=== PATIENT | male | born 1970 | race Two or more races ===

== ENCOUNTER 2023-07-23 13:29 | Outpatient (OUT) | payer OTHER, SELFPAY ==
[2023-07-23 13:59] LABS: Basophils Percent Auto 0.3 % (0.2-2.0); Eosinophils Absolute Auto 0.2 10^3/uL (0.0-0.7); Eosinophils Percent Auto 2.5 % (0.9-7.0); Hematocrit 50.4 % (42.0-54.0); Hemoglobin 16.8 g/dL (14.0-18.0); Immature Granulocytes Abs Auto 0.02 10^3/uL (0.00-0.03); Immature Granulocytes Pct Auto 0.3 % (0.0-0.5); Lymphocytes Absolute Auto 1.4 10^3/uL (1.2-3.8); Lymphocytes Percent Auto 23.2 % (20.5-60.0); Mean Corpuscular HGB Conc 33.3 g/dL (29.9-35.2); Mean Corpuscular Hemoglobin 30.7 pg (25.9-34.0); Mean Platelet Volume 9.9 fL (9.5-13.5); Monocytes Absolute Auto 0.5 10^3/uL (0.3-0.8); Monocytes Percent Auto 7.5 % (1.7-12.0); Neutrophils Absolute Auto 4.1 10^3/uL (1.4-6.5); Neutrophils Percent Auto 66.2 % (43.0-75.0); Platelet Count 231 10^3/uL (150-450); Red Blood Count 5.48 10^6/uL (4.70-6.10); Red Cell Distribution Width 11.9 % (11.0-15.0); White Blood Count 6.1 10^3/uL (4.0-11.0)
[2023-07-23 14:35] LABS: Alanine Aminotransferase 34 U/L (16-63); Albumin Globulin Ratio 0.8; Albumin Level 3.3 g/dL (3.4-5.0); Alkaline Phosphatase 97 U/L (46-116); Anion Gap 7.5; Aspartate Amino Transferase 16 U/L (15-37); BUN Creatinine Ratio 10.1; Bilirubin Total 0.8 mg/dL (0.2-1.0); Calcium 8.5 mg/dL (8.5-10.1); Carbon Dioxide 31.5 mmol/L (21.0-32.0); Chloride 104 mmol/L (98-107); Chol HDL Ratio 4.7; Cholesterol 210 mg/dL (<=200); Estimated GFR (African America >60 (>=60); Estimated GFR (Non-African Ame >60 (>=60); Glucose 91 mg/dL (74-106); HDL Cholesterol 45 mg/dL (40-60); Sodium 139 mmol/L (136-145); TSH W/ REFLEX FT4 1.664 uIU/mL (0.358-3.740); Total Protein 7.3 g/dL (6.4-8.2); Triglycerides 76 mg/dL (<=150); VLDL CHOLESTEROL 15.2 mg/dL
[2023-07-23 14:41] LABS: Prostate Specific Antigen Dx 3.81 ng/mL (<=4.00)
[2023-07-23 15:20] LABS: Bilirubin Urine NEGATIVE (NEGATIVE); Blood Urine TRACE-L (NEGATIVE); Clarity Urine CLEAR (CLEAR); Color Urine LT. YELLOW (YELLOW); Glucose Urine UA NEGATIVE (NEGATIVE); Ketones Urine NEGATIVE (NEGATIVE); Leukocyte Esterase Urine NEGATIVE (NEGATIVE); Nitrite Urine NEGATIVE (NEGATIVE); Protein Urine NEGATIVE (NEG/TRACE); Specific Gravity Urine 1.025 (1.005-1.025); Urobilinogen Urine 0.2 EU/dL (0.2-1.0); pH Urine 6.5 (5.0-9.0)
[2023-07-23 15:26] LABS: Urine Microscopic Indicated YES
[2023-07-23 15:39] LABS: Mucus Urine NONE SEEN (NONE SEEN); Squamous Epithelial Cell Urine RARE #/LPF (NONE/RARE)
[2023-07-23 15:40] LABS: Bacteria Urine TRACE #/HPF (NONE SEEN); Cast Seen? NONE SEEN #/LPF (NONE SEEN); Crystals Seen? None Seen #/HPF (None Seen); Sperm Urine SEEN
[2023-07-25 04:07] LABS: PSA, Free 1.04 ng/mL; Prostate Specific Ag 3.5 ng/mL (0.0-4.0)
== END 2023-07-23 13:30 | disposition home or self-care (01) ==
LOC: LAB 13:29
PROVIDERS: PCP Nurse Practitioner; Visit Provider Nurse Practitioner
DX: Z12.5 Encounter for screening for malignant neoplasm of prostate (principal); E78.2 Mixed hyperlipidemia; Z72.0 Tobacco use; F31.9 Bipolar disorder, unspecified; R97.20 Elevated prostate specific antigen [PSA]
CPT/HCPCS: 36415; 80053; 80061; 81001; 84153; 84154; 84443; 85025

== ENCOUNTER 2023-09-18 12:42 | Outpatient (OUT) | payer OTHER, SELFPAY ==
--- OUTSIDE RECORDS SUMMARY | 2023-09-18 13:10 | XMS_ITS | CCD ---
Author Name Unknown Address [address] [place] [address] Organization [facility] Care Team Providers Care Surveillance Dual Rate Officer Name Role Phone KINJAL CHEW Unavailable Unavailable KINJAL CHEW Unavailable Unavailable Shobha Brooklynn J Primary Care Provider MD Hernandez Lares Jr Emergency Provider AICHHOLZ, LINE LEAD BROOKLYNN Attending Unavailable AICHHOLZ, LINE LEAD BROOKLYNN Consulting Unavailable AICHHOLZ, LINE LEAD BROOKLYNN Primary Care Unavailable AICHHOLZ, LINE LEAD BROOKLYNN Admitting Unavailable AICHHOLZ, LINE LEAD BROOKLYNN Attending Unavailable AICHHOLZ, LINE LEAD BROOKLYNN Consulting Unavailable AICHHOLZ, LINE LEAD BROOKLYNN Primary Care Unavailable AICHHOLZ, LINE LEAD BROOKLYNN Admitting Unavailable AICHHOLZ, LINE LEAD BROOKLYNN Primary Care Unavailable MISC, DOCTOR Attending Unavailable MISC, DOCTOR Consulting Unavailable MISC, DR QUIGLEY Admitting Unavailable Aichgavin, Brooklynn J Primary Care Provider MD Hernandez Lares Jr Emergency Provider MD Kevin Sheehan Attending Provider Kevin Sheehan Admitting Unavailable Kevin Sheehan Attending Unavailable Brooklynn Yeager Primary Care Unavailable Shobha Brooklynn Adi Primary Care Unavailable Hernandez Lares Jr Admitting Unavailable Hernandez Lares Jr Attending Unavailable Kevin Sheehan Admitting Unavailable Kevin Sheehan Attending Unavailable SHOBHA, BROOKLYNN Attending Unavailable Aichholz BEHAVIOR ANALYST, Brooklynn Unavailable Eusebio Schneider MD Primary Care Provider [phone] Shobha POUNCING LATHE OPERATOR-LINE LEAD, Brooklynn Joshi Primary Care Provider LIDA SUH Attending Unavailable BROOKLYNN YEAGER Primary Care Unavailable LIDA SUH Referring Unavailable BROOKLYNN YEAGER Primary Care Unavailable Allergies Allergy Classification Reported Allergen(s) Allergy Type Date of Onset Reaction(s) Facility (4 sources) Acetaminophen; Translations: [acetaminophen] Drug Allergy 09-04-19 23 Gastrointestinal Upset [facility] (6 sources) HYDROcodone; Translations: [hydrocodone] Drug Allergy 09-04-19 23 GI intolerance [facility] (1 source) Acetaminophen / HYDROcodone Drug Allergy [facility] (4 sources) Acetaminophen / HYDROcodone; Translations: [HYDROCODONE-ACET AMINOPHEN] Drug Allergy 09-04-19 24 [facility] [employer] [employer] [facility] Medications Current Medications Medication Drug Class(es) Dates Sig (Normalized) Sig (Original) atorvastatin 10 mg oral tablet (3 sources) HMG-CoA Reductase Inhibitor Start: 07-29-2023 End: 09-26-2023 take 1 tablet by mouth in the evening atorvastatin (Lipitor) 10 MG tablet Indications: Mixed hyperlipidemia (CMS/HCC) Take 1 tablet (10 mg) by mouth in the evening 30 tablet 2 08/27/2023 09/26/2023 Active citalopram 20 mg oral tablet (6 sources) Serotonin Reuptake Inhibitor Start: 08-21-2023 End: 11-19-2023 take 1 tablet by mouth in the morning citalopram (CeleXA) 20 mg tablet Take 1 tablet (20 mg total) by mouth in the morning. 0 08/21/2023 11/19/2023 Active Start: 10-22-2022 take 1 tablet by esau th once daily in the morning Citalopram (Celexa) 10 mg tablet Active 10 MG PO Every morning October 22, 2022 12:00am lamoTRIgine 100 mg oral tablet (6 sources) Mood Stabilizer, Anti-epileptic Agent Start: 05-21-2023 End: 11-19-2023 take 1 tablet by mouth in the morning lamoTRIgine (LaMICtal) 100 mg tablet Take 1 tablet (100 mg total) by mouth in the morning. 0 08/21/2023 11/19/2023 Active Start: 10-22-2022 take 1 tablet by esau th twice daily Lamotrigine (Lamictal) 25 mg tablet Active 25 MG PO Twice daily October 22, 2022 12:00am zolpidem tartrate 5 mg oral tablet (2 sources) gamma-Aminobutyric Acid-ergic Agonist Start: 07-24-2022 zolpidem (Ambien) 5 MG tablet Take 1 tablet by mouth as needed at bedtime 0 07/24/2022 Active Completed/Discontinued Medications Medication Drug Class(es) Dates Sig (Normalized) Sig (Original) acetaminophen 325 mg / oxyCODONE hydrochloride 5 mg oral tablet (3 sources) Opioid Agonist Start: 04-04-2020 End: 10-22-2022 take 1 tablet by mouth every six hours Oxycodone-Acetamin ophen Discontinued 1 TAB PO Q6H 28 7 April 04, 2020 October 22, 2022 2:09pm polyethylene glycol 3350 83098 mg powder for oral solution (3 sources) Osmotic Laxative Start: 09-05-2022 End: 10-22-2022 Polyethylene Glycol 3350 (Miralax) 17 gram/dose powder Discontinued 17 GM PO Daily 510 September 05, 2022 1:00am October 22, 2022 2:09pm Problems Active Problems Problem Classification Problem Date Documented Da te Episodic/Chronic Biliary tract disease (9 sources) Calculus of gallbladder with acute cholecystitis; Translations: [Calculus of gallbladder with acute cholecystitis without obstruction] 04-04-2020 Episodic Conditions associated with dizziness or vertigo (1 source) Dizziness and giddiness; Translations: [Dizziness and giddiness] Onset: 09-05-2022 Episodic Disorders of lipid metabolism (5 sources) Hyperlipidemia; Translations: [Hyperlipidemia, unspecified] Onset: 07-22-2023 07-22-2023 Chronic Diverticulosis and diverticulitis (2 sources) Diverticulitis; Translations: [Diverticulitis of intestine, part unspecified, without perforation or abscess without bleeding] Onset: 06-26-2023 06-26-2023 Chronic Genitourinary symptoms and ill-defined conditions (7 sources) Microscopic hematuria; Translations: [Other microscopic hematuria] Onset: 07-29-2023 07-29-2023 Episodic Intestinal obstruction without hernia (3 sources) Intussusception of intestine; Translations: [Intussusception] 04-04-2020 Episodic Malaise and fatigue (3 sources) Fatigue; Translations: [Other fatigue] 09-05-2022 Episodic Mood disorders (3 sources) Bipolar disorder; Translations: [Bipolar disorder, unspecified] Onset: 07-22-2023 08-21-2023 Chronic Other and unspecified benign neoplasm (1 source) Polyp of colon; Translations: [Polyp of colon] Onset: 10-03-2022 Episodic Other gastrointestinal disorders (3 sources) Constipation; Translations: [Constipation, unspecified] 09-05-2022 Episodic Other gastrointestinal disorders (2 sources) Chronic constipation; Translations: [Other constipation] Onset: 08-21-2023 08-21-2023 Episodic Other lower respiratory disease (3 sources) Snoring; Translations: [Snoring] 09-05-2022 Episodic Other screening for suspected conditions (not mental disorders or infectious disease) (12 sources) Encounter for screening, unspecified; Translations: [Patient encounter status] Onset: 09-18-2022 Episodic Other skin disorders (2 sources) Multiple skin tags; Translations: [Other hypertrophic disorders of the skin] Onset: 07-22-2023 07-22-2023 Episodic Residual codes; unclassified (3 sources) Daytime somnolence; Translations: [Other hypersomnia] 09-05-2022 Chronic Residual codes; unclassified (2 sources) Tobacco user; Translations: [Tobacco use] Onset: 07-22-2023 07-22-2023 Episodic Spondylosis; intervertebral disc disorders; other back problems (2 sources) Degeneration of lumbar intervertebral disc; Translations: [Other intervertebral disc degeneration, lumbar region] Onset: 08-21-2023 08-21-2023 Chronic Unclassified (3 sources) CONTACT W/AND (SUSP) EXPOS COVID-19; Translations: [CONTACT W/AND (SUSP) EXPOS COVID-19] Onset: 11-06-2021 Unclassified (1 source) Elevated PSA Onset: 09-04-2023 Past or Other Problems Problem Classification Problem Date Documented Da te Episodic/Chronic Other nutritional; endocrine; and metabolic disorders (4 sources) Polydipsia; Translations: [POLYDIPSIA] Onset: 03-08-2022 Episodic Unclassified (1 source) CONTACT W/AND (SUSP) EXPOS COVID-19; Translations: [CONTACT W/AND (SUSP) EXPOS COVID-19] Onset: 11-03-2021 Results Test Name Value Interpretation Reference Range Facility Cytologyon 09-04-2023 Cytology Normal [facility] Comment on above: Result Comment: [facility] [address] [place] [address] Cytology Consultation Patient Name:EBER ABREUOB:1970 (Age: 52)Gender:MTaken:4Reported:09/06/2023 18:36Physician(s):Lida Suh M.D. ([phone])Copy To: Rec. #:[id number]: #[id number] Final Cytologic Diagnosis Urine: Negative for high-grade urothelial cell carcinoma. ssi/09/06/2023 Interpretation performed at [facility], [address] [place] [address], License number: [id number].Electronically Signed Out By Brandt Rosas M.D. Clinical History Hematuria, microscopic (R31.29). Gross Description Received was 70 mL of yellow fluid unfixed labeled as [place], urine . CytoLyt added in lab. Source of Specimen Urine Non FARE COLLECTOR ThinPrep Fee Code(s): 1; 34839 Ruben 10-22-2022 L Specimen: [id number] Received: 10/22/22 Status: [facility] Sylvia Num: [id number] Spec Type: Surgical Subm Dr: Kevin Sheehan MD Tissues: A Lipoma (RIGHT FOREARM MASS) B Lipoma (RIGHT THIGH MASS) C Lipoma (LEFT THIGH MAS) Procedures: HE/3, Gross/Micro L3/3 Age/ Patient Sex Location Account Attending Physician Reno Abreu/M [place] [id number] Kevin Sheehan MD SPEC NUM: [id number] RECD: 10/22/22 STATUS: [facility] WARD NUM: [id number] ABBY: 10/22/22- [facility] DR: Kevin Sheehan MD ENTERED: 10/22/[address] [facility] [address]: RASHMI TYPE: Surgical DEPT: S ENTERED BY: [id number] RECV BY: [id number] ORDERED: HE/3, Gross/Micro L3/3 ORDERED: HE/3, Gross/Micro L3/3 Pathological Diagnosis A. Soft tissue, right forearm, mass, excision: - Changes consistent with lipoma. B. Soft tissue, right thigh, mass, excision: - Changes consistent with lipoma. C. Soft tissue, left thigh, mass, excision: - Changes consistent with lipoma. Clinical Information Multiple masses Gross Description A. Received in formalin labeled with the patient's name, number and right forearm mass is a 3.3 x 2.5 x 1.4 cm portion of yellow, lobular fat that is partially surface by a thin, translucent membrane. The specimen is inked and sectioned revealing a homogeneous, yellow- mosqueda cut surface. Gasket Supervisor sections are submitted in one cassette labeled A1. B. Received in formalin labeled with the patient's name, number and right thigh mass is a 3.5 x 3.5 x 1.6 cm portion of yellow, lobular fat that is partially surfaced by a thin, translucent membrane. The specimen is inked and sectioned revealing a homogeneous, yellow- Specimen: [id number] Received: 10/22/22 Status: [facility] Bassettflorencio Num: [id number] Spec Type: Surgical Subm Dr: Kevin Sheehan MD Tissues: A Lipoma (RIGHT FOREARM MASS) B Lipoma (RIGHT THIGH MASS) C Lipoma (LEFT THIGH MAS) Procedures: HE/3, Gross/Micro L3/3 Patient: Reno Abreu [id number] (Continued) Specimen: Received: 10/22/22 (Continued) Gross Description (Continued) Signed (signatur e on file) Eli New MD 10/23/22 1426 Specimen: Received: 10/22/22 Status: [facility] Ward Num: [id number] Spec Type: Surgical Subm Dr: Kevin Sheehan MD Tissues: A Lipoma (RIGHT FOREARM MASS) B Lipoma (RIGHT THIGH MASS) C Lipoma (LEFT THIGH MAS) Procedures: HE/3, Gross/Micro L3/3 Patient: Reno Abreu E [id number] (Continued) Specimen: Received: 10/22/22 (Continued) Gross Description (Continued) mosqueda cut surface. Gasket Supervisor sections are submitted in one cassette labeled B1. C. Received in formalin labeled with the patient's name, number and left thigh mass is a 5.5 x 3.0 x 2.1 cm portion of yellow, lobular fat that is partially surface by a thin, translucent membrane. The specimen is inked and sectioned revealing a homogeneous, yellow- mosqueda cut surface. Gasket Supervisor sections are submitted in one cassette labeled C1. Microscopic Description A. One glass slide with H E stained material has been examined. The microscopic findings support the above pathologic diagnosis. B. One glass slide with H E stained material has been examined. The microscopic findings support the above pathologic diagnosis. C. One glass slide with H E stained material has been examined. The microscopic findings support the above pathologic diagnosis. CPT Codes 10447?3 Specimen: [id number] Received: 10/22/22 Status: [facility] Ward Num: [id number] Spec Type: Surgical Subm Dr: Kevin Sheehan MD Tissues: A Lipoma (RIGHT FOREARM MASS) B Lipoma (RIGHT THIGH MASS) C Lipoma (LEFT THIGH MAS) Procedures: HE/3, Gross/Micro L3/3 (more content not included)... [facility] Ruben 10-03-2022 L Specimen: Received: 10/04/22 Status: [facility] Sylvia Num: [id number] Spec Type: Surgical Subm Dr: Kevin Sheehan MD Tissues: A Colon Biopsy (TRANSVERSE POLYP) Procedures: HE/2, Gross/Micro L4 Age/ Patient Sex Location Account Attending Physician Reno Abreu/Stefano MERINO [id number] Kevin Sheehan MD SPEC NUM: [id number] RECD: 10/04/22 STATUS: [facility] SYLVIA NUM: [id number] ABBY: 10/03/22- [facility] DR: Kevin Sheehan MD ENTERED: 10/04/[address]: [facility] SPEC TYPE: Surgical DEPT: S ORDERED: HE/2, Gross/Micro L4 ORDERED: HE/2, Gross/Micro L4 Pathological Diagnosis Colon, transverse, polyp, biopsy: - Fragments of tubulovillous adenoma. Clinical Information Family history of colon cancer Gross Description Received in formalin labeled with the patient's name, number and transverse polyp are multiple fragments of soft mosqueda tissue measuring 2.7 x 2.0 x 0.7 cm in aggregate. Entirely submitted in one cassette labeled A1. Microscopic Description Two glass slides with H E stained material have been examined. The microscopic findings support the above pathologic diagnosis. CPT Codes 47448 Specimen: [id number] Received: 10/04/22 Status: [facility] Ward Num: [id number] Spec Type: Surgical Subm Dr: Kevin Sheehan MD Tissues: A Colon Biopsy (TRANSVERSE POLYP) Procedures: HE/2, Gross/Micro L4 Patient: Reno Abreu [id number] (Continued) Signed (signatur e on file) Eli New MD 10/05/22 1132 Normal [facility] BOX TEST SENT OUTon 09-19-19 SENT TO REF LAB 09/18/2022 Normal [facility] Comment on above: Performed By: #### B OX #### [facility] [address] [place] [address] Dr. Pablo Blanchard COVID-19 / Flu A/B / RSV PCR on 09-05-2022 SARS-CoV-2 (COVID-19) RNA NANCIE+probe Ql (Unsp spec) COVID-19 Cepheid Result Negative for SARS-CoV-2 RNA by RT-PCR Flu A Cepheid Result Negative for Flu A RNA by RT-PCR Flu B Cepheid Result Negative for Flu B RNA by RT-PCR RSV Cepheid Result Negative for RSV RNA by RT-PCR COVID19 Blank Space Reference: Negative COVID19 Blank Space Cepheid Disclaimer The Cepheid Xpert Xpress CoV-2/Flu/RSV Plus has Cepheid Disclaimer not been FDA cleared or approved; this test has Cepheid Disclaimer been authorized by FDA under an EUA for use by Cepheid Disclaimer authorized laboratories; this test has been Cepheid Disclaimer authorized only for the simultaneous qualitative Cepheid Disclaimer detection and differentiation of nucleic acids from Cepheid Disclaimer SARS-CoV-2, influenza A, influenza B, and Cepheid Disclaimer respiratory syncytial virus (RSV), and not for any Cepheid Disclaimer other viruses or pathogens; and this test is only Cepheid Disclaimer authorized for the duration of the declaration that Cepheid Disclaimer circumstances exist justifying the authorization of Cepheid Disclaimer emergency use of in vitro diagnostic tests for Cepheid Disclaimer detection and/or diagnosis of COVID-19 under Cepheid Disclaimer Section 564(b)(1) of the Act, 21 U.S.C. 360bbb- Cepheid Disclaimer 3(b)(1), unless the authorization is terminated or Cepheid Disclaimer revoked sooner. PERFORMED BY: [place] [address] PATHOLOGIST RESIDENT MEDICAL OFFICER HIRNE KAPLAN M.D. Normal [facility] Comment on above: Performed By: #### C OVID19 FLU RSV, CEPHEID NEG #### [place] [id number] [facility] Cepheid COVID PCR Negativeon 09-05-2022 SARS-CoV-2 (COVID-19) RNA NANCIE+probe Ql (Unsp spec) Negative Normal Negative [facility] Comment on above: Result Comment: This is a duplicate Cepheid Xpert Xpress CoV-2/Flu/RSV Plus RNA by RT-PCR result to be used for statistical tracking purpose only. PERFORMED BY: [place] [address] PATHOLOGIST RESIDENT MEDICAL OFFICER HIREN KAPLAN M.D. Performed By: #### C OVID19 FLU RSV, CEPHEID NEG #### [place] [id number] [facility] Complete Blood Count Auto Di ffon 09-05-2022 Basophils (Bld) [#/Vol] 0.1 10*3/uL Normal 0.0-0.2 [facility] Comment on above: Result Comment: PERF ORMED BY: [place] [address] PATHOLOGIST RESIDENT MEDICAL OFFICER HIREN KAPLAN M.D. Performed By: #### C KMB, HS TROP, CBC, CK, CMP #### [address] Basophils/100 WBC (Bld) 0.7 % Normal . F [facility] Comment on above: Performed By: #### C KMB, HS TROP, CBC, CK, CMP #### [address] Eosinophils (Bld) [#/Vol] 0.2 10*3/uL Normal 0.0-0.45 [facility] Comment on above: Performed By: #### C KMB, HS TROP, CBC, CK, CMP #### [address] Eosinophils/100 WBC (Bld) 2.5 % Normal . [facility] Comment on above: Performed By: #### C KMB, HS TROP, CBC, CK, CMP #### [address] Erythrocyte distribution width (RBC) [Ratio] 13.1 % Normal 12.0-14.8 [facility] Comment on above: Performed By: #### C KMB, HS TROP, CBC, CK, CMP #### [address] Hematocrit (Bld) [Volume fraction] 45.8 % Normal 38.8-50.0 [facility] Comment on above: Performed By: #### C KMB, HS TROP, CBC, CK, CMP #### [address] Hemoglobin (Bld) [Mass/Vol] 15.6 g/dL Normal 13.0-17.0 [facility] Comment on above: Performed By: #### C KMB, HS TROP, CBC, CK, CMP #### [address] Lymphocytes (Bld) [#/Vol] 2.2 10*3/uL Normal 1.00-4.8 [facility] Comment on above: Performed By: #### C KMB, HS TROP, CBC, CK, CMP #### [address] Lymphocytes/100 WBC (Bld) 26.2 % Normal . [facility] Comment on above: Performed By: #### C KMB, HS TROP, CBC, CK, CMP #### [address] MCH (RBC) [Entitic mass] 30.7 pg Normal 27.5-35.2 [facility] Comment on above: Performed By: #### C KMB, HS TROP, CBC, CK, CMP #### [address] MCV (RBC) [Entitic vol] 89.9 fL Normal 83.5-101 F [facility] Comment on above: Performed By: #### C KMB, HS TROP, CBC, CK, CMP #### [address] Mean Corpuscular HGB Conc 34.1 g/dL Normal 32.5-35.6 [facility] Comment on above: Performed By: #### C KMB, HS TROP, CBC, CK, CMP #### [address] Monocytes (Bld) [#/Vol] 0.7 10*3/uL Normal 0.0-0.8 [facility] Comment on above: Performed By: #### C KMB, HS TROP, CBC, CK, CMP #### [address] Monocytes/100 WBC (Bld) 16.89 % Normal 0.00-20.00 [facility] Comment on above: Performed By: #### C KMB, HS TROP, CBC, CK, CMP #### [address] Monocytes/100 WBC (Bld) 8.1 % Normal . [facility] Comment on above: Performed By: #### C KMB, HS TROP, CBC, CK, CMP #### [facility] [address] Neutrophils (Bld) [#/Vol] 5.1 10*3/uL Normal 1.8-7.7 [facility] Comment on above: Performed By: #### C KMB, HS TROP, CBC, CK, CMP #### [address] Neutrophils/100 WBC (Bld) 62.5 % Normal . [facility] Comment on above: Performed By: #### C KMB, HS TROP, CBC, CK, CMP #### [address] NRBC% 0.1 /100{WBC} Normal 0-0.5 [facility] Comment on above: Performed By: #### C KMB, HS TROP, CBC, CK, CMP #### [address] Platelet mean volume (Bld) [Entitic vol] 7.8 fL Normal 6.6-10.1 [facility] Comment on above: Performed By: #### C KMB, HS TROP, CBC, CK, CMP #### [address] Platelets (Bld) [#/Vol] 224 10*3/uL Normal 150-450 [facility] Comment on above: Performed By: #### C KMB, HS TROP, CBC, CK, CMP #### [address] RBC (Bld) [#/Vol] 5.09 10*6/uL Normal 3.90-5.60 [facility] Comment on above: Performed By: #### C KMB, HS TROP, CBC, CK, CMP #### [address] WBC (Bld) [#/Vol] 8.2 10*3/uL Normal 4.1-10.5 [facility] Comment on above: Performed By: #### C KMB, HS TROP, CBC, CK, CMP #### [facility] [address] Comprehensive Metabolic Pane ruben 09-05-2022 Albumin [Mass/Vol] 3.6 g/dL Normal 3.2-5.5 [facility] Comment on above: Performed By: #### C KMB, HS TROP, CBC, CK, CMP ####[facility] Albumin/Globulin [Mass ratio] 1.2 {ratio} Normal [facility] Comment on above: Performed By: #### C KMB, HS TROP, CBC, CK, CMP ####[address] ALP [Catalytic activity/Vol] 85 U/L Normal 32-92 [facility] Comment on above: Performed By: #### C KMB, HS TROP, CBC, CK, CMP ####[address] ALT [Catalytic activity/Vol] 26 U/L Normal 10-60 [facility] Comment on above: Performed By: #### C KMB, HS TROP, CBC, CK, CMP ####[address] Anion gap [Moles/Vol] 15.6 mmol/L High 6.0-15.0 [facility] Comment on above: Performed By: #### C KMB, HS TROP, CBC, CK, CMP ####[address] AST [Catalytic activity/Vol] 22 U/L Normal 10-42 [facility] Comment on above: Performed By: #### C KMB, HS TROP, CBC, CK, CMP ####[address] Bilirubin [Mass/Vol] 0.6 mg/dL Normal 0.3-1.2 [facility] Comment on above: Performed By: #### C KMB, HS TROP, CBC, CK, CMP ####[address] [address] [facility] Calcium [Mass/Vol] 8.8 mg/dL Normal 8.2-10.2 [facility] Comment on above: Performed By: #### C KMB, HS TROP, CBC, CK, CMP ####[place] [id number] [place] [id number] [facility] Chloride [Moles/Vol] 101 mmol/L Normal 95-114 [facility] Comment on above: Performed By: #### C KMB, HS TROP, CBC, CK, CMP ####[place] [id number] [place] [id number] [facility] CO2 [Moles/Vol] 25.4 mmol/L Normal 22.0-30.0 [facility] Comment on above: Performed By: #### C KMB, HS TROP, CBC, CK, CMP ####[place] [id number] [facility] Creatinine [Mass/Vol] 1.01 mg/dL Normal 0.64-1.27 [facility] Comment on above: Performed By: #### C KMB, HS TROP, CBC, CK, CMP ####[address] Creatinine Clr Calc Pharmacy 116.51 [facility] Comment on above: Result Comment: PERF ORMED BY: [facility] [address] [facility] [place] [address] PATHOLOGIST RESIDENT MEDICAL OFFICER HIREN KAPLAN M.D. Performed By: #### C KMB, HS TROP, CBC, CK, CMP ####[place] [id number] [facility] Estimated GFR ( Tamara > 60 [facility] Comment on above: Result Comment: GFR estimated reference range: According to KDOQI guidelines, <60 ml/min/1.73m2 is sufficient to diagnose a patient with chronic kidney disease. Performed By: #### C KMB, HS TROP, CBC, CK, CMP ####[address] Estimated GFR (Non- Am > 60 [facility] Comment on above: Performed By: #### C KMB, HS TROP, CBC, CK, CMP ####[place] [id number] [facility] Globulin (S) [Mass/Vol] 2.9 g/dL Normal F [facility] Comment on above: Performed By: #### C KMB, HS TROP, CBC, CK, CMP ####[place] [id number] [facility] Glucose [Mass/Vol] 99 mg/dL Normal 70-100 [facility] Comment on above: Result Comment: [facility] Glucose Reference Range is dependent on time and content of last meal. Glucose of more than 200 mg/dL in a nonstressed, ambulatory subject supports the diagnosis of Diabetes Mellitus. ADA recommended reference range Performed By: #### C KMB, HS TROP, CBC, CK, CMP ####[address] Potassium [Moles/Vol] 4.0 mmol/L Normal 3.5-5.1 [facility] Comment on above: Performed By: #### C KMB, HS TROP, CBC, CK, CMP ####[place] [id number] [facility] Protein [Mass/Vol] 6.5 g/dL Normal 6.1-7.9 [facility] Comment on above: Performed By: #### C KMB, HS TROP, CBC, CK, CMP ####[place] [id number] [facility] Sodium [Moles/Vol] 138 mmol/L Normal 136-146 [facility] Comment on above: Performed By: #### C KMB, HS TROP, CBC, CK, CMP ####[place] [id number] [facility] Urea nitrogen [Mass/Vol] 13 mg/dL Normal 9-23 [facility] Comment on above: Performed By: #### C KMB, HS TROP, CBC, CK, CMP ####[place] [id number] [facility] Creatine Kinaseon 09-05-2022 CK [Catalytic activity/Vol] 72 U/L Normal 22-269 [facility] Comment on above: Performed By: #### C KMB, HS TROP, CBC, CK, CMP #### [facility] [address] [place] [id number] [place] Creatinine Kinase MBon 09-05 CK.MB [Mass/Vol] 0.7 ng/mL Normal 0.6-6.3 [facility] [facility] Comment on above: Performed By: #### C KMB, HS TROP, CBC, CK, CMP #### [facility] [address] CKMB Relative Index 0.9 % Normal 0.00-2.50 [facility] Comment on above: Performed By: #### C KMB, HS TROP, CBC, CK, CMP #### [facility] [address] Dipstick and Microscopicon 0 09-05-2022 Appearance (U) Clear Normal Clear [facility] Comment on above: Order Comment: Name Collection Type:: Clean-Voided Midstream Performed By: #### A DDONUAPLUS ####[address] Bacteria,Urine None Seen Normal None Seen [facility] Comment on above: Order Comment: Name Collection Type:: Clean-Voided Midstream Performed By: #### A DDONUAPLUS ####[place] [address] [place] Bilirubin,Urine Negative Normal Negative [facility] Comment on above: Order Comment: Name Collection Type:: Clean-Voided Midstream Performed By: #### A DDONUAPLUS ####[place] [id number] [place] Color (U) Yellow Normal Yellow [facility] Comment on above: Order Comment: Name Collection Type:: Clean-Voided Midstream Performed By: #### A DDONUAPLUS ####[place] [id number] [place] Glucose Ql (U) Normal Normal Normal [facility] Comment on above: Order Comment: Name Collection Type:: Clean-Voided Midstream Performed By: #### A DDONUAPLUS ####[address] [address] [place] Hyaline Casts,Urine None Seen Normal 0-8 [facility] Comment on above: Order Comment: Name Collection Type:: Clean-Voided Midstream Performed By: #### A DDONUAPLUS ####[address] [address] [facility] Ketones Ql (U) Trace High Negative [facility] Comment on above: Order Comment: Name Collection Type:: Clean-Voided Midstream Performed By: #### A DDONUAPLUS ####[address] [address] [facility] Leukocyte esterase Test strip Ql (U) Negative Normal Negative [facility] Comment on above: Order Comment: Name Collection Type:: Clean-Voided Midstream Performed By: #### A DDONUAPLUS ####[address] [address] [facility] Nitrite,Urine Negative Normal Negative [facility] Comment on above: Order Comment: Name Collection Type:: Clean-Voided Midstream Performed By: #### A DDONUAPLUS ####[address] [address] [facility] Occult Blood,Urine Negative Normal Negative [facility] Comment on above: Order Comment: Name Collection Type:: Clean-Voided Midstream Result Comment: PERF ORMED BY: [facility] [address] [place] [phone] PATHOLOGIST RESIDENT MEDICAL OFFICER HIREN KAPLAN M.D. Performed By: #### A DDONUAPLUS ####[address] [address] [facility] pH (U) 6.0 [pH] Normal 5.0-9.0 [facility] Comment on above: Order Comment: Name Collection Type:: Clean-Voided Midstream Performed By: #### A DDONUAPLUS ####[place] [id number] [facility] Protein (U) [Mass/Vol] 100 mg/dL High Negative [facility] Comment on above: Order Comment: Name Collection Type:: Clean-Voided Midstream Performed By: #### A DDONUAPLUS ####[place] [address] [place] [address] [facility] RBC,Urine 3-4 Normal 0-4 [facility] Comment on above: Order Comment: Name Collection Type:: Clean-Voided Midstream Performed By: #### A DDONUAPLUS ####[address] [address] [facility] Specificy Forest,Urine 1.027 Normal 1.001-1.030 [facility] Comment on above: Order Comment: Name Collection Type:: Clean-Voided Midstream Performed By: #### A DDONUAPLUS ####[address] [address] [facility] Sperm,Urine 3-4 High 0-2 [facility] Comment on above: Order Comment: Name Collection Type:: Clean-Voided Midstream Result Comment: PERF ORMED BY: [facility] [address] [place] [address] PATHOLOGIST RESIDENT MEDICAL OFFICER HIREN KAPLAN M.D. Performed By: #### A DDONUAPLUS ####[address] [address] [facility] Squamous Epithelial Cell,Urine None Seen Normal 0-2 [facility] Comment on above: Order Comment: Name Collection Type:: Clean-Voided Midstream Performed By: #### A DDONUAPLUS ####[address] [address] [facility] Urobilinogen,Urine Normal Normal Normal [facility] Comment on above: Order Comment: Name Collection Type:: Clean-Voided Midstream Performed By: #### A DDONUAPLUS ####[address] [address] [facility] WBC,Urine 3-4 Normal 0-4 [facility] Comment on above: Order Comment: Name Collection Type:: Clean-Voided Midstream Performed By: #### A DDONUAPLUS ####[facility] [place] [id number] [place] ECG 12 lead ECGon 09-05-2022 ECG 12 lead ECG [facility] [place] [place] [address] Electrocardiograph Report Signed Patient: Reno Abreu MR#: [id number] 5 : 1970 Acct:[id number] Age/Sex: 51 / M ADM Date: 09/04/22 Loc: ER Room: Type: [facility] ER Attending Dr: Ordering Provider: Hernandez Lares Jr, MD Date of Service: 09/04/22 ECG/ECG 12 lead ECG: Dizziness Copies to: Test Reason : Blood Pressure : 123/084 mmHG Vent. Rate : 072 BPM Atrial Rate : 072 BPM P-R Int : 144 ms QRS Dur : 090 ms QT Int : 398 ms P-R-T Axes : 047 -11 016 degrees QTc Int : 435 ms Normal sinus rhythm Low voltage QRS Borderline ECG No previous ECGs available Confirmed by HERNANDEZ LARES MD ([id number]) on 09/05/2022 4:12:57 AM Referred By: Electronically Signed By:HERNANDEZ LARES MD Transcribed By: MUS Signed By Hernandez Lares Jr, MD [id number] Normal [facility] Troponin I High Sensitivityo n 09-05-2022 Troponin I High Sensitivity < 3 Normal 0-20 [facility] Comment on above: Result Comment: PERF ORMED BY: [place] [address] PATHOLOGIST RESIDENT MEDICAL OFFICER HIREN KAPLAN M.D. Performed By: #### C KMB, HS TROP, CBC, CK, CMP #### [facility] [address] [place] [address] XR abdomen min 2Von 09-05-19 23 XR abdomen min 2V [facility] [place] [address] XRay Report Signed Patient: Reno Abreu MR#: [id number] 5 : 1970 Acct:[id number] Age/Sex: 51 / M ADM Date: 09/04/22 Loc: ER Room: Type: [facility] ER Attending Dr: Copies to: Hernandez Lares Jr, MD Ordering Provider: Hernandez Lares Jr, MD Date of Service: 09/04/22 XR/XR abdomen min 2V: constipated, fatigued, occas abd pain KUB. Reason for exam: Fatigue, constipation, abdominal pain. COMPARISON: CT abdomen and pelvis 04/02/2020. FINDINGS: Moderate amount stool burden is seen without evidence of obstruction. No free air. No suspicious urinary tract calcifications. Post cholecystectomy clips. Osseous structures demonstrate degenerative change. XR/XR abdomen min 2V IMPRESSION: Evidence of constipation. No acute process. Impression dictated by: Abilio Padilla Jr., D.O.09/05/2022 8:53 AM Dictation Location: [place] [address] Transcribed By: [facility] 09/05/22 0853 Dictated By: Abilio Padilla Jr, DO 09/05/22 0852 Signed By: 09/05/22 0853 Normal [facility] Aspartate aminotransferase [ Enzymatic activity/volume] in Serum or PlasmaOrdered By: Hernandez Lares on 09-04-2022 AST [Catalytic activity/Vol] 22 U/L 10-42 [facility] Automated erythrocytes count in urine sediment (number/area)Ordered By: Hernandez Lares on 09-04-2022 RBC Auto (Urine sed) [#/Area] 3-4 [HPF] 0-4 [facility] Automated leukocytes count i n urine sediment (number/area)Ordered By: Hernandez Lares on 09-04-2022 WBC Auto (Urine sed) [#/Area] 3-4 [HPF] 0-4 [facility] Basophils Auto (Bld) [#/Vol] Ordered By: Hernandez Lares on 09-04-2022 Basophils (Bld) [#/Vol] 0.1 10*3/uL 0.0-0.2 [facility] Basophils/100 WBC Auto (Bld) Ordered By: Hernandez Lares on 09-04-2022 Basophils/100 WBC (Bld) 0.7 % . [facility] Bilirubin Test strip Ql (U)O rdered By: Hernandez Lares on 09-04-2022 Bilirubin Ql (U) Negative Negative [facility] Body fluid albumin measureme nt (mass/volume)Ordered By: Hernandez Lares on 09-04-2022 Albumin (Body fld) [Mass/Vol] 3.6 g/dL 3.2-5.5 [facility] COVID CepheidOrdered By: Chapo roseanne Arnaud on 09-04-2022 SARS-CoV-2 (COVID-19) Ab IA Ql Negative Negative [facility] Comment on above: This is a duplicate dotCloud Xpert Xpress CoV-2/Flu/RSV Plus RNA by RT-PCR result to be used for statistical tracking purpose only. SARS-CoV-2 (COVID-19) RNA NANCIE+probe Ql (Unsp spec) [facility] SARS-CoV-2 (COVID-19) RNA NANCIE+probe Ql (Unsp spec) [facility] Color Auto (U)Ordered By: Brandon bowenssaba Arnaud on 09-04-2022 Color (U) Yellow Yellow [facility] Creatine kinase [Enzymatic a ctivity/volume] in Serum or PlasmaOrdered By: Hernandez Lares on 09-04-2022 CK [Catalytic activity/Vol] 72 U/L [facility] Creatine kinase.MB [Mass/vol ume] in Serum or PlasmaOrdered By: Hernandez Lares on 09-04-2022 CK.MB [Mass/Vol] 0.7 ng/mL 0.6-6.3 [facility] Creatinine and Glomerular fi ltration rate.predicted panel (S/P/Bld)Ordered By: Hernandez Lares on 09-04-2022 Creatinine [Mass/Vol] 1.01 mg/dL 0.64-1.27 [facility] Eosinophils Auto (Bld) [#/Vo l]Ordered By: Hernandez Lares on 09-04-2022 Eosinophils (Bld) [#/Vol] 0.2 10*3/uL 0.0-0.45 [facility] Eosinophils/100 WBC Auto (Bl d)Ordered By: Hernandez Lares on 09-04-2022 Eosinophils/100 WBC (Bld) 2.5 % . [facility] Erythrocyte distribution wid th Auto (RBC) [Ratio]Ordered By: Hernandez Lares on 09-04-2022 Erythrocyte distribution width (RBC) [Ratio] 13.1 % 12.0-14.8 [facility] Estimated glomerular filtrat ion rate (GFR) non- AmericanOrdered By: Hernandez Lares on 09-04-2022 GFR/1.73 sq M.predicted among non-blacks MDRD (S/P/Bld) [Vol rate/Area] > 60 mL/Min [facility] Globulin Calc (S) [Mass/Vol] Ordered By: Hernandez Lares on 09-04-2022 Globulin (S) [Mass/Vol] 2.9 g/dL [facility] Hematocrit Auto (Bld) [Volum e fraction]Ordered By: Hernandez Lares on 09-04-2022 Hematocrit (Bld) [Volume fraction] 45.8 % 38.8-50.0 [facility] Hemoglobin [Mass/volume] in BloodOrdered By: Hernandez Lares on 09-04-2022 Hemoglobin (Bld) [Mass/Vol] 15.6 g/dL 13.0-17.0 [facility] Ketones Auto test strip (U) [Mass/Vol]Ordered By: Hernandez Lares on 09-04-2022 Ketones (U) [Mass/Vol] Trace Negative [facility] - UrinalysisOrder ed By: Hernandez Lares on 09-04-2022 Hyaline casts LM Ql (Urine sed) None seen [LPF] 0-8 [facility] Leukocytes [#/volume] correc pooja for nucleated erythrocytes in Blood by Automated counOrdered By: Hernandez Lares on 09-04-2022 WBC corrected for nucl RBC Auto (Bld) [#/Vol] 8.2 10*3/uL 4.1-10.5 [facility] Lymphocytes Auto (Bld) [#/Vo l]Ordered By: Hernandez Lares on 09-04-2022 Lymphocytes (Bld) [#/Vol] 2.2 10*3/uL 1.00-4.8 [facility] Lymphocytes/100 WBC Auto (Bl d)Ordered By: Hernandez Lares on 09-04-2022 Lymphocytes/100 WBC (Bld) 26.2 % . [facility] MCH Auto (RBC) [Entitic mass ]Ordered By: Hernandez Lares on 09-04-2022 MCH (RBC) [Entitic mass] 30.7 pg 27.5-35.2 [facility] MCHC Auto (RBC) [Mass/Vol]Or dered By: Hernandez Lares on 09-04-2022 MCHC (RBC) [Mass/Vol] 34.1 g/dL 32.5-35.6 [facility] MCV Auto (RBC) [Entitic vol] Ordered By: Hernandez Lares on 09-04-2022 MCV (RBC) [Entitic vol] 89.9 fL 83.5-101 [facility] Monocyte distribution width [Entitic volume] in Blood by AutomatedOrdered By: Hernandez Lares on 09-04-2022 Monocyte distribution width Auto (Bld) [Entitic vol] 16.89 % 0.00-20.00 [facility] Monocytes Auto (Bld) [#/Vol] Ordered By: Hernandez Lares on 09-04-2022 Monocytes (Bld) [#/Vol] 0.7 10*3/uL 0.0-0.8 [facility] Monocytes/100 WBC Auto (Bld) Ordered By: Hernandez Lares on 09-04-2022 Monocytes/100 WBC (Bld) 8.1 % . [facility] Neutrophils Auto (Bld) [#/Vo l]Ordered By: Hernandez Lares on 09-04-2022 Neutrophils (Bld) [#/Vol] 5.1 10*3/uL 1.8-7.7 [facility] Neutrophils/100 WBC Auto (Bl d)Ordered By: Hernandez Lares on 09-04-2022 Neutrophils/100 WBC (Bld) 62.5 % . [facility] Nitrite Test strip Ql (U)Ord ered By: Hernandez Lares on 09-04-2022 Nitrite Ql (U) Negative Negative [facility] No Panel InformationOrdered By: Hernandez Lares on 09-04-2022 Estimated GFR () > 60 mL/Min [facility] Comment on above: GFR estimated refere nce range: According to KDOQI guidelines, <60 ml/min/1.73m2 is sufficient to diagnose a patient with chronic kidney disease. Pharmacy Creatinine Clearance (Chem 116.51 [facility] Nucleated erythrocytes [Pres ence] in Blood by Automated countOrdered By: Hernandez Lares on 09-04-2022 Nucleated RBC Auto Ql (Bld) 0.1 /100{WBC} 0-0.5 [facility] Platelet mean volume Auto (B ld) [Entitic vol]Ordered By: Hernandez Lares on 09-04-2022 Platelet mean volume (Bld) [Entitic vol] 7.8 fL 6.6-10.1 [facility] Platelets Auto (Bld) [#/Vol] Ordered By: Hernandez Lares on 09-04-2022 Platelets (Bld) [#/Vol] 224 10*3/uL 150-450 [facility] Protein Auto test strip (U) [Mass/Vol]Ordered By: Hernandez Lares on 09-04-2022 Protein (U) [Mass/Vol] 100 mg/dL Negative [facility] Protein [Mass/volume] in Ser um or PlasmaOrdered By: Hernandez Lares on 09-04-2022 Protein [Mass/Vol] 6.5 g/dL 6.1-7.9 [facility] RBC Auto (Bld) [#/Vol]Ordere d By: Hernandez Lares on 09-04-2022 RBC (Bld) [#/Vol] 5.09 10*6/uL 3.90-5.60 [facility] Serum or plasma alanine storey otransferase measurement without P-5'-P (enzymatic activiOrdered By: Hernandez Lares on 09-04-2022 ALT No additional P-5'-P [Catalytic activity/Vol] 26 U/L 10-60 [facility] Serum or plasma albumin/glob ulin mass ratioOrdered By: Hernandez Lares on 09-04-2022 Albumin/Globulin [Mass ratio] 1.2 {ratio} [facility] Serum or plasma alkaline alexandro sphatase measurement (enzymatic activity/volume)Ordered By: Hernandez Lares on 09-04-2022 ALP [Catalytic activity/Vol] 85 U/L 32-92 [facility] Serum or plasma anion gap de terminationOrdered By: Hernandez Lares on 09-04-2022 Anion gap [Moles/Vol] 15.6 mmol/L 6.0-15.0 [facility] Serum or plasma calcium angie urement (mass/volume)Ordered By: Hernandez Lares on 09-04-2022 Calcium [Mass/Vol] 8.8 mg/dL 8.2-10.2 [facility] Serum or plasma chloride rocio surement (moles/volume)Ordered By: Hernandez Lares on 09-04-2022 Chloride [Moles/Vol] 101 mmol/L 95-114 [facility] Serum or plasma creatine kin ase MB (CKMB)/total creatine kinase (CK) ratio by calculaOrdered By: Hernandez Lares on 09-04-2022 CK.MB Calc [Catalytic fraction] 0.9 % 0.00-2.50 [facility] Serum or plasma glucose angie urement (mass/volume)Ordered By: Hernandez Lares on 09-04-2022 Glucose [Mass/Vol] 99 mg/dL 70-100 [facility] Comment on above: ADA recommended refe rence rangeRandom Glucose Reference Range is dependent on time and content of last meal. Glucose of more than 200 mg/dL in a nonstressed, ambulatory subject supports the diagnosis of Diabetes Mellitus. Serum or plasma potassium me asurement (moles/volume)Ordered By: Hernandez Lares on 09-04-2022 Potassium [Moles/Vol] 4.0 mmol/L 3.5-5.1 [facility] Serum or plasma sodium measu rement (moles/volume)Ordered By: Hernandez Lares on 09-04-2022 Sodium [Moles/Vol] 138 mmol/L 136-146 [facility] Serum or plasma total biliru bin measurement (mass/volume)Ordered By: Hernandez Lares on 09-04-2022 Bilirubin [Mass/Vol] 0.6 mg/dL 0.3-1.2 [facility] Serum or plasma total carbon dioxide measurement (moles/volume)Ordered By: Hernandez Lares on 09-04-2022 CO2 [Moles/Vol] 25.4 mmol/L 22.0-30.0 [facility] Serum or plasma urea nitroge n measurement (mass/volume)Ordered By: Hernandez Lares on 09-04-2022 Urea nitrogen [Mass/Vol] 13 mg/dL 9-23 [facility] Specific gravity Auto test s trip (U) [Rel density]Ordered By: Hernandez Lares on 09-04-2022 Specific gravity (U) [Rel density] 1.027 1.001-1.030 [facility] Spermatozoa detection in uri ne sediment by light microscopyOrdered By: Hernandez Laers on 09-04-2022 Spermatozoa LM Ql (Urine sed) 3-4 [HPF] 0-2 [facility] Squamous epithelial cells de tection in urine sediment by light microscopyOrdered By: Hernandez Lares on 09-04-2022 Epithelial cells.squamous LM Ql (Urine sed) None seen [HPF] 0-2 [facility] Troponin I.cardiac [Mass/vol ume] in Serum or Plasma by High sensitivity methodOrdered By: Hernandez Lares on 09-04-2022 Troponin I.cardiac High sensitivity method [Mass/Vol] < 3 pg/mL 0-20 [facility] Urine bacteria detection by automated methodOrdered By: Hernandez Lares on 09-04-2022 Bacteria Auto Ql (U) None seen None Seen [facility] Urine clarity by refractomet ry automatedOrdered By: Hernandez Lares on 09-04-2022 Clarity Refractometry automated (U) Clear Clear [facility] Urine glucose measurement by automated test strip (mass/volume)Ordered By: Hernandez Lares on 09-04-2022 Glucose Auto test strip (U) [Mass/Vol] Normal mg/dL Normal [facility] Urine hemoglobin detection b y automated test stripOrdered By: Hernandez Lares on 09-04-2022 Hemoglobin Auto test strip Ql (U) Negative Negative [facility] Urine leukocyte esterase det ection by automated test stripOrdered By: Hernandez Lares on 09-04-2022 Leukocyte esterase Auto test strip Ql (U) Negative Negative [facility] Urobilinogen Auto test strip (U) [Mass/Vol]Ordered By: Hernandez Lares on 09-04-2022 Urobilinogen (U) [Mass/Vol] Normal mg/dL Normal [facility] WBC Auto (Bld) [#/Vol]Ordere d By: Hernandez Lares on 09-04-2022 WBC (Bld) [#/Vol] 8.2 10*3/uL 4.1-10.5 [facility] pH Auto test strip (U)Ordere d By: Hernandez Lares on 09-04-2022 pH (U) 6.0 [pH] 5.0-9.0 [facility] CBC AUTO DIFFon 03-08-2022 BASO # 0.0 103/ul Normal 0.0-0.1 [facility] Comment on above: Performed By: #### C BC #### [facility] [address] [place] [address] Dr. Pablo Blanchard Basophils/100 WBC (Bld) 0.4 % Normal 0.2-2.0 [facility] Comment on above: Performed By: #### C BC #### [facility] [address] [place] [address] Dr. Pablo Blanchard EO # 0.2 103/ul Normal 0.0-0.7 [facility] Comment on above: Performed By: #### C BC #### [facility] [address] [place] [address] Dr. Pablo Blanchard Eosinophils/100 WBC (Bld) 2.5 % Normal 0.9-7.0 [facility] Comment on above: Performed By: #### C BC #### [facility] [address] [place] [address] Dr. Pablo Blanchard Erythrocyte distribution width (RBC) [Ratio] 12.2 % Normal 11.0-15.0 [facility] Comment on above: Performed By: #### C BC #### [facility] [address] [place] [address] Dr. Pablo Blanchard Hematocrit (Bld) [Volume fraction] 49.2 % Normal 42.0-54.0 [facility] Comment on above: Performed By: #### C BC #### [facility] [address] [place] [address] Dr. Pablo Blanchard Hemoglobin (Bld) [Mass/Vol] 16.1 g/dL Normal 14.0-18.0 [facility] Comment on above: Performed By: #### C BC #### [facility] [address] [place] [address] Dr. Pablo Blanchard IG # 0.03 10e3/ul Normal 0.00-0.03 [facility] Comment on above: Performed By: #### C BC #### [facility] [address] [place] [address] Dr. Pablo Blanchard IG % 0.4 % Normal 0.0-0.5 [facility] Comment on above: Performed By: #### C BC #### [facility] [address] [place] [address] Dr. Pablo Blanchard LYMPH # 1.5 103/ul Normal 1.2-3.8 [facility] Comment on above: Performed By: #### C BC #### [facility] [address] [place] [address] Dr. aPblo Blanchard Lymphocytes/100 WBC (Bld) 20.1 % Critically low 20.5-60.0 [facility] Comment on above: Performed By: #### C BC #### [facility] [address] [place] [address] Dr. Pablo Blanchard MANUAL DIFF REQ NO Normal [facility] Comment on above: Performed By: #### C BC #### [facility] [address] [place] [address] Dr. Pablo Blanchard MCH (RBC) [Entitic mass] 30.4 pg Normal 25.9-34.0 [facility] Comment on above: Performed By: #### C BC #### [facility] [address] [place] [address] Dr. Pablo Blanchard MCHC (RBC) [Mass/Vol] 32.7 g/dL Normal 29.9-35.2 [facility] Comment on above: Performed By: #### C BC #### [facility] [address] [place] [address] Dr. Pablo Blanchard MCV (RBC) [Entitic vol] 92.8 fL Normal 80.0-94.0 [facility] Comment on above: Performed By: #### C BC #### [facility] [address] [place] [address] Dr. Pablo Blanchard MONO # 0.6 103/ul Normal 0.3-0.8 [facility] Comment on above: Performed By: #### C BC #### [facility] [address] [place] [address] Dr. Pablo Blanchard Monocytes/100 WBC (Bld) 8.1 % Normal 1.7-12.0 [facility] Comment on above: Performed By: #### C BC #### [facility] [address] [place] [address] Dr. Pablo Blanchard NEUT # 5.1 103/ul Normal 1.4-6.5 [facility] Comment on above: Performed By: #### C BC #### [facility] [address] [place] [address] Dr. Pablo Blanchard Neutrophils/100 WBC (Bld) 68.5 % Normal 43.0-75.0 [facility] Comment on above: Performed By: #### C BC #### [facility] [address] [place] [address] Dr. Pablo Blanchard Platelet mean volume (Bld) [Entitic vol] 9.2 fL Critically low 9.5-13.5 [facility] Comment on above: Performed By: #### C BC #### [facility] [address] [place] [address] Dr. Pablo Blanchard PLT 231 103/ul Normal 150-450 [facility] Comment on above: Performed By: #### C BC #### [facility] [address] [place] [address] Dr. Pablo Blanchard RBC 5.30 106/ul Normal 4.70-6.10 [facility] Comment on above: Performed By: #### C BC #### [facility] [address] [place] [address] Dr. Pablo Blanchard WBC 7.5 103/ul Normal 4.0-11.0 [facility] Comment on above: Performed By: #### C BC #### [facility] [address] [place] [address] Dr. Pablo Blanchard GLYCOHEMOGLOBIN A1Con 2021 ADA RECOMMENDATION SEE BELOW Normal [facility] Comment on above: Result Comment: ADA RECOMMENDED LIMIT 4.0 - 6.0 ADA THERAPEUTIC TARGET < 7.0 ACTION SUGGESTED > 7.0 Performed By: #### A 1C #### [facility] [address] [place] [address] Dr. Pablo Blanchard Glucose [Mass/Vol] 97 mg/dL Normal [facility] Comment on above: Performed By: #### A 1C #### [facility] [address] [place] [address] [address] Pablo Blanchard HbA1c (Bld) [Mass fraction] 5.0 % Normal 4.5-6.2 [facility] Comment on above: Performed By: #### A 1C #### [facility] [address] [place] [address] [address] Pablo Blanchard LIPID PROFILEon 03-08-2022 CHOL-HDL RATIO NORM SEE BELOW Normal [facility] Comment on above: Result Comment: 3.3 - 4.4 LOW RISK 4.4 - 7.1 AVERAGE RISK 7.1 - 11.0 MODERATE RISK >11.0 HIGH RISK Performed By: #### L IPID, CMP #### [facility] [address] [place] [address] Dr. Pablo Blanchard Cholesterol [Mass/Vol] 205 mg/dL Critically high <=200 [facility] Comment on above: Performed By: #### L IPID, CMP #### [facility] [address] [place] [address] [address] Pablo Blanchard Cholesterol in HDL [Mass/Vol] 40 mg/dL Normal 40-60 [facility] Comment on above: Performed By: #### L IPID, CMP #### [facility] [address] [place] [address] Dr. Pablo Blanchard Cholesterol in LDL [Mass/Vol] 150.6 mg/dL Normal [facility] Comment on above: Performed By: #### L IPID, CMP #### [facility] [address] [place] [address] [address] Pablo Blanchard Cholesterol.total/Choles terol in HDL [Mass ratio] 5.1 {ratio} Normal [facility] Comment on above: Performed By: #### L IPID, CMP #### [facility] [address] [address] [address] Pablo Blanchard HDL NORMAL > or = 60 mg/dl - LOW CARDIOVASCULAR RISK <40 mg/dl - HIGH CARDIOVASCULAR RISK Normal [facility] Comment on above: Performed By: #### L IPID, CMP #### [facility] [address] [address] [address] Pablo Blanchard LDL CALC NORMAL SEE BELOW Normal [facility] Comment on above: Result Comment: <100 mg/dl OPTIMAL 100 - 129 mg/dl NEAR OR ABOVE OPTIMAL 130 - 159 mg/dl BORDERLINE HIGH 160 - 189 mg/dl HIGH >190 mg/dl VERY HIGH Performed By: #### L IPID, CMP #### [facility] [address] [address] [address] Pablo Blanchard Triglyceride [Mass/Vol] 72 mg/dL Normal <=150 T [facility] Comment on above: Performed By: #### L IPID, CMP #### [facility] [address] [address] [address] Pablo Blanchard VLDL CALC 14.4 mg/dL Normal [facility] Comment on above: Performed By: #### L IPID, CMP #### [facility] [address] [address] [address] Palbo Blanchrad PROF 14(COMP METB)on 03-08- 022 Albumin [Mass/Vol] 3.3 g/dL Critically low 3.4-5.0 Th [facility] Comment on above: Performed By: #### L IPID, CMP #### [facility] [address] [place] [address] Dr. Pablo Blanchard Albumin/Globulin [Mass ratio] 1.0 {ratio} Normal [facility] Comment on above: Performed By: #### L IPID, CMP #### [facility] [address] [place] [address] Dr. Pablo Blanchard ALP [Catalytic activity/Vol] 98 U/L Normal 46-116 [facility] Comment on above: Performed By: #### L IPID, CMP #### [facility] [address] [place] [address] Dr. Pablo Blanchard ALT [Catalytic activity/Vol] 33 U/L Normal 16-63 [facility] Comment on above: Performed By: #### L IPID, CMP #### [facility] [address] [address] [address] Pablo Blanchard Anion gap [Moles/Vol] 9.4 mmol/L Normal [facility] Comment on above: Performed By: #### L IPID, CMP #### [facility] [address] [address] [address] Pablo Blanchard AST [Catalytic activity/Vol] 16 U/L Normal 15-37 [facility] Comment on above: Performed By: #### L IPID, CMP #### [facility] [address] [address] [address] Pablo Blanchard Bilirubin [Mass/Vol] 0.7 mg/dL Normal 0.2-1.0 [facility] Comment on above: Performed By: #### L IPID, CMP #### [facility] [address] [place] [address] Dr. Pablo Blanchard Calcium [Mass/Vol] 8.0 mg/dL Critically low 8.5-10.1 Th [facility] Comment on above: Performed By: #### L IPID, CMP #### [facility] [address] [place] [address] Dr. Pablo Blanchard Chloride [Moles/Vol] 104 mmol/L Normal 98-107 [facility] Comment on above: Performed By: #### L IPID, CMP #### [facility] [address] [place] [address] Dr. Pablo Blanchard CO2 [Moles/Vol] 30.5 mmol/L Normal 21.0-32.0 [facility] Comment on above: Performed By: #### L IPID, CMP #### [facility] [address] [place] [address] Dr. Pablo Blanchard Creatinine [Mass/Vol] 1.02 mg/dL Normal 0.70-1.30 [facility] Comment on above: Performed By: #### L IPID, CMP #### [facility] [address] [place] [address] Dr. Pablo Blanchard EGFR-AF COLOMBIAN >60 Normal >=60 [facility] Comment on above: Performed By: #### L IPID, CMP #### [facility] [address] [address] [address] Pablo Blanchard EGFR-NON AF COLOMBIAN >60 Normal >=60 [facility] Comment on above: Performed By: #### L IPID, CMP #### [facility] [address] [address] [address] Pablo Blanchard Globulin (S) [Mass/Vol] 3.4 g/dL Normal [facility] Comment on above: Performed By: #### L IPID, CMP #### [facility] [address] [address] [address] Pablo Blanchard Glucose [Mass/Vol] 108 mg/dL Critically high 74-106 [facility] Comment on above: Performed By: #### L IPID, CMP #### [facility] [address] [place] [address] Dr. Pablo Blanchard Potassium [Moles/Vol] 3.9 mmol/L Normal 3.5-5.1 [facility] Comment on above: Performed By: #### L IPID, CMP #### [facility] [address] [address] [address] Pablo Blanchard Protein [Mass/Vol] 6.7 g/dL Normal 6.4-8.2 [facility] Comment on above: Performed By: #### L IPID, CMP #### [facility] [address] [place] [address] Dr. Pablo Blanchard Sodium [Moles/Vol] 140 mmol/L Normal 136-145 [facility] Comment on above: Performed By: #### L IPID, CMP #### [facility] [address] [place] [address] Dr. Pablo Blanchard Urea nitrogen [Mass/Vol] 11.0 mg/dL Normal 7.0-18.0 [facility] Comment on above: Performed By: #### L IPID, CMP #### [facility] [address] [place] [address] Dr. Pablo Blanchard Urea nitrogen/Creatinine [Mass ratio] 10.8 mg/mg Normal [facility] Comment on above: Performed By: #### L IPID, CMP #### [facility] [address] [address] [address] Pablo Blanchard UA RANDOM W/MICROSCOPICon BACTERIA NONE SEEN Normal NONE SEEN [facility] Comment on above: Performed By: #### U AMIC #### [facility] [address] [address] [address] Pablo Blanchard Bilirubin Ql (U) Negative Normal NEGATIVE [facility] Comment on above: Performed By: #### U AMIC #### [facility] [address] [place] [address] Dr. Pablo Blanchard CAST NONE SEEN Normal NONE SEEN [facility] Comment on above: Performed By: #### U AMIC #### [facility] [address] [place] [address] Dr. Pablo Blanchard Clarity (U) CLEAR Normal CLEAR [facility] Comment on above: Performed By: #### U AMIC #### [facility] [address] [place] [address] Dr. Pablo Blanchard Color (U) YELLOW Normal YELLOW [facility] Comment on above: Performed By: #### U AMIC #### [facility] [address] [address] [address] Pablo Blanchard Crystals LM Nom (Urine sed) NONE SEEN Normal NONE SEEN [facility] Comment on above: Performed By: #### U AMIC #### [facility] [address] [place] [address] Dr. Pablo Blanchard Epithelial cells LM Ql (Urine sed) FEW Abnormal NONE SEEN /RARE [facility] Comment on above: Performed By: #### U AMIC #### [facility] [address] [place] [address] Dr. Pablo Blanchard Glucose Ql (U) Negative Normal NEGATIVE [facility] Comment on above: Performed By: #### U AMIC #### [facility] [address] [place] [address] Dr. Pablo Blanchard Hemoglobin Ql (U) Negative Normal NEGATIVE [facility] Comment on above: Performed By: #### U AMIC #### [facility] [address] [place] [address] Dr. Pablo Blanchard Ketones Ql (U) Negative Normal NEGATIVE [facility] Comment on above: Performed By: #### U AMIC #### [facility] [address] [place] [address] Dr. Pablo Blanchard LEUKOCYTES Negative Normal NEGATIVE [facility] Comment on above: Performed By: #### U AMIC #### [facility] [address] [place] [address] Dr. Pablo Blanchard MUCOUS NONE SEEN Normal NONE SEEN [facility] Comment on above: Performed By: #### U AMIC #### [facility] [address] [place] [address] Dr. Pablo Blanchard Nitrite Ql (U) Negative Normal NEGATIVE [facility] Comment on above: Performed By: #### U AMIC #### [facility] [address] [place] [address] Dr. Pablo Blanchard pH (U) 6.0 [pH] Normal 5-9 [facility] Comment on above: Performed By: #### U AMIC #### [facility] [address] [place] [address] Dr. Pablo Blanchard RBC 0-2 Normal 0-2 [facility] Comment on above: Performed By: #### U AMIC #### [facility] [address] [place] [address] Dr. Pablo Blanchard SPEC GRAVITY >=1.030 Abnormal 1.005-<=1.025 [facility] Comment on above: Performed By: #### U AMIC #### [facility] [address] [place] [address] Dr. Pablo Blanchard UA PROTEIN Negative Normal NEGATIVE/ TRACE [facility] Comment on above: Performed By: #### U AMIC #### [facility] [address] [place] [address] Dr. Pablo Blanchard Urobilinogen Qn (U) 1.0 {Kuldeep'U}/dL Normal 0.2 - 1. 0 [facility] Comment on above: Performed By: #### U AMIC #### [facility] [address] [place] [address] Dr. Pablo Blanchard WBC NONE SEEN Normal NONE SEEN [facility] Comment on above: Performed By: #### U AMIC #### [facility] [address] [place] [address] Dr. Pablo Blanchard Covid-19 PCR ([facility])on 10-14 SARS-CoV-2 (COVID-19) RNA NANCIE+probe Ql (Unsp spec) Not detected Normal NOT DETECTED [facility] Comment on above: Result Comment: This test is not yet approved or cleared by the [place] FDA. When there are no FDA-approved or cleared tests available, and other criteria are met, FDA can make tests available under an emergency access mechanism called an Emergency Use Authorization (EUA). The EUA for this test is supported by the Wet Roaster of Health and Human Service's (HHS's) declaration that circumstances exist to justify the emergency use of in vitro diagnostics for the detection and/or diagnosis of the virus that causes COVID-19. This EUA will remain in effect (meaning this test can be used) for the duration of the COVID-19 declaration justifying emergency of IVDs, unless it is terminated or revoked by FDA (after which the test may no longer be used). When diagnostic testing is negative, the possibility of a false negative should be considered in the context of a patient's recent exposures and the presence of clinical signs and symptoms consistent with SARS-CoV-2. Performed By: #### C VDTB #### [facility] [address] [place] [address] Dr. Pablo Blanchard CKon 02-04-2018 Creatine kinase (CK) 57 Int._Unit/L Normal 14-261 [facility] Comment on above: Performed By: #### 2 [id number], [id number] ####[facility] [address] [place] [address] CKMBon 02-04-2018 CREATINE KINASE.MB:CCNC:PT:SER/PL :QN:EIA 0.5 ng/mL Normal 0.3-4.9 [facility] Comment on above: Performed By: #### 2 [id number], [id number] ####[place] [address] [id number] CREATINE KINASE.MB:CCNC:PT:SER/PL :QN:EIA 0.8 ng/mL Normal 0.3-4.9 [facility] Comment on above: Performed By: #### 2 [id number], [id number], [id number] ####[address] [address] CREATINE KINASE.MB:CCNC:PT:SER/PL :QN:EIA 0.7 ng/mL Normal 0.3-4.9 [facility] Comment on above: Performed By: #### 2 748452, [id number], [id number] ####[address] [address] CMPon 02-04-2018 Albumin 1.2 g/dL Normal 1.1-2.2 [facility] Comment on above: Performed By: #### 2 [id number], [id number] ####[address] [address] Albumin 3.6 g/dL Normal 3.3-5.0 [facility] Comment on above: Performed By: #### 2 542149, [id number] ####[address] [address] Alkaline phosphatase (ALP) 71 Int._Unit/L Normal 21-98 [facility] Comment on above: Performed By: #### 2 [id number], [id number] ####[address] [address] ALT Without P-5'-P enzyme act/vol 29 Int._Unit/L Normal 6-46 [facility] Comment on above: Performed By: #### 2 060363, [id number] ####[address] [address] Aspartate aminotransferase (AST) 29 Int._Unit/L Normal 5-43 [facility] Comment on above: Performed By: #### 2 553181, [id number] ####[address] [place] [address] Bilirubin (total) 0.5 mg/dL Normal 0.0-1.1 [facility] Comment on above: Performed By: #### 2 [id number], [id number] ####[facility] [address] [place] [address] BUN/Creatinine Ratio 16 No Units Normal 10-20 [facility] Comment on above: Performed By: #### 2 373844, [id number] ####[facility] [address] [place] [address] Creatinine 1.0 mg/dL Normal 0.5-1.3 [facility] Comment on above: Performed By: #### 2 763214, [id number] ####[facility] [address] [place] [address] Globulin 2.9 g/dL Normal 1.4-4.0 [facility] Comment on above: Performed By: #### 2 368298, [id number] ####[facility] [address] [place] [address] Protein 6.5 g/dL Normal 6.0-7.8 [facility] Comment on above: Performed By: #### 2 884363, [id number] ####[facility] [address] [place] [address] Urea nitrogen 16 mg/dL Normal 5-21 [facility] Comment on above: Performed By: #### 2 058567, [id number] ####[facility] [address] [place] [address] Anion gap 14 mmol/L Normal 6-16 [facility] Comment on above: Performed By: #### 2 976000, [id number] ####[facility] [address] [place] [address] Calcium 8.8 mg/dL Low 8.9-11.1 [facility] Comment on above: Performed By: #### 2 208215, [id number] ####[facility] [address] [place] [address] Chloride 106 mmol/L Normal 101-111 [facility] Comment on above: Performed By: #### 2 456841, [id number] ####[facility] [address] [place] [address] CO2 23 mmol/L Normal 21-31 [facility] Comment on above: Performed By: #### 2 641085, [id number] ####[facility] [address] [place] [address] Glucose mass conc 86 mg/dL Normal 55-199 [facility] Comment on above: Result Comment: If t his glucose result represents a fasting glucose, interpretation should refer to the following reference range: 55-99 mg/dL Performed By: #### 2 816508, [id number] ####[facility] [address] [place] [address] Potassium molar conc 3.6 mmol/L Normal 3.5-5.3 [facility] Comment on above: Performed By: #### 2 968675, [id number] ####[facility] [address] [place] [address] Sodium 139 mmol/L Normal 135-145 [facility] Comment on above: Performed By: #### 2 068710, [id number] ####[facility] [address] [place] [address] Myoglobinon 02-04-2018 Myoglobin 18 ng/mL Normal <=69 [facility] Comment on above: Performed By: #### 2 410702, [id number], [id number], 7186719, [id number], [id number] ####[facility] [address] [place] [address] Myoglobin 42 ng/mL Normal <=69 [facility] Comment on above: Performed By: #### 2 768975, 7275622, [id number] ####[facility] [address] [place] [address] Myoglobin 17 ng/mL Normal <=69 [facility] Comment on above: Performed By: #### 2 812460, 4106571, [id number] ####[facility] [address] [place] [address] T4 Totalon 02-04-2018 Thyroxine (T4) 9.1 microgram/dL Normal 4.6-9.1 [facility] Comment on above: Performed By: #### 2 707127, [id number] ####[facility] [address] [place] [address] TSHon 02-04-2018 Thyroid stimulating hormone (TSH) 5.61 mcIU/mL High 0.34-5.60 [facility] Comment on above: Performed By: #### 2 073139, [id number] ####[facility] [address] [place] [address] Troponinon 02-04-2018 Troponin I.cardiac mass conc ng/mL Normal <=0.03 [facility] Comment on above: Result Comment: New Troponin Assay 11/26/13ROC ID Cutoff value > or = 0.03 ng/mL in conjunction with clinical conditions of myocardial infarction.([email or web address]/guidelines) Performed By: #### 2 051978, 8843237, [id number], 5454572, [id number], [id number] ####[facility] [address] [place] [address] Troponin I.cardiac mass conc ng/mL Normal <=0.03 [facility] Comment on above: Result Comment: New Troponin Assay 11/26/13ROC ID Cutoff value > or = 0.03 ng/mL in conjunction with clinical conditions of myocardial infarction.([email or web address]/guidelines) Performed By: #### 2 625001, [id number], [id number] ####[facility] [address] [place] [address] Troponin I.cardiac mass conc ng/mL Normal <=0.03 [facility] Comment on above: Result Comment: New Troponin Assay 11/26/13ROC ID Cutoff value > or = 0.03 ng/mL in conjunction with clinical conditions of myocardial infarction.([email or web address]/guidelines) Performed By: #### 2 100106, 4445262, [id number] ####[facility] [address] [place] [address] eGFRon 02-04-2018 eGFR (black) mL/min/{1.73_m2} Normal >=59 [facility] Comment on above: Order Comment: Order added by Discern Expert. Result Comment: eGFR is race adjusted. AA=. Performed By: #### 2 161837, [id number] ####[facility] [address] [place] [address] eGFR (non-black) mL/min/{1.73_m2} Normal >=59 [facility] Comment on above: Order Comment: Order added by Discern Expert. 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 Kidney failure is indicated at less than 15 mL/min/1.73m2. Performed By: #### 2 735915, [id number] ####[facility] [address] [place] [address] Vital Signs Date Time Vital Sign Value Performing Clinician [place] [facility] 09-04-2023 14:11-0500 Body height 188 cm Lida Suh MD Work Phone: [facility] 09-04-2023 14:11-0500 Body mass index (BMI) [Ratio] 31.46 kg/m2 Lida Suh MD Work Phone: [facility] 09-04-2023 14:11-0500 Body weight 111.13 kg Lida Suh MD Work Phone: [facility] 09-04-2023 14:11-0500 Diastolic blood pressure 75 mm[Hg] Lida Suh MD Work Phone: [facility] 09-04-2023 14:11-0500 Heart rate 76 /min Lida Suh MD Work Phone: [facility] 09-04-2023 14:11-0500 Systolic blood pressure 116 mm[Hg] Lida Suh MD Work Phone: [facility] [place] [place] [employer] [facility] 10-22-2022 15:54-0400 Diastolic blood pressure 46 mm[Hg] Brooklynn Aichholz Work Phone: [facility] 10-22-2022 15:54-0400 Heart rate 69 /min Brooklynn Aichholz Work Phone: [facility] 10-22-2022 15:54-0400 Respiratory rate 16 /min Brooklynn Aichholz Work Phone: [facility] 10-22-2022 15:54-0400 SaO2% (BldA) [Mass fraction] 99 % Brooklynn Aichholz Work Phone: [facility] 10-22-2022 15:54-0400 Systolic blood pressure 97 mm[Hg] Brooklynn Aichholz Work Phone: [facility] 10-22-2022 14:07-0400 Body height 187.96 cm Brooklynn Aichholz Work Phone: [facility] 10-22-2022 14:07-0400 Body temperature 97.2 [degF] Brooklynn Aichholz Work Phone: [facility] 10-22-2022 14:07-0400 Body weight 113.39 kg Brooklynn Aichholz Work Phone: [facility] 09-04-2022 23:07-0500 Heart rate 73 /min Brooklynn Aichholz Work Phone: [facility] 09-04-2022 23:07-0500 Respiratory rate 18 /min Brooklynn Aichholz Work Phone: [facility] 09-04-2022 23:07-0500 SaO2% (BldA) [Mass fraction] 99 % Brooklynn Aichholz Work Phone: [facility] 09-04-2022 22:55-0500 Body temperature 97.7 [degF] Brooklynn Aichholz Work Phone: [facility] 09-04-2022 22:55-0500 Diastolic blood pressure 84 mm[Hg] Brooklynn Aichholz Work Phone: [facility] 09-04-2022 22:55-0500 Systolic blood pressure 123 mm[Hg] Brooklynn Aichholz Work Phone: [facility] 09-04-2022 22:11-0500 Body height 189.23 cm Brooklynn Aichholz Work Phone: [facility] 09-04-2022 22:11-0500 Body weight 117.4 kg Brooklynn Aichholz Work Phone: [facility] Encounters Encounter Date Encounter Type Care Provider Facility Start: 09-04-2023 End: 09-04-2023 ambulatory LIDA SUH [facility] Start: 09-04-2023 Telephone encounter Lida Suh MD [facility] Start: 09-04-2023 End: 09-04-2023 Office consultation new/estab patient 60 min Lida Suh MD Work Phone: [facility] Comment on above: Elevated PSA (Primar y Dx); Hematuria, microscopic Start: 09-04-2023 End: [facility] Start: 08-27-2023 Refill Brooklynn Chaddz BEHAVIOR ANALYST Work Phone: [facility] Comment on above: Mixed hyperlipidemia (CMS/HCC) (Primary Dx) Start: 08-21-2023 Telephone encounter Brooklynn Gabbie martinez BEHAVIOR ANALYST Work Phone: [facility] Start: 07-22-2023 End: 07-22-2023 ambulatory BROOKLYNN CHADDZ Not Available Start: 10-22-2022 End: 10-22-2022 ambulatory Kevin Sheehan Facility:[facility] Start: 10-22-2022 End: 10-22-2022 Admission to same day surgery center Brooklynn Yeager Work Phone: [facility] [place] Start: 10-22-2022 End: 10-22-2022 ambulatory Brooklynn Eagleholz Work Phone: [facility] Work Phone: Start: 10-03-2022 End: 10-03-2022 ambulatory Brooklynn Eagleholz Work Phone: [facility] Work Phone: Start: 10-03-2022 End: 10-03-2022 Departed Referred Brooklynn Eagledaltonvelia Work Phone: [facility] [place] Work Phone: Start: 09-18-2022 End: 09-19-2022 ambulatory LINE LEAD BROOKLYNN EAGLEHOLZ Facility:[facility] Start: 09-05-2022 End: 09-05-2022 Emergency department patient visit Brooklynn Joshi Wandajermainedaltonvelia Facility:[facility] Start: 09-04-2022 End: 09-05-2022 Emergency department patient visit Brooklynn Yeager Work Phone: [facility] Work Phone: Start: 03-08-2022 End: 03-09-2022 ambulatory LINE LEAD BROOKLYNN EAGLEHOLZ Facility:[facility] Start: 11-03-2021 End: 11-03-2021 ambulatory LINE LEAD BROOKLYNN EAGLEHOLZ Facility:[facility] Start: 02-04-2018 Patient encounter KINJAL Gresham ity:[facility] Start: 02-03-2018 Patient encounter KINJAL Gresham ity:[facility] Procedures Date Procedure Procedure Detail Performing Clinician Start: 10-22-2022 Excision of cyst Brooklynn A ichholz Work Phone: Start: 10-03-2022 Colonoscopy Brooklynn Gabbie martinez BEHAVIOR ANALYST Work Phone: Start: 09-04-2022 Plain X-ray abdomen Tawny orourke Shobha Work Phone: Start: 09-04-2022 SARS-CoV-2, Influenz a & RSV (PCR) Brooklynn Shobha Work Phone: Start: 03-08-2022 PSA screening LINE LEAD BROOKLYNN SHOBHA Comment on above: Performed By: #### P [facility] #### [facility] [address] [place] [address] Dr. Pablo Blanchard Plan of Treatment Date Care Activity Detail Author Start: 10-03-2032 Screening for malign ant neoplasm of colon [facility] Start: 09-04-2024 Adult BMI Screening Adult BMI Screen ing [facility] Start: 09-04-2024 Tobacco Screening Tobacco Screening [facility] Start: 11-04-2023 End: 11-04-2023 Patient encounter procedure 11/04/2023 2:45 PM EDT Office [facility] [address] [place] [id number] Lida Suh MD [address] [place] [address] [facility] Start: 10-22-2023 End: 09-03-2024 Prostatic specific antigen, diagnostic Prostatic specific antigen, diagnostic Lab Routine Elevated PSA Expected: 10/22/2023, Expires: 09/03/2024 [facility] Comment on above: Expected: 10/22/2023 , Expires: 09/03/2024 Start: 09-26-2023 End: 09-26-2023 Patient encounter procedure 09/26/2023 9:00 AM EDT Office Visit [facility] [address] [place] [id number] Brooklynn Yeager NP [address] [place] [id number] [facility] Start: 09-04-2023 End: 09-04-2024 CT Kidney and Ureter and Urinary bladder 3D post processing WO and W contrast IV CT urogram Imaging Routine Hematuria, microscopic Expected: 09/04/2023, Expires: 09/04/2024 [facility] Work Phone: Comment on above: Expected: 09/04/2023 , Expires: 09/04/2024 Start: 03-15-2023 COVID-19 Vaccine () COVID-19 Vaccine () [facility] Start: 03-15-2023 Influenza vaccination N [facility] Start: 10-22-2022 [facility] Start: 09-04-2022 Plain X-ray abdomen XR abdomen min 2 V [facility] Start: 09-04-2022 XR Abdomen Views [facility] Start: 1988 DTaP,Tdap and Td Vaccines (1 - Tdap) DTaP,Tdap and Td Vaccines (1 - Tdap) [facility] Start: 12-27-1987 Adult BMI Follow Up Plan Adult BMI Follow Up Plan [facility] Start: 1981 Depression Screening Depression Scre ening [facility] Start: 1969 Screening for malign ant neoplasm of colon [facility] Start: 1969 Tobacco Counseling Tobacco Counselin g [facility] End: 09-03-2024 Cytology Cytology Pathology and Cytology Routine Hematuria, microscopic 1 Occurrences starting 09/04/2023 until 09/03/2024 [facility] Comment on above: 1 Occurrences starti ng 09/04/2023 until 09/03/2024 Patient Education [facility] Work Phone: Patient referral [facility] Work Phone: Payers Date Payer Category Payer Private Health Insurance [facility] [id number] 2023-Present [phone] [address] [place] [address] [id number] 2023 Medicaid [employer] [place] [id number] 2023-Present [address] [place] [address] [id number] 2022 Medicaid [id number] 1970 Unknown [id number]. [id number] 1969 Unknown [id number] [id number]. 2.593 1969 Unknown [id number] [id number]. 2.1259 1969 Unknown [id number] [id number]. 2.1259 1969 Unknown [id number] [id number]. 2.1286 1969 Unknown [id number] [id number]. 2.1286 1959 Self-pay [id number] 1959 Unknown [id number] Unknown [id number]. [id number] Unknown [id number] [id number]. 2.531 Unknown [id number] [id number]. 2.531 Unknown [id number]. 2.531 Social History Date Type Detail Facility Start: 09-04-2022 End: 10-22-2022 Tobacco smoking status WVIS Smoker (finding) [facility] Start: 1970 Sex Assigned At Male [facility] Start: 07-15-1988 End: 09-04-2023 Tobacco smoking status NHIS Smokes tobacco daily [facility] Start: 07-15-1988 History of tobacco use Cigarette Smo ker [facility] Start: 07-17-2023 End: 09-04-2023 Cigarettes smoked current (pack per day) - Reported 1 [facility] Start: 08-21-2023 Alcohol intake Ex-drinker (finding) [facility] Start: 07-22-2023 End: 09-04-2023 Tobacco use panel [facility] Start: 07-21-2023 Alcohol Comment caffeine 1-2 c ups per day [facility] Start: 1970 Sex Assigned At Not on file N [facility] Start: 09-04-2023 Tobacco use and exposure Smokeless tobacco non-user [facility] Start: 09-04-2023 Alcohol intake Lifetime non-d chasity (finding) [facility] Within the past 12 months we worried whether our food would run out before we got money to buy more. Never True [facility] Goals Date Patient Goal Desired Activity /State Clinical Notes 08-21-2023 to 09-04-2023 Telephone Encounter - Lida Suh MD - 09/04/2023 2:40 PM ESTTelephone Encounter - Lida Suh MD - 09/04/2023 2:40 PM ESTMicreji Suh MD - 09/04/2023 1:30 PM EST Note Date & Type Note Facility 09-04-2023 Miscellaneous Notes Formattin g of this note might be different from the original. Cysto potential retrograde pyelogram. [facility] [place]. Possible biopsy. Diagnosis is hematuria. documented in this encounter [facility] 09-04-2023 Telephone encount er Note Cysto potential retrograde pyelogram. [facility] [place]. Possible biopsy. Diagnosis is hematuria. [facility] 09-04-2023 Evaluation + Plan note Associated Problem(s): Hematuria, microscopic We reviewed today than any abnormality of the urinary tract including cancer, medical renal disease, infection, calculi, bleeding the diathesis, idiopathic, benign familial, BPH, or congenital anomaly could account for hematuria, and hence the importance of evaluation. The patient understands that all studies ordered must be completed in order to fully evaluate the urinary system. The patient acknowledges this and agrees. [facility] 09-04-2023 Miscellaneous Notes Associate d Problem(s): Hematuria, microscopic We reviewed today than any abnormality of the urinary tract including cancer, medical renal disease, infection, calculi, bleeding the diathesis, idiopathic, benign familial, BPH, or congenital anomaly could account for hematuria, and hence the importance of evaluation. The patient understands that all studies ordered must be completed in order to fully evaluate the urinary system. The patient acknowledges this and agrees. documented in this encounter [facility] 09-04-2023 History of Presen t illness Narrative Images from the original note were not included. [address] [place] [address] A [facility] [address] Patient: Reno Abreu Date of : 1970 Encounter Date: 09/04/2023 History of Present Illness: The patient is a 52 y.o. male, a new patient consultation, and is here for history of age elevation of PSA. He is 52. PSA 3.5. No prior instrumentation. UTI gross hematuria. Also microscopic hematuria through PCP evaluation. Smoking history as well. Urinalysis today: No results for input(s): EXTPOCURCO , EXTPOCURCH , EXTPOCAPP , EXTPOCURBS , EXTPOCURBIL , EXTPOCUKET , EXTPOCUSPG , EXTPOCUHGB , EXTPOCUPRO , EXTPOCUURO , EXTPOCULEU , EXTPOCUNIT , EXTPOCUWBC , EXTPOCUBLD , EXTPOCURBC , EXTPOCUCRY , EXTPOCUBAC , EXTPOCUTREP , EXTPOCUPH , EXTPOCULEE in the last 72 hours. Last BUN and creatinine: No results found for: BUN No results found for: CREATININE Last PSA: No results found for: PSA No results found for: PROSTATICSP Past Medical, Family, and Social History Update: The following portions of the patient's history were reviewed and updated as appropriate: allergies, current medications, past family history, past medical history, past social history, past surgical history and problem list. History reviewed. No pertinent past medical history. Past Surgical History: Procedure Laterality Date CHOLECYSTECTOMY 2020 History reviewed. No pertinent family history. Current Outpatient Medications Medication Sig Dispense Refill citalopram (CeleXA) 20 mg tablet Take 1 tablet (20 mg total) by mouth in the morning. lamoTRIgine (LaMICtal) 100 mg tablet Take 1 tablet (100 mg total) by mouth in the morning. No current facility-administered medications for this visit. (All medications reviewed and updated by provider since last office visit or hospitalization) Allergies: Vicodin [hydrocodone-acetaminophen] Tobacco History: Social History Tobacco Use Smoking Status Every Day Packs/day: .5 Types: Cigarettes Start date: 1988 Smokeless Tobacco Never (If patient a smoker, smoking cessation counseling offered) Social History: Social History Substance and Sexual Activity Alcohol Use Never Review of Systems: Constitutional: Normal activity and energy. Patient denies change in appetite, weight loss or gain, malaise (depression), chills, fever, or diaphoresis (sweating). Eyes: Patient denies vision changes or diplopia (double vision). Ears, Nose, Nose and Throat: Patient denies tinnitus (ringing in ears), hearing loss, epistaxis (nose bleed), hoarseness, and dysphagia (hard to swallow). Respiratory: Wheezing Cardiovascular: Chest Pain Gastrointestinal: Patient denies abdominal pain, nausea, vomiting, bloating, diarrhea (chronic), constipation (chronic), melena (black stool), hematochezia (blood in stool). Musculoskeletal: Backache Neurologic: Patient denies weakness, dizziness, loss of consciousness, transient ischemic symptoms, and seizures. Integument: Patient denies rashes and non-healing lesions. Psychiatric: Patient denies increased nervousness, mood changes, or depression. Endocrine: Patient denies thyroid trouble, heat or cold intolerance, diabetes, excessive thirst, hunger, and excessive urination. Blood Disorders: Patient denies anemia, easy bruising, and easy bleeding. Physical Exam: BP 116/75 Pulse 76 Ht 188 cm (6' 2 ) Wt 111.1 kg (245 lb) BMI 31.46 kg/m General Alert., Cooperative. Not in acute distress. Non-toxic. Orientation - Oriented X3. Head and Neck Normocephalic, atraumatic with no lesions. No abnormal movements. Trachea - midline. Integumentary Normal coloration of skin. Skin Moisture - normal skin moisture. Chest and Lung Exam Quiet, even and easy respiratory effort with no use of accessory muscles. Neurologic NON-focal Normal phallus, normal testes, no masses. Bilateral palpable vas deferens. Digital rectal exam: Benign feeling prostate. Borders are well demarcated. No nodules noted. Assessment and Plan: Reno was seen today for elevated psa. Diagnoses and all orders for this visit: Elevated PSA - Prostatic specific antigen, diagnostic; Future Hematuria, microscopic - CT urogram; Future - Cytology; Future Problem List High Hematuria, microscopic Overview ==== 09/04/2023 ==== microscopic hematuria. Through outside evaluation. Smoking history as well. Plan: Completion hematuria evaluation cytology CT urogram cystoscopy. Current Assessment & Plan We reviewed today than any abnormality of the urinary tract including cancer, medical renal disease, infection, calculi, bleeding the diathesis, idiopathic, benign familial, BPH, or congenital anomaly could account for hematuria, and hence the importance of evaluation. The patient understands that all studies ordered must be completed in order to fully evaluate the urinary system. The patient acknowledges this and agrees. Relevant Orders CT urogram Cytology Elevated PSA - Primary Overview ==== 09/04/2023 ==== history elevated PSA for his age. 3.5. Had previous PSA before little over 1 and then about 2 and half for so. No strong family history prostate carcinoma. Breast or ovarian carcinoma. Digital rectal exam benign feeling prostate. Certainly need to verify value. Repeat PSA 2 months return clinic. Relevant Orders Prostatic specific antigen, diagnostic Follow-up: Lida Suh MD 2 or more chronic urologic conditions addressed today. Equal to or greater than 3 distinct studies were ordered and or reviewed during this encounter Undiagnosed new problem with uncertain prognosis This note was created with the assistance of a speech recognition program. While intending to generate a timely document that accurately reflects the content of the visit, no guarantee can be provided that every grammatical or spelling mistake has been or will be identified or corrected. Thank you for your understanding. documented in this encounter [facility] 08-21-2023 Telephone encount er Note pt called needing a refill on his lamoTRIgine (LaMICtal) 100 MG tablet and citalopram (CeleXA) 20 MG tablet [facility] 08-21-2023 Miscellaneous Notes Formattin g of this note might be different from the original. pt called needing a refill on his lamoTRIgine (LaMICtal) 100 MG tablet and citalopram (CeleXA) 20 MG tablet documented in this encounter [facility] Evaluation note No assessment inform ation available [facility] Work Phone: Evaluation note Diagnosis Bipolar affective disorder, remission status unspecified (CMS/HCC)- Primary documented in this encounter [facility]* Diagnosis Mixed hyperlipidemia (CMS/HCC)- Primary Mixed hyperlipidemia documented in this encounter [facility]* Diagnosis Elevated PSA- Primary Elevated prostate specific antigen (PSA) Hematuria, microscopic Microscopic hematuria documented [facility] this encounter [facility] Additional Instructions As we discussed, your symptoms of excessive sleepiness during the day, persistent fatigue, and loud snoring suggest possible sleep apnea. Please follow up with your doctor about this as you may need to be referred for a sleep study. MiraLax may be used daily to stay regular and prevent constipation. May be taken twice daily until constipation is resolved.[facility] Work Phone: InstructionsNot on filedocumented in this encounter [facility] System[facility]ructionsNot on filedocumented in this encounter [facility] Summary Purpose Family History No Family History Records Found Relationship Condition Age at Onset Recorded Date/T clay Not Specified Mass of neck Unknown Heart valve disease Unknown father Unknown brother History of partial s urgical removal of colon Unknown Advance Directives No Advanced Directives Records Found Advance Directive Response Recorded Date/ Time Advance Directives No March 9:36pm Advance Directive Response Recorded Date/ Time Advance Directives No March 10:36pm Chief Complaint and Reason for Visit Chief Complaint Dizzy, Fatigue, Weak ness Chief Complaint Dizzy, Fatigue, Weak ness family HX of colon cancer Multiple Masses Reason for Referral Specialty Diagnoses / Procedures Referred By Helen hayes Referred To Contact Radiology Diagnoses Hematuria, microscopic Procedures CT urogram Lida Suh MD [address] [place] [address] Referral ID Status Reason Start Date Expiration Date V isits Requested Visits Authorized [id number] Pending Review 09/04/2023 09/03/2024 1 1 Additional Source Comments (unrecognized sect ion and content) No Status Records FoundNo Status Records FoundNo Status Records FoundNo Status Records FoundNo Status Records FoundNo Status Records Found INFORMATION SOURCE (unrecogn ized section and content) DATE CREATED AUTHOR 02/04/2018 [facility] DATE CREATED AUTHOR AUTHOR'S ORGANIZ ATION 10/02/2022 [facility] DATE CREATED AUTHOR AUTHOR'S ORGANIZ ATION 10/23/2022 [facility] DATE CREATED AUTHOR AUTHOR'S ORGANIZ ATION 07/22/2023 [facility] DATE CREATED AUTHOR AUTHOR'S ORGANIZ ATION 09/12/2023 [facility] DATE CREATED AUTHOR AUTHOR'S ORGANIZ ATION 09/12/2023 [facility] Care Teams (unrecognized sec tion and content) Team Status: Inactive Member Role Status Dates Brooklynn Yeager Primary Care Provider Active Hernandez Lares Jr, MD Emergency Provider Active Team Status: Active Member Role Status Dates Brooklynn Yeager Primary Care Provider Active Team Status: Inactive Member Role Status Dates Kevin Sheehan MD Attending Provider Active Team Status: Inactive Member Role Status Dates Kevin Sheehan MD Attending Provider Active Brooklynn Yeager Primary Care Provider Active Surveillance Dual Rate Officer Relationship Specialty Start Date End Date Eusebio Schneider MD [address] [place] [phone] PCP - General Family Medicine 07/16/23 Brooklynn Yeager NP [address] [place] [phone] Nurse Practitioner Family Medicine 05/15/23 Surveillance Dual Rate Officer Relationship Specialty Start Date End Date Eusebio Schneider MD [address] [place] [phone] PCP - General Family Medicine 07/16/23 Brooklynn Yeager NP [address] [place] [phone] Nurse Practitioner Family Medicine 05/15/23 Surveillance Dual Rate Officer Relationship Specialty Start Date End Date Brooklynn Yeager APRN-LINE LEAD [address] [place] [phone] PCP - General Nurse Practitioner 09/04/23 Surveillance Dual Rate Officer Relationship Specialty Start Date End Date Brooklynn Yeager APRN-LINE [employer] [address] [place] [phone] PCP - General Nurse Practitioner 09/04/23 Goals (unrecognized section and content) Goals may be documented in a n alternate sectionGoals may be documented in an alternate sectionNot on filedocumented as of this encounterNot on filedocumented as of this encounter Reason for Visit (unrecogniz ed section and content) Reason Comments Elevated PSA FOR RECORDS PERTAINING TO PATIENTS WHO ARE OR HAVE BEEN ENROLLED IN A CHEMICAL DEPENDENCY/SUBSTANCEABUSE PROGRAM, SOME INFORMATION MAY BE OMITTED. This clinical summary was aggregated from multiple sources. Caution should be exercised in using it in the provision of clinical care. This summary normalizes information from multiple sources, and as a consequence, information in this document may materially change the coding, format and clinical context of patient data. In addition, data may be omitted in some cases. CLINICAL DECISIONS SHOULD BE BASED ON THE PRIMARY CLINICAL RECORDS. [facility]. provides no warranty or guarantee of the accuracy or completeness of information in this document.
[2023-09-18 14:10] LABS: Alanine Aminotransferase 32 U/L (16-63); Aspartate Amino Transferase 14 U/L (15-37); Cholesterol 136 mg/dL (<=200); HDL Cholesterol 45 mg/dL (40-60); LDL Cholesterol Calculated 72.6 mg/dL; Triglycerides 92 mg/dL (<=150); VLDL CHOLESTEROL 18.4 mg/dL
[2023-09-18 15:13] LABS: Bilirubin Urine NEGATIVE (NEGATIVE); Blood Urine NEGATIVE (NEGATIVE); Clarity Urine CLEAR (CLEAR); Color Urine YELLOW (YELLOW); Glucose Urine UA NEGATIVE (NEGATIVE); Ketones Urine NEGATIVE (NEGATIVE); Leukocyte Esterase Urine NEGATIVE (NEGATIVE); Nitrite Urine NEGATIVE (NEGATIVE); Protein Urine NEGATIVE (NEG/TRACE); Specific Gravity Urine 1.025 (1.005-1.025); Urobilinogen Urine 0.2 EU/dL (0.2-1.0)
[2023-09-18 15:18] LABS: Urine Microscopic Indicated NO
[2023-09-19 04:11] LABS: PSA, Free 0.64 ng/mL; Prostate Specific Ag 2.3 ng/mL (0.0-4.0)
== END 2023-09-18 12:43 | disposition home or self-care (01) ==
LOC: LAB 12:45
PROVIDERS: PCP Nurse Practitioner; Visit Provider Nurse Practitioner
DX: E78.2 Mixed hyperlipidemia (principal); R97.20 Elevated prostate specific antigen [PSA]; R31.29 Other microscopic hematuria
CPT/HCPCS: 36415; 80061; 81003; 84153; 84154; 84450; 84460

== ENCOUNTER 2023-11-28 18:43 | Emergency (ER) | payer OTHER, SELFPAY ==
[2023-11-28] VITALS (17 sets, daily range): BP systolic 128; BP diastolic 77; PULSE 60–77; TEMP 36.9; O2SAT 97; BMI 32.1
--- OUTSIDE RECORDS SUMMARY | 2023-11-28 19:37 | XMS_ITS | CCD ---
Author Organization [facility] Care Team Providers Care Filter Tank Operator Name Role Phone KINJAL CHEW Unavailable Unavailable KINJAL CHEW Unavailable Unavailable Brooklynn Yeager Primary Care Provider [phone] MD Hernandez Lares Jr Emergency Provider AICHHOLZ, SOCIAL WORK[facility] [place] Attending Unavailable AICHHOLZ, SOCIAL WORK[facility] [place] Consulting Unavailable AICHHOLZ, SOCIAL WORK[facility] [place] Primary Care Unavailable AICHHOLZ, SOCIAL WORK[facility] [place] Admitting Unavailable AICHHOLZ, SOCIAL WORK[facility] [place] Attending Unavailable AICHHOLZ, SOCIAL WORK[facility] [place] Consulting Unavailable AICHHOLZ, SOCIAL WORK[facility] [place] Primary Care Unavailable AICHHOLZ, SOCIAL WORK[facility] [place] Admitting Unavailable AICHHOLZ, SOCIAL WORK[facility] [place] Primary Care Unavailable MISC, DR QUIGLEY Attending Unavailable MISC, DR QUIGLEY Consulting Unavailable MISC, DR QUIGLEY Admitting Unavailable Shobha, Brooklynn J Primary Care Provider MD Hernandez Lares Jr Emergency Provider MD Kevin Sheehan Attending Provider Kevin Sheehan Admitting Unavailable Kevin Sheehan Attending Unavailable Brooklynn Yeager Primary Care Unavailable Shobha Brooklynn J Primary Care Unavailable Hernandez Lares Jr Admitting Unavailable Hernandez Lares Jr Attending Unavailable Kevin Sheehan Admitting Unavailable Kevin Sheehan Attending Unavailable Wandahholjohnny MACHINE SETTER, Brooklynn Unavailable Eusebio Schneider MD Primary Care Provider Shobha HEATER FURNACE-SOCIAL WORKER [facility], Brooklynn Adi Primary Care Provider BROOK[place]NN YEAGER Attending Unavailable SHOBHA, BROOKLYNN Attending Unavailable LIDA SUH Attending Unavailable BROOKLYNN YEAGER Referring Unavailable AICHHOLJohnny BROOKLYNN J Primary Care Unavailable LIDA SUH Attending Unavailable AICBROOKLYNN NUNEZ Primary Care Unavailable ILDA SUH Referring Unavailable AICHHOLJohnny, BROOKLYNN J Primary Care Unavailable SUHLIDA MARIA Attending Unavailable SUHLIDA Referring Unavailable AICHHOLJohnny, BROOKLYNN J Primary Care Unavailable AICHHOLJohnny, BROOKLYNN J Referring Unavailable AICHHOLJohnny, BROOKLYNN J Primary Care Unavailable SUHLIDA MARIA Referring Unavailable AICHHOLJohnny, BROOKLYNN J Primary Care Unavailable SUHLIDA MARIA Admitting Unavailable LIDA SUH Attending Unavailable BROOKLYNN YEAGER Primary Care Unavailable EFE HENDERSON Attending Unavailable AICBROOKLYNN NUNEZ Primary Care Unavailable LIDA SUH Referring Unavailable AICHHOLJohnny, BROOKLYNN Joshi Primary Care Unavailable SUHLIDA MARIA G Referring Unavailable AICHHOLJohnny, BROOKLYNN J Primary Care Unavailable LIDA SUH Attending Unavailable LIDA SUH Referring Unavailable AICHBROOKLYNN ALDANA Primary Care Unavailable Allergies Allergy Classification Reported Allergen(s) Allergy Type Date of Onset Reaction(s) Facility (4 sources) Acetaminophen; Translations: [acetaminophen] Drug Allergy 09-04-19 23 Gastrointestinal Upset [facility] (6 sources) HYDROcodone; Translations: [hydrocodone] Drug Allergy 09-04-19 23 GI intolerance [facility] (1 source) Acetaminophen / HYDROcodone Drug Allergy [facility] (6 sources) Acetaminophen / HYDROcodone; Translations: [HYDROCODONE-ACET AMINOPHEN] Drug Allergy 09-04-19 24 [facility] Medications Current Medications Medication Drug Class(es) Dates Sig (Normalized) Sig (Original) atorvastatin 10 mg oral tablet (4 sources) HMG-CoA Reductase Inhibitor Start: 07-29-2023 End: 12-19-2023 take 1 tablet by mouth in the morning atorvastatin (LIPITOR) 10 mg tablet Take 1 tablet (10 mg total) by mouth in the morning. 0 09/20/2023 12/19/2023 Active citalopram 20 mg oral tablet (7 sources) Serotonin Reuptake Inhibitor Start: 08-21-2023 End: [...] 2022 12:00am lamoTRIgine 100 mg oral tablet (7 sources) Mood Stabilizer, Anti-epileptic Agent Start: 05-21-2023 [...] October 22, 2022 2:09pm polyethylene glycol 3350 99706 mg powder for oral solution (3 sources) [...] with acute cholecystitis without obstruction] 04-04-2020 Episodic Cancer of bladder (3 sources) Malignant neoplasm of overlapping sites of bladder; Translations: [Malignant neoplasm of overlapping sites of bladder] Onset: 11-13-2023 Chronic Conditions associated with dizziness or vertigo (1 source) Dizziness and giddiness; Translations: [Dizziness and giddiness] Onset: 09-05-2022 Episodic Disorders of lipid metabolism (5 sources) Hyperlipidemia; Translations: [Hyperlipidemia, unspecified] Onset: 07-22-2023 07-22-2023 Chronic Diverticulosis and diverticulitis (2 sources) Diverticulitis; Translations: [Diverticulitis of intestine, part unspecified, without perforation or abscess without bleeding] Onset: 06-26-2023 06-26-2023 Chronic Genitourinary symptoms and ill-defined conditions (8 sources) Microscopic hematuria; Translations: [Other microscopic hematuria] [...] conditions (not mental disorders or infectious disease) (14 sources) Encounter for screening, unspecified; Translations: [Patient [...] Unclassified (1 source) Elevated PSA Onset: 09-04-2023 Unclassified (1 source) Hematuria, microscopic [R31.29] Onset: 10-30-2023 Past or Other Problems Problem Classification Problem Date Documented Da te Episodic/Chronic Other nutritional; endocrine; and metabolic disorders (4 sources) Polydipsia; Translations: [POLYDIPSIA] Onset: 03-08-2022 Episodic Unclassified (1 source) CONTACT W/AND (SUSP) EXPOS COVID-19; Translations: [CONTACT W/AND (SUSP) EXPOS COVID-19] Onset: 11-03-2021 Results Test Name Value Interpretation Reference Range Facility NM BONE SCAN WHOLE BODYon NM BONE SCAN WHOLE BODY NM BONE SCAN WHO LE BODY HISTORY: A 52-year-old male with the history of the malignant neoplasm of the overlapping sites of the urinary bladder. Elevated serum PSA level. TECHNIQUE: Whole body radionuclide bone imaging COMPARISON: Comparison is made with CT urogram of 09/27/2023. FINDINGS: Whole body radionuclide bone imaging is performed in the anterior and posterior projections after intravenous administration of 25.2 mCi of technetium 99m MDP. There is a mild degree of increase uptake in both shoulders and knee joints consistent with the degenerative arthritis. There is a uniform and symmetrical uptake in the visualized skeleton. Activity is noted in the kidneys and urinary bladder without evidence of hydronephrosis. There is no scintigraphic evidence of bony metastasis or acute pathology. IMPRESSION: * No scintigraphic evidence of bony metastasis. 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 Finalized by Saman Diaz MD on 11/22/2023 9:16 PM Normal [facility] Cytologyon 11-13-2023 Cytology Normal [facility] Comment on above: Result Comment: [facility] [address] [place] [address] Cytology Consultation Patient Name:RENO ABREU:1970 (Age: 52)Gender:MTaken:4Reported:11/15/2023 16:54Physician(s):Lida Suh M.D. ([phone])Copy To: Rec. #:[id number]: #[id number] Final Cytologic Diagnosis Urine: Negative for high-grade urothelial cell carcinoma. nxk/11/15/2023 Interpretation [facility] [place] [address], License number: [id number].Electronically Signed Out By Álvaro Yanez MD Clinical History Malignant neoplasm of overlapping sites of bladder ([facility]) (C67.8). History of low grade urothelial cancer. Gross Description Received was 50 mL of yellow fluid in preservative labeled as [place], urine, clean catch midstream . 40 mL used for Cytology. See UroVysion report. Source of Specimen Urine Non YARD CALLER ThinPrep Fee Code(s): 1; 41083 Reference Lab Test IDon 05-0 UROVYSION FOR BLADDER CANCER SEE COMMENTS 11/21/2023 08:[address] [facility] Comment on above: Result Comment: NOTE Test Result Flag Unit RefValue ----- UroVysion (R) for Bladder Cancer Result Summary Negative Result No evidence of urothelial carcinoma. Interpretation See Note This test result does not rule out the possibility that the patient may have a low-grade (i.e. grade 1 or 2) non-invasive papillary urothelial carcinoma. Some patients with low grade non-invasive papillary urothelial carcinoma do not have abnormalities with this FISH test. ADDITIONAL INFORMATION Fluorescence in situ hybridization (FISH) with centromere probes for chromosomes 3 (D3Z1), 7(D7Z1), 17(D17Z1), and a locus specific probe for 9p21 ([employer] [place], [place]). This test has been modified from the nanofabrication specialist's instructions. Its performance characteristics were determined by [facility] in a manner consistent with CLIA requirements. This test has not been cleared or approved by the U.S. Food and Drug Administration. Reason for Referral Evaluate for urothelial carcinoma. Specimen Varies Source Urine, NOS Released By Adrianna Proctor M.D. Test Performed by: [place] [address] Device Engineer: Bear Mares M.D. Ph.D.; CLIA# [id number] URINE CULTUREon 11-13-2023 Bacteria identified Cx Nom (U) CULTURE RESULTS NO GROWTH AT <1000 CFU/mL Normal [facility] Comment on above: Performed By: #### 6 30-4 #### [facility] ([id number]) [address] [place] [address], [address] [place] [address] Surgical Pathologyon 024 Surgical Pathology Normal [facility] Comment on above: Result Comment: [facility] [address] [place] [address] Surgical Pathology Consultation Patient Name:RENO ABREU:1970 (Age: 52)Gender:MTaken:4Reported:4Physician(s):Anthony Suh M.D. ([phone])Copy To: Rec. #:[id number]: #[id number] Final Pathologic Diagnosis Bladder, TURB: Non-invasive PAPILLARY UROTHELIAL CARCINOMA, low grade. Muscularis propria is present. No invasion into the lamina propria or muscularis propria identified. Report Electronically Signed Out cjb/11/01/2023vanessa Partida MD Interpretation performed at [facility], [address] [place] [address], License number: [id number]. Clinical History Hematuria, microscopic. Bladder tumor, lateral to the right ureteral orifice. Gross Description Received in formalin labeled BRADY, bladder are 8 mosqueda irregular fragments of soft tissue, ranging from 0.2 to 0.6 cm in greatest dimension. Filtered and submitted in a single cassette. (1, ns, [id number], m6) MG mjg/10/30/2023O Specimen(s) Received Bladder tumor lateral to the right ureteral orifice Fee Codes(s): 1; 16442 Prostate specific Ag [Mass/V ol]on 10-17-2023 PROSTATIC SPEC ANT 2.43 ng/mL Normal 0.00-4.00 [facility] Comment on above: Result Comment: The method used for this test is [employer] DXI chemiluminescent immunoassay. Values obtained by different assay methods cannot be used interchangeably. Performed By: #### 2 857-1 #### [facility] ([id number]) [address], [address] [place] [address] URINALYSISon 10-17-2023 Bilirubin Ql (U) Negative Normal NEG [facility] BLOOD/HGB Trace Abnormal NEG [facility] Color (U) YELLOW Normal YELLOW [facility] Glucose Ql (U) Negative Normal NEG [facility] Ketones Ql (U) Negative Normal NEG [facility] Leukocyte esterase Test strip Ql (U) Negative Normal NEG [facility] Nitrite Ql (U) Negative Normal NEG [facility] pH (U) 6.0 [pH] Normal 5.0-8.5 [facility] Protein Ql (U) Trace Abnormal NEG [facility] R.B.CELLS <1 Normal 0-5 [facility] Specific gravity (U) [Rel density] 1.020 Normal 1.003-1.035 [facility] TURBIDITY CLEAR Normal CLEAR [facility] Urobilinogen (U) [Mass/Vol] mg/dL Normal <1.1 [facility] W.B.CELLS 3 /hpf Normal 0-5 [facility] URINE CULTUREon 10-17-2023 Bacteria identified Cx Nom (U) CULTURE RESULTS <10,000 ORGANISMS/ML NORMAL URO GENITAL ANIL Normal [facility] Comment on above: Performed By: #### 6 30-4 #### [facility] ([id number]) [address], [address] [place] [address] CT UROGRAMon 10-01-[address] URO[address] urogram on 09/27/2023 CLINICAL HISTORY: Microscopic hematuria, dysuria, elevated PSA COMPARISON: None. TECHNIQUE: CT of the abdomen and pelvis (CT urogram) was performed prior to and following the uneventful administration of 100 cc Omnipaque 350 nonionic intravenous contrast utilizing thin section axial imaging with multiphasic contrast injection. Coronal and sagittal reformatted images were generated. Volume rendered 3 -D Maximum intensity projection reconstructions constructed under concurrent physician supervision on a independent workstation and reviewed for purposes of evaluation of the urinary tract and collecting systems. Automatic dose exposure reduction technique utilized. FINDINGS: Lung bases are clear. No pleural fluid collection. Visible heart is within normal limits. There is a 2.9 cm hemangioma along the dome of the right hepatic lobe. Additional nonenhancing hepatic lesions are consistent with simple cysts that require no additional evaluation. No biliary ductal dilatation. Portal vein is patent. Gallbladder is absent. Pancreas, spleen and adrenal glands are within normal limits. Symmetric renal enhancement. Subcentimeter left renal cortical hypodensity too small to definitively characterize with CT. No renal calculi or hydronephrosis. No perinephric fluid collection. No ureteral distention with normal course of the ureters. Enlarged prostate with mass effect at the base of the bladder. Filling defect in the bladder on the delayed images near the right ureterovesical junction could represent artifact or polypoid mass. Small bowel lipoma in the left lower quadrant. No acute bowel obstruction or inflammatory change. Minimal diverticular disease. Normal appendix. No free air or fluid. No mesenteric lymphadenopathy. Mesenteric vessels are patent. Normal caliber aorta and iliac arteries. Right-sided IVC. No retroperitoneal lymph node enlargement. Multiple punctate sclerotic lesions involving the pelvis as well as the left femoral head. No acute osseous abnormality. IMPRESSION: 1. Enlarged prostate with mass effect at the base of the bladder. There is a filling defect within the bladder on the delayed images that could represent artifact versus a polypoid mass. 2. No urolithiasis. 3. Multiple punctate sclerotic lesions involving the pelvis and left femoral head. In the setting of elevated PSA and absence of comparison studies, metastatic disease must be considered. 4. Additional incidental/chronic findings as described. All CT scans at this facility use dose modulation, iterative reconstruction, and/or weight based dosing when appropriate to reduce radiation dose to as low as reasonably achievable Finalized by Mars Alcala MD on 10/01/2023 1:03 PM Normal [facility] Cytologyon 09-04-2023 Cytology Normal [facility] Comment on above: Result Comment: [facility] [address] [place] [address] Cytology Consultation Patient Name:EBER ABREUOB:1970 (Age: 52)Gender:MTaken:09/04/2023eported:09/06/2023 18:36Physician(s):Lida Suh M.D. ([phone])Copy To: Rec. #:[id number]: #[id number] Final Cytologic Diagnosis Urine: Negative for high-grade urothelial cell carcinoma. [facility]/09/06/2023 [place] [address], License number: [id number].Electronically Signed Out By Brandt Rosas M.D. Clinical History Hematuria, microscopic (R31.29). Gross Description Received was 70 mL of yellow fluid unfixed labeled as [place], urine . CytoLyt added in lab. Source of Specimen Urine Non YARD CALLER ThinPrep Fee Code(s): 1; 305[address] [facility] 10-22-2022 L Specimen: Received: 10/22/22 Status: [facility] Ward Num: [id number] Spec Type: Surgical Subm Dr: Kevin Sheehan MD Tissues: A Lipoma (RIGHT FOREARM MASS) B Lipoma (RIGHT THIGH MASS) C Lipoma (LEFT THIGH MAS) Procedures: HE/3, Gross/Micro L3/3 Age/ Patient Sex Location Account Attending Physician [place] Abreu/Stef[place] [id number] Kevin Sheehan MD SPEC NUM: [id number] RECD: 10/22/22 STATUS: [facility] WARD NUM: [id number] ABBY: 10/22/22- SUBM DR: Kevin Sheehan MD ENTERED: 10/22/[address] [facility] [address]: SPEC TYPE: Surgical DEPT: S ENTERED BY: [id number] [facility] BY: [id number] ORDERED: HE/3, Gross/Micro L3/3 ORDERED: HE/3, Gross/Micro [...] revealing a homogeneous, yellow- mosqueda cut surface. Turret Lathe Tender sections are submitted in one cassette labeled A1. B. Received in formalin labeled with the patient's name, number and right thigh mass is a 3.5 x 3.5 x 1.6 cm portion of yellow, lobular fat that is partially surfaced by a thin, translucent membrane. The specimen is inked and sectioned revealing a homogeneous, yellow- Specimen: [id number] Received: 10/22/22 Status: [facility] Sylvia Num: [id number] Spec Type: Surgical Subm Dr: Kevin Sheehan MD Tissues: A Lipoma (RIGHT FOREARM MASS) B Lipoma (RIGHT THIGH MASS) C Lipoma (LEFT THIGH MAS) Procedures: HE/3, Gross/Micro L3/3 Patient: Reno Abreu [id number] (Continued) Specimen: Received: 10/22/22 (Continued) Gross Description (Continued) Signed (signature on file) Eli New MD 10/23/22 1426 Specimen: Received: 10/22/22 Status: [facility] Ward Num: [id number] Spec Type: Surgical Subm Dr: Kevin Sheehan MD Tissues: A Lipoma (RIGHT FOREARM MASS) B Lipoma (RIGHT THIGH MASS) C Lipoma (LEFT THIGH MAS) Procedures: HE/3, Gross/Micro L3/3 Patient: Reno Abreu [id number] (Continued) Specimen: [id number] Received: 10/22/22 (Continued) Gross Description (Continued) mosqueda cut surface. Turret Lathe Tender sections are submitted in one cassette labeled B1. C. Received in formalin labeled with the patient's name, number and left thigh mass is a 5.5 x 3.0 x 2.1 cm portion of yellow, lobular fat that is partially surface by a thin, translucent membrane. The specimen is inked and sectioned revealing a homogeneous, yellow- mosqueda cut surface. Turret Lathe Tender sections are submitted in one cassette labeled [...] support the above pathologic diagnosis. CPT Codes 68951?3 Specimen: Received: 10/22/22 Status: [facility] Ward Num: [id number] Spec Type: Surgical Subm Dr: Kevin Sheehan MD Tissues: A Lipoma (RIGHT FOREARM MASS) B Lipoma (RIGHT THIGH MASS) C Lipoma (LEFT THIGH MAS) Procedures: MAGGIE/3 Gross/Negro L3/3 --------- (more content not included)... [facility] Ruben 10-03-2022 L Specimen: [id number] Received: 10/04/22 Status: [facility] Bassettflorencio Num: [id number] Spec Type: Surgical Subm Dr: Kevin Sheehan MD Tissues: A Colon Biopsy (TRANSVERSE POLYP) Procedures: MAGGIE/2Karlie/Negro L4 Age/ Patient Sex Location Account Attending Physician Reno Abreu/Stefano [place] [id number] Kevin Sheehan MD SPEC NUM: [id number] RECD: 10/04/22 STATUS: [facility] WARD NUM: [id number] ABBY: 10/03/22 DR: Kevin Sheehan MD ENTERED: 10/04/[address] [facility] [address]: [facility] SPEC TYPE: Surgical DEPT: S ORDERED: HE/2, [...] support the above pathologic diagnosis. CPT Codes 19700 Specimen: [id number] Received: 10/04/22 Status: [facility] Ward Num: [id number] Spec Type: Surgical Subm Dr: Kevin Sheehan MD Tissues: A Colon Biopsy (TRANSVERSE POLYP) Procedures: HE/2, Gross/Micro L4 Patient: Reno Abreu [id number] (Continued) Signed (signature on file) Eli New MD 10/05/22 1132 [facility] BOX TEST SENT OUTon 09-19-19 SENT TO REF LAB 09/18/2022 Normal [facility] Comment on above: Performed By: #### B OX #### [facility] [address] [place] [address] Dr. Pablo Blanchard COVID-19 / Flu A/B [...] or Cepheid Disclaimer revoked sooner. PERFORMED BY: [facility] [address] [place] [address] PATHOLOGIST B AND B GANG WORKER HIREN KAPLAN M.D. Normal [facility] Comment on above: Performed By: #### C OVID19 FLU RSV, CEPHEID NEG #### [address] Cepheid COVID PCR Negativeon 09-05-2022 SARS-CoV-2 (COVID-19) RNA NANICE+probe Ql (Unsp spec) Negative Normal Negative [facility] Comment on above: Result Comment: This is a duplicate Cepheid Xpert Xpress CoV-2/Flu/RSV Plus RNA by RT-PCR result to be used for statistical tracking purpose only. PERFORMED BY: [place] [address] PATHOLOGIST B AND B GANG WORKER HIREN KAPLAN M.D. Performed By: #### C OVID19 FLU RSV, CEPHEID NEG #### [address] Complete Blood Count Auto Di ffon 09-05-2022 Basophils (Bld) [#/Vol] 0.1 10*3/uL Normal 0.0-0.2 [facility] Comment on above: Result Comment: PERF ORMED BY: [place] [address] PATHOLOGIST B AND B GANG WORKER HIREN KAPLAN M.D. Performed By: #### C KMB, HS TROP, CBC, CK, CMP #### [address] Basophils/100 WBC (Bld) 0.7 % Normal . [facility] Comment on above: Performed By: #### C KMB, HS TROP, CBC, CK, CMP #### [address] Eosinophils (Bld) [#/Vol] 0.2 10*3/uL Normal 0.0-0.45 [facility] Comment on above: Performed By: #### C KMB, HS TROP, CBC, CK, CMP #### [address] Eosinophils/100 WBC (Bld) 2.5 % Normal . [facility] Comment on above: Performed By: #### C KMB, HS TROP, CBC, CK, CMP #### [address] Erythrocyte distribution width (RBC) [Ratio] 13.1 % Normal 12.0-14.8 [facility] Comment on above: Performed By: #### C KMB, HS TROP, CBC, CK, CMP #### [place] [address] [place] Hematocrit (Bld) [Volume fraction] 45.8 % Normal 38.8-50.0 [facility] Comment on above: Performed By: #### C KMB, HS TROP, CBC, CK, CMP #### [facility] [address] Hemoglobin (Bld) [Mass/Vol] 15.6 g/dL Normal 13.0-17.0 [facility] Comment on above: Performed By: #### C KMB, HS TROP, CBC, CK, CMP #### [address] Lymphocytes (Bld) [#/Vol] 2.2 10*3/uL Normal 1.00-4.8 [facility] Comment on above: Performed By: #### C KMB, HS TROP, CBC, CK, CMP #### [address] Lymphocytes/100 WBC (Bld) 26.2 % Normal . [facility] Comment on above: Performed By: #### C KMB, HS TROP, CBC, CK, CMP #### [address] MCH (RBC) [Entitic mass] 30.7 pg Normal 27.5-35.2 [facility] Comment on above: Performed By: #### C KMB, HS TROP, CBC, CK, CMP #### [address] MCV (RBC) [Entitic vol] 89.9 fL Normal 83.5-101 F [facility] Comment on above: Performed By: #### C KMB, HS TROP, CBC, CK, CMP #### [address] Mean Corpuscular HGB Conc 34.1 g/dL Normal 32.5-35.6 [facility] Comment on above: Performed By: #### C KMB, HS TROP, CBC, CK, CMP #### [address] Monocytes (Bld) [#/Vol] 0.7 10*3/uL Normal 0.0-0.8 [facility] Comment on above: Performed By: #### C KMB, HS TROP, CBC, CK, CMP #### [facility] [address] [place] [address] [place] Monocytes/100 WBC (Bld) 16.89 % Normal 0.00-20.00 F [facility] Comment on above: Performed By: #### C KMB, HS TROP, CBC, CK, CMP #### [facility] [address] [place] [address] [place] Monocytes/100 WBC (Bld) 8.1 % Normal . F [facility] Comment on above: Performed By: #### C KMB, HS TROP, CBC, CK, CMP #### [facility] [address] [place] [address] [place] Neutrophils (Bld) [#/Vol] 5.1 10*3/uL Normal 1.8-7.7 [facility] Comment on above: Performed By: #### C KMB, HS TROP, CBC, CK, CMP #### [facility] [address] [place] [address] [place] Neutrophils/100 WBC (Bld) 62.5 % Normal . [facility] Comment on above: Performed By: #### C KMB, HS TROP, CBC, CK, CMP #### [facility] [address] [place] [address] [place] NRBC% 0.1 /100{WBC} Normal 0-0.5 [facility] Comment on above: Performed By: #### C KMB, HS TROP, CBC, CK, CMP #### [facility] [address] [place] [address] [place] Platelet mean volume (Bld) [Entitic vol] 7.8 fL Normal 6.6-10.1 [facility] Comment on above: Performed By: #### C KMB, HS TROP, CBC, CK, CMP #### [facility] [address] [place] [address] [place] Platelets (Bld) [#/Vol] 224 10*3/uL Normal 150-450 [facility] Comment on above: Performed By: #### C KMB, HS TROP, CBC, CK, CMP #### [facility] [address] [place] [address] RBC (Bld) [#/Vol] 5.09 10*6/uL Normal 3.90-5.60 [facility] Comment on above: Performed By: #### C KMB, HS TROP, CBC, CK, CMP #### [address] WBC (Bld) [#/Vol] 8.2 10*3/uL Normal 4.1-10.5 [facility] Comment on above: Performed By: #### C KMB, HS TROP, CBC, CK, CMP #### [address] Comprehensive Metabolic Pane ruben 09-05-2022 Albumin [Mass/Vol] 3.6 g/dL Normal 3.2-5.5 [facility] Comment on above: Performed By: #### C KMB, HS TROP, CBC, CK, CMP ####[address] Albumin/Globulin [Mass ratio] 1.2 {ratio} Normal [facility] Comment on above: Performed By: #### C KMB, HS TROP, CBC, CK, CMP ####[address] ALP [Catalytic activity/Vol] 85 U/L Normal 32-92 [facility] Comment on above: Performed By: #### C KMB, HS TROP, CBC, CK, CMP ####[address] ALT [Catalytic activity/Vol] 26 U/L Normal 10-60 [facility] Comment on above: Performed By: #### C KMB, HS TROP, CBC, CK, CMP ####[address] Anion gap [Moles/Vol] 15.6 mmol/L High 6.0-15.0 [facility] Comment on above: Performed By: #### C KMB, HS TROP, CBC, CK, CMP ####[place] [id number] [facility] AST [Catalytic activity/Vol] 22 U/L Normal 10-42 [facility] Comment on above: Performed By: #### C KMB, HS TROP, CBC, CK, CMP ####[address] Bilirubin [Mass/Vol] 0.6 mg/dL Normal 0.3-1.2 [facility] Comment on above: Performed By: #### C KMB, HS TROP, CBC, CK, CMP ####[address] Calcium [Mass/Vol] 8.8 mg/dL Normal 8.2-10.2 [facility] Comment on above: Performed By: #### C KMB, HS TROP, CBC, CK, CMP ####[address] Chloride [Moles/Vol] 101 mmol/L Normal 95-114 [facility] Comment on above: Performed By: #### C KMB, HS TROP, CBC, CK, CMP ####[place] [id number] [facility] CO2 [Moles/Vol] 25.4 mmol/L Normal 22.0-30.0 [facility] Comment on above: Performed By: #### C KMB, HS TROP, CBC, CK, CMP ####[place] [id number] [facility] Creatinine [Mass/Vol] 1.01 mg/dL Normal 0.64-1.27 [facility] Comment on above: Performed By: #### C KMB, HS TROP, CBC, CK, CMP ####[place] [id number] [facility] Creatinine Clr Calc Pharmacy 116.51 Normal [facility] Comment on above: Result Comment: PERF ORMED BY: [facility] [address] [place] [address] PATHOLOGIST [employer] HIREN KAPLAN M.D. Performed By: #### C KMB, HS TROP, CBC, CK, CMP ####[place] [id number] [facility] Estimated GFR ( Tamara > 60 Normal [facility] Comment on above: Result Comment: GFR estimated reference range: According to KDOQI guidelines, <60 ml/min/1.73m2 is sufficient to diagnose a patient with chronic kidney disease. Performed By: #### C KMB, HS TROP, CBC, CK, CMP ####[address] Estimated GFR (Non- Am > 60 Normal [facility] Comment on above: Performed By: #### C KMB, HS TROP, CBC, CK, CMP ####[address] Globulin (S) [Mass/Vol] 2.9 g/dL Normal [facility] Comment on above: Performed By: #### C KMB, HS TROP, CBC, CK, CMP ####[place] [id number] [facility] Glucose [Mass/Vol] 99 mg/dL Normal 70-100 [facility] Comment on above: Result Comment: [place] Glucose Reference Range is dependent on time and content of last meal. Glucose of more than 200 mg/dL in a nonstressed, ambulatory subject supports the diagnosis of Diabetes Mellitus. ADA recommended reference range Performed By: #### C KMB, HS TROP, CBC, CK, CMP ####[place] [id number] [facility] Potassium [Moles/Vol] 4.0 mmol/L Normal 3.5-5.1 [facility] Comment on above: Performed By: #### C KMB, HS TROP, CBC, CK, CMP ####[place] [id number] [facility] Protein [Mass/Vol] 6.5 g/dL Normal 6.1-7.9 [facility] Comment on above: Performed By: #### C KMB, HS TROP, CBC, CK, CMP ####[place] [id number] [address] Sodium [Moles/Vol] 138 mmol/L Normal 136-146 [facility] Comment on above: Performed By: #### C KMB, HS TROP, CBC, CK, CMP ####[address] Urea nitrogen [Mass/Vol] 13 mg/dL Normal 9-23 [facility] Comment on above: Performed By: #### C KMB, HS TROP, CBC, CK, CMP ####[place] [id number] [address] Creatine Kinaseon 09-05-2022 CK [Catalytic activity/Vol] 72 U/L Normal 22-269 [facility] Comment on above: Performed By: #### C KMB, HS TROP, CBC, CK, CMP #### [facility] [address] Creatinine Kinase MBon 09-05 CK.MB [Mass/Vol] 0.7 ng/mL Normal 0.6-6.3 [facility] Comment on above: Performed By: #### C KMB, HS TROP, CBC, CK, CMP #### [facility] [address] CKMB Relative Index 0.9 % Normal 0.00-2.50 [facility] Comment on above: Performed By: #### C KMB, HS TROP, CBC, CK, CMP #### [facility] [address] Dipstick and Microscopicon 0 09-05-2022 Appearance (U) Clear Normal Clear [facility] Comment on above: Order Comment: Name Collection Type:: Clean-Voided Midstream Performed By: #### A DDONUAPLUS ####[address] Bacteria,Urine None Seen Normal None Seen [facility] Comment on above: Order Comment: Name Collection Type:: Clean-Voided Midstream Performed By: #### A DDONUAPLUS ####[address] [address] [facility] Bilirubin,Urine Negative Normal Negative [facility] Comment on above: Order Comment: Name Collection Type:: Clean-Voided Midstream Performed By: #### A DDONUAPLUS ####[address] [address] [facility] Color (U) Yellow Normal Yellow [facility] Comment on above: Order Comment: Name Collection Type:: Clean-Voided Midstream Performed By: #### A DDONUAPLUS ####[place] [id number] [facility] Glucose Ql (U) Normal Normal Normal [facility] Comment on above: Order Comment: Name Collection Type:: Clean-Voided Midstream Performed By: #### A DDONUAPLUS ####[address] [address] [facility] Hyaline Casts,Urine None Seen Normal 0-8 [facility] Comment on above: Order Comment: Name Collection Type:: Clean-Voided Midstream Performed By: #### A DDONUAPLUS ####[place] [id number] [facility] Ketones Ql (U) Trace High Negative [facility] Comment on above: Order Comment: Name Collection Type:: Clean-Voided Midstream Performed By: #### A DDONUAPLUS ####[address] [address] [facility] Leukocyte esterase Test strip Ql (U) Negative Normal Negative [facility] Comment on above: Order Comment: Name Collection Type:: Clean-Voided Midstream Performed By: #### A DDONUAPLUS ####[place] [id number] [facility] Nitrite,Urine Negative Normal Negative [facility] Comment on above: Order Comment: Name Collection Type:: Clean-Voided Midstream Performed By: #### A DDONUAPLUS ####[place] [id number] [facility] Occult Blood,Urine Negative Normal Negative [facility] Comment on above: Order Comment: Name Collection Type:: Clean-Voided Midstream Result Comment: PERF ORMED BY: [facility] [address] [place] [id number] PATHOLOGIST [employer] HIREN KAPLAN M.D. Performed By: #### A DDONUAPLUS ####[address] [address] [facility] pH (U) 6.0 [pH] Normal 5.0-9.0 [facility] Comment on above: Order Comment: Name Collection Type:: Clean-Voided Midstream Performed By: #### A DDONUAPLUS ####[address] [address] [facility] Protein (U) [Mass/Vol] 100 mg/dL High Negative [facility] Comment on above: Order Comment: Name Collection Type:: Clean-Voided Midstream Performed By: #### A DDONUAPLUS ####[address] [address] [facility] RBC,Urine 3-4 Normal 0-4 [facility] Comment on above: Order Comment: Name Collection Type:: Clean-Voided Midstream Performed By: #### A DDONUAPLUS ####[address] [address] [facility] Specificy [place],Urine 1.027 Normal 1.001-1.030 [facility] Comment on above: Order Comment: Name Collection Type:: Clean-Voided Midstream Performed By: #### A DDONUAPLUS ####[address] [address] [facility] Sperm,Urine 3-4 High 0-2 [facility] Comment on above: Order Comment: Name Collection Type:: Clean-Voided Midstream Result Comment: PERF ORMED BY: [facility] [address] [place] [id number] PATHOLOGIST [employer] HIREN KAPLAN M.D. Performed By: #### A DDONUAPLUS ####[place] [address] [place] [address] [facility] Squamous Epithelial Cell,Urine None Seen Normal 0-2 [facility] Comment on above: Order Comment: Name Collection Type:: Clean-Voided Midstream Performed By: #### A DDONUAPLUS ####[facility] [place] [address] [facility] Urobilinogen,Urine Normal Normal Normal [facility] Comment on above: Order Comment: Name Collection Type:: Clean-Voided Midstream Performed By: #### A DDONUAPLUS ####[place] [address] [place] [address] [facility] WBC,Urine 3-4 Normal 0-4 [facility] Comment on above: Order Comment: Name Collection Type:: Clean-Voided Midstream Performed By: #### A DDONUAPLUS ####[address] [address] [facility] ECG 12 lead ECGon 09-05-2022 ECG 12 lead ECG [facility] [place] [address] Electrocardiograph Report Signed Patient: Reno Abreu MR#: [id number] 5 : 1970 Acct:[id number] Age/Sex: 51 / M ADM Date: 09/04/22 Loc: ER Room: Type: [facility] ER Attending Dr: Ordering Provider: Hernandez Lares [...] ECGs available Confirmed by HERNANDEZ LARES MD ([id number]) on 09/05/2022 4:12:57 AM Referred By: Electronically Signed By:HERNANDEZ LARES MD Transcribed By: MUS Signed By Hernandez Lares Jr, MD [id number] Normal [facility] Troponin I High Sensitivityo n 09-05-2022 Troponin I High Sensitivity < 3 Normal 0-20 [facility] Comment on above: Result Comment: PERF ORMED BY: [place] [address] PATHOLOGIST [employer] HIREN KAPLAN M.D. Performed By: #### C KMB, HS TROP, CBC, CK, CMP #### [address] XR abdomen min 2Von 09-05-19 XR abdomen min 2V [facility] Main [place] [address] [place] [address] XRay Report Signed Patient: eRno Abreu MR#: [id number] 5 : 1970 Acct:[id number] Age/Sex: 51 / M ADM Date: 09/04/22 Loc: ER Room: Type: [facility] ER Attending Dr: Copies to: Hernandez Lares [...] Padilla Jr., D.O.09/05/2022 8:53 AM Dictation Location: [place] [address] Transcribed By: [facility] 09/05/22 0853 Dictated By: Abilio Padilla Jr, DO 09/05/22 0852 Signed By: 09/05/22 0853 Normal [facility] Aspartate aminotransferase [ Enzymatic activity/volume] in Serum or PlasmaOrdered By: Hernandez Lares on 09-04-2022 AST [Catalytic activity/Vol] 22 U/L 10-42 [facility] Automated erythrocytes count in urine sediment (number/area)Ordered By: Hernandez Lares on 09-04-2022 RBC Auto (Urine sed) [#/Area] 3-4 [HPF] 0-4 [facility] Automated leukocytes count i n urine sediment (number/area)Ordered By: Hernandez Lares on 09-04-2022 WBC Auto (Urine sed) [#/Area] 3-4 [HPF] 0-4 [facility] Basophils Auto (Bld) [#/Vol] Ordered By: Hernandez Lares on 09-04-2022 Basophils (Bld) [#/Vol] 0.1 10*3/uL 0.0-0.2 [facility] Basophils/100 WBC Auto (Bld) Ordered By: Hernandez Lares on 09-04-2022 Basophils/100 WBC (Bld) 0.7 % . F [facility] Bilirubin Test strip Ql (U)O rdered By: Hernandez Lares on 09-04-2022 Bilirubin Ql (U) Negative Negative [facility] Body fluid albumin measureme nt (mass/volume)Ordered By: Hernandez Lares on 09-04-2022 Albumin (Body fld) [Mass/Vol] 3.6 g/dL 3.2-5.5 [facility] COVID CepheidOrdered By: Chapo Lares on 09-04-2022 SARS-CoV-2 (COVID-19) Ab IA Ql Negative Negative [facility] Comment on above: This is a duplicate [employer] Xpert Xpress CoV-2/Flu/RSV Plus RNA by RT-PCR result to be used for statistical tracking purpose only. SARS-CoV-2 (COVID-19) RNA NANCIE+probe Ql (Unsp spec) [facility] SARS-CoV-2 (COVID-19) RNA NANCIE+probe Ql (Unsp spec) [facility] Color Auto (U)Ordered By: Brandon Lares on 09-04-2022 Color (U) Yellow Yellow [facility] Creatine kinase [Enzymatic a ctivity/volume] in Serum or PlasmaOrdered By: Hernandez Lares on 09-04-2022 CK [Catalytic activity/Vol] 72 U/L [facility] Creatine kinase.MB [Mass/vol ume] in Serum or PlasmaOrdered By: Hernandez Lares on 09-04-2022 CK.MB [Mass/Vol] 0.7 ng/mL 0.6-6.3 [facility] Creatinine and Glomerular fi ltration rate.predicted panel (S/P/Bld)Ordered By: Hernandez Lares on 09-04-2022 Creatinine [Mass/Vol] 1.01 mg/dL 0.64-1.27 [facility] Eosinophils Auto (Bld) [#/Vo l]Ordered By: Hernandez Lares on 09-04-2022 Eosinophils (Bld) [#/Vol] 0.2 10*3/uL 0.0-0.45 [facility] Eosinophils/100 WBC Auto (Bl d)Ordered By: Hernandez Lares on 09-04-2022 Eosinophils/100 WBC (Bld) 2.5 % . [facility] Erythrocyte distribution wid th Auto (RBC) [Ratio]Ordered By: Hernandez Lares on 09-04-2022 Erythrocyte distribution width (RBC) [Ratio] 13.1 % 12.0-14.8 [facility] Estimated glomerular filtrat ion rate (GFR) non- AmericanOrdered By: Hernandez Lares on 09-04-2022 GFR/1.73 sq M.predicted among non-blacks MDRD (S/P/Bld) [Vol rate/Area] > 60 mL/Min [facility] Globulin Calc (S) [Mass/Vol] Ordered By: Hernandez Lares on 09-04-2022 Globulin (S) [Mass/Vol] 2.9 g/dL F [facility] Hematocrit Auto (Bld) [Volum e fraction]Ordered By: Hernandez Lares on 09-04-2022 Hematocrit (Bld) [Volume fraction] 45.8 % 38.8-50.0 [facility] Hemoglobin [Mass/volume] in BloodOrdered By: Hernandez Lares on 09-04-2022 Hemoglobin (Bld) [Mass/Vol] 15.6 g/dL 13.0-17.0 [facility] Ketones Auto test strip (U) [Mass/Vol]Ordered By: Hernandez Lares on 09-04-2022 Ketones (U) [Mass/Vol] Trace Negative Fi relaFormerly [facility] - UrinalysisOrder ed By: Hernandez Lares on 09-04-2022 Hyaline casts LM Ql (Urine sed) None seen [LPF] 0-8 [facility] Leukocytes [#/volume] correc pooja for nucleated erythrocytes in Blood by Automated counOrdered By: Hernandez Lares on 09-04-2022 WBC corrected for nucl RBC Auto (Bld) [#/Vol] 8.2 10*3/uL 4.1-10.5 [facility] Lymphocytes Auto (Bld) [#/Vo l]Ordered By: Hernandez Lares on 09-04-2022 Lymphocytes (Bld) [#/Vol] 2.2 10*3/uL 1.00-4.8 [facility] Lymphocytes/100 WBC Auto (Bl d)Ordered By: Hernandez Lares on 09-04-2022 Lymphocytes/100 WBC (Bld) 26.2 % . [facility] MCH Auto (RBC) [Entitic mass ]Ordered By: Hernandez Lares on 09-04-2022 MCH (RBC) [Entitic mass] 30.7 pg 27.5-35.2 [facility] MCHC Auto (RBC) [Mass/Vol]Or dered By: Hernandez Lares on 09-04-2022 MCHC (RBC) [Mass/Vol] 34.1 g/dL 32.5-35.6 [facility] MCV Auto (RBC) [Entitic vol] Ordered By: Hernandez Lares on 09-04-2022 MCV (RBC) [Entitic vol] 89.9 fL 83.5-101 F [facility] Monocyte distribution width [Entitic volume] in Blood by AutomatedOrdered By: Hernandez Lares on 09-04-2022 Monocyte distribution width Auto (Bld) [Entitic vol] 16.89 % 0.00-20.00 [facility] Monocytes Auto (Bld) [#/Vol] Ordered By: Hernandez Lares on 09-04-2022 Monocytes (Bld) [#/Vol] 0.7 10*3/uL 0.0-0.8 [facility] Monocytes/100 WBC Auto (Bld) Ordered By: Hernandez Lares on 09-04-2022 Monocytes/100 WBC (Bld) 8.1 % . F [facility] Neutrophils Auto (Bld) [#/Vo l]Ordered By: Hernandez Lares on 09-04-2022 Neutrophils (Bld) [#/Vol] 5.1 10*3/uL 1.8-7.7 [facility] Neutrophils/100 WBC Auto (Bl d)Ordered By: Hernandez Lares on 09-04-2022 Neutrophils/100 WBC (Bld) 62.5 % . [facility] Nitrite Test strip Ql (U)Ord ered By: Hernandez Lares on 09-04-2022 Nitrite Ql (U) Negative Negative [facility] No Panel InformationOrdered By: Hernandez Lares on 09-04-2022 Estimated GFR () > 60 mL/Min [facility] Comment on above: GFR estimated refere nce range: According to KDOQI guidelines, <60 ml/min/1.73m2 is sufficient to diagnose a patient with chronic kidney disease. Pharmacy Creatinine Clearance (Chem 116.51 [facility] Nucleated erythrocytes [Pres ence] in Blood by Automated countOrdered By: Hernandez Lares on 09-04-2022 Nucleated RBC Auto Ql (Bld) 0.1 /100{WBC} 0-0.5 [facility] Platelet mean volume Auto (B ld) [Entitic vol]Ordered By: Hernandez Lares on 09-04-2022 Platelet mean volume (Bld) [Entitic vol] 7.8 fL 6.6-10.1 [facility] Platelets Auto (Bld) [#/Vol] Ordered By: Hernandez Lares on 09-04-2022 Platelets (Bld) [#/Vol] 224 10*3/uL 150-450 [facility] Protein Auto test strip (U) [Mass/Vol]Ordered By: Hernandez Lares on 09-04-2022 Protein (U) [Mass/Vol] 100 mg/dL Negative [facility] Protein [Mass/volume] in Ser um or PlasmaOrdered By: Hernandez Lares on 09-04-2022 Protein [Mass/Vol] 6.5 g/dL 6.1-7.9 [facility] RBC Auto (Bld) [#/Vol]Ordere d By: Hernandez Lares on 09-04-2022 RBC (Bld) [#/Vol] 5.09 10*6/uL 3.90-5.60 [facility] Serum or plasma alanine storey otransferase measurement without P-5'-P (enzymatic activiOrdered By: Hernandez Lares on 09-04-2022 ALT No additional P-5'-P [Catalytic activity/Vol] 26 U/L 10-60 [facility] Serum or plasma albumin/glob ulin mass ratioOrdered By: Hernandez Lares on 09-04-2022 Albumin/Globulin [Mass ratio] 1.2 {ratio} [facility] Serum or plasma alkaline alexandro sphatase measurement (enzymatic activity/volume)Ordered By: Hernandez Lares on 09-04-2022 ALP [Catalytic activity/Vol] 85 U/L 32-92 [facility] Serum or plasma anion gap de terminationOrdered By: Hernandez Lares on 09-04-2022 Anion gap [Moles/Vol] 15.6 mmol/L 6.0-15.0 [facility] Serum or plasma calcium angie urement (mass/volume)Ordered By: Hernandez Lares on 09-04-2022 Calcium [Mass/Vol] 8.8 mg/dL 8.2-10.2 [facility] Serum or plasma chloride rocio surement (moles/volume)Ordered By: Hernandez Lares on 09-04-2022 Chloride [Moles/Vol] 101 mmol/L 95-114 [facility] Serum or plasma creatine kin ase MB (CKMB)/total creatine kinase (CK) ratio by calculaOrdered By: Hernandez Lares on 09-04-2022 CK.MB Calc [Catalytic fraction] 0.9 % 0.00-2.50 [facility] Serum or plasma glucose angie urement (mass/volume)Ordered By: Hernandez Lares on 09-04-2022 Glucose [Mass/Vol] 99 mg/dL 70-100 [facility] Comment on above: ADA recommended refe rence rangeRandom Glucose Reference Range is dependent on time and content of last meal. Glucose of more than 200 mg/dL in a nonstressed, ambulatory subject supports the diagnosis of Diabetes Mellitus. Serum or plasma potassium me asurement (moles/volume)Ordered By: Hernandez Lares on 09-04-2022 Potassium [Moles/Vol] 4.0 mmol/L 3.5-5.1 [facility] Serum or plasma sodium measu rement (moles/volume)Ordered By: Hernandez Lares on 09-04-2022 Sodium [Moles/Vol] 138 mmol/L 136-146 [facility] Serum or plasma total biliru bin measurement (mass/volume)Ordered By: Hernandez Lares on 09-04-2022 Bilirubin [Mass/Vol] 0.6 mg/dL 0.3-1.2 [facility] Serum or plasma total carbon dioxide measurement (moles/volume)Ordered By: Hernandez Lares on 09-04-2022 CO2 [Moles/Vol] 25.4 mmol/L 22.0-30.0 [facility] Serum or plasma urea nitroge n measurement (mass/volume)Ordered By: Hernandez Lares on 09-04-2022 Urea nitrogen [Mass/Vol] 13 mg/dL 9 [facility] Specific gravity Auto test s trip (U) [Rel density]Ordered By: Hernandez Lares on 09-04-2022 Specific gravity (U) [Rel density] 1.027 1.001-1.030 [facility] Spermatozoa detection in uri ne sediment by light microscopyOrdered By: Hernandez Lares on 09-04-2022 Spermatozoa LM Ql (Urine sed) 3-4 [HPF] 0-2 [facility] Squamous epithelial cells de tection in urine sediment by light microscopyOrdered By: Hernandez Lares on 09-04-2022 Epithelial cells.squamous LM Ql (Urine sed) None seen [HPF] 0-2 [facility] Troponin I.cardiac [Mass/vol ume] in Serum or Plasma by High sensitivity methodOrdered By: Hernandez Lares on 09-04-2022 Troponin I.cardiac High sensitivity method [Mass/Vol] < 3 pg/mL 0-20 [facility] Urine bacteria detection by automated methodOrdered By: Hernandez Lares on 09-04-2022 Bacteria Auto Ql (U) None seen None Seen [facility] Urine clarity by refractomet ry automatedOrdered By: Hernandez Lares on 09-04-2022 Clarity Refractometry automated (U) Clear Clear [facility] Urine glucose measurement by automated test strip (mass/volume)Ordered By: Hernandez Lares on 09-04-2022 Glucose Auto test strip (U) [Mass/Vol] Normal mg/dL Normal [facility] Urine hemoglobin detection b y automated test stripOrdered By: Hernandez Lares on 09-04-2022 Hemoglobin Auto test strip Ql (U) Negative Negative [facility] Urine leukocyte esterase det ection by automated test stripOrdered By: Hernandez Lares on 09-04-2022 Leukocyte esterase Auto test strip Ql (U) Negative Negative [facility] Urobilinogen Auto test strip (U) [Mass/Vol]Ordered By: Hernandez Lares on 09-04-2022 Urobilinogen (U) [Mass/Vol] Normal mg/dL Normal [facility] WBC Auto (Bld) [#/Vol]Ordere d By: Hernandez Lares on 09-04-2022 WBC (Bld) [#/Vol] 8.2 10*3/uL 4.1-10.5 [facility] pH Auto test strip (U)Ordere d By: Hernandez Lares on 09-04-2022 pH (U) 6.0 [pH] 5.0-9.0 [facility] CBC AUTO DIFFon 03-08-2022 BASO # 0.0 103/ul Normal 0.0-0.1 [facility] Comment on above: Performed By: #### C BC #### [facility] [address] [place] [address] Dr. Pablo Blanchard Basophils/100 WBC (Bld) 0.4 % Normal 0.2-2.0 [place] Comment on above: Performed By: #### C BC #### [facility] [address] [place] [address] Dr. Pablo Blanchard EO # 0.2 103/ul Normal 0.0-0.7 [facility] Comment on above: Performed By: #### C BC #### [facility] [address] [place] [address] Dr. Pablo Blanchard Eosinophils/100 WBC (Bld) 2.5 % Normal 0.9-7.0 [facility] Comment on above: Performed By: #### C BC #### [facility] [address] [place] [address] Dr. Pablo Blanchard Erythrocyte distribution width (RBC) [Ratio] 12.2 % Normal 11.0-15.0 [facility] Comment on above: Performed By: #### C BC #### [facility] [address] [place] [address] Dr. Pablo Blanchard Hematocrit (Bld) [Volume fraction] 49.2 % Normal 42.0-54.0 [facility] Comment on above: Performed By: #### C BC #### [facility] [address] [place] [address] Dr. Pablo Blanchard Hemoglobin (Bld) [Mass/Vol] 16.1 g/dL Normal 14.0-18.0 [facility] Comment on above: Performed By: #### C BC #### [facility] [facility] [address] [place] [address] Dr. Pablo Blanchard IG # 0.03 10e3/ul Normal 0.00-0.03 [facility] Comment on above: Performed By: #### C BC #### [facility] [address] [place] [address] Dr. Pablo Blanchard IG % 0.4 % Normal 0.0-0.5 [facility] Comment on above: Performed By: #### C BC #### [facility] [address] [place] [address] Dr. Pablo Blanchard LYMPH # 1.5 103/ul Normal 1.2-3.8 [facility] Comment on above: Performed By: #### C BC #### [facility] [address] [place] [address] Dr. Pablo Blanchard Lymphocytes/100 WBC (Bld) 20.1 % Critically low 20.5-60.0 [facility] Comment on above: Performed By: #### C BC #### [facility] [address] [place] [address] Dr. Pablo Blanchard MANUAL DIFF REQ NO Normal [facility] Comment on above: Performed By: #### C BC #### [facility] [address] [place] [address] Dr. Pablo Blanchard MCH (RBC) [Entitic mass] 30.4 pg Normal 25.9-34.0 [facility] Comment on above: Performed By: #### C BC #### [facility] [address] [place] [address] Dr. Pablo Blanchard MCHC (RBC) [Mass/Vol] 32.7 g/dL Normal 29.9-35.2 [facility] Comment on above: Performed By: #### C BC #### [facility] [address] [place] [address] Dr. Pablo Blanchard MCV (RBC) [Entitic vol] 92.8 fL Normal 80.0-94.0 [place] Comment on above: Performed By: #### C BC #### [facility] [address] [place] [address] Dr. Pablo Blanchard MONO # 0.6 103/ul Normal 0.3-0.8 [facility] Comment on above: Performed By: #### C BC #### [facility] [address] [place] [address] Dr. Pablo Blanchard Monocytes/100 WBC (Bld) 8.1 % Normal 1.7-12.0 [place] Comment on above: Performed By: #### C BC #### [facility] [address] [place] [address] Dr. Pablo Blanchard NEUT # 5.1 103/ul Normal 1.4-6.5 [facility] Comment on above: Performed By: #### C BC #### [facility] [address] [place] [address] Dr. Pablo Blanchard Neutrophils/100 WBC (Bld) 68.5 % Normal 43.0-75.0 [facility] Comment on above: Performed By: #### C BC #### [facility] [address] [place] [address] Dr. Pablo Blanchard Platelet mean volume (Bld) [Entitic vol] 9.2 fL Critically low 9.5-13.5 [facility] Comment on above: Performed By: #### C BC #### [facility] [address] [place] [address] Dr. Pablo Blanchard PLT 231 103/ul Normal 150-450 [facility] Comment on above: Performed By: #### C BC #### [facility] [address] [place] [address] Dr. Pablo Blanchard RBC 5.30 106/ul Normal 4.70-6.10 [facility] Comment on above: Performed By: #### C BC #### [facility] [address] [address] [address] Pablo Blanchard WBC 7.5 103/ul Normal 4.0-11.0 [facility] Comment on above: Performed By: #### C BC #### [facility] [address] [place] [address] Dr. Pablo Blanchard GLYCOHEMOGLOBIN A1Con 2021 ADA RECOMMENDATION SEE BELOW Normal [facility] Comment on above: Result Comment: ADA RECOMMENDED LIMIT 4.0 - 6.0 ADA THERAPEUTIC TARGET < 7.0 ACTION SUGGESTED > 7.0 Performed By: #### A 1C #### [facility] [address] [place] [address] Dr. Pablo Blanchard Glucose [Mass/Vol] 97 mg/dL Normal [facility] Comment on above: Performed By: #### A 1C #### [facility] [address] [place] [address] Dr. Pablo Blanchard HbA1c (Bld) [Mass fraction] 5.0 % Normal 4.5-6.2 [facility] Comment on above: Performed By: #### A 1C #### [facility] [address] [place] [address] Dr. Pablo Blanchard LIPID PROFILEon 03-08-2022 CHOL-HDL RATIO NORM SEE BELOW Normal [facility] Comment on above: Result Comment: 3.3 - 4.4 LOW RISK 4.4 - 7.1 AVERAGE RISK 7.1 - 11.0 MODERATE RISK >11.0 HIGH RISK Performed By: #### L IPID, CMP #### [facility] [address] [place] [address] Dr. Pablo Blanchard Cholesterol [Mass/Vol] 205 mg/dL Critically high <=200 [facility] Comment on above: Performed By: #### L IPID, CMP #### [facility] [address] [place] [address] Dr. Pablo Blanchard Cholesterol in HDL [Mass/Vol] 40 mg/dL Normal 40-60 [facility] Comment on above: Performed By: #### L IPID, CMP #### [facility] [address] [address] [address] Pablo Blanchard Cholesterol in LDL [Mass/Vol] 150.6 mg/dL Normal [facility] Comment on above: Performed By: #### L IPID, CMP #### [facility] [address] [address] [address] Pablo Blanchard Cholesterol.total/Choles terol in HDL [Mass ratio] 5.1 {ratio} Normal [facility] Comment on above: Performed By: #### L IPID, CMP #### [facility] [address] [address] [address] Pablo Blanchard HDL NORMAL > or = 60 mg/dl - LOW CARDIOVASCULAR RISK <40 mg/dl - HIGH CARDIOVASCULAR RISK Normal [facility] Comment on above: Performed By: #### L IPID, CMP #### [facility] [address] [place] [address] Dr. Pablo Blanchard LDL CALC NORMAL SEE BELOW Normal [facility] Comment on above: Result Comment: <100 mg/dl OPTIMAL 100 - 129 mg/dl NEAR OR ABOVE OPTIMAL 130 - 159 mg/dl BORDERLINE HIGH 160 - 189 mg/dl HIGH >190 mg/dl VERY HIGH Performed By: #### L IPID, CMP #### [facility] [address] [place] [address] Dr. Pablo Blanchard Triglyceride [Mass/Vol] 72 mg/dL Normal <=150 T [facility] Comment on above: Performed By: #### L IPID, CMP #### [facility] [address] [address] [address] Pablo Blanchard VLDL CALC 14.4 mg/dL Normal [facility] Comment on above: Performed By: #### L IPID, CMP #### [facility] [address] [place] [address] Dr. Pablo Blanchard PROF 14(COMP METB)on 022 Albumin [Mass/Vol] 3.3 g/dL Critically low 3.4-5.0 Th e [facility] Comment on above: Performed By: #### L IPID, CMP #### [facility] [address] [place] [address] Dr. Pablo Blanchard Albumin/Globulin [Mass ratio] 1.0 {ratio} Normal [facility] Comment on above: Performed By: #### L IPID, CMP #### [facility] [address] [address] [address] Pablo Blanchard ALP [Catalytic activity/Vol] 98 U/L Normal 46-116 [facility] Comment on above: Performed By: #### L IPID, CMP #### [facility] [address] [address] [address] Pablo Blanchard ALT [Catalytic activity/Vol] 33 U/L Normal 16-63 [facility] Comment on above: Performed By: #### L IPID, CMP #### [facility] [address] [place] [address] Dr. Pablo Blanchard Anion gap [Moles/Vol] 9.4 mmol/L Normal [facility] Comment on above: Performed By: #### L IPID, CMP #### [facility] [address] [place] [address] Dr. Pablo Blanchard AST [Catalytic activity/Vol] 16 U/L Normal 15-37 [facility] Comment on above: Performed By: #### L IPID, CMP #### [facility] [address] [place] [address] Dr. Pablo Blanchard Bilirubin [Mass/Vol] 0.7 mg/dL Normal 0.2-1.0 [facility] Comment on above: Performed By: #### L IPID, CMP #### [facility] [address] [place] [address] Dr. Pablo Blanchard Calcium [Mass/Vol] 8.0 mg/dL Critically low 8.5-10.1 Th [facility] Comment on above: Performed By: #### L IPID, CMP #### [facility] [address] [place] [address] Dr. Pablo Blanchard Chloride [Moles/Vol] 104 mmol/L Normal 98-107 [facility] Comment on above: Performed By: #### L IPID, CMP #### [facility] [address] [address] [address] Pablo Blanchard CO2 [Moles/Vol] 30.5 mmol/L Normal 21.0-32.0 [facility] Comment on above: Performed By: #### L IPID, CMP #### [facility] [address] [address] [address] Pablo Blanchard Creatinine [Mass/Vol] 1.02 mg/dL Normal 0.70-1.30 [facility] Comment on above: Performed By: #### L IPID, CMP #### [facility] [address] [address] [address] Pablo Blanchard EGFR-AF JAPANESE >60 Normal >=60 [facility] Comment on above: Performed By: #### L IPID, CMP #### [facility] [address] [address] [address] Pablo Blanchard EGFR-NON AF JAPANESE >60 Normal >=60 [facility] Comment on above: Performed By: #### L IPID, CMP #### [facility] [address] [address] [address] Pablo Blanchard Globulin (S) [Mass/Vol] 3.4 g/dL Normal [place] Comment on above: Performed By: #### L IPID, CMP #### [facility] [address] [address] [address] Pablo Blanchard Glucose [Mass/Vol] 108 mg/dL Critically high 74-106 [place] Comment on above: Performed By: #### L IPID, CMP #### [facility] [address] [address] [address] Pablo Blanchard Potassium [Moles/Vol] 3.9 mmol/L Normal 3.5-5.1 [facility] Comment on above: Performed By: #### L IPID, CMP #### [facility] [address] [address] [address] Pablo Blanchard Protein [Mass/Vol] 6.7 g/dL Normal 6.4-8.2 [facility] Comment on above: Performed By: #### L IPID, CMP #### [facility] [address] [place] [address] Dr. Pabol Blanchard Sodium [Moles/Vol] 140 mmol/L Normal 136-145 [facility] Comment on above: Performed By: #### L IPID, CMP #### [facility] [address] [place] [address] Dr. Pablo Blanchard Urea nitrogen [Mass/Vol] 11.0 mg/dL Normal 7.0-18.0 [facility] Comment on above: Performed By: #### L IPID, CMP #### [facility] [address] [place] [address] Dr. Pablo Blanchard Urea nitrogen/Creatinine [Mass ratio] 10.8 mg/mg Normal [facility] Comment on above: Performed By: #### L IPID, CMP #### [facility] [address] [place] [address] Dr. Pablo Blanchard UA RANDOM W/MICROSCOPICon BACTERIA NONE SEEN Normal NONE SEEN [facility] Comment on above: Performed By: #### U AMIC #### [facility] [address] [place] [address] Dr. Pablo Blanchard Bilirubin Ql (U) Negative Normal NEGATIVE [facility] Comment on above: Performed By: #### U AMIC #### [facility] [address] [place] [address] Dr. Pablo Blanchard CAST NONE SEEN Normal NONE [facility] Comment on above: Performed By: #### U AMIC #### [facility] [address] [place] [address] Dr. Pablo Blanchard Clarity (U) CLEAR Normal CLEAR [facility] Comment on above: Performed By: #### U AMIC #### [facility] [address] [place] [address] Dr. Pablo Blanchard Color (U) YELLOW Normal YELLOW [facility] Comment on above: Performed By: #### U AMIC #### [facility] [address] [place] [address] Dr. Pablo Blanchard Crystals LM Nom (Urine sed) NONE SEEN Normal NONE SEEN [facility] Comment on above: Performed By: #### U AMIC #### [facility] [address] [address] [address] Pablo Blanchard Epithelial cells LM Ql (Urine sed) FEW Abnormal NONE SEEN /RARE [facility] Comment on above: Performed By: #### U AMIC #### [facility] [address] [address] [address] Pablo Blanchard Glucose Ql (U) Negative Normal NEGATIVE [facility] Comment on above: Performed By: #### U AMIC #### [facility] [address] [address] [address] Pablo Blanchard Hemoglobin Ql (U) Negative Normal NEGATIVE [facility] Comment on above: Performed By: #### U AMIC #### [facility] [address] [address] [address] Pablo Blanchard Ketones Ql (U) Negative Normal NEGATIVE [facility] Comment on above: Performed By: #### U AMIC #### [facility] [address] [address] [address] Pablo Blanchard LEUKOCYTES Negative Normal NEGATIVE [facility] Comment on above: Performed By: #### U AMIC #### [facility] [address] [address] [address] Pablo Blanchard MUCOUS NONE SEEN Normal NONE SEEN [facility] Comment on above: Performed By: #### U AMIC #### [facility] [address] [place] [address] Dr. Pablo Blanchard Nitrite Ql (U) Negative Normal NEGATIVE [facility] Comment on above: Performed By: #### U AMIC #### [facility] [address] [address] [address] Pablo Blanchard pH (U) 6.0 [pH] Normal 5-9 [facility] Comment on above: Performed By: #### U AMIC #### [facility] [address] [place] [address] Dr. Pablo Blanchard RBC 0-2 Normal 0-2 [facility] Comment on above: Performed By: #### U AMIC #### [facility] [address] [place] [address] Dr. Pablo Blanchard SPEC GRAVITY >=1.030 Abnormal 1.005-<=1.025 [facility] Comment on above: Performed By: #### U AMIC #### [facility] [address] [place] [address] Dr. Pablo Blanchard UA PROTEIN Negative Normal NEGATIVE/ TRACE [facility] Comment on above: Performed By: #### U AMIC #### [facility] [address] [place] [address] Dr. Pablo Blanchard Urobilinogen Qn (U) 1.0 {Kuldeep'U}/dL Normal 0.2 - 1. 0 [facility] Comment on above: Performed By: #### U AMIC #### [facility] [address] [place] [address] Dr. Pablo Blanchard WBC NONE SEEN Normal NONE SEEN [facility] Comment on above: Performed By: #### U AMIC #### [facility] [address] [place] [address] Dr. Pablo Blanchard [facility]14 SARS-CoV-2 (COVID-19) RNA NANCIE+probe Ql (Unsp spec) Not detected Normal NOT DETECTED [facility] Comment on above: Result Comment: This test is not yet approved or cleared by the [place] FDA. When there are no FDA-approved or cleared tests available, and other criteria are met, FDA can make tests available under an emergency access mechanism called an Emergency Use Authorization (EUA). The EUA for this test is supported by the [employer] of Health and Human Service's (HHS's) declaration [...] consistent with SARS-CoV-2. Performed By: #### C VDTBH #### [facility] [address] [place], [place] [address] Dr. Pablo Blanchard CKon 02-04-2018 Creatine kinase (CK) 57 Int._Unit/L Normal 14-261 [facility] Comment on above: Performed By: #### 2 [id number], [id number] ####[facility] [address] [place] [address] CKMBon 02-04-2018 CREATINE KINASE.MB:CCNC:PT:SER/PL :QN:EIA 0.5 ng/mL Normal 0.3-4.9 [facility] Comment on above: Performed By: #### 2 [id number], [id number] ####[id number] CREATINE KINASE.MB:CCNC:PT:SER/PL :QN:EIA 0.8 ng/mL Normal 0.3-4.9 [facility] Comment on above: Performed By: #### 2 [id number], [id number], [id number] ####[address] [place] [id number] CREATINE KINASE.MB:CCNC:PT:SER/PL :QN:EIA 0.7 ng/mL Normal 0.3-4.9 [facility] Comment on above: Performed By: #### 2 [id number], [id number], [id number] ####[facility] [address] [place] [address] CMPon 02-04-2018 Albumin 1.2 g/dL Normal 1.1-2.2 [facility] Comment on above: Performed By: #### 2 [id number], [id number] ####[facility] [address] [id number] Albumin 3.6 g/dL Normal 3.3-5.0 [facility] Comment on above: Performed By: #### 2 654485, [id number] ####[address] [place] [id number] Alkaline phosphatase (ALP) 71 Int._Unit/L Normal 21-98 [facility] Comment on above: Performed By: #### 2 [id number], [id number] ####[facility] [address] [place] [address] ALT Without P-5'-P enzyme act/vol 29 Int._Unit/L Normal 6-46 [facility] Comment on above: Performed By: #### 2 988991, [id number] ####[address] [place] [address] Aspartate aminotransferase (AST) 29 Int._Unit/L Normal 5-43 [facility] Comment on above: Performed By: #### 2 819850, [id number] ####[address] [address] Bilirubin (total) 0.5 mg/dL Normal 0.0-1.1 [facility] Comment on above: Performed By: #### 2 966470, [id number] ####[address] [address] BUN/Creatinine Ratio 16 No Units Normal 10-20 [facility] Comment on above: Performed By: #### 2 086154, [id number] ####[facility] [address] [place] [address] Creatinine 1.0 mg/dL Normal 0.5-1.3 [facility] Comment on above: Performed By: #### 2 741031, [id number] ####[facility] [address] [place] [address] Globulin 2.9 g/dL Normal 1.4-4.0 [facility] Comment on above: Performed By: #### 2 512200, [id number] ####[facility] [address] [place] [address] Protein 6.5 g/dL Normal 6.0-7.8 [facility] Comment on above: Performed By: #### 2 634527, [id number] ####[address] [place] [address] Urea nitrogen 16 mg/dL Normal 5-21 [facility] Comment on above: Performed By: #### 2 376681, [id number] ####[facility] [address] [place] [address] Anion gap 14 mmol/L Normal 6-16 [facility] Comment on above: Performed By: #### 2 970862, [id number] ####[facility] [address] [place] [address] Calcium 8.8 mg/dL Low 8.9-11.1 [facility] Comment on above: Performed By: #### 2 691299, [id number] ####[facility] [address] [place] [address] Chloride 106 mmol/L Normal 101-111 [facility] Comment on above: Performed By: #### 2 218651, [id number] ####[facility] [address] [place] [address] CO2 23 mmol/L Normal 21-31 [facility] Comment on above: Performed By: #### 2 570655, [id number] ####[facility] [address] [place] [address] Glucose mass conc 86 mg/dL Normal 55-199 [facility] Comment on above: Result Comment: If t his glucose result represents a fasting glucose, interpretation should refer to the following reference range: 55-99 mg/dL Performed By: #### 2 993809, [id number] ####[facility] [address] [place] [address] Potassium molar conc 3.6 mmol/L Normal 3.5-5.3 [facility] Comment on above: Performed By: #### 2 501187, [id number] ####[facility] [address] [place] [address] Sodium 139 mmol/L Normal 135-145 [facility] Comment on above: Performed By: #### 2 232415, [id number] ####[facility] [address] [place] [address] Myoglobinon 02-04-2018 Myoglobin 18 ng/mL Normal <=69 [facility] Comment on above: Performed By: #### 2 324815, [id number], [id number], [id number], [id number], [id number] ####[facility] [address] [place] [address] Myoglobin 42 ng/mL Normal <=69 [facility] Comment on above: Performed By: #### 2 483773, [id number], [id number] ####[address] [address] Myoglobin 17 ng/mL Normal <=69 [facility] Comment on above: Performed By: #### 2 764426, [id number], [id number] ####[address] [address] T4 Totalon 02-04-2018 Thyroxine (T4) 9.1 microgram/dL Normal 4.6-9.1 [facility] Comment on above: Performed By: #### 2 869704, [id number] ####[address] [address] TSHon 02-04-2018 Thyroid stimulating hormone (TSH) 5.61 mcIU/mL High 0.34-5.60 [facility] Comment on above: Performed By: #### 2 638391, [id number] ####[facility] [address] [place] [address] Troponinon 02-04-2018 Troponin I.cardiac mass conc ng/mL Normal <=0.03 [facility] Comment on above: Result Comment: New Troponin Assay 11/26/13ROC [place] Cutoff value > or = 0.03 ng/mL in conjunction with clinical conditions of myocardial infarction.([email or web address]) Performed By: #### 2 [id number], [id number] ####[address] [place] [address] Troponin I.cardiac mass conc ng/mL Normal <=0.03 [facility] Comment on above: Result Comment: New Troponin Assay 11/26/13ROC [place] Cutoff value > or = 0.03 ng/mL in conjunction with clinical conditions of myocardial infarction.([email or web address]) Performed By: #### 2 [id number], [id number], [id number] ####[facility] [address] [place] [address] Troponin I.cardiac mass conc ng/mL Normal <=0.03 [facility] Comment on above: Result Comment: New Troponin Assay 11/26/13ROC [place] Cutoff value > or = 0.03 ng/mL in conjunction with clinical conditions of myocardial infarction.([email or web address]) Performed By: #### 2 [id number], [id number], [id number] ####[facility] [address] [place] [address] eGFRon 02-04-2018 eGFR (black) mL/min/{1.73_m2} Normal >=59 [facility] Comment on above: Order Comment: Order added by Discern Expert. Result Comment: eGFR is race adjusted. AA=. Performed By: #### 2 [id number], [id number] ####[facility] [address] [place] [address] eGFR (non-black) mL/min/{1.73_m2} Normal >=59 [facility] Comment on above: Order Comment: Order added by Discern Expert. Result Comment: Securities Settlement Processor sofi kidney disease could be indicated at eGFR's of less than 60 mL/min/1.73m2. Kidney failure is indicated at less than 15 mL/min/1.73m2. Performed By: #### 2 [id number], [id number] ####[facility] [address] [place] [address] Vital Signs Date Time Vital Sign Value Performing Clinician Asia hull 10-17-2023 09:020400 Body height 188 cm Pmh [address] [facility] 10-17-2023 09:02-0400 Body mass index (BMI) [Ratio] 32.1 kg/m2 Pmh 1 [facility] 10-17-2023 09:02040 Body weight 113.4 kg Pmh 1 [facility] 09-04-2023 14:11-0500 Body height 188 cm Lida Suh MD Work Phone: [facility] 09-04-2023 14:11-0500 Body mass index (BMI) [Ratio] 31.46 kg/m2 Lida Suh MD Work Phone: [facility] 09-04-2023 14:11-0500 Body weight 111.13 kg Lida Suh MD Work Phone: [facility] 09-04-2023 14:11-0500 Diastolic blood pressure 75 mm[Hg] Lida Suh MD Work Phone: [facility] 09-04-2023 14:11-0500 Heart rate 76 /min Lida Suh MD Work Phone: [facility] 09-04-2023 14:11-0500 Systolic blood pressure 116 mm[Hg] Lida Suh MD Work Phone: [facility] 10-22-2022 15:54-0400 Diastolic blood pressure 46 mm[Hg] Brooklynn Shobha Work Phone: [facility] 10-22-2022 15:54-0400 Heart rate 69 /min Brooklynn Aicyukoz Work Phone: [facility] 10-22-2022 15:54-0400 Respiratory rate 16 /min Brooklynn Aichholz Work Phone: [facility] 10-22-2022 15:54-0400 SaO2% (BldA) [Mass fraction] 99 % Brooklynn Aichholz Work Phone: [facility] 10-22-2022 15:54-0400 Systolic blood pressure 97 mm[Hg] Brooklynn Aichholz Work Phone: [facility] 10-22-2022 14:07-0400 Body height 187.96 cm Brooklynn Aichholz Work Phone: [facility] 10-22-2022 14:07-0400 Body temperature 97.2 [degF] Brooklynn Aichholz Work Phone: [facility] 10-22-2022 14:07-0400 Body weight 113.39 kg Brooklynn Aichholz Work Phone: [facility] 09-04-2022 23:07-0500 Heart rate 73 /min Brooklynn Aichholz Work Phone: [facility] 09-04-2022 23:07-0500 Respiratory rate 18 /min Brooklynn Aichholz Work Phone: [facility] 09-04-2022 23:07-0500 SaO2% (BldA) [Mass fraction] 99 % Brooklynn Aichholz Work Phone: [facility] 09-04-2022 22:55-0500 Body temperature 97.7 [degF] Brooklynn Aichholz Work Phone: [facility] 09-04-2022 22:55-0500 Diastolic blood pressure 84 mm[Hg] Brooklynn Aichholz Work Phone: [facility] 09-04-2022 22:55-0500 Systolic blood pressure 123 mm[Hg] Brooklynn Aichholz Work Phone: [facility] 09-04-2022 22:11-0500 Body height 189.23 cm Brooklynn Aichholz Work Phone: [facility] 09-04-2022 22:11-0500 Body weight 117.4 kg Brooklynn Aichholz Work Phone: [facility] Encounters Encounter Date Encounter Type Care Provider Facility Start: 11-22-2023 End: 11-23-2023 ambulatory [facility] Start: 11-14-2023 End: 11-14-2023 ambulatory [facility] Start: 11-13-2023 End: 11-13-2023 ambulatory [facility] Start: 11-13-2023 End: 11-14-2023 ambulatory [facility] Start: 10-30-2023 End: 10-30-2023 Evaluation and management of inpatient EFE HENDERSON [facility] Start: 10-30-2023 End: 10-30-2023 Evaluation and management of inpatient [facility] Start: 10-17-2023 End: 10-18-2023 ambulatory [facility] Start: 10-17-2023 End: 10-17-2023 Patient encounter procedure [facility] Pre-Admission Testing 1 [facility] - Pre Admit Start: 09-27-2023 End: 09-28-2023 ambulatory [facility] Start: 09-26-2023 End: 09-26-2023 ambulatory BROOKLYNN YEAGER Not Available Start: 09-04-2023 End: 09-04-2023 ambulatory [facility] Start: 09-04-2023 Telephone encounter Lida Suh MD Work Phone: [facility] Start: 09-04-2023 End: 09-04-2023 Office consultation new/estab patient 60 min Lida Suh MD Work Phone: [facility] Comment on above: Elevated PSA (Primar y Dx); Hematuria, microscopic Start: 09-04-2023 End: 09-05-2023 ambulatory [facility] Start: 08-27-2023 Refill Brooklynn Yeager MACHINE SETTER Work Phone: [facility] Comment on above: Mixed hyperlipidemia (CMS/HCC) (Primary Dx) Start: 08-21-2023 Telephone encounter Brooklynn martinez MACHINE SETTER Work Phone: [facility] Start: 07-22-2023 End: 07-22-2023 ambulatory BROOKLYNN YEAGER Not Available Start: 10-22-2022 End: 10-22-2022 ambulatory Kevin Sheehan Facility:[facility] Start: 10-22-2022 End: 10-22-2022 Admission to same day surgery center Brooklynn Eagledaltonjohnny Work Phone: [facility] [place] Start: 10-22-2022 End: 10-22-2022 ambulatory Brooklynn Yeager Work Phone: [facility] Work Phone: Start: 10-03-2022 End: 10-03-2022 ambulatory Brooklynn Yeager Work Phone: [facility] Work Phone: Start: 10-03-2022 End: 10-03-2022 Departed Referred Brooklynn Yeager Work Phone: [facility] [place] Work Phone: Start: 09-18-2022 End: 09-19-2022 ambulatory [employer] [facility] [employer] BROOKLYNN YEAGER Facility:[facility] Start: 09-05-2022 End: 09-05-2022 Emergency department patient visit Brooklynn Joshi Wandaeri Facility:[facility] Start: 09-04-2022 End: 09-05-2022 Emergency department patient visit Brooklynn Yeager Work Phone: [facility] Work Phone: Start: 03-08-2022 End: 03-09-2022 ambulatory [facility] BROOKLYNN WANDASavageKATYA Facility:[facility] Start: 11-03-2021 End: 11-03-2021 ambulatory [facility] BROOKLYNN EAGLEKATYA Facility:[facility] Start: 02-04-2018 Patient encounter KINJAL Gresham ity:[facility] Start: 02-03-2018 Patient encounter KINJAL CHEW Facil ity:[facility] Procedures Date Procedure Procedure Detail Performing Clinician Start: 11-13-2023 Follow-up visit Follow-up LIDA SUH Start: 10-22-2022 Excision of cyst Brooklynn ruvalcaba Work Phone: Start: 10-03-2022 Colonoscopy Brooklynn martinez MACHINE SETTER Work Phone: Start: 09-04-2022 Plain X-ray abdomen Tawny Yeager Work Phone: Start: 09-04-2022 SARS-CoV-2, Influenz a & RSV (PCR) Brooklynn Yeager Work Phone: Start: 03-08-2022 PSA screening [facility] BROOKLYNN YEAGER Comment on above: Performed By: #### P [facility] #### [facility] [address] [place] [address] Dr. Pablo Blanchard Plan of Treatment Date Care Activity Detail Author Start: 10-03-2032 Screening for malign ant neoplasm of colon [facility] Start: 10-16-2024 Adult BMI Screening Adult BMI Screen ing [facility] Start: 10-16-2024 Tobacco Screening Tobacco Screening [facility] Start: 09-04-2024 Adult BMI Screening Adult BMI Screen ing [facility] Start: 09-04-2024 Tobacco Screening Tobacco Screening [facility] Start: 03-15-2024 Influenza vaccination Influenza Vacc ine [facility] Start: 11-04-2023 End: 11-04-[address] [facility] Start: 10-30-2023 End: 10-30-2023 Admission to same day surgery center 10/30/2023 9:30 AM EDT - 10/30/2023 10:30 AM EDT Surgery [facility] [address] [place] [address] Lida Suh MD [address] [place] [address] CYSTOSCOPY [94621 (CPT )] [facility] Comment on above: CYSTOSCOPY [18394 (C PT )] Start: 10-30-2023 End: 10-30-2023 Cysto bladder w/ureteral catheterization CYSTOSCOPY RETROGRADE PYELOGRAM Hematuria, microscopic 10/30/2023 9:30 AM EDT [facility] Start: 10-30-2023 End: 10-30-2023 CYSTOSCOPY TRANSURETHRAL RESECTION BLADDER TUMOR CYSTOSCOPY TRANSURETHRAL RESECTION BLADDER TUMOR Hematuria, microscopic 10/30/2023 9:30 AM EDT [facility] Start: 10-30-2023 End: 10-30-2023 Cystourethroscopy CYSTOSCOPY Hematuria, microscopic 10/30/2023 9:30 AM EDT [facility] Start: 10-30-2023 End: 10-30-2023 Cystourethroscopy with biopsy CYSTOSCOPY BIOPSY BLADDER Hematuria, microscopic 10/30/2023 9:30 AM EDT [facility] Start: 10-30-2023 Subsequent hospital visit by physician 10/30/2023 9:30 AM EDT Hospital Encounter [facility] [address] [place] [address] Lida Suh MD [address] [place] [address] [facility] Start: 10-22-2023 End: 09-03-2024 Prostatic specific antigen, diagnostic Prostatic specific antigen, diagnostic Lab Routine Elevated PSA Expected: 10/22/2023, Expires: 09/03/2024 [facility] Comment on above: Expected: 10/22/2023 , Expires: 09/03/2024 Start: 09-26-2023 End: 09-26-2023 Patient encounter procedure 09/26/2023 9:00 AM EDT Office Visit [facility] [address] [place] [address] Brooklynn Yeager NP [address] [place] [address] [facility] Start: 09-04-2023 End: 09-04-2024 CT Kidney and Ureter and Urinary bladder 3D post processing WO and W contrast IV CT urogram Imaging Routine Hematuria, microscopic Expected: 09/04/2023, Expires: 09/04/2024 [facility]: Comment on above: Expected: 09/04/2023 , Expires: 09/04/2024 Start: 03-15-2023 COVID-19 Vaccine () COVID-19 Vaccine () [facility] Start: 03-15-2023 Influenza vaccination N [facility] Start: 10-22-2022 [facility] Start: 09-04-2022 Plain X-ray abdomen XR abdomen min 2 V [facility] Start: 09-04-2022 XR [facility]domen [facility] Start: 1988 DTaP,Tdap and Td Vac cines (1 - Tdap) DTaP,Tdap and Td Vaccines (1 - Tdap) [facility] Start: 12-27-1987 Adult BMI Follow Up Plan Adult BMI Follow Up Plan [facility] Start: 1981 Depression Screening Depression Scre ening [facility] Start: 1969 Screening for malign ant neoplasm of colon [facility] Start: 1969 Tobacco Counseling Tobacco Counselin g [facility] End: 09-03-2024 Cytology Cytology Pathology and Cytology Routine Hematuria, microscopic 1 Occurrences starting 09/04/2023 until 09/03/2024 [facility] Comment on above: 1 Occurrences starti ng 09/04/2023 until 09/03/2024 Patient Education [facility] Work Phone: Patient referral [facility] Work Phone: Payers Date Payer Category Payer Private Health Insurance [facility] [id number] 2023-Present [phone] [address] [place] [address] [id number] 2023 Medicaid [employer] [place] [id number] 2023-Present [address] [place] [address] [id number] 2022 Medicaid [id number] 1969 Unknown [id number] 2.16.840.1.572708.3.579. 2.593 1969 Unknown [id number] 2.16.840.1.795834.3.579. 2.593 1969 Unknown [id number] 2.16.840.1.357762.3.579. 2.1259 1969 Unknown [id number] 2.16.840.1.719159.3.579. 2.1259 1969 Unknown [id number] 2.16.840.1.676753.3.579. 2.1259 1969 Unknown [id number] 2.16.840.1.067909.3.579. 2.1286 1969 Unknown [id number] 2.16.840.1.959027.3.579. 2.1286 1969 Unknown [id number] 2.16.840.1.784783.3.579. 2.128 1969 Unknown [id number] 2.16.840.1.393321.3.579. 2.1286 1969 Unknown [id number] 2.16.840.1.571528.3.579. 2.1285 1969 Unknown [id number] 2.16.840.1.562128.3.579. 2.1286 1969 Unknown [id number] 2.16.840.1.479418.3.579. 2.1285 1969 Unknown [id number] 2.16.840.1.171111.3.579. 2.1286 1969 Unknown [id number] 2.16.840.1.198702.3.579. 2.1286 1969 Unknown [id number] 2.16.840.1.346684.3.579. 2.6 1969 Unknown [id number] 2.16.840.1.558946.3.579. 2.1285 1969 Unknown [id number] 2.16.840.1.428991.3.579. 2.6 1969 Unknown [id number] 2.16.840.1.028409.3.579. 2.1286 1959 Self-pay [id number] 1959 Unknown [id number] Unknown [id number] 2.16.840.1.283746.3.579. 2.593 Unknown [id number] 2.16.840.1.485325.3.579. 2.531 Unknown [id number] 2.16.840.1.624025.3.579. 2.531 Unknown [id number] 2.16.840.1.625466.3.579. 2.531 Social History Date Type Detail Facility Start: 09-04-2022 End: 10-22-2022 Tobacco smoking status [facility] Smoker (finding) [facility] Start: 1970 Sex Assigned At Male [facility] Start: 07-15-1988 End: 09-04-2023 Tobacco smoking status [facility] Smokes tobacco daily [facility] Start: 07-15-1988 History of tobacco use Cigarette Smo ker [facility] Start: 07-17-2023 End: 09-04-2023 Cigarettes smoked current (pack per day) - Reported 1 [facility] Start: 08-21-2023 Alcohol intake Ex-drinker (finding) [facility] Start: 07-22-2023 End: 09-04-2023 Tobacco use panel [facility] Start: 07-21-2023 Alcohol Comment caffeine 1-2 c ups per day [facility] Start: 1970 Sex Assigned At Not on file [facility] Start: 09-04-2023 Tobacco use and exposure Smokeless tobacco non-user [facility] Start: 09-04-2023 End: 10-17-2023 Alcohol intake Lifetime non-drinker (finding) [facility] Within the past 12 months we worried whether our food would run out before we got money to buy more. Never True [facility] Goals Date Patient Goal Desired Activity /State Clinical Notes 08-21-2023 to 10-17-2023 Patient InstructionsTelephone Encounter - Lida Suh MD - 09/04/2023 2:40 PM ESTTelephone Encounter - Lida Suh MD - 09/04/2023 2:40 PM ESTMicreji Suh MD - 09/04/2023 1:30 PM EST Note Date & Type Note Facility 10-17-2023 Instructions Tiffanie Altamirano RN - 10/17/2023 9:00 AM EDT Preoperative Education Checklist- General Surgery date: 10/30/23 Surgery time: 930a Arrival time: 730a 1. Bring a photo ID and your insurance card with you the day of surgery. You will check in at the main lobby of the [facility]- registration desk is straight ahead as soon as you walk in. Tell them you are here for surgery. 2. If you have a Living Will/Durable Power of Escalator Attendant for Health Care that is not on file here, please bring a copy the day of surgery. 3. Please shower/bathe the night before surgery with the provided soap or wipes. Do not shower the morning of surgery- you will do use wipes when you arrive here at the hospital before getting into your surgical gown. Do not shave the area of your procedure for 2 days prior to your surgery. 4. NO powder, lotion, perfume/cologne, aftershave, make-up, deodorant, or hair products after you have bathed. 5. NO nail mongolian/acrylic on at least one finger. If you are having a hand, wrist or foot surgery then all nail mongolian and artificial/acrylic nails must be removed from that hand or foot. 6. Avoid ALL Aspirin and non-steroidal anti-inflammatory drugs and certain vitamins (Ibuprofen, Advil, Aleve, Excedrin, Meloxicam, Celebrex, fish/krill oil, etc.) for 7 days prior to surgery as instructed by your surgeon and/or your prescribing doctor. Tylenol IS ALLOWED. If you are on Ticlid, Xarelto, Eliquis, Pradaxa, Plavix or Coumadin, please check with your prescribing doctor for instructions for when to stop them. 7. If you use an inhaler, continue to use it routinely. 8. Nothing to eat or drink (not even water, gum, mints, or hard candy!) AFTER midnight prior to your surgery. 9. Take only medications that you are instructed to on the morning of surgery with a TINY SIP OF WATER. 10. Choose a responsible adult that will be able to drive you home when you are discharged from your hospital stay for your surgery and can stay with you in your home for 24 hours after your procedure. You must NOT drive any vehicle or operate any machinery for 24 hours after surgery. 11. When you dress for your appointment, please wear loose fitting clothing that is appropriate to accommodate your surgical area procedure. BRING WITH YOU ANY DEVICES YOU MAY NEED: POOJA hose, ice machine, sling/swath, brace or special shoe, oversized zip-up or button up shirt, CPAP machine if staying overnight. 12. Do NOT wear jewelry, watches, or any piercings or metal for surgery- leave these valuables and money at home. 13. Do NOT wear contact lenses for surgery- glasses are okay if needed. 14. The anesthesiologist will talk with you the day of surgery and will ask you to sign a Consent Form. 15. Refrain from smoking or any type of tobacco use for at least 8 hours and marijuana for 24 hours prior to arrival for your surgery. 16. If a GREEN BLOOD band is given to you, please bring it with you for the day of surgery. 17. Notify your surgeon if you develop any illness before your surgery. 18. If you are staying overnight, please DO NOT BRING your home medications with you. 19. If you have any questions prior to surgery, please call the Preadmission Testing office at [phone], Mon.-Fri. 7 a.m.-3 p.m. Leave a voicemail if needed. Pre-Surgery Instructions: Medication Instructions atorvastatin (LIPITOR) 10 mg tablet Stop taking 0 days prior to procedure citalopram (CeleXA) 20 mg tablet Stop taking 0 days prior to procedure lamoTRIgine (LaMICtal) 100 mg tablet Take morning of procedure How to Avoid an Infection after Your Surgery Your doctor will give you specific instructions, but remember: -ALWAYS wash hands before caring for your catheter and/or after using the restroom. -ALWAYS wipe from front to back. -No make creams, lotion, powder, rubbing alcohol or hydrogen peroxide on surgical area (can harm the tissue and slow healing). -Your doctor will give you specific instructions for what type of dressing or equipment you will need and how often it will need changed for infection purposes. -Do not allow anyone to touch your surgical area unless they are cleaning, checking, or redressing it (be sure they wash their hands first). -No contact of your surgical area with pets or pet hair; avoid sleeping with pets. -Take full course of antibiotic if prescribed for you after surgery- do not stop unless directed to by your physician. You may also be given an antibiotic prior to your surgery to help prevent surgical site infections. -Eat a healthy and varied diet including proteins, fruits, and vegetables to help promote wound healing and keep blood sugars under control if you are diabetic. -Smoking slows the healing process by decreasing the amount of oxygen in your blood that is needed for tissue healing. Try to avoid or stop smoking if possible. CALL your doctor if you notice any of the following: -Increased redness or hardening around the surgical area. -Increased pain or increased blood in your urine. -If urine becomes increasingly cloudy, you notice sediment or particles in your urine, or you notice a foul odor or yellow or green discharge. -Fever higher than 101 degrees Fahrenheit for more than 4 hours. If you have a question, call your doctor s office. Go to the follow-up appointment with your doctor. documented in this encounter Remote 09-04-2023 Miscellaneous Notes Cysto potential retrograde pyelogram. Mac anesthesia Boundary. Possible biopsy. Diagnosis is hematuria. documented in this encounter [facility] 09-04-2023 Telephone encounter Note Cysto potential retrograde pyelogram. Mac anesthesia Boundary. Possible biopsy. Diagnosis is hematuria. [facility] 09-04-2023 Evaluation + Plan note Associated Problem(s): [...] system. The patient acknowledges this and agrees. [facility] 09-04-2023 Miscellaneous Notes Associated Problem(s): Hematuria, microscopic We reviewed today [...] this and agrees. documented in this encounter [facility] 09-04-2023 History of Presen t illness Narrative Images from the original note were not included. [address] [place] [address] [address] [facility] [address] Patient: Reno Abreu Date of : 1970 [...] for your understanding. documented in this encounter [facility] 08-21-2023 Telephone encounter Note pt called needing a refill on his lamoTRIgine (LaMICtal) 100 MG tablet and citalopram (CeleXA) 20 MG tablet [facility] 08-21-2023 Miscellaneous Notes pt called needing a refill on his lamoTRIgine (LaMICtal) 100 MG tablet and citalopram (CeleXA) 20 MG tablet documented in this encounter [facility] Evaluation note No assessment inform ation available [facility] Work Phone: Evaluation note Diagnosis Bipolar affective disorder, remission status unspecified (CMS/HCC)- Primary documented in this encounter [facility] HealthcareEvaluation note* Diagnosis Mixed hyperlipidemia (CMS/HCC)- Primary Mixed hyperlipidemia documented in this encounter [facility] Healthcare[facility] note* Diagnosis Elevated PSA- Primary Elevated prostate specific antigen (PSA) Hematuria, microscopic Microscopic hematuria [facility] Additional Instructions As we discussed, your symptoms of excessive sleepiness during the day, persistent fatigue, and loud snoring suggest possible sleep apnea. Please follow up with your doctor about this as you may need to be referred for a sleep study. MiraLax may be used daily to stay regular and prevent constipation. May be taken twice daily until constipation is resolved.[facility] Work Phone: InstructionsNot on filedocumented in this encounter [facility] SystemInstructionsNot on filedocumented in this encounter [facility] Summary Purpose Family History No Family History [...] microscopic Procedures CT urogram Lida Suh MD [address] [place] [address] Referral ID Status Reason Start Date Expiration Date V isits Requested Visits Authorized [id number] Pending Review 09/04/2023 09/03/2024 1 1 Additional Source Comments (unrecognized sect ion and content) No Status Records FoundNo Status Records FoundNo Status Records FoundNo Status Records FoundNo Status Records FoundNo Status Records FoundNo Status Records Found INFORMATION SOURCE (unrecogn ized section and content) DATE CREATED AUTHOR 02/04/2018 [place] [facility] DATE CREATED AUTHOR AUTHOR'S ORGANIZ ATION 10/02/2022 [facility] DATE CREATED AUTHOR AUTHOR'S ORGANIZ ATION 10/23/2022 [facility] DATE CREATED AUTHOR AUTHOR'S ORGANIZ ATION 09/27/2023 [facility] DATE CREATED AUTHOR AUTHOR'S ORGANIZ ATION 11/14/2023 [facility] DATE CREATED AUTHOR AUTHOR'S ORGANIZ ATION 11/23/2023 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 Relationship Specialty Start Date End Date Eusebio Schneider MD [address] [place] [phone] PCP - General Family Medicine 07/16/23 Brooklynn Yeager NP [address] [place] [id number] Nurse Practitioner Family Medicine 05/15/23 Filter Tank Operator Relationship Specialty Start Date End Date Eusebio Schneider MD [address] [place] [phone] PCP - General Family Medicine 07/16/23 Brooklynn Yeager NP [address] [place] [phone] Nurse Practitioner Family Medicine 05/15/23 Filter Tank Operator Relationship Specialty Start Date End Date Brooklynn Yeager, [employer] [address] [place] [phone] PCP - General Nurse Practitioner 09/04/23 Filter Tank Operator Relationship Specialty Start Date End Date Brooklynn Yeager, DAWN[facility] [address] [place] [address] PCP - General Nurse Practitioner 09/04/23 Filter Tank Operator Relationship Specialty Start Date End Date Brooklynn Yeager APRNDamonSOCIAL WORK[facility] [address] [place] [address] PCP - General Nurse Practitioner 09/04/23 Goals (unrecognized section and content) Goals may be documented in a n alternate sectionGoals may be documented in an alternate sectionNot on filedocumented as of this encounterNot on filedocumented as of this encounterNot on [...] BE BASED ON THE PRIMARY CLINICAL RECORDS. [facility] [employer] [facility]. provides no warranty or guarantee of the accuracy or completeness of information in this document.
[2023-11-28 20:33] LABS: Specific Gravity Urine 1.025 (1.005-1.025)
[2023-11-28 20:37] LABS: Clarity Urine CLOUDY (CLEAR); Urine Microscopic Indicated YES
[2023-11-28 20:39] LABS: Color Urine DK. RED (YELLOW); RBC Urine >100 #/HPF (0-2)
[2023-11-28 20:40] LABS: Bacteria Urine NONE SEEN #/HPF (NONE SEEN); Cast Seen? NONE SEEN #/LPF (NONE SEEN); Crystals Seen? None Seen #/HPF (None Seen); Mucus Urine NONE SEEN (NONE SEEN); Squamous Epithelial Cell Urine NONE SEEN #/LPF (NONE/RARE); Urine Culture Indicated YES
[2023-11-28 20:41] LABS: Basophils Percent Auto 0.5 % (0.2-2.0); Eosinophils Absolute Auto 0.3 10^3/uL (0.0-0.7); Eosinophils Percent Auto 3.4 % (0.9-7.0); Hemoglobin 15.2 g/dL (14.0-18.0); Immature Granulocytes Abs Auto 0.03 10^3/uL (0.00-0.03); Immature Granulocytes Pct Auto 0.4 % (0.0-0.5); Lymphocytes Percent Auto 26.2 % (20.5-60.0); Mean Corpuscular Hemoglobin 30.4 pg (25.9-34.0); Mean Platelet Volume 9.3 fL (9.5-13.5); Monocytes Absolute Auto 0.6 10^3/uL (0.3-0.8); Monocytes Percent Auto 7.9 % (1.7-12.0); Neutrophils Absolute Auto 4.7 10^3/uL (1.4-6.5); Neutrophils Percent Auto 61.6 % (43.0-75.0); Platelet Count 222 10^3/uL (150-450); Red Cell Distribution Width 12.2 % (11.0-15.0); White Blood Count 7.6 10^3/uL (4.0-11.0)
[2023-11-28 20:46] LABS: Anion Gap 10.2; Calcium 8.2 mg/dL (8.5-10.1); Chloride 103 mmol/L (98-107); Estimated GFR (African America >60 (>=60); Estimated GFR (Non-African Ame >60 (>=60); Glucose 149 mg/dL (74-106); Potassium 3.2 mmol/L (3.5-5.1); Sodium 138 mmol/L (136-145)
--- NOTE | 2023-11-28 20:46 | CT_ITS ---
The [address] [address] Patient Name: LUKE ABREU MRN: [id number] date: 1970 Sex: M Assigned Patient Location: ER Current Patient Location: [facility] Accession/Order Number: [id number] Exam Date: 11/28/2023 21:21 Report Date: 11/28/2023 22:10 At the request of: TERESA ALMARAZ Procedure: CT abdomen pelvis w con EXAM: CT abdomen pelvis w con CLINICAL INDICATION: Hematuria COMPARISON: None . TECHNIQUE: After the injection of intravenous nonionic iodinated contrast, axial CT of the abdomen, and pelvis was performed from the top of the hemidiaphragms to the inferior osseous pelvis. 2D reformats were obtained. Automatic exposure control radiation dose reduction technology was utilized. FINDINGS: Visualized portion of the lung bases are unremarkable. Hypoattenuating hepatic lesions, some of which are compatible with simple cysts or hemangiomas and others which are too small to accurately characterize. Tiny hypoattenuating left renal focus too small to accurately characterize. The spleen, kidneys, adrenal glands and pancreas are within normal limits. Gallbladder absent. No abdominal aortic aneurysm. No enlarged lymph nodes, free fluid, or free air. 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 The bowel is without evidence of obstruction or adjacent inflammatory changes. Normal appendix. Bladder contains a hyperdense mural based posterior superior mass measuring up to 4.7 x 3.8 x 3.3 cm. Grossly no suspicious osseous lesions are identified. CT/CT abdomen pelvis w con IMPRESSION: 1. Large bladder mass most in keeping with neoplasm. 2. Tiny hypoattenuating left renal focus too small to characterize, likely a cyst. No convincing evidence for upper tract disease. 3. 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 Electronically authenticated by: ANDREW DOE Date: 11/28/2023 22:10
--- NOTE | 2023-11-28 20:50 | ECG_ITS ---
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
--- NOTE | 2023-11-28 20:50 | ED.GENADUL1 ---
Documented by User: ENRICO Cerna 11/28/23 22:04 HPI HPI - General Adult General Chief complaint: Urogenital-Male Stated complaint: PROC MONTH AGO-BLEEDING CLOTS, LIGHT HEADED Time Seen by Provider: 11/28/23 19:23 Source: patient Mode of arrival: walk-in History of Present Illness HPI narrative: Patient is a 52-year-old male who presents to the emergency department for the evaluation of multiple focal medical complaints. His primary concern is that he has been urinating blood, passing clots and having difficulty passing urine. 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 He states he has intermittently been urinating blood. He has a passed occasional clots. He states today he had an increase in passing clots and is concerned that he may have caused something to start bleeding because he had food poisoning earlier in the week and had been vomiting. He states on arrival to the ER, he attempted to urinate and felt like he could pass some urine but then the urine stream stopped and he was not able to pass any urine. He has had no objective fevers. He has had no persistent vomiting or diarrhea. He reports left-sided abdominal pain and occasional dizziness. No syncope or falls. Related Data Home Medications ?Medication ?Instructions ?Recorded ?Confirmed atorvastatin 10 mg tablet mg 11/28/23 citalopram 10 mg tablet mg 11/28/23 lamotrigine 100 mg tablet mg 11/28/23 Allergies Allergy/AdvReac Type Severity Reaction Status Date / Time No Known Drug Allergies Allergy Verified 11/28/23 19:14 Opioid HPI Opioid Management Most Recent Opioid Data: Last Pain Scale 8 11/28/23 23:06 Last ED Pain Assessment 11/28/23 20:46 Review of Systems ROS Constitutional Denies: fever or chills Ears, nose, mouth, and throat Denies: throat pain or nasal congestion Cardiovascular Denies: chest pain Respiratory Denies: shortness of breath or cough Gastrointestinal Reports: abdominal pain and nausea; Denies: vomiting or diarrhea Genitourinary Reports: blood in urine; Denies: painful urination Musculoskeletal Denies: back pain Integumentary/Breast Denies: rash Hematologic/Lymphatic Denies: easy bruising or easy bleeding PFSH PFSH Surgical History (Updated 11/28/23 @ 19:15 by Costa Mcknight) Hx of cholecystectomy ?Z90.49 - Acquired absence of other specified parts of digestive tract (ICD-10) Exam Narrative Exam Narrative: Gen.: Awake, alert, in no distress Head: Normocephalic, atraumatic ENT: Moist mucous membranes Respiratory: No respiratory distress, lungs clear bilaterally Cardio: Regular rate and rhythm Gastrointestinal: Abdomen is soft, nondistended and Mildly tender to palpation in the left abdomen Extremities: Moves extremities equally Psych: Normal mood and affect Neuro: No focal neuro deficit Skin: Warm, dry, intact Constitutional Vital Signs, click to edit/add: Last Vital Signs Temp 98.4 F 11/28/23 19:04 Pulse 57 L 11/29/23 00:35 Resp 13 11/29/23 00:35 BP 96/62 11/29/23 02:33 Pulse Ox 96 11/29/23 00:35 O2 Del Method Room Air 11/28/23 19:04 Course Vital Signs Vital signs: Vital Signs Temperature 98.4 F 11/28/23 19:04 Pulse Rate 77 11/28/23 19:04 Respiratory Rate 18 11/28/23 19:04 Blood Pressure 128/77 11/28/23 19:04 Pulse Oximetry 97 11/28/23 19:04 Oxygen Delivery Method Room Air 11/28/23 19:04 Temperature 98.4 F 11/28/23 19:04 Pulse Rate 57 L 11/29/23 00:35 Respiratory Rate 13 11/29/23 00:35 Blood Pressure 96/62 11/29/23 02:33 Pulse Oximetry 96 11/29/23 00:35 Oxygen Delivery Method Room Air 11/28/23 19:04 Medical Decision Making MDM Narrative Medical decision making narrative: 2203: Bladder scan shows 56 mL in the bladder, urine specimen with significant blood showing urinary tract infection. The remainder of the labs, EKG and troponin are normal. Patient was sent for CT of the abdomen and pelvis. Case is turned over to attending physician at this time. Medical Records Medical records reviewed: Yes I reviewed the patient's medical records Lab Data Lab results reviewed: Yes I reviewed the patient's lab results Labs: Lab Results 11/28/23 11/28/23 11/29/23 Range/Units 20:00 20:32 05:15 WBC 7.6 6.4 (4.0-11.0) 10^3/uL RBC 5.00 4.66 L (4.70-6.10) 10^6/uL Hgb 15.2 14.1 (14.0-18.0) g/dL Hct 46.0 43.9 (42.0-54.0) % MCV 92.0 94.2 H (80.0-94.0) fL MCH 30.4 30.3 (25.9-34.0) pg MCHC 33.0 32.1 (29.9-35.2) g/dL RDW 12.2 12.2 (11.0-15.0) % Plt Count 222 185 (150-450) 10^3/uL MPV 9.3 L 9.4 L (9.5-13.5) fL Neut % (Auto) 61.6 (43.0-75.0) % Lymph % (Auto) 26.2 (20.5-60.0) % [place] % (Auto) 7.9 (1.7-12.0) % Eos % (Auto) 3.4 (0.9-7.0) % Baso % (Auto) 0.5 (0.2-2.0) % Neut # (Auto) 4.7 (1.4-6.5) 10^3/uL Lymph # (Auto) 2.0 (1.2-3.8) 10^3/uL [place] # (Auto) 0.6 (0.3-0.8) 10^3/uL Eos # (Auto) 0.3 (0.0-0.7) 10^3/uL Baso # (Auto) 0.0 (0.0-0.1) 10^3/uL Abs Immat Gran (auto) 0.03 (0.00-0.03) 10^3/uL Imm/Tot Granulo (auto) 0.4 (0.0-0.5) % PT 10.2 (9.0-11.6) sec INR 0.96 Sodium 138 (136-145) mmol/L Potassium 3.2 L (3.5-5.1) mmol/L Chloride 103 (98-107) mmol/L Carbon Dioxide 28.0 (21.0-32.0) mmol/L Anion Gap 10.2 BUN 13.0 (7.0-18.0) mg/dL Creatinine 1.08 (0.70-1.30) mg/dL Est GFR ( Amer) >60 (>=60) Est GFR (Non-Af Amer) >60 (>=60) BUN/Creatinine Ratio 12.0 Glucose 149 H (74-106) mg/dL Calcium 8.2 L (8.5-10.1) mg/dL Troponin I High Sens 4.1 (4.0-76.1) pg/mL Urine Color Dk. red (YELLOW) Urine Clarity Cloudy A (CLEAR) Ur Specific [place] 1.025 (1.005-1.025) Urine RBC >100 A (0-2) #/HPF Urine WBC 5-10 A (NONE SEEN) #/HPF Ur Squamous Epith Cells None seen (NONE/RARE) #/LPF Urine Crystals None seen (None Seen) #/HPF Urine Bacteria None seen (NONE SEEN) #/HPF Urine Casts None seen (NONE SEEN) #/LPF Urine Mucus None seen (NONE SEEN) Ur Culture Indicated? Yes ECG Data Attestation: I personally reviewed and interpreted this ECG as follows: (Sinus rhythm at a rate of 65, no acute ST elevation or ectopy. EKG reviewed by attending physician) Discharge Plan Discharge Chief Complaint: Urogenital-Male Clinical Impression: Urinary tract infection, Hematuria, Blood clot in bladder Patient Disposition: [facility] Time of Disposition Decision: 05:11 Discharge Location: [facility] Condition: Fair Documented by User: Daniela Fu MD 11/29/23 06:29 HPI HPI - General Adult General Chief complaint: Urogenital-Male Stated complaint: PROC MONTH AGO-BLEEDING CLOTS, LIGHT HEADED Time Seen by Provider: 11/28/23 19:23 Related Data Home Medications ?Medication ?Instructions ?Recorded ?Confirmed atorvastatin 10 mg tablet mg 11/28/23 citalopram 10 mg tablet mg 11/28/23 lamotrigine 100 mg tablet mg 11/28/23 Allergies Allergy/AdvReac Type Severity Reaction Status Date / Time No Known Drug Allergies Allergy Verified 11/28/23 19:14 Opioid HPI Opioid Management Most Recent Opioid Data: Last Pain Scale 8 11/28/23 23:06 Last ED Pain Assessment 11/28/23 20:46 PFSH PFSH Surgical History (Updated 11/28/23 @ 19:15 by Costa Mcknight) Hx of cholecystectomy ?Z90.49 - Acquired absence of other specified parts of digestive tract (ICD-10) Exam Constitutional Vital Signs, click to edit/add: Last Vital Signs Temp 98.4 F 11/28/23 19:04 Pulse 57 L 11/29/23 00:35 Resp 13 11/29/23 00:35 BP 96/62 11/29/23 02:33 Pulse Ox 96 11/29/23 00:35 O2 Del Method Room Air 11/28/23 19:04 Course Vital Signs Vital signs: Vital Signs Temperature 98.4 F 11/28/23 19:04 Pulse Rate 77 11/28/23 19:04 Respiratory Rate 18 11/28/23 19:04 Blood Pressure 128/77 11/28/23 19:04 Pulse Oximetry 97 11/28/23 19:04 Oxygen Delivery Method Room Air 11/28/23 19:04 Temperature 98.4 F 11/28/23 19:04 Pulse Rate 57 L 11/29/23 00:35 Respiratory Rate 13 11/29/23 00:35 Blood Pressure 96/62 11/29/23 02:33 Pulse Oximetry 96 11/29/23 00:35 Oxygen Delivery Method Room Air 11/28/23 19:04 Medical Decision Making [facility] Narrative Medical decision making narrative: 2203: Bladder scan shows 56 mL in the bladder, urine specimen with significant blood showing urinary tract infection. The remainder of the labs, EKG and troponin are normal. Patient was sent for CT of the abdomen and pelvis. Case is turned over to attending physician at this time. This 52-year-old male was seen and evaluated in conjunction with the physician medical practice assistant. He recently had a urologic procedure with Dr. Reed at [facility]. He states that Dr. Reed took out a bladder mass. He is under the impression that the bladder mass was completely removed. The patient has been having stomach flu symptoms recently with nausea and vomiting and started having gross hematuria with passage of clots earlier today. He is having trouble urinating at all. He was able to provide a small amount of urine that was mostly blood. He complains of pain in his urinary bladder. 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 I discussed this with Dr Winn who suggests that he has probably had that for a long period of time. It is likely not something that requires surgery. The patient did drive himself to the emergency department but requests something for pain and assures me that his girlfriend will pick him up. A three-way catheter will be placed into the bladder with CBI irrigation and attempt to clear the blood clots. He is in agreement with this plan. He is not having any nausea or vomiting at this time. The patient's CBI was initially thick and bloody and then became clear then the patient had a bladder spasm and had recurrent bleeding. It then cleared up again. At that point I placed a call to [facility] urology and spoke to Dr. Jasmine who reviewed the patient's chart. He states that Dr. Reed was confident that he had gotten the bladder mass out and Dr. Jasmine suspects that it is a clot that is being seen on the CT scan instead of a large bladder mass. He suggests that after the CBI if the patient is able to drain his urine he can be discharged but if it obstructs again he can be admitted for clot evacuation. We do not have urology available in this facility at this time and if this is indeed the case the patient will be transferred to [place] for clot evacuation. This was relayed to the patient who is relieved to hear that the bladder mass was effectively resected and although is reluctant to be discharged home with a [place] catheter verbalizes understanding of the need for the catheter to remain in place so that he does not become obstructed or if he does start bleeding again it can be irrigated. After the third bag of CBI the patient's urine is running clear. The CBI was discontinued and after a brief period of time the patient's urine started to fill the catheter tubing and was again bloody but clear. Will attempt 1 more bag of CBI and if it is not clear at that time he will need to be transferred. After the additional 3 L of CBI the CBI was discontinued, the patient has fallen asleep, initially there was some bloody drainage but ultimately the drainage stopped with a fairly large clot in the tubing. We will recheck an H&H however he will likely need transfer for clot evacuation as previously the discussed with Dr. Jasmine. He received a total of 5, 3L bags of CBI. Hemoglobin was repeated and dropped 1gm from 15.2 to 14.1 but he remains stable and does not require any blood at this time. NPO status was explained to him. Medical Records Medical records narrative: [place] [address] CT Scan Report Signed Patient: LUKE ABREU MR#: [id number] : 1970 Acct:[id number] Age/Sex: 52 / M ADM Date: 11/28/23 Loc: ER Attending Dr: Ordering Physician: Teresa Almaraz Date of Service: 11/28/23 Procedure(s): CT abdomen pelvis w con Accession Number(s): [id number] cc: Brooklynn Yeager OFFICE ELECTRICIAN~ The [address] [address] Patient Name: LUKE ABREU MRN: [id number] date: 1970 Sex: M Assigned Patient Location: ER Current Patient Location: ED.MAIN Accession/Order Number: [id number] Exam Date: 11/28/2023 21:21 Report Date: 11/28/2023 22:10 At the request of: TERESA ALMARAZ Procedure: CT abdomen pelvis w con EXAM: CT abdomen pelvis w con CLINICAL INDICATION: Hematuria COMPARISON: None . TECHNIQUE: After the injection of intravenous nonionic iodinated contrast, axial CT of the abdomen, and pelvis was performed from the top of the hemidiaphragms to the inferior osseous pelvis. 2D reformats were obtained. Automatic exposure control radiation dose reduction technology was utilized. FINDINGS: Visualized portion of the lung bases are unremarkable. Hypoattenuating hepatic lesions, some of which are compatible with simple cysts or hemangiomas and others which are too small to accurately characterize. Tiny hypoattenuating left renal focus too small to accurately characterize. The spleen, kidneys, adrenal glands and pancreas are within normal limits. Gallbladder absent. No abdominal aortic aneurysm. No enlarged lymph nodes, free fluid, or free air. 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 The bowel is without evidence of obstruction or adjacent inflammatory changes. Normal appendix. Bladder contains a hyperdense mural based posterior superior mass measuring up to 4.7 x 3.8 x 3.3 cm. Grossly no suspicious osseous lesions are identified. CT/CT abdomen pelvis w con IMPRESSION: 1. Large bladder mass most in keeping with neoplasm. 2. Tiny hypoattenuating left renal focus too small to characterize, likely a cyst. No convincing evidence for upper tract disease. 3. 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 Electronically authenticated by: ANDREW DOE Date: 11/28/2023 22:10 Lab Data Lab results reviewed: Yes I reviewed the patient's lab results Labs: Lab Results 11/28/23 11/28/23 11/29/23 Range/Units 20:00 20:32 05:15 WBC 7.6 6.4 (4.0-11.0) 10^3/uL RBC 5.00 4.66 L (4.70-6.10) 10^6/uL Hgb 15.2 14.1 (14.0-18.0) g/dL Hct 46.0 43.9 (42.0-54.0) % MCV 92.0 94.2 H (80.0-94.0) fL MCH 30.4 30.3 (25.9-34.0) pg MCHC 33.0 32.1 (29.9-35.2) g/dL RDW 12.2 12.2 (11.0-15.0) % Plt Count 222 185 (150-450) 10^3/uL MPV 9.3 L 9.4 L (9.5-13.5) fL Neut % (Auto) 61.6 (43.0-75.0) % Lymph % (Auto) 26.2 (20.5-60.0) % [place] % (Auto) 7.9 (1.7-12.0) % Eos % (Auto) 3.4 (0.9-7.0) % Baso % (Auto) 0.5 (0.2-2.0) % Neut # (Auto) 4.7 (1.4-6.5) 10^3/uL Lymph # (Auto) 2.0 (1.2-3.8) 10^3/uL [place] # (Auto) 0.6 (0.3-0.8) 10^3/uL Eos # (Auto) 0.3 (0.0-0.7) 10^3/uL Baso # (Auto) 0.0 (0.0-0.1) 10^3/uL Abs Immat Gran (auto) 0.03 (0.00-0.03) 10^3/uL Imm/Tot Granulo (auto) 0.4 (0.0-0.5) % PT 10.2 (9.0-11.6) sec INR 0.96 Sodium 138 (136-145) mmol/L Potassium 3.2 L (3.5-5.1) mmol/L Chloride 103 (98-107) mmol/L Carbon Dioxide 28.0 (21.0-32.0) mmol/L Anion Gap 10.2 BUN 13.0 (7.0-18.0) mg/dL Creatinine 1.08 (0.70-1.30) mg/dL Est GFR ( Amer) >60 (>=60) Est GFR (Non-Af Amer) >60 (>=60) BUN/Creatinine Ratio 12.0 Glucose 149 H (74-106) mg/dL Calcium 8.2 L (8.5-10.1) mg/dL Troponin I High Sens 4.1 (4.0-76.1) pg/mL Urine Color Dk. red (YELLOW) Urine Clarity Cloudy A (CLEAR) Ur Specific [place] 1.025 (1.005-1.025) Urine RBC >100 A (0-2) #/HPF Urine WBC 5-10 A (NONE SEEN) #/HPF Ur Squamous Epith Cells None seen (NONE/RARE) #/LPF Urine Crystals None seen (None Seen) #/HPF Urine Bacteria None seen (NONE SEEN) #/HPF Urine Casts None seen (NONE SEEN) #/LPF Urine Mucus None seen (NONE SEEN) Ur Culture Indicated? Yes Discharge Plan Discharge Chief Complaint: Urogenital-Male Clinical Impression: Urinary tract infection, Hematuria, Blood clot in bladder Patient Disposition: [facility] Time of Disposition Decision: 05:11 Discharge Location: [facility] Condition: Fair
[2023-11-28 20:58] LABS: INR 0.96; Prothrombin Time 10.2 sec (9.0-11.6)
[2023-11-28 21:07] LABS: Troponin I High Sensitivity 4.1 pg/mL (4.0-76.1)
[2023-11-28] MEDS: 0.9 % SODIUM CHLORIDE 1,000 ML 1000 ML IV ×2 (21:08→23:05)
[2023-11-28] MEDS: HYOSCYAMINE SULFATE 0.125 MG TAB.SUBL SL (22:32)
[2023-11-28] MEDS: LIDOCAINE 2% JELLY 10 ML UR (23:05)
[2023-11-28] MEDS: HYDROMORPHONE HCL 1 MG/ML CARTRIDGE IV (23:06)
[2023-11-28] MEDS: ONDANSETRON PF 4 MG/2 ML VIAL IV (23:06)
[2023-11-28] MEDS: WATER FOR IRRIGATION, STERILE 3,000 ML IRRIG.SOLN 100 ML IRRIGATION (23:45)
[2023-11-29] VITALS (19 sets, daily range): BP systolic 94–113; BP diastolic 54–77; PULSE 55–70; O2SAT 96–100
--- NOTE | 2023-11-29 00:24 | PC.NURSE ---
dark watermelon, no clots
[2023-11-29] MEDS: SODIUM CHLORIDE IRRIG SOLUTION 3,000 ML 3000 ML IRR ×2 (02:36→05:07)
--- NOTE | 2023-11-29 04:56 | PC.NURSE ---
attempted to stop CBI and monitor patient. Urine turned red, and vicente clotted. CBI was resumed.
[2023-11-29 05:21] LABS: Hematocrit 43.9 % (42.0-54.0); Hemoglobin 14.1 g/dL (14.0-18.0); Mean Corpuscular HGB Conc 32.1 g/dL (29.9-35.2); Mean Corpuscular Hemoglobin 30.3 pg (25.9-34.0); Mean Corpuscular Volume 94.2 fL (80.0-94.0); Mean Platelet Volume 9.4 fL (9.5-13.5); Platelet Count 185 10^3/uL (150-450); Red Blood Count 4.66 10^6/uL (4.70-6.10); Red Cell Distribution Width 12.2 % (11.0-15.0); White Blood Count 6.4 10^3/uL (4.0-11.0)
--- NOTE | 2023-11-29 06:22 | PC.NURSE ---
julian tomatoe red
[2023-11-29] MEDS: WATER FOR IRRIGATION, STERILE 3,000 ML IRRIG.SOLN 3000 ML IRRIGATION (07:00)
--- NOTE | 2023-11-29 07:48 | ED.GENADUL1 ---
HPI HPI - General Adult General Chief complaint: Urogenital-Male Stated complaint: PROC MONTH AGO-BLEEDING CLOTS, LIGHT HEADED Time Seen by Provider: 11/28/23 19:23 Source: patient Mode of arrival: walk-in Related Data Home Medications ?Medication ?Instructions ?Recorded ?Confirmed atorvastatin 10 mg tablet mg 11/28/23 citalopram 10 mg tablet mg 11/28/23 lamotrigine 100 mg tablet mg 11/28/23 Allergies Allergy/AdvReac Type Severity Reaction Status Date / Time No Known Drug Allergies Allergy Verified 11/28/23 19:14 Opioid HPI Opioid Management Most Recent Opioid Data: Last Pain Scale 8 11/28/23 23:06 Last ED Pain Assessment 11/28/23 20:46 PFSH PFSH Surgical History (Updated 11/28/23 @ 19:15 by Costa Mcknight) Hx of cholecystectomy ?Z90.49 - Acquired absence of other specified parts of digestive tract (ICD-10) Exam Constitutional Vital Signs, click to edit/add: Last Vital Signs Temp 98.4 F 11/28/23 19:04 Pulse 57 L 11/29/23 00:35 Resp 13 11/29/23 00:35 BP 105/54 11/29/23 09:31 Pulse Ox 96 11/29/23 00:35 O2 Del Method Room Air 11/28/23 19:04 Course Vital Signs Vital signs: Vital Signs Temperature 98.4 F 11/28/23 19:04 Pulse Rate 77 11/28/23 19:04 Respiratory Rate 18 11/28/23 19:04 Blood Pressure 128/77 11/28/23 19:04 Pulse Oximetry 97 11/28/23 19:04 Oxygen Delivery Method Room Air 11/28/23 19:04 Temperature 98.4 F 11/28/23 19:04 Pulse Rate 57 L 11/29/23 00:35 Respiratory Rate 13 11/29/23 00:35 Blood Pressure 105/54 11/29/23 09:31 Pulse Oximetry 96 11/29/23 00:35 Oxygen Delivery Method Room Air 11/28/23 19:04 Medical Decision Making Lab Data Labs: Lab Results 11/28/23 11/28/23 11/29/23 Range/Units 20:00 20:32 05:15 WBC 7.6 6.4 (4.0-11.0) 10^3/uL RBC 5.00 4.66 L (4.70-6.10) 10^6/uL Hgb 15.2 14.1 (14.0-18.0) g/dL Hct 46.0 43.9 (42.0-54.0) % MCV 92.0 94.2 H (80.0-94.0) fL MCH 30.4 30.3 (25.9-34.0) pg MCHC 33.0 32.1 (29.9-35.2) g/dL RDW 12.2 12.2 (11.0-15.0) % Plt Count 222 185 (150-450) 10^3/uL MPV 9.3 L 9.4 L (9.5-13.5) fL Neut % (Auto) 61.6 (43.0-75.0) % Lymph % (Auto) 26.2 (20.5-60.0) % [place] % (Auto) 7.9 (1.7-12.0) % Eos % (Auto) 3.4 (0.9-7.0) % Baso % (Auto) 0.5 (0.2-2.0) % Neut # (Auto) 4.7 (1.4-6.5) 10^3/uL Lymph # (Auto) 2.0 (1.2-3.8) 10^3/uL [place] # (Auto) 0.6 (0.3-0.8) 10^3/uL Eos # (Auto) 0.3 (0.0-0.7) 10^3/uL Baso # (Auto) 0.0 (0.0-0.1) 10^3/uL Abs Immat Gran (auto) 0.03 (0.00-0.03) 10^3/uL Imm/Tot Granulo (auto) 0.4 (0.0-0.5) % PT 10.2 (9.0-11.6) sec INR 0.96 Sodium 138 (136-145) mmol/L Potassium 3.2 L (3.5-5.1) mmol/L Chloride 103 (98-107) mmol/L Carbon Dioxide 28.0 (21.0-32.0) mmol/L Anion Gap 10.2 BUN 13.0 (7.0-18.0) mg/dL Creatinine 1.08 (0.70-1.30) mg/dL Est GFR ( Amer) >60 (>=60) Est GFR (Non-Af Amer) >60 (>=60) BUN/Creatinine Ratio 12.0 Glucose 149 H (74-106) mg/dL Calcium 8.2 L (8.5-10.1) mg/dL Troponin I High Sens 4.1 (4.0-76.1) pg/mL Urine Color Dk. red (YELLOW) Urine Clarity Cloudy A (CLEAR) Ur Specific [place] 1.025 (1.005-1.025) Urine RBC >100 A (0-2) #/HPF Urine WBC 5-10 A (NONE SEEN) #/HPF Ur Squamous Epith Cells None seen (NONE/RARE) #/LPF Urine Crystals None seen (None Seen) #/HPF Urine Bacteria None seen (NONE SEEN) #/HPF Urine Casts None seen (NONE SEEN) #/LPF Urine Mucus None seen (NONE SEEN) Ur Culture Indicated? Yes Discharge Plan Discharge Chief Complaint: Urogenital-Male Clinical Impression: Urinary tract infection, Hematuria, Blood clot in bladder Patient Disposition: [facility] Time of Disposition Decision: 05:11 Discharge Location: [facility] Discharge location: 0800 pt is accepted ER to ER by urologist and ER Doctor Condition: Fair Discharge Date/Time: 11/29/23 09:50
[2023-11-29] MEDS: 0.9 % SODIUM CHLORIDE 1,000 ML 200 ML IV (07:56)
[2023-11-29] MEDS: DICYCLOMINE HCL 20 MG/2 ML VIAL IM (07:57)
[2023-11-29] MEDS: OXYBUTYNIN chloride 5 MG TABLET PO (07:57)
[2023-11-29] MEDS: DIAZEPAM 10 MG/2 ML SYRINGE 2 MG IV (07:57)
[2023-11-29] MEDS: HYOSCYAMINE SULFATE 0.125 MG TAB.SUBL SL (07:57)
[2023-11-29] MEDS: SODIUM CHLORIDE 0.9% 3,000 ML IRRIG SOLN 3000 ML IRR ×2 (09:30→09:31)
== END 2023-11-29 09:50 | disposition short-term general hospital (02) ==
PROVIDERS: Physician Assistant; Emergency Provider Emergency Medicine; PCP Nurse Practitioner
DX: R31.9 Hematuria, unspecified (principal); R10.2 Pelvic and perineal pain; N39.0 Urinary tract infection, site not specified; N32.89 Other specified disorders of bladder; Z98.890 Other specified postprocedural states; R39.198 Other difficulties with micturition; Z90.49 Acquired absence of other specified parts of digestive tract; N32.9 Bladder disorder, unspecified; D17.79 Benign lipomatous neoplasm of other sites
CPT/HCPCS: 36415; 51702; 74177; 80048; 81001; 84484; 85025; 85027; 85610; 87086; 93005; 99285; J0500; J1170; Q9967

== ENCOUNTER 2024-06-30 19:43 | Emergency (ER) | payer OTHER, SELFPAY ==
[2024-06-30 19:47] VITALS: BP 104/67; PULSE 86; TEMP 36.7; O2SAT 98; BMI 32.1
--- OUTSIDE RECORDS SUMMARY | 2024-06-30 19:59 | XMS_ITS | CCD ---
Author Organization [facility] Care Team Providers Care Body Liner Name Role Phone KINJAL CHEW Unavailable Unavailable KINJAL CHEW Unavailable Unavailable Shobha Brooklynn Adi Primary Care Provider [phone] MD Hernandez Lares Jr Emergency Provider AICHHOLZ, DOUBLER HELPER BROOKLYNN Attending Unavailable AICHHOLZ, DOUBLER HELPER BROOKLYNN Consulting Unavailable AICHHOLZ, DOUBLER HELPER BROOKLYNN Primary Care Unavailable AICHHOLZ, DOUBLER HELPER BROOKLYNN Admitting Unavailable AICHHOLZ, DOUBLER HELPER BROOKLYNN Attending Unavailable AICHHOLZ, DOUBLER HELPER BROOKLYNN Consulting Unavailable AICHHOLZ, DOUBLER HELPER BROOKLYNN Primary Care Unavailable AICHHOLZ, DOUBLER HELPER BROOKLYNN Admitting Unavailable AICHHOLZ, DOUBLER HELPER BROOKLYNN Primary Care Unavailable MISC, DR QUIGLEY Attending Unavailable MISC, DR QUIGLEY Consulting Unavailable MISC, DR QUIGLEY Admitting Unavailable Aichholz, Brooklynn J Primary Care Provider MD Hernandez Lares Jr Emergency Provider MD Kevin Sheehan Attending Provider [phone] Aichholz ZINC CHLORIDE OPERATOR, Brooklynn Unavailable Eusebio Schneider MD Primary Care Provider [phone] Aichholz 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, Brooklynn J Primary Care Provider LIDA SUH Referring Unavailable AICHKATYA, BROOKLYNN J Primary Care Unavailable AICHHOLZ, BROOKLYNN J Primary Care Unavailable [facility] Consulti kaylan Unavailable BRICE DYSON Attending Unavailab JOSE Jamison Admitting Unavailable JOSE GARIBAY Attending Unavailable HERNANDEZ LARES JR Referring Unavailable AICHKATYA, BROOKLYNN Adi Primary Care Unavailable AICHHOLZ, BROOKLYNN J Referring Unavailable AICHHOLZ, BROOKLYNN J Primary Care Unavailable Aichholz, Brooklynn J Primary Care Provider MD Hernandez Lares Jr Emergency Provider Aichholz, Brooklynn J Primary Care Unavailable Hernandez Lares Jr Attending Unavailable Hernandez Lares Jr Admitting Unavailable LIDA SUH Attending Unavailable AICHHOLZ, BROOKLYNN J Referring Unavailable AICHHOLZ, BROOKLYNN J Primary Care Unavailable LIDA SUH Attending Unavailable AICHHOLZ, BROOKLYNN J Referring Unavailable AICHHOLZ, BROOKLYNN J Primary Care Unavailable LIDA SUH Attending Unavailable AICHHOLZ, BROOKLYNN J Primary Care Unavailable AICHHOLZ, BROOKLYNN Attending Unavailable AICHHOLZ, BROOKLYNN Attending Unavailable AICHHOLZ, BROOKLYNN Attending Unavailable Aichholz ZINC CHLORIDE OPERATOR, Brooklynn Unavailable Eusebio Schneider MD Primary Care Provider Aichholz ZINC CHLORIDE OPERATOR, Brooklynn Unavailable Aichholz ZINC CHLORIDE OPERATOR, Brooklynn Unavailable Aichholz 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, Brooklynn J Primary Care Provider LIDA SUH Attending Unavailable LIDA SUH Referring Unavailable AICHHOLZ, BROOKLYNN J Primary Care Unavailable AICHHOLZ, BROOKLYNN J Referring Unavailable AICHHOLZ, BROOKLYNN J Primary Care Unavailable LIDA SUH Referring Unavailable AICHHOLZ, BROOKLYNN J Primary Care Unavailable LIDA SUH Admitting Unavailable LIDA SUH Attending Unavailable AICHHOLZ, BROOKLYNN J Primary Care Unavailable EFE HENDERSON Attending Unavailable AICHHOLZ, BROOKLYNN J Primary Care Unavailable LIDA SUH Referring Unavailable AICHHOLZ, BROOKLYNN J Primary Care Unavailable LIDA SUH Attending Unavailable LIDA SUH Referring Unavailable AICHHOLZ, BROOKLYNN J Primary Care Unavailable LIDA SUH Referring Unavailable AICHHOLZ, BROOKLYNN J Primary Care Unavailable AICHHOLZ, BROOKLYNN J Referring Unavailable AICHHOLZ, BROOKLYNN J Primary Care Unavailable LIDA SUH Admitting Unavailable LIDA SUH Attending Unavailable AICHHOLZ, BROOKLYNN J Primary Care Unavailable AICHHOLZ, BROOKLYNN J Referring Unavailable BROOKLYNN YEAGER Primary Care Unavailable LIDA SUH Admitting Unavailable LIDA SUH Attending Unavailable BROOKLYNN YEAGER Primary Care Unavailable LIDA SUH Referring Unavailable BROOKLYNN YEAGER Primary Care Unavailable Allergies Allergy Classification Reported Allergen(s) Allergy Type Date of Onset Reaction(s) Facility (5 sources) Acetaminophen; Translations: [acetaminophen] Drug Allergy 09-04-19 23 Gastrointestinal Upset [facility] (11 sources) HYDROcodone; Translations: [hydrocodone] Drug Allergy 09-04-19 23 GI intolerance [facility] (1 source) Acetaminophen / HYDROcodone Drug Allergy [facility] (8 sources) Acetaminophen / HYDROcodone; Translations: [HYDROCODONE-ACET AMINOPHEN] Drug Allergy 09-04-19 [facility] Medications Current Medications Medication Drug Class(es) Dates Sig (Normalized) Sig (Original) acetaminophen 325 mg / oxyCODONE hydrochloride 5 mg oral tablet (5 sources) Opioid Agonist Start: 05-22-2024 oxyCODONE-acetamino phen (PERCOCET) 5-325 mg per tablet Indications: Malignant neoplasm of overlapping sites of bladder (CMS-HCC) Take prior to your urologic procedure-- someone must drive you 1 tablet 05/22/2024 Active Start: 04-04-2020 End: 10-22-2022 take 1 tablet by mouth every six hours Oxycodone-Acetaminophen Discontinued 1 T AB PO Q6H 28 7 April 04, 2020 October 22, 2022 2:09pm atorvastatin 10 mg oral tablet (13 sources) HMG-CoA Reductase Inhibitor Start: 01-21-2024 End: 07-14-2024 take 1 tablet by mouth at bedtime atorvastatin (Lipitor) 10 MG tablet Indications: Mixed hyperlipidemia (CMS/HCC) Take 1 tablet (10 mg) by mouth at bedtime 90 tablet 1 03/30/2024 06/28/2024 Active Start: 07-29-2023 End: 12-19-2023 take 10 mg by mouth once daily Atorvastatin Active 10 MG PO Daily December 01, 2023 12:00am citalopram 20 mg oral tablet (17 sources) Serotonin Reuptake Inhibitor Start: 02-19-2024 End: 07-14-2024 take 1 tablet by mouth once daily citalopram (CeleXA) 20 MG tablet Indications: Bipolar affective disorder, remission status unspecified (CMS/HCC) Take 1 tablet (20 mg) by mouth Daily 90 tablet 1 03/30/2024 06/28/2024 Active Start: 08-21-2023 End: 11-19-2023 take 1 tablet by mouth in the morning citalopram (CeleXA) 20 mg tablet Take 1 tablet (20 mg total) by mouth in the morning. 0 08/21/2023 11/19/2023 Active Start: 10-22-2022 take 2 tablets by mo uth once daily in the morning Citalopram (Celexa) 10 mg tablet Active 20 MG PO Every morning October 22, 2022 12:00am Start: 10-22-2022 take 1 tablet by esau th once daily in the morning Citalopram (Celexa) 10 mg tablet Active 10 MG PO Every morning October 22, 2022 12:00am finasteride 5 mg oral tablet (4 sources) 5-alpha Reductase Inhibitor Start: 12-19-2023 take 1 tablet by mouth once daily finasteride (Proscar) 5 MG tablet Take 5 mg by mouth Daily 12/19/2023 Active ketorolac tromethamine 10 mg oral tablet (3 sources) Nonsteroidal Anti-inflammatory Drug, Cyclooxygenase Inhibitor Start: 11-29-2023 End: 03-30-2024 take 1 tablet by mouth every six hours as needed ketorolac (Toradol) 10 MG tablet Take 10 mg by mouth every 6 (six) hours if needed 11/29/2023 03/30/2024 Discontinued (Therapy completed) lamoTRIgine 100 mg oral tablet (18 sources) Mood Stabilizer, Anti-epileptic Agent Start: 05-21-2023 End: 07-14-2024 take 1 tablet by mouth once daily lamoTRIgine (LaMICtal) 100 MG tablet Indications: Bipolar affective disorder, remission status unspecified (CMS/HCC) Take 1 tablet (100 mg) by mouth Daily 90 tablet 1 03/30/2024 06/28/2024 Active Start: 10-22-2022 End: 12-01-2023 take 1 tablet by mouth twice daily Lamotrigine (Lamictal) 25 mg tablet Discontinued 25 MG PO Twice daily October 22, 2022 12:00am December 01, 2023 12:27am tamsulosin hydrochloride 0.4 mg oral capsule (4 sources) alpha-Adrenergic Kwan Start: 12-19-2023 take 1 capsule by mouth once daily tamsulosin (Flomax) 0.4 MG 24 hr capsule Take 0.4 mg by mouth Daily 12/19/2023 Active zolpidem tartrate 5 mg oral tablet (2 sources) gamma-Aminobutyric Acid-ergic Agonist Start: 07-24-2022 zolpidem (Ambien) 5 MG tablet Take 1 tablet by mouth as needed at bedtime 0 07/24/2022 Active Completed/Discontinued Medications Medication Drug Class(es) Dates Sig (Normalized) Sig (Original) polyethylene glycol 3350 73827 mg powder for oral solution (4 sources) Osmotic Laxative Start: 09-05-2022 End: 10-22-2022 Polyethylene Glycol 3350 (Miralax) 17 gram/dose powder Discontinued 17 GM PO Daily 510 September 05, 2022 1:00am October 22, 2022 2:09pm Problems Active Problems Problem Classification Problem Date Documented Da te Episodic/Chronic Biliary tract disease (12 sources) Calculus of gallbladder with acute cholecystitis; Translations: [Calculus of gallbladder with acute cholecystitis without obstruction] 04-04-2020 Episodic Cancer of bladder (12 sources) Malignant neoplasm of overlapping sites of bladder; Translations: [Malignant neoplasm, overlapping lesion of bladder] Onset: 09-04-2023 03-30-2024 Chronic Disorders of lipid metabolism (16 sources) Hyperlipidemia; Translations: [Hyperlipidemia, unspecified] Onset: 07-22-2023 Resolved: 09-26-2023 07-22-2023 Chronic Diverticulosis and diverticulitis (6 sources) Diverticulitis; Translations: [Diverticulitis of intestine, part unspecified, without perforation or abscess without bleeding] Onset: 06-26-2023 06-26-2023 Chronic Genitourinary symptoms and ill-defined conditions (1 source) Unspecified urinary incontinence; Translations: [Unspecified urinary incontinence] Onset: 01-29-2024 Chronic Intestinal obstruction without hernia (4 sources) Intussusception of intestine; Translations: [Intussusception] 04-04-2020 Episodic Malaise and fatigue (4 sources) Fatigue; Translations: [Other fatigue] 09-05-2022 Episodic Miscellaneous mental health disorders (4 sources) Impotence; Translations: [Male erectile disorder] Onset: 09-26-2023 09-26-2023 Chronic Mood disorders (10 sources) Bipolar disorder; Translations: [Bipolar disorder, unspecified] Onset: 07-22-2023 08-21-2023 Chronic Nephritis; nephrosis; renal sclerosis (1 source) Recurrent gail hematuria; Translations: [Recurrent and persistent hematuria with unspecified morphologic changes] 12-01-2023 Chronic Other gastrointestinal disorders (4 sources) Constipation; Translations: [Constipation, unspecified] 09-05-2022 Episodic Other lower respiratory disease (4 sources) Snoring; Translations: [Snoring] 09-05-2022 Episodic Other nutritional; endocrine; and metabolic disorders (4 sources) Body mass index 30+ - obesity; Translations: [Obesity, unspecified] Onset: 09-26-2023 09-26-2023 Chronic Other skin disorders (5 sources) Mass of skin; Translations: [Localized swelling, mass and lump, unspecified] Onset: 03-30-2024 03-30-2024 Episodic Residual codes; unclassified (4 sources) Daytime somnolence; Translations: [Other hypersomnia] 09-05-2022 Chronic Residual codes; unclassified (1 source) History of transurethral resection of bladder tumor; Translations: [Other specified postprocedural states] 12-01-2023 Episodic Spondylosis; intervertebral disc disorders; other back problems (6 sources) Degeneration of lumbar intervertebral disc; Translations: [Other intervertebral disc degeneration, lumbar region] Onset: 08-21-2023 08-21-2023 Chronic Superficial injury; contusion (5 sources) Contusion of scalp; Translations: [Contusion of scalp, initial encounter] Onset: 03-30-2024 03-30-2024 Episodic Unclassified (3 sources) CONTACT W/AND (SUSP) EXPOS COVID-19; Translations: [CONTACT W/AND (SUSP) EXPOS COVID-19] Onset: 11-06-2021 Unclassified (1 source) 52 yrs M (1970) [id number] Onset: 11-29-2023 Unclassified (1 source) Elevated PSA Onset: 09-04-2023 Unclassified (1 source) Hematuria, microscopic [R31.29] Onset: 10-30-2023 Past or Other Problems Problem Classification Problem Date Documented Da te Episodic/Chronic Abdominal pain (4 sources) Abdominal pain; Translations: [Unspecified abdominal pain] Onset: 09-26-2023 09-26-2023 Episodic Anal and rectal conditions (4 sources) Rectal pain; Translations: [Other specified diseases of anus and rectum] Onset: 09-26-2023 09-26-2023 Episodic Genitourinary symptoms and ill-defined conditions (20 sources) Microscopic hematuria; Translations: [Other microscopic hematuria] Onset: 07-29-2023 Resolved: 03-30-2024 07-29-2023 Episodic Mood disorders (2 sources) Mood disorders Onset: 12-01-2023 12-01-2023 Other and unspecified benign neoplasm (4 sources) Lipoma (clinical); Translations: [Benign lipomatous neoplasm, unspecified] Onset: 09-26-2023 09-26-2023 Episodic Other gastrointestinal disorders (6 sources) Chronic constipation; Translations: [Other constipation] Onset: 08-21-2023 08-21-2023 Episodic Other infections; including parasitic (4 sources) History of human papilloma virus infection; Translations: [Personal history of other infectious and parasitic diseases] Onset: 09-26-2023 09-26-2023 Episodic Other nutritional; endocrine; and metabolic disorders (4 sources) Polydipsia; Translations: [POLYDIPSIA] Onset: 03-08-2022 Episodic Other screening for suspected conditions (not mental disorders or infectious disease) (20 sources) Encounter for screening, unspecified; Translations: [Patient encounter status] Onset: 09-18-2022 Episodic Other skin disorders (6 sources) Multiple skin tags; Translations: [Other hypertrophic disorders of the skin] Onset: 07-22-2023 07-22-2023 Episodic Residual codes; unclassified (8 sources) Tobacco user; Translations: [Tobacco use] Onset: 07-22-2023 07-22-2023 Episodic Residual codes; unclassified (4 sources) Insomnia; Translations: [Insomnia, unspecified] Onset: 09-26-2023 09-26-2023 Episodic Unclassified (1 source) CONTACT W/AND (SUSP) EXPOS COVID-19; Translations: [CONTACT W/AND (SUSP) EXPOS COVID-19] Onset: 11-03-2021 Viral infection (4 sources) Genital warts; Translations: [Anogenital (venereal) warts] Onset: 09-26-2023 09-26-2023 Episodic Results Test Name Value Interpretation Reference Range Facility Cytologyon 06-17-2024 Cytology Normal [facility] Comment on above: Result Comment: [facility] [address] [place] [address] Cytology Consultation Patient Name:RENO ABREU:1970 (Age: 53)Gender:MTaken:06/17/2024eported:06/18/2024 14:16Physician(s):Lida Suh M.D. ([phone])Copy To: Rec. #:[id number]: #[id number] Final Cytologic Diagnosis Urine: Negative for high-grade urothelial cell carcinoma. 06/18/2024 Interpretation performed at [facility], [address] [place] [address], License number: [id number].Electronically Signed Out By Trevin Mallory MD Clinical History Malignant neoplasm of overlapping sites of bladder ([facility]) (C67.8) Gross Description Received was 50 mL of cloudy yellow fluid labeled as Brady, urine .Preservative added. 25 mL used for Cytology. See UroVysion report. Source of Specimen Urine Non RETAIL BUSINESS MANAGER ThinPrep Fee Code(s): 1; 71840 Reference Lab Test IDon 12-0 UROVYSION FOR BLADDER CANCER SEE COMMENTS 06/25/2024 12:33 PM Normal [facility] Comment on above: Result Comment: NOTE Test Result Flag Unit RefValue --- UroVysion (R) for Bladder Cancer Result Summary [...] specific probe for 9p21 ([employer] [place], [place]). This test has been modified from the seismograph shooter's instructions. Its performance characteristics were determined by [facility] in a manner consistent with CLIA requirements. This test has not been cleared or approved by the U.S. Food and Drug Administration. Reason for Referral Evaluate for urothelial carcinoma. Specimen Varies Source Urine, NOS Released By See Note Calixto Gross M.D. Test Performed by: [place] [address] Land Checker: Te Moreau Ph.D.; CLIA# [id number] Performed By: #### 3 0896-5 ####[facility] ([id number])[address] [place] [address] Cytologyon 03-18-2024 Cytology Normal [facility] Comment on above: Result Comment: [facility] [address] [place] [address] Cytology Consultation Patient Name:RENO ABREU:1970 (Age: 53)Gender:MTaken:03/18/2024eported:03/19/2024 17:33Physician(s):Lida Suh M.D. ([phone])Copy To: Rec. #:[id number]: #[id number] Final Cytologic Diagnosis Urine clean catch: Negative for high-grade urothelial cell carcinoma. 03/19/2024 Interpretation performed at [facility], [facility] [address], [place] [address], License number: [id number].Electronically Signed Out By George Smith MD Clinical History Malignant neoplasm of overlapping sites of bladder ([facility]) C67.8 Gross Description Received was 70mL of cloudy nannette fluid unfixed labeled as Brady, Urine clean catch . 35mL used for Cytology. See UroVysion report. Source of Specimen Urine clean catch Non RETAIL BUSINESS MANAGER [employer] Fee Code(s): 1; 81823 Reference Lab Test IDon 09-0 UROVYSION FOR BLADDER CANCER SEE COMMENTS 03/26/2024 08:20 AM Normal [facility] Comment on above: Result Comment: NOTE Test Result Flag Unit RefValue --- UroVysion (R) for Bladder Cancer Result Summary [...] specific probe for 9p21 ([employer] [place], [place]). This test has been modified from the seismograph shooter's instructions. Its performance characteristics were determined by [facility] in a manner consistent with CLIA requirements. This test has not been cleared or approved by the U.S. Food and Drug Administration. Reason for Referral Evaluate for urothelial carcinoma. Specimen Varies Source Urine, NOS Released By Adrianna Proctor M.D. Test Performed by: [place] [id number] Land Checker: Te Moreau Ph.D.; CLIA# [id number] Performed By: #### 3 0896-5 ####[facility] ([id number])[address] [place] [address] Prostate specific Ag [Mass/V ol]on 03-09-2024 PROSTATIC SPEC ANT 2.12 ng/mL Normal 0.00-4.00 [facility] Comment on above: Result Comment: The method used for this test is Tomas Learnerator DXI chemiluminescent immunoassay. Values obtained by different assay methods cannot be used interchangeably. Performed By: #### 2 857-1 #### [facility] ([id number]) [address], [facility] [address] [place] [address] URINE CULTUREon 03-09-2024 Bacteria identified Cx Nom (U) CULTURE RESULTS <10,000 ORGANISMS/ML NORMAL URO GENITAL ANIL Normal [facility] Comment on above: Performed By: #### 6 30-4 #### [facility] ([id number]) [address] [address] [place] [address] BASIC METABOLIC PANLon 12-01 Anion gap [Moles/Vol] 6 mmol/L Normal 5-15 [facility] Comment on above: Performed By: #### C BCA, BMP, 41625-9, 2777-1 #### [facility] ([id number]) [address], [facility] [address] [place] [address] Calcium [Mass/Vol] 8.0 mg/dL Low 8.5-10.5 [facility] Comment on above: Performed By: #### C BCA, BMP, 32407-0, 2777-1 #### [facility] ([id number]) [address], [facility] [address] [place] [address] Chloride [Moles/Vol] 104 mmol/L Normal 98-109 [facility] Comment on above: Performed By: #### C JOHN, BMP, , 2776-07 #### [facility] ([id number]) [address], [facility] [address] [place] [address] CO2 [Moles/Vol] 28 mmol/L Normal 22-32 [facility] Comment on above: Performed By: #### C BCA, BMP, , 2776-07 #### [facility] ([id number]) [address] [address] Creatinine [Mass/Vol] 0.91 mg/dL Normal 0.60-1.30 [facility] Comment on above: Result Comment: METH OD TRACEABLE TO IDMS STANDARD Performed By: #### C JOHN, BMP, , 2776-07 #### [facility] ([id number]) [address], [address] [address] eGFR (CKD-EPI) NON-RACE DEPENDENT >90 Normal >59 [facility] Comment on above: Result Comment: Reported eGFR is based on the CKD-EPI 2020 equation that does not use a race coefficient. Performed By: #### C JONH, BMP, , 2776-07 #### [facility] ([id number]) [address], [address] [address] Glucose [Mass/Vol] 112 mg/dL High 65-99 [facility] Comment on above: Performed By: #### C BCA, BMP, , 2776-07 #### [facility] ([id number]) [address] [address] Potassium [Moles/Vol] 3.8 mmol/L Normal 3.5-5.0 [facility] Comment on above: Performed By: #### C BCA, BMP, , 2777-1 #### [facility] ([id number]) [address], [address] [place] [address] Sodium [Moles/Vol] 138 mmol/L Normal 134-146 [facility] Comment on above: Performed By: #### C JOHN, BMP, , 2776-07 #### [facility] ([id number]) [address], [address] [place] [address] Urea nitrogen [Mass/Vol] 15 mg/dL Normal 5-23 [facility] Comment on above: Performed By: #### C JOHN, BMP, , 2776-07 #### [facility] ([id number]) [address], [address] [place] [address] CBC AND AUTO DIFFon 05-20-20 24 ABSOLUTE BASOPHIL 0.0 X10E9/L Normal 0.0-0.2 [facility] Comment on above: Performed By: #### C JOHN, BMP, , 2776-07 #### [facility] ([id number]) [address], [address] [place] [address] ABSOLUTE NEUTROPHIL 3.7 X10E9/L Normal 1.5-6.6 [facility] Comment on above: Performed By: #### Richa LOPEZ, BMP, , 2776-07 #### [facility] ([id number]) [address], [address] [place] [address] Basophils/100 WBC (Bld) 0.4 % Normal [facility] Comment on above: Performed By: #### C JOHN, BMP, , 2776-07 #### [facility] ([id number]) [address], [address] [place] [address] Eosinophils (Bld) [#/Vol] 0.2 10*3/uL Normal 0.0-0.4 [facility] Comment on above: Performed By: #### C JOHN, BMP, , 2776-07 #### [facility] ([id number]) [address], [address] [place] [address] Eosinophils/100 WBC (Bld) 3.5 % Normal [facility] Comment on above: Performed By: #### C JOHN, BMP, , 2776-07 #### [facility] ([id number]) [address], [address] [place] [address] Erythrocyte distribution width (RBC) [Ratio] 12.5 % Normal 11.5-15.0 [facility] Comment on above: Performed By: #### C JOHN, [facility], , 2776-07 #### [facility] ([id number]) [address], [address] [place] [address] Hematocrit (Bld) [Volume fraction] 40.6 % Normal 39-49 [facility] Comment on above: Performed By: #### C JOHN, [facility], , 2776-07 #### [facility] ([id number]) [address], [facility] [address] [place] [address] Hemoglobin (Bld) [Mass/Vol] 13.9 g/dL Normal 13.0-17.0 [facility] Comment on above: Performed By: #### C JOHN, BMP, , 2776-07 #### [facility] ([id number]) [address], [address] [place] [address] Lymphocytes (Bld) [#/Vol] 1.5 10*3/uL Normal 1.0-3.5 [facility] Comment on above: Performed By: #### C JOHN, BMP, , 2776-07 #### [facility] ([id number]) [address], [address] [place] [address] Lymphocytes/100 WBC (Bld) 25.2 % Normal [facility] Comment on above: Performed By: #### C BCA, BMP, , 2776-07 #### [facility] ([id number]) [address], [address] [place] [address] MCH (RBC) [Entitic mass] 30.6 pg Normal 27-34 [facility] Comment on above: Performed By: #### C BCA, BMP, , 2776-07 #### [facility] ([id number]) [address], [address] [place] [address] MCHC (RBC) [Mass/Vol] 34.3 g/dL Normal 32-36 [facility] Comment on above: Performed By: #### C BCA, BMP, , 2776-07 #### [facility] ([id number]) [address], [address] [place] [address] MCV (RBC) [Entitic vol] 89 fL Normal 80-100 [facility] Comment on above: Performed By: #### C BCA, BMP, , 2776-07 #### [facility] ([id number]) [address] [place] [address] Monocytes (Bld) [#/Vol] 0.5 10*3/uL Normal 0-0.9 [facility] Comment on above: Performed By: #### C BCA, BMP, , 2776-07 #### [facility] ([id number]) [address] [place] [address] Monocytes/100 WBC (Bld) 7.9 % Normal [facility] Comment on above: Performed By: #### C BCA, BMP, , 2776-07 #### [facility] ([id number]) [address], [address] [place] [address] Neutrophils/100 WBC (Bld) 63.0 % Normal [facility] Comment on above: Performed By: #### C ALEXYS LOPEZ, , 2776-07 #### [facility] ([id number]) [address], [address] [place] [address] Platelet mean volume (Bld) [Entitic vol] 7.8 fL Normal 7-12 [facility] Comment on above: Performed By: #### C ALEXYS LOPEZ, , 2776-07 #### [facility] ([id number]) [address] [place] [address] Platelets (Bld) [#/Vol] 193 10*3/uL Normal 150-450 [facility] Comment on above: Performed By: #### C ALEXYS LOPEZ, , 2776-07 #### [facility] ([id number]) [address] [address] [place] [address] RBC COUNT 4.55 X10E12/L Normal 4.10-5.70 [facility] Comment on above: Performed By: #### C ALEXYS LOPEZ, , 2776-07 #### [facility] ([id number]) [address] [address] [place] [address] WBC (Bld) [#/Vol] 5.9 10*3/uL Normal 4.0-11.0 [facility] Comment on above: Performed By: #### ALEXYS Chaudhry BCA, , 2776-07 #### [facility] ([id number]) [address] [address] [place] [address] MAGNESIUMon 12-02-2023 Magnesium [Mass/Vol] 1.8 mg/dL Normal 1.8-2.6 [facility] Comment on above: Performed By: #### ALEXYS Chaudhry BCA, , 2776-07 #### [facility] ([id number]) [address] [place] [address] PHOSPHORUSon 12-02-2023 Phosphate [Mass/Vol] 3.2 mg/dL Normal 2.4-4.9 [facility] Comment on above: Performed By: #### C BCA, BMP, 23327-6, 2777-1 #### [facility] ([id number]) [address], [address] [place] [address] Activated partial thrombopla stin time (aPTT) in platelet poor plasma by coagulation aOrdered By: Hernandez Lares on 12-01-2023 aPTT Coag (PPP) [Time] 31.9 s 25.1-36.5 [facility] Comment on above: A hematocrit value g reater than 55% may lead to inaccurate results in coagulation testing. Patients having hematocrit values >55% require a special collection tube for coagulation studies. Please contact the laboratory at [phone] for redraw instructions. Alanine aminotransferase [En zymatic activity/volume] in Serum or PlasmaOrdered By: Hernandez Lares on 12-01-2023 ALT [Catalytic activity/Vol] 21 U/L 7-52 [facility] Albumin [Mass/volume] in Ser um or Plasma by Bromocresol green (BCG) dye binding methoOrdered By: Hernandez Lares on 12-01-2023 Albumin BCG dye [Mass/Vol] 3.7 g/dL 3.5-5.7 [facility] Alkaline phosphatase [Enzyma tic activity/volume] in Serum or PlasmaOrdered By: Hernandez Lares on 12-01-2023 ALP [Catalytic activity/Vol] 89 U/L 34-104 [facility] Amorphous urine sedimentOrde red By: Hernandez Lares on 12-01-2023 Amorphous sediment LM Ql (Urine sed) See comment Negative [facility] Comment on above: Unable to obtain acc urate result due to color interference. Aspartate aminotransferase [ Enzymatic activity/volume] in Serum or PlasmaOrdered By: Hernandez Lares on 12-01-2023 AST [Catalytic activity/Vol] 20 U/L 13-39 [facility] Automated epithelial cells c ount in urine sediment (number/area)Ordered By: Hernandez Lares on 12-01-2023 Epithelial cells Auto (Urine sed) [#/Area] None seen [HPF] 0-2 [facility] Automated urine specific gra vity by refractometryOrdered By: Hernandez Lares on 12-01-2023 Specific gravity Refractometry automated (U) [Rel density] 1.010 1.001-1.030 [facility] BASIC METABOLIC PANLon 11-30 Anion gap [Moles/Vol] 6 mmol/L Normal 5-15 [facility] Comment on above: Performed By: #### C JOHN BMP, , 2776-07 #### [facility] ([id number]) [address], [address] [place] [address] Calcium [Mass/Vol] 8.2 mg/dL Low 8.5-10.5 [facility] Comment on above: Performed By: #### C JOHN, BMP, , 2776-07 #### [facility] ([id number]) [address], [address] [place] [address] Chloride [Moles/Vol] 104 mmol/L Normal 98-109 [facility] Comment on above: Performed By: #### C JOHN, BMP, , 2776-07 #### [facility] ([id number]) [address], [address] [place] [address] CO2 [Moles/Vol] 30 mmol/L Normal 22-32 [facility] Comment on above: Performed By: #### C JOHN, BMP, , 2776-07 #### [facility] ([id number]) [address], [address] [place] [address] Creatinine [Mass/Vol] 0.90 mg/dL Normal 0.60-1.30 [facility] Comment on above: Result Comment: METH OD TRACEABLE TO IDMS STANDARD Performed By: #### C JOHN, BMP, , 2776-07 #### [facility] ([id number]) [address], [address] [place] [address] eGFR (CKD-EPI) NON-RACE DEPENDENT >90 Normal >59 [facility] Comment on above: Result Comment: Reported eGFR is based on the CKD-EPI 2020 equation that does not use a race coefficient. Performed By: #### C JOHN, BMP, , 2776-07 #### [facility] ([id number]) [address], [address] [place] [address] Glucose [Mass/Vol] 88 mg/dL Normal 65-99 [facility] Comment on above: Performed By: #### C BCA, BMP, , 2776-07 #### [facility] ([id number]) [address], [address] [place] [address] Potassium [Moles/Vol] 3.6 mmol/L Normal 3.5-5.0 [facility] Comment on above: Performed By: #### C JOHN, [facility], , 2776-07 #### [facility] ([id number]) [address], [address] [place] [address] Sodium [Moles/Vol] 140 mmol/L Normal 134-146 [facility] Comment on above: Performed By: #### C JOHN, [facility], , 2776-07 #### [facility] ([id number]) [address], [facility] [address] [place] [address] Urea nitrogen [Mass/Vol] 10 mg/dL Normal 5-23 [facility] Comment on above: Performed By: #### C BCA, BMP, , 2776-07 #### [facility] ([id number]) [address], [address] [place] [address] Bacteria [Presence] in Urine by AutomatedOrdered By: Hernandez Lares on 12-01-2023 Bacteria Auto Ql (U) None seen [HPF] None Seen [facility] Basophils Auto (Bld) [#/Vol] Ordered By: Hernandez Lares on 12-01-2023 Basophils (Bld) [#/Vol] 0.0 10*3/uL 0.0-0.2 [facility] Basophils/100 WBC Auto (Bld) Ordered By: Hernandez Lares on 12-01-2023 Basophils/100 WBC (Bld) 0.6 % . [facility] Bilirubin Auto test strip Ql (U)Ordered By: Hernandez Lares on 12-01-2023 Bilirubin Ql (U) See comment Negative [facility] Comment on above: Unable to obtain acc urate result due to color interference. Bilirubin.total [Mass/volume ] in Serum or PlasmaOrdered By: Hernandez Lares on 12-01-2023 Bilirubin [Mass/Vol] 0.5 mg/dL 0.3-1.0 [facility] CBC AND AUTO DIFFon 12-01-19 ABSOLUTE BASOPHIL 0.0 X10E9/L Normal 0.0-0.2 [facility] Comment on above: Performed By: #### C JOHN [facility], , 2776-07 #### [facility] ([id number]) [address], [address] [place] [address] ABSOLUTE NEUTROPHIL 4.2 X10E9/L Normal 1.5-6.6 [facility] Comment on above: Performed By: #### Richa LOPEZ [facility], , 2776-07 #### [facility] ([id number]) [address], [address] [place] [address] Basophils/100 WBC (Bld) 0.5 % Normal [facility] Comment on above: Performed By: #### Richa LOPEZ BMP, , 2776-07 #### [facility] ([id number]) [address], [address] [place] [address] Eosinophils (Bld) [#/Vol] 0.2 10*3/uL Normal 0.0-0.4 [facility] Comment on above: Performed By: #### Richa LOPEZ BMP, , 2776-07 #### [facility] ([id number]) [address], [address] [place] [address] Eosinophils/100 WBC (Bld) 2.8 % Normal [facility] Comment on above: Performed By: #### ALEXYS Chaudhry BCA, , 2776-07 #### [facility] ([id number]) [address] [address] [place] [address] Erythrocyte distribution width (RBC) [Ratio] 12.9 % Normal 11.5-15.0 [facility] Comment on above: Performed By: #### C JOHN, BMP, , 2776-07 #### [facility] ([id number]) [address] [address] Hematocrit (Bld) [Volume fraction] 43.1 % Normal 39-49 [facility] Comment on above: Performed By: #### Richa LOPEZ, BMP, , 2776-07 #### [facility] ([id number]) [address] [address] Hemoglobin (Bld) [Mass/Vol] 14.9 g/dL Normal 13.0-17.0 [facility] Comment on above: Performed By: #### Richa LOPEZ, BMP, , 2776-07 #### [facility] ([id number]) [address] [address] Lymphocytes (Bld) [#/Vol] 1.5 10*3/uL Normal 1.0-3.5 [facility] Comment on above: Performed By: #### C JOHN, BMP, , 2776-07 #### [facility] ([id number]) [address] [address] Lymphocytes/100 WBC (Bld) 23.7 % Normal [facility] Comment on above: Performed By: #### Richa LOPEZ, BMP, , 2776-07 #### [facility] ([id number]) [address], [address] [place] [address] MCH (RBC) [Entitic mass] 30.8 pg Normal 27-34 [facility] Comment on above: Performed By: #### C BCA, BMP, , 2776-07 #### [facility] ([id number]) [address], [address] [place] [address] MCHC (RBC) [Mass/Vol] 34.5 g/dL Normal 32-36 [facility] Comment on above: Performed By: #### C BCA, BMP, , 2776-07 #### [facility] ([id number]) [address], [address] [place] [address] MCV (RBC) [Entitic vol] 89 fL Normal 80-100 [facility] Comment on above: Performed By: #### Richa BCA, BMP, , 2776-07 #### [facility] ([id number]) [address], [address] [place] [address] Monocytes (Bld) [#/Vol] 0.5 10*3/uL Normal 0-0.9 [facility] Comment on above: Performed By: #### Richa BCA, BMP, , 2776-07 #### [facility] ([id number]) [address] [place] [address] Monocytes/100 WBC (Bld) 8.0 % Normal [facility] Comment on above: Performed By: #### C BCA, BMP, , 2776-07 #### [facility] ([id number]) [address], [facility] [address] [place] [address] Neutrophils/100 WBC (Bld) 65.0 % Normal [facility] Comment on above: Performed By: #### C BCA, BMP, , 2776-07 #### [facility] ([id number]) [address], [address] [place] [address] Platelet mean volume (Bld) [Entitic vol] 7.8 fL Normal 7-12 [facility] Comment on above: Performed By: #### C BCA, BMP, , 2776-07 #### [facility] ([id number]) [address], [facility] [address] [place] [address] Platelets (Bld) [#/Vol] 193 10*3/uL Normal 150-450 [facility] Comment on above: Performed By: #### C BCA, BMP, , 2776-07 #### [facility] ([id number]) [address], [facility] [address] [place] [address] RBC COUNT 4.83 X10E12/L Normal 4.10-5.70 [facility] Comment on above: Performed By: #### Richa BCA, BMP, , 2776-07 #### [facility] ([id number]) [address], [facility] [address] [place] [address] WBC (Bld) [#/Vol] 6.4 10*3/uL Normal 4.0-11.0 [facility] Comment on above: Performed By: #### Richa BCA, BMP, , 1 #### [facility] ([id number]) [address], [address] [place] [address] Calcium [Mass/volume] in Ser um or PlasmaOrdered By: Hernandez Lares on 12-01-2023 Calcium [Mass/Vol] 8.6 mg/dL 8.6-10.3 [facility] Carbon dioxide, total [Moles /volume] in Serum or PlasmaOrdered By: Hernandez Lares on 12-01-2023 CO2 [Moles/Vol] 26.9 mmol/L 21.0-31.0 [facility] Chloride [Moles/volume] in S tito or PlasmaOrdered By: Hernandez Lares on 12-01-2023 Chloride [Moles/Vol] 105 mmol/L 98-107 [facility] Complete Blood Count Auto Di ffon 12-01-2023 Basophils (Bld) [#/Vol] 0.0 10*3/uL Normal 0.0-0.2 [facility] Comment on above: Result Comment: PERF ORMED BY: [place] [address] PATHOLOGIST DOPE EDGER HIRNE KAPLAN M.D. Performed By: #### C BC, CMP #### [address] Basophils/100 WBC (Bld) 0.6 % Normal . [facility] Comment on above: Performed By: #### C BC, CMP #### [address] Eosinophils (Bld) [#/Vol] 0.2 10*3/uL Normal 0.0-0.45 [facility] Comment on above: Performed By: #### C BC, CMP #### [address] Eosinophils/100 WBC (Bld) 3.0 % Normal . [facility] Comment on above: Performed By: #### C BC, CMP #### [address] Erythrocyte distribution width (RBC) [Ratio] 12.9 % Normal 12.0-14.8 [facility] Comment on above: Performed By: #### C BC, CMP #### [address] Hematocrit (Bld) [Volume fraction] 43.0 % Normal 38.8-50.0 [facility] Comment on above: Performed By: #### C BC, CMP #### [address] Hemoglobin (Bld) [Mass/Vol] 14.8 g/dL Normal 13.0-17.0 [facility] Comment on above: Performed By: #### C BC, CMP #### [place] [address] [place] Lymphocytes (Bld) [#/Vol] 1.8 10*3/uL Normal 1.00-4.8 [facility] Comment on above: Performed By: #### C BC, CMP #### [address] Lymphocytes/100 WBC (Bld) 26.4 % Normal . [facility] Comment on above: Performed By: #### C BC, CMP #### [address] MCH (RBC) [Entitic mass] 30.8 pg Normal 27.5-35.2 [facility] Comment on above: Performed By: #### C BC, CMP #### [address] MCV (RBC) [Entitic vol] 89.5 fL Normal 83.5-101 [facility] Comment on above: Performed By: #### C BC, CMP #### [address] Mean Corpuscular HGB Conc 34.4 g/dL Normal 32.5-35.6 [facility] Comment on above: Performed By: #### C MARY BETH, CMP #### [address] Monocytes (Bld) [#/Vol] 0.6 10*3/uL Normal 0.0-0.8 [facility] Comment on above: Performed By: #### C BC, CMP #### [address] Monocytes/100 WBC (Bld) 18.12 % Normal 0.00-20.00 [facility] Comment on above: Performed By: #### C BC, CMP #### [address] Monocytes/100 WBC (Bld) 8.8 % Normal . [facility] Comment on above: Performed By: #### C BC, CMP #### [address] Neutrophils (Bld) [#/Vol] 4.1 10*3/uL Normal 1.8-7.7 [facility] Comment on above: Performed By: #### C BC, CMP #### [address] Neutrophils/100 WBC (Bld) 61.2 % Normal . [facility] Comment on above: Performed By: #### C BC, CMP #### [address] NRBC% 0.1 /100{WBC} Normal 0-0.5 [facility] Comment on above: Performed By: #### C BC, CMP #### [address] Platelet mean volume (Bld) [Entitic vol] 7.8 fL Normal 6.6-10.1 [facility] Comment on above: Performed By: #### C BC, CMP #### [address] Platelets (Bld) [#/Vol] 229 10*3/uL Normal 150-450 [facility] Comment on above: Performed By: #### C BC, CMP #### [address] RBC (Bld) [#/Vol] 4.80 10*6/uL Normal 3.90-5.60 [facility] Comment on above: Performed By: #### C BC, CMP #### [address] WBC (Bld) [#/Vol] 6.7 10*3/uL Normal 4.1-10.5 [facility] Comment on above: Performed By: #### C BC, CMP #### [address] Comprehensive Metabolic Pane demetrius 12-01-2023 Albumin [Mass/Vol] 3.7 g/dL Normal 3.5-5.7 [facility] Comment on above: Performed By: #### C BC, CMP #### [address] Albumin/Globulin [Mass ratio] 1.4 {ratio} Normal [facility] Comment on above: Performed By: #### C BC, CMP #### [address] ALP [Catalytic activity/Vol] 89 U/L Normal 34-104 [facility] Comment on above: Performed By: #### C BC, CMP #### [address] ALT [Catalytic activity/Vol] 21 U/L Normal 7-52 [facility] Comment on above: Performed By: #### C BC, CMP #### [address] Anion gap [Moles/Vol] 8.7 mmol/L Normal 6.0-15.0 [facility] Comment on above: Performed By: #### C BC, CMP #### [address] AST [Catalytic activity/Vol] 20 U/L Normal 13-39 [facility] Comment on above: Performed By: #### C BC, CMP #### [place] [address] [place] Bilirubin [Mass/Vol] 0.5 mg/dL Normal 0.3-1.0 [facility] Comment on above: Performed By: #### C BC, CMP #### [place] [address] [place] Calcium [Mass/Vol] 8.6 mg/dL Normal 8.6-10.3 [facility] Comment on above: Performed By: #### C BC, CMP #### [place] [address] [place] Chloride [Moles/Vol] 105 mmol/L Normal 98-107 [facility] Comment on above: Performed By: #### C BC, CMP #### [place] [address] [place] CO2 [Moles/Vol] 26.9 mmol/L Normal 21.0-31.0 [facility] Comment on above: Performed By: #### C BC, CMP #### [address] Creatinine [Mass/Vol] 0.91 mg/dL Normal 0.70-1.30 [facility] Comment on above: Performed By: #### C BC, CMP #### [place] [address] [place] Creatinine Clr Calc Pharmacy 127.55 Normal [facility] Comment on above: Result Comment: PERF ORMED BY: [place] [address] PATHOLOGIST DOPE EDGER HIREN KAPLAN M.D. Performed By: #### C BC, CMP #### [address] GFR/1.73 sq M.predicted MDRD (S/P/Bld) [Vol rate/Area] mL/min/{1.73_m2} Normal [facility] Comment on above: Performed By: #### C BC, CMP #### [address] Globulin (S) [Mass/Vol] 2.6 g/dL Normal [facility] Comment on above: Performed By: #### C BC, CMP #### [address] Glucose [Mass/Vol] 101 mg/dL High 70-100 [facility] Comment on above: Result Comment: [place] Glucose Reference Range is dependent on time and content of last meal. Glucose of more than 200 mg/dL in a nonstressed, ambulatory subject supports the diagnosis of Diabetes Mellitus. ADA recommended reference range Performed By: #### C BC, CMP #### [address] Potassium [Moles/Vol] 3.6 mmol/L Normal 3.5-5.1 [facility] Comment on above: Performed By: #### C BC, CMP #### [address] Protein [Mass/Vol] 6.3 g/dL Low 6.4-8.9 [facility] Comment on above: Performed By: #### C BC, CMP #### [address] Sodium [Moles/Vol] 137 mmol/L Normal 136-145 [facility] Comment on above: Performed By: #### C BC, CMP #### [facility] [address] [place] [address] [place] Urea nitrogen [Mass/Vol] 14 mg/dL Normal 7-25 [facility] Comment on above: Performed By: #### C BC, CMP #### [address] Creatinine [Mass/volume] in Serum or PlasmaOrdered By: Hernandez Lares on 12-01-2023 Creatinine [Mass/Vol] 0.91 mg/dL 0.70-1.30 [facility] Dipstick and Microscopicon 0 12-01-2023 Appearance (U) Turbid Critically abnormal Clear [facility] Comment on above: Order Comment: Name Collection Type:: Clean-Voided Midstream Performed By: #### A DDONUAPLUS, CUU #### [place] [address] [place] Bacteria,Urine None Seen Normal None Seen [facility] Comment on above: Order Comment: Name Collection Type:: Clean-Voided Midstream Result Comment: PERF ORMED BY: [place] [address] PATHOLOGIST DOPE EDGER HIREN KAPLAN M.D. Performed By: #### A DDONUAPLUS, CUU #### [place] [address] [place] Bilirubin,Urine Normal Negative [facility] Comment on above: Order Comment: Name Collection Type:: Clean-Voided Midstream Result Comment: Unab le to obtain accurate result due to color interference. Performed By: #### A DDONUAPLUS, CUU #### [facility] [address] [id number] [place] Color (U) Red Critically abnormal Yellow [facility] Comment on above: Order Comment: Name Collection Type:: Clean-Voided Midstream Performed By: #### A DDONUAPLUS, CUU #### [facility] [address] Glucose Ql (U) Normal Normal [facility] Comment on above: Order Comment: Name Collection Type:: Clean-Voided Midstream Result Comment: Unab le to obtain accurate result due to color interference. Performed By: #### A DDONUAPLUS, CUU #### [place] [address] [place] Ketones Ql (U) Normal Negative [facility] Comment on above: Order Comment: Name Collection Type:: Clean-Voided Midstream Result Comment: Unab le to obtain accurate result due to color interference. Performed By: #### A DDONUAPLUS, CUU #### [address] Leukocyte esterase Test strip Ql (U) Normal Negative [facility] Comment on above: Order Comment: Name Collection Type:: Clean-Voided Midstream Result Comment: Unab le to obtain accurate result due to color interference. Performed By: #### A DDONUAPLUS, CUU #### [place] [address] [place] Nitrite,Urine Normal Negative [facility] Comment on above: Order Comment: Name Collection Type:: Clean-Voided Midstream Result Comment: Unab le to obtain accurate result due to color interference. Performed By: #### A DDONUAPLUS, CUU #### [place] [address] [place] Occult Blood,Urine Normal Negative [facility] Comment on above: Order Comment: Name Collection Type:: Clean-Voided Midstream Result Comment: Unab le to obtain accurate result due to color interference. Performed By: #### A DDONUAPLUS, CUU #### [place] [address] [place] pH,Urine Normal 5.0-9.0 [facility] Comment on above: Order Comment: Name Collection Type:: Clean-Voided Midstream Result Comment: Unab le to obtain accurate result due to color interference. Performed By: #### A DDONUAPLUS, CUU #### [address] Protein,Urine Normal Negative [facility] Comment on above: Order Comment: Name Collection Type:: Clean-Voided Midstream Result Comment: Unab le to obtain accurate result due to color interference. Performed By: #### A DDONUAPLUS, CUU #### [address] RBC,Urine Innumerable High 0-4 [facility] Comment on above: Order Comment: Name Collection Type:: Clean-Voided Midstream Performed By: #### A DDONUAPLUS, CUU #### [address] Specificy [place],Urine 1.010 Normal 1.001-1.030 [facility] Comment on above: Order Comment: Name Collection Type:: Clean-Voided Midstream Performed By: #### A DDONUAPLUS, CUU #### [address] Squamous Epithelial Cell,Urine None Seen Normal 0-2 [facility] Comment on above: Order Comment: Name Collection Type:: Clean-Voided Midstream Performed By: #### A DDONUAPLUS, CUU #### [address] Urobilinogen,Urine Normal Normal [facility] Comment on above: Order Comment: Name Collection Type:: Clean-Voided Midstream Result Comment: Unab le to obtain accurate result due to color interference. Performed By: #### A DDONUAPLUS, CUU #### [address] WBC,Urine 1-2 Normal 0-4 [facility] Comment on above: Order Comment: Name Collection Type:: Clean-Voided Midstream Performed By: #### A DDONUAPLUS, CUU #### [address] Eosinophils Auto (Bld) [#/Vo l]Ordered By: Hernandez Lares on 12-01-2023 Eosinophils (Bld) [#/Vol] 0.2 10*3/uL 0.0-0.45 [facility] Eosinophils/100 WBC Auto (Bl d)Ordered By: Hernandez Lares on 12-01-2023 Eosinophils/100 WBC (Bld) 3.0 % . [facility] Erythrocyte distribution wid th Auto (RBC) [Ratio]Ordered By: Hernandez Lares on 12-01-2023 Erythrocyte distribution width (RBC) [Ratio] 12.9 % 12.0-14.8 [facility] Erythrocytes [#/area] in Uri ne sediment by Automated countOrdered By: Hernandez Lares on 12-01-2023 RBC Auto (Urine sed) [#/Area] Innumerable [HPF] 0-4 [facility] Globulin Calc (S) [Mass/Vol] Ordered By: Hernandez Lares on 12-01-2023 Globulin (S) [Mass/Vol] 2.6 g/dL [facility] Glucose [Mass/volume] in Ser um or PlasmaOrdered By: Hernandez Lares on 12-01-2023 Glucose [Mass/Vol] 101 mg/dL 70-100 [facility] Comment on above: ADA recommended refe rence rangeRandom Glucose Reference Range is dependent on time and content of last meal. Glucose of more than 200 mg/dL in a nonstressed, ambulatory subject supports the diagnosis of Diabetes Mellitus. Hematocrit Auto (Bld) [Volum e fraction]Ordered By: Hernandez Lares on 12-01-2023 Hematocrit (Bld) [Volume fraction] 43.0 % 38.8-50.0 [facility] Hemoglobin [Mass/volume] in BloodOrdered By: Hernandez Lares on 12-01-2023 Hemoglobin (Bld) [Mass/Vol] 14.8 g/dL 13.0-17.0 [facility] INR in Platelet poor plasma by Coagulation assayOrdered By: Hernandez Lares on 12-01-2023 INR Coag (PPP) [Relative time] 1.0 {INR} [facility] Comment on above: INR Therapeutic Rang e A) Pre- and Peroperative OAT started two weeks before surgery. NOT HIP SURGERY: 1.5 - 2.5 HIP SURGERY: 2 - 3B) Primary and secondary prevention of venous THROMBOSIS: 2 - 3C) Active venous thrombosis, pulmonary embolismand prevention of recurrent venous thrombosis: 2 - 3D) Prevention of arterial thromboembolismincluding patients with mechanical heart valves: 3 - 4.5 Ketones Test strip (U) [Mass /Vol]Ordered By: Hernandez Lares on 12-01-2023 Ketones (U) [Mass/Vol] See comment Negative [facility] Comment on above: Unable to obtain acc urate result due to color interference. Leukocytes [#/area] in Urine sediment by Automated countOrdered By: Hernandez Lares on 12-01-2023 WBC Auto (Urine sed) [#/Area] 1-2 [HPF] 0-4 [facility] Leukocytes [#/volume] correc pooja for nucleated erythrocytes in Blood by Automated counOrdered By: Hernandez Lares on 12-01-2023 WBC corrected for nucl RBC Auto (Bld) [#/Vol] 6.7 10*3/uL 4.1-10.5 [facility] Lymphocytes Auto (Bld) [#/Vo l]Ordered By: Hernandez Lares on 12-01-2023 Lymphocytes (Bld) [#/Vol] 1.8 10*3/uL 1.00-4.8 [facility] Lymphocytes/100 WBC Auto (Bl d)Ordered By: Hernandez Lares on 12-01-2023 Lymphocytes/100 WBC (Bld) 26.4 % . [facility] MAGNESIUMon 12-01-2023 Magnesium [Mass/Vol] 1.9 mg/dL Normal 1.8-2.6 [facility] Comment on above: Performed By: #### C BCA, BMP, 27948-6, 2777-1 #### [facility] ([id number]) [address], [address] [place] [address] MCH Auto (RBC) [Entitic mass ]Ordered By: Hernandez Lares on 12-01-2023 MCH (RBC) [Entitic mass] 30.8 pg 27.5-35.2 [facility] MCHC Auto (RBC) [Mass/Vol]Or dered By: Hernandez Lares on 12-01-2023 MCHC (RBC) [Mass/Vol] 34.4 g/dL 32.5-35.6 [facility] MCV Auto (RBC) [Entitic vol] Ordered By: Hernandez Lares on 12-01-2023 MCV (RBC) [Entitic vol] 89.5 fL 83.5-101 [facility] Monocyte distribution width [Entitic volume] in Blood by AutomatedOrdered By: Hernandez Lares on 12-01-2023 Monocyte distribution width Auto (Bld) [Entitic vol] 18.12 % 0.00-20.00 [facility] Monocytes Auto (Bld) [#/Vol] Ordered By: Hernandez Lares on 12-01-2023 Monocytes (Bld) [#/Vol] 0.6 10*3/uL 0.0-0.8 [facility] Monocytes/100 WBC Auto (Bld) Ordered By: Hernandez Lares on 12-01-2023 Monocytes/100 WBC (Bld) 8.8 % . [facility] Neutrophils Auto (Bld) [#/Vo l]Ordered By: Hernandez Lares on 12-01-2023 Neutrophils (Bld) [#/Vol] 4.1 10*3/uL 1.8-7.7 [facility] Neutrophils/100 WBC Auto (Bl d)Ordered By: Hernandez Lares on 12-01-2023 Neutrophils/100 WBC (Bld) 61.2 % . [facility] No Panel InformationOrdered By: Hernandez Lares on 12-01-2023 Estimated GFR (CKD-EPI) > 60.0 mL/Min [facility] Creatinine Clearance (Chem 127.55 [facility] Nucleated erythrocytes [Pres ence] in Blood by Automated countOrdered By: Hernandez Lares on 12-01-2023 Nucleated RBC Auto Ql (Bld) 0.1 /100{WBC} 0-0.5 [facility] PHOSPHORUSon 12-01-2023 Phosphate [Mass/Vol] 3.3 mg/dL Normal 2.4-4.9 [facility] Comment on above: Performed By: #### C BCA, BMP, 72430-6, 2777-1 #### [facility] ([id number]) [address], [address] [place] [address] Partial Thromboplastin Timeo n 12-01-2023 aPTT Coag (Bld) [Time] 31.9 s Normal 25.1-36.5 [facility] Comment on above: Order Comment: REDRA W: PRIOR SAMPLE QNS Result Comment: A he matocrit value greater than 55% may lead to inaccurate results in coagulation testing. Patients having hematocrit values >55% require a special collection tube for coagulation studies. Please contact the laboratory at [phone] for redraw instructions. PERFORMED BY: [place] [id number] PATHOLOGIST DOPE EDGER HIREN KAPLAN M.D. Performed By: #### P TT, PT #### [address] Platelet mean volume Auto (B ld) [Entitic vol]Ordered By: Hernandez Lares on 12-01-2023 Platelet mean volume (Bld) [Entitic vol] 7.8 fL 6.6-10.1 [facility] Platelets Auto (Bld) [#/Vol] Ordered By: Hernandez Lares on 12-01-2023 Platelets (Bld) [#/Vol] 229 10*3/uL 150-450 [facility] Potassium [Moles/volume] in Serum or PlasmaOrdered By: Hernandez Lares on 12-01-2023 Potassium [Moles/Vol] 3.6 mmol/L 3.5-5.1 [facility] Protein Auto test strip (U) [Mass/Vol]Ordered By: Hernandez Lares on 12-01-2023 Protein (U) [Mass/Vol] See comment Negative [facility] Comment on above: Unable to obtain acc urate result due to color interference. Protein [Mass/volume] in Ser um or PlasmaOrdered By: Hernandez Lares on 12-01-2023 Protein [Mass/Vol] 6.3 g/dL 6.4-8.9 [facility] Prothrombin Time INRon 11-30 INR Coag (PPP) [Relative time] 1.0 {INR} Normal [facility] Comment on above: Order Comment: REDRA W: PRIOR SAMPLE QNS Result Comment: INR Therapeutic Range A) Pre- and Peroperative OAT started two weeks before surgery. NOT HIP SURGERY: 1.5 - 2.5 HIP SURGERY: 2 - 3 B) Primary and secondary prevention of venous THROMBOSIS: 2 - 3 C) Active venous thrombosis, pulmonary embolism and prevention of recurrent venous thrombosis: 2 - 3 D) Prevention of arterial thromboembolism including patients with mechanical heart valves: 3 - 4.5 Performed By: #### P TT, PT #### [facility] [id number] [facility] PT Coag (PPP) [Time] 11.9 s Normal 9.0-12.9 [facility] Comment on above: Order Comment: REDRA W: PRIOR SAMPLE QNS Result Comment: A he matocrit value greater than 55% may lead to inaccurate results in coagulation testing. Patients having hematocrit values >55% require a special collection tube for coagulation studies. Please contact the laboratory at [phone] for redraw instructions. Performed By: #### P TT, PT #### [facility] [id number] [facility] Prothrombin time (PT)Ordered By: Hernandez Lares on 12-01-2023 PT Coag (PPP) [Time] 11.9 s 9.0-12.9 [facility] Comment on above: A hematocrit value g reater than 55% may lead to inaccurate results in coagulation testing. Patients having hematocrit values >55% require a special collection tube for coagulation studies. Please contact the laboratory at [phone] for redraw instructions. RBC Auto (Bld) [#/Vol]Ordere d By: Hernandez Lares on 12-01-2023 RBC (Bld) [#/Vol] 4.80 10*6/uL 3.90-5.60 [facility] Serum or plasma albumin/glob ulin mass ratioOrdered By: Hernandez Lares on 12-01-2023 Albumin/Globulin [Mass ratio] 1.4 {ratio} [facility] Serum or plasma anion gap de terminationOrdered By: Hernandez Lares on 12-01-2023 Anion gap [Moles/Vol] 8.7 mmol/L 6.0-15.0 [facility] Sodium [Moles/volume] in Ser um or PlasmaOrdered By: Hernandez Lares on 12-01-2023 Sodium [Moles/Vol] 137 mmol/L 136-145 [facility] Urea nitrogen [Mass/volume] in Serum or PlasmaOrdered By: Hernandez Lares on 12-01-2023 Urea nitrogen [Mass/Vol] 14 mg/dL 7-25 [facility] Urine Cultureon 12-01-2023 Bacteria identified Cx Nom (U) No Growth 2 Days PERFORMED BY: [place] [address] PATHOLOGIST DOPE EDGER HIREN KAPLAN M.D. Normal [facility] Comment on above: Performed By: #### A DDONUAPLUS, CUU #### [address] Urine appearanceOrdered By: Hernandez Lares on 12-01-2023 Appearance (U) Turbid Clear [facility] Urine colorOrdered By: Mary Lares on 12-01-2023 Color (U) Red Yellow [facility] Urine glucose measurement by automated test strip (mass/volume)Ordered By: Hernandez Lares on 12-01-2023 Glucose Auto test strip (U) [Mass/Vol] See comment Normal [facility] Comment on above: Unable to obtain acc urate result due to color interference. Urine leukocyte esterase det ection by automated test stripOrdered By: Hernandez Lares on 12-01-2023 Leukocyte esterase Auto test strip Ql (U) See comment Negative [facility] Comment on above: Unable to obtain acc urate result due to color interference. Urine nitrite detection by a utomated test stripOrdered By: Hernandez Lares on 12-01-2023 Nitrite Auto test strip Ql (U) See comment Negative [facility] Comment on above: Unable to obtain acc urate result due to color interference. Urobilinogen Test strip (U) [Mass/Vol]Ordered By: Hernandez Lares on 12-01-2023 Urobilinogen (U) [Mass/Vol] See comment Normal [facility] Comment on above: Unable to obtain acc urate result due to color interference. WBC Auto (Bld) [#/Vol]Ordere d By: Hernandez Lares on 12-01-2023 WBC (Bld) [#/Vol] 6.7 10*3/uL 4.1-10.5 [facility] pH Auto test strip (U)Ordere d By: Hernandez Lares on 12-01-2023 pH (U) See comment 5.0-9.0 [facility] Comment on above: Unable to obtain acc urate result due to color interference. NM BONE SCAN WHOLE BODYon NM BONE SCAN WHOLE BODY NM BONE SCAN WHOLE BODY HISTORY: A 52-year-old male with the [...] Diaz MD on 11/22/2023 9:16 PM Normal [facility] Cytologyon 11-13-2023 Cytology [address] [facility] Comment on above: Result Comment: [facility] [address] [place] [address] Cytology Consultation Patient Name:RENO ABREU:1970 (Age: 52)Gender:MTaken:11/13/2023eported:11/15/2023 16:54Physician(s):Lida Suh M.D. ([phone])Copy To: Rec. #:[id number]: #[id number] Final Cytologic Diagnosis Urine: Negative for high-grade urothelial cell carcinoma. nxk/11/15/2023 Interpret[place] performed [place] [address], License number: [id number].Electronically Signed Out By Álvaro Yanez MD Clinical History Malignant neoplasm of overlapping sites of bladder ([facility]) (C67.8). History of low grade urothelial cancer. Gross Description Received was 50 mL of yellow fluid in preservative labeled as [place], urine, clean catch midstream . 40 mL used for Cytology. See UroVysion report. 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 This test has been modified from the seismograph shooter's instructions. Its performance characteristics were determined by [facility] in a manner consistent with CLIA requirements. This test has not been cleared or approved by the U.S. Food and Drug Administration. Reason for Referral Evaluate for urothelial carcinoma. Specimen Varies Source Urine, NOS Released By Adrianna Proctor M.D. Test Performed by: [address] [address] Land Checker: Bear Mares M.D. Ph.D.; CLIA# [id number] URINE CULTUREon 11-13-2023 Bacteria identified Cx Nom (U) CULTURE RESULTS NO GROWTH AT <1000 CFU/mL Normal [facility] Comment on above: Performed By: #### 6 30-4 #### [facility] ([id number]) [address] [place] [address], [address] [place] [address] Surgical Pathologyon 024 Surgical Pathology Normal [facility] Comment on above: Result Comment: [facility] [address] [place] [address] Surgical Pathology Consultation Patient Name:RENO ABREU:1970 (Age: 52)Gender:MTaken:10/30/2023eported:11/01/2023hysician(s):Stephanie Suh M.D. ([phone])Copy To: Rec. #:[id number]: #[id number] Final Pathologic Diagnosis Bladder, TURB: Non-invasive PAPILLARY UROTHELIAL CARCINOMA, low grade. Muscularis propria is present. No invasion into the lamina propria or muscularis propria identified. Report Electronically Signed Out b/11/01/2023vanessa Partida MD Interpretation performed at [facility], [address] [place] [address], License number: [id number]. Clinical History Hematuria, microscopic. Bladder tumor, lateral to the right ureteral orifice. Gross Description Received in formalin labeled BRADY, bladder are 8 mosqueda irregular fragments of soft tissue, ranging from 0.2 to 0.6 cm in greatest dimension. Filtered and submitted in a single cassette. (1, ns, [id number], m6) [facility]/10/30/2023O Specimen(s) Received Bladder tumor lateral to the right ureteral orifice Fee Codes(s): 1; 90507 Prostate specific Ag [Mass/V ol]on 10-17-2023 PROSTATIC SPEC ANT 2.43 ng/mL Normal 0.00-4.00 [facility] Comment on above: Result Comment: The method used for this test is [place] DXI chemiluminescent immunoassay. Values obtained by different assay methods cannot be used interchangeably. Performed By: #### 2 857-1 #### [facility] ([id number]) [address], [address] [place] [address] URINALYSISon 10-17-2023 Bilirubin Ql (U) Negative Normal NEG [facility] BLOOD/HGB Trace Abnormal NEG [facility] Color (U) YELLOW Normal YELLOW [facility] Glucose Ql (U) Negative Normal NEG [facility] Ketones Ql (U) Negative Normal NEG [facility] Leukocyte esterase Test strip Ql (U) Negative Normal NEG [facility] Nitrite Ql (U) Negative Normal NEG [facility] pH (U) 6.0 [pH] Normal 5.0-8.[address] [facility] Protein Ql (U) Trace Abnormal NEG [facility] R.B.CELLS <1 Normal 0-[address] [facility] Specific gravity (U) [Rel density] 1.020 Normal 1.003-1.[address] [facility] TURBIDITY CLEAR Normal CLEAR [facility] Urobilinogen (U) [Mass/Vol] mg/dL Normal <1.[address] [facility] W.B.CELLS 3 /hpf Normal 0-[address] [facility] URINE CULTUREon 10-17-2023 Bacteria identified Cx Nom (U) CULTURE RESULTS <10,000 ORGANISMS/ML NORMAL URO GENITAL ANIL Normal [facility] Comment on above: Performed By: #### 6 30-4 #### [facility] ([id number]) [facility] [place] [address] CT UROGRAMon 10-01-[address] UROGRAM [...] Alcala MD on 10/01/2023 1:03 PM Normal [facility] Cytologyon 09-04-2023 Cytology Normal [facility] Comment on above: Result Comment: [facility] [address] [place] [address] Cytology Consultation Patient Name:KARLENE ABREU:1970 (Age: 52)Gender:MTaken:09/04/2023eported:09/06/2023 18:36Physician(s):Lida Suh M.D. ([phone])Copy To: Rec. #:[id number]: #[id number] Final Cytologic Diagnosis Urine: Negative for high-grade urothelial cell carcinoma. [facility]/09/06/2023 Interpretation performed at [facility], [address] [place] [address], License number: [id number].Electronically Signed Out By Brandt Rosas M.D. Clinical History Hematuria, microscopic (R31.29). Gross Description Received was 70 mL of yellow fluid unfixed labeled as [place], urine . CytoLyt added in lab. 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 Pablo Blanchard Aspartate aminotransferase [ Enzymatic activity/volume] in Serum or PlasmaOrdered By: Hernandez Lares on 09-04-2022 AST [Catalytic activity/Vol] 22 U/L 10-42 [facility] Automated erythrocytes count in urine sediment (number/area)Ordered By: Hernandez Lares on 09-04-2022 RBC Auto (Urine sed) [#/Area] 3-4 [HPF] 0-4 [facility] Automated leukocytes count i n urine sediment (number/area)Ordered By: Hernandez Lares on 09-04-2022 WBC Auto (Urine sed) [#/Area] 3-4 [HPF] 0-4 [facility] Basophils Auto (Bld) [#/Vol] Ordered By: Hernandez Lares on 09-04-2022 Basophils (Bld) [#/Vol] 0.1 10*3/uL 0.0-0.2 [facility] Basophils/100 WBC Auto (Bld) Ordered By: Hernandez Lares on 09-04-2022 Basophils/100 WBC (Bld) 0.7 % . [facility] Bilirubin Test strip Ql (U)O rdered By: Hernandez Lares on 09-04-2022 Bilirubin Ql (U) Negative Negative [facility] Body fluid albumin measureme nt (mass/volume)Ordered By: Hernandez Lares on 09-04-2022 Albumin (Body fld) [Mass/Vol] 3.6 g/dL 3.2-5.5 [facility] COVID CepheidOrdered By: Chapo Lares on 09-04-2022 SARS-CoV-2 (COVID-19) Ab IA Ql Negative Negative [facility] Comment on above: This is a duplicate [employer] Xpert Xpress CoV-2/Flu/RSV Plus RNA by RT-PCR result to be used for statistical tracking purpose only. SARS-CoV-2 (COVID-19) RNA NANCIE+probe Ql (Unsp spec) [facility] SARS-CoV-2 (COVID-19) RNA NANCIE+probe Ql (Unsp spec) [facility] Color Auto (U)Ordered By: Brandon Lares on 09-04-2022 Color (U) Yellow Yellow [facility] Creatine kinase [Enzymatic a ctivity/volume] in Serum or PlasmaOrdered By: Hernanedz Lares on 09-04-2022 CK [Catalytic activity/Vol] 72 U/L 22- [facility] Creatine kinase.MB [Mass/vol ume] in Serum or PlasmaOrdered By: Hernandez Lares on 09-04-2022 CK.MB [Mass/Vol] 0.7 ng/mL 0.6-6.3 [facility] Creatinine and Glomerular fi ltration rate.predicted panel (S/P/Bld)Ordered By: Hernandez Lares on 09-04-2022 Creatinine [Mass/Vol] 1.01 mg/dL 0.64-1.27 [facility] Eosinophils Auto (Bld) [#/Vo l]Ordered By: Hernandez Lares on 09-04-2022 Eosinophils (Bld) [#/Vol] 0.2 10*3/uL 0.0-0.45 [facility] Eosinophils/100 WBC Auto (Bl d)Ordered By: Hernandez Lares on 09-04-2022 Eosinophils/100 WBC (Bld) 2.5 % . [facility] Erythrocyte distribution wid th Auto (RBC) [Ratio]Ordered By: Hernandez Lares on 09-04-2022 Erythrocyte distribution width (RBC) [Ratio] 13.1 % 12.0-14.8 [facility] Estimated glomerular filtrat ion rate (GFR) non- AmericanOrdered By: Hernandez Lares on 09-04-2022 GFR/1.73 sq M.predicted among non-blacks MDRD (S/P/Bld) [Vol rate/Area] > 60 mL/Min [facility] Globulin Calc (S) [Mass/Vol] Ordered By: Hernandez Lares on 09-04-2022 Globulin (S) [Mass/Vol] 2.9 g/dL [facility] Hematocrit Auto (Bld) [Volum e fraction]Ordered By: Hernandez Lares on 09-04-2022 Hematocrit (Bld) [Volume fraction] 45.8 % 38.8-50.0 [facility] Hemoglobin [Mass/volume] in BloodOrdered By: Hernandez Lares on 09-04-2022 Hemoglobin (Bld) [Mass/Vol] 15.6 g/dL 13.0-17.0 [facility] Ketones Auto test strip (U) [Mass/Vol]Ordered By: Hernandez Lares on 09-04-2022 Ketones (U) [Mass/Vol] Trace Negative [facility] - UrinalysisOrder ed By: Hernandez Lares on 09-04-2022 Hyaline casts LM Ql (Urine sed) None seen [LPF] 0-8 [facility] Leukocytes [#/volume] correc pooja for nucleated erythrocytes in Blood by Automated counOrdered By: Hernandez Lares on 09-04-2022 WBC corrected for nucl RBC Auto (Bld) [#/Vol] 8.2 10*3/uL 4.1-10.5 [facility] Lymphocytes Auto (Bld) [#/Vo l]Ordered By: Hernandez Lares on 09-04-2022 Lymphocytes (Bld) [#/Vol] 2.2 10*3/uL 1.00-4.8 [facility] Lymphocytes/100 WBC Auto (Bl d)Ordered By: Hernandez Lares on 09-04-2022 Lymphocytes/100 WBC (Bld) 26.2 % . [facility] MCH Auto (RBC) [Entitic mass ]Ordered By: Hernandez Lares on 09-04-2022 MCH (RBC) [Entitic mass] 30.7 pg 27.5-35.2 [facility] MCHC Auto (RBC) [Mass/Vol]Or dered By: Hernandez Lares on 09-04-2022 MCHC (RBC) [Mass/Vol] 34.1 g/dL 32.5-35.6 [facility] MCV Auto (RBC) [Entitic vol] Ordered By: Hernandez Lares on 09-04-2022 MCV (RBC) [Entitic vol] 89.9 fL 83.5-101 [facility] Monocyte distribution width [Entitic volume] in Blood by AutomatedOrdered By: Hernandez aLres on 09-04-2022 Monocyte distribution width Auto (Bld) [Entitic vol] 16.89 % 0.00-20.00 [facility] Monocytes Auto (Bld) [#/Vol] Ordered By: Hernandez Lares on 09-04-2022 Monocytes (Bld) [#/Vol] 0.7 10*3/uL 0.0-0.8 [facility] Monocytes/100 WBC Auto (Bld) Ordered By: Hernandez Lares on 09-04-2022 Monocytes/100 WBC (Bld) 8.1 % . [facility] Neutrophils Auto (Bld) [#/Vo l]Ordered By: Hernandez Lares on 09-04-2022 Neutrophils (Bld) [#/Vol] 5.1 10*3/uL 1.8-7.7 [facility] Neutrophils/100 WBC Auto (Bl d)Ordered By: Hernandez Lares on 09-04-2022 Neutrophils/100 WBC (Bld) 62.5 % . [facility] Nitrite Test strip Ql (U)Ord ered By: Hernandez Lares on 09-04-2022 Nitrite Ql (U) Negative Negative [facility] No Panel InformationOrdered By: Hernandez Lares on 09-04-2022 Estimated GFR () > 60 mL/Min [facility] Comment on above: GFR estimated refere nce range: According to KDOQI guidelines, <60 ml/min/1.73m2 is sufficient to diagnose a patient with chronic kidney disease. Pharmacy Creatinine Clearance (Chem 116.51 [facility] Nucleated erythrocytes [Pres ence] in Blood by Automated countOrdered By: Hernandez Lares on 09-04-2022 Nucleated RBC Auto Ql (Bld) 0.1 /100{WBC} 0-0.5 [facility] Platelet mean volume Auto (B ld) [Entitic vol]Ordered By: Hernandez Lares on 09-04-2022 Platelet mean volume (Bld) [Entitic vol] 7.8 fL 6.6-10.1 [facility] Platelets Auto (Bld) [#/Vol] Ordered By: Hernandez Lares on 09-04-2022 Platelets (Bld) [#/Vol] 224 10*3/uL 150-450 [facility] Protein Auto test strip (U) [Mass/Vol]Ordered By: Hernandez Lares on 09-04-2022 Protein (U) [Mass/Vol] 100 mg/dL Negative [facility] Protein [Mass/volume] in Ser um or PlasmaOrdered By: Hernandez Lares on 09-04-2022 Protein [Mass/Vol] 6.5 g/dL 6.1-7.9 [facility] RBC Auto (Bld) [#/Vol]Ordere d By: Hernandez Lares on 09-04-2022 RBC (Bld) [#/Vol] 5.09 10*6/uL 3.90-5.60 [facility] Serum or plasma alanine storey otransferase measurement without P-5'-P (enzymatic activiOrdered By: Hernandez Lares on 09-04-2022 ALT No additional P-5'-P [Catalytic activity/Vol] 26 U/L 10-60 [facility] Serum or plasma albumin/glob ulin mass ratioOrdered By: Hernandez Lares on 09-04-2022 Albumin/Globulin [Mass ratio] 1.2 {ratio} [facility] Serum or plasma alkaline alexandro sphatase measurement (enzymatic activity/volume)Ordered By: Hernandez Lares on 09-04-2022 ALP [Catalytic activity/Vol] 85 U/L 32-92 [facility] Serum or plasma anion gap de terminationOrdered By: Hernandez Lares on 09-04-2022 Anion gap [Moles/Vol] 15.6 mmol/L 6.0-15.0 [facility] Serum or plasma calcium angie urement (mass/volume)Ordered By: Hernandez Lares on 09-04-2022 Calcium [Mass/Vol] 8.8 mg/dL 8.2-10.2 [facility] Serum or plasma chloride rocio surement (moles/volume)Ordered By: Hernandez Lares on 09-04-2022 Chloride [Moles/Vol] 101 mmol/L 95-114 [facility] Serum or plasma creatine kin ase MB (CKMB)/total creatine kinase (CK) ratio by calculaOrdered By: Hernandez Lares on 09-04-2022 CK.MB Calc [Catalytic fraction] 0.9 % 0.00-2.50 [facility] Serum or plasma glucose angie urement (mass/volume)Ordered By: Hernandez Lares on 09-04-2022 Glucose [Mass/Vol] 99 mg/dL 70-100 [facility] Comment on above: ADA recommended refe rence rangeRandom Glucose Reference Range is dependent on time and content of last meal. Glucose of more than 200 mg/dL in a nonstressed, ambulatory subject supports the diagnosis of Diabetes Mellitus. Serum or plasma potassium me asurement (moles/volume)Ordered By: Hernandez Lares on 09-04-2022 Potassium [Moles/Vol] 4.0 mmol/L 3.5-5.1 [facility] Serum or plasma sodium measu rement (moles/volume)Ordered By: Hernandez Lares on 09-04-2022 Sodium [Moles/Vol] 138 mmol/L 136-146 [facility] Serum or plasma total biliru bin measurement (mass/volume)Ordered By: Hernandez Lares on 09-04-2022 Bilirubin [Mass/Vol] 0.6 mg/dL 0.3-1.2 [facility] Serum or plasma total carbon dioxide measurement (moles/volume)Ordered By: Hernandez Lares on 09-04-2022 CO2 [Moles/Vol] 25.4 mmol/L 22.0-30.0 [facility] Serum or plasma urea nitroge n measurement (mass/volume)Ordered By: Hernandez Lares on 09-04-2022 Urea nitrogen [Mass/Vol] 13 mg/dL 9- [facility] Specific gravity Auto test s trip (U) [Rel density]Ordered By: Hernandez Lares on 09-04-2022 Specific gravity (U) [Rel density] 1.027 1.001-1.030 [facility] Spermatozoa detection in uri ne sediment by light microscopyOrdered By: Hernandez Lares on 09-04-2022 Spermat[place]oa LM Ql (Urine sed) 3-4 [HPF] 0-2 [facility] Squamous epithelial cells de tection in urine sediment by light microscopyOrdered By: Hernandez Lares on 09-04-2022 Epithelial cells.squamous LM Ql (Urine sed) None seen [HPF] 0-2 [facility] Troponin I.cardiac [Mass/vol ume] in Serum or Plasma by High sensitivity methodOrdered By: Hernandez Lares on 09-04-2022 Troponin I.cardiac High sensitivity method [Mass/Vol] < 3 pg/mL 0-20 [facility] Urine bacteria detection by automated methodOrdered By: Hernandez Lares on 09-04-2022 Bacteria Auto Ql (U) None seen None Seen [facility] Urine clarity by refractomet ry automatedOrdered By: Hernandez Lares on 09-04-2022 Clarity Refractometry automated (U) Clear Clear [facility] Urine glucose measurement by automated test strip (mass/volume)Ordered By: Hernandez Lares on 09-04-2022 Glucose Auto test strip (U) [Mass/Vol] Normal mg/dL Normal [facility] Urine hemoglobin detection b y automated test stripOrdered By: Hernandez Lares on 09-04-2022 Hemoglobin Auto test strip Ql (U) Negative Negative [facility] Urine leukocyte esterase det ection by automated test stripOrdered By: Hernandez Lares on 09-04-2022 Leukocyte esterase Auto test strip Ql (U) Negative Negative [facility] Urobilinogen Auto test strip (U) [Mass/Vol]Ordered By: Hernandez Lares on 09-04-2022 Urobilinogen (U) [Mass/Vol] Normal mg/dL Normal [facility] WBC Auto (Bld) [#/Vol]Ordere d By: Hernandez Lares on 09-04-2022 WBC (Bld) [#/Vol] 8.2 10*3/uL 4.1-10.5 [facility] pH Auto test strip (U)Ordere d By: Hernandez Lares on 09-04-2022 pH (U) 6.0 [pH] 5.0-9.0 [facility] CBC AUTO DIFFon 03-08-2022 BASO # 0.0 103/ul Normal 0.0-0.1 [facility] Comment on above: Performed By: #### C BC #### [facility] [address] [address] [address] Pablo Blanchard Basophils/100 WBC (Bld) 0.4 % Normal 0.2-2.0 [facility] Comment on above: Performed By: #### C BC #### [facility] [address] [address] [address] Pablo Blanchard EO # 0.2 103/ul Normal 0.0-0.7 [facility] Comment on above: Performed By: #### C BC #### [facility] [address] [address] [address] Pablo Blanchard Eosinophils/100 WBC (Bld) 2.5 % Normal 0.9-7.0 [facility] Comment on above: Performed By: #### C BC #### [facility] [address] [address] [address] Pablo Blanchard Erythrocyte distribution width (RBC) [Ratio] 12.2 % Normal 11.0-15.0 [facility] Comment on above: Performed By: #### C BC #### [facility] [address] [place] [address] Dr. Pablo Blanchard Hematocrit (Bld) [Volume fraction] 49.2 % Normal 42.0-54.0 [facility] Comment on above: Performed By: #### C BC #### [facility] [address] [address] [address] Pablo Blanchard Hemoglobin (Bld) [Mass/Vol] 16.1 g/dL Normal 14.0-18.0 [facility] Comment on above: Performed By: #### C BC #### [facility] [address] [place] [address] Dr. Pablo Blanchard IG # 0.03 10e3/ul Normal 0.00-0.03 [facility] Comment on above: Performed By: #### C BC #### [facility] [address] [place] [address] Dr. Pablo Blanchard IG % 0.4 % Normal 0.0-0.5 [facility] Comment on above: Performed By: #### C BC #### [facility] [address] [place] [address] Dr. Pablo Blanchard LYMPH # 1.5 103/ul Normal 1.2-3.8 [facility] Comment on above: Performed By: #### C BC #### [facility] [address] [place] [address] Dr. Pablo Blanchard Lymphocytes/100 WBC (Bld) 20.1 % Critically low 20.5-60.0 [facility] Comment on above: Performed By: #### C BC #### [facility] [address] [place] [address] Dr. Pablo Blanchard MANUAL DIFF REQ NO Normal [facility] Comment on above: Performed By: #### C BC #### [facility] [address] [place] [address] Dr. Pablo Blanchard MCH (RBC) [Entitic mass] 30.4 pg Normal 25.9-34.0 [facility] Comment on above: Performed By: #### C BC #### [facility] [address] [place] [address] Dr. Pablo Blanchard MCHC (RBC) [Mass/Vol] 32.7 g/dL Normal 29.9-35.2 [facility] Comment on above: Performed By: #### C BC #### [facility] [address] [place] [address] Dr. Pablo Blanchard MCV (RBC) [Entitic vol] 92.8 fL Normal 80.0-94.0 [facility] Comment on above: Performed By: #### C BC #### [facility] [address] [place] [address] Dr. Pablo Blanchard MONO # 0.6 103/ul Normal 0.3-0.8 [facility] Comment on above: Performed By: #### C BC #### [facility] [address] [place] [address] Dr. Pablo Blanchard Monocytes/100 WBC (Bld) 8.1 % Normal 1.7-12.0 [facility] Comment on above: Performed By: #### C BC #### [facility] [address] [place] [address] Dr. Pablo Blanchard NEUT # 5.1 103/ul Normal 1.4-6.5 [facility] Comment on above: Performed By: #### C BC #### [facility] [address] [place] [address] Dr. Pablo Blanchard Neutrophils/100 WBC (Bld) 68.5 % Normal 43.0-75.0 [facility] Comment on above: Performed By: #### C BC #### [facility] [address] [place] [address] Dr. Pablo Blanchard Platelet mean volume (Bld) [Entitic vol] 9.2 fL Critically low 9.5-13.5 [facility] Comment on above: Performed By: #### C BC #### [facility] [address] [place] [address] Dr. Pablo Blanchard PLT 231 103/ul Normal 150-450 [facility] Comment on above: Performed By: #### C BC #### [facility] [address] [place] [address] Dr. Pablo Blanchard RBC 5.30 106/ul Normal 4.70-6.10 [facility] Comment on above: Performed By: #### C BC #### [facility] [address] [place] [address] Dr. Pablo Blanchard WBC 7.5 103/ul Normal 4.0-11.0 [facility] Comment on above: Performed By: #### C BC #### [facility] [address] [place] [address] Dr. Pablo Blanchard GLYCOHEMOGLOBIN A1Con 2021 ADA RECOMMENDATION SEE BELOW Normal [facility] Comment on above: Result Comment: ADA RECOMMENDED LIMIT 4.0 - 6.0 ADA THERAPEUTIC TARGET < 7.0 ACTION SUGGESTED > 7.0 Performed By: #### A 1C #### [facility] [address] [place] [address] Dr. Pablo Blanchard Glucose [Mass/Vol] 97 mg/dL Normal [facility] Comment on above: Performed By: #### A 1C #### [facility] [address] [address] [address] Pablo Blanchard HbA1c (Bld) [Mass fraction] 5.0 % Normal 4.5-6.2 [facility] Comment on above: Performed By: #### A 1C #### [facility] [address] [place] [address] Dr. Pablo Blanchard LIPID PROFILEon 03-08-2022 CHOL-HDL RATIO NORM SEE BELOW Normal [facility] Comment on above: Result Comment: 3.3 - 4.4 LOW RISK 4.4 - 7.1 AVERAGE RISK 7.1 - 11.0 MODERATE RISK >11.0 HIGH RISK Performed By: #### L IPID, CMP #### [facility] [address] [place] [address] Dr. Pablo Blanchard Cholesterol [Mass/Vol] 205 mg/dL Critically high <=200 [facility] Comment on above: Performed By: #### L IPID, CMP #### [facility] [address] [place] [address] Dr. Pablo Blanchard Cholesterol in HDL [Mass/Vol] 40 mg/dL Normal 40-60 [facility] Comment on above: Performed By: #### L IPID, CMP #### [facility] [address] [place] [address] Dr. Pablo Blanchard Cholesterol in LDL [Mass/Vol] 150.6 mg/dL Normal [facility] Comment on above: Performed By: #### L IPID, CMP #### [facility] [address] [place] [address] Dr. Pablo Blanchard Cholesterol.total/Chol esterol in HDL [Mass ratio] 5.1 {ratio} Normal [facility] Comment on above: Performed By: #### L IPID, CMP #### [facility] [address] [address] [address] Pablo Blanchard HDL NORMAL > or = 60 mg/dl - LO W CARDIOVASCULAR RISK <40 mg/dl - HIGH CARDIOVASCULAR RISK Normal [facility] Comment on above: Performed By: #### L IPID, CMP #### [facility] [address] [address] [address] Pablo Blanchard LDL CALC NORMAL SEE BELOW Normal [facility] Comment on above: Result Comment: <100 mg/dl OPTIMAL 100 - 129 mg/dl NEAR OR ABOVE OPTIMAL 130 - 159 mg/dl BORDERLINE HIGH 160 - 189 mg/dl HIGH >190 mg/dl VERY HIGH Performed By: #### L IPID, CMP #### [facility] [address] [place] [address] Dr. Pablo Blanchard Triglyceride [Mass/Vol] 72 mg/dL Normal <=150 [facility] Comment on above: Performed By: #### L IPID, CMP #### [facility] [address] [place] [address] Dr. Pablo Blanchard VLDL CALC 14.4 mg/dL Normal [facility] Comment on above: Performed By: #### L IPID, CMP #### [facility] [address] [place] [address] Dr. Pablo Blanchard PROF 14(COMP METB)on 022 Albumin [Mass/Vol] 3.3 g/dL Critically low 3.4-5.0 [facility] Comment on above: Performed By: #### L IPID, CMP #### [facility] [address] [address] [address] Pablo Blanchard Albumin/Globulin [Mass ratio] 1.0 {ratio} Normal [facility] Comment on above: Performed By: #### L IPID, CMP #### [facility] [address] [place] [address] Dr. Pablo Blanchard ALP [Catalytic activity/Vol] 98 U/L Normal 46-116 [facility] Comment on above: Performed By: #### L IPID, CMP #### [facility] [address] [address] [address] Pablo Blanchard ALT [Catalytic activity/Vol] 33 U/L Normal 16-63 [facility] Comment on above: Performed By: #### L IPID, CMP #### [facility] [address] [address] [address] Pablo Blanchard Anion gap [Moles/Vol] 9.4 mmol/L Normal [facility] Comment on above: Performed By: #### L IPID, CMP #### [facility] [address] [address] [address] Pablo Blanchard AST [Catalytic activity/Vol] 16 U/L Normal 15-37 [facility] Comment on above: Performed By: #### L IPID, CMP #### [facility] [address] [address] [address] Pablo Blanchard Bilirubin [Mass/Vol] 0.7 mg/dL Normal 0.2-1.0 [facility] Comment on above: Performed By: #### L IPID, CMP #### [facility] [address] [address] [address] Pablo Blanchard Calcium [Mass/Vol] 8.0 mg/dL Critically low 8.5-10.1 Th e [facility] Comment on above: Performed By: #### L IPID, CMP #### [facility] [address] [address] [address] Pablo Blanchard Chloride [Moles/Vol] 104 mmol/L Normal 98-107 [facility] Comment on above: Performed By: #### L IPID, CMP #### [facility] [address] [address] [address] Pablo Blanchard CO2 [Moles/Vol] 30.5 mmol/L Normal 21.0-32.0 [facility] Comment on above: Performed By: #### L IPID, CMP #### [facility] [address] [address] [address] Pablo Blanchard Creatinine [Mass/Vol] 1.02 mg/dL Normal 0.70-1.30 [facility] Comment on above: Performed By: #### L IPID, CMP #### [facility] [address] [address] [address] Pablo Blanchard EGFR-AF PAKISTANI >60 Normal >=60 [facility] Comment on above: Performed By: #### L IPID, CMP #### [facility] [address] [address] [address] Pablo Blanchard EGFR-NON AF PAKISTANI >60 Normal >=60 [facility] Comment on above: Performed By: #### L IPID, CMP #### [facility] [address] [address] [address] Pablo Blanchard Globulin (S) [Mass/Vol] 3.4 g/dL Normal [facility] Comment on above: Performed By: #### L IPID, CMP #### [facility] [address] [address] [address] Pablo Blanchard Glucose [Mass/Vol] 108 mg/dL Critically high 74-106 [facility] Comment on above: Performed By: #### L IPID, CMP #### [facility] [address] [address] [address] Pablo Blanchard Potassium [Moles/Vol] 3.9 mmol/L Normal 3.5-5.1 [facility] Comment on above: Performed By: #### L IPID, CMP #### [facility] [address] [address] [address] Pablo Blanchard Protein [Mass/Vol] 6.7 g/dL Normal 6.4-8.2 [facility] Comment on above: Performed By: #### L IPID, CMP #### [facility] [address] [address] [address] Pablo Blanchard Sodium [Moles/Vol] 140 mmol/L Normal 136-145 [facility] Comment on above: Performed By: #### L IPID, CMP #### [facility] [address] [address] [address] Pablo Blanchard Urea nitrogen [Mass/Vol] 11.0 mg/dL Normal 7.0-18.0 [facility] Comment on above: Performed By: #### L IPID, CMP #### [facility] [address] [place] [address] Dr. Pablo Blanchard Urea nitrogen/Creatinine [Mass ratio] 10.8 mg/mg Normal [facility] Comment on above: Performed By: #### L IPID, CMP #### [facility] [address] [place] [address] Dr. Pablo Blanchard UA RANDOM W/MICROSCOPICon BACTERIA NONE SEEN Normal NONE SEEN [facility] Comment on above: Performed By: #### U AMIC #### [facility] [address] [place] [address] Dr. Pablo Blanchard Bilirubin Ql (U) Negative Normal NEGATIVE [facility] Comment on above: Performed By: #### U AMIC #### [facility] [address] [place] [address] Dr. Pablo Blanchard CAST NONE SEEN Normal NONE SEEN [facility] Comment on above: Performed By: #### U AMIC #### [facility] [address] [place] [address] Dr. Pablo Blanchard Clarity (U) CLEAR Normal CLEAR [facility] Comment on above: Performed By: #### U AMIC #### [facility] [address] [place] [address] Dr. Pablo Blanchard Color (U) YELLOW Normal YELLOW [facility] Comment on above: Performed By: #### U AMIC #### [facility] [address] [place] [address] Dr. Pablo Blanchard Crystals LM Nom (Urine sed) NONE SEEN Normal NONE SEEN [facility] Comment on above: Performed By: #### U AMIC #### [facility] [address] [place] [address] Dr. Pablo Blanchard Epithelial cells LM Ql (Urine sed) FEW Abnormal NONE SEEN /RARE [facility] Comment on above: Performed By: #### U AMIC #### [facility] [address] [place] [address] Dr. Pablo Blanchard Glucose Ql (U) Negative Normal NEGATIVE [facility] Comment on above: Performed By: #### U AMIC #### [facility] [address] [address] [address] Pablo Blanchard Hemoglobin Ql (U) Negative Normal NEGATIVE [facility] Comment on above: Performed By: #### U AMIC #### [facility] [address] [address] [address] Pablo Blanchard Ketones Ql (U) Negative Normal NEGATIVE [facility] Comment on above: Performed By: #### U AMIC #### [facility] [address] [address] [address] aPblo Blanchard LEUKOCYTES Negative Normal NEGATIVE [facility] Comment on above: Performed By: #### U AMIC #### [facility] [address] [place] [address] Dr. Pablo Blanchard MUCOUS NONE SEEN Normal NONE SEEN [facility] Comment on above: Performed By: #### U AMIC #### [facility] [address] [place] [address] Dr. Pablo Blanchard Nitrite Ql (U) Negative Normal NEGATIVE [facility] Comment on above: Performed By: #### U AMIC #### [facility] [address] [place] [address] Dr. Pablo Blanchard pH (U) 6.0 [pH] Normal 5-9 [facility] Comment on above: Performed By: #### U AMIC #### [facility] [address] [place] [address] Dr. Pablo Blanchard RBC 0-2 Normal 0-2 [facility] Comment on above: Performed By: #### U AMIC #### [facility] [address] [place] [address] Dr. Palbo Blanchard SPEC GRAVITY >=1.030 Abnormal 1.005-<=1.0 25 [facility] Comment on above: Performed By: #### U AMIC #### [facility] [address] [place] [address] Dr. Pablo Blanchard UA PROTEIN Negative Normal NEGATIVE/ TRACE [facility] Comment on above: Performed By: #### U AMIC #### [facility] [address] [address] [address] Pablo Blanchard Urobilinogen Qn (U) 1.0 {Kuldeep'U}/dL Normal 0.2 - 1. 0 [facility] Comment on above: Performed By: #### U AMIC #### [facility] [address] [place], [place] [address] Dr. Pablo Blanchard WBC NONE SEEN Normal NONE SEEN [facility] Comment on above: Performed By: #### U AMIC #### [facility] [address] [place], [place] [id number] Dr. Pablo Blanchard Covid-19 PCR ([facility])on 10-14 SARS-CoV-2 (COVID-19) RNA NANCIE+probe Ql (Unsp spec) Not detected Normal NOT DETECTED [facility] Comment on above: Result Comment: This test is not yet approved or cleared by the [place] FDA. When there are no FDA-approved or cleared tests available, and other criteria are met, FDA can make tests available under an emergency access mechanism called an Emergency Use Authorization (EUA). The EUA for this test is supported by the [employer] Tender of Health and Human Service's (HHS's) declaration [...] SARS-CoV-2. Performed By: #### C VDTBH #### [facility] [address] [place], [place] [id number] Dr. Pablo Blanchard CKon 02-04-2018 Creatine kinase (CK) 57 Int._Unit/L Normal 14-[address] [facility] Comment on above: Performed By: #### 2 [id number] ####[facility] [id number] [place] [address] CKMBon 02-04-2018 CREATINE KINASE.MB:CCNC:PT:SER/ PLAS:QN:EIA 0.5 ng/mL Normal 0.3-4.[address] [facility] Comment on above: Performed By: #### 2 [id number] ####[facility] [id number] [place] [address] CREATINE KINASE.MB:CCNC:PT:SER/ PLAS:QN:EIA 0.8 ng/mL Normal 0.3-4.[address] [facility] Comment on above: Performed By: #### 2 [id number], [id number] ####[address] [id number] CREATINE KINASE.MB:CCNC:PT:SER/ PLAS:QN:EIA 0.7 ng/mL Normal 0.3-4.[address] [facility] Comment on above: Performed By: #### 2 [id number], [id number] ####[address] [address] CMPon 02-04-2018 Albumin 1.2 g/dL Normal 1.1-2.[address] [facility] Comment on above: Performed By: #### 2 [id number], [id number] ####[address] [address] Albumin 3.6 g/dL Normal 3.3-5.[address] [facility] Comment on above: Performed By: #### 2 [id number], [id number] ####[facility] [address] [place] [address] Alkaline phosphatase (ALP) 71 Int._Unit/L Normal 21-[address] [facility] Comment on above: Performed By: #### 2 [id number], [id number] ####[facility] [address] [place] [address] ALT Without P-5'-P enzyme act/vol 29 Int._Unit/L Normal 6-[address] [facility] Comment on above: Performed By: #### 2 [id number], [id number] ####[facility] [address] [place] [address] Aspartate aminotransferase (AST) 29 Int._Unit/L Normal 5-[address] [facility] Comment on above: Performed By: #### 2 749284, [id number] ####[facility] [address] [place] [address] Bilirubin (total) 0.5 mg/dL Normal 0.0-1.[address] [facility] Comment on above: Performed By: #### 2 [id number], [id number] ####[facility] [address] [place] [address] BUN/Creatinine Ratio 16 No Units Normal 10-20 [facility] Comment on above: Performed By: #### 2 [id number], [id number] ####[facility] [address] [place] [address] Creatinine 1.0 mg/dL Normal 0.5-1.[address] [facility] Comment on above: Performed By: #### 2 [id number], [id number] ####[facility] [address] [place] [address] Globulin 2.9 g/dL Normal 1.4-4.[address] [facility] Comment on above: Performed By: #### 2 453676, [id number] ####[facility] [address] [place] [address] Protein 6.5 g/dL Normal 6.0-7.[address] [facility] Comment on above: Performed By: #### 2 678949, [id number] ####[facility] [address] [place] [address] Urea nitrogen 16 mg/dL Normal 5-[address] [facility] Comment on above: Performed By: #### 2 318617, [id number] ####[facility] [address] [place] [address] Anion gap 14 mmol/L Normal 6-[address] [facility] Comment on above: Performed By: #### 2 486523, [id number] ####[facility] [address] [place] [address] Calcium 8.8 mg/dL Low 8.9-11.[address] [facility] Comment on above: Performed By: #### 2 783901, [id number] ####[facility] [address] [place] [address] Chloride 106 mmol/L Normal 101-[address] [facility] Comment on above: Performed By: #### 2 617070, [id number] ####[facility] [address] [facility] [place] [address] CO2 23 mmol/L Normal 21-[address] [facility] Comment on above: Performed By: #### 2 381798, [id number] ####[facility] [address] [facility] [place] [address] Glucose mass conc 86 mg/dL Normal 55-[address] [facility] Comment on above: Result Comment: If t his glucose result represents a fasting glucose, interpretation should refer to the following reference range: 55-99 mg/dL Performed By: #### 2 803810, [id number] ####[facility] [address] [facility] [place] [address] Potassium molar conc 3.6 mmol/L Normal 3.5-5.3 [facility] Comment on above: Performed By: #### 2 916369, [id number] ####[facility] [address] [facility] [place] [address] Sodium 139 mmol/L Normal 135-[address] [facility] Comment on above: Performed By: #### 2 944902, [id number] ####[facility] [address] [place] [address] Myoglobinon 02-04-2018 Myoglobin 18 ng/mL Normal <=[address] [facility] Comment on above: Performed By: #### 2 557289, [id number], [id number], 0931110, [id number], [id number] ####[facility] [address] [place] [address] Myoglobin 42 ng/mL Normal <=[address] [facility] Comment on above: Performed By: #### 2 543367, 8026057, [id number] ####[facility] [address] [place] [address] Myoglobin 17 ng/mL Normal <=[address] [facility] Comment on above: Performed By: #### 2 841424, 8993118, [id number] ####[facility] [address] [place] [address] T4 Totalon 02-04-2018 Thyroxine (T4) 9.1 microgram/dL Normal 4.6-9.1 [facility] Comment on above: Performed By: #### 2 272287, [id number] ####[address] [place] [address] TSHon 02-04-2018 Thyroid stimulating hormone (TSH) 5.61 mcIU/mL High 0.34-5.[address] [facility] Comment on above: Performed By: #### 2 251676, [id number] ####[facility] [address] [place] [address] Troponinon 02-04-2018 Troponin I.cardiac mass conc ng/mL Normal <=0.[address] [facility] Comment on above: Result Comment: New Troponin Assay 11/26/13ROC AL Cutoff value > or = 0.03 ng/mL in conjunction with clinical conditions of myocardial infarction.([email or web address]/[email or web address]) Performed By: #### 2 050327, 2247495, [id number], 0636611, [id number], [id number] ####[facility] [address] [place] [address] Troponin I.cardiac mass conc ng/mL Normal <=0.[address] [facility] Comment on above: Result Comment: New Troponin Assay 11/26/13ROC AL Cutoff value > or = 0.03 ng/mL in conjunction with clinical conditions of myocardial infarction.([email or web address]/guidelines) Performed By: #### 2 857261, 0859655, [id number] ####[facility] [address] [place] [address] Troponin I.cardiac mass conc ng/mL Normal <=0.[address] [facility] Comment on above: Result Comment: New Troponin Assay 11/26/13ROC AL Cutoff value > or = 0.03 ng/mL in conjunction with clinical conditions of myocardial infarction.([email or web address]/[email or web address]) Performed By: #### 2 131945, 1372129, [id number] ####[facility] [address] [place] [address] eGFRon 02-04-2018 eGFR (black) mL/min/{1.73_m2} Normal >=[address] [facility] Comment on above: Order Comment: Order added by Discern Expert. Result Comment: eGFR is race adjusted. AA=. Performed By: #### 2 159089, [id number] ####[address] [place] [address] eGFR (non-black) mL/min/{1.73_m2} Normal >=59 [facility] Comment on above: Order Comment: Order added by Discern Expert. Result Comment: Glass Enamel Mixer sofi kidney disease could be indicated at eGFR's of less than 60 mL/min/1.73m2. Kidney failure is indicated at less than 15 mL/min/1.73m2. Performed By: #### 2 624203, [id number] ####[facility] [address] [place] [address] Vital Signs Date Time Vital Sign Value Performing Clinician Facility 03-30-2024 08:08-0400 Body height 186.7 cm Brooklynn Yeager ZINC CHLORIDE OPERATOR Work Phone: [facility] 03-30-2024 08:08-0400 Body mass index (BMI) [Ratio] 32.82 kg/m2 Brooklynn Yeager ZINC CHLORIDE OPERATOR Work Phone: [facility] 03-30-2024 08:08-0400 Body temperature 98.2 [degF] Brooklynn Yaeger ZINC CHLORIDE OPERATOR Work Phone: [facility] 03-30-2024 08:08-0400 Body weight 114.4 kg Brooklynn Aichholz ZINC CHLORIDE OPERATOR Work Phone: [facility] 03-30-2024 08:08-0400 Diastolic blood pressure 80 mm[Hg] Brooklynn Aichholz ZINC CHLORIDE OPERATOR Work Phone: [facility] 03-30-2024 08:08-0400 Heart rate 79 /min Brooklynn Aichholz ZINC CHLORIDE OPERATOR Work Phone: [facility] 03-30-2024 08:08-0400 Respiratory rate 18 /min Brooklynn Aichholz ZINC CHLORIDE OPERATOR Work Phone: [facility] 03-30-2024 08:08-0400 SaO2% (BldA) [Mass fraction] 97 % Brooklynn Aichholz ZINC CHLORIDE OPERATOR Work Phone: [facility] 03-30-2024 08:08-0400 Systolic blood pressure 110 mm[Hg] Brooklynn Aichholz ZINC CHLORIDE OPERATOR Work Phone: [facility] 12-01-2023 09:35-0400 Diastolic blood pressure 65 mm[Hg] Brooklynn Aichholz Work Phone: [facility] 12-01-2023 09:35-0400 Heart rate 71 /min Brooklynn Aichholz Work Phone: [facility] 12-01-2023 09:35-0400 Respiratory rate 18 /min Brooklynn Aichholz Work Phone: [facility] 12-01-2023 09:35-0400 SaO2% (BldA) [Mass fraction] 97 % Rbooklynn Aichholz Work Phone: [facility] 12-01-2023 09:35-0400 Systolic blood pressure 117 mm[Hg] Brooklynn Aichholz Work Phone: [facility] 12-01-2023 00:25-0400 Body height 190.5 cm Brooklynn Aichholz Work Phone: [facility] 12-01-2023 00:25-0400 Body temperature 98.4 [degF] Brooklynn Yeager Work Phone: [facility] 12-01-2023 00:25-0400 Body weight 113.39 kg Brooklynn Shobha Work Phone: [facility] 10-17-2023 09:02-0400 Body height 188 cm Pmh 1 [facility] 10-17-2023 09:02-0400 Body mass index (BMI) [Ratio] 32.1 kg/m2 Pmh 1 [facility] 10-17-2023 09:02-0400 Body weight 113.4 kg Pmh 1 [facility] 09-04-2023 14:11-0500 Body height 188 cm Lida Suh MD Work Phone: [facility] 09-04-2023 14:11-0500 Body mass index (BMI) [Ratio] 31.46 kg/m2 Lida Suh MD Work Phone: [facility] 09-04-2023 14:11-0500 Body weight 111.13 kg Lida Suh MD Work Phone: [facility] 09-04-2023 14:11-0500 Diastolic blood pressure 75 mm[Hg] Lida Suh MD Work Phone: [facility] 09-04-2023 14:11-0500 Heart rate 76 /min Lida Suh MD Work Phone: [facility] 09-04-2023 14:11-0500 Systolic blood pressure 116 mm[Hg] Lida Suh MD Work Phone: [facility] 10-22-2022 15:54-0400 Diastolic blood pressure 46 mm[Hg] Brooklynn Yeager Work Phone: [facility] 10-22-2022 15:54-0400 Heart rate 69 /min Brooklynn Shobha Work Phone: [facility] 10-22-2022 15:54-0400 Respiratory rate 16 /min Brooklynn Aichholz Work Phone: [facility] 10-22-2022 15:54-0400 SaO2% (BldA) [Mass fraction] 99 % Brooklynn Aichholz Work Phone: [facility] 10-22-2022 15:54-0400 Systolic blood pressure 97 mm[Hg] Brooklynn Aichholz Work Phone: [facility] 10-22-2022 14:07-0400 Body height 187.96 cm Brooklynn Aichholz Work Phone: [facility] 10-22-2022 14:07-0400 Body temperature 97.2 [degF] Brooklynn Aichholz Work Phone: [facility] 10-22-2022 14:07-0400 Body weight 113.39 kg Brooklynn Aichholz Work Phone: [facility] 09-04-2022 23:07-0500 Heart rate 73 /min Brooklynn Aichholz Work Phone: [facility] 09-04-2022 23:07-0500 Respiratory rate 18 /min Brooklynn Aichholz Work Phone: [facility] 09-04-2022 23:07-0500 SaO2% (BldA) [Mass fraction] 99 % Brooklynn Aichholz Work Phone: [facility] 09-04-2022 22:55-0500 Body temperature 97.7 [degF] Brooklynn Aichholz Work Phone: [facility] 09-04-2022 22:55-0500 Diastolic blood pressure 84 mm[Hg] Brooklynn Aichholz Work Phone: [facility] 09-04-2022 22:55-0500 Systolic blood pressure 123 mm[Hg] Brooklynn Aichholz Work Phone: [facility] 09-04-2022 22:0500 Body height 189.23 cm Brooklynn Yeager Work Phone: [facility] 09-04-2022 22: Body weight 117.4 kg Brooklynn Shobha Work Phone: [facility] Encounters Encounter Date Encounter Type Care Provider Facility Start: 06-17-2024 End: 06-17-2024 Telephone encounter Lida Suh MD Work Phone: [facility] Start: 06-17-2024 End: 06-17-2024 Evaluation and management of inpatient LIDA SUH [facility] Start: 06-16-2024 End: 06-16-2024 [facility] Start: 05-22-2024 End: 05-22-2024 Orders Only Lida Suh MD Work Phone: [facility] Comment on above: Malignant neoplasm o f overlapping sites of bladder (CMS-HCC) (Primary Dx) Start: 04-15-2024 End: 04-15-2024 Refill Brooklynn Yeager ZINC CHLORIDE OPERATOR Work Phone: [facility] Comment on above: Mixed hyperlipidemia (CMS/HCC); Bipolar affective disorder, remission status unspecified (CMS/HCC) Start: 03-30-2024 End: 03-30-2024 Bamboo flowsheet Brooklynn Yeager ZINC CHLORIDE OPERATOR Work Phone: [facility] Start: 03-30-2024 End: 03-30-2024 Bamboo flowsheet Brooklynn Yeager ZINC CHLORIDE OPERATOR Work Phone: [facility] Start: 03-30-2024 End: 03-30-2024 Office outpatient visit 25 minutes Brooklynn Yeager ZINC CHLORIDE OPERATOR Work Phone: [facility] Comment on above: Bipolar affective di sorder, remission status unspecified (CMS/HCC) (Primary Dx); Malignant neoplasm of overlapping sites of bladder (CMS/HCC); Tobacco user; Lump of skin; Contusion of scalp, initial encounter; Mixed hyperlipidemia (CMS/HCC) Start: 03-30-2024 End: 03-30-2024 ambulatory BROOKLYNN SHOBHA Not Available Start: 03-18-2024 End: 03-18-2024 Evaluation and management of inpatient [facility] Start: 03-17-2024 End: 03-17-2024 ambulatory BROOKLYNN Joshi [facility] Start: 03-09-2024 End: 03-09-2024 ambulatory [facility] Start: 01-29-2024 End: 01-29-2024 ambulatory [facility] Start: 12-02-2023 End: 12-02-2023 ambulatory BROOKLYNN Joshi [facility] Start: 12-01-2023 End: 12-02-2023 Evaluation and management of inpatient JOSE GARIBAY [facility] Start: 12-01-2023 End: 12-01-2023 Emergency department patient visit Brooklynn Adi Yeager Facility:[facility] Start: 12-01-2023 End: 12-01-2023 Emergency department patient visit Brooklynn Shobha Work Phone: [facility] Work Phone: Start: 11-29-2023 End: 11-29-2023 Emergency department [facility] Start: 11-22-2023 End: 11-22-2023 ambulatory [facility] Start: 11-14-2023 End: 11-14-2023 ambulatory [facility] Start: 11-13-2023 End: 11-13-2023 ambulatory [facility] Start: 11-13-2023 End: 11-13-2023 ambulatory [facility] Start: 10-30-2023 End: 10-30-2023 Evaluation and management of inpatient EFE HENDERSON [facility] Start: 10-30-2023 End: 10-30-2023 Evaluation and management of inpatient [facility] Start: 10-17-2023 End: 10-17-2023 Patient encounter procedure [facility] Pre-Admission Testing 1 [facility] - Pre Admit Start: 10-17-2023 End: 10-17-2023 ambulatory [facility] Start: 09-27-2023 End: 09-27-2023 ambulatory [facility] Start: 09-26-2023 End: 09-26-2023 ambulatory BROOKLYNN YEAGER Not Available Start: 09-04-2023 Telephone encounter Lida Suh MD Work Phone: [facility] Start: 09-04-2023 End: 09-04-2023 Office consultation new/estab patient 60 min Lida Suh MD Work Phone: [facility] Comment on above: Elevated PSA (Primar y Dx); Hematuria, microscopic Start: 09-04-2023 End: 09-04-2023 ambulatory [facility] Start: 09-04-2023 End: 09-04-2023 ambulatory [facility] Start: 08-27-2023 Refill Brooklynn Yeager ZINC CHLORIDE OPERATOR Work Phone: [facility] Comment on above: Mixed hyperlipidemia (CMS/HCC) (Primary Dx) Start: 08-21-2023 Telephone encounter Brooklynn martinez ZINC CHLORIDE OPERATOR Work Phone: [facility] Start: 07-22-2023 End: 07-22-2023 ambulatory BROOKLYNN YEAGER Not Available Start: 10-22-2022 End: 10-22-2022 Admission to same day surgery center Brooklynn Yeager Work Phone: [facility] [place] Start: 10-22-2022 End: 10-22-2022 ambulatory Brooklynn Yeager Work Phone: [facility] Work Phone: Start: 10-03-2022 End: 10-03-2022 ambulatory Brooklynn Yeager Work Phone: [facility] Work Phone: Start: 10-03-2022 End: 10-03-2022 Departed Referred Brooklynn Yeager Work Phone: [facility] [place] Work Phone: Start: 09-18-2022 End: 09-19-2022 ambulatory DOUBLER HELPER BROOKLYNN YEAGER Facility:[facility] Start: 09-04-2022 End: 09-05-2022 Emergency department patient visit Brooklynn Yeager Work Phone: [facility] Work Phone: Start: 03-08-2022 End: 03-09-2022 ambulatory DOUBLER HELPER BROOKLYNN YEAGER Facility:[facility] Start: 11-03-2021 End: 11-03-2021 ambulatory DOUBLER HELPER BROOKLYNN YEAGER Facility:[facility] Start: 02-04-2018 Patient encounter KINJAL CHEW Facil ity:[facility] Start: 02-03-2018 Patient encounter KINJAL CHEW Facil ity:[facility] Procedures Date Procedure Procedure Detail Performing Clinician Start: 12-01-2023 Adult depression scr eening assessment Lida Suh MD Work Phone: Start: 11-13-2023 Follow-up visit Follow-up LIDA SUH Start: 10-22-2022 Excision of cyst Brooklynn Orourke peg Work Phone: Start: 10-03-2022 Colonoscopy Brooklynn Gabbie martinez ZINC CHLORIDE OPERATOR Work Phone: Start: 09-04-2022 Plain X-ray abdomen Tawny orourke Shobha Work Phone: Start: 09-04-2022 SARS-CoV-2, Influenz a & RSV (PCR) Brooklynn Shobha Work Phone: Start: 03-08-2022 PSA screening 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 Pablo Blanchard Plan of Treatment Date Care Activity Detail Author Start: 10-03-2032 Screening for malign ant neoplasm of colon [facility] Start: 06-17-2025 Tobacco Screening Tobacco Screening [facility] Start: 03-18-2025 Tobacco Screening Tobacco Screening [facility] Start: 03-17-2025 Adult BMI Screening Adult BMI Screen ing [facility] Start: 11-30-2024 Depression Screening Depression Scre ening [facility] Start: 10-16-2024 Adult BMI Screening Adult BMI Screen ing [facility] Start: 10-16-2024 Tobacco Screening Tobacco Screening [facility] Start: 09-04-2024 Adult BMI Screening Adult BMI Screen ing [facility] Start: 09-04-2024 Tobacco Screening Tobacco Screening [facility] Start: 08-19-2024 End: 08-19-2024 Patient encounter procedure 08/19/2024 3:45 PM EST Office Visit [facility] [address] [place] [phone] Lida Suh MD [address] [place] [address] [facility] Start: 07-30-2024 End: 07-30-2024 Patient encounter procedure 07/30/2024 8:40 AM EST Office Visit [facility] [address] [place] [address] Brooklynn Yeager NP [address] [place] [phone] [facility] Start: 06-17-2024 End: 06-17-2024 Admission to same day surgery center 06/17/2024 11:30 AM EST - 06/17/2024 12:00 PM EST Surgery [facility] [address] [place] [phone] Lida Suh MD [address] [place] [address] CYSTOSCOPY [32030 (CPT )] [facility] Comment on above: CYSTOSCOPY [69404 (C PT )] Start: 06-17-2024 End: 06-17-2024 Cystourethroscopy [facility] Start: 06-17-2024 Subsequent hospital visit by physician 06/17/2024 11:30 AM EST Hospital Encounter [facility] [address] [place] [phone] Lida Suh MD [address] [place] [id number] [facility] Start: 06-16-2024 End: 06-16-2024 ambulatory 06/16/2024 3:40 PM EST Support Visit [facility] - Pre Admit [address] [place] [phone] [facility] - Pre Admit Start: 06-08-2024 End: 06-08-2024 Patient encounter procedure 06/08/2024 2:45 PM EST Office Visit [facility] [address] [place] [address] [place] [address] [place] [phone] Lida Suh MD [address] [place] [address] [facility] Start: 03-30-2024 End: 03-30-2024 Patient encounter procedure 03/30/2024 9:00 AM EDT Office Visit [facility] [address] [facility] [place] [phone] Brooklynn Yeager, ROSA [address] [facility] [place] [address] Arrived [facility] Comment on above: Arrived Start: 03-15-2024 COVID-19 Vaccine ( season) COVID-19 Vaccine ( season) [facility] Start: 03-15-2024 Influenza vaccination Influenza Vacc ine [facility] Start: 12-01-2023 Bacteria identified in Urine by Culture Urine Culture [facility] Start: 11-04-2023 End: 11-04-2023 Patient encounter procedure [facility] Start: 10-30-2023 End: 10-30-2023 Admission to same day surgery center 10/30/2023 9:30 AM EDT - 10/30/2023 10:30 AM EDT Surgery [facility] Surgery [address] [place] [phone] Lida Suh MD [address] [place] [address] CYSTOSCOPY [69965 (CPT )] [facility] Comment on above: CYSTOSCOPY [41440 (C PT )] Start: 10-30-2023 End: 10-30-2023 Cysto bladder w/ureteral catheterization CYSTOSCOPY RETROGRADE PYELOGRAM Hematuria, microscopic 10/30/2023 9:30 AM EDT [facility] Start: 10-30-2023 End: 10-30-2023 CYSTOSCOPY TRANSURETHRAL RESECTION BLADDER TUMOR CYSTOSCOPY TRANSURETHRAL RESECTION BLADDER TUMOR Hematuria, microscopic 10/30/2023 9:30 AM EDT [facility] Start: 10-30-2023 End: 10-30-2023 Cystourethroscopy CYSTOSCOPY Hematuria, microscopic 10/30/2023 9:30 AM EDT [facility] Start: 10-30-2023 End: 10-30-2023 Cystourethroscopy with biopsy CYSTOSCOPY BIOPSY BLADDER Hematuria, microscopic 10/30/2023 9:30 AM EDT [facility] Start: 10-30-2023 Subsequent hospital visit by physician 10/30/2023 9:30 AM EDT Hospital Encounter [facility] [address] [place] [phone] Lida Suh MD [facility] [place] [address] [facility] Start: 10-22-2023 End: 09-03-2024 Prostatic specific antigen, diagnostic Prostatic specific antigen, diagnostic Lab Routine Elevated PSA Expected: 10/22/2023, Expires: 09/03/2024 [facility] Comment on above: Expected: 10/22/2023 , Expires: 09/03/2024 Start: 09-26-2023 End: 09-26-2023 Patient encounter procedure 09/26/2023 9:00 AM EDT Office Visit [facility] [address] [place] [phone] Brooklynn Yeager NP [address] [place] [phone] [facility] Start: 09-04-2023 End: 09-04-2024 CT Kidney and Ureter and Urinary bladder 3D post processing WO and W contrast IV CT urogram Imaging Routine Hematuria, microscopic Expected: 09/04/2023, Expires: 09/04/2024 [facility] Work Phone: Comment on above: Expected: 09/04/2023 , Expires: 09/04/2024 Start: 03-15-2023 COVID-19 Vaccine () COVID-19 Vaccine () [facility] Start: 03-15-2023 Influenza vaccination N [facility] Start: 10-22-2022 [facility] Start: 09-04-2022 Plain X-ray abdomen XR abdomen min 2 V [facility] Start: 02-21-[address] [facility] Start: 1988 DTaP,Tdap and Td Vac cines (1 - Tdap) DTaP,Tdap and Td Vaccines (1 - Tdap) [facility] Start: 12-27-1987 Adult BMI Follow Up Plan Adult BMI Follow Up Plan [facility] Start: 1981 Depression Screening Depression Scre ening [facility] Start: 1969 Screening for malign ant neoplasm of colon [facility] Start: 1969 Tobacco Counseling Tobacco Counselin g [facility] End: 09-03-2024 Cytology Cytology Pathology and Cytology Routine Hematuria, microscopic 1 Occurrences starting 09/04/2023 until 09/03/2024 [facility] Comment on above: 1 Occurrences starti ng 09/04/2023 until 09/03/2024 Patient Education [facility] Work Phone: Patient referral [facility] Work Phone: Immunizations Immunization Date Immunization Notes Care Provider Fa cili 09-11-2022 zoster vaccine recombinant Brooklynn Aichholz ZINC CHLORIDE OPERATOR Work Phone: [facility] Healthcare 05-31-2022 zoster vaccine recombinant Brooklynn Aichholz ZINC CHLORIDE OPERATOR Work Phone: [facility] Healthcare Payers Date Payer Category Payer Medicaid HMO [facility] MEDICAID [id number] 2023 Private Health Insurance [facility] [id number] 2023-Present [phone] [address] [place] [address] [id number] 2023 Medicaid [employer] MEDICAID [employer] [place]ICA[place] [id number] 2023-Present [address] [place] [address] [id number] 2023 Medicaid [id number] 1969 Unknown [id number] 2.16.840.1.964815.3.579. 2.593 1969 Unknown [id number] 2.16.840.1.152528.3.579. 2.593 1969 Unknown [id number] 2.16.840.1.419915.3.579. 2.6 1969 Unknown [id number] 2.16.840.1.835100.3.579. 2.1285 1969 Unknown [id number] 2.16.840.1.192067.3.579. 2.1285 1969 Unknown [id number] 2.16.840.1.505490.3.579. 2.1285 1969 Unknown [id number] 2.16.840.1.844072.3.579. 2.1285 1969 Unknown [id number] 2.16.840.1.455104.3.579. 2.1286 1969 Unknown [id number] 2.16.840.1.717538.3.579. 2.1285 1969 Unknown [id number] 2.16.840.1.784883.3.579. 2.1259 1969 Unknown [id number] 2.16.840.1.913281.3.579. 2.1259 1969 Unknown [id number] 2.16.840.1.190739.3.579. 2.9 1969 Unknown [id number] 2.16.840.1.288141.3.579. 2.9 1969 Unknown [id number] 2.16.840.1.086926.3.579. 2.1285 1969 Unknown [id number] 2.16.840.1.766698.3.579. 2.1285 1969 Unknown [id number] 2.16.840.1.736254.3.579. 2.1285 1969 Unknown [id number] 2.16.840.1.632375.3.579. 2.1285 1969 Unknown [id number] 2.16.840.1.920441.3.579. 2.1285 1969 Unknown [id number] 2.16.840.1.408558.3.579. 2.1285 1969 Unknown [id number] 2.16.840.1.136751.3.579. 2.1285 1969 Unknown [id number] 2.16.840.1.532216.3.579. 2.1285 1969 Unknown [id number] 2.16.840.1.177128.3.579. 2.1285 1969 Unknown [id number] 2.16.840.1.443222.3.579. 2.1285 1969 Unknown [id number] 2.16.840.1.615952.3.579. 2.1285 1969 Unknown [id number] 2.16.840.1.550081.3.579. 2.1285 1969 Unknown [id number] 2.16.840.1.339423.3.579. 2.1285 1969 Unknown [id number] 2.16.840.1.954317.3.579. 2.1286 1969 Unknown [id number] 2.16.840.1.007259.3.579. 2.1286 1959 Self-pay [id number] 1959 Unknown [id number] Unknown [id number] 2.16.840.1.832205.3.579. 2.593 Unknown [id number] 2.16.840.1.149820.3.579. 2.531 Social History Date Type Detail Facility Start: 09-04-2022 End: 12-01-2023 Tobacco smoking status [facility] Smoker (finding) [facility] Start: 1970 Sex Assigned At Male F [facility] Start: 07-17-2023 End: 03-17-2024 Tobacco smoking status [facility] Smokes tobacco daily [facility] Start: 07-15-1988 History of tobacco use Cigarette Smo ker [facility] Start: 07-17-2023 End: 03-23-2024 Cigarettes smoked current (pack per day) - Reported 1 [facility] Start: 08-21-2023 End: 03-30-2024 Alcohol intake Ex-drinker (finding) [facility] Start: 07-22-2023 End: 03-23-2024 Tobacco use panel [facility] Start: 07-21-2023 Alcohol Comment caffeine 1-2 c ups per day [facility] Start: 1970 Sex Assigned At Not on file [facility] Start: 09-04-2023 End: 03-17-2024 Tobacco use and exposure Smokeless tobacco non-user [facility] Start: 09-04-2023 End: 06-17-2024 Alcohol intake Lifetime non-drinker (finding) [facility] Within the past 12 m [facility] we worried whether our food would run out before we got money to buy more. Never True [facility] Do you belong to any clubs or organizations such as jew groups, unions, fraternal or athletic groups, or school groups? No [facility] Are you now , , , , never or living with a partner? Living with partner [facility] How often to you hav e a drink containing alcohol? Never [facility] Do you feel stress - tense, restless, nervous, or anxious, or unable to sleep at night because your mind is troubled all the time - these days [OSQ] Not at all [facility] (I/We) worried wheth er (my/our) food would run out before (I/we) got money to buy more. Sometimes true [facility] In the past 12 month s, was there a time when you were not able to pay the mortgage or rent on time? Yes [facility] How often to you hav e a drink containing alcohol? Monthly or less [facility] How many standard dr inks containing alcohol do you have on a typical day? 1 or 2 [facility] Start: 08-06-2023 Sex Male (finding) [facility] Goals Date Patient Goal Desired Activity /State Clinical Notes 08-21-2023 to 06-17-2024 Telephone Encounter - Lida Suh MD - 06/17/2024 11:59 AM ESTTelephone Encounter - Lida Suh MD - 06/17/2024 11:59 AM BARBARA SOL - 03/30/2024 9:00 AM EDTPatient Instructions Note Date & Type Note Facility 06-17-2024 Miscellaneous Notes Cyst[facility] setup 6 months diagnosis history bladder carcinoma. documented in this encounter [facility] bladder carcinoma. [facility] 03-30-2024 History of Presen t illness Narrative A week or two ago pt had hit his head while working on a wall, would like his head check. Images from the original note were not included. Reno Abreu is a 53 y.o. male presents with chief complaint of No chief complaint on file. HPI: Here for recheck: Mental Health: doing ok with current meds, no SI, HI, hallucinations Cancer: continues with urology for bladder cancer etc. See those notes for update Head contusion a week or 2 ago, just wants looked at. No LOC, no NVD, no dizziness or lightheadedness SUBJECTIVE: MEDICATIONS: Current Outpatient Medications Medication Instructions atorvastatin (LIPITOR) 10 mg, Oral, Nightly citalopram (CELEXA) 20 mg, Oral, Daily finasteride (PROSCAR) 5 mg, Oral, Daily ketorolac (TORADOL) 10 mg, Oral, Every 6 hours PRN lamoTRIgine (LAMICTAL) 100 mg, Oral, Daily tamsulosin (FLOMAX) 0.4 mg, Oral, Daily ALLERGIES: Allergies Allergen Reactions Hydrocodone GI intolerance constipation REVIEW OF SYMPTOMS: Review of Systems Constitutional: Negative for activity change, appetite change and unexpected weight change. HENT: Negative for ear pain, nosebleeds, sneezing, trouble swallowing and voice change. Eyes: Negative for pain, discharge and visual disturbance. Respiratory: Negative for apnea, chest tightness and wheezing. Cardiovascular: Negative for leg swelling. Gastrointestinal: Negative for abdominal distention, blood in stool, constipation and diarrhea. Genitourinary: Negative for decreased urine volume, difficulty urinating, dysuria and hematuria. Skin: Negative for color change. Neurological: Negative for dizziness, tremors and seizures. Psychiatric/Behavioral: Negative for agitation, decreased concentration, hallucinations, self-injury and suicidal ideas. The patient is not nervous/anxious. Hematological: Negative for adenopathy. Does not bruise/bleed easily. Endocrine: Negative for cold intolerance, heat intolerance, polydipsia and polyuria. Allergic/Immunologic: Negative for environmental allergies and food allergies. PAST MEDICAL HISTORY Past Medical History: Diagnosis Date Abdominal pain 09/26/2023 Abnormal TSH Bipolar disorder ([facility]) 07/22/2023 Chicken pox Cholelithiasis Constipation, chronic COVID-19 virus infection DDD (degenerative disc disease), lumbar Diverticulitis 06/26/2023 Genital warts 09/26/2023 History of HPV infection 09/26/2023 HLD (hyperlipidemia) ([facility]) 07/22/2023 Insomnia 09/26/2023 Lipoma 09/26/2023 Lumbar back pain Male erectile disorder (CODE) 09/26/2023 Measles Rectal pain 09/26/2023 Rising PSA level 07/24/2023 Tobacco user 07/22/2023 Past Surgical History: Procedure Laterality Date CHOLECYSTECTOMY 04/03/2020 Lap. cholecystectomy w/ AVVargas COLONOSCOPY 10/03/2022 AVV family history is not on file. OBJECTIVE: Visit Vitals BP 110/80 (BP Location: Left arm, Patient Position: Sitting, BP Cuff Size: Adult long) Pulse 79 Temp 98.2 F (Temporal) Resp 18 Ht 6' 1.5 Wt 252 lb 3.2 oz SpO2 97% BMI 32.82 kg/m Smoking Status Every Day BSA 2.43 m Physical Exam Vitals and nursing note reviewed. Constitutional: General: He is not in acute distress. Appearance: Normal appearance. He is not ill-appearing, toxic-appearing or diaphoretic. HENT: Head: Normocephalic. Right Ear: Tympanic membrane, ear canal and external ear normal. Left Ear: Tympanic membrane, ear canal and external ear normal. Nose: Nose normal. No congestion or rhinorrhea. Mouth/Throat: Mouth: Mucous membranes are moist. Pharynx: Oropharynx is clear. No oropharyngeal exudate or posterior oropharyngeal erythema. Eyes: General: Right eye: No discharge. Left eye: No discharge. Extraocular Movements: Extraocular movements intact. Conjunctiva/sclera: Conjunctivae normal. Pupils: Pupils are equal, round, and reactive to light. Neck: Vascular: No carotid bruit. Cardiovascular: Rate and Rhythm: Normal rate and regular rhythm. Pulses: Normal pulses. Heart sounds: Normal heart sounds. Pulmonary: Effort: Pulmonary effort is normal. No respiratory distress. Breath sounds: Normal breath sounds. No wheezing. Abdominal: General: Bowel sounds are normal. There is no distension. Palpations: Abdomen is soft. Tenderness: There is no abdominal tenderness. Musculoskeletal: Cervical back: Neck supple. Right lower leg: No edema. Left lower leg: No edema. Skin: General: Skin is warm and dry. Capillary Refill: Capillary refill takes 2 to 3 seconds. Comments: Bridge of nose with palpable lump: approx [id number], non tender no induration noted no fluctuance noted Neurological: General: No focal deficit present. Mental Status: He is alert. Cranial Nerves: No cranial nerve deficit. Motor: No weakness. Comments: Neg ulnar drift Psychiatric: Mood and Affect: Mood normal. Behavior: Behavior normal. Thought Content: Thought content normal. Judgment: Judgment normal. ASSESSMENT AND PLAN: No follow-ups on file. Problem List Items Addressed This Visit Tobacco user Bipolar disorder (CMS/HCC) No changes in meds or doses Feels good Will fu in 4 months, sooner if needs something Malignant neoplasm of overlapping sites of bladder (CMS/HCC) - Primary Continue with Urology for mgmt of this condition Lump of skin He did ask dermatology about removal of this, they recommended plastics At this point he would like to wait until after first of the year At that point will refer to Plastics No s/s ulceration of any topical abnormalities Contusion of scalp No acute s/s of CHI, no open wound noted Associated Problem(s): Contusion of scalp No acute s/s of CHI, no open wound noted Associated Problem(s): Lump of skin He did ask dermatology about removal of this, they recommended plastics At this point he would like to wait until after first of the year At that point will refer to Plastics No s/s ulceration of any topical abnormalities Associated Problem(s): Bipolar disorder (CMS/HCC) No changes in meds or doses Feels good Will fu in 4 months, sooner if needs something Associated Problem(s): Malignant neoplasm of overlapping sites of bladder (CMS/HCC) Continue with Urology for mgmt of this condition documented in this encounter [facility] 10-17-2023 Instructions Tiffanie Altamirano RN - 10/17/2023 9:00 AM EDT Preoperative Education Checklist- General Surgery date: 10/30/23 Surgery time: 930a Arrival time: 730a 1. Bring a photo ID and your insurance card with you the day of surgery. You will check in at the main lobby of the [facility]- registration desk is straight ahead as soon as you walk in. Tell them you are here for surgery. 2. If you have a Living Will/Durable Power of Iron Launder Operator for Health Care that is not on [...] after you have bathed. 5. NO nail greek/acrylic on at least one finger. If you are having a hand, wrist or foot surgery then all nail greek and artificial/acrylic nails must be removed from [...] please call the Preadmission Testing office at [phone], Mon.-Fri. 7 a.m.-3 p.m. Leave a voicemail [...] with your doctor. documented in this encounter [facility] 09-04-2023 Miscellaneous Notes Cysto potential retrograde pyelogram. Mac anesthesia [place]. Possible biopsy. Diagnosis is hematuria. documented in this encounter [facility] 09-04-2023 Telephone encounter Note Cysto potential retrograde pyelogram. Mac anesthesia [place]. Possible biopsy. Diagnosis is hematuria. [facility] 09-04-2023 Evaluation + Plan note Associated [...] system. The patient acknowledges this and agrees. [facility] 09-04-2023 Miscellaneous Notes Associated Problem(s): Hematuria, microscopic [...] this and agrees. documented in this encounter [facility] 09-04-2023 History of Presen t illness Narrative Images from the original note were not included. [address] [place] [address] [facility] [address] Patient: Reno Abreu Date of : 1970 [...] for your understanding. documented in this encounter [facility] 08-21-2023 Telephone encounter Note pt called needing a refill on his lamoTRIgine (LaMICtal) 100 MG tablet and citalopram (CeleXA) 20 MG tablet [facility] 08-21-2023 Miscellaneous Notes pt called needing a refill on his lamoTRIgine (LaMICtal) 100 MG tablet and citalopram (CeleXA) 20 MG tablet documented in this encounter [facility] Evaluation note No assessment inform ation available [facility] Work Phone: Evaluation note Diagnosis Bipolar affective disorder, remission status unspecified (CMS/HCC)- Primary documented in this encounter [facility]* Diagnosis Mixed hyperlipidemia (CMS/HCC)- Primary Mixed hyperlipidemia documented in this encounter [facility]* Diagnosis Elevated PSA- Primary Elevated prostate specific antigen (PSA) Hematuria, microscopic Microscopic hematuria [facility] Diagnosis Mixed hyperlipidemia (CMS/HCC) Mixed hyperlipidemia Bipolar affective disorder, remission status unspecified (CMS/HCC) documented in this encounter [facility]* Diagnosis Elevated PSA- Primary Elevated prostate specific antigen (PSA) Hematuria, microscopic Microscopic hematuria Malignant neoplasm of overlapping sites of bladder (CMS-HCC)- Primary Elevated PSA Elevated prostate specific antigen (PSA) Urinary incontinence, unspecified type- Primary Elevated PSA Elevated prostate specific antigen (PSA) Malignant neoplasm of overlapping sites of bladder (CMS-HCC) Malignant neoplasm of overlapping sites of bladder (CMS-HCC)- Primary Malignant neoplasm of overlapping sites of bladder (CMS-HCC)- Primary Malignant neoplasm of overlapping sites of bladder (CMS-HCC) documented in [facility] encounter [facility] Diagnosis Bipolar affective disorder, remission status unspecified (CMS/HCC)- Primary Malignant neoplasm of overlapping sites of bladder (CMS/HCC) Tobacco user Tobacco use disorder Lump of skin Localized superficial swelling, mass, or lump Contusion of scalp, initial encounter Mixed hyperlipidemia (CMS/HCC) Mixed hyperlipidemia [facility] Additional Instructions As we discussed, your symptoms of excessive sleepiness during the day, persistent fatigue, and loud snoring suggest possible sleep apnea. Please follow up with your doctor about this as you may need to be referred for a sleep study. MiraLax may be used daily to stay regular and prevent constipation. May be taken twice daily until constipation is resolved.[facility] Work Phone: InstructionsNot on filedocumented in this encounter [facility] filedocumented in this encounter [facility]Not on filedocumented in this encounter [facility]ructionsNot on filedocumented in this encounter [facility] Summary Purpose Family History No Family [...] Date/ Time Advance Directives No March 10:36pm Date Activated Date Inactivated Comments 12/01/2023 12:29 PM 12/02/2023 5:55 PM Chief Complaint and Reason for Visit Chief Complaint Dizzy, Fatigue, Weak ness Chief Complaint Dizzy, Fatigue, Weak ness family HX of colon cancer Multiple Masses Chief Complaint Blood in Urine Reason for Referral Specialty Diagnoses / Procedures Referred By Helen hayes Referred To Contact Radiology Diagnoses Hematuria, microscopic Procedures CT urogram Lida Suh MD [address] [place] [address] Referral ID Status Reason Start Date Expiration Date V isits Requested Visits Authorized [id number] Pending Review 09/04/2023 09/03/2024 1 1 Additional Source Comments (unrecognized sect ion and content) No Status Records FoundNo Status Records FoundNo Status Records FoundNo Status Records FoundNo Status Records FoundNo Status Records FoundNo Status Records Found INFORMATION SOURCE (unrecogn ized section and content) DATE CREATED AUTHOR 02/04/2018 [facility] DATE CREATED AUTHOR AUTHOR'S ORGANIZ ATION 10/02/2022 [facility] DATE CREATED AUTHOR AUTHOR'S ORGANIZ ATION 12/03/2023 [facility] DATE CREATED AUTHOR AUTHOR'S ORGANIZ ATION 12/11/2023 [facility] DATE CREATED AUTHOR AUTHOR'S ORGANIZ ATION 02/02/2024 [facility] DATE CREATED AUTHOR AUTHOR'S ORGANIZ ATION 03/31/2024 [facility] DATE CREATED AUTHOR AUTHOR'S ORGANIZ ATION 06/28/2024 [facility] Care Teams (unrecognized sec tion and content) [...] Active Brooklynn Yeager Primary Care Provider Active Body Liner Relationship Specialty Start Date End Date Eusebio Schneider MD [address] [place] [address] PCP - General Family Medicine 07/16/23 Brooklynn Yeager NP [address] [place] [address] Nurse Practitioner Family Medicine 05/15/23 Body Liner Relationship Specialty Start Date End Date Eusebio Schneider MD [address] [place] [address] PCP - General Family Medicine 07/16/23 Brooklynn Yeager NP [address] [place] [address] Nurse Practitioner Family Medicine 05/15/23 Body Liner Relationship Specialty Start Date End Date [facility]nn [facility]ager [facility] [address] [place] [address] PCP - General Nurse Practitioner 09/04/23 Body Liner Relationship Specialty Start Date End Date Brooklynn Yeager WAGON DRIVER SAL[facility]ERSON[facility] [address] [place] [address] PCP - General Nurse Practitioner 09/04/23 Body Liner Relationship Specialty Start Date End Date [facility]lynn [facility]ager [facility] [address] [place] [address] PCP - General Nurse Practitioner 09/04/23 Team Status: Inactive Member Role Status Dates Brooklynn Yeager Primary Care Provider Active Sta rt: December 01, 2023 End: December 01, 2023 Hernandez Lares Jr, MD Emergency Provider Active Start: December 01, 2023 End: December 01, 2023 Body Liner Relationship Specialty Start Date End Date Eusebio Schneider MD [address] [place] [address] PCP - General Family Medicine 09/26/23 Brooklynn Yeager NP [address] [place] [address] PCP - [facility] 01/13/24 Brooklynn Yeager NP [address] [place] [address] Nurse Practitioner Family Medicine 05/15/23 Brooklynn Yeager NP [address] [place] [address] Nurse Practitioner Family Medicine 09/26/23 Body Liner Relationship Specialty Start Date End Date Brooklynn Yeager, 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 PCP - General Nurse Practitioner 09/04/23 Body Liner Relationship Specialty Start Date End Date Brooklynn Yeager, 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 PCP - General Nurse Practitioner 09/04/23 Body Liner Relationship Specialty Start Date End Date Eusebio Schneider MD [address] [place] [address] PCP - General Family Medicine 09/26/23 Brooklynn Yeager NP [address] [place] [address] PCP - [facility] 01/13/24 Brooklynn Yeager NP [address] [place] [address] Nurse Practitioner Family Medicine 05/15/23 Brooklynn Yeager NP [address] [place] [address] Nurse Practitioner Family Medicine 09/26/23 Body Liner Relationship Specialty Start Date End Date Eusebio Schneider MD [address] [place] [address] PCP - General Family Medicine 09/26/23 Brooklynn Yeager NP [address] [place] [address] PCP - [facility] 01/13/24 Brooklynn Yeager NP [address] [place] [address] Nurse Practitioner Family Medicine 05/15/23 Brooklynn Yeager NP [address] [place] [address] Nurse Practitioner Family Medicine 09/26/23 Goals (unrecognized section and content) Goals may be documented in a n alternate sectionGoals may be documented in an alternate sectionNot on filedocumented as of this encounterNot on filedocumented as of this encounterNot on filedocumented as of this encounterGoals may be documented in an alternate sectionNot [...] BE BASED ON THE PRIMARY CLINICAL RECORDS. [employer] provides no warranty or guarantee of the accuracy or completeness of information in this document.
--- NOTE | 2024-06-30 20:02 | PC.NURSE ---
this patient complains of headache, sore throat and a headache onset 4 days ago. this patient awake and alert sitting upright on the bed watching tv. this patient updated that we are waiting on the swab results. this patient voices no the concerns and shows no signs of distress
[2024-06-30 20:17] LABS: Influenza Virus A Antigen Negative; Influenza Virus B Antigen Negative; Internal Control Within Normal Limits; SARS-CoV-2 Ag POSITIVE (NEGATIVE)
--- NOTE | 2024-06-30 20:39 | ED.GENADUL1 ---
HPI HPI - General Adult General Chief complaint: Upper Respiratory Infection Stated complaint: SOB, fever Time Seen by Provider: 06/30/24 19:51 Source: patient Mode of arrival: walk-in History of Present Illness HPI narrative: 53-year-old male to the emergency department with chief complaint of cough, nasal congestion, sore throat, malaise. Symptoms began yesterday. He denies any chest pain or shortness of breath. He reports subjective fever and chills. Similar to past episode of COVID. Related Data Home Medications ?Medication ?Instructions ?Recorded ?Confirmed atorvastatin 10 mg tablet mg 11/28/23 citalopram 10 mg tablet mg 11/28/23 lamotrigine 100 mg tablet mg 11/28/23 Allergies Allergy/AdvReac Type Severity Reaction Status Date / Time No Known Drug Allergies Allergy Verified 11/28/23 19:14 Opioid HPI Opioid Management Most Recent Opioid Data: Last Pain Scale 8 11/28/23 23:06 11/28/23 Review of Systems ROS Status of ROS 10 or more systems reviewed and unremarkable except as noted in history and below [facility] Surgical History (Updated 11/28/23 @ 19:15 by Costa Mcknight) Hx of cholecystectomy ?Z90.49 - Acquired absence of other specified parts of digestive tract (ICD-10) Exam Narrative Exam Narrative: VITALS: I have reviewed the triage vital signs. GENERAL: Well developed, well appearing adult in no acute distress. NEURO: Alert and oriented. Moves all extremities. Face is symmetric and expressive. EYES: PERRL. No scleral icterus or conjunctival injection. No discharge. HENT: Normocephalic, atraumatic. Hearing is grossly intact. Nares grossly patent and without discharge. Mucous membranes moist. NECK: No JVD. Patient moves neck without restriction. CARDIO: Rhythm regular. Normal rate. No murmur, rub, or gallop. Pulses equal bilaterally in the upper and lower extremity. No lower extremity edema. PULM: Lungs clear to auscultation in all al. No wheezes, rales, or rhonchi. No conversational dyspnea. No splinting, stridor, or accessory muscle use. GI/: Abdomen is soft and non-tender. Normoactive bowel sounds. EXTREMITIES: Symmetric muscle bulk. No joint swelling. No clubbing, cyanosis, or deformity. SKIN: Warm and dry. Normal turgor. No rash or lesions appreciated. PSYCH: Mood, affect, and interaction is appropriate to the setting. Constitutional Vital Signs, click to edit/add: Last Vital Signs Temp 98.0 F 06/30/24 19:47 Pulse 86 06/30/24 19:47 Resp 16 06/30/24 19:47 BP 104/67 06/30/24 19:47 Pulse Ox 98 06/30/24 19:47 O2 Del Method Room Air 06/30/24 19:47 Course Vital Signs Vital signs: Vital Signs Temperature 98.0 F 06/30/24 19:47 Pulse Rate 86 06/30/24 19:47 Respiratory Rate 16 06/30/24 19:47 Blood Pressure 104/67 06/30/24 19:47 Pulse Oximetry 98 06/30/24 19:47 Oxygen Delivery Method Room Air 06/30/24 19:47 Temperature 98.0 F 06/30/24 19:47 Pulse Rate 86 06/30/24 19:47 Respiratory Rate 16 06/30/24 19:47 Blood Pressure 104/67 06/30/24 19:47 Pulse Oximetry 98 06/30/24 19:47 Oxygen Delivery Method Room Air 06/30/24 19:47 Medical Decision Making MDM Narrative Medical decision making narrative: Well-appearing 53-year-old male to the emergency department with chief complaint of flulike illness. Vital stable, the patient is afebrile. History and exam are consistent with viral URI. His COVID testing was positive. Discussed with the patient. Paxlovid contraindicated secondary to his chronic medications. Dexamethasone is given for his throat. Return precautions were discussed. All questions were answered. The patient was discharged home. Medical Records Medical records reviewed: Yes I reviewed the patient's medical records Lab Data Lab results reviewed: Yes I reviewed the patient's lab results Labs: Lab Results 06/30/24 Range/Units 19:55 Influenza Type A Ag Negative Influenza Type B Ag Negative SARS-CoV-2 Ag (CV2AG) Positive A (NEGATIVE) Discharge Plan Discharge Chief Complaint: Upper Respiratory Infection Clinical Impression: COVID-19 Patient Disposition: Home, Self-Care Time of Disposition Decision: 20:38 Condition: Good Mode of Transportation: Private Vehicle Prescriptions / Home Meds: No Action atorvastatin 10 mg tablet citalopram 10 mg tablet lamotrigine 100 mg tablet Print Language: Romanian Instructions: How to Recover from COVID-19 at Home (ED) Additional Instructions: Call the office of your primary care doctor to arrange for follow-up within the above-stated timeframe. Your ED visit was focused on your acute issue and does not replace primary care. You should review your labs, imaging, and diagnoses from this ED visit with your primary care physician. There may be non-emergent/ incidental findings that need further evaluation. You should review your vital signs including blood pressure with your PCP. If you were prescribed medications you should discuss possible side-effects and drug interactions with your pharmacist. Call 911 or go to the nearest Emergency Department if you develop any new or worsening symptoms. Referrals: Brooklnyn Yeager NP [Primary Care Provider] - 1 week
[2024-06-30] MEDS: DEXAMETHASONE SOD PHOS 10 MG/ML VIAL 16 MG PO (21:06)
== END 2024-06-30 21:17 | disposition home or self-care (01) ==
PROVIDERS: Emergency Provider Student in an Organized Health Care Education/Training Program; PCP Nurse Practitioner
DX: U07.1 COVID-19 (principal); Z79.899 Other long term (current) drug therapy; Z86.16 Personal history of COVID-19; Z90.49 Acquired absence of other specified parts of digestive tract
CPT/HCPCS: 87804; 87811; 99284; J1100

== ENCOUNTER 2024-08-13 08:35 | Outpatient (OUT) | payer OTHER, SELFPAY ==
--- OUTSIDE RECORDS SUMMARY | 2024-08-13 08:39 | XMS_ITS | CCD ---
Author Organization [facility] ion Partnership [facility] Care Team Providers Care Range Mechanic Name Role Phone KINJAL CHEW Unavailable Unavailable KINJAL CHEW Unavailable Unavailable Aichgavin, Brooklynn Adi Primary Care Provider MD Hernandez Lares Jr Emergency Provider AICHHOLZ, GRADES 7 AND 8 VISITING TEACHER BROOKLYNN Attending Unavailable AICHHOLZ, GRADES 7 AND 8 VISITING TEACHER BROOKLYNN Consulting Unavailable AICHHOLZ, GRADES 7 AND 8 VISITING TEACHER BROOKLYNN Primary Care Unavailable AICHHOLZ, GRADES 7 AND 8 VISITING TEACHER BROOKLYNN Admitting Unavailable AICHHOLZ, GRADES 7 AND 8 VISITING TEACHER BROOKLYNN Attending Unavailable AICHHOLZ, GRADES 7 AND 8 VISITING TEACHER BROOKLYNN Consulting Unavailable AICHHOLZ, GRADES 7 AND 8 VISITING TEACHER BROOKLYNN Primary Care Unavailable AICHHOLZ, GRADES 7 AND 8 VISITING TEACHER BROOKLYNN Admitting Unavailable AICHHOLZ, GRADES 7 AND 8 VISITING TEACHER BROOKLYNN Primary Care Unavailable MISC, DR QUIGLEY Attending Unavailable MISC, DOCTOR Consulting Unavailable MISC, DOCTOR Admitting Unavailable Aichholz, Brooklynn J Primary Care Provider MD Hernandez Lares Jr Emergency Provider MD Kevin Sheehan Attending Provider Aichholz RESTORATIVE REHAB AIDE, Brooklynn Unavailable Eusebio Schneider MD Primary Care Provider Aichholz TROLLEY CAR OPERATOR-GRADES 7 AND 8 VISITING TEACHER, Brooklynn J Primary Care Provider LIDA SUH Referring Unavailable AICHHOLZ, BROOKLYNN J Primary Care Unavailable AICHHOLZ, BROOKLYNN J Primary Care Unavailable [facility] Consulti ng Unavailable BRICE DYSON Attending Unavailab JOSE Jamison Admitting Unavailable JOSE GARIBAY Attending Unavailable HERNANDEZ LARES JR Referring Unavailable AICHHOLZ, BROOKLYNN J Primary Care [...] Unavailable AICHHOLZ, BROOKLYNN J Primary Care Unavailable Aichholz RESTORATIVE REHAB AIDE, Brooklynn Unavailable Eusebio Schneider MD Primary Care Provider [phone] Aichholz RESTORATIVE REHAB AIDE, Brooklynn Unavailable Aichholz RESTORATIVE REHAB AIDE, Brooklynn Unavailable Aichholz TROLLEY CAR OPERATOR-GRADES 7 AND 8 VISITING TEACHER, Brooklynn J Primary Care Provider LIDA SUH [...] Referring Unavailable BROOKLYNN YEAGER Primary Care Unavailable BROOKLYNN YEAGER Attending Unavailable BROOKLYNN EYAGER Attending Unavailable BROOKLYNN YEAGER Attending Unavailable Allergies Allergy Classification Reported Allergen(s) Allergy Type Date of Onset Reaction(s) Facility (5 sources) Acetaminophen; Translations: [acetaminophen] Drug Allergy 09-04-19 23 Gastrointestinal Upset [facility] (16 sources) HYDROcodone; Translations: [hydrocodone] Drug Allergy 09-04-19 23 GI intolerance [facility] (1 source) Acetaminophen / HYDROcodone Drug Allergy [facility] (9 sources) Acetaminophen / HYDROcodone; Translations: [HYDROCODONE-ACET AMINOPHEN] Drug Allergy 09-04-19 24 [employer] Medications Current Medications Medication Drug Class(es) Dates [...] April 04, 2020 October 22, 2022 2:09pm [id number] 200 actuat albuterol 0.09 mg/actuat metered dose inhaler (5 sources) beta2-Adrenergic Agonist Start: 07-02-2024 End: 08-01-2024 take 2 puff(s) by inhalation every six hours for wheezing albuterol HFA 90 mcg/act inhaler Indications: COVID Inhale 2 puffs every 6 (six) hours if needed for shortness of breath or wheezing 18 g 07/02/2024 08/01/2024 Active atorvastatin 10 mg oral tablet (20 sources) HMG-CoA Reductase Inhibitor Start: 01-21-2024 End: 10-28-2024 take 1 tablet by mouth at bedtime atorvastatin (Lipitor) 10 MG tablet Indications: Mixed hyperlipidemia (CMS/HCC) Take 1 tablet (10 mg) by mouth at bedtime 90 tablet 1 07/30/2024 10/28/2024 Active Start: 07-29-2023 End: 12-19-2023 take 1 tablet by mouth in the morning atorvastatin (LIPITOR) 10 mg tablet Take 1 tablet (10 mg total) by mouth in the morning. 09/20/2023 12/19/2023 Active brompheniramine maleate 0.4 mg/ml / dextromethorphan hydrobromide 2 mg/ml / pseudoephedrine hydrochloride 6 mg/ml oral solution (1 source) alpha-Adrenergic Agonist, Uncompetitive P-ylcwoa-L-aspartate Receptor Antagonist, Sigma-1 Agonist Start: 07-02-2024 End: 07-07-2024 take 10 mL by mouth four times daily as needed for cough mlxpetonvjzpvrp-qcdxeoxjfonhvow-HU 30-2-10 MG/5ML syrup Indications: COVID Take 10 mL by mouth 4 (four) times a day as needed for cough or congestion for up to 5 days 200 mL 07/02/2024 07/07/2024 Active citalopram 20 mg oral tablet (20 sources) Serotonin Reuptake Inhibitor Start: 02-19-2024 End: 10-28-2024 take 1 tablet by mouth once daily citalopram (CeleXA) 20 MG tablet Indications: Bipolar affective disorder, remission status unspecified (CMS/HCC) Take 1 tablet (20 mg) by mouth Daily 90 tablet 1 07/30/2024 10/28/2024 Active Start: 08-21-2023 End: 11-19-2023 take 1 tablet by mouth in the morning citalopram (CeleXA) 20 mg tablet Take 1 tablet (20 mg total) by mouth in the morning. 0 08/21/2023 11/19/2023 Active Start: 10-22-2022 take 2 tablets by mo [facility] once daily in the morning Citalopram (Celexa) 10 mg tablet Active 20 MG PO Every morning October 22, 2022 12:00am Start: 10-22-2022 take 1 tablet by esau once daily in the morning Citalopram (Celexa) 10 mg tablet Active 10 MG PO Every morning October 22, 2022 12:00am finasteride 5 mg oral tablet (9 sources) 5-alpha Reductase Inhibitor Start: 12-19-2023 take [...] (Therapy completed) lamoTRIgine 100 mg oral tablet (20 sources) Mood Stabilizer, Anti-epileptic Agent Start: 05-21-2023 End: 10-28-2024 take 1 tablet by mouth in the morning lamoTRIgine (LaMICtal) 100 mg tablet Take 1 tablet (100 mg total) by mouth in the morning. 08/21/2023 11/19/2023 Active Start: 10-22-2022 End: 12-01-2023 take 1 tablet by mouth twice daily Lamotrigine (Lamictal) 25 mg tablet Discontinued 25 MG PO Twice daily October 22, 2022 12:00am December 01, 2023 12:27am tamsulosin hydrochloride 0.4 mg oral capsule (9 sources) alpha-Adrenergic Kwan Start: 12-19-2023 take 1 [...] Sig (Normalized) Sig (Original) polyethylene glycol 3350 67908 mg powder for oral solution (4 sources) [...] without obstruction] 04-04-2020 Episodic Cancer of bladder (19 sources) Malignant neoplasm of overlapping sites of bladder; Translations: [Malignant neoplasm, overlapping lesion of bladder] Onset: 09-04-2023 03-30-2024 Chronic Disorders of lipid metabolism (20 sources) Hyperlipidemia; Translations: [Hyperlipidemia, unspecified] Onset: 07-22-2023 Resolved: 09-26-2023 07-22-2023 Chronic Diverticulosis and diverticulitis (11 sources) Diverticulitis; Translations: [Diverticulitis of intestine, part unspecified, without perforation or abscess without bleeding] Onset: 06-26-2023 06-26-2023 Chronic Genitourinary symptoms and ill-defined conditions (1 source) Unspecified urinary incontinence; Translations: [Unspecified urinary incontinence] Onset: 01-29-2024 Chronic Intestinal obstruction without hernia (4 sources) Intussusception of intestine; Translations: [Intussusception] 04-04-2020 Episodic Malaise and fatigue (4 sources) Fatigue; Translations: [Other fatigue] 09-05-2022 Episodic Miscellaneous mental health disorders (9 sources) Impotence; Translations: [Male erectile disorder] Onset: 09-26-2023 09-26-2023 Chronic Mood disorders (20 sources) Bipolar disorder; Translations: [Bipolar disorder, unspecified] Onset: 07-22-2023 08-21-2023 Chronic Nephritis; nephrosis; renal sclerosis (1 source) Recurrent gail hematuria; Translations: [Recurrent and persistent hematuria with unspecified morphologic changes] 12-01-2023 Chronic Other gastrointestinal disorders (4 sources) Constipation; Translations: [Constipation, unspecified] 09-05-2022 Episodic Other lower respiratory disease (4 sources) Snoring; Translations: [Snoring] 09-05-2022 Episodic Other nutritional; endocrine; and metabolic disorders (11 sources) Body mass index 30+ - obesity; Translations: [Obesity, unspecified] Onset: 09-26-2023 09-26-2023 Chronic Residual codes; unclassified (4 sources) Daytime somnolence; Translations: [Other hypersomnia] 09-05-2022 Chronic Residual codes; unclassified (15 sources) Tobacco user; Translations: [Tobacco use] Onset: 07-22-2023 07-22-2023 Episodic Residual codes; unclassified (1 source) History of transurethral resection of bladder tumor; Translations: [Other specified postprocedural states] 12-01-2023 Episodic Spondylosis; intervertebral disc disorders; other back problems (11 sources) Degeneration of lumbar intervertebral disc; Translations: [Other intervertebral disc degeneration, lumbar region] Onset: 08-21-2023 08-21-2023 Chronic Unclassified (3 sources) CONTACT W/AND (SUSP) EXPOS COVID-19; Translations: [CONTACT W/AND (SUSP) EXPOS COVID-19] Onset: 11-06-2021 Unclassified (1 source) 52 yrs M (1970) [address] Onset: 11-29-2023 Unclassified (1 source) Elevated PSA Onset: 09-04-2023 Unclassified (1 source) Hematuria, microscopic [R31.29] Onset: 10-30-2023 Viral infection (15 sources) Genital warts; Translations: [Anogenital (venereal) warts] Onset: 09-26-2023 09-26-2023 Episodic Past or Other Problems Problem Classification Problem Date Documented Da te Episodic/Chronic Abdominal pain (9 sources) Abdominal pain; Translations: [Unspecified abdominal pain] Onset: 09-26-2023 09-26-2023 Episodic Anal and rectal conditions (9 sources) Rectal pain; Translations: [Other specified diseases of anus and rectum] Onset: 09-26-2023 09-26-2023 Episodic Genitourinary symptoms and ill-defined conditions (20 sources) Microscopic hematuria; Translations: [Other microscopic hematuria] Onset: 07-29-2023 Resolved: 03-30-2024 07-29-2023 Episodic Mood disorders (2 sources) Mood disorders Onset: 12-01-2023 12-01-2023 Other and unspecified benign neoplasm (9 sources) Lipoma (clinical); Translations: [Benign lipomatous neoplasm, unspecified] Onset: 09-26-2023 09-26-2023 Episodic Other gastrointestinal disorders (11 sources) Chronic constipation; Translations: [Other constipation] Onset: 08-21-2023 08-21-2023 Episodic Other infections; including parasitic (9 sources) History of human papilloma virus infection; Translations: [Personal history of other infectious and parasitic diseases] Onset: 09-26-2023 09-26-2023 Episodic Other nutritional; endocrine; and metabolic disorders (4 sources) Polydipsia; Translations: [POLYDIPSIA] Onset: 03-08-2022 Episodic Other screening for suspected conditions (not mental disorders or infectious disease) (20 sources) Encounter for screening, unspecified; Translations: [Patient encounter status] Onset: 09-18-2022 Episodic Other skin disorders (11 sources) Multiple skin tags; Translations: [Other hypertrophic disorders of the skin] Onset: 07-22-2023 07-22-2023 Episodic Other skin disorders (10 sources) Mass of skin; Translations: [Localized swelling, mass and lump, unspecified] Onset: 03-30-2024 03-30-2024 Episodic Residual codes; unclassified (9 sources) Insomnia; Translations: [Insomnia, unspecified] Onset: 09-26-2023 09-26-2023 Episodic Superficial injury; contusion (10 sources) Contusion of scalp; Translations: [Contusion of scalp, initial encounter] Onset: 03-30-2024 Resolved: 07-30-2024 03-30-2024 Episodic Unclassified (1 source) CONTACT W/AND (SUSP) EXPOS COVID-19; Translations: [CONTACT W/AND (SUSP) EXPOS COVID-19] Onset: 11-03-2021 Results Test Name Value Interpretation Reference Range Facility Cytologyon 06-17-2024 Cytology Normal [facility] Comment on above: Result Comment: [facility] [address] [place] [address] Cytology Consultation Patient Name:RENO ABREU:1970 (Age: 53)Gender:MTaken:06/17/2024eported:06/18/2024 14:16Physician(s):Lida Suh M.D. ([phone])Copy To: Rec. #:[id number]: #[id number] Final Cytologic Diagnosis Urine: Negative for high-grade urothelial cell carcinoma. 06/18/2024 Interpretation performed at [facility], [address] [place] [address], License number: [id number].Electronically Signed Out By Trevin Mallory MD Clinical History Malignant neoplasm of overlapping sites of bladder ([facility]-H[facility]) (C67.8) Gross Description Received was 50 mL of cloudy yellow fluid labeled as [place], urine .Preservative added. 25 mL used for Cytology. See UroVysion report. Source of Specimen Urine Non WASTE MACHINE OFFBEARER ThinPrep Fee Code(s): 1; 36866 Reference Lab Test IDon 12-0 UROVYSION FOR BLADDER CANCER SEE COMMENTS 06/25/2024 12:33 PM Normal [facility] Comment on above: Result Comment: NOTE [...] specific probe for 9p21 ([employer] [place], [place]). This test has been modified from the time checker's instructions. Its performance characteristics were determined by [facility] in a manner consistent with CLIA requirements. This test has not been cleared or approved by the U.S. Food and Drug Administration. Reason for Referral Evaluate for urothelial carcinoma. Specimen Varies Source Urine, NOS Released By See Note Calixto Gross M.D. Test Performed by: [address] [address] Parole Officer: Te Moreau Ph.D.; CLIA# [id number] Performed By: #### 3 0896-5 ####[facility] ([id number])[address] [place] [address] Cytologyon 03-18-2024 Cytology Normal [facility] Comment on above: Result Comment: [facility] [address] [place] [address] Cytology Consultation Patient Name:RENO ABREU:1970 (Age: 53)Gender:MTaken:03/18/2024eported:03/19/2024 17:33Physician(s):Lida Suh M.D. ([phone])Copy To: Rec. #:[id number]: #[id number] Final Cytologic Diagnosis Urine clean catch: Negative for high-grade urothelial cell carcinoma. ao/03/19/2024 Interpretation performed at [facility], [address] [place], [place] [address], License number: [id number].Electronically Signed Out By George Smith MD Clinical History Malignant neoplasm of overlapping sites of bladder (CMS-HCC) C67.8 Gross Description Received was 70mL of cloudy nannette fluid unfixed labeled as [place], Urine clean catch . 35mL used for Cytology. See UroVysion report. Source of Specimen Urine clean catch Non WASTE MACHINE OFFBEARER ThinPrep Fee Code(s): 1; 37488 Reference Lab Test IDon 09-0 UROVYSION FOR BLADDER CANCER SEE COMMENTS 03/26/2024 08:20 AM Normal [facility] Comment on above: Result Comment: NOTE [...] and a locus specific probe for 9p21 ([employer] [place], [place]). This test has been modified from the time checker's instructions. Its performance characteristics were determined by [facility] in a manner consistent with CLIA requirements. This test has not been cleared or approved by the U.S. Food and Drug Administration. Reason for Referral Evaluate for urothelial carcinoma. Specimen Varies Source Urine, NOS Released By Adrianna Proctor M.D. Test Performed by: [place] [address] Parole Officer: Te Moreau Ph.D.; CLIA# [id number] Performed By: #### 3 0896-5 ####[facility] ([id number])[address] [place] [address] Prostate specific Ag [Mass/V ol]on 03-09-2024 PROSTATIC SPEC ANT 2.12 ng/mL Normal 0.00-4.00 [facility] Comment on above: Result Comment: The method used for this test is [employer] DXI chemiluminescent immunoassay. Values obtained by different assay methods cannot be used interchangeably. Performed By: #### 2 857-1 #### [facility] ([id number]) [address], [address] [place] [address] URINE CULTUREon 03-09-2024 Bacteria identified Cx Nom (U) CULTURE RESULTS <10,000 ORGANISMS/ML NORMAL URO GENITAL ANIL Normal [facility] Comment on above: Performed By: #### 6 30-4 #### [facility] ([id number]) [address], [address] [place] [address] BASIC METABOLIC PANLon 12-01 Anion gap [Moles/Vol] 6 mmol/L Normal 5-15 [facility] Comment on above: Performed By: #### C BCA, BMP, , 2776-07 #### [facility] ([id number]) [address], [address] [place] [address] Calcium [Mass/Vol] 8.0 mg/dL Low 8.5-10.5 [facility] Comment on above: Performed By: #### C BCA, BMP, , 2776-07 #### [facility] ([id number]) [address], [address] [place] [address] Chloride [Moles/Vol] 104 mmol/L Normal 98-109 [facility] Comment on above: Performed By: #### C BCA, BMP, , 2776-07 #### [facility] ([id number]) [address], [address] [place] [address] CO2 [Moles/Vol] 28 mmol/L Normal 22-32 [facility] Comment on above: Performed By: #### C BCA, BMP, , 2776-07 #### [facility] ([id number]) [address], [address] [place] [address] Creatinine [Mass/Vol] 0.91 mg/dL Normal 0.60-1.30 [facility] Comment on above: Result Comment: METH OD TRACEABLE TO IDMS STANDARD Performed By: #### C JOHN, BMP, , 2776-07 #### [facility] ([id number]) [address] [address] eGFR (CKD-EPI) NON-RACE DEPENDENT >90 Normal >59 [facility] Comment on above: Result Comment: Reported eGFR is based on the CKD-EPI 2020 equation that does not use a race coefficient. Performed By: #### C JOHN, BMP, , 2776-07 #### [facility] ([id number]) [address], [address] [address] Glucose [Mass/Vol] 112 mg/dL High 65-99 [facility] Comment on above: Performed By: #### C JOHN, BMP, , 2776-07 #### [facility] ([id number]) [address] [address] Potassium [Moles/Vol] 3.8 mmol/L Normal 3.5-5.0 [facility] Comment on above: Performed By: #### C JOHN, BMP, , 2776-07 #### [facility] ([id number]) [address] [address] Sodium [Moles/Vol] 138 mmol/L Normal 134-146 [facility] Comment on above: Performed By: #### C JOHN, BMP, , 2776-07 #### [facility] ([id number]) [address] [address] Urea nitrogen [Mass/Vol] 15 mg/dL Normal 5-23 [facility] Comment on above: Performed By: #### C BCA, BMP, , 2776-07 #### [facility] ([id number]) [address] [address] CBC AND AUTO DIFFon 05-20-20 24 ABSOLUTE BASOPHIL 0.0 X10E9/L Normal 0.0-0.2 [facility] Comment on above: Performed By: #### C JOHN, BMP, , 2776-07 #### [facility] ([id number]) [address], [address] [place] [address] ABSOLUTE NEUTROPHIL 3.7 X10E9/L Normal 1.5-6.6 [facility] Comment on above: Performed By: #### C JOHN, BMP, , 2776-07 #### [facility] ([id number]) [address], [address] [place] [address] Basophils/100 WBC (Bld) 0.4 % Normal [facility] Comment on above: Performed By: #### C JOHN, BMP, , 2776-07 #### [facility] ([id number]) [address], [address] [place] [address] Eosinophils (Bld) [#/Vol] 0.2 10*3/uL Normal 0.0-0.4 [facility] Comment on above: Performed By: #### C JOHN, BMP, , 2776-07 #### [facility] ([id number]) [address], [address] [place] [address] Eosinophils/100 WBC (Bld) 3.5 % Normal [facility] Comment on above: Performed By: #### C BCA, BMP, , 2776-07 #### [facility] ([id number]) [address], [address] [place] [address] Erythrocyte distribution width (RBC) [Ratio] 12.5 % Normal 11.5-15.0 [facility] Comment on above: Performed By: #### C JOHN, BMP, , 2776-07 #### [facility] ([id number]) [address], [address] [place] [address] Hematocrit (Bld) [Volume fraction] 40.6 % Normal 39-49 [facility] Comment on above: Performed By: #### C JOHN, BMP, , 2776-07 #### [facility] ([id number]) [address], [facility] [address] [place] [address] Hemoglobin (Bld) [Mass/Vol] 13.9 g/dL Normal 13.0-17.0 [facility] Comment on above: Performed By: #### C JOHN, BMP, , 2776-07 #### [facility] ([id number]) [address], [facility] [address] [place] [address] Lymphocytes (Bld) [#/Vol] 1.5 10*3/uL Normal 1.0-3.5 [facility] Comment on above: Performed By: #### Richa LOPEZ, BMP, , 2776-07 #### [facility] ([id number]) [address], [facility] [address] [place] [address] Lymphocytes/100 WBC (Bld) 25.2 % Normal [facility] Comment on above: Performed By: #### C BCA, BMP, , 2776-07 #### [facility] ([id number]) [address], [facility] [address] [place] [address] MCH (RBC) [Entitic mass] 30.6 pg Normal 27-34 [facility] Comment on above: Performed By: #### C BCA, BMP, , 2776-07 #### [facility] ([id number]) [address], [facility] [address] [place] [address] MCHC (RBC) [Mass/Vol] 34.3 g/dL Normal 32-36 [facility] Comment on above: Performed By: #### C JOHN, BMP, , 2776-07 #### [facility] ([id number]) [address], [address] [place] [address] MCV (RBC) [Entitic vol] 89 fL Normal 80-100 [facility] Comment on above: Performed By: #### C JOHN, BMP, , 2776-07 #### [facility] ([id number]) [address], [address] [place] [address] Monocytes (Bld) [#/Vol] 0.5 10*3/uL Normal 0-0.9 [facility] Comment on above: Performed By: #### C BCA, BMP, , 2776-07 #### [facility] ([id number]) [address], [address] [place] [address] Monocytes/100 WBC (Bld) 7.9 % Normal [facility] Comment on above: Performed By: #### Richa BCA, BMP, , 2776-07 #### [facility] ([id number]) [address], [address] [place] [address] Neutrophils/100 WBC (Bld) 63.0 % Normal [facility] Comment on above: Performed By: #### Richa BCA, BMP, , 2776-07 #### [facility] ([id number]) [address], [address] [place] [address] Platelet mean volume (Bld) [Entitic vol] 7.8 fL Normal 7-12 [facility] Comment on above: Performed By: #### C BCA, BMP, , 2776-07 #### [facility] ([id number]) [address], [address] [place] [address] Platelets (Bld) [#/Vol] 193 10*3/uL Normal 150-450 [facility] Comment on above: Performed By: #### Richa BCA, BMP, , 2776-07 #### [facility] ([id number]) [address], [address] [place] [address] RBC COUNT 4.55 X10E12/L Normal 4.10-5.70 [facility] Comment on above: Performed By: #### C ALEXYS LOPEZ, , 1 #### [facility] ([id number]) [address] [address] [place] [address] WBC (Bld) [#/Vol] 5.9 10*3/uL Normal 4.0-11.0 [facility] Comment on above: Performed By: #### C ALEXYS LOPEZ, , 2776-07 #### [facility] ([id number]) [address] [address] [place] [address] MAGNESIUMon 12-02-2023 Magnesium [Mass/Vol] 1.8 mg/dL Normal 1.8-2.6 [facility] Comment on above: Performed By: #### C ALEXYS LOPEZ, , 2776-07 #### [facility] ([id number]) [address] [address] PHOSPHORUSon 12-02-2023 Phosphate [Mass/Vol] 3.2 mg/dL Normal 2.4-4.9 [facility] Comment on above: Performed By: #### ALEXYS Chaudhry BCA, , 2776-07 #### [facility] ([id number]) [address] [place] [address] Activated partial thrombopla stin time (aPTT) in platelet poor plasma by coagulation aOrdered By: Hernandez Lares on 12-01-2023 aPTT Coag (PPP) [Time] 31.9 s 25.1-36.5 [facility] Comment on above: A hematocrit value g reater than 55% may lead to inaccurate results in coagulation testing. Patients having hematocrit values >55% require a special collection tube for coagulation studies. Please contact the laboratory at [phone] for redraw instructions. Alanine aminotransferase [En zymatic activity/volume] in Serum or PlasmaOrdered By: Hernandez Lares on 12-01-2023 ALT [Catalytic activity/Vol] 21 U/L 7-52 [facility] Albumin [Mass/volume] in Ser um or Plasma by Bromocresol green (BCG) dye binding methoOrdered By: Hernandez Lares on 12-01-2023 Albumin BCG dye [Mass/Vol] 3.7 g/dL 3.5-5.7 [facility] Alkaline phosphatase [Enzyma tic activity/volume] in Serum or PlasmaOrdered By: Hernandez Lares on 12-01-2023 ALP [Catalytic activity/Vol] 89 U/L 34-104 [facility] Amorphous urine sedimentOrde red By: Hernandez Lares on 12-01-2023 Amorphous sediment LM Ql (Urine sed) See comment Negative [facility] Comment on above: Unable to obtain acc urate result due to color interference. Aspartate aminotransferase [ Enzymatic activity/volume] in Serum or PlasmaOrdered By: Hernandez Lares on 12-01-2023 AST [Catalytic activity/Vol] 20 U/L 13-39 [facility] Automated epithelial cells c ount in urine sediment (number/area)Ordered By: Hernandez Lares on 12-01-2023 Epithelial cells Auto (Urine sed) [#/Area] None seen [HPF] 0-2 [facility] Automated urine specific gra vity by refractometryOrdered By: Hernandez Lares on 12-01-2023 Specific gravity Refractometry automated (U) [Rel density] 1.010 1.001-1.030 [facility] BASIC METABOLIC PANLon 11-30 Anion gap [Moles/Vol] 6 mmol/L Normal 5-15 [facility] Comment on above: Performed By: #### C BCA BMP, , 2776-07 #### [facility] ([id number]) [address], [address] [place] [address] Calcium [Mass/Vol] 8.2 mg/dL Low 8.5-10.5 [facility] Comment on above: Performed By: #### C BCA, BMP, , 2776-07 #### [facility] ([id number]) [address], [address] [place] [address] Chloride [Moles/Vol] 104 mmol/L Normal 98-109 [facility] Comment on above: Performed By: #### C JOHN, BMP, , 2776-07 #### [facility] ([id number]) [address], [address] [place] [address] CO2 [Moles/Vol] 30 mmol/L Normal 22-32 [facility] Comment on above: Performed By: #### C JOHN, [facility], , 2776-07 #### [facility] ([id number]) [address], [address] [place] [address] Creatinine [Mass/Vol] 0.90 mg/dL Normal 0.60-1.30 [facility] Comment on above: Result Comment: METH OD TRACEABLE TO IDMS STANDARD Performed By: #### C JOHN, [facility], , 2776-07 #### [facility] ([id number]) [address], [address] [place] [address] eGFR (CKD-EPI) NON-RACE DEPENDENT >90 Normal >59 [facility] Comment on above: Result Comment: Reported eGFR is based on the CKD-EPI 2020 equation that does not use a race coefficient. Performed By: #### C JOHN, BMP, , 2776-07 #### [facility] ([id number]) [address], [address] [place] [address] Glucose [Mass/Vol] 88 mg/dL Normal 65-99 [facility] Comment on above: Performed By: #### C JOHN, BMP, , 2776-07 #### [facility] ([id number]) [address], [address] [place] [address] Potassium [Moles/Vol] 3.6 mmol/L Normal 3.5-5.0 [facility] Comment on above: Performed By: #### C BCA, BMP, , 2776-07 #### [facility] ([id number]) [address], [address] [place] [address] Sodium [Moles/Vol] 140 mmol/L Normal 134-146 [facility] Comment on above: Performed By: #### C BCA, BMP, , 2776-07 #### [facility] ([id number]) [address], [address] [place] [address] Urea nitrogen [Mass/Vol] 10 mg/dL Normal 5-23 [facility] Comment on above: Performed By: #### C JOHN, BMP, , 2776-07 #### [facility] ([id number]) [address], [address] [place] [address] Bacteria [Presence] in Urine by AutomatedOrdered By: Hernandez Lares on 12-01-2023 Bacteria Auto Ql (U) None seen [HPF] None Seen [facility] Basophils Auto (Bld) [#/Vol] Ordered By: Hernandez Lares on 12-01-2023 Basophils (Bld) [#/Vol] 0.0 10*3/uL 0.0-0.2 [facility] Basophils/100 WBC Auto (Bld) Ordered By: Hernandez Lares on 12-01-2023 Basophils/100 WBC (Bld) 0.6 % . [facility] Bilirubin Auto test strip Ql (U)Ordered By: Hernandez Lares on 12-01-2023 Bilirubin Ql (U) See comment Negative [facility] Comment on above: Unable to obtain acc urate result due to color interference. Bilirubin.total [Mass/volume ] in Serum or PlasmaOrdered By: Hernandez Lares on 12-01-2023 Bilirubin [Mass/Vol] 0.5 mg/dL 0.3-1.0 [facility] CBC AND AUTO DIFFon 12-01-19 ABSOLUTE BASOPHIL 0.0 X10E9/L Normal 0.0-0.2 [facility] Comment on above: Performed By: #### C BCA, BMP, , 2776-07 #### [facility] ([id number]) [address], [address] [place] [address] ABSOLUTE NEUTROPHIL 4.2 X10E9/L Normal 1.5-6.6 [facility] Comment on above: Performed By: #### C JOHN, BMP, , 2776-07 #### [facility] ([id number]) [address], [address] [place] [address] Basophils/100 WBC (Bld) 0.5 % Normal [facility] Comment on above: Performed By: #### C JOHN, BMP, , 2776-07 #### [facility] ([id number]) [address], [address] [place] [address] Eosinophils (Bld) [#/Vol] 0.2 10*3/uL Normal 0.0-0.4 [facility] Comment on above: Performed By: #### C JOHN, BMP, , 2776-07 #### [facility] ([id number]) [address], [address] [place] [address] Eosinophils/100 WBC (Bld) 2.8 % Normal [facility] Comment on above: Performed By: #### C JOHN, BMP, , 2776-07 #### [facility] ([id number]) [address], [address] [place] [address] Erythrocyte distribution width (RBC) [Ratio] 12.9 % Normal 11.5-15.0 [facility] Comment on above: Performed By: #### C JOHN, BMP, , 2776-07 #### [facility] ([id number]) [address], [address] [place] [address] Hematocrit (Bld) [Volume fraction] 43.1 % Normal 39-49 [facility] Comment on above: Performed By: #### C JOHN, ALEXYS, , 2776-07 #### [facility] ([id number]) [address], [address] [place] [address] Hemoglobin (Bld) [Mass/Vol] 14.9 g/dL Normal 13.0-17.0 [facility] Comment on above: Performed By: #### C JOHN, BMP, , 2776-07 #### [facility] ([id number]) [address], [address] [place] [address] Lymphocytes (Bld) [#/Vol] 1.5 10*3/uL Normal 1.0-3.5 [facility] Comment on above: Performed By: #### C JOHN, BMP, , 2776-07 #### [facility] ([id number]) [address], [address] [place] [address] Lymphocytes/100 WBC (Bld) 23.7 % Normal [facility] Comment on above: Performed By: #### C JOHN, ALEXYS, , 2776-07 #### [facility] ([id number]) [address], [address] [place] [address] MCH (RBC) [Entitic mass] 30.8 pg Normal 27-34 [facility] Comment on above: Performed By: #### Richa LOPEZ, BMP, , 2776-07 #### [facility] ([id number]) [address], [address] [place] [address] MCHC (RBC) [Mass/Vol] 34.5 g/dL Normal 32-36 [facility] Comment on above: Performed By: #### C JOHN, BMP, , 2776-07 #### [facility] ([id number]) [address], [address] [place] [address] MCV (RBC) [Entitic vol] 89 fL Normal 80-100 [facility] Comment on above: Performed By: #### C JOHN, BMP, , 2776-07 #### [facility] ([id number]) [address], [address] [place] [address] Monocytes (Bld) [#/Vol] 0.5 10*3/uL Normal 0-0.9 [facility] Comment on above: Performed By: #### C BCA, BMP, , 2776-07 #### [facility] ([id number]) [address], [address] [place] [address] Monocytes/100 WBC (Bld) 8.0 % Normal [facility] Comment on above: Performed By: #### C BCA, BMP, , 2776-07 #### [facility] ([id number]) [address], [address] [place] [address] Neutrophils/100 WBC (Bld) 65.0 % Normal [facility] Comment on above: Performed By: #### C JOHN, BMP, , 2776-07 #### [facility] ([id number]) [address], [address] [place] [address] Platelet mean volume (Bld) [Entitic vol] 7.8 fL Normal 7-12 [facility] Comment on above: Performed By: #### Richa BCA, BMP, , 2776-07 #### [facility] ([id number]) [address], [address] [place] [address] Platelets (Bld) [#/Vol] 193 10*3/uL Normal 150-450 [facility] Comment on above: Performed By: #### C BCA, BMP, , 2776-07 #### [facility] ([id number]) [address], [address] [place] [address] RBC COUNT 4.83 X10E12/L Normal 4.10-5.70 [facility] Comment on above: Performed By: #### C BCA, BMP, 510[address]-9, 277-1 #### [facility] ([id number]) [address], [address] [place] [address] WBC (Bld) [#/Vol] 6.4 10*3/uL Normal 4.0-11.0 [facility] Comment on above: Performed By: #### C BCA, BMP, , 2776-07 #### [facility] ([id number]) [address] [place] [address] Calcium [Mass/volume] in Ser um or PlasmaOrdered By: Hernandez Lares on 12-01-2023 Calcium [Mass/Vol] 8.6 mg/dL 8.6-10.3 [facility] Carbon dioxide, total [Moles /volume] in Serum or PlasmaOrdered By: Hernandez Lares on 12-01-2023 CO2 [Moles/Vol] 26.9 mmol/L 21.0-31.0 [facility] Chloride [Moles/volume] in S tito or PlasmaOrdered By: Hernandez Lares on 12-01-2023 Chloride [Moles/Vol] 105 mmol/L 98-107 [facility] Complete Blood Count Auto Di ffon 12-01-2023 Basophils (Bld) [#/Vol] 0.0 10*3/uL Normal 0.0-0.2 [facility] Comment on above: Result Comment: PERF ORMED BY: [place] [address] PATHOLOGIST [employer] HIREN KAPLAN M.D. Performed By: #### C BC, CMP #### [facility] [address] [place] [address] [place] Basophils/100 WBC (Bld) 0.6 % Normal . [facility] Comment on above: Performed By: #### C BC, CMP #### [facility] [address] [place] [address] [place] Eosinophils (Bld) [#/Vol] 0.2 10*3/uL Normal 0.0-0.45 [facility] Comment on above: Performed By: #### C BC, CMP #### [address] Eosinophils/100 WBC (Bld) 3.0 % Normal . [facility] Comment on above: Performed By: #### C BC, CMP #### [address] Erythrocyte distribution width (RBC) [Ratio] 12.9 % Normal 12.0-14.8 [facility] Comment on above: Performed By: #### C BC, CMP #### [address] Hematocrit (Bld) [Volume fraction] 43.0 % Normal 38.8-50.0 [facility] Comment on above: Performed By: #### C BC, CMP #### [address] Hemoglobin (Bld) [Mass/Vol] 14.8 g/dL Normal 13.0-17.0 [facility] Comment on above: Performed By: #### C BC, CMP #### [address] Lymphocytes (Bld) [#/Vol] 1.8 10*3/uL Normal 1.00-4.8 [facility] Comment on above: Performed By: #### C BC, CMP #### [address] Lymphocytes/100 WBC (Bld) 26.4 % Normal . [facility] Comment on above: Performed By: #### C BC, CMP #### [address] MCH (RBC) [Entitic mass] 30.8 pg Normal 27.5-35.2 [facility] Comment on above: Performed By: #### C BC, CMP #### [address] MCV (RBC) [Entitic vol] 89.5 fL Normal 83.5-101 [facility] Comment on above: Performed By: #### C BC, CMP #### [facility] [address] Mean Corpuscular HGB Conc 34.4 g/dL Normal 32.5-35.6 [facility] Comment on above: Performed By: #### C BC, CMP #### [facility] [address] [place] [address] [place] Monocytes (Bld) [#/Vol] 0.6 10*3/uL Normal 0.0-0.8 [facility] Comment on above: Performed By: #### C BC, CMP #### [facility] [address] [place] [address] [place] Monocytes/100 WBC (Bld) 18.12 % Normal 0.00-20.00 [facility] Comment on above: Performed By: #### C BC, CMP #### [facility] [address] [place] [address] [place] Monocytes/100 WBC (Bld) 8.8 % Normal . [facility] Comment on above: Performed By: #### C BC, CMP #### [facility] [address] [place] [address] [place] Neutrophils (Bld) [#/Vol] 4.1 10*3/uL Normal 1.8-7.7 [facility] Comment on above: Performed By: #### C BC, CMP #### [facility] [address] [place] [address] [place] Neutrophils/100 WBC (Bld) 61.2 % Normal . [facility] Comment on above: Performed By: #### C BC, CMP #### [facility] [address] [place] [address] [place] NRBC% 0.1 /100{WBC} Normal 0-0.5 [facility] Comment on above: Performed By: #### C BC, CMP #### [facility] [address] Platelet mean volume (Bld) [Entitic vol] 7.8 fL Normal 6.6-10.1 [facility] Comment on above: Performed By: #### C BC, CMP #### [address] Platelets (Bld) [#/Vol] 229 10*3/uL Normal 150-450 [facility] Comment on above: Performed By: #### C BC, CMP #### [address] RBC (Bld) [#/Vol] 4.80 10*6/uL Normal 3.90-5.60 [facility] Comment on above: Performed By: #### C BC, CMP #### [address] WBC (Bld) [#/Vol] 6.7 10*3/uL Normal 4.1-10.5 [facility] Comment on above: Performed By: #### C BC, CMP #### [address] Comprehensive Metabolic Pane [facility] 12-01-2023 Albumin [Mass/Vol] 3.7 g/dL Normal 3.5-5.7 [facility] Comment on above: Performed By: #### C BC, CMP #### [address] Albumin/Globulin [Mass ratio] 1.4 {ratio} Normal [facility] Comment on above: Performed By: #### C BC, CMP #### [address] ALP [Catalytic activity/Vol] 89 U/L Normal 34-104 [facility] Comment on above: Performed By: #### C BC, CMP #### [address] ALT [Catalytic activity/Vol] 21 U/L Normal 7-52 [facility] Comment on above: Performed By: #### C BC, CMP #### [address] Anion gap [Moles/Vol] 8.7 mmol/L Normal 6.0-15.0 [facility] Comment on above: Performed By: #### C BC, CMP #### [address] AST [Catalytic activity/Vol] 20 U/L Normal 13-39 [facility] Comment on above: Performed By: #### C BC, CMP #### [address] Bilirubin [Mass/Vol] 0.5 mg/dL Normal 0.3-1.0 [facility] Comment on above: Performed By: #### C BC, CMP #### [address] Calcium [Mass/Vol] 8.6 mg/dL Normal 8.6-10.3 [facility] Comment on above: Performed By: #### C BC, CMP #### [address] Chloride [Moles/Vol] 105 mmol/L Normal 98-107 [facility] Comment on above: Performed By: #### C BC, CMP #### [address] CO2 [Moles/Vol] 26.9 mmol/L Normal 21.0-31.0 [facility] Comment on above: Performed By: #### C BC, CMP #### [address] Creatinine [Mass/Vol] 0.91 mg/dL Normal 0.70-1.30 [facility] Comment on above: Performed By: #### C BC, CMP #### [address] Creatinine Clr Calc Pharmacy 127.55 Normal [facility] Comment on above: Result Comment: PERF ORMED BY: [place] [address] PATHOLOGIST [employer] HIREN KAPLAN M.D. Performed By: #### C BC, CMP #### [address] GFR/1.73 sq M.predicted MDRD (S/P/Bld) [Vol rate/Area] mL/min/{1.73_m2} Normal [facility] Comment on above: Performed By: #### C BC, CMP #### [address] Globulin (S) [Mass/Vol] 2.6 g/dL Normal [facility] Comment on above: Performed By: #### C BC, CMP #### [address] Glucose [Mass/Vol] 101 mg/dL High 70-100 [facility] Comment on above: Result Comment: [facility] Glucose Reference Range is dependent on time and content of last meal. Glucose of more than 200 mg/dL in a nonstressed, ambulatory subject supports the diagnosis of Diabetes Mellitus. ADA recommended reference range Performed By: #### C BC, CMP #### [address] Potassium [Moles/Vol] 3.6 mmol/L Normal 3.5-5.1 [facility] Comment on above: Performed By: #### C BC, CMP #### [address] Protein [Mass/Vol] 6.3 g/dL Low 6.4-8.9 [facility] Comment on above: Performed By: #### C BC, CMP #### [address] Sodium [Moles/Vol] 137 mmol/L Normal 136-145 [facility] Comment on above: Performed By: #### C BC, CMP #### [place] [address] [place] Urea nitrogen [Mass/Vol] 14 mg/dL Normal 7-25 [facility] Comment on above: Performed By: #### C BC, CMP #### [place] [address] [place] Creatinine [Mass/volume] in Serum or PlasmaOrdered By: Hernandez Lares on 12-01-2023 Creatinine [Mass/Vol] 0.91 mg/dL 0.70-1.30 [facility] Dipstick and Microscopicon 0 12-01-2023 Appearance (U) Turbid Critically abnormal Clear [facility] Comment on above: Order Comment: Name Collection Type:: Clean-Voided Midstream Performed By: #### A DDONUAPLUS, CUU #### [address] Bacteria,Urine None Seen Normal None Seen [facility] Comment on above: Order Comment: Name Collection Type:: Clean-Voided Midstream Result Comment: PERF ORMED BY: [place] [address] PATHOLOGIST [employer] HIREN KAPLAN M.D. Performed By: #### A DDONUAPLUS, CUU #### [address] Bilirubin,Urine Normal Negative [facility] Comment on above: Order Comment: Name Collection Type:: Clean-Voided Midstream Result Comment: Unab le to obtain accurate result due to color interference. Performed By: #### A DDONUAPLUS, CUU #### [address] Color (U) Red Critically abnormal Yellow [facility] Comment on above: Order Comment: Name Collection Type:: Clean-Voided Midstream Performed By: #### A DDONUAPLUS, CUU #### [address] Glucose Ql (U) Normal Normal [facility] Comment on above: Order Comment: Name Collection Type:: Clean-Voided Midstream Result Comment: Unab le to obtain accurate result due to color interference. Performed By: #### A DDONUAPLUS, CUU #### [place] [address] [place] Ketones Ql (U) Normal Negative [facility] Comment on above: Order Comment: Name Collection Type:: Clean-Voided Midstream Result Comment: Unab le to obtain accurate result due to color interference. Performed By: #### A DDONUAPLUS, CUU #### [place] [address] [place] Leukocyte esterase Test strip Ql (U) Normal Negative [facility] Comment on above: Order Comment: Name Collection Type:: Clean-Voided Midstream Result Comment: Unab le to obtain accurate result due to color interference. Performed By: #### A DDONUAPLUS, CUU #### [facility] [address] Nitrite,Urine Normal Negative [facility] Comment on above: Order Comment: Name Collection Type:: Clean-Voided Midstream Result Comment: Unab le to obtain accurate result due to color interference. Performed By: #### A DDONUAPLUS, CUU #### [address] Occult Blood,Urine Normal Negative [facility] Comment on above: Order Comment: Name Collection Type:: Clean-Voided Midstream Result Comment: Unab le to obtain accurate result due to color interference. Performed By: #### A DDONUAPLUS, CUU #### [place] [address] [place] pH,Urine Normal 5.0-9.0 [facility] Comment on above: Order Comment: Name Collection Type:: Clean-Voided Midstream Result Comment: Unab le to obtain accurate result due to color interference. Performed By: #### A DDONUAPLUS, CUU #### [place] [address] [place] Protein,Urine Normal Negative [facility] Comment on above: Order Comment: Name Collection Type:: Clean-Voided Midstream Result Comment: Unab le to obtain accurate result due to color interference. Performed By: #### A DDONUAPLUS, CUU #### [place] [address] [place] RBC,Urine Innumerable High 0-4 [facility] Comment on above: Order Comment: Name Collection Type:: Clean-Voided Midstream Performed By: #### A DDONUAPLUS, CUU #### [place] [id number] [place] Specificy [place],Urine 1.010 Normal 1.001-1.030 [facility] Comment on above: Order Comment: Name Collection Type:: Clean-Voided Midstream Performed By: #### A DDONUAPLUS, CUU #### [facility] [address] [place] [address] Squamous Epithelial Cell,Urine None Seen Normal 0-2 [facility] Comment on above: Order Comment: Name Collection Type:: Clean-Voided Midstream Performed By: #### A DDONUAPLUS, CUU #### [facility] [address] [place] [address] Urobilinogen,Urine Normal Normal [facility] Comment on above: Order Comment: Name Collection Type:: Clean-Voided Midstream Result Comment: Unab le to obtain accurate result due to color interference. Performed By: #### A DDONUAPLUS, CUU #### [address] WBC,Urine 1-2 Normal 0-4 [facility] Comment on above: Order Comment: Name Collection Type:: Clean-Voided Midstream Performed By: #### A DDONUAPLUS, CUU #### [address] Eosinophils Auto (Bld) [#/Vo l]Ordered By: Hernandez Lares on 12-01-2023 Eosinophils (Bld) [#/Vol] 0.2 10*3/uL 0.0-0.45 [facility] Eosinophils/100 WBC Auto (Bl d)Ordered By: Hernandez Lares on 12-01-2023 Eosinophils/100 WBC (Bld) 3.0 % . [facility] Erythrocyte distribution wid th Auto (RBC) [Ratio]Ordered By: Hernandez Lares on 12-01-2023 Erythrocyte distribution width (RBC) [Ratio] 12.9 % 12.0-14.8 [facility] Erythrocytes [#/area] in Uri ne sediment by Automated countOrdered By: Hernandez Lares on 12-01-2023 RBC Auto (Urine sed) [#/Area] Innumerable [HPF] 0-4 [facility] Globulin Calc (S) [Mass/Vol] Ordered By: Hernandez Lares on 12-01-2023 Globulin (S) [Mass/Vol] 2.6 g/dL [facility] Glucose [Mass/volume] in Ser um or PlasmaOrdered By: Hernandez Lares on 12-01-2023 Glucose [Mass/Vol] 101 mg/dL 70-100 [facility] Comment on above: ADA recommended refe rence rangeRandom Glucose Reference Range is dependent on time and content of last meal. Glucose of more than 200 mg/dL in a nonstressed, ambulatory subject supports the diagnosis of Diabetes Mellitus. Hematocrit Auto (Bld) [Volum e fraction]Ordered By: Hernandez Lares on 12-01-2023 Hematocrit (Bld) [Volume fraction] 43.0 % 38.8-50.0 [facility] Hemoglobin [Mass/volume] in BloodOrdered By: Hernandez Lares on 12-01-2023 Hemoglobin (Bld) [Mass/Vol] 14.8 g/dL 13.0-17.0 [facility] INR in Platelet poor plasma by Coagulation assayOrdered By: Hernandez Lares on 12-01-2023 INR Coag (PPP) [Relative time] 1.0 {INR} [facility] Comment on above: INR Therapeutic Rang e [...] Ketones (U) [Mass/Vol] See comment Negative [facility] Comment on above: Unable to obtain acc urate result due to color interference. Leukocytes [#/area] in Urine sediment by Automated countOrdered By: Hernandez Lares on 12-01-2023 WBC Auto (Urine sed) [#/Area] 1-2 [HPF] 0-4 [facility] Leukocytes [#/volume] correc pooja for nucleated erythrocytes in Blood by Automated counOrdered By: Hernandez Lares on 12-01-2023 WBC corrected for nucl RBC Auto (Bld) [#/Vol] 6.7 10*3/uL 4.1-10.5 [facility] Lymphocytes Auto (Bld) [#/Vo l]Ordered By: Hernandez Lares on 12-01-2023 Lymphocytes (Bld) [#/Vol] 1.8 10*3/uL 1.00-4.8 [facility] Lymphocytes/100 WBC Auto (Bl d)Ordered By: Hernandez Lares on 12-01-2023 Lymphocytes/100 WBC (Bld) 26.4 % . [facility] MAGNESIUMon 12-01-2023 Magnesium [Mass/Vol] 1.9 mg/dL Normal 1.8-2.6 [facility] Comment on above: Performed By: #### C BCA, BMP, 71563-1, 2777-1 #### [facility] ([id number]) [address] [place] [address], [address] [place] [address] MCH Auto (RBC) [Entitic mass ]Ordered By: Hernandez Lares on 12-01-2023 MCH (RBC) [Entitic mass] 30.8 pg 27.5-35.2 [facility] MCHC Auto (RBC) [Mass/Vol]Or dered By: Hernandez Lares on 12-01-2023 MCHC (RBC) [Mass/Vol] 34.4 g/dL 32.5-35.6 [facility] MCV Auto (RBC) [Entitic vol] Ordered By: Hernandez Lares on 12-01-2023 MCV (RBC) [Entitic vol] 89.5 fL 83.5-101 [facility] Monocyte distribution width [Entitic volume] in Blood by AutomatedOrdered By: Hernandez Lares on 12-01-2023 Monocyte distribution width Auto (Bld) [Entitic vol] 18.12 % 0.00-20.00 [facility] Monocytes Auto (Bld) [#/Vol] Ordered By: Hernandez Lares on 12-01-2023 Monocytes (Bld) [#/Vol] 0.6 10*3/uL 0.0-0.8 [facility] Monocytes/100 WBC Auto (Bld) Ordered By: Hernandez Lares on 12-01-2023 Monocytes/100 WBC (Bld) 8.8 % . [facility] Neutrophils Auto (Bld) [#/Vo l]Ordered By: Hernandez Lares on 12-01-2023 Neutrophils (Bld) [#/Vol] 4.1 10*3/uL 1.8-7.7 [facility] Neutrophils/100 WBC Auto (Bl d)Ordered By: Hernandez Lares on 12-01-2023 Neutrophils/100 WBC (Bld) 61.2 % . [facility] No Panel InformationOrdered By: Hernandez Lares on 12-01-2023 Estimated GFR (CKD-EPI) > 60.0 mL/Min [facility] Creatinine Clearance (Chem 127.55 [facility] Nucleated erythrocytes [Pres ence] in Blood by Automated countOrdered By: Hernandez Lares on 12-01-2023 Nucleated RBC Auto Ql (Bld) 0.1 /100{WBC} 0-0.5 [facility] PHOSPHORUSon 12-01-2023 Phosphate [Mass/Vol] 3.3 mg/dL Normal 2.4-4.9 [facility] Comment on above: Performed By: #### C BCA, BMP, 45846-6, 2777-1 #### [facility] ([id number]) [address], [address] [place] [address] Partial Thromboplastin Timeo n 12-01-2023 aPTT Coag (Bld) [Time] 31.9 s Normal 25.1-36.5 [facility] Comment on above: Order Comment: REDRA W: PRIOR SAMPLE QNS Result Comment: A he matocrit value greater than 55% may lead to inaccurate results in coagulation testing. Patients having hematocrit values >55% require a special collection tube for coagulation studies. Please contact the laboratory at [phone] for redraw instructions. PERFORMED BY: [address] [place] [address] PATHOLOGIST W[employer]T ST[employer]ANER HIREN KAPLAN M.D. Performed By: #### P TT, PT #### [place] [id number] [facility] Platelet mean volume Auto (B ld) [Entitic vol]Ordered By: Hernandez Lares on 12-01-2023 Platelet mean volume (Bld) [Entitic vol] 7.8 fL 6.6-10.1 [facility] Platelets Auto (Bld) [#/Vol] Ordered By: Hernandez Lares on 12-01-2023 Platelets (Bld) [#/Vol] 229 10*3/uL 150-450 [facility] Potassium [Moles/volume] in Serum or PlasmaOrdered By: Hernandez Lares on 12-01-2023 Potassium [Moles/Vol] 3.6 mmol/L 3.5-5.1 [facility] Protein Auto test strip (U) [Mass/Vol]Ordered By: Hernandez Lares on 12-01-2023 Protein (U) [Mass/Vol] See comment Negative [facility] Comment on above: Unable to obtain acc urate result due to color interference. Protein [Mass/volume] in Ser um or PlasmaOrdered By: Hernandez Lares on 12-01-2023 Protein [Mass/Vol] 6.3 g/dL 6.4-8.9 [facility] Prothrombin Time INRon 11-30 INR Coag (PPP) [Relative time] 1.0 {INR} Normal [facility] Comment on above: Order Comment: [...] Performed By: #### P TT, PT #### [facility] [address] [place] [address] PT Coag (PPP) [Time] 11.9 s Normal 9.0-12.9 [facility] Comment on above: Order Comment: REDRA W: PRIOR SAMPLE QNS Result Comment: A he matocrit value greater than 55% may lead to inaccurate results in coagulation testing. Patients having hematocrit values >55% require a special collection tube for coagulation studies. Please contact the laboratory at [phone] for redraw instructions. Performed By: #### P TT, PT #### [facility] [id number] [facility] Prothrombin time (PT)Ordered By: Hernandez Lares on 12-01-2023 PT Coag (PPP) [Time] 11.9 s 9.0-12.9 [facility] Comment on above: A hematocrit value g reater than 55% may lead to inaccurate results in coagulation testing. Patients having hematocrit values >55% require a special collection tube for coagulation studies. Please contact the laboratory at [phone] for redraw instructions. RBC Auto (Bld) [#/Vol]Ordere d By: Hernandez Lares on 12-01-2023 RBC (Bld) [#/Vol] 4.80 10*6/uL 3.90-5.60 [facility] Serum or plasma albumin/glob ulin mass ratioOrdered By: Hernandez Lares on 12-01-2023 Albumin/Globulin [Mass ratio] 1.4 {ratio} [facility] Serum or plasma anion gap de terminationOrdered By: Hernandez Lares on 12-01-2023 Anion gap [Moles/Vol] 8.7 mmol/L 6.0-15.0 [facility] Sodium [Moles/volume] in Ser um or PlasmaOrdered By: Hernandez Lares on 12-01-2023 Sodium [Moles/Vol] 137 mmol/L 136-145 [facility] Urea nitrogen [Mass/volume] in Serum or PlasmaOrdered By: Hernandez Lares on 12-01-2023 Urea nitrogen [Mass/Vol] 14 mg/dL 7-25 [facility] Urine Cultureon 12-01-2023 Bacteria identified Cx Nom (U) No Growth 2 Days PERFORMED BY: [place] [address] PATHOLOGIST WELT STITCH CLEANER HIREN KAPLAN M.D. Normal [facility] Comment on above: Performed By: #### A RICKEY ESPARZA #### [address] Urine appearanceOrdered By: Hernandez Lares on 12-01-2023 Appearance (U) Turbid Clear [facility] Urine colorOrdered By: Mary Lares on 12-01-2023 Color (U) Red Yellow [facility] Urine glucose measurement by automated test strip (mass/volume)Ordered By: Hernandez Lares on 12-01-2023 Glucose Auto test strip (U) [Mass/Vol] See comment [facility] Comment on above: Unable to obtain acc urate result due to color interference. Urine leukocyte esterase det ection by automated test stripOrdered By: Hernandez Lares on 12-01-2023 Leukocyte esterase Auto test strip Ql (U) See comment Negative [facility] Comment on above: Unable to obtain acc urate result due to color interference. Urine nitrite detection by a utomated test stripOrdered By: Hernandez Lares on 12-01-2023 Nitrite Auto test strip Ql (U) See comment Negative [facility] Comment on above: Unable to obtain acc urate result due to color interference. Urobilinogen Test strip (U) [Mass/Vol]Ordered By: Hernandez Lares on 12-01-2023 Urobilinogen (U) [Mass/Vol] See comment [facility] Comment on above: Unable to obtain acc urate result due to color interference. WBC Auto (Bld) [#/Vol]Ordere d By: Hernandez Lares on 12-01-2023 WBC (Bld) [#/Vol] 6.7 10*3/uL 4.1-10.5 [facility] pH Auto test strip (U)Ordere d By: Hernandez Lares on 12-01-2023 pH (U) See comment 5.0-9.0 [facility] Comment on above: Unable to obtain acc [...] Diaz MD on 11/22/2023 9:16 PM Normal [facility] Cytologyon 11-13-2023 Cytology Normal [facility] Comment on above: Result Comment: [facility] [address] [place] [address] Cytology Consultation Patient Name:RENO ABREU:1970 (Age: 52)Gender:MTaken:11/13/2023eported:11/15/2023 16:54Physician(s):Lida Suh M.D. ([phone])Copy To: Rec. #:[id number]: #[id number] Final Cytologic Diagnosis Urine: Negative for high-grade urothelial cell carcinoma. nxk/11/15/2023 Interpretation performed at [facility], [address] [place] [address], License number: [id number].Electronically Signed Out By Álvaro Yanez MD Clinical History Malignant neoplasm of overlapping sites of bladder (CMS-HCC) (C67.8). History of low grade urothelial cancer. Gross Description Received was 50 mL of yellow fluid in preservative labeled as [place], urine, clean catch midstream . 40 mL used for Cytology. See UroVysion report. Source of Specimen Urine Non WASTE MACHINE OFFBEARER ThinPrep Fee Code(s): 1; 89809 Reference Lab Test IDon 05-0 UROVYSION FOR BLADDER CANCER SEE COMMENTS 11/21/2023 08:19 AM Normal [facility] Comment on above: Result Comment: NOTE [...] and a locus specific probe for 9p21 ([employer] [place], [place]). This test has been modified from the time checker's instructions. Its performance characteristics were determined by [facility] in a manner consistent with CLIA requirements. This test has not been cleared or approved by the U.S. Food and Drug Administration. Reason for Referral Evaluate for urothelial carcinoma. Specimen Varies Source Urine, NOS Released By Adrianna Proctor M.D. Test Performed by: [place] [address] Parole Officer: Bear Mares M.D. Ph.D.; CLIA# [id number] URINE CULTUREon 11-13-2023 Bacteria identified Cx Nom (U) CULTURE RESULTS NO GROWTH AT <1000 CFU/mL Normal [facility] Comment on above: Performed By: #### 6 -4 #### [facility] ([id number]) [address] [place] [address], [address] [place] [address] Surgical Pathologyon 024 Surgical Pathology Normal [facility] Comment on above: Result Comment: [facility] [address] [place] [address] Surgical Pathology Consultation Patient Name:RENO ABREU:1970 (Age: 52)Gender:MTaken:4Reported:11/01/2023hysician(s):Stephanie Suh M.D. ([phone])Copy To: Rec. #:[id number]: #[id number] Final Pathologic Diagnosis Bladder, TURB: Non-invasive PAPILLARY UROTHELIAL CARCINOMA, low grade. Muscularis propria is present. No invasion into the lamina propria or muscularis propria identified. Report Electronically Signed Out cjb/11/01/2023vanessa Partida MD Interpretation performed at [facility], [address] [place] [address], License number: [id number]. Clinical History Hematuria, microscopic. Bladder tumor, lateral to the right ureteral orifice. Gross Description Received in formalin labeled BRAYD, bladder are 8 mosqueda irregular fragments of soft tissue, ranging from 0.2 to 0.6 cm in greatest dimension. Filtered and submitted in a single cassette. (1, ns, [id number], m6) [facility]/10/30/2023O Specimen(s) Received Bladder tumor lateral to the right ureteral orifice Fee Codes(s): 1; 97782 Prostate specific Ag [Mass/V ol]on 10-17-2023 PROSTATIC SPEC ANT 2.43 ng/mL Normal 0.00-4.00 [facility] Comment on above: Result Comment: The method used for this test is Tomas Wacissa DXI chemiluminescent immunoassay. Values obtained by different assay methods cannot be used interchangeably. Performed By: #### 2 857-1 #### [facility] ([id number]) [address] [place] [address], [address] [place] [address] URINALYSISon 10-17-2023 Bilirubin Ql (U) Negative Normal NEG [facility] BLOOD/HGB Trace Abnormal NEG [facility] Color (U) YELLOW Normal YELLOW [facility] Glucose Ql (U) Negative Normal NEG [facility] Ketones Ql (U) Negative Normal NEG [facility] Leukocyte esterase Test strip Ql (U) Negative Normal NEG [facility] Nitrite Ql (U) Negative Normal NEG [facility] pH (U) 6.0 [pH] Normal 5.0-8.5 [facility] Protein Ql (U) Trace Abnormal NEG [facility] R.B.CELLS <1 Normal 0-5 [facility] Specific gravity (U) [Rel density] 1.020 Normal 1.003-1.035 [facility] TURBIDITY CLEAR Normal CLEAR [facility] Urobilinogen (U) [Mass/Vol] mg/dL Normal <1.1 [facility] W.B.CELLS 3 /hpf Normal 0-5 [facility] URINE CULTUREon 10-17-2023 Bacteria identified Cx Nom (U) CULTURE RESULTS <10,000 ORGANISMS/ML NORMAL URO GENITAL ANIL Normal [facility] Comment on above: Performed By: #### 6 30-4 #### [facility] ([id number]) [address], [address] [place] [address] CT UROGRAMon 10-01-[address] UROGRAM [...] Alcala MD on 10/01/2023 1:03 PM Normal [facility] Cytologyon 09-04-2023 Cytology Normal [facility] Comment on above: Result Comment: [facility] [address] [place] [address] Cytology Consultation Patient Name:EBER ABREUOB:1970 (Age: 52)Gender:MTaken:4Reported:09/06/2023 18:36Physician(s):Lida Suh M.D. ([phone])Copy To: Rec. #:[id number]: #[id number] Final Cytologic Diagnosis Urine: Negative for high-grade urothelial cell carcinoma. ssi/09/06/2023 Interpretation [place] [address], License number: [id number].Electronically Signed Out By Brandt Rosas M.D. Clinical History Hematuria, microscopic (R31.29). Gross Description Received was 70 mL of yellow fluid unfixed labeled as [place], urine . CytoLyt added in lab. Source of Specimen Urine Non WASTE MACHINE OFFBEARER ThinPrep Fee Code(s): 1; 43261 BOX TEST SENT OUTon 09-19-19 23 SENT TO REF LAB 09/18/2022 Normal [facility] Comment on above: Performed By: #### B OX #### [facility] [address] [address] [address] Pablo Blanchard Aspartate aminotransferase [ Enzymatic activity/volume] in Serum or PlasmaOrdered By: Hernandez Lares on 09-04-2022 AST [Catalytic activity/Vol] 22 U/L 10-42 [facility] Automated erythrocytes count in urine sediment (number/area)Ordered By: Hernandez Lares on 09-04-2022 RBC Auto (Urine sed) [#/Area] 3-4 [HPF] 0-4 [facility] Automated leukocytes count i n urine sediment (number/area)Ordered By: Hernandez Lares on 09-04-2022 WBC Auto (Urine sed) [#/Area] 3-4 [HPF] 0-4 [facility] Basophils Auto (Bld) [#/Vol] Ordered By: Hernandez Lares on 09-04-2022 Basophils (Bld) [#/Vol] 0.1 10*3/uL 0.0-0.2 [facility] Basophils/100 WBC Auto (Bld) Ordered By: Hernandez Lares on 09-04-2022 Basophils/100 WBC (Bld) 0.7 % . [facility] Bilirubin Test strip Ql (U)O rdered By: Hernandez Lares on 09-04-2022 Bilirubin Ql (U) Negative Negative [facility] Body fluid albumin measureme nt (mass/volume)Ordered By: Hernandez Lares on 09-04-2022 Albumin (Body fld) [Mass/Vol] 3.6 g/dL 3.2-5.5 [facility] COVID CepheidOrdered By: Chapo Lares on 09-04-2022 SARS-CoV-2 (COVID-19) Ab IA Ql Negative Negative [facility] Comment on above: This is a duplicate Cepheid Xpert Xpress CoV-2/Flu/RSV Plus RNA by RT-PCR result to be used for statistical tracking purpose only. SARS-CoV-2 (COVID-19) RNA NANCIE+probe Ql (Unsp spec) [facility] SARS-CoV-2 (COVID-19) RNA NANCIE+probe Ql (Unsp spec) [facility] Color Auto (U)Ordered By: Brandon Lares on 09-04-2022 Color (U) Yellow Yellow [facility] Creatine kinase [Enzymatic a ctivity/volume] in Serum or PlasmaOrdered By: Hernandez Lares on 09-04-2022 CK [Catalytic activity/Vol] 72 U/L 22-269 [facility] Creatine kinase.MB [Mass/vol ume] in Serum or PlasmaOrdered By: Hernandez Lares on 09-04-2022 CK.MB [Mass/Vol] 0.7 ng/mL 0.6-6.3 [facility] Creatinine and Glomerular fi ltration rate.predicted panel (S/P/Bld)Ordered By: Hernandez Lares on 09-04-2022 Creatinine [Mass/Vol] 1.01 mg/dL 0.64-1.27 [facility] Eosinophils Auto (Bld) [#/Vo l]Ordered By: Hernandez Lares on 09-04-2022 Eosinophils (Bld) [#/Vol] 0.2 10*3/uL 0.0-0.45 [facility] Eosinophils/100 WBC Auto (Bl d)Ordered By: Hernandez Lares on 09-04-2022 Eosinophils/100 WBC (Bld) 2.5 % . [facility] Erythrocyte distribution wid th Auto (RBC) [Ratio]Ordered By: Hernandez Lares on 09-04-2022 Erythrocyte distribution width (RBC) [Ratio] 13.1 % 12.0-14.8 [facility] Estimated glomerular filtrat ion rate (GFR) non- AmericanOrdered By: Hernandez Lares on 09-04-2022 GFR/1.73 sq M.predicted among non-blacks MDRD (S/P/Bld) [Vol rate/Area] > 60 mL/Min [facility] Globulin Calc (S) [Mass/Vol] Ordered By: Hernandez Lares on 09-04-2022 Globulin (S) [Mass/Vol] 2.9 g/dL [facility] Hematocrit Auto (Bld) [Volum e fraction]Ordered By: Hernandez Lares on 09-04-2022 Hematocrit (Bld) [Volume fraction] 45.8 % 38.8-50.0 [facility] Hemoglobin [Mass/volume] in BloodOrdered By: Hernandez Lares on 09-04-2022 Hemoglobin (Bld) [Mass/Vol] 15.6 g/dL 13.0-17.0 [facility] Ketones Auto test strip (U) [Mass/Vol]Ordered By: Hernandez Lares on 09-04-2022 Ketones (U) [Mass/Vol] Trace Negative [facility] - UrinalysisOrder ed By: Hernandez Lares on 09-04-2022 Hyaline casts LM Ql (Urine sed) None seen [LPF] 0-8 [facility] Leukocytes [#/volume] correc pooja for nucleated erythrocytes in Blood by Automated counOrdered By: Hernandez Lares on 09-04-2022 WBC corrected for nucl RBC Auto (Bld) [#/Vol] 8.2 10*3/uL 4.1-10.5 [facility] Lymphocytes Auto (Bld) [#/Vo l]Ordered By: Hernandez Lares on 09-04-2022 Lymphocytes (Bld) [#/Vol] 2.2 10*3/uL 1.00-4.8 [facility] Lymphocytes/100 WBC Auto (Bl d)Ordered By: Hernandez Lares on 09-04-2022 Lymphocytes/100 WBC (Bld) 26.2 % . [facility] MCH Auto (RBC) [Entitic mass ]Ordered By: Hernandez Lares on 09-04-2022 MCH (RBC) [Entitic mass] 30.7 pg 27.5-35.2 [facility] MCHC Auto (RBC) [Mass/Vol]Or dered By: Hernandez Lares on 09-04-2022 MCHC (RBC) [Mass/Vol] 34.1 g/dL 32.5-35.6 [facility] MCV Auto (RBC) [Entitic vol] Ordered By: Hernandez Lares on 09-04-2022 MCV (RBC) [Entitic vol] 89.9 fL 83.5-101 [facility] Monocyte distribution width [Entitic volume] in Blood by AutomatedOrdered By: Hernandez Lares on 09-04-2022 Monocyte distribution width Auto (Bld) [Entitic vol] 16.89 % 0.00-20.00 [facility] Monocytes Auto (Bld) [#/Vol] Ordered By: Hernandez Lares on 09-04-2022 Monocytes (Bld) [#/Vol] 0.7 10*3/uL 0.0-0.8 [facility] Monocytes/100 WBC Auto (Bld) Ordered By: Hernandez Lares on 09-04-2022 Monocytes/100 WBC (Bld) 8.1 % . [facility] Neutrophils Auto (Bld) [#/Vo l]Ordered By: Hernandez Lares on 09-04-2022 Neutrophils (Bld) [#/Vol] 5.1 10*3/uL 1.8-7.7 [facility] Neutrophils/100 WBC Auto (Bl d)Ordered By: Hernandez Lares on 09-04-2022 Neutrophils/100 WBC (Bld) 62.5 % . [facility] Nitrite Test strip Ql (U)Ord ered By: Hernandez Lares on 09-04-2022 Nitrite Ql (U) Negative Negative [facility] No Panel InformationOrdered By: eHrnandez Lares on 09-04-2022 Estimated GFR () > 60 mL/Min [facility] Comment on above: GFR estimated refere nce range: According to KDOQI guidelines, <60 ml/min/1.73m2 is sufficient to diagnose a patient with chronic kidney disease. Pharmacy Creatinine Clearance (Chem 116.51 [facility] Nucleated erythrocytes [Pres ence] in Blood by Automated countOrdered By: Hernandez Lares on 09-04-2022 Nucleated RBC Auto Ql (Bld) 0.1 /100{WBC} 0-0.5 [facility] Platelet mean volume Auto (B ld) [Entitic vol]Ordered By: Hernandez Lares on 09-04-2022 Platelet mean volume (Bld) [Entitic vol] 7.8 fL 6.6-10.1 [facility] Platelets Auto (Bld) [#/Vol] Ordered By: Hernandez Lares on 09-04-2022 Platelets (Bld) [#/Vol] 224 10*3/uL 150-450 [facility] Protein Auto test strip (U) [Mass/Vol]Ordered By: Hernandez Lares on 09-04-2022 Protein (U) [Mass/Vol] 100 mg/dL Negative [facility] Protein [Mass/volume] in Ser um or PlasmaOrdered By: Hernandez Lares on 09-04-2022 Protein [Mass/Vol] 6.5 g/dL 6.1-7.9 [facility] RBC Auto (Bld) [#/Vol]Ordere d By: Hernandez Lares on 09-04-2022 RBC (Bld) [#/Vol] 5.09 10*6/uL 3.90-5.60 [facility] Serum or plasma alanine storey otransferase measurement without P-5'-P (enzymatic activiOrdered By: Hernandez Lares on 09-04-2022 ALT No additional P-5'-P [Catalytic activity/Vol] 26 U/L 10-60 [facility] Serum or plasma albumin/glob ulin mass ratioOrdered By: Hernandez Lares on 09-04-2022 Albumin/Globulin [Mass ratio] 1.2 {ratio} [facility] Serum or plasma alkaline alexandro sphatase measurement (enzymatic activity/volume)Ordered By: Hernandez Lares on 09-04-2022 ALP [Catalytic activity/Vol] 85 U/L 32-92 [facility] Serum or plasma anion gap de terminationOrdered By: Hernandez Lares on 09-04-2022 Anion gap [Moles/Vol] 15.6 mmol/L 6.0-15.0 [facility] Serum or plasma calcium angie urement (mass/volume)Ordered By: Hernandez Lares on 09-04-2022 Calcium [Mass/Vol] 8.8 mg/dL 8.2-10.2 [facility] Serum or plasma chloride rocio surement (moles/volume)Ordered By: Hernandez Lares on 09-04-2022 Chloride [Moles/Vol] 101 mmol/L 95-114 [facility] Serum or plasma creatine kin ase MB (CKMB)/total creatine kinase (CK) ratio by calculaOrdered By: Hernandez Lares on 09-04-2022 CK.MB Calc [Catalytic fraction] 0.9 % 0.00-2.50 [facility] Serum or plasma glucose angie urement (mass/volume)Ordered By: Hernandez Lares on 09-04-2022 Glucose [Mass/Vol] 99 mg/dL 70-100 [facility] Comment on above: ADA recommended refe rence rangeRandom Glucose Reference Range is dependent on time and content of last meal. Glucose of more than 200 mg/dL in a nonstressed, ambulatory subject supports the diagnosis of Diabetes Mellitus. Serum or plasma potassium me asurement (moles/volume)Ordered By: Hernandez Lares on 09-04-2022 Potassium [Moles/Vol] 4.0 mmol/L 3.5-5.1 [facility] Serum or plasma sodium measu rement (moles/volume)Ordered By: Hernandez Lares on 09-04-2022 Sodium [Moles/Vol] 138 mmol/L 136-146 [facility] Serum or plasma total biliru bin measurement (mass/volume)Ordered By: Hernandez Lares on 09-04-2022 Bilirubin [Mass/Vol] 0.6 mg/dL 0.3-1.2 [facility] Serum or plasma total carbon dioxide measurement (moles/volume)Ordered By: Hernandez Lares on 09-04-2022 CO2 [Moles/Vol] 25.4 mmol/L 22.0-30.0 [facility] Serum or plasma urea nitroge n measurement (mass/volume)Ordered By: Hernandez Lares on 09-04-2022 Urea nitrogen [Mass/Vol] 13 mg/dL 9-23 [facility] Specific gravity Auto test s trip (U) [Rel density]Ordered By: Hernandez Lares on 09-04-2022 Specific gravity (U) [Rel density] 1.027 1.001-1.030 [facility] Spermatozoa detection in uri ne sediment by light microscopyOrdered By: Hernandez Lares on 09-04-2022 Spermatozoa LM Ql (Urine sed) 3-4 [HPF] 0-2 [facility] Squamous epithelial cells de tection in urine sediment by light microscopyOrdered By: Hernandez Lares on 09-04-2022 Epithelial cells.squamous LM Ql (Urine sed) None seen [HPF] 0-2 [facility] Troponin I.cardiac [Mass/vol ume] in Serum or Plasma by High sensitivity methodOrdered By: Hernandez Lares on 09-04-2022 Troponin I.cardiac High sensitivity method [Mass/Vol] < 3 pg/mL 0-20 [facility] Urine bacteria detection by automated methodOrdered By: Hernandez Lares on 09-04-2022 Bacteria Auto Ql (U) None seen None Seen [facility] Urine clarity by refractomet ry automatedOrdered By: Hernandez Lares on 09-04-2022 Clarity Refractometry automated (U) Clear Clear [facility] Urine glucose measurement by automated test strip (mass/volume)Ordered By: Hernandez Lares on 09-04-2022 Glucose Auto test strip (U) [Mass/Vol] Normal mg/dL Normal [facility] Urine hemoglobin detection b y automated test stripOrdered By: Hernandez Lares on 09-04-2022 Hemoglobin Auto test strip Ql (U) Negative Negative [facility] Urine leukocyte esterase det ection by automated test stripOrdered By: Hernandez Lares on 09-04-2022 Leukocyte esterase Auto test strip Ql (U) Negative Negative [facility] Urobilinogen Auto test strip (U) [Mass/Vol]Ordered By: Hernandez Lares on 09-04-2022 Urobilinogen (U) [Mass/Vol] Normal mg/dL Normal [facility] WBC Auto (Bld) [#/Vol]Ordere d By: Hernandez Lares on 09-04-2022 WBC (Bld) [#/Vol] 8.2 10*3/uL 4.1-10.5 [facility] pH Auto test strip (U)Ordere d By: Hernandez Lares on 09-04-2022 pH (U) 6.0 [pH] 5.0-9.0 [facility] CBC AUTO DIFFon 03-08-2022 BASO # 0.0 103/ul Normal 0.0-0.1 [facility] Comment on above: Performed By: #### C BC #### [facility] [address] [address] [address] Pablo Blanchard Basophils/100 WBC (Bld) 0.4 % Normal 0.2-2.0 [facility] Comment on above: Performed By: #### C BC #### [facility] [address] [place] [address] Dr. Pablo Blanchard EO # 0.2 103/ul Normal 0.0-0.7 [facility] Comment on above: Performed By: #### C BC #### [facility] [address] [place] [address] Dr. Pablo Blanchard Eosinophils/100 WBC (Bld) 2.5 % Normal 0.9-7.0 [facility] Comment on above: Performed By: #### C BC #### [facility] [address] [place] [address] Dr. Pablo Blanchard Erythrocyte distribution width (RBC) [Ratio] 12.2 % Normal 11.0-15.0 [facility] Comment on above: Performed By: #### C BC #### [facility] [address] [place] [address] Dr. Pablo Blanchard Hematocrit (Bld) [Volume fraction] 49.2 % Normal 42.0-54.0 [facility] Comment on above: Performed By: #### C BC #### [facility] [address] [place] [address] Dr. Pablo Blanchard Hemoglobin (Bld) [Mass/Vol] 16.1 g/dL Normal 14.0-18.0 [facility] Comment on above: Performed By: #### C BC #### [facility] [address] [place] [address] Dr. Pablo Blanchard IG # 0.03 10e3/ul Normal 0.00-0.03 [facility] Comment on above: Performed By: #### C BC #### [facility] [address] [place] [address] Dr. Pablo Blanchard IG % 0.4 % Normal 0.0-0.5 [facility] Comment on above: Performed By: #### C BC #### [facility] [address] [place] [address] Dr. Pablo Blanchard LYMPH # 1.5 103/ul Normal 1.2-3.8 [facility] Comment on above: Performed By: #### C BC #### [facility] [address] [place] [address] Dr. Pablo Blanchard Lymphocytes/100 WBC (Bld) 20.1 % Critically low 20.5-60.0 [facility] Comment on above: Performed By: #### C BC #### [facility] [address] [place] [address] Dr. Pablo Blanchard MANUAL DIFF REQ NO Normal [facility] Comment on above: Performed By: #### C BC #### [facility] [address] [place] [address] Dr. Pablo Blanchard MCH (RBC) [Entitic mass] 30.4 pg Normal 25.9-34.0 [facility] Comment on above: Performed By: #### C BC #### [facility] [address] [place] [address] Dr. Pablo Blanchard MCHC (RBC) [Mass/Vol] 32.7 g/dL Normal 29.9-35.2 [facility] Comment on above: Performed By: #### C BC #### [facility] [address] [place] [address] Dr. Pablo Blanchard MCV (RBC) [Entitic vol] 92.8 fL Normal 80.0-94.0 [facility] Comment on above: Performed By: #### C BC #### [facility] [address] [place] [address] Dr. Pablo Blanchard MONO # 0.6 103/ul Normal 0.3-0.8 [facility] Comment on above: Performed By: #### C BC #### [facility] [address] [place] [address] Dr. Pablo Blanchard Monocytes/100 WBC (Bld) 8.1 % Normal 1.7-12.0 [facility] Comment on above: Performed By: #### C BC #### [facility] [address] [place] [address] Dr. Pablo Blanchard NEUT # 5.1 103/ul Normal 1.4-6.5 [facility] Comment on above: Performed By: #### C BC #### [facility] [address] [place] [address] Dr. Pablo Blanchard Neutrophils/100 WBC (Bld) 68.5 % Normal 43.0-75.0 [facility] Comment on above: Performed By: #### C BC #### [facility] [address] [place] [address] Dr. Pablo Blanchard Platelet mean volume (Bld) [Entitic vol] 9.2 fL Critically low 9.5-13.5 [facility] Comment on above: Performed By: #### C BC #### [facility] [address] [place] [address] Dr. Pablo Blanchard PLT 231 103/ul Normal 150-450 [facility] Comment on above: Performed By: #### C BC #### [facility] [address] [place] [address] Dr. Pablo Blanchard RBC 5.30 106/ul Normal 4.70-6.10 [facility] Comment on above: Performed By: #### C BC #### [facility] [address] [place] [address] Dr. Pablo Blanchard WBC 7.5 103/ul Normal 4.0-11.0 [facility] Comment on above: Performed By: #### C BC #### [facility] [address] [place] [address] Dr. Pablo Blanchard GLYCOHEMOGLOBIN A1Con 2021 ADA RECOMMENDATION SEE BELOW Normal [facility] Comment on above: Result Comment: ADA RECOMMENDED LIMIT 4.0 - 6.0 ADA THERAPEUTIC TARGET < 7.0 ACTION SUGGESTED > 7.0 Performed By: #### A 1C #### [facility] [address] [place] [address] Dr. Pablo Blanchard Glucose [Mass/Vol] 97 mg/dL Normal [facility] Comment on above: Performed By: #### A 1C #### [facility] [address] [place] [address] Dr. Pablo Blanchard HbA1c (Bld) [Mass fraction] 5.0 % Normal 4.5-6.2 [facility] Comment on above: Performed By: #### A 1C #### [facility] [address] [place] [address] Dr. Pablo Blanchard LIPID PROFILEon 03-08-2022 CHOL-HDL RATIO NORM SEE BELOW Normal [facility] Comment on above: Result Comment: 3.3 - 4.4 LOW RISK 4.4 - 7.1 AVERAGE RISK 7.1 - 11.0 MODERATE RISK >11.0 HIGH RISK Performed By: #### L IPID, CMP #### [facility] [address] [address] [address] Pablo Blanchard Cholesterol [Mass/Vol] 205 mg/dL Critically high <=200 [facility] Comment on above: Performed By: #### L IPID, CMP #### [facility] [address] [address] [address] Pablo Blanchard Cholesterol in HDL [Mass/Vol] 40 mg/dL Normal 40-60 [facility] Comment on above: Performed By: #### L IPID, CMP #### [facility] [address] [address] [address] Pablo Blanchard Cholesterol in LDL [Mass/Vol] 150.6 mg/dL Normal [facility] Comment on above: Performed By: #### L IPID, CMP #### [facility] [address] [address] [address] Pablo Blanchard Cholesterol.total/Chol esterol in HDL [Mass ratio] 5.1 {ratio} Normal [facility] Comment on above: Performed By: #### L IPID, CMP #### [facility] [address] [address] [address] Pablo Blanchard HDL NORMAL > or = 60 mg/dl - LO W CARDIOVASCULAR RISK <40 mg/dl - HIGH CARDIOVASCULAR RISK Normal [facility] Comment on above: Performed By: #### L IPID, CMP #### [facility] [address] [address] [address] Pablo Blanchard LDL CALC NORMAL SEE BELOW Normal [facility] Comment on above: Result Comment: <100 mg/dl OPTIMAL 100 - 129 mg/dl NEAR OR ABOVE OPTIMAL 130 - 159 mg/dl BORDERLINE HIGH 160 - 189 mg/dl HIGH >190 mg/dl VERY HIGH Performed By: #### L IPID, CMP #### [facility] [address] [address] [address] Pablo Blanchard Triglyceride [Mass/Vol] 72 mg/dL Normal <=150 [facility] Comment on above: Performed By: #### L IPID, CMP #### [facility] [address] [place] [address] Dr. Pablo Blanchard VLDL CALC 14.4 mg/dL Normal [facility] Comment on above: Performed By: #### L IPID, CMP #### [facility] [address] [address] [address] Pablo Blanchard PROF 14(COMP METB)on 022 Albumin [Mass/Vol] 3.3 g/dL Critically low 3.4-5.0 [facility] Comment on above: Performed By: #### L IPID, CMP #### [facility] [address] [place] [address] Dr. Pablo Blanchard Albumin/Globulin [Mass ratio] 1.0 {ratio} Normal [facility] Comment on above: Performed By: #### L IPID, CMP #### [facility] [address] [place] [address] Dr. Pablo Blanchard ALP [Catalytic activity/Vol] 98 U/L Normal 46-116 [facility] Comment on above: Performed By: #### L IPID, CMP #### [facility] [address] [place] [address] Dr. Pablo Blanchard ALT [Catalytic activity/Vol] 33 U/L Normal 16-63 [facility] Comment on above: Performed By: #### L IPID, CMP #### [facility] [address] [place] [address] Dr. Pablo Blanchard Anion gap [Moles/Vol] 9.4 mmol/L Normal [facility] Comment on above: Performed By: #### L IPID, CMP #### [facility] [address] [place] [address] Dr. Pablo Blanchard AST [Catalytic activity/Vol] 16 U/L Normal 15-37 [facility] Comment on above: Performed By: #### L IPID, CMP #### [facility] [address] [address] [address] Pablo Blanchard Bilirubin [Mass/Vol] 0.7 mg/dL Normal 0.2-1.0 [facility] Comment on above: Performed By: #### L IPID, CMP #### [facility] [address] [place] [address] Dr. Pablo Blanchard Calcium [Mass/Vol] 8.0 mg/dL Critically low 8.5-10.1 Th [facility] Comment on above: Performed By: #### L IPID, CMP #### [facility] [address] [place] [address] Dr. Pablo Blanchard Chloride [Moles/Vol] 104 mmol/L Normal 98-107 [facility] Comment on above: Performed By: #### L IPID, CMP #### [facility] [address] [place] [address] Dr. Pablo Blanchard CO2 [Moles/Vol] 30.5 mmol/L Normal 21.0-32.0 [facility] Comment on above: Performed By: #### L IPID, CMP #### [facility] [address] [place] [address] Dr. Pablo Blanchard Creatinine [Mass/Vol] 1.02 mg/dL Normal 0.70-1.30 [facility] Comment on above: Performed By: #### L IPID, CMP #### [facility] [address] [place] [address] Dr. Pablo Blanchard EGFR-AF TURKMEN >60 Normal >=60 [facility] Comment on above: Performed By: #### L IPID, CMP #### [facility] [address] [place] [address] Dr. Pablo Blanchard EGFR-NON AF TURKMEN >60 Normal >=60 [facility] Comment on above: Performed By: #### L IPID, CMP #### [facility] [address] [place] [address] Dr. Pablo Blanchard Globulin (S) [Mass/Vol] 3.4 g/dL Normal [facility] Comment on above: Performed By: #### L IPID, CMP #### [facility] [address] [address] [address] Pablo Blanchard Glucose [Mass/Vol] 108 mg/dL Critically high 74-106 T [facility] Comment on above: Performed By: #### L IPID, CMP #### [facility] [address] [address] [address] Pablo Blanchard Potassium [Moles/Vol] 3.9 mmol/L Normal 3.5-5.1 [facility] Comment on above: Performed By: #### L IPID, CMP #### [facility] [address] [address] [address] Pablo Blanchard Protein [Mass/Vol] 6.7 g/dL Normal 6.4-8.2 [facility] Comment on above: Performed By: #### L IPID, CMP #### [facility] [address] [place] [address] Dr. Pablo Blanchard Sodium [Moles/Vol] 140 mmol/L Normal 136-145 [facility] Comment on above: Performed By: #### L IPID, CMP #### [facility] [address] [address] [address] Pablo Blanchard Urea nitrogen [Mass/Vol] 11.0 mg/dL Normal 7.0-18.0 [facility] Comment on above: Performed By: #### L IPID, CMP #### [facility] [address] [address] [address] Pablo Blanchard Urea nitrogen/Creatinine [Mass ratio] 10.8 mg/mg Normal [facility] Comment on above: Performed By: #### L IPID, CMP #### [facility] [address] [place] [address] Dr. Pablo Blanchard UA RANDOM W/MICROSCOPICon BACTERIA NONE SEEN Normal NONE SEEN [facility] Comment on above: Performed By: #### U AMIC #### [facility] [address] [address] [address] Pablo Blanchard Bilirubin Ql (U) Negative Normal NEGATIVE [facility] Comment on above: Performed By: #### U AMIC #### [facility] [address] [address] [address] Pablo Blanchard CAST NONE SEEN Normal NONE SEEN [facility] Comment on above: Performed By: #### U AMIC #### [facility] [address] [address] [address] Pablo Blanchard Clarity (U) CLEAR Normal CLEAR [facility] Comment on above: Performed By: #### U AMIC #### [facility] [address] [address] [address] Pablo Blanchard Color (U) YELLOW Normal YELLOW [facility] Comment on above: Performed By: #### U AMIC #### [facility] [address] [place] [address] Dr. Pablo Blanchard Crystals LM Nom (Urine sed) NONE SEEN Normal NONE SEEN [facility] Comment on above: Performed By: #### U AMIC #### [facility] [address] [place] [address] Dr. Pablo Blanchard Epithelial cells LM Ql (Urine sed) FEW Abnormal NONE SEEN /RARE [facility] Comment on above: Performed By: #### U AMIC #### [facility] [address] [place] [address] Dr. Pablo Blanchard Glucose Ql (U) Negative Normal NEGATIVE [facility] Comment on above: Performed By: #### U AMIC #### [facility] [address] [place] [address] Dr. Pablo Blanchard Hemoglobin Ql (U) Negative Normal NEGATIVE [facility] Comment on above: Performed By: #### U AMIC #### [facility] [address] [place] [address] Dr. Pablo Blanchard Ketones Ql (U) Negative Normal NEGATIVE [facility] Comment on above: Performed By: #### U AMIC #### [facility] [address] [place] [address] Dr. Pablo Blanchard LEUKOCYTES Negative Normal NEGATIVE [facility] Comment on above: Performed By: #### U AMIC #### [facility] [address] [place] [address] Dr. Pablo Blanchard MUCOUS NONE SEEN Normal NONE SEEN [facility] Comment on above: Performed By: #### U AMIC #### [facility] [address] [place] [address] Dr. Pablo Blanchard Nitrite Ql (U) Negative Normal NEGATIVE [facility] Comment on above: Performed By: #### U AMIC #### [facility] [address] [place] [address] Dr. Pablo Blanchard pH (U) 6.0 [pH] Normal 5-9 [facility] Comment on above: Performed By: #### U AMIC #### [facility] [address] [place] [address] Dr. Pablo Blanchard RBC 0-2 Normal 0-2 [facility] Comment on above: Performed By: #### U AMIC #### [facility] [address] [place] [address] Dr. Pablo Blanchard SPEC GRAVITY >=1.030 Abnormal 1.005-<=1.0 25 [facility] Comment on above: Performed By: #### U AMIC #### [facility] [address] [place] [address] Dr. Pablo Blanchard UA PROTEIN Negative Normal NEGATIVE/ TRACE [facility] Comment on above: Performed By: #### U AMIC #### [facility] [address] [place] [address] Dr. Pablo Blanchard Urobilinogen Qn (U) 1.0 {Kuldeep'U}/dL Normal 0.2 - 1. 0 [facility] Comment on above: Performed By: #### U AMIC #### [facility] [address] [place] [address] Dr. Pablo Blanchard WBC NONE SEEN Normal NONE SEEN [facility] Comment on above: Performed By: #### U AMIC #### [facility] [address] [place] [address] Dr. Pablo Blanchard Covid-19 PCR ([facility])on 10-14 SARS-CoV-2 (COVID-19) RNA NANCIE+probe Ql (Unsp spec) Not detected Normal NOT DETECTED [facility] Comment on above: Result Comment: This test is not yet approved or cleared by the [place] FDA. When there are no FDA-approved or cleared tests available, and other criteria are met, FDA can make tests available under an emergency access mechanism called an Emergency Use Authorization (EUA). The EUA for this test is supported by the Evaluation Assistant of Health and Human Service's (HHS's) declaration [...] SARS-CoV-2. Performed By: #### C VDTB #### [facility] [address] [place] [address] Dr. Pablo Blanchard [facility] 02-04-2018 Creatine kinase (CK) 57 Int._Unit/L Normal 14-261 [facility] Comment on above: Performed By: #### [id number] ####[facility] [id number] [place] [address] [facility] 02-04-2018 CREATINE KINASE.MB:CCNC:PT:SER/ PLAS:QN:EIA 0.5 ng/mL Normal 0.3-4.9 [facility] Comment on above: Performed By: #### 2 [id number], [id number] ####[facility] [address] [place] [address] CREATINE KINASE.MB:CCNC:PT:SER/ PLAS:QN:EIA 0.8 ng/mL Normal 0.3-4.9 [facility] Comment on above: Performed By: #### 2 [id number], [id number], [id number] ####[facility] [address] [place] [address] CREATINE KINASE.MB:CCNC:PT:SER/ PLAS:QN:EIA 0.7 ng/mL Normal 0.3-4.9 [facility] Comment on above: Performed By: #### 2 [id number], [id number], [id number] ####[address] [place] [address] CMPon 02-04-2018 Albumin 1.2 g/dL Normal 1.1-2.2 [facility] Comment on above: Performed By: #### 2 100808, [id number] ####[address] [address] Albumin 3.6 g/dL Normal 3.3-5.0 [facility] Comment on above: Performed By: #### 2 [id number], [id number] ####[address] [address] Alkaline phosphatase (ALP) 71 Int._Unit/L Normal 21-98 [facility] Comment on above: Performed By: #### 2 913015, [id number] ####[address] [address] ALT Without P-5'-P enzyme act/vol 29 Int._Unit/L Normal 6-46 [facility] Comment on above: Performed By: #### 2 332897, [id number] ####[address] [address] Aspartate aminotransferase (AST) 29 Int._Unit/L Normal 5-43 [facility] Comment on above: Performed By: #### 2 029880, [id number] ####[address] [address] Bilirubin (total) 0.5 mg/dL Normal 0.0-1.1 [facility] Comment on above: Performed By: #### 2 176303, [id number] ####[address] [place] [address] BUN/Creatinine Ratio 16 No Units Normal 10-20 [facility] Comment on above: Performed By: #### 2 633686, [id number] ####[address] [address] [place] [address] Creatinine 1.0 mg/dL Normal 0.5-1.3 [facility] Comment on above: Performed By: #### 2 277463, [id number] ####[facility] [address] [place] [address] Globulin 2.9 g/dL Normal 1.4-4.0 [facility] Comment on above: Performed By: #### 2 794910, [id number] ####[facility] [address] [place] [address] Protein 6.5 g/dL Normal 6.0-7.8 [facility] Comment on above: Performed By: #### 2 177648, [id number] ####[facility] [address] [place] [address] Urea nitrogen 16 mg/dL Normal 5-21 [facility] Comment on above: Performed By: #### 2 526418, [id number] ####[facility] [address] [place] [address] Anion gap 14 mmol/L Normal 6-16 [facility] Comment on above: Performed By: #### 2 168255, [id number] ####[facility] [address] [place] [address] Calcium 8.8 mg/dL Low 8.9-11.1 [facility] Comment on above: Performed By: #### 2 984461, [id number] ####[facility] [address] [place] [address] Chloride 106 mmol/L Normal 101-111 [facility] Comment on above: Performed By: #### 2 015780, [id number] ####[facility] [address] [place] [address] CO2 23 mmol/L Normal 21-31 [facility] Comment on above: Performed By: #### 2 240281, [id number] ####[facility] [address] [place] [address] Glucose mass conc 86 mg/dL Normal 55-199 [facility] Comment on above: Result Comment: If t his glucose result represents a fasting glucose, interpretation should refer to the following reference range: 55-99 mg/dL Performed By: #### 2 140692, [id number] ####[facility] [address] [place] [address] Potassium molar conc 3.6 mmol/L Normal 3.5-5.3 [facility] Comment on above: Performed By: #### 2 331470, [id number] ####[facility] [address] [place] [address] Sodium 139 mmol/L Normal 135-145 [facility] Comment on above: Performed By: #### 2 730843, [id number] ####[facility] [address] [place] [address] Myoglobinon 02-04-2018 Myoglobin 18 ng/mL Normal <=69 [facility] Comment on above: Performed By: #### 2 334123, [id number], [id number], [id number], [id number], [id number] ####[facility] [address] [place] [address] Myoglobin 42 ng/mL Normal <=69 [facility] Comment on above: Performed By: #### 2 530362, [id number], [id number] ####[facility] [address] [place] [address] Myoglobin 17 ng/mL Normal <=69 [facility] Comment on above: Performed By: #### 2 340944, [id number], [id number] ####[facility] [address] [place] [address] T4 Totalon 02-04-2018 Thyroxine (T4) 9.1 microgram/dL Normal 4.6-9.1 [facility] Comment on above: Performed By: #### 2 617864, [id number] ####[facility] [address] [place] [address] TSHon 02-04-2018 Thyroid stimulating hormone (TSH) 5.61 mcIU/mL High 0.34-5.60 [facility] Comment on above: Performed By: #### 2 875308, [id number] ####[facility] [address] [place] [address] Troponinon 02-04-2018 Troponin I.cardiac mass conc ng/mL Normal <=0.03 [facility] Comment on above: Result Comment: New Troponin Assay 11/26/13ROC [place] Cutoff value > or = 0.03 ng/mL in conjunction with clinical conditions of myocardial infarction.([email or web address]) Performed By: #### 2 956369, 7827670, [id number], [id number], [id number], [id number] ####[facility] [address] [place] [address] Troponin I.cardiac mass conc ng/mL Normal <=0.03 [facility] Comment on above: Result Comment: New Troponin Assay 11/26/13ROC [place] Cutoff value > or = 0.03 ng/mL in conjunction with clinical conditions of myocardial infarction.([email or web address]) Performed By: #### 2 823674, 6697184, [id number] ####[facility] [address] [place] [address] Troponin I.cardiac mass conc ng/mL Normal <=0.03 [facility] Comment on above: Result Comment: New Troponin Assay 11/26/13ROC [place] Cutoff value > or = 0.03 ng/mL in conjunction with clinical conditions of myocardial infarction.([email or web address]) Performed By: #### 2 644563, 0707536, [id number] ####[facility] [address] [place] [address] eGFRon 02-04-2018 eGFR (black) mL/min/{1.73_m2} Normal >=59 [facility] Comment on above: Order Comment: Order added by Discern Expert. Result Comment: eGFR is race adjusted. AA=. Performed By: #### 2 037233, [id number] ####[facility] [address] [place] [address] eGFR (non-black) mL/min/{1.73_m2} Normal >=59 [facility] Comment on above: Order Comment: Order added by Discern Expert. Result Comment: Spring Assembler Supervisor sofi kidney disease could be indicated at eGFR's of less than 60 mL/min/1.73m2. Kidney failure is indicated at less than 15 mL/min/1.73m2. Performed By: #### 2 836185, [id number] ####[facility] [address] [place] [address] Vital Signs Date Time Vital Sign Value Performing Clinician Facility 07-30-2024 08:21-0500 Body height 190.5 cm Brooklynn Yeager [employer]ATIVE REH[employer] AIDE Work Phone: [facility] 07-30-2024 08:21-0500 Body mass index (BMI) [Ratio] 31.8 kg/m2 Brooklynn Yeager [employer]ORATIVE REHAB AIDE Work Phone: [facility] 07-30-2024 08:21-0500 Body temperature 97.81 [degF] Brooklynn Shobha [employer]ORATIVE REHAB AIDE Work Phone: [facility] 07-30-2024 08:21-0500 Body weight 115.39 kg Brooklynn Shobha RESTORATIVE REHAB AIDE Work Phone: [facility] 07-30-2024 08:21-0500 Diastolic blood pressure 72 mm[Hg] Brooklynn Yeager [employer]ORATIVE REHAB AIDE Work Phone: [facility] 07-30-2024 08:21-0500 Heart rate 88 /min Brooklynn Shobha RESTORATIVE REHAB AIDE Work Phone: [facility] 07-30-2024 08:21-0500 Respiratory rate 20 /min Brooklynn Shobha RESTORATIVE REHAB AIDE Work Phone: [facility] 07-30-2024 08:21-0500 SaO2% (BldA) [Mass fraction] 93 % Brooklynn Yeager RESTORATIVE REHAB AIDE Work Phone: [facility] 07-30-2024 08:21-0500 Systolic blood pressure 108 mm[Hg] Brooklynn Aichholz RESTORATIVE REHAB AIDE Work Phone: [facility] 03-30-2024 08:08-0400 Body height 186.7 cm Brooklynn Aichholz RESTORATIVE REHAB AIDE Work Phone: [facility] 03-30-2024 08:08-0400 Body mass index (BMI) [Ratio] 32.82 kg/m2 Brooklynn Aichholz RESTORATIVE REHAB AIDE Work Phone: [facility] 03-30-2024 08:08-0400 Body temperature 98.2 [degF] Brooklynn Aichholz RESTORATIVE REHAB AIDE Work Phone: [facility] 03-30-2024 08:08-0400 Body weight 114.4 kg Brooklynn Aichholz RESTORATIVE REHAB AIDE Work Phone: [facility] 03-30-2024 08:08-0400 Diastolic blood pressure 80 mm[Hg] Brooklynn Aichholz RESTORATIVE REHAB AIDE Work Phone: [facility] 03-30-2024 08:08-0400 Heart rate 79 /min Brooklynn Aichholz RESTORATIVE REHAB AIDE Work Phone: [facility] 03-30-2024 08:08-0400 Respiratory rate 18 /min Brooklynn Aichholz RESTORATIVE REHAB AIDE Work Phone: [facility] 03-30-2024 08:08-0400 SaO2% (BldA) [Mass fraction] 97 % Brooklynn Aichholz RESTORATIVE REHAB AIDE Work Phone: [facility] 03-30-2024 08:08-0400 Systolic blood pressure 110 mm[Hg] Brooklynn Aichholz RESTORATIVE REHAB AIDE Work Phone: [facility] 12-01-2023 09:35-0400 Diastolic blood pressure 65 mm[Hg] Brooklynn Aichholz Work Phone: [facility] 12-01-2023 09:35-0400 Heart rate 71 /min Brooklynn Aichholz Work Phone: [facility] 12-01-2023 09:35-0400 Respiratory rate 18 /min Brooklynn Yeager Work Phone: [facility] 12-01-2023 09:35-0400 SaO2% (BldA) [Mass fraction] 97 % Brooklynn Eagleholjohnny Work Phone: [facility] 12-01-2023 09:35-0400 Systolic blood pressure 117 mm[Hg] Brooklynn Yeager Work Phone: [facility] 12-01-2023 00:25-0400 Body height 190.5 cm Brooklynn Yeager Work Phone: [facility] 12-01-2023 00:25-0400 Body temperature 98.4 [degF] Brooklynn Yeager Work Phone: [facility] 12-01-2023 00:25-0400 Body weight 113.39 kg Brooklynn Yeager Work Phone: [facility] 10-17-2023 09:02-0400 Body height 188 cm [facility] 10-17-2023 09:02-0400 Body mass index (BMI) [Ratio] 32.1 kg/m2 [facility] 10-17-2023 09:02-0400 Body weight 113.4 kg [facility] 09-04-2023 14:11-0500 Body height 188 cm Lida Suh MD Work Phone: [facility] 09-04-2023 14:11-0500 Body mass index (BMI) [Ratio] 31.46 kg/m2 Lida Suh MD Work Phone: [facility] 09-04-2023 14:11-0500 Body weight 111.13 kg Lida Suh MD Work Phone: [facility] 09-04-2023 14:11-0500 Diastolic blood pressure 75 mm[Hg] Lida Suh MD Work Phone: [facility] 09-04-2023 14:11-0500 Heart rate 76 /min Lida Suh MD Work Phone: [facility] 09-04-2023 14:11-0500 Systolic blood pressure 116 mm[Hg] Lida Suh MD Work Phone: [facility] 10-22-2022 15:54-0400 Diastolic blood pressure 46 mm[Hg] Brooklynn Aichholz Work Phone: [facility] 10-22-2022 15:54-0400 Heart rate 69 /min Brooklynn Aichholz Work Phone: [facility] 10-22-2022 15:54-0400 Respiratory rate 16 /min Brooklynn Aichholz Work Phone: [facility] 10-22-2022 15:54-0400 SaO2% (BldA) [Mass fraction] 99 % Brooklynn Aichholz Work Phone: [facility] 10-22-2022 15:54-0400 Systolic blood pressure 97 mm[Hg] Brooklynn Aichholz Work Phone: [facility] 10-22-2022 14:07-0400 Body height 187.96 cm Brooklynn Aichholz Work Phone: [facility] 10-22-2022 14:07-0400 Body temperature 97.2 [degF] Brooklynn Aichholz Work Phone: [facility] 10-22-2022 14:07-0400 Body weight 113.39 kg Brooklynn Aichholz Work Phone: [facility] 09-04-2022 23:07-0500 Heart rate 73 /min Brooklynn Aichholz Work Phone: [facility] 09-04-2022 23:07-0500 Respiratory rate 18 /min Brooklynn Aichholz Work Phone: [facility] 09-04-2022 23:07-0500 SaO2% (BldA) [Mass fraction] 99 % Brooklynn Fcoholz Work Phone: [facility] 09-04-2022 22:55-0500 Body temperature 97.7 [degF] Rbooklynn Aichholz Work Phone: [facility] 09-04-2022 22:55-0500 Diastolic blood pressure 84 mm[Hg] Brooklynn Aichholz Work Phone: [facility] 09-04-2022 22:55-0500 Systolic blood pressure 123 mm[Hg] Brooklynn Aichholz Work Phone: [facility] 09-04-2022 22:11-0500 Body height 189.23 cm Brooklynn Wandahholz Work Phone: [facility] 09-04-2022 22:11-0500 Body weight 117.4 kg Brooklynn Aichholz Work Phone: [facility] Encounters Encounter Date Encounter Type Care Provider Facility Start: 07-30-2024 End: 07-30-2024 Bamboo flowsheet Brooklynn Yeager RESTORATIVE REHAB AIDE Work Phone: [facility] Start: 07-30-2024 End: 07-30-2024 Bamboo flowsheet Brooklynn Yeager RESTORATIVE REHAB AIDE Work Phone: [facility] Start: 07-30-2024 End: 07-30-2024 Office outpatient visit 25 minutes Brooklynn Yeager RESTORATIVE REHAB AIDE Work Phone: [facility] Comment on above: Bipolar disorder, cu rrent episode mixed, mild (CMS/HCC) (Primary Dx); Malignant neoplasm of overlapping sites of bladder (CMS/HCC); Obesity (BMI 30-39.9); Mixed hyperlipidemia (CMS/HCC); Tobacco user; Bipolar affective disorder, remission status unspecified (CMS/HCC) Start: 07-30-2024 End: 07-30-2024 ambulatory BROOKLYNN AICHHOLZ Not Available Start: 07-20-2024 End: 07-20-2024 Refill Brooklynn Aichholz RESTORATIVE REHAB AIDE Work Phone: [facility] Comment on above: Mixed hyperlipidemia (CMS/HCC); Bipolar affective disorder, remission status unspecified (CMS/HCC) Start: 07-02-2024 End: 07-02-2024 Refill Brooklynn Aichholz RESTORATIVE REHAB AIDE Work Phone: [facility] Comment on above: COVID (Primary Dx) Start: 06-17-2024 End: 06-17-2024 Telephone encounter Lida Suh MD Work Phone: [facility] Start: 06-17-2024 End: 06-17-2024 Evaluation and management of inpatient LIDA SUH [facility] Start: 06-16-2024 End: 06-16-2024 [facility] Start: 05-22-2024 End: 05-22-2024 Orders Only Lida Suh MD Work Phone: [facility] Comment on above: Malignant neoplasm o f overlapping sites of bladder (CMS-HCC) (Primary Dx) Start: 04-15-2024 End: 04-15-2024 Refill Brooklynn Aichholz RESTORATIVE REHAB AIDE Work Phone: [facility] Comment on above: Mixed hyperlipidemia (CMS/HCC); Bipolar affective disorder, remission status unspecified (CMS/HCC) Start: 03-30-2024 End: 03-30-2024 Bamboo flowsheet Brooklynn Aichholz RESTORATIVE REHAB AIDE Work Phone: [facility] Start: 03-30-2024 End: 03-30-2024 Bamboo flowsheet Brooklynn Aichholz RESTORATIVE REHAB AIDE Work Phone: [facility] Start: 03-30-2024 End: 03-30-2024 Office outpatient visit 25 minutes Brooklynn Aichholz RESTORATIVE REHAB AIDE Work Phone: [facility] Comment on above: Bipolar affective di sorder, remission status unspecified (CMS/HCC) (Primary Dx); Malignant neoplasm of overlapping sites of bladder (CMS/HCC); Tobacco user; Lump of skin; Contusion of scalp, initial encounter; Mixed hyperlipidemia ([facility]/HCC) Start: 03-30-2024 End: 03-30-2024 ambulatory BROOKLYNN YEAGER Not Available Start: 03-18-2024 End: 03-18-2024 Evaluation and management of inpatient [facility] Start: 03-17-2024 End: 03-17-2024 ambulatory BROOKLYNN Joshi [facility] Start: 03-09-2024 End: 03-09-2024 ambulatory [facility] Start: 01-29-2024 End: 01-29-2024 ambulatory [facility] Start: 12-02-2023 End: 12-02-2023 [facility] Start: 12-01-2023 End: 12-02-2023 Evaluation and management of inpatient JOSE Agarwal [facility] Start: 12-01-2023 End: 12-01-2023 Emergency department patient visit Brooklynn Yeager Facility:[facility] Start: 12-01-2023 End: 12-01-2023 Emergency department patient visit Brooklynn Yeager Work Phone: [facility] Work Phone: Start: 11-29-2023 End: 11-29-2023 [facility] Start: 11-22-2023 End: 11-22-2023 ambulatory [facility] Start: 11-14-2023 End: 11-14-2023 ambulatory [facility] Start: 11-13-2023 End: 11-13-2023 ambulatory [facility] Start: 11-13-2023 End: 11-13-2023 ambulatory [facility] Start: 10-30-2023 End: 10-30-2023 Telephone encounter Lida Suh MD Work Phone: [facility] Start: 10-30-2023 End: 10-30-2023 Evaluation and management of inpatient EFE HENDERSON [facility] Start: 10-30-2023 End: 10-30-2023 Evaluation and management of inpatient [facility] Start: 10-17-2023 End: 10-17-2023 Patient encounter procedure [facility] Pre-Admission Testing 1 [facility] - Pre Admit Start: 10-17-2023 End: 10-17-2023 ambulatory [facility] Start: 09-27-2023 End: 09-27-2023 ambulatory [facility] Start: 09-26-2023 End: 09-26-2023 ambulatory BROOKLYNN YEAGER Not Available Start: 09-04-2023 Telephone encounter Lida Suh MD Work Phone: [facility] Start: 09-04-2023 End: 09-04-2023 Office consultation new/estab patient 60 min Lida Suh MD Work Phone: [facility] Comment on above: Elevated PSA (Primar y Dx); Hematuria, microscopic Start: 09-04-2023 End: 09-04-2023 ambulatory [facility] Start: 09-04-2023 End: 09-04-2023 ambulatory [facility] Start: 08-27-2023 Refill Brooklynn Yeager RESTORATIVE REHAB AIDE Work Phone: [facility] Comment on above: Mixed hyperlipidemia (CMS/HCC) (Primary Dx) Start: 08-21-2023 Telephone encounter Brooklynn martinez RESTORATIVE REHAB AIDE Work Phone: [facility] Start: 10-22-2022 End: 10-22-2022 Admission to same day surgery center Brooklynn Yeager Work Phone: [facility] [place] Start: 10-22-2022 End: 10-22-2022 ambulatory Brooklynn Yeager Work Phone: [facility] Work Phone: Start: 10-03-2022 End: 10-03-2022 ambulatory Brooklynn Yeager Work Phone: [facility] Work Phone: Start: 10-03-2022 End: 10-03-2022 Departed Referred Brooklynn Yeager Work Phone: [facility] [place] Work Phone: Start: 09-18-2022 End: 09-19-2022 ambulatory [employer] BROOKLYNN YEAGER Facility:[facility] Start: 09-04-2022 End: 09-05-2022 Emergency department patient visit Brooklynn Yeager Work Phone: [facility] Work Phone: Start: 03-08-2022 End: 03-09-2022 ambulatory [employer] BROOKLYNN YEAGER Facility:[facility] Start: 11-03-2021 End: 11-03-2021 ambulatory [employer] BROOKLYNN YEAGER Facility:[facility] Start: 02-04-2018 Patient encounter KINJAL CHEW Facil ity:[facility] Start: 02-03-2018 Patient encounter KINJAL CHEW Facil ity:[facility] Procedures Date Procedure Procedure Detail Performing Clinician Start: 12-01-2023 Adult depression scr eening assessment Lida Suh MD Work Phone: Start: 11-13-2023 Follow-up visit Follow-up LIDA SUH Start: 10-22-2022 Excision of cyst Brooklynn Watkins peg Work Phone: Start: 10-03-2022 Colonoscopy Brooklynn Gabbie martinez RESTORATIVE REHAB AIDE Work Phone: Start: 09-04-2022 Plain X-ray abdomen Tawny Yeager Work Phone: Start: 09-04-2022 SARS-CoV-2, Influenz a & RSV (PCR) Brooklynn Yeager Work Phone: Start: 03-08-2022 PSA screening [employer] BROOKLYNN YEAGER Comment on above: Performed By: #### P [facility] #### [facility] [address] [place] [address] Dr. Pablo Blanchard Plan of Treatment Date Care Activity Detail Author Start: 10-03-2032 Screening for malign ant neoplasm of colon [facility] Start: 06-17-2025 Tobacco Screening Tobacco Screening [facility] Start: 03-18-2025 Tobacco Screening Tobacco Screening [facility] Start: 03-17-2025 Adult BMI Screening Adult BMI Screen ing [facility] Start: 11-30-2024 Depression Screening Depression Scre ening [facility] Start: 10-29-2024 Adult BMI Screening Adult BMI Screen ing [facility] Start: 10-29-2024 Tobacco Screening Tobacco Screening [facility] Start: 10-16-2024 Adult BMI Screening Adult BMI Screen ing [facility] Start: 10-16-2024 Tobacco Screening Tobacco Screening [facility] Start: 09-04-2024 Adult BMI Screening Adult BMI Screen ing [facility] Start: 09-04-2024 Tobacco Screening Tobacco Screening [facility] Start: 08-19-2024 End: 08-19-2024 Patient encounter procedure 08/19/2024 3:45 PM EST Office Visit [facility] [address] [place] [address] [place] [address] Lida Suh MD [address] [place] [address] [facility] Start: 07-30-2024 End: 07-30-2025 CBC W Auto Differential panel - Blood CBC and differential Lab Routine Tobacco user Expected: 07/30/2024 (Approximate), Expires: 07/30/2025 [facility] Comment on above: Expected: 07/30/2024 (Approximate), Expires: 07/30/2025 Start: 07-30-2024 End: 07-30-2025 Comprehensive metabolic 2000 panel - Serum or Plasma Comprehensive metabolic panel Lab Routine Obesity (BMI 30-39.9) Bipolar disorder, current episode mixed, mild (CMS/HCC) Mixed hyperlipidemia (CMS/HCC) Expected: 07/30/2024 (Approximate), Expires: 07/30/2025 [facility] Comment on above: Expected: 07/30/2024 (Approximate), Expires: 07/30/2025 Start: 07-30-2024 End: 07-30-2025 Lipid 1996 panel - Serum or Plasma Lipid panel Lab Routine Mixed hyperlipidemia (CMS/HCC) Expected: 07/30/2024 (Approximate), Expires: 07/30/2025 [facility] Work Phone: Comment on above: Expected: 07/30/2024 (Approximate), Expires: 07/30/2025 Start: 07-30-2024 End: 07-30-2025 Thyrotropin [Units/volume] in Serum or Plasma TSH Lab Routine Bipolar disorder, current episode mixed, mild (CMS/HCC) Expected: 07/30/2024 (Approximate), Expires: 07/30/2025 [facility] Comment on above: Expected: 07/30/2024 (Approximate), Expires: 07/30/2025 Start: 07-30-2024 End: 07-30-2025 Thyroxine (T4) free [Mass/volume] in Serum or Plasma T4, free Lab Routine Bipolar disorder, current episode mixed, mild (CMS/HCC) Expected: 07/30/2024 (Approximate), Expires: 07/30/2025 [facility] Comment on above: Expected: 07/30/2024 (Approximate), Expires: 07/30/2025 Start: 07-30-2024 End: 07-30-2024 Patient encounter procedure [facility] Comment on above: Obesity (BMI 30-39.9 ) (Primary Dx); Malignant neoplasm of overlapping sites of bladder (CMS/HCC); Bipolar disorder, current episode mixed, mild (CMS/HCC); Mixed hyperlipidemia (CMS/HCC); Tobacco user Start: 06-17-2024 End: 06-17-2024 Admission to same day surgery center 06/17/2024 11:30 AM EST - 06/17/2024 12:00 PM EST Surgery [facility] [address] [place] [phone] Lida Suh MD [address] [place] [address] CYSTOSCOPY [51827 (CPT )] [facility] Comment on above: CYSTOSCOPY [51678 (C PT )] Start: 06-17-2024 End: 06-17-2024 Cystourethroscopy [facility] Start: 06-17-2024 Subsequent hospital visit by physician 06/17/2024 11:30 AM EST Hospital Encounter [facility] [address] [place] [id number] Lida Suh MD [address] [place] [address] [facility] Start: 06-16-2024 End: 06-16-2024 ambulatory 06/16/2024 3:40 PM EST Support Visit [facility] - Pre Admit [address] [place] [id number] [facility] Pre Admit Start: 06-08-2024 End: 06-08-2024 Patient encounter procedure 06/08/2024 2:45 PM EST Office Visit [facility] [address] [place] [address] [place] [address] [place] [phone] Lida Suh MD [address] [place] [address] [facility] Start: 03-30-2024 End: 03-30-2024 Patient encounter procedure 03/30/2024 9:00 AM EDT Office Visit [facility] [address] [place] [address] Brooklynn Yeager, RESTORATIVE REHAB AIDE [address] [place] [address] Arrived [facility] Comment on above: Arrived Start: 03-15-2024 COVID-19 Vaccine () COVID-19 Vaccine () [facility] Start: 03-15-2024 Influenza vaccination Influenza Vacc ine [facility] Start: 12-01-2023 Bacteria identified in Urine by Culture Urine Culture [facility] Start: 11-13-2023 End: 11-13-2023 Patient encounter procedure 11/13/2023 11:45 AM EDT Office Visit [facility] [address] [place] [address] [place] [address] [place] [address] Lida Suh MD [address] [place] [address] [facility] Start: 11-04-2023 End: 11-04-2023 Patient encounter procedure [facility] Start: 10-30-2023 End: 10-30-2023 Admission to same day surgery center 10/30/2023 9:30 AM EDT - 10/30/2023 10:30 AM EDT Surgery [facility] [address] [place] [phone] Lida Suh MD [address] [place] [address] CYSTOSCOPY [[id number] (CPT )] [facility] Comment on above: CYSTOSCOPY [21452 (C PT )] Start: 10-30-2023 End: 10-30-2023 Cysto bladder w/ureteral catheterization CYSTOSCOPY RETROGRADE PYELOGRAM Hematuria, microscopic 10/30/2023 9:[address] [facility] Start: 10-30-2023 End: 10-30-2023 CYSTOSCOPY TRANSURETHRAL RESECTION BLADDER TUMOR CYSTOSCOPY TRANSURETHRAL RESECTION BLADDER TUMOR Hematuria, microscopic 10/30/2023 9:30 AM EDT [facility] Start: 10-30-2023 End: 10-30-2023 Cystourethroscopy CYSTOSCOPY Hematuria, microscopic 10/30/2023 9:[address] [facility] Start: 10-30-2023 End: 10-30-2023 Cystourethroscopy with biopsy CYSTOSCOPY BIOPSY BLADDER Hematuria, microscopic 10/30/2023 9:[address] [facility] Start: 10-30-2023 Subsequent hospital visit by physician 10/30/2023 9:30 AM EDT Hospital Encounter [facility] [address] [place] [address] Lida Suh MD [address] [place], [place] [id number] [facility] Start: 10-22-2023 End: 09-03-2024 Prostatic specific antigen, diagnostic Prostatic specific antigen, diagnostic Lab Routine Elevated PSA Expected: 10/22/2023, Expires: 09/03/2024 [facility] Comment on above: Expected: 10/22/2023 , Expires: 09/03/2024 Start: 09-26-2023 End: 09-26-2023 Patient encounter procedure 09/26/2023 9:00 AM EDT Office Visit [facility] [address] [place] [address] Brooklynn Yeager NP [address] [place] [address] [facility] Start: 09-04-2023 End: 09-04-2024 CT Kidney and Ureter and Urinary bladder 3D post processing WO and W contrast IV CT urogram Imaging Routine Hematuria, microscopic Expected: 09/04/2023, Expires: 09/04/2024 [facility] Work Phone: Comment on above: Expected: 09/04/2023 , Expires: 09/04/2024 Start: 03-15-2023 COVID-19 Vaccine ( season) COVID-19 Vaccine ( season) [facility] Start: 03-15-2023 Influenza vaccination [facility] Start: 10-22-2022 [facility] Start: 09-04-2022 Plain X-ray abdomen XR abdomen min 2 V [facility] Start: 09-04-2022 XR Abdomen Views [facility] Start: 1988 DTaP,Tdap and Td Vac cines (1 - Tdap) DTaP,Tdap and Td Vaccines (1 - Tdap) [facility] Start: 12-27-1987 Adult BMI Follow Up Plan Adult BMI Follow Up Plan [facility] Start: 1981 Depression Screening Depression Scre ening [facility] Start: 1969 Screening for malign ant neoplasm of colon [facility] Start: 1969 Tobacco Counseling Tobacco Counselin g [facility] End: 09-03-2024 Cytology Cytology Pathology and Cytology Routine Hematuria, microscopic 1 Occurrences starting 09/04/2023 until 09/03/2024 [facility] Comment on above: 1 Occurrences starti ng 09/04/2023 until 09/03/2024 Patient Education [facility] Work Phone: Patient referral [facility] Work Phone: Immunizations Immunization Date Immunization Notes Care Provider Moise diane 09-11-2022 zoster vaccine recombinant Brooklynn Aichholz RESTORATIVE REHAB AIDE Work Phone: [facility] 05-31-2022 zoster vaccine recombinant Brooklynn Aichholz RESTORATIVE REHAB AIDE Work Phone: [facility] Payers Date Payer Category Payer Medicaid HMO [facility] MEDICAID [id number] 2023 Medicaid [employer]ICA[employer] [place] [id number] 2023-Present [address] [place] [address] [id number] 2023 Private Health Insurance [id number] [id number] 2023 Medicaid [id number] 1969 Unknown [id number] 2.16.840.1.164936.3.579. 2.593 1969 Unknown [id number] 2.16.840.1.272058.3.579. 2.593 1969 Unknown [id number] 2.16.840.1.438460.3.579. 2.1285 1969 Unknown [id number] 2.16.840.1.731624.3.579. 2.1285 1969 Unknown [id number] 2.16.840.1.820137.3.579. 2.1285 1969 Unknown [id number] 2.16.840.1.789435.3.579. 2.1285 1969 Unknown [id number] 2.16.840.1.229398.3.579. 2.1285 1969 Unknown [id number] 2.16.840.1.435453.3.579. 2.1285 1969 Unknown [id number] 2.16.840.1.388634.3.579. 2.1285 1969 Unknown [id number] 2.16.840.1.261358.3.579. 2.1285 1969 Unknown [id number] 2.16.840.1.287569.3.579. 2.1285 1969 Unknown [id number] 2.16.840.1.704190.3.579. 2.1285 1969 Unknown [id number] 2.16.840.1.348899.3.579. 2.1285 1969 Unknown [id number] 2.16.840.1.123918.3.579. 2.1285 1969 Unknown [id number] 2.16.840.1.264701.3.579. 2.1285 1969 Unknown [id number] 2.16.840.1.529065.3.579. 2.1285 1969 Unknown [id number] 2.16.840.1.414995.3.579. 2.1285 1969 Unknown [id number] 2.16.840.1.882071.3.579. 2.1285 1969 Unknown [id number] 2.16.840.1.287477.3.579. 2.1285 1969 Unknown [id number] 2.16.840.1.543608.3.579. 2.1285 1969 Unknown [id number] 2.16.840.1.129298.3.579. 2.1285 1969 Unknown [id number] 2.16.840.1.264568.3.579. 2.1285 1969 Unknown [id number] 2.16.840.1.696735.3.579. 2.1285 1969 Unknown [id number] 2.16.840.1.656922.3.579. 2.1286 1969 Unknown [id number] 2.16.840.1.887951.3.579. 2.1259 1969 Unknown [id number] 2.16.840.1.420001.3.579. 2.1259 1969 Unknown [id number] 2.16.840.1.890445.3.579. 2.1259 1959 Self-pay [id number] 1959 Unknown [id number] Unknown [id number] 2.16.840.1.652817.3.579. 2.593 Unknown [id number] 2.16.840.1.579706.3.579. 2.531 Social History Date Type Detail Facility Start: 09-04-2022 End: 12-01-2023 Tobacco smoking status [facility] Smoker (finding) [facility] Start: 1970 Sex Assigned At Male [facility] Start: 07-15-1988 End: 09-04-2023 Tobacco smoking status [facility] Smokes tobacco daily [facility] Start: 07-15-1988 History of tobacco use Cigarette Smo ker [facility] Start: 07-17-2023 End: 09-04-2023 Cigarettes smoked current (pack per day) - Reported 1 [facility] Start: 08-21-2023 End: 07-30-2024 Alcohol intake Ex-drinker (finding) [facility] Start: 07-22-2023 End: 09-04-2023 Tobacco use panel [facility] Start: 07-21-2023 Alcohol Comment caffeine 1-2 c ups per day [facility] Start: 1970 Sex Assigned At Not on file N [facility] Start: 09-04-2023 End: 03-17-2024 Tobacco use and exposure Smokeless tobacco non-user [facility] Start: 09-04-2023 End: 10-30-2023 Alcohol intake Lifetime non-drinker (finding) [facility] Within the past 12 m [facility] we worried whether our food would run out before we got money to buy more. Never True [facility] Do you belong to any clubs or organizations such as caodaism groups, unions, fraternal or athletic groups, or [...] a drink containing alcohol? Monthly or less [facility] How many standard dr inks containing alcohol do you have on a typical day? 1 or 2 [facility] Start: 08-06-2023 Sex Male (finding) [facility] Goals Date Patient Goal Desired Activity /State Clinical Notes 08-21-2023 to 07-30-2024 Patient InstructionsTelephone Encounter - Lida Suh MD - 06/17/2024 11:59 AM ESTTelephone Encounter - Lida Suh MD - 06/17/2024 11:59 AM [facility] - 03/30/2024 9:00 AM EDT Note Date & Type Note Facility 07-30-2024 Instructions Brooklynn Yeager NP - 07/30/2024 8:40 AM EST Get fasting labs Continue with urology documented in this encounter [facility] 06-17-2024 Miscellaneous Notes Cysto local [place] setup 6 months diagnosis history bladder carcinoma. documented in this encounter [facility] 06-17-2024 Telephone encounter Note Cysto local [place] setup 6 months diagnosis history bladder carcinoma. [facility] 03-30-2024 History of Presen t illness [...] Abdominal pain 09/26/2023 Abnormal TSH Bipolar disorder ([facility]) 07/22/2023 Chicken pox Cholelithiasis Constipation, chronic COVID-19 virus infection DDD (degenerative disc disease), lumbar Diverticulitis 06/26/2023 Genital warts 09/26/2023 History of HPV infection 09/26/2023 HLD (hyperlipidemia) ([facility]) 07/22/2023 Insomnia 09/26/2023 Lipoma 09/26/2023 Lumbar back [...] Bridge of nose with palpable lump: approx [id number], non tender no induration noted no fluctuance [...] Addressed This Visit Tobacco user Bipolar disorder ([facility]/HCC) No changes in meds or doses Feels [...] of this condition documented in this encounter [facility] 10-30-2023 Miscellaneous Notes Patient needs to follow up in the office in [place] 2-3 weeks or so. Follow up on the TURBT. documented in this encounter [facility] 10-30-2023 Telephone encounter Note Patient needs to follow up in the office in [place] 2-3 weeks or so. Follow up on the TURBT. [facility] 10-17-2023 Instructions Tiffanie Altamirano RN - 10/17/2023 9:00 AM EDT Preoperative Education Checklist- General Surgery date: 10/30/23 Surgery time: 930a Arrival time: 730a 1. Bring a photo ID and your insurance card with you the day of surgery. You will check in at the main lobby of the [facility]- registration desk is straight ahead as soon as you walk in. Tell them you are here for surgery. 2. If you have a Living Will/Durable Power of Boom Tender for Health Care that is not on [...] after you have bathed. 5. NO nail sammarinese/acrylic on at least one finger. If you are having a hand, wrist or foot surgery then all nail sammarinese and artificial/acrylic nails must be removed from [...] please call the Preadmission Testing office at [phone], Mon.-Fri. 7 a.m.-3 p.m. Leave a voicemail [...] with your doctor. documented in this encounter [facility] 09-04-2023 Miscellaneous Notes Cysto potential retrograde pyelogram. Mac anesthesia [place]. Possible biopsy. Diagnosis is hematuria. documented in this encounter [facility] 09-04-2023 Telephone encounter Note Cysto potential retrograde pyelogram. Mac anesthesia [place]. Possible biopsy. Diagnosis is hematuria. [facility] 09-04-2023 Evaluation + Plan note Associated [...] system. The patient acknowledges this and agrees. [facility] 09-04-2023 Miscellaneous Notes Associated Problem(s): Hematuria, [...] this and agrees. documented in this encounter [facility] 09-04-2023 History of Presen t illness Narrative Images from the original note were not included. [address] [place] [address] [facility] [address] Patient: Reno Abreu Date of : 1970 [...] for your understanding. documented in this encounter [facility] 08-21-2023 Telephone encounter Note pt called needing a refill on his lamoTRIgine (LaMICtal) 100 MG tablet and citalopram (CeleXA) 20 MG tablet [facility] 08-21-2023 Miscellaneous Notes pt called needing a refill on his lamoTRIgine (LaMICtal) 100 MG tablet and citalopram (CeleXA) 20 MG tablet documented in this encounter [facility] Evaluation note No assessment inform ation available [facility] Work Phone: Evaluation note Diagnosis Bipolar affective disorder, remission status unspecified (CMS/HCC)- Primary documented in this encounter [facility]* Diagnosis Mixed hyperlipidemia (CMS/HCC)- Primary Mixed hyperlipidemia documented in this encounter [facility]* Diagnosis Elevated PSA- Primary Elevated prostate specific antigen (PSA) Hematuria, microscopic Microscopic hematuria [facility] Diagnosis Mixed hyperlipidemia (CMS/HCC) Mixed hyperlipidemia Bipolar affective disorder, remission status unspecified (CMS/HCC) documented in this encounter [facility]* Diagnosis Elevated PSA- Primary [...] of bladder (CMS-HCC) [facility] Diagnosis Bipolar affective disorder, remission status unspecified (CMS/HCC)- Primary Malignant neoplasm of overlapping sites of bladder (CMS/HCC) Tobacco user Tobacco use disorder Lump of skin Localized superficial swelling, mass, or lump Contusion of scalp, initial encounter Mixed hyperlipidemia (CMS/HCC) Mixed hyperlipidemia documented in this encounter [facility]* Diagnosis Diverticulitis- Primary Diverticulitis of colon (without mention of hemorrhage) Diverticulitis- Primary Diverticulitis of colon (without mention of hemorrhage) Screening for prostate cancer Special screening for malignant neoplasm of prostate Mixed hyperlipidemia (CMS/HCC) Mixed hyperlipidemia Tobacco user Tobacco use disorder Bipolar affective disorder, remission status unspecified (CMS/HCC) Skin tags, multiple acquired Bipolar affective disorder, remission status unspecified (CMS/HCC)- Primary Mixed hyperlipidemia (CMS/HCC) Mixed hyperlipidemia Microscopic hematuria Obesity (BMI 30-39.9) Tobacco user Tobacco use disorder Bipolar affective disorder, remission status unspecified (CMS/HCC)- Primary Malignant neoplasm of overlapping sites of bladder (CMS/HCC) Tobacco user Tobacco use disorder Lump of skin Localized superficial swelling, mass, or lump Contusion of scalp, initial encounter Mixed hyperlipidemia (CMS/HCC) Mixed hyperlipidemia COVID- Primary [facility] Diagnosis Diverticulitis- Primary Diverticulitis of colon (without mention of hemorrhage) Diverticulitis- Primary Diverticulitis of colon (without mention of hemorrhage) Screening for prostate cancer Special screening for malignant neoplasm of prostate Mixed hyperlipidemia (CMS/HCC) Mixed hyperlipidemia Tobacco user Tobacco use disorder Bipolar affective disorder, remission status unspecified (CMS/HCC) Skin tags, multiple acquired Bipolar affective disorder, remission status unspecified (CMS/HCC)- Primary Mixed hyperlipidemia (CMS/HCC) Mixed hyperlipidemia Microscopic hematuria Obesity (BMI 30-39.9) Tobacco user Tobacco use disorder Bipolar affective disorder, remission status unspecified (CMS/HCC)- Primary Malignant neoplasm of overlapping sites of bladder (CMS/HCC) Tobacco user Tobacco use disorder Lump of skin Localized superficial swelling, mass, or lump Contusion of scalp, initial encounter Mixed hyperlipidemia (CMS/HCC) Mixed hyperlipidemia Mixed hyperlipidemia (CMS/HCC) Mixed hyperlipidemia Bipolar affective disorder, remission status unspecified (CMS/HCC) [facility] Diagnosis Diverticulitis- Primary Diverticulitis of colon (without mention of hemorrhage) Diverticulitis- Primary Diverticulitis of colon (without mention of hemorrhage) Screening for prostate cancer Special screening for malignant neoplasm of prostate Mixed hyperlipidemia (CMS/HCC) Mixed hyperlipidemia Tobacco user Tobacco use disorder Bipolar affective disorder, remission status unspecified (CMS/HCC) Skin tags, multiple acquired Bipolar affective disorder, remission status unspecified (CMS/HCC)- Primary Mixed hyperlipidemia (CMS/HCC) Mixed hyperlipidemia Microscopic hematuria Obesity (BMI 30-39.9) Tobacco user Tobacco use disorder Bipolar affective disorder, remission status unspecified (CMS/HCC)- Primary Malignant neoplasm of overlapping sites of bladder (CMS/HCC) Tobacco user Tobacco use disorder Lump of skin Localized superficial swelling, mass, or lump Contusion of scalp, initial encounter Mixed hyperlipidemia (CMS/HCC) Mixed hyperlipidemia Bipolar disorder, current episode mixed, mild (CMS/HCC)- Primary Malignant neoplasm of overlapping sites of bladder (CMS/HCC) Obesity (BMI 30-39.9) Mixed hyperlipidemia (CMS/HCC) Mixed hyperlipidemia Tobacco user Tobacco use disorder Bipolar affective disorder, remission status unspecified (CMS/HCC) [facility]* Brooklynn Yeager NP - 07/30/2024 8:40 AM EST Images from the original note were not included. ;tanya Abreu is a 53 y.o. male presents with chief complaint of No chief complaint on file. HPI: Continues with urology: see note in epic Bipolar disorder: no SI/HI/hallucinations mood is good, sleep and appetite is good taking meds as tolerated, no other concerns SUBJECTIVE: MEDICATIONS: Current Outpatient Medications Medication Instructions albuterol HFA 90 mcg/act inhaler 2 puffs, Inhalation, Every 6 hours PRN atorvastatin (LIPITOR) 10 mg, Oral, Nightly citalopram (CELEXA) 20 mg, Oral, Daily finasteride (PROSCAR) 5 mg, Daily lamoTRIgine (LAMICTAL) 100 mg, Oral, Daily tamsulosin (FLOMAX) 0.4 mg, Daily ALLERGIES: Allergies Allergen Reactions Hydrocodone GI [...] self-injury and suicidal ideas. The patient is nervous/anxious. Depression and bi polar disroder Hematological: Negative for adenopathy. Does not bruise/bleed easily. Endocrine: Negative for cold intolerance, heat intolerance, polydipsia and polyuria. Allergic/Immunologic: Negative for environmental allergies and food allergies. PAST MEDICAL HISTORY Past Medical History: Diagnosis Date Abdominal pain 09/26/2023 Abnormal TSH Bipolar disorder ([facility]) 07/22/2023 Chicken pox Cholelithiasis Constipation, chronic COVID-19 virus infection DDD (degenerative disc disease), lumbar Diverticulitis 06/26/2023 Genital warts 09/26/2023 History of HPV infection 09/26/2023 HLD (hyperlipidemia) ([facility]) 07/22/2023 Insomnia 09/26/2023 Lipoma 09/26/2023 Lumbar back pain Male erectile disorder (CODE) 09/26/2023 Measles Rectal pain 09/26/2023 Rising PSA level 07/24/2023 Tobacco user 07/22/2023 Past Surgical History: Procedure Laterality Date CHOLECYSTECTOMY 04/03/2020 Lap. cholecystectomy w/ [facility] COLONOSCOPY 10/03/2022 AVV family history is not on file. OBJECTIVE: Visit Vitals BP 108/72 (BP Location: Left arm, Patient Position: Sitting, BP Cuff Size: Large adult) Pulse 88 Temp 97.8 F Resp 20 Ht 6' 3 Wt 254 lb 6.4 oz SpO2 93% BMI 31.80 kg/m Smoking Status Every Day BSA 2.47 m Physical Exam Vitals and nursing note reviewed. Constitutional: Appearance: Normal appearance. He is obese. He is ill-appearing. He is not diaphoretic. HENT: Head: Normocephalic. Right Ear: External ear normal. Left Ear: External ear normal. Nose: Nose normal. Mouth/Throat: Mouth: Mucous membranes are moist. Pharynx: Oropharynx is clear. Eyes: Extraocular Movements: Extraocular movements intact. Conjunctiva/sclera: Conjunctivae normal. Neck: Vascular: No carotid bruit. Cardiovascular: Rate and Rhythm: Normal rate and regular rhythm. Pulses: Normal pulses. Heart sounds: Normal heart sounds. Pulmonary: Effort: Pulmonary effort is normal. Breath sounds: Normal breath sounds. No wheezing or rales. Abdominal: General: Bowel sounds are normal. Palpations: Abdomen is soft. Tenderness: There is no abdominal tenderness. Musculoskeletal: General: Normal range of motion. Cervical back: Neck supple. Lymphadenopathy: Cervical: No cervical adenopathy. Skin: General: Skin is warm and dry. Capillary Refill: Capillary refill takes 2 to 3 seconds. Neurological: General: No focal deficit present. Mental Status: He is alert. Psychiatric: Mood and Affect: Mood normal. Behavior: Behavior normal. Thought Content: Thought content normal. Judgment: Judgment normal. ASSESSMENT AND PLAN: Follow up in about 3 months (around 10/28/2024) for Recheck. Problem List Items Addressed This Visit Tobacco user The patient has been advised of the risks of continued smoking: stroke, [place], all forms of cancer, lung disease, and . Options for quitting smoking include: cold turkey, hypnosis, acupuncture, nicotine replacement meds(gum, lozenges, and patches), Buproprion, and Varenicline. At this time pt is encouraged to evaluate their goals for wanting to quit smoking, and reach out toprovider when ready to start this process Relevant Orders CBC and differential Bipolar disorder (CMS/HCC) Current meds: lamictal as well as celexa Relevant Medications lamoTRIgine (LaMICtal) 100 MG tablet citalopram (CeleXA) 20 MG tablet Other Relevant Orders Comprehensive metabolic panel TSH T4, free Mixed hyperlipidemia (CMS/HCC) On statin therapy Check labs yearly and prn dose changes Relevant Medications atorvastatin (Lipitor) 10 MG tablet Other Relevant Orders Lipid panel Comprehensive metabolic panel Obesity (BMI 30-39.9) - Primary Discussed with patient their BMI (actual, verses recommended). We have also discussed lifestyle modifications: attempts to perform physical activity as chronic conditions allow, also to monitor dietary intake: increasing protein/fruits/veggies and lowering carb intake (unless contraindicated). Limit sodas, juices, and sugary drinks. Relevant Orders Comprehensive metabolic panel Malignant neoplasm of overlapping sites of bladder (CMS/HCC) Continue with Urology for mgmt * Brooklynn Yeager NP - 07/30/2024 6:22 AM ESTAssociated Problem(s): Tobacco user The patient has been advised of the risks of continued smoking: stroke, [place], all forms of cancer, lung disease, and . Options for quitting smoking include: cold turkey, hypnosis, acupuncture, nicotine replacement meds(gum, lozenges, and patches), Buproprion, and Varenicline. At this time pt is encouraged to evaluate their goals for wanting to quit smoking, and reach out toprovider when ready to start this process * Brooklynn Yeager NP - 07/30/2024 6:22 AM ESTAssociated Problem(s): Mixed hyperlipidemia (CMS/HCC) On statin therapy Check labs yearly and prn dose changes * Brooklynn Yeager NP - 07/30/2024 6:22 AM ESTAssociated Problem(s): Bipolar disorder (CMS/HCC) Current meds: lamictal as well as celexa * Brooklynn Yeager NP - 07/30/2024 6:21 AM ESTAssociated Problem(s): Obesity (BMI 30-39.9) Discussed with patient their BMI (actual, verses recommended). We have also discussed lifestyle modifications: attempts to perform physical activity as chronic conditions allow, also to monitor dietary intake: increasing protein/fruits/veggies and lowering carb intake (unless contraindicated). Limit sodas, juices, and sugary drinks. * Brooklynn Yeager NP - 07/30/2024 6:21 AM ESTAssociated Problem(s): Malignant neoplasm of overlapping sites of bladder (CMS/HCC) Continue with Urology for mgmt [facility] Additional Instructions As we discussed, your symptoms of excessive sleepiness during the day, persistent fatigue, and loud snoring suggest possible sleep apnea. Please follow up with your doctor about this as you may need to be referred for a sleep study. MiraLax may be used daily to stay regular and prevent constipation. May be taken twice daily until constipation is resolved.[facility] Work Phone: InstructionsNot on filedocumented in this encounter [facility] filed[facility] in this [facility] filedocumented in this encounter [facility] filedocumented in this encounter [facility] filed[facility] Summary Purpose Family History Relationship Condition Age at Onset Recorded Date/T clay Not Specified Mass of neck Unknown Heart valve disease Unknown father Unknown brother History of partial s urgical removal of colon Unknown Advance Directives Advance Directive Response Recorded Date/ Time Advance [...] Radiology Diagnoses Hematuria, microscopic Procedures CT urogram Liad Suh MD [address] [place] [address] Referral ID Status Reason Start Date Expiration Date V isits Requested Visits Authorized [id number] Pending Review 09/04/2023 09/03/2024 1 1 Additional Source Comments (unrecognized sect ion and content) No Status Records FoundNo Status Records FoundNo Status Records FoundNo Status Records FoundNo Status Records FoundNo Status Records FoundNo Status Records Found INFORMATION SOURCE (unrecogn ized section and content) DATE CREATED AUTHOR 02/04/2018 [facility] DATE CREATED AUTHOR AUTHOR'S ORGANIZ ATION 10/02/2022 [facility] DATE CREATED AUTHOR AUTHOR'S ORGANIZ ATION 12/03/2023 [facility] DATE CREATED AUTHOR AUTHOR'S ORGANIZ ATION 12/11/2023 [facility] DATE CREATED AUTHOR AUTHOR'S ORGANIZ ATION 02/02/2024 [facility] DATE CREATED AUTHOR AUTHOR'S ORGANIZ ATION 06/28/2024 [facility] DATE CREATED AUTHOR AUTHOR'S ORGANIZ ATION 08/02/2024 [facility] Care Teams (unrecognized sec tion and content) Team Status: Inactive Member Role Status Dates Brooklynn Yeager Primary Care Provider Active Hernandez Lares Jr, MD Emergency Provider Active Team Status: Active Member Role Status Dates Brooklynn Muñozgavin Primary Care Provider Active Team Status: Inactive Member Role Status Dates Kevin Sheehan MD Attending Provider Active Team Status: Inactive Member Role Status Dates Kevin Sheehan MD Attending Provider Active Brooklynn Muñozgavin Primary Care Provider Active Range Mechanic Relationship Specialty Start Date End Date Eusebio Schneider MD [address] [place] [phone] PCP - General Family Medicine 07/16/23 Brooklynn Yeager NP [address] [place] [phone] Nurse Practitioner Family Medicine 05/15/23 Range Mechanic Relationship Specialty Start Date End Date Eusebio Schneider MD [address] [place] [phone] PCP - General Family Medicine 07/16/23 Brooklynn Yeager NP [address] [place] [phone] Nurse Practitioner Family Medicine 05/15/23 Range Mechanic Relationship Specialty Start Date End Date Brooklynn Yeager, DAWN-GRAD[employer] 7 AND [employer] VISITING TEACHER [address] [place] [phone] PCP - General Nurse Practitioner 09/04/23 Range Mechanic Relationship Specialty Start Date End Date Brooklynn Yeager, DAWN-GRAD[employer] 7 AND 8 VISITING TEACHER [address] [place] [phone] PCP - General Nurse Practitioner 09/04/23 Range Mechanic Relationship Specialty Start Date End Date Brooklynn Yeager APRN-GRADES 7 AND 8 VISITING TEACHER [address] [place] [phone] PCP - General Nurse Practitioner 09/04/23 Team Status: Inactive Member Role Status Dates Brooklynn Yeager Primary Care Provider Active Sta rt: December 01, 2023 End: December 01, 2023 Hernandez Lares Jr, MD Emergency Provider Active Start: December 01, 2023 End: December 01, 2023 Range Mechanic Relationship Specialty Start Date End Date Eusebio Schneider MD [address] [place] [phone] PCP - General Family Medicine 09/26/23 Brooklynn Yeager NP [address] [place] [phone] PCP - [facility] 01/13/24 Brooklynn Yeager NP [address] [place] [phone] Nurse Practitioner Family Medicine 05/15/23 Brooklynn Yeager NP [address] [place] [address] Nurse Practitioner Family Medicine 09/26/23 Range Mechanic Relationship Specialty Start Date End Date Brooklynn Yeager APRN-GRADES 7 AND 8 VISITING TEACHER PCP - General Nurse Practitioner 09/04/23 Range Mechanic Relationship Specialty Start Date End Date Brooklynn Yeager APRN-GRADES 7 AND 8 VISITING TEACHER PCP - General Nurse Practitioner 09/04/23 Range Mechanic Relationship Specialty Start Date End Date Eusebio Schneider MD [address] [place] [phone] PCP - General Family Medicine 09/26/23 Brooklynn Yeager NP [address] [place] [phone] PCP - [facility] 01/13/24 Brooklynn Yeager NP [address] [place] [phone] Nurse Practitioner Family Medicine 05/15/23 Brooklynn Yeager NP [address] [place] [phone] Nurse Practitioner Family Medicine 09/26/23 Range Mechanic Relationship Specialty Start Date End Date Eusebio Schneider MD [address] [place] [phone] PCP - General Family [facility] 09/26/23 Brooklynn Yeager NP [address] [place] [phone] PCP - [facility] 01/13/24 Brooklynn Yeager NP [address] [place] [phone] Nurse Practitioner Family Medicine 05/15/23 Brooklynn Yeager NP [address] [place] [phone] Nurse Practitioner Family Medicine 09/26/23 Range Mechanic Relationship Specialty Start Date End Date Eusebio Schneider MD [address] [place] [phone] PCP - General Family [facility] 09/26/23 Brooklynn Yeager NP [address] [place] [phone] PCP - [facility] 01/13/24 Brooklynn Yeager NP [address] [place] [phone] Nurse Practitioner Family Medicine 05/15/23 Brooklynn Yeager NP [address] [place] [phone] Nurse Practitioner Family Medicine 09/26/23 Range Mechanic Relationship Specialty Start Date End Date Eusebio Schneider MD [address] [place] [phone] PCP - General [facility] 09/26/23 Brooklynn Yeager NP [address] [place] [phone] PCP - [facility] 01/13/24 Brooklynn Yeager NP [address] [place] [phone] Nurse Practitioner Family Medicine 05/15/23 Brooklynn Yeager NP [address] [place] [address] Nurse Practitioner Family Medicine 09/26/23 Range Mechanic Relationship Specialty Start Date End Date Eusebio Schneider MD [address] [place] [phone] PCP - General Family [facility] 09/26/23 Brooklynn Yeager NP [address] [place] [phone] PCP - [facility] 01/13/24 Brooklynn Yeager NP [address] [place] [phone] Nurse Practitioner Family Medicine 05/15/23 Brooklynn Yeager NP [address] [place] [phone] Nurse Practitioner Family Medicine 09/26/23 Range Mechanic Relationship Specialty Start Date End Date Eusebio Schneider MD [address] [place] [phone] PCP - General [facility] 09/26/23 Brooklynn Yeager NP [address] [place] [phone] PCP - [facility] 01/13/24 Brooklynn Yeager NP [address] [place] [phone] Nurse Practitioner Family Medicine 05/15/23 Brooklynn Yeager NP [address] [place] [phone] Nurse Practitioner Family Medicine 09/26/23 Range Mechanic Relationship Specialty Start Date End Date FcodaltonTawny gunna Adi, TROLLEY CAR OPERATOR-GRADES 7 AND 8 VISITING TEACHER [address] [place] [phone] PCP - General Nurse Practitioner 09/04/23 Goals [...] BE BASED ON THE PRIMARY CLINICAL RECORDS. [employer] provides no warranty or guarantee of the accuracy or completeness of information in this document.
[2024-08-13 09:17] LABS: Basophils Percent Auto 0.6 % (0.2-2.0); Eosinophils Absolute Auto 0.2 10^3/uL (0.0-0.7); Eosinophils Percent Auto 2.5 % (0.9-7.0); Hematocrit 48.7 % (42.0-54.0); Hemoglobin 16.1 g/dL (14.0-18.0); Immature Granulocytes Abs Auto 0.02 10^3/uL (0.00-0.03); Immature Granulocytes Pct Auto 0.3 % (0.0-0.5); Lymphocytes Absolute Auto 1.6 10^3/uL (1.2-3.8); Lymphocytes Percent Auto 25.2 % (20.5-60.0); Mean Corpuscular HGB Conc 33.1 g/dL (29.9-35.2); Mean Corpuscular Hemoglobin 30.7 pg (25.9-34.0); Mean Corpuscular Volume 92.8 fL (80.0-94.0); Mean Platelet Volume 9.7 fL (9.5-13.5); Monocytes Absolute Auto 0.5 10^3/uL (0.3-0.8); Monocytes Percent Auto 7.6 % (1.7-12.0); Neutrophils Percent Auto 63.8 % (43.0-75.0); Platelet Count 218 10^3/uL (150-450); Red Blood Count 5.25 10^6/uL (4.70-6.10); Red Cell Distribution Width 12.1 % (11.0-15.0); White Blood Count 6.3 10^3/uL (4.0-11.0)
[2024-08-13 09:26] LABS: Alanine Aminotransferase 38 U/L (16-63); Albumin Level 3.3 g/dL (3.4-5.0); Alkaline Phosphatase 93 U/L (46-116); Anion Gap 7.8; Aspartate Amino Transferase 19 U/L (15-37); BUN Creatinine Ratio 11.4; Bilirubin Total 0.7 mg/dL (0.2-1.0); Calcium 8.3 mg/dL (8.5-10.1); Carbon Dioxide 32.1 mmol/L (21.0-32.0); Chloride 106 mmol/L (98-107); Chol HDL Ratio 2.9; Cholesterol 138 mg/dL (<=200); Estimated GFR (African America >60 (>=60 mL/min/1.73m^2); Estimated GFR (Non-African Ame >60 (>=60 mL/min/1.73m^2); Globulin 3.3 g/dL; Glucose 119 mg/dL (74-106); HDL Cholesterol 47 mg/dL (40-60); LDL Cholesterol Calculated 76.4 mg/dL; Potassium 3.9 mmol/L (3.5-5.1); Sodium 142 mmol/L (136-145); Thyroid Stimulating Hormone 2.102 uIU/mL (0.358-3.740); Total Protein 6.6 g/dL (6.4-8.2); Triglycerides 73 mg/dL (<=150); VLDL CHOLESTEROL 14.6 mg/dL
[2024-08-13 11:07] LABS: Free T4 1.16 ng/dL (0.76-1.46)
== END 2024-08-13 08:36 | disposition home or self-care (01) ==
LOC: LAB 08:35
PROVIDERS: PCP Nurse Practitioner; Visit Provider Nurse Practitioner
DX: E78.2 Mixed hyperlipidemia (principal); E66.9 Obesity, unspecified; Z72.0 Tobacco use; F31.61 Bipolar disorder, current episode mixed, mild
CPT/HCPCS: 36415; 80053; 80061; 84439; 84443; 85025

== ENCOUNTER 2024-08-18 12:48 | Outpatient (OUT) | payer OTHER, SELFPAY ==
[2024-08-18 14:31] LABS: Estimated Average Glucose 97 mg/dL
== END 2024-08-18 12:49 | disposition home or self-care (01) ==
LOC: LAB 12:55
PROVIDERS: PCP Nurse Practitioner; Visit Provider Nurse Practitioner
DX: E83.51 Hypocalcemia (principal); R73.9 Hyperglycemia, unspecified
CPT/HCPCS: 36415; 82306; 83036

== ENCOUNTER 2024-09-11 19:25 | Emergency (ER) | payer OTHER, SELFPAY ==
--- OUTSIDE RECORDS SUMMARY | 2024-09-11 19:31 | XMS_ITS | CCD ---
Author Organization [facility] Care Team Providers Care Malariologist Name Role Phone KINJAL CHEW Unavailable Unavailable KINJAL CHEW Unavailable Unavailable Aichholz, Brooklynn J Primary Care Provider [phone] MD Hernandez Lares Jr Emergency Provider AICHHOLZ, CHEMICAL MILLING PROCESSOR BROOKLYNN Attending Unavailable AICHHOLZ, CHEMICAL MILLING PROCESSOR BROOKLYNN Consulting Unavailable AICHHOLZ, CHEMICAL MILLING PROCESSOR BROOKLYNN Primary Care Unavailable AICHHOLZ, CHEMICAL MILLING PROCESSOR BROOKLYNN Admitting Unavailable AICHHOLZ, CHEMICAL MILLING PROCESSOR BROOKLYNN Attending Unavailable AICHHOLZ, CHEMICAL MILLING PROCESSOR BROOKLYNN Consulting Unavailable AICHHOLZ, CHEMICAL MILLING PROCESSOR BROOKLYNN Primary Care Unavailable AICHHOLZ, CHEMICAL MILLING PROCESSOR BROOKLYNN Admitting Unavailable AICHHOLZ, CHEMICAL MILLING PROCESSOR BROOKLYNN Primary Care Unavailable MISC, DR QUIGLEY Attending Unavailable MISC, DR QUIGLEY Consulting Unavailable MISC, DOCTOR Admitting Unavailable Aichholz, Brooklynn J Primary Care Provider [phone] MD Hernandez Lares Jr Emergency Provider MD Kevin Sheehan Attending Provider Aichholz SENIOR RELIABILITY ENGINEER, Brooklynn Unavailable Eusebio Schneider MD Primary Care Provider LIDA SUH Referring Unavailable AICHHOLZ, BROOKLYNN J Primary Care Unavailable AICHHOLZ, BROOKLYNN J Primary Care Unavailable [facility] Consulti kaylan Unavailable BRICE DYSON Attending Unavailab JOSE Jamison Admitting Unavailable JOSE GARIBAY Attending Unavailable HERNANDEZ LARES JR Referring Unavailable SHOBHA, BROOKLYNN J Primary Care Unavailable AICHKATYA, BROOKLYNN J Referring Unavailable AICHHOLZ, BROOKLYNN J Primary Care Unavailable Aichholz, Brooklynn J Primary Care Provider MD Hernandez Lares Jr Emergency Provider Aichholz, Brooklynn J Primary Care Unavailable Hernandez Lares Jr Attending Unavailable Hernandez Lares Jr Admitting Unavailable Aichholz SENIOR RELIABILITY ENGINEER, Brooklynn Unavailable Eusebio Schneider MD Primary Care Provider Aichholz SENIOR RELIABILITY ENGINEER, Brooklynn Unavailable Aichholz SENIOR RELIABILITY ENGINEER, Brooklynn Unavailable LIDA SUH Attending Unavailable LIDA SUH [...] Attending Unavailable AICHHOLZ, BROOKLYNN Attending Unavailable Aichholz SCHOOL EXAMINER-CHEMICAL MILLING PROCESSOR, Brooklynn J Primary Care Provider LIDA SUH Attending Unavailable AICHHOLZ, BROOKLYNN J Referring Unavailable AICHHOLZ, BROOKLYNN J Primary Care Unavailable LIDA SUH Attending Unavailable BROOKLYNN YEAGER Referring Unavailable BROOKLYNN YEAGER Primary Care Unavailable LIDA SUH Attending Unavailable BROOKLYNN YEAGER Referring Unavailable BROOKLYNN YEAGER Primary Care Unavailable LIDA SUH Attending Unavailable BROOKLYNN YEAGER Primary Care Unavailable Brooklynn Rivera Primary Care Provider Brooklynn Rivera Primary Care Provider Allergies Allergy Classification Reported Allergen(s) Allergy Type Date of Onset Reaction(s) Facility (5 sources) Acetaminophen; Translations: [acetaminophen] Drug Allergy 09-04-19 23 Gastrointestinal Upset [facility] (20 sources) HYDROcodone; Translations: [hydrocodone] Drug Allergy 09-04-19 23 GI intolerance [facility] (1 source) Acetaminophen / HYDROcodone Drug Allergy [facility] Repository (20 sources) Acetaminophen / HYDROcodone; Translations: [HYDROCODONE-ACET AMINOPHEN] Drug Allergy 09-04-19 24 [facility] Repository Medications Current Medications Medication Drug Class(es) Dates Sig (Normalized) Sig (Original) acetaminophen 325 mg / oxyCODONE hydrochloride 5 mg oral tablet (5 sources) Opioid Agonist Start: 05-22-2024 oxyCODONE-acetamino phen (PERCOCET) 5-325 mg per tablet Indications: Malignant neoplasm of overlapping sites of bladder ([facility]) Take prior to your urologic procedure-- someone must drive you 1 tablet 05/22/2024 Active Start: 04-04-2020 End: 10-22-2022 take 1 tablet by mouth every six hours Oxycodone-Acetaminophen Discontinued 1 T AB PO Q6H 28 April 04, 2020 October 22, 2022 2:09pm [id number] actuat albuterol 0.09 mg/actuat metered dose inhaler (9 sources) beta2-Adrenergic Agonist Start: 07-02-2024 End: 08-01-2024 take 2 puff(s) by inhalation every six hours for wheezing albuterol HFA 90 mcg/act inhaler Indications: COVID Inhale 2 puffs every 6 (six) hours if needed for shortness of breath or wheezing 18 g 07/02/2024 Active atorvastatin 10 mg oral tablet (20 sources) HMG-CoA Reductase Inhibitor Start: 01-21-2024 End: 10-28-2024 take 1 tablet by mouth in the morning atorvastatin (LIPITOR) 10 mg tablet Take 1 tablet (10 mg total) by mouth in the morning. 04/16/2024 Active Start: 07-29-2023 End: 12-19-2023 take 1 tablet by mouth in the morning atorvastatin (LIPITOR) 10 mg tablet Take 1 tablet (10 mg total) by mouth in the morning. 09/20/2023 12/19/2023 Active brompheniramine maleate 0.4 mg/ml / dextromethorphan hydrobromide 2 mg/ml / pseudoephedrine hydrochloride 6 mg/ml oral solution (1 source) alpha-Adrenergic Agonist, Uncompetitive B-crnbmr-A-aspartate Receptor Antagonist, Sigma-1 Agonist Start: 07-02-2024 End: 07-07-2024 take 10 mL by mouth four times daily as needed for cough czjbtxgygcirdag-lqfefbotxuvgojm-QT 30-2-10 MG/5ML syrup Indications: COVID Take 10 mL by mouth 4 (four) times a day as needed for cough or congestion for up to 5 days 200 mL 07/02/2024 07/07/2024 Active cholecalciferol 0.125 mg oral capsule (2 sources) Vitamin D Start: 08-18-2024 End: 09-17-2024 take 1 capsule by mouth in the morning cholecalciferol, vitamin D3, (VITAMIN D3) 5,000 units capsule Take 1 capsule (5,000 Units total) by mouth in the morning. 08/18/2024 09/17/2024 Active Start: 08-18-2024 End: 09-17-2024 take 1 capsule by mouth once daily cholecalciferol (Vitamin D-3) 125 MCG (5000 UT) capsule Indications: Vitamin D deficiency Take 1 capsule (125 mcg) by mouth Daily 30 capsule 1 08/18/2024 09/17/2024 Active citalopram 20 mg oral tablet (20 sources) Serotonin Reuptake Inhibitor Start: 08-21-2023 End: 10-28-2024 take 1 tablet by mouth in the morning citalopram (CeleXA) 20 mg tablet Take 1 tablet (20 mg total) by mouth in the morning. 11/20/2023 02/18/2024 Active Start: 10-22-2022 take 2 tablets by mo uth once daily in the morning Citalopram (Celexa) 10 mg tablet Active 20 MG PO Every morning October 22, 2022 12:00am Start: 10-22-2022 take 1 tablet by esau once daily in the morning Citalopram (Celexa) 10 mg tablet Active 10 MG PO Every morning October 22, 2022 12:00am finasteride 5 mg oral tablet (17 sources) 5-alpha Reductase Inhibitor Start: 12-19-2023 End: 01-29-2024 take 1 tablet by mouth once daily finasteride (Proscar) 5 MG tablet Take 5 mg by mouth Daily 12/19/2023 Active hyoscyamine sulfate 0.12 mg / methenamine 118 mg / methylene blue 10 mg / phenyl salicylate 36 mg / sodium phosphate, monobasic 40.8 mg oral capsule (2 sources) Oxidation-Reduction Agent Start: 11-13-2023 End: 11-20-2023 libanph ta-qutmr-iqb (URO-MP) 118-10-40.8-36 mg capsule Take 1 capsule by mouth in the morning and 1 capsule at noon and 1 capsule in the evening and 1 capsule before bedtime. Do all this for 7 days. 28 capsule 11/13/2023 11/20/2023 Active ketorolac tromethamine 10 mg oral tablet (8 sources) Nonsteroidal Anti-inflammatory Drug, Cyclooxygenase Inhibitor Start: [...] mg total) by mouth in the morning. 02/20/2024 Active Start: 10-22-2022 End: 12-01-2023 take 1 tablet by mouth twice daily Lamotrigine (Lamictal) 25 mg tablet Discontinued 25 MG PO Twice daily October 22, 2022 12:00am December 01, 2023 12:27am phenazopyridine hydrochloride 100 mg oral tablet (1 source) Start: 10-31-2023 End: 11-03-2023 take 1 tablet by mouth three times daily phenazopyridine (PYRIDIUM) 100 mg tablet Take 1 tablet (100 mg total) by mouth 3 (three) times a day for 9 doses. 9 tablet 10/31/2023 11/03/2023 Active tamsulosin hydrochloride 0.4 mg oral capsule (17 sources) alpha-Adrener gic Kwan Start: 12-19-2023 End: 01-29-2024 take 1 capsule by mouth once daily tamsulosin (Flomax) 0.4 MG 24 hr capsule Take 0.4 mg by mouth Daily 12/19/2023 Active zolpidem tartrate 5 mg oral tablet (2 sources) gamma-Aminobu tyric Acid-ergic Agonist Start: 07-24-2022 zolpidem (Ambien) 5 MG tablet Take 1 tablet by mouth as needed at bedtime 0 07/24/2022 Active Completed/Discontinued Medications Medication Drug Class(es) Dates Sig (Normalized) Sig (Original) polyethylene glycol 3350 46968 mg powder for oral solution (4 sources) [...] without obstruction] 04-04-2020 Episodic Cancer of bladder (20 sources) Malignant neoplasm of overlapping sites of bladder; Translations: [Malignant neoplasm, overlapping lesion of bladder] Onset: 09-04-2023 03-30-2024 Chronic Diabetes mellitus without complication (4 sources) Hyperglycemia; Translations: [Hyperglycemia, unspecified] Onset: 08-14-2024 08-14-2024 Episodic Disorders of lipid metabolism (20 sources) Hyperlipidemia; Translations: [Hyperlipidemia, unspecified] Onset: 07-22-2023 Resolved: 09-26-2023 07-22-2023 Chronic Diverticulosis and diverticulitis (15 sources) Diverticulitis; Translations: [Diverticulitis of intestine, part unspecified, without perforation or abscess without bleeding] Onset: 06-26-2023 06-26-2023 Chronic Genitourinary symptoms and ill-defined conditions (2 sources) Unspecified urinary incontinence; Translations: [Urinary incontinence] Onset: 01-29-2024 01-29-2024 Chronic Intestinal obstruction without hernia (4 sources) Intussusception of intestine; Translations: [Intussusception] 04-04-2020 Episodic Malaise and fatigue (4 sources) Fatigue; Translations: [Other fatigue] 09-05-2022 Episodic Miscellaneous mental health disorders (13 sources) Impotence; Translations: [Male erectile disorder] Onset: 09-26-2023 09-26-2023 Chronic Mood disorders (20 sources) Bipolar disorder; Translations: [Bipolar disorder, unspecified] Onset: 07-22-2023 08-21-2023 Chronic Nephritis; nephrosis; renal sclerosis (1 source) Recurrent gail hematuria; Translations: [Recurrent and persistent hematuria with unspecified morphologic changes] 12-01-2023 Chronic Nutritional deficiencies (2 sources) Vitamin D deficiency; Translations: [Vitamin D deficiency, unspecified] Onset: 08-18-2024 08-18-2024 Chronic Other gastrointestinal disorders (4 sources) Constipation; Translations: [Constipation, unspecified] 09-05-2022 Episodic Other lower respiratory disease (4 sources) Snoring; Translations: [Snoring] 09-05-2022 Episodic Other nutritional; endocrine; and metabolic disorders (15 sources) Body mass index 30+ - obesity; Translations: [Obesity, unspecified] Onset: 09-26-2023 09-26-2023 Chronic Other nutritional; endocrine; and metabolic disorders (4 sources) Hypocalcemia; Translations: [Hypocalcemia] Onset: 08-14-2024 08-14-2024 Chronic Other screening for suspected conditions (not mental disorders or infectious disease) (20 sources) Encounter for screening, unspecified; Translations: [Patient encounter status] Onset: 09-18-2022 Episodic Residual codes; unclassified (4 sources) Daytime somnolence; Translations: [Other hypersomnia] 09-05-2022 Chronic Residual codes; unclassified (1 source) History of transurethral resection of bladder tumor; Translations: [Other specified postprocedural states] 12-01-2023 Episodic Spondylosis; intervertebral disc disorders; other back problems (15 sources) Degeneration of lumbar intervertebral disc; Translations: [Other intervertebral disc degeneration, lumbar region] Onset: 08-21-2023 08-21-2023 Chronic Unclassified (3 sources) CONTACT W/AND (SUSP) EXPOS COVID-19; Translations: [CONTACT W/AND (SUSP) EXPOS COVID-19] Onset: 11-06-2021 Unclassified (1 source) 52 yrs M (1970) [id number] Onset: 11-29-2023 Unclassified (1 source) Hematuria, microscopic [R31.29] Onset: 10-30-2023 Unclassified (1 source) Elevated PSA Onset: 09-04-2023 Viral infection (20 sources) Genital warts; Translations: [Anogenital (venereal) warts] Onset: 09-26-2023 09-26-2023 Episodic Past or Other Problems Problem Classification Problem Date Documented Da te Episodic/Chronic Abdominal pain (13 sources) Abdominal pain; Translations: [Unspecified abdominal pain] Onset: 09-26-2023 09-26-2023 Episodic Anal and rectal conditions (13 sources) Rectal pain; Translations: [Other specified diseases of anus and rectum] Onset: 09-26-2023 09-26-2023 Episodic Genitourinary symptoms and ill-defined conditions (20 sources) Microscopic hematuria; Translations: [Other microscopic hematuria] Onset: 07-29-2023 Resolved: 03-30-2024 07-29-2023 Episodic Mood disorders (9 sources) Mood disorders Onset: 12-01-2023 12-01-2023 Other and unspecified benign neoplasm (13 sources) Lipoma (clinical); Translations: [Benign lipomatous neoplasm, unspecified] Onset: 09-26-2023 09-26-2023 Episodic Other gastrointestinal disorders (15 sources) Chronic constipation; Translations: [Other constipation] Onset: 08-21-2023 08-21-2023 Episodic Other infections; including parasitic (13 sources) History of human papilloma virus infection; Translations: [Personal history of other infectious and parasitic diseases] Onset: 09-26-2023 09-26-2023 Episodic Other nutritional; endocrine; and metabolic disorders (4 sources) Polydipsia; Translations: [POLYDIPSIA] Onset: 03-08-2022 Episodic Other skin disorders (15 sources) Multiple skin tags; Translations: [Other hypertrophic disorders of the skin] Onset: 07-22-2023 07-22-2023 Episodic Other skin disorders (14 sources) Mass of skin; Translations: [Localized swelling, mass and lump, unspecified] Onset: 03-30-2024 03-30-2024 Episodic Residual codes; unclassified (19 sources) Tobacco user; Translations: [Tobacco use] Onset: 07-22-2023 07-22-2023 Episodic Residual codes; unclassified (13 sources) Insomnia; Translations: [Insomnia, unspecified] Onset: 09-26-2023 09-26-2023 Episodic Superficial injury; contusion (14 sources) Contusion of scalp; Translations: [Contusion of scalp, initial encounter] Onset: 03-30-2024 Resolved: 07-30-2024 03-30-2024 Episodic Unclassified (1 source) CONTACT W/AND (SUSP) EXPOS COVID-19; Translations: [CONTACT W/AND (SUSP) EXPOS COVID-19] Onset: 11-03-2021 Results Test Name Value Interpretation Reference Range Facility MLR HEMOGLOBIN A1Con 025 Glucose [Mass/Vol] 97 mg/dL [facility] HbA1c (Bld) [Mass fraction] 5 % 4.5 - 6.2 % [facility] Comment on above: ADA RECOMMENDED LIMI T 4.0 - 6.0 ADA THERAPEUTIC TARGET < 7.0 ACTION SUGGESTED > 7.0 [facility] ALL LIPID PROFILE (FASTING)o n 08-13-2024 CHOL HDL RATIO 2.9 [facility] Comment on above: 3.3 - 4.4 LOW RISK 4.4 - 7.1 AVERAGE RISK 7.1 - 11.0 MODERATE RISK >11.0 HIGH RISK Cholesterol [Mass/Vol] 138 mg/dL NINF - 200 [facility] Cholesterol in HDL [Mass/Vol] 47 mg/dL 40 - 60 mg/dL [facility] Comment on above: > or =60 mg/dl - LOW CARDIOVASCULAR RISK <40 mg/dl - HIGH CARDIOVASCULAR RISK Magnesium [Mass/Vol] 76.4 mg/dL [facility] Comment on above: <100 mg/dl OPTIMAL 100-129 mg/dl NEAR OR ABOVE OPTIMAL 130-159 mg/dl BORDERLINE HIGH 160-189 mg/dl HIGH >190 mg/dl VERY HIGH Magnesium [Mass/Vol] 14.6 mg/dL [facility] Triglyceride [Mass/Vol] 73 mg/dL NINF - 150 mg/dL [facility] ALL THYROID STIM HORMONEon 0 08-13-2024 TSH Qn 2.102 m[IU]/L [facility] CCF CMP (CMP) (FOR REMOTE FH C USE)on 08-13-2024 Albumin [Mass/Vol] 3.3 g/dL Low 3.4 - 5.0 g/dL [facility] ALBUMIN GLOBULIN RATIO 1 [facility] ALP [Catalytic activity/Vol] 93 U/L 46 - 116 U/L [facility] ALT [Catalytic activity/Vol] 38 U/L 16 - 63 U/L [facility] Anion gap [Moles/Vol] 7.8 mmol/L [facility] AST [Catalytic activity/Vol] 19 U/L 15 - 37 U/L [facility] Bilirubin [Mass/Vol] 0.7 mg/dL 0.2 - 1 .0 mg/dL [facility] Calcium [Mass/Vol] 8.3 mg/dL Low 8.5 - 10. 1 mg/dL [facility] Chloride [Moles/Vol] 106 mmol/L 98 - 10 7 mmol/L [facility] CO2 [Moles/Vol] 32.1 mmol/L High 21.0 - 32.0 mmol/L [facility] Creatinine [Mass/Vol] 1.14 mg/dL 0.70 - 1.30 mg/dL [facility] GFR/1.73 sq M.predicted CKD-EPI (S/P/Bld) [Vol rate/Area] >60 >=60 mL/min/1.7 3m 2 [facility] Globulin (S) [Mass/Vol] 3.3 g/dL [facility] Glucose [Mass/Vol] 119 mg/dL High 74 - 106 mg/dL [facility] Interpretation and review of laboratory results Abnormal [facility] Potassium [Moles/Vol] 3.9 mmol/L 3.5 - 5.1 mmol/L [facility] Protein [Mass/Vol] 6.6 g/dL 6.4 - 8.2 g/dL [facility] Sodium [Moles/Vol] 142 mmol/L 136 - 145 mmol/L [facility] TBH EGFR-NON AF BURUNDIAN >60 >=60 mL/min/1.7 3m 2 [facility] Urea nitrogen [Mass/Vol] 13 mg/dL 7.0 - 18.0 mg/dL [facility] Urea nitrogen/Creatinine [Mass ratio] 11.4 mg/mg [facility] No Panel Informationon 08-13 [facility] Cytologyon 06-17-2024 Cytology Normal [facility] Comment on above: Result Comment: [facility] [address] [place] [address] Cytology Consultation Patient Name:RENO ABREU:1970 (Age: 53)Gender:MTaken:06/17/2024eported:06/18/2024 14:16Physician(s):Lida Suh M.D. ([phone])Copy To: Rec. #:[id number]: #[id number] Final Cytologic Diagnosis Urine: Negative for high-grade urothelial cell carcinoma. 06/18/2024 Interpretation performed [facility] [place] [address], License number: [id number].Electronically Signed Out By Trevin Mallory MD Clinical History Malignant neoplasm of overlapping sites of bladder (CMS-HCC) (C67.8) Gross Description Received was 50 mL of cloudy yellow fluid labeled as [place], urine .Preservative added. 25 mL used for Cytology. See UroVysion report. Source of Specimen Urine Non TAR DISTILLATION SUPERVISOR Thin[employer] Fee Code(s): 1; 01756 Reference Lab Test IDon 12-0 UROVYSION FOR BLADDER CANCER SEE COMMENTS 06/25/2024 12:33 PM Normal [facility] Comment on above: Result Comment: NOTE [...] and a locus specific probe for 9p21 ([employer] [place], [place]). This test has been modified from the river pilot's instructions. Its performance characteristics were determined by [facility] in a manner consistent with CLIA requirements. This test has not been cleared or approved by the U.S. Food and Drug Administration. Reason for Referral Evaluate for urothelial carcinoma. Specimen Varies Source Urine, NOS Released By See Note Calixto Gross MChema Test Performed by: [place] [address] Publishing Manager: Te Moreau Ph.D.; CLIA# [id number] Performed By: #### 3 0896-5 ####[facility] ([id number])[address] [place] [address] Cytologyon 03-18-2024 Cytology Normal [facility] Comment on above: Result Comment: [facility] [address] [place] [address] Cytology Consultation Patient Name:RENO ABREU:1970 (Age: 53)Gender:MTaken:03/18/2024eported:03/19/2024 17:33Physician(s):Lida Suh M.D. ([phone])Copy To: Rec. #:[id number]: #[id number] Final Cytologic Diagnosis Urine clean catch: Negative for high-grade urothelial cell carcinoma. ao/03/19/2024 Interpretation performed at [facility], [address] [place] [address], License number: [id number].Electronically Signed Out By George Smith MD Clinical History Malignant neoplasm of overlapping sites of bladder ([facility]-H[facility]) C67.8 Gross Description Received was 70mL of cloudy nannette fluid unfixed labeled as [place], Urine clean catch . 35mL used for Cytology. See UroVysion report. Source of Specimen Urine clean catch Non TAR DISTILLATION SUPERVISOR [employer] Fee Code(s): 1; 03045 Reference Lab Test IDon 09-0 UROVYSION FOR BLADDER CANCER SEE COMMENTS 03/26/2024 08:20 AM Normal [facility] Comment on above: Result Comment: NOTE [...] specific probe for 9p21 ([employer] [place], [place]). This test has been modified from the river pilot's instructions. Its performance characteristics were determined by [facility] in a manner consistent with CLIA requirements. This test has not been cleared or approved by the U.S. Food and Drug Administration. Reason for Referral Evaluate for urothelial carcinoma. Specimen Varies Source Urine, NOS Released By Adrianna Proctor M.D. Test Performed by: [place] [address] Publishing Manager: Te Moreau Ph.D.; CLIA# [id number] Performed By: #### 3 0896-5 ####[facility] ([id number])[address] [place] [address] Prostate specific Ag [Mass/V ol]on 03-09-2024 PROSTATIC SPEC ANT 2.12 ng/mL Normal 0.00-4.00 [facility] Comment on above: Result Comment: The method used for this test is [employer] DXI chemiluminescent immunoassay. Values obtained by different assay methods cannot be used interchangeably. Performed By: #### 2 857-1 #### [facility] ([id number]) [address] [address] URINE CULTUREon 03-09-2024 Bacteria identified Cx Nom (U) CULTURE RESULTS <10,000 ORGANISMS/ML NORMAL URO GENITAL ANIL Normal [facility] Comment on above: Performed By: #### 6 30-4 #### [facility] ([id number]) [address] [address] Measure post void residualon 01-29-2024 Volume 37ml [facility] [address] BASIC METABOLIC PANLon 12-01 Anion gap [Moles/Vol] 6 mmol/L Normal 5-15 [facility] Comment on above: Performed By: #### [place] BCA, BMP, [address]-3, 2777-1 #### [facility] ([id number]) [address] [facility] [address] [place] [address] Calcium [Mass/Vol] 8.0 mg/dL Low 8.5-10.5 [facility] Comment on above: Performed By: #### C ALEXYS LOPEZ, , 2776-07 #### [facility] ([id number]) [address] [facility] [address] [place] [address] Chloride [Moles/Vol] 104 mmol/L Normal 98-109 [facility] Comment on above: Performed By: #### C ALEXYS LOPEZ, , 2776-07 #### [facility] ([id number]) [address], [address] [address] CO2 [Moles/Vol] 28 mmol/L Normal 22-32 [facility] Comment on above: Performed By: #### C ALEXYS LOPEZ, , 2776-07 #### [facility] ([id number]) [address] [address] Creatinine [Mass/Vol] 0.91 mg/dL Normal 0.60-1.30 [facility] Comment on above: Result Comment: METH OD TRACEABLE TO IDMS STANDARD Performed By: #### C ALEXYS LOPEZ, , 2776-07 #### [facility] ([id number]) [address] [facility] [address] [place] [address] eGFR (CKD-EPI) NON-RACE DEPENDENT >90 Normal >59 [facility] Comment on above: Result Comment: Reported eGFR is based on the CKD-EPI 2020 equation that does not use a race coefficient. Performed By: #### C ALEXYS LOPEZ, , 2776-07 #### [facility] ([id number]) [address], [address] [place] [address] Glucose [Mass/Vol] 112 mg/dL High 65-99 [facility] Comment on above: Performed By: #### C ALEXYS LOPEZ, , 2776-07 #### [facility] ([id number]) [address], [address] [place] [address] Potassium [Moles/Vol] 3.8 mmol/L Normal 3.5-5.0 [facility] Comment on above: Performed By: #### C JOHN BMP, , 2776-07 #### [facility] ([id number]) [address] [place] [address] Sodium [Moles/Vol] 138 mmol/L Normal 134-146 [facility] Comment on above: Performed By: #### C JOHN BMP, , 2776-07 #### [facility] [facility] ([id number]) [address], [address] [place] [address] Urea nitrogen [Mass/Vol] 15 mg/dL Normal 5-23 [facility] Comment on above: Performed By: #### C JOHN BMP, , 2776-07 #### [facility] ([id number]) [address], [address] [place] [address] CBC AND AUTO DIFFon 05-20-20 24 ABSOLUTE BASOPHIL 0.0 X10E9/L Normal 0.0-0.2 [facility] Comment on above: Performed By: #### C JOHN BMP, , 2776-07 #### [facility] ([id number]) [address], [address] [place] [address] ABSOLUTE NEUTROPHIL 3.7 X10E9/L Normal 1.5-6.6 [facility] Comment on above: Performed By: #### C BCA, BMP, , 2776-07 #### [facility] ([id number]) [address], [address] [place] [address] Basophils/100 WBC (Bld) 0.4 % Normal [facility] Comment on above: Performed By: #### C JOHN, BMP, , 2776-07 #### [facility] ([id number]) [address], [address] [place] [address] Eosinophils (Bld) [#/Vol] 0.2 10*3/uL Normal 0.0-0.4 [facility] Comment on above: Performed By: #### C JOHN, BMP, , 2776-07 #### [facility] ([id number]) [address], [facility] [address] [place] [address] Eosinophils/100 WBC (Bld) 3.5 % Normal [facility] Comment on above: Performed By: #### C JOHN, BMP, , 2776-07 #### [facility] ([id number]) [address] [address] [place] [address] Erythrocyte distribution width (RBC) [Ratio] 12.5 % Normal 11.5-15.0 [facility] Comment on above: Performed By: #### C JOHN, BMP, , 2776-07 #### [facility] ([id number]) [address] [address] [place] [address] Hematocrit (Bld) [Volume fraction] 40.6 % Normal 39-49 [facility] Comment on above: Performed By: #### C JOHN, BMP, , 2776-07 #### [facility] ([id number]) [address], [facility] [address] [place] [address] Hemoglobin (Bld) [Mass/Vol] 13.9 g/dL Normal 13.0-17.0 [facility] Comment on above: Performed By: #### C JOHN, BMP, , 2776-07 #### [facility] ([id number]) [address] [address] [place] [address] Lymphocytes (Bld) [#/Vol] 1.5 10*3/uL Normal 1.0-3.5 [facility] Comment on above: Performed By: #### C ALEXYS LOPEZ, , 2776-07 #### [facility] ([id number]) [address], [address] [place] [address] Lymphocytes/100 WBC (Bld) 25.2 % Normal [facility] Comment on above: Performed By: #### C ALEXYS LOPEZ, , 2776-07 #### [facility] ([id number]) [address] [place] [address] MCH (RBC) [Entitic mass] 30.6 pg Normal 27-34 [facility] Comment on above: Performed By: #### C JOHN, ALEXYS, , 2776-07 #### [facility] ([id number]) [address] [place] [address] MCHC (RBC) [Mass/Vol] 34.3 g/dL Normal 32-36 [facility] Comment on above: Performed By: #### C ALEXYS LOPEZ, , 2776-07 #### [facility] ([id number]) [address], [address] [place] [address] MCV (RBC) [Entitic vol] 89 fL Normal 80-100 [facility] Comment on above: Performed By: #### ALEXYS Chaudhry BCA, , 2776-07 #### [facility] ([id number]) [address], [address] [place] [address] Monocytes (Bld) [#/Vol] 0.5 10*3/uL Normal 0-0.9 [facility] Comment on above: Performed By: #### C JOHN, BMP, , 2776-07 #### [facility] ([id number]) [address], [address] [place] [address] Monocytes/100 WBC (Bld) 7.9 % Normal [facility] Comment on above: Performed By: #### C JOHN, ALEXYS, , 2776-07 #### [facility] ([id number]) [address], [address] [place] [address] Neutrophils/100 WBC (Bld) 63.0 % Normal [facility] Comment on above: Performed By: #### Richa LOPZE, BMP, , 2776-07 #### [facility] ([id number]) [address] [place] [address] Platelet mean volume (Bld) [Entitic vol] 7.8 fL Normal 7-12 [facility] Comment on above: Performed By: #### Richa LOPEZ, BMP, , 2776-07 #### [facility] ([id number]) [address] [place] [address] Platelets (Bld) [#/Vol] 193 10*3/uL Normal 150-450 [facility] Comment on above: Performed By: #### Richa LOPEZ, ALEXYS, , 2776-07 #### [facility] ([id number]) [address], [facility] [address] [place] [address] RBC COUNT 4.55 X10E12/L Normal 4.10-5.70 [facility] Comment on above: Performed By: #### Richa LOPEZ, BMP, , 2776-07 #### [facility] ([id number]) [address], [facility] [address] [place] [address] WBC (Bld) [#/Vol] 5.9 10*3/uL Normal 4.0-11.0 [facility] Comment on above: Performed By: #### Richa LOPEZ, BMP, , 2776-07 #### [facility] ([id number]) [address], [address] [place] [address] MAGNESIUMon 12-02-2023 Magnesium [Mass/Vol] 1.8 mg/dL Normal 1.8-2.6 [facility] Comment on above: Performed By: #### C BCA, BMP, 61610-2, 2777-1 #### [facility] ([id number]) [address], [address] [place] [address] PHOSPHORUSon 12-02-2023 Phosphate [Mass/Vol] 3.2 mg/dL Normal 2.4-4.9 [facility] Comment on above: Performed By: #### C BCA, BMP, , 2776-1 #### [facility] ([id number]) [address], [address] [place] [address] Activated partial thrombopla stin time (aPTT) in platelet poor plasma by coagulation aOrdered By: Hernandez Lares on 12-01-2023 aPTT Coag (PPP) [Time] 31.9 s 25.1-36.5 [facility] Comment on above: A hematocrit value g reater than 55% may lead to inaccurate results in coagulation testing. Patients having hematocrit values >55% require a special collection tube for coagulation studies. Please contact the laboratory at [phone] for redraw instructions. Alanine aminotransferase [En zymatic activity/volume] in Serum or PlasmaOrdered By: Hernandez Lares on 12-01-2023 ALT [Catalytic activity/Vol] 21 U/L 7-52 [facility] Albumin [Mass/volume] in Ser um or Plasma by Bromocresol green (BCG) dye binding methoOrdered By: Hernandez Lares on 12-01-2023 Albumin BCG dye [Mass/Vol] 3.7 g/dL 3.5-5.7 [facility] Alkaline phosphatase [Enzyma tic activity/volume] in Serum or PlasmaOrdered By: Hernandez Lares on 12-01-2023 ALP [Catalytic activity/Vol] 89 U/L 34-104 [facility] Amorphous urine sedimentOrde red By: Hernandez Lares on 12-01-2023 Amorphous sediment LM Ql (Urine sed) See comment Negative [facility] Comment on above: Unable to obtain acc urate result due to color interference. Aspartate aminotransferase [ Enzymatic activity/volume] in Serum or PlasmaOrdered By: Hernandez Lares on 12-01-2023 AST [Catalytic activity/Vol] 20 U/L 13-39 [facility] Automated epithelial cells c ount in urine sediment (number/area)Ordered By: Hernandez Lares on 12-01-2023 Epithelial cells Auto (Urine sed) [#/Area] None seen [HPF] 0-2 [facility] Automated urine specific gra vity by refractometryOrdered By: Hernandez Lares on 12-01-2023 Specific gravity Refractometry automated (U) [Rel density] 1.010 1.001-1.03 0 [facility] BASIC METABOLIC PANLon 11-30 Anion gap [Moles/Vol] 6 mmol/L Normal 5-15 [facility] Comment on above: Performed By: #### C JOHN BMP, , 2776-07 #### [facility] ([id number]) [address], [address] [place] [address] Calcium [Mass/Vol] 8.2 mg/dL Low 8.5-10.5 [facility] Comment on above: Performed By: #### C JOHN, BMP, , 2776-07 #### [facility] ([id number]) [address], [address] [place] [address] Chloride [Moles/Vol] 104 mmol/L Normal 98-109 [facility] Comment on above: Performed By: #### C BCA BMP, , 2776-07 #### [facility] ([id number]) [address], [address] [place] [address] CO2 [Moles/Vol] 30 mmol/L Normal 22-32 [facility] Comment on above: Performed By: #### C BCA, BMP, 2776-07 #### [facility] ([id number]) [address], [address] [place] [address] Creatinine [Mass/Vol] 0.90 mg/dL Normal 0.60-1.30 [facility] Comment on above: Result Comment: METH OD TRACEABLE TO IDMS STANDARD Performed By: #### C JOHN, BMP, , 2776-07 #### [facility] ([id number]) [address], [address] [place] [address] eGFR (CKD-EPI) NON-RACE DEPENDENT >90 Normal >59 [facility] Comment on above: Result Comment: Reported eGFR is based on the CKD-EPI 2020 equation that does not use a race coefficient. Performed By: #### C JOHN, BMP, , 2776-07 #### [facility] ([id number]) [address], [address] [place] [address] Glucose [Mass/Vol] 88 mg/dL Normal 65-99 [facility] Comment on above: Performed By: #### C JOHN, BMP, , 2776-07 #### [facility] ([id number]) [address], [address] [place] [address] Potassium [Moles/Vol] 3.6 mmol/L Normal 3.5-5.0 [facility] Comment on above: Performed By: #### C BCA, BMP, , 2776-07 #### [facility] ([id number]) [address], [address] [place] [address] Sodium [Moles/Vol] 140 mmol/L Normal 134-146 [facility] Comment on above: Performed By: #### C BCA, BMP, , 2776-07 #### [facility] ([id number]) [address], [address] [place] [address] Urea nitrogen [Mass/Vol] 10 mg/dL Normal 5-23 [facility] Comment on above: Performed By: #### C BCA, BMP, , 2776-07 #### [facility] ([id number]) [address], [address] [place] [address] Bacteria [Presence] in Urine by AutomatedOrdered By: Hernandez Lares on 12-01-2023 Bacteria Auto Ql (U) None seen [HPF] None Seen [facility] Basophils Auto (Bld) [#/Vol] Ordered By: Hernandez Lares on 12-01-2023 Basophils (Bld) [#/Vol] 0.0 10*3/uL 0.0-0.2 [facility] Basophils/100 WBC Auto (Bld) Ordered By: Hernandez Lares on 12-01-2023 Basophils/100 WBC (Bld) 0.6 % . [facility] Bilirubin Auto test strip Ql (U)Ordered By: Hernandez Lares on 12-01-2023 Bilirubin Ql (U) See comment Negative [facility] Comment on above: Unable to obtain acc urate result due to color interference. Bilirubin.total [Mass/volume ] in Serum or PlasmaOrdered By: Hernandez Lares on 12-01-2023 Bilirubin [Mass/Vol] 0.5 mg/dL 0.3-1.0 [facility] CBC AND AUTO DIFFon 12-01-19 24 ABSOLUTE BASOPHIL 0.0 X10E9/L Normal 0.0-0.2 [facility] Comment on above: Performed By: #### C JOHN, [facility] [place], , 2776-07 #### [facility] ([id number]) [address], [address] [place] [address] ABSOLUTE NEUTROPHIL 4.2 X10E9/L Normal 1.5-6.6 [facility] Comment on above: Performed By: #### C BCA, BMP, , 2776-07 #### [facility] ([id number]) [address], [address] [place] [address] Basophils/100 WBC (Bld) 0.5 % Normal [facility] Comment on above: Performed By: #### C BCA, BMP, , 2776-07 #### [facility] ([id number]) [address], [address] [place] [address] Eosinophils (Bld) [#/Vol] 0.2 10*3/uL Normal 0.0-0.4 [facility] Comment on above: Performed By: #### C JOHN, BMP, , 2776-07 #### [facility] ([id number]) [address], [facility] [address] [place] [address] Eosinophils/100 WBC (Bld) 2.8 % Normal [facility] Comment on above: Performed By: #### C JOHN, BMP, , 2776-07 #### [facility] ([id number]) [address], [facility] [address] [place] [address] Erythrocyte distribution width (RBC) [Ratio] 12.9 % Normal 11.5-15.0 [facility] Comment on above: Performed By: #### C JOHN, BMP, , 2776-07 #### [facility] ([id number]) [address], [facility] [address] [place] [address] Hematocrit (Bld) [Volume fraction] 43.1 % Normal 39-49 [facility] Comment on above: Performed By: #### Richa LOPEZ, BMP, , 2776-07 #### [facility] ([id number]) [address], [facility] [address] [place] [address] Hemoglobin (Bld) [Mass/Vol] 14.9 g/dL Normal 13.0-17.0 [facility] Comment on above: Performed By: #### C JOHN, BMP, , 2776-07 #### [facility] ([id number]) [address], [facility] [address] [place] [address] Lymphocytes (Bld) [#/Vol] 1.5 10*3/uL Normal 1.0-3.5 [facility] Comment on above: Performed By: #### Richa BCA, BMP, , 2776-07 #### [facility] ([id number]) [address], [address] [place] [address] Lymphocytes/100 WBC (Bld) 23.7 % Normal [facility] Comment on above: Performed By: #### C JOHN, BMP, , 2776-07 #### [facility] ([id number]) [address], [address] [place] [address] MCH (RBC) [Entitic mass] 30.8 pg Normal 27-34 [facility] Comment on above: Performed By: #### C JOHN, BMP, , 2776-07 #### [facility] ([id number]) [address], [address] [place] [address] MCHC (RBC) [Mass/Vol] 34.5 g/dL Normal 32-36 [facility] Comment on above: Performed By: #### C JOHN, BMP, , 2776-07 #### [facility] ([id number]) [address], [address] [place] [address] MCV (RBC) [Entitic vol] 89 fL Normal 80-100 [facility] Comment on above: Performed By: #### C JOHN, BMP, , 2776-07 #### [facility] ([id number]) [address], [address] [place] [address] Monocytes (Bld) [#/Vol] 0.5 10*3/uL Normal 0-0.9 [facility] Comment on above: Performed By: #### C JOHN, BMP, , 2776-07 #### [facility] ([id number]) [address], [address] [place] [address] Monocytes/100 WBC (Bld) 8.0 % Normal [facility] Comment on above: Performed By: #### Richa LOPEZ, BMP, , 2777-1 #### [facility] ([id number]) [address], [address] [place] [address] Neutrophils/100 WBC (Bld) 65.0 % Normal [facility] Comment on above: Performed By: #### Richa LOPEZ, BMP, , 2776-07 #### [facility] ([id number]) [address], [address] [place] [address] Platelet mean volume (Bld) [Entitic vol] 7.8 fL Normal 7-12 [facility] Comment on above: Performed By: #### C JOHN, BMP, , 2776-07 #### [facility] ([id number]) [address], [facility] [address] [place] [address] Platelets (Bld) [#/Vol] 193 10*3/uL Normal 150-450 [facility] Comment on above: Performed By: #### Richa LOPEZ, BMP, , 2776-07 #### [facility] ([id number]) [address] [address] [place] [address] RBC COUNT 4.83 X10E12/L Normal 4.10-5.70 [facility] Comment on above: Performed By: #### Richa LOPEZ, BMP, , 2776-07 #### [facility] ([id number]) [address] [address] [place] [address] WBC (Bld) [#/Vol] 6.4 10*3/uL Normal 4.0-11.0 [facility] Comment on above: Performed By: #### Richa LOPEZ, BMP, , 2776-07 #### [facility] ([id number]) [address] [place] [address] Calcium [Mass/volume] in Ser um or PlasmaOrdered By: Hernandez Lares on 12-01-2023 Calcium [Mass/Vol] 8.6 mg/dL 8.6-10.3 [facility] Carbon dioxide, total [Moles /volume] in Serum or PlasmaOrdered By: Hernandez Lares on 12-01-2023 CO2 [Moles/Vol] 26.9 mmol/L 21.0-31.0 [facility] Chloride [Moles/volume] in S tito or PlasmaOrdered By: Hernandez Lares on 12-01-2023 Chloride [Moles/Vol] 105 mmol/L 98-107 [facility] Complete Blood Count Auto Di ffon 12-01-2023 Basophils (Bld) [#/Vol] 0.0 10*3/uL Normal 0.0-0.2 [facility] Comment on above: Result Comment: PERF ORMED BY: [place] [address] PATHOLOGIST MOTTLER OPERATOR HIREN KAPLAN M.D. Performed By: #### C BC, CMP #### [address] Basophils/100 WBC (Bld) 0.6 % Normal . [facility] Comment on above: Performed By: #### C BC, CMP #### [address] Eosinophils (Bld) [#/Vol] 0.2 10*3/uL Normal 0.0-0.45 [facility] Comment on above: Performed By: #### C BC, CMP #### [address] Eosinophils/100 WBC (Bld) 3.0 % Normal . [facility] Comment on above: Performed By: #### C BC, CMP #### [address] Erythrocyte distribution width (RBC) [Ratio] 12.9 % Normal 12.0-14.8 [facility] Comment on above: Performed By: #### C BC, CMP #### [address] Hematocrit (Bld) [Volume fraction] 43.0 % Normal 38.8-50.0 [facility] Comment on above: Performed By: #### C BC, CMP #### [facility] [address] [id number] [place] Hemoglobin (Bld) [Mass/Vol] 14.8 g/dL Normal 13.0-17.0 [facility] Comment on above: Performed By: #### C BC, CMP #### [address] Lymphocytes (Bld) [#/Vol] 1.8 10*3/uL Normal 1.00-4.8 [facility] Comment on above: Performed By: #### C BC, CMP #### [facility] [address] [place] [address] [place] Lymphocytes/100 WBC (Bld) 26.4 % Normal . [facility] Comment on above: Performed By: #### C BC, CMP #### [address] MCH (RBC) [Entitic mass] 30.8 pg Normal 27.5-35.2 [facility] Comment on above: Performed By: #### C BC, CMP #### [place] [address] [place] MCV (RBC) [Entitic vol] 89.5 fL Normal 83.5-101 [facility] Comment on above: Performed By: #### C BC, CMP #### [address] Mean Corpuscular HGB Conc 34.4 g/dL Normal 32.5-35.6 [facility] Comment on above: Performed By: #### C BC, CMP #### [place] [address] [place] Monocytes (Bld) [#/Vol] 0.6 10*3/uL Normal 0.0-0.8 [facility] Comment on above: Performed By: #### C BC, CMP #### [place] [address] [place] Monocytes/100 WBC (Bld) 18.12 % Normal 0.00-20.00 [facility] Comment on above: Performed By: #### C BC, CMP #### [facility] [address] [place] [address] [place] Monocytes/100 WBC (Bld) 8.8 % Normal . [facility] Comment on above: Performed By: #### C BC, CMP #### [facility] [address] [place] [address] [place] Neutrophils (Bld) [#/Vol] 4.1 10*3/uL Normal 1.8-7.7 [facility] Comment on above: Performed By: #### C BC, CMP #### [facility] [address] [place] [address] [place] Neutrophils/100 WBC (Bld) 61.2 % Normal . [facility] Comment on above: Performed By: #### C BC, CMP #### [facility] [address] NRBC% 0.1 /100{WBC} Normal 0-0.5 [facility] Comment on above: Performed By: #### C BC, CMP #### [facility] [address] [place] [address] [place] Platelet mean volume (Bld) [Entitic vol] 7.8 fL Normal 6.6-10.1 [facility] Comment on above: Performed By: #### C BC, CMP #### [facility] [address] [place] [address] [place] Platelets (Bld) [#/Vol] 229 10*3/uL Normal 150-450 [facility] Comment on above: Performed By: #### C BC, CMP #### [facility] [address] [id number] [place] RBC (Bld) [#/Vol] 4.80 10*6/uL Normal 3.90-5.60 [facility] Comment on above: Performed By: #### C BC, CMP #### [facility] [address] [id number] [place] WBC (Bld) [#/Vol] 6.7 10*3/uL Normal 4.1-10.5 [facility] Comment on above: Performed By: #### C BC, CMP #### [address] Comprehensive Metabolic Pane demetrius 12-01-2023 Albumin [Mass/Vol] 3.7 g/dL Normal 3.5-5.7 [facility] Comment on above: Performed By: #### C BC, CMP #### [address] Albumin/Globulin [Mass ratio] 1.4 {ratio} Normal [facility] Comment on above: Performed By: #### C BC, CMP #### [address] ALP [Catalytic activity/Vol] 89 U/L Normal 34-104 [facility] Comment on above: Performed By: #### C BC, CMP #### [address] ALT [Catalytic activity/Vol] 21 U/L Normal 7-52 [facility] Comment on above: Performed By: #### C BC, CMP #### [address] Anion gap [Moles/Vol] 8.7 mmol/L Normal 6.0-15.0 [facility] Comment on above: Performed By: #### C BC, CMP #### [address] AST [Catalytic activity/Vol] 20 U/L Normal 13-39 [facility] Comment on above: Performed By: #### C BC, CMP #### [address] Bilirubin [Mass/Vol] 0.5 mg/dL Normal 0.3-1.0 [facility] Comment on above: Performed By: #### C BC, CMP #### [address] Calcium [Mass/Vol] 8.6 mg/dL Normal 8.6-10.3 [facility] Comment on above: Performed By: #### C BC, CMP #### [place] [address] [place] Chloride [Moles/Vol] 105 mmol/L Normal 98-107 [facility] Comment on above: Performed By: #### C BC, CMP #### [address] CO2 [Moles/Vol] 26.9 mmol/L Normal 21.0-31.0 [facility] Comment on above: Performed By: #### C BC, CMP #### [address] Creatinine [Mass/Vol] 0.91 mg/dL Normal 0.70-1.30 [facility] Comment on above: Performed By: #### C BC, CMP #### [address] Creatinine Clr Calc Pharmacy 127.55 Normal [facility] Comment on above: Result Comment: PERF ORMED BY: [place] [address] PATHOLOGIST MOTTLER OPERATOR HIREN KAPLAN M.D. Performed By: #### C BC, CMP #### [address] GFR/1.73 sq M.predicted MDRD (S/P/Bld) [Vol rate/Area] mL/min/{1.73_m2} Normal [facility] Comment on above: Performed By: #### C BC, CMP #### [address] Globulin (S) [Mass/Vol] 2.6 g/dL Normal [facility] Comment on above: Performed By: #### C BC, CMP #### [address] Glucose [Mass/Vol] 101 mg/dL High 70-100 [facility] Comment on above: Result Comment: Kell Glucose Reference Range is dependent on time and content of last meal. Glucose of more than 200 mg/dL in a nonstressed, ambulatory subject supports the diagnosis of Diabetes Mellitus. ADA recommended reference range Performed By: #### C BC, CMP #### [address] Potassium [Moles/Vol] 3.6 mmol/L Normal 3.5-5.1 [facility] Comment on above: Performed By: #### C BC, CMP #### [address] Protein [Mass/Vol] 6.3 g/dL Low 6.4-8.9 [facility] Comment on above: Performed By: #### C BC, CMP #### [address] Sodium [Moles/Vol] 137 mmol/L Normal 136-145 [facility] Comment on above: Performed By: #### C BC, CMP #### [address] Urea nitrogen [Mass/Vol] 14 mg/dL Normal 7-25 [facility] [facility] Comment on above: Performed By: #### C BC, CMP #### [address] Creatinine [Mass/volume] in Serum or PlasmaOrdered By: Hernandez Lares on 12-01-2023 Creatinine [Mass/Vol] 0.91 mg/dL 0.70-1.30 [facility] Dipstick and Microscopicon 0 12-01-2023 Appearance (U) Turbid Critically abnormal Clear [facility] Comment on above: Order Comment: Name Collection Type:: Clean-Voided Midstream Performed By: #### A DDONUAPLUS, CUU #### [address] Bacteria,Urine None Seen Normal None Seen [facility] Comment on above: Order Comment: Name Collection Type:: Clean-Voided Midstream Result Comment: PERF ORMED BY: [place] [address] PATHOLOGIST MOTTLER OPERATOR HIREN KAPLAN M.D. Performed By: #### A DDONUAPLUS, CUU #### [address] Bilirubin,Urine Normal Negative [facility] Comment on above: Order Comment: Name Collection Type:: Clean-Voided Midstream Result Comment: Unab le to obtain accurate result due to color interference. Performed By: #### A DDONUAPLUS, CUU #### [address] Color (U) Red Critically abnormal Yellow [facility] Comment on above: Order Comment: Name Collection Type:: Clean-Voided Midstream Performed By: #### A DDONUAPLUS, CUU #### [place] [address] [place] Glucose Ql (U) Normal Normal [facility] Comment on above: Order Comment: Name Collection Type:: Clean-Voided Midstream Result Comment: Unab le to obtain accurate result due to color interference. Performed By: #### A DDONUAPLUS, CUU #### [address] Ketones Ql (U) Normal Negative [facility] Comment on above: Order Comment: Name Collection Type:: Clean-Voided Midstream Result Comment: Unab le to obtain accurate result due to color interference. Performed By: #### A DDONUAPLUS, CUU #### [place] [address] [place] Leukocyte esterase Test strip Ql (U) Normal Negative [facility] Comment on above: Order Comment: Name Collection Type:: Clean-Voided Midstream Result Comment: Unab le to obtain accurate result due to color interference. Performed By: #### A DDONUAPLUS, CUU #### [place] [address] [place] Nitrite,Urine Normal Negative [facility] Comment on above: Order Comment: Name Collection Type:: Clean-Voided Midstream Result Comment: Unab le to obtain accurate result due to color interference. Performed By: #### A DDONUAPLUS, CUU #### [place] [address] [place] Occult Blood,Urine Normal Negative [facility] Comment on above: Order Comment: Name Collection Type:: Clean-Voided Midstream Result Comment: Unab le to obtain accurate result due to color interference. Performed By: #### A DDONUAPLUS, CUU #### [address] pH,Urine Normal 5.0-9.0 [facility] Comment on above: Order Comment: Name Collection Type:: Clean-Voided Midstream Result Comment: Unab le to obtain accurate result due to color interference. Performed By: #### A DDONUAPLUS, CUU #### [address] Protein,Urine Normal Negative [facility] Comment on above: Order Comment: Name Collection Type:: Clean-Voided Midstream Result Comment: Unab le to obtain accurate result due to color interference. Performed By: #### A DDONUAPLUS, CUU #### [address] RBC,Urine Innumerable High 0-4 [facility] Comment on above: Order Comment: Name Collection Type:: Clean-Voided Midstream Performed By: #### A DDONUAPLUS, CUU #### [address] Specificy [place],Urine 1.010 Normal 1.001-1.03 0 [facility] Comment on above: Order Comment: Name Collection Type:: Clean-Voided Midstream Performed By: #### A DDONUAPLUS, CUU #### [address] Squamous Epithelial Cell,Urine None Seen Normal 0-2 [facility] Comment on above: Order Comment: Name Collection Type:: Clean-Voided Midstream Performed By: #### A DDONUAPLUS, CUU #### [address] Urobilinogen,Urine Normal Normal [facility] Comment on above: Order Comment: Name Collection Type:: Clean-Voided Midstream Result Comment: Unab le to obtain accurate result due to color interference. Performed By: #### A DDONUAPLUS, CUU #### [place] [address] [place] WBC,Urine 1-2 Normal 0-4 [facility] Comment on above: Order Comment: Name Collection Type:: Clean-Voided Midstream Performed By: #### A RICKEY ESPARZA #### [facility] [address] Eosinophils Auto (Bld) [#/Vo l]Ordered By: Hernandez Lares on 12-01-2023 Eosinophils (Bld) [#/Vol] 0.2 10*3/uL 0.0-0.45 [facility] Eosinophils/100 WBC Auto (Bl d)Ordered By: Hernandez Lares on 12-01-2023 Eosinophils/100 WBC (Bld) 3.0 % . [facility] Erythrocyte distribution wid th Auto (RBC) [Ratio]Ordered By: Hernandez Lares on 12-01-2023 Erythrocyte distribution width (RBC) [Ratio] 12.9 % 12.0-14.8 [facility] Erythrocytes [#/area] in Uri ne sediment by Automated countOrdered By: Hernandez Lares on 12-01-2023 RBC Auto (Urine sed) [#/Area] Innumerable [HPF] 0-4 [facility] Globulin Calc (S) [Mass/Vol] Ordered By: Hernandez Lares on 12-01-2023 Globulin (S) [Mass/Vol] 2.6 g/dL [facility] Glucose [Mass/volume] in Ser um or PlasmaOrdered By: Hernandez Lares on 12-01-2023 Glucose [Mass/Vol] 101 mg/dL 70-100 [facility] Comment on above: ADA recommended refe rence rangeRandom Glucose Reference Range is dependent on time and content of last meal. Glucose of more than 200 mg/dL in a nonstressed, ambulatory subject supports the diagnosis of Diabetes Mellitus. Hematocrit Auto (Bld) [Volum e fraction]Ordered By: Hernandez Lares on 12-01-2023 Hematocrit (Bld) [Volume fraction] 43.0 % 38.8-50.0 [facility] Hemoglobin [Mass/volume] in BloodOrdered By: Hernandez Lares on 12-01-2023 Hemoglobin (Bld) [Mass/Vol] 14.8 g/dL 13.0-17.0 [facility] INR in Platelet poor plasma by Coagulation assayOrdered By: Hernandez Lares on 12-01-2023 INR Coag (PPP) [Relative time] 1.0 {INR} [facility] Comment on above: INR Therapeutic Rang [...] Ketones (U) [Mass/Vol] See comment Negative [facility] Comment on above: Unable to obtain acc urate result due to color interference. Leukocytes [#/area] in Urine sediment by Automated countOrdered By: Hernandez Lares on 12-01-2023 WBC Auto (Urine sed) [#/Area] 1-2 [HPF] 0-4 [facility] Leukocytes [#/volume] correc pooja for nucleated erythrocytes in Blood by Automated counOrdered By: Hernandez Lares on 12-01-2023 WBC corrected for nucl RBC Auto (Bld) [#/Vol] 6.7 10*3/uL 4.1-10.5 [facility] Lymphocytes Auto (Bld) [#/Vo l]Ordered By: Hernandez Lares on 12-01-2023 Lymphocytes (Bld) [#/Vol] 1.8 10*3/uL 1.00-4.8 [facility] Lymphocytes/100 WBC Auto (Bl d)Ordered By: Hernandez Lares on 12-01-2023 Lymphocytes/100 WBC (Bld) 26.4 % . [facility] MAGNESIUMon 12-01-2023 Magnesium [Mass/Vol] 1.9 mg/dL Normal 1.8-2.6 [facility] Comment on above: Performed By: #### C BCA, BMP, 70794-8, 2777-1 #### [facility] ([id number]) [address], [address] [place] [address] MCH Auto (RBC) [Entitic mass ]Ordered By: Hernandez Lares on 12-01-2023 MCH (RBC) [Entitic mass] 30.8 pg 27.5-35.2 [facility] MCHC Auto (RBC) [Mass/Vol]Or dered By: Hernandez Lares on 12-01-2023 MCHC (RBC) [Mass/Vol] 34.4 g/dL 32.5-35.6 [facility] MCV Auto (RBC) [Entitic vol] Ordered By: Hernandez Lares on 12-01-2023 MCV (RBC) [Entitic vol] 89.5 fL 83.5-101 [facility] Monocyte distribution width [Entitic volume] in Blood by AutomatedOrdered By: Hernandez Lares on 12-01-2023 Monocyte distribution width Auto (Bld) [Entitic vol] 18.12 % 0.00-20.00 [facility] Monocytes Auto (Bld) [#/Vol] Ordered By: Hernandez Lares on 12-01-2023 Monocytes (Bld) [#/Vol] 0.6 10*3/uL 0.0-0.8 [facility] Monocytes/100 WBC Auto (Bld) Ordered By: Hernandez Lares on 12-01-2023 Monocytes/100 WBC (Bld) 8.8 % . [facility] Neutrophils Auto (Bld) [#/Vo l]Ordered By: Hernandez Lares on 12-01-2023 Neutrophils (Bld) [#/Vol] 4.1 10*3/uL 1.8-7.7 [facility] Neutrophils/100 WBC Auto (Bl d)Ordered By: Hernandez Lares on 12-01-2023 Neutrophils/100 WBC (Bld) 61.2 % . [facility] No Panel InformationOrdered By: Hernandez Lares on 12-01-2023 Estimated GFR (CKD-EPI) > 60.0 mL/Min [facility] Creatinine Clearance (Chem 127.55 [facility] Nucleated erythrocytes [Pres ence] in Blood by Automated countOrdered By: Hernandez Lares on 12-01-2023 Nucleated RBC Auto Ql (Bld) 0.1 /100{WBC} 0-0.5 [facility] PHOSPHORUSon 12-01-2023 Phosphate [Mass/Vol] 3.3 mg/dL Normal 2.4-4.9 [facility] Comment on above: Performed By: #### C BCA, BMP, 04121-9, 2777-1 #### [facility] ([id number]) [address] [place] [id number] Partial Thromboplastin Timeo n 12-01-2023 aPTT Coag (Bld) [Time] 31.9 s Normal 25.1-36.5 [facility] Comment on above: Order Comment: REDRA W: PRIOR SAMPLE QNS Result Comment: A he matocrit value greater than 55% may lead to inaccurate results in coagulation testing. Patients having hematocrit values >55% require a special collection tube for coagulation studies. Please contact the laboratory at [phone] for redraw instructions. PERFORMED BY: [place] [address] PATHOLOGIST MOTTLER OPERATOR HIREN KAPLAN M.D. Performed By: #### P TT, PT #### [address] Platelet mean volume Auto (B ld) [Entitic vol]Ordered By: Hernandez Lares on 12-01-2023 Platelet mean volume (Bld) [Entitic vol] 7.8 fL 6.6-10.1 [facility] Platelets Auto (Bld) [#/Vol] Ordered By: Hernandez Lares on 12-01-2023 Platelets (Bld) [#/Vol] 229 10*3/uL 150-450 [facility] Potassium [Moles/volume] in Serum or PlasmaOrdered By: Hernandez Lares on 12-01-2023 Potassium [Moles/Vol] 3.6 mmol/L 3.5-5.1 [facility] Protein Auto test strip (U) [Mass/Vol]Ordered By: Hernandez Lares on 12-01-2023 Protein (U) [Mass/Vol] See comment Negative [facility] Comment on above: Unable to obtain acc urate result due to color interference. Protein [Mass/volume] in Ser um or PlasmaOrdered By: Hernandez Lares on 12-01-2023 Protein [Mass/Vol] 6.3 g/dL 6.4-8.9 [facility] Prothrombin Time INRon 11-30 INR Coag (PPP) [Relative time] 1.0 {INR} Normal [facility] Comment on above: Order Comment: [...] Performed By: #### P TT, PT #### [facility] [address] [id number] [facility] PT Coag (PPP) [Time] 11.9 s Normal 9.0-12.9 [facility] Comment on above: Order Comment: REDRA W: PRIOR SAMPLE QNS Result Comment: A he matocrit value greater than 55% may lead to inaccurate results in coagulation testing. Patients having hematocrit values >55% require a special collection tube for coagulation studies. Please contact the laboratory at [phone] for redraw instructions. Performed By: #### P TT, PT #### [facility] [address] [id number] [facility] Prothrombin time (PT)Ordered By: Hernandez Lares on 12-01-2023 PT Coag (PPP) [Time] 11.9 s 9.0-12.9 [facility] Comment on above: A hematocrit value g reater than 55% may lead to inaccurate results in coagulation testing. Patients having hematocrit values >55% require a special collection tube for coagulation studies. Please contact the laboratory at [phone] for redraw instructions. RBC Auto (Bld) [#/Vol]Ordere d By: Hernandez Lares on 12-01-2023 RBC (Bld) [#/Vol] 4.80 10*6/uL 3.90-5.60 [facility] Serum or plasma albumin/glob ulin mass ratioOrdered By: Hernandez Lares on 12-01-2023 Albumin/Globulin [Mass ratio] 1.4 {ratio} [facility] Serum or plasma anion gap de terminationOrdered By: Hernandez Lares on 12-01-2023 Anion gap [Moles/Vol] 8.7 mmol/L 6.0-15.0 [facility] Sodium [Moles/volume] in Ser um or PlasmaOrdered By: Hernandez Lares on 12-01-2023 Sodium [Moles/Vol] 137 mmol/L 136-145 [facility] Urea nitrogen [Mass/volume] in Serum or PlasmaOrdered By: Hernandez Lares on 12-01-2023 Urea nitrogen [Mass/Vol] 14 mg/dL 7-25 [facility] Urine Cultureon 12-01-2023 Bacteria identified Cx Nom (U) No Growth 2 Days PERFORMED BY: [place] [address] PATHOLOGIST MOTTLER OPERATOR HIREN KAPLAN M.D. Normal [facility] Comment on above: Performed By: #### A DDONUAPLUS, CUU #### [address] Urine appearanceOrdered By: Hernandez Lares on 12-01-2023 Appearance (U) Turbid Clear [facility] Urine colorOrdered By: Mary Lares on 12-01-2023 Color (U) Red Yellow [facility] Urine glucose measurement by automated test strip (mass/volume)Ordered By: Hernandez Lares on 12-01-2023 Glucose Auto test strip (U) [Mass/Vol] See comment Normal [facility] Comment on above: Unable to obtain acc urate result due to color interference. Urine leukocyte esterase det ection by automated test stripOrdered By: Hernandez Lares on 12-01-2023 Leukocyte esterase Auto test strip Ql (U) See comment Negative [facility] Comment on above: Unable to obtain acc urate result due to color interference. Urine nitrite detection by a utomated test stripOrdered By: Hernandez Lares on 12-01-2023 Nitrite Auto test strip Ql (U) See comment Negative [facility] Comment on above: Unable to obtain acc urate result due to color interference. Urobilinogen Test strip (U) [Mass/Vol]Ordered By: Hernandez Lares on 12-01-2023 Urobilinogen (U) [Mass/Vol] See comment Normal [facility] Comment on above: Unable to obtain acc urate result due to color interference. WBC Auto (Bld) [#/Vol]Ordere d By: Hernandez Lares on 12-01-2023 WBC (Bld) [#/Vol] 6.7 10*3/uL 4.1-10.5 [facility] pH Auto test strip (U)Ordere d By: Hernandez Lares on 12-01-2023 pH (U) See comment 5.0-9.0 [facility] Comment on above: Unable to obtain [...] Diaz MD on 11/22/2023 9:16 PM Normal [facility] Cytologyon 11-13-2023 Cytology Normal [facility] Comment on above: Result Comment: [facility] [address] [place] [address] Cytology Consultation Patient Name:RENO ABREU:1970 (Age: 52)Gender:MTaken:4Reported:11/15/2023 16:54Physician(s):Lida Shu M.D. ([phone])Copy To: Rec. #:[id number]: #[id number] Final Cytologic Diagnosis Urine: Negative for high-grade urothelial cell carcinoma. nx11/15/2023 Interpretation performed at [facility], [address] [place] [address], License number: [id number].Electronically Signed Out By Álvaro Yanez MD Clinical History Malignant neoplasm of overlapping sites of bladder ([facility]) (C67.8). History of low grade urothelial cancer. Gross Description Received was 50 mL of yellow fluid in preservative labeled as Brady, urine, clean catch midstream . 40 mL used for Cytology. See [employer] report. 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 This test has been modified from the river pilot's instructions. Its performance characteristics were determined by [facility] in a manner consistent with CLIA requirements. This test has not been cleared or approved by the U.S. Food and Drug Administration. Reason for Referral Evaluate for urothelial carcinoma. Specimen Varies Source Urine, NOS Released By Adrianna Proctor M.D. Test Performed by: [facility] - [address] [address] Publishing Manager: Bear Mares M.D. Ph.D.; CLIA# [id number] URINE CULTUREon 11-13-2023 Bacteria identified Cx Nom (U) CULTURE RESULTS NO GROWTH AT <1000 CFU/mL Normal [facility] Comment on above: Performed By: #### 6 30-4 #### [facility] ([id number]) [address] [place] [address] [address] [place] [address] Surgical Pathologyon 024 Surgical Pathology Normal [facility] Comment on above: Result Comment: [facility] [address] [place] [address] Surgical Pathology Consultation Patient Name:RENO ABREU:1970 (Age: 52)Gender:MTaken:4Reported:11/01/2023hysician(s):Stephanie Suh M.D. ([phone])Copy To: Rec. #:[id number]: #[id number] Final Pathologic Diagnosis Bladder, TURB: Non-invasive PAPILLARY UROTHELIAL CARCINOMA, low grade. Muscularis propria is present. No invasion into the lamina propria or muscularis propria identified. Report Electronically Signed Out cjb/11/01/2023vanessa Partida MD Interpretation performed at [facility], [address] [place] [address], License number: [id number]. Clinical History Hematuria, microscopic. Bladder tumor, lateral to the right ureteral orifice. Gross Description Received in formalin labeled BRADY, bladder are 8 mosqueda irregular fragments of soft tissue, ranging from 0.2 to 0.6 cm in greatest dimension. Filtered and submitted in a single cassette. (1, ns, [id number], m6) MG mjg/10/30/2023O Specimen(s) Received Bladder tumor lateral to the right ureteral orifice Fee Codes(s): 1; 81760 Prostate specific Ag [Mass/V ol]on 10-17-2023 PROSTATIC SPEC ANT 2.43 ng/mL Normal 0.00-4.00 [facility] Comment on above: Result Comment: The method used for this test is [employer] DXI chemiluminescent immunoassay. Values obtained by different assay methods cannot be used interchangeably. Performed By: #### 2 857-1 #### [facility] ([id number]) [address] [place] [address], [address] [place] [address] URINALYSISon 10-17-2023 Bilirubin Ql (U) Negative Normal NEG [facility] BLOOD/HGB Trace Abnormal NEG [facility] Color (U) YELLOW Normal YELLOW [facility] Glucose Ql (U) Negative Normal NEG [facility] Ketones Ql (U) Negative Normal NEG [facility] Leukocyte esterase Test strip Ql (U) Negative Normal NEG [facility] Nitrite Ql (U) Negative Normal NEG [facility] pH (U) 6.0 [pH] Normal 5.0-8.5 [facility] Protein Ql (U) Trace Abnormal NEG [facility] R.B.CELLS <1 Normal 0-5 [facility] Specific gravity (U) [Rel density] 1.020 Normal 1.003-1.03 5 [facility] TURBIDITY CLEAR Normal CLEAR [facility] Urobilinogen (U) [Mass/Vol] mg/dL Normal <1.1 [facility] W.B.CELLS 3 /hpf Normal 0-5 [facility] URINE CULTUREon 10-17-2023 Bacteria identified Cx Nom (U) CULTURE RESULTS <10,000 ORGANISMS/ML NORMAL URO GENITAL ANIL Normal [facility] Comment on above: Performed By: #### 6 30-4 #### [facility] ([id number]) [address] [place] [address] CT UROGRAMon 10-01-[address] UROGRAM [...] Alcala MD on 10/01/2023 1:03 PM Normal [facility] Cytologyon 09-04-2023 Cytology Normal [facility] Comment on above: Result Comment: [facility] [address] [place] [address] Cytology Consultation Patient Name:EBER ABREUOB:1970 (Age: 52)Gender:MTaken:09/04/2023eported:09/06/2023 18:36Physician(s):Lida Suh M.D. ([phone])Copy To: Rec. #:[id number]: #[id number] Final Cytologic Diagnosis Urine: Negative for high-grade urothelial cell carcinoma. ssi/09/06/2023 Interpretation performed at [facility], [address] [place] [address], License number: [id number].Electronically Signed Out By Brandt Rsoas M.D. Clinical History Hematuria, microscopic (R31.29). Gross Description Received was 70 mL of yellow fluid unfixed labeled as Brady, urine . CytoLyt added in lab. 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 Pablo Blanchard Aspartate aminotransferase [ Enzymatic activity/volume] in Serum or PlasmaOrdered By: Hernandez Lares on 09-04-2022 AST [Catalytic activity/Vol] 22 U/L 10-42 [facility] Automated erythrocytes count in urine sediment (number/area)Ordered By: Hernandez Lares on 09-04-2022 RBC Auto (Urine sed) [#/Area] 3-4 [HPF] 0-4 [facility] Automated leukocytes count i n urine sediment (number/area)Ordered By: Hernandez Lares on 09-04-2022 WBC Auto (Urine sed) [#/Area] 3-4 [HPF] 0-4 [facility] Basophils Auto (Bld) [#/Vol] Ordered By: Hernandez Lares on 09-04-2022 Basophils (Bld) [#/Vol] 0.1 10*3/uL 0.0-0.2 [facility] Basophils/100 WBC Auto (Bld) Ordered By: Hernandez Lares on 09-04-2022 Basophils/100 WBC (Bld) 0.7 % . [facility] Bilirubin Test strip Ql (U)O rdered By: Hernandez Lares on 09-04-2022 Bilirubin Ql (U) Negative Negative [facility] Body fluid albumin measureme nt (mass/volume)Ordered By: Hernandez Lares on 09-04-2022 Albumin (Body fld) [Mass/Vol] 3.6 g/dL 3.2-5.5 [facility] COVID CepheidOrdered By: Chapo Lares on 09-04-2022 SARS-CoV-2 (COVID-19) Ab IA Ql Negative Negative [facility] Comment on above: This is a duplicate [employer] Xpert Xpress CoV-2/Flu/RSV Plus RNA by RT-PCR result to be used for statistical tracking purpose only. SARS-CoV-2 (COVID-19) RNA NANCIE+probe Ql (Unsp spec) [facility] SARS-CoV-2 (COVID-19) RNA NANCIE+probe Ql (Unsp spec) [facility] Color Auto (U)Ordered By: Brandon Lares on 09-04-2022 Color (U) Yellow Yellow [facility] Creatine kinase [Enzymatic a ctivity/volume] in Serum or PlasmaOrdered By: Hernandez Lares on 09-04-2022 CK [Catalytic activity/Vol] 72 U/L 22- [facility] Creatine kinase.MB [Mass/vol ume] in Serum or PlasmaOrdered By: Hernandez Lares on 09-04-2022 CK.MB [Mass/Vol] 0.7 ng/mL 0.6-6.3 [facility] Creatinine and Glomerular fi ltration rate.predicted panel (S/P/Bld)Ordered By: Hernandez Lares on 09-04-2022 Creatinine [Mass/Vol] 1.01 mg/dL 0.64-1.27 [facility] Eosinophils Auto (Bld) [#/Vo l]Ordered By: Hernandez Lares on 09-04-2022 Eosinophils (Bld) [#/Vol] 0.2 10*3/uL 0.0-0.45 [facility] Eosinophils/100 WBC Auto (Bl d)Ordered By: Hernandez Lares on 09-04-2022 Eosinophils/100 WBC (Bld) 2.5 % . [facility] Erythrocyte distribution wid th Auto (RBC) [Ratio]Ordered By: Hernandez Lares on 09-04-2022 Erythrocyte distribution width (RBC) [Ratio] 13.1 % 12.0-14.8 [facility] Estimated glomerular filtrat ion rate (GFR) non- AmericanOrdered By: Hernandez Lares on 09-04-2022 GFR/1.73 sq M.predicted among non-blacks MDRD (S/P/Bld) [Vol rate/Area] > 60 mL/Min [facility] Globulin Calc (S) [Mass/Vol] Ordered By: Hernandez Lares on 09-04-2022 Globulin (S) [Mass/Vol] 2.9 g/dL [facility] Hematocrit Auto (Bld) [Volum e fraction]Ordered By: Hernandez Lares on 09-04-2022 Hematocrit (Bld) [Volume fraction] 45.8 % 38.8-50.0 [facility] Hemoglobin [Mass/volume] in BloodOrdered By: Hernandez Lares on 09-04-2022 Hemoglobin (Bld) [Mass/Vol] 15.6 g/dL 13.0-17.0 [facility] Ketones Auto test strip (U) [Mass/Vol]Ordered By: Hernandez Lares on 09-04-2022 Ketones (U) [Mass/Vol] Trace Negative [facility] - UrinalysisOrder ed By: Hernandez Lares on 09-04-2022 Hyaline casts LM Ql (Urine sed) None seen [LPF] 0-8 [facility] Leukocytes [#/volume] correc pooja for nucleated erythrocytes in Blood by Automated counOrdered By: Hernandez Lares on 09-04-2022 WBC corrected for nucl RBC Auto (Bld) [#/Vol] 8.2 10*3/uL 4.1-10.5 [facility] Lymphocytes Auto (Bld) [#/Vo l]Ordered By: Hernandez Lares on 09-04-2022 Lymphocytes (Bld) [#/Vol] 2.2 10*3/uL 1.00-4.8 [facility] Lymphocytes/100 WBC Auto (Bl d)Ordered By: Hernandez Lares on 09-04-2022 Lymphocytes/100 WBC (Bld) 26.2 % . [facility] MCH Auto (RBC) [Entitic mass ]Ordered By: Hernandez Lares on 09-04-2022 MCH (RBC) [Entitic mass] 30.7 pg 27.5-35.2 [facility] MCHC Auto (RBC) [Mass/Vol]Or dered By: Hernandez Lares on 09-04-2022 MCHC (RBC) [Mass/Vol] 34.1 g/dL 32.5-35.6 [facility] MCV Auto (RBC) [Entitic vol] Ordered By: Hernandez Lares on 09-04-2022 MCV (RBC) [Entitic vol] 89.9 fL 83.5-101 [facility] Monocyte distribution width [Entitic volume] in Blood by AutomatedOrdered By: Hernandez Lares on 09-04-2022 Monocyte distribution width Auto (Bld) [Entitic vol] 16.89 % 0.00-20.00 [facility] Monocytes Auto (Bld) [#/Vol] Ordered By: Hernandez Lares on 09-04-2022 Monocytes (Bld) [#/Vol] 0.7 10*3/uL 0.0-0.8 [facility] Monocytes/100 WBC Auto (Bld) Ordered By: Hernandez Lares on 09-04-2022 Monocytes/100 WBC (Bld) 8.1 % . [facility] Neutrophils Auto (Bld) [#/Vo l]Ordered By: Hernandez Lares on 09-04-2022 Neutrophils (Bld) [#/Vol] 5.1 10*3/uL 1.8-7.7 [facility] Neutrophils/100 WBC Auto (Bl d)Ordered By: Hernandez Lares on 09-04-2022 Neutrophils/100 WBC (Bld) 62.5 % . [facility] Nitrite Test strip Ql (U)Ord ered By: Hernandez Lares on 09-04-2022 Nitrite Ql (U) Negative Negative [facility] No Panel InformationOrdered By: Heranndez Lares on 09-04-2022 Estimated GFR () > 60 mL/Min [facility] Comment on above: GFR estimated refere nce range: According to KDOQI guidelines, <60 ml/min/1.73m2 is sufficient to diagnose a patient with chronic kidney disease. Pharmacy Creatinine Clearance (Chem 116.51 [facility] Nucleated erythrocytes [Pres ence] in Blood by Automated countOrdered By: Hernandez Lares on 09-04-2022 Nucleated RBC Auto Ql (Bld) 0.1 /100{WBC} 0-0.5 [facility] Platelet mean volume Auto (B ld) [Entitic vol]Ordered By: Hernandez Lares on 09-04-2022 Platelet mean volume (Bld) [Entitic vol] 7.8 fL 6.6-10.1 [facility] Platelets Auto (Bld) [#/Vol] Ordered By: Hernandez Lares on 09-04-2022 Platelets (Bld) [#/Vol] 224 10*3/uL 150-450 [facility] Protein Auto test strip (U) [Mass/Vol]Ordered By: Hernandez Lares on 09-04-2022 Protein (U) [Mass/Vol] 100 mg/dL Negative [facility] Protein [Mass/volume] in Ser um or PlasmaOrdered By: Hernandez Lares on 09-04-2022 Protein [Mass/Vol] 6.5 g/dL 6.1-7.9 [facility] RBC Auto (Bld) [#/Vol]Ordere d By: Hernandez Lares on 09-04-2022 RBC (Bld) [#/Vol] 5.09 10*6/uL 3.90-5.60 [facility] Serum or plasma alanine sotrey otransferase measurement without P-5'-P (enzymatic activiOrdered By: Hernandez Lares on 09-04-2022 ALT No additional P-5'-P [Catalytic activity/Vol] 26 U/L 10-60 [facility] Serum or plasma albumin/glob ulin mass ratioOrdered By: Hernandez Lares on 09-04-2022 Albumin/Globulin [Mass ratio] 1.2 {ratio} [facility] Serum or plasma alkaline alexandro sphatase measurement (enzymatic activity/volume)Ordered By: Hernandez Lares on 09-04-2022 ALP [Catalytic activity/Vol] 85 U/L 32-92 [facility] Serum or plasma anion gap de terminationOrdered By: Hernandez Lares on 09-04-2022 Anion gap [Moles/Vol] 15.6 mmol/L 6.0-15.0 [facility] Serum or plasma calcium angie urement (mass/volume)Ordered By: Hernandez Lares on 09-04-2022 Calcium [Mass/Vol] 8.8 mg/dL 8.2-10.2 [facility] Serum or plasma chloride rocio surement (moles/volume)Ordered By: Hernandez Lares on 09-04-2022 Chloride [Moles/Vol] 101 mmol/L 95-114 [facility] Serum or plasma creatine kin ase MB (CKMB)/total creatine kinase (CK) ratio by calculaOrdered By: Hernandez Lares on 09-04-2022 CK.MB Calc [Catalytic fraction] 0.9 % 0.00-2.50 [facility] Serum or plasma glucose angie urement (mass/volume)Ordered By: Hernandez Lares on 09-04-2022 Glucose [Mass/Vol] 99 mg/dL 70-100 [facility] Comment on above: ADA recommended refe rence rangeRandom Glucose Reference Range is dependent on time and content of last meal. Glucose of more than 200 mg/dL in a nonstressed, ambulatory subject supports the diagnosis of Diabetes Mellitus. Serum or plasma potassium me asurement (moles/volume)Ordered By: Hernandez Lares on 09-04-2022 Potassium [Moles/Vol] 4.0 mmol/L 3.5-5.1 [facility] Serum or plasma sodium measu rement (moles/volume)Ordered By: Hernandez Lares on 09-04-2022 Sodium [Moles/Vol] 138 mmol/L 136-146 [facility] Serum or plasma total biliru bin measurement (mass/volume)Ordered By: Hernandez Lares on 09-04-2022 Bilirubin [Mass/Vol] 0.6 mg/dL 0.3-1.2 [facility] Serum or plasma total carbon dioxide measurement (moles/volume)Ordered By: Hernandez Lares on 09-04-2022 CO2 [Moles/Vol] 25.4 mmol/L 22.0-30.0 [facility] Serum or plasma urea nitroge n measurement (mass/volume)Ordered By: Hernandez Lares on 09-04-2022 Urea nitrogen [Mass/Vol] 13 mg/dL 9- [facility] Specific gravity Auto test s trip (U) [Rel density]Ordered By: Hernandez Lares on 09-04-2022 Specific gravity (U) [Rel density] 1.027 1.001-1.03 0 [facility] Spermatozoa detection in uri ne sediment by light microscopyOrdered By: Hernandez Lares on 09-04-2022 Spermatozoa LM Ql (Urine sed) 3-4 [HPF] 0-2 [facility] Squamous epithelial cells de tection in urine sediment by light microscopyOrdered By: Hernandez Lares on 09-04-2022 Epithelial cells.squamous LM Ql (Urine sed) None seen [HPF] 0-2 [facility] Troponin I.cardiac [Mass/vol ume] in Serum or Plasma by High sensitivity methodOrdered By: Hernandez Lares on 09-04-2022 Troponin I.cardiac High sensitivity method [Mass/Vol] < 3 pg/mL 0-20 [facility] Urine bacteria detection by automated methodOrdered By: Hernandez Lares on 09-04-2022 Bacteria Auto Ql (U) None seen None Seen [facility] Urine clarity by refractomet ry automatedOrdered By: Hernandez Lares on 09-04-2022 Clarity Refractometry automated (U) Clear Clear [facility] Urine glucose measurement by automated test strip (mass/volume)Ordered By: Hernandez Lares on 09-04-2022 Glucose Auto test strip (U) [Mass/Vol] Normal mg/dL Normal [facility] Urine hemoglobin detection b y automated test stripOrdered By: Hernandez Lares on 09-04-2022 Hemoglobin Auto test strip Ql (U) Negative Negative [facility] Urine leukocyte esterase det ection by automated test stripOrdered By: Hernandez Lares on 09-04-2022 Leukocyte esterase Auto test strip Ql (U) Negative Negative [facility] Urobilinogen Auto test strip (U) [Mass/Vol]Ordered By: Hernandez Lares on 09-04-2022 Urobilinogen (U) [Mass/Vol] Normal mg/dL Normal [facility] WBC Auto (Bld) [#/Vol]Ordere d By: Hernandez Lares on 09-04-2022 WBC (Bld) [#/Vol] 8.2 10*3/uL 4.1-10.5 [facility] pH Auto test strip (U)Ordere d By: Hernandez Lares on 09-04-2022 pH (U) 6.0 [pH] 5.0-9.0 [facility] CBC AUTO DIFFon 03-08-2022 BASO # 0.0 103/ul Normal 0.0-0.1 [facility] Comment on above: Performed By: #### C BC #### [facility] [address] [place] [address] Dr. Pablo Blanchard Basophils/100 WBC (Bld) 0.4 % Normal 0.2-2.0 [facility] Comment on above: Performed By: #### C BC #### [facility] [address] [place] [address] Dr. Pablo Blanchard EO # 0.2 103/ul Normal 0.0-0.7 [facility] Comment on above: Performed By: #### C BC #### [facility] [address] [place] [address] Dr. Pablo Blanchard Eosinophils/100 WBC (Bld) 2.5 % Normal 0.9-7.0 [facility] Comment on above: Performed By: #### C BC #### [facility] [address] [place] [address] Dr. Pablo Blanchard Erythrocyte distribution width (RBC) [Ratio] 12.2 % Normal 11.0-15.0 [facility] Comment on above: Performed By: #### C BC #### [facility] [address] [place] [address] Dr. Pablo Blanchard Hematocrit (Bld) [Volume fraction] 49.2 % Normal 42.0-54.0 [facility] Comment on above: Performed By: #### C BC #### [facility] [address] [place] [address] Dr. Pablo Blanchard Hemoglobin (Bld) [Mass/Vol] 16.1 g/dL Normal 14.0-18.0 [facility] Comment on above: Performed By: #### C BC #### [facility] [address] [place] [address] Dr. Pablo Blanchard IG # 0.03 10e3/ul Normal 0.00-0.03 [facility] Comment on above: Performed By: #### C BC #### [facility] [address] [place] [address] Dr. Pablo Blanchard IG % 0.4 % Normal 0.0-0.5 [facility] Comment on above: Performed By: #### C BC #### [facility] [address] [place] [address] Dr. Pablo Blanchard LYMPH # 1.5 103/ul Normal 1.2-3.8 [facility] Comment on above: Performed By: #### C BC #### [facility] [address] [place] [address] Dr. Pablo Blanchard Lymphocytes/100 WBC (Bld) 20.1 % Critically low 20.5-60.0 [facility] Comment on above: Performed By: #### C BC #### [facility] [address] [place] [address] Dr. Pablo Blanchard MANUAL DIFF REQ NO Normal [facility] Comment on above: Performed By: #### C BC #### [facility] [address] [place] [address] Dr. Pablo Blanchard MCH (RBC) [Entitic mass] 30.4 pg Normal 25.9-34.0 [facility] Comment on above: Performed By: #### C BC #### [facility] [address] [place] [address] Dr. Pablo Blanchard MCHC (RBC) [Mass/Vol] 32.7 g/dL Normal 29.9-35.2 [facility] Comment on above: Performed By: #### C BC #### [facility] [address] [place] [address] Dr. Pablo Blanchard MCV (RBC) [Entitic vol] 92.8 fL Normal 80.0-94.0 [facility] Comment on above: Performed By: #### C BC #### [facility] [address] [place] [address] Dr. Pablo Blanchard MONO # 0.6 103/ul Normal 0.3-0.8 [facility] Comment on above: Performed By: #### C BC #### [facility] [address] [place] [address] Dr. Pablo Blanchard Monocytes/100 WBC (Bld) 8.1 % Normal 1.7-12.0 [facility] Comment on above: Performed By: #### C BC #### [facility] [address] [place] [address] Dr. Pablo Blanchard NEUT # 5.1 103/ul Normal 1.4-6.5 [facility] Comment on above: Performed By: #### C BC #### [facility] [address] [place] [address] Dr. Pablo Blanchard Neutrophils/100 WBC (Bld) 68.5 % Normal 43.0-75.0 [facility] Comment on above: Performed By: #### C BC #### [facility] [address] [place] [address] Dr. Pablo Blanchard Platelet mean volume (Bld) [Entitic vol] 9.2 fL Critically low 9.5-13.5 [facility] Comment on above: Performed By: #### C BC #### [facility] [address] [place] [address] Dr. Pablo Blanchard PLT 231 103/ul Normal 150-450 [facility] Comment on above: Performed By: #### C BC #### [facility] [address] [place] [address] Dr. Pablo Blanchard RBC 5.30 106/ul Normal 4.70-6.10 [facility] Comment on above: Performed By: #### C BC #### [facility] [address] [place] [address] Dr. Pablo Blanchard WBC 7.5 103/ul Normal 4.0-11.0 [facility] Comment on above: Performed By: #### C BC #### [facility] [address] [place] [address] Dr. Pablo Blanchard GLYCOHEMOGLOBIN A1Con 2021 ADA RECOMMENDATION SEE BELOW Normal [facility] Comment on above: Result Comment: ADA RECOMMENDED LIMIT 4.0 - 6.0 ADA THERAPEUTIC TARGET < 7.0 ACTION SUGGESTED > 7.0 Performed By: #### A 1C #### [facility] [address] [place] [address] Dr. Pablo Blanchard Glucose [Mass/Vol] 97 mg/dL Normal [facility] Comment on above: Performed By: #### A 1C #### [facility] [address] [place] [address] Dr. Pablo Blanchard HbA1c (Bld) [Mass fraction] 5.0 % Normal 4.5-6.2 [facility] Comment on above: Performed By: #### A 1C #### [facility] [address] [place] [address] Dr. Pablo Blanchard LIPID PROFILEon 03-08-2022 CHOL-HDL RATIO NORM SEE BELOW Normal [facility] Comment on above: Result Comment: 3.3 - 4.4 LOW RISK 4.4 - 7.1 AVERAGE RISK 7.1 - 11.0 MODERATE RISK >11.0 HIGH RISK Performed By: #### L IPID, CMP #### [facility] [address] [place] [address] Dr. Pablo Blanchard Cholesterol [Mass/Vol] 205 mg/dL Critically high <=200 [facility] Comment on above: Performed By: #### L IPID, CMP #### [facility] [address] [place] [address] Dr. Pablo Blanchard Cholesterol in HDL [Mass/Vol] 40 mg/dL Normal 40-60 [facility] Comment on above: Performed By: #### L IPID, CMP #### [facility] [address] [address] [address] Pablo Blanchard Cholesterol in LDL [Mass/Vol] 150.6 mg/dL Normal [facility] Comment on above: Performed By: #### L IPID, CMP #### [facility] [address] [place] [address] Dr. Pablo Blanchard Cholesterol.total/Chol esterol in HDL [Mass ratio] 5.1 {ratio} Normal [facility] Comment on above: Performed By: #### L IPID, CMP #### [facility] [address] [place] [address] Dr. Pablo Blanchard HDL NORMAL > or = 60 mg/dl - LO W CARDIOVASCULAR RISK <40 mg/dl - HIGH CARDIOVASCULAR RISK Normal [facility] Comment on above: Performed By: #### L IPID, CMP #### [facility] [address] [place] [address] Dr. Pablo Blanchard LDL CALC NORMAL SEE BELOW Normal [facility] Comment on above: Result Comment: <100 mg/dl OPTIMAL 100 - 129 mg/dl NEAR OR ABOVE OPTIMAL 130 - 159 mg/dl BORDERLINE HIGH 160 - 189 mg/dl HIGH >190 mg/dl VERY HIGH Performed By: #### L IPID, CMP #### [facility] [address] [place] [address] Dr. Pablo Blanchard Triglyceride [Mass/Vol] 72 mg/dL Normal <=150 [facility] Comment on above: Performed By: #### L IPID, CMP #### [facility] [address] [place] [address] Dr. Pablo Blanchard VLDL CALC 14.4 mg/dL Normal [facility] Comment on above: Performed By: #### L IPID, CMP #### [facility] [address] [place] [address] Dr. Pablo Blanchard PROF 14(COMP METB)on 022 Albumin [Mass/Vol] 3.3 g/dL Critically low 3.4-5.0 [facility] Comment on above: Performed By: #### L IPID, CMP #### [facility] [address] [place] [address] Dr. Pablo Blanchard Albumin/Globulin [Mass ratio] 1.0 {ratio} Normal [facility] Comment on above: Performed By: #### L IPID, CMP #### [facility] [address] [address] [address] Pablo Blanchard ALP [Catalytic activity/Vol] 98 U/L Normal 46-116 [facility] Comment on above: Performed By: #### L IPID, CMP #### [facility] [address] [address] [address] Pablo Blanchard ALT [Catalytic activity/Vol] 33 U/L Normal 16-63 [facility] Comment on above: Performed By: #### L IPID, CMP #### [facility] [address] [place] [address] Dr. Pablo Blanchard Anion gap [Moles/Vol] 9.4 mmol/L Normal [facility] Comment on above: Performed By: #### L IPID, CMP #### [facility] [address] [place] [address] Dr. Pablo Blanchard AST [Catalytic activity/Vol] 16 U/L Normal 15-37 [facility] Comment on above: Performed By: #### L IPID, CMP #### [facility] [address] [place] [address] Dr. Pablo Blanchard Bilirubin [Mass/Vol] 0.7 mg/dL Normal 0.2-1.0 [facility] Comment on above: Performed By: #### L IPID, CMP #### [facility] [address] [place] [address] Dr. Pablo Blanchard Calcium [Mass/Vol] 8.0 mg/dL Critically low 8.5-10.1 [facility] Comment on above: Performed By: #### L IPID, CMP #### [facility] [address] [place] [address] Dr. Pablo Blanchard Chloride [Moles/Vol] 104 mmol/L Normal 98-107 [facility] Comment on above: Performed By: #### L IPID, CMP #### [facility] [address] [address] [address] Pablo Blanchard CO2 [Moles/Vol] 30.5 mmol/L Normal 21.0-32.0 [facility] Comment on above: Performed By: #### L IPID, CMP #### [facility] [address] [address] [address] Pablo Blanchard Creatinine [Mass/Vol] 1.02 mg/dL Normal 0.70-1.30 [facility] Comment on above: Performed By: #### L IPID, CMP #### [facility] [address] [address] [address] Pablo Blanchard EGFR-AF BURUNDIAN >60 Normal >=60 [facility] Comment on above: Performed By: #### L IPID, CMP #### [facility] [address] [place] [address] Dr. Pablo Blanchard EGFR-NON AF BURUNDIAN >60 Normal >=60 [facility] Comment on above: Performed By: #### L IPID, CMP #### [facility] [address] [address] [address] Pablo Blanchard Globulin (S) [Mass/Vol] 3.4 g/dL Normal [facility] Comment on above: Performed By: #### L IPID, CMP #### [facility] [address] [place] [address] Dr. Pablo Blanchard Glucose [Mass/Vol] 108 mg/dL Critically high 74-[address] [facility] Comment on above: Performed By: #### L IPID, CMP #### [facility] [address] [address] [address] Pablo Blanchard Potassium [Moles/Vol] 3.9 mmol/L Normal 3.5-5.1 [facility] Comment on above: Performed By: #### L IPID, CMP #### [facility] [address] [address] [address] Pablo Blanchard Protein [Mass/Vol] 6.7 g/dL Normal 6.4-8.2 [facility] Comment on above: Performed By: #### L IPID, CMP #### [facility] [address] [place] [address] Dr. Pablo Blanchard Sodium [Moles/Vol] 140 mmol/L Normal 136-145 [facility] Comment on above: Performed By: #### L IPID, CMP #### [facility] [address] [place] [address] Dr. Pablo Blanchard Urea nitrogen [Mass/Vol] 11.0 mg/dL Normal 7.0-18.0 [facility] Comment on above: Performed By: #### L IPID, CMP #### [facility] [address] [place] [address] Dr. Pablo Blanchard Urea nitrogen/Creatinine [Mass ratio] 10.8 mg/mg Normal [facility] Comment on above: Performed By: #### L IPID, CMP #### [facility] [address] [place] [address] Dr. Pablo Blanchard UA RANDOM W/MICROSCOPICon BACTERIA NONE SEEN Normal NONE SEEN [facility] Comment on above: Performed By: #### U AMIC #### [facility] [address] [place] [address] Dr. Pablo Blanchard Bilirubin Ql (U) Negative Normal NEGATIVE [facility] Comment on above: Performed By: #### U AMIC #### [facility] [address] [place] [address] Dr. Pablo Blanchard CAST NONE SEEN Normal NONE SEEN [facility] Comment on above: Performed By: #### U AMIC #### [facility] [address] [place] [address] Dr. Pablo Blanchard Clarity (U) CLEAR Normal CLEAR [facility] Comment on above: Performed By: #### U AMIC #### [facility] [address] [place] [address] Dr. Pablo Blanchard Color (U) YELLOW Normal YELLOW [facility] Comment on above: Performed By: #### U AMIC #### [facility] [address] [place] [address] Dr. Pablo Blanchard Crystals LM Nom (Urine sed) NONE SEEN Normal NONE SEEN [facility] Comment on above: Performed By: #### U AMIC #### [facility] [address] [address] [address] Pablo Blanchard Epithelial cells LM Ql (Urine sed) FEW Abnormal NONE SEEN /RARE [facility] Comment on above: Performed By: #### U AMIC #### [facility] [address] [address] [address] Pablo Blanchard Glucose Ql (U) Negative Normal NEGATIVE [facility] Comment on above: Performed By: #### U AMIC #### [facility] [address] [place] [address] Dr. Pablo Blanchard Hemoglobin Ql (U) Negative Normal NEGATIVE [facility] Comment on above: Performed By: #### U AMIC #### [facility] [address] [address] [address] Pablo Blanchard Ketones Ql (U) Negative Normal NEGATIVE [facility] Comment on above: Performed By: #### U AMIC #### [facility] [address] [place] [address] Dr. Pablo Blanchard LEUKOCYTES Negative Normal NEGATIVE [facility] Comment on above: Performed By: #### U AMIC #### [facility] [address] [address] [address] Pablo Blanchard MUCOUS NONE SEEN Normal NONE SEEN [facility] Comment on above: Performed By: #### U AMIC #### [facility] [address] [place] [address] Dr. Pablo Blanchard Nitrite Ql (U) Negative Normal NEGATIVE [facility] Comment on above: Performed By: #### U AMIC #### [facility] [address] [place] [address] Dr. Pablo Blanchard pH (U) 6.0 [pH] Normal 5-9 [facility] Comment on above: Performed By: #### U AMIC #### [facility] [address] [place] [address] Dr. Pablo Blanchard RBC 0-2 Normal 0-2 [facility] Comment on above: Performed By: #### U AMIC #### [facility] [address] [place] [address] Dr. Pablo Blanchard SPEC GRAVITY >=1.030 Abnormal 1.005-<=1. 025 [facility] [facility] Comment on above: Performed By: #### U AMIC #### [facility] [address] [place] [address] Dr. Pablo Blanchard UA PROTEIN Negative Normal NEGATIVE/ TRACE [facility] Comment on above: Performed By: #### U AMIC #### [facility] [address] [place] [address] Dr. Pablo Blanchard Urobilinogen Qn (U) 1.0 {Kuldeep'U}/dL Normal 0.2 - 1. 0 [facility] Comment on above: Performed By: #### U AMIC #### [facility] [address] [place] [address] Dr. Pablo Blanchard WBC NONE SEEN Normal NONE SEEN [facility] Comment on above: Performed By: #### U AMIC #### [facility] [address] [place] [address] Dr. Pablo Blanchard Covid-19 PCR ([facility])on 10-14 SARS-CoV-2 (COVID-19) RNA NANCIE+probe Ql (Unsp spec) Not detected Normal NOT DETECTED [facility] Comment on above: Result Comment: This test is not yet approved or cleared by the [place] FDA. When there are no FDA-approved or cleared tests available, and other criteria are met, FDA can make tests available under an emergency access mechanism called an Emergency Use Authorization (EUA). The EUA for this test is supported by the Virtual Assistant For Advertisers of Health and Human Service's (HHS's) declaration [...] SARS-CoV-2. Performed By: #### C VDTBH #### [facility] [address], [place] [address] Dr. Pablo Blanchard CKon 02-04-2018 Creatine kinase (CK) 57 Int._Unit/L Normal 14-261 [facility] Comment on above: Performed By: #### 2 [id number], [id number] ####[facility] [address] [place] [id number] CKMBon 02-04-2018 CREATINE KINASE.MB:CCNC:PT:SER/ PLAS:QN:EIA 0.5 ng/mL Normal 0.3-4.9 [facility] Comment on above: Performed By: #### 2 [id number], [id number] ####[place] [address] CREATINE KINASE.MB:CCNC:PT:SER/ PLAS:QN:EIA 0.8 ng/mL Normal 0.3-4.9 [facility] Comment on above: Performed By: #### 2 [id number], [id number], [id number] ####[place] [id number] CREATINE KINASE.MB:CCNC:PT:SER/ PLAS:QN:EIA 0.7 ng/mL Normal 0.3-4.9 [facility] Comment on above: Performed By: #### 2 415403, [id number], [id number] ####[facility] [address] [place], [place] [id number] CMPon 02-04-2018 Albumin 1.2 g/dL Normal 1.1-2.2 [facility] Comment on above: Performed By: #### 2 [id number], [id number] ####[facility] [address] [place], [place] [id number] Albumin 3.6 g/dL Normal 3.3-5.0 [facility] Comment on above: Performed By: #### 2 948385, [id number] ####[place] [id number] Alkaline phosphatase (ALP) 71 Int._Unit/L Normal 21-98 [facility] Comment on above: Performed By: #### 2 643728, [id number] ####[facility] [address] [place] [address] ALT Without P-5'-P enzyme act/vol 29 Int._Unit/L Normal 6-46 [facility] Comment on above: Performed By: #### 2 674713, [id number] ####[place] [id number] Aspartate aminotransferase (AST) 29 Int._Unit/L Normal 5-43 [facility] Comment on above: Performed By: #### 2 786357, [id number] ####[place] 9130457 Bilirubin (total) 0.5 mg/dL Normal 0.0-1.1 [facility] Comment on above: Performed By: #### 2 434951, [id number] ####[place] [id number] BUN/Creatinine Ratio 16 No Units Normal 10-20 [facility] Comment on above: Performed By: #### 2 193275, [id number] ####[place] [id number] Creatinine 1.0 mg/dL Normal 0.5-1.3 [facility] Comment on above: Performed By: #### 2 737676, [id number] ####[address] [address] Globulin 2.9 g/dL Normal 1.4-4.0 [facility] Comment on above: Performed By: #### 2 713382, [id number] ####[address] [address] Protein 6.5 g/dL Normal 6.0-7.8 [facility] Comment on above: Performed By: #### 2 234898, [id number] ####[address] [address] Urea nitrogen 16 mg/dL Normal 5-21 [facility] Comment on above: Performed By: #### 2 997416, [id number] ####[facility] [address] [place] [address] Anion gap 14 mmol/L Normal 6-16 [facility] Comment on above: Performed By: #### 2 741357, [id number] ####[facility] [address] [place] [address] Calcium 8.8 mg/dL Low 8.9-11.1 [facility] Comment on above: Performed By: #### 2 751805, [id number] ####[facility] [address] [place] [address] Chloride 106 mmol/L Normal 101-111 [facility] Comment on above: Performed By: #### 2 850219, [id number] ####[facility] [address] [place] [address] CO2 23 mmol/L Normal 21-31 [facility] Comment on above: Performed By: #### 2 628916, [id number] ####[facility] [address] [place] [address] Glucose mass conc 86 mg/dL Normal 55-199 [facility] Comment on above: Result Comment: If t his glucose result represents a fasting glucose, interpretation should refer to the following reference range: 55-99 mg/dL Performed By: #### 2 524944, [id number] ####[facility] [address] [place] [address] Potassium molar conc 3.6 mmol/L Normal 3.5-5.3 [facility] Comment on above: Performed By: #### 2 708595, [id number] ####[facility] [address] [place] [address] Sodium 139 mmol/L Normal 135-145 [facility] Comment on above: Performed By: #### 2 933058, [id number] ####[facility] [address] [place] [address] Myoglobinon 02-04-2018 Myoglobin 18 ng/mL Normal <=69 [facility] Comment on above: Performed By: #### 2 204042, [id number], [id number], 3672934, [id number], [id number] ####[facility] [address] [place] [address] Myoglobin 42 ng/mL Normal <=69 [facility] Comment on above: Performed By: #### 2 609554, 2017498, [id number] ####[facility] [address] [place] [address] Myoglobin 17 ng/mL Normal <=69 [facility] Comment on above: Performed By: #### 2 635271, [id number], [id number] ####[facility] [address] [place] [address] T4 Totalon 02-04-2018 Thyroxine (T4) 9.1 microgram/dL Normal 4.6-9.1 [facility] Comment on above: Performed By: #### 2 698257, [id number] ####[facility] [address] [place] [address] TSHon 02-04-2018 Thyroid stimulating hormone (TSH) 5.61 mcIU/mL High 0.34-5.60 [facility] Comment on above: Performed By: #### 2 968348, [id number] ####[facility] [address] [place] [address] Troponinon 02-04-2018 Troponin I.cardiac mass conc ng/mL Normal <=0.03 [facility] Comment on above: Result Comment: New Troponin Assay 11/26/13ROC [place] Cutoff value > or = 0.03 ng/mL in conjunction with clinical conditions of myocardial infarction.([email or web address]) Performed By: #### 2 742727, 1006461, [id number], 7014257, [id number], [id number] ####[facility] [address] [place] [address] Troponin I.cardiac mass conc ng/mL Normal <=0.03 [facility] Comment on above: Result Comment: New Troponin Assay 11/26/13ROC [place] Cutoff value > or = 0.03 ng/mL in conjunction with clinical conditions of myocardial infarction.([email or web address]/[email or web address]) Performed By: #### 2 701868, 1625491, [id number] ####[facility] [address] [place] [address] Troponin I.cardiac mass conc ng/mL Normal <=0.03 [facility] Comment on above: Result Comment: New Troponin Assay 11/26/13ROC [place] Cutoff value > or = 0.03 ng/mL in conjunction with clinical conditions of myocardial infarction.([email or web address]/[email or web address]) Performed By: #### 2 381371, 9879629, [id number] ####[facility] [address] [place] [address] eGFRon 02-04-2018 eGFR (black) mL/min/{1.73_m2} Normal >=59 [facility] Comment on above: Order Comment: Order added by Discern Expert. Result Comment: eGFR is race adjusted. AA=. Performed By: #### 2 772848, [id number] ####[facility] [address] [place] [address] eGFR (non-black) mL/min/{1.73_m2} Normal >=59 [facility] Comment on above: Order Comment: Order added by Discern Expert. Result Comment: Bioprocess Development Engineer sofi kidney disease could be indicated at eGFR's of less than 60 mL/min/1.73m2. Kidney failure is indicated at less than 15 mL/min/1.73m2. Performed By: #### 2 248242, [id number] ####[facility] [address] [place] [address] Vital Signs Date Time Vital Sign Value Performing Clinician Facility 08-19-2024 16:21-0500 Body height 189.2 cm [facility]ida Suh [facility] 08-19-2024 16:21-0500 Body mass index (BMI) [Ratio] 31.67 kg/m2 Lida Suh MD Work Phone: [facility] 08-19-2024 16:21-0500 Body weight 113.4 kg Lida Suh MD Work Phone: [facility] 08-19-2024 16:21-0500 Diastolic blood pressure 75 mm[Hg] Lida Suh MD Work Phone: [facility] 08-19-2024 16:21-0500 Heart rate 75 /min Lida Suh MD Work Phone: [facility] 08-19-2024 16:21-0500 Systolic blood pressure 98 mm[Hg] Lida Suh MD Work Phone: [facility] 07-30-2024 08:21-0500 Body height 190.5 cm Brooklynn Neidaz SENIOR RELIABILITY ENGINEER Work Phone: [facility] 07-30-2024 08:21-0500 Body mass index (BMI) [Ratio] 31.8 kg/m2 Brooklynn Aichholz SENIOR RELIABILITY ENGINEER Work Phone: [facility] 07-30-2024 08:21-0500 Body temperature 97.81 [degF] Brooklynn Aichholz SENIOR RELIABILITY ENGINEER Work Phone: [facility] 07-30-2024 08:21-0500 Body weight 115.39 kg Brooklynn Aichholz SENIOR RELIABILITY ENGINEER Work Phone: [facility] 07-30-2024 08:21-0500 Diastolic blood pressure 72 mm[Hg] Brooklynn Aichholz SENIOR RELIABILITY ENGINEER Work Phone: [facility] 07-30-2024 08:21-0500 Heart rate 88 /min Brooklynn Aichholz SENIOR RELIABILITY ENGINEER Work Phone: [facility] 07-30-2024 08:21-0500 Respiratory rate 20 /min Brooklynn Aichholz SENIOR RELIABILITY ENGINEER Work Phone: [facility] 07-30-2024 08:21-0500 SaO2% (BldA) [Mass fraction] 93 % Brooklynn Wandahholz SENIOR RELIABILITY ENGINEER Work Phone: [facility] 07-30-2024 08:21-0500 Systolic blood pressure 108 mm[Hg] Brooklynn Aichholz SENIOR RELIABILITY ENGINEER Work Phone: [facility] 03-30-2024 08:08-0400 Body height 186.7 cm Brooklynn Aichholz SENIOR RELIABILITY ENGINEER Work Phone: [facility] 03-30-2024 08:08-0400 Body mass index (BMI) [Ratio] 32.82 kg/m2 Brooklynn Aichholz SENIOR RELIABILITY ENGINEER Work Phone: [facility] 03-30-2024 08:08-0400 Body temperature 98.2 [degF] Brooklynn Aichholz SENIOR RELIABILITY ENGINEER Work Phone: [facility] 03-30-2024 08:08-0400 Body weight 114.4 kg Brooklynn Aichholz SENIOR RELIABILITY ENGINEER Work Phone: [facility] 03-30-2024 08:08-0400 Diastolic blood pressure 80 mm[Hg] Brooklynn Aichholz SENIOR RELIABILITY ENGINEER Work Phone: [facility] 03-30-2024 08:08-0400 Heart rate 79 /min Brooklynn Aichholz SENIOR RELIABILITY ENGINEER Work Phone: [facility] 03-30-2024 08:08-0400 Respiratory rate 18 /min Brooklynn Aichholz SENIOR RELIABILITY ENGINEER Work Phone: [facility] 03-30-2024 08:08-0400 SaO2% (BldA) [Mass fraction] 97 % Brooklynn Aichholz SENIOR RELIABILITY ENGINEER Work Phone: [facility] 03-30-2024 08:08-0400 Systolic blood pressure 110 mm[Hg] Brooklynn Aichholz SENIOR RELIABILITY ENGINEER Work Phone: [facility] 03-17-2024 10:11-0400 Body height 189.[address] 03-17-2024 10:11-0400 Body mass index (BMI) [Ratio] 31.67 kg/m2 Pmh 1 [facility] 03-17-2024 [id number] Body weight 113.4 kg Pmh 1 [facility] 01-29-2024 16:33-0400 Body height 185.4 cm Lida Suh MD Work Phone: [facility] 01-29-2024 16:33-0400 Body mass index (BMI) [Ratio] 33.64 kg/m2 Lida Suh MD Work Phone: [facility] 01-29-2024 16:33-0400 Body weight 115.67 kg Lida Suh MD Work Phone: [facility] 01-29-2024 16:33-0400 Diastolic blood pressure 68 mm[Hg] Lida Suh MD Work Phone: [facility] 01-29-2024 16:33-0400 Heart rate 73 /min Lida Suh MD Work Phone: [facility] 01-29-2024 16:33-0400 Systolic blood pressure 94 mm[Hg] Lida Suh MD Work Phone: [facility] 12-01-2023 09:35-0400 Diastolic blood pressure 65 mm[Hg] Brooklynn Yeager Work Phone: [facility] 12-01-2023 09:35-0400 Heart rate 71 /min Brooklynn Shobha Work Phone: [facility] 12-01-2023 09:35-0400 Respiratory rate 18 /min Brooklynn Aichholz Work Phone: [facility] 12-01-2023 09:35-0400 SaO2% (BldA) [Mass fraction] 97 % Brooklynn Aichholz Work Phone: [facility] 12-01-2023 09:35-0400 Systolic blood pressure 117 mm[Hg] Brooklynn Aichholz Work Phone: [facility] 12-01-2023 00:25-0400 Body height 190.5 cm Brooklynn Yeager Work Phone: [facility] 12-01-2023 00:25-0400 Body temperature 98.4 [degF] Brooklynn Yeager Work Phone: [facility] 12-01-2023 00:25-0400 Body weight 113.39 kg Brooklynn Yeager Work Phone: [facility] 11-13-2023 11:37-0400 Body height 188 cm Lida Suh MD Work Phone: [facility] 11-13-2023 11:37-0400 Body mass index (BMI) [Ratio] 31.46 kg/m2 Lida Suh MD Work Phone: [facility] 11-13-2023 11:37-0400 Body weight 111.13 kg Lida Suh MD Work Phone: [facility] 11-13-2023 11:37-0400 Diastolic blood pressure 72 mm[Hg] Lida Suh MD Work Phone: [facility] 11-13-2023 11:37-0400 Heart rate 69 /min Lida Suh MD Work Phone: [facility] 11-13-2023 11:37-0400 Systolic blood pressure 106 mm[Hg] Lida Suh MD Work Phone: [facility] 10-17-2023 09:02-0400 Body height 188 cm Pmh 1 [facility] 10-17-2023 09:02-0400 Body mass index (BMI) [Ratio] 32.1 kg/m2 Pmh 1 [facility] 10-17-2023 09:02-0400 Body weight 113.4 kg Pmh 1 [facility] 09-04-2023 14:11-0500 Body height 188 cm Lida Suh MD Work Phone: [facility] 09-04-2023 14:11-0500 Body mass index (BMI) [Ratio] 31.46 kg/m2 Lida Suh MD Work Phone: [facility] 09-04-2023 14:11-0500 Body weight 111.13 kg Lida Suh MD Work Phone: [facility] 09-04-2023 14:11-0500 Diastolic blood pressure 75 mm[Hg] Lida Suh MD Work Phone: [facility] 09-04-2023 14:11-0500 Heart rate 76 /min Lida Suh MD Work Phone: [facility] 09-04-2023 14:11-0500 Systolic blood pressure 116 mm[Hg] Lida Suh MD Work Phone: [facility] 10-22-2022 15:54-0400 Diastolic blood pressure 46 mm[Hg] Brooklynn Aichholz Work Phone: [facility] 10-22-2022 15:54-0400 Heart rate 69 /min Brooklynn Aichholz Work Phone: [facility] 10-22-2022 15:54-0400 Respiratory rate 16 /min Brooklynn Aichholz Work Phone: [facility] 10-22-2022 15:54-0400 SaO2% (BldA) [Mass fraction] 99 % Brooklynn Aichholz Work Phone: [facility] 10-22-2022 15:54-0400 Systolic blood pressure 97 mm[Hg] Brooklynn Aichholz Work Phone: [facility] 10-22-2022 14:07-0400 Body height 187.96 cm Brooklynn Aichholz Work Phone: [facility] 10-22-2022 14:07-0400 Body temperature 97.2 [degF] Brooklynn Aichholz Work Phone: [facility] 10-22-2022 14:07-0400 Body weight 113.39 kg Brooklynn Aichholz Work Phone: [facility] 09-04-2022 23:07-0500 Heart rate 73 /min Brooklynn Aichholz Work Phone: [facility] 09-04-2022 23:07-0500 Respiratory rate 18 /min Brooklynn Aichholz Work Phone: [facility] 09-04-2022 23:07-0500 SaO2% (BldA) [Mass fraction] 99 % Brooklynn Aichholz Work Phone: [facility] 09-04-2022 22:55-0500 Body temperature 97.7 [degF] Brooklynn Aichholz Work Phone: [facility] 09-04-2022 22:55-0500 Diastolic blood pressure 84 mm[Hg] Brooklynn Aichholz Work Phone: [facility] 09-04-2022 22:55-0500 Systolic blood pressure 123 mm[Hg] Brooklynn Aichholz Work Phone: [facility] 09-04-2022 22:11-0500 Body height 189.23 cm Brooklynn Aichholz Work Phone: [facility] 09-04-2022 22:11-0500 Body weight 117.4 kg Brooklynn Aichholz Work Phone: [facility] Encounters Encounter Date Encounter Type Care Provider Facility Start: 08-19-2024 End: 08-19-2024 Office outpatient visit 15 minutes Lida Suh MD Work Phone: [facility] Comment on above: Elevated PSA (Primar y Dx); Malignant neoplasm of overlapping sites of bladder ([facility]) Start: 08-19-2024 End: 08-19-2024 ambulatory LIDA SUH [facility] Start: 08-18-2024 End: 08-18-2024 Clinisync Result Encounter Brooklynn Eaglekatya SENIOR RELIABILITY ENGINEER Work Phone: [facility] External Department Unsolicited Start: 08-18-2024 End: 08-18-2024 Clinisync Result Encounter Brooklynnjune Eagleholz SENIOR RELIABILITY ENGINEER Work Phone: [facility] Unsolicited Start: 08-18-2024 End: 08-18-2024 Refill Brooklynnjune Eagledaltonz SENIOR RELIABILITY ENGINEER Work Phone: [facility] Comment on above: Vitamin D deficiency (Primary Dx) Start: 08-14-2024 End: 08-14-2024 Orders Only Brooklynn Shobha SENIOR RELIABILITY ENGINEER Work Phone: [facility] Comment on above: Hypocalcemia (Primar y Dx); Hyperglycemia Start: 08-13-2024 End: 08-13-2024 Clinisync Result Encounter Brooklynn Eagledaltonz SENIOR RELIABILITY ENGINEER Work Phone: [facility] External [facility] Unsolicited Start: 08-13-2024 End: 08-13-2024 Clinisync Result Encounter Brooklynn Fcoholz SENIOR RELIABILITY ENGINEER Work Phone: [facility] Unsolicited Start: 07-30-2024 End: 07-30-2024 Bamboo flowsheet Brooklynn Wandahholz SENIOR RELIABILITY ENGINEER Work Phone: [facility] Start: 07-30-2024 End: 07-30-2024 Bamboo flowsheet Brooklynn Fcoholz SENIOR RELIABILITY ENGINEER Work Phone: [facility] Start: 07-30-2024 End: 07-30-2024 Office outpatient visit 25 minutes Brooklynn Neidaz SENIOR RELIABILITY ENGINEER Work Phone: [facility] Comment on above: Bipolar disorder, cu rrent episode mixed, mild (CMS/HCC) (Primary Dx); Malignant neoplasm of overlapping sites of bladder (CMS/HCC); Obesity (BMI 30-39.9); Mixed hyperlipidemia (CMS/HCC); Tobacco user; Bipolar affective disorder, remission status unspecified (CMS/HCC) Start: 07-30-2024 End: 07-30-2024 ambulatory BROOKLYNN AICHHOLZ Not Available Start: 07-20-2024 End: 07-20-2024 Refill Brooklynn Aichholz SENIOR RELIABILITY ENGINEER Work Phone: [facility] Comment on above: Mixed hyperlipidemia (CMS/HCC); Bipolar affective disorder, remission status unspecified (CMS/HCC) Start: 07-02-2024 End: 07-02-2024 Refill Brooklynn Aichholz SENIOR RELIABILITY ENGINEER Work Phone: [facility] Comment on above: COVID (Primary Dx) Start: 06-17-2024 End: 06-17-2024 Telephone encounter [facility] Start: 06-17-2024 End: 06-17-2024 Evaluation and management of inpatient LIDA SUH [facility] Start: 06-16-2024 End: 06-16-[address] [facility] Start: 05-22-2024 End: 05-22-2024 Orders Only Lida Suh MD Work Phone: [facility] Comment on above: Malignant neoplasm o f overlapping sites of bladder ([facility]) (Primary Dx) Start: 04-15-2024 End: 04-15-2024 Refill Brooklynn Aichholz SENIOR RELIABILITY ENGINEER Work Phone: [facility] Comment on above: Mixed hyperlipidemia (CMS/HCC); Bipolar affective disorder, remission status unspecified (CMS/HCC) Start: 03-30-2024 End: 03-30-2024 Bamboo flowsheet Brooklynn Aichholz SENIOR RELIABILITY ENGINEER Work Phone: [facility] Start: 03-30-2024 End: 03-30-2024 Bamboo flowsheet Brooklynn Aichholz SENIOR RELIABILITY ENGINEER Work Phone: [facility] Start: 03-30-2024 End: 03-30-2024 Office outpatient visit 25 minutes Brooklynn Aichholz SENIOR RELIABILITY ENGINEER Work Phone: [facility] Comment on above: Bipolar affective di sorder, remission status unspecified (CMS/HCC) (Primary Dx); Malignant neoplasm of overlapping sites of bladder (CMS/HCC); Tobacco user; Lump of skin; Contusion of scalp, initial encounter; Mixed hyperlipidemia (CMS/HCC) Start: 03-30-2024 End: 03-30-2024 ambulatory BROOKLYNN YEAGER Not Available Start: 03-18-2024 End: 03-18-2024 Telephone encounter Lida Suh MD Work Phone: [facility] Start: 03-18-2024 End: 03-18-2024 Evaluation and management of inpatient [facility] Start: 03-17-2024 End: 03-17-2024 ambulatory [facility] Start: 03-09-2024 End: 03-09-2024 ambulatory [facility] Start: 01-29-2024 End: 01-29-2024 Office outpatient visit 15 minutes Lida Suh MD Work Phone: [facility] Comment on above: Urinary incontinence , unspecified type (Primary Dx); Elevated PSA; Malignant neoplasm of overlapping sites of bladder ([facility]) Start: 01-29-2024 End: 01-29-2024 ambulatory LIDA [facility] Start: 01-21-2024 End: 01-21-2024 Telephone encounter Darcie GARCIA [facility] Start: 12-19-2023 End: 12-19-2023 Orders Only Lida Suh MD Work Phone: [facility] Start: 12-02-2023 End: 12-02-2023 ambulatory [facility] Start: 12-01-2023 End: 12-02-2023 Evaluation and management of inpatient JOSE GARIBAY [facility] Start: 12-01-2023 End: 12-01-2023 Emergency department patient visit Brooklynn J Aichholz Facility:[facility] Start: 12-01-2023 End: 12-01-2023 Emergency department patient visit Brooklynn Yeager Work Phone: [facility] Work Phone: Start: 11-29-2023 End: 11-29-2023 [facility] Start: 11-22-2023 End: 11-22-2023 ambulatory [facility] Start: 11-14-2023 End: 11-14-2023 ambulatory [facility] Start: 11-13-2023 End: 11-13-2023 Telephone encounter Lida Suh MD Work Phone: [facility] Start: 11-13-2023 End: 11-13-2023 Office outpatient visit 25 minutes Lida Suh MD Work Phone: [facility] Comment on above: Malignant neoplasm o f overlapping sites of bladder (CMS-HCC) (Primary Dx); Elevated PSA Start: 11-13-2023 End: 11-13-[address] [facility] Start: 11-13-2023 End: 11-13-2023 ambulatory [facility] Start: 11-07-2023 End: 11-13-2023 Orders Only Lida Suh MD Work Phone: [facility] Comment on above: Hematuria, microscop ic (Primary Dx) Start: 10-31-2023 End: 10-31-2023 Telephone encounter Guanako Martines CMA [facility] Start: 10-30-2023 End: 10-30-2023 Telephone encounter Lida Suh MD Work Phone: [facility] Start: 10-30-2023 End: 10-30-2023 Evaluation and management of inpatient EFE [facility]ENDERSON [facility] Start: 10-30-2023 End: 10-30-2023 Evaluation and management of inpatient [facility] Start: 10-17-2023 End: 10-17-2023 Patient encounter procedure [facility] Pre-Admission Testing 1 [facility] - Pre Admit Start: 10-17-2023 End: 10-17-2023 ambulatory [facility] Start: 09-27-2023 End: 09-27-2023 ambulatory [facility] Start: 09-26-2023 End: 09-26-2023 ambulatory BROOKLYNN YEAGER Not Available Start: 09-04-2023 Telephone encounter Lida Suh MD Work Phone: [facility] Start: 09-04-2023 End: 09-04-2023 Office consultation new/estab patient 60 min Lida Suh MD Work Phone: [facility] Comment on above: Elevated PSA (Primar y Dx); Hematuria, microscopic Start: 09-04-2023 End: 09-04-[address] [facility] Amb[facility] Start: 09-04-2023 End: 09-04-2023 ambulatory [facility] Start: 08-27-2023 Refill Brooklynn Yeager SENIOR RELIABILITY ENGINEER Work Phone: [facility] Comment on above: Mixed hyperlipidemia (CMS/HCC) (Primary Dx) Start: 08-21-2023 Telephone encounter Brooklynn martinez SENIOR RELIABILITY ENGINEER Work Phone: [facility] Start: 10-22-2022 End: 10-22-2022 Admission to same day surgery center Brooklynn Yeager Work Phone: [facility] [place] Start: 10-22-2022 End: 10-22-2022 ambulatory Brooklynn Yeager Work Phone: [facility] Work Phone: Start: 10-03-2022 End: 10-03-2022 ambulatory Brooklynn Yeager Work Phone: [facility] Work Phone: Start: 10-03-2022 End: 10-03-2022 Departed Referred Brooklynn Yeager Work Phone: [facility] [place] Work Phone: Start: 09-18-2022 End: 09-19-2022 ambulatory CHEMICAL MILLING PROCESSOR BROOKLYNN YEAGER Facility:H1 Start: 09-04-2022 End: 09-05-2022 Emergency department patient visit Brooklynn Yeager Work Phone: [facility] Work Phone: Start: 03-08-2022 End: 03-09-2022 ambulatory CHEMICAL MILLING PROCESSOR BROOKLYNN YEAGER Facility:H1 Start: 11-03-2021 End: 11-03-2021 ambulatory CHEMICAL MILLING PROCESSOR BROOKLYNN YEAGER Facility:[facility]1 Start: 02-04-2018 Patient encounter KINJAL Gresham ity:[facility] Start: 02-03-2018 Patient encounter KINJAL Gresham ity:[facility] Procedures Date Procedure Procedure Detail Performing Clinician Start: 08-18-2024 MLR HEMOGLOBIN A1C Brooklynn Shobha SENIOR RELIABILITY ENGINEER Work Phone: Start: 08-13-2024 ALL LIPID PROFILE (FASTING) Brooklynn Shobha SENIOR RELIABILITY ENGINEER Work Phone: Start: 08-13-2024 ALL THYROID STIM HORMONE Brooklynn Shobha SENIOR RELIABILITY ENGINEER Work Phone: Start: 08-13-2024 [facility] CMP (CMP) (FOR R [facility] USE) Brooklynn Shobha SENIOR RELIABILITY ENGINEER Work Phone: Start: 01-29-2024 MEASURE POST VOID RESIDUAL Lida Suh MD Work Phone: Start: 12-01-2023 Adult depression scr eening assessment Lida Suh MD Work Phone: Start: 11-13-2023 Follow-up visit Follow-up LIDA SHU Start: 10-22-2022 Excision of cyst Brooklynn ruvalcaba Work Phone: Start: 10-03-2022 Colonoscopy Brooklynn martinez SENIOR RELIABILITY ENGINEER Work Phone: Start: 09-04-2022 Plain X-ray abdomen Tawny Yeager Work Phone: Start: 09-04-2022 SARS-CoV-2, Influenz a & RSV (PCR) Brooklynn Yeager Work Phone: Start: 03-08-2022 PSA screening CHEMICAL MILLING PROCESSOR BROOKLYNN YEAGER Comment on above: Performed By: #### P [facility] #### [facility] [address] [place] [address] Dr. Pablo Blanchard Plan of Treatment Date Care Activity Detail Author Start: 10-03-2032 Screening for malign ant neoplasm of colon [facility] Start: 08-23-2025 End: 08-23-2025 Patient encounter procedure 08/23/2025 1:45 PM EST Office Visit [facility] [address] [place] [address] [place] [address] Lida Suh MD [address] [place] [address] [facility] Start: 08-19-2025 End: 07-20-2026 Prostatic specific antigen, diagnostic Prostatic specific antigen, diagnostic Lab Routine Elevated PSA Expected: 08/19/2025 (Approximate), Expires: 07/20/2026 [facility] Work Phone: Comment on above: Expected: 08/19/2025 (Approximate), Expires: 07/20/2026 Start: 08-19-2025 Tobacco Screening Tobacco Screening [facility] Start: 06-17-2025 Tobacco Screening Tobacco Screening [facility] Start: 03-18-2025 Tobacco Screening Tobacco Screening [facility] Start: 03-17-2025 Adult BMI Screening Adult BMI Screen ing [facility] Start: 01-28-2025 Adult BMI Screening Adult BMI Screen ing [facility] Start: 01-28-2025 Tobacco Screening Tobacco Screening [facility] Start: 12-01-2024 Adult BMI Screening Adult BMI Screen ing [facility] Start: 11-30-2024 Depression Screening Depression Scre ening [facility] Start: 11-30-2024 Tobacco Screening Tobacco Screening [facility] Start: 11-12-2024 Adult BMI Screening Adult BMI Screen ing [facility] Start: 11-12-2024 Tobacco Screening Tobacco Screening [facility] Start: 10-29-2024 Adult BMI Screening Adult BMI Screen ing [facility] Start: 10-29-2024 Tobacco Screening Tobacco Screening [facility] Start: 10-16-2024 End: 08-18-2025 25-hydroxyvitamin D3 [Mass/volume] in Serum or Plasma Vitamin D 25 hydroxy Lab Routine Vitamin D deficiency Expected: 10/16/2024 (Approximate), Expires: 08/18/2025 [facility] Work Phone: Comment on above: Expected: 10/16/2024 (Approximate), Expires: 08/18/2025 Start: 10-16-2024 Adult BMI Screening Adult BMI Screen ing [facility] Start: 10-16-2024 Tobacco Screening Tobacco Screening [facility] Start: 10-05-2024 End: 10-05-2024 Patient encounter procedure 10/05/2024 8:40 AM EDT Office Visit [facility] [address] [place] [address] Brooklynn Yeager NP [address] [place] [address] [facility] Start: 09-04-2024 Adult BMI Screening Adult BMI Screen ing [facility] Start: 09-04-2024 Tobacco Screening Tobacco Screening [facility] Start: 08-19-2024 End: 08-19-2024 Patient encounter procedure 08/19/2024 3:45 PM EST Office Visit [facility] [address] [facility] [place] [address] Lida Suh MD [address] [place] [address] [facility] Start: 08-14-2024 End: 08-14-2025 25-hydroxyvitamin D3 [Mass/volume] in Serum or Plasma Vitamin D 25 hydroxy Lab Routine Hypocalcemia Expected: 08/14/2024 (Approximate), Expires: 08/14/2025 [facility] Work Phone: Comment on above: Expected: 08/14/2024 (Approximate), Expires: 08/14/2025 Start: 08-14-2024 End: 08-14-2025 Hemoglobin A1c/Hemoglobin.total in Blood Hemoglobin A1c Lab Routine Hyperglycemia Expected: 08/14/2024 (Approximate), Expires: 08/14/2025 [facility] Comment on above: Expected: 08/14/2024 (Approximate), Expires: 08/14/2025 Start: 07-30-2024 End: 07-30-2025 CBC W Auto Differential panel - Blood CBC and differential Lab Routine Tobacco user Expected: 07/30/2024 (Approximate), Expires: 07/30/2025 [facility] Comment on above: Expected: 07/30/2024 (Approximate), Expires: 07/30/2025 Start: 07-30-2024 End: 07-30-2025 Comprehensive metabolic 2000 panel - Serum or Plasma Comprehensive metabolic panel Lab Routine Obesity (BMI 30-39.9) Bipolar disorder, current episode mixed, mild (CMS/HCC) Mixed hyperlipidemia (CMS/HCC) Expected: 07/30/2024 (Approximate), Expires: 07/30/2025 [facility] Comment on above: Expected: 07/30/2024 (Approximate), Expires: 07/30/2025 Start: 07-30-2024 End: 07-30-2025 Lipid 1996 panel - Serum or Plasma Lipid panel Lab Routine Mixed hyperlipidemia (CMS/HCC) Expected: 07/30/2024 (Approximate), Expires: 07/30/2025 [facility] Work Phone: Comment on above: Expected: 07/30/2024 (Approximate), Expires: 07/30/2025 Start: 07-30-2024 End: 07-30-2025 Thyrotropin [Units/volume] in Serum or Plasma TSH Lab Routine Bipolar disorder, current episode mixed, mild (CMS/HCC) Expected: 07/30/2024 (Approximate), Expires: 07/30/2025 [facility] Comment on above: Expected: 07/30/2024 (Approximate), Expires: 07/30/2025 Start: 07-30-2024 End: 07-30-2025 Thyroxine (T4) free [Mass/volume] in Serum or Plasma T4, free Lab Routine Bipolar disorder, current episode mixed, mild (CMS/HCC) Expected: 07/30/2024 (Approximate), Expires: 07/30/2025 [facility] Comment on above: Expected: 07/30/2024 (Approximate), Expires: 07/30/2025 Start: 07-30-2024 End: 07-30-2024 [facility] Comment on above: Obesity (BMI 30-39.9 ) (Primary Dx); Malignant neoplasm of overlapping sites of bladder (CMS/HCC); Bipolar disorder, current episode mixed, mild (CMS/HCC); Mixed hyperlipidemia (CMS/HCC); Tobacco user Start: 06-17-2024 End: 06-17-2024 Admission to same day surgery center 06/17/2024 11:30 AM EST - 06/17/2024 12:00 PM EST Surgery [facility] [address] [place] [address] Lida Suh MD [address] [place] [phone] CYSTOSCOPY [41434 (CPT )] [facility] Comment on above: CYSTOSCOPY [48078 (C PT )] Start: 06-17-2024 End: 06-17-2024 Cystourethroscopy [facility] Start: 06-17-2024 Subsequent hospital visit by physician 06/17/2024 11:30 AM EST Hospital Encounter [facility] [address] [place] [address] Lida Suh MD [address] [place] [address] [facility] Start: 06-16-2024 End: 06-16-2024 ambulatory 06/16/2024 3:40 PM EST Support Visit [facility] - Pre Admit [address] [facility] [address] [facility] - Pre Admit Start: 06-08-2024 End: 06-08-2024 Patient encounter procedure 06/08/2024 2:45 PM EST Office Visit [facility] [address] [place] [phone] Lida Suh MD [address] [place] [address] [facility] Start: 05-20-2024 End: 05-20-2024 Patient encounter procedure 05/20/2024 2:30 PM EST Office Visit [facility] [address] [place] [address], [place] [address] Lida Suh MD [address] [place] [address] [facility] Start: 05-11-2024 End: 11-12-2024 Prostatic specific antigen, diagnostic Prostatic specific antigen, diagnostic Lab Routine Elevated PSA Expected: 05/11/2024 (Approximate), Expires: 11/12/2024 [facility] Comment on above: Expected: 05/11/2024 (Approximate), Expires: 11/12/2024 Start: 03-30-2024 End: 03-30-2024 Patient encounter procedure 03/30/2024 9:00 AM EDT Office Visit [facility] [address] [place] [address] Brooklynn Yeager, ROSA [address] [place] [address] Arrived [facility] Comment on above: Arrived Start: 03-18-2024 End: 03-18-2024 Admission to same day surgery center 03/18/2024 8:00 AM EDT - 03/18/2024 8:30 AM EDT Surgery [facility] [address] [place] [phone] Lida Suh MD [address] [place] [phone] CYSTOSCOPY [95880 (CPT )] [facility] Comment on above: CYSTOSCOPY [10615 (C PT )] Start: 03-18-2024 End: 03-18-2024 Cystourethroscopy [facility] Start: 03-18-2024 Subsequent hospital visit by physician 03/18/2024 8:00 AM EDT Hospital Encounter [facility] [address] [place] [phone] Lida Suh MD [address] [place] [phone] [facility] Start: 03-17-2024 End: 03-17-2024 ambulatory 03/17/2024 4:20 PM EDT Support Visit [facility] - Pre Admit [address] [place] [phone] [facility] - Pre Admit Start: 03-15-2024 COVID-19 Vaccine ( season) COVID-19 Vaccine () [facility] Start: 03-15-2024 COVID-19 Vaccine ( season) COVID-19 Vaccine () [facility] Start: 03-15-2024 Influenza vaccination Influenza Vacc ine [facility] Start: 02-13-2024 End: 11-12-2024 Cytology Cytology Pathology and Cytology Routine Malignant neoplasm of overlapping sites of bladder ([facility]) Expected: 02/13/2024 (Approximate), Expires: 11/12/2024 [facility] Comment on above: Expected: 02/13/2024 (Approximate), Expires: 11/12/2024 Start: 02-13-2024 End: 11-12-2024 Urovysion for bladder Urovysion for bladder Lab Routine Malignant neoplasm of overlapping sites of bladder ([facility]-HCC) Expected: 02/13/2024 (Approximate), Expires: 11/12/2024 [facility] Comment on above: Expected: 02/13/2024 (Approximate), Expires: 11/12/2024 Start: 01-29-2024 End: 01-29-2024 Patient encounter procedure 01/29/2024 4:00 PM EDT [facility] [address] [place] [phone] Lida Suh MD [address] [place] [address] [facility] Start: 12-18-2023 End: 12-18-2023 Patient encounter procedure 12/18/2023 12:15 PM EDT Office Visit [facility] [address] [place] [address] [place] [phone] Lida Suh MD [address] [place] [phone] [facility] Start: 12-01-2023 Bacteria identified in Urine by Culture Urine Culture [facility] Start: 11-22-2023 End: 11-22-2023 Patient encounter procedure [facility] Start: 11-13-2023 End: 11-12-2024 NM Whole body Bone Views NM bone scan whole body Imaging Routine Malignant neoplasm of overlapping sites of bladder (CMS-HCC) Elevated PSA Expected: 11/13/2023, Expires: 11/12/2024 [facility] Comment on above: Expected: 11/13/2023 , Expires: 11/12/2024 Start: 11-13-2023 End: 11-13-2023 Patient encounter procedure 11/13/2023 11:45 AM EDT [facility] [address] [place] [address] [place] [phone] Lida Suh MD [address] [place] [address] [phone] [facility] Start: 11-04-2023 End: 11-04-2023 Patient encounter procedure [facility] Start: 10-30-2023 End: 10-30-2023 Admission to same day surgery center 10/30/2023 9:30 AM EDT - 10/30/2023 10:30 AM EDT Surgery [facility] [address] [place] [phone] Lida Suh MD [address] [place] [address] [id number] CYSTOSCOPY [95092 (CPT )] [facility] Comment on above: CYSTOSCOPY [32713 (C PT )] Start: 10-30-2023 End: 10-30-2023 Cysto bladder w/ureteral catheterization CYSTOSCOPY RETROGRADE PYELOGRAM Hematuria, microscopic 10/30/2023 9:30 AM EDT [facility] Start: 10-30-2023 End: 10-30-2023 CYSTOSCOPY TRANSURETHRAL RESECTION BLADDER TUMOR CYSTOSCOPY TRANSURETHRAL RESECTION BLADDER TUMOR Hematuria, microscopic 10/30/2023 9:30 AM EDT [facility] Start: 10-30-2023 End: 10-30-2023 Cystourethroscopy CYSTOSCOPY Hematuria, microscopic 10/30/2023 9:30 AM EDT [facility] Start: 10-30-2023 End: 10-30-2023 Cystourethroscopy with biopsy CYSTOSCOPY BIOPSY BLADDER Hematuria, microscopic 10/30/2023 9:30 AM EDT [facility] Start: 10-30-2023 Subsequent hospital visit by physician 10/30/2023 9:30 AM EDT Hospital Encounter [facility] [address] [place] [address] Lida Suh MD [address] [place] [address] [facility] Start: 10-22-2023 End: 09-03-2024 Prostatic specific antigen, diagnostic Prostatic specific antigen, diagnostic Lab Routine Elevated PSA Expected: 10/22/2023, Expires: 09/03/2024 [facility] Comment on above: Expected: 10/22/2023 , Expires: 09/03/2024 Start: 09-26-2023 End: 09-26-2023 Patient encounter procedure 09/26/2023 9:00 AM EDT [facility] [address] [place] [address] Brooklynn Yeager NP [address] [place] [address] [facility] Start: 09-04-2023 End: 09-04-2024 CT Kidney and Ureter and Urinary bladder 3D post processing WO and W contrast IV CT urogram Imaging Routine Hematuria, microscopic Expected: 09/04/2023, Expires: 09/04/2024 [facility] Work Phone: Comment on above: Expected: 09/04/2023 , Expires: 09/04/2024 Start: 03-15-2023 COVID-19 Vaccine () COVID-19 Vaccine () [facility] [employer] Start: 03-15-2023 Influenza vaccination [facility] Start: 10-22-2022 [facility] Start: 09-04-2022 Plain X-ray abdomen XR abdomen min 2 V [facility] Start: 09-04-2022 XR Abdomen Views [facility] Start: 1988 DTaP,Tdap and Td Vac cines (1 - Tdap) DTaP,Tdap and Td Vaccines (1 - Tdap) [facility] [employer] Start: 12-27-1987 Adult BMI Follow Up Plan Adult BMI Follow Up Plan [facility] Start: 1981 Depression Screening Depression Scre ening [facility] Start: 1969 Screening for malign ant neoplasm of colon [facility] Start: 1969 Tobacco Counseling Tobacco Counselin g [facility] [employer] End: 11-06-2024 Bacteria identified in Urine by Culture Urine Culture Microbiology Routine Hematuria, microscopic 1 Occurrences starting 11/07/2023 until 11/06/2024 [employer] Work Phone: Comment on above: 1 Occurrences starti ng 11/07/2023 until 11/06/2024 End: 11-12-2024 Bacteria identified in Urine by Culture Urine Culture Microbiology Routine Malignant neoplasm of overlapping sites of bladder ([facility]) 1 Occurrences starting 11/13/2023 until 11/12/2024 [employer] Work Phone: Comment on above: 1 Occurrences starti ng 11/13/2023 until 11/12/2024 Bacteria identified in Urine by Culture Urine Culture Microbiology Routine Malignant neoplasm of overlapping sites of bladder ([facility]) 11/13/2023 10:20 PM EDT [facility] [place] End: 09-03-2024 Cytology Cytology Pathology and Cytology Routine Hematuria, microscopic 1 Occurrences starting 09/04/2023 until 09/03/2024 [facility] [place] Comment on above: 1 Occurrences starti ng 09/04/2023 until 09/03/2024 Patient Education [facility] Work Phone: Patient referral [facility] Work Phone: Immunizations Immunization Date Immunization Notes Care Provider Moise diane 09-11-2022 zoster vaccine recombinant Lida Suh MD Work Phone: [facility] 05-31-2022 zoster vaccine recombinant Lida Suh MD Work Phone: [facility] Healthcare Payers Date Payer Category Payer Medicaid HMO [employer] [id number] 2023 Medicaid [id number] 2023 Private Health Insurance [id number] [id number] 2023 Medicaid [id number] 1969 Unknown [id number] 2.16.840.1.956275.3.579. 2.593 1969 Unknown [id number] 2.16.840.1.532003.3.579. 2.593 1969 Unknown [id number] 2.16.840.1.092790.3.579. 2.128 1969 Unknown [id number] 2.16.840.1.496212.3.579. 2.1286 1969 Unknown [id number] 2.16.840.1.654804.3.579. 2.128 1969 Unknown [id number] 2.16.840.1.267136.3.579. 2.1285 1969 Unknown [id number] 2.16.840.1.704656.3.579. 2.1285 1969 Unknown [id number] 2.16.840.1.763027.3.579. 2.1285 1969 Unknown [id number] 2.16.840.1.092223.3.579. 2.1285 1969 Unknown [id number] 2.16.840.1.178753.3.579. 2.1285 1969 Unknown [id number] 2.16.840.1.301937.3.579. 2.1285 1969 Unknown [id number] 2.16.840.1.239656.3.579. 2.1285 1969 Unknown [id number] 2.16.840.1.624187.3.579. 2.1285 1969 Unknown [id number] 2.16.840.1.364268.3.579. 2.1285 1969 Unknown [id number] 2.16.840.1.769268.3.579. 2.1285 1969 Unknown [id number] 2.16.840.1.102317.3.579. 2.1285 1969 Unknown [id number] 2.16.840.1.338084.3.579. 2.1285 1969 Unknown [id number] 2.16.840.1.589543.3.579. 2.1285 1969 Unknown [id number] 2.16.840.1.595781.3.579. 2.1285 1969 Unknown [id number] 2.16.840.1.678431.3.579. 2.1285 1969 Unknown [id number] 2.16.840.1.210552.3.579. 2.1286 1969 Unknown [id number] 2.16.840.1.106095.3.579. 2.1259 1969 Unknown [id number] 2.16.840.1.297137.3.579. 2.1259 1969 Unknown [id number] 2.16.840.1.343911.3.579. 2.1259 1969 Unknown [id number] 2.16.840.1.784746.3.579. 2.1286 1969 Unknown [id number] 2.16.840.1.196113.3.579. 2.1286 1969 Unknown [id number] 2.16.840.1.718385.3.579. 2.6 1969 Unknown [id number] 2.16.840.1.666719.3.579. 2.1286 1959 Self-pay [id number] 1959 Unknown [id number] Unknown [id number] 2.16.840.1.911679.3.579. 2.593 Unknown [id number] 2.16.840.1.925011.3.579. 2.531 Social History Date Type Detail Facility Start: 09-04-2022 End: 12-01-2023 Tobacco smoking status [facility] Smoker (finding) [facility] Start: 1970 Sex Assigned At Male F [facility] Start: 07-17-2023 End: 03-17-2024 Tobacco smoking status [facility] Smokes tobacco daily [facility] Start: 07-15-1988 History of tobacco use Cigarette Smo ker [facility] Start: 07-17-2023 End: 01-29-2024 Cigarettes smoked current (pack per day) - Reported 1 [facility] Start: 08-21-2023 End: 07-30-2024 Alcohol intake Ex-drinker (finding) [facility] Start: 07-22-2023 End: 01-29-2024 Tobacco use panel [facility] Start: 07-21-2023 Alcohol Comment caffeine 1-2 c ups per day [facility] Start: 1970 Sex Assigned At Not on file [facility] How often do you nee d to have someone help you when you read instructions, pamphlets, or other written material from your doctor or pharmacy [SILS] Never [facility] Do you belong to any clubs or organizations such as muslim groups, unions, fraternal or athletic groups, or [...] or rent on time? Yes [facility] Start: 09-04-2023 End: 03-17-2024 Tobacco use and exposure Smokeless tobacco non-user [facility] Start: 06-17-2024 End: 08-19-2024 Alcoholic beverage intake Lifetime non-drinker (finding) [facility] How often to you hav e a drink containing alcohol? Monthly or less [facility] [facility] How many standard dr inks containing alcohol do you have on a typical day? 1 or 2 [facility] Start: 08-06-2023 Sex Male (finding) [facility] Goals Date Patient Goal Desired Activity /State Clinical Notes 08-21-2023 to 08-19-2024 Assessment & Plan Note - Lida Suh MD - 08/19/2024 4:27 PM ESTAssessment & Plan Note - Lida Suh MD - 08/19/2024 4:27 PM ESTMicreji Suh MD - 08/19/2024 3:45 PM EST Note Date & Type Note Facility 08-19-2024 Evaluation + Plan note Associated Problem(s): Elevated PSA He does have some difficulty urinating in the morning. I did ask if it is bad enough for him to take it daily medication it was not. It is only isolated. He voids well otherwise. He is happy with the current state. [facility] [place] [facility] Miscellaneous Notes Associated Problem(s): Elevated PSA He does have some difficulty urinating in the morning. I did ask if it is bad enough for him to take it daily medication it was not. It is only isolated. He voids well otherwise. He is happy with the current state. documented in this encounter [email or web address] [employer] 08-19-2024 History of Presen t illness Narrative Images from the original note were not included. [address] [place] [id number] Patient: Reno Abreu Date of : 1970 Encounter Date: 08/19/2024 History of Present Illness: The patient is a 53 y.o. male, an established patient, and is here for Chief Complaint Patient presents with Follow-up . History of bladder carcinoma. His last fish cytology negative. Also prostate cancer screening. PSA as below. Urinalysis today: No results for input(s): EXTPOCURCO , EXTPOCURCH , EXTPOCAPP , EXTPOCURBS , EXTPOCURBIL , EXTPOCUKET , EXTPOCUSPG , EXTPOCUHGB , EXTPOCUPRO , EXTPOCUURO , EXTPOCULEU , EXTPOCUNIT , EXTPOCUWBC , EXTPOCUBLD , EXTPOCURBC , EXTPOCUCRY , EXTPOCUBAC , EXTPOCUTREP , EXTPOCUPH , EXTPOCULEE in the last 72 hours. Last BUN and creatinine: Lab Results Component Value Date BUN 15 12/02/2023 Lab Results Component Value Date CREATININE 0.91 12/02/2023 Last PSA: Lab Results Component Value Date PSA 2.12 03/09/2024 PSA 2.43 10/17/2023 No results found for: PROSTATICSP Past Medical, Family, and Social History Update: The following portions of the patient's history were reviewed and updated as appropriate: allergies, current medications, past family history, past medical history, past social history, past surgical history and problem list. Past Medical History: Diagnosis Date Bipolar disorder ([facility]) Bladder cancer ([facility]) Chronic constipation Depression Hyperlipidemia Visual impairment Past Surgical History: Procedure Laterality Date CHOLECYSTECTOMY 2020 COLONOSCOPY CYSTOSCOPY N/A 06/17/2024 Performed by Lida Suh MD at [facility] CYSTOSCOPY N/A 03/18/2024 Performed by Lida Suh MD at [facility] CYSTOSCOPY N/A 10/30/2023 Performed by Lida Suh MD at [facility] CYSTOSCOPY TRANSURETHRAL RESECTION BLADDER TUMOR N/A 10/30/2023 Performed by Lida Suh MD at [facility] LIPOMA RESECTION several History reviewed. No pertinent family history. Current Outpatient Medications Medication Sig Dispense Refill atorvastatin (LIPITOR) 10 mg tablet Take 1 tablet (10 mg total) by mouth in the morning. cholecalciferol, vitamin D3, (VITAMIN D3) 5,000 units capsule Take 1 capsule (5,000 Units total) by mouth in the morning. citalopram (CeleXA) 20 mg tablet Take 1 [...] History Tobacco Use Smoking Status Every Day Current packs/day: 1.00 Types: Cigarettes Smokeless Tobacco Never (If patient a smoker, smoking cessation counseling offered) Social History: Social History Substance and Sexual Activity Alcohol Use Never Review of Systems: General: Negative for chills and fever. Cardiovascular: Negative for chest pain and shortness of breath. Gastrointestinal: Negative for constipation, diarrhea, nausea, and vomitting. -per HPI Physical Exam: BP 98/75 Pulse 75 Ht 189.2 cm (6' 2.5 ) Wt 113.4 kg (250 lb) BMI 31.67 kg/m Nontoxic no apparent distress. Respirations nonlabored. Skin is dry. Awake alert oriented x3. Digital rectal exam: Benign feeling prostate. Borders are well demarcated. No nodules noted. Assessment and Plan: Reno was seen today for follow-up. Diagnoses and all orders for this visit: Elevated PSA - Prostatic specific antigen, diagnostic; Future Malignant neoplasm of overlapping sites of bladder (CMS-HCC) Problem List High Malignant neoplasm of overlapping sites of bladder (CMS-HCC) Overview ==== 11/13/2023 ==== #### status post cystoscopy TURBT. Noninvasive low-grade urothelial carcinoma lately treated. Plan: Patient understands need for follow-up. In particular cystoscopy serially. Next 1 in 3 months. Does have some lower urinary tract symptoms. Urine for culture. Urinary antiseptic prescription written as well. ==== 09/04/2023 ==== microscopic hematuria. Through outside evaluation. Smoking history as well. Plan: Completion hematuria evaluation cytology CT urogram cystoscopy. Elevated PSA - Primary Overview ==== 08/19/2024 ==== last PSA was acceptable. This was in the semi. Rectal exam today is benign ==== 01/29/2024 ==== will set up the PSA after his next cysto in March ==== 11/13/2023 ==== repeat PSA 2.43. Will obtain another 1 in 6 months ==== 09/04/2023 ==== history elevated PSA for his age. 3.5. Had previous PSA before little over 1 and then about 2 and half for so. No strong family history prostate carcinoma. Breast or ovarian carcinoma. Digital rectal exam benign feeling prostate. Certainly need to verify value. Repeat PSA 2 months return clinic. Current Assessment & Plan He does have some difficulty urinating in the morning. I did ask if it is bad enough for him to take it daily medication it was not. It is only isolated. He voids well otherwise. He is happy with the current state. Relevant Orders Prostatic specific antigen, diagnostic Follow-up: Return clinic 1 year with a PSA Lida Suh MD This note was created with the assistance of a speech recognition program. While intending to generate a timely document that accurately reflects the content of the visit, no guarantee can be provided that every grammatical or spelling mistake has been or will be identified or corrected. Thank you for your understanding. documented in this encounter [facility] 07-30-2024 Instructions Brooklynn Yeager NP - 07/30/2024 8:40 AM EST Get fasting labs Continue with urology documented in this encounter [facility] 06-17-2024 Miscellaneous Notes Cysto [facility] [place] setup 6 months diagnosis history bladder carcinoma. documented in this encounter [facility] 06-17-2024 [facility] bladder carcinoma. [facility] 03-30-2024 History of Presen t illness Narrative [...] Abdominal pain 09/26/2023 Abnormal TSH Bipolar disorder ([facility]) 07/22/2023 Chicken pox Cholelithiasis Constipation, chronic COVID-19 virus infection DDD (degenerative disc disease), lumbar Diverticulitis 06/26/2023 Genital warts 09/26/2023 History of HPV infection 09/26/2023 HLD (hyperlipidemia) ([facility]) 07/22/2023 Insomnia 09/26/2023 Lipoma 09/26/2023 Lumbar back [...] Bridge of nose with palpable lump: approx [id number], non tender no induration noted no fluctuance [...] of this condition documented in this encounter [facility] 03-18-2024 Miscellaneous Notes Cysto [facility] [place] 3 months diagnosis history bladder carcinoma. documented in this encounter [facility] 03-18-2024 Telephone encounter Note Cyst[facility] [place] 3 months diagnosis history bladder carcinoma. [facility] 03-17-2024 Nurse Note Preoperative Education Checklist- General Surgery date: 03/18/24 Surgery time: 8a Arrival time: 7a 1. Bring a photo ID and your insurance card with you the day of surgery. You will check in at the main lobby of the [facility]- registration desk is straight ahead as soon as you walk in. Tell them you are here for surgery. 2. If you have a Living Will/Durable Power of Rug Cleaner for Health Care that is not on [...] after you have bathed. 5. NO nail togolese/acrylic on at least one finger. If you are having a hand, wrist or foot surgery then all nail togolese and artificial/acrylic nails must be removed from [...] please call the Preadmission Testing office at [phone], Mon.-Fri. 7 a.m.-3 p.m. Leave a voicemail if needed. Pre-Surgery Instructions: Medication Instructions atorvastatin (LIPITOR) 10 mg tablet Stop taking 0 days prior to procedure lamoTRIgine (LaMICtal) 100 mg tablet Take morning of procedure citalopram (CeleXA) 20 mg tablet Stop taking 0 days prior to procedure [facility] 03-17-2024 Miscellaneous Notes Preoperative Education Checklist- General Surgery date: 03/18/24 Surgery time: 8a Arrival time: 7a 1. Bring a photo ID and your insurance card with you the day of surgery. You will check in at the main lobby of the [facility]- registration desk is straight ahead as soon as you walk in. Tell them you are here for surgery. 2. If you have a Living Will/Durable Power of Rug Cleaner for Health Care that is not on [...] after you have bathed. 5. NO nail togolese/acrylic on at least one finger. If you are having a hand, wrist or foot surgery then all nail togolese and artificial/acrylic nails must be removed from [...] please call the Preadmission Testing office at [phone], Mon.-Fri. 7 a.m.-3 p.m. Leave a voicemail if needed. Pre-Surgery Instructions: Medication Instructions atorvastatin (LIPITOR) 10 mg tablet Stop taking 0 days prior to procedure lamoTRIgine (LaMICtal) 100 mg tablet Take morning of procedure citalopram (CeleXA) 20 mg tablet Stop taking 0 days prior to procedure documented in this encounter [facility] 01-29-2024 Evaluation + Plan note Associated Problem(s): Malignant neoplasm of overlapping sites of bladder (CMS-HCC) Postop day of have clots and clot retention. This has resolved. He was started on finasteride and Flomax at the time of the ER visit. He was not on these before. He can stop those. [facility] 01-29-2024 Miscellaneous Notes Associated Problem(s): Malignant neoplasm of overlapping sites of bladder (CMS-HCC) Postop day of have clots and clot retention. This has resolved. He was started on finasteride and Flomax at the time of the ER visit. He was not on these before. He can stop those. Associated Problem(s): Elevated PSA He can stop his Flomax as well as finasteride documented in this encounter [facility] 01-29-2024 Evaluation + Plan note Associated Problem(s): Elevated PSA He can stop his Flomax as well as finasteride [facility] 01-29-2024 History of Presen t illness Narrative Images from the original note were not included. [address] [place] [address] [address] [facility] [id number] Patient: Reno Abreu Date of : 1970 Encounter Date: 01/29/2024 History of Present Illness: The patient is a 53 y.o. male, an established patient, and is here for history of urothelial carcinoma. Status post TURBT. Did have postoperative course with some hematuria clot retention. Catheter was out his voiding well hematuria resolved. Did have a bone scan for some incidental findings on CT urogram. These were negative.. Summary of old records: Urinalysis today: No results for input(s): EXTPOCURCO , EXTPOCURCH , EXTPOCAPP , EXTPOCURBS , EXTPOCURBIL , EXTPOCUKET , EXTPOCUSPG , EXTPOCUHGB , EXTPOCUPRO , EXTPOCUURO , EXTPOCULEU , EXTPOCUNIT , EXTPOCUWBC , EXTPOCUBLD , EXTPOCURBC , EXTPOCUCRY , EXTPOCUBAC , EXTPOCUTREP , EXTPOCUPH , EXTPOCULEE in the last 72 hours. Last BUN and creatinine: Lab Results Component Value Date BUN 15 12/02/2023 Lab Results Component Value Date CREATININE 0.91 12/02/2023 Last PSA: Lab Results Component Value Date PSA 2.43 10/17/2023 No results found for: PROSTATICSP Past Medical, Family, and Social History Update: The following portions of the patient's history were reviewed and updated as appropriate: allergies, current medications, past family history, past medical history, past social history, past surgical history and problem list. Past Medical History: Diagnosis Date Bipolar disorder [place] Chronic constipation Depression Hyperlipidemia Visual impairment Past Surgical History: Procedure Laterality Date CHOLECYSTECTOMY 2020 COLONOSCOPY CYSTOSCOPY N/A 10/30/2023 Performed by Lida Suh MD at [facility] CYSTOSCOPY TRANSURETHRAL RESECTION BLADDER TUMOR N/A 10/30/2023 Performed by Lida Suh MD at [facility] History reviewed. No pertinent family history. Current Outpatient Medications Medication Sig Dispense Refill citalopram (CeleXA) 20 mg tablet Take 1 tablet (20 mg total) by mouth in the morning. ketorolac (TORADOL) 10 mg tablet Take 1 tablet (10 mg total) by mouth every 6 (six) hours as needed for pain. 20 tablet 0 lamoTRIgine (LaMICtal) 100 mg tablet Take 1 tablet (100 mg total) by mouth in the morning. No current facility-administered medications for this visit. (All medications reviewed and updated by provider since last office visit or hospitalization) Allergies: Vicodin [hydrocodone-acetaminophen] Tobacco History: Social History Tobacco Use Smoking Status Every Day Current packs/day: 0.50 Average packs/day: 0.5 packs/day for 35.5 years (17.8 ttl pk-yrs) Types: Cigarettes Start date: 1988 Smokeless Tobacco Never (If patient a smoker, smoking cessation counseling offered) Social History: Social History Substance and Sexual Activity Alcohol Use Never Review of Systems: General: Negative for chills and fever. Cardiovascular: Negative for chest pain and shortness of breath. Gastrointestinal: Negative for constipation, diarrhea, nausea, and vomitting. -per HPI Physical Exam: BP 94/68 Pulse 73 Ht 185.4 cm (6' 1 ) Wt 115.7 kg (255 lb) BMI 33.64 kg/m General Alert., Cooperative. Not in acute distress. Non-toxic. Orientation - Oriented X3. Head and Neck Normocephalic, atraumatic with no lesions. No abnormal movements. Trachea - midline. Integumentary Normal coloration of skin. Skin Moisture - normal skin moisture. Chest and Lung Exam Quiet, even and easy respiratory effort with no use of accessory muscles. Neurologic NON-focal Assessment and Plan: Reno was seen today for follow-up. Diagnoses and all orders for this visit: Urinary incontinence, unspecified type - Measure post void residual Elevated PSA Malignant neoplasm of overlapping sites of bladder ([facility]) Problem List High Malignant neoplasm of overlapping sites of bladder (CMS-HCC) Overview ==== 11/13/2023 ==== #### status post cystoscopy TURBT. Noninvasive low-grade urothelial carcinoma lately treated. Plan: Patient understands need for follow-up. In particular cystoscopy serially. Next 1 in 3 months. Does have some lower urinary tract symptoms. Urine for culture. Urinary antiseptic prescription written as well. ==== 09/04/2023 ==== microscopic hematuria. Through outside evaluation. Smoking history as well. Plan: Completion hematuria evaluation cytology CT urogram cystoscopy. Current Assessment & Plan Postop day of have clots and clot retention. This has resolved. He was started on finasteride and Flomax at the time of the ER visit. He was not on these before. He can stop those. Elevated PSA Overview ==== 01/29/2024 ==== will set up the PSA after his next cysto in March ==== 11/13/2023 ==== repeat PSA 2.43. Will obtain another 1 in 6 months ==== 09/04/2023 ==== history elevated PSA for his age. 3.5. Had previous PSA before little over 1 and then about 2 and half for so. No strong family history prostate carcinoma. Breast or ovarian carcinoma. Digital rectal exam benign feeling prostate. Certainly need to verify value. Repeat PSA 2 months return clinic. Current Assessment & Plan He can stop his Flomax as well as finasteride Follow-up: Have patient keep his OR date for March 18 Lida Suh MD I, Lida Suh MD, was responsible for the contents of the history of present illness, physical examination and assessment and plan This note was created with the assistance of a speech recognition program. While intending to generate a timely document that accurately reflects the content of the visit, no guarantee can be provided that every grammatical or spelling mistake has been or will be identified or corrected. Thank you for your understanding. documented in this encounter [employer] 01-21-2024 Miscellaneous Notes Patient calls in he is out of his Tamsulosin and Finasteride which he states he was prescribed in the ER. He is asking if you can refill it until he sees him in the office on Saturday01/29/24 - He was in the [place] ER - He was urinating blood clots causing him to go into Urinary retention. [facility] in [place] These were both refilled by me on December 18 to the appropriate pharmacy Patient informed to call [facility] to have them fill, as they may be on file. documented in this encounter [facility] 01-21-2024 Telephone encounter Note Patient calls in he is out of his Tamsulosin and Finasteride which he states he was prescribed in the ER. He is asking if you can refill it until he sees him in the office on Saturday01/29/24 - He was in the [place] ER - He was urinating blood clots causing him to go into Urinary retention. [facility] [place] [facility] 01-21-2024 Telephone encounter Note These were both refilled by me on December 18 to the appropriate pharmacy [facility] 01-21-2024 Telephone encounter Note Patient informed to call [facility] to have them fill, as they may be on file. [facility] 12-19-2023 Miscellaneous Notes Richard from [facility] at Dr. Olsen's office in [place] is asking if pt is to continue on the Flomax and the Proscar for more than a month? He was prescribed these at the ER and was only given 30 days worth of each. Pt was to see you yesterday, but is now scheduled for 01/29/2024. I refilled those prescriptions when we see him in January we can determine what to do Richard was notified and will let pt know. documented in this encounter [facility] 12-19-2023 Telephone encounter Note Richard from [facility] at Dr. Olsen's office in [place] is asking if pt is to continue on the Flomax and the Proscar for more than a month? He was prescribed these at the ER and was only given 30 days worth of each. Pt was to see you yesterday, but is now scheduled for 01/29/2024. [facility] 12-19-2023 Telephone encounter Note I refilled those prescriptions when we see him in January we can determine what to do [facility] 12-19-2023 Telephone encounter Note Richard was notified and will let pt know. [facility] 11-13-2023 Evaluation + Plan note Associated Problem(s): Malignant neoplasm of overlapping sites of bladder (CMS-HCC) Patient with incidental finding CT urogram some bony changes. PSA is really not the elevated actually PSA is better now. Talked about potential metastasis. Certainly need a bone scan to evaluate. Return clinic. [facility] 11-13-2023 Miscellaneous Notes Associated Problem(s): Malignant neoplasm of overlapping sites of bladder (CMS-HCC) Patient with incidental finding CT urogram some bony changes. PSA is really not the elevated actually PSA is better now. Talked about potential metastasis. Certainly need a bone scan to evaluate. Return clinic. documented in this encounter [facility] 11-13-2023 Miscellaneous Notes 3-4 months cysto local [place] diagnosis history urothelial carcinoma. Urine for fish and cytology 2 weeks prior. documented in this encounter [facility] 11-13-2023 Telephone encounter Note 3-4 months cysto [facility] [place] diagnosis history urothelial carcinoma. Urine for fish and cytology 2 weeks prior. [facility] 11-13-2023 History of Presen t illness Narrative Images from the original note were not included. [address] [place] [id number] Patient: Reno Abreu Date of : 1970 Encounter Date: 11/13/2023 History of Present Illness: The patient is a 52 y.o. male, an established patient, and is here for history bladder cancer status post TURBT. Doing well postprocedure. Has some dysuria. Details as below. No fevers no chills.. Urinalysis today: No results for input(s): EXTPOCURCO , EXTPOCURCH , EXTPOCAPP , EXTPOCURBS , EXTPOCURBIL , EXTPOCUKET , EXTPOCUSPG , EXTPOCUHGB , EXTPOCUPRO , EXTPOCUURO , EXTPOCULEU , EXTPOCUNIT , EXTPOCUWBC , EXTPOCUBLD , EXTPOCURBC , EXTPOCUCRY , EXTPOCUBAC , EXTPOCUTREP , EXTPOCUPH in the last 72 hours. Last BUN and creatinine: No results found for: BUN No results found for: CREATININE Last PSA: Lab Results Component Value Date PSA 2.43 10/17/2023 No results found for: PROSTATICSP Past Medical, Family, and Social History Update: The following portions of the patient's history were reviewed and updated as appropriate: allergies, current medications, past family history, past medical history, past social history, past surgical history and problem list. Past Medical History: Diagnosis Date Bipolar disorder ([facility]) Chronic constipation Depression Hyperlipidemia Visual impairment Past Surgical History: Procedure Laterality Date CHOLECYSTECTOMY 2020 COLONOSCOPY CYSTOSCOPY N/A 10/30/2023 Performed by Lida Suh MD at [facility] CYSTOSCOPY TRANSURETHRAL RESECTION BLADDER TUMOR N/A 10/30/2023 Performed by Lida Suh MD at [facility] History reviewed. No pertinent family history. Current Outpatient Medications Medication Sig Dispense Refill atorvastatin (LIPITOR) 10 mg tablet Take 1 tablet (10 mg total) by mouth in the morning. citalopram (CeleXA) 20 mg tablet Take 1 tablet (20 mg total) by mouth in the morning. lamoTRIgine (LaMICtal) 100 mg tablet Take 1 tablet (100 mg total) by mouth in the morning. libanwbqg-dtbbo-cvh (URO-MP) 118-10-40.8-36 mg capsule Take 1 capsule by mouth in the morning and 1 capsule at noon and 1 capsule in the evening and 1 capsule before bedtime. Do all this for 7 days. 28 capsule 0 No current facility-administered medications for this visit. (All medications reviewed and updated by provider since last office visit or hospitalization) Allergies: Vicodin [hydrocodone-acetaminophen] Tobacco History: Social History Tobacco Use Smoking Status Every Day Current packs/day: 0.50 Average packs/day: 0.5 packs/day for 35.3 years (17.7 ttl pk-yrs) Types: Cigarettes Start date: 1988 Smokeless Tobacco Never (If patient a smoker, smoking cessation counseling offered) Social History: Social History Substance and Sexual Activity Alcohol Use Never Review of Systems: General: Negative for chills and fever. Cardiovascular: Negative for chest pain and shortness of breath. Gastrointestinal: Negative for constipation, diarrhea, nausea, and vomitting. Physical Exam: BP 106/72 Pulse 69 Ht 188 cm (6' 2 ) Wt [...] no use of accessory muscles. Neurologic NON-focal No LE edema, calf pain or tenderness Assessment and Plan: [place] was seen today for follow-up. Diagnoses and all orders for this visit: Malignant neoplasm of overlapping sites of bladder (CMS-HCC) - Urine Culture; Future - Cytology; Future - Urovysion for bladder; Future - NM bone scan whole body; Future Elevated PSA - Prostatic specific antigen, diagnostic; Future - NM bone scan whole body; Future Other orders - libancfud-wfawy-lka (URO-MP) 118-10-40.8-36 mg capsule; Take 1 capsule by mouth in the morning and 1 capsule at noon and 1 capsule in the evening and 1 capsule before bedtime. Do all this for 7 days. Problem List High Malignant neoplasm of overlapping sites of bladder (CMS-HCC) - Primary Overview ==== 11/13/2023 ==== #### status post cystoscopy TURBT. Noninvasive low-grade urothelial carcinoma lately treated. Plan: Patient understands need for follow-up. In particular cystoscopy serially. Next 1 in 3 months. Does have some lower urinary tract symptoms. Urine for culture. Urinary antiseptic prescription written as well. ==== 09/04/2023 ==== microscopic hematuria. Through outside evaluation. Smoking history as well. Plan: Completion hematuria evaluation cytology CT urogram cystoscopy. Relevant Orders Urine Culture Cytology Urovysion for bladder NM bone scan whole body Elevated PSA Overview ==== 11/13/2023 ==== repeat PSA 2.43. Will obtain another 1 in 6 months ==== 09/04/2023 ==== history elevated PSA for his age. 3.5. Had previous PSA before little over 1 and then about 2 and half for so. No strong family history prostate carcinoma. Breast or ovarian carcinoma. Digital rectal exam benign feeling prostate. Certainly need to verify value. Repeat PSA 2 months return clinic. Relevant Orders Prostatic specific antigen, diagnostic NM bone scan whole body Follow-up: 1)Setup OR 2)Bone scan return clinic 3) Six months PSA return clinic Lida Suh MD 2 or more chronic urologic conditions addressed today. Prescription drug management performed during today's office visit Equal to or greater than 3 distinct studies were ordered and or reviewed during this encounter ordered PSA. Ordered urine fish cytology as well. This note was created with the assistance of a speech recognition program. While intending to generate a timely document that accurately reflects the content of the visit, no guarantee can be provided that every grammatical or spelling mistake has been or will be identified or corrected. Thank you for your understanding. documented in this encounter [employer] 11-07-2023 Miscellaneous Notes Patient is having intermittent blood with urination. Patient also states he is urinating frequently and sometimes its a very good stream but he oconnell at the end of the stream, then he tries to push a little more and it drips blood. Patient just wants to be sure things are going as it should. Pt states he lives in [place] Pt's f/u appt is scheduled for 11/13/2023 He is also asking about his path results. Findings are very typical postprocedure. Will review pathology at office appointment. Should he wish I did place an order for urine culture he can always have that obtained. Patient was informed documented in this encounter [facility] 11-07-2023 Telephone encounter Note Patient is having intermittent blood with urination. Patient also states he is urinating frequently and sometimes its a very good stream but he oconnell at the end of the stream, then he tries to push a little more and it drips blood. Patient just wants to be sure things are going as it should. Pt states he lives in [place] Pt's f/u appt is scheduled for 11/13/2023 He is also asking about his path results. [facility] 11-07-2023 Telephone encounter Note Findings are very typical postprocedure. Will review pathology at office appointment. Should he wish I did place an order for urine culture he can always have that obtained. [facility] 11-07-2023 Telephone encounter Note Patient was informed [facility] 10-31-2023 Miscellaneous Notes Patient called in stating he is in a lot of pain every time he goes to urinate. [place] would like something sent over to the pharmacy on file. Please advise Pyridium sent to his pharmacy documented in this encounter [facility] 10-31-2023 Telephone encounter Note Patient called in stating he is in a lot of pain every time he goes to urinate. [place] would like something sent over to the pharmacy on file. Please advise [facility] 10-31-2023 Telephone encounter Note Pyridium sent to his pharmacy [facility] 10-30-2023 Miscellaneous Notes Patient needs to follow up in the office in [place] 2-3 weeks or so. Follow up on the TURBT. documented in this encounter [facility] 10-30-2023 Telephone encounter Note Patient needs to follow up in the office in [place] 2-3 weeks or so. Follow up on the TURBT. [facility] 10-17-2023 Instructions Tiffanie Altamirano RN - 10/17/2023 9:00 AM EDT Preoperative Education Checklist- General Surgery date: 10/30/23 Surgery time: 930a Arrival time: 730a 1. Bring a photo ID and your insurance card with you the day of surgery. You will check in at the main lobby of the [facility]- registration desk is straight ahead as soon as you walk in. Tell them you are here for surgery. 2. If you have a Living Will/Durable Power of Rug Cleaner for Health Care that is not on [...] after you have bathed. 5. NO nail togolese/acrylic on at least one finger. If you are having a hand, wrist or foot surgery then all nail togolese and artificial/acrylic nails must be removed from [...] please call the Preadmission Testing office at [phone], Mon.-Fri. 7 a.m.-3 p.m. Leave a voicemail [...] with your doctor. documented in this encounter [facility] 09-04-2023 Miscellaneous Notes Cysto potential retrograde pyelogram. Mac anesthesia [place]. Possible biopsy. Diagnosis is hematuria. documented in this encounter [facility] 09-04-2023 Telephone encounter Note Cysto potential retrograde pyelogram. Mac anesthesia [place]. Possible biopsy. Diagnosis is hematuria. [facility] 09-04-2023 Evaluation + Plan note Associated Problem(s): [...] system. The patient acknowledges this and agrees. [facility] 09-04-2023 Miscellaneous Notes Associated Problem(s): Hematuria, microscopic [...] this and agrees. documented in this encounter [facility] 09-04-2023 History of Presen t illness Narrative Images from the original note were not included. [address] [place] [address] [facility] [id number] Patient: [place] Abreu Date of : 1970 [...] history. Past Surgical History: Procedure Laterality Date 2020 History reviewed. No pertinent family history. [...] for your understanding. documented in this encounter [facility] 08-21-2023 Telephone encounter Note pt called needing a refill on his lamoTRIgine (LaMICtal) 100 MG tablet and citalopram (CeleXA) 20 MG tablet [facility] 08-21-2023 Miscellaneous Notes pt called needing a refill on his lamoTRIgine (LaMICtal) 100 MG tablet and citalopram (CeleXA) 20 MG tablet documented in this encounter [facility] Evaluation note No assessment inform ation available [facility] Work Phone: Evaluation note Diagnosis Bipolar affective disorder, remission status unspecified (CMS/HCC)- Primary documented in this encounter [facility] HealthcareEvaluation note* Diagnosis Mixed hyperlipidemia (CMS/HCC)- Primary Mixed hyperlipidemia documented in this encounter [facility]* Diagnosis Mixed hyperlipidemia (CMS/HCC) Mixed hyperlipidemia Bipolar affective disorder, remission status unspecified (CMS/HCC) documented in this encounter [facility]* Diagnosis Bipolar affective disorder, remission status unspecified (CMS/HCC)- Primary Malignant neoplasm of overlapping sites of bladder (CMS/HCC) Tobacco user Tobacco use disorder Lump of skin Localized superficial swelling, mass, or lump Contusion of scalp, initial encounter Mixed hyperlipidemia (CMS/HCC) Mixed hyperlipidemia documented in this encounter [facility]* [...] status unspecified (CMS/HCC) documented in this encounter [facility]Evaluation [facility]* Diagnosis Diverticulitis- Primary Diverticulitis of [...] Bipolar affective disorder, remission status unspecified (CMS/HCC) Hypocalcemia- Primary Hyperglycemia Other abnormal glucose documented in this encounter [facility]* [...] Bipolar affective disorder, remission status unspecified (CMS/HCC) Vitamin D deficiency- Primary documented in this encounter [facility]* Diagnosis Elevated PSA- Primary Elevated prostate specific antigen (PSA) Hematuria, microscopic Microscopic hematuria Malignant neoplasm of overlapping sites of bladder (CMS-HCC)- Primary Elevated PSA Elevated prostate specific antigen (PSA) Urinary incontinence, unspecified type- Primary Elevated PSA Elevated prostate specific antigen (PSA) Malignant neoplasm of overlapping sites of bladder (CMS-HCC) Elevated PSA- Primary Elevated prostate specific antigen (PSA) Malignant neoplasm of overlapping sites of bladder (CMS-HCC) [facility] Hematuria, microscopic- Primary Microscopic hematuria [facility] Diagnosis Malignant neoplasm of overlapping sites of bladder (CMS-HCC)- Primary Elevated PSA Elevated prostate specific antigen (PSA) [facility] Diagnosis Elevated PSA- Primary Elevated prostate specific antigen (PSA) Hematuria, microscopic Microscopic hematuria [facility] Diagnosis Malignant neoplasm of overlapping sites of bladder (CMS-HCC)- Primary Urinary incontinence, unspecified type- Primary Elevated PSA Elevated prostate specific antigen (PSA) Malignant neoplasm of overlapping sites of bladder (CMS-HCC) Malignant neoplasm of overlapping sites of bladder (CMS-HCC) [facility]* Diagnosis Elevated PSA- Primary Elevated prostate [...] of bladder (CMS-HCC) [facility] illness Narrative* Brooklynn Yeager, SENIOR RELIABILITY ENGINEER - 07/30/2024 8:40 AM EST Images from [...] Abdominal pain 09/26/2023 Abnormal TSH Bipolar disorder ([facility]) 07/22/2023 Chicken pox Cholelithiasis Constipation, chronic COVID-19 virus infection DDD (degenerative disc disease), lumbar Diverticulitis 06/26/2023 Genital warts 09/26/2023 History of HPV infection 09/26/2023 HLD (hyperlipidemia) ([facility]) 07/22/2023 Insomnia 09/26/2023 Lipoma 09/26/2023 Lumbar back [...] of the risks of continued smoking: stroke, MO, all forms of cancer, lung disease, and [...] of the risks of continued smoking: stroke, MO, all forms of cancer, lung disease, and [...] with Urology for mgmt [facility] Additional Instructions As we discussed, your symptoms of excessive sleepiness during the day, persistent fatigue, and loud snoring suggest possible sleep apnea. Please follow up with your doctor about this as you may need to be referred for a sleep study. MiraLax may be used daily to stay regular and prevent constipation. May be taken twice daily until constipation is resolved.[facility] Work Phone: InstructionsNot on filedocumented [...] on filedocumented in this encounter [facility] Summary Purpose Family History Relationship Condition Age [...] Comments 12/01/2023 12:29 PM 12/02/2023 5:55 PM Date Activated Date Inactivated Comments 12/01/2023 12:29 PM 12/02/2023 5:55 PM Chief Complaint and Reason for Visit Chief Complaint Dizzy, Fatigue, Weak ness Chief Complaint Dizzy, Fatigue, Weak ness family HX of colon cancer Multiple Masses Chief Complaint Blood in Urine Reason for Referral Specialty Diagnoses / Procedures Referred By Helen hayes Referred To Contact Radiology Diagnoses Malignant neoplasm of overlapping sites of bladder (CMS-HCC) Elevated PSA Procedures NM bone scan whole body Lida Suh MD [address] [place] [id number] [facility] [address] [place] [address] Phone: [phone] Referral ID Status Reason Start Date Expiration Date V isits Requested Visits Authorized [id number] PREG Nurse Review 11/13/2023 11/12/2024 5 5 Specialty Diagnoses / Procedures Referred By Helen hayes Referred To Contact Radiology Diagnoses Hematuria, microscopic Procedures CT urogram Lida Suh MD [address] [place] [id number] Referral ID Status Reason Start Date Expiration Date V isits Requested Visits Authorized [id number] Pending Review 09/04/2023 09/03/2024 1 1 Specialty Diagnoses / Procedures Referred By Helen hayes Referred To Contact Diagnoses Urinary incontinence, unspecified type Procedures Measure post void residual Lida Suh MD [address] [place] [id number] Referral ID Status Reason Start Date Expiration Date V isits Requested Visits Authorized [id number] Pending Review 01/29/2024 01/28/2025 1 1 Additional Source Comments (unrecognized sect ion and content) No Status Records FoundNo Status Records FoundNo Status Records FoundNo Status Records FoundNo Status Records FoundNo Status Records FoundNo Status Records Found INFORMATION SOURCE (unrecogn ized section and content) DATE CREATED AUTHOR 02/04/2018 [employer] [employer] [facility] DATE CREATED AUTHOR AUTHOR'S ORGANIZ ATION 10/02/2022 [facility] DATE CREATED AUTHOR AUTHOR'S ORGANIZ ATION 12/03/2023 [facility] DATE CREATED AUTHOR AUTHOR'S ORGANIZ ATION 12/11/2023 [facility] DATE CREATED AUTHOR AUTHOR'S ORGANIZ ATION 06/28/2024 [facility] DATE CREATED AUTHOR AUTHOR'S ORGANIZ ATION 08/02/2024 [facility] DATE CREATED AUTHOR AUTHOR'S ORGANIZ ATION 08/22/2024 [facility] Care Teams (unrecognized sec tion and content) [...] Active Brooklynn Yeager Primary Care Provider Active Malariologist Relationship Specialty Start Date End Date Eusebio Schneider MD [address] [place] [address] PCP - General Family Medicine 07/16/23 Brooklynn Yeager NP [address] [place] [address] Nurse Practitioner Family Medicine 05/15/23 Malariologist Relationship Specialty Start Date End Date Eusebio Schneider MD [address] [place] [address] PCP - General Family Medicine 07/16/23 Brooklynn Yeager NP [address] [place] [phone] Nurse Practitioner Family Medicine 05/15/23 Team Status: Inactive Member Role Status Dates Brooklynn Yeager Primary Care Provider Active Sta rt: December 01, 2023 End: December 01, 2023 Hernandez Lares Jr, MD Emergency Provider Active Start: December 01, 2023 End: December 01, 2023 Malariologist Relationship Specialty Start Date End Date Eusebio Schneider MD [address] [place] [address] PCP - General Family [facility] 09/26/23 Brooklynn Yeager NP [address] [place] [address] PCP - [facility] 01/13/24 Brooklynn Yeager NP [address] [place] [address] Nurse Practitioner Family Medicine 05/15/23 Brooklynn Yeager NP [address] [place] [address] Nurse Practitioner Family Medicine 09/26/23 Malariologist Relationship Specialty Start Date End Date Eusebio Schneider MD [address] [place] [address] PCP - General [facility] 09/26/23 Brooklynn Yeager NP [address] [place] [address] PCP - [facility] 01/13/24 Brooklynn Yeager NP [address] [place] [address] Nurse Practitioner Family Medicine 05/15/23 Brooklynn Yeager NP [address] [place] [address] Nurse Practitioner Family Medicine 09/26/23 Malariologist Relationship Specialty Start Date End Date Eusebio Schneider MD [address] [place] [address] PCP - General Family Medicine 09/26/23 Brooklynn Yeager NP [address] [place] [address] PCP - [facility] 01/13/24 Brooklynn Yeager NP [address] [place] [address] Nurse Practitioner Family Medicine 05/15/23 Brooklynn Yeager NP [address] [place] [address] Nurse Practitioner Family Medicine 09/26/23 Malariologist Relationship Specialty Start Date End Date Eusebio Schneider MD [address] [place] [address] PCP - General Family [facility] 09/26/23 Brooklynn Yeaegr NP [address] [place] [address] PCP - [facility] 01/13/24 Brooklynn Yeager NP [address] [place] [address] Nurse Practitioner Family Medicine 05/15/23 Brooklynn Yeager NP [address] [place] [address] Nurse Practitioner Family Medicine 09/26/23 Malariologist Relationship Specialty Start Date End Date Eusebio Schneider MD [address] [place] [address] PCP - General Family [facility] 09/26/23 Brooklynn Yeager NP [address] [place] [address] PCP - [facility] 01/13/24 Brooklynn Yeager NP [address] [place] [address] Nurse Practitioner Family Medicine 05/15/23 Brooklynn Yeager NP [address] [place] [address] Nurse Practitioner Family Medicine 09/26/23 Malariologist Relationship Specialty Start Date End Date Eusebio Schneider MD [address] [place] [address] PCP - General Family [facility] 09/26/23 Brooklynn Yeager NP [address] [place] [address] PCP - [facility] 01/13/24 Brooklynn Yeager NP [address] [place] [address] Nurse Practitioner Family Medicine 05/15/23 Brooklynn Yeager NP [address] [place] [address] Nurse Practitioner Family Medicine 09/26/23 Malariologist Relationship Specialty Start Date End Date Eusebio Schneider MD [address] [place] [address] PCP - General Family [facility] 09/26/23 Brooklynn Yeager NP [address] [place] [address] PCP - [facility] 01/13/24 Brooklynn Yeager NP [address] [place] [address] Nurse Practitioner Family Medicine 05/15/23 Brooklynn Yeager NP [address] [place] [address] Nurse Practitioner Family Medicine 09/26/23 Malariologist Relationship Specialty Start Date End Date Eusebio Schneider MD [address] [place] [address] PCP - General [facility] 09/26/23 Brooklynn Yeager NP [address] [place] [address] PCP - [facility] 01/13/24 Brooklynn Yeager NP [address] [place] [address] Nurse Practitioner Family Medicine 05/15/23 Brooklynn Yeager NP [address] [place] [address] Nurse Practitioner Family Medicine 09/26/23 Malariologist Relationship Specialty Start Date End Date Eusebio Schneider MD [address] [place] [address] PCP - General Family Medicine 09/26/23 Brooklynn Yeager NP [address] [place] [address] PCP - [facility] 01/13/24 Brooklynn Yeager NP [address] [place] [address] Nurse Practitioner Family Medicine 05/15/23 Brooklynn Yeager NP [address] [place] [address] Nurse Practitioner Family Medicine 09/26/23 Malariologist Relationship Specialty Start Date End Date Eusebio Schneider MD [address] [place] [address] PCP - General Family Medicine 09/26/23 Brooklynn Yeager NP [address] [place] [address] PCP - [facility] 01/13/24 Brooklynn Yeager NP [address] [place] [address] Nurse Practitioner Family Medicine 05/15/23 Brooklynn Yeager NP [address] [place] [address] Nurse Practitioner Family Medicine 09/26/23 Malariologist Relationship Specialty Start Date End Date Brooklynn Yeager [facility] PCP - General Nurse Practitioner 09/04/23 Malariologist Relationship Specialty Start Date End Date Brooklynn Yeager [facility] [address] [place] [address] PCP - General Nurse Practitioner 09/04/23 Malariologist Relationship Specialty Start Date End Date Brooklynn Yeager [facility] [address] [place] [address] PCP - General Nurse Practitioner 09/04/23 Malariologist Relationship Specialty Start Date End Date Brooklynn Yeager [facility] [address] [place] [address] PCP - General Nurse Practitioner 09/04/23 Malariologist Relationship Specialty Start Date End Date Brooklynn Yeager [facility] [address] [place] [address] PCP - General Nurse Practitioner 09/04/23 Malariologist Relationship Specialty Start Date End Date Brooklynn Yeager [facility] [address] [place] [address] PCP - General Nurse Practitioner 09/04/23 Malariologist Relationship Specialty Start Date End Date Brooklynn Yeager [facility] [address] [place] [address] PCP - General Nurse Practitioner 09/04/23 Malariologist Relationship Specialty Start Date End Date Brooklynn Yeager [facility] [address] [place] [address] PCP - General Nurse Practitioner 09/04/23 Malariologist Relationship Specialty Start Date End Date Brooklynn Yeager [facility] [address] [place] [address] PCP - General Nurse Practitioner 09/04/23 Malariologist Relationship Specialty Start Date End Date Brooklynn Yeager [facility] [address] [place] [address] PCP - General Nurse Practitioner 09/04/23 Malariologist Relationship Specialty Start Date End Date Brooklynn Yeager [facility] [address] [place] [address] PCP - General Nurse Practitioner 09/04/23 Malariologist Relationship Specialty Start Date End Date Brooklynn Yeager [facility] [address] [place] [address] PCP - General Nurse Practitioner 09/04/23 Malariologist Relationship Specialty Start Date End Date [facility] - General Nurse Practitioner 09/04/23 Malariologist Relationship Specialty Start Date End Date Brooklynn Yeager [facility] PCP - General Nurse Practitioner 09/04/23 Malariologist Relationship Specialty Start Date End Date FcokatyaBrooklynn [facility] PCP - General Nurse Practitioner 09/04/23 Malariologist Relationship Specialty Start Date End Date Brooklynn Yeager [facility] P[facility] - General Nurse Practitioner 09/04/23 Goals (unrecognized section and content) Goals may be documented in a n alternate sectionGoals may be documented in an alternate sectionGoals may be documented in an [...] (unrecogniz ed section and content) Reason Comments Follow-up Reason Comments Follow-up Reason Comments Elevated PSA Reason Comments Follow-up Review NM Bone Scan FOR RECORDS PERTAINING TO PATIENTS WHO ARE [...] BE BASED ON THE PRIMARY CLINICAL RECORDS. [employer] [facility]. provides no warranty or guarantee of the accuracy or completeness of information in this document.
[2024-09-11 19:53] VITALS: BP 110/64; PULSE 77; TEMP 37.1; O2SAT 99; BMI 31.5
[2024-09-11 20:31] LABS: Internal Control Within Normal Limits; Strep A Antigen Screen Negative
[2024-09-11 21:10] VITALS: BP 115/71; PULSE 69; TEMP 36.7; O2SAT 98
--- NOTE | 2024-09-11 21:19 | ED.GENADUL1 ---
HPI HPI - General Adult General Chief complaint: Upper Respiratory Infection Stated complaint: DIFF SWALLOWING Time Seen by Provider: 09/11/24 20:05 Source: patient Mode of arrival: walk-in Limitations: no limitations History of Present Illness HPI narrative: 3-year-old male presents here with chief complaint of sore throat. Patient states symptom began earlier today also has ear pain. No evidence of peritonsillar abscess patient is tolerating secretions well and uvula is midline. Patient does not have hot potato voice. He is otherwise in no acute distress. Swelling is noted to the right posterior oropharynx. Related Data Home Medications ?Medication ?Instructions ?Recorded ?Confirmed atorvastatin 10 mg tablet mg 11/28/23 citalopram 10 mg tablet mg 11/28/23 lamotrigine 100 mg tablet mg 11/28/23 Previous Rx's ?Medication ?Instructions ?Recorded penicillin V potassium 500 mg 500 mg PO BID 10 days #20 tabs 09/11/24 tablet Allergies Allergy/AdvReac Type Severity Reaction Status Date / Time acetaminophen (From Vicodin) AdvReac constipatio Verified 09/11/24 20:01 n hydrocodone (From Vicodin) AdvReac constipatio Verified 09/11/24 20:01 n Opioid HPI Opioid Management Most Recent Opioid Data: Last Pain Scale 10 09/11/24 21:07 09/11/24 Review of Systems ROS Narrative All Systems are negative except as noted/marked.All systems reviewed and otherwise negative PFSH PFSH Surgical History (Updated 11/28/23 @ 19:15 by Costa Mcknight) Hx of cholecystectomy ?Z90.49 - Acquired absence of other specified parts of digestive tract (ICD-10) Social History Little interest or pleasure in doing things: not at all Feeling down, depressed, or hopeless: not at all Exam Narrative Exam Narrative: A Nurses note and vital signs reviewed and patient is not hypoxic. General: The patient appears well and in no apparent distress. Patient is resting comfortably on cart. Skin: Warm, dry, no pallor noted. There is no rash noted. Head: Normocephalic, atraumatic Eye: Normal conjunctiva, no drainage, EOMI. PERRL Ears, Nose, Mouth, and Throat: Peritonsillar swelling, uvula midline, no obvious abscess patient tolerating secretions , oral mucosa is moist. Nares patent. Mouth without vesicles. Ear canals patent. Tm's without Erythema Cardiovascular: Regular Rate and Rhythm Respiratory: Patient is in no distress, no accessory muscle use, lungs are clear to auscultation, no wheezing, rales or rhonchi Back: non-tender, no CVA tenderness bilaterally to percussion. Musculoskeletal: The patient has no evidence of calf tenderness, no pitting edema, symmetrical pulses noted bilaterally Neurological: A&O x4, normal speech Psychiatric: Cooperative Constitutional Vital Signs, click to edit/add: Last Vital Signs Temp 98.1 F 09/11/24 21:10 Pulse 69 09/11/24 21:10 Resp 16 09/11/24 21:10 BP 115/71 09/11/24 21:10 Pulse Ox 98 09/11/24 21:10 O2 Del Method Room Air 09/11/24 21:10 Course Vital Signs Vital signs: Vital Signs Temperature 98.7 F 09/11/24 19:53 Pulse Rate 77 09/11/24 19:53 Respiratory Rate 18 09/11/24 19:53 Blood Pressure 110/64 09/11/24 19:53 Pulse Oximetry 99 09/11/24 19:53 Oxygen Delivery Method Room Air 09/11/24 19:53 Temperature 98.1 F 09/11/24 21:10 Pulse Rate 69 09/11/24 21:10 Respiratory Rate 16 09/11/24 21:10 Blood Pressure 115/71 09/11/24 21:10 Pulse Oximetry 98 09/11/24 21:10 Oxygen Delivery Method Room Air 09/11/24 21:10 Medical Decision Making [facility] Narrative Medical decision making narrative: Male presenting here chief complaint of right peritonsillar swelling and difficulty swallowing. Patient has no sign of peritonsillar abscess. Rapid strep was obtained but negative this time cultures are currently pending. Physical exam is consistent with probable strep pharyngitis. Patiently placed on Pen-Vee K and that mid kidneys here in the emergency room with Decadron and Pen-Vee K. Discharged home with penicillin VK and follow-up with primary care physician. Patient had no difficulty swallowing shows no signs of distress. Differential Diagnosis Differential Diagnosis: Pharyngitis, strep, URI Medical Records Medical records reviewed: Yes I reviewed the patient's medical records Lab Data Lab results reviewed: Yes I reviewed the patient's lab results Labs: Lab Results 09/11/24 Range/Units 20:00 Streptococcus Screen Negative Discharge Plan Discharge Chief Complaint: Upper Respiratory Infection Clinical Impression: Pharyngitis Patient Disposition: Home, Self-Care Time of Disposition Decision: 21:14 Condition: Good Prescriptions / Home Meds: New penicillin V potassium 500 mg tablet 500 mg PO BID 10 Days Qty: 20 0RF No Action atorvastatin 10 mg tablet citalopram 10 mg tablet lamotrigine 100 mg tablet Print Language: Romansh Instructions: Pharyngitis (ED) Referrals: Brooklynn Yeager NP [Primary Care Provider] - 1 week
[2024-09-11] MEDS: PENICILLIN V POTASSIUM 250 MG TABLET 500 MG PO (21:36)
[2024-09-11] MEDS: DEXAMETHASONE SOD PHOS 10 MG/ML VIAL PO (21:36)
== END 2024-09-11 21:46 | disposition home or self-care (01) ==
PROVIDERS: Emergency Provider Emergency Medicine; PCP Nurse Practitioner
DX: J02.9 Acute pharyngitis, unspecified (principal); Z90.49 Acquired absence of other specified parts of digestive tract
CPT/HCPCS: 87070; 87880; 99283; J1100

== ENCOUNTER 2024-10-12 06:31 | Outpatient (OUT) | payer OTHER, SELFPAY ==
--- OUTSIDE RECORDS SUMMARY | 2024-10-12 06:34 | XMS_ITS | CCD ---
Author Organization [facility] [place] [facility] Care Team Providers Care Firefighter Type One Name Role Phone KINJAL CHEW Unavailable Unavailable KINJAL CHEW Unavailable Unavailable Aichholz, Brooklynn J Primary Care Provider MD Hernandez Lares Jr Emergency Provider AICHHOLZ, AIR COMMODORE BROOKLYNN Attending Unavailable AICHHOLZ, AIR COMMODORE BROOKLYNN Consulting Unavailable AICHHOLZ, AIR COMMODORE BROOKLYNN Primary Care Unavailable AICHHOLZ, AIR COMMODORE BROOKLYNN Admitting Unavailable AICHHOLZ, AIR COMMODORE BROOKLYNN Attending Unavailable AICHHOLZ, AIR COMMODORE BROOKLYNN Consulting Unavailable AICHHOLZ, AIR COMMODORE BROOKLYNN Primary Care Unavailable AICHHOLZ, AIR COMMODORE BROOKLYNN Admitting Unavailable AICHHOLZ, AIR COMMODORE BROOKLYNN Primary Care Unavailable MISC, DR QUIGLEY Attending Unavailable MISC, DR QUIGLEY Consulting Unavailable MISC, DOCTOR Admitting Unavailable Aichholz, Brooklynn J Primary Care Provider MD Hernandez Lares Jr Emergency Provider MD Kevin Sheehan Attending Provider [phone] Aichholz PLANT OPERATIONS WORKER, Brooklynn Unavailable Eusebio Schneider MD Primary Care Provider [phone] LIDA SUH Referring Unavailable AICHHOLZ, BROOKLYNN J Primary Care Unavailable AICHHOLZ, BROOKLYNN J Primary Care Unavailable [facility] Consulti kaylan Unavailable BRICE DYSON Attending Unavailab JOSE Jamison Admitting Unavailable JOSE GARIBAY Attending Unavailable HERNANDEZ LARES JR Referring Unavailable AICMAYRA, BROOKLYNN J Primary Care Unavailable AICHJENNYZ, BROOKLYNN J Referring Unavailable AICHHOLZ, BROOKLYNN J Primary Care Unavailable Shobha, Brooklynn J Primary Care Unavailable Hernandez Lares Jr Attending Unavailable Hernandez Lares Jr Admitting Unavailable Aichholz PLANT OPERATIONS WORKER, Brooklynn Unavailable Eusebio Schneider MD Primary Care Provider Aichholz PLANT OPERATIONS WORKER, Brooklynn Unavailable Aichholz PLANT OPERATIONS WORKER, Brooklynn Unavailable LIDA SUH. Attending Unavailable LIDA SUH. Referring Unavailable AICHHOLZ, BROOKLYNN J Primary Care Unavailable AICHHOLZ, BROOKLYNN J Referring Unavailable AICHHOLZ, BROOKLYNN J Primary Care Unavailable LIDA SUH. Referring Unavailable AICHHOLZ, BROOKLYNN J Primary Care Unavailable LIDA SUH. Admitting Unavailable LIDA SUH Attending Unavailable AICHHOLZ, BROOKLYNN J Primary Care Unavailable EFE HENDERSON Attending Unavailable AICHHOLZ, BROOKLYNN J Primary Care Unavailable LIDA SUH. Referring Unavailable AICHHOLZ, BROOKLYNN J Primary Care Unavailable LIDA SUH. Attending Unavailable LIDA SUH. Referring Unavailable AICHHOLZ, BROOKLYNN J Primary Care Unavailable LIDA SUH Referring Unavailable AICHHOLZ, BROOKLYNN J Primary Care Unavailable AICHHOLZ, BROOKLYNN J Referring Unavailable AICHHOLZ, BROOKLYNN J Primary Care Unavailable LIDA SUH. Admitting Unavailable LIDA SUH. Attending Unavailable AICHHOLZ, BROOKLYNN J Primary Care Unavailable AICHHOLZ, BROOKLYNN J Referring Unavailable AICHHOLZ, BROOKLYNN J Primary Care Unavailable LIDA SUH. Admitting Unavailable LIDA SUH. Attending Unavailable AICHHOLZ, BROOKLYNN J Primary Care Unavailable LIDA SUH. Referring Unavailable AICHHOLZ, BROOKLYNN J Primary Care Unavailable Aichholz CABIN FURNISHINGS INSTALLER-AIR COMMODORE, Brooklynn J Primary Care Provider LIDA SUH Attending Unavailable AICHHOLZ, BROOKLYNN J Referring Unavailable AICHHOLZ, BROOKLYNN J Primary Care Unavailable LIDA SUH Attending Unavailable AICHHOLZ, BROOKLYNN J Referring Unavailable AICHHOLZ, BROOKLYNN J Primary Care Unavailable LIDA SUH Attending Unavailable AICHHOLZ, BROOKLYNN J Referring Unavailable AICHHOLZ, BROOKLYNN J Primary Care Unavailable LIDA SUH Attending Unavailable AICHHOLZ, BROOKLYNN J Primary Care Unavailable Brooklynn Rivera Primary Care Provider Brooklynn Rivera Primary Care Provider BROOKLYNN YEAGER Attending Unavailable BROOKLYNN YEAGER Attending Unavailable BROOKLYNN YEAGER Attending Unavailable Allergies Allergy Classification Reported Allergen(s) Allergy Type Date of Onset Reaction(s) Facility (4 sources) Acetaminophen; Translations: [acetaminophen] Drug Allergy 09-04-19 23 Gastrointestinal Upset [facility] (20 sources) HYDROcodone; Translations: [hydrocodone] Drug Allergy 09-04-19 23 GI intolerance [facility] (1 source) Acetaminophen / HYDROcodone Drug Allergy [facility] (20 sources) Acetaminophen / HYDROcodone; Translations: [HYDROCODONE-ACET AMINOPHEN] Drug Allergy 09-04-19 24 [facility] Rep[facility] Medications Current Medications Medication Drug Class(es) Dates Sig (Normalized) Sig (Original) acetaminophen 325 mg / oxyCODONE hydrochloride 5 mg oral tablet (4 sources) Opioid Agonist Start: 05-22-2024 oxyCODONE-acetamino phen (PERCOCET) 5-325 mg per tablet Indications: Malignant neoplasm of overlapping sites of bladder (CMS-HCC) Take prior to your urologic procedure-- someone must drive you 1 tablet 05/22/2024 Active Start: 04-04-2020 End: 10-22-2022 take 1 tablet by mouth every six hours Oxycodone-Acetaminophen Discontinued 1 T AB PO Q6H 28 7 April 04, 2020 October 22, 2022 2:09pm [id number] 200 actuat albuterol 0.09 mg/actuat metered dose [...] oral solution (1 source) alpha-Adrenergic Agonist, Uncompetitive A-eqsnml-X-aspartate Receptor Antagonist, Sigma-1 Agonist Start: 07-02-2024 End: 07-07-2024 take 10 mL by mouth four times daily as needed for cough ezxqlbuvzopryvd-sanmbadjlmiupls-MM 30-2-10 MG/5ML syrup Indications: COVID Take 10 mL by mouth 4 (four) times a day as needed for cough or congestion for up to 5 days 200 mL 07/02/2024 07/07/2024 Active cholecalciferol 0.125 mg oral capsule (4 sources) Vitamin D Start: 08-18-2024 End: 09-17-2024 [...] 90 tablet 1 07/30/2024 10/28/2024 Active Start: 10-22-2022 take 1 tablet by esau th once daily in the morning Citalopram (Celexa) 10 mg tablet Active 10 MG PO Every morning October 22, 2022 12:00am finasteride 5 mg oral tablet (18 sources) 5-alpha Reductase Inhibitor Start: 12-19-2023 End: 01-29-2024 take 1 tablet by mouth once daily finasteride (Proscar) 5 MG tablet Take 5 mg by mouth Daily 12/19/2023 Active hyoscyamine sulfate 0.12 mg / methenamine 118 mg / methylene blue 10 mg / phenyl salicylate 36 mg / sodium phosphate, monobasic 40.8 mg oral capsule (2 sources) Oxidation-Reduction Agent Start: 11-13-2023 End: 11-20-2023 libanph kw-fivpk-xoe (URO-MP) 118-10-40.8-36 mg capsule Take 1 capsule [...] in the morning. 02/20/2024 Active Start: 10-22-2022 take 1 tablet by esau th twice daily Lamotrigine (Lamictal) 25 mg tablet Active 25 MG PO Twice daily October 22, 2022 12:00am phenazopyridine hydrochloride 100 mg oral tablet (1 source) Start: 10-31-2023 End: 11-03-2023 take 1 tablet by mouth three times daily phenazopyridine (PYRIDIUM) 100 mg tablet Take 1 tablet (100 mg total) by mouth 3 (three) times a day for 9 doses. 9 tablet 10/31/2023 11/03/2023 Active tamsulosin hydrochloride 0.4 mg oral capsule (18 sources) alpha-Adrener gic Kwan Start: 12-19-2023 End: [...] Sig (Normalized) Sig (Original) polyethylene glycol 3350 20306 mg powder for oral solution (3 sources) [...] 09-04-2023 03-30-2024 Chronic Diabetes mellitus without complication (5 sources) Hyperglycemia; Translations: [Hyperglycemia, unspecified] Onset: 08-14-2024 08-14-2024 Episodic Disorders of lipid metabolism (20 sources) Hyperlipidemia; Translations: [Hyperlipidemia, unspecified] Onset: 07-22-2023 Resolved: 09-26-2023 07-22-2023 Chronic Diverticulosis and diverticulitis (16 sources) Diverticulitis; Translations: [Diverticulitis of intestine, part unspecified, without perforation or abscess without bleeding] Onset: 06-26-2023 06-26-2023 Chronic Genitourinary symptoms and ill-defined conditions (2 sources) Unspecified urinary incontinence; Translations: [Urinary incontinence] Onset: 01-29-2024 01-29-2024 Chronic Intestinal obstruction without hernia (3 sources) Intussusception of intestine; Translations: [Intussusception] 04-04-2020 Episodic Malaise and fatigue (3 sources) Fatigue; Translations: [Other fatigue] 09-05-2022 Episodic Miscellaneous mental health disorders (14 sources) Impotence; Translations: [Male erectile disorder] Onset: 09-26-2023 09-26-2023 Chronic Mood disorders (20 sources) Bipolar disorder; Translations: [Bipolar disorder, unspecified] Onset: 07-22-2023 08-21-2023 Chronic Nutritional deficiencies (3 sources) Vitamin D deficiency; Translations: [Vitamin D deficiency, unspecified] Onset: 08-18-2024 08-18-2024 Chronic Other gastrointestinal disorders (3 sources) Constipation; Translations: [Constipation, unspecified] 09-05-2022 Episodic Other lower respiratory disease (3 sources) Snoring; Translations: [Snoring] 09-05-2022 Episodic Other nutritional; endocrine; and metabolic disorders (16 sources) Body mass index 30+ - obesity; Translations: [Obesity, unspecified] Onset: 09-26-2023 09-26-2023 Chronic Other nutritional; endocrine; and metabolic disorders (5 sources) Hypocalcemia; Translations: [Hypocalcemia] Onset: 08-14-2024 08-14-2024 Chronic Residual codes; unclassified (3 sources) Daytime somnolence; Translations: [Other hypersomnia] 09-05-2022 Chronic Spondylosis; intervertebral disc disorders; other back problems (16 sources) Degeneration of lumbar intervertebral disc; Translations: [Other intervertebral disc degeneration, lumbar region] Onset: 08-21-2023 08-21-2023 Chronic Unclassified (3 sources) CONTACT W/AND (SUSP) EXPOS COVID-19; Translations: [CONTACT W/AND (SUSP) EXPOS COVID-19] Onset: 11-06-2021 Unclassified (1 source) 52 yrs M (1970) [id number] Onset: 11-29-2023 Unclassified (1 source) Hematuria, microscopic [R31.29] Onset: 10-30-2023 Unclassified (1 source) Elevated PSA Onset: 09-04-2023 Viral infection (20 sources) Genital warts; Translations: [Anogenital (venereal) warts] Onset: 09-26-2023 09-26-2023 Episodic Past or Other Problems Problem Classification Problem Date Documented Da te Episodic/Chronic Abdominal pain (14 sources) Abdominal pain; Translations: [Unspecified abdominal pain] Onset: 09-26-2023 09-26-2023 Episodic Anal and rectal conditions (14 sources) Rectal pain; Translations: [Other specified diseases of anus and rectum] Onset: 09-26-2023 09-26-2023 Episodic Genitourinary symptoms and ill-defined conditions (20 sources) Microscopic hematuria; Translations: [Other microscopic hematuria] Onset: 07-29-2023 Resolved: 03-30-2024 07-29-2023 Episodic Mood disorders (10 sources) Mood disorders Onset: 12-01-2023 12-01-2023 Other and unspecified benign neoplasm (14 sources) Lipoma (clinical); Translations: [Benign lipomatous neoplasm, unspecified] Onset: 09-26-2023 09-26-2023 Episodic Other gastrointestinal disorders (16 sources) Chronic constipation; Translations: [Other constipation] Onset: 08-21-2023 08-21-2023 Episodic Other infections; including parasitic (14 sources) History of human papilloma virus infection; Translations: [Personal history of other infectious and parasitic diseases] Onset: 09-26-2023 09-26-2023 Episodic Other nutritional; endocrine; and metabolic disorders (4 sources) Polydipsia; Translations: [POLYDIPSIA] Onset: 03-08-2022 Episodic Other screening for suspected conditions (not mental disorders or infectious disease) (20 sources) Encounter for screening, unspecified; Translations: [Patient encounter status] Onset: 09-18-2022 Episodic Other skin disorders (16 sources) Multiple skin tags; Translations: [Other hypertrophic disorders of the skin] Onset: 07-22-2023 07-22-2023 Episodic Other skin disorders (15 sources) Mass of skin; Translations: [Localized swelling, mass and lump, unspecified] Onset: 03-30-2024 03-30-2024 Episodic Residual codes; unclassified (20 sources) Tobacco user; Translations: [Tobacco use] Onset: 07-22-2023 07-22-2023 Episodic Residual codes; unclassified (14 sources) Insomnia; Translations: [Insomnia, unspecified] Onset: 09-26-2023 09-26-2023 Episodic Superficial injury; contusion (15 sources) Contusion of scalp; Translations: [Contusion of scalp, initial encounter] Onset: 03-30-2024 Resolved: 07-30-2024 03-30-2024 Episodic Unclassified (1 source) CONTACT W/AND (SUSP) EXPOS COVID-19; Translations: [CONTACT W/AND (SUSP) EXPOS COVID-19] Onset: 11-03-2021 Results Test Name Value Interpretation Reference Range Facility UPPER RESPIRATORY CULTUREon 09-14-2024 UPPER RESPIRATORY CULTURE Upper Respiratory Culture [facility] UPPER RESPIRATORY CULTURE Routine respiratory anil [facility] UPPER RESPIRATORY CULTURE Performed at: [facility]PPER RESPIRATORY CULTURE [address], [place] [id number] [facility] UPPER RESPIRATORY CULTURE Acid Dipper: Juan Francisco Madison PhD, Phone: [phone] [facility] MLR HEMOGLOBIN A1Con 025 Glucose [Mass/Vol] 97 mg/dL [facility] HbA1c (Bld) [Mass fraction] 5 % 4.5 - 6.2 % [facility] Comment on above: ADA RECOMMENDED LIMI T 4.0 - 6.0 ADA THERAPEUTIC TARGET < 7.0 ACTION SUGGESTED > 7.0 [facility] ALL LIPID PROFILE (FASTING)o n 08-13-2024 CHOL HDL RATIO 2.9 [facility] Comment on above: 3.3 - 4.4 LOW RISK 4.4 - 7.1 AVERAGE RISK 7.1 - 11.0 MODERATE RISK >11.0 HIGH RISK Cholesterol [Mass/Vol] 138 mg/dL NINF - 200 mg/dL [facility] Cholesterol in HDL [Mass/Vol] 47 mg/dL 40 - 60 mg/dL [facility] Comment on above: > or =60 mg/dl - LOW CARDIOVASCULAR RISK <40 mg/dl - HIGH CARDIOVASCULAR RISK Magnesium [Mass/Vol] 76.4 mg/dL [facility] Comment on above: <100 mg/dl OPTIMAL 100-129 mg/dl NEAR OR ABOVE OPTIMAL 130-159 mg/dl BORDERLINE HIGH 160-189 mg/dl HIGH >190 mg/dl VERY HIGH Magnesium [Mass/Vol] 14.6 mg/dL [facility] Triglyceride [Mass/Vol] 73 mg/dL NINF - 150 mg/dL [facility] ALL THYROID STIM HORMONEon 0 08-13-2024 TSH Qn 2.102 m[IU]/L [facility] CCF CMP (CMP) (FOR REMOTE FH C USE)on 08-13-2024 Albumin [Mass/Vol] 3.3 g/dL Low 3.4 - 5.0 g/dL [facility] ALBUMIN GLOBULIN RATIO 1 [facility] ALP [Catalytic activity/Vol] 93 U/L 46 - 116 U/L [facility] ALT [Catalytic activity/Vol] 38 U/L 16 - 63 U/L [facility] Anion gap [Moles/Vol] 7.8 mmol/L [facility] AST [Catalytic activity/Vol] 19 U/L 15 - 37 U/L [facility] Bilirubin [Mass/Vol] 0.7 mg/dL 0.2 - 1 .0 mg/dL [facility] Calcium [Mass/Vol] 8.3 mg/dL Low 8.5 - 10. 1 mg/dL [facility] Chloride [Moles/Vol] 106 mmol/L 98 - 10 7 mmol/L [facility] CO2 [Moles/Vol] 32.1 mmol/L High 21.0 - 32.0 mmol/L [facility] Creatinine [Mass/Vol] 1.14 mg/dL 0.70 - 1.30 mg/dL [facility] GFR/1.73 sq M.predicted CKD-EPI (S/P/Bld) [Vol rate/Area] >60 >=60 mL/min/1.73m 2 [facility] Globulin (S) [Mass/Vol] 3.3 g/dL [facility] Glucose [Mass/Vol] 119 mg/dL High 74 - 106 mg/dL [facility] Interpretation and review of laboratory results Abnormal [facility] Potassium [Moles/Vol] 3.9 mmol/L 3.5 - 5.1 mmol/L [facility] Protein [Mass/Vol] 6.6 g/dL 6.4 - 8.2 g/dL [facility] Sodium [Moles/Vol] 142 mmol/L 136 - 145 mmol/L [facility] TBH EGFR-NON AF KYRGYZ >60 >=6 0 mL/min/1.73m 2 [facility] Urea nitrogen [Mass/Vol] 13 mg/dL 7.0 - 18.0 mg/dL [facility] Urea nitrogen/Creatinine [Mass ratio] 11.4 mg/mg [facility] No Panel Informationon 08-13 [facility] Cytologyon 06-17-2024 Cytology Normal [facility] Comment on above: Result Comment: [facility] [address] [place] [address] Cytology Consultation Patient Name:RENO ABREU:1970 (Age: 53)Gender:MTaken:06/17/2024eported:06/18/2024 14:16Physician(s):Lida Suh M.D. ([phone])Copy To: Rec. #:[id number]: #[id number] Final Cytologic Diagnosis Urine: Negative for high-grade urothelial cell carcinoma. 06/18/2024 [facility], [address] [place] [address], License number: [id number].Electronically Signed Out By Trevin Mallory MD Clinical History Malignant neoplasm of overlapping sites of bladder ([facility]-HCC) (C67.8) Gross Description Received was 50 mL of cloudy yellow fluid labeled as Brady, urine .Preservative added. 25 mL used for Cytology. See [facility] report. Source of Specimen Urine Non KNOCK OUT HAND ThinPrep Fee Code(s): 1; 24228 Reference Lab Test IDon 12-0 UROVYSION FOR BLADDER CANCER SEE COMMENTS 06/25/2024 12:33 PM Normal [facility] Comment on above: Result Comment: NOTE Test [...] specific probe for 9p21 ([employer] [place], [place]). This test has been modified from the safety coordinator's instructions. Its performance characteristics were determined by [facility] in a manner consistent with CLIA requirements. This test has not been cleared or approved by the U.S. Food and Drug Administration. Reason for Referral Evaluate for urothelial carcinoma. Specimen Varies Source Urine, NOS Released By See Note Calixto Gross M.D. Test Performed by: [place] [address] Acid Dipper: Te Moreau Ph.D.; CLIA# [id number] Performed By: #### 3 0896-5 ####[facility] ([id number])[address] [place] [address] Cytologyon 03-18-2024 Cytology Normal [facility] Comment on above: Result Comment: [facility] [address] [place] [address] Cytology Consultation Patient Name:RENO ABREU:1970 (Age: 53)Gender:MTaken:03/18/2024eported:03/19/2024 17:33Physician(s):Lida Suh M.D. ([phone])Copy To: Rec. #:[id number]: #[id number] Final Cytologic Diagnosis Urine clean catch: Negative for high-grade urothelial cell carcinoma. 03/19/2024 Interpretation performed at [facility], [address], [place] [address], License number: [id number].Electronically Signed Out By George Smith MD Clinical History Malignant neoplasm of overlapping sites of bladder ([facility]-HCC) C67.8 Gross Description Received was 70mL of cloudy nannette fluid unfixed labeled as [place], Urine clean catch . 35mL used for Cytology. See U[facility]Vysion report. Source of Specimen Urine clean catch Non KNOCK OUT HAND ThinPrep Fee Code(s): 1; 55506 Reference Lab Test IDon 09-0 UROVYSION FOR BLADDER CANCER SEE COMMENTS 03/26/2024 08:20 AM Normal [facility] Comment on above: Result Comment: NOTE Test [...] specific probe for 9p21 ([employer] [place], [place]). This test has been modified from the safety coordinator's instructions. Its performance characteristics were determined by [facility] in a manner consistent with CLIA requirements. This test has not been cleared or approved by the U.S. Food and Drug Administration. Reason for Referral Evaluate for urothelial carcinoma. Specimen Varies Source Urine, NOS Released By Adrianna Proctor M.D. Test Performed by: [place] [address] Acid Dipper: Te Moreau Ph.D.; CLIA# [id number] Performed By: #### 3 0896-5 ####[facility] ([id number])[address] [place] [address] Prostate specific Ag [Mass/V ol]on 03-09-2024 PROSTATIC SPEC ANT 2.12 ng/mL Normal 0.00-4.00 [facility] Comment on above: Result Comment: The method used for this test is Tomas [employer] DXI chemiluminescent immunoassay. Values obtained by different assay methods cannot be used interchangeably. Performed By: #### 2 857-1 #### [facility] ([id number]) [address] [address] [place] [address] URINE CULTUREon 03-09-2024 Bacteria identified Cx Nom (U) CULTURE RESULTS <10,000 ORGANISMS/ML NORMAL URO GENITAL ANIL Normal [facility] Comment on above: Performed By: #### 6 30-4 #### [facility] ([id number]) [address], [facility] [address] [place] [address] Measure post void residualon 01-29-2024 Volume 37ml [facility] BASIC METABOLIC PANLon 12-01 Anion gap [Moles/Vol] 6 mmol/L Normal 5-[address] [facility] Comment on above: Performed By: #### C BCA, BMP, 37368-0, 2777-1 #### [facility] ([id number]) [address], [address] [place] [address] Calcium [Mass/Vol] 8.0 mg/dL Low 8.5-10.5 [facility] Comment on above: Performed By: #### C BCA, BMP, 87394-5, 2777-1 #### [facility] ([id number]) [address], [address] [place] [address] Chloride [Moles/Vol] 104 mmol/L Normal 98-109 [facility] Comment on above: Performed By: #### C JOHN, [facility], , 2776-07 #### [facility] ([id number]) [address], [address] [place] [address] CO2 [Moles/Vol] 28 mmol/L Normal 22-32 [facility] Comment on above: Performed By: #### C JOHN, [facility], , 2776-07 #### [facility] ([id number]) [address], [address] [place] [address] Creatinine [Mass/Vol] 0.91 mg/dL Normal 0.60-1.[address] [facility] Comment on above: Result Comment: METH OD TRACEABLE TO IDMS STANDARD Performed By: #### C JOHN, ALEXYS, , 2776-07 #### [facility] ([id number]) [address], [address] [place] [address] eGFR (CKD-EPI) NON-RACE DEPENDENT >90 Normal >59 [facility] Comment on above: Result Comment: Reported eGFR is based on the CKD-EPI 2020 equation that does not use a race coefficient. Performed By: #### C JOHN, BMP, , 2776-07 #### [facility] ([id number]) [address], [address] [place] [address] Glucose [Mass/Vol] 112 mg/dL High 65-99 [facility] Comment on above: Performed By: #### C JOHN, BMP, , 2776-07 #### [facility] ([id number]) [address], [address] [place] [address] Potassium [Moles/Vol] 3.8 mmol/L Normal 3.5-5.[address] [facility] Comment on above: Performed By: #### C ALEXYS LOPEZ, , 2776-07 #### [facility] ([id number]) [address], [address] [place] [address] Sodium [Moles/Vol] 138 mmol/L Normal 134-146 [facility] Comment on above: Performed By: #### C ALEXYS LOPEZ, , 2776-07 #### [facility] ([id number]) [address], [address] [place] [address] Urea nitrogen [Mass/Vol] 15 mg/dL Normal 5-23 [facility] Comment on above: Performed By: #### C ALEXYS LOPEZ, , 2776-07 #### [facility] ([id number]) [address], [address] [place] [address] CBC AND AUTO DIFFon 05-20-20 24 ABSOLUTE BASOPHIL 0.0 X10E9/L Normal 0.0-0.2 [facility] Comment on above: Performed By: #### C ALEXYS LOPEZ, , 2776-07 #### [facility] ([id number]) [address], [address] [place] [address] ABSOLUTE NEUTROPHIL 3.7 X10E9/L Normal 1.5-6.6 [facility] Comment on above: Performed By: #### C ALEXYS LOPEZ, , 2776-07 #### [facility] ([id number]) [address], [address] [place] [address] Basophils/100 WBC (Bld) 0.4 % Normal [facility] Comment on above: Performed By: #### C JOHN, BMP, , 2776-07 #### [facility] ([id number]) [address], [address] [place] [address] Eosinophils (Bld) [#/Vol] 0.2 10*3/uL Normal 0.0-0.4 [facility] Comment on above: Performed By: #### C JOHN, BMP, , 2776-07 #### [facility] ([id number]) [address] [address] [place] [address] Eosinophils/100 WBC (Bld) 3.5 % Normal [facility] Comment on above: Performed By: #### C JOHN, BMP, , 2776-07 #### [facility] ([id number]) 0 [address] [facility] [address] [place] [address] Erythrocyte distribution width (RBC) [Ratio] 12.5 % Normal 11.5-15.0 [facility] Comment on above: Performed By: #### C JOHN, BMP, , 2776-07 #### [facility] ([id number]) [address] [address] [place] [address] Hematocrit (Bld) [Volume fraction] 40.6 % Normal 39-49 [facility] Comment on above: Performed By: #### C JOHN, BMP, , 2776-07 #### [facility] ([id number]) [address] [address] [place] [address] Hemoglobin (Bld) [Mass/Vol] 13.9 g/dL Normal 13.0-17.0 [facility] Comment on above: Performed By: #### C JOHN, BMP, , 2776-07 #### [facility] ([id number]) [address] [address] [place] [address] Lymphocytes (Bld) [#/Vol] 1.5 10*3/uL Normal 1.0-3.5 [facility] Comment on above: Performed By: #### C JOHN, BMP, , 2776-07 #### [facility] ([id number]) [address] [address] [place] [address] Lymphocytes/100 WBC (Bld) 25.2 % Normal [facility] Comment on above: Performed By: #### C JOHN BMP, , 2776-07 #### [facility] ([id number]) [address] [place] [address] MCH (RBC) [Entitic mass] 30.6 pg Normal 27-34 [facility] Comment on above: Performed By: #### C JOHN, BMP, , 2776-07 #### [facility] ([id number]) [address] [place] [address] MCHC (RBC) [Mass/Vol] 34.3 g/dL Normal 32-[address] [facility] Comment on above: Performed By: #### Richa LOPEZ, BMP, , 2776-07 #### [facility] ([id number]) [address] [place] [address] MCV (RBC) [Entitic vol] 89 fL Normal 80-100 [facility] Comment on above: Performed By: #### Richa LOPEZ, BMP, , 2776-07 #### [facility] ([id number]) [address], [address] [place] [address] Monocytes (Bld) [#/Vol] 0.5 10*3/uL Normal 0-0.9 [facility] Comment on above: Performed By: #### Richa LOPEZ, BMP, , 2776-07 #### [facility] ([id number]) [address], [address] [place] [address] Monocytes/100 WBC (Bld) 7.9 % Normal [facility] Comment on above: Performed By: #### Richa LOPEZ, BMP, , 2776-07 #### [facility] ([id number]) [address] [place] [address] Neutrophils/100 WBC (Bld) 63.0 % Normal [facility] Comment on above: Performed By: #### C ALEXYS LOPEZ, , 2776-07 #### [facility] ([id number]) [address], [address] [place] [address] Platelet mean volume (Bld) [Entitic vol] 7.8 fL Normal 7-12 [facility] Comment on above: Performed By: #### C JOHN, BMP, , 2776-07 #### [facility] ([id number]) [address], [address] [place] [address] Platelets (Bld) [#/Vol] 193 10*3/uL Normal 150-450 [facility] Comment on above: Performed By: #### Richa LOPEZ, ALEXYS, , 2776-07 #### [facility] ([id number]) [address], [address] [place] [address] RBC COUNT 4.55 X10E12/L Normal 4.10-5.70 [facility] Comment on above: Performed By: #### Richa LOPEZ, BMP, , 2776-07 #### [facility] ([id number]) [address], [address] [place] [address] WBC (Bld) [#/Vol] 5.9 10*3/uL Normal 4.0-11.0 [facility] Comment on above: Performed By: #### C JOHN, BMP, , 2776-07 #### [facility] ([id number]) [address], [address] [place] [address] MAGNESIUMon 12-02-2023 Magnesium [Mass/Vol] 1.8 mg/dL Normal 1.8-2.6 [facility] Comment on above: Performed By: #### Richa LOPEZ, BMP, , 2776-07 #### [facility] ([id number]) [address], [address] [place] [address] PHOSPHORUSon 12-02-2023 Phosphate [Mass/Vol] 3.2 mg/dL Normal 2.4-4.9 [facility] Comment on above: Performed By: #### C BCA, BMP, , 2776-07 #### [facility] ([id number]) [address], [address] [place] [address] BASIC METABOLIC PANLon 11-30 Anion gap [Moles/Vol] 6 mmol/L Normal 5-[address] [facility] Comment on above: Performed By: #### C BCA, BMP, , 2776-07 #### [facility] ([id number]) [address] [place] [address] Calcium [Mass/Vol] 8.2 mg/dL Low 8.5-10.5 [facility] Comment on above: Performed By: #### C BCA, BMP, , 2776-07 #### [facility] ([id number]) [address], [address] [place] [address] Chloride [Moles/Vol] 104 mmol/L Normal 98-109 [facility] Comment on above: Performed By: #### C BCA, BMP, , 2776-07 #### [facility] ([id number]) [address], [address] [place] [address] CO2 [Moles/Vol] 30 mmol/L Normal 22-32 [facility] Comment on above: Performed By: #### C BCA, BMP, , 2776-07 #### [facility] ([id number]) [address], [address] [place] [address] Creatinine [Mass/Vol] 0.90 mg/dL Normal 0.60-1.[address] [facility] Comment on above: Result Comment: METH OD TRACEABLE TO IDMS STANDARD Performed By: #### C JOHN, BMP, , 2776-07 #### [facility] ([id number]) [address] [address] eGFR (CKD-EPI) NON-RACE DEPENDENT >90 Normal >59 [facility] Comment on above: Result Comment: Reported eGFR is based on the CKD-EPI 2020 equation that does not use a race coefficient. Performed By: #### C JOHN, BMP, , 2776-07 #### [facility] ([id number]) [address], [facility] [address] [place] [address] Glucose [Mass/Vol] 88 mg/dL Normal 65-99 [facility] Comment on above: Performed By: #### C JOHN, BMP, , 2776-07 #### [facility] ([id number]) [address] [address] Potassium [Moles/Vol] 3.6 mmol/L Normal 3.5-5.[address] [facility] Comment on above: Performed By: #### C JOHN, BMP, , 2776-07 #### [facility] ([id number]) [address] [address] Sodium [Moles/Vol] 140 mmol/L Normal 134-146 [facility] Comment on above: Performed By: #### C JOHN, BMP, , 2776-07 #### [facility] ([id number]) [address] [address] Urea nitrogen [Mass/Vol] 10 mg/dL Normal 5-23 [facility] Comment on above: Performed By: #### C BCA, BMP, , 2776-07 #### [facility] ([id number]) [address] [address] CBC AND AUTO DIFFon 05-19-20 24 ABSOLUTE BASOPHIL 0.0 X10E9/L Normal 0.0-0.2 [facility] Comment on above: Performed By: #### C JOHN, BMP, , 2776-07 #### [facility] ([id number]) [address], [address] [place] [address] ABSOLUTE NEUTROPHIL 4.2 X10E9/L Normal 1.5-6.6 [facility] Comment on above: Performed By: #### C BCA, BMP, , 2776-07 #### [facility] ([id number]) [address], [address] [place] [address] Basophils/100 WBC (Bld) 0.5 % Normal [facility] Comment on above: Performed By: #### C JOHN, BMP, , 2776-07 #### [facility] ([id number]) [address], [address] [place] [address] Eosinophils (Bld) [#/Vol] 0.2 10*3/uL Normal 0.0-0.4 [facility] Comment on above: Performed By: #### C JOHN, BMP, , 2776-07 #### [facility] ([id number]) [address], [address] [place] [address] Eosinophils/100 WBC (Bld) 2.8 % Normal [facility] Comment on above: Performed By: #### C BCA, BMP, , 2776-07 #### [facility] ([id number]) [address], [address] [place] [address] Erythrocyte distribution width (RBC) [Ratio] 12.9 % Normal 11.5-15.0 [facility] Comment on above: Performed By: #### C JOHN, BMP, , 2776-07 #### [facility] ([id number]) [address] [place] [address] Hematocrit (Bld) [Volume fraction] 43.1 % Normal 39-49 [facility] Comment on above: Performed By: #### C JOHN, BMP, , 2776-07 #### [facility] ([id number]) [address], [address] [place] [address] Hemoglobin (Bld) [Mass/Vol] 14.9 g/dL Normal 13.0-17.0 [facility] Comment on above: Performed By: #### C JOHN, BMP, , 2776-07 #### [facility] ([id number]) [address], [facility] [address] [place] [address] Lymphocytes (Bld) [#/Vol] 1.5 10*3/uL Normal 1.0-3.5 [facility] Comment on above: Performed By: #### Richa LOPEZ, BMP, , 2776-07 #### [facility] ([id number]) [address], [facility] [address] [place] [address] Lymphocytes/100 WBC (Bld) 23.7 % Normal [facility] Comment on above: Performed By: #### C BCA, BMP, , 2776-07 #### [facility] ([id number]) [address], [address] [place] [address] MCH (RBC) [Entitic mass] 30.8 pg Normal 27-34 [facility] Comment on above: Performed By: #### C BCA, BMP, , 2776-07 #### [facility] ([id number]) [address], [address] [place] [address] MCHC (RBC) [Mass/Vol] 34.5 g/dL Normal 32-[address] [facility] Comment on above: Performed By: #### C BCA, BMP, , 2776-07 #### [facility] ([id number]) [address], [address] [place] [address] MCV (RBC) [Entitic vol] 89 fL Normal 80-100 [facility] Comment on above: Performed By: #### C JOHN, BMP, , 2776-07 #### [facility] ([id number]) [address], [address] [place] [address] Monocytes (Bld) [#/Vol] 0.5 10*3/uL Normal 0-0.9 [facility] Comment on above: Performed By: #### C JOHN, BMP, , 2776-07 #### [facility] ([id number]) [address], [address] [place] [address] Monocytes/100 WBC (Bld) 8.0 % Normal [facility] Comment on above: Performed By: #### Richa BCA, BMP, , 2776-07 #### [facility] ([id number]) [address], [address] [place] [address] Neutrophils/100 WBC (Bld) 65.0 % Normal [facility] Comment on above: Performed By: #### C BCA, BMP, , 2776-07 #### [facility] ([id number]) [address], [address] [place] [address] Platelet mean volume (Bld) [Entitic vol] 7.8 fL Normal 7-12 [facility] Comment on above: Performed By: #### C BCA, BMP, , 2776-07 #### [facility] ([id number]) [address], [address] [place] [address] Platelets (Bld) [#/Vol] 193 10*3/uL Normal 150-450 [facility] Comment on above: Performed By: #### C BCA, BMP, , 2776-07 #### [facility] ([id number]) [address], [address] [place] [address] RBC COUNT 4.83 X10E12/L Normal 4.10-5.70 [facility] Comment on above: Performed By: #### C ALEXYS LOPEZ, 28[address]-7, 2777-1 #### [facility] ([id number]) [address], [address] [place] [address] WBC (Bld) [#/Vol] 6.4 10*3/uL Normal 4.0-11.0 [facility] Comment on above: Performed By: #### C JOHN, ALEXYS, 30603-0, 2777-1 #### [facility] ([id number]) [address], [address] [place] [address] Complete Blood Count Auto Di ffon 12-01-2023 Basophils (Bld) [#/Vol] 0.0 10*3/uL Normal 0.0-0.2 [facility] Comment on above: Result Comment: PERF ORMED BY: [place] [address] PATHOLOGIST LABORER [employer]UMIN[employer] HIREN KAPLAN M.D. Performed By: #### C BC, CMP #### [address] Basophils/100 WBC (Bld) 0.6 % Normal . Bear covarrubias [facility] Comment on above: Performed By: #### C BC, CMP #### [place] [address] [place] Eosinophils (Bld) [#/Vol] 0.2 10*3/uL Normal 0.0-0.45 [facility] Comment on above: Performed By: #### C BC, CMP #### [place] [address] [place] Eosinophils/100 WBC (Bld) 3.0 % Normal . [facility] Comment on above: Performed By: #### C BC, CMP #### [address] Erythrocyte distribution width (RBC) [Ratio] 12.9 % Normal 12.0-14.8 [facility] Comment on above: Performed By: #### C BC, CMP #### [address] Hematocrit (Bld) [Volume fraction] 43.0 % Normal 38.8-50.0 [facility] Comment on above: Performed By: #### C BC, CMP #### [address] Hemoglobin (Bld) [Mass/Vol] 14.8 g/dL Normal 13.0-17.0 [facility] Comment on above: Performed By: #### C BC, CMP #### [address] Lymphocytes (Bld) [#/Vol] 1.8 10*3/uL Normal 1.00-4.8 [facility] Comment on above: Performed By: #### C BC, CMP #### [address] Lymphocytes/100 WBC (Bld) 26.4 % Normal . [facility] Comment on above: Performed By: #### C BC, CMP #### [address] MCH (RBC) [Entitic mass] 30.8 pg Normal 27.5-35.2 [facility] Comment on above: Performed By: #### C BC, CMP #### [address] MCV (RBC) [Entitic vol] 89.5 fL Normal 83.5-101 [facility] Comment on above: Performed By: #### C BC, CMP #### [address] Mean Corpuscular HGB Conc 34.4 g/dL Normal 32.5-35.6 [facility] Comment on above: Performed By: #### C BC, CMP #### [address] Monocytes (Bld) [#/Vol] 0.6 10*3/uL Normal 0.0-0.8 [facility] Comment on above: Performed By: #### C BC, CMP #### [address] Monocytes/100 WBC (Bld) 18.12 % Normal 0.00-20.00 [facility] Comment on above: Performed By: #### C BC, CMP #### [address] Monocytes/100 WBC (Bld) 8.8 % Normal . [facility] Comment on above: Performed By: #### C BC, CMP #### [address] Neutrophils (Bld) [#/Vol] 4.1 10*3/uL Normal 1.8-7.7 [facility] Comment on above: Performed By: #### C BC, CMP #### [address] Neutrophils/100 WBC (Bld) 61.2 % Normal . [facility] Comment on above: Performed By: #### C BC, CMP #### [address] NRBC% 0.1 /100{WBC} Normal 0-0.5 [facility] Comment on above: Performed By: #### C BC, CMP #### [address] Platelet mean volume (Bld) [Entitic vol] 7.8 fL Normal 6.6-10.1 [facility] Comment on above: Performed By: #### C BC, CMP #### [place] [address] [place] Platelets (Bld) [#/Vol] 229 10*3/uL Normal 150-450 [facility] Comment on above: Performed By: #### C BC, CMP #### [place] [address] [place] RBC (Bld) [#/Vol] 4.80 10*6/uL Normal 3.90-5.60 [facility] Comment on above: Performed By: #### C BC, CMP #### [address] WBC (Bld) [#/Vol] 6.7 10*3/uL Normal 4.1-10.5 [facility] Comment on above: Performed By: #### C BC, CMP #### [address] Comprehensive Metabolic Pane demetrius 12-01-2023 Albumin [Mass/Vol] 3.7 g/dL Normal 3.5-5.7 [facility] Comment on above: Performed By: #### C BC, CMP #### [address] Albumin/Globulin [Mass ratio] 1.4 {ratio} Normal [facility] Comment on above: Performed By: #### C BC, CMP #### [address] ALP [Catalytic activity/Vol] 89 U/L Normal 34-104 [facility] Comment on above: Performed By: #### C BC, CMP #### [address] ALT [Catalytic activity/Vol] 21 U/L Normal 7-52 [facility] Comment on above: Performed By: #### C BC, CMP #### [address] Anion gap [Moles/Vol] 8.7 mmol/L Normal 6.0-15.0 [facility] Comment on above: Performed By: #### C BC, CMP #### [address] AST [Catalytic activity/Vol] 20 U/L Normal 13-39 [facility] Comment on above: Performed By: #### C BC, CMP #### [address] Bilirubin [Mass/Vol] 0.5 mg/dL Normal 0.3-1.0 [facility] Comment on above: Performed By: #### C BC, CMP #### [address] Calcium [Mass/Vol] 8.6 mg/dL Normal 8.6-10.3 [facility] Comment on above: Performed By: #### C BC, CMP #### [facility] [address] [place] [address] [place] Chloride [Moles/Vol] 105 mmol/L Normal 98-107 [facility] Comment on above: Performed By: #### C BC, CMP #### [address] CO2 [Moles/Vol] 26.9 mmol/L Normal 21.0-31.0 [facility] Comment on above: Performed By: #### C BC, CMP #### [address] Creatinine [Mass/Vol] 0.91 mg/dL Normal 0.70-1.30 [facility] Comment on above: Performed By: #### C BC, CMP #### [place] [address] [place] Creatinine Clr Calc Pharmacy 127.55 Normal [facility] Comment on above: Result Comment: PERF ORMED BY: [place] [address] PATHOLOGIST LABORER [employer] HIREN KAPLAN M.D. Performed By: #### C BC, CMP #### [place] [address] [place] GFR/1.73 sq M.predicted MDRD (S/P/Bld) [Vol rate/Area] mL/min/{1.73_m2} Normal [facility] Comment on above: Performed By: #### C BC, CMP #### [address] Globulin (S) [Mass/Vol] 2.6 g/dL Normal [facility] Comment on above: Performed By: #### C BC, CMP #### [address] Glucose [Mass/Vol] 101 mg/dL High 70-100 [facility] Comment on above: Result Comment: [facility] [place] Glucose Reference Range is dependent on time and content of last meal. Glucose of more than 200 mg/dL in a nonstressed, ambulatory subject supports the diagnosis of Diabetes Mellitus. ADA recommended reference range Performed By: #### C BC, CMP #### [address] Potassium [Moles/Vol] 3.6 mmol/L Normal 3.5-5.1 [facility] Comment on above: Performed By: #### C BC, CMP #### [address] Protein [Mass/Vol] 6.3 g/dL Low 6.4-8.9 [facility] Comment on above: Performed By: #### C BC, CMP #### [address] Sodium [Moles/Vol] 137 mmol/L Normal 136-145 [facility] Comment on above: Performed By: #### C BC, CMP #### [address] Urea nitrogen [Mass/Vol] 14 mg/dL Normal 7-25 [facility] Comment on above: Performed By: #### C BC, CMP #### [address] Dipstick and Microscopicon 0 12-01-2023 Appearance (U) Turbid Critically abnormal Clear [facility] Comment on above: Order Comment: Name Collection Type:: Clean-Voided Midstream Performed By: #### A DDONUAPLUSTREMAYNEU #### [address] Bacteria,Urine None Seen Normal None Seen [facility] Comment on above: Order Comment: Name Collection Type:: Clean-Voided Midstream Result Comment: PERF ORMED BY: [place] [address] PATHOLOGIST LABORER [employer] HIREN KAPLAN M.D. Performed By: #### A DDONUAPLUS, CUU #### [place] [address] [place] Bilirubin,Urine Normal Negative [facility] Comment on above: Order Comment: Name Collection Type:: Clean-Voided Midstream Result Comment: Unab le to obtain accurate result due to color interference. Performed By: #### A DDONUAPLUS, CUU #### [address] Color (U) Red Critically abnormal Yellow [facility] Comment on above: Order Comment: Name Collection Type:: Clean-Voided Midstream Performed By: #### A DDONUAPLUS, CUU #### [address] Glucose Ql (U) Normal Normal [facility] Comment on above: Order Comment: Name Collection Type:: Clean-Voided Midstream Result Comment: Unab le to obtain accurate result due to color interference. Performed By: #### A DDONUAPLUS, CUU #### [address] Ketones Ql (U) Normal Negative [facility] Comment on above: Order Comment: Name Collection Type:: Clean-Voided Midstream Result Comment: Unab le to obtain accurate result due to color interference. Performed By: #### A DDONUAPLUS, CUU #### [place] [id number] [place] Leukocyte esterase Test strip Ql (U) Normal Negative [facility] Comment on above: Order Comment: Name Collection Type:: Clean-Voided Midstream Result Comment: Unab le to obtain accurate result due to color interference. Performed By: #### A DDONUAPLUS, CUU #### [place] [address] [place] Nitrite,Urine Normal Negative [facility] Comment on above: Order Comment: Name Collection Type:: Clean-Voided Midstream Result Comment: Unab le to obtain accurate result due to color interference. Performed By: #### A DDONUAPLUS, CUU #### [facility] [address] [place] [address] [place] Occult Blood,Urine Normal Negative [facility] Comment on above: Order Comment: Name Collection Type:: Clean-Voided Midstream Result Comment: Unab le to obtain accurate result due to color interference. Performed By: #### A DDONUAPLUS, CUU #### [place] [address] [place] pH,Urine Normal 5.0-9.0 [facility] Comment on above: Order Comment: Name Collection Type:: Clean-Voided Midstream Result Comment: Unab le to obtain accurate result due to color interference. Performed By: #### A DDONUAPLUS, CUU #### [place] [address] [place] Protein,Urine Normal Negative [facility] Comment on above: Order Comment: Name Collection Type:: Clean-Voided Midstream Result Comment: Unab le to obtain accurate result due to color interference. Performed By: #### A DDONUAPLUS, CUU #### [place] [address] [place] RBC,Urine Innumerable High 0-4 [facility] Comment on above: Order Comment: Name Collection Type:: Clean-Voided Midstream Performed By: #### A DDONUAPLUS, CUU #### [place] [address] [place] Specificy [place],Urine 1.010 Normal 1.001-1.030 [facility] Comment on above: Order Comment: Name Collection Type:: Clean-Voided Midstream Performed By: #### A DDONUAPLUS, CUU #### [place] [address] [place] Squamous Epithelial Cell,Urine None Seen Normal 0-2 [facility] Comment on above: Order Comment: Name Collection Type:: Clean-Voided Midstream Performed By: #### A DDONUAPLUS, CUU #### [place] [address] [place] Urobilinogen,Urine Normal Normal [facility] Comment on above: Order Comment: Name Collection Type:: Clean-Voided Midstream Result Comment: Unab le to obtain accurate result due to color interference. Performed By: #### A DDONUAPLUS, CUU #### [facility] [address] [place] [address] [facility] WBC,Urine 1-2 Normal 0-4 [facility] Comment on above: Order Comment: Name Collection Type:: Clean-Voided Midstream Performed By: #### A DDONUAPLUS, CUU #### [facility] [address] [place] [address] [facility] MAGNESIUMon 12-01-2023 Magnesium [Mass/Vol] 1.9 mg/dL Normal 1.8-2.6 [facility] Comment on above: Performed By: #### C BCA, BMP, 48843-6, 2777-1 #### [facility] ([id number]) [address] [place] [address] PHOSPHORUSon 12-01-2023 Phosphate [Mass/Vol] 3.3 mg/dL Normal 2.4-4.9 [facility] Comment on above: Performed By: #### C BCA, BMP, , 2777-1 #### [facility] ([id number]) [address] [place] [address] Partial Thromboplastin Timeo 12-01-2023 aPTT Coag (Bld) [Time] 31.9 s Normal 25.1-36.5 Th [facility] Comment on above: Order Comment: REDRA W: PRIOR SAMPLE QNS Result Comment: A he matocrit value greater than 55% may lead to inaccurate results in coagulation testing. Patients having hematocrit values >55% require a special collection tube for coagulation studies. Please contact the laboratory at [phone] for redraw instructions. PERFORMED BY: [facility] [address] [place] [address] PATHOLOGIST LABORER BITUMINOUS PAVING HIREN KAPLAN M.D. Performed By: #### P TT, PT #### [address] Prothrombin Time INRon 11-30 INR Coag (PPP) [Relative time] 1.0 {INR} Normal [facility] Comment on above: Order Comment: [...] Performed By: #### P TT, PT #### [address] PT Coag (PPP) [Time] 11.9 s Normal 9.0-12.9 [facility] Comment on above: Order Comment: REDRA W: PRIOR SAMPLE QNS Result Comment: A he matocrit value greater than 55% may lead to inaccurate results in coagulation testing. Patients having hematocrit values >55% require a special collection tube for coagulation studies. Please contact the laboratory at [phone] for redraw instructions. Performed By: #### P TT, PT #### [address] Urine Cultureon 12-01-2023 Bacteria identified Cx Nom (U) No Growth 2 Days PERFORMED BY: [place] [address] PATHOLOGIST LABORER BITUMINOUS PAVING HIREN KAPLAN M.D. Normal [facility] Comment on above: Performed By: #### A DDONUAPLUS, CUU #### [address] NM BONE SCAN WHOLE BODYon NM BONE [...] arthritis in both shoulders and knee joints. 0 Finalized by Saman Diaz MD on 11/22/2023 9:16 PM Normal [facility] Cytologyon 11-13-2023 Cytology Normal [facility] Comment on above: Result Comment: [facility] [address] [place] [address] Cytology Consultation Patient Name:RENO ABREU:1970 (Age: 52)Gender:MTaken:11/13/2023eported:11/15/2023 16:54Physician(s):Lida Suh M.D. ([phone])Copy To: Rec. #:[id number]: #[id number] Final Cytologic Diagnosis Urine: Negative for high-grade urothelial cell carcinoma. nxk/11/15/2023 [facility] [place] [address], License number: [id number].Electronically Signed Out By Álvaro Yanez MD Clinical History Malignant neoplasm of overlapping sites of bladder (CMS-HCC) (C67.8). History of low grade urothelial cancer. Gross Description Received was 50 mL of yellow fluid in preservative labeled as Brady, urine, clean catch midstream . 40 mL used for Cytology. See UroVysion report. Source of Specimen Urine Non KNOCK OUT HAND ThinPrep Fee Code(s): 1; 11228 Reference Lab Test IDon 05-0 UROVYSION FOR BLADDER CANCER SEE COMMENTS 11/21/2023 08:19 AM Normal [facility] Comment on above: Result Comment: NOTE Test [...] specific probe for 9p21 ([employer] [place], [place]). This test has been modified from the safety coordinator's instructions. Its performance characteristics were determined by [facility] in a manner consistent with CLIA requirements. This test has not been cleared or approved by the U.S. Food and Drug Administration. Reason for Referral Evaluate for urothelial carcinoma. Specimen Varies Source Urine, NOS Released By Adrianna Proctor M.D. Test Performed by: [address] [address] Acid Dipper: Bear Mares M.D. Ph.D.; CLIA# [id number] URINE CULTUREon 11-13-2023 Bacteria identified Cx Nom (U) CULTURE RESULTS NO GROWTH AT <1000 CFU/mL Normal [facility] Comment on above: Performed By: #### 6 30-4 #### [facility] ([id number]) [address] [place] [address], [address] [place] [address] Surgical Pathologyon [address] [facility] Comment on above: Result Comment: [facility] [address] [place] [address] Surgical Pathology Consultation Patient Name:RENO ABREU:1970 (Age: 52)Gender:MTaken:10/30/2023eported:11/01/2023hysician(s):Anthony Suh M.D. ([phone])Copy To: Rec. #:[id number]: #[id number] Final Pathologic Diagnosis Bladder, TURB: Non-invasive PAPILLARY UROTHELIAL CARCINOMA, low grade. Muscularis propria is present. No invasion into the lamina propria or muscularis propria identified. Report Electronically Signed Out cjb/11/01/2023vanessa Partida MD Interpretation performed at [facility], [address] [place] [address], License number: [id number]. Clinical History Hematuria, microscopic. Bladder tumor, lateral to the right ureteral orifice. Gross Description Received in formalin labeled BRADY, bladder are 8 mosqueda irregular fragments of soft tissue, ranging from 0.2 to 0.6 cm in greatest dimension. Filtered and submitted in a single cassette. (1, ns, [id number], m6) MG mjg/4AO Specimen(s) Received Bladder tumor lateral to the right ureteral orifice Fee Codes(s): 1; 97120 Prostate specific Ag [Mass/V ol]on 10-17-2023 PROSTATIC SPEC ANT 2.43 ng/mL Normal 0.00-4.00 [facility] Comment on above: Result Comment: The method used for this test is [employer] DXI chemiluminescent immunoassay. Values obtained by different assay methods cannot be used interchangeably. Performed By: #### 2 857-1 #### [facility] ([id number]) [address] [place] [address], [address] [place] [address] URINALYSISon 10-17-2023 Bilirubin Ql (U) Negative Normal NEG [facility] BLOOD/HGB Trace Abnormal NEG [facility] Color (U) YELLOW Normal YELLOW [facility] Glucose Ql (U) Negative Normal NEG [facility] Ketones Ql (U) Negative Normal NEG [facility] Leukocyte esterase Test strip Ql (U) Negative Normal NEG [facility] Nitrite Ql (U) Negative Normal NEG [facility] pH (U) 6.0 [pH] Normal 5.0-8.5 [facility] Protein Ql (U) Trace Abnormal NEG [facility] R.B.CELLS <1 Normal 0-5 [facility] Specific gravity (U) [Rel density] 1.020 Normal 1.003-1.035 [facility] TURBIDITY CLEAR Normal CLEAR [facility] Urobilinogen (U) [Mass/Vol] mg/dL Normal <1.1 [facility] W.B.CELLS 3 /hpf Normal 0-5 [facility] URINE CULTUREon 10-17-2023 Bacteria identified Cx Nom (U) CULTURE RESULTS <10,000 ORGANISMS/ML NORMAL URO GENITAL ANIL Normal [facility] Comment on above: Performed By: #### 6 30-4 #### [facility] ([id number]) [address] [place] [address] [address] [place] [address] CT UROGRAMon 10-01-[address] UROGRAM [...] dose to as low as reasonably achievable 9 Finalized by Mars Alcala MD on 10/01/2023 1:03 PM Normal [facility] Cytologyon 09-04-2023 Cytology Normal [facility] Comment on above: Result Comment: [facility] [address] [place] [address] Cytology Consultation Patient Name:EBER ABREUOB:1970 (Age: 52)Gender:MTaken:4Reported:09/06/2023 18:36Physician(s):Lida Suh M.D. ([phone])Copy To: Rec. #:[id number]: #[id number] Final Cytologic Diagnosis Urine: Negative for high-grade urothelial cell carcinoma. [facility]09/06/2023 Interpretation performed at [employer], [address] [place] [address], License number: [id number].Electronically Signed Out By Brandt Rosas M.D. Clinical History Hematuria, microscopic (R31.29). Gross Description Received was 70 mL of yellow fluid unfixed labeled as Brady, urine . CytoLyt added in lab. Source of Specimen Urine Non KNOCK OUT HAND ThinPrep Fee Code(s): 1; 44578 BOX TEST SENT OUTon 09-19-19 SENT TO REF LAB 09/18/2022 Normal [facility] Comment on above: Performed By: #### B OX #### [facility] [address] [address] [address] Pablo Blanchard Aspartate aminotransferase [ Enzymatic activity/volume] in Serum or PlasmaOrdered By: Hernandez Lares on 09-04-2022 AST [Catalytic activity/Vol] 22 U/L 10-42 [facility] Automated erythrocytes count in urine sediment (number/area)Ordered By: Hernandez Lares on 09-04-2022 RBC Auto (Urine sed) [#/Area] 3-4 [HPF] 0-4 [facility] Automated leukocytes count i n urine sediment (number/area)Ordered By: Hernandez Lares on 09-04-2022 WBC Auto (Urine sed) [#/Area] 3-4 [HPF] 0-4 [facility] Basophils Auto (Bld) [#/Vol] Ordered By: Hernandez Lares on 09-04-2022 Basophils (Bld) [#/Vol] 0.1 10*3/uL 0.0-0.2 [facility] Basophils/100 WBC Auto (Bld) Ordered By: Hernandez Lares on 09-04-2022 Basophils/100 WBC (Bld) 0.7 % . [facility] Bilirubin Test strip Ql (U)O rdered By: Hernandez Lares on 09-04-2022 Bilirubin Ql (U) Negative Negative [facility] Body fluid albumin measureme nt (mass/volume)Ordered By: Hernandez Lares on 09-04-2022 Albumin (Body fld) [Mass/Vol] 3.6 g/dL 3.2-5.5 [facility] COVID CepheidOrdered By: Chapo roseanne Arnaud on 09-04-2022 SARS-CoV-2 (COVID-19) Ab IA Ql Negative Negative [facility] Comment on above: This is a duplicate Cepheid Xpert Xpress CoV-2/Flu/RSV Plus RNA by RT-PCR result to be used for statistical tracking purpose only. SARS-CoV-2 (COVID-19) RNA NANCIE+probe Ql (Unsp spec) [facility] SARS-CoV-2 (COVID-19) RNA NANCIE+probe Ql (Unsp spec) [facility] Color Auto (U)Ordered By: Brandon baljinder Arnaud on 09-04-2022 Color (U) Yellow Yellow [facility] Creatine kinase [Enzymatic a ctivity/volume] in Serum or PlasmaOrdered By: Hernandez Lares on 09-04-2022 CK [Catalytic activity/Vol] 72 U/L [facility] Creatine kinase.MB [Mass/vol ume] in Serum or PlasmaOrdered By: Hernandez Lares on 09-04-2022 CK.MB [Mass/Vol] 0.7 ng/mL 0.6-6.3 [facility] Creatinine and Glomerular fi ltration rate.predicted panel (S/P/Bld)Ordered By: Hernandez Lares on 09-04-2022 Creatinine [Mass/Vol] 1.01 mg/dL 0.64-1.27 [facility] Eosinophils Auto (Bld) [#/Vo l]Ordered By: Hernandez Lares on 09-04-2022 Eosinophils (Bld) [#/Vol] 0.2 10*3/uL 0.0-0.45 [facility] Eosinophils/100 WBC Auto (Bl d)Ordered By: Hernandez Lares on 09-04-2022 Eosinophils/100 WBC (Bld) 2.5 % . [facility] Erythrocyte distribution wid th Auto (RBC) [Ratio]Ordered By: Hernandez Lares on 09-04-2022 Erythrocyte distribution width (RBC) [Ratio] 13.1 % 12.0-14.8 [facility] Estimated glomerular filtrat ion rate (GFR) non- AmericanOrdered By: Hernandez Lares on 09-04-2022 GFR/1.73 sq M.predicted among non-blacks MDRD (S/P/Bld) [Vol rate/Area] > 60 mL/Min [facility] Globulin Calc (S) [Mass/Vol] Ordered By: Hernandez Lares on 09-04-2022 Globulin (S) [Mass/Vol] 2.9 g/dL [facility] Hematocrit Auto (Bld) [Volum e fraction]Ordered By: Hernandez Lares on 09-04-2022 Hematocrit (Bld) [Volume fraction] 45.8 % 38.8-50.0 [facility] Hemoglobin [Mass/volume] in BloodOrdered By: Hernandez Lares on 09-04-2022 Hemoglobin (Bld) [Mass/Vol] 15.6 g/dL 13.0-17.0 [facility] Ketones Auto test strip (U) [Mass/Vol]Ordered By: Hernandez Lares on 09-04-2022 Ketones (U) [Mass/Vol] Trace Negative Fi [facility] - UrinalysisOrder ed By: Hernandez Lares on 09-04-2022 Hyaline casts LM Ql (Urine sed) None seen [LPF] 0-8 [facility] Leukocytes [#/volume] correc pooja for nucleated erythrocytes in Blood by Automated counOrdered By: Hernandez Lares on 09-04-2022 WBC corrected for nucl RBC Auto (Bld) [#/Vol] 8.2 10*3/uL 4.1-10.5 [facility] Lymphocytes Auto (Bld) [#/Vo l]Ordered By: Hernandez Lares on 09-04-2022 Lymphocytes (Bld) [#/Vol] 2.2 10*3/uL 1.00-4.8 [facility] Lymphocytes/100 WBC Auto (Bl d)Ordered By: Hernandez Lares on 09-04-2022 Lymphocytes/100 WBC (Bld) 26.2 % . [facility] MCH Auto (RBC) [Entitic mass ]Ordered By: Hernandez Lares on 09-04-2022 MCH (RBC) [Entitic mass] 30.7 pg 27.5-35.2 [facility] MCHC Auto (RBC) [Mass/Vol]Or dered By: Hernandez Lares on 09-04-2022 MCHC (RBC) [Mass/Vol] 34.1 g/dL 32.5-35.6 [facility] MCV Auto (RBC) [Entitic vol] Ordered By: Hernandez Lares on 09-04-2022 MCV (RBC) [Entitic vol] 89.9 fL 83.5-101 [facility] Monocyte distribution width [Entitic volume] in Blood by AutomatedOrdered By: Hernandez Lares on 09-04-2022 Monocyte distribution width Auto (Bld) [Entitic vol] 16.89 % 0.00-20.00 [facility] Monocytes Auto (Bld) [#/Vol] Ordered By: Hernandez Lares on 09-04-2022 Monocytes (Bld) [#/Vol] 0.7 10*3/uL 0.0-0.8 [facility] Monocytes/100 WBC Auto (Bld) Ordered By: Hernandez Lares on 09-04-2022 Monocytes/100 WBC (Bld) 8.1 % . [facility] Neutrophils Auto (Bld) [#/Vo l]Ordered By: Hernandez Lares on 09-04-2022 Neutrophils (Bld) [#/Vol] 5.1 10*3/uL 1.8-7.7 [facility] Neutrophils/100 WBC Auto (Bl d)Ordered By: Hernandez Lares on 09-04-2022 Neutrophils/100 WBC (Bld) 62.5 % . [facility] Nitrite Test strip Ql (U)Ord ered By: Hernandez Lares on 09-04-2022 Nitrite Ql (U) Negative Negative [facility] No Panel InformationOrdered By: Hernandez Lares on 09-04-2022 Estimated GFR () > 60 mL/Min [facility] Comment on above: GFR estimated refere nce range: According to KDOQI guidelines, <60 ml/min/1.73m2 is sufficient to diagnose a patient with chronic kidney disease. Pharmacy Creatinine Clearance (Chem 116.51 [facility] Nucleated erythrocytes [Pres ence] in Blood by Automated countOrdered By: Hernandez Lares on 09-04-2022 Nucleated RBC Auto Ql (Bld) 0.1 /100{WBC} 0-0.5 [facility] Platelet mean volume Auto (B ld) [Entitic vol]Ordered By: Hernandez Lares on 09-04-2022 Platelet mean volume (Bld) [Entitic vol] 7.8 fL 6.6-10.1 [facility] Platelets Auto (Bld) [#/Vol] Ordered By: Hernandez Lares on 09-04-2022 Platelets (Bld) [#/Vol] 224 10*3/uL 150-450 [facility] Protein Auto test strip (U) [Mass/Vol]Ordered By: Hernandez Lares on 09-04-2022 Protein (U) [Mass/Vol] 100 mg/dL Negative [facility] Protein [Mass/volume] in Ser um or PlasmaOrdered By: Hernandez Lares on 09-04-2022 Protein [Mass/Vol] 6.5 g/dL 6.1-7.9 [facility] RBC Auto (Bld) [#/Vol]Ordere d By: Hernandez Lares on 09-04-2022 RBC (Bld) [#/Vol] 5.09 10*6/uL 3.90-5.60 [facility] Serum or plasma alanine storey otransferase measurement without P-5'-P (enzymatic activiOrdered By: Hernandez Lares on 09-04-2022 ALT No additional P-5'-P [Catalytic activity/Vol] 26 U/L 10-60 [facility] Serum or plasma albumin/glob ulin mass ratioOrdered By: Hernandez Lares on 09-04-2022 Albumin/Globulin [Mass ratio] 1.2 {ratio} [facility] Serum or plasma alkaline alexandro sphatase measurement (enzymatic activity/volume)Ordered By: Hernandez Lares on 09-04-2022 ALP [Catalytic activity/Vol] 85 U/L 32-92 [facility] Serum or plasma anion gap de terminationOrdered By: Hernandez Lares on 09-04-2022 Anion gap [Moles/Vol] 15.6 mmol/L 6.0-15.0 [facility] Serum or plasma calcium angie urement (mass/volume)Ordered By: Hernandez Lares on 09-04-2022 Calcium [Mass/Vol] 8.8 mg/dL 8.2-10.2 [facility] Serum or plasma chloride rocio surement (moles/volume)Ordered By: Hernandez Lares on 09-04-2022 Chloride [Moles/Vol] 101 mmol/L 95-114 [facility] Serum or plasma creatine kin ase MB (CKMB)/total creatine kinase (CK) ratio by calculaOrdered By: Hernandez Lares on 09-04-2022 CK.MB Calc [Catalytic fraction] 0.9 % 0.00-2.50 [facility] Serum or plasma glucose angie urement (mass/volume)Ordered By: Hernandez Lares on 09-04-2022 Glucose [Mass/Vol] 99 mg/dL 70-100 [facility] Comment on above: ADA recommended refe rence rangeRandom Glucose Reference Range is dependent on time and content of last meal. Glucose of more than 200 mg/dL in a nonstressed, ambulatory subject supports the diagnosis of Diabetes Mellitus. Serum or plasma potassium me asurement (moles/volume)Ordered By: Hernandez Lares on 09-04-2022 Potassium [Moles/Vol] 4.0 mmol/L 3.5-5.1 [facility] Serum or plasma sodium measu rement (moles/volume)Ordered By: Hernandez Lares on 09-04-2022 Sodium [Moles/Vol] 138 mmol/L 136-146 [facility] Serum or plasma total biliru bin measurement (mass/volume)Ordered By: Hernandez Lares on 09-04-2022 Bilirubin [Mass/Vol] 0.6 mg/dL 0.3-1.2 [facility] Serum or plasma total carbon dioxide measurement (moles/volume)Ordered By: Hernandez Lares on 09-04-2022 CO2 [Moles/Vol] 25.4 mmol/L 22.0-30.0 [facility] Serum or plasma urea nitroge n measurement (mass/volume)Ordered By: Hernandez Lares on 09-04-2022 Urea nitrogen [Mass/Vol] 13 mg/dL 04-06 [facility] Specific gravity Auto test s trip (U) [Rel density]Ordered By: Hernandez Lares on 09-04-2022 Specific gravity (U) [Rel density] 1.027 1.001-1.030 [facility] Spermatozoa detection in uri ne sediment by light microscopyOrdered By: Hernandez Lares on 09-04-2022 Spermatozoa LM Ql (Urine sed) 3-4 [HPF] 0-2 [facility] Squamous epithelial cells de tection in urine sediment by light microscopyOrdered By: Hernandez Lares on 09-04-2022 Epithelial cells.squamous LM Ql (Urine sed) None seen [HPF] 0-2 [facility] Troponin I.cardiac [Mass/vol ume] in Serum or Plasma by High sensitivity methodOrdered By: Hernandez Lares on 09-04-2022 Troponin I.cardiac High sensitivity method [Mass/Vol] < 3 pg/mL 0-20 [facility] Urine bacteria detection by automated methodOrdered By: Hernandez Lares on 09-04-2022 Bacteria Auto Ql (U) None seen None Seen [facility] Urine clarity by refractomet ry automatedOrdered By: Hernandez Lares on 09-04-2022 Clarity Refractometry automated (U) Clear Clear [facility] Urine glucose measurement by automated test strip (mass/volume)Ordered By: Hernandez Lares on 09-04-2022 Glucose Auto test strip (U) [Mass/Vol] Normal mg/dL Normal [facility] Urine hemoglobin detection b y automated test stripOrdered By: Hernandez Lares on 09-04-2022 Hemoglobin Auto test strip Ql (U) Negative Negative [facility] Urine leukocyte esterase det ection by automated test stripOrdered By: Hernandez Lares on 09-04-2022 Leukocyte esterase Auto test strip Ql (U) Negative Negative [facility] Urobilinogen Auto test strip (U) [Mass/Vol]Ordered By: Hernandez Lares on 09-04-2022 Urobilinogen (U) [Mass/Vol] Normal mg/dL Normal [facility] WBC Auto (Bld) [#/Vol]Ordere d By: Hernandez Lares on 09-04-2022 WBC (Bld) [#/Vol] 8.2 10*3/uL 4.1-10.5 [facility] pH Auto test strip (U)Ordere d By: Hernandez Lares on 09-04-2022 pH (U) 6.0 [pH] 5.0-9.0 [facility] CBC AUTO DIFFon 03-08-2022 BASO # 0.0 103/ul Normal 0.0-0.1 [facility] Comment on above: Performed By: #### C BC #### [facility] [address] [place] [address] Dr. Pablo Blanchard Basophils/100 WBC (Bld) 0.4 % Normal 0.2-2.0 [facility] Comment on above: Performed By: #### C BC #### [facility] [address] [place] [address] Dr. Pablo Blanchard EO # 0.2 103/ul Normal 0.0-0.7 [facility] Comment on above: Performed By: #### C BC #### [facility] [address] [place] [address] Dr. Pablo Blanchard Eosinophils/100 WBC (Bld) 2.5 % Normal 0.9-7.0 [facility] Comment on above: Performed By: #### C BC #### [facility] [address] [place] [address] Dr. Pablo Blanchard Erythrocyte distribution width (RBC) [Ratio] 12.2 % Normal 11.0-15.0 [facility] Comment on above: Performed By: #### C BC #### [facility] [address] [place] [address] Dr. Pablo Blanchard Hematocrit (Bld) [Volume fraction] 49.2 % Normal 42.0-54.0 [facility] Comment on above: Performed By: #### C BC #### [facility] [address] [place] [address] Dr. Pablo Blanchard Hemoglobin (Bld) [Mass/Vol] 16.1 g/dL Normal 14.0-18.0 [facility] Comment on above: Performed By: #### C BC #### [facility] [address] [place] [address] Dr. Pablo Blanchard IG # 0.03 10e3/ul Normal 0.00-0.03 [facility] Comment on above: Performed By: #### C BC #### [facility] [address] [place] [address] Dr. Pablo Blanchard IG % 0.4 % Normal 0.0-0.5 [facility] Comment on above: Performed By: #### C BC #### [facility] [address] [address] [address] Pablo Blanchard LYMPH # 1.5 103/ul Normal 1.2-3.8 [facility] Comment on above: Performed By: #### C BC #### [facility] [address] [address] [address] Pablo Blanchard Lymphocytes/100 WBC (Bld) 20.1 % Critically low 20.5-60.0 [facility] Comment on above: Performed By: #### C BC #### [facility] [address] [place] [address] Dr. Pablo Blanchard MANUAL DIFF REQ NO Normal [facility] Comment on above: Performed By: #### C BC #### [facility] [address] [place] [address] Dr. Pablo Blanchard MCH (RBC) [Entitic mass] 30.4 pg Normal 25.9-34.0 [facility] Comment on above: Performed By: #### C BC #### [facility] [address] [place] [address] Dr. Pablo Blanchard MCHC (RBC) [Mass/Vol] 32.7 g/dL Normal 29.9-35.2 [facility] Comment on above: Performed By: #### C BC #### [facility] [address] [place] [address] Dr. Pablo Blanchard MCV (RBC) [Entitic vol] 92.8 fL Normal 80.0-94.0 [facility] Comment on above: Performed By: #### C BC #### [facility] [address] [place] [address] Dr. Pablo Blanchard MONO # 0.6 103/ul Normal 0.3-0.8 [facility] Comment on above: Performed By: #### C BC #### [facility] [address] [place] [address] Dr. Pablo Blanchard Monocytes/100 WBC (Bld) 8.1 % Normal 1.7-12.0 [facility] Comment on above: Performed By: #### C BC #### [facility] [address] [address] [address] Pablo Blanchard NEUT # 5.1 103/ul Normal 1.4-6.5 [facility] Comment on above: Performed By: #### C BC #### [facility] [address] [address] [address] Pablo Blanchard Neutrophils/100 WBC (Bld) 68.5 % Normal 43.0-75.0 [facility] Comment on above: Performed By: #### C BC #### [facility] [address] [address] [address] Pablo Blanchard Platelet mean volume (Bld) [Entitic vol] 9.2 fL Critically low 9.5-13.5 [facility] Comment on above: Performed By: #### C BC #### [facility] [address] [address] [address] Pablo Blanchard PLT 231 103/ul Normal 150-450 [facility] Comment on above: Performed By: #### C BC #### [facility] [address] [address] [address] Pablo Blanchard RBC 5.30 106/ul Normal 4.70-6.10 [facility] Comment on above: Performed By: #### C BC #### [facility] [address] [address] [address] Pablo Blanchard WBC 7.5 103/ul Normal 4.0-11.0 [facility] Comment on above: Performed By: #### C BC #### [facility] [address] [address] [address] Pablo Blanchard GLYCOHEMOGLOBIN A1Con 2021 ADA RECOMMENDATION SEE BELOW Normal [facility] Comment on above: Result Comment: ADA RECOMMENDED LIMIT 4.0 - 6.0 ADA THERAPEUTIC TARGET < 7.0 ACTION SUGGESTED > 7.0 Performed By: #### A 1C #### [facility] [address] [place] [address] Dr. Pablo Blanchard Glucose [Mass/Vol] 97 mg/dL Normal [facility] Comment on above: Performed By: #### A 1C #### [facility] [address] [address] [address] Pablo Blanchard HbA1c (Bld) [Mass fraction] 5.0 % Normal 4.5-6.2 [facility] Comment on above: Performed By: #### A 1C #### [facility] [address] [address] [address] Pablo Blanchard LIPID PROFILEon 03-08-2022 CHOL-HDL RATIO NORM SEE BELOW Normal [facility] Comment on above: Result Comment: 3.3 - 4.4 LOW RISK 4.4 - 7.1 AVERAGE RISK 7.1 - 11.0 MODERATE RISK >11.0 HIGH RISK Performed By: #### L IPID, CMP #### [facility] [address] [address] [address] Pablo Blanchard Cholesterol [Mass/Vol] 205 mg/dL Critically high <=200 [facility] Comment on above: Performed By: #### L IPID, CMP #### [facility] [address] [address] [address] Pablo Blanchard Cholesterol in HDL [Mass/Vol] 40 mg/dL Normal 40-60 [facility] Comment on above: Performed By: #### L IPID, CMP #### [facility] [address] [address] [address] Pablo Blanchard Cholesterol in LDL [Mass/Vol] 150.6 mg/dL Normal [facility] Comment on above: Performed By: #### L IPID, CMP #### [facility] [address] [address] [address] Pablo Blanchard Cholesterol.total/Choles terol in HDL [Mass ratio] 5.1 {ratio} Normal [facility] Comment on above: Performed By: #### L IPID, CMP #### [facility] [address] [address] [address] Pablo Blanchard HDL NORMAL > or = 60 mg/dl - LOW CARDIOVASCULAR RISK <40 mg/dl - HIGH CARDIOVASCULAR RISK Normal [facility] Comment on above: Performed By: #### L IPID, CMP #### [facility] [address] [place] [address] Dr. Pablo Blanchard LDL CALC NORMAL SEE BELOW Normal [facility] Comment on above: Result Comment: <100 mg/dl OPTIMAL 100 - 129 mg/dl NEAR OR ABOVE OPTIMAL 130 - 159 mg/dl BORDERLINE HIGH 160 - 189 mg/dl HIGH >190 mg/dl VERY HIGH Performed By: #### L IPID, CMP #### [facility] [address] [place] [address] Dr. Pablo Blanchard Triglyceride [Mass/Vol] 72 mg/dL Normal <=150 [facility] Comment on above: Performed By: #### L IPID, CMP #### [facility] [address] [place] [address] Dr. Pablo Blanchard VLDL CALC 14.4 mg/dL Normal [facility] Comment on above: Performed By: #### L IPID, CMP #### [facility] [address] [place] [address] Dr. Pablo Blanchard PROF 14(COMP METB)on 022 Albumin [Mass/Vol] 3.3 g/dL Critically low 3.4-5.0 [facility] Comment on above: Performed By: #### L IPID, CMP #### [facility] [address] [place] [address] Dr. Pablo Blanchard Albumin/Globulin [Mass ratio] 1.0 {ratio} Normal [facility] Comment on above: Performed By: #### L IPID, CMP #### [facility] [address] [place] [address] Dr. Pablo Blanchard ALP [Catalytic activity/Vol] 98 U/L Normal 46-116 [facility] Comment on above: Performed By: #### L IPID, CMP #### [facility] [address] [place] [address] Dr. Pablo Blanchard ALT [Catalytic activity/Vol] 33 U/L Normal 16-63 [facility] Comment on above: Performed By: #### L IPID, CMP #### [facility] [address] [place] [address] Dr. Pablo Blanchard Anion gap [Moles/Vol] 9.4 mmol/L Normal [facility] Comment on above: Performed By: #### L IPID, CMP #### [facility] [address] [place] [address] Dr. Pablo Blanchard AST [Catalytic activity/Vol] 16 U/L Normal 15-37 [facility] Comment on above: Performed By: #### L IPID, CMP #### [facility] [address] [place] [address] Dr. Pablo Blanchard Bilirubin [Mass/Vol] 0.7 mg/dL Normal 0.2-1.0 [facility] Comment on above: Performed By: #### L IPID, CMP #### [facility] [address] [place] [address] Dr. Pablo Blanchard Calcium [Mass/Vol] 8.0 mg/dL Critically low 8.5-10.1 [facility] Comment on above: Performed By: #### L IPID, CMP #### [facility] [address] [place] [address] Dr. Pablo Blanchard Chloride [Moles/Vol] 104 mmol/L Normal 98-107 [facility] Comment on above: Performed By: #### L IPID, CMP #### [facility] [address] [place] [address] Dr. Pablo Blanchard CO2 [Moles/Vol] 30.5 mmol/L Normal 21.0-32.0 [facility] Comment on above: Performed By: #### L IPID, CMP #### [facility] [address] [place] [address] Dr. Pablo Blanchard Creatinine [Mass/Vol] 1.02 mg/dL Normal 0.70-1.30 [facility] Comment on above: Performed By: #### L IPID, CMP #### [facility] [address] [place] [address] Dr. Pablo Blanchard EGFR-AF KYRGYZ >60 Normal >=60 [facility] Comment on above: Performed By: #### L IPID, CMP #### [facility] [address] [place] [address] Dr. Pablo Blanchard EGFR-NON AF KYRGYZ >60 Normal >=60 [facility] Comment on above: Performed By: #### L IPID, CMP #### [facility] [address] [address] [address] Pablo Blanchard Globulin (S) [Mass/Vol] 3.4 g/dL Normal [facility] Comment on above: Performed By: #### L IPID, CMP #### [facility] [address] [place] [address] Dr. Pablo Blanchard Glucose [Mass/Vol] 108 mg/dL Critically high 74-106 [facility] Comment on above: Performed By: #### L IPID, CMP #### [facility] [address] [place] [address] Dr. Pablo Blanchard Potassium [Moles/Vol] 3.9 mmol/L Normal 3.5-5.1 [facility] Comment on above: Performed By: #### L IPID, CMP #### [facility] [address] [place] [address] Dr. Pablo Blanchard Protein [Mass/Vol] 6.7 g/dL Normal 6.4-8.2 [facility] Comment on above: Performed By: #### L IPID, CMP #### [facility] [address] [place] [address] Dr. Pablo Blanchard Sodium [Moles/Vol] 140 mmol/L Normal 136-145 [facility] Comment on above: Performed By: #### L IPID, CMP #### [facility] [address] [place] [address] Dr. Pablo Blanchard Urea nitrogen [Mass/Vol] 11.0 mg/dL Normal 7.0-18.0 [facility] Comment on above: Performed By: #### L IPID, CMP #### [facility] [address] [place] [address] Dr. Pablo Blanchard Urea nitrogen/Creatinine [Mass ratio] 10.8 mg/mg Normal [facility] Comment on above: Performed By: #### L IPID, CMP #### [facility] [address] [place] [address] Dr. Pablo Blanchard UA RANDOM W/MICROSCOPICon BACTERIA NONE SEEN Normal NONE SEEN [facility] Comment on above: Performed By: #### U AMIC #### [facility] [address] [address] [address] Pablo Blanchard Bilirubin Ql (U) Negative Normal NEGATIVE [facility] Comment on above: Performed By: #### U AMIC #### [facility] [address] [address] [address] Pablo Blanchard CAST NONE SEEN Normal NONE SEEN [facility] Comment on above: Performed By: #### U AMIC #### [facility] [address] [place] [address] Dr. Pablo Blanchard Clarity (U) CLEAR Normal CLEAR [facility] Comment on above: Performed By: #### U AMIC #### [facility] [address] [place] [address] Dr. Pablo Blanchard Color (U) YELLOW Normal YELLOW [facility] Comment on above: Performed By: #### U AMIC #### [facility] [address] [place] [address] Dr. Pablo Blanchard Crystals LM Nom (Urine sed) NONE SEEN Normal NONE SEEN [facility] Comment on above: Performed By: #### U AMIC #### [facility] [address] [place] [address] Dr. Pablo Blanchard Epithelial cells LM Ql (Urine sed) FEW Abnormal NONE SEEN /RARE [facility] Comment on above: Performed By: #### U AMIC #### [facility] [address] [place] [address] Dr. Pablo Blanchard Glucose Ql (U) Negative Normal NEGATIVE [facility] Comment on above: Performed By: #### U AMIC #### [facility] [address] [place] [address] Dr. Pablo Blanchard Hemoglobin Ql (U) Negative Normal NEGATIVE [facility] Comment on above: Performed By: #### U AMIC #### [facility] [address] [place] [address] Dr. Pablo Blanchard Ketones Ql (U) Negative Normal NEGATIVE [facility] Comment on above: Performed By: #### U AMIC #### [facility] [address] [address] [address] Pablo Blanchard LEUKOCYTES Negative Normal NEGATIVE [facility] Comment on above: Performed By: #### U AMIC #### [facility] [address] [address] [address] Pablo Blanchard MUCOUS NONE SEEN Normal NONE SEEN [facility] Comment on above: Performed By: #### U AMIC #### [facility] [address] [address] [address] Pablo Blanchard Nitrite Ql (U) Negative Normal NEGATIVE [facility] Comment on above: Performed By: #### U AMIC #### [facility] [address] [place] [address] Dr. Pablo Blanchard pH (U) 6.0 [pH] Normal 5-9 [facility] Comment on above: Performed By: #### U AMIC #### [facility] [address] [place] [address] Dr. Pablo Blanchard RBC 0-2 Normal 0-2 [facility] Comment on above: Performed By: #### U AMIC #### [facility] [address] [place] [address] Dr. Pablo Blanchard SPEC GRAVITY >=1.030 Abnormal 1.005-<=1.02 5 [facility] Comment on above: Performed By: #### U AMIC #### [facility] [address] [address] [address] Pablo Blanchard UA PROTEIN Negative Normal NEGATIVE/ TRACE [facility] Comment on above: Performed By: #### U AMIC #### [facility] [address] [address] [address] Pablo Blanchard Urobilinogen Qn (U) 1.0 {Kuldeep'U}/dL Normal 0.2 - 1. 0 [facility] Comment on above: Performed By: #### U AMIC #### [facility] [address] [place] [address] Dr. Pablo Blanchard WBC NONE SEEN Normal NONE SEEN [facility] Comment on above: Performed By: #### U AMIC #### [facility] [address] [place], [place] [address] Dr. Pablo Blanchard Covid-19 PCR ([facility])on 10-14 SARS-CoV-2 (COVID-19) RNA NANCIE+probe Ql (Unsp spec) Not detected Normal NOT DETECTED [facility] Comment on above: Result Comment: This test is not yet approved or cleared by the [place] FDA. When there are no FDA-approved or cleared tests available, and other criteria are met, FDA can make tests available under an emergency access mechanism called an Emergency Use Authorization (EUA). The EUA for this test is supported by the Embedded Linux Engineer of Health and Human Service's (HHS's) declaration [...] SARS-CoV-2. Performed By: #### C VDTB #### [facility] [address] [place], [place] [address] Dr. Pablo Blanchard CKon 02-04-2018 Creatine kinase (CK) 57 Int._Unit/L Normal 14-261 [facility] Comment on above: Performed By: #### 2 [id number], [id number] ####[facility] [address] [place] [address] CKMBon 02-04-2018 CREATINE KINASE.MB:CCNC:PT:SER/PL :QN:EIA 0.5 ng/mL Normal 0.3-4.9 [facility] Comment on above: Performed By: #### 2 517806, [id number] ####[facility] [address] [place] [address] CREATINE KINASE.MB:CCNC:PT:SER/PL :QN:EIA 0.8 ng/mL Normal 0.3-4.9 [facility] Comment on above: Performed By: #### 2 [id number], [id number], [id number] ####[facility] [address] [place] [address] CREATINE KINASE.MB:CCNC:PT:SER/PL :QN:EIA 0.7 ng/mL Normal 0.3-4.9 [facility] Comment on above: Performed By: #### 2 551851, [id number], [id number] ####[address] [place] [address] CMPon 02-04-2018 Albumin 1.2 g/dL Normal 1.1-2.2 [facility] Comment on above: Performed By: #### 2 343705, [id number] ####[address] [address] Albumin 3.6 g/dL Normal 3.3-5.0 [facility] Comment on above: Performed By: #### 2 782882, [id number] ####[facility] [address] [place] [address] Alkaline phosphatase (ALP) 71 Int._Unit/L Normal 21-98 [facility] Comment on above: Performed By: #### 2 536628, [id number] ####[facility] [address] [place] [address] ALT Without P-5'-P enzyme act/vol 29 Int._Unit/L Normal 6-46 [facility] Comment on above: Performed By: #### 2 071309, [id number] ####[facility] [address] [place] [address] Aspartate aminotransferase (AST) 29 Int._Unit/L Normal 5-[address] [facility] Comment on above: Performed By: #### 2 631127, [id number] ####[facility] [address] [place] [address] Bilirubin (total) 0.5 mg/dL Normal 0.0-1.1 [facility] Comment on above: Performed By: #### 2 084748, [id number] ####[facility] [address] [place] [address] BUN/Creatinine Ratio 16 No Units Normal 10-20 [facility] Comment on above: Performed By: #### 2 012598, [id number] ####[facility] [address] [place] [address] Creatinine 1.0 mg/dL Normal 0.5-1.3 [facility] Comment on above: Performed By: #### 2 527411, [id number] ####[facility] [address] [place] [address] Globulin 2.9 g/dL Normal 1.4-4.0 [facility] Comment on above: Performed By: #### 2 059623, [id number] ####[facility] [address] [place] [address] Protein 6.5 g/dL Normal 6.0-7.8 [facility] Comment on above: Performed By: #### 2 979465, [id number] ####[facility] [address] [place] [address] Urea nitrogen 16 mg/dL Normal 5-21 [facility] Comment on above: Performed By: #### 2 529343, [id number] ####[facility] [address] [place] [address] Anion gap 14 mmol/L Normal 6-16 [facility] Comment on above: Performed By: #### 2 585468, [id number] ####[facility] [address] [place] [address] Calcium 8.8 mg/dL Low 8.9-11.1 [facility] Comment on above: Performed By: #### 2 586448, [id number] ####[facility] [address] [place] [address] Chloride 106 mmol/L Normal 101-111 [facility] Comment on above: Performed By: #### 2 569917, [id number] ####[facility] [address] [place] [address] CO2 23 mmol/L Normal 21-31 [facility] Comment on above: Performed By: #### 2 762488, [id number] ####[facility] [address] [place] [address] Glucose mass conc 86 mg/dL Normal 55-199 [facility] Comment on above: Result Comment: If t his glucose result represents a fasting glucose, interpretation should refer to the following reference range: 55-99 mg/dL Performed By: #### 2 700182, [id number] ####[facility] [address] [place] [address] Potassium molar conc 3.6 mmol/L Normal 3.5-5.3 [facility] Comment on above: Performed By: #### 2 271192, [id number] ####[facility] [address] [place] [address] Sodium 139 mmol/L Normal 135-145 [facility] Comment on above: Performed By: #### 2 934271, [id number] ####[facility] [address] [place] [address] Myoglobinon 02-04-2018 Myoglobin 18 ng/mL Normal <=69 [facility] Comment on above: Performed By: #### 2 465642, 0397911, [id number], 9430415, [id number], [id number] ####[facility] [address] [place] [address] Myoglobin 42 ng/mL Normal <=69 [facility] Comment on above: Performed By: #### 2 807369, 9559921, [id number] ####[facility] [address] [place] [address] Myoglobin 17 ng/mL Normal <=69 [facility] Comment on above: Performed By: #### 2 252491, 9748481, [id number] ####[facility] [address] [place] [address] T4 Totalon 02-04-2018 Thyroxine (T4) 9.1 microgram/dL Normal 4.6-9.1 [facility] Comment on above: Performed By: #### 2 628241, [id number] ####[facility] [address] [place] [address] TSHon 02-04-2018 Thyroid stimulating hormone (TSH) 5.61 mcIU/mL High 0.34-5.60 [facility] Comment on above: Performed By: #### 2 779640, [id number] ####[facility] [address] [place] [address] Troponinon 02-04-2018 Troponin I.cardiac mass conc ng/mL Normal <=0.03 [facility] Comment on above: Result Comment: New Troponin Assay 11/26/13ROC PR Cutoff value > or = 0.03 ng/mL in conjunction with clinical conditions of myocardial infarction.([email or web address]) Performed By: #### 2 929849, 4013259, [id number], 3767401, [id number], [id number] ####[facility] [address] [place] [address] Troponin I.cardiac mass conc ng/mL Normal <=0.03 [facility] Comment on above: Result Comment: New Troponin Assay 11/26/13ROC PR Cutoff value > or = 0.03 ng/mL in conjunction with clinical conditions of myocardial infarction.([email or web address]) Performed By: #### 2 889932, 1007150, [id number] ####[facility] [address] [place] [address] Troponin I.cardiac mass conc ng/mL Normal <=0.03 [facility] Comment on above: Result Comment: New Troponin Assay 11/26/13ROC PR Cutoff value > or = 0.03 ng/mL in conjunction with clinical conditions of myocardial infarction.([email or web address]) Performed By: #### 2 705040, 0976196, [id number] ####[facility] [address] [place] [address] eGFRon 02-04-2018 eGFR (black) mL/min/{1.73_m2} Normal >=59 [facility] Comment on above: Order Comment: Order added by Discern Expert. Result Comment: eGFR is race adjusted. AA=. Performed By: #### 2 883856, [id number] ####[facility] [address] [place] [address] eGFR (non-black) mL/min/{1.73_m2} Normal >=59 [facility] Comment on above: Order Comment: Order added by Discern Expert. Result Comment: Color Laboratory Technician sofi kidney disease could be indicated at eGFR's of less than 60 mL/min/1.73m2. Kidney failure is indicated at less than 15 mL/min/1.73m2. Performed By: #### 2 103055, [id number] ####[facility] [address] [place] [address] Vital Signs Date Time Vital Sign Value Performing Clinician Facility 08-19-2024 16:21-0500 Body height 189.2 cm Lida Suh MD Work Phone: [facility] 08-19-2024 16:21-0500 Body mass index (BMI) [Ratio] 31.67 kg/m2 Lida Suh MD Work Phone: [facility] 08-19-2024 16:21-0500 Body weight 113.4 kg Lida Suh MD Work Phone: [facility] 08-19-2024 16:21-0500 Diastolic blood pressure 75 mm[Hg] Lida Suh MD Work Phone: [facility] 08-19-2024 16:21-0500 Heart rate 75 /min Lida Suh MD Work Phone: [facility] 08-19-2024 16:21-0500 Systolic blood pressure 98 mm[Hg] Lida Suh MD Work Phone: [facility] 07-30-2024 08:21-0500 Body height 190.5 cm Brooklynn Carrasquilloz [employer] WORKER Work Phone: [facility] 07-30-2024 08:21-0500 Body mass index (BMI) [Ratio] 31.8 kg/m2 Brooklynnjune Eagleholz [employer]PER[employer] WORKER Work Phone: [facility] 07-30-2024 08:21-0500 Body temperature 97.81 [degF] Brooklynn Fcoholz [employer]PER[employer] WORKER Work Phone: [facility] 07-30-2024 08:21-0500 Body weight 115.39 kg Brooklynn Eagleholz [employer]PER[employer] WORKER Work Phone: [facility] 07-30-2024 08:21-0500 Diastolic blood pressure 72 mm[Hg] Brooklynn Fcoholz [employer]PER[employer] WORKER Work Phone: [facility] 07-30-2024 08:21-0500 Heart rate 88 /min Brooklynn Fcoholz [employer]PER[employer] WORKER Work Phone: [facility] 07-30-2024 08:21-0500 Respiratory rate 20 /min Brooklynn Fcoholz [employer] WORKER Work Phone: [facility] 07-30-2024 08:21-0500 SaO2% (BldA) [Mass fraction] 93 % Brooklynn Fcoholz [employer]PER[employer] WORKER Work Phone: [facility] 07-30-2024 08:21-0500 Systolic blood pressure 108 mm[Hg] Brooklynn Fcoholz [employer]PER[employer] WORKER Work Phone: [facility] 03-30-2024 08:08-0400 Body height 186.7 cm Brooklynn Fcoholz [employer]PER[employer] WORKER Work Phone: [facility] 03-30-2024 08:08-0400 Body mass index (BMI) [Ratio] 32.82 kg/m2 Brooklynn Fcoholz [employer]PER[employer] WORKER Work Phone: [facility] 03-30-2024 08:08-0400 Body temperature 98.2 [degF] Brooklynn Yeager [employer]PER[employer] WORKER Work Phone: [facility] 03-30-2024 08:08-0400 Body weight 114.4 kg Brooklynn Yeager [employer]PER[employer] WORKER Work Phone: [facility] 03-30-2024 08:08-0400 Diastolic blood pressure 80 mm[Hg] Brooklynn Eagleholz [employer]PER[employer] WORKER Work Phone: [facility] 03-30-2024 08:08-0400 Heart rate 79 /min Brooklynn Yeager [employer] WORKER Work Phone: [facility] 03-30-2024 08:08-0400 Respiratory rate 18 /min Brooklynn Yeager [employer] WORKER Work Phone: [facility] 03-30-2024 08:08-0400 SaO2% (BldA) [Mass fraction] 97 % Brooklynn Yeager [employer]PER[employer] WORKER Work Phone: [facility] 03-30-2024 08:08-0400 Systolic blood pressure 110 mm[Hg] Brooklynn Carrasquillovelia [employer]PER[employer] WORKER Work Phone: [facility] 03-17-2024 10:11-0400 Body height 189.2 cm Pmh 1 [facility] 03-17-2024 10:11-0400 Body mass index (BMI) [Ratio] 31.67 kg/m2 Pmh 1 [facility] 03-17-2024 10:11-0400 Body weight 113.4 kg Pmh 1 [facility] 01-29-2024 16:33-0400 Body height 185.4 cm Lida Suh MD Work Phone: [facility] 01-29-2024 16:33-0400 Body mass index (BMI) [Ratio] 33.64 kg/m2 Lida Suh MD Work Phone: [facility] 01-29-2024 16:33-0400 Body weight 115.67 kg Lida Suh MD Work Phone: [facility] 01-29-2024 16:33-0400 Diastolic blood pressure 68 mm[Hg] Lida Suh MD Work Phone: [facility] 01-29-2024 16:33-0400 Heart rate 73 /min Lida Suh MD Work Phone: [facility] 01-29-2024 16:33-0400 Systolic blood pressure 94 mm[Hg] Lida Suh MD Work Phone: [facility] 11-13-2023 11:37-0400 Body height 188 cm Lida Suh MD Work Phone: [facility] 11-13-2023 11:37-0400 Body mass index (BMI) [Ratio] 31.46 kg/m2 Lida Suh MD Work Phone: [facility] 11-13-2023 11:37-0400 Body weight 111.13 kg Lida Suh MD Work Phone: [facility] 11-13-2023 11:37-0400 Diastolic blood pressure 72 mm[Hg] Lida Suh MD Work Phone: [facility] 11-13-2023 11:37-0400 Heart rate 69 /min Lida Suh MD Work Phone: [facility] 11-13-2023 11:37-0400 Systolic blood pressure 106 mm[Hg] Lida Suh MD Work Phone: [facility] 10-17-2023 09:02-0400 Body height 188 cm Pmh 1 [facility] 10-17-2023 09:02-0400 Body mass index (BMI) [Ratio] 32.1 kg/m2 Pmh 1 [facility] 10-17-2023 09:02-0400 Body weight 113.4 kg Pmh 1 [facility] 09-04-2023 14:11-0500 Body height 188 cm Lida Suh MD Work Phone: [facility] 09-04-2023 14:11-0500 Body mass index (BMI) [Ratio] 31.46 kg/m2 Lida Suh MD Work Phone: [facility] 09-04-2023 14:11-0500 Body weight 111.13 kg Lida Suh MD Work Phone: [facility] 09-04-2023 14:11-0500 Diastolic blood pressure 75 mm[Hg] Lida Suh MD Work Phone: [facility] 09-04-2023 14:11-0500 Heart rate 76 /min Lida Suh MD Work Phone: [facility] 09-04-2023 14:11-0500 Systolic blood pressure 116 mm[Hg] Lida Suh MD Work Phone: [facility] 10-22-2022 15:54-0400 Diastolic blood pressure 46 mm[Hg] Brooklynn Aichholz Work Phone: [facility] 10-22-2022 15:54-0400 Heart rate 69 /min Brooklynn Aichholz Work Phone: [facility] 10-22-2022 15:54-0400 Respiratory rate 16 /min Brooklynn Aichholz Work Phone: [facility] 10-22-2022 15:54-0400 SaO2% (BldA) [Mass fraction] 99 % Brooklynn Aichholz Work Phone: [facility] 10-22-2022 15:54-0400 Systolic blood pressure 97 mm[Hg] Brooklynn Aichholz Work Phone: [facility] 10-22-2022 14:07-0400 Body height 187.96 cm Brooklynn Aichholz Work Phone: [facility] 10-22-2022 14:07-0400 Body temperature 97.2 [degF] Brooklynn Aichholz Work Phone: [facility] 10-22-2022 14:07-0400 Body weight 113.39 kg Brooklynn Aichholz Work Phone: [facility] 09-04-2022 23:07-0500 Heart rate 73 /min Brooklynn Aichholz Work Phone: [facility] 09-04-2022 23:07-0500 Respiratory rate 18 /min Brooklynn Aichholz Work Phone: [facility] 09-04-2022 23:07-0500 SaO2% (BldA) [Mass fraction] 99 % Brooklynn Aichholz Work Phone: [facility] 09-04-2022 22:55-0500 Body temperature 97.7 [degF] Brooklynn Aichholz Work Phone: [facility] 09-04-2022 22:55-0500 Diastolic blood pressure 84 mm[Hg] Brooklynn Aichholz Work Phone: [facility] 09-04-2022 22:55-0500 Systolic blood pressure 123 mm[Hg] Brooklynn Aichholz Work Phone: [facility] 09-04-2022 22:11-0500 Body height 189.23 cm Brooklynn Aichholz Work Phone: [facility] 09-04-2022 22:11-0500 Body weight 117.4 kg Brooklynn Aichholz Work Phone: [facility] Encounters Encounter Date Encounter Type Care Provider Facility Start: 10-05-2024 End: 10-05-2024 ambulatory BROOKLYNN AICHHOLZ Not Available Start: 09-16-2024 End: 09-16-2024 Telephone encounter Lida Suh MD Work Phone: [facility] Start: 09-11-2024 End: 09-14-2024 Clinisync Result Encounter Generic External Data Provider [facility] External Department Unsolicited Start: 09-11-2024 End: 09-14-2024 Clinisync Result Encounter Generic External Data Provider [facility] External Department Unsolicited Start: 08-19-2024 End: 08-19-2024 Office outpatient visit 15 minutes Lida Suh MD Work Phone: [facility] Comment on above: Elevated PSA (Primar y Dx); Malignant neoplasm of overlapping sites of bladder ([facility]) Start: 08-19-2024 End: 08-19-2024 ambulatory LIDA SUH [facility] Start: 08-18-2024 End: 08-18-2024 Clinisync Result Encounter Brooklynn Yeager [employer] Work Phone: [facility] External Department Unsolicited Start: 08-18-2024 End: 08-18-2024 Clinisync Result Encounter Brooklynn Shobha [employer] Work Phone: [facility] External Department Unsolicited Start: 08-18-2024 End: 08-18-2024 Refill Brooklynn Shobha [employer] Work Phone: [facility] Comment on above: Vitamin D deficiency (Primary Dx) Start: 08-14-2024 End: 08-14-2024 Orders Only Brooklynn Yeager [employer] Work Phone: [facility] Comment on above: Hypocalcemia (Primar y Dx); Hyperglycemia Start: 08-13-2024 End: 08-13-2024 Clinisync Result Encounter Brooklynn Yeager [employer] Work Phone: [facility] External Department Unsolicited Start: 08-13-2024 End: 08-13-2024 Clinisync Result Encounter Brooklynn Shobha [employer] Work Phone: [facility] External Department Unsolicited Start: 07-30-2024 End: 07-30-2024 Bamboo flowsheet Brooklynn Yeager [employer] Work Phone: [facility] Start: 07-30-2024 End: 07-30-2024 Bamboo flowsheet Brooklynn Yeager [employer] Work Phone: [facility] Start: 07-30-2024 End: 07-30-2024 Office outpatient visit 25 minutes Brooklynn Yeager [employer] Work Phone: [facility] Comment on above: Bipolar disorder, cu rrent episode mixed, mild (CMS/HCC) (Primary Dx); Malignant neoplasm of overlapping sites of bladder (CMS/HCC); Obesity (BMI 30-39.9); Mixed hyperlipidemia (CMS/HCC); Tobacco user; Bipolar affective disorder, remission status unspecified (CMS/HCC) Start: 07-30-2024 End: 07-30-2024 ambulatory BROOKLYNN FCOHOLZ Not Available Start: 07-20-2024 End: 07-20-2024 Refill Brooklynn Neidaz [employer] Work Phone: [facility] Comment on above: Mixed hyperlipidemia (CMS/HCC); Bipolar affective disorder, remission status unspecified (CMS/HCC) Start: 07-02-2024 End: 07-02-2024 Refill Brooklynn Wandahholz [employer] Work Phone: [facility] Comment on above: COVID (Primary Dx) Start: 06-17-2024 End: 06-17-2024 Telephone encounter Lida Suh MD Work Phone: [facility] Start: 06-17-2024 End: 06-17-2024 Evaluation and management of inpatient LIDA SUH [facility] Start: 06-16-2024 End: 06-16-2024 ambulatory BROOKLYNN YEAGER [facility] Start: 05-22-2024 End: 05-22-2024 Orders Only Lida Suh MD Work Phone: [facility] Comment on above: Malignant neoplasm o f overlapping sites of bladder (CMS-HCC) (Primary Dx) Start: 04-15-2024 End: 04-15-2024 Refill Brooklynn Aichholz [employer] Work Phone: [facility] Comment on above: Mixed hyperlipidemia (CMS/HCC); Bipolar affective disorder, remission status unspecified (CMS/HCC) Start: 03-30-2024 End: 03-30-2024 Bamboo flowsheet Brooklynn Eaglegavin [employer] Work Phone: [facility] Start: 03-30-2024 End: 03-30-2024 Bamboo flowsheet Brooklynn Eaglegavin [employer] Work Phone: [facility] Start: 03-30-2024 End: 03-30-2024 Office outpatient visit 25 minutes Brooklynn Wandajermainegavin [employer] WORK[employer] Work Phone: [facility] Comment on above: Bipolar affective di sorder, remission status unspecified (CMS/HCC) (Primary Dx); Malignant neoplasm of overlapping sites of bladder (CMS/HCC); Tobacco user; Lump of skin; Contusion of scalp, initial encounter; Mixed hyperlipidemia (CMS/HCC) Start: 03-30-2024 End: 03-30-2024 ambulatory BROOKLYNN SHOBHA Not Available Start: 03-18-2024 End: 03-18-2024 Telephone encounter Lida Suh MD Work Phone: [facility] Start: 03-18-2024 End: 03-18-2024 Evaluation and management of inpatient LIDA SUH [facility] Start: 03-17-2024 End: 03-17-2024 ambulatory BROOKLYNN Adi [facility] Start: 03-09-2024 End: 03-09-2024 [facility] Start: 01-29-2024 End: 01-29-2024 Office outpatient visit 15 minutes Lida Suh MD Work Phone: [facility] Comment on above: Urinary incontinence , unspecified type (Primary Dx); Elevated PSA; Malignant neoplasm of overlapping sites of bladder ([facility]-HCC) Start: 01-29-2024 End: 01-29-2024 ambulatory LIDA SUH [facility] Start: 01-21-2024 End: 01-21-2024 Telephone encounter Darcie GARCIA [facility] Start: 12-19-2023 End: 12-19-2023 Orders Only Lida Suh MD Work Phone: [facility] Start: 12-02-2023 End: 12-02-2023 ambulatory BROOKLYNN Joshi [facility] Start: 12-01-2023 End: 12-02-2023 Evaluation and management of inpatient JOSE Agarwal [facility] Start: 12-01-2023 End: 12-01-2023 Emergency department patient [facility] Start: 11-29-2023 End: 11-29-2023 Emergency department patient visit BROOKLYNN Joshi [facility] Start: 11-22-2023 End: 11-22-2023 ambulatory [facility] Start: 11-14-2023 End: 11-14-2023 ambulatory [facility] Start: 11-13-2023 End: 11-13-2023 Telephone encounter Lida Suh MD Work Phone: [facility] Start: 11-13-2023 End: 11-13-2023 Office outpatient visit 25 minutes Lida Suh MD [facility] Comment on above: Malignant neoplasm o f overlapping sites of bladder (CMS-HCC) (Primary Dx); Elevated PSA Start: 11-13-2023 End: 11-13-2023 ambulatory [facility] Start: 11-13-2023 End: 11-13-2023 ambulatory [facility] Start: 11-07-2023 End: 11-13-2023 Orders Only Lida Suh MD Work Phone: [facility] Comment on above: Hematuria, microscop ic (Primary Dx) Start: 10-31-2023 End: 10-31-2023 Telephone encounter [facility]anako Martines [facility] Start: 10-30-2023 End: 10-30-2023 Telephone encounter Lida Suh MD Work Phone: [facility] Start: 10-30-2023 End: 10-30-2023 Evaluation and management of inpatient EFE HENDERSON [facility] Start: 10-30-2023 End: 10-30-2023 Evaluation and management of inpatient [facility] Start: 10-17-2023 End: 10-17-2023 Patient encounter procedure Pmh Pre-Admission Testing 1 [facility] - Pre Admit Start: 10-17-2023 End: 10-17-2023 ambulatory [facility] Start: 09-27-2023 End: 09-27-2023 ambulatory [facility] Start: 09-04-2023 Telephone encounter Lida Suh MD Work Phone: [facility] Start: 09-04-2023 End: 09-04-2023 Office consultation new/estab patient 60 min Lida Suh MD Work Phone: [facility] Comment on above: Elevated PSA (Primar y Dx); Hematuria, microscopic Start: 09-04-2023 End: 09-04-2023 ambulatory [facility] Start: 09-04-2023 End: 09-04-2023 ambulatory [facility] Start: 08-27-2023 Refill Brooklynn Yeager [employer] Work Phone: [facility] Comment on above: Mixed hyperlipidemia (CMS/HCC) (Primary Dx) Start: 08-21-2023 Telephone encounter Brooklynn martinez [employer] Work Phone: [facility] Start: 10-22-2022 End: 10-22-2022 Admission to same day surgery center Brooklynn Yeager Work Phone: [facility] Start: 10-22-2022 End: 10-22-2022 ambulatory Brooklynn Yeager Work Phone: [facility] Work Phone: Start: 10-03-2022 End: 10-03-2022 ambulatory Brooklynn Yeager Work Phone: [facility] Work Phone: Start: 10-03-2022 End: 10-03-2022 Departed Referred Brooklynn Yeager Work Phone: [facility] [place] Work Phone: Start: 09-18-2022 End: 09-19-2022 ambulatory [facility] BROOKLYNN EAGLEHOLZ Facility:[facility] Start: 09-04-2022 End: 09-05-2022 Emergency department patient visit Brooklynn Yeager Work Phone: [facility] Work Phone: Start: 03-08-2022 End: 03-09-2022 ambulatory [facility] BROOKLYNN EAGLEHOLZ Facility:[facility] Start: 11-03-2021 End: 11-03-2021 ambulatory [facility] BROOKLYNNJune EAGLEHOLZ Facility:[facility] Start: 02-04-2018 Patient encounter KINJAL Gresham ity:[facility] Start: 02-03-2018 Patient encounter KINJAL Gresham ity:[facility] Procedures Date Procedure Procedure Detail Performing Clinician Start: 09-11-2024 UPPER RESPIRATORY CULTURE Generic External Data Provider Start: 08-18-2024 MLR HEMOGLOBIN A1C Brooklynn Shobha [employer] Work Phone: Start: 08-13-2024 ALL LIPID PROFILE (FASTING) Brooklynn Wandajermainegavin [employer] WORK[employer] Work Phone: Start: 08-13-2024 ALL THYROID STIM HORMONE Brooklynn Shobha [employer] WORK[employer] Work Phone: Start: 08-13-2024 CCF CMP (CMP) (FOR R [facility] USE) Brooklynn Shobha [employer] WORK[employer] Work Phone: Start: 01-29-2024 MEASURE POST VOID RESIDUAL Lida Suh MD Work Phone: Start: 12-01-2023 Adult depression scr eening assessment Lida Suh MD Work Phone: Start: 11-13-2023 Follow-up visit Follow-up LIDA SUH Start: 10-22-2022 Excision of cyst Brooklynn ruvalcaba Work Phone: Start: 10-03-2022 Colonoscopy Brooklynn martinez [employer] Work Phone: Start: 09-04-2022 Plain X-ray abdomen Tawny Yeager Work Phone: Start: 09-04-2022 SARS-CoV-2, Influenz a & RSV (PCR) Brooklynn Yeager Work Phone: Start: 03-08-2022 PSA screening [employer] [facility] BROOKLYNN YEAGER Comment on above: Performed By: #### [facility] #### [facility] [address] [place] [address] Dr. Pablo Blanchard Plan of Treatment Date Care Activity Detail Author Start: 10-03-2032 Screening for malign ant neoplasm of colon [facility] Start: 08-23-2025 End: 08-23-2025 Patient encounter procedure 08/23/2025 1:45 PM EST Office Visit [facility] [address] [place] [address] [facility] [place] [address] Lida Suh MD [address] [place] [address] [facility] Start: 08-19-2025 Adult BMI Screening Adult BMI Screen ing [facility] Start: 08-19-2025 End: 07-20-2026 Prostatic specific antigen, diagnostic Prostatic specific antigen, diagnostic Lab Routine Elevated PSA Expected: 08/19/2025 (Approximate), Expires: 07/20/2026 [facility] Work Phone: Comment on above: Expected: 08/19/2025 (Approximate), Expires: 07/20/2026 Start: 08-19-2025 Tobacco Screening Tobacco Screening [facility] Start: 06-17-2025 Tobacco Screening Tobacco Screening [facility] Start: 03-18-2025 Tobacco Screening Tobacco Screening [facility] Start: 03-17-2025 Adult BMI Screening Adult BMI Screen ing [facility] Start: 01-28-2025 Adult BMI Screening Adult BMI Screen ing [facility] Start: 01-28-2025 Tobacco Screening Tobacco Screening [facility] Start: 12-01-2024 Adult BMI Screening Adult BMI Screen ing [facility] Start: 11-30-2024 Depression Screening Depression Scre ening [facility] Start: 11-30-2024 Tobacco Screening Tobacco Screening [facility] Start: 11-12-2024 Adult BMI Screening Adult BMI Screen ing [facility] Start: 11-12-2024 Tobacco Screening Tobacco Screening [facility] Start: 10-29-2024 Adult BMI Screening Adult BMI Screen ing [facility] Start: 10-29-2024 Tobacco Screening Tobacco Screening [facility] Start: 10-16-2024 End: 08-18-2025 25-hydroxyvitamin D3 [Mass/volume] in Serum or Plasma Vitamin D 25 hydroxy Lab Routine Vitamin D deficiency Expected: 10/16/2024 (Approximate), Expires: 08/18/2025 [facility] Work Phone: Comment on above: Expected: 10/16/2024 (Approximate), Expires: 08/18/2025 Start: 10-16-2024 Adult BMI Screening Adult BMI Screen ing [facility] Start: 10-16-2024 Tobacco Screening Tobacco Screening [facility] Start: 10-05-2024 End: 10-05-2024 Patient encounter procedure 10/05/2024 8:40 AM EDT Office Visit [facility] [address] [place] [address] Brooklynn Yeager NP [address] [place] [id number] [facility] Start: 09-04-2024 Adult BMI Screening Adult BMI Screen ing [facility] Start: 09-04-2024 Tobacco Screening Tobacco Screening [facility] Start: 08-19-2024 End: 08-19-2024 Patient encounter procedure 08/19/2024 3:45 PM EST Office Visit [facility] [address] [place] [address] [facility] [address] Lida Suh MD [address] [phone] [facility] Start: 08-14-2024 End: 08-14-2025 25-hydroxyvitamin D3 [Mass/volume] in Serum or Plasma Vitamin D 25 hydroxy Lab Routine Hypocalcemia Expected: 08/14/2024 (Approximate), Expires: 08/14/2025 [facility] Work Phone: Comment on above: Expected: 08/14/2024 (Approximate), Expires: 08/14/2025 Start: 08-14-2024 End: 08-14-2025 Hemoglobin A1c/Hemoglobin.total in Blood Hemoglobin A1c Lab Routine Hyperglycemia Expected: 08/14/2024 (Approximate), Expires: 08/14/2025 [facility] Comment on above: Expected: 08/14/2024 (Approximate), Expires: 08/14/2025 Start: 07-30-2024 End: 07-30-2025 CBC W Auto Differential panel - Blood CBC and differential Lab Routine Tobacco user Expected: 07/30/2024 (Approximate), Expires: 07/30/2025 [facility] Comment on above: Expected: 07/30/2024 (Approximate), Expires: 07/30/2025 Start: 07-30-2024 End: 07-30-2025 Comprehensive metabolic 2000 panel - Serum or Plasma Comprehensive metabolic panel Lab Routine Obesity (BMI 30-39.9) Bipolar disorder, current episode mixed, mild (CMS/HCC) Mixed hyperlipidemia (CMS/HCC) Expected: 07/30/2024 (Approximate), Expires: 07/30/2025 [facility] Comment on above: Expected: 07/30/2024 (Approximate), Expires: 07/30/2025 Start: 07-30-2024 End: 07-30-2025 Lipid 1996 panel - Serum or Plasma Lipid panel Lab Routine Mixed hyperlipidemia (CMS/HCC) Expected: 07/30/2024 (Approximate), Expires: 07/30/2025 [facility] Work Phone: Comment on above: Expected: 07/30/2024 (Approximate), Expires: 07/30/2025 Start: 07-30-2024 End: 07-30-2025 Thyrotropin [Units/volume] in Serum or Plasma TSH Lab Routine Bipolar disorder, current episode mixed, mild (CMS/HCC) Expected: 07/30/2024 (Approximate), Expires: 07/30/2025 [facility] Comment on above: Expected: 07/30/2024 (Approximate), Expires: 07/30/2025 Start: 07-30-2024 End: 07-30-2025 Thyroxine (T4) free [Mass/volume] in Serum or Plasma T4, free Lab Routine Bipolar disorder, current episode mixed, mild (CMS/HCC) Expected: 07/30/2024 (Approximate), Expires: 07/30/2025 [facility] Comment on above: Expected: 07/30/2024 (Approximate), Expires: 07/30/2025 Start: 07-30-2024 End: 07-30-2024 Patient encounter procedure [facility] Comment on above: Obesity (BMI 30-39.9 ) (Primary Dx); Malignant neoplasm of overlapping sites of bladder (CMS/HCC); Bipolar disorder, current episode mixed, mild (CMS/HCC); Mixed hyperlipidemia (CMS/HCC); Tobacco user Start: 06-17-2024 End: 06-17-2024 Admission to same day surgery center 06/17/2024 11:30 AM EST - 06/17/2024 12:00 PM EST Surgery [facility] - Surgery [address] [place] [address] Lida Suh MD [address] [place] [id number] CYSTOSCOPY [87514 (CPT )] [facility] - Surgery Comment on above: CYSTOSCOPY [26496 (C PT )] Start: 06-17-2024 End: 06-17-2024 Cystourethroscopy [facility] Start: 06-17-2024 Subsequent hospital visit by physician 06/17/2024 11:30 AM EST Hospital Encounter [facility] - Surgery [address] [place] [address] Lida Suh MD [address] [place] [id number] [facility] Start: 06-16-2024 End: 06-16-2024 ambulatory 06/16/2024 3:40 PM EST Support Visit [facility] - Pre Admit [address] [place] [address] [facility] - Pre Admit Start: 06-08-2024 End: 06-08-2024 Patient encounter procedure 06/08/2024 2:45 PM EST Office Visit [facility] [address] [place] [phone] Lida Suh MD [address] [place] [phone] [facility] Start: 05-20-2024 End: 05-20-2024 Patient encounter procedure 05/20/2024 2:30 PM EST Office Visit [facility] [address] [place] [phone] Lida Suh MD [address] [place] [phone] [facility] Start: 05-11-2024 End: 11-12-2024 Prostatic specific antigen, diagnostic Prostatic specific antigen, diagnostic Lab Routine Elevated PSA Expected: 05/11/2024 (Approximate), Expires: 11/12/2024 [facility] Comment on above: Expected: 05/11/2024 (Approximate), Expires: 11/12/2024 Start: 03-30-2024 End: 03-30-2024 Patient encounter procedure 03/30/2024 9:00 AM EDT Office Visit [facility] [address] [place] [address] Brooklynn Yeager NP [address] [place] [address] Arrived [facility] Comment on above: Arrived Start: 03-18-2024 End: 03-18-2024 Admission to same day surgery center 03/18/2024 8:00 AM EDT - 03/18/2024 8:30 AM EDT Surgery [facility] Surgery [address] [place] [address] Lida Suh MD [address] [place] [id number] CYSTOSCOPY [43044 (CPT )] [facility] Comment on above: CYSTOSCOPY [39478 (C PT )] Start: 03-18-2024 End: 03-18-2024 Cystourethroscopy [facility] Start: 03-18-2024 Subsequent hospital visit by physician 03/18/2024 8:00 AM EDT Hospital Encounter [facility] - Surgery [address] [place] [address] Lida Suh MD [address] [place] [id number] [facility] - Surgery Start: 03-17-2024 End: 03-17-2024 ambulatory 03/17/2024 4:20 PM EDT Support Visit [facility] - [facility] Admit [address] [place] [address] [facility] Pre Admit Start: 03-15-2024 COVID-19 Vaccine ( season) COVID-19 Vaccine () [facility] Start: 03-15-2024 COVID-19 Vaccine ( season) COVID-19 Vaccine () [facility] Start: 03-15-2024 Influenza vaccination Influenza Vacc ine [facility] Start: 02-13-2024 End: 11-12-2024 Cytology Cytology Pathology and Cytology Routine [facility] Expected: 02/13/2024 (Approximate), Expires: 11/12/2024 [facility] Comment on above: Expected: 02/13/2024 (Approximate), Expires: 11/12/2024 Start: 02-13-2024 End: 11-12-2024 Urovysion for bladder Urovysion for bladder Lab Routine Malignant [facility] of overlapping sites of bladder [facility] Expected: 02/13/2024 (Approximate), Expires: 11/12/2024 [facility] Comment on above: Expected: 02/13/2024 (Approximate), Expires: 11/12/2024 Start: 01-29-2024 End: 01-29-2024 Patient encounter procedure 01/29/2024 4:00 PM EDT Office Visit [facility] [address] [place] [phone] Lida Suh MD [address] [place] [phone] [facility] Start: 12-18-2023 End: 12-18-2023 Patient encounter procedure 12/18/2023 12:15 PM EDT Office Visit [facility] [address] [place] [address] [facility] [place] [address] Lida Suh MD [address] [place] [phone] [facility] Start: 11-22-2023 End: 11-22-2023 Patient encounter procedure [facility] - Nuclear MedIcine Start: 11-13-2023 End: 11-12-2024 NM Whole body Bone Views NM bone scan whole body Imaging Routine Malignant neoplasm of overlapping sites of bladder (CMS-HCC) Elevated PSA Expected: 11/13/2023, Expires: 11/12/2024 [facility] Comment on above: Expected: 11/13/2023 , Expires: 11/12/2024 Start: 11-13-2023 End: 11-13-2023 Patient encounter procedure 11/13/2023 11:45 AM EDT Office Visit [facility] [address] [place] [address] [facility] [place] [phone] Lida Suh MD [address] [place] [id number] [facility] Start: 11-04-2023 End: 11-04-2023 Patient encounter procedure [facility] Start: 10-30-2023 End: 10-30-2023 Admission to same day surgery center 10/30/2023 9:30 AM EDT - 10/30/2023 10:30 AM EDT Surgery [facility] - Surgery [address] [place] [phone] Lida Suh MD [address] [place] [id number] CYSTOSCOPY [25070 (CPT )] [facility] Comment on above: CYSTOSCOPY [40132 (C PT )] Start: 10-30-2023 End: 10-30-2023 Cysto bladder w/ureteral catheterization CYSTOSCOPY RETROGRADE PYELOGRAM Hematuria, microscopic 10/30/2023 9:30 AM EDT [facility] Start: 10-30-2023 End: 10-30-2023 CYSTOSCOPY TRANSURETHRAL RESECTION BLADDER TUMOR CYSTOSCOPY TRANSURETHRAL RESECTION BLADDER TUMOR Hematuria, microscopic 10/30/2023 9:30 AM EDT [facility] Start: 10-30-2023 End: 10-30-2023 Cystourethroscopy CYSTOSCOPY Hematuria, microscopic 10/30/2023 9:30 AM EDT [facility] Start: 10-30-2023 End: 10-30-2023 Cystourethroscopy with biopsy CYSTOSCOPY BIOPSY BLADDER Hematuria, microscopic 10/30/2023 9:30 AM EDT [facility] Start: 10-30-2023 Subsequent hospital visit by physician 10/30/2023 9:30 AM EDT Hospital Encounter [facility] [address] [place] [address] Lida Suh MD [address] [place] [id number] [facility] Start: 10-22-2023 End: 09-03-2024 Prostatic specific antigen, diagnostic Prostatic specific antigen, diagnostic Lab Routine Elevated PSA Expected: 10/22/2023, Expires: 09/03/2024 [facility] Comment on above: Expected: 10/22/2023 , Expires: 09/03/2024 Start: 09-26-2023 End: 09-26-2023 Patient encounter procedure 09/26/2023 9:00 AM EDT Office Visit [facility] [address] [place] [address] Brooklynn Yeager NP [address] [place] [address] [facility] Start: 09-04-2023 End: 09-04-2024 CT Kidney and Ureter and Urinary bladder 3D post processing WO and W contrast IV CT urogram Imaging Routine Hematuria, microscopic Expected: 09/04/2023, Expires: 09/04/2024 [employer] Work Phone: Comment on above: Expected: 09/04/2023 , Expires: 09/04/2024 Start: 03-15-2023 COVID-19 Vaccine ( season) COVID-19 Vaccine () [facility] Start: 03-15-2023 Influenza vaccination [facility] Start: 10-22-2022 [facility] Start: 09-04-2022 Plain X-ray abdomen XR abdomen min 2 V [facility] Start: 09-04-2022 XR Abdomen Views [facility] Start: 1988 DTaP,Tdap and Td Vac cines (1 - Tdap) DTaP,Tdap and Td Vaccines (1 - Tdap) [facility] Start: 12-27-1987 Adult BMI Follow Up Plan Adult BMI Follow Up Plan [facility] Start: 1981 Depression Screening Depression Scre ening [facility] Start: 1969 Screening for malign ant neoplasm of colon [facility] Start: 1969 Tobacco Counseling Tobacco Counselin g [facility] End: 11-06-2024 Bacteria identified in Urine by Culture Urine Culture Microbiology Routine Hematuria, microscopic 1 Occurrences starting 11/07/2023 until 11/06/2024 [facility] [facility] [facility] Work Phone: Comment on above: 1 Occurrences starti ng 11/07/2023 until 11/06/2024 End: 11-12-2024 Bacteria identified in Urine by Culture Urine Culture Microbiology Routine Malignant neoplasm of overlapping sites of bladder (CMS-HCC) 1 Occurrences starting 11/13/2023 until 11/12/2024 [employer] [facility] [facility] Work Phone: Comment on above: 1 Occurrences starti ng 11/13/2023 until 11/12/2024 Bacteria identified in Urine by Culture Urine Culture Microbiology Routine Malignant neoplasm of overlapping sites of bladder (CMS-HCC) 11/13/2023 10:20 PM EDT [facility] End: 09-03-2024 Cytology Cytology Pathology and Cytology Routine Hematuria, microscopic 1 Occurrences starting 09/04/2023 until 09/03/2024 [facility] Comment on above: 1 Occurrences starti ng 09/04/2023 until 09/03/2024 Patient Education [facility] Work Phone: Patient referral [facility] Work Phone: Immunizations Immunization Date Immunization Notes Care Provider [facility] 09-11-2022 zoster vaccine recombinant Lida Suh MD Work Phone: [facility] 05-31-2022 zoster vaccine recombinant Lida Suh MD Work Phone: [facility] Healthcare Payers Date Payer Category Payer Medicaid HMO [facility] MEDICAID [id number] 2023 Medicaid [id number] 2023 Private Health Insurance [id number] 2023 Medicaid [id number] 1970 Unknown [id number] 2.16.840.1.079909.3.579. 2.593 1969 Unknown [id number] 2.16.840.1.808155.3.579. 2.593 1969 Unknown [id number] 2.16.840.1.073147.3.579. 2.1286 1969 Unknown [id number] 2.16.840.1.991888.3.579. 2.1286 1969 Unknown [id number] 2.16.840.1.696988.3.579. 2.1285 1969 Unknown [id number] 2.16.840.1.619651.3.579. 2.1285 1969 Unknown [id number] 2.16.840.1.712186.3.579. 2.1285 1969 Unknown [id number] 2.16.840.1.880066.3.579. 2.1285 1969 Unknown [id number] 2.16.840.1.692677.3.579. 2.1285 1969 Unknown [id number] 2.16.840.1.761358.3.579. 2.1285 1969 Unknown [id number] 2.16.840.1.591180.3.579. 2.1285 1969 Unknown [id number] 2.16.840.1.063749.3.579. 2.1285 1969 Unknown [id number] 2.16.840.1.563566.3.579. 2.1285 1969 Unknown [id number] 2.16.840.1.436408.3.579. 2.1285 1969 Unknown [id number] 2.16.840.1.296829.3.579. 2.1285 1969 Unknown [id number] 2.16.840.1.952324.3.579. 2.1285 1969 Unknown [id number] 2.16.840.1.226225.3.579. 2.1285 1969 Unknown [id number] 2.16.840.1.949077.3.579. 2.1285 1969 Unknown [id number] 2.16.840.1.856241.3.579. 2.1285 1969 Unknown [id number] 2.16.840.1.410177.3.579. 2.1285 1969 Unknown [id number] 2.16.840.1.706655.3.579. 2.1286 1969 Unknown [id number] 2.16.840.1.368209.3.579. 2.1286 1969 Unknown [id number] 2.16.840.1.054044.3.579. 2.1286 1969 Unknown [id number] 2.16.840.1.515376.3.579. 2.1286 1969 Unknown [id number] 2.16.840.1.101511.3.579. 2.1286 1969 Unknown [id number] 2.16.840.1.241342.3.579. 2.1259 1969 Unknown [id number] 2.16.840.1.916452.3.579. 2.9 1969 Unknown [id number] 2.16.840.1.789163.3.579. 2.1259 1959 Self-pay [id number] 1959 Unknown [id number] Unknown [id number] 2.16.840.1.593454.3.579. 2.593 Unknown [id number] 2.16.840.1.111195.3.579. 2.531 Social History Date Type Detail Facility Start: 09-04-2022 End: 10-22-2022 Tobacco smoking status [facility] Smoker (finding) [facility] Start: 1970 Sex Assigned At Male F [facility] Start: 07-17-2023 End: 03-17-2024 Tobacco smoking status [facility] Smokes tobacco daily [facility] Start: 07-15-1988 History of tobacco use Cigarette Smo ker [facility] Start: 07-17-2023 End: 01-29-2024 Cigarettes smoked current (pack per day) - Reported 1 [facility] Start: 08-21-2023 End: 07-30-2024 Alcohol intake Ex-drinker (finding) [facility] Start: 07-22-2023 End: 01-29-2024 Tobacco use [...] to any clubs or organizations such as denominational groups, [employer], [employer] or athletic groups, or school groups? No [...] Tobacco use and exposure Smokeless tobacco non-user [facility] Start: 06-17-2024 End: 08-19-2024 Alcoholic beverage intake Lifetime non-drinker (finding) [facility] How often to you hav e a drink containing alcohol? Monthly or less [facility] How many standard dr inks containing alcohol do you have on a typical day? 1 or 2 [facility] Start: 08-06-2023 Sex Male (finding) [facility] Goals Date Patient Goal Desired Activity /State Clinical Notes 08-21-2023 to 09-16-2024 Telephone Encounter - Heather Mcdaniels - 09/16/2024 10:36 AM ESTTelephone Encounter - Heather Mcdaniels - 09/16/2024 10:36 AM ESTAssessment & Plan Note - Lida Suh MD - 08/19/2024 4:27 PM EST Note Date & Type Note Facility 09-16-2024 Miscellaneous Notes Patient called to inquire if his cystoscopy will be every 6 months. I advised pt per Dr. Suh note: Cysto local [place] setup 6 months diagnosis history bladder carcinoma. Advised pt that Yoselyn Suh clinic scheduler will call him when it is time to schedule his cysto. Pt advised understanding of this. documented in this encounter [facility] 09-16-2024 Telephone encounter Note Patient called to inquire if his cystoscopy will be every 6 months. I advised pt per Dr. Suh note: Cysto local [place] setup 6 months diagnosis history bladder carcinoma. Advised pt that Yoselyn Suh clinic scheduler will call him when it is time to schedule his cysto. Pt advised understanding of this. [facility] 08-19-2024 Evaluation + Plan note Associated Problem(s): Elevated PSA He does have some difficulty urinating in the morning. I did ask if it is bad enough for him to take it daily medication it was not. It is only isolated. He voids well otherwise. He is happy with the current state. [facility] 08-19-2024 Miscellaneous Notes Associated Problem(s): Elevated PSA He does have some difficulty urinating in the morning. I did ask if it is bad enough for him to take it daily medication it was not. It is only isolated. He voids well otherwise. He is happy with the current state. documented in this encounter [facility] 08-19-2024 History of Presen t illness Narrative Images from the original note were not included. [address] [place] [address] [facility] [address] Patient: [place]o Abreu Date of : 1970 [...] Past Medical History: Diagnosis Date Bipolar disorder ([facility]) Bladder cancer ([facility]) Chronic constipation Depression Hyperlipidemia Visual impairment Past Surgical History: Procedure Laterality Date CHOLECYSTECTOMY 2020 COLONOSCOPY CYSTOSCOPY N/A 06/17/2024 Performed by Lida Suh MD at [facility] CYSTOSCOPY N/A 03/18/2024 Performed by Lida Suh MD at [facility] CYSTOSCOPY N/A 10/30/2023 Performed by Lida Suh MD at [facility] CYSTOSCOPY TRANSURETHRAL RESECTION BLADDER TUMOR N/A 10/30/2023 Performed by Lida Suh MD at [facility] LIPOMA RESECTION several History reviewed. No pertinent [...] clinic 1 year with a PSA Lida Shu MD This note was created with the assistance of a speech recognition program. While intending to generate a timely document that accurately reflects the content of the visit, no guarantee can be provided that every grammatical or spelling mistake has been or will be identified or corrected. Thank you for your understanding. documented in this encounter [facility] 07-30-2024 Instructions Brooklynn Yeager NP - 07/30/2024 8:40 AM EST Get fasting labs Continue with urology documented in this encounter [facility] 06-17-2024 Miscellaneous Notes Cysto local [place] setup 6 months diagnosis history bladder carcinoma. documented in this encounter [facility] 06-17-2024 Telephone encounter Note Cysto local [place] setup 6 months diagnosis history bladder carcinoma. [facility] 03-30-2024 History of Presen t illness Narrative [...] Abdominal pain 09/26/2023 Abnormal TSH Bipolar disorder ([facility]) 07/22/2023 Chicken pox Cholelithiasis Constipation, chronic COVID-19 virus infection DDD (degenerative disc disease), lumbar Diverticulitis 06/26/2023 Genital warts 09/26/2023 History of HPV infection 09/26/2023 HLD (hyperlipidemia) ([facility]) 07/22/2023 Insomnia 09/26/2023 Lipoma 09/26/2023 Lumbar back [...] Bridge of nose with palpable lump: approx [id number], non tender no induration noted no fluctuance [...] this condition documented in this encounter [facility] 03-18-2024 Miscellaneous Notes Cysto local [place] 3 months diagnosis history bladder carcinoma. documented in this encounter [facility] 03-18-2024 Telephone encounter Note Cysto local [place] 3 months diagnosis history bladder carcinoma. [facility] 03-17-2024 Nurse Note Preoperative Education Checklist- General Surgery date: 03/18/24 Surgery time: 8a Arrival time: 7a 1. Bring a photo ID and your insurance card with you the day of surgery. You will check in at the main lobby of the [facility]- registration desk is straight ahead as soon as you walk in. Tell them you are here for surgery. 2. If you have a Living Will/Durable Power of Salesperson [employer] for Health Care that is not on [...] after you have bathed. 5. NO nail lithuanian/acrylic on at least one finger. If you are having a hand, wrist or foot surgery then all nail lithuanian and artificial/acrylic nails must be removed from [...] please call the Preadmission Testing office at [phone], Mon.-Fri. 7 a.m.-3 p.m. Leave a voicemail if needed. Pre-Surgery Instructions: Medication Instructions atorvastatin (LIPITOR) 10 mg tablet Stop taking 0 days prior to procedure lamoTRIgine (LaMICtal) 100 mg tablet Take morning of procedure citalopram (CeleXA) 20 mg tablet Stop taking 0 days prior to procedure [facility] 03-17-2024 Miscellaneous Notes Preoperative Education Checklist- General Surgery date: 03/18/24 Surgery time: 8a Arrival time: 7a 1. Bring a photo ID and your insurance card with you the day of surgery. You will check in at the main lobby of the [facility]- registration desk is straight ahead as soon as you walk in. Tell them you are here for surgery. 2. If you have a Living Will/Durable Power of Salesperson Handbags for Health Care that is not on [...] after you have bathed. 5. NO nail lithuanian/acrylic on at least one finger. If you are having a hand, wrist or foot surgery then all nail lithuanian and artificial/acrylic nails must be removed from [...] please call the Preadmission Testing office at [phone], Mon.-Fri. 7 a.m.-3 p.m. Leave a voicemail if needed. Pre-Surgery Instructions: Medication Instructions atorvastatin (LIPITOR) 10 mg tablet Stop taking 0 days prior to procedure lamoTRIgine (LaMICtal) 100 mg tablet Take morning of procedure citalopram (CeleXA) 20 mg tablet Stop taking 0 days prior to procedure documented in this encounter [facility] 01-29-2024 Evaluation + Plan note Associated Problem(s): Malignant neoplasm of overlapping sites of bladder (CMS-HCC) Postop day of have clots and clot retention. This has resolved. He was started on finasteride and Flomax at the time of the ER visit. He was not on these before. He can stop those. [facility] 01-29-2024 Miscellaneous Notes Associated Problem(s): Malignant neoplasm [...] well as finasteride documented in this encounter [facility] 01-29-2024 Evaluation + Plan note Associated Problem(s): Elevated PSA He can stop his Flomax as well as finasteride [facility] 01-29-2024 History of Presen t illness Narrative Images from the original note were not included. [address] [place] [address] [facility] [address] Patient: [place]o Abreu Date of : 1970 [...] Past Medical History: Diagnosis Date Bipolar disorder ([facility]) Chronic constipation Depression Hyperlipidemia Visual impairment Past Surgical History: Procedure Laterality Date CHOLECYSTECTOMY 2020 COLONOSCOPY CYSTOSCOPY N/A 10/30/2023 Performed by Lida Suh MD at [facility] CYSTOSCOPY TRANSURETHRAL RESECTION BLADDER TUMOR N/A 10/30/2023 Performed by Lida Suh MD at [facility] History reviewed. No pertinent family history. Current [...] for your understanding. documented in this encounter [facility] 01-21-2024 Miscellaneous Notes Patient calls in he is out of his Tamsulosin and Finasteride which he states he was prescribed in the ER. He is asking if you can refill it until he sees him in the office on Saturday01/29/24 - He was in the [place] ER - He was urinating blood clots causing him to go into Urinary retention. [facility] in [place] These were both refilled by me on December 18 to the appropriate pharmacy Patient informed to call [facility] to have them fill, as they may be on file. documented in this encounter [facility] 01-21-2024 Telephone encounter Note Patient calls in he is out of his Tamsulosin and Finasteride which he states he was prescribed in the ER. He is asking if you can refill it until he sees him in the office on Saturday01/29/24 - He was in the [place] ER - He was urinating blood clots causing him to go into Urinary retention. [facility] in [place] [facility] 01-21-2024 Telephone encounter Note These were both refilled by me on December 18 to the appropriate pharmacy [facility] 01-21-2024 Telephone encounter Note Patient informed to call [facility] to have them fill, as they may be on file. [facility] 12-19-2023 Miscellaneous Notes Richard from [facility] at Dr. Olsen's office in [place] is asking if pt is to continue [...] let pt know. documented in this encounter [facility] 12-19-2023 Telephone encounter Note Richard from [facility] at Dr. Olsen's office in [place] is asking if pt is to continue on the Flomax and the Proscar for more than a month? He was prescribed these at the ER and was only given 30 days worth of each. Pt was to see you yesterday, but is now scheduled for 01/29/2024. [facility] 12-19-2023 Telephone encounter Note I refilled those prescriptions when we see him in January we can determine what to do [facility] 12-19-2023 Telephone encounter Note Richard was notified and will let pt know. [facility] 11-13-2023 Evaluation + Plan note Associated Problem(s): Malignant neoplasm of overlapping sites of bladder (CMS-HCC) Patient with incidental finding CT urogram some bony changes. PSA is really not the elevated actually PSA is better now. Talked about potential metastasis. Certainly need a bone scan to evaluate. Return clinic. [facility] 11-13-2023 Miscellaneous Notes Associated Problem(s): Malignant neoplasm of overlapping sites of bladder (CMS-HCC) Patient with incidental finding CT urogram some bony changes. PSA is really not the elevated actually PSA is better now. Talked about potential metastasis. Certainly need a bone scan to evaluate. Return clinic. documented in this encounter [facility] 11-13-2023 Miscellaneous Notes 3-4 months cysto local [place] diagnosis history urothelial carcinoma. Urine for fish and cytology 2 weeks prior. documented in this encounter [facility] 11-13-2023 Telephone encounter Note 3-4 months cysto local [place] diagnosis history urothelial carcinoma. Urine for fish and cytology 2 weeks prior. [facility] 11-13-2023 History of Presen t illness Narrative Images from the original note were not included. [address] [place] [address] [address] [facility] [address] Patient: [place]o Abreu Date of : 1970 [...] Past Medical History: Diagnosis Date Bipolar disorder ([facility]) Chronic constipation Depression Hyperlipidemia Visual impairment Past Surgical History: Procedure Laterality Date CHOLECYSTECTOMY 2020 COLONOSCOPY CYSTOSCOPY N/A 10/30/2023 Performed by Lida Suh MD at [facility] CYSTOSCOPY TRANSURETHRAL RESECTION BLADDER TUMOR N/A 10/30/2023 Performed by Lida Suh MD at [facility] History reviewed. No pertinent family history. Current Outpatient Medications Medication Sig Dispense Refill atorvastatin (LIPITOR) 10 mg tablet Take 1 tablet (10 mg total) by mouth in the morning. citalopram (CeleXA) 20 mg tablet Take 1 tablet (20 mg total) by mouth in the morning. lamoTRIgine (LaMICtal) 100 mg tablet Take 1 tablet (100 mg total) by mouth in the morning. libanehrx-grjom-ysk (URO-MP) 118-10-40.8-36 mg capsule Take 1 capsule [...] scan whole body; Future Other orders - libankrsj-rsekv-dao (URO-MP) 118-10-40.8-36 mg capsule; Take 1 capsule [...] for your understanding. documented in this encounter [facility] 11-07-2023 Miscellaneous Notes Patient is having intermittent blood with urination. Patient also states he is urinating frequently and sometimes its a very good stream but he oconnell at the end of the stream, then he tries to push a little more and it drips blood. Patient just wants to be sure things are going as it should. Pt states he lives in [place] Pt's f/u appt is scheduled for 11/13/2023 He is also asking about his path results. Findings are very typical postprocedure. Will review pathology at office appointment. Should he wish I did place an order for urine culture he can always have that obtained. Patient was informed documented in this encounter [facility] 11-07-2023 Telephone encounter Note Patient is having intermittent blood with urination. Patient also states he is urinating frequently and sometimes its a very good stream but he oconnell at the end of the stream, then he tries to push a little more and it drips blood. Patient just wants to be sure things are going as it should. Pt states he lives in [place] [facility] f/u appt is scheduled for 11/13/2023 He is also asking about his path results. [facility] 11-07-2023 Telephone encounter Note Findings are very typical postprocedure. Will review pathology at office appointment. Should he wish I did place an order for urine culture he can always have that obtained. [facility] 11-07-2023 Telephone encounter Note Patient was informed [facility] 10-31-2023 Miscellaneous Notes Patient called in stating he is in a lot of pain every time he goes to urinate. [place]o would like something sent over to the pharmacy on file. Please advise Pyridium sent to his pharmacy documented in this encounter [facility] 10-31-2023 Telephone encounter Note Patient called in stating he is in a lot of pain every time he goes to urinate. [place] would like something sent over to the pharmacy on file. Please advise [facility] 10-31-2023 Telephone encounter Note Pyridium sent to his pharmacy [facility] 10-30-2023 Miscellaneous Notes Patient needs to follow up in the office in [place] 2-3 weeks or so. Follow up on the TURBT. documented in this encounter [facility] 10-30-2023 Telephone encounter Note Patient needs to follow up in the office in [place] 2-3 weeks or so. Follow up on the TURBT. [facility] 10-17-2023 Instructions Tiffanie Altamirano RN - 10/17/2023 9:00 AM EDT Preoperative Education Checklist- General Surgery date: 10/30/23 Surgery time: 930a Arrival time: 730a 1. Bring a photo ID and your insurance card with you the day of surgery. You will check in at the main lobby of the [facility]- registration desk is straight ahead as soon as you walk in. Tell them you are here for surgery. 2. If you have a Living Will/Durable Power of [employer] that is not on [...] after you have bathed. 5. NO nail lithuanian/acrylic on at least one finger. If you are having a hand, wrist or foot surgery then all nail lithuanian and artificial/acrylic nails must be removed from [...] please call the [facility] office at [phone], Mon.-Fri. 7 a.m.-3 p.m. Leave a voicemail [...] with your doctor. documented in this encounter [facility] 09-04-2023 Miscellaneous Notes Cysto potential retrograde pyelogram. Mac anesthesia [place]. Possible biopsy. Diagnosis is hematuria. documented in this encounter [facility] 09-04-2023 Telephone encounter Note Cysto potential retrograde pyelogram. Mac anesthesia [place]. Possible biopsy. Diagnosis [facility]. [facility] Evaluation + Plan note Associated Problem(s): [...] system. The patient acknowledges this and agrees. [facility] 09-04-2023 Miscellaneous Notes Associated Problem(s): Hematuria, [...] this and agrees. documented in this encounter [facility] 09-04-2023 History of Presen t illness Narrative Images from the original note were not included. [address] [place] [address] [facility] [address] Patient: Reno Abreu Date of : 1970 [...] for your understanding. documented in this encounter [facility] 08-21-2023 Telephone encounter Note pt called needing a refill on his lamoTRIgine (LaMICtal) 100 MG tablet and citalopram (CeleXA) 20 MG tablet [facility] 08-21-2023 Miscellaneous Notes pt called needing a refill on his lamoTRIgine (LaMICtal) 100 MG tablet and citalopram (CeleXA) 20 MG tablet documented in this encounter [facility] Evaluation note No assessment inform ation available [facility] Work Phone: Evaluation note Diagnosis Bipolar affective disorder, remission status unspecified (CMS/HCC)- Primary documented in this encounter [facility] Diagnosis Mixed hyperlipidemia (CMS/HCC)- Primary [...] Other abnormal glucose documented in this encounter [facility]* Diagnosis Diverticulitis- Primary Diverticulitis of [...] D deficiency- Primary documented in this encounter [facility]* Diagnosis Elevated PSA- Primary [...] bladder (CMS-HCC) documented [facility] Diagnosis Hematuria, microscopic- Primary Microscopic hematuria [facility] Diagnosis Malignant neoplasm of overlapping sites of bladder (CMS-HCC)- Primary Elevated PSA Elevated prostate specific antigen (PSA) [facility] Diagnosis Elevated PSA- Primary Elevated prostate specific antigen (PSA) Hematuria, microscopic Microscopic hematuria [facility] Diagnosis Malignant neoplasm of overlapping sites of bladder (CMS-HCC)- Primary Urinary incontinence, unspecified type- Primary Elevated PSA Elevated prostate specific antigen (PSA) Malignant neoplasm of overlapping sites of bladder (CMS-HCC) Malignant neoplasm of overlapping sites of bladder (CMS-HCC) [facility] Diagnosis Elevated PSA- Primary [...] of bladder (CMS-HCC) [facility]* Brooklynn Yeager, PLANT OPERATIONS WORKER - 07/30/2024 8:40 AM EST Images from the original note were not included. ;tanya Reno Abreu is a 53 y.o. male [...] Abdominal pain 09/26/2023 Abnormal TSH Bipolar disorder ([facility]) 07/22/2023 Chicken pox Cholelithiasis Constipation, chronic COVID-19 virus infection DDD (degenerative disc disease), lumbar Diverticulitis 06/26/2023 Genital warts 09/26/2023 History of HPV infection 09/26/2023 HLD (hyperlipidemia) (CMS/HCC) 07/22/2023 Insomnia 09/26/2023 Lipoma 09/26/2023 Lumbar back [...] of the risks of continued smoking: stroke, PR, all forms of cancer, lung disease, and [...] of the risks of continued smoking: stroke, PR, all forms of cancer, lung disease, and [...] with Urology for mgmt [facility] Additional Instructions As we discussed, your symptoms of excessive sleepiness during the day, persistent fatigue, and loud snoring suggest possible sleep apnea. Please follow up with your doctor about this as you may need to be referred for a sleep study. MiraLax may be used daily to stay regular and prevent constipation. May be taken twice daily until constipation is resolved.[facility] Work Phone: InstructionsNot on filedocumented [...] [facility] Summary Purpose Family History No Family [...] bone scan whole body Lida Suh MD [address] [place] [address] [address] [address] [place] [address] Phone: [phone] Referral ID Status Reason Start Date Expiration Date V isits Requested Visits Authorized [id number] PREG Nurse Review 11/13/2023 11/12/2024 5 5 Specialty Diagnoses / Procedures Referred By Helen hayes Referred To Contact Radiology Diagnoses Hematuria, microscopic Procedures CT urogram Lida Suh MD [address] [place] [id number] Referral ID Status Reason Start Date Expiration Date V isits Requested Visits Authorized [id number] Pending Review 09/04/2023 09/03/2024 1 1 Specialty Diagnoses / Procedures Referred By Contphilippe t Referred To Contact Diagnoses Urinary incontinence, unspecified type Procedures Measure post void residual Lida Suh MD [address] [place] [address] Referral ID Status Reason Start Date Expiration Date V isits Requested Visits Authorized [id number] Pending Review 01/29/2024 01/28/2025 1 1 Additional Source Comments (unrecognized sect ion and content) No Status Records FoundNo Status Records FoundNo Status Records FoundNo Status Records FoundNo Status Records FoundNo Status Records FoundNo Status Records Found INFORMATION SOURCE (unrecogn ized section and content) DATE CREATED AUTHOR 02/04/2018 [facility] DATE CREATED AUTHOR AUTHOR'S ORGANIZ ATION 10/02/2022 [facility] DATE CREATED AUTHOR AUTHOR'S ORGANIZ ATION 12/03/2023 [facility] DATE CREATED AUTHOR AUTHOR'S ORGANIZ ATION 12/11/2023 [facility] DATE CREATED AUTHOR AUTHOR'S ORGANIZ ATION 06/28/2024 [facility] DATE CREATED AUTHOR AUTHOR'S ORGANIZ ATION 08/22/2024 [facility] DATE CREATED AUTHOR AUTHOR'S ORGANIZ ATION 10/05/2024 [facility] Care Teams (unrecognized sec tion and content) [...] Active Brooklynn Yeager Primary Care Provider Active Firefighter Type One Relationship Specialty Start Date End Date Eusebio Schneider MD [address] [place] [address] PCP - General Family Medicine 07/16/23 Brooklynn Yeager NP [address] [place] [address] Nurse Practitioner Family Medicine 05/15/23 Firefighter Type One Relationship Specialty Start Date End Date Eusebio Schneider MD [address] [place] [address] PCP - General Family Medicine 07/16/23 Brooklynn Yeager NP [address] [place] [address] Nurse Practitioner Family Medicine 05/15/23 Firefighter Type One Relationship Specialty Start Date End Date Eusebio Schneider MD [address] [place] [address] PCP - General Family Medicine 09/26/23 Brooklynn Yeager NP [address] [place] [address] PCP - [facility] 01/13/24 Brooklynn Yeager NP [address] [place] [address] Nurse Practitioner Family Medicine 05/15/23 Brooklynn Yeager NP [address] [place] [address] Nurse Practitioner Family Medicine 09/26/23 Firefighter Type One Relationship Specialty Start Date End Date Eusebio Schneider MD [address] [place] [address] PCP - General Family Medicine 09/26/23 Brooklynn Yeager NP [address] [place] [address] PCP - [facility] 01/13/24 Brooklynn Yeager NP [address] [place] [address] Nurse Practitioner Family Medicine 05/15/23 Brooklynn Yeager NP [address] [place] [address] Nurse Practitioner Family Medicine 09/26/23 Firefighter Type One Relationship Specialty Start Date End Date Eusebio Schneider MD [address] [place] [address] PCP - General Family [facility] 09/26/23 Brooklynn Yeager NP [address] [place] [address] PCP - [facility] 01/13/24 Brooklynn Yeager NP [address] [place] [address] Nurse Practitioner Family Medicine 05/15/23 Brooklynn Yeager NP [address] [place] [address] Nurse Practitioner Family Medicine 09/26/23 Firefighter Type One Relationship Specialty Start Date End Date Eusebio Schneider MD [address] [place] [address] PCP - General [facility] 09/26/23 Brooklynn Yeager NP [address] [place] [address] PCP - [facility] 01/13/24 Brooklynn Yeager NP [address] [place] [address] Nurse Practitioner Family Medicine 05/15/23 Brooklynn Yeager NP [address] [place] [address] Nurse Practitioner Family Medicine 09/26/23 Firefighter Type One Relationship Specialty Start Date End Date Eusebio Schneider MD [address] [place] [address] PCP - General Family [facility] 09/26/23 Brooklynn Yeager NP [address] [place] [address] PCP - [facility] 01/13/24 Brooklynn Yeager NP [address] [place] [address] Nurse Practitioner Family Medicine 05/15/23 Brooklynn Yeager NP [address] [place] [address] Nurse Practitioner Family Medicine 09/26/23 Firefighter Type One Relationship Specialty Start Date End Date Eusebio Schneider MD [address] [place] [address] PCP - General Family [facility] 09/26/23 Brooklynn Yeager NP [address] [place] [address] PCP - [facility] 01/13/24 Brooklynn Yeager NP [address] [place] [address] Nurse Practitioner Family Medicine 05/15/23 Brooklynn Yeager NP [address] [place] [address] Nurse Practitioner Family Medicine 09/26/23 Firefighter Type One Relationship Specialty Start Date End Date Eusebio Schneider MD [address] [place] [address] PCP - General [facility] 09/26/23 Brooklynn Yeager NP [address] [place] [address] PCP - [facility] 01/13/24 Brooklynn Yeager NP [address] [place] [address] Nurse Practitioner Family Medicine 05/15/23 Brooklynn Yeager NP [address] [place] [address] Nurse Practitioner Family Medicine 09/26/23 Firefighter Type One Relationship Specialty Start Date End Date Eusebio Schneider MD [address] [place] [address] PCP - General Family [facility] 09/26/23 Brooklynn Yeager NP [address] [place] [address] PCP - [facility] 01/13/24 Brooklynn Yeager NP [address] [place] [address] Nurse Practitioner Family Medicine 05/15/23 Brooklynn Yeager NP [address] [place] [address] Nurse Practitioner Family Medicine 09/26/23 Firefighter Type One Relationship Specialty Start Date End Date Eusebio Schneider MD [address] [place] [address] PCP - General [facility] 09/26/23 Brooklynn Yeager NP [address] [place] [address] PCP - [facility] 01/13/24 Brooklynn Yeager NP [address] [place] [address] Nurse Practitioner Family Medicine 05/15/23 Brooklynn Yeager NP [address] [place] [address] Nurse Practitioner Family Medicine 09/26/23 Firefighter Type One Relationship Specialty Start Date End Date Eusebio Schneider MD [address] [place] [address] PCP - General Family Medicine 09/26/23 Brooklynn Yeager NP [address] [place] [address] PCP - [facility] 01/13/24 Brooklynn Yeager NP [address] [place] [address] Nurse Practitioner Family Medicine 05/15/23 Brooklynn Yeager NP [address] [place] [address] Nurse Practitioner Family Medicine 09/26/23 Firefighter Type One Relationship Specialty Start Date End Date Brooklynn Yeager APRN-[employer] PCP - General Nurse Practitioner 09/04/23 Firefighter Type One Relationship Specialty Start Date End Date Brooklynn Yeager [employer] INST[employer]ER[employer] [address] [place] [address] PCP - General Nurse Practitioner 09/04/23 Firefighter Type One Relationship Specialty Start Date End Date Brooklynn Yeager [employer] INST[employer]ER[employer] [address] [place] [address] PCP - General Nurse Practitioner 09/04/23 Firefighter Type One Relationship Specialty Start Date End Date Brooklynn Yeager [facility] [address] [place] [address] PCP - General Nurse Practitioner 09/04/23 Firefighter Type One Relationship Specialty Start Date End Date Brooklynn Yeager [facility] [address] [place] [address] PCP - General Nurse Practitioner 09/04/23 Firefighter Type One Relationship Specialty Start Date End Date Brooklynn Yeager [facility] [address] [place] [address] PCP - General Nurse Practitioner 09/04/23 Firefighter Type One Relationship Specialty Start Date End Date Brooklynn Yeager [facility] [address] [place] [address] PCP - General Nurse Practitioner 09/04/23 Firefighter Type One Relationship Specialty Start Date End Date Brooklynn Yeager [facility] [address] [place] [address] PCP - General Nurse Practitioner 09/04/23 Firefighter Type One Relationship Specialty Start Date End Date Brooklynn Yeager [facility] [address] [place] [address] PCP - General Nurse Practitioner 09/04/23 Firefighter Type One Relationship Specialty Start Date End Date Brooklynn Yeager [facility] [address] [place] [address] PCP - General Nurse Practitioner 09/04/23 Firefighter Type One Relationship Specialty Start Date End Date WandaBrooklynn alonso [facility] [address] [place] [address] PCP - General Nurse Practitioner 09/04/23 Firefighter Type One Relationship Specialty Start Date End Date Brooklynn Yeager [facility] [address] [place] [address] PCP - General Nurse Practitioner 09/04/23 Firefighter Type One Relationship Specialty Start Date End Date Brooklynn Yeager [facility] PCP - General Nurse Practitioner 09/04/23 Firefighter Type One Relationship Specialty Start Date End Date Brooklynn Yeager [facility] PCP - General Nurse Practitioner 09/04/23 Firefighter Type One Relationship Specialty Start Date End Date Brooklynn Yeager [facility] PCP - General Nurse Practitioner 09/04/23 Firefighter Type One Relationship Specialty Start Date End Date WandaBrooklynn alonso [facility] PCP - General Nurse Practitioner 09/04/23 Firefighter Type One Relationship Specialty Start Date End Date Eusebio Schneider MD [address] [place] [address] PCP - General Family Medicine 09/26/23 Brooklynn Yeager NP [address] [place] [address] PCP - [facility] 01/13/24 Brooklynn Yeager NP [address] [place] [address] Nurse Practitioner Family Medicine 05/15/23 Brooklynn Yeager NP [address] [place] [address] Nurse Practitioner Family Medicine 09/26/23 Firefighter Type One Relationship Specialty Start Date End Date Brooklynn Yeager APRN-[employer] PCP - General Nurse Practitioner 09/04/23 Goals [...] BE BASED ON THE PRIMARY CLINICAL RECORDS. [email or web address] provides no warranty or guarantee of the accuracy or completeness of information in this document.
[2024-10-12 07:46] LABS: BUN Creatinine Ratio 8.3; Calcium 8.7 mg/dL (8.5-10.1); Carbon Dioxide 30.6 mmol/L (21.0-32.0); Chloride 103 mmol/L (98-107); Estimated GFR (African America >60 (>=60 mL/min/1.73m^2); Estimated GFR (Non-African Ame >60 (>=60 mL/min/1.73m^2); Glucose 107 mg/dL (74-106); Potassium 3.6 mmol/L (3.5-5.1); Sodium 142 mmol/L (136-145)
== END 2024-10-12 06:32 | disposition home or self-care (01) ==
LOC: LAB 06:31
PROVIDERS: PCP Nurse Practitioner; Visit Provider Nurse Practitioner
DX: E55.9 Vitamin D deficiency, unspecified (principal)
CPT/HCPCS: 36415; 80048; 82306

== ENCOUNTER 2024-12-10 06:15 | Outpatient (OUT) | payer OTHER, SELFPAY ==
--- OUTSIDE RECORDS SUMMARY | 2024-12-10 06:20 | XMS_ITS | CCD ---
Author Organization [facility] Care Team Providers Care Behavioral Health Specialist Name Role Phone KINJAL CHEW Unavailable Unavailable KINJAL CHEW Unavailable Unavailable Aichholvelia, Brooklynn Adi Primary Care Provider MD Hernandez Lares Jr Emergency Provider AICHHOLZ, COMPUTER SCIENCE INTERN BROOKLYNN Attending Unavailable AICHHOLZ, COMPUTER SCIENCE INTERN BROOKLYNN Consulting Unavailable AICHHOLZ, COMPUTER SCIENCE INTERN BROOKLYNN Primary Care Unavailable AICHHOLZ, COMPUTER SCIENCE INTERN BROOKLYNN Admitting Unavailable AICHHOLZ, COMPUTER SCIENCE INTERN BROOKLYNN Attending Unavailable AICHHOLZ, COMPUTER SCIENCE INTERN BROOKLYNN Consulting Unavailable AICHHOLZ, COMPUTER SCIENCE INTERN BROOKLYNN Primary Care Unavailable AICHHOLZ, COMPUTER SCIENCE INTERN BROOKLYNN Admitting Unavailable AICHHOLZ, COMPUTER SCIENCE INTERN BROOKLYNN Primary Care Unavailable MISC, DR QUIGLEY Attending Unavailable MISC, DOCTOR Consulting Unavailable MISC, DOCTOR Admitting Unavailable Aichholz, Brooklynn J Primary Care Provider MD Hernandez Lares Jr Emergency Provider MD Kevin Sheehan Attending Provider Aichholz WIRELESS TELEGRAPHER, Brooklynn Unavailable Eusebio Schneidre MD Primary Care Provider [phone] LIDA SUH Referring Unavailable AICHHOLZ, BROOKLYNN J Primary Care Unavailable AICHHOLZ, BROOKLYNN J Primary Care Unavailable [facility] Consulti kaylan Unavailable BRICE DYSON Attending Unavailab JOSE Jamison Admitting Unavailable JOSE GARIBAY Attending Unavailable HERNANDEZ LARES JR Referring Unavailable AICHHOLZ, BROOKLYNN Adi Primary Care Unavailable AICHHOLZ, BROOKLYNN J Referring Unavailable AICHHOLZ, BROOKLYNN J Primary Care Unavailable Aichholz, Brooklynn J Primary Care Unavailable Hernandez Lares Jr Attending Unavailable Hernandez Lares Jr Admitting Unavailable Aichholz WIRELESS TELEGRAPHER, Brooklynn Unavailable Eusebio Schneider MD Primary Care Provider Aichholz WIRELESS TELEGRAPHER, Brooklynn Unavailable Aichholz WIRELESS TELEGRAPHER, Brooklynn Unavailable LIDA SUH Attending Unavailable LIDA [...] AICHHOLZ, BROOKLYNN J Primary Care Unavailable Aichholz PICK PULLING MACHINE OPERATOR-COMPUTER SCIENCE INTERN, Brooklynn J Primary Care Provider LIDA SUH [...] [acetaminophen] Drug Allergy 09-04-19 23 Gastrointestinal Upset [facility] (20 sources) HYDROcodone; Translations: [hydrocodone] Drug Allergy 09-04-19 23 GI intolerance [facility] (1 source) Acetaminophen / HYDROcodone Drug Allergy [facility] (20 sources) Acetaminophen / HYDROcodone; Translations: [HYDROCODONE-ACET AMINOPHEN] Drug Allergy 09-04-19 [facility] Rep[facility] Medications Current Medications Medication Drug [...] April 04, 2020 October 22, 2022 2:09pm [id number] 200 actuat albuterol 0.09 mg/actuat metered dose [...] sources) HMG-CoA Reductase Inhibitor Start: 01-21-2024 End: 01-03-2025 take 1 tablet by mouth at bedtime atorvastatin (Lipitor) 10 MG tablet Indications: Mixed hyperlipidemia (CMS/HCC) Take 1 tablet (10 mg) by mouth at bedtime 90 tablet 1 10/05/2024 01/03/2025 Active Start: 07-29-2023 End: 12-19-2023 take 1 tablet by mouth in the morning atorvastatin (LIPITOR) 10 mg tablet Take 1 tablet (10 mg total) by mouth in the morning. 09/20/2023 12/19/2023 Active brompheniramine maleate 0.4 mg/ml / dextromethorphan hydrobromide 2 mg/ml / pseudoephedrine hydrochloride 6 mg/ml oral solution (1 source) alpha-Adrenergic Agonist, Uncompetitive Y-fibkrp-G-aspartate Receptor Antagonist, Sigma-1 Agonist Start: 07-02-2024 End: 07-07-2024 take 10 mL by mouth four times daily as needed for cough succonsmjkbbatk-ijvmmmjteozmtxe-FQ 30-2-10 MG/5ML syrup Indications: COVID Take 10 mL by mouth 4 (four) times a day as needed for cough or congestion for up to 5 days 200 mL 07/02/2024 07/07/2024 Active cholecalciferol 0.125 mg oral capsule (6 sources) Vitamin D Start: 10-12-2024 End: 11-11-2024 take 1 capsule by mouth once daily cholecalciferol (Vitamin D-3) 125 MCG (5000 UT) capsule Indications: Vitamin D deficiency Take 1 capsule (125 mcg) by mouth Daily 30 capsule 2 10/12/2024 11/11/2024 Active Start: 08-18-2024 End: 09-17-2024 take 1 [...] sources) Serotonin Reuptake Inhibitor Start: 08-21-2023 End: 01-03-2025 take 1 tablet by mouth once daily citalopram (CeleXA) 20 MG tablet Indications: Bipolar affective disorder, remission status unspecified (CMS/HCC) Take 1 tablet (20 mg) by mouth Daily 90 tablet 1 10/05/2024 01/03/2025 Active Start: 10-22-2022 take 1 tablet by [...] sources) Oxidation-Reduction Agent Start: 11-13-2023 End: 11-20-2023 methen-mKamilablue-s.ph ng-vzrsb-mkv (URO-MP) 118-10-40.8-36 mg capsule Take 1 capsule [...] Mood Stabilizer, Anti-epileptic Agent Start: 05-21-2023 End: 01-03-2025 take 1 tablet by mouth once daily lamoTRIgine (LaMICtal) 100 MG tablet Indications: Bipolar affective disorder, remission status unspecified (CMS/HCC) Take 1 tablet (100 mg) by mouth Daily 90 tablet 1 10/05/2024 01/03/2025 Active Start: 10-22-2022 take 1 tablet by esau twice daily Lamotrigine (Lamictal) 25 mg tablet [...] Sig (Normalized) Sig (Original) polyethylene glycol 3350 19978 mg powder for oral solution (3 sources) [...] 09-04-2023 03-30-2024 Chronic Diabetes mellitus without complication (9 sources) Hyperglycemia; Translations: [Hyperglycemia, unspecified] Onset: 08-14-2024 08-14-2024 Episodic Disorders of lipid metabolism (20 sources) Hyperlipidemia; Translations: [Hyperlipidemia, unspecified] Onset: 07-22-2023 Resolved: 09-26-2023 07-22-2023 Chronic Diverticulosis and diverticulitis (20 sources) Diverticulitis; Translations: [Diverticulitis of intestine, part unspecified, without perforation or abscess without bleeding] Onset: 06-26-2023 06-26-2023 Chronic Genitourinary symptoms and ill-defined conditions (2 sources) Unspecified urinary incontinence; Translations: [Urinary incontinence] Onset: 01-29-2024 01-29-2024 Chronic Intestinal obstruction without hernia (3 sources) Intussusception of intestine; Translations: [Intussusception] 04-04-2020 Episodic Malaise and fatigue (3 sources) Fatigue; Translations: [Other fatigue] 09-05-2022 Episodic Miscellaneous mental health disorders (18 sources) Impotence; Translations: [Male erectile disorder] Onset: 09-26-2023 09-26-2023 Chronic Mood disorders (20 sources) Bipolar disorder; Translations: [Bipolar disorder, unspecified] Onset: 07-22-2023 08-21-2023 Chronic Nutritional deficiencies (9 sources) Vitamin D deficiency; Translations: [Vitamin D deficiency, unspecified] Onset: 08-18-2024 08-18-2024 Chronic Other gastrointestinal disorders (3 sources) Constipation; Translations: [Constipation, unspecified] 09-05-2022 Episodic Other lower respiratory disease (3 sources) Snoring; Translations: [Snoring] 09-05-2022 Episodic Other nutritional; endocrine; and metabolic disorders (20 sources) Body mass index 30+ - obesity; Translations: [Obesity, unspecified] Onset: 09-26-2023 09-26-2023 Chronic Other nutritional; endocrine; and metabolic disorders (9 sources) Hypocalcemia; Translations: [Hypocalcemia] Onset: 08-14-2024 08-14-2024 Chronic Residual codes; unclassified (3 sources) Daytime somnolence; Translations: [Other hypersomnia] 09-05-2022 Chronic Spondylosis; intervertebral disc disorders; other back problems (20 sources) Degeneration of lumbar intervertebral disc; Translations: [Other intervertebral disc degeneration, lumbar region] Onset: 08-21-2023 08-21-2023 Chronic Substance-related disorders (4 sources) Nicotine dependence; Translations: [Nicotine dependence, unspecified, uncomplicated] Onset: 10-05-2024 10-05-2024 Chronic Unclassified (3 sources) CONTACT W/AND (SUSP) EXPOS COVID-19; Translations: [CONTACT W/AND (SUSP) EXPOS COVID-19] Onset: 11-06-2021 Unclassified (1 source) 52 yrs M (1970) [address] Onset: 11-29-2023 Unclassified (1 source) Hematuria, microscopic [R31.29] Onset: 10-30-2023 Unclassified (1 source) Elevated PSA Onset: 09-04-2023 Past or Other Problems Problem Classification Problem Date Documented Da te Episodic/Chronic Abdominal pain (18 sources) Abdominal pain; Translations: [Unspecified abdominal pain] Onset: 09-26-2023 09-26-2023 Episodic Anal and rectal conditions (18 sources) Rectal pain; Translations: [Other specified diseases of anus and rectum] Onset: 09-26-2023 09-26-2023 Episodic Genitourinary symptoms and ill-defined conditions (20 sources) Microscopic hematuria; Translations: [Other microscopic hematuria] Onset: 07-29-2023 Resolved: 03-30-2024 07-29-2023 Episodic Mood disorders (10 sources) Mood disorders Onset: 12-01-2023 12-01-2023 Other and unspecified benign neoplasm (18 sources) Lipoma (clinical); Translations: [Benign lipomatous neoplasm, unspecified] Onset: 09-26-2023 09-26-2023 Episodic Other gastrointestinal disorders (20 sources) Chronic constipation; Translations: [Other constipation] Onset: 08-21-2023 08-21-2023 Episodic Other infections; including parasitic (18 sources) History of human papilloma virus infection; Translations: [Personal history of other infectious and parasitic diseases] Onset: 09-26-2023 09-26-2023 Episodic Other nutritional; endocrine; and metabolic disorders (4 sources) Polydipsia; Translations: [POLYDIPSIA] Onset: 03-08-2022 Episodic Other screening for suspected conditions (not mental disorders or infectious disease) (20 sources) Encounter for screening, unspecified; Translations: [Patient encounter status] Onset: 09-18-2022 Episodic Other skin disorders (20 sources) Multiple skin tags; Translations: [Other hypertrophic disorders of the skin] Onset: 07-22-2023 07-22-2023 Episodic Other skin disorders (19 sources) Mass of skin; Translations: [Localized swelling, mass and lump, unspecified] Onset: 03-30-2024 03-30-2024 Episodic Residual codes; unclassified (20 sources) Tobacco user; Translations: [Tobacco use] Onset: 07-22-2023 Resolved: 10-05-2024 07-22-2023 Episodic Residual codes; unclassified (18 sources) Insomnia; Translations: [Insomnia, unspecified] Onset: 09-26-2023 09-26-2023 Episodic Superficial injury; contusion (19 sources) Contusion of scalp; Translations: [Contusion of scalp, initial encounter] Onset: 03-30-2024 Resolved: 07-30-2024 03-30-2024 Episodic Unclassified (1 source) CONTACT W/AND (SUSP) EXPOS COVID-19; Translations: [CONTACT W/AND (SUSP) EXPOS COVID-19] Onset: 11-03-2021 Viral infection (20 sources) Genital warts; Translations: [Anogenital (venereal) warts] Onset: 09-26-2023 09-26-2023 Episodic Results Test Name Value Interpretation Reference Range Facility ALL BASIC METABOLIC PANELon 10-12-2024 Anion gap [Moles/Vol] 12 mmol/L [facility] Calcium [Mass/Vol] 8.7 mg/dL 8.5 - 10. 1 mg/dL [facility] Chloride [Moles/Vol] 103 mmol/L 98 - 10 7 mmol/L [facility] CO2 [Moles/Vol] 30.6 mmol/L 21.0 - 32.0 mmol/L [facility] Creatinine [Mass/Vol] 1.09 mg/dL 0.70 - 1.30 mg/dL [facility] GFR/1.73 sq M.predicted CKD-EPI (S/P/Bld) [Vol rate/Area] >60 >=60 mL/min/1.73m 2 [facility] Glucose [Mass/Vol] 107 mg/dL High 74 - 106 mg/dL [facility] Interpretation and review of laboratory results Abnormal [facility] Potassium [Moles/Vol] 3.6 mmol/L 3.5 - 5.1 mmol/L [facility] Sodium [Moles/Vol] 142 mmol/L 136 - 145 mmol/L [facility] TBH EGFR-NON AF MARSHALLESE >60 >=6 0 mL/min/1.73m 2 [facility] Urea nitrogen [Mass/Vol] 9 mg/dL 7.0 - 18.0 mg/dL [facility] Urea nitrogen/Creatinine [Mass ratio] 8.3 mg/mg [facility] UPPER RESPIRATORY CULTUREon 09-14-2024 UPPER RESPIRATORY CULTURE Upper Respiratory Culture [facility] UPPER RESPIRATORY CULTURE Routine respiratory anil [facility] UPPER RESPIRATORY CULTURE Performed at: [facility]ER RESPIRATORY CULTURE [address] [place], [place] [id number] [facility] UPPER RESPIRATORY CULTURE Protection Chief Industrial Plant: Juan Francisco [facility] PhD, Phone: [phone] [facility] MLR HEMOGLOBIN A1Con 025 Glucose [Mass/Vol] 97 mg/dL [facility] HbA1c (Bld) [Mass fraction] 5 % 4.5 - 6.2 % [facility] Comment on above: ADA RECOMMENDED LIMI T 4.0 - 6.0 ADA THERAPEUTIC TARGET < 7.0 ACTION SUGGESTED > 7.0 [facility] ALL LIPID PROFILE (FASTING)o n 08-13-2024 CHOL HDL RATIO 2.9 [facility] Comment on above: 3.3 - 4.4 LOW RISK 4.4 - 7.1 AVERAGE RISK 7.1 - 11.0 MODERATE RISK >11.0 HIGH RISK Cholesterol [Mass/Vol] 138 mg/dL NINF - 200 mg/dL [facility] Cholesterol in HDL [Mass/Vol] 47 mg/dL 40 - 60 mg/dL [facility] Comment on above: > or =60 mg/dl - LOW CARDIOVASCULAR RISK <40 mg/dl - HIGH CARDIOVASCULAR RISK Magnesium [Mass/Vol] 76.4 mg/dL [facility] Comment on above: <100 mg/dl OPTIMAL 100-129 mg/dl NEAR OR ABOVE OPTIMAL 130-159 mg/dl BORDERLINE HIGH 160-189 mg/dl HIGH >190 mg/dl VERY HIGH Magnesium [Mass/Vol] 14.6 mg/dL [facility] Triglyceride [Mass/Vol] 73 mg/dL NINF - 150 mg/dL [facility] ALL THYROID STIM HORMONEon 0 08-13-2024 TSH Qn 2.102 m[IU]/L [facility] CMP (CMP) (FOR REMOTE FH C USE)on 08-13-2024 Albumin [Mass/Vol] 3.3 g/dL Low 3.4 - 5.0 g/dL [facility] ALBUMIN GLOBULIN RATIO 1 [facility] ALP [Catalytic activity/Vol] 93 U/L 46 - 116 U/L [facility] ALT [Catalytic activity/Vol] 38 U/L 16 - 63 U/L [facility] Anion gap [Moles/Vol] 7.8 mmol/L [facility] AST [Catalytic activity/Vol] 19 U/L 15 - 37 U/L [facility] Bilirubin [Mass/Vol] 0.7 mg/dL 0.2 - 1 .0 mg/dL [facility] Calcium [Mass/Vol] 8.3 mg/dL Low 8.5 - 10. 1 mg/dL [facility] Chloride [Moles/Vol] 106 mmol/L 98 - 10 7 mmol/L [facility] CO2 [Moles/Vol] 32.1 mmol/L High 21.0 - 32.0 mmol/L [facility] Creatinine [Mass/Vol] 1.14 mg/dL 0.70 - 1.30 mg/dL [facility] GFR/1.73 sq M.predicted CKD-EPI (S/P/Bld) [Vol rate/Area] >60 >=60 mL/min/1.73m 2 [facility] Globulin (S) [Mass/Vol] 3.3 g/dL [facility] Glucose [Mass/Vol] 119 mg/dL High 74 - 106 mg/dL [facility] Interpretation and review of laboratory results Abnormal [facility] Potassium [Moles/Vol] 3.9 mmol/L 3.5 - 5.1 mmol/L [facility] Protein [Mass/Vol] 6.6 g/dL 6.4 - 8.2 g/dL [facility] Sodium [Moles/Vol] 142 mmol/L 136 - 145 mmol/L [facility] TBH EGFR-NON AF MARSHALLESE >60 >=6 0 mL/min/1.73m 2 [facility] Urea nitrogen [Mass/Vol] 13 mg/dL 7.0 - 18.0 mg/dL [facility] Urea nitrogen/Creatinine [Mass ratio] 11.4 mg/mg [facility] No Panel Informationon 08-13 [facility] Cytologyon 06-17-2024 Cytology Normal [facility] Comment on above: Result Comment: [facility] [employer] [address] [place] [address] Cytology Consultation Patient Name:RENO ABREU:1970 (Age: 53)Gender:MTaken:06/17/2024eported:06/18/2024 14:16Physician(s):Lida Suh M.D. ([phone])Copy To: Rec. #:[id number]: #[id number] Final Cytologic Diagnosis Urine: Negative for high-grade urothelial cell carcinoma. 06/18/2024 Interpretation performed at [facility], [address] [place] [address], License number: [id number].Electronically Signed Out By Trevin Mallory MD Clinical History Malignant neoplasm of overlapping sites of bladder ([facility]) (C67.8) Gross Description Received was 50 mL of cloudy yellow fluid labeled as Margie, urine .Preservative added. 25 mL used for Cytology. See [employer] report. Source of Specimen Urine Non TEST DEVELOPMENT ENGINEER [employer] Fee Code(s): 1; 06918 Reference Lab Test IDon 12-0 UROVYSION FOR BLADDER CANCER SEE COMMENTS 06/25/2024 12:33 PM Normal [facility] Comment on above: Result Comment: NOTE Test [...] a locus specific probe for 9p21 ([employer] [place], [place]). This test has been modified from the commercial relationship manager's instructions. Its performance characteristics were determined by [facility] in a manner consistent with CLIA requirements. This test has not been cleared or approved by the U.S. Food and Drug Administration. Reason for Referral Evaluate for urothelial carcinoma. Specimen Varies Source Urine, NOS Released By See Note Calixto Gross M.D. Test Performed by: [place] [address] Protection Chief Industrial Plant: Te Moreau Ph.D.; CLIA# [id number] Performed By: #### 3 0896-5 ####[facility] ([id number])[address] [place] [address] Cytologyon 03-18-2024 Cytology Normal [facility] Comment on above: Result Comment: [facility] [employer] [facility] [address] [place] [address] Cytology Consultation Patient Name:RENO ABREU:1970 (Age: 53)Gender:MTaken:4Reported:03/19/2024 17:33Physician(s):Lida Suh M.D. ([phone])Copy To: Rec. #:[id number]: #[id number] Final Cytologic Diagnosis Urine clean catch: Negative for high-grade urothelial cell carcinoma. ao/03/19/2024 Interpretation performed at [facility], [address], [place] [address], License number: [id number].Electronically Signed Out By George Smith MD Clinical History Malignant neoplasm of overlapping sites of bladder ([facility]) C67.8 Gross Description Received was 70mL of cloudy nannette fluid unfixed labeled as Margie, Urine clean catch . 35mL used for Cytology. See [employer] report. Source of Specimen Urine clean catch Non TEST DEVELOPMENT ENGINEER [employer] Fee Code(s): 1; 12239 Reference Lab Test IDon 09-0 UROVYSION FOR BLADDER CANCER SEE COMMENTS 03/26/2024 08:20 AM Normal [facility] Comment on above: Result Comment: NOTE Test [...] and a locus specific probe for 9p21 ([employer] [place], [place]). This test has been modified from the commercial relationship manager's instructions. Its performance characteristics were determined by [facility] in a manner consistent with CLIA requirements. This test has not been cleared or approved by the U.S. Food and Drug Administration. Reason for Referral Evaluate for urothelial carcinoma. Specimen Varies Source Urine, NOS Released By Adrianna Proctor M.D. Test Performed by: [facility] [place] [address] Protection Chief Industrial Plant: Te Moreau Ph.D.; CLIA# [id number] Performed By: #### 3 0896-5 ####[facility] ([id number])[address] [place] [address] Prostate specific Ag [Mass/V ol]on 03-09-2024 PROSTATIC SPEC ANT 2.12 ng/mL Normal 0.00-4.00 [facility] Comment on above: Result Comment: The method used for this test is [employer] [place] DXI chemiluminescent immunoassay. Values obtained by different assay methods cannot be used interchangeably. Performed By: #### 2 857-1 #### [facility] ([id number]) [address], [address] [place] [address] URINE CULTUREon 03-09-2024 Bacteria identified Cx Nom (U) CULTURE RESULTS <10,000 ORGANISMS/ML NORMAL URO GENITAL ANIL Normal [facility] Comment on above: Performed By: #### 6 30-4 #### [facility] ([id number]) [address] [address] [place] [address] Measure post void residualon 01-29-2024 Volume 37ml [facility] BASIC METABOLIC PANLon 12-01 Anion gap [Moles/Vol] 6 mmol/L Normal 5-15 [facility] Comment on above: Performed By: #### C BCA, BMP, 04583-7, 2777-1 #### [facility] ([id number]) [address], [address] [place] [address] Calcium [Mass/Vol] 8.0 mg/dL Low 8.5-10.5 [facility] Comment on above: Performed By: #### C BCA, BMP, 67758-4, 2777-1 #### [facility] ([id number]) [address], [address] [place] [address] Chloride [Moles/Vol] 104 mmol/L Normal 98-109 [facility] Comment on above: Performed By: #### C ALEXYS LOPEZ, , 2776-07 #### [facility] ([id number]) [address], [facility] [address] [place] [address] CO2 [Moles/Vol] 28 mmol/L Normal 22-32 [facility] Comment on above: Performed By: #### C JOHN, [facility], , 2776-07 #### [facility] ([id number]) [address], [address] [address] Creatinine [Mass/Vol] 0.91 mg/dL Normal 0.60-1.30 [facility] Comment on above: Result Comment: METH OD TRACEABLE TO IDMS STANDARD Performed By: #### C ALEXYS LOPEZ, , 2776-07 #### [facility] ([id number]) [address] [address] eGFR (CKD-EPI) NON-RACE DEPENDENT >90 Normal >59 [facility] Comment on above: Result Comment: Reported eGFR is based on the CKD-EPI 2020 equation that does not use a race coefficient. Performed By: #### C ALEXYS LOPEZ, , 2776-07 #### [facility] ([id number]) [address] [address] Glucose [Mass/Vol] 112 mg/dL High 65-99 [facility] Comment on above: Performed By: #### C JOHN, BMP, , 2776-07 #### [facility] ([id number]) [address], [facility] [address] [place] [address] Potassium [Moles/Vol] 3.8 mmol/L Normal 3.5-5.0 [facility] Comment on above: Performed By: #### C JOHN, BMP, , 2776-07 #### [facility] ([id number]) [address], [address] [place] [address] Sodium [Moles/Vol] 138 mmol/L Normal 134-146 [facility] Comment on above: Performed By: #### C JOHN, BMP, , 2776-07 #### [facility] ([id number]) [address], [address] [place] [address] Urea nitrogen [Mass/Vol] 15 mg/dL Normal 5-23 [facility] Comment on above: Performed By: #### C JOHN, BMP, , 2776-07 #### [facility] ([id number]) [address], [address] [place] [address] CBC AND AUTO DIFFon 05-20-20 24 ABSOLUTE BASOPHIL 0.0 X10E9/L Normal 0.0-0.2 [facility] Comment on above: Performed By: #### C JOHN, BMP, , 2776-07 #### [facility] ([id number]) [address], [address] [place] [address] ABSOLUTE NEUTROPHIL 3.7 X10E9/L Normal 1.5-6.6 [facility] Comment on above: Performed By: #### C JOHN, BMP, , 2776-07 #### [facility] ([id number]) [address], [address] [place] [address] Basophils/100 WBC (Bld) 0.4 % Normal [facility] Comment on above: Performed By: #### C JONH, BMP, , 2776-07 #### [facility] ([id number]) [address], [address] [place] [address] Eosinophils (Bld) [#/Vol] 0.2 10*3/uL Normal 0.0-0.4 [facility] Comment on above: Performed By: #### C JOHN, BMP, , 2776-07 #### [facility] ([id number]) [address], [address] [place] [address] Eosinophils/100 WBC (Bld) 3.5 % Normal [facility] Comment on above: Performed By: #### C BCA, BMP, , 2776-07 #### [facility] ([id number]) [address], [facility] [address] [place] [address] Erythrocyte distribution width (RBC) [Ratio] 12.5 % Normal 11.5-15.0 [facility] Comment on above: Performed By: #### C JOHN, BMP, , 2776-07 #### [facility] ([id number]) [address] [address] [place] [address] Hematocrit (Bld) [Volume fraction] 40.6 % Normal 39-49 [facility] Comment on above: Performed By: #### C JOHN, BMP, , 2776-07 #### [facility] ([id number]) [address], [facility] [address] [place] [address] Hemoglobin (Bld) [Mass/Vol] 13.9 g/dL Normal 13.0-17.0 [facility] Comment on above: Performed By: #### C JOHN, BMP, , 2776-07 #### [facility] ([id number]) [address] [address] [place] [address] Lymphocytes (Bld) [#/Vol] 1.5 10*3/uL Normal 1.0-3.5 [facility] Comment on above: Performed By: #### C BCA, BMP, , 2776-07 #### [facility] ([id number]) [address] [address] [place] [address] Lymphocytes/100 WBC (Bld) 25.2 % Normal [facility] Comment on above: Performed By: #### C JOHN, BMP, , 2776-07 #### [facility] ([id number]) [address], [address] [place] [address] MCH (RBC) [Entitic mass] 30.6 pg Normal 27-34 [facility] Comment on above: Performed By: #### C JOHN, BMP, , 2776-07 #### [facility] ([id number]) [address] [place] [address] MCHC (RBC) [Mass/Vol] 34.3 g/dL Normal 32-36 [facility] Comment on above: Performed By: #### C JOHN, BMP, , 2776-07 #### [facility] ([id number]) [address], [address] [place] [address] MCV (RBC) [Entitic vol] 89 fL Normal 80-[address] [facility] Comment on above: Performed By: #### C JOHN, BMP, , 2776-07 #### [facility] ([id number]) [address], [address] [place] [address] Monocytes (Bld) [#/Vol] 0.5 10*3/uL Normal 0-0.9 [facility] Comment on above: Performed By: #### C JOHN, BMP, , 2776-07 #### [facility] ([id number]) [address], [address] [place] [address] Monocytes/100 WBC (Bld) 7.9 % Normal [facility] Comment on above: Performed By: #### C BCA, BMP, , 2776-07 #### [facility] ([id number]) [address], [address] [place] [address] Neutrophils/100 WBC (Bld) 63.0 % Normal [facility] Comment on above: Performed By: #### C JOHN, BMP, , 2776-07 #### [facility] ([id number]) [address], [address] [place] [address] Platelet mean volume (Bld) [Entitic vol] 7.8 fL Normal 7-12 [facility] Comment on above: Performed By: #### Richa LOPEZ, BMP, , 2776-07 #### [facility] ([id number]) [address], [address] [place] [address] Platelets (Bld) [#/Vol] 193 10*3/uL Normal 150-450 [facility] Comment on above: Performed By: #### Richa LOPEZ, BMP, , 2776-07 #### [facility] ([id number]) [address], [address] [place] [address] RBC COUNT 4.55 X10E12/L Normal 4.10-5.70 [facility] Comment on above: Performed By: #### C JOHN, BMP, , 2776-07 #### [facility] ([id number]) [address], [address] [place] [address] WBC (Bld) [#/Vol] 5.9 10*3/uL Normal 4.0-11.0 [facility] Comment on above: Performed By: #### C JOHN, BMP, , 2776-07 #### [facility] ([id number]) [address], [address] [place] [address] MAGNESIUMon 12-02-2023 Magnesium [Mass/Vol] 1.8 mg/dL Normal 1.8-2.6 [facility] Comment on above: Performed By: #### C JOHN, BMP, , 2776-07 #### [facility] ([id number]) [address], [address] [place] [address] PHOSPHORUSon 12-02-2023 Phosphate [Mass/Vol] 3.2 mg/dL Normal 2.4-4.9 [facility] Comment on above: Performed By: #### C JOHN, BMP, , 2776-07 #### [facility] ([id number]) [address], [facility] [address] [place] [address] BASIC METABOLIC PANLon 11-30 Anion gap [Moles/Vol] 6 mmol/L Normal 5-15 [facility] Comment on above: Performed By: #### C BCA, BMP, , 2776-07 #### [facility] ([id number]) [address], [facility] [address] [place] [address] Calcium [Mass/Vol] 8.2 mg/dL Low 8.5-10.5 [facility] Comment on above: Performed By: #### C BCA, BMP, , 2776-07 #### [facility] ([id number]) [address], [facility] [address] [place] [address] Chloride [Moles/Vol] 104 mmol/L Normal 98-109 [facility] Comment on above: Performed By: #### C BCA, BMP, , 2776-07 #### [facility] ([id number]) [address], [facility] [address] [place] [address] CO2 [Moles/Vol] 30 mmol/L Normal 22-32 [facility] Comment on above: Performed By: #### C BCA, BMP, , 2776-07 #### [facility] ([id number]) [address], [address] [place] [address] Creatinine [Mass/Vol] 0.90 mg/dL Normal 0.60-1.30 [facility] Comment on above: Result Comment: METH OD TRACEABLE TO IDMS STANDARD Performed By: #### C BCA, BMP, , 2776-07 #### [facility] ([id number]) [address], [facility] [address] [place] [address] eGFR (CKD-EPI) NON-RACE DEPENDENT >90 Normal >59 [facility] Comment on above: Result Comment: Reported eGFR is based on the CKD-EPI 2020 equation that does not use a race coefficient. Performed By: #### C ALEXYS LOPEZ, , 2776-07 #### [facility] ([id number]) [address], [facility] [address] [place] [address] Glucose [Mass/Vol] 88 mg/dL Normal 65-99 [facility] Comment on above: Performed By: #### C JOHN BMP, , 2776-07 #### [facility] ([id number]) [address] [address] [place] [address] Potassium [Moles/Vol] 3.6 mmol/L Normal 3.5-5.0 [facility] Comment on above: Performed By: #### C JOHN BMP, , 2776-07 #### [facility] ([id number]) [address] [address] [place] [address] Sodium [Moles/Vol] 140 mmol/L Normal 134-146 [facility] Comment on above: Performed By: #### C JOHN BMP, , 2776-07 #### [facility] ([id number]) [address] [address] [place] [address] Urea nitrogen [Mass/Vol] 10 mg/dL Normal 5-23 [facility] Comment on above: Performed By: #### C JOHN, BMP, , 2776-07 #### [facility] ([id number]) [address] [address] [place] [address] CBC AND AUTO DIFFon 05-19-20 24 ABSOLUTE BASOPHIL 0.0 X10E9/L Normal 0.0-0.2 [facility] Comment on above: Performed By: #### C JOHN, BMP, , 2776-07 #### [facility] ([id number]) [address], [address] [place] [address] ABSOLUTE NEUTROPHIL 4.2 X10E9/L Normal 1.5-6.6 [facility] Comment on above: Performed By: #### C JOHN, BMP, , 2776-07 #### [facility] ([id number]) [address], [address] [place] [address] Basophils/100 WBC (Bld) 0.5 % Normal [facility] Comment on above: Performed By: #### C JOHN, BMP, , 2776-07 #### [facility] ([id number]) [address], [address] [place] [address] Eosinophils (Bld) [#/Vol] 0.2 10*3/uL Normal 0.0-0.4 [facility] Comment on above: Performed By: #### C JOHN, BMP, , 2776-07 #### [facility] ([id number]) [address], [address] [place] [address] Eosinophils/100 WBC (Bld) 2.8 % Normal [facility] Comment on above: Performed By: #### C JOHN, BMP, , 2776-07 #### [facility] ([id number]) [address], [address] [place] [address] Erythrocyte distribution width (RBC) [Ratio] 12.9 % Normal 11.5-15.0 [facility] Comment on above: Performed By: #### C JOHN, BMP, , 2776-07 #### [facility] ([id number]) [address], [address] [place] [address] Hematocrit (Bld) [Volume fraction] 43.1 % Normal 39-49 [facility] Comment on above: Performed By: #### C JOHN, BMP, , 2776-07 #### [facility] ([id number]) [address], [address] [place] [address] Hemoglobin (Bld) [Mass/Vol] 14.9 g/dL Normal 13.0-17.0 [facility] Comment on above: Performed By: #### C BCA, BMP, , 2776-07 #### [facility] ([id number]) [address], [facility] [address] [place] [address] Lymphocytes (Bld) [#/Vol] 1.5 10*3/uL Normal 1.0-3.5 [facility] Comment on above: Performed By: #### C JOHN, BMP, , 2776-07 #### [facility] ([id number]) [address], [address] [place] [address] Lymphocytes/100 WBC (Bld) 23.7 % Normal [facility] Comment on above: Performed By: #### Richa BCA, BMP, , 2776-07 #### [facility] ([id number]) [address], [address] [place] [address] MCH (RBC) [Entitic mass] 30.8 pg Normal 27-34 [facility] Comment on above: Performed By: #### Richa BCA, BMP, , 2776-07 #### [facility] ([id number]) [address], [address] [place] [address] MCHC (RBC) [Mass/Vol] 34.5 g/dL Normal 32-36 [facility] Comment on above: Performed By: #### C BCA, BMP, , 2776-07 #### [facility] ([id number]) [address], [address] [place] [address] MCV (RBC) [Entitic vol] 89 fL Normal 80-[address] [facility] Comment on above: Performed By: #### C JOHN, BMP, , 2776-07 #### [facility] ([id number]) [address], [address] [place] [address] Monocytes (Bld) [#/Vol] 0.5 10*3/uL Normal 0-0.9 [facility] Comment on above: Performed By: #### C BCA, BMP, , 2776-07 #### [facility] ([id number]) [address], [address] [place] [address] Monocytes/100 WBC (Bld) 8.0 % Normal [facility] Comment on above: Performed By: #### C BCA, BMP, , 2776-07 #### [facility] ([id number]) [address], [address] [place] [address] Neutrophils/100 WBC (Bld) 65.0 % Normal [facility] Comment on above: Performed By: #### Richa BCA, BMP, , 2776-07 #### [facility] ([id number]) [address], [address] [place] [address] Platelet mean volume (Bld) [Entitic vol] 7.8 fL Normal 7-12 [facility] Comment on above: Performed By: #### C BCA, BMP, , 2776-07 #### [facility] ([id number]) [address], [address] [place] [address] Platelets (Bld) [#/Vol] 193 10*3/uL Normal 150-450 [facility] Comment on above: Performed By: #### C BCA, BMP, , 2776-07 #### [facility] ([id number]) [address], [address] [place] [address] RBC COUNT 4.83 X10E12/L Normal 4.10-5.70 [facility] Comment on above: Performed By: #### C JOHN, BMP, 79182-2, 2777-1 #### [facility] ([id number]) [address], [address] [place] [address] WBC (Bld) [#/Vol] 6.4 10*3/uL Normal 4.0-11.0 [facility] Comment on above: Performed By: #### C JOHN, BMP, 13379-0, 2777-1 #### [facility] ([id number]) [address], [address] [place] [address] Complete Blood Count Auto Di ffon 12-01-2023 Basophils (Bld) [#/Vol] 0.0 10*3/uL Normal 0.0-0.2 [facility] Comment on above: Result Comment: PERF ORMED BY: [place] [address] PATHOLOGIST [employer] HIREN KAPLAN M.D. Performed By: #### C BC, CMP #### [address] Basophils/100 WBC (Bld) 0.6 % Normal . T marci [facility] Comment on above: Performed By: #### C BC, CMP #### [place] [address] [place] Eosinophils (Bld) [#/Vol] 0.2 10*3/uL Normal 0.0-0.45 [facility] Comment on above: Performed By: #### C BC, CMP #### [place] [address] [place] Eosinophils/100 WBC (Bld) 3.0 % Normal . [facility] Comment on above: Performed By: #### C BC, CMP #### [address] Erythrocyte distribution width (RBC) [Ratio] 12.9 % Normal 12.0-14.8 [facility] Comment on above: Performed By: #### C BC, CMP #### [address] Hematocrit (Bld) [Volume fraction] 43.0 % Normal 38.8-50.0 [facility] Comment on above: Performed By: #### C BC, CMP #### [address] Hemoglobin (Bld) [Mass/Vol] 14.8 g/dL Normal 13.0-17.0 [facility] Comment on above: Performed By: #### C BC, CMP #### [address] Lymphocytes (Bld) [#/Vol] 1.8 10*3/uL Normal 1.00-4.8 [facility] Comment on above: Performed By: #### C BC, CMP #### [address] Lymphocytes/100 WBC (Bld) 26.4 % Normal . [facility] Comment on above: Performed By: #### C BC, CMP #### [address] MCH (RBC) [Entitic mass] 30.8 pg Normal 27.5-35.2 [facility] Comment on above: Performed By: #### C BC, CMP #### [address] MCV (RBC) [Entitic vol] 89.5 fL Normal 83.5-101 T [facility] Comment on above: Performed By: #### C BC, CMP #### [address] Mean Corpuscular HGB Conc 34.4 g/dL Normal 32.5-35.6 [facility] Comment on above: Performed By: #### C BC, CMP #### [address] Monocytes (Bld) [#/Vol] 0.6 10*3/uL Normal 0.0-0.8 [facility] Comment on above: Performed By: #### C BC, CMP #### [facility] [address] [place] [address] [place] Monocytes/100 WBC (Bld) 18.12 % Normal 0.00-20.00 [facility] Comment on above: Performed By: #### C BC, CMP #### [facility] [address] [place] [address] [place] Monocytes/100 WBC (Bld) 8.8 % Normal . [facility] Comment on above: Performed By: #### C BC, CMP #### [facility] [address] [place] [address] [place] Neutrophils (Bld) [#/Vol] 4.1 10*3/uL Normal 1.8-7.7 [facility] Comment on above: Performed By: #### C BC, CMP #### [facility] [address] [place] [address] [place] Neutrophils/100 WBC (Bld) 61.2 % Normal . [facility] Comment on above: Performed By: #### C BC, CMP #### [facility] [address] [place] [address] [place] NRBC% 0.1 /100{WBC} Normal 0-0.5 [facility] Comment on above: Performed By: #### C BC, CMP #### [facility] [address] [place] [address] [place] Platelet mean volume (Bld) [Entitic vol] 7.8 fL Normal 6.6-10.1 [facility] Comment on above: Performed By: #### C BC, CMP #### [facility] [address] [place] [address] [place] Platelets (Bld) [#/Vol] 229 10*3/uL Normal 150-450 [facility] Comment on above: Performed By: #### C BC, CMP #### [facility] [address] [place] [address] [place] RBC (Bld) [#/Vol] 4.80 10*6/uL Normal 3.90-5.60 [facility] Comment on above: Performed By: #### C BC, CMP #### [address] WBC (Bld) [#/Vol] 6.7 10*3/uL Normal 4.1-10.5 [facility] Comment on above: Performed By: #### C BC, CMP #### [address] Comprehensive Metabolic Pane demetrius 12-01-2023 Albumin [Mass/Vol] 3.7 g/dL Normal 3.5-5.7 [facility] Comment on above: Performed By: #### C BC, CMP #### [address] Albumin/Globulin [Mass ratio] 1.4 {ratio} Normal [facility] Comment on above: Performed By: #### C BC, CMP #### [address] ALP [Catalytic activity/Vol] 89 U/L Normal 34-104 [facility] Comment on above: Performed By: #### C BC, CMP #### [address] ALT [Catalytic activity/Vol] 21 U/L Normal 7-52 [facility] Comment on above: Performed By: #### C BC, CMP #### [address] Anion gap [Moles/Vol] 8.7 mmol/L Normal 6.0-15.0 [facility] Comment on above: Performed By: #### C BC, CMP #### [address] AST [Catalytic activity/Vol] 20 U/L Normal 13-39 [facility] Comment on above: Performed By: #### C BC, CMP #### [address] Bilirubin [Mass/Vol] 0.5 mg/dL Normal 0.3-1.0 [facility] Comment on above: Performed By: #### C BC, CMP #### [address] Calcium [Mass/Vol] 8.6 mg/dL Normal 8.6-10.3 [facility] Comment on above: Performed By: #### C BC, CMP #### [address] Chloride [Moles/Vol] 105 mmol/L Normal 98-107 [facility] Comment on above: Performed By: #### C BC, CMP #### [address] CO2 [Moles/Vol] 26.9 mmol/L Normal 21.0-31.0 [facility] Comment on above: Performed By: #### C BC, CMP #### [address] Creatinine [Mass/Vol] 0.91 mg/dL Normal 0.70-1.30 [facility] Comment on above: Performed By: #### C BC, CMP #### [address] Creatinine Clr Calc Pharmacy 127.55 Normal [facility] Comment on above: Result Comment: PERF ORMED BY: [place] [address] PATHOLOGIST [employer] HIREN KAPLAN M.D. Performed By: #### C BC, CMP #### [address] GFR/1.73 sq M.predicted MDRD (S/P/Bld) [Vol rate/Area] mL/min/{1.73_m2} Normal [facility] Comment on above: Performed By: #### C BC, CMP #### [address] Globulin (S) [Mass/Vol] 2.6 g/dL Normal T [facility] Comment on above: Performed By: #### C BC, CMP #### [address] Glucose [Mass/Vol] 101 mg/dL High 70-100 [facility] Comment on above: Result Comment: [facility] Glucose Reference Range is dependent on time and content of last meal. Glucose of more than 200 mg/dL in a nonstressed, ambulatory subject supports the diagnosis of Diabetes Mellitus. ADA recommended reference range Performed By: #### C BC, CMP #### [facility] [address] Potassium [Moles/Vol] 3.6 mmol/L Normal 3.5-5.1 [facility] Comment on above: Performed By: #### C BC, CMP #### [address] Protein [Mass/Vol] 6.3 g/dL Low 6.4-8.9 [facility] Comment on above: Performed By: #### C BC, CMP #### [address] Sodium [Moles/Vol] 137 mmol/L Normal 136-145 [facility] Comment on above: Performed By: #### C BC, CMP #### [address] Urea nitrogen [Mass/Vol] 14 mg/dL Normal 7-25 [facility] Comment on above: Performed By: #### C BC, CMP #### [place] [address] [place] Dipstick and Microscopicon 0 12-01-2023 Appearance (U) Turbid Critically abnormal Clear [facility] Comment on above: Order Comment: Name Collection Type:: Clean-Voided Midstream Performed By: #### A DDONUAPLUS, CUU #### [address] Bacteria,Urine None Seen Normal None Seen [facility] Comment on above: Order Comment: Name Collection Type:: Clean-Voided Midstream Result Comment: PERF ORMED BY: [place] [address] PATHOLOGIST [employer] HIREN KAPLAN M.D. Performed By: #### A DDONUAPLUS, CUU #### [facility] [address] [place] [address] [place] Bilirubin,Urine Normal Negative [facility] Comment on above: Order Comment: Name Collection Type:: Clean-Voided Midstream Result Comment: Unab le to obtain accurate result due to color interference. Performed By: #### A DDONUAPLUS, CUU #### [facility] [address] [place] [id number] [facility] Color (U) Red Critically abnormal Yellow [facility] Comment on above: Order Comment: Name Collection Type:: Clean-Voided Midstream Performed By: #### A DDONUAPLUS, CUU #### [address] Glucose Ql (U) Normal Normal [facility] Comment on above: Order Comment: Name Collection Type:: Clean-Voided Midstream Result Comment: Unab le to obtain accurate result due to color interference. Performed By: #### A DDONUAPLUS, CUU #### [place] [id number] [facility] Ketones Ql (U) Normal Negative [facility] Comment on above: Order Comment: Name Collection Type:: Clean-Voided Midstream Result Comment: Unab le to obtain accurate result due to color interference. Performed By: #### A DDONUAPLUS, CUU #### [place] [id number] [place] Leukocyte esterase Test strip Ql (U) Normal Negative [facility] Comment on above: Order Comment: Name Collection Type:: Clean-Voided Midstream Result Comment: Unab le to obtain accurate result due to color interference. Performed By: #### A DDONUAPLUS, CUU #### [place] [id number] [place] Nitrite,Urine Normal Negative [facility] Comment on above: Order Comment: Name Collection Type:: Clean-Voided Midstream Result Comment: Unab le to obtain accurate result due to color interference. Performed By: #### A DDONUAPLUS, CUU #### [facility] [address] [place] [address] [place] Occult Blood,Urine Normal Negative [facility] Comment on above: Order Comment: Name Collection Type:: Clean-Voided Midstream Result Comment: Unab le to obtain accurate result due to color interference. Performed By: #### A DDONUAPLUS, CUU #### [facility] [address] [place] [address] [place] pH,Urine Normal 5.0-9.0 [facility] Comment on above: Order Comment: Name Collection Type:: Clean-Voided Midstream Result Comment: Unab le to obtain accurate result due to color interference. Performed By: #### A DDONUAPLUS, CUU #### [place] [address] [place] Protein,Urine Normal Negative [facility] Comment on above: Order Comment: Name Collection Type:: Clean-Voided Midstream Result Comment: Unab le to obtain accurate result due to color interference. Performed By: #### A DDONUAPLUS, CUU #### [place] [address] [place] RBC,Urine Innumerable High 0-4 [facility] Comment on above: Order Comment: Name Collection Type:: Clean-Voided Midstream Performed By: #### A DDONUAPLUS, CUU #### [place] [address] [place] Specificy [place],Urine 1.010 Normal 1.001-1.030 [facility] Comment on above: Order Comment: Name Collection Type:: Clean-Voided Midstream Performed By: #### A DDONUAPLUS, CUU #### [place] [address] [place] Squamous Epithelial Cell,Urine None Seen Normal 0-2 [facility] Comment on above: Order Comment: Name Collection Type:: Clean-Voided Midstream Performed By: #### A DDONUAPLUS, CUU #### [place] [address] [place] Urobilinogen,Urine Normal Normal [facility] Comment on above: Order Comment: Name Collection Type:: Clean-Voided Midstream Result Comment: Unab le to obtain accurate result due to color interference. Performed By: #### A DDONUAPLUS, CUU #### [address] WBC,Urine 1-2 Normal 0-4 [facility] Comment on above: Order Comment: Name Collection Type:: Clean-Voided Midstream Performed By: #### A DDONUAPLUS, CUU #### [place] [id number] [facility] MAGNESIUMon 12-01-2023 Magnesium [Mass/Vol] 1.9 mg/dL Normal 1.8-2.6 [facility] Comment on above: Performed By: #### C BCA, BMP, , 2777-1 #### [facility] ([id number]) [address], [address] [place] [address] PHOSPHORUSon 12-01-2023 Phosphate [Mass/Vol] 3.3 mg/dL Normal 2.4-4.9 [facility] Comment on above: Performed By: #### C BCA, BMP, , 1 #### [facility] ([id number]) [address], [address] [place] [address] Partial Thromboplastin Timeo 12-01-2023 aPTT Coag (Bld) [Time] 31.9 s Normal 25.1-36.5 Th e [facility] Comment on above: Order Comment: REDRA W: PRIOR SAMPLE QNS Result Comment: A he matocrit value greater than 55% may lead to inaccurate results in coagulation testing. Patients having hematocrit values >55% require a special collection tube for coagulation studies. Please contact the laboratory at [phone] for redraw instructions. PERFORMED BY: [place] [id number] PATHOLOGIST [employer] HIREN KAPLAN M.D. Performed By: #### P TT, PT #### [address] Prothrombin Time INRon 11-30 INR Coag (PPP) [Relative time] 1.0 {INR} Normal [facility] Comment on above: Order Comment: [...] Performed By: #### P TT, PT #### [address] PT Coag (PPP) [Time] 11.9 s Normal 9.0-12.9 [facility] Comment on above: Order Comment: REDRA W: PRIOR SAMPLE QNS Result Comment: A he matocrit value greater than 55% may lead to inaccurate results in coagulation testing. Patients having hematocrit values >55% require a special collection tube for coagulation studies. Please contact the laboratory at [phone] for redraw instructions. Performed By: #### P TT, PT #### [address] Urine Cultureon 12-01-2023 Bacteria identified Cx Nom (U) No Growth 2 Days PERFORMED BY: [place] [address] PATHOLOGIST [employer] HIREN KAPLAN M.D. Normal [facility] Comment on above: Performed By: #### A DDONUAPLUS, CUU #### [address] [place] BONE SCAN WHOLE BODYon NM [...] Diaz MD on 11/22/2023 9:16 PM Normal [facility] Cytologyon 11-13-2023 Cytology Normal [facility] Comment on above: Result Comment: [facility] [address] [place] [address] Cytology Consultation Patient Name:RENO ABREU:1970 (Age: 52)Gender:MTaken:4Reported:11/15/2023 16:54Physician(s):Lida Suh M.D. ([phone])Copy To: Rec. #:[id number]: #[id number] Final Cytologic Diagnosis Urine: Negative for high-grade urothelial cell carcinoma. nxk/11/15/2023 [place] [address], License number: [id number].Electronically Signed Out By Álvaro Yanez MD Clinical History Malignant neoplasm of overlapping sites of bladder (CMS-HCC) (C67.8). History of low grade urothelial cancer. Gross Description Received was 50 mL of yellow fluid in preservative labeled as Margie, urine, clean catch midstream . 40 mL used for Cytology. See UroVysion report. Source of Specimen Urine Non TEST DEVELOPMENT ENGINEER ThinPrep Fee Code(s): 1; 99317 Reference Lab Test IDon 05-0 UROVYSION FOR BLADDER CANCER SEE COMMENTS 11/21/2023 08:19 AM Normal [facility] Comment on above: Result Comment: NOTE Test [...] and a locus specific probe for 9p21 ([employer] [place], [place]). This test has been modified from the commercial relationship manager's instructions. Its performance characteristics were determined by [facility] in a manner consistent with CLIA requirements. This test has not been cleared or approved by the U.S. Food and Drug Administration. Reason for Referral Evaluate for urothelial carcinoma. Specimen Varies Source Urine, NOS Released By Adrianna Proctor M.D. Test Performed by: [address] [address] [employer]: Bear Mares M.D. Ph.D.; CLIA# [id number] URINE CULTUREon 11-13-2023 Bacteria identified Cx Nom (U) CULTURE RESULTS NO GROWTH AT <1000 CFU/mL Normal [facility] Comment on above: Performed By: #### 6 30-4 #### [facility] ([id number]) [address] [place] [address], [address] [place] [address] Surgical Pathologyon [address] [facility] Comment on above: Result Comment: [facility] [employer] [facility] [address] [place] [address] Surgical Pathology Consultation Patient Name:RENO ABREU:1970 (Age: 52)Gender:MTaken:10/30/2023eported:4Physician(s):Anthony Suh M.D. ([phone])Copy To: Rec. #:[id number]: #[id number] Final Pathologic Diagnosis Bladder, TURB: Non-invasive PAPILLARY UROTHELIAL CARCINOMA, low grade. Muscularis propria is present. No invasion into the lamina propria or muscularis propria identified. Report Electronically Signed Out cjb/11/01/2023vanessa Partida MD Interpretation performed at [facility], [address] [place] [address], License number: [id number]. Clinical History Hematuria, microscopic. Bladder tumor, lateral to the right ureteral orifice. Gross Description Received in formalin labeled BRADY, bladder are 8 mosqueda irregular fragments of soft tissue, ranging from 0.2 to 0.6 cm in greatest dimension. Filtered and submitted in a single cassette. (1, ns, [id number], m6) MG mj/10/30/2023O Specimen(s) Received Bladder tumor lateral to the right ureteral orifice Fee Codes(s): 1; 22987 Prostate specific Ag [Mass/V ol]on 10-17-2023 PROSTATIC SPEC ANT 2.43 ng/mL Normal 0.00-4.00 [facility] Comment on above: Result Comment: The method used for this test is Tomas Rodrigo DXI chemiluminescent immunoassay. Values obtained by different assay methods cannot be used interchangeably. Performed By: #### 2 857-1 #### [facility] ([id number]) [address], [address] [place] [address] URINALYSISon 10-17-2023 Bilirubin Ql (U) Negative Normal NEG [facility] BLOOD/HGB Trace Abnormal NEG [facility] Color (U) YELLOW Normal YELLOW [facility] Glucose Ql (U) Negative Normal NEG [facility] Ketones Ql (U) Negative Normal NEG [facility] Leukocyte esterase Test strip Ql (U) Negative Normal NEG [facility] Nitrite Ql (U) Negative Normal NEG [facility] pH (U) 6.0 [pH] Normal 5.0-8.5 [facility] Protein Ql (U) Trace Abnormal NEG [facility] R.B.CELLS <1 Normal 0-5 [facility] Specific gravity (U) [Rel density] 1.020 Normal 1.003-1.035 [facility] TURBIDITY CLEAR Normal CLEAR [facility] Urobilinogen (U) [Mass/Vol] mg/dL Normal <1.1 [facility] W.B.CELLS 3 /hpf Normal 0-5 [facility] URINE CULTUREon 10-17-2023 Bacteria identified Cx Nom (U) CULTURE RESULTS <10,000 ORGANISMS/ML NORMAL URO GENITAL ANIL Normal [facility] Comment on above: Performed By: #### 6 30-4 #### [facility] ([id number]) [address] [place] [address], [address] [place] [address] CT UROGRAMon 10-01-[address] UROGRAM [...] Alcala MD on 10/01/2023 1:03 PM Normal [facility] Cytologyon 09-04-2023 Cytology Normal [facility] Comment on above: Result Comment: [facility] [employer] [facility] [address] [place] [address] Cytology Consultation Patient Name:EBER ABREUOB:1970 (Age: 52)Gender:MTaken:4Reported:09/06/2023 18:36Physician(s):Lida Suh M.D. ([phone])Copy To: Rec. #:[id number]: #[id number] Final Cytologic Diagnosis Urine: Negative for high-grade urothelial cell carcinoma. 09/06/2023 Interpretation performed at [place], [address] [place] [address], License number: [id number].Electronically Signed Out By Brandt Rosas M.D. Clinical History Hematuria, microscopic (R31.29). Gross Description Received was 70 mL of yellow fluid unfixed labeled as Margie, urine . CytoLyt added in lab. Source of Specimen Urine Non TEST DEVELOPMENT ENGINEER ThinPrep Fee Code(s): 1; 55156 BOX TEST SENT OUTon 09-19-19 SENT TO REF LAB 09/18/2022 Normal [facility] Comment on above: Performed By: #### B OX #### [facility] [address] [address] [address] Pablo Blanchard Aspartate aminotransferase [ Enzymatic activity/volume] in Serum or PlasmaOrdered By: Hernandez Lares on 09-04-2022 AST [Catalytic activity/Vol] 22 U/L 10-42 [facility] Automated erythrocytes count in urine sediment (number/area)Ordered By: Hernandez Lares on 09-04-2022 RBC Auto (Urine sed) [#/Area] 3-4 [HPF] 0-4 [facility] Automated leukocytes count i n urine sediment (number/area)Ordered By: Hernandez Lares on 09-04-2022 WBC Auto (Urine sed) [#/Area] 3-4 [HPF] 0-4 [facility] Basophils Auto (Bld) [#/Vol] Ordered By: Hernandez Lares on 09-04-2022 Basophils (Bld) [#/Vol] 0.1 10*3/uL 0.0-0.2 [facility] Basophils/100 WBC Auto (Bld) Ordered By: Hernandez Lares on 09-04-2022 Basophils/100 WBC (Bld) 0.7 % . F [facility] Bilirubin Test strip Ql (U)O rdered By: Hernandez Lares on 09-04-2022 Bilirubin Ql (U) Negative Negative [facility] Body fluid albumin measureme nt (mass/volume)Ordered By: Hernandez Lares on 09-04-2022 Albumin (Body fld) [Mass/Vol] 3.6 g/dL 3.2-5.5 [facility] COVID CepheidOrdered By: Chapo roseanne Arnaud on 09-04-2022 SARS-CoV-2 (COVID-19) Ab IA Ql Negative Negative [facility] Comment on above: This is a duplicate Cepheid Xpert Xpress CoV-2/Flu/RSV Plus RNA by RT-PCR result to be used for statistical tracking purpose only. SARS-CoV-2 (COVID-19) RNA NANCIE+probe Ql (Unsp spec) [facility] SARS-CoV-2 (COVID-19) RNA NANCIE+probe Ql (Unsp spec) [facility] Color Auto (U)Ordered By: Brandon bowenssaba Arnaud on 09-04-2022 Color (U) Yellow Yellow [facility] Creatine kinase [Enzymatic a ctivity/volume] in Serum or PlasmaOrdered By: Hernandez Lares on 09-04-2022 CK [Catalytic activity/Vol] 72 U/L 22-269 [facility] Creatine kinase.MB [Mass/vol ume] in Serum or PlasmaOrdered By: Hernandez Lares on 09-04-2022 CK.MB [Mass/Vol] 0.7 ng/mL 0.6-6.3 [facility] Creatinine and Glomerular fi ltration rate.predicted panel (S/P/Bld)Ordered By: Hernandez Lares on 09-04-2022 Creatinine [Mass/Vol] 1.01 mg/dL 0.64-1.27 [facility] Eosinophils Auto (Bld) [#/Vo l]Ordered By: Hernandez Lares on 09-04-2022 Eosinophils (Bld) [#/Vol] 0.2 10*3/uL 0.0-0.45 [facility] Eosinophils/100 WBC Auto (Bl d)Ordered By: Hernandez Lares on 09-04-2022 Eosinophils/100 WBC (Bld) 2.5 % . [facility] Erythrocyte distribution wid th Auto (RBC) [Ratio]Ordered By: Hernandez Lares on 09-04-2022 Erythrocyte distribution width (RBC) [Ratio] 13.1 % 12.0-14.8 [facility] Estimated glomerular filtrat ion rate (GFR) non- AmericanOrdered By: Hernandez Lares on 09-04-2022 GFR/1.73 sq M.predicted among non-blacks MDRD (S/P/Bld) [Vol rate/Area] > 60 mL/Min [facility] Globulin Calc (S) [Mass/Vol] Ordered By: Hernandez Lares on 09-04-2022 Globulin (S) [Mass/Vol] 2.9 g/dL F [facility] Hematocrit Auto (Bld) [Volum e fraction]Ordered By: Hernandez Lares on 09-04-2022 Hematocrit (Bld) [Volume fraction] 45.8 % 38.8-50.0 [facility] Hemoglobin [Mass/volume] in BloodOrdered By: Hernandez Lares on 09-04-2022 Hemoglobin (Bld) [Mass/Vol] 15.6 g/dL 13.0-17.0 [facility] Ketones Auto test strip (U) [Mass/Vol]Ordered By: Hernandez Lares on 09-04-2022 Ketones (U) [Mass/Vol] Trace Negative Fi [facility] - UrinalysisOrder ed By: Hernandez Lares on 09-04-2022 Hyaline casts LM Ql (Urine sed) None seen [LPF] 0-8 [facility] Leukocytes [#/volume] correc pooja for nucleated erythrocytes in Blood by Automated counOrdered By: Hernandez Lares on 09-04-2022 WBC corrected for nucl RBC Auto (Bld) [#/Vol] 8.2 10*3/uL 4.1-10.5 [facility] Lymphocytes Auto (Bld) [#/Vo l]Ordered By: Hernandez Lares on 09-04-2022 Lymphocytes (Bld) [#/Vol] 2.2 10*3/uL 1.00-4.8 [facility] Lymphocytes/100 WBC Auto (Bl d)Ordered By: Hernandez Lares on 09-04-2022 Lymphocytes/100 WBC (Bld) 26.2 % . [facility] MCH Auto (RBC) [Entitic mass ]Ordered By: Hernandez Lares on 09-04-2022 MCH (RBC) [Entitic mass] 30.7 pg 27.5-35.2 [facility] MCHC Auto (RBC) [Mass/Vol]Or dered By: Hernandez Lares on 09-04-2022 MCHC (RBC) [Mass/Vol] 34.1 g/dL 32.5-35.6 [facility] MCV Auto (RBC) [Entitic vol] Ordered By: Hernandez Lares on 09-04-2022 MCV (RBC) [Entitic vol] 89.9 fL 83.5-101 F [facility] Monocyte distribution width [Entitic volume] in Blood by AutomatedOrdered By: Hernandez Lares on 09-04-2022 Monocyte distribution width Auto (Bld) [Entitic vol] 16.89 % 0.00-20.00 [facility] Monocytes Auto (Bld) [#/Vol] Ordered By: Hernandez Lares on 09-04-2022 Monocytes (Bld) [#/Vol] 0.7 10*3/uL 0.0-0.8 [facility] Monocytes/100 WBC Auto (Bld) Ordered By: Hernandez Lares on 09-04-2022 Monocytes/100 WBC (Bld) 8.1 % . F [facility] Neutrophils Auto (Bld) [#/Vo l]Ordered By: Hernandez Lares on 09-04-2022 Neutrophils (Bld) [#/Vol] 5.1 10*3/uL 1.8-7.7 [facility] Neutrophils/100 WBC Auto (Bl d)Ordered By: Hernandez Lares on 09-04-2022 Neutrophils/100 WBC (Bld) 62.5 % . [facility] Nitrite Test strip Ql (U)Ord ered By: Hernandez Lares on 09-04-2022 Nitrite Ql (U) Negative Negative [facility] No Panel InformationOrdered By: Hernandez Lares on 09-04-2022 Estimated GFR () > 60 mL/Min [facility] Comment on above: GFR estimated refere nce range: According to KDOQI guidelines, <60 ml/min/1.73m2 is sufficient to diagnose a patient with chronic kidney disease. Pharmacy Creatinine Clearance (Chem 116.51 [facility] Nucleated erythrocytes [Pres ence] in Blood by Automated countOrdered By: Hernandez Lares on 09-04-2022 Nucleated RBC Auto Ql (Bld) 0.1 /100{WBC} 0-0.5 [facility] Platelet mean volume Auto (B ld) [Entitic vol]Ordered By: Hernandez Lares on 09-04-2022 Platelet mean volume (Bld) [Entitic vol] 7.8 fL 6.6-10.1 [facility] Platelets Auto (Bld) [#/Vol] Ordered By: Hernandez Lares on 09-04-2022 Platelets (Bld) [#/Vol] 224 10*3/uL 150-450 [facility] Protein Auto test strip (U) [Mass/Vol]Ordered By: Hernandez Lares on 09-04-2022 Protein (U) [Mass/Vol] 100 mg/dL Negative [facility] Protein [Mass/volume] in Ser um or PlasmaOrdered By: Hernandez Lares on 09-04-2022 Protein [Mass/Vol] 6.5 g/dL 6.1-7.9 [facility] RBC Auto (Bld) [#/Vol]Ordere d By: Hernandez Lares on 09-04-2022 RBC (Bld) [#/Vol] 5.09 10*6/uL 3.90-5.60 [facility] Serum or plasma alanine storey otransferase measurement without P-5'-P (enzymatic activiOrdered By: Hernandez Lares on 09-04-2022 ALT No additional P-5'-P [Catalytic activity/Vol] 26 U/L 10-60 [facility] Serum or plasma albumin/glob ulin mass ratioOrdered By: Hernandez Lares on 09-04-2022 Albumin/Globulin [Mass ratio] 1.2 {ratio} [facility] Serum or plasma alkaline alexandro sphatase measurement (enzymatic activity/volume)Ordered By: Hernandez Lares on 09-04-2022 ALP [Catalytic activity/Vol] 85 U/L 32-92 [facility] Serum or plasma anion gap de terminationOrdered By: Hernandez Lares on 09-04-2022 Anion gap [Moles/Vol] 15.6 mmol/L 6.0-15.0 [facility] Serum or plasma calcium angie urement (mass/volume)Ordered By: Hernandez Lares on 09-04-2022 Calcium [Mass/Vol] 8.8 mg/dL 8.2-10.2 [facility] Serum or plasma chloride rocio surement (moles/volume)Ordered By: Hernandez Lares on 09-04-2022 Chloride [Moles/Vol] 101 mmol/L 95-114 [facility] Serum or plasma creatine kin ase MB (CKMB)/total creatine kinase (CK) ratio by calculaOrdered By: Hernandez Lares on 09-04-2022 CK.MB Calc [Catalytic fraction] 0.9 % 0.00-2.50 [facility] Serum or plasma glucose angie urement (mass/volume)Ordered By: Hernandez Lares on 09-04-2022 Glucose [Mass/Vol] 99 mg/dL 70-100 [facility] Comment on above: ADA recommended refe rence rangeRandom Glucose Reference Range is dependent on time and content of last meal. Glucose of more than 200 mg/dL in a nonstressed, ambulatory subject supports the diagnosis of Diabetes Mellitus. Serum or plasma potassium me asurement (moles/volume)Ordered By: Hernandez Lares on 09-04-2022 Potassium [Moles/Vol] 4.0 mmol/L 3.5-5.1 [facility] Serum or plasma sodium measu rement (moles/volume)Ordered By: Hernandez Lares on 09-04-2022 Sodium [Moles/Vol] 138 mmol/L 136-146 [facility] Serum or plasma total biliru bin measurement (mass/volume)Ordered By: Hernandez Lares on 09-04-2022 Bilirubin [Mass/Vol] 0.6 mg/dL 0.3-1.2 [facility] Serum or plasma total carbon dioxide measurement (moles/volume)Ordered By: Hernandez Lares on 09-04-2022 CO2 [Moles/Vol] 25.4 mmol/L 22.0-30.0 [facility] Serum or plasma urea nitroge n measurement (mass/volume)Ordered By: Hernandez Lares on 09-04-2022 Urea nitrogen [Mass/Vol] 13 mg/dL 9-23 [facility] Specific gravity Auto test s trip (U) [Rel density]Ordered By: Hernandez Lares on 09-04-2022 Specific gravity (U) [Rel density] 1.027 1.001-1.030 [facility] Spermatozoa detection in uri ne sediment by light microscopyOrdered By: Hernandez Lares on 02-21-2023 Spermatozoa LM Ql (Urine sed) 3-4 [HPF] 0-2 [facility] Squamous epithelial cells de tection in urine sediment by light microscopyOrdered By: Hernandez Lares on 09-04-2022 Epithelial cells.squamous LM Ql (Urine sed) None seen [HPF] 0-2 [facility] Troponin I.cardiac [Mass/vol ume] in Serum or Plasma by High sensitivity methodOrdered By: Hernandez Lares on 09-04-2022 Troponin I.cardiac High sensitivity method [Mass/Vol] < 3 pg/mL 0-20 [facility] Urine bacteria detection by automated methodOrdered By: Hernandez Lares on 09-04-2022 Bacteria Auto Ql (U) None seen None Seen [facility] Urine clarity by refractomet ry automatedOrdered By: Hernandez Lares on 09-04-2022 Clarity Refractometry automated (U) Clear Clear [facility] Urine glucose measurement by automated test strip (mass/volume)Ordered By: Hernandez Lares on 09-04-2022 Glucose Auto test strip (U) [Mass/Vol] Normal mg/dL Normal [facility] Urine hemoglobin detection b y automated test stripOrdered By: Hernandez Lares on 09-04-2022 Hemoglobin Auto test strip Ql (U) Negative Negative [facility] Urine leukocyte esterase det ection by automated test stripOrdered By: Hernandez Lares on 09-04-2022 Leukocyte esterase Auto test strip Ql (U) Negative Negative [facility] Urobilinogen Auto test strip (U) [Mass/Vol]Ordered By: Hernandez Lares on 09-04-2022 Urobilinogen (U) [Mass/Vol] Normal mg/dL Normal [facility] WBC Auto (Bld) [#/Vol]Ordere d By: Hernandez Lares on 09-04-2022 WBC (Bld) [#/Vol] 8.2 10*3/uL 4.1-10.5 [facility] pH Auto test strip (U)Ordere d By: Hernandez Lares on 09-04-2022 pH (U) 6.0 [pH] 5.0-9.0 [facility] CBC AUTO DIFFon 03-08-2022 BASO # 0.0 103/ul Normal 0.0-0.1 [facility] Comment on above: Performed By: #### C BC #### [facility] [address] [place] [address] Dr. Pablo Blanchard Basophils/100 WBC (Bld) 0.4 % Normal 0.2-2.0 [facility] Comment on above: Performed By: #### C BC #### [facility] [address] [place] [address] Dr. Pablo Blanchard EO # 0.2 103/ul Normal 0.0-0.7 [facility] Comment on above: Performed By: #### C BC #### [facility] [address] [place] [address] Dr. Pablo Blanchard Eosinophils/100 WBC (Bld) 2.5 % Normal 0.9-7.0 [facility] Comment on above: Performed By: #### C BC #### [facility] [address] [place] [address] Dr. Pablo Blanchard Erythrocyte distribution width (RBC) [Ratio] 12.2 % Normal 11.0-15.0 [facility] Comment on above: Performed By: #### C BC #### [facility] [address] [place] [address] Dr. Pablo Blanchard Hematocrit (Bld) [Volume fraction] 49.2 % Normal 42.0-54.0 [facility] Comment on above: Performed By: #### C BC #### [facility] [address] [place] [address] Dr. Pablo Blanchard Hemoglobin (Bld) [Mass/Vol] 16.1 g/dL Normal 14.0-18.0 [facility] Comment on above: Performed By: #### C BC #### [facility] [address] [place] [address] Dr. Pablo Blanchard IG # 0.03 10e3/ul Normal 0.00-0.03 [facility] Comment on above: Performed By: #### C BC #### [facility] [address] [place] [address] Dr. Pablo Blanchard IG % 0.4 % Normal 0.0-0.5 [facility] Comment on above: Performed By: #### C BC #### [facility] [address] [address] [address] Pablo Blanchard LYMPH # 1.5 103/ul Normal 1.2-3.8 [facility] Comment on above: Performed By: #### C BC #### [facility] [address] [address] [address] Pablo Blanchard Lymphocytes/100 WBC (Bld) 20.1 % Critically low 20.5-60.0 [facility] Comment on above: Performed By: #### C BC #### [facility] [address] [place] [address] Dr. Pablo Blanchard MANUAL DIFF REQ NO Normal [facility] Comment on above: Performed By: #### C BC #### [facility] [address] [place] [address] Dr. Pablo Blanchard MCH (RBC) [Entitic mass] 30.4 pg Normal 25.9-34.0 [facility] Comment on above: Performed By: #### C BC #### [facility] [address] [place] [address] Dr. Pablo Blanchard MCHC (RBC) [Mass/Vol] 32.7 g/dL Normal 29.9-35.2 [facility] Comment on above: Performed By: #### C BC #### [facility] [address] [place] [address] Dr. Pablo Blanchard MCV (RBC) [Entitic vol] 92.8 fL Normal 80.0-94.0 [facility] Comment on above: Performed By: #### C BC #### [facility] [address] [place] [address] Dr. Pablo Blanchard MONO # 0.6 103/ul Normal 0.3-0.8 [facility] Comment on above: Performed By: #### C BC #### [facility] [address] [place] [address] Dr. Pablo Blanchard Monocytes/100 WBC (Bld) 8.1 % Normal 1.7-12.0 [facility] Comment on above: Performed By: #### C BC #### [facility] [address] [address] [address] Pablo Blanchard NEUT # 5.1 103/ul Normal 1.4-6.5 [facility] Comment on above: Performed By: #### C BC #### [facility] [address] [address] [address] Pablo Blanchard Neutrophils/100 WBC (Bld) 68.5 % Normal 43.0-75.0 [facility] Comment on above: Performed By: #### C BC #### [facility] [address] [address] [address] Pablo Blanchard Platelet mean volume (Bld) [Entitic vol] 9.2 fL Critically low 9.5-13.5 [facility] Comment on above: Performed By: #### C BC #### [facility] [address] [address] [address] Pablo Blanchard PLT 231 103/ul Normal 150-450 [facility] [facility] Comment on above: Performed By: #### C BC #### [facility] [address] [address] [address] Pablo Blanchard RBC 5.30 106/ul Normal 4.70-6.10 [facility] Comment on above: Performed By: #### C BC #### [facility] [address] [address] [address] Pablo Blanchard WBC 7.5 103/ul Normal 4.0-11.0 [facility] Comment on above: Performed By: #### C BC #### [facility] [address] [address] [address] Pablo Blanchard GLYCOHEMOGLOBIN A1Con 2021 ADA RECOMMENDATION SEE BELOW Normal [facility] Comment on above: Result Comment: ADA RECOMMENDED LIMIT 4.0 - 6.0 ADA THERAPEUTIC TARGET < 7.0 ACTION SUGGESTED > 7.0 Performed By: #### A 1C #### [facility] [address] [address] [address] Pablo Blanchard Glucose [Mass/Vol] 97 mg/dL Normal [facility] Comment on above: Performed By: #### A 1C #### [facility] [address] [address] [address] Pablo Balnchard HbA1c (Bld) [Mass fraction] 5.0 % Normal 4.5-6.2 [facility] Comment on above: Performed By: #### A 1C #### [facility] [address] [address] [address] Pablo Blanchard LIPID PROFILEon 03-08-2022 CHOL-HDL RATIO NORM SEE BELOW Normal [facility] Comment on above: Result Comment: 3.3 - 4.4 LOW RISK 4.4 - 7.1 AVERAGE RISK 7.1 - 11.0 MODERATE RISK >11.0 HIGH RISK Performed By: #### L IPID, CMP #### [facility] [address] [address] [address] Pablo Blanchard Cholesterol [Mass/Vol] 205 mg/dL Critically high <=200 [facility] Comment on above: Performed By: #### L IPID, CMP #### [facility] [address] [address] [address] Pablo Blanchard Cholesterol in HDL [Mass/Vol] 40 mg/dL Normal 40-60 [facility] Comment on above: Performed By: #### L IPID, CMP #### [facility] [address] [address] [address] Pablo Blanchard Cholesterol in LDL [Mass/Vol] 150.6 mg/dL Normal [facility] Comment on above: Performed By: #### L IPID, CMP #### [facility] [address] [address] [address] Pablo Blanchard Cholesterol.total/Choles terol in HDL [Mass ratio] 5.1 {ratio} Normal [facility] Comment on above: Performed By: #### L IPID, CMP #### [facility] [address] [address] [address] Pablo Blanchard HDL NORMAL > or = 60 mg/dl - LOW CARDIOVASCULAR RISK <40 mg/dl - HIGH CARDIOVASCULAR RISK Normal [facility] Comment on above: Performed By: #### L IPID, CMP #### [facility] [address] [address] [address] Pablo Blanchard LDL CALC NORMAL SEE BELOW Normal [facility] Comment on above: Result Comment: <100 mg/dl OPTIMAL 100 - 129 mg/dl NEAR OR ABOVE OPTIMAL 130 - 159 mg/dl BORDERLINE HIGH 160 - 189 mg/dl HIGH >190 mg/dl VERY HIGH Performed By: #### L IPID, CMP #### [facility] [address] [address] [address] Pablo Blanchard Triglyceride [Mass/Vol] 72 mg/dL Normal <=150 T [facility] Comment on above: Performed By: #### L IPID, CMP #### [facility] [address] [address] [address] Pablo Blanchard VLDL CALC 14.4 mg/dL Normal [facility] Comment on above: Performed By: #### L IPID, CMP #### [facility] [address] [place] [address] Dr. Pablo Blanchard PROF 14(COMP METB)on 022 Albumin [Mass/Vol] 3.3 g/dL Critically low 3.4-5.0 [facility] Comment on above: Performed By: #### L IPID, CMP #### [facility] [address] [address] [address] Pablo Blanchard Albumin/Globulin [Mass ratio] 1.0 {ratio} Normal [facility] Comment on above: Performed By: #### L IPID, CMP #### [facility] [address] [address] [address] Pablo Blanchard ALP [Catalytic activity/Vol] 98 U/L Normal 46-116 [facility] Comment on above: Performed By: #### L IPID, CMP #### [facility] [address] [address] [address] Pablo Blanchard ALT [Catalytic activity/Vol] 33 U/L Normal 16-63 [facility] Comment on above: Performed By: #### L IPID, CMP #### [facility] [address] [place] [address] Dr. Pablo Blanchard Anion gap [Moles/Vol] 9.4 mmol/L Normal [facility] Comment on above: Performed By: #### L IPID, CMP #### [facility] [address] [address] [address] Pablo Blanchard AST [Catalytic activity/Vol] 16 U/L Normal 15-37 [facility] Comment on above: Performed By: #### L IPID, CMP #### [facility] [address] [place] [address] Dr. Pablo Blanchard Bilirubin [Mass/Vol] 0.7 mg/dL Normal 0.2-1.0 [facility] Comment on above: Performed By: #### L IPID, CMP #### [facility] [address] [place] [address] Dr. Pablo Blanchard Calcium [Mass/Vol] 8.0 mg/dL Critically low 8.5-10.1 Th [facility] Comment on above: Performed By: #### L IPID, CMP #### [facility] [address] [place] [address] Dr. Pablo Blanchard Chloride [Moles/Vol] 104 mmol/L Normal 98-107 [facility] Comment on above: Performed By: #### L IPID, CMP #### [facility] [address] [place] [address] Dr. Pablo Blanchard CO2 [Moles/Vol] 30.5 mmol/L Normal 21.0-32.0 [facility] Comment on above: Performed By: #### L IPID, CMP #### [facility] [address] [place] [address] Dr. Pablo Blanchard Creatinine [Mass/Vol] 1.02 mg/dL Normal 0.70-1.30 [facility] Comment on above: Performed By: #### L IPID, CMP #### [facility] [address] [place] [address] Dr. Pablo Blanchard EGFR-AF MARSHALLESE >60 Normal >=60 [facility] Comment on above: Performed By: #### L IPID, CMP #### [facility] [address] [place] [address] Dr. Pablo Blanchard EGFR-NON AF MARSHALLESE >60 Normal >=60 [facility] Comment on above: Performed By: #### L IPID, CMP #### [facility] [address] [address] [address] Pablo Blanchard Globulin (S) [Mass/Vol] 3.4 g/dL Normal [facility] Comment on above: Performed By: #### L IPID, CMP #### [facility] [address] [address] [address] Pablo Blanchard Glucose [Mass/Vol] 108 mg/dL Critically high 74-106 [facility] Comment on above: Performed By: #### L IPID, CMP #### [facility] [address] [address] [address] Pablo Blanchard Potassium [Moles/Vol] 3.9 mmol/L Normal 3.5-5.1 [facility] Comment on above: Performed By: #### L IPID, CMP #### [facility] [address] [address] [address] Pablo Blanchard Protein [Mass/Vol] 6.7 g/dL Normal 6.4-8.2 [facility] Comment on above: Performed By: #### L IPID, CMP #### [facility] [address] [place] [address] Dr. Pablo Blanchard Sodium [Moles/Vol] 140 mmol/L Normal 136-145 [facility] Comment on above: Performed By: #### L IPID, CMP #### [facility] [address] [address] [address] Pablo Blanchard Urea nitrogen [Mass/Vol] 11.0 mg/dL Normal 7.0-18.0 [facility] Comment on above: Performed By: #### L IPID, CMP #### [facility] [address] [place] [address] Dr. Pablo Blanchard Urea nitrogen/Creatinine [Mass ratio] 10.8 mg/mg Normal [facility] Comment on above: Performed By: #### L IPID, CMP #### [facility] [address] [place] [address] Dr. Pablo Blanchard UA RANDOM W/MICROSCOPICon BACTERIA NONE SEEN Normal NONE SEEN [facility] Comment on above: Performed By: #### U AMIC #### [facility] [address] [address] [address] Pablo Blanchard Bilirubin Ql (U) Negative Normal NEGATIVE [facility] Comment on above: Performed By: #### U AMIC #### [facility] [address] [address] [address] Pablo Blanchard CAST NONE SEEN Normal NONE SEEN [facility] Comment on above: Performed By: #### U AMIC #### [facility] [address] [address] [address] Pablo Blanchard Clarity (U) CLEAR Normal CLEAR [facility] Comment on above: Performed By: #### U AMIC #### [facility] [address] [place] [address] Dr. Pablo Blanchard Color (U) YELLOW Normal YELLOW [facility] Comment on above: Performed By: #### U AMIC #### [facility] [address] [address] [address] Pablo Blanchard Crystals LM Nom (Urine sed) NONE SEEN Normal NONE SEEN [facility] Comment on above: Performed By: #### U AMIC #### [facility] [address] [address] [address] Pablo Blanchard Epithelial cells LM Ql (Urine sed) FEW Abnormal NONE SEEN /RARE [facility] Comment on above: Performed By: #### U AMIC #### [facility] [address] [address] [address] Pablo Blanchard Glucose Ql (U) Negative Normal NEGATIVE [facility] Comment on above: Performed By: #### U AMIC #### [facility] [address] [address] [address] Pablo Blanchard Hemoglobin Ql (U) Negative Normal NEGATIVE [facility] Comment on above: Performed By: #### U AMIC #### [facility] [address] [place] [address] Dr. Pablo Blanchard Ketones Ql (U) Negative Normal NEGATIVE [facility] Comment on above: Performed By: #### U AMIC #### [facility] [address] [address] [address] Pablo Blanchard LEUKOCYTES Negative Normal NEGATIVE [facility] Comment on above: Performed By: #### U AMIC #### [facility] [address] [place] [address] Dr. Pablo Blanchard MUCOUS NONE SEEN Normal NONE SEEN [facility] Comment on above: Performed By: #### U AMIC #### [facility] [address] [address] [address] Pablo Blanchard Nitrite Ql (U) Negative Normal NEGATIVE [facility] Comment on above: Performed By: #### U AMIC #### [facility] [address] [place] [address] Dr. Pablo Blanchard pH (U) 6.0 [pH] Normal 5-9 [facility] Comment on above: Performed By: #### U AMIC #### [facility] [address] [place] [address] Dr. Pablo Blanchard RBC 0-2 Normal 0-2 [facility] Comment on above: Performed By: #### U AMIC #### [facility] [address] [address] [address] Pablo Blanchard SPEC GRAVITY >=1.030 Abnormal 1.005-<=1.02 5 [facility] Comment on above: Performed By: #### U AMIC #### [facility] [address] [place] [address] Dr. Pablo Blanchard UA PROTEIN Negative Normal NEGATIVE/ TRACE [facility] Comment on above: Performed By: #### U AMIC #### [facility] [address] [place] [address] Dr. Pablo Blanchard Urobilinogen Qn (U) 1.0 {Kuldeep'U}/dL Normal 0.2 - 1. 0 [facility] Comment on above: Performed By: #### U AMIC #### [facility] [address] [place] [address] Dr. Pablo Blanchard WBC NONE SEEN Normal NONE SEEN [facility] Comment on above: Performed By: #### U AMIC #### [facility] [address] [place] [address] [address] Pablo Blanchard Covid-19 PCR (CVDTB)on 10-14 SARS-CoV-2 (COVID-19) RNA NANCIE+probe Ql (Unsp spec) Not detected Normal NOT DETECTED [facility] Comment on above: Result Comment: This test is not yet approved or cleared by the [place] FDA. When there are no FDA-approved or cleared tests available, and other criteria are met, FDA can make tests available under an emergency access mechanism called an Emergency Use Authorization (EUA). The EUA for this test is supported by the Certified Registered Dental Assistant of Health and Human Service's (HHS's) [...] SARS-CoV-2. Performed By: #### C VDTB #### [facility] [address] [place] [address] Pablo Blanchard CKon 02-04-2018 Creatine kinase (CK) 57 Int._Unit/L Normal 14-261 [facility] Comment on above: Performed By: #### 2 [id number], [id number] ####[facility] [address] [place] [address] CKMBon 02-04-2018 CREATINE KINASE.MB:CCNC:PT:SER/PL :QN:EIA 0.5 ng/mL Normal 0.3-4.9 [facility] Comment on above: Performed By: #### 2 632188, [id number] ####[facility] [address] [place] [address] CREATINE KINASE.MB:CCNC:PT:SER/PL :QN:EIA 0.8 ng/mL Normal 0.3-4.9 [facility] Comment on above: Performed By: #### 2 989369, [id number], [id number] ####[facility] [address] [place] [address] CREATINE KINASE.MB:CCNC:PT:SER/PL :QN:EIA 0.7 ng/mL Normal 0.3-4.9 [facility] Comment on above: Performed By: #### 2 074583, [id number], [id number] ####[facility] [address] [place] [address] CMPon 02-04-2018 Albumin 1.2 g/dL Normal 1.1-2.2 [facility] Comment on above: Performed By: #### 2 [id number], [id number] ####[address] [address] Albumin 3.6 g/dL Normal 3.3-5.0 [facility] Comment on above: Performed By: #### 2 063316, [id number] ####[facility] [address] [place] [address] Alkaline phosphatase (ALP) 71 Int._Unit/L Normal 21-98 [facility] Comment on above: Performed By: #### 2 645489, [id number] ####[facility] [address] [place] [address] ALT Without P-5'-P enzyme act/vol 29 Int._Unit/L Normal 6-46 [facility] Comment on above: Performed By: #### 2 616297, [id number] ####[facility] [address] [place] [address] Aspartate aminotransferase (AST) 29 Int._Unit/L Normal 5-[address] [facility] Comment on above: Performed By: #### 2 217030, [id number] ####[facility] [address] [place] [address] Bilirubin (total) 0.5 mg/dL Normal 0.0-1.1 [facility] Comment on above: Performed By: #### 2 940788, [id number] ####[facility] [address] [place] [address] BUN/Creatinine Ratio 16 No Units Normal 10-20 [facility] Comment on above: Performed By: #### 2 786307, [id number] ####[facility] [address] [place] [address] Creatinine 1.0 mg/dL Normal 0.5-1.3 [facility] Comment on above: Performed By: #### 2 443457, [id number] ####[facility] [address] [place] [address] Globulin 2.9 g/dL Normal 1.4-4.0 [facility] Comment on above: Performed By: #### 2 508876, [id number] ####[facility] [address] [place] [address] Protein 6.5 g/dL Normal 6.0-7.8 [facility] Comment on above: Performed By: #### 2 323456, [id number] ####[facility] [address] [place] [address] Urea nitrogen 16 mg/dL Normal 5-21 [facility] Comment on above: Performed By: #### 2 121783, [id number] ####[facility] [address] [place] [address] Anion gap 14 mmol/L Normal 6-16 [facility] Comment on above: Performed By: #### 2 508833, [id number] ####[facility] [address] [place] [address] Calcium 8.8 mg/dL Low 8.9-11.1 [facility] Comment on above: Performed By: #### 2 873449, [id number] ####[facility] [address] [place] [address] Chloride 106 mmol/L Normal 101-111 [facility] Comment on above: Performed By: #### 2 444649, [id number] ####[facility] [address] [place] [address] CO2 23 mmol/L Normal 21-31 [facility] Comment on above: Performed By: #### 2 545451, [id number] ####[facility] [address] [place] [address] Glucose mass conc 86 mg/dL Normal 55-199 [facility] Comment on above: Result Comment: If t his glucose result represents a fasting glucose, interpretation should refer to the following reference range: 55-99 mg/dL Performed By: #### 2 672080, [id number] ####[address] [place] [address] Potassium molar conc 3.6 mmol/L Normal 3.5-5.3 [facility] Comment on above: Performed By: #### 2 645233, [id number] ####[facility] [address] [place] [address] Sodium 139 mmol/L Normal 135-145 [facility] Comment on above: Performed By: #### 2 710946, [id number] ####[facility] [address] [place] [address] Myoglobinon 02-04-2018 Myoglobin 18 ng/mL Normal <=69 [facility] Comment on above: Performed By: #### 2 953293, 3836937, [id number], 0866533, [id number], [id number] ####[facility] [address] [place] [address] Myoglobin 42 ng/mL Normal <=69 [facility] Comment on above: Performed By: #### 2 811118, [id number], [id number] ####[facility] [address] [place] [address] Myoglobin 17 ng/mL Normal <=69 [facility] Comment on above: Performed By: #### 2 027619, 3673822, [id number] ####[address] [place] [address] T4 Totalon 02-04-2018 Thyroxine (T4) 9.1 microgram/dL Normal 4.6-9.1 [facility] Comment on above: Performed By: #### 2 861963, [id number] ####[facility] [address] [place] [address] TSHon 02-04-2018 Thyroid stimulating hormone (TSH) 5.61 mcIU/mL High 0.34-5.60 [facility] Comment on above: Performed By: #### 2 062690, [id number] ####[address] [address] Troponinon 02-04-2018 Troponin I.cardiac mass conc ng/mL Normal <=0.03 [facility] Comment on above: Result Comment: New Troponin Assay 11/26/13ROC [place] Cutoff value > or = 0.03 ng/mL in conjunction with clinical conditions of myocardial infarction.([email or web address]) Performed By: #### 2 630482, 2546580, [id number], [id number], [id number], [id number] ####[address] [address] Troponin I.cardiac mass conc ng/mL Normal <=0.03 [facility] Comment on above: Result Comment: New Troponin Assay 11/26/13ROC [place] Cutoff value > or = 0.03 ng/mL in conjunction with clinical conditions of myocardial infarction.([email or web address]) Performed By: #### 2 954519, 1776610, [id number] ####[address] [place] [address] Troponin I.cardiac mass conc ng/mL Normal <=0.03 [facility] Comment on above: Result Comment: New Troponin Assay 11/26/13ROC [place] Cutoff value > or = 0.03 ng/mL in conjunction with clinical conditions of myocardial infarction.([email or web address]) Performed By: #### 2 233216, 1271587, [id number] ####[facility] [address] [place] [address] eGFRon 02-04-2018 eGFR (black) mL/min/{1.73_m2} Normal >=59 [facility] Comment on above: Order Comment: Order added by Discern Expert. Result Comment: eGFR is race adjusted. AA=. Performed By: #### 2 519343, [id number] ####[facility] [address] [place] [address] eGFR (non-black) mL/min/{1.73_m2} Normal >=59 [facility] Comment on above: Order Comment: Order added by Discern Expert. Result Comment: Health Psychologist sofi kidney disease could be indicated at eGFR's of less than 60 mL/min/1.73m2. Kidney failure is indicated at less than 15 mL/min/1.73m2. Performed By: #### 2 286679, [id number] ####[facility] [address] [place] [address] Vital Signs Date Time Vital Sign Value Performing Clinician Facility 08-19-2024 16:21-0500 Body height 189.2 cm Lida Suh MD Work Phone: [facility] 08-19-2024 16:21-0500 Body mass index (BMI) [Ratio] 31.67 kg/m2 Lida Suh MD Work Phone: [facility] 08-19-2024 16:21-0500 Body weight 113.4 kg Lida Suh MD Work Phone: [facility] 08-19-2024 16:21-0500 Diastolic blood pressure 75 mm[Hg] Lida Suh MD Work Phone: [facility] 08-19-2024 16:21-0500 Heart rate 75 /min Lida Suh MD Work Phone: [facility] 08-19-2024 16:21-0500 Systolic blood pressure 98 mm[Hg] Lida Suh MD Work Phone: [facility] 07-30-2024 08:21-0500 Body height 190.5 cm Brooklynn Carrasquilloz WIRELESS TELEGRAPHER Work Phone: [facility] 07-30-2024 08:21-0500 Body mass index (BMI) [Ratio] 31.8 kg/m2 Brooklynnsharad Eagleholz WIRELESS TELEGRAPHER Work Phone: [facility] 07-30-2024 08:21-0500 Body temperature 97.81 [degF] Brooklynn Carrasquilloz WIRELESS TELEGRAPHER Work Phone: [facility] 07-30-2024 08:21-0500 Body weight 115.39 kg Brooklynnsharad Eagleholz WIRELESS TELEGRAPHER Work Phone: [facility] 07-30-2024 08:21-0500 Diastolic blood pressure 72 mm[Hg] Brooklynn Fcoholz WIRELESS TELEGRAPHER Work Phone: [facility] 07-30-2024 08:21-0500 Heart rate 88 /min Brooklynn Carrasquilloz WIRELESS TELEGRAPHER Work Phone: [facility] 07-30-2024 08:21-0500 Respiratory rate 20 /min Brooklynn Fcoholz WIRELESS TELEGRAPHER Work Phone: [facility] 07-30-2024 08:21-0500 SaO2% (BldA) [Mass fraction] 93 % Brooklynn Carrasquilloz WIRELESS TELEGRAPHER Work Phone: [facility] 07-30-2024 08:21-0500 Systolic blood pressure 108 mm[Hg] Brooklynn Carrasquilloz WIRELESS TELEGRAPHER Work Phone: [facility] 03-30-2024 08:08-0400 Body height 186.7 cm Brooklynn Fcoholz WIRELESS TELEGRAPHER Work Phone: [facility] 03-30-2024 08:08-0400 Body mass index (BMI) [Ratio] 32.82 kg/m2 Brooklynnsharad Eagleholz WIRELESS TELEGRAPHER Work Phone: [facility] 03-30-2024 08:08-0400 Body temperature 98.2 [degF] Brooklynn Fcoholz WIRELESS TELEGRAPHER Work Phone: [facility] 03-30-2024 08:08-0400 Body weight 114.4 kg Brooklynnsharad Eagledaltonz WIRELESS TELEGRAPHER Work Phone: [facility] 03-30-2024 08:08-0400 Diastolic blood pressure 80 mm[Hg] Brooklynn Wandahholz WIRELESS TELEGRAPHER Work Phone: [facility] 03-30-2024 08:08-0400 Heart rate 79 /min Brooklynn Fcoholz WIRELESS TELEGRAPHER Work Phone: [facility] 03-30-2024 08:08-0400 Respiratory rate 18 /min Brooklynn Wandahholz WIRELESS TELEGRAPHER Work Phone: [facility] 03-30-2024 08:08-0400 SaO2% (BldA) [Mass fraction] 97 % Brooklynn Fcoholz WIRELESS TELEGRAPHER Work Phone: [place] [facility] 03-30-2024 08:08-0400 Systolic blood pressure 110 mm[Hg] Brooklynn Wandayukoz WIRELESS TELEGRAPHER Work Phone: [facility] 03-17-2024 10:11-0400 Body height 189.2 cm Pmh 1 [facility] 03-17-2024 10:11-0400 Body mass index (BMI) [Ratio] 31.67 kg/m2 Pmh 1 [facility] 03-17-2024 10:11-0400 Body weight 113.4 kg Pmh 1 [facility] 01-29-2024 16:33-0400 Body height 185.4 cm Lida Suh MD Work Phone: [facility] 01-29-2024 16:33-0400 Body mass index (BMI) [Ratio] 33.64 kg/m2 Lida Suh MD Work Phone: [facility] 01-29-2024 16:33-0400 Body weight 115.67 kg Lida Suh MD Work Phone: [facility] 01-29-2024 16:33-0400 Diastolic blood pressure 68 mm[Hg] Lida Suh MD Work Phone: [facility] 01-29-2024 16:33-0400 Heart rate 73 /min Lida Suh MD Work Phone: [facility] 01-29-2024 16:33-0400 Systolic blood pressure 94 mm[Hg] Lida Suh MD Work Phone: [facility] 11-13-2023 11:37-0400 Body height 188 cm Lida Suh MD Work Phone: [facility] 11-13-2023 11:37-0400 Body mass index (BMI) [Ratio] 31.46 kg/m2 Lida Suh MD Work Phone: [facility] 11-13-2023 11:37-0400 Body weight 111.13 kg Lida Suh MD Work Phone: [facility] 11-13-2023 11:37-0400 Diastolic blood pressure 72 mm[Hg] Lida Suh MD Work Phone: [facility] 11-13-2023 11:37-0400 Heart rate 69 /min Lida Suh MD Work Phone: [facility] 11-13-2023 11:37-0400 Systolic blood pressure 106 mm[Hg] Lida Suh MD Work Phone: [facility] 10-17-2023 09:02-0400 Body height 188 cm Pmh 1 [facility] 10-17-2023 09:02-0400 Body mass index (BMI) [Ratio] 32.1 kg/m2 Pmh 1 [facility] 10-17-2023 09:02-0400 Body weight 113.4 kg Pmh 1 [facility] 09-04-2023 14:11-0500 Body height 188 cm Lida Suh MD Work Phone: [facility] 09-04-2023 14:11-0500 Body mass index (BMI) [Ratio] 31.46 kg/m2 Lida Suh MD Work Phone: [facility] 09-04-2023 14:11-0500 Body weight 111.13 kg Lida Suh MD Work Phone: [facility] 09-04-2023 14:11-0500 Diastolic blood pressure 75 mm[Hg] Lida Suh MD Work Phone: [facility] 09-04-2023 14:11-0500 Heart rate 76 /min Lida Suh MD Work Phone: [facility] 09-04-2023 14:11-0500 Systolic blood pressure 116 mm[Hg] Lida Suh MD Work Phone: [facility] 10-22-2022 15:54-0400 Diastolic blood pressure 46 mm[Hg] Brooklynn Aichholz Work Phone: [facility] 10-22-2022 15:54-0400 Heart rate 69 /min Brooklynn Aichholz Work Phone: [facility] 10-22-2022 15:54-0400 Respiratory rate 16 /min Brooklynn Aichholz Work Phone: [facility] 10-22-2022 15:54-0400 SaO2% (BldA) [Mass fraction] 99 % Brooklynn Aichholz Work Phone: [facility] 10-22-2022 15:54-0400 Systolic blood pressure 97 mm[Hg] Brooklynn Aichholz Work Phone: [facility] 10-22-2022 14:07-0400 Body height 187.96 cm Brooklynn Aichholz Work Phone: [facility] 10-22-2022 14:07-0400 Body temperature 97.2 [degF] Brooklynn Aichholz Work Phone: [facility] 10-22-2022 14:07-0400 Body weight 113.39 kg Brooklynn Aichholz Work Phone: [facility] 09-04-2022 23:07-0500 Heart rate 73 /min Brooklynn Aichholz Work Phone: [facility] 09-04-2022 23:07-0500 Respiratory rate 18 /min Brooklynn Aichholz Work Phone: [facility] 09-04-2022 23:07-0500 SaO2% (BldA) [Mass fraction] 99 % Brooklynn Aichholz Work Phone: [facility] 09-04-2022 22:55-0500 Body temperature 97.7 [degF] Brooklynn Aichholz Work Phone: [facility] 09-04-2022 22:55-0500 Diastolic blood pressure 84 mm[Hg] Brooklynn Aichholz Work Phone: [facility] 09-04-2022 22:55-0500 Systolic blood pressure 123 mm[Hg] Brooklynn Aichholz Work Phone: [facility] 09-04-2022 22:11-0500 Body height 189.23 cm Brooklynn Aichholz Work Phone: [facility] 09-04-2022 22:11-0500 Body weight 117.4 kg Brooklynn Aichholz Work Phone: [facility] Encounters Encounter Date Encounter Type Care Provider Facility Start: 10-13-2024 End: 10-13-2024 Orders Only Brooklynn Shobha WIRELESS TELEGRAPHER Work Phone: [facility] Comment on above: Vitamin D deficiency (Primary Dx) Start: 10-12-2024 End: 10-12-2024 Clinisync Result Encounter Brooklynn Shobha WIRELESS TELEGRAPHER Work Phone: [facility] Unsolicited Start: 10-12-2024 End: 10-12-2024 Clinisync Result Encounter Brooklynn Shobha WIRELESS TELEGRAPHER Work Phone: [facility] Unsolicited Start: 10-12-2024 End: 10-12-2024 Refill Brooklynn Aichholz WIRELESS TELEGRAPHER Work Phone: [facility] Comment on above: Vitamin D deficiency (Primary Dx) Start: 10-05-2024 End: 10-05-2024 ambulatory BROOKLYNN AICHHOLZ Not Available Start: 09-16-2024 End: 09-16-2024 Telephone encounter Lida Suh MD Work Phone: [facility] Start: 09-11-2024 End: 09-14-2024 Clinisync Result Encounter Generic External Data Provider [facility] Unsolicited Start: 09-11-2024 End: 09-14-2024 Clinisync Result Encounter Generic External Data Provider [facility] Unsolicited Start: 08-19-2024 End: 08-19-2024 Office outpatient visit 15 minutes Lida Suh MD Work Phone: [facility] Comment on above: Elevated PSA (Primar y Dx); Malignant neoplasm of overlapping sites of bladder ([facility]CC) Start: 08-19-2024 End: 08-19-2024 ambulatory LIDA SUH [facility] Start: 08-18-2024 End: 08-18-2024 Clinisync Result Encounter Brooklynn Aichholz WIRELESS TELEGRAPHER Work Phone: [facility] Unsolicited Start: 08-18-2024 End: 08-18-2024 Clinisync Result Encounter Brooklynn Aichholz WIRELESS TELEGRAPHER Work Phone: [facility] Unsolicited Start: 08-18-2024 End: 08-18-2024 Refill Brooklynn Aichholz WIRELESS TELEGRAPHER Work Phone: [facility] Comment on above: Vitamin D deficiency (Primary Dx) Start: 08-14-2024 End: 08-14-2024 Orders Only Brooklynn Aichholz WIRELESS TELEGRAPHER Work Phone: [facility] Comment on above: Hypocalcemia (Primar y Dx); Hyperglycemia Start: 08-13-2024 End: 08-13-2024 Clinisync Result Encounter Brooklynn Eaglegavin WIRELESS TELEGRAPHER Work Phone: [facility] Unsolicited Start: 08-13-2024 End: 08-13-2024 Clinisync Result Encounter Brooklynn Eagledaltonz WIRELESS TELEGRAPHER Work Phone: [facility] Unsolicited Start: 07-30-2024 End: 07-30-2024 Bamboo flowsheet Brooklynn Eagledaltonz WIRELESS TELEGRAPHER Work Phone: [facility] Start: 07-30-2024 End: 07-30-2024 Bamboo flowsheet Brooklynn Eagleholz WIRELESS TELEGRAPHER Work Phone: [facility] Start: 07-30-2024 End: 07-30-2024 Office outpatient visit 25 minutes Brooklynn Shobha WIRELESS TELEGRAPHER Work Phone: [facility] Comment on above: Bipolar disorder, cu rrent episode mixed, mild (CMS/HCC) (Primary Dx); Malignant neoplasm of overlapping sites of bladder (CMS/HCC); Obesity (BMI 30-39.9); Mixed hyperlipidemia (CMS/HCC); Tobacco user; Bipolar affective disorder, remission status unspecified (CMS/HCC) Start: 07-30-2024 End: 07-30-2024 ambulatory BROOKLYNN AICHHOLZ Not Available Start: 07-20-2024 End: 07-20-2024 Refill Brooklynn Aichholz WIRELESS TELEGRAPHER Work Phone: [facility] Comment on above: Mixed hyperlipidemia (CMS/HCC); Bipolar affective disorder, remission status unspecified (CMS/HCC) Start: 07-02-2024 End: 07-02-2024 Refill Brooklynn Aichholz WIRELESS TELEGRAPHER Work Phone: [facility] Comment on above: COVID (Primary Dx) Start: 06-17-2024 End: 06-17-2024 Telephone encounter Lida Suh MD Work Phone: [facility] Start: 06-17-2024 End: 06-17-2024 [facility] Start: 06-16-2024 End: 06-16-2024 ambulatory BROOKLYNN Adi YEAGER [facility] Start: 05-22-2024 End: 05-22-2024 Orders Only Lida Suh MD Work Phone: [facility] Comment on above: Malignant neoplasm o f overlapping sites of bladder (CMS-HCC) (Primary Dx) Start: 04-15-2024 End: 04-15-2024 Refill Brooklynn Shobha WIRELESS TELEGRAPHER Work Phone: [facility] Comment on above: Mixed hyperlipidemia (CMS/HCC); Bipolar affective disorder, remission status unspecified (CMS/HCC) Start: 03-30-2024 End: 03-30-2024 Bamboo flowsheet Brooklynn Aichholz WIRELESS TELEGRAPHER Work Phone: [facility] Start: 03-30-2024 End: 03-30-2024 Bamboo flowsheet Brooklynn Aichholz WIRELESS TELEGRAPHER Work Phone: [facility] Start: 03-30-2024 End: 03-30-2024 Office outpatient visit 25 minutes Brooklynn Shobha WIRELESS TELEGRAPHER Work Phone: [facility] Comment on above: Bipolar affective di sorder, remission status unspecified (CMS/HCC) (Primary Dx); Malignant neoplasm of overlapping sites of bladder (CMS/HCC); Tobacco user; Lump of skin; Contusion of scalp, initial encounter; Mixed hyperlipidemia (CMS/HCC) Start: 03-30-2024 End: 03-30-2024 ambulatory BROOKLYNN AICHHOLZ Not Available Start: 03-18-2024 End: 03-18-2024 Telephone encounter Lida Suh MD Work Phone: [facility] Start: 03-18-2024 End: 03-18-2024 Evaluation and management of inpatient LIDA SUH [facility] [place] Start: 03-17-2024 End: 03-17-2024 ambulatory BROOKLYNN Adi YEAGER [facility] Start: 03-09-2024 End: 03-09-2024 [facility] [place] Start: 01-29-2024 End: 01-29-2024 Office outpatient visit 15 minutes Lida Suh MD Work Phone: [facility] Comment on above: Urinary incontinence , unspecified type (Primary Dx); Elevated PSA; Malignant neoplasm of overlapping sites of bladder (CMS-HCC) Start: 01-29-2024 End: 01-29-2024 [facility] Start: 01-21-2024 End: 01-21-2024 Telephone encounter Darcie GARCIA [facility] Start: 12-19-2023 End: 12-19-2023 Orders Only Lida Suh MD Work Phone: [facility] Start: 12-02-2023 End: 12-02-2023 ambulatory BROOKLYNN Adi [facility] Start: 12-01-2023 End: 12-02-2023 Evaluation and management of inpatient [facility] Start: 12-01-2023 End: 12-01-2023 Emergency department patient visit Brooklynn Muñozgavin Facility:[facility] Start: 11-29-2023 End: 11-29-2023 Emergency department patient visit BROOKLYNN Adi [facility] Start: 11-22-2023 End: 11-22-2023 [facility] [place] Start: 11-14-2023 End: 11-14-2023 ambulatory LIDA King [facility] Start: 11-13-2023 End: 11-13-2023 Telephone encounter Lida Suh MD Work Phone: [facility] Start: 11-13-2023 End: 11-13-2023 Office outpatient visit 25 minutes Lida Suh MD Work Phone: [facility] Comment on above: Malignant neoplasm o f overlapping sites of bladder ([facility]-HCC) (Primary Dx); Elevated PSA Start: 11-13-2023 End: 11-13-2023 ambulatory [facility] Start: 11-13-2023 End: 11-13-2023 ambulatory [facility] Start: 11-07-2023 End: 11-13-2023 Orders Only Lida Suh MD Work Phone: [facility] Comment on above: Hematuria, microscop ic (Primary Dx) Start: 10-31-2023 End: 10-31-2023 Telephone encounter Guanako Martines CMA [facility] Start: 10-30-2023 End: 10-30-2023 Telephone encounter Lida Suh MD Work Phone: [facility] Start: 10-30-2023 End: 10-30-2023 Evaluation and management of inpatient EFE HENDERSON [facility] Start: 10-30-2023 End: 10-30-2023 Evaluation and management of inpatient [facility] Start: 10-17-2023 End: 10-17-2023 Patient encounter procedure Pmh Pre-Admission Testing [address] [facility] - Pre Admit Start: 10-17-2023 End: 10-17-2023 ambulatory [facility] Start: 09-27-2023 End: 09-27-2023 ambulatory [facility] Start: 09-04-2023 Telephone encounter Lida Suh MD Work Phone: [facility] Start: 09-04-2023 End: 09-04-2023 Office consultation new/estab patient 60 min Lida Suh MD Work Phone: [facility] Comment on above: Elevated PSA (Primar y Dx); Hematuria, microscopic Start: 09-04-2023 End: 09-04-2023 ambulatory CONCRETE Christine [facility] Start: 09-04-2023 End: 09-04-2023 ambulatory LIDA KingKamila SUH [facility] Start: 08-27-2023 Refill Brooklynn Yeager WIRELESS TELEGRAPHER Work Phone: [facility] Comment on above: Mixed hyperlipidemia (CMS/HCC) (Primary Dx) Start: 08-21-2023 Telephone encounter Brooklynn martinez WIRELESS TELEGRAPHER Work Phone: [facility] Start: 10-22-2022 End: 10-22-2022 Admission to same day surgery center Brooklynn Yeager Work Phone: [facility] [place] Start: 10-22-2022 End: 10-22-2022 ambulatory Brooklynn Yeager Work Phone: [facility] Work Phone: Start: 10-03-2022 End: 10-03-2022 ambulatory Brooklynn Yeager Work Phone: [facility] Work Phone: Start: 10-03-2022 End: 10-03-2022 Departed Referred Brooklynn Eagledaltonvelia Work Phone: [facility] [place] Work Phone: Start: 09-18-2022 End: 09-19-2022 ambulatory ALONSO ALEXIS WANDASavageDALTONZ Facility:[facility] Start: 09-04-2022 End: 09-05-2022 Emergency department patient visit Brooklynn Yeager Work Phone: [facility] Work Phone: Start: 03-08-2022 End: 03-09-2022 ambulatory COMPUTER SCIENCE INTERN BROOKLYNN WANDASavageHOLZ Facility:[facility] Start: 11-03-2021 End: 11-03-2021 ambulatory COMPUTER SCIENCE INTERN BROOKLYNN WANDAHHOLZ Facility:[facility] Start: 02-04-2018 Patient encounter KINJAL Gresham ity:[facility] Start: 02-03-2018 Patient encounter KINJAL Gresham ity:[facility] Procedures Date Procedure Procedure Detail Performing Clinician Start: 10-12-2024 ALL BASIC METABOLIC PANEL Brooklynn Eaglegavin WIRELESS TELEGRAPHER Work Phone: Start: 09-11-2024 UPPER RESPIRATORY CULTURE Generic External Data Provider Start: 08-18-2024 MLR HEMOGLOBIN A1C Brooklynn Eaglegavin WIRELESS TELEGRAPHER Work Phone: Start: 08-13-2024 ALL LIPID PROFILE (FASTING) Brooklynn Shobha WIRELESS TELEGRAPHER Work Phone: Start: 08-13-2024 ALL THYROID STIM HORMONE Brooklynn Wandasavagegavin WIRELESS TELEGRAPHER Work Phone: Start: 08-13-2024 [facility]CF CMP (CMP) (FOR [facility] USE) Brooklynn Wandasavagegavin WIRELESS TELEGRAPHER Work Phone: Start: 01-29-2024 MEASURE POST VOID RESIDUAL Lida Suh MD Work Phone: Start: 12-01-2023 Adult depression scr eening assessment Lida Suh MD Work Phone: Start: 11-13-2023 Follow-up visit Follow-up LIDA SUH Start: 10-22-2022 Excision of cyst Brooklynn Orourke peg Work Phone: Start: 10-03-2022 Colonoscopy Brooklynn Gabbie martinez WIRELESS TELEGRAPHER Work Phone: Start: 09-04-2022 Plain X-ray abdomen Tawny orourke Shobha Work Phone: Start: 09-04-2022 SARS-CoV-2, Influenz a & RSV (PCR) Brooklynn Shobha Work Phone: Start: 03-08-2022 PSA screening COMPUTER SCIENCE INTERN BROOKLYNN SHOBHA Comment on above: Performed By: #### P [facility] #### [facility] [address] [place] [address] Dr. Pablo Blanchard Plan of Treatment Date Care Activity Detail Author Start: 10-03-2032 Screening for malign ant neoplasm of colon [facility] Start: 08-23-2025 End: 08-23-2025 Patient encounter procedure 08/23/2025 1:45 PM EST Office Visit [facility] [address] [place] [address] [place] [address] Lida Suh MD [address] [place] [address] [facility] Start: 08-19-2025 Adult BMI Screening Adult BMI Screen ing [facility] Start: 08-19-2025 End: 07-20-2026 Prostatic specific antigen, diagnostic Prostatic specific antigen, diagnostic Lab Routine Elevated PSA Expected: 08/19/2025 (Approximate), Expires: 07/20/2026 [facility] Work Phone: Comment on above: Expected: 08/19/2025 (Approximate), Expires: 07/20/2026 Start: 08-19-2025 Tobacco Screening Tobacco Screening [facility] Start: 06-17-2025 Tobacco Screening Tobacco Screening [facility] Start: 04-28-2025 End: 04-28-2025 Patient encounter procedure 04/28/2025 8:40 AM EDT Office Visit [facility] [address] [place] [address] Brooklynn Yeager, ROSA [address] [place] [address] [facility] Start: 03-18-2025 Tobacco Screening Tobacco Screening [facility] Start: 03-17-2025 Adult BMI Screening Adult BMI Screen ing [facility] Start: 01-28-2025 Adult BMI Screening Adult BMI Screen ing [facility] Start: 01-28-2025 Tobacco Screening Tobacco Screening [facility] Start: 12-14-2024 End: 10-13-2025 25-hydroxyvitamin D3 [Mass/volume] in Serum or Plasma Vitamin D 25 hydroxy Lab Routine Vitamin D deficiency Expected: 12/14/2024 (Approximate), Expires: 10/13/2025 [facility] Work Phone: Comment on above: Expected: 12/14/2024 (Approximate), Expires: 10/13/2025 Start: 12-01-2024 Adult BMI Screening Adult BMI Screen ing [facility] Start: 11-30-2024 Depression Screening Depression Scre ening [facility] Start: 11-30-2024 Tobacco Screening Tobacco Screening [facility] Start: 11-12-2024 Adult BMI Screening Adult BMI Screen ing [facility] Start: 11-12-2024 Tobacco Screening Tobacco Screening [facility] Start: 10-29-2024 Adult BMI Screening Adult BMI Screen ing [facility] Start: 10-29-2024 Tobacco Screening Tobacco Screening [facility] Start: 10-16-2024 End: 08-18-2025 25-hydroxyvitamin D3 [Mass/volume] in Serum or Plasma Vitamin D 25 hydroxy Lab Routine Vitamin D deficiency Expected: 10/16/2024 (Approximate), Expires: 08/18/2025 [facility] Work Phone: Comment on above: Expected: 10/16/2024 (Approximate), Expires: 08/18/2025 Start: 10-16-2024 Adult BMI Screening Adult BMI Screen ing [facility] Start: 10-16-2024 Tobacco Screening Tobacco Screening [facility] Start: 10-05-2024 End: 10-05-2024 Patient encounter procedure 10/05/2024 8:40 AM EDT Office Visit [facility] [address] [place] [address] Brooklynn Yeager NP [address] [place] [address] [facility] Start: 09-04-2024 Adult BMI Screening Adult BMI Screen ing [facility] Start: 09-04-2024 Tobacco Screening Tobacco Screening [facility] Start: 08-19-2024 End: 08-19-2024 Patient encounter procedure 08/19/2024 3:45 PM EST Office Visit [facility] [address] [facility] [place] [phone] Lida Suh MD [address] [place] [id number] [facility] Start: 08-14-2024 End: 08-14-2025 25-hydroxyvitamin D3 [Mass/volume] in Serum or Plasma Vitamin D 25 hydroxy Lab Routine Hypocalcemia Expected: 08/14/2024 (Approximate), Expires: 08/14/2025 [facility] Work Phone: Comment on above: Expected: 08/14/2024 (Approximate), Expires: 08/14/2025 Start: 08-14-2024 End: 08-14-2025 Hemoglobin A1c/Hemoglobin.total in Blood Hemoglobin A1c Lab Routine Hyperglycemia Expected: 08/14/2024 (Approximate), Expires: 08/14/2025 [facility] Comment on above: Expected: 08/14/2024 (Approximate), Expires: 08/14/2025 Start: 07-30-2024 End: 07-30-2025 CBC W Auto Differential panel - Blood CBC and differential Lab Routine Tobacco user Expected: 07/30/2024 (Approximate), Expires: 07/30/2025 [facility] Comment on above: Expected: 07/30/2024 (Approximate), Expires: 07/30/2025 Start: 07-30-2024 End: 07-30-2025 Comprehensive metabolic 2000 panel - Serum or Plasma Comprehensive metabolic panel Lab Routine Obesity (BMI 30-39.9) Bipolar disorder, current episode mixed, mild (CMS/HCC) Mixed hyperlipidemia (CMS/HCC) Expected: 07/30/2024 (Approximate), Expires: 07/30/2025 [facility] Comment on above: Expected: 07/30/2024 (Approximate), Expires: 07/30/2025 Start: 07-30-2024 End: 07-30-2025 Lipid 1996 panel - Serum or Plasma Lipid panel Lab Routine Mixed hyperlipidemia (CMS/HCC) Expected: 07/30/2024 (Approximate), Expires: 07/30/2025 [facility] Work Phone: Comment on above: Expected: 07/30/2024 (Approximate), Expires: 07/30/2025 Start: 07-30-2024 End: 07-30-2025 Thyrotropin [Units/volume] in Serum or Plasma TSH Lab Routine Bipolar disorder, current episode mixed, mild (CMS/HCC) Expected: 07/30/2024 (Approximate), Expires: 07/30/2025 [facility] Comment on above: Expected: 07/30/2024 (Approximate), Expires: 07/30/2025 Start: 07-30-2024 End: 07-30-2025 Thyroxine (T4) free [Mass/volume] in Serum or Plasma T4, free Lab Routine Bipolar disorder, current episode mixed, mild (CMS/HCC) Expected: 07/30/2024 (Approximate), Expires: 07/30/2025 [facility] Comment on above: Expected: 07/30/2024 (Approximate), Expires: 07/30/2025 Start: 07-30-2024 End: 07-30-2024 [facility] Comment on above: Obesity (BMI 30-39.9 ) (Primary Dx); Malignant neoplasm of overlapping sites of bladder (CMS/HCC); Bipolar disorder, current episode mixed, mild (CMS/HCC); Mixed hyperlipidemia (CMS/HCC); Tobacco user Start: 06-17-2024 End: 06-17-2024 Admission to same day surgery center 06/17/2024 11:30 AM EST - 06/17/2024 12:00 PM EST Surgery [facility] [address] [place] [address] Lida Suh MD [address] [place] [address] CYSTOSCOPY [14941 (CPT )] [facility] Comment on above: CYSTOSCOPY [08847 (C PT )] Start: 06-17-2024 End: 06-17-2024 Cystourethroscopy [facility] Start: 06-17-2024 Subsequent hospital visit by physician 06/17/2024 11:30 AM EST Hospital Encounter [facility] [address] [facility] [facility] [place] [address] Lida Suh MD [address] [place] [id number] [facility] - [facility] Start: 06-16-2024 End: 06-16-2024 ambulatory 06/16/2024 3:40 PM EST Support Visit [facility] - Pre Admit [address] [place] [phone] [facility] - Pre Admit Start: 06-08-2024 End: 06-08-2024 Patient encounter procedure 06/08/2024 2:45 PM EST Office Visit [facility] [address] [place] [phone] Lida Suh MD [address] [place] [id number] [facility] Start: 05-20-2024 End: 05-20-2024 Patient encounter procedure 05/20/2024 2:30 PM EST Office Visit [facility] [address] [place] [phone] Lida Suh MD [address] [place] [phone] [facility] Start: 05-11-2024 End: 11-12-2024 Prostatic specific antigen, diagnostic Prostatic specific antigen, diagnostic Lab Routine Elevated PSA Expected: 05/11/2024 (Approximate), Expires: 11/12/[address] [facility] Comment on above: Expected: 05/11/2024 (Approximate), Expires: 11/12/2024 Start: 03-30-2024 End: 03-30-2024 Patient encounter procedure 03/30/2024 9:00 AM EDT Office Visit [facility] [address] [place] [address] Brooklynn Yeager, WIRELESS TELEGRAPHER [address] [place] [address] Arrived [facility] Comment on above: Arrived Start: 03-18-2024 End: 03-18-2024 Admission to same day surgery center 03/18/2024 8:00 AM EDT - 03/18/2024 8:30 AM EDT Surgery [facility] [address] [place] [phone] Lida Suh MD [address] [place] [address] [id number] CYSTOSCOPY [96039 (CPT )] [facility] Comment on above: CYSTOSCOPY [05965 (C PT )] Start: 03-18-2024 End: 03-18-2024 Cystourethroscopy [facility] Start: 03-18-2024 Subsequent hospital visit by physician 03/18/2024 8:00 AM EDT Hospital Encounter [facility] [address] [place] [phone] Lida Suh MD [address] [place] [phone] [facility] Start: 03-17-2024 End: 03-17-2024 ambulatory 03/17/2024 4:20 PM EDT Support Visit [facility] - Pre Admit [address] [facility] [place] [phone] [facility] - Pre Admit Start: 03-15-2024 COVID-19 Vaccine ( season) COVID-19 Vaccine ( season) [facility] Start: 03-15-2024 COVID-19 Vaccine ( season) COVID-19 Vaccine ( season) [facility] Start: 03-15-2024 Influenza vaccination Influenza Vacc ine [facility] Start: 02-13-2024 End: 11-12-2024 Cytology Cytology Pathology and Cytology Routine Malignant neoplasm of overlapping sites of bladder ([facility]) Expected: 02/13/2024 (Approximate), Expires: 11/12/2024 [facility] Comment on above: Expected: 02/13/2024 (Approximate), Expires: 11/12/2024 Start: 02-13-2024 End: 11-12-2024 Urovysion for bladder Urovysion for bladder Lab Routine Malignant neoplasm of overlapping sites of bladder ([facility]) Expected: 02/13/2024 (Approximate), Expires: 11/12/2024 [facility] Comment on above: Expected: 02/13/2024 (Approximate), Expires: 11/12/2024 Start: 01-29-2024 End: 01-29-2024 Patient encounter procedure 01/29/2024 4:00 PM EDT Office [facility] [address] [place] [phone] Lida Suh MD [address] [place] [address] [phone] [facility] Start: 12-18-2023 End: 12-18-2023 Patient encounter procedure 12/18/2023 12:15 PM EDT Office Visit [facility] [address] [place] [phone] Lida Suh MD [address] [place] [address] [phone] [facility] Start: 11-22-2023 End: 11-22-[address] [facility] Start: 11-13-2023 End: 11-12-2024 NM Whole body Bone Views NM bone scan whole body Imaging Routine Malignant neoplasm of overlapping sites of bladder ([facility]) Elevated PSA Expected: 11/13/2023, Expires: 11/12/2024 [facility] Comment on above: Expected: 11/13/2023 , Expires: 11/12/2024 Start: 11-13-2023 End: 11-13-2023 Patient encounter procedure 11/13/2023 11:45 AM EDT Office [facility] [address] [place] [address] [place] [phone] Lida Suh MD [address] [place] [phone] [facility] Start: 11-04-2023 End: 11-04-2023 Patient encounter procedure [facility] Start: 10-30-2023 End: 10-30-2023 Admission to same day surgery center 10/30/2023 9:30 AM EDT - 10/30/2023 10:[address] [facility] [address] [place] [phone] Lida Suh MD [address] [place] [id number] CYSTOSCOPY [40657 (CPT )] [facility] Comment on above: CYSTOSCOPY [29214 (C PT )] Start: 10-30-2023 End: 10-30-2023 Cysto bladder w/ureteral catheterization CYSTOSCOPY RETROGRADE PYELOGRAM Hematuria, microscopic 10/30/2023 9:30 AM EDT [facility] Start: 10-30-2023 End: 10-30-2023 CYSTOSCOPY TRANSURETHRAL RESECTION BLADDER TUMOR CYSTOSCOPY TRANSURETHRAL RESECTION BLADDER TUMOR Hematuria, microscopic 10/30/2023 9:30 AM EDT [facility] Start: 10-30-2023 End: 10-30-2023 Cystourethroscopy CYSTOSCOPY Hematuria, microscopic 10/30/2023 9:30 AM EDT [facility] Start: 10-30-2023 End: 10-30-2023 Cystourethroscopy with biopsy CYSTOSCOPY BIOPSY BLADDER Hematuria, microscopic 10/30/2023 9:30 AM EDT [facility] Start: 10-30-2023 Subsequent hospital visit by physician 10/30/2023 9:30 AM EDT Hospital Encounter [facility] [address] [place] [address] Lida Suh MD [address] [place] [id number] [facility] Start: 10-22-2023 End: 09-03-2024 Prostatic specific antigen, diagnostic Prostatic specific antigen, diagnostic Lab Routine Elevated PSA Expected: 10/22/2023, Expires: 09/03/2024 [facility] Comment on above: Expected: 10/22/2023 , Expires: 09/03/2024 Start: 09-26-2023 End: 09-26-2023 Patient encounter procedure 09/26/2023 9:00 AM EDT Office Visit [facility] [address] [place] [phone] Brooklynn Yeager NP [address] [place] [address] [facility] Start: 09-04-2023 End: 09-04-2024 CT Kidney and Ureter and Urinary bladder 3D post processing WO and W contrast IV CT urogram Imaging Routine Hematuria, microscopic Expected: 09/04/2023, Expires: 09/04/2024 [facility] Work Phone: Comment on above: Expected: 09/04/2023 , Expires: 09/04/2024 Start: 03-15-2023 COVID-19 Vaccine ( season) COVID-19 Vaccine ( season) [facility] Start: 03-15-[address] [facility] Start: 10-22-2022 [facility] Start: 09-04-2022 Plain X-ray abdomen XR abdomen min 2 V [facility] Start: 09-04-2022 XR Abdomen Views [facility] Start: 1988 DTaP,Tdap and Td Vac cines (1 - Tdap) DTaP,Tdap and Td Vaccines (1 - Tdap) [facility] Start: 12-27-1987 Adult BMI Follow Up Plan Adult BMI Follow Up Plan [facility] Start: 1981 Depression Screening Depression Scre ening [facility] Start: 1969 Screening for malign ant neoplasm of colon [facility] Start: 1969 Tobacco Counseling Tobacco Counselin g [facility] End: 11-06-2024 Bacteria identified in Urine by Culture Urine Culture Microbiology Routine Hematuria, microscopic 1 Occurrences starting 11/07/2023 until 11/06/2024 [employer] Work Phone: Comment on above: 1 Occurrences starti ng 11/07/2023 until 11/06/2024 End: 11-12-2024 Bacteria identified in Urine by Culture Urine Culture Microbiology Routine Malignant neoplasm of overlapping sites of bladder ([facility]) 1 Occurrences starting 11/13/2023 until 11/12/2024 [employer] Work Phone: Comment on above: 1 Occurrences starti ng 11/13/2023 until 11/12/2024 Bacteria identified in Urine by Culture Urine Culture Microbiology Routine Malignant neoplasm of overlapping sites of bladder ([facility]) 11/13/2023 10:20 PM EDT [facility] [employer] End: 09-03-2024 Cytology Cytology Pathology and Cytology Routine Hematuria, microscopic 1 Occurrences starting 09/04/2023 until 09/03/2024 [facility] [employer] Comment on above: 1 Occurrences starti ng 09/04/2023 until 09/03/2024 Patient Education [facility] Work Phone: Patient referral [facility] Work Phone: Immunizations Immunization Date Immunization Notes Care Provider Fa cili 09-11-2022 zoster vaccine recombinant Lida Suh MD Work Phone: [facility] 05-31-2022 zoster vaccine recombinant Lida Suh MD Work Phone: [facility] Payers Date Payer Category Payer Medicaid HMO [facility] MEDICA[facility] [id number] 2023 Medicaid [id number] 2023 Private Health Insurance [id number] [id number] 2023 Medicaid [id number] 1969 Unknown [id number] 2.16.840.1.448698.3.579. 2.593 1969 Unknown [id number] 2.16.840.1.771633.3.579. 2.593 1969 Unknown [id number] 2.16.840.1.034458.3.579. 2.1286 1969 Unknown [id number] 2.16.840.1.522757.3.579. 2.128 1969 Unknown [id number] 2.16.840.1.871432.3.579. 2.128 1969 Unknown [id number] 2.16.840.1.568437.3.579. 2.128 1969 Unknown [id number] 2.16.840.1.690218.3.579. 2.1285 1969 Unknown [id number] 2.16.840.1.476426.3.579. 2.1285 1969 Unknown [id number] 2.16.840.1.705813.3.579. 2.1285 1969 Unknown [id number] 2.16.840.1.559032.3.579. 2.1285 1969 Unknown [id number] 2.16.840.1.858379.3.579. 2.1285 1969 Unknown [id number] 2.16.840.1.267994.3.579. 2.1285 1969 Unknown [id number] 2.16.840.1.268215.3.579. 2.1285 1969 Unknown [id number] 2.16.840.1.234207.3.579. 2.1285 1969 Unknown [id number] 2.16.840.1.576885.3.579. 2.1285 1969 Unknown [id number] 2.16.840.1.430141.3.579. 2.1285 1969 Unknown [id number] 2.16.840.1.141944.3.579. 2.1285 1969 Unknown [id number] 2.16.840.1.455453.3.579. 2.1285 1969 Unknown [id number] 2.16.840.1.064972.3.579. 2.1285 1969 Unknown [id number] 2.16.840.1.085202.3.579. 2.1285 1969 Unknown [id number] 2.16.840.1.447126.3.579. 2.1285 1969 Unknown [id number] 2.16.840.1.863561.3.579. 2.1285 1969 Unknown [id number] 2.16.840.1.909730.3.579. 2.1286 1969 Unknown [id number] 2.16.840.1.903343.3.579. 2.1286 1969 Unknown [id number] 2.16.840.1.188341.3.579. 2.1286 1969 Unknown [id number] 2.16.840.1.575163.3.579. 2.1259 1969 Unknown [id number] 2.16.840.1.850524.3.579. 2.1259 1969 Unknown [id number] 2.16.840.1.058578.3.579. 2.1259 1959 Self-pay [id number] 1959 Unknown [id number] Unknown [id number] 2.16.840.1.500561.3.579. 2.593 Unknown [id number] 2.16.840.1.442904.3.579. 2.531 Social History Date Type Detail Facility Start: 09-04-2022 End: 10-22-2022 Tobacco smoking status [facility] Smoker (finding) [facility] Start: 1970 Sex Assigned At Male F [facility] Start: 07-17-2023 End: 07-30-2024 Tobacco smoking status [facility] Smokes tobacco daily [facility] Start: 07-15-1988 History of tobacco use Cigarette Smo ker [facility] Start: 07-17-2023 End: 03-23-2024 Cigarettes smoked current (pack per day) - Reported 1 [facility] Start: 08-21-2023 End: 10-05-2024 Alcohol intake Ex-drinker (finding) [facility] Start: 07-22-2023 End: 03-23-2024 Tobacco use panel [facility] Start: 07-21-2023 [...] to any clubs or organizations such as temple groups, unions, fraternal or athletic groups, or [...] Tobacco use and exposure Smokeless tobacco non-user [facility] Start: 06-17-2024 End: 08-19-2024 Alcoholic beverage intake Lifetime non-drinker (finding) [facility] How often to you hav e a drink containing alcohol? Monthly or less [facility] How many standard dr inks containing alcohol do you have on a typical day? 1 or 2 [facility] Start: 08-06-2023 Sex Male (finding) [facility] Goals Date Patient Goal Desired [...] pt per Dr. Suh note: Cysto local [place] setup 6 months diagnosis history bladder carcinoma. Advised pt that Yoselyn Suh numerical control tool programmer will call him when it is time to schedule his cysto. Pt advised understanding of this. documented in this encounter [facility] 09-16-2024 Telephone encounter Note Patient called to inquire if his cystoscopy will be every 6 months. I advised pt per Dr. Suh note: Cysto local [place] setup 6 months diagnosis history bladder carcinoma. Advised pt that Yoselyn Suh numerical control tool programmer will call him when it is time to schedule his cysto. Pt advised understanding of this. [facility] 08-19-2024 Evaluation + Plan note Associated Problem(s): Elevated PSA He does have some difficulty urinating in the morning. I did ask if it is bad enough for him to take it daily medication it was not. It is only isolated. He voids well otherwise. He is happy with the current state. [facility] 08-19-2024 Miscellaneous Notes Associated Problem(s): Elevated PSA He does have some difficulty urinating in the morning. I did ask if it is bad enough for him to take it daily medication it was not. It is only isolated. He voids well otherwise. He is happy with the current state. documented in this encounter [facility] 08-19-2024 History of Presen t illness Narrative Images from the original note were not included. [address] [place] [address] [facility] [address] Patient: Reno Abreu Date of : 1970 [...] Date Bipolar disorder ([facility]) Bladder cancer ([facility]) Chronic constipation Depression Hyperlipidemia Visual impairment Past Surgical History: Procedure Laterality Date CHOLECYSTECTOMY 2020 COLONOSCOPY CYSTOSCOPY N/A 06/17/2024 Performed by Lida Suh MD at [facility] CYSTOSCOPY N/A 03/18/2024 Performed by Lida Suh MD at [facility] CYSTOSCOPY N/A 10/30/2023 Performed by Lida Suh MD at [facility] CYSTOSCOPY TRANSURETHRAL RESECTION BLADDER TUMOR N/A 10/30/2023 Performed by Lida Suh MD at [facility] LIPOMA RESECTION several History reviewed. No [...] for your understanding. documented in this encounter [facility] 07-30-2024 Instructions Brooklynn Yeager NP - 07/30/2024 8:40 AM EST Get fasting labs Continue with urology documented in this encounter [facility] 06-17-2024 Miscellaneous Notes Cysto local [place] setup 6 months diagnosis history bladder carcinoma. documented in this encounter [facility] 06-17-2024 Telephone encounter Note Cysto [facility] setup 6 months diagnosis history bladder carcinoma. [facility] 03-30-2024 History of Presen t illness [...] Abdominal pain 09/26/2023 Abnormal TSH Bipolar disorder (CMS/HCC) 07/22/2023 Chicken pox Cholelithiasis Constipation, chronic COVID-19 [...] Bridge of nose with palpable lump: approx [id number], non tender no induration noted no fluctuance [...] of this condition documented in this encounter [facility] 03-18-2024 Miscellaneous Notes Cysto local [place] 3 months diagnosis history bladder carcinoma. documented in this encounter [facility] 03-18-2024 Telephone encounter Note Cysto local [place] 3 months diagnosis history bladder carcinoma. [facility] 03-17-2024 Nurse Note Preoperative Education Checklist- General Surgery date: 03/18/24 Surgery time: 8a Arrival time: 7a 1. Bring a photo ID and your insurance card with you the day of surgery. You will check in at the main lobby of the [facility]- registration desk is straight ahead as soon as you walk in. Tell them you are here for surgery. 2. If you have a Living Will/Durable Power of Line Camera Operator for Health Care that is not [...] after you have bathed. 5. NO nail latvian/acrylic on at least one finger. If you are having a hand, wrist or foot surgery then all nail latvian and artificial/acrylic nails must be removed from [...] please call the Preadmission Testing office at [phone], Mon.-Fri. 7 a.m.-3 p.m. Leave a voicemail if needed. Pre-Surgery Instructions: Medication Instructions atorvastatin (LIPITOR) 10 mg tablet Stop taking 0 days prior to procedure lamoTRIgine (LaMICtal) 100 mg tablet Take morning of procedure citalopram (CeleXA) 20 mg tablet Stop taking 0 days prior to procedure [facility] 03-17-2024 Miscellaneous Notes Preoperative Education Checklist- General Surgery date: 03/18/24 Surgery time: 8a Arrival time: 7a 1. Bring a photo ID and your insurance card with you the day of surgery. You will check in at the main lobby of the [facility]- registration desk is straight ahead as soon as you walk in. Tell them you are here for surgery. 2. If you have a Living Will/Durable Power of Line Camera Operator for Health Care that is not [...] after you have bathed. 5. NO nail latvian/acrylic on at least one finger. If you are having a hand, wrist or foot surgery then all nail latvian and artificial/acrylic nails must be removed from [...] please call the Preadmission Testing office at [phone], Mon.-Fri. 7 a.m.-3 p.m. Leave a voicemail if needed. Pre-Surgery Instructions: Medication Instructions atorvastatin (LIPITOR) 10 mg tablet Stop taking 0 days prior to procedure lamoTRIgine (LaMICtal) 100 mg tablet Take morning of procedure citalopram (CeleXA) 20 mg tablet Stop taking 0 days prior to procedure documented in this encounter [facility] 01-29-2024 Evaluation + Plan note Associated Problem(s): Malignant neoplasm of overlapping sites of bladder (CMS-HCC) Postop day of have clots and clot retention. This has resolved. He was started on finasteride and Flomax at the time of the ER visit. He was not on these before. He can stop those. [facility] 01-29-2024 Miscellaneous Notes Associated Problem(s): Malignant neoplasm of overlapping sites of bladder ([facility]) Postop day of have clots and clot retention. This has resolved. He was started on finasteride and Flomax at the time of the ER visit. He was not on these before. He can stop those. Associated Problem(s): Elevated PSA He can stop his Flomax as well as finasteride documented in this encounter [facility] 01-29-2024 Evaluation + Plan note Associated Problem(s): Elevated PSA He can stop his Flomax as well as finasteride [facility] 01-29-2024 History of Presen t illness Narrative Images from the original note were not included. [address] [place] [address] [facility] [address] Patient: Reno Abreu Date of : 1970 [...] Date Bipolar disorder ([facility]) Chronic constipation Depression Hyperlipidemia Visual impairment Past Surgical History: Procedure Laterality Date CHOLECYSTECTOMY 2020 COLONOSCOPY CYSTOSCOPY N/A 10/30/2023 Performed by Lida Suh MD at [facility] CYSTOSCOPY TRANSURETHRAL RESECTION BLADDER TUMOR N/A 10/30/2023 Performed by Lida Suh MD at [facility] History reviewed. No pertinent family history. [...] for your understanding. documented in this encounter [facility] 01-21-2024 Miscellaneous Notes Patient calls in he is out of his Tamsulosin and Finasteride which he states he was prescribed in the ER. He is asking if you can refill it until he sees him in the office on Saturday01/29/24 - He was in the [place] ER - He was urinating blood clots causing him to go into Urinary retention. [facility] in [place] These were both refilled by me on December 18 to the appropriate pharmacy Patient informed to call [facility] to have them fill, as they may be on file. documented in this encounter [facility] 01-21-2024 Telephone encounter Note Patient calls in he is out of his Tamsulosin and Finasteride which he states he was prescribed in the ER. He is asking if you can refill it until he sees him in the office on Saturday01/29/24 - He was in the [place] ER - He was urinating blood clots causing him to go into Urinary retention. [facility] in [place] [facility] 01-21-2024 Telephone encounter Note These were both refilled by me on December 18 to the appropriate pharmacy [facility] 01-21-2024 Telephone encounter Note Patient informed to call [facility] to have them fill, as they may be on file. [facility] 12-19-2023 Miscellaneous Notes Richard from [facility] at Dr. Olsen's office in [place] is asking if pt is to continue [...] let pt know. documented in this encounter [facility] 12-19-2023 Telephone encounter Note Richard from [facility] at Dr. Olsen's office in [place] is asking if pt is to continue on the Flomax and the Proscar for more than a month? He was prescribed these at the ER and was only given 30 days worth of each. Pt was to see you yesterday, but is now scheduled for 01/29/2024. [facility] 12-19-2023 Telephone encounter Note I refilled those prescriptions when we see him in January we can determine what to do [facility] 12-19-2023 Telephone encounter Note Richard was notified and will let pt know. [facility] 11-13-2023 Evaluation + Plan note Associated Problem(s): Malignant neoplasm of overlapping sites of bladder (CMS-HCC) Patient with incidental finding CT urogram some bony changes. PSA is really not the elevated actually PSA is better now. Talked about potential metastasis. Certainly need a bone scan to evaluate. Return clinic. [facility] 11-13-2023 Miscellaneous Notes Associated Problem(s): Malignant neoplasm of overlapping sites of bladder (CMS-HCC) Patient with incidental finding CT urogram some bony changes. PSA is really not the elevated actually PSA is better now. Talked about potential metastasis. Certainly need a bone scan to evaluate. Return clinic. documented in this encounter [facility] 11-13-2023 Miscellaneous Notes 3-4 months cysto local [place] diagnosis history urothelial carcinoma. Urine for fish and cytology 2 weeks prior. documented in this encounter [facility] 11-13-2023 Telephone encounter Note 3-4 months cysto local [place] diagnosis history urothelial carcinoma. Urine for fish and cytology 2 weeks prior. [facility] 11-13-2023 History of Presen t illness Narrative Images from the original note were not included. [address] [place] [address] [facility] [address] Patient: Reno Abreu Date of : 1970 [...] Date Bipolar disorder ([facility]) Chronic constipation Depression Hyperlipidemia Visual impairment Past Surgical History: Procedure Laterality Date CHOLECYSTECTOMY 2020 COLONOSCOPY CYSTOSCOPY N/A 10/30/2023 Performed by Lida Suh MD at [facility] CYSTOSCOPY TRANSURETHRAL RESECTION BLADDER TUMOR N/A 10/30/2023 Performed by Lida Suh MD at [facility] History reviewed. No pertinent family history. Current Outpatient Medications Medication Sig Dispense Refill atorvastatin (LIPITOR) 10 mg tablet Take 1 tablet (10 mg total) by mouth in the morning. citalopram (CeleXA) 20 mg tablet Take 1 tablet (20 mg total) by mouth in the morning. lamoTRIgine (LaMICtal) 100 mg tablet Take 1 tablet (100 mg total) by mouth in the morning. libanxcjj-yblab-frh (URO-MP) 118-10-40.8-36 mg capsule Take 1 capsule [...] scan whole body; Future Other orders - franklyn.hwzc-jypqr-vlh (URO-MP) 118-10-40.8-36 mg capsule; Take 1 capsule [...] for your understanding. documented in this encounter [facility] 11-07-2023 Miscellaneous Notes Patient is having intermittent blood with urination. Patient also states he is urinating frequently and sometimes its a very good stream but he oconnell at the end of the stream, then he tries to push a little more and it drips blood. Patient just wants to be sure things are going as it should. Pt states he lives in [facility] f/u appt is scheduled for 11/13/2023 He is also asking about his path results. Findings are very typical postprocedure. Will review pathology at office appointment. Should he wish I did place an order for urine culture he can always have that obtained. Patient was informed documented in this encounter [facility] 11-07-2023 Telephone encounter Note Patient is [...] it should. Pt states he lives in [facility] f/u appt is scheduled for 11/13/2023 He is also asking about his path results. [facility] 11-07-2023 Telephone encounter Note Findings are very typical postprocedure. Will review pathology at office appointment. Should he wish I did place an order for urine culture he can always have that obtained. [facility] 11-07-2023 Telephone encounter Note Patient was informed [facility] 10-31-2023 Miscellaneous Notes Patient called in stating he is in a lot of pain every time he goes to urinate. [place] would like something sent over to the pharmacy on file. Please advise Pyridium sent to his pharmacy documented in this encounter [facility] 10-31-2023 Telephone encounter Note Patient called in stating he is in a lot of pain every time he goes to urinate. [place] would like something sent over to the pharmacy on file. Please advise [facility] 10-31-2023 Telephone encounter Note Pyridium sent to his pharmacy [facility] 10-30-2023 Miscellaneous Notes Patient needs to follow up in the office in [place] 2-3 weeks or so. Follow up on the TURBT. documented in this encounter [facility] 10-30-2023 Telephone encounter Note Patient needs to follow up in the office in [place] 2-3 weeks or so. Follow up on the TURBT. [facility] 10-17-2023 Instructions Tiffanie Altamirano RN - 10/17/2023 9:00 AM EDT Preoperative Education Checklist- General Surgery date: 10/30/23 Surgery time: 930a Arrival time: 730a 1. Bring a photo ID and your insurance card with you the day of surgery. You will check in at the main lobby of the [facility]- registration desk is straight ahead as soon as you walk in. Tell them you are here for surgery. 2. If you have a Living Will/Durable Power of Line Camera Operator for Health Care that is not [...] after you have bathed. 5. NO nail latvian/acrylic on at least one finger. If you are having a hand, wrist or foot surgery then all nail latvian and artificial/acrylic nails must be removed from [...] please call the Preadmission Testing office at [phone], Mon.-Fri. 7 a.m.-3 p.m. Leave a voicemail [...] with your doctor. documented in this encounter [facility] 09-04-2023 Miscellaneous Notes Cysto potential retrograde pyelogram. Mac anesthesia [place]. Possible biopsy. Diagnosis is hematuria. documented in this encounter [facility] 09-04-2023 Telephone encounter Note Cysto potential retrograde pyelogram. Mac anesthesia [place]. Possible biopsy. Diagnosis is hematuria. [facility] 09-04-2023 Evaluation + Plan note Associated [...] system. The patient acknowledges this and agrees. [facility] 09-04-2023 Miscellaneous Notes Associated Problem(s): Hematuria, [...] this and agrees. documented in this encounter [facility] 09-04-2023 History of Presen t illness Narrative Images from the original note were not included. [address] [place] [id number] Patient: [place] Abreu Date of : 1970 [...] for your understanding. documented in this encounter [facility] 08-21-2023 Telephone encounter Note pt called needing a refill on his lamoTRIgine (LaMICtal) 100 MG tablet and citalopram (CeleXA) 20 MG tablet [facility] 08-21-2023 Miscellaneous Notes pt called needing a refill on his lamoTRIgine (LaMICtal) 100 MG tablet and citalopram (CeleXA) 20 MG tablet documented in this encounter [facility] Evaluation note No assessment inform ation available [facility] Work Phone: Evaluation note Diagnosis Bipolar affective disorder, remission status unspecified (CMS/HCC)- Primary documented in this encounter [facility] note* Diagnosis Mixed hyperlipidemia (CMS/HCC)- Primary Mixed hyperlipidemia documented in this encounter [facility]* Diagnosis Mixed hyperlipidemia (CMS/HCC) Mixed hyperlipidemia Bipolar affective disorder, remission status unspecified (CMS/HCC) documented in this encounter [facility]* Diagnosis Bipolar affective disorder, remission status unspecified (CMS/HCC)- Primary Malignant neoplasm of overlapping sites of bladder (CMS/HCC) Tobacco user Tobacco use disorder Lump of skin Localized superficial swelling, mass, or lump Contusion of scalp, initial encounter Mixed hyperlipidemia (CMS/HCC) Mixed hyperlipidemia documented in this encounter [facility] Healthcare[facility]* Diagnosis Diverticulitis- Primary Diverticulitis [...] hyperlipidemia COVID- Primary documented in this encounter [facility]* Diagnosis Diverticulitis- Primary Diverticulitis [...] D deficiency- Primary [facility] Diagnosis Elevated PSA- Primary Elevated [...] of bladder (CMS-HCC) documented in this encounter [facility]* Diagnosis Hematuria, microscopic- Primary Microscopic hematuria documented in this encounter [facility]* Diagnosis Malignant neoplasm of overlapping sites of bladder (CMS-HCC)- Primary Elevated PSA Elevated prostate specific antigen (PSA) [facility] Diagnosis Elevated PSA- Primary Elevated prostate specific antigen (PSA) Hematuria, microscopic Microscopic hematuria documented in this encounter [facility]* Diagnosis Malignant neoplasm of overlapping sites of bladder (CMS-HCC)- Primary Urinary incontinence, unspecified type- Primary Elevated PSA Elevated prostate specific antigen (PSA) Malignant neoplasm of overlapping sites of bladder (CMS-HCC) Malignant neoplasm of overlapping sites of bladder (CMS-HCC) documented in this encounter [facility]* Diagnosis Elevated PSA- Primary Elevated [...] of bladder (CMS-HCC) documented in this encounter [facility]* Diagnosis Diverticulitis- Primary Diverticulitis of colon [...] Bipolar affective disorder, remission status unspecified (CMS/HCC) Bipolar affective disorder, remission status unspecified (CMS/HCC)- Primary Obesity (BMI 30-39.9) Bipolar disorder, current episode mixed, mild (CMS/HCC) Tobacco user Tobacco use disorder Malignant neoplasm of overlapping sites of bladder (CMS/HCC) Vitamin D deficiency Hypocalcemia Cigarette nicotine dependence without complication Mixed hyperlipidemia (CMS/HCC) Mixed hyperlipidemia Vitamin D deficiency- Primary documented in this encounter [facility]* Diagnosis Diverticulitis- Primary Diverticulitis [...] Bipolar affective disorder, remission status unspecified (CMS/HCC) Bipolar affective disorder, remission status unspecified (CMS/HCC)- Primary Obesity (BMI 30-39.9) Bipolar disorder, current episode mixed, mild (CMS/HCC) Tobacco user Tobacco use disorder Malignant neoplasm of overlapping sites of bladder (CMS/HCC) Vitamin D deficiency Hypocalcemia Cigarette nicotine dependence without complication Mixed hyperlipidemia (CMS/HCC) Mixed hyperlipidemia Vitamin D deficiency- Primary [facility] [...] Abdominal pain 09/26/2023 Abnormal TSH Bipolar disorder (CMS/HCC) 07/22/2023 Chicken pox Cholelithiasis Constipation, chronic COVID-19 [...] of the risks of continued smoking: stroke, UT, all forms of cancer, lung disease, and [...] of the risks of continued smoking: stroke, UT, all forms of cancer, lung disease, and [...] with Urology for mgmt [facility] Additional Instructions As we discussed, your symptoms of excessive sleepiness during the day, persistent fatigue, and loud snoring suggest possible sleep apnea. Please follow up with your doctor about this as you may need to be referred for a sleep study. MiraLax may be used daily to stay regular and prevent constipation. May be taken twice daily until constipation is resolved.[facility] Work Phone: InstructionsNot on filedocumented in this [...] Referral Specialty Diagnoses / Procedures Referred By Contphilippe t Referred To Contact Radiology Diagnoses Malignant neoplasm of overlapping sites of bladder (CMS-HCC) Elevated PSA Procedures NM bone scan whole body Lida Suh MD [facility] [place] [address] [facility] [address] [place] [address] Phone: [phone] Referral ID Status Reason Start Date Expiration Date V isits Requested Visits Authorized [id number] PREG Nurse Review 11/13/2023 11/12/2024 5 5 Specialty Diagnoses / Procedures Referred By Contac t Referred To Contact Radiology Diagnoses Hematuria, microscopic Procedures CT urogram Ldia Suh MD [address] [place] [id number] Referral ID Status Reason Start Date Expiration Date V isits Requested Visits Authorized [id number] Pending Review 09/04/2023 09/03/2024 1 1 Specialty Diagnoses / Procedures Referred By Contac t Referred To Contact Diagnoses Urinary incontinence, unspecified type Procedures Measure post void residual Lida Suh MD [address] [place] [id number] Referral ID Status Reason Start Date Expiration Date V isits Requested Visits Authorized [id number] Pending Review 01/29/2024 01/28/2025 1 1 Additional Source Comments (unrecognized sect ion and content) No Status Records FoundNo Status Records FoundNo Status Records FoundNo Status Records FoundNo Status Records FoundNo Status Records FoundNo Status Records Found INFORMATION SOURCE (unrecogn ized section and content) DATE CREATED AUTHOR 02/04/2018 [facility] DATE CREATED AUTHOR AUTHOR'S ORGANIZ ATION 10/02/2022 [facility] DATE CREATED AUTHOR AUTHOR'S ORGANIZ ATION 12/03/2023 [facility] DATE CREATED AUTHOR AUTHOR'S ORGANIZ ATION 12/11/2023 [facility] DATE CREATED AUTHOR AUTHOR'S ORGANIZ ATION 06/28/2024 [facility] DATE CREATED AUTHOR AUTHOR'S ORGANIZ ATION 08/22/2024 [facility] DATE CREATED AUTHOR AUTHOR'S ORGANIZ ATION 10/05/2024 [facility] dical Specialists EPIC Care Teams (unrecognized sec [...] Active Brooklynn Yeager Primary Care Provider Active Behavioral Health Specialist Relationship Specialty Start Date End Date Eusebio Schneider MD [address] [place] [address] PCP - General Family Medicine 07/16/23 Brooklynn Yeager NP [address] [place] [address] Nurse Practitioner Family Medicine 05/15/23 Behavioral Health Specialist Relationship Specialty Start Date End Date Eusebio Schneider MD [address] [place] [address] PCP - [facility] 07/16/23 Brooklynn Yeager NP [address] [place] [address] Nurse Practitioner Family Medicine 05/15/23 Behavioral Health Specialist Relationship Specialty Start Date End Date Eusebio Schneider MD [address] [place] [address] PCP - General Family [facility] 09/26/23 Brooklynn Yeager NP [address] [place] [address] PCP - [facility] 01/13/24 Brooklynn Yeager NP [address] [place] [address] Nurse Practitioner Family Medicine 05/15/23 Brooklynn Yeager NP [address] [place] [address] Nurse Practitioner Family Medicine 09/26/23 Behavioral Health Specialist Relationship Specialty Start Date End Date Eusebio Schneider MD [address] [place] [address] PCP - General Family Medicine 09/26/23 Brooklynn Yeager NP [address] [place] [address] PCP - [facility] 01/13/24 Brooklynn Yeager NP [address] [place] [address] Nurse Practitioner Family Medicine 05/15/23 Brooklynn Yeager NP [address] [place] [address] Nurse Practitioner Family Medicine 09/26/23 Behavioral Health Specialist Relationship Specialty Start Date End Date Eusebio Schneider MD [address] [place] [address] PCP - General Family Medicine 09/26/23 Brooklynn Yeager NP [address] [place] [address] PCP - [facility] 01/13/24 Brooklynn Yeager NP [address] [place] [address] Nurse Practitioner Family Medicine 05/15/23 Brooklynn Yeager NP [address] [place] [address] Nurse Practitioner Family Medicine 09/26/23 Behavioral Health Specialist Relationship Specialty Start Date End Date Eusebio Schneider MD [address] [place] [address] PCP - General Family Medicine 09/26/23 Brooklynn Yeager NP [address] [place] [address] PCP - [facility] 01/13/24 Brooklynn Yeager NP [address] [place] [address] Nurse Practitioner Family Medicine 05/15/23 Brooklynn Yeager NP [address] [place] [address] Nurse Practitioner Family Medicine 09/26/23 Behavioral Health Specialist Relationship Specialty Start Date End Date Eusebio Schneider MD [address] [place] [address] PCP - General Family Medicine 09/26/23 Brooklynn Yeager NP [address] [place] [address] PCP - [facility] 01/13/24 Brooklynn Yeager NP [address] [place] [address] Nurse Practitioner Family Medicine 05/15/23 Brooklynn Yeager NP [address] [place] [address] Nurse Practitioner Family Medicine 09/26/23 Behavioral Health Specialist Relationship Specialty Start Date End Date Eusebio Schneider MD [address] [place] [address] PCP - General Family Medicine 09/26/23 Brooklynn Yeager NP [address] [place] [address] PCP - [facility] 01/13/24 Brooklynn Yeager NP [address] [place] [address] Nurse Practitioner Family Medicine 05/15/23 Brooklynn Yeager NP [address] [place] [address] Nurse Practitioner Family Medicine 09/26/23 Behavioral Health Specialist Relationship Specialty Start Date End Date Eusebio Schneider MD [address] [place] [address] PCP - General Family Medicine 09/26/23 Brooklynn Yeager NP [address] [place] [address] PCP - [facility] 01/13/24 Brooklynn Yeager NP [address] [place] [address] Nurse Practitioner Family Medicine 05/15/23 Brooklynn Yeager NP [address] [place] [address] Nurse Practitioner Family Medicine 09/26/23 Behavioral Health Specialist Relationship Specialty Start Date End Date Eusebio Schneider MD [address] [place] [address] PCP - General [facility] 09/26/23 Brooklynn Yeager NP [address] [place] [address] PCP - [facility] 01/13/24 Brooklynn Yeager NP [address] [place] [address] Nurse Practitioner Family Medicine 05/15/23 Brooklynn Yeager NP [address] [place] [address] Nurse Practitioner Family Medicine 09/26/23 Behavioral Health Specialist Relationship Specialty Start Date End Date Eusebio Schneider MD [address] [place] [address] PCP - General [facility] 09/26/23 Brooklynn Yeager NP [address] [place] [address] PCP - [facility] 01/13/24 Brooklynn Yeager NP [address] [place] [address] Nurse Practitioner Family Medicine 05/15/23 Brooklynn Yeager NP [address] [place] [address] Nurse Practitioner Family Medicine 09/26/23 Behavioral Health Specialist Relationship Specialty Start Date End Date Eusebio Schneider MD [address] [place] [address] PCP - General Family [facility] 09/26/23 Brooklynn Yeager NP [address] [place] [address] PCP - [facility] 01/13/24 Brooklynn Yeager NP [address] [place] [address] Nurse Practitioner Family Medicine 05/15/23 Brooklynn Yeager NP [address] [place] [address] Nurse Practitioner Family Medicine 09/26/23 Behavioral Health Specialist Relationship Specialty Start Date End Date Brooklynn Yeager APRN-COMPUTER SCIENCE INTERN PCP - General Nurse Practitioner 09/04/23 Behavioral Health Specialist Relationship Specialty Start Date End Date Brooklynn Yeager APRN-COMPUTER SCIENCE INTERN [address] [place] [address] PCP - General Nurse Practitioner 09/04/23 Behavioral Health Specialist Relationship Specialty Start Date End Date Brooklynn Yeager [facility] [address] [place] [address] PCP - General Nurse Practitioner 09/04/23 Behavioral Health Specialist Relationship Specialty Start Date End Date Brooklynn Yeager [facility] [address] [place] [address] PCP - General Nurse Practitioner 09/04/23 Behavioral Health Specialist Relationship Specialty Start Date End Date Brooklynn Yeager [facility] [address] [place] [address] PCP - General Nurse Practitioner 09/04/23 Behavioral Health Specialist Relationship Specialty Start Date End Date Brooklynn Yeager [facility] [address] [place] [address] PCP - General Nurse Practitioner 09/04/23 Behavioral Health Specialist Relationship Specialty Start Date End Date Brooklynn Yeager [facility] [address] [place] [address] PCP - General Nurse Practitioner 09/04/23 Behavioral Health Specialist Relationship Specialty Start Date End Date Brooklynn Yeager [facility] [address] [place] [address] PCP - General Nurse Practitioner 09/04/23 Behavioral Health Specialist Relationship Specialty Start Date End Date Brooklynn Yeager [facility] [address] [place] [address] PCP - General Nurse Practitioner 09/04/23 Behavioral Health Specialist Relationship Specialty Start Date End Date Brooklynn Yeager [facility] [address] [place] [address] PCP - General Nurse Practitioner 09/04/23 Behavioral Health Specialist Relationship Specialty Start Date End Date Brooklynn Yeager [facility] [address] [place] [address] PCP - General Nurse Practitioner 09/04/23 Behavioral Health Specialist Relationship Specialty Start Date End Date Brooklynn Yeager [facility] [address] [place] [address] PCP - General Nurse Practitioner 09/04/23 Behavioral Health Specialist Relationship Specialty Start Date End Date Brooklynn Yeager [facility] PCP - General Nurse Practitioner 09/04/23 Behavioral Health Specialist Relationship Specialty Start Date End Date Brooklynn Yeager [facility] PCP - General Nurse Practitioner 09/04/23 Behavioral Health Specialist Relationship Specialty Start Date End Date Brooklynn Yeager [facility] PCP - General Nurse Practitioner 09/04/23 Behavioral Health Specialist Relationship Specialty Start Date End Date Brooklynn Yeager [facility] PCP - General Nurse Practitioner 09/04/23 Behavioral Health Specialist Relationship Specialty Start Date End Date Eusebio Schneider MD [address] [place] [address] PCP - General Family Medicine 09/26/23 Brooklynn Yeager NP [address] [place] [address] PCP - [facility] 01/13/24 Brooklynn Yeager NP [address] [place] [address] Nurse Practitioner Family Medicine 05/15/23 Brooklynn Yeager NP [address] [place] [address] Nurse Practitioner Family Medicine 09/26/23 Behavioral Health Specialist Relationship Specialty Start Date End Date Brooklynn Yeager PICK PULLING MACHINE OPERATOR-COMPUTER SCIENCE INTERN PCP - General Nurse Practitioner 09/04/23 Behavioral Health Specialist Relationship Specialty Start Date End Date Eusebio Schneider MD [address] [place] [address] PCP - General Family Medicine 09/26/23 Brooklynn Yeager NP [address] [place] [address] PCP - [facility] 01/13/24 Brooklynn Yeager NP [address] [place] [address] Nurse Practitioner Family Medicine 05/15/23 Brooklynn Yeager NP [address] [place] [address] Nurse Practitioner Family Medicine 09/26/23 Behavioral Health Specialist Relationship Specialty Start Date End Date Eusebio Schneider MD [address] [place] [address] PCP - General Family [facility] 09/26/23 Brooklynn Yeager NP [address] [place] [address] PCP - [facility] 01/13/24 Brooklynn Yeager NP [address] [place] [address] Nurse Practitioner Family Medicine 05/15/23 Brooklynn Yeager NP [address] [place] [address] Nurse Practitioner Family Medicine 09/26/23 Behavioral Health Specialist Relationship Specialty Start Date End Date Eusebio Schneider MD [address] [place] [address] PCP - General Family Medicine 09/26/23 Brooklynn Yeager NP [address] [place] [address] PCP - [facility] 01/13/24 Brooklynn Yeager NP [address] [place] [address] Nurse Practitioner Family Medicine 05/15/23 Brooklynn Yeager NP [address] [place] [address] Nurse Practitioner Family Medicine 09/26/23 Goals (unrecognized [...] BE BASED ON THE PRIMARY CLINICAL RECORDS. [employer] provides no warranty or guarantee of the accuracy or completeness of information in this document.
== END 2024-12-10 06:16 | disposition home or self-care (01) ==
LOC: LAB 06:18
PROVIDERS: PCP Nurse Practitioner; Visit Provider Nurse Practitioner
DX: E55.9 Vitamin D deficiency, unspecified (principal)
CPT/HCPCS: 36415; 82306

== ENCOUNTER 2025-03-12 15:35 | Outpatient (OUT) | payer OTHER, SELFPAY ==
--- OUTSIDE RECORDS SUMMARY | 2025-03-12 15:39 | XMS_ITS | Clinical Summary ---
Author Organization [facility] Address [address] [place] [address] Care Team Providers Care Information Systems Planner Name Role Phone Unavailable Primary Care Provider Unavailabl e Social History Tobacco Use Types Packs/Day Years Used Date Smoking Tobacco: Never Assessed Sex and Gender Information Value Date Recorded Sex Assigned at Not on file Legal Sex Male 12:12 AM EDT Gender Identity Not on file Sexual Orientation Not on file Last Filed Vital Signs Vital Sign Reading Time Taken Comments Blood Pressure 100/68 09/08/2018 11:08 AM EST Pulse 68 09/08/2018 11:08 AM EST Temperature - - Respiratory Rate - - Oxygen Saturation 97% 09/08/2018 11:08 AM EST Inhaled Oxygen Concentration - - Weight 110 kg (243 lb) 09/08/2018 11:02 AM EST Height 188 cm (6' 2 ) 09/08/2018 11:02 AM EST Body Mass Index 31.2 09/08/2018 11:02 AM EST Plan of Treatment Not on file
--- OUTSIDE RECORDS SUMMARY | 2025-03-12 15:39 | XMS_ITS | Clinical Summary ---
Author Organization Bearch tem Address [id number] [address] [place] [address] Care Team Providers Care Agency Development Manager Name Role Phone Brooklynn Yeager APRN-RISK AND INSURANCE MANAGER Primary Care Provider Allergies Active Allergy Reactions Criticality Noted Date Comments Hydrocodone GI Disturbance 07/17/2023 constipation Hydrocodone-Acetaminophen 09/04/2023 Severe constipation Medications citalopram (CeleXA) 20 mg tablet Take 1 tablet (20 mg total) by mouth in the morning. Active lamoTRIgine (LaMICtal) 100 mg tablet Take 1 tablet (100 mg total) by mouth in the morning. 02/20/2024 Active atorvastatin (LIPITOR) 10 mg tablet Take 1 tablet (10 mg total) by mouth in the morning. 04/16/2024 Active cholecalciferol , vitamin D3, (VITAMIN D3) 5,000 units capsule Take 1 capsule (5,000 Units total) by mouth in the morning. 12/14/2024 Active Active Problems Problem Noted Date Diagnosed Date Gross hematuria 12/01/2023 Elevated PSA 09/04/2023 Overview (08/19/2024): ==== 08/19/2024 ==== last PSA was acceptable. [...] value. Repeat PSA 2 months return clinic. Assessment & Plan (08/19/2024 4:27 PM EST): He does have some difficulty urinating in the morning. I did ask if it is bad enough for him to take it daily medication it was not. It is only isolated. He voids well otherwise. He is happy with the current state. Assessment & Plan (01/29/2024 4:46 PM EDT): He can stop his Flomax as well as finasteride Malignant neoplasm of overlapping sites of bladd er 09/04/2023 Overview (11/13/2023): ==== 11/13/2023 ==== #### status post cystoscopy [...] Completion hematuria evaluation cytology CT urogram cystoscopy. Assessment & Plan (01/29/2024 4:47 PM EDT): Postop day of have clots and clot retention. This has resolved. He was started on finasteride and Flomax at the time of the ER visit. He was not on these before. He can stop those. Assessment & Plan (11/13/2023 11:53 AM EDT): Patient with incidental finding CT urogram some bony changes. PSA is really not the elevated actually PSA is better now. Talked about potential metastasis. Certainly need a bone scan to evaluate. Return clinic. Assessment & Plan (09/04/2023 2:38 PM EST): We reviewed today than any abnormality of the urinary tract including cancer, medical renal disease, infection, calculi, bleeding the diathesis, idiopathic, benign familial, BPH, or congenital anomaly could account for hematuria, and hence the importance of evaluation. The patient understands that all studies ordered must be completed in order to fully evaluate the urinary system. The patient acknowledges this and agrees. Encounters Date Type Department Care Team Description 12/30/2024 8:00 AM EDT - 12/30/2024 8:30 AM EDT Surgery [facility] Surgery [address] [place] [address] Godwin Reed MD CYSTOSCOPY [[id number] (CPT )] 12/30/2024 6:48 AM EDT - 12/30/2024 8:30 AM EDT Hospital Encounter [facility] [address] [place] [address] Godwin Reed MD Discharge Disposition: Home 12/30/2024 Telephone [facility] [address] [place] [address] Godwin Reed MD 12/30/2024 Travel 12/14/2024 Orders Only [facility] [address] [place] [address] Godwin Reed MD Malignant neoplasm of overlapping sites of bladder ([facility]) (Primary Dx) 12/11/2024 Telephone [facility] [address] [place] [address] Carol Robert CNA from Last 3 Months Immunizations Immunization Administration Dates Next Due Zoster Vaccine Recombinant 09/11/2022,05/31/2022 Social History Tobacco Use Types Packs/Day Years Used Date Smoking Tobacco: Every Day Cigarettes Smokeless Tobacco: Never Tobacco Cessation:Ready to Q uit: Not Asked; Counseling Given: Not Answered Alcohol Use Standard Drinks/Week Comments Never 0 (1 standard drink = 0.6 oz pur e alcohol) [facility] Utilities Answer Date Recorded In the past 12 months has th e electric, gas, oil, or water company threatened to shut off services in your home? No 12/01/2023 AUDIT-C Answer Date Recorded Q1: How often do you have a drink containing alc ohol? Monthly or less 12/01/2023 Q2: How many drinks containi ng alcohol do you have on a typical day when you are drinking? 1 or 2 12/01/2023 Q3: How often do you have si x or more drinks on one occasion? Never 12/01/2023 PHQ-2 Answer Date Recorded Total Score 0 12/01/2023 PRAPARE - Transportation Answer Date Re corded In the past 12 months, has l ack of transportation kept you from medical appointments or from getting medications? No 11/12 In the past 12 months, has l ack of transportation kept you from meetings, work, or from getting things needed for daily living? No 12/01/2023 Housing Instability Answer Date Recorde d Are you worried or concerned that in the next two months you may not have stable housing that you own, rent or stay in as a part of a household? No 12/01/2023 Hunger Screening Answer Date Recorded Within the past 12 months we worried whether our food would run out before we got money to buy more. Never True 01/29/2024 Within the past 12 months th e food we bought just didn't last and we didn't have money to get more. Never True 01/29/2024 Sex and Gender Information Value Date Recorded Sex Assigned at Not on file Legal Sex Male 12:07 PM EST Gender Identity Not on file Sexual Orientation Not on file Last Filed Vital Signs Vital Sign Reading Time Taken Comments Blood Pressure 98/75 08/19/2024 4:21 PM EST Pulse 75 08/19/2024 4:21 PM EST Temperature 36.5 C (97.7 F) 12/02/2023 1:18 PM EDT Respiratory Rate 16 12/02/2023 1:18 PM EDT Oxygen Saturation 97% 12/02/2023 1:18 PM EDT Inhaled Oxygen Concentration - - Weight 113.4 kg (250 lb) 08/19/2024 4:21 PM EST Height 189.2 cm (6' 2.5 ) 08/19/2024 4:21 PM EST Body Mass Index 31.67 08/19/2024 4:21 PM EST Plan of Treatment Upcoming Encounters Date Type Department Care Team (Late st Contact Info) Description 08/23/2025 1:45 PM EST Office Visit [facility] [address] [place] [address] [place] [address] [address] Godwin Reed MD Formerly named [facility] [place] [address] Health Maintenance Due Date Last Done Comments Tobacco Counseling 1970 Adult BMI Follow Up Plan 12/27/1987 DTaP,Tdap and Td Vaccines (1 - Tdap) 1988 COVID-19 Vaccine (2023-2 5 season) 2024 04/15/2022, 11/10/2020, 10/19/2020 Depression Screening 11/30/2024 12/01/2023 Influenza Vaccine 03/15/2025 Adult BMI Screening 08/19/2025 08/19/2024 Tobacco Screening 12/30/2025 12/30/2024 Zoster (Shingles) Vaccine Completed 09/11/2022, Medical Devices Not on file Procedures Procedure Name Priority Date/Time Associated Diagnosis Comments NON-GYNECOLOGIC CYTOLOGY Routine 025 8:10 AM EDT [facility] CYSTOURETHROSCOPY 12/30/2024 8:09 AM EDT Malignant neoplasm of overlapping sites of bladder (CMS-HCC) UROVYSION(TM) FOR BLADDER Routine 2024 6:55 AM EDT from Last 3 Months Results * Cytology non-gynecologic (12/30/2024 8:10 AM EDT) Case Report Medical Cytology Report Case: [id number] Authorizing Provider: Godwin Reed MD Collected: 12/30/2024 0810 Ordering Location: [facility] [place] Received: 12/30/2024 1443 [facility] - Surgery Pathologist: Sarah Zheng MD Specimen: Urine, Voided 12/31/2024 2:33 PM EDT [facility] Final Diagnosis 1. Urine, Voided: Negative for high grade urothelial cell carcinoma 12/31/2024 2:33 PM EDT [facility] at 1433 EDT Gross Description Received was 80 mL of yellow fluid, unfixed, labeled as Lee, urine, voided . Preservative added in lab. 40mL used for Cytology. See UroVysion report. 12/31/2024 2:33 PM EDT [facility] Clinical Information bladder cancer 12/31/2024 2:33 PM EDT [facility] Embedded Images 12/31/2024 2:33 PM EDT [facility] Urine (Urine, Voided) 12/30/2024 8:10 AM EDT 12/30/2024 2:43 PM EDT us Godwin Reed MD PATHOLOGY/CYTOLOGY ORDERABLE S Final Result [facility] [address] [place] [address], [place] [phone] * Urovysion (12/30/2024 6:55 AM EDT) UROVYSION FOR BLADDER CANCER SEE COMMENTS 01/07/2025 1:11 PM EDT [facility] Comment: Test Result Flag Unit RefValue UroVysion (R) for Bladder Cancer Result Summary Negative Result No evidence of urothelial carcinoma. Interpretation SEE COMMENTS This test result does not rule out [...] specific probe for 9p21 ([employer] [place], [place]). This test has been modified from the commercial manager's instructions. Its performance characteristics were determined by [facility] in a manner consistent with CLIA requirements. This test has not been cleared or approved by the U.S. Food and Drug Administration. Reason for Referral Evaluate for urothelial carcinoma. Specimen Varies Source Urine, NOS Released By Calixto Gross M.D. Test Performed by: [place] [address] Bomb Squad Officer: Te Moreau Ph.D.; CLIA# [id number] Urine 12/30/2024 6:55 AM EDT 12/30/2024 8:37 AM EDT us Godwin Reed MD URINE ORDERABLES Final Resul t [address] [address], from Last 3 Months Insurance [facility] MEDICAID Advance Directives * Full Code (Latest Code Status on File) Date Activated Date Inactivated Comments 12/01/2023 12:29 PM 12/02/2023 5:55 PM Care Teams Agency Development Manager Relationship Specialty Start Date End Date Brooklynn Yeager, CHARGING PLUG PLACER-RISK AND INSURANCE MANAGER PCP - General Nurse Practitioner 09/04/23
--- OUTSIDE RECORDS SUMMARY | 2025-03-12 15:39 | XMS_ITS | Encounter Summary ---
Author Organization [facility] Address [address] [place] [address] Care Team Providers Care Manufacturer'S Representative Name Role Phone Brooklynn Yeager HOOK AND EYE ATTACHER Unavailable [phone] Eusebio Schneider MD Primary Care Provider Brooklynn Yeager HOOK AND EYE ATTACHER Unavailable [phone] Brooklynn Yeager HOOK AND EYE ATTACHER Unavailable [phone] Reason for Visit * Reason Comments Med Refill Encounter Details Date Type Department Care Team (Late st Contact Info) Description 03/04/2025 Refill [facility] [address] [place] [address] Brooklynn Yeager HOOK AND EYE ATTACHER [address] [place] [address] Vitamin D deficiency Social History Tobacco Use Types Packs/Day Years Used Date Smoking Tobacco: Every Day Cigarettes Alcohol Use Standard Drinks/Week Comments Not Currently 0 (1 standard drink = 0.6 oz pur e alcohol) caffeine 1-2 cups per day B1300 Health Literacy Answer Date Recor ded How often do you need to hav e someone help you when you read instructions, pamphlets, or other written material from your doctor or pharmacy? Never 03/23/2024 Social Connection and Isolation Panel [NHANES] A nswer Date Recorded Frequency of Communication with Friends and Fami ly Not on file 03/23/2024 Frequency of Social Gatherin gs with Friends and Family Not on file 03/23/2024 Attends [employer] Not on file 03/23 Do you belong to any clubs o r organizations such as yarsani groups, unions, fraternal or athletic groups, or school groups? No 03/23/2024 How often do you attend meet ings of the clubs or organizations you belong to? Never 03/23/2024 Are you , , di vorced, , never , or living with a partner? Living with partner 03/23/2024 AUDIT-C Answer Date Recorded Q1: How often do you have a drink containing alcohol? Never 03/23/2024 Q2: How many drinks containi ng alcohol do you have on a typical day when you are drinking? Patient does not drink Q3: How often do you have si x or more drinks on one occasion? Never 03/23/2024 Overall Financial Resource Strain (CARDIA) Answe r Date Recorded How hard is it for you to pa y for the very basics like food, housing, medical care, and heating? Not hard at all 03/23/2024 [facility] - Occupational Stress Questionnaire Answer Date Recorded Do you feel stress - tense, restless, nervous, or anxious, or unable to sleep at night because your mind is troubled all the time - these days? Not at all 03/23/2024 Exercise Vital Sign Answer Date Recorde d Days of Exercise per Week Not on file 2023 On average, how many minutes do you engage in exercise at this level? 150+ min 03/23/2024 Hunger Vital Sign Answer Date Recorded Within the past 12 months, y ou worried that your food would run out before you got the money to buy more. Sometimes true Within the past 12 months, t he food you bought just didn't last and you didn't have money to get more. Sometimes true 03/2024 PRAPARE - Transportation Answer Date Re corded In the past 12 months, has l ack of transportation kept you from medical appointments or from getting medications? No 03/2024 In the past 12 months, has l ack of transportation kept you from meetings, work, or from getting things needed for daily living? No 03/23/2024 Housing Stability Vital Sign Answer David e Recorded In the last 12 months, was t here a time when you were not able to pay the mortgage or rent on time? Yes 03/23/2024 Number of Times Moved in the Last Year Not on fi le 03/23/2024 At any time in the [facility], were you homeless or living in a fci (including now)? No 03/23/2024 Sex and Gender Information Value Date Recorded Sex Assigned at Not on file Legal Sex Male 11:02 PM EDT Gender Identity Not on file Sexual Orientation Not on file documented as of this encounter Plan of Treatment Upcoming Encounters Date Type Department Care Team (Late st Contact Info) Description 04/28/2025 8:40 AM EDT Office Visit [facility] [address] [place] [address] Brooklynn Yeager NP [address] [place] [address] documented as of this encounter Visit Diagnoses Diagnosis Vitamin D deficiency documented in this encounter Care Teams Manufacturer'S Representative Relationship Specialty Start Date End Date Eusebio Schneider MD [address] [place] [address] PCP - General Family Medicine 09/26/23 Brooklynn Yeager NP [address] [place] [phone] PCP - [facility] 01/13/24 Brooklynn Yeager NP Nurse Practitioner Family Medicine 05/15/23 Brooklynn Yeager NP Nurse Practitioner Family Medicine 09/26/23 documented as of this encounter
--- OUTSIDE RECORDS SUMMARY | 2025-03-12 15:39 | XMS_ITS | Encounter Summary ---
[id number] [address] [place] [address] Care Team Providers Care Senior Clinical Research Associate Name Role Phone Brooklynn Yeager APRN-LABORATORY ASST Primary Care Provider Encounter Details Date Type Department Care Team (Late st Contact Info) Description 11/30/2023 Telephone [facility] [address] [place] [phone] Godwin Reed MD [address] [place] [id number] Social History Tobacco Use Types Packs/Day Years Used Date Smoking Tobacco: Every Day Cigarettes 0.5 36.7 Started: 1989 Smokeless Tobacco: Never Alcohol Use Standard Drinks/Week Comments Never 0 (1 standard drink = 0.6 oz pur e alcohol) [facility] Utilities Answer Date Recorded In the past 12 months has [employer], gas, oil, or water [employer] threatened to shut off services in your [...] got money to buy more. Never True 12/01/2023 Within the past 12 months th e food we bought just didn't last and we didn't have money to get more. Never True 12/01/2023 Sex and Gender Information Value Date Recorded Sex Assigned at Not on file Legal Sex Male 12:07 PM EST Gender Identity Not on file Sexual Orientation Not on file documented as of this encounter Functional Status * Audit-C Score Answer Date of Assessment Author 1 12/01/2023 6:35 PM Lakshmi Hernandez RN * Question Answer Date of Assessment Author Q1: How often do you have a drink containing alcohol? Monthly or less 12/01/2023 6:35 PM Kyler Hernandez RN Q2: How many drinks containing alcohol do you have on a typical day when you are drinking? 1 or 2 12/01/2023 6:35 PM Casimiro Hernandez RN Q3: How often do you have six or more drinks on one occasion? Never 12/01/2023 6:35 PM Kyler Hernandez RN * Question Answer Date of Assessment Author Functional Status Independent 12/01/2023 6:36 PM Lakshmi Hernandez RN documented as of this encounter Plan of Treatment Upcoming Encounters Date Type Department Care Team (Late st Contact Info) Description 08/23/2025 1:45 PM EST Office Visit [facility] [address] [place] [address] [place] [address] Godwin Reed MD [address] [place] [address] documented as of this encounter Visit Diagnoses Not on filedocumented in this encounter Care Teams Senior Clinical Research Associate Relationship Specialty Start Date End Date Brooklynn Yeager, DAWN-LABORATORY ASST PCP - General Nurse Practitioner 09/04/23 documented as of this encounter
--- OUTSIDE RECORDS SUMMARY | 2025-03-12 15:39 | XMS_ITS | Encounter Summary ---
Author Organization [facility] Address [address] [facility] [place] [address] Care Team Providers Care Nutrition Club Ambassador Name Role Phone Brooklynn Yeager NP Unavailable [phone] Eusebio Schneider MD Primary Care Provider Eusebio Schneider MD Primary Care Provider Brooklynn Yeager BANDER HAND Unavailable [phone] Rashawn Campbell MD Unavailable [phone] Brooklynn Yeager BANDER HAND Unavailable [phone] Encounter Details Date Type Department Care Team (Late st Contact Info) Description 07/21/2023 Abstract [facility] [address] [place] [address] Brooklynn Yeager BANDER HAND [address] [place] [address] Social History Tobacco Use Types Packs/Day Years Used Date Smoking Tobacco: Every Day Cigarettes Tobacco Cessation:Ready to Q uit: Not Asked; Counseling Given: Not Answered Alcohol Use Standard Drinks/Week Comments Not Currently 0 (1 standard drink = 0.6 oz pur e alcohol) caffeine 1-2 cups per day Sex and Gender Information Value Date Recorded Sex Assigned at Not on file Legal Sex Male 11:02 PM EDT Gender Identity Not on file Sexual Orientation Not on file documented as of this encounter Plan of Treatment Upcoming Encounters Date Type Department Care Team (Late st Contact Info) Description 04/28/2025 8:40 AM EDT Office Visit [facility] [address] [place] [address] Brooklynn Yeager NP [address] [place] [address] documented as of this encounter Visit Diagnoses Not on filedocumented in this encounter Care Teams Nutrition Club Ambassador Relationship Specialty Start Date End Date Eusebio Schneider MD PCP - General Family Medicine 07/16/23 09/25/23 Eusebio Schneider MD [address] [place] [phone] PCP - General Family Medicine 09/26/23 Rashawn Campbell MD [address] [place] [address] PCP - [facility] 10/14/23 4 Brooklynn Yeager NP [address] [place] [phone] PCP - [facility] 01/13/24 Brooklynn Yeager NP Nurse Practitioner Family Medicine 05/15/23 Brooklynn Yeager NP Nurse Practitioner Family Medicine 09/26/23 documented as of this encounter
--- OUTSIDE RECORDS SUMMARY | 2025-03-12 15:41 | XMS_ITS | CCD ---
Author Organization [facility] Care Team Providers Care Agronomy Supervisor Name Role Phone KINJAL CHEW Unavailable Unavailable KINJAL CHEW Unavailable Unavailable Aichholjohnny, Brooklynn Adi Primary Care Provider MD Hernandez Lares Jr Emergency Provider AICHHOLZ, VENEER GRADER BROOKLYNN Attending Unavailable AICHHOLZ, VENEER GRADER BROOKLYNN Consulting Unavailable AICHHOLZ, VENEER GRADER BROOKLYNN Primary Care Unavailable AICHHOLZ, VENEER GRADER BROOKLYNN Admitting Unavailable AICHHOLZ, VENEER GRADER BROOKLYNN Attending Unavailable AICHHOLZ, VENEER GRADER BROOKLYNN Consulting Unavailable AICHHOLZ, VENEER GRADER BROOKLYNN Primary Care Unavailable AICHHOLZ, VENEER GRADER BROOKLYNN Admitting Unavailable AICHHOLZ, VENEER GRADER BROOKLYNN Primary Care Unavailable MISC, DR QUIGLEY Attending Unavailable MISC, DOCTOR Consulting Unavailable MISC, DOCTOR Admitting Unavailable Aichholz, Brooklynn J Primary Care Provider MD Hernandez Lares Jr Emergency Provider MD Kevin Sheehan Attending Provider [phone] Aichholz OPERATIONS RESEARCH SCIENTIST, Brooklynn Unavailable Eusebio Schneider MD Primary Care [...] Unavailable Hernandez Lares Jr Admitting Unavailable Aichholz OPERATIONS RESEARCH SCIENTIST, Brooklynn Unavailable Eusebio Schneider MD Primary Care Provider Aichholz OPERATIONS RESEARCH SCIENTIST, Brooklynn Unavailable Aichholz OPERATIONS RESEARCH SCIENTIST, Brooklynn Unavailable Aichholz EDUCATION OFFICER-VENEER GRADER, Brooklynn Joshi Primary Care Provider LIDA SUH Attending Unavailable AICHHOLZ, BROOKLYNN J Referring Unavailable AICHHOLZ, BROOKLYNN J Primary Care Unavailable SUHLIDA Attending Unavailable AICHHOLZ, BROOKLYNN J Referring Unavailable AICHHOLZ, BROOKLYNN J Primary Care Unavailable SUHLIDA MARIA G Attending Unavailable AICHHOLZ, BROOKLYNN J Referring Unavailable AICHHOLZ, BROOKLYNN J Primary Care Unavailable LIDA SUH Attending Unavailable AICHHOLZ, BROOKLYNN J Primary Care Unavailable Aichholz EDUCATION OFFICER-VENEER GRADER, Brooklynn J Primary Care Provider Aichholz EDUCATION OFFICER-VENEER GRADER, Brooklynn Adi Primary Care Provider VIV YEAGERA Attending Unavailable AICHHOLZ, BROOKLYNN Attending Unavailable AICHHOLZ, BROOKLYNN Attending Unavailable Aichholz EDUCATION OFFICER-VENEER GRADER, Brooklynn Adi Primary Care Provider LIDA SUH. Referring Unavailable AICHHOLZ, BROOKLYNN J Primary Care Unavailable AICHHOLZ, BROOKLYNN J Referring Unavailable AICHHOLZ, BROOKLYNN J Primary Care Unavailable LIDA SUH. Admitting Unavailable LIDA SUH. Attending Unavailable AICHHOLZ, BROOKLYNN J Primary Care Unavailable AICHHOLZ, BROOKLYNN J Referring Unavailable AICHHOLZ, BROOKLYNN J Primary Care Unavailable SUHLIDA. Admitting Unavailable SUHLIDA. Attending Unavailable AICHHOLZ, BROOKLYNN Adi Primary Care Unavailable SUHLIDA G Admitting Unavailable SUHLIDA Attending Unavailable SUHLIDA G Referring Unavailable AICHHOLZ, BROOKLYNN J Primary Care Unavailable Allergies Allergy Classification Reported Allergen(s) Allergy Type Date of Onset Reaction(s) Facility (4 sources) Acetaminophen; Translations: [acetaminophen] Drug Allergy 09-04-19 23 Gastrointestinal Upset [facility] (20 sources) HYDROcodone; Translations: [hydrocodone] Drug Allergy 09-04-19 GI intolerance, GI Disturbance [facility] (1 source) Acetaminophen / HYDROcodone Drug Allergy [facility] (20 sources) Acetaminophen / HYDROcodone; Translations: [HYDROCODONE-ACET AMINOPHEN] Drug Allergy 09-04-19 [facility] Repository Medications Current Medications Medication Drug Class(es) Dates Sig (Normalized) Sig (Original) acetaminophen 325 mg / oxyCODONE hydrochloride 5 mg oral tablet (5 sources) Opioid Agonist Start: 12-14-2024 oxyCODONE-acetamino phen (PERCOCET) 5-325 mg per tablet Indications: Malignant neoplasm of overlapping sites of bladder (CMS-HCC) One tablet prior to urologic procedure. Someone must drive you. 1 tablet 12/14/2024 Active Start: 05-22-2024 oxyCODONE-acet aminophen (PERCOCET) 5-325 mg per tablet Indications: Malignant neoplasm of overlapping sites of bladder (CMS-HCC) Take prior to your urologic procedure-- someone must drive you 1 tablet 05/22/2024 Active Start: 04-04-2020 End: 10-22-2022 take 1 tablet by mouth every six hours Oxycodone-Acetaminophen Discontinued 1 T AB PO Q6H 28 7 April 04, 2020 October 22, 2022 2:09pm [id number] 200 actuat albuterol 0.09 mg/actuat metered dose [...] (Lipitor) 10 MG tablet Indications: Mixed hyperlipidemia Take 1 tablet (10 mg) by mouth at bedtime 90 tablet 1 10/05/2024 Active Start: 07-29-2023 End: 12-19-2023 take 1 tablet by mouth in the morning atorvastatin (LIPITOR) 10 mg tablet Take 1 tablet (10 mg total) by mouth in the morning. 09/20/2023 12/19/2023 Active brompheniramine maleate 0.4 mg/ml / dextromethorphan hydrobromide 2 mg/ml / pseudoephedrine hydrochloride 6 mg/ml oral solution (1 source) alpha-Adrenergic Agonist, Uncompetitive Z-pwcayp-H-aspartate Receptor Antagonist, Sigma-1 Agonist Start: 07-02-2024 End: 07-07-2024 take 10 mL by mouth four times daily as needed for cough jmtbnrdazrxxwjj-dncyuorkzlphqog-SO 30-2-10 MG/5ML syrup Indications: COVID Take 10 mL by mouth 4 (four) times a day as needed for cough or congestion for up to 5 days 200 mL 07/02/2024 07/07/2024 Active cholecalciferol 0.125 mg oral capsule (8 sources) Vitamin D Start: 03-04-2025 End: 04-03-2025 take 1 capsule by mouth once daily cholecalciferol (Vitamin D-3) 125 MCG (5000 UT) capsule Indications: Vitamin D deficiency Take 1 capsule (125 mcg) by mouth Daily 30 capsule 2 03/04/2025 04/03/2025 Active Start: 12-14-2024 take 1 capsule by mo uth in the morning cholecalciferol, vitamin D3, (VITAMIN D3) 5,000 units capsule Take 1 capsule (5,000 Units total) by mouth in the morning. 12/14/2024 Suspended Start: 10-12-2024 End: 11-11-2024 take 1 capsule [...] Indications: Bipolar affective disorder, remission status unspecified (HCC) Take 1 tablet (20 mg) by mouth Daily 90 tablet 1 10/05/2024 Active Start: 10-22-2022 take 1 tablet by [...] sources) Oxidation-Reduction Agent Start: 11-13-2023 End: 11-20-2023 franklyn.ph wk-rjegi-ffy (URO-MP) 118-10-40.8-36 mg capsule Take 1 capsule [...] Indications: Bipolar affective disorder, remission status unspecified (HCC) Take 1 tablet (100 mg) by mouth Daily 90 tablet 1 10/05/2024 Active Start: 10-22-2022 take 1 tablet by [...] Sig (Normalized) Sig (Original) polyethylene glycol 3350 50104 mg powder for oral solution (3 sources) [...] fatigue] 09-05-2022 Episodic Miscellaneous mental health disorders (20 sources) Impotence; Translations: [Male erectile disorder] Onset: 09-26-2023 09-26-2023 Chronic Mood disorders (20 sources) Bipolar disorder; Translations: [Bipolar disorder, unspecified] Onset: 07-22-2023 08-21-2023 Chronic Nutritional deficiencies (12 sources) Vitamin D deficiency; Translations: [Vitamin D deficiency, unspecified] Onset: 08-18-2024 08-18-2024 Chronic Other gastrointestinal disorders (3 sources) Constipation; Translations: [Constipation, unspecified] 09-05-2022 Episodic Other lower respiratory disease (3 sources) Snoring; Translations: [Snoring] 09-05-2022 Episodic Other nutritional; endocrine; and metabolic disorders (20 sources) Body mass index 30+ - obesity; Translations: [Obesity, unspecified] Onset: 09-26-2023 09-26-2023 Chronic Other nutritional; endocrine; and metabolic disorders (11 sources) Hypocalcemia; Translations: [Hypocalcemia] Onset: 08-14-2024 08-14-2024 Chronic Residual codes; unclassified (3 sources) Daytime somnolence; Translations: [Other hypersomnia] 09-05-2022 Chronic Spondylosis; intervertebral disc disorders; other back problems (20 sources) Degeneration of lumbar intervertebral disc; Translations: [Other intervertebral disc degeneration, lumbar region] Onset: 08-21-2023 08-21-2023 Chronic Substance-related disorders (6 sources) Nicotine dependence; Translations: [Nicotine dependence, unspecified, uncomplicated] Onset: 10-05-2024 10-05-2024 Chronic Unclassified (3 sources) CONTACT W/AND (SUSP) EXPOS COVID-19; Translations: [CONTACT W/AND (SUSP) EXPOS COVID-19] Onset: 11-06-2021 Unclassified (1 source) 52 yrs M (1970) [id number] Onset: 11-29-2023 Unclassified (1 source) Elevated PSA Onset: 09-04-2023 Unclassified (3 sources) Autogenerated Problem Onset: 11-12-2024 11-12-2024 Unclassified (1 source) Malignant neoplasm of overlapping sites of bladder (CMS-HCC) [C67.8] Onset: 03-18-2024 Past or Other Problems Problem Classification Problem Date Documented Da te Episodic/Chronic Abdominal pain (20 sources) Abdominal pain; Translations: [Unspecified abdominal pain] Onset: 09-26-2023 09-26-2023 Episodic Anal and rectal conditions (20 sources) Rectal pain; Translations: [Other specified diseases of anus and rectum] Onset: 09-26-2023 09-26-2023 Episodic Diabetes mellitus without complication (11 sources) Hyperglycemia; Translations: [Hyperglycemia, unspecified] Onset: 08-14-2024 08-14-2024 Episodic Genitourinary symptoms and ill-defined conditions (20 sources) Microscopic hematuria; Translations: [Other microscopic hematuria] Onset: 07-29-2023 Resolved: 03-30-2024 07-29-2023 Episodic Mood disorders (13 sources) Mood disorders Onset: 12-01-2023 12-01-2023 Other and unspecified benign neoplasm (20 sources) Lipoma (clinical); Translations: [Benign lipomatous neoplasm, unspecified] Onset: 09-26-2023 09-26-2023 Episodic Other gastrointestinal disorders (20 sources) Chronic constipation; Translations: [Other constipation] Onset: 08-21-2023 08-21-2023 Episodic Other infections; including parasitic (20 sources) History of human papilloma virus infection; [...] Onset: 07-22-2023 07-22-2023 Episodic Other skin disorders (20 sources) Mass of skin; Translations: [Localized swelling, mass and lump, unspecified] Onset: 03-30-2024 03-30-2024 Episodic Residual codes; unclassified (20 sources) Tobacco user; Translations: [Tobacco use] Onset: 07-22-2023 Resolved: 10-05-2024 07-22-2023 Episodic Residual codes; unclassified (20 sources) Insomnia; Translations: [Insomnia, unspecified] Onset: 09-26-2023 09-26-2023 Episodic Superficial injury; contusion (20 sources) Contusion of scalp; Translations: [Contusion of scalp, initial encounter] Onset: 03-30-2024 Resolved: 07-30-2024 03-30-2024 Episodic Unclassified (1 source) CONTACT W/AND (SUSP) EXPOS COVID-19; Translations: [CONTACT W/AND (SUSP) EXPOS COVID-19] Onset: 11-03-2021 Viral infection (20 sources) Genital warts; Translations: [Anogenital (venereal) warts] Onset: 09-26-2023 09-26-2023 Episodic Results Test Name Value Interpretation Reference Range Facility CYTOLOGYon 12-30-2024 CYTOLOGY CYTOL CYTOLOGY Cancelled Normal [facility] Comment on above: Order Comment: Wrong test ordered, see Cytology non-gynecologic [id number]. UROVYSION(TM) FOR BLADDERon 12-30-2024 UROVYSION FOR BLADDER CANCER SEE COMMENTS Normal [facility] Comment on above: Result Comment: Test Result Flag Unit RefValue --------- UroVysion (R) for Bladder Cancer Result Summary [...] and a locus specific probe for 9p21 ([employer] [place], [place]). This test has been modified from the acoustical tile patternmaker's instructions. Its performance characteristics were determined by [facility] in a manner consistent with CLIA requirements. This test has not been cleared or approved by the U.S. Food and Drug Administration. Reason for Referral Evaluate for urothelial carcinoma. Specimen Varies Source Urine, NOS Released By Calixto Gross M.D. Test Performed by: [place] [address] Operations Recruiter: Te Moreau Ph.D.; CLIA# [id number] Performed By: #### U RVY #### [facility] (SDL) [address] [place] [address] VIR TBH VITAMIN D 25 OHon 2024 VITAMIN D 42 ng/mL [facility] Comment on above: <20 ng/mL Vit D def icient 20-<30 ng/mL Vit D insufficient 30-100 ng/mL Vit D sufficient >100 ng/mL Potential Toxicity [facility] ALL BASIC METABOLIC PANELon 10-12-2024 Anion gap [Moles/Vol] 12 mmol/L [facility] Calcium [Mass/Vol] 8.7 mg/dL 8.5 - 10. 1 mg/dL [facility] Chloride [Moles/Vol] 103 mmol/L 98 - 10 7 mmol/L [facility] CO2 [Moles/Vol] 30.6 mmol/L 21.0 - 32.0 mmol/L [facility] Creatinine [Mass/Vol] 1.09 mg/dL 0.70 - 1.30 mg/dL [facility] GFR/1.73 sq M.predicted CKD-EPI (S/P/Bld) [Vol rate/Area] >60 >=60 mL/min/1.73m 2 [facility] Glucose [Mass/Vol] 107 mg/dL High 74 - 106 mg/dL [facility] Interpretation and review of laboratory results Abnormal [facility] Potassium [Moles/Vol] 3.6 mmol/L 3.5 - 5.1 mmol/L [facility] Sodium [Moles/Vol] 142 mmol/L 136 - 145 mmol/L [facility] TBH EGFR-NON AF SLOVAK >60 >=6 0 mL/min/1.73m 2 [facility] Urea nitrogen [Mass/Vol] 9 mg/dL 7.0 - 18.0 mg/dL [facility] Urea nitrogen/Creatinine [Mass ratio] 8.3 mg/mg [facility]PIR[facility] CULTUREon 09-14-2024 UPPER RESPIRATORY CULTURE Upper Respiratory Culture [facility] UPPER RESPIRATORY CULTURE Routine respiratory anil [facility] UPPER RESPIRATORY CULTURE [facility]ER RESPIRATORY CULTURE [address] [place], [place] [id number] [facility] UPPER RESPIRATORY CULTURE Operations Recruiter: Juan Francisco Madison PhD, Phone: [phone] [facility] HEMOGLOBIN A1Con 025 Glucose [Mass/Vol] 97 mg/dL [facility] HbA1c (Bld) [Mass fraction] 5 % 4.5 - 6.2 % [facility] Comment on above: ADA RECOMMENDED LIMI T 4.0 - 6.0 ADA THERAPEUTIC TARGET < 7.0 ACTION SUGGESTED > 7.0 [facility] ALL LIPID PROFILE (FASTING)o n 08-13-2024 CHOL HDL RATIO 2.9 [facility] Comment on above: 3.3 - 4.4 LOW RISK 4.4 - 7.1 AVERAGE RISK 7.1 - 11.0 MODERATE RISK >11.0 HIGH RISK Cholesterol [Mass/Vol] 138 mg/dL NINF - 200 mg/dL [facility] Cholesterol in HDL [Mass/Vol] 47 mg/dL 40 - 60 mg/dL [facility] Comment on above: > or =60 mg/dl - LOW CARDIOVASCULAR RISK <40 mg/dl - HIGH CARDIOVASCULAR RISK Magnesium [Mass/Vol] 76.4 mg/dL [facility] Comment on above: <100 mg/dl OPTIMAL 100-129 mg/dl NEAR OR ABOVE OPTIMAL 130-159 mg/dl BORDERLINE HIGH 160-189 mg/dl HIGH >190 mg/dl VERY HIGH Magnesium [Mass/Vol] 14.6 mg/dL [facility] Triglyceride [Mass/Vol] 73 mg/dL NINF - 150 mg/dL [facility] ALL THYROID STIM HORMONEon 0 08-13-2024 TSH Qn 2.102 m[IU]/L [facility] CCF CMP (CMP) (FOR REMOTE FH C USE)on 08-13-2024 Albumin [Mass/Vol] 3.3 g/dL Low 3.4 - 5.0 g/dL [facility] ALBUMIN GLOBULIN RATIO 1 [facility] ALP [Catalytic activity/Vol] 93 U/L 46 - 116 U/L [facility] ALT [Catalytic activity/Vol] 38 U/L 16 - 63 U/L [facility] Anion gap [Moles/Vol] 7.8 mmol/L [facility] AST [Catalytic activity/Vol] 19 U/L 15 - 37 U/L [facility] Bilirubin [Mass/Vol] 0.7 mg/dL 0.2 - 1 .0 mg/dL [facility] Calcium [Mass/Vol] 8.3 mg/dL Low 8.5 - 10. 1 mg/dL [facility] Chloride [Moles/Vol] 106 mmol/L 98 - 10 7 mmol/L [facility] CO2 [Moles/Vol] 32.1 mmol/L High 21.0 - 32.0 mmol/L [facility] Creatinine [Mass/Vol] 1.14 mg/dL 0.70 - 1.30 mg/dL [facility] GFR/1.73 sq M.predicted CKD-EPI (S/P/Bld) [Vol rate/Area] >60 >=60 mL/min/1.73m 2 [facility] Globulin (S) [Mass/Vol] 3.3 g/dL [facility] Glucose [Mass/Vol] 119 mg/dL High 74 - 106 mg/dL [facility] Interpretation and review of laboratory results Abnormal [facility] Potassium [Moles/Vol] 3.9 mmol/L 3.5 - 5.1 mmol/L [facility] Protein [Mass/Vol] 6.6 g/dL 6.4 - 8.2 g/dL [facility] Sodium [Moles/Vol] 142 mmol/L 136 - 145 mmol/L [facility] TBH EGFR-NON AF SLOVAK >60 >=6 0 mL/min/1.73m 2 [facility] Urea nitrogen [Mass/Vol] 13 mg/dL 7.0 - 18.0 mg/dL [facility] Urea nitrogen/Creatinine [Mass ratio] 11.4 mg/mg [facility] No Panel Informationon 08-13 [facility] Cytologyon 06-17-2024 Cytology Normal [facility] Comment on above: Result Comment: [facility] [address] [place] [address] Cytology Consultation Patient Name:RENO ABREU:1970 (Age: 53)Gender:MTaken:06/17/2024eported:06/18/2024 14:16Physician(s):Lida Suh M.D. ([phone])Copy To: Rec. #:[id number]: #[id number] Final Cytologic Diagnosis Urine: Negative for high-grade urothelial cell carcinoma. 06/18/2024 Interpretation performed at [facility], [address] [place] [address], License number: [id number].Electronically Signed Out By Trevin Mallory MD Clinical History Malignant neoplasm of overlapping sites of bladder (CMS-HCC) (C67.8) Gross Description Received was 50 mL of cloudy yellow fluid labeled as Rikki, urine .Preservative added. 25 mL used for Cytology. See UroVysion report. Source of Specimen Urine Non SILO OPERATOR ThinPrep Fee Code(s): 1; 58776 Reference Lab Test IDon 12-0 UROVYSION FOR BLADDER CANCER SEE COMMENTS 06/25/2024 12:33 PM Normal [facility] Comment on above: Result Comment: NOTE Test [...] specific probe for 9p21 ([employer] [place], [place]). This test has been modified from the acoustical tile patternmaker's instructions. Its performance characteristics were determined by [facility] in a manner consistent with CLIA requirements. This test has not been cleared or approved by the U.S. Food and Drug Administration. Reason for Referral Evaluate for urothelial carcinoma. Specimen Varies Source Urine, NOS Released By See Note Calixto Gross MWicho. Test Performed by: [place] [address] Operations Recruiter: Te Moreau Ph.D.; CLIA# [id number] Performed By: #### 3 0896-5 #### [facility] ([id number]) [address] [place] [address] Cytologyon 03-18-2024 Cytology Normal [facility] Comment on above: Result Comment: [facility] [address] [place] [address] Cytology Consultation Patient Name:RENO ABREU:1970 (Age: 53)Gender:MTaken:4Reported:03/19/2024 17:33Physician(s):Lida Suh M.D. ([phone])Copy To: Rec. #:[id number]: #[id number] Final Cytologic Diagnosis Urine clean catch: Negative for high-grade urothelial cell carcinoma. ao/03/19/2024 Interpretation performed at [facility], [address] [place] [address], License number: [id number].Electronically Signed Out By George Smith MD Clinical History Malignant neoplasm of overlapping sites of bladder ([facility]-HCC) C67.8 Gross Description Received was 70mL of cloudy nannette fluid unfixed labeled as Rikki, Urine clean catch . 35mL used for Cytology. See UroVysion report. Source of Specimen Urine clean catch Non SILO OPERATOR ThinPrep Fee Code(s): 1; 84550 Reference Lab Test IDon 09-0 UROVYSION FOR BLADDER CANCER SEE COMMENTS 03/26/2024 08:20 AM Normal [facility] Comment on above: Result Comment: NOTE Test [...] specific probe for 9p21 ([employer] [place], [place]). This test has been modified from the acoustical tile patternmaker's instructions. Its performance characteristics were determined by [facility] in a manner consistent with CLIA requirements. This test has not been cleared or approved by the U.S. Food and Drug Administration. Reason for Referral Evaluate for urothelial carcinoma. Specimen Varies Source Urine, NOS Released By Adrianna Proctor M.D. Test Performed by: [place] [address] Operations Recruiter: eT Moreau Ph.D.; CLIA# [id number] Performed By: #### 3 0896-5 #### [facility] ([id number]) [address] [place] [address] Prostate specific Ag [Mass/V ol]on 03-09-2024 PROSTATIC SPEC ANT 2.12 ng/mL Normal 0.00-4.00 [facility] Comment on above: Result Comment: The method used for this test is Tomas Gomer DXI chemiluminescent immunoassay. Values obtained by different assay methods cannot be used interchangeably. Performed By: #### 2 857-1 #### [facility] ([id number]) [address] [place] [address] URINE CULTUREon 03-09-2024 Bacteria identified Cx Nom (U) CULTURE RESULTS <10,000 ORGANISMS/ML NORMAL URO GENITAL ANIL Normal [facility] Comment on above: Performed By: #### 6 30-4 #### [facility] ([id number]) [address] [place] [address] Measure post void residualon 01-29-2024 Volume 37ml [facility] BASIC METABOLIC PANLon 12-01 Anion gap [Moles/Vol] 6 mmol/L Normal 5-15 [facility] Comment on above: Performed By: #### C BCA, BMP, , 2776-07 #### [facility] ([id number]) [address], [address] [place] [address] Calcium [Mass/Vol] 8.0 mg/dL Low 8.5-10.5 [facility] Comment on above: Performed By: #### C BCA, BMP, , 2776-07 #### [facility] ([id number]) [address], [address] [place] [address] Chloride [Moles/Vol] 104 mmol/L Normal 98-109 [facility] Comment on above: Performed By: #### C BCA, BMP, , 2776-07 #### [facility] ([id number]) [address], [address] [place] [address] CO2 [Moles/Vol] 28 mmol/L Normal 22-32 [facility] Comment on above: Performed By: #### C BCA, BMP, , 2776-07 #### [facility] ([id number]) [address], [address] [place] [address] Creatinine [Mass/Vol] 0.91 mg/dL Normal 0.60-1.30 [facility] Comment on above: Result Comment: METH OD TRACEABLE TO IDMS STANDARD Performed By: #### C BCA, BMP, , 2776-07 #### [facility] ([id number]) [address], [address] [place] [address] eGFR (CKD-EPI) NON-RACE DEPENDENT >90 Normal >59 [facility] Comment on above: Result Comment: Reported eGFR is based on the CKD-EPI 2020 equation that does not use a race coefficient. Performed By: #### C BCA, BMP, , 2776-07 #### [facility] ([id number]) [address], [address] [place] [address] Glucose [Mass/Vol] 112 mg/dL High 65-99 [facility] Comment on above: Performed By: #### C JOHN, BMP, , 2776-07 #### [facility] ([id number]) [address], [address] [place] [address] Potassium [Moles/Vol] 3.8 mmol/L Normal 3.5-5.0 [facility] Comment on above: Performed By: #### C JOHN, BMP, , 2776-07 #### [facility] ([id number]) [address], [address] [place] [address] Sodium [Moles/Vol] 138 mmol/L Normal 134-146 [facility] Comment on above: Performed By: #### C JOHN, BMP, , 2776-07 #### [facility] ([id number]) [address], [address] [place] [address] Urea nitrogen [Mass/Vol] 15 mg/dL Normal 5-23 [facility] Comment on above: Performed By: #### C JOHN, BMP, , 2776-07 #### [facility] ([id number]) [address], [address] [place] [address] CBC AND AUTO DIFFon 05-20-20 24 ABSOLUTE BASOPHIL 0.0 X10E9/L Normal 0.0-0.2 [facility] Comment on above: Performed By: #### C JOHN, BMP, , 2776-07 #### [facility] ([id number]) [address], [address] [place] [address] ABSOLUTE NEUTROPHIL 3.7 X10E9/L Normal 1.5-6.6 [facility] Comment on above: Performed By: #### C BCA, BMP, , 2776-07 #### [facility] ([id number]) [address], [address] [place] [address] Basophils/100 WBC (Bld) 0.4 % Normal P [facility] Comment on above: Performed By: #### C JOHN, BMP, , 2776-07 #### [facility] ([id number]) [address], [address] [place] [address] Eosinophils (Bld) [#/Vol] 0.2 10*3/uL Normal 0.0-0.4 [facility] Comment on above: Performed By: #### C BCA, BMP, , 2776-07 #### [facility] ([id number]) [address], [address] [place] [address] Eosinophils/100 WBC (Bld) 3.5 % Normal [facility] Comment on above: Performed By: #### C BCA, BMP, , 2776-07 #### [facility] ([id number]) [address], [address] [place] [address] Erythrocyte distribution width (RBC) [Ratio] 12.5 % Normal 11.5-15.0 [facility] Comment on above: Performed By: #### C BCA, BMP, , 2776-07 #### [facility] ([id number]) [address], [address] [place] [address] Hematocrit (Bld) [Volume fraction] 40.6 % Normal 39-49 [facility] Comment on above: Performed By: #### C BCA, BMP, , 2776-07 #### [facility] ([id number]) [address], [address] [place] [address] Hemoglobin (Bld) [Mass/Vol] 13.9 g/dL Normal 13.0-17.0 [facility] Comment on above: Performed By: #### C BCA, BMP, , 2776-07 #### [facility] ([id number]) [address], [address] [place] [address] Lymphocytes (Bld) [#/Vol] 1.5 10*3/uL Normal 1.0-3.5 [facility] Comment on above: Performed By: #### C JOHN, ALEXYS, , 2776-07 #### [facility] ([id number]) [address], [address] [place] [address] Lymphocytes/100 WBC (Bld) 25.2 % Normal [facility] Comment on above: Performed By: #### C JOHN, ALEXYS, , 2776-07 #### [facility] ([id number]) [address], [address] [place] [address] MCH (RBC) [Entitic mass] 30.6 pg Normal 27-34 [facility] Comment on above: Performed By: #### C JOHN, BMP, , 2776-07 #### [facility] ([id number]) [address], [address] [place] [address] MCHC (RBC) [Mass/Vol] 34.3 g/dL Normal 32-36 [facility] Comment on above: Performed By: #### C ALEXYS LOPEZ, , 2776-07 #### [facility] ([id number]) [address], [address] [place] [address] MCV (RBC) [Entitic vol] 89 fL Normal 80-100 [facility] Comment on above: Performed By: #### C JOHN, BMP, , 2776-07 #### [facility] ([id number]) [address], [address] [place] [address] Monocytes (Bld) [#/Vol] 0.5 10*3/uL Normal 0-0.9 [facility] Comment on above: Performed By: #### C JOHN, BMP, , 2776-07 #### [facility] ([id number]) [address], [address] [place] [address] Monocytes/100 WBC (Bld) 7.9 % Normal P [facility] Comment on above: Performed By: #### C BCA, BMP, , 2776-07 #### [facility] ([id number]) [address], [address] [place] [address] Neutrophils/100 WBC (Bld) 63.0 % Normal [facility] Comment on above: Performed By: #### C BCA, BMP, , 2776-07 #### [facility] ([id number]) [address], [address] [place] [address] Platelet mean volume (Bld) [Entitic vol] 7.8 fL Normal 7-12 [facility] Comment on above: Performed By: #### C BCA, BMP, , 2776-07 #### [facility] ([id number]) [address], [address] [place] [address] Platelets (Bld) [#/Vol] 193 10*3/uL Normal 150-450 [facility] Comment on above: Performed By: #### C BCA, BMP, , 2776-07 #### [facility] ([id number]) [address], [address] [place] [address] RBC COUNT 4.55 X10E12/L Normal 4.10-5.70 [facility] Comment on above: Performed By: #### C BCA, BMP, , 2776-07 #### [facility] ([id number]) [address], [address] [place] [address] WBC (Bld) [#/Vol] 5.9 10*3/uL Normal 4.0-11.0 [facility] Comment on above: Performed By: #### C JOHN, BMP, , 2776-07 #### [facility] ([id number]) [address], [address] [place] [address] MAGNESIUMon 12-02-2023 Magnesium [Mass/Vol] 1.8 mg/dL Normal 1.8-2.6 [facility] Comment on above: Performed By: #### C JOHN, BMP, , 2776-07 #### [facility] ([id number]) [address], [address] [place] [address] PHOSPHORUSon 12-02-2023 Phosphate [Mass/Vol] 3.2 mg/dL Normal 2.4-4.9 [facility] Comment on above: Performed By: #### C JOHN, BMP, , 2776-07 #### [facility] ([id number]) [address], [address] [place] [address] BASIC METABOLIC PANLon 11-30 Anion gap [Moles/Vol] 6 mmol/L Normal 5-15 [facility] Comment on above: Performed By: #### C JOHN, BMP, , 2776-07 #### [facility] ([id number]) [address], [address] [place] [address] Calcium [Mass/Vol] 8.2 mg/dL Low 8.5-10.5 [facility] Comment on above: Performed By: #### C BCA, BMP, , 2776-07 #### [facility] ([id number]) [address], [address] [place] [address] Chloride [Moles/Vol] 104 mmol/L Normal 98-109 [facility] Comment on above: Performed By: #### C BCA, BMP, , 2776-07 #### [facility] ([id number]) [address], [address] [place] [address] CO2 [Moles/Vol] 30 mmol/L Normal 22-32 [facility] Comment on above: Performed By: #### C JOHN, BMP, , 2776-07 #### [facility] ([id number]) [address], [address] [place] [address] Creatinine [Mass/Vol] 0.90 mg/dL Normal 0.60-1.30 [facility] Comment on above: Result Comment: METH OD TRACEABLE TO IDMS STANDARD Performed By: #### C JOHN, BMP, , 2776-07 #### [facility] ([id number]) [address], [facility] [address] [place] [address] eGFR (CKD-EPI) NON-RACE DEPENDENT >90 Normal >59 [facility] Comment on above: Result Comment: Reported eGFR is based on the CKD-EPI 2020 equation that does not use a race coefficient. Performed By: #### C BCA, BMP, , 2776-07 #### [facility] ([id number]) [address], [address] [place] [address] Glucose [Mass/Vol] 88 mg/dL Normal 65-99 [facility] Comment on above: Performed By: #### C JOHN, BMP, , 2776-07 #### [facility] ([id number]) [address], [address] [place] [address] Potassium [Moles/Vol] 3.6 mmol/L Normal 3.5-5.0 [facility] Comment on above: Performed By: #### C BCA, BMP, , 2776-07 #### [facility] ([id number]) [address], [address] [place] [address] Sodium [Moles/Vol] 140 mmol/L Normal 134-146 [facility] Comment on above: Performed By: #### C BCA, BMP, , 2776-07 #### [facility] ([id number]) [address], [address] [place] [address] Urea nitrogen [Mass/Vol] 10 mg/dL Normal 5-23 [facility] Comment on above: Performed By: #### C JOHN, BMP, , 2776-07 #### [facility] ([id number]) [address], [address] [place] [address] CBC AND AUTO DIFFon 12-01-19 24 ABSOLUTE BASOPHIL 0.0 X10E9/L Normal 0.0-0.2 [facility] Comment on above: Performed By: #### C JOHN, BMP, , 2776-07 #### [facility] ([id number]) [address], [address] [place] [address] ABSOLUTE NEUTROPHIL 4.2 X10E9/L Normal 1.5-6.6 [facility] Comment on above: Performed By: #### C JOHN, BMP, , 2776-07 #### [facility] ([id number]) [address], [address] [place] [address] Basophils/100 WBC (Bld) 0.5 % Normal [facility] Comment on above: Performed By: #### C JOHN, BMP, , 2776-07 #### [facility] ([id number]) [address], [address] [place] [address] Eosinophils (Bld) [#/Vol] 0.2 10*3/uL Normal 0.0-0.4 [facility] Comment on above: Performed By: #### C BCA, BMP, , 2776-07 #### [facility] ([id number]) [address], [address] [place] [address] Eosinophils/100 WBC (Bld) 2.8 % Normal [facility] Comment on above: Performed By: #### C BCA, BMP, , 2776-07 #### [facility] ([id number]) [address], [address] [place] [address] Erythrocyte distribution width (RBC) [Ratio] 12.9 % Normal 11.5-15.0 [facility] Comment on above: Performed By: #### C JOHN, BMP, , 2776-07 #### [facility] ([id number]) [address], [address] [place] [address] Hematocrit (Bld) [Volume fraction] 43.1 % Normal 39-49 [facility] Comment on above: Performed By: #### C JOHN, BMP, , 2776-07 #### [facility] ([id number]) [address], [address] [place] [address] Hemoglobin (Bld) [Mass/Vol] 14.9 g/dL Normal 13.0-17.0 [facility] Comment on above: Performed By: #### C JOHN, BMP, , 2776-07 #### [facility] ([id number]) [address], [address] [place] [address] Lymphocytes (Bld) [#/Vol] 1.5 10*3/uL Normal 1.0-3.5 [facility] Comment on above: Performed By: #### C JOHN, BMP, , 2776-07 #### [facility] ([id number]) [address], [address] [place] [address] Lymphocytes/100 WBC (Bld) 23.7 % Normal [facility] Comment on above: Performed By: #### C BCA, BMP, , 2776-07 #### [facility] ([id number]) [address], [address] [place] [address] MCH (RBC) [Entitic mass] 30.8 pg Normal 27-34 [facility] Comment on above: Performed By: #### C JOHN, ALEXYS, , 2776-07 #### [facility] ([id number]) [address], [address] [place] [address] MCHC (RBC) [Mass/Vol] 34.5 g/dL Normal 32-36 [facility] Comment on above: Performed By: #### C JOHN, BMP, , 2776-07 #### [facility] ([id number]) [address], [address] [place] [address] MCV (RBC) [Entitic vol] 89 fL Normal 80-100 P [facility] Comment on above: Performed By: #### Richa LOPEZ, BMP, , 2776-07 #### [facility] ([id number]) [address], [address] [place] [address] Monocytes (Bld) [#/Vol] 0.5 10*3/uL Normal 0-0.9 [facility] Comment on above: Performed By: #### C JOHN, ALEXYS, , 2776-07 #### [facility] ([id number]) [address], [address] [place] [address] Monocytes/100 WBC (Bld) 8.0 % Normal P [facility] Comment on above: Performed By: #### Richa LOPEZ, BMP, , 2776-07 #### [facility] ([id number]) [address], [address] [place] [address] Neutrophils/100 WBC (Bld) 65.0 % Normal [facility] Comment on above: Performed By: #### C JOHN, BMP, , 2776-07 #### [facility] ([id number]) [address], [address] [place] [address] Platelet mean volume (Bld) [Entitic vol] 7.8 fL Normal 7-12 [facility] Comment on above: Performed By: #### C JOHN, BMP, , 2776-07 #### [facility] ([id number]) [address], [address] [place] [address] Platelets (Bld) [#/Vol] 193 10*3/uL Normal 150-450 [facility] Comment on above: Performed By: #### C JOHN, BMP, , 2776-07 #### [facility] ([id number]) [address], [address] [place] [address] RBC COUNT 4.83 X10E12/L Normal 4.10-5.70 [facility] Comment on above: Performed By: #### C JOHN, BMP, , 2776-07 #### [facility] ([id number]) [address], [address] [place] [address] WBC (Bld) [#/Vol] 6.4 10*3/uL Normal 4.0-11.0 [facility] Comment on above: Performed By: #### C JOHN, BMP, , 2776-07 #### [facility] ([id number]) [address], [address] [place] [address] Complete Blood Count Auto Di ffon 12-01-2023 Basophils (Bld) [#/Vol] 0.0 10*3/uL Normal 0.0-0.2 [facility] Comment on above: Result Comment: PERF ORMED BY: [place] [address] PATHOLOGIST [employer] HIREN KAPLAN M.D. Performed By: #### C BC, CMP #### [address] [address] [facility] Basophils/100 WBC (Bld) 0.6 % Normal . T [facility] Comment on above: Performed By: #### C BC, CMP #### [facility] [address] Eosinophils (Bld) [#/Vol] 0.2 10*3/uL Normal 0.0-0.45 [facility] Comment on above: Performed By: #### C BC, CMP #### [address] Eosinophils/100 WBC (Bld) 3.0 % Normal . [facility] Comment on above: Performed By: #### C BC, CMP #### [address] Erythrocyte distribution width (RBC) [Ratio] 12.9 % Normal 12.0-14.8 [facility] Comment on above: Performed By: #### C BC, CMP #### [address] Hematocrit (Bld) [Volume fraction] 43.0 % Normal 38.8-50.0 [facility] Comment on above: Performed By: #### C BC, CMP #### [address] Hemoglobin (Bld) [Mass/Vol] 14.8 g/dL Normal 13.0-17.0 [facility] Comment on above: Performed By: #### C BC, CMP #### [address] Lymphocytes (Bld) [#/Vol] 1.8 10*3/uL Normal 1.00-4.8 [facility] Comment on above: Performed By: #### C BC, CMP #### [address] Lymphocytes/100 WBC (Bld) 26.4 % Normal . [facility] Comment on above: Performed By: #### C BC, CMP #### [address] MCH (RBC) [Entitic mass] 30.8 pg Normal 27.5-35.2 [facility] Comment on above: Performed By: #### C BC, CMP #### [address] MCV (RBC) [Entitic vol] 89.5 fL Normal 83.5-101 [facility] Comment on above: Performed By: #### C BC, CMP #### [address] Mean Corpuscular HGB Conc 34.4 g/dL Normal 32.5-35.6 [facility] Comment on above: Performed By: #### C BC, CMP #### [address] Monocytes (Bld) [#/Vol] 0.6 10*3/uL Normal 0.0-0.8 [facility] Comment on above: Performed By: #### C BC, CMP #### [address] Monocytes/100 WBC (Bld) 18.12 % Normal 0.00-20.00 [facility] Comment on above: Performed By: #### C BC, CMP #### [address] Monocytes/100 WBC (Bld) 8.8 % Normal . [facility] Comment on above: Performed By: #### C BC, CMP #### [address] Neutrophils (Bld) [#/Vol] 4.1 10*3/uL Normal 1.8-7.7 [facility] Comment on above: Performed By: #### C BC, CMP #### [address] Neutrophils/100 WBC (Bld) 61.2 % Normal . [facility] Comment on above: Performed By: #### C BC, CMP #### [address] NRBC% 0.1 /100{WBC} Normal 0-0.5 [facility] Comment on above: Performed By: #### C BC, CMP #### [address] Platelet mean volume (Bld) [Entitic vol] 7.8 fL Normal 6.6-10.1 [facility] Comment on above: Performed By: #### C BC, CMP #### [address] Platelets (Bld) [#/Vol] 229 10*3/uL Normal 150-450 [facility] Comment on above: Performed By: #### C BC, CMP #### [address] RBC (Bld) [#/Vol] 4.80 10*6/uL Normal 3.90-5.60 [facility] Comment on above: Performed By: #### C BC, CMP #### [address] WBC (Bld) [#/Vol] 6.7 10*3/uL Normal 4.1-10.5 [facility] Comment on above: Performed By: #### C BC, CMP #### [address] Comprehensive Metabolic Pane demetrius 12-01-2023 Albumin [Mass/Vol] 3.7 g/dL Normal 3.5-5.7 [facility] Comment on above: Performed By: #### C BC, CMP #### [address] Albumin/Globulin [Mass ratio] 1.4 {ratio} Normal [facility] Comment on above: Performed By: #### C BC, CMP #### [address] ALP [Catalytic activity/Vol] 89 U/L Normal 34-104 [facility] Comment on above: Performed By: #### C BC, CMP #### [address] ALT [Catalytic activity/Vol] 21 U/L Normal 7-52 [facility] Comment on above: Performed By: #### C BC, CMP #### [address] Anion gap [Moles/Vol] 8.7 mmol/L Normal 6.0-15.0 [facility] Comment on above: Performed By: #### C BC, CMP #### [address] AST [Catalytic activity/Vol] 20 U/L Normal 13-39 [facility] Comment on above: Performed By: #### C BC, CMP #### [address] Bilirubin [Mass/Vol] 0.5 mg/dL Normal 0.3-1.0 [facility] Comment on above: Performed By: #### C BC, CMP #### [address] Calcium [Mass/Vol] 8.6 mg/dL Normal 8.6-10.3 [facility] Comment on above: Performed By: #### C BC, CMP #### [address] Chloride [Moles/Vol] 105 mmol/L Normal 98-107 [facility] Comment on above: Performed By: #### C BC, CMP #### [place] [address] [place] CO2 [Moles/Vol] 26.9 mmol/L Normal 21.0-31.0 [facility] Comment on above: Performed By: #### C BC, CMP #### [place] [address] [place] Creatinine [Mass/Vol] 0.91 mg/dL Normal 0.70-1.30 [facility] Comment on above: Performed By: #### C BC, CMP #### [place] [address] [place] Creatinine Clr Calc Pharmacy 127.55 Normal [facility] Comment on above: Result Comment: PERF ORMED BY: [place] [address] PATHOLOGIST [employer] HIREN KAPLAN M.D. Performed By: #### C BC, CMP #### [address] GFR/1.73 sq M.predicted MDRD (S/P/Bld) [Vol rate/Area] mL/min/{1.73_m2} Normal [facility] Comment on above: Performed By: #### C BC, CMP #### [address] Globulin (S) [Mass/Vol] 2.6 g/dL Normal T [facility] Comment on above: Performed By: #### C BC, CMP #### [address] Glucose [Mass/Vol] 101 mg/dL High 70-100 [facility] Comment on above: Result Comment: [facility] Glucose Reference Range is dependent on time and content of last meal. Glucose of more than 200 mg/dL in a nonstressed, ambulatory subject supports the diagnosis of Diabetes Mellitus. ADA recommended reference range Performed By: #### C BC, CMP #### [address] Potassium [Moles/Vol] 3.6 mmol/L Normal 3.5-5.1 [facility] Comment on above: Performed By: #### C BC, CMP #### [address] Protein [Mass/Vol] 6.3 g/dL Low 6.4-8.9 [facility] Comment on above: Performed By: #### C BC, CMP #### [address] Sodium [Moles/Vol] 137 mmol/L Normal 136-145 [facility] Comment on above: Performed By: #### C BC, CMP #### [address] Urea nitrogen [Mass/Vol] 14 mg/dL Normal 7-25 [facility] Comment on above: Performed By: #### C BC, CMP #### [place] [address] [place] Dipstick and Microscopicon 0 12-01-2023 Appearance (U) Turbid Critically abnormal Clear [facility] Comment on above: Order Comment: Name Collection Type:: Clean-Voided Midstream Performed By: #### A DDONUAPLUS, CUU #### [address] Bacteria,Urine None Seen Normal None Seen [facility] Comment on above: Order Comment: Name Collection Type:: Clean-Voided Midstream Result Comment: PERF ORMED BY: [place] [address] PATHOLOGIST [employer] HIREN KAPLAN M.D. Performed By: #### A DDONUAPLUS, CUU #### [address] Bilirubin,Urine Normal Negative [facility] Comment on above: Order Comment: Name Collection Type:: Clean-Voided Midstream Result Comment: Unab le to obtain accurate result due to color interference. Performed By: #### A DDONUAPLUS, CUU #### [address] Color (U) Red Critically abnormal Yellow [facility] Comment on above: Order Comment: Name Collection Type:: Clean-Voided Midstream Performed By: #### A DDONUAPLUS, CUU #### [address] Glucose Ql (U) Normal Normal [facility] Comment on above: Order Comment: Name Collection Type:: Clean-Voided Midstream Result Comment: Unab le to obtain accurate result due to color interference. Performed By: #### A DDONUAPLUS, CUU #### [place] [address] [place] Ketones Ql (U) Normal Negative [facility] Comment on above: Order Comment: Name Collection Type:: Clean-Voided Midstream Result Comment: Unab le to obtain accurate result due to color interference. Performed By: #### A DDONUAPLUS, CUU #### [place] [address] [place] Leukocyte esterase Test strip Ql (U) Normal Negative [facility] Comment on above: Order Comment: Name Collection Type:: Clean-Voided Midstream Result Comment: Unab le to obtain accurate result due to color interference. Performed By: #### A DDONUAPLUS, CUU #### [facility] [address] [place] [address] [place] Nitrite,Urine Normal Negative [facility] Comment on above: Order Comment: Name Collection Type:: Clean-Voided Midstream Result Comment: Unab le to obtain accurate result due to color interference. Performed By: #### A DDONUAPLUS, CUU #### [facility] [address] Occult Blood,Urine Normal Negative The [facility] Comment on above: Order Comment: Name Collection Type:: Clean-Voided Midstream Result Comment: Unab le to obtain accurate result due to color interference. Performed By: #### A DDONUAPLUS, CUU #### [place] [address] [place] pH,Urine Normal 5.0-9.0 [facility] Comment on above: Order Comment: Name Collection Type:: Clean-Voided Midstream Result Comment: Unab le to obtain accurate result due to color interference. Performed By: #### A DDONUAPLUS, CUU #### [place] [address] [place] Protein,Urine Normal Negative [facility] Comment on above: Order Comment: Name Collection Type:: Clean-Voided Midstream Result Comment: Unab le to obtain accurate result due to color interference. Performed By: #### A DDONUAPLUS, CUU #### [place] [id number] [place] RBC,Urine Innumerable High 0-4 [facility] Comment on above: Order Comment: Name Collection Type:: Clean-Voided Midstream Performed By: #### A DDONUAPLUS, CUU #### [place] [id number] [place] Specificy [place],Urine 1.010 Normal 1.001-1.030 [facility] Comment on above: Order Comment: Name Collection Type:: Clean-Voided Midstream Performed By: #### A DDONUAPLUS, CUU #### [address] Squamous Epithelial Cell,Urine None Seen Normal 0-2 [facility] Comment on above: Order Comment: Name Collection Type:: Clean-Voided Midstream Performed By: #### A DDONUAPLUS, CUU #### [address] Urobilinogen,Urine Normal Normal [facility] Comment on above: Order Comment: Name Collection Type:: Clean-Voided Midstream Result Comment: Unab le to obtain accurate result due to color interference. Performed By: #### A DDONUAPLUS, CUU #### [address] WBC,Urine 1-2 Normal 0-4 [facility] Comment on above: Order Comment: Name Collection Type:: Clean-Voided Midstream Performed By: #### A DDONUAPLUS, CUU #### [address] MAGNESIUMon 12-01-2023 Magnesium [Mass/Vol] 1.9 mg/dL Normal 1.8-2.6 [facility] Comment on above: Performed By: #### [place], [address]-4, 2777-1 #### [facility] ([id number]) [address], [address] [place] [address] PHOSPHORUSon 12-01-2023 Phosphate [Mass/Vol] 3.3 mg/dL Normal 2.4-4.9 [facility] Comment on above: Performed By: #### C BCA, BMP, , 2777-1 #### [facility] ([id number]) [address], [address] [place] [address] Partial Thromboplastin Timeo 12-01-2023 aPTT Coag (Bld) [Time] 31.9 s Normal 25.1-36.5 [facility] Comment on above: Order Comment: REDRA W: PRIOR SAMPLE QNS Result Comment: A he matocrit value greater than 55% may lead to inaccurate results in coagulation testing. Patients having hematocrit values >55% require a special collection tube for coagulation studies. Please contact the laboratory at [phone] for redraw instructions. PERFORMED BY: [place] [id number] PATHOLOGIST OUTBOARD MOTOR MECHANIC HIREN KAPLAN M.D. Performed By: #### P TT, PT #### [address] Prothrombin Time INRon 11-30 INR Coag (PPP) [Relative time] 1.0 {INR} Normal [facility] Comment on above: Order [...] Performed By: #### P TT, PT #### [address] PT Coag (PPP) [Time] 11.9 s Normal 9.0-12.9 [facility] Comment on above: Order Comment: REDRA W: PRIOR SAMPLE QNS Result Comment: A he matocrit value greater than 55% may lead to inaccurate results in coagulation testing. Patients having hematocrit values >55% require a special collection tube for coagulation studies. Please contact the laboratory at [phone] for redraw instructions. Performed By: #### P TT, PT #### [place] [id number] [facility] Urine Cultureon 12-01-2023 Bacteria identified Cx Nom (U) No Growth 2 Days PERFORMED BY: [place] [id number] PATHOLOGIST OUTBOARD MOTOR MECHANIC HIREN KAPLAN M.D. Normal [facility] Comment on above: Performed By: #### A DDONUAPLUS, U #### [facility] [address] Reference Lab Test IDon 05-0 UROVYSION FOR BLADDER CANCER SEE COMMENTS 11/21/2023 08:19 AM [facility] Comment on above: [...] specific probe for 9p21 ([employer] [place], [place]). This test has been modified from the acoustical tile patternmaker's instructions. Its performance characteristics were determined by [facility] in a manner consistent with CLIA requirements. This test has not been cleared or approved by the U.S. Food and Drug Administration. Reason for Referral Evaluate for urothelial carcinoma. Specimen Varies Source Urine, NOS Released By Adrianna Proctor M.D. Test Performed by: [address] [address] Operations Recruiter: Bear Mares M.D. Ph.D.; CLIA# [id number] URINE CULTUREon 11-13-2023 Bacteria identified Cx Nom (U) CULTURE RESULTS NO GROWTH AT <1000 CFU/mL [facility] Comment on above: Performed By: #### 6 30-4 #### [facility] ([id number]) [address] [address], [address] [place] [address] BOX TEST SENT OUTon 09-19-19 23 SENT TO REF LAB 09/18/2022 Normal [facility] Comment on above: Performed By: #### B OX #### [facility] [address] [address] [address] Pablo Blanchard Aspartate aminotransferase [ Enzymatic activity/volume] in Serum or PlasmaOrdered By: Hernandez Lares on 09-04-2022 AST [Catalytic activity/Vol] 22 U/L 10-42 [facility] Automated erythrocytes count in urine sediment (number/area)Ordered By: Hernandez Lares on 09-04-2022 RBC Auto (Urine sed) [#/Area] 3-4 [HPF] 0-4 [facility] Automated leukocytes count i n urine sediment (number/area)Ordered By: Hernandez Lares on 09-04-2022 WBC Auto (Urine sed) [#/Area] 3-4 [HPF] 0-4 [facility] Basophils Auto (Bld) [#/Vol] Ordered By: Hernandez Lares on 09-04-2022 Basophils (Bld) [#/Vol] 0.1 10*3/uL 0.0-0.2 [facility] Basophils/100 WBC Auto (Bld) Ordered By: Hernandez Lares on 09-04-2022 Basophils/100 WBC (Bld) 0.7 % . F [facility] Bilirubin Test strip Ql (U)O rdered By: Hernandez Lares on 09-04-2022 Bilirubin Ql (U) Negative Negative [facility] Body fluid albumin measureme nt (mass/volume)Ordered By: Hernandez Lares on 09-04-2022 Albumin (Body fld) [Mass/Vol] 3.6 g/dL 3.2-5.5 [facility] COVID CepheidOrdered By: Chapo Lares on 09-04-2022 SARS-CoV-2 (COVID-19) Ab IA Ql Negative Negative [facility] Comment on above: This is a duplicate [employer] Xpert Xpress CoV-2/Flu/RSV Plus RNA by RT-PCR result to be used for statistical tracking purpose only. SARS-CoV-2 (COVID-19) RNA NANCIE+probe Ql (Unsp spec) [facility] SARS-CoV-2 (COVID-19) RNA NANCIE+probe Ql (Unsp spec) [facility] Color Auto (U)Ordered By: Brandon Lares on 09-04-2022 Color (U) Yellow Yellow [facility] Creatine kinase [Enzymatic a ctivity/volume] in Serum or PlasmaOrdered By: Hernandez Lares on 09-04-2022 CK [Catalytic activity/Vol] 72 U/L [facility] Creatine kinase.MB [Mass/vol ume] in Serum or PlasmaOrdered By: Hernandez Lares on 09-04-2022 CK.MB [Mass/Vol] 0.7 ng/mL 0.6-6.3 [facility] Creatinine and Glomerular fi ltration rate.predicted panel (S/P/Bld)Ordered By: Hernandez Lares on 09-04-2022 Creatinine [Mass/Vol] 1.01 mg/dL 0.64-1.27 [facility] Eosinophils Auto (Bld) [#/Vo l]Ordered By: Hernandez Lares on 09-04-2022 Eosinophils (Bld) [#/Vol] 0.2 10*3/uL 0.0-0.45 [facility] Eosinophils/100 WBC Auto (Bl d)Ordered By: Hernandez Lares on 09-04-2022 Eosinophils/100 WBC (Bld) 2.5 % . [facility] Erythrocyte distribution wid th Auto (RBC) [Ratio]Ordered By: Hernandez Lares on 09-04-2022 Erythrocyte distribution width (RBC) [Ratio] 13.1 % 12.0-14.8 [facility] Estimated glomerular filtrat ion rate (GFR) non- AmericanOrdered By: Hernandez Lares on 09-04-2022 GFR/1.73 sq M.predicted among non-blacks MDRD (S/P/Bld) [Vol rate/Area] > 60 mL/Min [facility] Globulin Calc (S) [Mass/Vol] Ordered By: Hernandez Lares on 09-04-2022 Globulin (S) [Mass/Vol] 2.9 g/dL F [facility] Hematocrit Auto (Bld) [Volum e fraction]Ordered By: Hernandez Lares on 09-04-2022 Hematocrit (Bld) [Volume fraction] 45.8 % 38.8-50.0 [facility] Hemoglobin [Mass/volume] in BloodOrdered By: Hernandez Lares on 09-04-2022 Hemoglobin (Bld) [Mass/Vol] 15.6 g/dL 13.0-17.0 [facility] Ketones Auto test strip (U) [Mass/Vol]Ordered By: Hernandez Lares on 09-04-2022 Ketones (U) [Mass/Vol] Trace Negative Fi [facility] - UrinalysisOrder ed By: Hernandez Lares on 09-04-2022 Hyaline casts LM Ql (Urine sed) None seen [LPF] 0-8 [facility] Leukocytes [#/volume] correc pooja for nucleated erythrocytes in Blood by Automated counOrdered By: Hernandez Lares on 09-04-2022 WBC corrected for nucl RBC Auto (Bld) [#/Vol] 8.2 10*3/uL 4.1-10.5 [facility] Lymphocytes Auto (Bld) [#/Vo l]Ordered By: Hernandez Lares on 09-04-2022 Lymphocytes (Bld) [#/Vol] 2.2 10*3/uL 1.00-4.8 [facility] Lymphocytes/100 WBC Auto (Bl d)Ordered By: Hernandez Lares on 09-04-2022 Lymphocytes/100 WBC (Bld) 26.2 % . [facility] MCH Auto (RBC) [Entitic mass ]Ordered By: Hernandez Lares on 09-04-2022 MCH (RBC) [Entitic mass] 30.7 pg 27.5-35.2 [facility] MCHC Auto (RBC) [Mass/Vol]Or dered By: Hernandez Lares on 09-04-2022 MCHC (RBC) [Mass/Vol] 34.1 g/dL 32.5-35.6 [facility] MCV Auto (RBC) [Entitic vol] Ordered By: Hernandez Lares on 09-04-2022 MCV (RBC) [Entitic vol] 89.9 fL 83.5-101 [facility] Monocyte distribution width [Entitic volume] in Blood by AutomatedOrdered By: Hernandez Lares on 09-04-2022 Monocyte distribution width Auto (Bld) [Entitic vol] 16.89 % 0.00-20.00 [facility] Monocytes Auto (Bld) [#/Vol] Ordered By: Hernandez Lares on 09-04-2022 Monocytes (Bld) [#/Vol] 0.7 10*3/uL 0.0-0.8 [facility] Monocytes/100 WBC Auto (Bld) Ordered By: Hernandez Lares on 09-04-2022 Monocytes/100 WBC (Bld) 8.1 % . [facility] Neutrophils Auto (Bld) [#/Vo l]Ordered By: Hernandez Lares on 09-04-2022 Neutrophils (Bld) [#/Vol] 5.1 10*3/uL 1.8-7.7 [facility] Neutrophils/100 WBC Auto (Bl d)Ordered By: Hernandez Lares on 09-04-2022 Neutrophils/100 WBC (Bld) 62.5 % . [facility] Nitrite Test strip Ql (U)Ord ered By: Hernandez Lares on 09-04-2022 Nitrite Ql (U) Negative Negative [facility] No Panel InformationOrdered By: Hernandez Lares on 09-04-2022 Estimated GFR () > 60 mL/Min [facility] Comment on above: GFR estimated refere nce range: According to KDOQI guidelines, <60 ml/min/1.73m2 is sufficient to diagnose a patient with chronic kidney disease. Pharmacy Creatinine Clearance (Chem 116.51 [facility] Nucleated erythrocytes [Pres ence] in Blood by Automated countOrdered By: Hernandez Lares on 09-04-2022 Nucleated RBC Auto Ql (Bld) 0.1 /100{WBC} 0-0.5 [facility] Platelet mean volume Auto (B ld) [Entitic vol]Ordered By: Hernandez Lares on 09-04-2022 Platelet mean volume (Bld) [Entitic vol] 7.8 fL 6.6-10.1 [facility] Platelets Auto (Bld) [#/Vol] Ordered By: Hernandez Lares on 09-04-2022 Platelets (Bld) [#/Vol] 224 10*3/uL 150-450 [facility] Protein Auto test strip (U) [Mass/Vol]Ordered By: Hernandez Lares on 09-04-2022 Protein (U) [Mass/Vol] 100 mg/dL Negative [facility] Protein [Mass/volume] in Ser um or PlasmaOrdered By: Hernandez Lares on 09-04-2022 Protein [Mass/Vol] 6.5 g/dL 6.1-7.9 [facility] RBC Auto (Bld) [#/Vol]Ordere d By: Hernandez Lares on 09-04-2022 RBC (Bld) [#/Vol] 5.09 10*6/uL 3.90-5.60 [facility] Serum or plasma alanine storey otransferase measurement without P-5'-P (enzymatic activiOrdered By: Hernandez Lares on 09-04-2022 ALT No additional P-5'-P [Catalytic activity/Vol] 26 U/L 10-60 [facility] Serum or plasma albumin/glob ulin mass ratioOrdered By: Hernandez Lares on 09-04-2022 Albumin/Globulin [Mass ratio] 1.2 {ratio} [facility] Serum or plasma alkaline alexandro sphatase measurement (enzymatic activity/volume)Ordered By: Hernandez Lares on 09-04-2022 ALP [Catalytic activity/Vol] 85 U/L 32-92 [facility] Serum or plasma anion gap de terminationOrdered By: Hernandez Lares on 09-04-2022 Anion gap [Moles/Vol] 15.6 mmol/L 6.0-15.0 [facility] Serum or plasma calcium angie urement (mass/volume)Ordered By: Hernandez Lares on 09-04-2022 Calcium [Mass/Vol] 8.8 mg/dL 8.2-10.2 [facility] Serum or plasma chloride rocio surement (moles/volume)Ordered By: Hernandez Lares on 09-04-2022 Chloride [Moles/Vol] 101 mmol/L 95-114 [facility] Serum or plasma creatine kin ase MB (CKMB)/total creatine kinase (CK) ratio by calculaOrdered By: Hernandez Lares on 09-04-2022 CK.MB Calc [Catalytic fraction] 0.9 % 0.00-2.50 [facility] Serum or plasma glucose angie urement (mass/volume)Ordered By: Hernandez Lares on 09-04-2022 Glucose [Mass/Vol] 99 mg/dL 70-100 [facility] Comment on above: ADA recommended refe rence rangeRandom Glucose Reference Range is dependent on time and content of last meal. Glucose of more than 200 mg/dL in a nonstressed, ambulatory subject supports the diagnosis of Diabetes Mellitus. Serum or plasma potassium me asurement (moles/volume)Ordered By: Hernandez Lares on 09-04-2022 Potassium [Moles/Vol] 4.0 mmol/L 3.5-5.1 [facility] Serum or plasma sodium measu rement (moles/volume)Ordered By: Hernandez Lares on 09-04-2022 Sodium [Moles/Vol] 138 mmol/L 136-146 [facility] Serum or plasma total biliru bin measurement (mass/volume)Ordered By: Hernandez Lares on 09-04-2022 Bilirubin [Mass/Vol] 0.6 mg/dL 0.3-1.2 [facility] Serum or plasma total carbon dioxide measurement (moles/volume)Ordered By: Hernandez Lares on 09-04-2022 CO2 [Moles/Vol] 25.4 mmol/L 22.0-30.0 [facility] Serum or plasma urea nitroge n measurement (mass/volume)Ordered By: Hernandez Lares on 09-04-2022 Urea nitrogen [Mass/Vol] 13 mg/dL 9-23 [facility] Specific gravity Auto test s trip (U) [Rel density]Ordered By: Hernandez Lares on 09-04-2022 Specific gravity (U) [Rel density] 1.027 1.001-1.030 [facility] Spermatozoa detection in uri ne sediment by light microscopyOrdered By: Hernandez Lares on 09-04-2022 Spermatozoa LM Ql (Urine sed) 3-4 [HPF] 0-2 [facility] Squamous epithelial cells de tection in urine sediment by light microscopyOrdered By: Hernandez Lares on 09-04-2022 Epithelial cells.squamous LM Ql (Urine sed) None seen [HPF] 0-2 [facility] Troponin I.cardiac [Mass/vol ume] in Serum or Plasma by High sensitivity methodOrdered By: Hernandez Lares on 09-04-2022 Troponin I.cardiac High sensitivity method [Mass/Vol] < 3 pg/mL 0-20 [facility] Urine bacteria detection by automated methodOrdered By: Hernandez Lares on 09-04-2022 Bacteria Auto Ql (U) None seen None Seen [facility] Urine clarity by refractomet ry automatedOrdered By: Hernandez Lares on 09-04-2022 Clarity Refractometry automated (U) Clear Clear [facility] Urine glucose measurement by automated test strip (mass/volume)Ordered By: Hernandez Lares on 09-04-2022 Glucose Auto test strip (U) [Mass/Vol] Normal mg/dL Normal [facility] Urine hemoglobin detection b y automated test stripOrdered By: Hernandez Lares on 09-04-2022 Hemoglobin Auto test strip Ql (U) Negative Negative [facility] Urine leukocyte esterase det ection by automated test stripOrdered By: Hernandez Lares on 09-04-2022 Leukocyte esterase Auto test strip Ql (U) Negative Negative [facility] Urobilinogen Auto test strip (U) [Mass/Vol]Ordered By: Hernandez Larse on 09-04-2022 Urobilinogen (U) [Mass/Vol] Normal mg/dL Normal [facility] WBC Auto (Bld) [#/Vol]Ordere d By: Hernandez Lares on 09-04-2022 WBC (Bld) [#/Vol] 8.2 10*3/uL 4.1-10.5 [facility] pH Auto test strip (U)Ordere d By: Hernandez Lares on 09-04-2022 pH (U) 6.0 [pH] 5.0-9.0 [facility] CBC AUTO DIFFon 03-08-2022 BASO # 0.0 103/ul Normal 0.0-0.1 [facility] Comment on above: Performed By: #### C BC #### [facility] [address] [place] [address] Dr. Pablo Blanchard Basophils/100 WBC (Bld) 0.4 % Normal 0.2-2.0 [facility] Comment on above: Performed By: #### C BC #### [facility] [address] [place] [address] Dr. Pablo Blanchard EO # 0.2 103/ul Normal 0.0-0.7 [facility] Comment on above: Performed By: #### C BC #### [facility] [address] [place] [address] Dr. Pablo Blanchard Eosinophils/100 WBC (Bld) 2.5 % Normal 0.9-7.0 [facility] Comment on above: Performed By: #### C BC #### [facility] [address] [place] [address] Dr. Pablo Blanchard Erythrocyte distribution width (RBC) [Ratio] 12.2 % Normal 11.0-15.0 [facility] Comment on above: Performed By: #### C BC #### [facility] [address] [place] [address] Dr. Pablo Blanchard Hematocrit (Bld) [Volume fraction] 49.2 % Normal 42.0-54.0 [facility] Comment on above: Performed By: #### C BC #### [facility] [address] [place] [address] Dr. Pablo Blanchard Hemoglobin (Bld) [Mass/Vol] 16.1 g/dL Normal 14.0-18.0 [facility] Comment on above: Performed By: #### C BC #### [facility] [address] [place] [address] Dr. Pablo Blanchard IG # 0.03 10e3/ul Normal 0.00-0.03 [facility] Comment on above: Performed By: #### C BC #### [facility] [address] [place] [address] Dr. Pablo Blanchard IG % 0.4 % Normal 0.0-0.5 [facility] Comment on above: Performed By: #### C BC #### [facility] [address] [place] [address] Dr. Pablo Blanchard LYMPH # 1.5 103/ul Normal 1.2-3.8 [facility] Comment on above: Performed By: #### C BC #### [facility] [address] [place] [address] Dr. Pablo Blanchard Lymphocytes/100 WBC (Bld) 20.1 % Critically low 20.5-60.0 [facility] Comment on above: Performed By: #### C BC #### [facility] [address] [place] [address] Dr. Pablo Blanchard MANUAL DIFF REQ NO Normal [facility] Comment on above: Performed By: #### C BC #### [facility] [address] [place] [address] Dr. Pablo Blanchard MCH (RBC) [Entitic mass] 30.4 pg Normal 25.9-34.0 [facility] Comment on above: Performed By: #### C BC #### [facility] [address] [place] [address] Dr. Pablo Blanchard MCHC (RBC) [Mass/Vol] 32.7 g/dL Normal 29.9-35.2 [facility] Comment on above: Performed By: #### C BC #### [facility] [address] [place] [address] Dr. Pablo Blanchard MCV (RBC) [Entitic vol] 92.8 fL Normal 80.0-94.0 [facility] Comment on above: Performed By: #### C BC #### [facility] [address] [place] [address] Dr. Pablo Blanchard MONO # 0.6 103/ul Normal 0.3-0.8 [facility] Comment on above: Performed By: #### C BC #### [facility] [address] [place] [address] Dr. Pablo Blanchard Monocytes/100 WBC (Bld) 8.1 % Normal 1.7-12.0 [facility] Comment on above: Performed By: #### C BC #### [facility] [address] [place] [address] Dr. Pablo Blanchard NEUT # 5.1 103/ul Normal 1.4-6.5 [facility] Comment on above: Performed By: #### C BC #### [facility] [address] [place] [address] Dr. Pablo Blanchard Neutrophils/100 WBC (Bld) 68.5 % Normal 43.0-75.0 [facility] Comment on above: Performed By: #### C BC #### [facility] [address] [address] [address] Pablo Blanchard Platelet mean volume (Bld) [Entitic vol] 9.2 fL Critically low 9.5-13.5 [facility] Comment on above: Performed By: #### C BC #### [facility] [address] [address] [address] Pablo Blanchard PLT 231 103/ul Normal 150-450 [facility] Comment on above: Performed By: #### C BC #### [facility] [address] [address] [address] Pablo Blanchard RBC 5.30 106/ul Normal 4.70-6.10 [facility] Comment on above: Performed By: #### C BC #### [facility] [address] [place] [address] Dr. Pablo Blanchard WBC 7.5 103/ul Normal 4.0-11.0 [facility] Comment on above: Performed By: #### C BC #### [facility] [address] [place] [address] Dr. Pablo Blanchard GLYCOHEMOGLOBIN A1Con 2021 ADA RECOMMENDATION SEE BELOW Normal [facility] Comment on above: Result Comment: ADA RECOMMENDED LIMIT 4.0 - 6.0 ADA THERAPEUTIC TARGET < 7.0 ACTION SUGGESTED > 7.0 Performed By: #### A 1C #### [facility] [address] [place] [address] Dr. Pablo Blanchard Glucose [Mass/Vol] 97 mg/dL Normal [facility] Comment on above: Performed By: #### A 1C #### [facility] [address] [place] [address] Dr. Pablo Blanchard HbA1c (Bld) [Mass fraction] 5.0 % Normal 4.5-6.2 [facility] Comment on above: Performed By: #### A 1C #### [facility] [address] [place] [address] Dr. Pablo Blanchard LIPID PROFILEon 03-08-2022 CHOL-HDL RATIO NORM SEE BELOW Normal [facility] Comment on above: Result Comment: 3.3 - 4.4 LOW RISK 4.4 - 7.1 AVERAGE RISK 7.1 - 11.0 MODERATE RISK >11.0 HIGH RISK Performed By: #### L IPID, CMP #### [facility] [address] [address] [address] Pablo Blanchard Cholesterol [Mass/Vol] 205 mg/dL Critically high <=200 [facility] Comment on above: Performed By: #### L IPID, CMP #### [facility] [address] [address] [address] Pablo Blanchard Cholesterol in HDL [Mass/Vol] 40 mg/dL Normal 40-60 [facility] Comment on above: Performed By: #### L IPID, CMP #### [facility] [address] [address] [address] Pablo Blanchard Cholesterol in LDL [Mass/Vol] 150.6 mg/dL Normal [facility] Comment on above: Performed By: #### L IPID, CMP #### [facility] [address] [address] [address] Pablo Blanchard Cholesterol.total/Choles terol in HDL [Mass ratio] 5.1 {ratio} Normal [facility] Comment on above: Performed By: #### L IPID, CMP #### [facility] [address] [address] [address] Pablo Blanchard HDL NORMAL > or = 60 mg/dl - LOW CARDIOVASCULAR RISK <40 mg/dl - HIGH CARDIOVASCULAR RISK Normal [facility] Comment on above: Performed By: #### L IPID, CMP #### [facility] [address] [address] [address] Pablo Blanchard LDL CALC NORMAL SEE BELOW Normal [facility] Comment on above: Result Comment: <100 mg/dl OPTIMAL 100 - 129 mg/dl NEAR OR ABOVE OPTIMAL 130 - 159 mg/dl BORDERLINE HIGH 160 - 189 mg/dl HIGH >190 mg/dl VERY HIGH Performed By: #### L IPID, CMP #### [facility] [address] [address] [address] Pablo Blanchard Triglyceride [Mass/Vol] 72 mg/dL Normal <=150 T [facility] Comment on above: Performed By: #### L IPID, CMP #### [facility] [address] [place] [address] Dr. Pablo Blanchard VLDL CALC 14.4 mg/dL Normal [facility] Comment on above: Performed By: #### L IPID, CMP #### [facility] [address] [place] [address] Dr. Pablo Blanchard PROF 14(COMP METB)on 022 Albumin [Mass/Vol] 3.3 g/dL Critically low 3.4-5.0 Th [facility] Comment on above: Performed By: #### L IPID, CMP #### [facility] [address] [place] [address] Dr. Pablo Blanchard Albumin/Globulin [Mass ratio] 1.0 {ratio} Normal [facility] Comment on above: Performed By: #### L IPID, CMP #### [facility] [address] [place] [address] Dr. Pablo Blanchard ALP [Catalytic activity/Vol] 98 U/L Normal 46-116 [facility] Comment on above: Performed By: #### L IPID, CMP #### [facility] [address] [place] [address] Dr. Pablo Blanchard ALT [Catalytic activity/Vol] 33 U/L Normal 16-63 [facility] Comment on above: Performed By: #### L IPID, CMP #### [facility] [address] [place] [address] Dr. Pablo Blanchard Anion gap [Moles/Vol] 9.4 mmol/L Normal [facility] Comment on above: Performed By: #### L IPID, CMP #### [facility] [address] [place] [address] Dr. Pablo Blanchard AST [Catalytic activity/Vol] 16 U/L Normal 15-37 [facility] Comment on above: Performed By: #### L IPID, CMP #### [facility] [address] [place] [address] Dr. Pablo Blanchard Bilirubin [Mass/Vol] 0.7 mg/dL Normal 0.2-1.0 [facility] Comment on above: Performed By: #### L IPID, CMP #### [facility] [address] [place] [address] Dr. Pablo Blanchard Calcium [Mass/Vol] 8.0 mg/dL Critically low 8.5-10.1 Th e [facility] Comment on above: Performed By: #### L IPID, CMP #### [facility] [address] [place] [address] Dr. Pablo Blanchard Chloride [Moles/Vol] 104 mmol/L Normal 98-107 [facility] Comment on above: Performed By: #### L IPID, CMP #### [facility] [address] [place] [address] Dr. Pablo Blanchard CO2 [Moles/Vol] 30.5 mmol/L Normal 21.0-32.0 [facility] Comment on above: Performed By: #### L IPID, CMP #### [facility] [address] [place] [address] Dr. Pablo Blanchard Creatinine [Mass/Vol] 1.02 mg/dL Normal 0.70-1.30 [facility] Comment on above: Performed By: #### L IPID, CMP #### [facility] [address] [place] [address] Dr. Pablo Blanchard EGFR-AF SLOVAK >60 Normal >=60 [facility] Comment on above: Performed By: #### L IPID, CMP #### [facility] [address] [place] [address] Dr. Pablo Blanchard EGFR-NON AF SLOVAK >60 Normal >=60 [facility] Comment on above: Performed By: #### L IPID, CMP #### [facility] [address] [place] [address] Dr. Pablo Blanchard Globulin (S) [Mass/Vol] 3.4 g/dL Normal T [facility] Comment on above: Performed By: #### L IPID, CMP #### [facility] [address] [place] [address] Dr. Pablo Blanchard Glucose [Mass/Vol] 108 mg/dL Critically high 74-106 T [facility] Comment on above: Performed By: #### L IPID, CMP #### [facility] [address] [place] [address] Dr. Pablo Blanchard Potassium [Moles/Vol] 3.9 mmol/L Normal 3.5-5.1 [facility] Comment on above: Performed By: #### L IPID, CMP #### [facility] [address] [place] [address] Dr. Pablo Blanchard Protein [Mass/Vol] 6.7 g/dL Normal 6.4-8.2 [facility] Comment on above: Performed By: #### L IPID, CMP #### [facility] [address] [place] [address] Dr. Pablo Blanchard Sodium [Moles/Vol] 140 mmol/L Normal 136-145 [facility] Comment on above: Performed By: #### L IPID, CMP #### [facility] [address] [place] [address] Dr. Pablo Blanchard Urea nitrogen [Mass/Vol] 11.0 mg/dL Normal 7.0-18.0 [facility] Comment on above: Performed By: #### L IPID, CMP #### [facility] [address] [place] [address] Dr. Pablo Blanchard Urea nitrogen/Creatinine [Mass ratio] 10.8 mg/mg Normal [facility] Comment on above: Performed By: #### L IPID, CMP #### [facility] [address] [place] [address] Dr. Pablo Blanchard UA RANDOM W/MICROSCOPICon BACTERIA NONE SEEN Normal NONE SEEN The [facility] Comment on above: Performed By: #### U AMIC #### [facility] [address] [place] [address] Dr. Pablo Blanchard Bilirubin Ql (U) Negative Normal NEGATIVE [facility] Comment on above: Performed By: #### U AMIC #### [facility] [address] [place] [address] Dr. Pablo Blanchard CAST NONE SEEN Normal NONE SEEN [facility] Comment on above: Performed By: #### U AMIC #### [facility] [address] [place] [address] Dr. Pablo Blanchard Clarity (U) CLEAR Normal CLEAR The [facility] Comment on above: Performed By: #### U AMIC #### [facility] [address] [place] [address] Dr. Pablo Blanchard Color (U) YELLOW Normal YELLOW The [facility] Comment on above: Performed By: #### U AMIC #### [facility] [address] [place] [address] Dr. Pablo Blanchard Crystals LM Nom (Urine sed) NONE SEEN Normal NONE SEEN [facility] Comment on above: Performed By: #### U AMIC #### [facility] [address] [place] [address] Dr. Pablo Blanchard Epithelial cells LM Ql (Urine sed) FEW Abnormal NONE SEEN /RARE The [facility] Comment on above: Performed By: #### U AMIC #### [facility] [address] [place] [address] Dr. Pablo Blanchard Glucose Ql (U) Negative Normal NEGATIVE The [facility] Comment on above: Performed By: #### U AMIC #### [facility] [address] [place] [address] Dr. Pablo Blanchard Hemoglobin Ql (U) Negative Normal NEGATIVE The [facility] Comment on above: Performed By: #### U AMIC #### [facility] [address] [address] [address] Pablo Blanchard Ketones Ql (U) Negative Normal NEGATIVE The [facility] Comment on above: Performed By: #### U AMIC #### [facility] [address] [place] [address] Dr. Pablo Blanchard LEUKOCYTES Negative Normal NEGATIVE The [facility] Comment on above: Performed By: #### U AMIC #### [facility] [address] [place] [address] Dr. Pablo Blanchard MUCOUS NONE SEEN Normal NONE SEEN [facility] Comment on above: Performed By: #### U AMIC #### [facility] [address] [place] [address] Dr. Pablo Blanchard Nitrite Ql (U) Negative Normal NEGATIVE The [facility] Comment on above: Performed By: #### U AMIC #### [facility] [address] [place] [address] Dr. Pablo Blanchard pH (U) 6.0 [pH] Normal 5-9 [facility] Comment on above: Performed By: #### U AMIC #### [facility] [address] [place] [address] Dr. Pablo Blanchard RBC 0-2 Normal 0-2 [facility] Comment on above: Performed By: #### U AMIC #### [facility] [address] [place] [address] Dr. Pablo Blanchard SPEC GRAVITY >=1.030 Abnormal 1.005-<=1.02 5 [facility] Comment on above: Performed By: #### U AMIC #### [facility] [address] [place] [address] Dr. Pablo Blanchard UA PROTEIN Negative Normal NEGATIVE/ TRACE The [facility] Comment on above: Performed By: #### U AMIC #### [facility] [address] [place] [address] Dr. Pablo Blanchard Urobilinogen Qn (U) 1.0 {Kuldeep'U}/dL Normal 0.2 - 1. 0 [facility] Comment on above: Performed By: #### U AMIC #### [facility] [address] [place] [address] Dr. Pablo Blanchard WBC NONE SEEN Normal NONE SEEN The [facility] Comment on above: Performed By: #### U AMIC #### [facility] [address] [place] [address] Dr. Pablo Blanchard [facility]on 10-14 SARS-CoV-2 (COVID-19) RNA NANCIE+probe Ql (Unsp spec) Not detected Normal NOT DETECTED The [facility] Comment on above: Result Comment: This test is not yet approved or cleared by the [place] FDA. When there are no FDA-approved or cleared tests available, and other criteria are met, FDA can make tests available under an emergency access mechanism called an Emergency Use Authorization (EUA). The EUA for this test is supported by the Research/Program Director of Health and Human Service's (HHS's) declaration [...] SARS-CoV-2. Performed By: #### C VDTBH #### [facility] [address] [place] [address] Dr. Pablo Blanchard [facility] 02-04-2018 Creatine kinase (CK) 57 Int._Unit/L Normal 14-261 [facility] Comment on above: Performed By: #### 2 [id number], [id number] ####[facility] [address] [place] [address] CKMBon 02-04-2018 CREATINE KINASE.MB:CCNC:PT:SER/PL :QN:EIA 0.5 ng/mL Normal 0.3-4.9 [facility] Comment on above: Performed By: #### 2 [id number], [id number] ####[facility] [address] [place] [address] CREATINE KINASE.MB:CCNC:PT:SER/PL :QN:EIA 0.8 ng/mL Normal 0.3-4.9 [facility] Comment on above: Performed By: #### 2 [id number], [id number], [id number] ####[facility] [address] [place] [address] CREATINE KINASE.MB:CCNC:PT:SER/PL :QN:EIA 0.7 ng/mL Normal 0.3-4.9 [facility] Comment on above: Performed By: #### 2 [id number], [id number], [id number] ####[address] [place] [address] CMPon 02-04-2018 Albumin 1.2 g/dL Normal 1.1-2.2 [facility] Comment on above: Performed By: #### 2 [id number], [id number] ####[address] [address] Albumin 3.6 g/dL Normal 3.3-5.0 [facility] Comment on above: Performed By: #### 2 [id number], [id number] ####[address] [address] Alkaline phosphatase (ALP) 71 Int._Unit/L Normal 21-98 [facility] Comment on above: Performed By: #### 2 115944, [id number] ####[address] [address] ALT Without P-5'-P enzyme act/vol 29 Int._Unit/L Normal 6-46 [facility] Comment on above: Performed By: #### 2 176241, [id number] ####[address] [address] Aspartate aminotransferase (AST) 29 Int._Unit/L Normal 5-43 [facility] Comment on above: Performed By: #### 2 562683, [id number] ####[address] [address] Bilirubin (total) 0.5 mg/dL Normal 0.0-1.1 [facility] Comment on above: Performed By: #### 2 673861, [id number] ####[address] [place] [address] BUN/Creatinine Ratio 16 No Units Normal 10-20 [facility] Comment on above: Performed By: #### 2 175685, [id number] ####[address] [place] [address] Creatinine 1.0 mg/dL Normal 0.5-1.3 [facility] Comment on above: Performed By: #### 2 813988, [id number] ####[facility] [address] [place] [address] Globulin 2.9 g/dL Normal 1.4-4.0 [facility] Comment on above: Performed By: #### 2 554413, [id number] ####[facility] [address] [place] [address] Protein 6.5 g/dL Normal 6.0-7.8 [facility] Comment on above: Performed By: #### 2 232455, [id number] ####[facility] [address] [place] [address] Urea nitrogen 16 mg/dL Normal 5-21 [facility] Comment on above: Performed By: #### 2 204965, [id number] ####[facility] [address] [place] [address] Anion gap 14 mmol/L Normal 6-16 [facility] Comment on above: Performed By: #### 2 706165, [id number] ####[facility] [address] [place] [address] Calcium 8.8 mg/dL Low 8.9-11.1 [facility] Comment on above: Performed By: #### 2 762609, [id number] ####[facility] [address] [place] [address] Chloride 106 mmol/L Normal 101-111 [facility] Comment on above: Performed By: #### 2 473025, [id number] ####[facility] [address] [place] [address] CO2 23 mmol/L Normal 21-31 [facility] Comment on above: Performed By: #### 2 232607, [id number] ####[facility] [address] [place] [address] Glucose mass conc 86 mg/dL Normal 55-199 [facility] Comment on above: Result Comment: If t his glucose result represents a fasting glucose, interpretation should refer to the following reference range: 55-99 mg/dL Performed By: #### 2 474507, [id number] ####[facility] [address] [place] [address] Potassium molar conc 3.6 mmol/L Normal 3.5-5.3 [facility] Comment on above: Performed By: #### 2 751204, [id number] ####[facility] [address] [place] [address] Sodium 139 mmol/L Normal 135-145 [facility] Comment on above: Performed By: #### 2 699286, [id number] ####[facility] [address] [place] [address] Myoglobinon 02-04-2018 Myoglobin 18 ng/mL Normal <=69 [facility] Comment on above: Performed By: #### 2 419759, 6995572, [id number], 9176245, [id number], [id number] ####[facility] [address] [place] [address] Myoglobin 42 ng/mL Normal <=69 [facility] Comment on above: Performed By: #### 2 649471, 8972552, [id number] ####[facility] [address] [place] [address] Myoglobin 17 ng/mL Normal <=69 [facility] Comment on above: Performed By: #### 2 115927, 2755051, [id number] ####[facility] [address] [place] [address] T4 Totalon 02-04-2018 Thyroxine (T4) 9.1 microgram/dL Normal 4.6-9.1 [facility] Comment on above: Performed By: #### 2 061534, [id number] ####[facility] [address] [place] [address] TSHon 02-04-2018 Thyroid stimulating hormone (TSH) 5.61 mcIU/mL High 0.34-5.60 [facility] Comment on above: Performed By: #### 2 695749, [id number] ####[facility] [address] [place] [address] Troponinon 02-04-2018 Troponin I.cardiac mass conc ng/mL Normal <=0.03 [facility] Comment on above: Result Comment: New Troponin Assay 11/26/13ROC [place] Cutoff value > or = 0.03 ng/mL in conjunction with clinical conditions of myocardial infarction.([email or web address]) Performed By: #### 2 175330, 7226000, [id number], 6574362, [id number], [id number] ####[facility] [address] [place] [address] Troponin I.cardiac mass conc ng/mL Normal <=0.03 [facility] Comment on above: Result Comment: New Troponin Assay 11/26/13[place]OC [place] Cutoff value > or = 0.03 ng/mL in conjunction with clinical conditions of myocardial infarction.([email or web address]) Performed By: #### 2 810848, 1251029, [id number] ####[facility] [address] [place] [address] Troponin I.cardiac mass conc ng/mL Normal <=0.03 [facility] Comment on above: Result Comment: New Troponin Assay 11/26/13ROC [place] Cutoff value > or = 0.03 ng/mL in conjunction with clinical conditions of myocardial infarction.([email or web address]) Performed By: #### 2 341499, 0947176, [id number] ####[facility] [address] [place] [address] eGFRon 02-04-2018 eGFR (black) mL/min/{1.73_m2} Normal >=59 [facility] Comment on above: Order Comment: Order added by Discern Expert. Result Comment: eGFR is race adjusted. AA=. Performed By: #### 2 105723, [id number] ####[facility] [address] [place] [address] eGFR (non-black) mL/min/{1.73_m2} Normal >=59 [facility] Comment on above: Order Comment: Order added by Discern Expert. Result Comment: [employer] sofi kidney disease could be indicated at eGFR's of less than 60 mL/min/1.73m2. Kidney failure is indicated at less than 15 mL/min/1.73m2. Performed By: #### 2 473759, [id number] ####[facility] [address] [place] [address] Vital Signs Date Time Vital Sign Value Performing Clinician Facility 08-19-2024 16:21-0500 Body height 189.2 cm Lida Suh MD Work Phone: [facility] 08-19-2024 16:21-0500 Body mass index (BMI) [Ratio] 31.67 kg/m2 Lida Suh MD Work Phone: [facility] 08-19-2024 16:21-0500 Body weight 113.4 kg Lida Suh MD Work Phone: [facility] 08-19-2024 16:21-0500 Diastolic blood pressure 75 mm[Hg] Lida Suh MD Work Phone: [facility] 08-19-2024 16:21-0500 Heart rate 75 /min Lida Suh MD Work Phone: [facility] 08-19-2024 16:21-0500 Systolic blood pressure 98 mm[Hg] Lida Suh MD Work Phone: [facility] 07-30-2024 08:21-0500 Body height 190.5 cm Brooklynn Yeager NP Work Phone: [facility] 07-30-2024 08:21-0500 Body mass index (BMI) [Ratio] 31.8 kg/m2 Brooklynn Yeager NP Work Phone: [facility] 07-30-2024 08:21-0500 Body temperature 97.81 [degF] Brooklynn Aichholz OPERATIONS RESEARCH SCIENTIST Work Phone: [facility] 07-30-2024 08:21-0500 Body weight 115.39 kg Brooklynn Aichholz OPERATIONS RESEARCH SCIENTIST Work Phone: [facility] 07-30-2024 08:21-0500 Diastolic blood pressure 72 mm[Hg] Brooklynn Aichholz OPERATIONS RESEARCH SCIENTIST Work Phone: [facility] 07-30-2024 08:21-0500 Heart rate 88 /min Brooklynn Aichholz OPERATIONS RESEARCH SCIENTIST Work Phone: [facility] 07-30-2024 08:21-0500 Respiratory rate 20 /min Brooklynn Aichholz OPERATIONS RESEARCH SCIENTIST Work Phone: [facility] 07-30-2024 08:21-0500 SaO2% (BldA) [Mass fraction] 93 % Brooklynn Aichholz OPERATIONS RESEARCH SCIENTIST Work Phone: [facility] 07-30-2024 08:21-0500 Systolic blood pressure 108 mm[Hg] Brooklynn Aichholz OPERATIONS RESEARCH SCIENTIST Work Phone: [facility] 03-30-2024 08:08-0400 Body height 186.7 cm Brooklynn Aichholz OPERATIONS RESEARCH SCIENTIST Work Phone: [facility] 03-30-2024 08:08-0400 Body mass index (BMI) [Ratio] 32.82 kg/m2 Brooklynn Aichholz OPERATIONS RESEARCH SCIENTIST Work Phone: [facility] 03-30-2024 08:08-0400 Body temperature 98.2 [degF] Brooklynn Aichholz OPERATIONS RESEARCH SCIENTIST Work Phone: [facility] 03-30-2024 08:08-0400 Body weight 114.4 kg Brooklynn Aichholz OPERATIONS RESEARCH SCIENTIST Work Phone: [facility] 03-30-2024 08:08-0400 Diastolic blood pressure 80 mm[Hg] Brooklynn Aichholz OPERATIONS RESEARCH SCIENTIST Work Phone: [facility] 03-30-2024 08:08-0400 Heart rate 79 /min Brooklynn Yeager OPERATIONS RESEARCH SCIENTIST Work Phone: [facility] 03-30-2024 08:08-0400 Respiratory rate 18 /min Brooklynn Yeager OPERATIONS RESEARCH SCIENTIST Work Phone: [facility] 03-30-2024 08:08-0400 SaO2% (BldA) [Mass fraction] 97 % Brooklynn Yeager OPERATIONS RESEARCH SCIENTIST Work Phone: [facility] 03-30-2024 08:08-0400 Systolic blood pressure 110 mm[Hg] Brooklynn Yeager OPERATIONS RESEARCH SCIENTIST Work Phone: [facility] 03-17-2024 10:11-0400 Body height 189.2 cm Pm [address] [facility] 03-17-2024 10:11-0400 Body mass index (BMI) [Ratio] 31.67 kg/m2 Pm [address] [facility] 03-17-2024 10:11-0400 Body weight 113.4 kg Pmh [address] [facility] 01-29-2024 16:33-0400 Body height 185.4 cm Lida Suh MD Work Phone: [facility] 01-29-2024 16:33-0400 Body mass index (BMI) [Ratio] 33.64 kg/m2 Lida Suh MD Work Phone: [facility] 01-29-2024 16:33-0400 Body weight 115.67 kg Lida Suh MD Work Phone: [facility] 01-29-2024 16:33-0400 Diastolic blood pressure 68 mm[Hg] Lida Suh MD Work Phone: [facility] 01-29-2024 16:33-0400 Heart rate 73 /min Lida Suh MD Work Phone: [facility] 01-29-2024 16:33-0400 Systolic blood pressure 94 mm[Hg] Lida Suh MD Work Phone: [facility] 11-13-2023 11:37-0400 Body height 188 cm Lida Suh MD Work Phone: [facility] 11-13-2023 11:37-0400 Body mass index (BMI) [Ratio] 31.46 kg/m2 Lida Suh MD Work Phone: [facility] 11-13-2023 11:37-0400 Body weight 111.13 kg Lida Suh MD Work Phone: [facility] 11-13-2023 11:37-0400 Diastolic blood pressure 72 mm[Hg] Lida Suh MD Work Phone: [facility] 11-13-2023 11:37-0400 Heart rate 69 /min Lida Suh MD Work Phone: [facility] 11-13-2023 11:37-0400 Systolic blood pressure 106 mm[Hg] Lida Suh MD Work Phone: [facility] 10-17-2023 09:02-0400 Body height 188 cm Pmh [address] [facility] 10-17-2023 09:02-0400 Body mass index (BMI) [Ratio] 32.1 kg/m2 Pmh [address] [facility] 10-17-2023 09:02-0400 Body weight 113.4 kg Pmh [address] [facility] 09-04-2023 14:11-0500 Body height 188 cm Lida Suh MD Work Phone: [facility] 09-04-2023 14:11-0500 Body mass index (BMI) [Ratio] 31.46 kg/m2 Lida Suh MD Work Phone: [facility] 09-04-2023 14:11-0500 Body weight 111.13 kg Lida Suh MD Work Phone: [facility] 09-04-2023 14:11-0500 Diastolic blood pressure 75 mm[Hg] Lida Suh MD Work Phone: [facility] 09-04-2023 14:11-0500 Heart rate 76 /min Lida Suh MD Work Phone: [facility] 09-04-2023 14:11-0500 Systolic blood pressure 116 mm[Hg] Lida Suh MD Work Phone: [facility] 10-22-2022 15:54-0400 Diastolic blood pressure 46 mm[Hg] Brooklynn Aichholz Work Phone: [facility] 10-22-2022 15:54-0400 Heart rate 69 /min Brooklynn Aichholz Work Phone: [facility] 10-22-2022 15:54-0400 Respiratory rate 16 /min Brooklynn Aichholz Work Phone: [facility] 10-22-2022 15:54-0400 SaO2% (BldA) [Mass fraction] 99 % Brooklynn Aichholz Work Phone: [facility] 10-22-2022 15:54-0400 Systolic blood pressure 97 mm[Hg] Brooklynn Aichholz Work Phone: [facility] 10-22-2022 14:07-0400 Body height 187.96 cm Brooklynn Aichholz Work Phone: [facility] 10-22-2022 14:07-0400 Body temperature 97.2 [degF] Brooklynn Aichholz Work Phone: [facility] 10-22-2022 14:07-0400 Body weight 113.39 kg Brooklynn Aichholz Work Phone: [facility] 09-04-2022 23:07-0500 Heart rate 73 /min Brooklynn Aichholz Work Phone: [facility] 09-04-2022 23:07-0500 Respiratory rate 18 /min Brooklynn Aichholz Work Phone: [facility] 09-04-2022 23:07-0500 SaO2% (BldA) [Mass fraction] 99 % Brooklynn Aichholz Work Phone: [facility] 09-04-2022 22:55-0500 Body temperature 97.7 [degF] Brooklynn Aichholz Work Phone: [facility] 09-04-2022 22:55-0500 Diastolic blood pressure 84 mm[Hg] Brooklynn Aichholz Work Phone: [facility] 09-04-2022 22:55-0500 Systolic blood pressure 123 mm[Hg] Brooklynn Aichholz Work Phone: [facility] 09-04-2022 22:11-0500 Body height 189.23 cm Brooklynn Aichholz Work Phone: [facility] 09-04-2022 22:11-0500 Body weight 117.4 kg Brooklynn Aichholz Work Phone: [facility] Encounters Encounter Date Encounter Type Care Provider Facility Start: 03-04-2025 End: 03-04-2025 Refill Brooklynn Yeager OPERATIONS RESEARCH SCIENTIST Work Phone: [facility] Comment on above: Vitamin D deficiency Start: 12-30-2024 End: 12-30-2024 Telephone encounter Lida Suh MD Work Phone: [facility] Start: 12-30-2024 End: 12-30-2024 Evaluation and management of inpatient LIDA SU[facility] Start: 12-14-2024 End: 12-16-2024 Orders Only Lida Suh MD Work Phone: [facility] Comment on above: Malignant neoplasm o f overlapping sites of bladder ([facility]) (Primary Dx) Start: 12-11-2024 End: 12-15-2024 Telephone encounter Carol Robert CNA [facility] Start: 12-10-2024 End: 12-10-2024 Clinisync Result Encounter Brooklynn Yeager OPERATIONS RESEARCH SCIENTIST Work Phone: [facility] Unsolicited Start: 12-10-2024 End: 12-10-2024 Clinisync Result Encounter Brooklynn Yeager OPERATIONS RESEARCH SCIENTIST Work Phone: [facility] Unsolicited Start: 10-13-2024 End: 10-13-2024 Orders Only Brooklynn Yeager OPERATIONS RESEARCH SCIENTIST Work Phone: [facility] Comment on above: Vitamin D deficiency (Primary Dx) Start: 10-12-2024 End: 10-12-2024 Clinisync Result Encounter Brooklynn Yeager OPERATIONS RESEARCH SCIENTIST Work Phone: [facility] Unsolicited Start: 10-12-2024 End: 10-12-2024 Clinisync Result Encounter Brooklynn Yeager OPERATIONS RESEARCH SCIENTIST Work Phone: [facility] Unsolicited Start: 10-12-2024 End: 10-12-2024 Refill Brooklynn Yeager OPERATIONS RESEARCH SCIENTIST Work Phone: [facility] Comment on above: Vitamin D deficiency (Primary Dx) Start: 10-05-2024 End: 10-05-2024 ambulatory BROOKLYNN YEAGER Not Available Start: 09-16-2024 End: 09-16-2024 Telephone encounter [facility] Start: 09-11-2024 End: 09-14-2024 Clinisync Result Encounter Generic External Data Provider [facility] Unsolicited Start: 09-11-2024 End: 09-14-2024 Clinisync Result Encounter Generic External Data Provider [facility] Unsolicited Start: 08-19-2024 End: 08-19-2024 Office outpatient visit 15 minutes Lida Suh MD Work Phone: [facility] Comment on above: Elevated PSA (Primar y Dx); Malignant neoplasm of overlapping sites of bladder ([facility]) Start: 08-19-2024 End: 08-19-2024 ambulatory LIDA G [facility] Start: 08-18-2024 End: 08-18-2024 Clinisync Result Encounter Brooklynn Eaglegavin OPERATIONS RESEARCH SCIENTIST Work Phone: [facility] External [facility] Unsolicited Start: 08-18-2024 End: 08-18-2024 Clinisync Result Encounter Brooklynn Carrasquillojohnny OPERATIONS RESEARCH SCIENTIST Work Phone: [facility] Unsolicited Start: 08-18-2024 End: 08-18-2024 Refill Brooklynn Eaglegavin OPERATIONS RESEARCH SCIENTIST Work Phone: [facility] Comment on above: Vitamin D deficiency (Primary Dx) Start: 08-14-2024 End: 08-14-2024 Orders Only Brooklynn Shobha OPERATIONS RESEARCH SCIENTIST Work Phone: [facility] Comment on above: Hypocalcemia (Primar y Dx); Hyperglycemia Start: 08-13-2024 End: 08-13-2024 Clinisync Result Encounter Brooklynn Eaglegavin OPERATIONS RESEARCH SCIENTIST Work Phone: [facility] Unsolicited Start: 08-13-2024 End: 08-13-2024 Clinisync Result Encounter Brooklynn Eaglegavin OPERATIONS RESEARCH SCIENTIST Work Phone: [facility] Unsolicited Start: 07-30-2024 End: 07-30-2024 Bamboo flowsheet Brooklynn Eagledaltonz OPERATIONS RESEARCH SCIENTIST Work Phone: [facility] Start: 07-30-2024 End: 07-30-2024 Bamboo flowsheet Brooklynnjune Eagledaltonz OPERATIONS RESEARCH SCIENTIST Work Phone: [facility] Start: 07-30-2024 End: 07-30-2024 Office outpatient visit 25 minutes Brooklynn Shobha OPERATIONS RESEARCH SCIENTIST Work Phone: [facility] Comment on above: Bipolar disorder, cu rrent episode mixed, mild (CMS/HCC) (Primary Dx); Malignant neoplasm of overlapping sites of bladder (CMS/HCC); Obesity (BMI 30-39.9); Mixed hyperlipidemia (CMS/HCC); Tobacco user; Bipolar affective disorder, remission status unspecified (CMS/HCC) Start: 07-30-2024 End: 07-30-2024 ambulatory BROOKLYNN AICHHOLZ Not Available Start: 07-20-2024 End: 07-20-2024 Refill Brooklynn Aichholz OPERATIONS RESEARCH SCIENTIST Work Phone: [facility] Comment on above: Mixed hyperlipidemia (CMS/HCC); Bipolar affective disorder, remission status unspecified (CMS/HCC) Start: 07-02-2024 End: 07-02-2024 Refill Brooklynn Aichholz OPERATIONS RESEARCH SCIENTIST Work Phone: [facility] Comment on above: COVID (Primary Dx) Start: 06-17-2024 End: 06-17-2024 Telephone encounter Lida Suh MD Work Phone: [facility] Start: 06-17-2024 End: 06-17-2024 Evaluation and management of inpatient LIDA SUH [facility] Start: 06-16-2024 End: 06-16-2024 [facility] Start: 05-22-2024 End: 05-22-2024 Orders Only Lida Suh MD Work Phone: [facility] Comment on above: Malignant neoplasm o f overlapping sites of bladder ([facility]) (Primary Dx) Start: 04-15-2024 End: 04-15-2024 Refill Brooklynn Wandahholz OPERATIONS RESEARCH SCIENTIST Work Phone: [facility] Comment on above: Mixed hyperlipidemia (CMS/HCC); Bipolar affective disorder, remission status unspecified ([facility]) Start: 03-30-2024 End: 03-30-2024 Bamboo flowsheet Brooklynn Aichholz OPERATIONS RESEARCH SCIENTIST Work Phone: [facility] Start: 03-30-2024 End: 03-30-2024 Bamboo flowsheet Brooklynn Aichholz OPERATIONS RESEARCH SCIENTIST Work Phone: [facility] Start: 03-30-2024 End: 03-30-2024 Office outpatient visit 25 minutes Brooklynn Wandahholz OPERATIONS RESEARCH SCIENTIST Work Phone: [facility] Comment on above: Bipolar affective di sorder, remission status unspecified (CMS/HCC) (Primary Dx); Malignant neoplasm of overlapping sites of bladder (CMS/HCC); Tobacco user; Lump of skin; Contusion of scalp, initial encounter; Mixed hyperlipidemia (CMS/HCC) Start: 03-30-2024 End: 03-30-2024 ambulatory BROOKLYNN YEAGER Not Available Start: 03-18-2024 End: 03-18-2024 Telephone encounter Lida Suh MD Work Phone: [facility] Start: 03-18-2024 End: 03-18-2024 Evaluation and management of inpatient [facility] Start: 03-17-2024 End: 03-17-2024 ambulatory [facility] Pat Phone Call Provider 1 [facility] - Pre Admit Start: 03-09-2024 End: 03-09-2024 ambulatory [facility] Start: 01-29-2024 End: 01-29-2024 Office outpatient visit 15 minutes Lida Suh MD Work Phone: [facility] Comment on above: Urinary incontinence , unspecified type (Primary Dx); Elevated PSA; Malignant neoplasm of overlapping sites of bladder ([facility]) Start: 01-29-2024 End: 01-29-2024 ambulatory LIDA [facility] Start: 01-21-2024 End: 01-21-2024 Telephone encounter Darcie GARCIA [facility] Start: 12-19-2023 End: 12-19-2023 Orders Only Lida Suh MD Work Phone: [facility] Start: 12-02-2023 End: 12-02-2023 ambulatory BROOKLYNN YEAGER [facility] Start: 12-01-2023 End: 12-02-2023 Evaluation and management of inpatient JOSE GARIBAY [facility] Start: 12-01-2023 End: 12-01-2023 Emergency department patient visit Brooklynn Yeager Facility:[facility] Start: 11-29-2023 End: 11-29-2023 Emergency department [facility] Start: 11-14-2023 End: 11-14-2023 [facility] Start: 11-13-2023 End: 11-13-2023 Telephone encounter Lida Suh MD Work Phone: [facility] Start: 11-13-2023 End: 11-13-2023 Office outpatient visit 25 minutes Lida Suh MD Work Phone: [facility] Comment on above: Malignant neoplasm o f overlapping sites of bladder (CMS-HCC) (Primary Dx); Elevated PSA Start: 11-13-2023 End: 11-13-2023 [facility] Start: 11-07-2023 End: 11-13-2023 Orders Only Lida Suh MD Work Phone: [facility] Comment on above: Hematuria, microscop ic (Primary Dx) Start: 10-31-2023 End: 10-31-2023 Telephone encounter Guanako Martines CMA [facility] Start: 10-30-2023 End: 10-30-2023 Telephone encounter Lida Suh MD Work Phone: [facility] Start: 10-17-2023 End: 10-17-2023 Patient encounter procedure [facility] Pre-Admission Testing 1 [facility] - Pre Admit Start: 09-04-2023 Telephone encounter Lida Suh MD Work Phone: [facility] Start: 09-04-2023 End: 09-04-2023 Office consultation new/estab patient 60 min Lida Suh MD Work Phone: [facility] Comment on above: Elevated PSA (Primar y Dx); Hematuria, microscopic Start: 09-04-2023 End: 09-04-2023 ambulatory [facility] Start: 08-27-2023 Refill Brooklynn Shobha OPERATIONS RESEARCH SCIENTIST Work Phone: [facility] Comment on above: Mixed hyperlipidemia (CMS/HCC) (Primary Dx) Start: 08-21-2023 Telephone encounter Brooklynn Gabbie martinez OPERATIONS RESEARCH SCIENTIST Work Phone: [facility] Start: 10-22-2022 End: 10-22-2022 Admission to same day surgery center Brooklynn Shobha Work Phone: [facility] Start: 10-22-2022 End: 10-22-2022 ambulatory Brooklynn Joshi Wandasavagegavin Work Phone: [facility] Work Phone: Start: 10-03-2022 End: 10-03-2022 ambulatory Brooklynn Joshi Wandasavagedaltonjohnny Work Phone: [facility] Work Phone: Start: 10-03-2022 End: 10-03-2022 Departed Referred Brooklynn Wandasavagegavin Work Phone: [facility] Work Phone: Start: 09-18-2022 End: 09-19-2022 ambulatory [employer] BROOKLYNN WANDASavageDALTONZ Facility:[facility]1 Start: 09-04-2022 End: 09-05-2022 Emergency department patient visit Brooklynn Wandasavagedaltonz Work Phone: [facility] Work Phone: Start: 03-08-2022 End: 03-09-2022 ambulatory [employer] BROOKLYNN AICHHOLZ Facility:[facility] Start: 11-03-2021 End: 11-03-2021 ambulatory [employer] BROOKLYNN AICHHOLZ Facility:[facility] Start: 02-04-2018 Patient encounter KINJAL Gresham [facility]y:[facility] Start: 02-03-2018 Patient encounter KINJAL Gresham ity:[facility] Procedures Date Procedure Procedure Detail Performing Clinician Start: 12-10-2024 TBH VITAMIN D 25 [place] Lis june Shobha OPERATIONS RESEARCH SCIENTIST Work Phone: Start: 10-12-2024 ALL BASIC METABOLIC PANEL Brooklynn Shobha OPERATIONS RESEARCH SCIENTIST Work Phone: Start: 09-11-2024 UPPER RESPIRATORY CULTURE Generic External Data Provider Start: 08-18-2024 MLR HEMOGLOBIN A1C Brooklynn Shobha OPERATIONS RESEARCH SCIENTIST Work Phone: Start: 08-13-2024 ALL LIPID PROFILE (FASTING) Brooklynn Shobha OPERATIONS RESEARCH SCIENTIST Work Phone: Start: 08-13-2024 ALL THYROID STIM HORMONE Brooklynn Shobha OPERATIONS RESEARCH SCIENTIST Work Phone: Start: 08-13-2024 CCF CMP (CMP) (FOR R EMOTE [facility] USE) Brooklynn Shobha OPERATIONS RESEARCH SCIENTIST Work Phone: Start: 01-29-2024 MEASURE POST VOID RESIDUAL Lida Suh MD Work Phone: Start: 12-01-2023 Adult depression scr eening assessment Lida Suh MD Work Phone: Start: 11-13-2023 Follow-up visit Follow-up LIDA SUH Start: 10-22-2022 Excision of cyst Brooklynn June ruvalcaba Work Phone: Start: 10-03-2022 Colonoscopy Brooklynn Gabbie martinez OPERATIONS RESEARCH SCIENTIST Work Phone: Start: 09-04-2022 Plain X-ray abdomen Viv orourke Shobha Work Phone: Start: 09-04-2022 SARS-CoV-2, Influenz a & RSV (PCR) Brooklynn Shobha Work Phone: Start: 03-08-2022 PSA screening [employer] BROOKLYNN YEAGER Comment on above: Performed By: #### P [facility] #### [facility] [address] [place] [address] Dr. Pablo Blanchard Plan of Treatment Date Care Activity Detail Author Start: 10-03-2032 Screening for malign ant neoplasm of colon [facility] Start: 08-23-2025 End: 08-23-2025 Patient encounter procedure 08/23/2025 1:45 PM EST Office Visit [facility] [address] [place] [address] [place] [facility] [address] Lida Suh MD [facility] [place], [place] [id number] [facility] Start: 08-19-2025 Adult BMI Screening Adult BMI Screen ing [facility] Start: 08-19-2025 End: 07-20-2026 Prostatic specific antigen, diagnostic Prostatic specific antigen, diagnostic Lab Routine Elevated PSA Expected: 08/19/2025 (Approximate), Expires: 07/20/2026 [facility] Work Phone: Comment on above: Expected: 08/19/2025 (Approximate), Expires: 07/20/2026 Start: 08-19-2025 Tobacco Screening Tobacco Screening [facility] Start: 06-17-2025 Tobacco Screening Tobacco Screening [facility] Start: 04-28-2025 End: 04-28-2025 Patient encounter procedure 04/28/2025 8:40 AM EDT Office Visit [facility] [address] [place] [address] Brooklynn Yeager NP [address] [place] [address] [facility] Start: 03-18-2025 Tobacco Screening Tobacco Screening [facility] Start: 03-17-2025 Adult BMI Screening Adult BMI Screen ing [facility] Start: 03-15-2025 Influenza vaccination Influenza Vacc ine [facility] Start: 01-28-2025 Adult BMI Screening Adult BMI Screen ing [facility] Start: 01-28-2025 Tobacco Screening Tobacco Screening [facility] Start: 12-30-2024 End: 12-30-2024 Admission to same day surgery center 12/30/2024 8:00 AM EDT - 12/30/2024 8:30 AM EDT Surgery [facility] [address] [place] [phone] Lida Suh MD [address] [place] [id number] CYSTOSCOPY [80593 (CPT )] [facility] Comment on above: CYSTOSCOPY [32405 (C PT )] Start: 12-30-2024 End: 12-30-2024 Cystourethroscopy [facility] Start: 12-30-2024 Subsequent hospital visit by physician 12/30/2024 8:00 AM EDT Hospital Encounter [facility] [address] [place] [phone] Lida Suh MD [address] [place] [id number] [facility] Start: 12-29-2024 End: 12-29-2024 ambulatory 12/29/2024 4:10 PM EDT Support Visit [facility] - Pre Admit [address] [place] [address] [facility] Pre Ad[facility] Start: 12-14-2024 End: 10-13-2025 25-hydroxyvitamin D3 [Mass/volume] in Serum or Plasma Vitamin D 25 hydroxy Lab Routine Vitamin D deficiency Expected: 12/14/2024 (Approximate), Expires: 10/13/2025 [facility] Work Phone: Comment on above: Expected: 12/14/2024 (Approximate), Expires: 10/13/2025 Start: 12-01-2024 Adult BMI Screening Adult BMI Screen ing [facility] Start: 11-30-2024 Depression Screening Depression Scre ening [facility] Start: 11-30-2024 Tobacco Screening Tobacco Screening [facility] Start: 11-12-2024 Adult BMI Screening Adult BMI Screen ing [facility] Start: 11-12-2024 Tobacco Screening Tobacco Screening [facility] Start: 10-29-2024 Adult BMI Screening Adult BMI Screen ing [facility] Start: 10-29-2024 Tobacco Screening Tobacco Screening [facility] Start: 10-16-2024 End: 08-18-2025 25-hydroxyvitamin D3 [Mass/volume] in Serum or Plasma Vitamin D 25 hydroxy Lab Routine Vitamin D deficiency Expected: 10/16/2024 (Approximate), Expires: 08/18/2025 [facility] Work Phone: Comment on above: Expected: 10/16/2024 (Approximate), Expires: 08/18/2025 Start: 10-16-2024 Adult BMI Screening Adult BMI Screen ing [facility] Start: 10-16-2024 Tobacco Screening Tobacco Screening [facility] Start: 10-05-2024 End: 10-05-2024 Patient encounter procedure 10/05/2024 8:40 AM EDT Office Visit [facility] [address] [place] [address] Brooklynn Yeager NP [address] [place] [address] [facility] Start: 09-04-2024 Adult BMI Screening Adult BMI Screen ing [facility] Start: 09-04-2024 Tobacco Screening Tobacco Screening [facility] Start: 08-19-2024 End: 08-19-2024 Patient encounter procedure 08/19/2024 3:45 PM EST Office Visit [facility] [address] [place] [phone] Lida Suh MD [address] [place] [address] [facility] Start: 08-14-2024 End: 08-14-2025 25-hydroxyvitamin D3 [Mass/volume] in Serum or Plasma Vitamin D 25 hydroxy Lab Routine Hypocalcemia Expected: 08/14/2024 (Approximate), Expires: 08/14/2025 [facility] Work Phone: Comment on above: Expected: 08/14/2024 (Approximate), Expires: 08/14/2025 Start: 08-14-2024 End: 08-14-2025 Hemoglobin A1c/Hemoglobin.total in Blood Hemoglobin A1c Lab Routine Hyperglycemia Expected: 08/14/2024 (Approximate), Expires: 08/14/2025 [facility] Comment on above: Expected: 08/14/2024 (Approximate), Expires: 08/14/2025 Start: 07-30-2024 End: 07-30-2025 CBC W Auto Differential panel - Blood CBC and differential Lab Routine Tobacco user Expected: 07/30/2024 (Approximate), Expires: 07/30/2025 [facility] Comment on above: Expected: 07/30/2024 (Approximate), Expires: 07/30/2025 Start: 07-30-2024 End: 07-30-2025 Comprehensive metabolic 2000 panel - Serum or Plasma Comprehensive metabolic panel Lab Routine Obesity (BMI 30-39.9) Bipolar disorder, current episode mixed, mild (CMS/HCC) Mixed hyperlipidemia (CMS/HCC) Expected: 07/30/2024 (Approximate), Expires: 07/30/2025 [facility] Comment on above: Expected: 07/30/2024 (Approximate), Expires: 07/30/2025 Start: 07-30-2024 End: 07-30-2025 Lipid 1996 panel - Serum or Plasma Lipid panel Lab Routine Mixed hyperlipidemia (CMS/HCC) Expected: 07/30/2024 (Approximate), Expires: 07/30/2025 [facility] Work Phone: Comment on above: Expected: 07/30/2024 (Approximate), Expires: 07/30/2025 Start: 07-30-2024 End: 07-30-2025 Thyrotropin [Units/volume] in Serum or Plasma TSH Lab Routine Bipolar disorder, current episode mixed, mild (CMS/HCC) Expected: 07/30/2024 (Approximate), Expires: 07/30/2025 [facility] Comment on above: Expected: 07/30/2024 (Approximate), Expires: 07/30/2025 Start: 07-30-2024 End: 07-30-2025 Thyroxine (T4) free [Mass/volume] in Serum or Plasma T4, free Lab Routine Bipolar disorder, current episode mixed, mild (CMS/HCC) Expected: 07/30/2024 (Approximate), Expires: 07/30/2025 [facility] Comment on above: Expected: 07/30/2024 (Approximate), [...] EST - 06/17/2024 12:00 PM EST Surgery [facility] [address] [place] [address] Lida Suh MD [address] [place] [address] [phone] CYSTOSCOPY [29336 (CPT )] [facility] Comment on above: CYSTOSCOPY [66587 (C PT )] Start: 06-17-2024 End: 06-17-2024 Cystourethroscopy [facility] Start: 06-17-2024 Subsequent hospital visit by physician 06/17/2024 11:30 AM EST Hospital Encounter [facility] [address] [place] [address] Lida Suh MD [address] [place] [address] [phone] [facility] Start: 06-16-2024 End: 06-16-2024 ambulatory 06/16/2024 3:40 PM EST Support Visit [facility] - Pre [place] [phone] [facility] - Pre Admit Start: 06-08-2024 End: 06-08-2024 Patient encounter procedure 06/08/2024 2:45 PM EST Office Visit [facility] [address] [place] [phone] Lida Suh MD [address] [place] [phone] [facility] Start: 05-20-2024 End: 05-20-2024 Patient encounter procedure 05/20/2024 2:30 PM EST Office Visit [facility] [address] [place] [phone] Lida Suh MD [address] [place] [phone] [facility] Start: 05-11-2024 End: 11-12-2024 Prostatic specific antigen, diagnostic Prostatic specific antigen, diagnostic Lab Routine Elevated PSA Expected: 05/11/2024 (Approximate), Expires: 11/12/[address] [facility] Comment on above: Expected: 05/11/2024 (Approximate), Expires: 11/12/2024 Start: 03-30-2024 End: 03-30-2024 Patient encounter procedure 03/30/2024 9:00 AM EDT Office Visit [facility] [address] [place] [address] Brooklynn Yeager NP [address] [place] [address] Arrived [facility] Comment on above: Arrived Start: 03-18-2024 End: 03-18-2024 Admission to same day surgery center 03/18/2024 8:00 AM EDT - 03/18/2024 8:30 AM EDT Surgery [facility] [address] [place] [address] Lida Suh MD [address] [place] [id number] CYSTOSCOPY [67703 (CPT )] [facility] Comment on above: CYSTOSCOPY [63476 (C PT )] Start: 03-18-2024 End: 03-18-2024 Cystourethroscopy [facility] Start: 03-18-2024 Subsequent hospital visit by physician 03/18/2024 8:00 AM EDT Hospital Encounter [facility] [address] [place] [address] Lida Suh MD [address] [place] [phone] [facility] Start: 03-17-2024 End: 03-17-2024 ambulatory 03/17/2024 4:20 PM EDT Support Visit [facility] - Pre Admit [address] [place] [address] [facility] - Pre Admit Start: 03-15-2024 COVID-19 Vaccine ( season) COVID-19 Vaccine ( season) [facility] Start: 03-15-2024 COVID-19 Vaccine ( season) COVID-19 Vaccine ( season) [facility] Start: 03-15-2024 Influenza vaccination Influenza Vacc ine [facility] Start: 02-13-2024 End: 11-12-2024 Cytology Cytology Pathology and Cytology Routine Malignant neoplasm of overlapping sites of bladder (CMS-HCC) Expected: 02/13/2024 (Approximate), Expires: 11/12/[address] [facility] Comment on above: Expected: 02/13/2024 (Approximate), Expires: 11/12/2024 Start: 02-13-2024 End: 11-12-2024 Urovysion for bladder Urovysion for bladder Lab Routine Malignant neoplasm of overlapping sites of bladder ([facility]) Expected: 02/13/2024 (Approximate), Expires: 11/12/[address] [facility] Comment on above: Expected: 02/13/2024 (Approximate), Expires: 11/12/2024 Start: 01-29-2024 End: 01-29-2024 Patient encounter procedure 01/29/2024 4:00 PM EDT Office Visit [facility] [address] [place] [phone] Lida Suh MD [address] [place] [phone] [facility] Start: 12-18-2023 End: 12-18-2023 Patient encounter procedure 12/18/2023 12:15 PM EDT Office Visit [facility] [address] [place] [phone] Lida Suh MD [address] [place] [id number] [facility] Start: 11-22-2023 End: 11-22-2023 Patient encounter procedure [facility] Start: 11-13-2023 End: 11-12-2024 NM Whole body Bone Views NM bone scan whole body Imaging Routine Malignant neoplasm of overlapping sites of bladder ([facility]) Elevated PSA Expected: 11/13/2023, Expires: 11/12/[address] [facility] Comment on above: Expected: 11/13/2023 , Expires: 11/12/2024 Start: 11-13-2023 End: 11-13-2023 Patient encounter procedure 11/13/2023 11:45 AM EDT [facility] [address] [place] [address] [place] [facility] [phone] Lida Suh MD [address] [place] [id number] [facility] Start: 11-04-2023 End: 11-04-2023 Patient encounter procedure [facility] Start: 10-30-2023 End: 10-30-2023 Admission to same day surgery center 10/30/2023 9:30 AM EDT - 10/30/2023 10:30 AM EDT Surgery [facility] Surgery [address] [place] [phone] Lida Suh MD [address] [place] [id number] CYSTOSCOPY [39664 (CPT )] [facility] Comment on above: CYSTOSCOPY [35621 (C PT )] Start: 10-30-2023 End: 10-30-2023 Cysto bladder w/ureteral catheterization CYSTOSCOPY RETROGRADE PYELOGRAM Hematuria, microscopic 10/30/2023 9:30 AM EDT [facility] Start: 10-30-2023 End: 10-30-2023 CYSTOSCOPY TRANSURETHRAL RESECTION BLADDER TUMOR CYSTOSCOPY TRANSURETHRAL RESECTION BLADDER TUMOR Hematuria, microscopic 10/30/2023 9:30 AM EDT [facility] Start: 10-30-2023 End: 10-30-2023 Cystourethroscopy CYSTOSCOPY Hematuria, microscopic 10/30/2023 9:30 AM EDT [facility] Start: 10-30-2023 End: 10-30-2023 Cystourethroscopy with biopsy CYSTOSCOPY BIOPSY BLADDER Hematuria, microscopic 10/30/2023 9:30 AM EDT [facility] Start: 10-30-2023 Subsequent hospital visit by physician 10/30/2023 9:30 AM EDT Hospital Encounter [facility] Surgery [address] [place] [phone] Lida Suh MD [facility] [place] [address] [facility] Start: 10-22-2023 End: 09-03-2024 Prostatic specific antigen, diagnostic Prostatic specific antigen, diagnostic Lab Routine Elevated PSA Expected: 10/22/2023, Expires: 09/03/[address] [facility] Comment on above: Expected: 10/22/2023 , Expires: 09/03/2024 Start: 09-26-2023 End: 09-26-2023 Patient encounter procedure 09/26/2023 9:00 AM EDT Office Visit [facility] [address] [place] [phone] Brooklynn Yeager NP [address] [place] [address] [facility] Start: 09-04-2023 End: 09-04-2024 CT Kidney and Ureter and Urinary bladder 3D post processing WO and W contrast IV CT urogram Imaging Routine Hematuria, microscopic Expected: 09/04/2023, Expires: 09/04/2024 [facility] Work Phone: Comment on above: Expected: 09/04/2023 , Expires: 09/04/2024 Start: 03-15-2023 COVID-19 Vaccine ( season) COVID-19 Vaccine ( season) [facility] Start: 03-15-2023 Influenza vaccination N [facility] Start: 10-22-2022 [facility] Start: 09-04-2022 Plain X-ray abdomen XR abdomen min 2 V [facility] Start: 09-04-2022 XR Abdomen Views [facility] Start: 1988 DTaP,Tdap and Td Vac cines (1 - Tdap) DTaP,Tdap and Td Vaccines (1 - Tdap) [facility] Start: 12-27-1987 Adult BMI Follow Up Plan Adult BMI Follow Up Plan [facility] Start: 1981 Depression Screening Depression Scre ening [facility] Start: 1969 Screening for malign ant neoplasm of colon [facility] Start: 1969 Tobacco Counseling Tobacco Counselin g [facility] End: 11-06-2024 Bacteria identified in Urine by Culture Urine Culture Microbiology Routine Hematuria, microscopic 1 Occurrences starting 11/07/2023 until 11/06/2024 [employer] Work Phone: Comment on above: 1 Occurrences starti ng 11/07/2023 until 11/06/2024 End: 11-12-2024 Bacteria identified in Urine by Culture Urine Culture Microbiology Routine Malignant neoplasm of overlapping sites of bladder ([facility]) 1 Occurrences starting 11/13/2023 until 11/12/2024 [employer] Work Phone: Comment on above: 1 Occurrences starti ng 11/13/2023 until 11/12/2024 Bacteria identified in Urine by Culture Urine Culture Microbiology Routine Malignant neoplasm of overlapping sites of bladder ([facility]) 11/13/2023 10:20 PM EDT [facility] End: 09-03-2024 Cytology Cytology Pathology and Cytology Routine Hematuria, microscopic 1 Occurrences starting 09/04/2023 until 09/03/2024 [facility] Comment on above: 1 Occurrences starti ng 09/04/2023 until 09/03/2024 Patient Education [facility] Work Phone: Patient referral [facility] Work Phone: Immunizations Immunization Date Immunization Notes Care Provider Fa cili 09-11-2022 zoster vaccine recombinant Lida Suh MD Work Phone: [facility] 05-31-2022 zoster vaccine recombinant Lida Suh MD Work Phone: [facility] Payers Date Payer Category Payer Medicaid HMO [facility] MEDICAID [id number] 2023 Medicaid [id number] 2023 Private Health Insurance [id number] 2023 Medicaid [id number] 1970 Unknown [id number] 2.16.840.1.784579.3.579. 2.593 1969 Unknown [id number] 2.16.840.1.638822.3.579. 2.593 1969 Unknown [id number] 2.16.840.1.251233.3.579. 2.1285 1969 Unknown [id number] 2.16.840.1.545102.3.579. 2.1285 1969 Unknown [id number] 2.16.840.1.346274.3.579. 2.1285 1969 Unknown [id number] 2.16.840.1.332467.3.579. 2.1285 1969 Unknown [id number] 2.16.840.1.898988.3.579. 2.1285 1969 Unknown [id number] 2.16.840.1.293050.3.579. 2.1285 1969 Unknown [id number] 2.16.840.1.343847.3.579. 2.1286 1969 Unknown [id number] 2.16.840.1.795110.3.579. 2.6 1969 Unknown [id number] 2.16.840.1.757478.3.579. 2.1259 1969 Unknown [id number] 2.16.840.1.553049.3.579. 2.1259 1969 Unknown [id number] 2.16.840.1.676160.3.579. 2.1259 1969 Unknown [id number] 2.16.840.1.394944.3.579. 2.6 1969 Unknown [id number] 2.16.840.1.973102.3.579. 2.6 1969 Unknown [id number] 2.16.840.1.653842.3.579. 2.1285 1969 Unknown [id number] 2.16.840.1.002347.3.579. 2.6 1969 Unknown [id number] 2.16.840.1.062015.3.579. 2.1285 1969 Unknown [id number] 2.16.840.1.350303.3.579. 2.1286 1959 Self-pay [id number] 1959 Unknown [id number] Unknown [id number] 2.16.840.1.176080.3.579. 2.593 Unknown [id number] 2.16.840.1.506126.3.579. 2.531 Social History Date Type Detail Facility Start: 09-04-2022 End: 10-22-2022 Tobacco smoking status UTIS Smoker (finding) [facility] Start: 1970 Sex Assigned At Male F [facility] Start: 07-17-2023 End: 07-30-2024 Tobacco smoking status NHIS Smokes tobacco daily [facility] Start: 07-15-1988 History of tobacco use Cigarette Smo ker [facility] Start: 07-17-2023 End: 03-23-2024 Cigarettes smoked current (pack per day) - Reported 1 [facility] Start: 08-21-2023 End: 10-05-2024 Alcohol intake Ex-drinker (finding) [facility] Start: 07-22-2023 End: 03-23-2024 Tobacco use panel [facility] Start: 07-21-2023 Alcohol Comment caffeine 1-2 c ups per day [facility] Start: 1970 Sex Assigned At Not on file [facility] How often do you nee d to have someone help you when you read instructions, pamphlets, or other written material from your doctor or pharmacy [SILS] Never [facility] Do you belong to any clubs or organizations such as restorationist groups, unions, fraternal or athletic groups, or [...] the mortgage or rent on time? Yes [facility] Start: 09-04-2023 End: 03-17-2024 Tobacco use and exposure Smokeless tobacco non-user [facility] Start: 08-19-2024 End: 12-30-2024 Alcoholic beverage intake Lifetime non-drinker (finding) [facility] How often to you hav e a drink containing alcohol? Monthly or less [facility] How many standard dr inks containing alcohol do you have on a typical day? 1 or 2 [facility] Start: 08-06-2023 Sex Male (finding) [facility] Goals Date Patient Goal Desired Activity /State Personal health goal Clinical Notes 08-21-2023 to 12-30-2024 Telephone Encounter - Lida Suh MD - 12/30/2024 8:30 AM EDTTelephone Encounter - Lida Suh MD - 12/30/2024 8:30 AM EDTTelephone Encounter - Carol Robert CNA - 12/11/2024 3:50 PM EDT Note Date & Type Note Facility 12-30-2024 Miscellaneous Notes Cysto [facility] [place] 6 months diagnosis history urothelial carcinoma documented in this encounter [facility] 12-30-2024 Telephone encounter Note Cysto [facility] [place] 6 months diagnosis history urothelial carcinoma [facility] 12-11-2024 Miscellaneous Notes Pt calls stating he is scheduled for a Cysto 12/30/24, pt states that last time he had cysto you prescribed pain meds before procedure. Pt is asking for pain meds ahead of time again. Please advice Actually we will give him a Percocet when he arrives and after we get his consent. Someone must drive him home. Pt informed documented in this encounter [facility] 12-11-2024 Telephone encounter Note Pt calls stating he is scheduled for a Cysto 12/30/24, pt states that last time he had cysto you prescribed pain meds before procedure. Pt is asking for pain meds ahead of time again. Please advice [facility] 12-11-2024 Telephone encounter Note Actually we will give him a Percocet when he arrives and after we get his consent. Someone must drive him home. [facility] 12-11-2024 Telephone encounter Note Pt informed [facility] 09-16-2024 Miscellaneous Notes Patient called to inquire if his cystoscopy will be every 6 months. I advised pt per Dr. Suh note: Cysto local [place] setup 6 months diagnosis history bladder carcinoma. Advised pt that Yoselynstella Suh mitochondrial disorders counselor will call him when it is time to schedule his cysto. Pt advised understanding of this. documented in this encounter [facility] 09-16-2024 Telephone encounter Note Patient called to inquire if his cystoscopy will be every 6 months. I advised pt per Dr. Suh note: Cysto local [place] setup 6 months diagnosis history bladder carcinoma. Advised pt that Yoselyn Suh mitochondrial disorders counselor will call him when it is time to schedule his cysto. Pt advised understanding of this. [facility] 08-19-2024 Evaluation + Plan note Associated Problem(s): Elevated PSA He does have some difficulty urinating in the morning. I did ask if it is bad enough for him to take it daily medication it was not. It is only isolated. He voids well otherwise. He is happy with the current state. [facility] 08-19-2024 Miscellaneous Notes Associated Problem(s): Elevated PSA He does have some difficulty urinating in the morning. I did ask if it is bad enough for him to take it daily medication it was not. It is only isolated. He voids well otherwise. He is happy with the current state. documented in this encounter [facility] 08-19-2024 History of Presen t illness Narrative Images from the original note were not included. [address] [place] [address] [facility] [phone] Patient: Reno Abreu Date of : 1970 [...] Past Medical History: Diagnosis Date Bipolar disorder ([facility]) Bladder cancer ([facility]) Chronic constipation Depression Hyperlipidemia Visual impairment Past Surgical History: Procedure Laterality Date CHOLECYSTECTOMY 2020 COLONOSCOPY CYSTOSCOPY N/A 06/17/2024 Performed by Lida Suh MD at [facility] CYSTOSCOPY N/A 03/18/2024 Performed by Lida Suh MD at [facility] CYSTOSCOPY N/A 10/30/2023 Performed by Lida Suh MD at [facility] CYSTOSCOPY TRANSURETHRAL RESECTION BLADDER TUMOR N/A 10/30/2023 Performed by Lida Suh MD at [facility] LIPOMA RESECTION several History reviewed. No pertinent [...] Malignant neoplasm of overlapping sites of bladder ([facility]) Overview ==== 11/13/2023 ==== #### status post [...] for your understanding. documented in this encounter [facility] 07-30-2024 Instructions Brooklynn Yeager NP - 07/30/2024 8:40 AM EST Get fasting labs Continue with urology documented in this encounter [facility] 06-17-2024 Miscellaneous Notes Cysto local [place] setup 6 months diagnosis history bladder carcinoma. documented in this encounter [facility] 06-17-2024 [facility] diagnosis [facility] bladder carcinoma. [facility] 03-30-2024 History of Presen t illness [...] Abdominal pain 09/26/2023 Abnormal TSH Bipolar disorder ([facility]) 07/22/2023 Chicken pox Cholelithiasis Constipation, chronic COVID-19 virus infection DDD (degenerative disc disease), lumbar Diverticulitis 06/26/2023 Genital warts 09/26/2023 History of HPV infection 09/26/2023 HLD (hyperlipidemia) ([facility]) 07/22/2023 Insomnia 09/26/2023 Lipoma 09/26/2023 [...] Bridge of nose with palpable lump: approx [id number], non tender no induration noted no fluctuance [...] of this condition documented in this encounter [facility] 03-18-2024 Miscellaneous Notes Cysto local [place] 3 months diagnosis history bladder carcinoma. documented in this encounter [facility] 03-18-2024 Telephone encounter Note Cysto local [place] 3 months diagnosis history bladder carcinoma. [facility] 03-17-2024 Nurse Note Preoperative Education Checklist- General Surgery date: 03/18/24 Surgery time: 8a Arrival time: 7a 1. Bring a photo ID and your insurance card with you the day of surgery. You will check in at the main lobby of the [facility]- registration desk is straight ahead as soon as you walk in. Tell them you are here for surgery. 2. If you have a Living Will/Durable Power of Metaphysician for Health Care that is not on [...] after you have bathed. 5. NO nail cambodian/acrylic on at least one finger. If you are having a hand, wrist or foot surgery then all nail cambodian and artificial/acrylic nails must be removed from [...] please call the Preadmission Testing office at [phone], Mon.-Fri. 7 a.m.-3 p.m. Leave a voicemail if needed. Pre-Surgery Instructions: Medication Instructions atorvastatin (LIPITOR) 10 mg tablet Stop taking 0 days prior to procedure lamoTRIgine (LaMICtal) 100 mg tablet Take morning of procedure citalopram (CeleXA) 20 mg tablet Stop taking 0 days prior to procedure [facility] 03-17-2024 Miscellaneous Notes Preoperative Education Checklist- General Surgery date: 03/18/24 Surgery time: 8a Arrival time: 7a 1. Bring a photo ID and your insurance card with you the day of surgery. You will check in at the main lobby of the [facility]- registration desk is straight ahead as soon as you walk in. Tell them you are here for surgery. 2. If you have a Living Will/Durable Power of Metaphysician for Health Care that is not on [...] after you have bathed. 5. NO nail cambodian/acrylic on at least one finger. If you are having a hand, wrist or foot surgery then all nail cambodian and artificial/acrylic nails must be removed from [...] please call the Preadmission Testing office at [phone], Mon.-Fri. 7 a.m.-3 p.m. Leave a voicemail if needed. Pre-Surgery Instructions: Medication Instructions atorvastatin (LIPITOR) 10 mg tablet Stop taking 0 days prior to procedure lamoTRIgine (LaMICtal) 100 mg tablet Take morning of procedure citalopram (CeleXA) 20 mg tablet Stop taking 0 days prior to procedure documented in this encounter [facility] 01-29-2024 Evaluation + Plan note Associated Problem(s): Malignant neoplasm of overlapping sites of bladder (CMS-HCC) Postop day of have clots and clot retention. This has resolved. He was started on finasteride and Flomax at the time of the ER visit. He was not on these before. He can stop those. [facility] 01-29-2024 Miscellaneous Notes Associated Problem(s): Malignant [...] finasteride documented in this encounter [facility] 01-29-2024 Evaluation + Plan note Associated Problem(s): Elevated PSA He can stop his Flomax as well as finasteride [facility] 01-29-2024 History of Presen t illness Narrative Images from the original note were not included. [address] [place] [address] [address] [facility] [phone] Patient: eRno Abreu Date of : 1970 Encounter Date: [...] Past Medical History: Diagnosis Date Bipolar disorder ([facility]) Chronic constipation Depression Hyperlipidemia Visual impairment Past Surgical History: Procedure Laterality Date CHOLECYSTECTOMY 2020 COLONOSCOPY CYSTOSCOPY N/A 10/30/2023 Performed by Lida Suh MD at [facility] CYSTOSCOPY TRANSURETHRAL RESECTION BLADDER TUMOR N/A 10/30/2023 Performed by Lida Suh MD at [facility] History reviewed. No pertinent family history. Current [...] understanding. documented in this encounter [facility] 01-21-2024 Miscellaneous Notes Patient calls in he is out of his Tamsulosin and Finasteride which he states he was prescribed in the ER. He is asking if you can refill it until he sees him in the office on Saturday01/29/24 - He was in the [place] ER - He was urinating blood clots causing him to go into Urinary retention. [facility] in [place] These were both refilled by me on December 18 to the appropriate pharmacy Patient informed to call [facility] to have them fill, as they may be on file. documented in this encounter [facility] 01-21-2024 Telephone encounter Note Patient calls in he is out of his Tamsulosin and Finasteride which he states he was prescribed in the ER. He is asking if you can refill it until he sees him in the office on Saturday01/29/24 - He was in the [place] ER - He was urinating blood clots causing him to go into Urinary retention. [facility] in [place] [facility] 01-21-2024 Telephone encounter Note These were both refilled by me on December 18 to the appropriate pharmacy [facility] 01-21-2024 Telephone encounter Note Patient informed to call [facility] to have them fill, as they may be on file. [facility] 12-19-2023 Miscellaneous Notes Richard from [facility] at Dr. Olsen's office in [place] is asking if pt is to continue on the Flomax and the Proscar for more than a month? He was prescribed these at the ER and was only given 30 days worth of each. Pt was to see you yesterday, but is now scheduled for 01/29/2024. I refilled those prescriptions when we see him in January we can determine what to do Ardana was notified and will let pt know. documented in this encounter [facility] 12-19-2023 Telephone encounter Note Ardana from [facility] at Dr. Olsen's office in [place] is asking if pt is to continue on the Flomax and the Proscar for more than a month? He was prescribed these at the ER and was only given 30 days worth of each. Pt was to see you yesterday, but is now scheduled for 01/29/2024. [facility] 12-19-2023 Telephone encounter Note I refilled those prescriptions when we see him in January we can determine what to do [facility] 12-19-2023 Telephone encounter Note Ardana was notified and will let pt know. [facility] 11-13-2023 Evaluation + Plan note Associated Problem(s): Malignant neoplasm of overlapping sites of bladder (CMS-HCC) Patient with incidental finding CT urogram some bony changes. PSA is really not the elevated actually PSA is better now. Talked about potential metastasis. Certainly need a bone scan to evaluate. Return clinic. [facility] 11-13-2023 Miscellaneous Notes Associated Problem(s): Malignant neoplasm of overlapping sites of bladder (CMS-HCC) Patient with incidental finding CT urogram some bony changes. PSA is really not the elevated actually PSA is better now. Talked about potential metastasis. Certainly need a bone scan to evaluate. Return clinic. documented in this encounter [facility] 11-13-2023 Miscellaneous Notes 3-4 months cysto local [place] diagnosis history urothelial carcinoma. Urine for fish and cytology 2 weeks prior. documented in this encounter [facility] 11-13-2023 Telephone encounter Note 3-4 months cysto [facility] diagnosis history urothelial carcinoma. Urine for fish and cytology 2 weeks [address] [facility] 11-13-2023 History of Presen t illness Narrative Images from the original note were not included. [address] [place] [address] [facility] [phone] Patient: Reno Abreu Date of : 1970 [...] Past Medical History: Diagnosis Date Bipolar disorder ([facility]) Chronic constipation Depression Hyperlipidemia Visual impairment Past Surgical History: Procedure Laterality Date CHOLECYSTECTOMY 2020 COLONOSCOPY CYSTOSCOPY N/A 10/30/2023 Performed by Lida Suh MD at [facility] CYSTOSCOPY TRANSURETHRAL RESECTION BLADDER TUMOR N/A 10/30/2023 Performed by Lida Suh MD at [facility] History reviewed. No pertinent family history. Current Outpatient Medications Medication Sig Dispense Refill atorvastatin (LIPITOR) 10 mg tablet Take 1 tablet (10 mg total) by mouth in the morning. citalopram (CeleXA) 20 mg tablet Take 1 tablet (20 mg total) by mouth in the morning. lamoTRIgine (LaMICtal) 100 mg tablet Take 1 tablet (100 mg total) by mouth in the morning. libanvrov-qqhle-rqk (URO-MP) 118-10-40.8-36 mg capsule Take 1 capsule [...] scan whole body; Future Other orders - treasure-s.ibzo-xhqos-cto (URO-MP) 118-10-40.8-36 mg capsule; Take 1 capsule [...] for your understanding. documented in this encounter [facility] 11-07-2023 Miscellaneous Notes Patient is having intermittent blood with urination. Patient also states he is urinating frequently and sometimes its a very good stream but he oconnell at the end of the stream, then he tries to push a little more and it drips blood. Patient just wants to be sure things are going as it should. Pt states he lives in [facility]'s f/u appt is scheduled for 11/13/2023 He is also asking about his path results. Findings are very typical postprocedure. Will review pathology at office appointment. Should he wish I did place an order for urine culture he can always have that obtained. Patient was informed documented in this encounter [facility] 11-07-2023 Telephone encounter Note Patient is having intermittent blood with urination. Patient also states he is urinating frequently and sometimes its a very good stream but he oconnell at the end of the stream, then he tries to push a little more and it drips blood. Patient just wants to be sure things are going as it should. Pt states he lives in [place] Pt's f/u appt is scheduled for 11/13/2023 He is also asking about his path results. [facility] 11-07-2023 Telephone encounter Note Findings are very typical postprocedure. Will review pathology at office appointment. Should he wish I did place an order for urine culture he can always have that obtained. [facility] 11-07-2023 Telephone encounter Note Patient was informed [facility] 10-31-2023 Miscellaneous Notes Patient called in stating he is in a lot of pain every time he goes to urinate. [place] would like something sent over to the pharmacy on file. Please advise Pyridium sent to his pharmacy documented in this encounter [facility] 10-31-2023 Telephone encounter Note Patient called in stating he is in a lot of pain every time he goes to urinate. [place] would like something sent over to the pharmacy on file. Please advise [facility] 10-31-2023 Telephone encounter Note Pyridium sent to his pharmacy [facility] 10-30-2023 Miscellaneous Notes Patient needs to follow up in the office in [place] 2-3 weeks or so. Follow up on the TURBT. documented in this encounter [facility] 10-30-2023 Telephone encounter Note Patient needs to follow up in the office in [place] 2-3 weeks or so. Follow up on the TURBT. [facility] 10-17-2023 Instructions Tiffanie Altamirano RN - 10/17/2023 9:00 AM EDT Preoperative Education Checklist- General Surgery date: 10/30/23 Surgery time: 930a Arrival time: 730a 1. Bring a photo ID and your insurance card with you the day of surgery. You will check in at the main lobby of the [facility]- registration desk is straight ahead as soon as you walk in. Tell them you are here for surgery. 2. If you have a Living Will/Durable Power of Metaphysician for Health Care that is not on [...] after you have bathed. 5. NO nail cambodian/acrylic on at least one finger. If you are having a hand, wrist or foot surgery then all nail cambodian and artificial/acrylic nails must be removed from [...] please call the Preadmission Testing office at [phone], Mon.-Fri. 7 a.m.-3 p.m. Leave a voicemail [...] with your doctor. documented in this encounter [facility] 09-04-2023 Miscellaneous Notes Cysto potential retrograde pyelogram. Mac anesthesia [place]. Possible biopsy. Diagnosis is hematuria. documented in this encounter [facility] 09-04-2023 Telephone encounter Note Cysto potential retrograde pyelogram. Mac anesthesia [place]. Possible biopsy. Diagnosis is hematuria. [facility] 09-04-2023 Evaluation + Plan note Associated [...] patient acknowledges this and agrees. [facility] 09-04-2023 Miscellaneous Notes Associated Problem(s): Hematuria, [...] agrees. documented in this encounter [facility] 09-04-2023 History of Presen t illness Narrative Images from the original note were not included. [address] [place] [address] [facility] [id number] Patient: [place] Abreu Date of : 1970 [...] understanding. documented in this encounter [facility] 08-21-2023 Telephone encounter Note pt called needing a refill on his lamoTRIgine (LaMICtal) 100 MG tablet and citalopram (CeleXA) 20 MG tablet [facility] 08-21-2023 Miscellaneous Notes pt called needing a refill on his lamoTRIgine (LaMICtal) 100 MG tablet and citalopram (CeleXA) 20 MG tablet documented in this encounter [facility] Evaluation note No assessment inform [facility] Work Phone: Evaluation note Diagnosis Bipolar affective disorder, remission status unspecified (CMS/HCC)- Primary documented in this encounter [facility]* Diagnosis Mixed hyperlipidemia (CMS/HCC)- Primary Mixed hyperlipidemia documented in this encounter [facility] HealthcareEvaluation note* Diagnosis Mixed hyperlipidemia (CMS/HCC) Mixed [...] D deficiency- Primary documented in this encounter [facility] HealthcareEvaluation note* Diagnosis Elevated PSA- Primary Elevated [...] Primary Microscopic hematuria [facility] Diagnosis Malignant neoplasm of overlapping sites of bladder (CMS-HCC)- Primary Elevated PSA Elevated prostate specific antigen (PSA) documented [facility] Diagnosis Elevated PSA- Primary Elevated prostate specific antigen (PSA) Hematuria, microscopic Microscopic hematuria [facility] Diagnosis Malignant neoplasm of overlapping sites of bladder (CMS-HCC)- Primary Urinary incontinence, unspecified type- Primary Elevated PSA Elevated prostate specific antigen (PSA) Malignant neoplasm of overlapping sites of bladder (CMS-HCC) Malignant neoplasm of overlapping sites of bladder (CMS-HCC) [facility] Diagnosis Elevated PSA- Primary [...] of bladder (CMS-HCC) [facility] Diagnosis Diverticulitis- Primary Diverticulitis of [...] D deficiency- Primary documented in this encounter [facility]* Diagnosis Diverticulitis- Primary Diverticulitis of [...] D deficiency- Primary documented in this encounter [facility]* Diagnosis Elevated PSA- Primary Elevated [...] of bladder (CMS-HCC) [facility] Diagnosis Diverticulitis- Primary Diverticulitis of colon (without mention of hemorrhage) Diverticulitis- Primary Diverticulitis of colon (without mention of hemorrhage) Screening for prostate cancer Special screening for malignant neoplasm of prostate Mixed hyperlipidemia Mixed hyperlipidemia Tobacco user Tobacco use disorder Bipolar affective disorder, remission status unspecified (HCC) Skin tags, multiple acquired Bipolar affective disorder, remission status unspecified (HCC)- Primary Mixed hyperlipidemia Mixed hyperlipidemia Microscopic hematuria Obesity (BMI 30-39.9) Tobacco user Tobacco use disorder Bipolar affective disorder, remission status unspecified (HCC)- Primary Malignant neoplasm of overlapping sites of bladder (HCC) Tobacco user Tobacco use disorder Lump of skin Localized superficial swelling, mass, or lump Contusion of scalp, initial encounter Mixed hyperlipidemia Mixed hyperlipidemia Bipolar disorder, current episode mixed, mild (HCC)- Primary Malignant neoplasm of overlapping sites of bladder (HCC) Obesity (BMI 30-39.9) Mixed hyperlipidemia Mixed hyperlipidemia Tobacco user Tobacco use disorder Bipolar affective disorder, remission status unspecified (HCC) Bipolar affective disorder, remission status unspecified (HCC)- Primary Obesity (BMI 30-39.9) Bipolar disorder, current episode mixed, mild (HCC) Tobacco user Tobacco use disorder Malignant neoplasm of overlapping sites of bladder (HCC) Vitamin D deficiency Hypocalcemia Cigarette nicotine dependence without complication Mixed hyperlipidemia Mixed hyperlipidemia Vitamin D deficiency [facility]* Brooklynn Yeager, ROSA - 07/30/2024 8:40 AM EST Images from [...] Abdominal pain 09/26/2023 Abnormal TSH Bipolar disorder ([facility]) 07/22/2023 Chicken pox Cholelithiasis Constipation, chronic COVID-19 virus infection DDD (degenerative disc disease), lumbar Diverticulitis 06/26/2023 Genital warts 09/26/2023 History of HPV infection 09/26/2023 HLD (hyperlipidemia) ([facility]) 07/22/2023 Insomnia 09/26/2023 Lipoma 09/26/2023 [...] of the risks of continued smoking: stroke, [place], all forms of cancer, lung disease, and [...] of the risks of continued smoking: stroke, [place], all forms of cancer, lung disease, and [...] with Urology for mgmt [facility] Additional Instructions As we discussed, your symptoms of excessive sleepiness during the day, persistent fatigue, and loud snoring suggest possible sleep apnea. Please follow up with your doctor about this as you may need to be referred for a sleep study. MiraLax may be used daily to stay regular and prevent constipation. May be taken twice daily until constipation is resolved.[facility] Work Phone: InstructionsNot on filedocumented in [...] scan whole body Lida Suh MD [address] [place] [id number] [facility] [address] [place] [address] Phone: [phone] Referral ID Status Reason Start Date Expiration Date V isits Requested Visits Authorized [id number] PREG Nurse Review 11/13/2023 11/12/2024 5 5 Specialty Diagnoses / Procedures Referred By Helen hayes Referred To Contact Radiology Diagnoses Hematuria, microscopic Procedures CT urogram Lida Suh MD [address] [place] [id number] Referral ID Status Reason Start Date Expiration Date V isits Requested Visits Authorized [id number] Pending Review 09/04/2023 09/03/2024 1 1 Specialty Diagnoses / Procedures Referred By Helen hayes Referred To Contact Diagnoses Urinary incontinence, unspecified type Procedures Measure post void residual Lida Suh MD [address] [place] [id number] Referral ID Status Reason Start Date Expiration Date V isits Requested Visits Authorized [id number] Pending Review 01/29/2024 01/28/2025 1 1 Additional Source Comments (unrecognized sect ion and content) No Status Records FoundNo Status Records FoundNo Status Records FoundNo Status Records FoundNo Status Records FoundNo Status Records FoundNo Status Records Found INFORMATION SOURCE (unrecogn ized section and content) DATE CREATED AUTHOR 02/04/2018 [employer] [facility] DATE CREATED AUTHOR AUTHOR'S ORGANIZ ATION 10/02/2022 [facility] DATE CREATED AUTHOR AUTHOR'S ORGANIZ ATION 12/03/2023 [facility] DATE CREATED AUTHOR AUTHOR'S ORGANIZ ATION 12/11/2023 [facility] DATE CREATED AUTHOR AUTHOR'S ORGANIZ ATION 08/22/2024 [facility] DATE CREATED AUTHOR AUTHOR'S ORGANIZ ATION 10/05/2024 [facility] DATE CREATED AUTHOR AUTHOR'S ORGANIZ ATION 01/09/2025 [facility] Care Teams (unrecognized sec tion and content) Team Status: Inactive Member Role Status Dates Brooklynn eYager Primary Care Provider Active Hernandez Lares Jr, MD Emergency Provider Active Team Status: Active Member Role Status Dates Brooklynn Yeager Primary Care Provider Active Team Status: Inactive Member Role Status Dates Kevin Sheehan MD Attending Provider Active Team Status: Inactive Member Role Status Dates Kevin Sheehan MD Attending Provider Active Brooklynn Yeager Primary Care Provider Active Agronomy Supervisor Relationship Specialty Start Date End Date Eusebio Schneider MD [address] [place] [address] PCP - General Family Medicine 07/16/23 Brooklynn Yeager NP [address] [place] [address] Nurse Practitioner Family Medicine 05/15/23 Agronomy Supervisor Relationship Specialty Start Date End Date Eusebio Schneider MD [address] [place] [address] PCP - General Family Medicine 07/16/23 Brooklynn Yeager NP [address] [place] [address] Nurse Practitioner Family Medicine 05/15/23 Agronomy Supervisor Relationship Specialty Start Date End Date Eusebio Schneider MD [address] [place] [address] PCP - General Family Medicine 09/26/23 Brooklynn Yeager NP [address] [place] [address] PCP - [facility] 01/13/24 Brooklynn Yeager NP [address] [place] [address] Nurse Practitioner Family Medicine 05/15/23 Brooklynn Yeager NP [address] [place] [address] Nurse Practitioner Family Medicine 09/26/23 Agronomy Supervisor Relationship Specialty Start Date End Date Eusebio Schneider MD [address] [place] [address] PCP - General Family Medicine 09/26/23 Brooklynn Yeager NP [address] [place] [address] PCP - [facility] 01/13/24 Brooklynn Yeager NP [address] [place] [address] Nurse Practitioner Family Medicine 05/15/23 Brooklynn Yeager NP [address] [place] [address] Nurse Practitioner Family Medicine 09/26/23 Agronomy Supervisor Relationship Specialty Start Date End Date Eusebio Schneider MD [address] [place] [address] PCP - General Family Medicine 09/26/23 Brooklynn Yeager NP [address] [place] [address] PCP - [facility] 01/13/24 Brooklynn Yeager NP [address] [place] [address] Nurse Practitioner Family Medicine 05/15/23 Brooklynn Yeager NP [address] [place] [address] Nurse Practitioner Family Medicine 09/26/23 Agronomy Supervisor Relationship Specialty Start Date End Date Eusebio Schneider MD [address] [place] [address] PCP - General Family [facility] 09/26/23 Brooklynn Yeager NP [address] [place] [address] PCP - [facility] 01/13/24 Brooklynn Yeager NP [address] [place] [address] Nurse Practitioner Family Medicine 05/15/23 Brooklynn Yeager NP [address] [place] [address] Nurse Practitioner Family Medicine 09/26/23 Agronomy Supervisor Relationship Specialty Start Date End Date Eusebio Schneider MD [address] [place] [address] PCP - General Family Medicine 09/26/23 Brooklynn Yeager NP [address] [place] [address] PCP - [facility] 01/13/24 Brooklynn Yeager NP [address] [place] [address] Nurse Practitioner Family Medicine 05/15/23 Brooklynn Yeager NP [address] [place] [address] Nurse Practitioner Family Medicine 09/26/23 Agronomy Supervisor Relationship Specialty Start Date End Date Eusebio Schneider MD [address] [place] [address] PCP - General [facility] 09/26/23 Brooklynn Yeager NP [address] [place] [address] PCP - [facility] 01/13/24 Brooklynn Yeager NP [address] [place] [address] Nurse Practitioner Family Medicine 05/15/23 Brooklynn Yeager NP [address] [place] [address] Nurse Practitioner Family Medicine 09/26/23 Agronomy Supervisor Relationship Specialty Start Date End Date Eusebio Schneider MD [address] [place] [address] PCP - General Family Medicine 09/26/23 Brooklynn Yeager NP [address] [place] [address] PCP - [facility] 01/13/24 Brooklynn Yeager NP [address] [place] [address] Nurse Practitioner Family Medicine 05/15/23 Brooklynn Yeager NP [address] [place] [address] Nurse Practitioner Family Medicine 09/26/23 Agronomy Supervisor Relationship Specialty Start Date End Date Eusebio Schneider MD [address] [place] [address] PCP - General Family [facility] 09/26/23 Brooklynn Yeager NP [address] [place] [address] PCP - [facility] 01/13/24 Brooklynn Yeager NP [address] [place] [address] Nurse Practitioner Family Medicine 05/15/23 Brooklynn Yeager NP [address] [place] [address] Nurse Practitioner Family Medicine 09/26/23 Agronomy Supervisor Relationship Specialty Start Date End Date Eusebio Schneider MD [address] [place] [address] PCP - General Family Medicine 09/26/23 Brooklynn Yeager NP [address] [place] [address] PCP - [facility] 01/13/24 Brooklynn Yeager NP [address] [place] [address] Nurse Practitioner Family Medicine 05/15/23 Brooklynn Yeager NP [address] [place] [address] Nurse Practitioner Family Medicine 09/26/23 Agronomy Supervisor Relationship Specialty Start Date End Date Eusebio Schneider MD [address] [place] [address] PCP - General Family Medicine 09/26/23 Brooklynn Yeager NP [address] [place] [address] PCP - [facility] 01/13/24 Brooklynn Yeager NP [address] [place] [address] Nurse Practitioner Family Medicine 05/15/23 Brooklynn Yeager NP [address] [place] [address] Nurse Practitioner Family Medicine 09/26/23 Agronomy Supervisor Relationship Specialty Start Date End Date [facility] PCP - General Nurse Practitioner 09/04/23 Agronomy Supervisor Relationship Specialty Start Date End Date Brooklynn Yeager [facility] [address] [place] [address] PCP - General Nurse Practitioner 09/04/23 Agronomy Supervisor Relationship Specialty Start Date End Date Brooklynn Yeager [facility] [address] [place] [address] PCP - General Nurse Practitioner 09/04/23 Agronomy Supervisor Relationship Specialty Start Date End Date Brooklynn Yeager [facility] [address] [place] [address] PCP - General Nurse Practitioner 09/04/23 Agronomy Supervisor Relationship Specialty Start Date End Date Brooklynn Yeager [facility] [address] [place] [address] PCP - General Nurse Practitioner 09/04/23 Agronomy Supervisor Relationship Specialty Start Date End Date Brooklynn Yeager [facility] [address] [place] [address] PCP - General Nurse Practitioner 09/04/23 Agronomy Supervisor Relationship Specialty Start Date End Date Brooklynn Yeager [facility] [address] [place] [address] PCP - General Nurse Practitioner 09/04/23 Agronomy Supervisor Relationship Specialty Start Date End Date Brooklynn Yeager [facility] [address] [place] [address] PCP - General Nurse Practitioner 09/04/23 Agronomy Supervisor Relationship Specialty Start Date End Date Brooklynn Yeager [facility] [address] [place] [address] PCP - General Nurse Practitioner 09/04/23 Agronomy Supervisor Relationship Specialty Start Date End Date Brooklynn Yeager [facility] [address] [place] [address] PCP - General Nurse Practitioner 09/04/23 Agronomy Supervisor Relationship Specialty Start Date End Date Brooklynn Yeager [facility] [address] [place] [address] PCP - General Nurse Practitioner 09/04/23 Agronomy Supervisor Relationship Specialty Start Date End Date Brooklynn Yeager [facility] [address] [place] [address] PCP - General Nurse Practitioner 09/04/23 Agronomy Supervisor Relationship Specialty Start Date End Date Brooklynn Yeager [facility] PCP - General Nurse Practitioner 09/04/23 Agronomy Supervisor Relationship Specialty Start Date End Date Brooklynn Yeager EDUCATION OFFICER-[employer]ENEER GRADER PCP - General Nurse Practitioner 09/04/23 Agronomy Supervisor Relationship Specialty Start Date End Date Brooklynn Yeager APRN-VENEER GRADER PCP - General Nurse Practitioner 09/04/23 Agronomy Supervisor Relationship Specialty Start Date End Date Brooklynn Yeager EDUCATION OFFICER-[employer]ENEER GRADER PCP - General Nurse Practitioner 09/04/23 Agronomy Supervisor Relationship Specialty Start Date End Date Eusebio Schneider MD [address] [place] [address] PCP - General Family Medicine 09/26/23 Brooklynn Yeager NP [address] [place] [address] PCP - [facility] 01/13/24 Brooklynn Yeager NP [address] [place] [address] Nurse Practitioner Family Medicine 05/15/23 Brooklynn Yeager NP [address] [place] [address] Nurse Practitioner Family Medicine 09/26/23 Agronomy Supervisor Relationship Specialty Start Date End Date Brooklynn Yeager APRN-VENEER GRADER PCP - General Nurse Practitioner 09/04/23 Agronomy Supervisor Relationship Specialty Start Date End Date Eusebio Schneider MD [address] [place] [address] PCP - General Family Medicine 09/26/23 Brooklynn Yeager NP [address] [place] [address] PCP - [facility] 01/13/24 Brooklynn Yeager NP [address] [place] [address] Nurse Practitioner Family Medicine 05/15/23 Brooklynn Yeager NP [address] [place] [address] Nurse Practitioner Family Medicine 09/26/23 Agronomy Supervisor Relationship Specialty Start Date End Date Eusebio Schneider MD [address] [place] [address] PCP - General [facility] 09/26/23 Brooklynn Yeager NP [address] [place] [address] PCP - [facility] 01/13/24 Brooklynn Yeager NP [address] [place] [address] Nurse Practitioner Family Medicine 05/15/23 Brooklynn Yeager NP [address] [place] [address] Nurse Practitioner Family Medicine 09/26/23 Agronomy Supervisor Relationship Specialty Start Date End Date Eusebio Schneider MD [address] [place] [address] PCP - General Family Medicine 09/26/23 Brooklynn Yeager NP [address] [place] [address] PCP - [facility] 01/13/24 Brooklynn Yeager NP [address] [place] [address] Nurse Practitioner Family Medicine 05/15/23 Brooklynn Yeager NP [address] [place] [address] Nurse Practitioner Family Medicine 09/26/23 Agronomy Supervisor Relationship Specialty Start Date End Date Brooklynn Yeager APRN-VENEER GRADER PCP - General Nurse Practitioner 09/04/23 Agronomy Supervisor Relationship Specialty Start Date End Date Eusebio Schneider MD [address] [place] [address] PCP - General Family Medicine 09/26/23 Brooklynn Yeager NP [address] [place] [address] PCP - [facility] 01/13/24 Brooklynn Yeager NP [address] [place] [address] Nurse Practitioner Family Medicine 05/15/23 Brooklynn Yeager NP [address] [place] [address] Nurse Practitioner Family Medicine 09/26/23 Goals (unrecognized [...] Reason Comments Follow-up Review NM Bone Scan Reason Comments Med Refill FOR RECORDS PERTAINING TO PATIENTS WHO ARE [...] BE BASED ON THE PRIMARY CLINICAL RECORDS. [employer] provides no warranty or guarantee of the accuracy or completeness of information in this document.
== END 2025-03-12 15:36 | disposition home or self-care (01) ==
PROVIDERS: PCP Nurse Practitioner; Visit Provider Nurse Practitioner
DX: E55.9 Vitamin D deficiency, unspecified (principal)
CPT/HCPCS: 36415; 82306

== ENCOUNTER 2025-04-23 20:43 | Emergency (ER) | payer OTHER, SELFPAY ==
[2025-04-23 20:47] VITALS: BP 116/79; PULSE 64; TEMP 36.8; O2SAT 99; BMI 31.2
--- NOTE | 2025-04-23 20:59 | XR_ITS ---
[facility] [place] [id number] Patient Name: LUKE ABREU MRN: [id number] date: 1970 Sex: M Assigned Patient Location: ED.MAIN Current Patient Location: ED.MAIN Accession/Order Number: [id number] Exam Date: 04/23/2025 21:42 Report Date: 04/23/2025 22:33 At the request of: PRIYA PABLO DO Procedure: XR tibia fibula RT 2V 2 views right tibia-fibula CLINICAL HISTORY: mid shaft tibia pain COMPARISON: None FINDINGS: No fracture dislocation. Soft tissues grossly unremarkable. Posterior and plantar calcaneal enthesophyte formation. XR/XR tibia fibula RT 2V IMPRESSION: NEGATIVE ACUTE FRACTURES ORIENTATION. Impression dictated by: Hudson Hinds M.D. 04/23/2025 10:33 PM Dictation Location: [place] [address] Electronically authenticated by: [id number] Y Date: 04/23/2025 22:33
--- OUTSIDE RECORDS SUMMARY | 2025-04-23 21:03 | XMS_ITS | CCD ---
Author Organization [facility] Care Team Providers Care Tabulating Clerk Name Role Phone KINJAL CHEW Unavailable Unavailable KINJAL CHEW Unavailable Unavailable Aichholz, Brooklynn Adi Primary Care Provider MD Hernandez Lares Jr Emergency Provider AICHHOLZ, SAP BUSINESS OBJECTS CONSULTANT BROOKLYNN Attending Unavailable AICHHOLZ, SAP BUSINESS OBJECTS CONSULTANT BROOKLYNN Consulting Unavailable AICHHOLZ, SAP BUSINESS OBJECTS CONSULTANT BROOKLYNN Primary Care Unavailable AICHHOLZ, SAP BUSINESS OBJECTS CONSULTANT BROOKLYNN Admitting Unavailable AICHHOLZ, SAP BUSINESS OBJECTS CONSULTANT BROOKLYNN Attending Unavailable AICHHOLZ, SAP BUSINESS OBJECTS CONSULTANT BROOK[place]NN Consulting Unavailable AICHHOLZ, SAP BUSINESS OBJECTS CONSULTANT BROOKLYNN Primary Care Unavailable AICHHOLZ, SAP BUSINESS OBJECTS CONSULTANT BROOKLYNN Admitting Unavailable AICHHOLZ, SAP BUSINESS OBJECTS CONSULTANT BROOKLYNN Primary Care Unavailable MISC, DR QUIGLEY Attending Unavailable MISC, DOCTOR Consulting Unavailable MISC, DOCTOR Admitting Unavailable Aichholz, Brooklynn J Primary Care Provider MD Hernandez Lares Jr Emergency Provider MD Kevin Sheehan Attending Provider Aichholz SATELLITE DISH INSTALLER, Brooklynn Unavailable Eusebio Schneider MD Primary Care Provider [phone] LIDA SUH Referring Unavailable AICHHOLZ, BROOKLYNN J [...] Unavailable Hernandez Lares Jr Admitting Unavailable Aichholz SATELLITE DISH INSTALLER, Brooklynn Unavailable Eusebio Schneider MD Primary Care Provider [phone] Aichholz SATELLITE DISH INSTALLER, Brooklynn Unavailable Aichholz SATELLITE DISH INSTALLER, Brooklynn Unavailable Aichholz RISK LEAD-SAP BUSINESS OBJECTS CONSULTANT, Brooklynn Joshi Primary Care Provider LIDA SUH Attending Unavailable AICHHOLZ, BROOKLYNN J Referring Unavailable AICHHOLZ, BROOKLYNN J Primary Care Unavailable SUHLIDA Attending Unavailable AICHHOLZ, BROOKLYNN J Referring Unavailable AICHHOLZ, BROOKLYNN J Primary Care Unavailable SUHLIDA MARIA G Attending Unavailable AICHHOLZ, BROOKLYNN J Referring Unavailable AICHHOLZ, BROOKLYNN J Primary Care Unavailable LIDA SUH Attending Unavailable AICHHOLZ, BROOKLYNN J Primary Care Unavailable Aichholz RISK LEAD-SAP BUSINESS OBJECTS CONSULTANT, Brooklynn J Primary Care Provider Aichholz RISK LEAD-SAP BUSINESS OBJECTS CONSULTANT, Brooklynn Adi Primary Care Provider VIV YEAGERA Attending Unavailable AICHHOLZ, BROOKLYNN Attending Unavailable AICHHOLZ, BROOKLYNN Attending Unavailable Aichholz RISK LEAD-SAP BUSINESS OBJECTS CONSULTANT, Brooklynn Adi Primary Care Provider LIDA SUH. Referring Unavailable AICHHOLZ, BROKOLYNN J Primary Care Unavailable AICHHOLZ, BROOKLYNN J Referring Unavailable AICHHOLZ, BROOKLYNN J Primary Care Unavailable LIDA SUH. Admitting Unavailable LIDA SUH. Attending Unavailable AICHHOLZ, BROOKLYNN J Primary Care Unavailable AICHHOLZ, BOROKLYNN J Referring Unavailable AICHHOLZ, BROOKLYNN J Primary Care Unavailable SUHLIDA. Admitting Unavailable SUHLIDA. Attending Unavailable AICHHOLZ, BROOKLYNN Adi Primary Care Unavailable SUHLIDA G Admitting Unavailable SUHLIDA Attending Unavailable SUHLIDA G Referring Unavailable AICHHOLZ, BROOKLYNN J Primary Care Unavailable Allergies Allergy Classification Reported Allergen(s) Allergy Type Date of Onset Reaction(s) Facility (4 sources) Acetaminophen; Translations: [acetaminophen] Drug Allergy 09-04-[address] [facility] (20 sources) HYDROcodone; Translations: [hydrocodone] Drug Allergy 09-04-19 GI intolerance, GI Disturbance [facility] (1 source) Acetaminophen / HYDROcodone Drug Allergy [facility] (20 sources) Acetaminophen / HYDROcodone; [...] April 04, 2020 October 22, 2022 2:09pm [id number] 200 actuat albuterol 0.09 mg/actuat metered dose [...] oral solution (1 source) alpha-Adrenergic Agonist, Uncompetitive K-nvouvv-D-aspartate Receptor Antagonist, Sigma-1 Agonist Start: 07-02-2024 End: 07-07-2024 take 10 mL by mouth four times daily as needed for cough tahgkwcbcgeiiwd-sbvvnbalmrrciyk-QF 30-2-10 MG/5ML syrup Indications: COVID Take 10 [...] Oxidation-Reduction Agent Start: 11-13-2023 End: 11-20-2023 franklyn.ph yy-petin-bvj (URO-MP) 118-10-40.8-36 mg capsule Take 1 capsule [...] Sig (Normalized) Sig (Original) polyethylene glycol 3350 44236 mg powder for oral solution (3 sources) [...] Unclassified (1 source) 52 yrs M (1970) [address] Onset: 11-29-2023 Unclassified (1 source) Elevated PSA [...] CYTOLOGYon 12-30-2024 CYTOLOGY CYTOL CYTOLOGY Cancelled Normal [facility] Comment on above: Order Comment: Wrong test ordered, see Cytology non-gynecologic [id number]. UROVYSION(TM) FOR BLADDERon 12-30-2024 UROVYSION FOR BLADDER CANCER SEE COMMENTS Normal [facility] Comment on above: Result Comment: Test Result [...] and a locus specific probe for 9p21 ([employer] [place], [place]). This test has been modified from the industrial illuminating engineer's instructions. Its performance characteristics were determined by [facility] in a manner consistent with CLIA requirements. This test has not been cleared or approved by the U.S. Food and Drug Administration. Reason for Referral Evaluate for urothelial carcinoma. Specimen Varies Source Urine, NOS Released By Calixto Gross M.D. Test Performed by: [place] [address] Mortgage Consultant: Te Moreau Ph.D.; CLIA# [id number] Performed By: #### U RVY #### [facility] (SDL) [address] [place] [address] VIR TBH VITAMIN D 25 OHon 2024 VITAMIN D 42 ng/mL [facility] Comment on above: <20 ng/mL Vit D def icient 20-<30 ng/mL Vit D insufficient 30-100 ng/mL Vit D sufficient >100 ng/mL Potential Toxicity [facility] ALL BASIC METABOLIC PANELon 10-12-2024 Anion gap [Moles/Vol] 12 mmol/L [facility] Calcium [Mass/Vol] 8.7 mg/dL 8.5 - 10. 1 mg/dL [facility] Chloride [Moles/Vol] 103 mmol/L 98 - 10 7 mmol/L [facility] CO2 [Moles/Vol] 30.6 mmol/L 21.0 - 32.0 mmol/L [facility] Creatinine [Mass/Vol] 1.09 mg/dL 0.70 - 1.30 mg/dL [facility] GFR/1.73 sq M.predicted CKD-EPI (S/P/Bld) [Vol rate/Area] >60 >=60 mL/min/1.73m 2 [facility] Glucose [Mass/Vol] 107 mg/dL High 74 - 106 mg/dL [facility] Interpretation and review of laboratory results Abnormal [facility] Potassium [Moles/Vol] 3.6 mmol/L 3.5 - 5.1 mmol/L [facility] Sodium [Moles/Vol] 142 mmol/L 136 - 145 mmol/L [facility] TBH EGFR-NON AF YEMENI >60 >=6 0 mL/min/1.73m 2 [facility] Urea nitrogen [Mass/Vol] 9 mg/dL 7.0 - 18.0 mg/dL [facility] Urea nitrogen/Creatinine [Mass ratio] 8.3 mg/mg [facility] CULTUREon 09-14-2024 UPPER RESPIRATORY CULTURE Upper Respiratory Culture [facility] UPPER RESPIRATORY CULTURE Routine respiratory anil [facility] UPPER RESPIRATORY CULTURE Performed at: [facility]ly [facility] UPPER RESPIRATORY CULTURE [address] [place], [place] [id number] [facility] UPPER RESPIRATORY CULTURE Mortgage Consultant: Juan Francisco Madison PhD, Phone: [phone] [facility] HEMO[facility] A1Con 025 Glucose [Mass/Vol] 97 mg/dL [facility] HbA1c (Bld) [Mass fraction] 5 % 4.5 - 6.2 % [facility] Comment on above: ADA RECOMMENDED LIMI T 4.0 - 6.0 ADA THERAPEUTIC TARGET < 7.0 ACTION SUGGESTED > 7.0 [facility] ALL LIPID PROFILE (FASTING)o n 08-13-2024 CHOL HDL RATIO 2.9 [facility] Comment on above: 3.3 - 4.4 LOW RISK 4.4 - 7.1 AVERAGE RISK 7.1 - 11.0 MODERATE RISK >11.0 HIGH RISK Cholesterol [Mass/Vol] 138 mg/dL NINF - 200 mg/dL [facility] Cholesterol in HDL [Mass/Vol] 47 mg/dL 40 - 60 mg/dL [facility] Comment on above: > or =60 mg/dl - LOW CARDIOVASCULAR RISK <40 mg/dl - HIGH CARDIOVASCULAR RISK Magnesium [Mass/Vol] 76.4 mg/dL [facility] Comment on above: <100 mg/dl OPTIMAL 100-129 mg/dl NEAR OR ABOVE OPTIMAL 130-159 mg/dl BORDERLINE HIGH 160-189 mg/dl HIGH >190 mg/dl VERY HIGH Magnesium [Mass/Vol] 14.6 mg/dL [facility] Triglyceride [Mass/Vol] 73 mg/dL NINF - 150 mg/dL [facility] ALL THYROID STIM HORMONEon 0 08-13-2024 TSH Qn 2.102 m[IU]/L [facility]CF CMP (CMP) (FOR REMOTE FH C USE)on 08-13-2024 Albumin [Mass/Vol] 3.3 g/dL Low 3.4 - 5.0 g/dL [facility] ALBUMIN GLOBULIN RATIO 1 [facility] ALP [Catalytic activity/Vol] 93 U/L 46 - 116 U/L [facility] ALT [Catalytic activity/Vol] 38 U/L 16 - 63 U/L [facility] Anion gap [Moles/Vol] 7.8 mmol/L [facility] AST [Catalytic activity/Vol] 19 U/L 15 - 37 U/L [facility] Bilirubin [Mass/Vol] 0.7 mg/dL 0.2 - 1 .0 mg/dL [facility] Calcium [Mass/Vol] 8.3 mg/dL Low 8.5 - 10. 1 mg/dL [facility] Chloride [Moles/Vol] 106 mmol/L 98 - 10 7 mmol/L [facility] CO2 [Moles/Vol] 32.1 mmol/L High 21.0 - 32.0 mmol/L [facility] Creatinine [Mass/Vol] 1.14 mg/dL 0.70 - 1.30 mg/dL [facility] GFR/1.73 sq M.predicted CKD-EPI (S/P/Bld) [Vol rate/Area] >60 >=60 mL/min/1.73m 2 [facility] Globulin (S) [Mass/Vol] 3.3 g/dL N [facility] Glucose [Mass/Vol] 119 mg/dL High 74 - 106 mg/dL [facility] Interpretation and review of laboratory results Abnormal [facility] Potassium [Moles/Vol] 3.9 mmol/L 3.5 - 5.1 mmol/L [facility] Protein [Mass/Vol] 6.6 g/dL 6.4 - 8.2 g/dL [facility] Sodium [Moles/Vol] 142 mmol/L 136 - 145 mmol/L [facility] TBH EGFR-NON AF YEMENI >60 >=6 0 mL/min/1.73m 2 [facility] Urea nitrogen [Mass/Vol] 13 mg/dL 7.0 - 18.0 mg/dL [facility] Urea nitrogen/Creatinine [Mass ratio] 11.4 mg/mg [facility] No Panel Informationon 08-13 [facility] Cytologyon 06-17-2024 Cytology Normal [facility] Comment on above: Result Comment: [facility] [address] [place] [address] Cytology Consultation Patient Name:RENO ABREU:1970 (Age: 53)Gender:MTaken:06/17/2024eported:06/18/2024 14:16Physician(s):Lida Suh M.D. ([phone])Copy To: Rec. #:[id number]: #[id number] Final Cytologic Diagnosis Urine: Negative for high-grade urothelial cell carcinoma. 06/18/2024 Interpretation performed at [facility], [address] [place] [address], License number: [id number].Electronically Signed Out By Trevin Mallory MD Clinical History Malignant neoplasm of overlapping sites of bladder (CMS-HCC) (C67.8) Gross Description Received was 50 mL of cloudy yellow fluid labeled as [place], urine .Preservative added. 25 mL used for Cytology. See UroV[employer] report. Source of Specimen Urine Non HEALTH EDUCATION ASSISTANT ThinPrep Fee Code(s): 1; 61989 Reference Lab Test IDon 12-0 UROVYSION FOR BLADDER CANCER SEE COMMENTS 06/25/2024 12:33 PM Normal [facility] Comment on above: Result Comment: NOTE [...] specific probe for 9p21 ([employer] [place], [place]). This test has been modified from the industrial illuminating engineer's instructions. Its performance characteristics were determined by [facility] in a manner consistent with CLIA requirements. This test has not been cleared or approved by the U.S. Food and Drug Administration. Reason for Referral Evaluate for urothelial carcinoma. Specimen Varies Source Urine, NOS Released By See Note Calixto Gross MWicho. Test Performed by: [facility] [place] [address] Mortgage Consultant: Te Moreau Ph.D.; CLIA# [id number] Performed By: #### 3 0896-5 #### [facility] ([id number]) [address] [place] [address] Cytologyon 03-18-2024 Cytology Normal [facility] Comment on above: Result Comment: [employer] [facility] [address] [place] [address] Cytology Consultation Patient Name:RENO ABREU:1970 (Age: 53)Gender:MTaken:4Reported:03/19/2024 17:33Physician(s):Lida Suh M.D. ([phone])Copy To: Rec. #:[id number]: #[id number] Final Cytologic Diagnosis Urine clean catch: Negative for high-grade urothelial cell carcinoma. ao/03/19/2024 Interpretation performed at [facility], [address] [place] [address], License number: [id number].Electronically Signed Out By George Smith MD Clinical History Malignant neoplasm of overlapping sites of bladder ([facility]-HCC) C67.8 Gross Description Received was 70mL of cloudy nannette fluid unfixed labeled as [place], Urine clean catch . 35mL used for Cytology. See UroVysion report. Source of Specimen Urine clean catch Non HEALTH EDUCATION ASSISTANT [employer]in[employer] Fee Code(s): 1; 77750 Reference Lab Test IDon 09-0 UROVYSION FOR BLADDER CANCER SEE COMMENTS 03/26/2024 08:20 AM Normal [facility] Comment on above: Result Comment: NOTE [...] specific probe for 9p21 ([employer] [place], [place]). This test has been modified from the industrial illuminating engineer's instructions. Its performance characteristics were determined by [facility] in a manner consistent with CLIA requirements. This test has not been cleared or approved by the U.S. Food and Drug Administration. Reason for Referral Evaluate for urothelial carcinoma. Specimen Varies Source Urine, NOS Released By Adrianna Proctor M.D. Test Performed by: [place] [address] Mortgage Consultant: Te Moreau Ph.D.; CLIA# [id number] Performed By: #### 3 0896-5 #### [facility] ([id number]) [address] [place] [address] Prostate specific Ag [Mass/V ol]on 03-09-2024 PROSTATIC SPEC ANT 2.12 ng/mL Normal 0.00-4.00 [facility] Comment on above: Result Comment: The method used for this test is [employer] [place] DXI chemiluminescent immunoassay. Values obtained by different assay methods cannot be used interchangeably. Performed By: #### 2 857-1 #### [facility] ([id number]) [address], [address] [place] [address] URINE CULTUREon 03-09-2024 Bacteria identified Cx Nom (U) CULTURE RESULTS <10,000 ORGANISMS/ML NORMAL URO GENITAL ANIL Normal [facility] Comment on above: Performed By: #### 6 30-4 #### [facility] ([id number]) [address], [address] [place] [address] Measure post void residualon 01-29-2024 Volume 37ml [facility] BASIC METABOLIC PANLon 12-01 Anion gap [Moles/Vol] 6 mmol/L Normal 5-15 [facility] Comment on above: Performed By: #### C BCA, BMP, , 2776-07 #### [facility] ([id number]) [address], [address] [place] [address] Calcium [Mass/Vol] 8.0 mg/dL Low 8.5-10.5 [facility] Comment on above: Performed By: #### C BCA, BMP, , 2776-07 #### [facility] ([id number]) [address], [address] [place] [address] Chloride [Moles/Vol] 104 mmol/L Normal 98-109 [facility] Comment on above: Performed By: #### C BCA, BMP, , 2776-07 #### [facility] ([id number]) [address], [address] [place] [address] CO2 [Moles/Vol] 28 mmol/L Normal 22-32 [facility] Comment on above: Performed By: #### C BCA, BMP, , 2776-07 #### [facility] ([id number]) [address], [address] [place] [address] Creatinine [Mass/Vol] 0.91 mg/dL Normal 0.60-1.30 [facility] Comment on above: Result Comment: METH OD TRACEABLE TO IDMS STANDARD Performed By: #### C BCA, BMP, , 2776-07 #### [facility] ([id number]) [address], [address] [place] [address] eGFR (CKD-EPI) NON-RACE DEPENDENT >90 Normal >59 [facility] Comment on above: Result Comment: Reported eGFR is based on the CKD-EPI 2020 equation that does not use a race coefficient. Performed By: #### C BCA, BMP, , 2776-07 #### [facility] ([id number]) [address], [address] [place] [address] Glucose [Mass/Vol] 112 mg/dL High 65-99 [facility] Comment on above: Performed By: #### C JOHN, BMP, , 2776-07 #### [facility] ([id number]) [address], [address] [place] [address] Potassium [Moles/Vol] 3.8 mmol/L Normal 3.5-5.0 [facility] Comment on above: Performed By: #### C JOHN, BMP, , 2776-07 #### [facility] ([id number]) [address], [address] [place] [address] Sodium [Moles/Vol] 138 mmol/L Normal 134-146 [facility] Comment on above: Performed By: #### C JOHN, BMP, , 2776-07 #### [facility] ([id number]) [address], [address] [place] [address] Urea nitrogen [Mass/Vol] 15 mg/dL Normal 5-23 [facility] Comment on above: Performed By: #### C JOHN, BMP, , 2776-07 #### [facility] ([id number]) [address], [address] [place] [address] CBC AND AUTO DIFFon 05-20-20 24 ABSOLUTE BASOPHIL 0.0 X10E9/L Normal 0.0-0.2 [facility] Comment on above: Performed By: #### C JOHN, BMP, , 2776-07 #### [facility] ([id number]) [address], [address] [place] [address] ABSOLUTE NEUTROPHIL 3.7 X10E9/L Normal 1.5-6.6 [facility] Comment on above: Performed By: #### C BCA, BMP, , 2776-07 #### [facility] ([id number]) [address], [address] [place] [address] Basophils/100 WBC (Bld) 0.4 % Normal [facility] Comment on above: Performed By: #### C JOHN, BMP, , 2776-07 #### [facility] ([id number]) [address], [address] [place] [address] Eosinophils (Bld) [#/Vol] 0.2 10*3/uL Normal 0.0-0.4 [facility] Comment on above: Performed By: #### C BCA, BMP, , 2776-07 #### [facility] ([id number]) [address], [address] [place] [address] Eosinophils/100 WBC (Bld) 3.5 % Normal [facility] Comment on above: Performed By: #### C BCA, BMP, , 2776-07 #### [facility] ([id number]) [address], [address] [place] [address] Erythrocyte distribution width (RBC) [Ratio] 12.5 % Normal 11.5-15.0 [facility] Comment on above: Performed By: #### C BCA, BMP, , 2776-07 #### [facility] ([id number]) [address], [address] [place] [address] Hematocrit (Bld) [Volume fraction] 40.6 % Normal 39-49 [facility] Comment on above: Performed By: #### C BCA, BMP, , 2776-07 #### [facility] ([id number]) [address], [address] [place] [address] Hemoglobin (Bld) [Mass/Vol] 13.9 g/dL Normal 13.0-17.0 [facility] Comment on above: Performed By: #### C BCA, BMP, , 2776-07 #### [facility] ([id number]) [address], [address] [place] [address] Lymphocytes (Bld) [#/Vol] 1.5 10*3/uL Normal 1.0-3.5 [facility] Comment on above: Performed By: #### C JOHN, ALEXYS, , 2776-07 #### [facility] ([id number]) [address], [address] [place] [address] Lymphocytes/100 WBC (Bld) 25.2 % Normal [facility] Comment on above: Performed By: #### C JOHN, ALEXYS, , 2776-07 #### [facility] ([id number]) [address], [address] [place] [address] MCH (RBC) [Entitic mass] 30.6 pg Normal 27-34 [facility] Comment on above: Performed By: #### C JOHN, BMP, , 2776-07 #### [facility] ([id number]) [address], [address] [place] [address] MCHC (RBC) [Mass/Vol] 34.3 g/dL Normal 32-36 [facility] Comment on above: Performed By: #### C ALEXYS LOPEZ, , 2776-07 #### [facility] ([id number]) [address], [address] [place] [address] MCV (RBC) [Entitic vol] 89 fL Normal 80-100 [facility] Comment on above: Performed By: #### C JOHN, BMP, , 2776-07 #### [facility] ([id number]) [address], [address] [place] [address] Monocytes (Bld) [#/Vol] 0.5 10*3/uL Normal 0-0.9 [facility] Comment on above: Performed By: #### C JOHN, BMP, , 2776-07 #### [facility] ([id number]) [address], [address] [place] [address] Monocytes/100 WBC (Bld) 7.9 % Normal [facility] Comment on above: Performed By: #### C BCA, BMP, , 2776-07 #### [facility] ([id number]) [address], [address] [place] [address] Neutrophils/100 WBC (Bld) 63.0 % Normal [facility] Comment on above: Performed By: #### C BCA, BMP, , 2776-07 #### [facility] ([id number]) [address], [address] [place] [address] Platelet mean volume (Bld) [Entitic vol] 7.8 fL Normal 7-12 [facility] Comment on above: Performed By: #### C BCA, BMP, , 2776-07 #### [facility] ([id number]) [address], [address] [place] [address] Platelets (Bld) [#/Vol] 193 10*3/uL Normal 150-450 [facility] Comment on above: Performed By: #### C BCA, BMP, , 2776-07 #### [facility] ([id number]) [address], [address] [place] [address] RBC COUNT 4.55 X10E12/L Normal 4.10-5.70 [facility] Comment on above: Performed By: #### C BCA, BMP, , 2776-07 #### [facility] ([id number]) [address], [address] [place] [address] WBC (Bld) [#/Vol] 5.9 10*3/uL Normal 4.0-11.0 [facility] Comment on above: Performed By: #### C JOHN, BMP, , 2776-07 #### [facility] ([id number]) [address], [address] [place] [address] MAGNESIUMon 12-02-2023 Magnesium [Mass/Vol] 1.8 mg/dL Normal 1.8-2.6 [facility] Comment on above: Performed By: #### C JOHN, BMP, , 2776-07 #### [facility] ([id number]) [address], [address] [place] [address] PHOSPHORUSon 12-02-2023 Phosphate [Mass/Vol] 3.2 mg/dL Normal 2.4-4.9 [facility] Comment on above: Performed By: #### C JOHN, BMP, , 2776-07 #### [facility] ([id number]) [address] [place] [address] BASIC METABOLIC PANLon 11-30 Anion gap [Moles/Vol] 6 mmol/L Normal 5-15 [facility] Comment on above: Performed By: #### C JOHN, BMP, , 2776-07 #### [facility] ([id number]) [address] [place] [address] Calcium [Mass/Vol] 8.2 mg/dL Low 8.5-10.5 [facility] Comment on above: Performed By: #### C BCA, BMP, , 2776-07 #### [facility] ([id number]) [address], [address] [place] [address] Chloride [Moles/Vol] 104 mmol/L Normal 98-109 [facility] Comment on above: Performed By: #### C BCA, BMP, , 2776-07 #### [facility] ([id number]) [address], [address] [place] [address] CO2 [Moles/Vol] 30 mmol/L Normal 22-32 [facility] Comment on above: Performed By: #### C JOHN, BMP, , 2776-07 #### [facility] ([id number]) [address], [address] [place] [address] Creatinine [Mass/Vol] 0.90 mg/dL Normal 0.60-1.30 [facility] Comment on above: Result Comment: METH OD TRACEABLE TO IDMS STANDARD Performed By: #### C JOHN, BMP, , 2776-07 #### [facility] ([id number]) [address], [facility] [address] [place] [address] eGFR (CKD-EPI) NON-RACE DEPENDENT >90 Normal >59 [facility] Comment on above: Result Comment: Reported eGFR is based on the CKD-EPI 2020 equation that does not use a race coefficient. Performed By: #### C BCA, BMP, , 2776-07 #### [facility] ([id number]) [address], [address] [place] [address] Glucose [Mass/Vol] 88 mg/dL Normal 65-99 [facility] Comment on above: Performed By: #### C JOHN, BMP, , 2776-07 #### [facility] ([id number]) [address], [address] [place] [address] Potassium [Moles/Vol] 3.6 mmol/L Normal 3.5-5.0 [facility] Comment on above: Performed By: #### C BCA, BMP, , 2776-07 #### [facility] ([id number]) [address], [address] [place] [address] Sodium [Moles/Vol] 140 mmol/L Normal 134-146 [facility] Comment on above: Performed By: #### C BCA, BMP, , 2776-07 #### [facility] ([id number]) [address], [address] [place] [address] Urea nitrogen [Mass/Vol] 10 mg/dL Normal 5-23 [facility] Comment on above: Performed By: #### C JOHN, BMP, , 2776-07 #### [facility] ([id number]) [address], [address] [place] [address] CBC AND AUTO DIFFon 12-01-19 24 ABSOLUTE BASOPHIL 0.0 X10E9/L Normal 0.0-0.2 [facility] Comment on above: Performed By: #### C JOHN, BMP, , 2776-07 #### [facility] ([id number]) [address], [address] [place] [address] ABSOLUTE NEUTROPHIL 4.2 X10E9/L Normal 1.5-6.6 [facility] Comment on above: Performed By: #### C JOHN, BMP, , 2776-07 #### [facility] ([id number]) [address], [address] [place] [address] Basophils/100 WBC (Bld) 0.5 % Normal [facility] Comment on above: Performed By: #### C JOHN, BMP, , 2776-07 #### [facility] ([id number]) [address], [address] [place] [address] Eosinophils (Bld) [#/Vol] 0.2 10*3/uL Normal 0.0-0.4 [facility] Comment on above: Performed By: #### C BCA, BMP, , 2776-07 #### [facility] ([id number]) [address], [address] [place] [address] Eosinophils/100 WBC (Bld) 2.8 % Normal [facility] Comment on above: Performed By: #### C BCA, BMP, , 2776-07 #### [facility] ([id number]) [address], [address] [place] [address] Erythrocyte distribution width (RBC) [Ratio] 12.9 % Normal 11.5-15.0 [facility] Comment on above: Performed By: #### C JOHN, BMP, , 2776-07 #### [facility] ([id number]) [address], [address] [place] [address] Hematocrit (Bld) [Volume fraction] 43.1 % Normal 39-49 [facility] Comment on above: Performed By: #### C JOHN, BMP, , 2776-07 #### [facility] ([id number]) [address], [address] [place] [address] Hemoglobin (Bld) [Mass/Vol] 14.9 g/dL Normal 13.0-17.0 [facility] Comment on above: Performed By: #### C JOHN, BMP, , 2776-07 #### [facility] ([id number]) [address], [address] [place] [address] Lymphocytes (Bld) [#/Vol] 1.5 10*3/uL Normal 1.0-3.5 [facility] Comment on above: Performed By: #### C JOHN, BMP, , 2776-07 #### [facility] ([id number]) [address], [address] [place] [address] Lymphocytes/100 WBC (Bld) 23.7 % Normal [facility] Comment on above: Performed By: #### C BCA, BMP, , 2776-07 #### [facility] ([id number]) [address], [address] [place] [address] MCH (RBC) [Entitic mass] 30.8 pg Normal 27-34 [facility] Comment on above: Performed By: #### C JOHN, ALEXYS, , 2776-07 #### [facility] ([id number]) [address], [address] [place] [address] MCHC (RBC) [Mass/Vol] 34.5 g/dL Normal 32-36 [facility] Comment on above: Performed By: #### C JOHN, BMP, , 2776-07 #### [facility] ([id number]) [address], [address] [place] [address] MCV (RBC) [Entitic vol] 89 fL Normal 80-100 [facility] Comment on above: Performed By: #### Richa LOPEZ, BMP, , 2776-07 #### [facility] ([id number]) [address], [address] [place] [address] Monocytes (Bld) [#/Vol] 0.5 10*3/uL Normal 0-0.9 [facility] Comment on above: Performed By: #### C JOHN, ALEXYS, , 2776-07 #### [facility] ([id number]) [address], [address] [place] [address] Monocytes/100 WBC (Bld) 8.0 % Normal [facility] Comment on above: Performed By: #### Richa LOPEZ, BMP, , 2776-07 #### [facility] ([id number]) [address], [address] [place] [address] Neutrophils/100 WBC (Bld) 65.0 % Normal [facility] Comment on above: Performed By: #### C JOHN, BMP, , 2776-07 #### [facility] ([id number]) [address], [address] [place] [address] Platelet mean volume (Bld) [Entitic vol] 7.8 fL Normal 7-12 [facility] Comment on above: Performed By: #### C JOHN, BMP, , 2776-07 #### [facility] ([id number]) [address], [address] [place] [address] Platelets (Bld) [#/Vol] 193 10*3/uL Normal 150-450 [facility] Comment on above: Performed By: #### C JOHN, BMP, , 2776-07 #### [facility] ([id number]) [address], [address] [place] [address] RBC COUNT 4.83 X10E12/L Normal 4.10-5.70 [facility] Comment on above: Performed By: #### C JOHN, BMP, , 2776-07 #### [facility] ([id number]) [address], [address] [place] [address] WBC (Bld) [#/Vol] 6.4 10*3/uL Normal 4.0-11.0 [facility] Comment on above: Performed By: #### C JOHN, BMP, , 2776-07 #### [facility] ([id number]) [address], [address] [place] [address] Complete Blood Count Auto Di ffon 12-01-2023 Basophils (Bld) [#/Vol] 0.0 10*3/uL Normal 0.0-0.2 [facility] Comment on above: Result Comment: PERF ORMED BY: [place] [address] PATHOLOGIST POLYSOMNOGRAPHY TECHNICIAN HIREN KAPLAN M.D. Performed By: #### C BC, CMP #### [address] [address] [facility] Basophils/100 WBC (Bld) 0.6 % Normal . T [facility] Comment on above: Performed By: #### C BC, CMP #### [facility] [address] Eosinophils (Bld) [#/Vol] 0.2 10*3/uL Normal 0.0-0.45 [facility] Comment on above: Performed By: #### C BC, CMP #### [address] Eosinophils/100 WBC (Bld) 3.0 % Normal . [facility] Comment on above: Performed By: #### C BC, CMP #### [address] Erythrocyte distribution width (RBC) [Ratio] 12.9 % Normal 12.0-14.8 [facility] Comment on above: Performed By: #### C BC, CMP #### [address] Hematocrit (Bld) [Volume fraction] 43.0 % Normal 38.8-50.0 [facility] Comment on above: Performed By: #### C BC, CMP #### [address] Hemoglobin (Bld) [Mass/Vol] 14.8 g/dL Normal 13.0-17.0 [facility] Comment on above: Performed By: #### C BC, CMP #### [address] Lymphocytes (Bld) [#/Vol] 1.8 10*3/uL Normal 1.00-4.8 [facility] Comment on above: Performed By: #### C BC, CMP #### [address] Lymphocytes/100 WBC (Bld) 26.4 % Normal . [facility] Comment on above: Performed By: #### C BC, CMP #### [address] MCH (RBC) [Entitic mass] 30.8 pg Normal 27.5-35.2 [facility] Comment on above: Performed By: #### C BC, CMP #### [address] MCV (RBC) [Entitic vol] 89.5 fL Normal 83.5-101 [facility] Comment on above: Performed By: #### C BC, CMP #### [address] Mean Corpuscular HGB Conc 34.4 g/dL Normal 32.5-35.6 [facility] Comment on above: Performed By: #### C BC, CMP #### [address] Monocytes (Bld) [#/Vol] 0.6 10*3/uL Normal 0.0-0.8 [facility] Comment on above: Performed By: #### C BC, CMP #### [address] Monocytes/100 WBC (Bld) 18.12 % Normal 0.00-20.00 [facility] Comment on above: Performed By: #### C BC, CMP #### [address] Monocytes/100 WBC (Bld) 8.8 % Normal . [facility] Comment on above: Performed By: #### C BC, CMP #### [address] Neutrophils (Bld) [#/Vol] 4.1 10*3/uL Normal 1.8-7.7 [facility] Comment on above: Performed By: #### C BC, CMP #### [address] Neutrophils/100 WBC (Bld) 61.2 % Normal . [facility] Comment on above: Performed By: #### C BC, CMP #### [address] NRBC% 0.1 /100{WBC} Normal 0-0.5 [facility] Comment on above: Performed By: #### C BC, CMP #### [address] Platelet mean volume (Bld) [Entitic vol] 7.8 fL Normal 6.6-10.1 [facility] Comment on above: Performed By: #### C BC, CMP #### [address] Platelets (Bld) [#/Vol] 229 10*3/uL Normal 150-450 [facility] Comment on above: Performed By: #### C BC, CMP #### [address] RBC (Bld) [#/Vol] 4.80 10*6/uL Normal 3.90-5.60 [facility] Comment on above: Performed By: #### C BC, CMP #### [address] WBC (Bld) [#/Vol] 6.7 10*3/uL Normal 4.1-10.5 [facility] Comment on above: Performed By: #### C BC, CMP #### [address] Comprehensive Metabolic Pane demetrius 12-01-2023 Albumin [Mass/Vol] 3.7 g/dL Normal 3.5-5.7 [facility] Comment on above: Performed By: #### C BC, CMP #### [address] Albumin/Globulin [Mass ratio] 1.4 {ratio} Normal [facility] Comment on above: Performed By: #### C BC, CMP #### [address] ALP [Catalytic activity/Vol] 89 U/L Normal 34-104 [facility] Comment on above: Performed By: #### C BC, CMP #### [address] ALT [Catalytic activity/Vol] 21 U/L Normal 7-52 [facility] Comment on above: Performed By: #### C BC, CMP #### [address] Anion gap [Moles/Vol] 8.7 mmol/L Normal 6.0-15.0 [facility] Comment on above: Performed By: #### C BC, CMP #### [address] AST [Catalytic activity/Vol] 20 U/L Normal 13-39 [facility] Comment on above: Performed By: #### C BC, CMP #### [address] Bilirubin [Mass/Vol] 0.5 mg/dL Normal 0.3-1.0 [facility] Comment on above: Performed By: #### C BC, CMP #### [address] Calcium [Mass/Vol] 8.6 mg/dL Normal 8.6-10.3 [facility] Comment on above: Performed By: #### C BC, CMP #### [address] Chloride [Moles/Vol] 105 mmol/L Normal 98-107 [facility] Comment on above: Performed By: #### C BC, CMP #### [place] [id number] [place] CO2 [Moles/Vol] 26.9 mmol/L Normal 21.0-31.0 [facility] Comment on above: Performed By: #### C BC, CMP #### [place] [id number] [place] Creatinine [Mass/Vol] 0.91 mg/dL Normal 0.70-1.30 [facility] Comment on above: Performed By: #### C BC, CMP #### [place] [id number] [place] Creatinine Clr Calc Pharmacy 127.55 Normal [facility] Comment on above: Result Comment: PERF ORMED BY: [place] [address] PATHOLOGIST POLYSOMNOGRAPHY TECHNICIAN HIREN KAPLAN M.D. Performed By: #### C BC, CMP #### [address] GFR/1.73 sq M.predicted MDRD (S/P/Bld) [Vol rate/Area] mL/min/{1.73_m2} Normal [facility] Comment on above: Performed By: #### C BC, CMP #### [address] Globulin (S) [Mass/Vol] 2.6 g/dL Normal T [facility] Comment on above: Performed By: #### C BC, CMP #### [address] Glucose [Mass/Vol] 101 mg/dL High 70-100 [facility] Comment on above: Result Comment: [facility] Glucose Reference Range is dependent on time and content of last meal. Glucose of more than 200 mg/dL in a nonstressed, ambulatory subject supports the diagnosis of Diabetes Mellitus. ADA recommended reference range Performed By: #### C BC, CMP #### [address] Potassium [Moles/Vol] 3.6 mmol/L Normal 3.5-5.1 [facility] Comment on above: Performed By: #### C BC, CMP #### [address] Protein [Mass/Vol] 6.3 g/dL Low 6.4-8.9 [facility] Comment on above: Performed By: #### C BC, CMP #### [address] Sodium [Moles/Vol] 137 mmol/L Normal 136-145 [facility] Comment on above: Performed By: #### C BC, CMP #### [address] Urea nitrogen [Mass/Vol] 14 mg/dL Normal 7-25 [facility] Comment on above: Performed By: #### C BC, CMP #### [place] [id number] [place] Dipstick and Microscopicon 0 12-01-2023 Appearance (U) Turbid Critically abnormal Clear [facility] Comment on above: Order Comment: Name Collection Type:: Clean-Voided Midstream Performed By: #### A DDONUAPLUS, CUU #### [address] Bacteria,Urine None Seen Normal None Seen [facility] Comment on above: Order Comment: Name Collection Type:: Clean-Voided Midstream Result Comment: PERF ORMED BY: [place] [address] PATHOLOGIST POLYSOMNOGRAPHY TECHNICIAN HIREN KAPLAN M.D. Performed By: #### A DDONUAPLUS, CUU #### [address] Bilirubin,Urine Normal Negative [facility] Comment on above: Order Comment: Name Collection Type:: Clean-Voided Midstream Result Comment: Unab le to obtain accurate result due to color interference. Performed By: #### A DDONUAPLUS, CUU #### [address] Color (U) Red Critically abnormal Yellow [facility] Comment on above: Order Comment: Name Collection Type:: Clean-Voided Midstream Performed By: #### A DDONUAPLUS, CUU #### [address] Glucose Ql (U) Normal Normal [facility] Comment on above: Order Comment: Name Collection Type:: Clean-Voided Midstream Result Comment: Unab le to obtain accurate result due to color interference. Performed By: #### A DDONUAPLUS, CUU #### [place] [id number] [place] Ketones Ql (U) Normal Negative [facility] Comment on above: Order Comment: Name Collection Type:: Clean-Voided Midstream Result Comment: Unab le to obtain accurate result due to color interference. Performed By: #### A DDONUAPLUS, CUU #### [place] [id number] [place] Leukocyte esterase Test strip Ql (U) Normal Negative [facility] Comment on above: Order Comment: Name Collection Type:: Clean-Voided Midstream Result Comment: Unab le to obtain accurate result due to color interference. Performed By: #### A DDONUAPLUS, CUU #### [facility] [address] [place] [address] [place] Nitrite,Urine Normal Negative [facility] Comment on above: Order Comment: Name Collection Type:: Clean-Voided Midstream Result Comment: Unab le to obtain accurate result due to color interference. Performed By: #### A DDONUAPLUS, CUU #### [facility] [address] Occult Blood,Urine Normal Negative [facility] Comment on above: Order Comment: Name Collection Type:: Clean-Voided Midstream Result Comment: Unab le to obtain accurate result due to color interference. Performed By: #### A DDONUAPLUS, CUU #### [place] [id number] [place] pH,Urine Normal 5.0-9.0 [facility] Comment on above: Order Comment: Name Collection Type:: Clean-Voided Midstream Result Comment: Unab le to obtain accurate result due to color interference. Performed By: #### A DDONUAPLUS, CUU #### [place] [id number] [place] Protein,Urine Normal Negative [facility] Comment on above: Order Comment: Name Collection Type:: Clean-Voided Midstream Result Comment: Unab le to obtain accurate result due to color interference. Performed By: #### A DDONUAPLUS, CUU #### [place] [id number] [place] RBC,Urine Innumerable High 0-4 [facility] Comment on above: Order Comment: Name Collection Type:: Clean-Voided Midstream Performed By: #### A DDONUAPLUS, CUU #### [place] [id number] [place] Specificy [place],Urine 1.010 Normal 1.001-1.030 [facility] Comment on above: Order Comment: Name Collection Type:: Clean-Voided Midstream Performed By: #### A DDONUAPLUS, CUU #### [address] Squamous Epithelial Cell,Urine None Seen Normal 0-2 [facility] Comment on above: Order Comment: Name Collection Type:: Clean-Voided Midstream Performed By: #### A DDONUAPLUS, CUU #### [address] Urobilinogen,Urine Normal Normal [facility] Comment on above: Order Comment: Name Collection Type:: Clean-Voided Midstream Result Comment: Unab le to obtain accurate result due to color interference. Performed By: #### A DDONUAPLUS, CUU #### [address] WBC,Urine 1-2 Normal 0-4 [facility] Comment on above: Order Comment: Name Collection Type:: Clean-Voided Midstream Performed By: #### A DDONUAPLUS, CUU #### [address] MAGNESIUMon 12-01-2023 Magnesium [Mass/Vol] 1.9 mg/dL Normal 1.8-2.6 [facility] Comment on above: Performed By: #### C JOHN, BMP, 58864-6, 2777-1 #### [facility] ([id number]) [address] [place] [address] PHOSPHORUSon 12-01-2023 Phosphate [Mass/Vol] 3.3 mg/dL Normal 2.4-4.9 [facility] Comment on above: Performed By: #### C BCA, BMP, , 2777-1 #### [facility] ([id number]) [address] [place] [address] Partial Thromboplastin Timeo 12-01-2023 aPTT Coag (Bld) [Time] 31.9 s Normal 25.1-36.5 [facility] Comment on above: Order Comment: REDRA W: PRIOR SAMPLE QNS Result Comment: A he matocrit value greater than 55% may lead to inaccurate results in coagulation testing. Patients having hematocrit values >55% require a special collection tube for coagulation studies. Please contact the laboratory at [phone] for redraw instructions. PERFORMED BY: [place] [id number] PATHOLOGIST POLYSOMNOGRAPHY TECHNICIAN HIREN KAPLAN M.D. Performed By: #### P TT, PT #### [address] Prothrombin Time INRon 11-30 INR Coag (PPP) [Relative time] 1.0 {INR} Normal [facility] Comment on above: Order Comment: [...] By: #### P TT, PT #### [address] PT Coag (PPP) [Time] 11.9 s Normal 9.0-12.9 [facility] Comment on above: Order Comment: REDRA W: PRIOR SAMPLE QNS Result Comment: A he matocrit value greater than 55% may lead to inaccurate results in coagulation testing. Patients having hematocrit values >55% require a special collection tube for coagulation studies. Please contact the laboratory at [phone] for redraw instructions. Performed By: #### P TT, PT #### [place] [id number] [facility] Urine Cultureon 12-01-2023 Bacteria identified Cx Nom (U) No Growth 2 Days PERFORMED BY: [place] [id number] PATHOLOGIST POLYSOMNOGRAPHY TECHNICIAN HIREN KAPLAN M.D. Normal [facility] Comment on above: Performed By: #### A DDONUAPLUS, U #### [facility] [address] Reference Lab Test IDon 05-0 UROVYSION FOR BLADDER CANCER SEE COMMENTS 11/21/2023 08:19 AM [facility] Comment on above: Result Comment: NOTE Test [...] specific probe for 9p21 ([employer] [place], [place]). This test has been modified from the industrial illuminating engineer's instructions. Its performance characteristics were determined by [facility] in a manner consistent with CLIA requirements. This test has not been cleared or approved by the U.S. Food and Drug Administration. Reason for Referral Evaluate for urothelial carcinoma. Specimen Varies Source Urine, NOS Released By Adrianna Proctor M.D. Test Performed by: [address] [address] Mortgage Consultant: Bear Mares M.D. Ph.D.; CLIA# [id number] URINE CULTUREon 11-13-2023 Bacteria identified Cx Nom (U) CULTURE RESULTS NO GROWTH AT <1000 CFU/mL [facility] Comment on above: Performed By: #### 6 30-4 #### [facility] ([id number]) [address] [facility], [address] [place] [address] BOX TEST SENT OUTon 09-19-19 23 SENT TO REF LAB 09/18/2022 Normal [facility] Comment on above: Performed By: #### B OX #### [facility] [address] [place] [address] [address] Pablo Blanchard Aspartate aminotransferase [ Enzymatic activity/volume] in Serum or PlasmaOrdered By: Hernandez Lares on 09-04-2022 AST [Catalytic activity/Vol] 22 U/L 10-42 [facility] Automated erythrocytes count in urine sediment (number/area)Ordered By: Hernandez Lares on 09-04-2022 RBC Auto (Urine sed) [#/Area] 3-4 [HPF] 0-4 [facility] Automated leukocytes count i n urine sediment (number/area)Ordered By: Hernandez Lares on 09-04-2022 WBC Auto (Urine sed) [#/Area] 3-4 [HPF] 0-4 [facility] Basophils Auto (Bld) [#/Vol] Ordered By: Hernandez Lares on 09-04-2022 Basophils (Bld) [#/Vol] 0.1 10*3/uL 0.0-0.2 [facility] Basophils/100 WBC Auto (Bld) Ordered By: Hernandez Lares on 09-04-2022 Basophils/100 WBC (Bld) 0.7 % . [facility] Bilirubin Test strip Ql (U)O rdered By: Hernandez Lares on 09-04-2022 Bilirubin Ql (U) Negative Negative [facility] Body fluid albumin measureme nt (mass/volume)Ordered By: Hernandez Lares on 09-04-2022 Albumin (Body fld) [Mass/Vol] 3.6 g/dL 3.2-5.5 [facility] COVID CepheidOrdered By: Chapo Lares on 09-04-2022 SARS-CoV-2 (COVID-19) Ab IA Ql Negative Negative [facility] Comment on above: This is a duplicate [employer] Xpert Xpress CoV-2/Flu/RSV Plus RNA by RT-PCR result to be used for statistical tracking purpose only. SARS-CoV-2 (COVID-19) RNA NANCIE+probe Ql (Unsp spec) [facility] SARS-CoV-2 (COVID-19) RNA NANCIE+probe Ql (Unsp spec) [facility] Color Auto (U)Ordered By: Brandon Lares on 09-04-2022 Color (U) Yellow Yellow [facility] Creatine kinase [Enzymatic a ctivity/volume] in Serum or PlasmaOrdered By: Hernandez Lares on 09-04-2022 CK [Catalytic activity/Vol] 72 U/L [facility] Creatine kinase.MB [Mass/vol ume] in Serum or PlasmaOrdered By: Hernandez Lares on 09-04-2022 CK.MB [Mass/Vol] 0.7 ng/mL 0.6-6.3 [facility] Creatinine and Glomerular fi ltration rate.predicted panel (S/P/Bld)Ordered By: Hernandez Lares on 09-04-2022 Creatinine [Mass/Vol] 1.01 mg/dL 0.64-1.27 [facility] Eosinophils Auto (Bld) [#/Vo l]Ordered By: Hernandez Lares on 09-04-2022 Eosinophils (Bld) [#/Vol] 0.2 10*3/uL 0.0-0.45 [facility] Eosinophils/100 WBC Auto (Bl d)Ordered By: Hernandez Lares on 09-04-2022 Eosinophils/100 WBC (Bld) 2.5 % . [facility] Erythrocyte distribution wid th Auto (RBC) [Ratio]Ordered By: Hernandez Lares on 09-04-2022 Erythrocyte distribution width (RBC) [Ratio] 13.1 % 12.0-14.8 [facility] Estimated glomerular filtrat ion rate (GFR) non- AmericanOrdered By: Hernandez Lares on 09-04-2022 GFR/1.73 sq M.predicted among non-blacks MDRD (S/P/Bld) [Vol rate/Area] > 60 mL/Min [facility] Globulin Calc (S) [Mass/Vol] Ordered By: Hernandez Lares on 09-04-2022 Globulin (S) [Mass/Vol] 2.9 g/dL [facility] Hematocrit Auto (Bld) [Volum e fraction]Ordered By: Hernandez Lares on 09-04-2022 Hematocrit (Bld) [Volume fraction] 45.8 % 38.8-50.0 [facility] Hemoglobin [Mass/volume] in BloodOrdered By: Hernandez Lares on 09-04-2022 Hemoglobin (Bld) [Mass/Vol] 15.6 g/dL 13.0-17.0 [facility] Ketones Auto test strip (U) [Mass/Vol]Ordered By: Hernandez Lares on 09-04-2022 Ketones (U) [Mass/Vol] Trace Negative Fi [facility] Laboratory - UrinalysisOrder ed By: Hernandez Lares on 09-04-2022 Hyaline casts LM Ql (Urine sed) None seen [LPF] 0-8 [facility] Leukocytes [#/volume] correc pooja for nucleated erythrocytes in Blood by Automated counOrdered By: Hernandez Lares on 09-04-2022 WBC corrected for nucl RBC Auto (Bld) [#/Vol] 8.2 10*3/uL 4.1-10.5 [facility] Lymphocytes Auto (Bld) [#/Vo l]Ordered By: Hernandez Lares on 09-04-2022 Lymphocytes (Bld) [#/Vol] 2.2 10*3/uL 1.00-4.8 [facility] Lymphocytes/100 WBC Auto (Bl d)Ordered By: Hernandez Lares on 09-04-2022 Lymphocytes/100 WBC (Bld) 26.2 % . [facility] MCH Auto (RBC) [Entitic mass ]Ordered By: Hernandez Lares on 09-04-2022 MCH (RBC) [Entitic mass] 30.7 pg 27.5-35.2 [facility] MCHC Auto (RBC) [Mass/Vol]Or dered By: Hernandez Lares on 09-04-2022 MCHC (RBC) [Mass/Vol] 34.1 g/dL 32.5-35.6 [facility] MCV Auto (RBC) [Entitic vol] Ordered By: Hernandez Lares on 09-04-2022 MCV (RBC) [Entitic vol] 89.9 fL 83.5-101 [facility] Monocyte distribution width [Entitic volume] in Blood by AutomatedOrdered By: Hernandez Lares on 09-04-2022 Monocyte distribution width Auto (Bld) [Entitic vol] 16.89 % 0.00-20.00 [facility] Monocytes Auto (Bld) [#/Vol] Ordered By: Hernandez Lares on 09-04-2022 Monocytes (Bld) [#/Vol] 0.7 10*3/uL 0.0-0.8 [facility] Monocytes/100 WBC Auto (Bld) Ordered By: Hernandez Lares on 09-04-2022 Monocytes/100 WBC (Bld) 8.1 % . [facility] Neutrophils Auto (Bld) [#/Vo l]Ordered By: Hernandez Lares on 09-04-2022 Neutrophils (Bld) [#/Vol] 5.1 10*3/uL 1.8-7.7 [facility] Neutrophils/100 WBC Auto (Bl d)Ordered By: Hernandez Lares on 09-04-2022 Neutrophils/100 WBC (Bld) 62.5 % . [facility] Nitrite Test strip Ql (U)Ord ered By: Hernandez Lares on 09-04-2022 Nitrite Ql (U) Negative Negative [facility] No Panel InformationOrdered By: Hernandez Lares on 09-04-2022 Estimated GFR () > 60 mL/Min [facility] Comment on above: GFR estimated refere nce range: According to KDOQI guidelines, <60 ml/min/1.73m2 is sufficient to diagnose a patient with chronic kidney disease. Pharmacy Creatinine Clearance (Chem 116.51 [facility] Nucleated erythrocytes [Pres ence] in Blood by Automated countOrdered By: Hernandez Lares on 09-04-2022 Nucleated RBC Auto Ql (Bld) 0.1 /100{WBC} 0-0.5 [facility] Platelet mean volume Auto (B ld) [Entitic vol]Ordered By: Hernandez Lares on 09-04-2022 Platelet mean volume (Bld) [Entitic vol] 7.8 fL 6.6-10.1 [facility] Platelets Auto (Bld) [#/Vol] Ordered By: Hernandez Lares on 09-04-2022 Platelets (Bld) [#/Vol] 224 10*3/uL 150-450 [facility] Protein Auto test strip (U) [Mass/Vol]Ordered By: Hernandez Lares on 09-04-2022 Protein (U) [Mass/Vol] 100 mg/dL Negative [facility] Protein [Mass/volume] in Ser um or PlasmaOrdered By: Hernandez Lares on 09-04-2022 Protein [Mass/Vol] 6.5 g/dL 6.1-7.9 [facility] RBC Auto (Bld) [#/Vol]Ordere d By: Hernandez Lares on 09-04-2022 RBC (Bld) [#/Vol] 5.09 10*6/uL 3.90-5.60 [facility] Serum or plasma alanine storey otransferase measurement without P-5'-P (enzymatic activiOrdered By: Hernandez Lares on 09-04-2022 ALT No additional P-5'-P [Catalytic activity/Vol] 26 U/L 10-60 [facility] Serum or plasma albumin/glob ulin mass ratioOrdered By: Hernandez Lares on 09-04-2022 Albumin/Globulin [Mass ratio] 1.2 {ratio} [facility] Serum or plasma alkaline alexandro sphatase measurement (enzymatic activity/volume)Ordered By: Hernandez Lares on 09-04-2022 ALP [Catalytic activity/Vol] 85 U/L 32-92 [facility] Serum or plasma anion gap de terminationOrdered By: Hernandez Lares on 09-04-2022 Anion gap [Moles/Vol] 15.6 mmol/L 6.0-15.0 [facility] Serum or plasma calcium angie urement (mass/volume)Ordered By: Hernandez Lares on 09-04-2022 Calcium [Mass/Vol] 8.8 mg/dL 8.2-10.2 [facility] Serum or plasma chloride rocio surement (moles/volume)Ordered By: Hernandez Lares on 09-04-2022 Chloride [Moles/Vol] 101 mmol/L 95-114 [facility] Serum or plasma creatine kin ase MB (CKMB)/total creatine kinase (CK) ratio by calculaOrdered By: Hernandez Lares on 09-04-2022 CK.MB Calc [Catalytic fraction] 0.9 % 0.00-2.50 [facility] Serum or plasma glucose angie urement (mass/volume)Ordered By: Hernandez Lares on 09-04-2022 Glucose [Mass/Vol] 99 mg/dL 70-100 [facility] Comment on above: ADA recommended refe rence rangeRandom Glucose Reference Range is dependent on time and content of last meal. Glucose of more than 200 mg/dL in a nonstressed, ambulatory subject supports the diagnosis of Diabetes Mellitus. Serum or plasma potassium me asurement (moles/volume)Ordered By: Hernandez Lares on 09-04-2022 Potassium [Moles/Vol] 4.0 mmol/L 3.5-5.1 [facility] Serum or plasma sodium measu rement (moles/volume)Ordered By: Hernandez Lares on 09-04-2022 Sodium [Moles/Vol] 138 mmol/L 136-146 [facility] Serum or plasma total biliru bin measurement (mass/volume)Ordered By: Hernandez Lares on 09-04-2022 Bilirubin [Mass/Vol] 0.6 mg/dL 0.3-1.2 [facility] Serum or plasma total carbon dioxide measurement (moles/volume)Ordered By: Hernandez Lares on 09-04-2022 CO2 [Moles/Vol] 25.4 mmol/L 22.0-30.0 [facility] Serum or plasma urea nitroge n measurement (mass/volume)Ordered By: Hernandez Lares on 09-04-2022 Urea nitrogen [Mass/Vol] 13 mg/dL 9-23 [facility] Specific gravity Auto test s trip (U) [Rel density]Ordered By: Hernandez Lares on 09-04-2022 Specific gravity (U) [Rel density] 1.027 1.001-1.030 [facility] Spermatozoa detection in uri ne sediment by light microscopyOrdered By: Hernandez Lares on 09-04-2022 Spermatozoa LM Ql (Urine sed) 3-4 [HPF] 0-2 [facility] Squamous epithelial cells de tection in urine sediment by light microscopyOrdered By: Hernandez Lares on 09-04-2022 Epithelial cells.squamous LM Ql (Urine sed) None seen [HPF] 0-2 [facility] Troponin I.cardiac [Mass/vol ume] in Serum or Plasma by High sensitivity methodOrdered By: Hernandez Lares on 09-04-2022 Troponin I.cardiac High sensitivity method [Mass/Vol] < 3 pg/mL 0-20 [facility] Urine bacteria detection by automated methodOrdered By: Hernandez Lares on 09-04-2022 Bacteria Auto Ql (U) None seen None Seen [facility] Urine clarity by refractomet ry automatedOrdered By: Hernandez Lares on 09-04-2022 Clarity Refractometry automated (U) Clear Clear [facility] Urine glucose measurement by automated test strip (mass/volume)Ordered By: Hernandez Lares on 09-04-2022 Glucose Auto test strip (U) [Mass/Vol] Normal mg/dL Normal [facility] Urine hemoglobin detection b y automated test stripOrdered By: Hernandez Lares on 09-04-2022 Hemoglobin Auto test strip Ql (U) Negative Negative [facility] Urine leukocyte esterase det ection by automated test stripOrdered By: Hernandez Lares on 09-04-2022 Leukocyte esterase Auto test strip Ql (U) Negative Negative [facility] Urobilinogen Auto test strip (U) [Mass/Vol]Ordered By: Hernandez Lares on 09-04-2022 Urobilinogen (U) [Mass/Vol] Normal mg/dL Normal [facility] WBC Auto (Bld) [#/Vol]Ordere d By: Hernandez Lares on 09-04-2022 WBC (Bld) [#/Vol] 8.2 10*3/uL 4.1-10.5 [facility] pH Auto test strip (U)Ordere d By: Hernandez Lares on 09-04-2022 pH (U) 6.0 [pH] 5.0-9.0 [facility] CBC AUTO DIFFon 03-08-2022 BASO # 0.0 103/ul Normal 0.0-0.1 [facility] Comment on above: Performed By: #### C BC #### [facility] [address] [place] [address] Dr. Pablo Blanchard Basophils/100 WBC (Bld) 0.4 % Normal 0.2-2.0 [facility] Comment on above: Performed By: #### C BC #### [facility] [address] [place] [address] Dr. Pablo Blanchard EO # 0.2 103/ul Normal 0.0-0.7 [facility] Comment on above: Performed By: #### C BC #### [facility] [address] [place] [address] Dr. Pablo Blanchard Eosinophils/100 WBC (Bld) 2.5 % Normal 0.9-7.0 [facility] Comment on above: Performed By: #### C BC #### [facility] [address] [place] [address] Dr. Pablo Blanchard Erythrocyte distribution width (RBC) [Ratio] 12.2 % Normal 11.0-15.0 [facility] Comment on above: Performed By: #### C BC #### [facility] [address] [place] [address] Dr. Pablo Blanchard Hematocrit (Bld) [Volume fraction] 49.2 % Normal 42.0-54.0 [facility] Comment on above: Performed By: #### C BC #### [facility] [address] [place] [address] Dr. Pablo Blanchard Hemoglobin (Bld) [Mass/Vol] 16.1 g/dL Normal 14.0-18.0 [facility] Comment on above: Performed By: #### C BC #### [facility] [address] [place] [address] Dr. Pablo Blanchard IG # 0.03 10e3/ul Normal 0.00-0.03 [facility] Comment on above: Performed By: #### C BC #### [facility] [address] [place] [address] Dr. Pablo Blanchard IG % 0.4 % Normal 0.0-0.5 [facility] Comment on above: Performed By: #### C BC #### [facility] [address] [place] [address] Dr. Pablo Blanchard LYMPH # 1.5 103/ul Normal 1.2-3.8 [facility] Comment on above: Performed By: #### C BC #### [facility] [address] [place] [address] Dr. Pablo Blanchard Lymphocytes/100 WBC (Bld) 20.1 % Critically low 20.5-60.0 [facility] Comment on above: Performed By: #### C BC #### [facility] [address] [place] [address] Dr. Pablo Blanchard MANUAL DIFF REQ NO Normal [facility] Comment on above: Performed By: #### C BC #### [facility] [address] [place] [address] Dr. Pablo Blanchard MCH (RBC) [Entitic mass] 30.4 pg Normal 25.9-34.0 [facility] Comment on above: Performed By: #### C BC #### [facility] [address] [place] [address] Dr. Pablo Blanchard MCHC (RBC) [Mass/Vol] 32.7 g/dL Normal 29.9-35.2 [facility] Comment on above: Performed By: #### C BC #### [facility] [address] [place] [address] Dr. Pablo Blanchard MCV (RBC) [Entitic vol] 92.8 fL Normal 80.0-94.0 [facility] Comment on above: Performed By: #### C BC #### [facility] [address] [place] [address] Dr. Pablo Blanchard MONO # 0.6 103/ul Normal 0.3-0.8 [facility] Comment on above: Performed By: #### C BC #### [facility] [address] [place] [address] Dr. Pablo Blanchard Monocytes/100 WBC (Bld) 8.1 % Normal 1.7-12.0 [facility] Comment on above: Performed By: #### C BC #### [facility] [address] [place] [address] Dr. Pablo Blanchard NEUT # 5.1 103/ul Normal 1.4-6.5 [facility] Comment on above: Performed By: #### C BC #### [facility] [address] [place] [address] Dr. Pablo Blanchard Neutrophils/100 WBC (Bld) 68.5 % Normal 43.0-75.0 [facility] Comment on above: Performed By: #### C BC #### [facility] [address] [address] [address] Pablo Blanchard Platelet mean volume (Bld) [Entitic vol] 9.2 fL Critically low 9.5-13.5 [facility] Comment on above: Performed By: #### C BC #### [facility] [address] [address] [address] Pablo Blanchard PLT 231 103/ul Normal 150-450 [facility] Comment on above: Performed By: #### C BC #### [facility] [address] [address] [address] Pablo Blanchard RBC 5.30 106/ul Normal 4.70-6.10 [facility] Comment on above: Performed By: #### C BC #### [facility] [address] [place] [address] Dr. Pablo Blanchard WBC 7.5 103/ul Normal 4.0-11.0 [facility] Comment on above: Performed By: #### C BC #### [facility] [address] [place] [address] Dr. Pablo Blanchard GLYCOHEMOGLOBIN A1Con 2021 ADA RECOMMENDATION SEE BELOW Normal [facility] Comment on above: Result Comment: ADA RECOMMENDED LIMIT 4.0 - 6.0 ADA THERAPEUTIC TARGET < 7.0 ACTION SUGGESTED > 7.0 Performed By: #### A 1C #### [facility] [address] [place] [address] Dr. Pablo Blanchard Glucose [Mass/Vol] 97 mg/dL Normal [facility] Comment on above: Performed By: #### A 1C #### [facility] [address] [place] [address] Dr. Pablo Blanchard HbA1c (Bld) [Mass fraction] 5.0 % Normal 4.5-6.2 [facility] Comment on above: Performed By: #### A 1C #### [facility] [address] [place] [address] Dr. Pablo Blanchard LIPID PROFILEon 03-08-2022 CHOL-HDL RATIO NORM SEE BELOW Normal [facility] Comment on above: Result Comment: 3.3 - 4.4 LOW RISK 4.4 - 7.1 AVERAGE RISK 7.1 - 11.0 MODERATE RISK >11.0 HIGH RISK Performed By: #### L IPID, CMP #### [facility] [address] [address] [address] Pablo Blanchard Cholesterol [Mass/Vol] 205 mg/dL Critically high <=200 [facility] Comment on above: Performed By: #### L IPID, CMP #### [facility] [address] [address] [address] Pablo Blanchard Cholesterol in HDL [Mass/Vol] 40 mg/dL Normal 40-60 [facility] Comment on above: Performed By: #### L IPID, CMP #### [facility] [address] [address] [address] Pablo Blanchard Cholesterol in LDL [Mass/Vol] 150.6 mg/dL Normal [facility] Comment on above: Performed By: #### L IPID, CMP #### [facility] [address] [address] [address] Pablo Blanchard Cholesterol.total/Choles terol in HDL [Mass ratio] 5.1 {ratio} Normal [facility] Comment on above: Performed By: #### L IPID, CMP #### [facility] [address] [address] [address] Pablo Blanchard HDL NORMAL > or = 60 mg/dl - LOW CARDIOVASCULAR RISK <40 mg/dl - HIGH CARDIOVASCULAR RISK Normal [facility] Comment on above: Performed By: #### L IPID, CMP #### [facility] [address] [address] [address] Pablo Blanchard LDL CALC NORMAL SEE BELOW Normal [facility] Comment on above: Result Comment: <100 mg/dl OPTIMAL 100 - 129 mg/dl NEAR OR ABOVE OPTIMAL 130 - 159 mg/dl BORDERLINE HIGH 160 - 189 mg/dl HIGH >190 mg/dl VERY HIGH Performed By: #### L IPID, CMP #### [facility] [address] [address] [address] Pablo Blanchard Triglyceride [Mass/Vol] 72 mg/dL Normal <=150 T [facility] Comment on above: Performed By: #### L IPID, CMP #### [facility] [address] [place] [address] Dr. Pablo Blanchard VLDL CALC 14.4 mg/dL Normal [facility] Comment on above: Performed By: #### L IPID, CMP #### [facility] [address] [place] [address] Dr. Pablo Blanchard PROF 14(COMP METB)on 022 Albumin [Mass/Vol] 3.3 g/dL Critically low 3.4-5.0 [facility] Comment on above: Performed By: #### L IPID, CMP #### [facility] [address] [place] [address] Dr. Pablo Blanchard Albumin/Globulin [Mass ratio] 1.0 {ratio} Normal [facility] Comment on above: Performed By: #### L IPID, CMP #### [facility] [address] [place] [address] Dr. Pablo Blanchard ALP [Catalytic activity/Vol] 98 U/L Normal 46-116 [facility] Comment on above: Performed By: #### L IPID, CMP #### [facility] [address] [place] [address] Dr. Pablo Blanchard ALT [Catalytic activity/Vol] 33 U/L Normal 16-63 [facility] Comment on above: Performed By: #### L IPID, CMP #### [facility] [address] [place] [address] Dr. Pablo Blanchard Anion gap [Moles/Vol] 9.4 mmol/L Normal [facility] Comment on above: Performed By: #### L IPID, CMP #### [facility] [address] [place] [address] Dr. Pablo Blanchard AST [Catalytic activity/Vol] 16 U/L Normal 15-37 [facility] Comment on above: Performed By: #### L IPID, CMP #### [facility] [address] [place] [address] Dr. Pablo Blanchard Bilirubin [Mass/Vol] 0.7 mg/dL Normal 0.2-1.0 [facility] Comment on above: Performed By: #### L IPID, CMP #### [facility] [address] [place] [address] Dr. Pablo Blanchard Calcium [Mass/Vol] 8.0 mg/dL Critically low 8.5-10.1 Th e [facility] Comment on above: Performed By: #### L IPID, CMP #### [facility] [address] [place] [address] Dr. Pablo Blanchard Chloride [Moles/Vol] 104 mmol/L Normal 98-107 [facility] Comment on above: Performed By: #### L IPID, CMP #### [facility] [address] [place] [address] Dr. Pablo Blanchard CO2 [Moles/Vol] 30.5 mmol/L Normal 21.0-32.0 [facility] Comment on above: Performed By: #### L IPID, CMP #### [facility] [address] [place] [address] Dr. Pablo Blanchard Creatinine [Mass/Vol] 1.02 mg/dL Normal 0.70-1.30 [facility] Comment on above: Performed By: #### L IPID, CMP #### [facility] [address] [place] [address] Dr. Pablo Blanchard EGFR-AF YEMENI >60 Normal >=60 [facility] Comment on above: Performed By: #### L IPID, CMP #### [facility] [address] [place] [address] Dr. Pablo Blanchard EGFR-NON AF YEMENI >60 Normal >=60 [facility] Comment on above: Performed By: #### L IPID, CMP #### [facility] [address] [place] [address] Dr. Pablo Blanchard Globulin (S) [Mass/Vol] 3.4 g/dL Normal T [facility] Comment on above: Performed By: #### L IPID, CMP #### [facility] [address] [place] [address] Dr. Pablo Blanchard Glucose [Mass/Vol] 108 mg/dL Critically high 74-106 T [facility] Comment on above: Performed By: #### L IPID, CMP #### [facility] [address] [place] [address] Dr. Pablo Blanchard Potassium [Moles/Vol] 3.9 mmol/L Normal 3.5-5.1 [facility] Comment on above: Performed By: #### L IPID, CMP #### [facility] [address] [place] [address] Dr. Pablo Blanchard Protein [Mass/Vol] 6.7 g/dL Normal 6.4-8.2 [facility] Comment on above: Performed By: #### L IPID, CMP #### [facility] [address] [place] [address] Dr. Pablo Balnchard Sodium [Moles/Vol] 140 mmol/L Normal 136-145 [facility] Comment on above: Performed By: #### L IPID, CMP #### [facility] [address] [place] [address] Dr. Pablo Blanchard Urea nitrogen [Mass/Vol] 11.0 mg/dL Normal 7.0-18.0 [facility] Comment on above: Performed By: #### L IPID, CMP #### [facility] [address] [place] [address] Dr. Pablo Blanchard Urea nitrogen/Creatinine [Mass ratio] 10.8 mg/mg Normal [facility] Comment on above: Performed By: #### L IPID, CMP #### [facility] [address] [place] [address] Dr. Pablo Blanchard UA RANDOM W/MICROSCOPICon BACTERIA NONE SEEN Normal NONE SEEN The [facility] Comment on above: Performed By: #### U AMIC #### [facility] [address] [place] [address] Dr. Pablo Blanchard Bilirubin Ql (U) Negative Normal NEGATIVE The [facility] Comment on above: Performed By: #### U AMIC #### [facility] [address] [place] [address] Dr. Pablo Blanchard CAST NONE SEEN Normal NONE SEEN [facility] Comment on above: Performed By: #### U AMIC #### [facility] [address] [place] [address] Dr. Pablo Blanchard Clarity (U) CLEAR Normal CLEAR [facility] Comment on above: Performed By: #### U AMIC #### [facility] [address] [place] [address] Dr. Pablo Blanchard Color (U) YELLOW Normal YELLOW [facility] Comment on above: Performed By: #### U AMIC #### [facility] [address] [place] [address] Dr. Pablo Blanchard Crystals LM Nom (Urine sed) NONE SEEN Normal NONE SEEN [facility] Comment on above: Performed By: #### U AMIC #### [facility] [address] [place] [address] Dr. Pablo Blanchard Epithelial cells LM Ql (Urine sed) FEW Abnormal NONE SEEN /RARE [facility] Comment on above: Performed By: #### U AMIC #### [facility] [address] [place] [address] Dr. Pablo Blanchard Glucose Ql (U) Negative Normal NEGATIVE [facility] Comment on above: Performed By: #### U AMIC #### [facility] [address] [place] [address] Dr. Pablo Blanchard Hemoglobin Ql (U) Negative Normal NEGATIVE The [facility] Comment on above: Performed By: #### U AMIC #### [facility] [address] [address] [address] Pablo Blanchard Ketones Ql (U) Negative Normal NEGATIVE [facility] Comment on above: Performed By: #### U AMIC #### [facility] [address] [place] [address] Dr. Pablo Blanchard LEUKOCYTES Negative Normal NEGATIVE The [facility] Comment on above: Performed By: #### U AMIC #### [facility] [address] [place] [address] Dr. Pablo Blanchard MUCOUS NONE SEEN Normal NONE SEEN [facility] Comment on above: Performed By: #### U AMIC #### [facility] [address] [place] [address] Dr. Pablo Blanchard Nitrite Ql (U) Negative Normal NEGATIVE [facility] Comment on above: Performed By: #### U AMIC #### [facility] [address] [place] [address] Dr. Pablo Blanchard pH (U) 6.0 [pH] Normal 5-9 [facility] Comment on above: Performed By: #### U AMIC #### [facility] [address] [place] [address] Dr. Pablo Blanchard RBC 0-2 Normal 0-2 [facility] Comment on above: Performed By: #### U AMIC #### [facility] [address] [place] [address] Dr. Pablo Blanchard SPEC GRAVITY >=1.030 Abnormal 1.005-<=1.02 5 [facility] Comment on above: Performed By: #### U AMIC #### [facility] [address] [place] [address] Dr. Pablo Blanchard UA PROTEIN Negative Normal NEGATIVE/ TRACE [facility] Comment on above: Performed By: #### U AMIC #### [facility] [address] [place] [address] Dr. Pablo Blanchard Urobilinogen Qn (U) 1.0 {Kuldeep'U}/dL Normal 0.2 - 1. 0 [facility] Comment on above: Performed By: #### U AMIC #### [facility] [address] [place] [address] Dr. Pablo Blanchard WBC NONE SEEN Normal NONE SEEN [facility] Comment on above: Performed By: #### U AMIC #### [facility] [address] [place] [address] Dr. Pablo Blanchard [facility] SARS-CoV-2 (COVID-19) RNA NANCIE+probe Ql (Unsp spec) Not detected Normal NOT DETECTED [facility] Comment on above: Result Comment: This test is not yet approved or cleared by the [place] FDA. When there are no FDA-approved or cleared tests available, and other criteria are met, FDA can make tests available under an emergency access mechanism called an Emergency Use Authorization (EUA). The EUA for this test is supported by the [place] of Health and Human Service's (HHS's) declaration [...] By: #### C VDTBH #### [facility] [address] [place] [address] Dr. Pablo Blanchard [facility] 02-04-2018 Creatine kinase (CK) 57 Int._Unit/L Normal 14-261 [facility] Comment on above: Performed By: #### 2 [id number], [id number] ####[facility] [address] [place] [address] CKMBon 02-04-2018 CREATINE KINASE.MB:CCNC:PT:SER/PL :QN:EIA 0.5 ng/mL Normal 0.3-4.9 [facility] Comment on above: Performed By: #### 2 071778, [id number] ####[facility] [address] [place] [address] CREATINE KINASE.MB:CCNC:PT:SER/PL :QN:EIA 0.8 ng/mL Normal 0.3-4.9 [facility] Comment on above: Performed By: #### 2 [id number], [id number], [id number] ####[facility] [address] [place] [address] CREATINE KINASE.MB:CCNC:PT:SER/PL :QN:EIA 0.7 ng/mL Normal 0.3-4.9 [facility] Comment on above: Performed By: #### 2 550585, [id number], [id number] ####[address] [place] [address] CMPon 02-04-2018 Albumin 1.2 g/dL Normal 1.1-2.2 [facility] Comment on above: Performed By: #### 2 126305, [id number] ####[address] [address] Albumin 3.6 g/dL Normal 3.3-5.0 [facility] Comment on above: Performed By: #### 2 028182, [id number] ####[address] [address] Alkaline phosphatase (ALP) 71 Int._Unit/L Normal 21-98 [facility] Comment on above: Performed By: #### 2 047492, [id number] ####[address] [address] ALT Without P-5'-P enzyme act/vol 29 Int._Unit/L Normal 6-46 [facility] Comment on above: Performed By: #### 2 004362, [id number] ####[address] [address] Aspartate aminotransferase (AST) 29 Int._Unit/L Normal 5-43 [facility] Comment on above: Performed By: #### 2 634038, [id number] ####[address] [address] Bilirubin (total) 0.5 mg/dL Normal 0.0-1.1 [facility] Comment on above: Performed By: #### 2 695179, [id number] ####[address] [place] [address] BUN/Creatinine Ratio 16 No Units Normal 10-20 [facility] Comment on above: Performed By: #### 2 290550, [id number] ####[address] [place] [address] Creatinine 1.0 mg/dL Normal 0.5-1.3 [facility] Comment on above: Performed By: #### 2 029567, [id number] ####[facility] [address] [place] [address] Globulin 2.9 g/dL Normal 1.4-4.0 [facility] Comment on above: Performed By: #### 2 118836, [id number] ####[facility] [address] [place] [address] Protein 6.5 g/dL Normal 6.0-7.8 [facility] Comment on above: Performed By: #### 2 197303, [id number] ####[facility] [address] [place] [address] Urea nitrogen 16 mg/dL Normal 5-21 [facility] Comment on above: Performed By: #### 2 666768, [id number] ####[facility] [address] [place] [address] Anion gap 14 mmol/L Normal 6-16 [facility] Comment on above: Performed By: #### 2 279617, [id number] ####[facility] [address] [place] [address] Calcium 8.8 mg/dL Low 8.9-11.1 [facility] Comment on above: Performed By: #### 2 888836, [id number] ####[facility] [address] [place] [address] Chloride 106 mmol/L Normal 101-111 [facility] Comment on above: Performed By: #### 2 627116, [id number] ####[facility] [address] [place] [address] CO2 23 mmol/L Normal 21-31 [facility] Comment on above: Performed By: #### 2 606882, [id number] ####[facility] [address] [place] [address] Glucose mass conc 86 mg/dL Normal 55-199 [facility] Comment on above: Result Comment: If t his glucose result represents a fasting glucose, interpretation should refer to the following reference range: 55-99 mg/dL Performed By: #### 2 970214, [id number] ####[facility] [address] [place] [address] Potassium molar conc 3.6 mmol/L Normal 3.5-5.3 [facility] Comment on above: Performed By: #### 2 041510, [id number] ####[facility] [address] [place] [address] Sodium 139 mmol/L Normal 135-145 [facility] Comment on above: Performed By: #### 2 081084, [id number] ####[facility] [address] [place] [address] Myoglobinon 02-04-2018 Myoglobin 18 ng/mL Normal <=69 [facility] Comment on above: Performed By: #### 2 652303, 4861105, [id number], 0870807, [id number], [id number] ####[facility] [address] [place] [address] Myoglobin 42 ng/mL Normal <=69 [facility] Comment on above: Performed By: #### 2 553343, 2599857, [id number] ####[facility] [address] [place] [address] Myoglobin 17 ng/mL Normal <=69 [facility] Comment on above: Performed By: #### 2 662684, 2584413, [id number] ####[facility] [address] [place] [address] T4 Totalon 02-04-2018 Thyroxine (T4) 9.1 microgram/dL Normal 4.6-9.1 [facility] Comment on above: Performed By: #### 2 383807, [id number] ####[facility] [address] [place] [address] TSHon 02-04-2018 Thyroid stimulating hormone (TSH) 5.61 mcIU/mL High 0.34-5.60 [facility] Comment on above: Performed By: #### 2 954676, [id number] ####[facility] [address] [place] [address] Troponinon 02-04-2018 Troponin I.cardiac mass conc ng/mL Normal <=0.03 [facility] Comment on above: Result Comment: New Troponin Assay 11/26/13ROC [place] Cutoff value > or = 0.03 ng/mL in conjunction with clinical conditions of myocardial infarction.([email or web address]/guidelines) Performed By: #### 2 759963, 8188976, [id number], 8625792, [id number], [id number] ####[facility] [address] [place] [address] Troponin I.cardiac mass conc ng/mL Normal <=0.03 [facility] Comment on above: Result Comment: New Troponin Assay 11/26/13ROC [place] Cutoff value > or = 0.03 ng/mL in conjunction with clinical conditions of myocardial infarction.([email or web address]/guidelines) Performed By: #### 2 976285, 8418106, [id number] ####[facility] [address] [place] [address] Troponin I.cardiac mass conc ng/mL Normal <=0.03 [facility] Comment on above: Result Comment: New Troponin Assay 11/26/13ROC [place] Cutoff value > or = 0.03 ng/mL in conjunction with clinical conditions of myocardial infarction.([email or web address]/guidelines) Performed By: #### 2 866130, 6731122, [id number] ####[facility] [address] [place] [address] eGFRon 02-04-2018 eGFR (black) mL/min/{1.73_m2} Normal >=59 [facility] Comment on above: Order Comment: Order added by Discern Expert. Result Comment: eGFR is race adjusted. AA=. Performed By: #### 2 337986, [id number] ####[facility] [address] [place] [address] eGFR (non-black) mL/min/{1.73_m2} Normal >=59 [facility] Comment on above: Order Comment: Order added by Discern Expert. Result Comment: Seat Pack Inspector sofi kidney disease could be indicated at eGFR's of less than 60 mL/min/1.73m2. Kidney failure is indicated at less than 15 mL/min/1.73m2. Performed By: #### 2 388311, [id number] ####[facility] [address] [place] [address] Vital Signs Date Time Vital Sign Value Performing Clinician Facility 08-19-2024 16:21-0500 Body height 189.2 cm Lida Suh MD Work Phone: [facility] 08-19-2024 16:21-0500 Body mass index (BMI) [Ratio] 31.67 kg/m2 Lida Suh MD Work Phone: [facility] 08-19-2024 16:21-0500 Body weight 113.4 kg Lida Suh MD Work Phone: [facility] 08-19-2024 16:21-0500 Diastolic blood pressure 75 mm[Hg] Lida Suh MD Work Phone: [facility] 08-19-2024 16:21-0500 Heart rate 75 /min Lida Suh MD Work Phone: [facility] 08-19-2024 16:21-0500 Systolic blood pressure 98 mm[Hg] Lida Suh MD Work Phone: [facility] 07-30-2024 08:21-0500 Body height 190.5 cm Brooklynn Yeager NP Work Phone: [facility] 07-30-2024 08:21-0500 Body mass index (BMI) [Ratio] 31.8 kg/m2 Brooklynn Yeager NP Work Phone: [facility] 07-30-2024 08:21-0500 Body temperature 97.81 [degF] Brooklynn Aichholz [employer] Work Phone: [facility] 07-30-2024 08:21-0500 Body weight 115.39 kg Brooklynn Aichholz [employer] Work Phone: [facility] 07-30-2024 08:21-0500 Diastolic blood pressure 72 mm[Hg] Brooklynn Aichholz [employer] Work Phone: [facility] 07-30-2024 08:21-0500 Heart rate 88 /min Brooklynn Aichholz [employer] Work Phone: [facility] 07-30-2024 08:21-0500 Respiratory rate 20 /min Brooklynn Aichholz [employer] Work Phone: [facility] 07-30-2024 08:21-0500 SaO2% (BldA) [Mass fraction] 93 % Brooklynn Aichholz [employer] Work Phone: [facility] 07-30-2024 08:21-0500 Systolic blood pressure 108 mm[Hg] Brooklynn Aichholz [employer] Work Phone: [facility] 03-30-2024 08:08-0400 Body height 186.7 cm Brooklynn Aichholz [employer] Work Phone: [facility] 03-30-2024 08:08-0400 Body mass index (BMI) [Ratio] 32.82 kg/m2 Brooklynn Aichholz [employer] Work Phone: [facility] 03-30-2024 08:08-0400 Body temperature 98.2 [degF] Brooklynn Aichholz [employer] Work Phone: [facility] 03-30-2024 08:08-0400 Body weight 114.4 kg Brooklynn Aichholz [employer] Work Phone: [facility] 03-30-2024 08:08-0400 Diastolic blood pressure 80 mm[Hg] Brooklynn Aichholz [employer] Work Phone: [facility] 03-30-2024 08:08-0400 Heart rate 79 /min Brooklynn Yeager [employer] Work Phone: [facility] 03-30-2024 08:08-0400 Respiratory rate 18 /min Brooklynn Yeager [employer] Work Phone: [facility] 03-30-2024 08:08-0400 SaO2% (BldA) [Mass fraction] 97 % Brooklynn Yeager [employer] Work Phone: [facility] 03-30-2024 08:08-0400 Systolic blood pressure 110 mm[Hg] Brooklynn Yeager [employer] Work Phone: [facility] 03-17-2024 10:11-0400 Body height 189.2 cm Pm 1 [facility] 03-17-2024 10:11-0400 Body mass index (BMI) [Ratio] 31.67 kg/m2 Pm 1 [facility] 03-17-2024 10:11-0400 Body weight 113.4 kg Pmh 1 [facility] 01-29-2024 16:33-0400 Body height 185.4 cm Lida Suh MD Work Phone: [facility] 01-29-2024 16:33-0400 Body mass index (BMI) [Ratio] 33.64 kg/m2 Lida Suh MD Work Phone: [facility] 01-29-2024 16:33-0400 Body weight 115.67 kg Lida Suh MD Work Phone: [facility] 01-29-2024 16:33-0400 Diastolic blood pressure 68 mm[Hg] Lida Suh MD Work Phone: [facility] 01-29-2024 16:33-0400 Heart rate 73 /min Lida Suh MD Work Phone: [facility] 01-29-2024 16:33-0400 Systolic blood pressure 94 mm[Hg] Lida Suh MD Work Phone: [facility] 11-13-2023 11:37-0400 Body height 188 cm Lida Suh MD Work Phone: [facility] 11-13-2023 11:37-0400 Body mass index (BMI) [Ratio] 31.46 kg/m2 Lida Suh MD Work Phone: [facility] 11-13-2023 11:37-0400 Body weight 111.13 kg Lida Suh MD Work Phone: [facility] 11-13-2023 11:37-0400 Diastolic blood pressure 72 mm[Hg] Lida Suh MD Work Phone: [facility] 11-13-2023 11:37-0400 Heart rate 69 /min Lida Suh MD Work Phone: [facility] 11-13-2023 11:37-0400 Systolic blood pressure 106 mm[Hg] Lida Suh MD Work Phone: [facility] 10-17-2023 09:02-0400 Body height 188 cm Pmh 1 [facility] 10-17-2023 09:02-0400 Body mass index (BMI) [Ratio] 32.1 kg/m2 Pmh 1 [facility] 10-17-2023 09:02-0400 Body weight 113.4 kg Pmh 1 [facility] 09-04-2023 14:11-0500 Body height 188 cm Lida Suh MD Work Phone: [facility] 09-04-2023 14:11-0500 Body mass index (BMI) [Ratio] 31.46 kg/m2 Lida Suh MD Work Phone: [facility] 09-04-2023 14:11-0500 Body weight 111.13 kg Lida Suh MD Work Phone: [facility] 09-04-2023 14:11-0500 Diastolic blood pressure 75 mm[Hg] Lida Suh MD Work Phone: [facility] 09-04-2023 14:11-0500 Heart rate 76 /min Lida Suh MD Work Phone: [facility] 09-04-2023 14:11-0500 Systolic blood pressure 116 mm[Hg] Lida Suh MD Work Phone: [facility] 10-22-2022 15:54-0400 Diastolic blood pressure 46 mm[Hg] Brooklynn Aichholz Work Phone: [facility] 10-22-2022 15:54-0400 Heart rate 69 /min Brooklynn Aichholz Work Phone: [facility] 10-22-2022 15:54-0400 Respiratory rate 16 /min Brooklynn Aichholz Work Phone: [facility] 10-22-2022 15:54-0400 SaO2% (BldA) [Mass fraction] 99 % Brooklynn Aichholz Work Phone: [facility] 10-22-2022 15:54-0400 Systolic blood pressure 97 mm[Hg] Brooklynn Aichholz Work Phone: [facility] 10-22-2022 14:07-0400 Body height 187.96 cm Brooklynn Aichholz Work Phone: [facility] 10-22-2022 14:07-0400 Body temperature 97.2 [degF] Brooklynn Aichholz Work Phone: [facility] 10-22-2022 14:07-0400 Body weight 113.39 kg Brooklynn Aichholz Work Phone: [facility] 09-04-2022 23:07-0500 Heart rate 73 /min Brooklynn Aichholz Work Phone: [facility] 09-04-2022 23:07-0500 Respiratory rate 18 /min Brooklynn Aichholz Work Phone: [facility] 09-04-2022 23:07-0500 SaO2% (BldA) [Mass fraction] 99 % Brooklynn Aichholz Work Phone: [facility] 09-04-2022 22:55-0500 Body temperature 97.7 [degF] Brooklynn Aichholz Work Phone: [facility] 09-04-2022 22:55-0500 Diastolic blood pressure 84 mm[Hg] Brooklynn Aichholz Work Phone: [facility] 09-04-2022 22:55-0500 Systolic blood pressure 123 mm[Hg] Brooklynn Aichholz Work Phone: [facility] 09-04-2022 22:11-0500 Body height 189.23 cm Brooklynn Aichholz Work Phone: [facility] 09-04-2022 22:11-0500 Body weight 117.4 kg Brooklynn Aichholz Work Phone: [facility] Encounters Encounter Date Encounter Type Care Provider Facility Start: 03-04-2025 End: 03-04-2025 Refill Brooklynn Yeager [employer] Work Phone: [facility] Comment on above: Vitamin D deficiency Start: 12-30-2024 End: 12-30-2024 Telephone encounter Lida Suh MD Work Phone: [facility] Start: 12-30-2024 End: 12-30-2024 Evaluation and management of inpatient LIDA SUH [facility] Start: 12-14-2024 End: 12-16-2024 Orders Only Lida Suh MD Work Phone: [facility] Comment on above: Malignant neoplasm o f overlapping sites of bladder ([facility]) (Primary Dx) Start: 12-11-2024 End: 12-15-2024 Telephone encounter Carol Robert CNA [facility] Start: 12-10-2024 End: 12-10-2024 Clinisync Result Encounter Brooklynn Yeager [employer] Work Phone: [facility] External Department Unsolicited Start: 12-10-2024 End: 12-10-2024 Clinisync Result Encounter Brooklynn Yeager [employer] Work Phone: [facility] External Department Unsolicited Start: 10-13-2024 End: 10-13-2024 Orders Only Brooklynn Yeager [employer] Work Phone: [facility] Comment on above: Vitamin D deficiency (Primary Dx) Start: 10-12-2024 End: 10-12-2024 Clinisync Result Encounter Brooklynn Yeager [employer] Work Phone: [facility] External Department Unsolicited Start: 10-12-2024 End: 10-12-2024 Clinisync Result Encounter Brooklynn Yeager [employer] Work Phone: [facility] External Department Unsolicited Start: 10-12-2024 End: 10-12-2024 Refill Brooklynn Yeager [employer] Work Phone: [facility] Comment on above: Vitamin D deficiency (Primary Dx) Start: 10-05-2024 End: 10-05-2024 ambulatory BROOKLYNN YEAGER Not Available Start: 09-16-2024 End: 09-16-2024 Telephone encounter [facility] Start: 09-11-2024 End: 09-14-2024 [...] Malignant neoplasm of overlapping sites of bladder ([facility]) Start: 08-19-2024 End: 08-19-2024 ambulatory [facility] Start: 08-18-2024 End: 08-18-2024 Clinisync Result Encounter Brooklynn Eaglegavin [employer] Work Phone: [facility] External Department Unsolicited Start: 08-18-2024 End: 08-18-2024 Clinisync Result Encounter Brooklynn Carrasquillojohnny [employer] Work Phone: [facility] External Department Unsolicited Start: 08-18-2024 End: 08-18-2024 Refill Brooklynn Eaglegavin [employer] Work Phone: [facility] Comment on above: Vitamin D deficiency (Primary Dx) Start: 08-14-2024 End: 08-14-2024 Orders Only Brooklynn Shobha [employer] Work Phone: [facility] Comment on above: Hypocalcemia (Primar y Dx); Hyperglycemia Start: 08-13-2024 End: 08-13-2024 Clinisync Result Encounter Brooklynn Eaglegavin [employer] Work Phone: [facility] External Department Unsolicited Start: 08-13-2024 End: 08-13-2024 Clinisync Result Encounter Brooklynn Eaglegavin [employer]ER Work Phone: [facility] External Department Unsolicited Start: 07-30-2024 End: 07-30-2024 Bamboo flowsheet Brooklynn Eagledaltonz [employer] Work Phone: [facility] Start: 07-30-2024 End: 07-30-2024 Bamboo flowsheet Brooklynnjune Eagledaltonz [employer]ER Work Phone: [facility] Start: 07-30-2024 End: 07-30-2024 Office outpatient visit 25 minutes Brooklynn Shobha [employer] Work Phone: [facility] Comment on above: Bipolar disorder, cu rrent episode mixed, mild (CMS/HCC) (Primary Dx); Malignant neoplasm of overlapping sites of bladder (CMS/HCC); Obesity (BMI 30-39.9); Mixed hyperlipidemia (CMS/HCC); Tobacco user; Bipolar affective disorder, remission status unspecified (CMS/HCC) Start: 07-30-2024 End: 07-30-2024 ambulatory BROOKLYNN AICHHOLZ Not Available Start: 07-20-2024 End: 07-20-2024 Refill Brooklynn Aichholz [employer] Work Phone: [facility] Comment on above: Mixed hyperlipidemia (CMS/HCC); Bipolar affective disorder, remission status unspecified (CMS/HCC) Start: 07-02-2024 End: 07-02-2024 Refill Brooklynn Aichholz [employer] Work Phone: [facility] Comment on above: COVID (Primary Dx) Start: 06-17-2024 End: 06-17-2024 Telephone encounter [facility]ida Su[facility] MD [facility] Start: 06-17-2024 End: 06-17-2024 Evaluation and management of inpatient LIDA SUH [facility] Start: 06-16-2024 End: 06-16-2024 [facility] Start: 05-22-2024 End: 05-22-2024 Orders Only Lida Suh MD Work Phone: [facility] Comment on above: Malignant neoplasm o f overlapping sites of bladder ([facility]-HCC) (Primary Dx) Start: 04-15-2024 End: 04-15-2024 Refill Brooklynn Wandahholz [employer]ST[employer] Work Phone: [facility] Comment on above: Mixed hyperlipidemia (CMS/HCC); Bipolar affective disorder, remission status unspecified ([facility]/HCC) Start: 03-30-2024 End: 03-30-2024 Bamboo flowsheet Brooklynn Aichholz [employer] INSTALLER Work Phone: [facility] Start: 03-30-2024 End: 03-30-2024 Bamboo flowsheet Brooklynn Aichholz [employer] INSTALLER Work Phone: [facility] Start: 03-30-2024 End: 03-30-2024 Office outpatient visit 25 minutes Brooklynn Wandahholz [employer]ST[employer]ER Work Phone: [facility] Comment on above: Bipolar affective di sorder, remission status unspecified (CMS/HCC) (Primary Dx); Malignant neoplasm of overlapping sites of bladder (CMS/HCC); Tobacco user; Lump of skin; Contusion of scalp, initial encounter; Mixed hyperlipidemia (CMS/HCC) Start: 03-30-2024 End: 03-30-2024 ambulatory BROOKLYNN YEAGER Not Available Start: 03-18-2024 End: 03-18-2024 Telephone encounter Lida Suh MD Work Phone: [facility] Start: 03-18-2024 End: 03-18-2024 Evaluation and management of inpatient [facility] Start: 03-17-2024 End: 03-17-2024 ambulatory [facility] Phone Call Provider 1 [facility] - Pre Admit Start: 03-09-2024 End: 03-09-2024 ambulatory [facility] Start: 01-29-2024 End: 01-29-2024 Office outpatient visit 15 minutes Lida Suh MD Work Phone: [facility] Comment on above: Urinary incontinence , unspecified type (Primary Dx); Elevated PSA; Malignant neoplasm of overlapping sites of bladder ([facility]-HCC) Start: 01-29-2024 End: 01-29-2024 ambulatory LIDA [facility] Start: 01-21-2024 End: 01-21-2024 Telephone encounter Darcie GARCIA [facility] Start: 12-19-2023 End: 12-19-2023 Orders Only Lida Suh MD Work Phone: [facility] Start: 12-02-2023 End: 12-02-2023 ambulatory BROOKLYNN YEAGER [facility] Start: 12-01-2023 End: 12-02-2023 Evaluation and management of inpatient JOSE GARIBAY [facility] Start: 12-01-2023 End: 12-01-2023 Emergency department patient visit Brooklynn Yeager Facility:[facility] Start: 11-29-2023 End: 11-29-2023 Emergency department [facility] Start: 11-14-2023 End: 11-14-2023 [facility] Start: 11-13-2023 End: 11-13-2023 Telephone encounter Lida Suh MD Work Phone: [facility] Start: 11-13-2023 End: 11-13-2023 Office outpatient visit 25 minutes Lida Suh MD Work Phone: [facility] Comment on above: Malignant neoplasm o f overlapping sites of bladder (CMS-HCC) (Primary Dx); Elevated PSA Start: 11-13-2023 End: 11-13-2023 [facility] Start: 11-07-2023 End: 11-13-2023 Orders Only Lida Suh MD Work Phone: [facility] Comment on above: Hematuria, microscop ic (Primary Dx) Start: 10-31-2023 End: 10-31-2023 Telephone encounter Guanako Martines CMA [facility] Start: 10-30-2023 End: 10-30-2023 Telephone encounter Lida Suh MD Work Phone: [facility] Start: 10-17-2023 End: 10-17-2023 Patient encounter procedure [facility] Pre-Admission Testing 1 [facility] - Pre Admit Start: 09-04-2023 Telephone encounter Lida Suh MD Work Phone: [facility] Start: 09-04-2023 End: 09-04-2023 Office consultation new/estab patient 60 min Lida Suh MD Work Phone: [facility] Comment on above: Elevated PSA (Primar y Dx); Hematuria, microscopic Start: 09-04-2023 End: 09-04-2023 ambulatory [facility] Start: 08-27-2023 Refill Brooklynn Shobha [employer] Work Phone: [facility] Comment on above: Mixed hyperlipidemia (CMS/HCC) (Primary Dx) Start: 08-21-2023 Telephone encounter Brooklynn Gabbie martinez [employer]ST[employer]ER Work Phone: [facility] Start: 10-22-2022 End: 10-22-2022 Admission to same day surgery center Brooklynn Shobha Work Phone: [facility] [place] Start: 10-22-2022 End: 10-22-2022 ambulatory Brooklynn Joshi Wandasavagegavin Work Phone: [facility] Work Phone: Start: 10-03-2022 End: 10-03-2022 ambulatory Brooklynn Joshi Wandasavagedaltonjohnny Work Phone: [facility] Work Phone: Start: 10-03-2022 End: 10-03-2022 Departed Referred Brooklynn Wandasavagegavin Work Phone: [facility] [place] Work Phone: Start: 09-18-2022 End: 09-19-2022 ambulatory [employer]SULT[employer] BROOKLYNN WANDASavageDALTONZ Facility:[facility]1 Start: 09-04-2022 End: 09-05-2022 Emergency department patient visit Brooklynn Wandasavagedaltonz Work Phone: [facility] Work Phone: Start: 03-08-2022 End: 03-09-2022 ambulatory [employer] CONSULTANT BROOKLYNN AICHHOLZ Facility:[facility] Start: 11-03-2021 End: 11-03-2021 ambulatory [employer] CONSULTANT BROOKLYNN AICHHOLZ Facility:[facility] Start: 02-04-2018 Patient encounter KINJAL Gresham ity:[facility] Start: 02-03-2018 Patient encounter KINJAL Gresham ity:[facility] Procedures Date Procedure Procedure Detail Performing Clinician Start: 12-10-2024 TBH VITAMIN D 25 [place] Lis june Shobha [employer]ST[employer]ER Work Phone: Start: 10-12-2024 ALL BASIC METABOLIC PANEL Brooklynn Shobha [employer] INST[employer]ER Work Phone: Start: 09-11-2024 UPPER RESPIRATORY CULTURE Generic External Data Provider Start: 08-18-2024 MLR HEMOGLOBIN A1C Brooklynn Shobha [employer] INSTALLER Work Phone: Start: 08-13-2024 ALL LIPID PROFILE (FASTING) Brooklynn Shobha [employer] INSTALLER Work Phone: Start: 08-13-2024 ALL THYROID STIM HORMONE Brooklynn Shobha [employer] INSTALLER Work Phone: Start: 08-13-2024 [facility]CF CMP (CMP) (FOR R EMOTE [facility] USE) Brooklynn Shobha [employer]LL[employer] INSTALLER Work Phone: Start: 01-29-2024 MEASURE POST VOID RESIDUAL Lida Suh MD Work Phone: Start: 12-01-2023 Adult depression scr eening assessment Lida Suh MD Work Phone: Start: 11-13-2023 Follow-up visit Follow-up LIDA SUH Start: 10-22-2022 Excision of cyst Brooklynn June ruvalcaba Work Phone: Start: 10-03-2022 Colonoscopy Brooklynn Gabbie martinez [employer] INST[employer]ER Work Phone: Start: 09-04-2022 Plain X-ray abdomen Viv orourke Shobha Work Phone: Start: 09-04-2022 SARS-CoV-2, Influenz a & RSV (PCR) Brooklynn Shobha Work Phone: Start: 03-08-2022 PSA screening [employer] CONSULTANT BROOKLYNN YEAGER Comment on above: Performed By: #### P [facility] #### [facility] [address] [place] [address] Dr. Pablo Blanchard Plan of Treatment Date Care Activity Detail Author Start: 10-03-2032 Screening for malign ant neoplasm of colon [facility] Start: 08-23-2025 End: 08-23-2025 Patient encounter procedure 08/23/2025 1:45 PM EST Office Visit [facility] [address] [place] [address] [facility] [address] Lida Suh MD [facility] [place], [place] [phone] [facility] Start: 08-19-2025 Adult BMI Screening Adult BMI Screen ing [facility] Start: 08-19-2025 End: 07-20-2026 Prostatic specific antigen, diagnostic Prostatic specific antigen, diagnostic Lab Routine Elevated PSA Expected: 08/19/2025 (Approximate), Expires: 07/20/2026 [facility] Work Phone: Comment on above: Expected: 08/19/2025 (Approximate), Expires: 07/20/2026 Start: 08-19-2025 Tobacco Screening Tobacco Screening [facility] Start: 06-17-2025 Tobacco Screening Tobacco Screening [facility] Start: 04-28-2025 End: 04-28-2025 Patient encounter procedure 04/28/2025 8:40 AM EDT Office Visit [facility] [address] [place] [address] Brooklynn Yeager NP [address] [place] [address] [facility] Start: 03-18-2025 Tobacco Screening Tobacco Screening [facility] Start: 03-17-2025 Adult BMI Screening Adult BMI Screen ing [facility] Start: 03-15-2025 Influenza vaccination Influenza Vacc ine [facility] Start: 01-28-2025 Adult BMI Screening Adult BMI Screen ing [facility] Start: 01-28-2025 Tobacco Screening Tobacco Screening [facility] Start: 12-30-2024 End: 12-30-2024 Admission to same day surgery center 12/30/2024 8:00 AM EDT - 12/30/2024 8:30 AM EDT Surgery [facility] [address] [place] [phone] Lida Suh MD [address] [place] [address] CYSTOSCOPY [10290 (CPT )] [facility] Comment on above: CYSTOSCOPY [82729 (C PT )] Start: 12-30-2024 End: 12-30-2024 Cystourethroscopy [facility] Start: 12-30-2024 Subsequent hospital visit by physician 12/30/2024 8:00 AM EDT Hospital Encounter [facility] [address] [place] [phone] Lida Suh MD [address] [place] [address] [facility] Surgery Start: 12-29-2024 End: 12-29-2024 ambulatory 12/29/2024 4:10 PM EDT Support Visit [facility] - Pre Admit [address] [place] [address] [facility] - Pre Admit Start: 12-14-2024 End: 10-13-2025 25-hydroxyvitamin D3 [Mass/volume] in Serum or Plasma Vitamin D 25 hydroxy Lab Routine Vitamin D deficiency Expected: 12/14/2024 (Approximate), Expires: 10/13/2025 [facility] Work Phone: Comment on above: Expected: 12/14/2024 (Approximate), Expires: 10/13/2025 Start: 12-01-2024 Adult BMI Screening Adult BMI Screen ing [facility] Start: 11-30-2024 Depression Screening Depression Scre ening [facility] Start: 11-30-2024 Tobacco Screening Tobacco Screening [facility] Start: 11-12-2024 Adult BMI Screening Adult BMI Screen ing [facility] Start: 11-12-2024 Tobacco Screening Tobacco Screening [facility] Start: 10-29-2024 Adult BMI Screening Adult BMI Screen ing [facility] Start: 10-29-2024 Tobacco Screening Tobacco Screening [facility] Start: 10-16-2024 End: 08-18-2025 25-hydroxyvitamin D3 [Mass/volume] in Serum or Plasma Vitamin D 25 hydroxy Lab Routine Vitamin D deficiency Expected: 10/16/2024 (Approximate), Expires: 08/18/2025 [facility] Work Phone: Comment on above: Expected: 10/16/2024 (Approximate), Expires: 08/18/2025 Start: 10-16-2024 Adult BMI Screening Adult BMI Screen ing [facility] Start: 10-16-2024 Tobacco Screening Tobacco Screening [facility] Start: 10-05-2024 End: 10-05-2024 Patient encounter procedure 10/05/2024 8:40 AM EDT Office Visit [facility] [address] [place] [address] Brooklynn Yeager NP [address] [place] [address] [facility] Start: 09-04-2024 Adult BMI Screening Adult BMI Screen ing [facility] Start: 09-04-2024 Tobacco Screening Tobacco Screening [facility] Start: 08-19-2024 End: 08-19-2024 Patient encounter procedure 08/19/2024 3:45 PM EST Office Visit [facility] [address] [place] [phone] Lida Suh MD [address] [place] [address] [facility] Start: 08-14-2024 End: 08-14-2025 25-hydroxyvitamin D3 [Mass/volume] in Serum or Plasma Vitamin D 25 hydroxy Lab Routine Hypocalcemia Expected: 08/14/2024 (Approximate), Expires: 08/14/2025 [facility] Work Phone: Comment on above: Expected: 08/14/2024 (Approximate), Expires: 08/14/2025 Start: 08-14-2024 End: 08-14-2025 Hemoglobin A1c/Hemoglobin.total in Blood Hemoglobin A1c Lab Routine Hyperglycemia Expected: 08/14/2024 (Approximate), Expires: 08/14/2025 [facility] Comment on above: Expected: 08/14/2024 (Approximate), Expires: 08/14/2025 Start: 07-30-2024 End: 07-30-2025 CBC W Auto Differential panel - Blood CBC and differential Lab Routine Tobacco user Expected: 07/30/2024 (Approximate), Expires: 07/30/2025 [facility] Comment on above: Expected: 07/30/2024 (Approximate), Expires: 07/30/2025 Start: 07-30-2024 End: 07-30-2025 Comprehensive metabolic 2000 panel - Serum or Plasma Comprehensive metabolic panel Lab Routine Obesity (BMI 30-39.9) Bipolar disorder, current episode mixed, mild (CMS/HCC) Mixed hyperlipidemia (CMS/HCC) Expected: 07/30/2024 (Approximate), Expires: 07/30/2025 [facility] Comment on above: Expected: 07/30/2024 (Approximate), Expires: 07/30/2025 Start: 07-30-2024 End: 07-30-2025 Lipid 1996 panel - Serum or Plasma Lipid panel Lab Routine Mixed hyperlipidemia (CMS/HCC) Expected: 07/30/2024 (Approximate), Expires: 07/30/2025 [facility] Work Phone: Comment on above: Expected: 07/30/2024 (Approximate), Expires: 07/30/2025 Start: 07-30-2024 End: 07-30-2025 Thyrotropin [Units/volume] in Serum or Plasma TSH Lab Routine Bipolar disorder, current episode mixed, mild (CMS/HCC) Expected: 07/30/2024 (Approximate), Expires: 07/30/2025 [facility] Comment on above: Expected: 07/30/2024 (Approximate), Expires: 07/30/2025 Start: 07-30-2024 End: 07-30-2025 Thyroxine (T4) free [Mass/volume] in Serum or Plasma T4, free Lab Routine Bipolar disorder, current episode mixed, mild (CMS/HCC) Expected: 07/30/2024 (Approximate), Expires: 07/30/2025 [facility] Comment on above: Expected: 07/30/2024 [...] EST - 06/17/2024 12:00 PM EST Surgery [facility] [address] [place] [address] Lida Suh MD [address] [place] [address] [phone] CYSTOSCOPY [86354 (CPT )] [facility] Comment on above: CYSTOSCOPY [71860 (C PT )] Start: 06-17-2024 End: 06-17-2024 Cystourethroscopy [facility] Start: 06-17-2024 Subsequent hospital visit by physician 06/17/2024 11:30 AM EST Hospital Encounter [facility] [address] [place] [address] Lida Suh MD [address] [place] [address] [phone] [facility] Start: 06-16-2024 End: 06-16-2024 ambulatory 06/16/2024 3:40 PM EST Support Visit [facility] - Pre [place] [phone] [facility] - Pre Admit Start: 06-08-2024 End: 06-08-2024 Patient encounter procedure 06/08/2024 2:45 PM EST Office Visit [facility] [address] [place] [phone] Lida Suh MD [address] [place] [address] [facility] Start: 05-20-2024 End: 05-20-2024 Patient encounter procedure 05/20/2024 2:30 PM EST Office Visit [facility] [address] [place] [phone] Lida uSh MD [address] [place] [address] [facility] Start: 05-11-2024 End: 11-12-2024 Prostatic specific antigen, diagnostic Prostatic specific antigen, diagnostic Lab Routine Elevated PSA Expected: 05/11/2024 (Approximate), Expires: 11/12/2024 [facility] Comment on above: Expected: 05/11/2024 (Approximate), Expires: 11/12/2024 Start: 03-30-2024 End: 03-30-2024 Patient encounter procedure 03/30/2024 9:00 AM EDT Office Visit [facility] [address] [place] [address] Brooklynn Yeager NP [address] [place] [address] Arrived [facility] Comment on above: Arrived Start: 03-18-2024 End: 03-18-2024 Admission to same day surgery center 03/18/2024 8:00 AM EDT - 03/18/2024 8:30 AM EDT Surgery [facility] [address] [place] [address] Lida Suh MD [address] [place] [address] CYSTOSCOPY [50701 (CPT )] [facility] Comment on above: CYSTOSCOPY [93695 (C PT )] Start: 03-18-2024 End: 03-18-2024 Cystourethroscopy [facility] Start: 03-18-2024 Subsequent hospital visit by physician 03/18/2024 8:00 AM EDT Hospital Encounter [facility] [address] [place] [address] Lida Suh MD [address] [place] [address] [facility] Start: 03-17-2024 End: 03-17-2024 ambulatory 03/17/2024 4:20 PM EDT Support Visit [facility] - Pre Admit [address] [place] [address] [facility] - Pre Admit Start: 03-15-2024 COVID-19 Vaccine ( season) COVID-19 Vaccine ( season) [facility] Start: 03-15-2024 COVID-19 Vaccine ( season) COVID-19 Vaccine ( season) [facility] Start: 03-15-2024 Influenza vaccination Influenza Vacc ine [facility] Start: 02-13-2024 End: 11-12-2024 Cytology Cytology Pathology and Cytology Routine Malignant neoplasm of overlapping sites of bladder (CMS-HCC) Expected: 02/13/2024 (Approximate), Expires: 11/12/2024 [facility] Comment on above: Expected: 02/13/2024 (Approximate), Expires: 11/12/2024 Start: 02-13-2024 End: 11-12-2024 Urovysion for bladder Urovysion for bladder Lab Routine Malignant neoplasm of overlapping sites of bladder ([facility]-HCC) Expected: 02/13/2024 (Approximate), Expires: 11/12/2024 [facility] Comment on above: Expected: 02/13/2024 (Approximate), Expires: 11/12/2024 Start: 01-29-2024 End: 01-29-2024 Patient encounter procedure 01/29/2024 4:00 PM EDT Office Visit [facility] [address] [place] [phone] Lida Suh MD [address] [place] [address] [address] [facility] Start: 12-18-2023 End: 12-18-2023 Patient encounter procedure 12/18/2023 12:15 PM EDT Office Visit [facility] [address] [place] [phone] Ldia Suh MD [address] [place] [address] [facility] Start: 11-22-2023 End: 11-22-2023 Patient encounter procedure [facility] - [facility] Med[facility] Start: 11-13-2023 End: 11-12-2024 NM Whole body Bone Views NM bone scan whole body Imaging Routine Malignant neoplasm of overlapping sites of bladder ([facility]-HCC) Elevated PSA Expected: 11/13/2023, Expires: 11/12/2024 [facility] Comment on above: Expected: 11/13/2023 , Expires: 11/12/2024 Start: 11-13-2023 End: 11-13-2023 Patient encounter procedure 11/13/2023 11:45 AM EDT Office [facility] [address] [place] [address] [facility] [phone] Lida Suh MD [address] [place] [address] [facility] Start: 11-04-2023 End: 11-04-2023 Patient encounter procedure [facility] Start: 10-30-2023 End: 10-30-2023 Admission to same day surgery center 10/30/2023 9:30 AM EDT - 10/30/2023 10:30 AM EDT Surgery [facility] Surgery [address] [place] [phone] Lida Suh MD [address] [place] [address] CYSTOSCOPY [30647 (CPT )] [facility] Comment on above: CYSTOSCOPY [65206 (C PT )] Start: 10-30-2023 End: 10-30-2023 Cysto bladder w/ureteral catheterization CYSTOSCOPY RETROGRADE PYELOGRAM Hematuria, microscopic 10/30/2023 9:30 AM EDT [facility] Start: 10-30-2023 End: 10-30-2023 CYSTOSCOPY TRANSURETHRAL RESECTION BLADDER TUMOR CYSTOSCOPY TRANSURETHRAL RESECTION BLADDER TUMOR Hematuria, microscopic 10/30/2023 9:30 AM EDT [facility] Start: 10-30-2023 End: 10-30-2023 Cystourethroscopy CYSTOSCOPY Hematuria, microscopic 10/30/2023 9:30 AM EDT [facility] Start: 10-30-2023 End: 10-30-2023 Cystourethroscopy with biopsy CYSTOSCOPY BIOPSY BLADDER Hematuria, microscopic 10/30/2023 9:30 AM EDT [facility] Start: 10-30-2023 Subsequent hospital visit by physician 10/30/2023 9:30 AM EDT Hospital Encounter [facility] [address] [place] [phone] Lida Suh MD [facility] [place] [address] [facility] Start: 10-22-2023 End: 09-03-2024 Prostatic specific antigen, diagnostic Prostatic specific antigen, diagnostic Lab Routine Elevated PSA Expected: 10/22/2023, Expires: 09/03/2024 [facility] Comment on above: Expected: 10/22/2023 , Expires: 09/03/2024 Start: 09-26-2023 End: 09-26-2023 Patient encounter procedure 09/26/2023 9:00 AM EDT Office Visit [facility] [address] [place] [phone] Brooklynn Yeager NP [address] [place] [address] [facility] Start: 09-04-2023 End: 09-04-2024 CT Kidney and Ureter and Urinary bladder 3D post processing WO and W contrast IV CT urogram Imaging Routine Hematuria, microscopic Expected: 09/04/2023, Expires: 09/04/2024 [facility] Work Phone: Comment on above: Expected: 09/04/2023 , Expires: 09/04/2024 Start: 03-15-2023 COVID-19 Vaccine ( season) COVID-19 Vaccine ( season) [facility] Start: 03-15-2023 Influenza vaccination [facility] Start: 10-22-2022 [facility] Start: 09-04-2022 Plain X-ray abdomen XR abdomen min [address] [facility] Start: 09-04-2022 XR Abdomen Views [facility] Start: 1988 DTaP,Tdap and Td Vac cines (1 - Tdap) DTaP,Tdap and Td Vaccines (1 - Tdap) [facility] Start: 12-27-1987 Adult BMI Follow Up Plan Adult BMI Follow Up Plan [facility] Start: 1981 Depression Screening Depression Scre ening [facility] Start: 1969 Screening for malign ant neoplasm of colon [facility] Start: 1969 Tobacco Counseling Tobacco Counselin g [facility] End: 11-06-2024 Bacteria identified in Urine by Culture Urine Culture Microbiology Routine Hematuria, microscopic 1 Occurrences starting 11/07/2023 until 11/06/2024 [employer] Work Phone: Comment on above: 1 Occurrences starti ng 11/07/2023 until 11/06/2024 End: 11-12-2024 Bacteria identified in Urine by Culture Urine Culture Microbiology Routine Malignant neoplasm of overlapping sites of bladder ([facility]) 1 Occurrences starting 11/13/2023 until 11/12/2024 [employer] Work Phone: Comment on above: 1 Occurrences starti ng 11/13/2023 until 11/12/2024 Bacteria identified in Urine by Culture Urine Culture Microbiology Routine Malignant neoplasm of overlapping sites of bladder ([facility]) 11/13/2023 10:20 PM EDT [facility] End: 09-03-2024 Cytology Cytology Pathology and Cytology Routine Hematuria, microscopic 1 Occurrences starting 09/04/2023 until 09/03/2024 [facility] Comment on above: 1 Occurrences starti ng 09/04/2023 until 09/03/2024 Patient Education [facility] Work Phone: Patient referral [facility] Work Phone: Immunizations Immunization Date Immunization Notes Care Provider Fa cili 09-11-2022 zoster vaccine recombinant Lida Suh MD Work Phone: [facility] 05-31-2022 zoster vaccine recombinant Lida Suh MD Work Phone: [facility] Payers Date Payer Category Payer Medicaid HMO [facility] MEDICAID [id number] 2023 Medicaid [id number] 2023 Private Health Insurance [id number] 2023 Medicaid [id number] 1970 Unknown [id number] 2.16.840.1.375471.3.579. 2.593 1969 Unknown [id number] 2.16.840.1.281426.3.579. 2.593 1969 Unknown [id number] 2.16.840.1.747703.3.579. 2.1285 1969 Unknown [id number] 2.16.840.1.258924.3.579. 2.1285 1969 Unknown [id number] 2.16.840.1.665035.3.579. 2.1285 1969 Unknown [id number] 2.16.840.1.929804.3.579. 2.1285 1969 Unknown [id number] 2.16.840.1.732082.3.579. 2.1285 1969 Unknown [id number] 2.16.840.1.809599.3.579. 2.1285 1969 Unknown [id number] 2.16.840.1.310263.3.579. 2.1286 1969 Unknown [id number] 2.16.840.1.538374.3.579. 2.6 1969 Unknown [id number] 2.16.840.1.882773.3.579. 2.1259 1969 Unknown [id number] 2.16.840.1.879250.3.579. 2.1259 1969 Unknown [id number] 2.16.840.1.611106.3.579. 2.1259 1969 Unknown [id number] 2.16.840.1.716953.3.579. 2.6 1969 Unknown [id number] 2.16.840.1.079727.3.579. 2.6 1969 Unknown [id number] 2.16.840.1.414677.3.579. 2.1285 1969 Unknown [id number] 2.16.840.1.282952.3.579. 2.6 1969 Unknown [id number] 2.16.840.1.141985.3.579. 2.1285 1969 Unknown [id number] 2.16.840.1.015659.3.579. 2.1286 1960 Self-pay [id number] 1960 Unknown [id number] Unknown [id number] 2.16.840.1.554965.3.579. 2.593 Unknown [id number] 2.16.840.1.861458.3.579. 2.531 Social History Date Type Detail Facility Start: 09-04-2022 End: 10-22-2022 Tobacco smoking status RIIS Smoker (finding) [facility] Start: 1970 Sex Assigned At Male F [facility] Start: 07-17-2023 End: 07-30-2024 Tobacco smoking status NHIS Smokes tobacco daily [facility] Start: 07-15-1988 History of tobacco use Cigarette Smo ker [facility] Start: 07-17-2023 End: 03-23-2024 Cigarettes smoked current (pack per day) - Reported 1 [facility] Start: 08-21-2023 End: 10-05-2024 Alcohol intake Ex-drinker (finding) [facility] Start: 07-22-2023 End: 03-23-2024 Tobacco use panel [facility] Start: 07-21-2023 Alcohol Comment caffeine 1-2 c ups per day [facility] Start: 1970 Sex Assigned At Not on file [facility] How often do you nee d to have someone help you when you read instructions, pamphlets, or other written material from your doctor or pharmacy [SILS] Never [facility] Do you belong to any clubs or organizations such as zoroastrianism groups, unions, fraternal or athletic groups, or [...] the mortgage or rent on time? Yes [facility] Start: 09-04-2023 End: 03-17-2024 Tobacco use and exposure Smokeless tobacco non-user [facility] Start: 08-19-2024 End: 12-30-2024 Alcoholic beverage intake Lifetime non-drinker (finding) [facility] How often to you hav e a drink containing alcohol? Monthly or less [facility] How many standard dr inks containing alcohol do you have on a typical day? 1 or 2 [facility] Start: 08-06-2023 Sex Male (finding) [facility] Goals Date Patient Goal Desired Activity /State Personal health goal Clinical Notes 08-21-2023 to 12-30-2024 Telephone Encounter - Lida Suh MD - 12/30/2024 8:30 AM EDTTelephone Encounter - Liad Suh MD - 12/30/2024 8:30 AM EDTTelephone Encounter - Carol Robert CNA - 12/11/2024 3:50 PM EDT Note Date & Type Note Facility 12-30-2024 Miscellaneous Notes Cysto local [place] 6 months diagnosis history urothelial carcinoma documented in this encounter [facility] 12-30-2024 Telephone encounter Note Cysto local [place] 6 months diagnosis history urothelial carcinoma [facility] 12-11-2024 Miscellaneous Notes Pt calls stating [...] home. Pt informed documented in this encounter [facility] 12-11-2024 Telephone encounter Note Pt calls stating he is scheduled for a Cysto 12/30/24, pt states that last time he had cysto you prescribed pain meds before procedure. Pt is asking for pain meds ahead of time again. Please advice [facility] 12-11-2024 Telephone encounter Note Actually we will give him a Percocet when he arrives and after we get his consent. Someone must drive him home. [facility] 12-11-2024 Telephone encounter Note Pt informed [facility] 09-16-2024 Miscellaneous Notes Patient called to inquire if his cystoscopy will be every 6 months. I advised pt per Dr. uSh note: Cysto local [place] setup 6 months diagnosis history bladder carcinoma. Advised pt that Yoselynstella Suh production planner scheduler will call him when it is time to schedule his cysto. Pt advised understanding of this. documented in this encounter [facility] 09-16-2024 Telephone encounter Note Patient called to inquire if his cystoscopy will be every 6 months. I advised pt per Dr. Suh note: Cysto local [place] setup 6 months diagnosis history bladder carcinoma. Advised pt that Yoselyn Suh production planner scheduler will call him when it is time to schedule his cysto. Pt advised understanding of this. [facility] 08-19-2024 Evaluation + Plan note Associated Problem(s): Elevated PSA He does have some difficulty urinating in the morning. I did ask if it is bad enough for him to take it daily medication it was not. It is only isolated. He voids well otherwise. He is happy with the current state. [facility] 08-19-2024 Miscellaneous Notes Associated Problem(s): Elevated PSA He does have some difficulty urinating in the morning. I did ask if it is bad enough for him to take it daily medication it was not. It is only isolated. He voids well otherwise. He is happy with the current state. documented in this encounter [facility] 08-19-2024 History of Presen t illness Narrative Images from the original note were not included. [id number] [place] [address] [facility] [address] Patient: [place]o Abreu Date of : 1970 [...] Past Medical History: Diagnosis Date Bipolar disorder ([facility]) Bladder cancer ([facility]) Chronic constipation Depression Hyperlipidemia Visual impairment Past Surgical History: Procedure Laterality Date CHOLECYSTECTOMY 2020 COLONOSCOPY CYSTOSCOPY N/A 06/17/2024 Performed by Lida Suh MD at [facility] CYSTOSCOPY N/A 03/18/2024 Performed by Lida Suh MD at [facility] CYSTOSCOPY N/A 10/30/2023 Performed by Lida Suh MD at [facility] CYSTOSCOPY TRANSURETHRAL RESECTION BLADDER TUMOR N/A 10/30/2023 Performed by Lida Suh MD at [facility] LIPOMA RESECTION several History reviewed. No [...] Malignant neoplasm of overlapping sites of bladder ([facility]) Overview ==== 11/13/2023 ==== #### status post [...] for your understanding. documented in this encounter [facility] 07-30-2024 Instructions Brooklynn Yeager NP - 07/30/2024 8:40 AM EST Get fasting labs Continue with urology documented in this encounter [facility] 06-17-2024 Miscellaneous Notes Cysto local [place] setup 6 months diagnosis history bladder carcinoma. documented in this encounter [facility]17-2024 [facility] bladder [facility]. [facility] 03-30-2024 History of Presen t illness [...] Abdominal pain 09/26/2023 Abnormal TSH Bipolar disorder ([facility]) 07/22/2023 Chicken pox Cholelithiasis Constipation, chronic COVID-19 virus infection DDD (degenerative disc disease), lumbar Diverticulitis 06/26/2023 Genital warts 09/26/2023 History of HPV infection 09/26/2023 HLD (hyperlipidemia) ([facility]) 07/22/2023 Insomnia 09/26/2023 Lipoma 09/26/2023 [...] Bridge of nose with palpable lump: approx [id number], non tender no induration noted no fluctuance [...] of this condition documented in this encounter [facility] 03-18-2024 Miscellaneous Notes Cysto local [place] 3 months diagnosis history bladder carcinoma. documented in this encounter [facility] 03-18-2024 Telephone encounter Note Cysto local [place] 3 months diagnosis history bladder carcinoma. [facility] 03-17-2024 Nurse Note Preoperative Education Checklist- General Surgery date: 03/18/24 Surgery time: 8a Arrival time: 7a 1. Bring a photo ID and your insurance card with you the day of surgery. You will check in at the main lobby of the [facility]- registration desk is straight ahead as soon as you walk in. Tell them you are here for surgery. 2. If you have a Living Will/Durable Power of Relocation Associate for Health Care that is not on [...] after you have bathed. 5. NO nail japanese/acrylic on at least one finger. If you are having a hand, wrist or foot surgery then all nail japanese and artificial/acrylic nails must be removed from [...] please call the Preadmission Testing office at [phone], Mon.-Fri. 7 a.m.-3 p.m. Leave a voicemail if needed. Pre-Surgery Instructions: Medication Instructions atorvastatin (LIPITOR) 10 mg tablet Stop taking 0 days prior to procedure lamoTRIgine (LaMICtal) 100 mg tablet Take morning of procedure citalopram (CeleXA) 20 mg tablet Stop taking 0 days prior to procedure [facility] 03-17-2024 Miscellaneous Notes Preoperative Education Checklist- General Surgery date: 03/18/24 Surgery time: 8a Arrival time: 7a 1. Bring a photo ID and your insurance card with you the day of surgery. You will check in at the main lobby of the [facility]- registration desk is straight ahead as soon as you walk in. Tell them you are here for surgery. 2. If you have a Living Will/Durable Power of Relocation Associate for Health Care that is not on [...] after you have bathed. 5. NO nail japanese/acrylic on at least one finger. If you are having a hand, wrist or foot surgery then all nail japanese and artificial/acrylic nails must be removed from [...] please call the Preadmission Testing office at [phone], Mon.-Fri. 7 a.m.-3 p.m. Leave a voicemail if needed. Pre-Surgery Instructions: Medication Instructions atorvastatin (LIPITOR) 10 mg tablet Stop taking 0 days prior to procedure lamoTRIgine (LaMICtal) 100 mg tablet Take morning of procedure citalopram (CeleXA) 20 mg tablet Stop taking 0 days prior to procedure documented in this encounter [facility] 01-29-2024 Evaluation + Plan note Associated Problem(s): Malignant neoplasm of overlapping sites of bladder (CMS-HCC) Postop day of have clots and clot retention. This has resolved. He was started on finasteride and Flomax at the time of the ER visit. He was not on these before. He can stop those. [facility] 01-29-2024 Miscellaneous Notes Associated Problem(s): Malignant [...] well as finasteride documented in this encounter [facility] 01-29-2024 Evaluation + Plan note Associated Problem(s): Elevated PSA He can stop his Flomax as well as finasteride [facility] 01-29-2024 History of Presen t illness Narrative Images from the original note were not included. [id number] [place] [address] [address] [facility] [id number] Patient: [place]o Abreu Date of : 1970 [...] Past Medical History: Diagnosis Date Bipolar disorder ([facility]) Chronic constipation Depression Hyperlipidemia Visual impairment Past Surgical History: Procedure Laterality Date CHOLECYSTECTOMY 2020 COLONOSCOPY CYSTOSCOPY N/A 10/30/2023 Performed by Lida Suh MD at [facility] CYSTOSCOPY TRANSURETHRAL RESECTION BLADDER TUMOR N/A 10/30/2023 Performed by Lida Suh MD at [facility] History reviewed. No pertinent family history. Current [...] for your understanding. documented in this encounter [facility] 01-21-2024 Miscellaneous Notes Patient calls in he is out of his Tamsulosin and Finasteride which he states he was prescribed in the ER. He is asking if you can refill it until he sees him in the office on Saturday01/29/24 - He was in the [place] ER - He was urinating blood clots causing him to go into Urinary retention. [facility] in [place] These were both refilled by me on December 18 to the appropriate pharmacy Patient informed to call [facility] to have them fill, as they may be on file. documented in this encounter [facility] 01-21-2024 Telephone encounter Note Patient calls in he is out of his Tamsulosin and Finasteride which he states he was prescribed in the ER. He is asking if you can refill it until he sees him in the office on Saturday01/29/24 - He was in the [place] ER - He was urinating blood clots causing him to go into Urinary retention. [facility] in [place] [facility] 01-21-2024 Telephone encounter Note These were both refilled by me on December 18 to the appropriate pharmacy [facility] 01-21-2024 Telephone encounter Note Patient informed to call [facility] to have them fill, as they may be on file. [facility] 12-19-2023 Miscellaneous Notes Richard from [facility] at Dr. Olsen's office in [place] is asking if pt is to continue [...] let pt know. documented in this encounter [facility] 12-19-2023 Telephone encounter Note Ardana from [facility] at Dr. Olsen's office in [place] is asking if pt is to continue on the Flomax and the Proscar for more than a month? He was prescribed these at the ER and was only given 30 days worth of each. Pt was to see you yesterday, but is now scheduled for 01/29/2024. [facility] 12-19-2023 Telephone encounter Note I refilled those prescriptions when we see him in January we can determine what to do [facility] 12-19-2023 Telephone encounter Note Ardana was notified and will let pt know. [facility] 11-13-2023 Evaluation + Plan note Associated Problem(s): Malignant neoplasm of overlapping sites of bladder (CMS-HCC) Patient with incidental finding CT urogram some bony changes. PSA is really not the elevated actually PSA is better now. Talked about potential metastasis. Certainly need a bone scan to evaluate. Return clinic. [facility] 11-13-2023 Miscellaneous Notes Associated Problem(s): Malignant neoplasm of overlapping sites of bladder (CMS-HCC) Patient with incidental finding CT urogram some bony changes. PSA is really not the elevated actually PSA is better now. Talked about potential metastasis. Certainly need a bone scan to evaluate. Return clinic. documented in this encounter [facility] 11-13-2023 Miscellaneous Notes 3-4 months cysto local [place] diagnosis history urothelial carcinoma. Urine for fish and cytology 2 weeks prior. documented in this encounter [facility] 11-13-2023 Telephone encounter Note 3-4 months cysto [facility] diagnosis history urothelial carcinoma. Urine for fish and cytology 2 weeks prior. [facility] 11-13-2023 History of Presen t illness Narrative Images from the original note were not included. [id number] [place] [address] [facility] [address] Patient: Reno Abreu Date of : 1970 [...] Past Medical History: Diagnosis Date Bipolar disorder ([facility]) Chronic constipation Depression Hyperlipidemia Visual impairment Past Surgical History: Procedure Laterality Date CHOLECYSTECTOMY 2020 COLONOSCOPY CYSTOSCOPY N/A 10/30/2023 Performed by Lida Suh MD at [facility] CYSTOSCOPY TRANSURETHRAL RESECTION BLADDER TUMOR N/A 10/30/2023 Performed by Lida Suh MD at [facility] History reviewed. No pertinent family history. Current Outpatient Medications Medication Sig Dispense Refill atorvastatin (LIPITOR) 10 mg tablet Take 1 tablet (10 mg total) by mouth in the morning. citalopram (CeleXA) 20 mg tablet Take 1 tablet (20 mg total) by mouth in the morning. lamoTRIgine (LaMICtal) 100 mg tablet Take 1 tablet (100 mg total) by mouth in the morning. libanztjm-wgvxt-vms (URO-MP) 118-10-40.8-36 mg capsule Take 1 capsule [...] scan whole body; Future Other orders - treasure-s.kwxj-fphox-kjm (URO-MP) 118-10-40.8-36 mg capsule; Take 1 capsule [...] for your understanding. documented in this encounter [facility] 11-07-2023 Miscellaneous Notes Patient is having intermittent blood with urination. Patient also states he is urinating frequently and sometimes its a very good stream but he oconnell at the end of the stream, then he tries to push a little more and it drips blood. Patient just wants to be sure things are going as it should. Pt states he [facility] in [facility] f/u appt is scheduled for 11/13/2023 He is also asking about his path results. Findings are very typical postprocedure. Will review pathology at office appointment. Should he wish I did place an order for urine culture he can always have that obtained. Patient was informed documented in this encounter [facility] 11-07-2023 Telephone encounter Note Patient is having intermittent blood with urination. Patient also states he is urinating frequently and sometimes its a very good stream but he oconnell at the end of the stream, then he tries to push a little more and it drips blood. Patient just wants to be sure things are going as it should. Pt states he lives in [place] Pt's f/u appt is scheduled for 11/13/2023 He is also asking about his path results. [facility] 11-07-2023 Telephone encounter Note Findings are very typical postprocedure. Will review pathology at office appointment. Should he wish I did place an order for urine culture he can always have that obtained. [facility] 11-07-2023 Telephone encounter Note Patient was informed [facility] 10-31-2023 Miscellaneous Notes Patient called in stating he is in a lot of pain every time he goes to urinate. [place]o would like something sent over to the pharmacy on file. Please advise Pyridium sent to his pharmacy documented in this encounter [facility] 10-31-2023 Telephone encounter Note Patient called in stating he is in a lot of pain every time he goes to urinate. [place] would like something sent over to the pharmacy on file. Please advise [facility] 10-31-2023 Telephone encounter Note Pyridium sent to his pharmacy [facility] 10-30-2023 Miscellaneous Notes Patient needs to follow up in the office in [place] 2-3 weeks or so. Follow up on the TURBT. documented in this encounter [facility] 10-30-2023 Telephone encounter Note Patient needs to follow up in the office in [place] 2-3 weeks or so. Follow up on the TURBT. [facility] 10-17-2023 Instructions Tiffanie Altamirano RN - 10/17/2023 9:00 AM EDT Preoperative Education Checklist- General Surgery date: 10/30/23 Surgery time: 930a Arrival time: 730a 1. Bring a photo ID and your insurance card with you the day of surgery. You will check in at the main lobby of the [facility]- registration desk is straight ahead as soon as you walk in. Tell them you are here for surgery. 2. If you have a Living Will/Durable Power of Relocation Associate for Health Care that is not on [...] after you have bathed. 5. NO nail japanese/acrylic on at least one finger. If you are having a hand, wrist or foot surgery then all nail japanese and artificial/acrylic nails must be removed from [...] please call the Preadmission Testing office at [phone], Mon.-Fri. 7 a.m.-3 p.m. Leave a voicemail [...] with your doctor. documented in this encounter [facility] 09-04-2023 Miscellaneous Notes Cysto potential retrograde pyelogram. Mac anesthesia [place]. Possible biopsy. Diagnosis is hematuria. documented in this encounter [facility] 09-04-2023 Telephone encounter Note Cysto potential retrograde pyelogram. [facility] anesthesia [place]. Possible biopsy. Diagnosis is hematuria. [facility] 09-04-2023 Evaluation + Plan note Associated [...] system. The patient acknowledges this and agrees. [facility] 09-04-2023 Miscellaneous Notes Associated Problem(s): Hematuria, [...] this and agrees. documented in this encounter [facility] 09-04-2023 History of Presen t illness Narrative Images from the original note were not included. [id number] [place] [address] [facility] [address] Patient: [place]o Abreu Date of : 1970 [...] for your understanding. documented in this encounter [facility] 08-21-2023 Telephone encounter Note pt called needing a refill on his lamoTRIgine (LaMICtal) 100 MG tablet and citalopram (CeleXA) 20 MG tablet [facility] 08-21-2023 Miscellaneous Notes pt called needing a refill on his lamoTRIgine (LaMICtal) 100 MG tablet and citalopram (CeleXA) 20 MG tablet documented in this encounter [facility] Evaluation note No assessment inform [facility] Work Phone: Evaluation note Diagnosis Bipolar affective disorder, remission status unspecified (CMS/HCC)- Primary documented in this encounter [facility]* Diagnosis Mixed hyperlipidemia (CMS/HCC)- Primary Mixed hyperlipidemia documented in this encounter [facility]* Diagnosis Mixed hyperlipidemia (CMS/HCC) [...] D deficiency- Primary documented in this encounter [facility]* Diagnosis Elevated PSA- Primary [...] Primary Microscopic hematuria [facility] Diagnosis Malignant neoplasm of overlapping sites of bladder (CMS-HCC)- Primary Elevated PSA Elevated prostate specific antigen (PSA) [facility] Diagnosis Elevated PSA- Primary Elevated prostate specific antigen (PSA) Hematuria, microscopic Microscopic hematuria [facility] Diagnosis Malignant neoplasm of overlapping sites of bladder (CMS-HCC)- Primary Urinary incontinence, unspecified type- Primary Elevated PSA Elevated prostate specific antigen (PSA) Malignant neoplasm of overlapping sites of bladder (CMS-HCC) Malignant neoplasm of overlapping sites of bladder (CMS-HCC) [facility] Diagnosis Elevated PSA- [...] of bladder (CMS-HCC) documented in this encounter [facility]* Diagnosis Diverticulitis- Primary Diverticulitis [...] D deficiency- Primary documented in this encounter [facility]* Diagnosis Diverticulitis- Primary Diverticulitis [...] D deficiency- Primary documented in this encounter [facility]* Diagnosis Elevated PSA- Primary [...] of bladder (CMS-HCC) documented in this encounter [facility]* Diagnosis Diverticulitis- Primary Diverticulitis [...] Abdominal pain 09/26/2023 Abnormal TSH Bipolar disorder ([facility] [facility] 07/22/2023 Chicken pox Cholelithiasis Constipation, chronic COVID-19 virus infection DDD (degenerative disc disease), lumbar Diverticulitis 06/26/2023 Genital warts 09/26/2023 History of HPV infection 09/26/2023 HLD (hyperlipidemia) ([facility]) 07/22/2023 Insomnia 09/26/2023 Lipoma 09/26/2023 [...] of the risks of continued smoking: stroke, AK, all forms of cancer, lung disease, and [...] of the risks of continued smoking: stroke, AK, all forms of cancer, lung disease, and [...] with Urology for mgmt documented in this encounter[facility] Dis[facility] instructions Additional Instructions As we discussed, your symptoms of excessive sleepiness during the day, persistent fatigue, and loud snoring suggest possible sleep apnea. Please follow up with your doctor about this as you may need to be referred for a sleep study. MiraLax may be used daily to stay regular and prevent constipation. May be taken twice daily until constipation is resolved.[facility] Work Phone: InstructionsNot on filedocumented [...] bone scan whole body Lida Suh MD [address] [place] [address] [facility] [address] [place] [address] Phone: [phone] Referral ID Status Reason Start Date Expiration Date V isits Requested Visits Authorized [id number] PREG Nurse Review 11/13/2023 11/12/2024 5 5 Specialty Diagnoses / Procedures Referred By Helen hayes Referred To Contact Radiology Diagnoses Hematuria, microscopic Procedures CT urogram Lida Suh MD [address] [place] [address] Referral ID Status Reason Start Date Expiration Date V isits Requested Visits Authorized [id number] Pending Review 09/04/2023 09/03/2024 1 1 Specialty Diagnoses / Procedures Referred By Helen hayes Referred To Contact Diagnoses Urinary incontinence, unspecified type Procedures Measure post void residual Lida Suh MD [address] [place] [address] Referral ID Status Reason Start Date Expiration Date V isits Requested Visits Authorized [id number] Pending Review 01/29/2024 01/28/2025 1 1 Additional Source Comments (unrecognized sect ion and content) No Status Records FoundNo Status Records FoundNo Status Records FoundNo Status Records FoundNo Status Records FoundNo Status Records FoundNo Status Records Found INFORMATION SOURCE (unrecogn ized section and content) DATE CREATED AUTHOR 02/04/2018 Joel Vidyo [facility] DATE CREATED AUTHOR AUTHOR'S ORGANIZ ATION 10/02/2022 [facility] DATE CREATED AUTHOR AUTHOR'S ORGANIZ ATION 12/03/2023 [facility] DATE CREATED AUTHOR AUTHOR'S ORGANIZ ATION 12/11/2023 [facility] DATE CREATED AUTHOR AUTHOR'S ORGANIZ ATION 08/22/2024 [facility] DATE CREATED AUTHOR AUTHOR'S ORGANIZ ATION 10/05/2024 [facility] EPIC DATE CREATED AUTHOR AUTHOR'S ORGANIZ ATION 01/09/2025 [facility] Care Teams (unrecognized sec tion and content) [...] Active Brooklynn Yeager Primary Care Provider Active Tabulating Clerk Relationship Specialty Start Date End Date Eusebio Schneider MD [address] [place] [address] PCP - General Family Medicine 07/16/23 Brooklynn Yeager NP [address] [place] [address] Nurse Practitioner Family Medicine 05/15/23 Tabulating Clerk Relationship Specialty Start Date End Date Eusebio Schneider MD [address] [place] [address] PCP - General Family Medicine 07/16/23 Brooklynn Yeager NP [address] [place] [address] Nurse Practitioner Family Medicine 05/15/23 Tabulating Clerk Relationship Specialty Start Date End Date Eusebio Schneider MD [address] [place] [address] PCP - General Family Medicine 09/26/23 Brooklynn Yeager NP [address] [place] [address] PCP - [facility] 01/13/24 Brooklynn Yeager NP [address] [place] [address] Nurse Practitioner Family Medicine 05/15/23 Brooklynn Yeager NP [address] [place] [address] Nurse Practitioner Family Medicine 09/26/23 Tabulating Clerk Relationship Specialty Start Date End Date Eusebio Schneider MD [address] [place] [address] PCP - General Family Medicine 09/26/23 Brooklynn Yeager NP [address] [place] [address] PCP - [facility] 01/13/24 Broolkynn Yeager NP [address] [place] [address] Nurse Practitioner Family Medicine 05/15/23 Brooklynn Yeager NP [address] [place] [address] Nurse Practitioner Family Medicine 09/26/23 Tabulating Clerk Relationship Specialty Start Date End Date Eusebio Schneider MD [address] [place] [address] PCP - General Family Medicine 09/26/23 Brooklynn Yeager NP [address] [place] [address] PCP - [facility] 01/13/24 Brooklynn Yeager NP [address] [place] [address] Nurse Practitioner Family Medicine 05/15/23 Brooklynn Yeager NP [address] [place] [address] Nurse Practitioner Family Medicine 09/26/23 Tabulating Clerk Relationship Specialty Start Date End Date Eusebio Schneider MD [address] [place] [address] PCP - General Family [facility] 09/26/23 Brooklynn Yeager NP [address] [place] [address] PCP - [facility] 01/13/24 Brooklynn Yeager NP [address] [place] [address] Nurse Practitioner Family Medicine 05/15/23 Brooklynn Yeager NP [address] [place] [address] Nurse Practitioner Family Medicine 09/26/23 Tabulating Clerk Relationship Specialty Start Date End Date Eusebio Schneider MD [address] [place] [address] PCP - General Family Medicine 09/26/23 Brooklynn Yeager NP [address] [place] [address] PCP - [facility] 01/13/24 Brooklynn Yeager NP [address] [place] [address] Nurse Practitioner Family Medicine 05/15/23 Brooklynn Yeager NP [address] [place] [address] Nurse Practitioner Family Medicine 09/26/23 Tabulating Clerk Relationship Specialty Start Date End Date Eusebio Schneider MD [address] [place] [address] PCP - General [facility] 09/26/23 Brooklynn Yeager NP [address] [place] [address] PCP - [facility] 01/13/24 Brooklynn Yeager NP [address] [place] [address] Nurse Practitioner Family Medicine 05/15/23 Brooklynn Yeager NP [address] [place] [address] Nurse Practitioner Family Medicine 09/26/23 Tabulating Clerk Relationship Specialty Start Date End Date Eusebio Schneider MD [address] [place] [address] PCP - General Family Medicine 09/26/23 Brooklynn Yeager NP [address] [place] [address] PCP - [facility] 01/13/24 Brooklynn Yeager NP [address] [place] [address] Nurse Practitioner Family Medicine 05/15/23 Brooklynn Yeager NP [address] [place] [address] Nurse Practitioner Family Medicine 09/26/23 Tabulating Clerk Relationship Specialty Start Date End Date Eusebio Schneider MD [address] [place] [address] PCP - General Family [facility] 09/26/23 Brooklynn Yeager NP [address] [place] [address] PCP - [facility] 01/13/24 Brooklynn Yeager NP [address] [place] [address] Nurse Practitioner Family Medicine 05/15/23 Brooklynn Yeager NP [address] [place] [address] Nurse Practitioner Family Medicine 09/26/23 Tabulating Clerk Relationship Specialty Start Date End Date Eusebio Schneider MD [address] [place] [address] PCP - General Family Medicine 09/26/23 Brooklynn Yeager NP [address] [place] [address] PCP - [facility] 01/13/24 Brooklynn Yeager NP [address] [place] [address] Nurse Practitioner Family Medicine 05/15/23 Brooklynn Yeager NP [address] [place] [address] Nurse Practitioner Family Medicine 09/26/23 Tabulating Clerk Relationship Specialty Start Date End Date Eusebio Schneider MD [address] [place] [address] PCP - General Family Medicine 09/26/23 Brooklynn Yeager NP [address] [place] [address] PCP - [facility] 01/13/24 Brooklynn Yeager NP [address] [place] [address] Nurse Practitioner Family Medicine 05/15/23 Brooklynn Yeager NP [address] [place] [address] Nurse Practitioner Family Medicine 09/26/23 Tabulating Clerk Relationship Specialty Start Date End Date [facility] - General Nurse Practitioner 09/04/23 Tabulating Clerk Relationship Specialty Start Date End Date Brooklynn Yeager [facility] [address] [place] [address] PCP - General Nurse Practitioner 09/04/23 Tabulating Clerk Relationship Specialty Start Date End Date [facility] Ye[facility] [address] [place] [address] PCP - General Nurse Practitioner 09/04/23 Tabulating Clerk Relationship Specialty Start Date End Date [facility] [address] [place] [address] PCP - General Nurse Practitioner 09/04/23 Tabulating Clerk Relationship Specialty Start Date End Date [facility] [address] [place] [address] PCP - General Nurse Practitioner 09/04/23 Tabulating Clerk Relationship Specialty Start Date End Date [facility] [address] [place] [address] PCP - General Nurse Practitioner 09/04/23 Tabulating Clerk Relationship Specialty Start Date End Date Brooklynn Yeager [facility] [address] [place] [address] PCP - General Nurse Practitioner 09/04/23 Tabulating Clerk Relationship Specialty Start Date End Date Brooklynn Yeager [facility] [address] [place] [address] PCP - General Nurse Practitioner 09/04/23 Tabulating Clerk Relationship Specialty Start Date End Date Brooklynn Yeager [facility] [address] [place] [address] PCP - General Nurse Practitioner 09/04/23 Tabulating Clerk Relationship Specialty Start Date End Date Brooklynn Yeager [facility] [address] [place] [address] PCP - General Nurse Practitioner 09/04/23 Tabulating Clerk Relationship Specialty Start Date End Date Brooklynn Yeager [facility] [address] [place] [address] PCP - General Nurse Practitioner 09/04/23 Tabulating Clerk Relationship Specialty Start Date End Date Brooklynn Yeager [facility] [address] [place] [address] PCP - General Nurse Practitioner 09/04/23 Tabulating Clerk Relationship Specialty Start Date End Date Brooklynn Yeager [facility] PCP - General Nurse Practitioner 09/04/23 Tabulating Clerk Relationship Specialty Start Date End Date Brooklynn Yeager R[employer]K [employer] PCP - General Nurse Practitioner 09/04/23 Tabulating Clerk Relationship Specialty Start Date End Date Brooklynn Yeager [employer] PCP - General Nurse Practitioner 09/04/23 Tabulating Clerk Relationship Specialty Start Date End Date Brooklynn Yeager [employer] PCP - General Nurse Practitioner 09/04/23 Tabulating Clerk Relationship Specialty Start Date End Date Eusebio Schneider MD [address] [place] [address] PCP - General Family Medicine 09/26/23 Brooklynn Yeager NP [address] [place] [address] PCP - [facility] 01/13/24 Brooklynn Yeager NP [address] [place] [address] Nurse Practitioner Family Medicine 05/15/23 Brooklynn Yeager NP [address] [place] [address] Nurse Practitioner Family Medicine 09/26/23 Tabulating Clerk Relationship Specialty Start Date End Date Brooklynn Yeager [employer] PCP - General Nurse Practitioner 09/04/23 Tabulating Clerk Relationship Specialty Start Date End Date Eusebio Schneider MD [address] [place] [address] PCP - General Family Medicine 09/26/23 Brooklynn Yeager NP [address] [place] [address] PCP - [facility] 01/13/24 Brooklynn Yeager NP [address] [place] [address] Nurse Practitioner Family Medicine 05/15/23 Brooklynn Yeager NP [address] [place] [address] Nurse Practitioner Family Medicine 09/26/23 Tabulating Clerk Relationship Specialty Start Date End Date Eusebio Schneider MD [address] [place] [address] PCP - General [facility] 09/26/23 Brooklynn Yeager NP [address] [place] [address] PCP - [facility] 01/13/24 Brooklynn Yeager NP [address] [place] [address] Nurse Practitioner Family Medicine 05/15/23 Brooklynn Yeager NP [address] [place] [address] Nurse Practitioner Family Medicine 09/26/23 Tabulating Clerk Relationship Specialty Start Date End Date Eusebio Schneider MD [address] [place] [address] PCP - General Family Medicine 09/26/23 Brooklynn Yeager NP [address] [place] [address] PCP - [facility] 01/13/24 Brooklynn Yeager NP [address] [place] [address] Nurse Practitioner Family Medicine 05/15/23 Brooklynn Yeager NP [address] [place] [address] Nurse Practitioner Family Medicine 09/26/23 Tabulating Clerk Relationship Specialty Start Date End Date Brooklynn Yeager APRN[employer] PCP - General Nurse Practitioner 09/04/23 Tabulating Clerk Relationship Specialty Start Date End Date Eusebio Schneider MD [address] [place] [address] PCP - General Family Medicine 09/26/23 Brooklynn Yeager NP [address] [place] [address] PCP - [facility] 01/13/24 Brooklynn Yeager NP [address] [place] [address] Nurse Practitioner Family Medicine 05/15/23 Brooklynn Yeager NP [address] [place] [address] Nurse Practitioner Family Medicine 09/26/23 Goals (unrecognized [...] BE BASED ON THE PRIMARY CLINICAL RECORDS. [employer] provides no warranty or guarantee of the accuracy or completeness of information in this document.
[2025-04-23 21:15] LABS: Hematocrit 46.1 % (42.0-54.0); Hemoglobin 15.7 g/dL (14.0-18.0); Immature Granulocytes Abs Auto 0.02 10^3/uL (0.00-0.03); Immature Granulocytes Pct Auto 0.3 % (0.0-0.5); Lymphocytes Absolute Auto 1.7 10^3/uL (1.2-3.8); Mean Corpuscular HGB Conc 34.1 g/dL (29.9-35.2); Mean Corpuscular Hemoglobin 31.0 pg (25.9-34.0); Mean Corpuscular Volume 90.9 fL (80.0-94.0); Platelet Count 215 10^3/uL (150-450); Red Blood Count 5.07 10^6/uL (4.70-6.10); White Blood Count 6.8 10^3/uL (4.0-11.0)
[2025-04-23 21:41] LABS: Anion Gap 9.8; Blood Urea Nitrogen 14.0 mg/dL (7.0-18.0); Calcium 8.4 mg/dL (8.5-10.1); Carbon Dioxide 30.8 mmol/L (21.0-32.0); Chloride 104 mmol/L (98-107); Creatine Kinase 64 U/L (39-308); Estimated GFR (African America >60 (>=60 mL/min/1.73m^2); Estimated GFR (Non-African Ame >60 (>=60 mL/min/1.73m^2); Glucose 144 mg/dL (74-106); Potassium 3.6 mmol/L (3.5-5.1); Sodium 141 mmol/L (136-145)
[2025-04-23] MEDS: METHOCARBAMOL 500 MG TABLET 1000 MG PO (21:46)
[2025-04-23] MEDS: IBUPROFEN 400 MG TABLET 800 MG PO (21:46)
--- NOTE | 2025-04-24 00:53 | ED.GENADUL1 ---
HPI HPI - General Adult General Chief complaint: Extremity Problem, Nontraumatic Stated complaint: PAIN IN BACK OF LEG NOW MOVED TO THE FRONT Time Seen by Provider: 04/23/25 20:49 Source: patient Mode of arrival: walk-in Limitations: no limitations History of Present Illness HPI narrative: Patient is a 54-year-old male presenting to the emergency department for evaluation of right lower leg pain. Patient states that approxi-4 hours ago, he was sleeping when he was awoken by pain in his right lower extremity. He states the pain is located in the calf and into his eric. He states the pain intermittently occurs, when he does, it is severe in nature. He states he is currently asymptomatic, but during my interview, he started complaining of pain. He denies any trauma to the area. He denies any history of DVT/PE. No chest pain or shortness of breath. No nausea or vomiting. No fevers or chills. He denies any weakness or numbness/tingling in extremity. He is still able to ambulate and denies any loss of range of motion. Related Data Home Medications ?Medication ?Instructions ?Recorded ?Confirmed atorvastatin 10 mg tablet 10 mg PO DAILY 11/28/23 04/23/25 citalopram 10 mg tablet 10 mg PO DAILY 11/28/23 04/23/25 lamotrigine 100 mg tablet 100 mg PO Q12H 11/28/23 04/23/25 cholecalciferol (vitamin D3) 125 125 mcg PO DAILY 04/23/25 04/23/25 mcg (5,000 unit) capsule Allergies Allergy/AdvReac Type Severity Reaction Status Date / Time acetaminophen (From Vicodin) AdvReac constipatio Verified 04/23/25 20:50 n hydrocodone (From Vicodin) AdvReac constipatio Verified 04/23/25 20:50 n Opioid HPI Opioid Management Most Recent Opioid Data: Last Pain Scale 10 04/23/25, 20:47 Review of Systems ROS Status of ROS 10 or more systems reviewed and unremarkable except as noted in history and below PFSH PFSH Surgical History (Updated 11/28/23 @ 19:15 by Costa Mcknight) Hx of cholecystectomy ?Z90.49 - Acquired absence of other specified parts of digestive tract (ICD-10) Social History Little interest or pleasure in doing things: not at all Feeling down, depressed, or hopeless: not at all Exam Narrative Exam Narrative: CONSTITUTIONAL: Well-appearing, answering questions and following commands appropriately SKIN: Was warm and dry. EYES: Sclerae white. EARS, NOSE, THROAT: Moist oral mucosa. RESPIRATORY: Nonlabored respirations. CARDIOVASCULAR: Normal rate and regular rhythm. 2+ DP pulses bilaterally. The right lower extremities warm and well-perfused. GASTROINTESTINAL: Abdomen is nondistended. MUSCULOSKELETAL: The right lower extremity appears normal without gross deformities. There is no tenderness to palpation along the tibia or knee. There is no peripheral edema. Compartments are soft and compressible. Full range of motion with knee flexion/extension and ankle dorsi/plantarflexion. NEUROLOGIC: Patient is awake and alert. 5/5 strength and sensation intact to light touch in the distal right lower extremity. Constitutional Vital Signs, click to edit/add: Last Vital Signs Temp 98.2 F 04/23/25 20:47 Pulse 64 04/23/25 20:47 Resp 18 04/23/25 20:47 BP 116/79 04/23/25 20:47 Pulse Ox 99 04/23/25 20:47 O2 Del Method Room Air 04/23/25 20:47 Course Vital Signs Vital signs: Vital Signs Temperature 98.2 F 04/23/25 20:47 Pulse Rate 64 04/23/25 20:47 Respiratory Rate 18 04/23/25 20:47 Blood Pressure 116/79 04/23/25 20:47 Pulse Oximetry 99 04/23/25 20:47 Oxygen Delivery Method Room Air 04/23/25 20:47 Temperature 98.2 F 04/23/25 20:47 Pulse Rate 64 04/23/25 20:47 Respiratory Rate 18 04/23/25 20:47 Blood Pressure 116/79 04/23/25 20:47 Pulse Oximetry 99 04/23/25 20:47 Oxygen Delivery Method Room Air 04/23/25 20:47 Medical Decision Making MDM Narrative Medical decision making narrative: Patient is a 54-year male presenting to the emergency department for a history of atraumatic distal right lower extremity pain. His vital signs on arrival are within normal limits. He is afebrile hemodynamically stable. Examination as noted above. The right distal lower extremity is neurovascularly intact with good distal pulses/perfusion and range of motion. My clinical impression is that the patient symptoms are secondary to musculoskeletal pain. I did order a duplex ultrasound to rule out DVT. X-rays were ordered to rule out any acute osseous abnormalities. Laboratory studies obtained to rule out underlying electrolyte derangement or elevations in CPK. He was treated symptomatic with oral ibuprofen and Robaxin. Laboratory studies were unremarkable. No significant electrolyte or metabolic derangement. No evidence of acute kidney injury. No anemia, leukocytosis, or thrombocytopenia. CPK normal. Duplex ultrasound demonstrated no evidence of acute DVT. X-rays of the right tib-fib independently reviewed and interpreted by myself and radiology demonstrate no acute osseous abnormalities. I do believe the patient is stable for discharge. Patient's presentation is most likely consistent with musculoskeletal pain. They were instructed to follow up with their PCP for further care. Return precautions were given including any new or worsening symptoms. Patient understands and agrees to the plan. FINAL IMPRESSION: #Acute distal right lower extremity pain DISPOSITION: Discharged home CONDITION: Good Medical Records Medical records reviewed: Yes I reviewed the patient's medical records Lab Data Lab results reviewed: Yes I reviewed the patient's lab results Labs: Lab Results 04/23/25 Range/Units 21:13 WBC 6.8 (4.0-11.0) 10^3/uL RBC 5.07 (4.70-6.10) 10^6/uL Hgb 15.7 (14.0-18.0) g/dL Hct 46.1 (42.0-54.0) % MCV 90.9 (80.0-94.0) fL MCH 31.0 (25.9-34.0) pg MCHC 34.1 (29.9-35.2) g/dL RDW 12.1 (11.0-15.0) % Plt Count 215 (150-450) 10^3/uL MPV 9.6 (9.5-13.5) fL Neut % (Auto) 65.5 (43.0-75.0) % Lymph % (Auto) 25.2 (20.5-60.0) % [place] % (Auto) 5.9 (1.7-12.0) % Eos % (Auto) 2.7 (0.9-7.0) % Baso % (Auto) 0.4 (0.2-2.0) % Neut # (Auto) 4.4 (1.4-6.5) 10^3/uL Lymph # (Auto) 1.7 (1.2-3.8) 10^3/uL [place] # (Auto) 0.4 (0.3-0.8) 10^3/uL Eos # (Auto) 0.2 (0.0-0.7) 10^3/uL Baso # (Auto) 0.0 (0.0-0.1) 10^3/uL Abs Immat Gran (auto) 0.02 (0.00-0.03) 10^3/uL Imm/Tot Granulo (auto) 0.3 (0.0-0.5) % Sodium 141 (136-145) mmol/L Potassium 3.6 (3.5-5.1) mmol/L Chloride 104 (98-107) mmol/L Carbon Dioxide 30.8 (21.0-32.0) mmol/L Anion Gap 9.8 BUN 14.0 (7.0-18.0) mg/dL Creatinine 1.03 (0.70-1.30) mg/dL Est GFR ( Amer) >60 (>=60 mL/min/1.73m^2) Est GFR (Non-Af Amer) >60 (>=60 mL/min/1.73m^2) BUN/Creatinine Ratio 13.6 Glucose 144 H (74-106) mg/dL Calcium 8.4 L (8.5-10.1) mg/dL Total Creatine Kinase 64 (39-308) U/L Imaging Data Duplex US: Attestation: I personally reviewed and interpreted this imaging study as follows: Radiologist's impression: ITS Impressions Tibia/Fibula X-Ray 04/23/25 20:59 IMPRESSION: NEGATIVE ACUTE FRACTURES ORIENTATION. Impression dictated by: Hudson Hinds M.D. 04/23/2025 10:33 PM Dictation Location[facility] Electronically authenticated by: [id number] Y Date: 04/23/2025 22:33 Discharge Plan Discharge Chief Complaint: Extremity Problem, Nontraumatic Clinical Impression: Acute leg pain Patient Disposition: Home, Self-Care Time of Disposition Decision: 22:36 Condition: Good Mode of Transportation: Private Vehicle Prescriptions / Home Meds: No Action atorvastatin 10 mg tablet 10 mg PO DAILY citalopram 10 mg tablet 10 mg PO DAILY lamotrigine 100 mg tablet 100 mg PO Q12H cholecalciferol (vitamin D3) 125 mcg (5,000 unit) capsule 125 mcg PO DAILY Print Language: Bots[place] Instructions: Leg Cramps (ED) Referrals: Brooklynn Yeager NP [Primary Care Provider, Family Practice] - 1 week Discharge Date/Time: 04/23/25 22:44
== END 2025-04-23 22:44 | disposition home or self-care (01) ==
PROVIDERS: Emergency Provider Student in an Organized Health Care Education/Training Program; PCP Nurse Practitioner
DX: M79.604 Pain in right leg (principal)
CPT/HCPCS: 36415; 73590; 80048; 82550; 85025; 93971; 99285

== ENCOUNTER 2025-06-06 19:02 | Emergency (ER) | payer OTHER, SELFPAY ==
--- OUTSIDE RECORDS SUMMARY | 2024-04-22 03:00 | XMS_ITS ---
Author Organization [facility] es Address [address] [place] [address] Care Team Providers Care Carbonizer Name Role Phone Raquel Chu Primary Care Provider Keerthi Lazo Unavailable [phone] REASON FOR VISIT 6 MONTH PROPHY AND EXAM Encounters Encounter Location Date Provider Diagnosis [address] [facility] [place] [address] 04/22/2024 Keerthi Lazo Plan Of Treatment Next Appt Details Provider Name:Cynthia Sheppard , 10/29/2025 10:00:00 AM, [address], [place], [address], Progress Notes * EBER ABREUOB:1970 ( 54 yo M)Acc No.[id number]:04/22/2024 Patient:?BRADY LUKE :?Keerthi ElkinsB:1970???Age:53 Y???Sex:Male Date:04/22/2024hone:[phone]:[address], [id number]:Raquel Santos Subjective: * Chief Complaints: * 6 MONTH PROPHY AND EXAM * Electronic signature of Keerthi Lazo on 06/06/2025 at 07:45 PM ESTSign off status: Pending * Provider: Adi Gomez Date: 1 Generated for Printing/Faxing/eTransmitting on:?06/06/2025 07:45 PM EST
--- OUTSIDE RECORDS SUMMARY | 2024-06-08 08:00 | XMS_ITS ---
Author Organization [facility] es Address [address] [place] [address] Care Team Providers Care Sprinkler Installer Name Role Phone Raquel Chu Primary Care Provider Rima Mederos [facility] [phone] REASON FOR VISIT 6 MONTH PROPHY Encounters Encounter Location Date Provider Diagnosis [address] [place] [address] 06/08/2024 Rima Mederos Plan Of Treatment Next Appt Details Provider Name:Cynthia Sheppard , 10/29/2025 10:00:00 AM, [address], [place], [address], Progress Notes * BRADY EBEROB:1970 ( 54 yo M)Acc No.[id number]:06/08/2024 Patient:?LUKE ABREU :?Rima CunninghamDOB:1970???Age:53 Y???Sex:Male Date:06/08/2024hone:[phone]:[address], [id number]:Raquel Santos Subjective: * Chief Complaints: * 6 MONTH PROPHY * Electronic signature of Rima Mederos on 06/06/2025 at 07:44 PM ESTSign off status: Pending * Provider: Richa Cunningham Date: 08/08/2023 Generated for Printing/Faxing/eTransmitting on:?06/06/2025 07:44 PM EST
--- OUTSIDE RECORDS SUMMARY | 2024-12-23 05:15 | XMS_ITS ---
Author Organization [facility] es Address [address] [place] [address] Care Team Providers Care Machine I Trimmer Name Role Phone Raquel Chu Primary Care Provider Rima Mederos Unavailable [phone] REASON FOR VISIT 6 MONTH PROPHY Encounters Encounter Location Date Provider Diagnosis [place] [address] [place] [address] 12/23/2024 Rima Mederos Plan Of Treatment Next Appt Details Provider Name:Cynthia Sheppard , 10/29/2025 10:00:00 AM, [address], [place], [address], Progress Notes * EBER ABREUOB:1970 ( 54 yo M)Acc No.[id number]:12/23/2024 Patient:?LUKE ABREU :?Rima CunninghamDOB:1970???Age:53 Y???Sex:Male Date:12/23/2024Phone:[phone]:[address], [id number]:Raquel Santos Subjective: * Chief Complaints: * 6 MONTH PROPHY * Electronic signature of Rima Mederos on 06/06/2025 at 07:44 PM ESTSign off status: Pending * Provider: Richa Cunningham Date: 0 12/23/2024 Generated for Printing/Faxing/eTransmitting on:?06/06/2025 07:44 PM EST
--- OUTSIDE RECORDS SUMMARY | 2025-03-16 03:45 | XMS_ITS ---
Author Organization [facility] es Address [address] [place] [address] Care Team Providers Care Winding Inspector And Tester Name Role Phone Raquel Chu Primary Care Provider [phone] Silver Cynthia Bruce [phone] REASON FOR VISIT PROPHY Encounters Encounter Location Date Provider Diagnosis [facility] [address] [place] [address] 03/16/2025 Cynthia Sheppard Acute gingivitis, plaque induced K05.00 Assessments Encounter Date Diagnosis (ICD Code) Assessment Notes Treatment Notes Treatment Clinical Notes Section Notes 03/16/2025 Acute gingivitis, plaque induced (ICD-10 - K05.00) Plan Of Treatment Next Appt Details Provider Name:Cynthia Sheppard , 10/29/2025 10:00:00 AM, [address], [place], [address], Progress Notes * EDGARDO ABREUSDOB:1970 ( 54 yo M)Acc No.[id number]:03/16/2025 Patient:?BRADYLUKE Watkins :?Cynthia SheppardDOB:1970???Age:54 Y???Sex:Male Date:03/16/2025Phone:[phone]:[address], [id number]:Raquel Santos Subjective: * Chief Complaints: * P ROPHY Objective: * Dental Examination/Plan : * Tooth / Surface Status Description Provider Date TPPROPHYLAXIS - [id number]/16/2025 Assessment: * Assessment: 1.?Acute gingivitis, plaque induced - K05.00 (Primary)??? * Electronic signature of Cynthia Sheppard on 06/06/2025 at 07:44 PM ESTSign off status: Pending * Provider: Gwendolyn Sheppard Date: 0 03/16/2025 Generated for Printing/Faxing/eTransmitting on:?06/06/2025 07:44 PM EST
[2025-06-06 19:13] VITALS: BP 131/73; PULSE 77; TEMP 36.8; O2SAT 97; BMI 31.2
--- NOTE | 2025-06-06 19:43 | ED.GENADUL1 ---
HPI HPI - General Adult General Chief complaint: Upper Respiratory Infection Stated complaint: swollen neck Time Seen by Provider: 06/06/25 19:14 Source: patient Mode of arrival: walk-in Limitations: no limitations History of Present Illness HPI narrative: cc -throat pain Patient presents with a 4-day history of pain with swallowing and sensation of pain and swelling in the back of the throat. He says that he is a daily smoker and when he uses cigarettes it actually makes him feel better. No fever or chills. No GI or symptoms. No ear pain, cough, nasal congestion, sinus headache. He previously experienced this in August of this year and was diagnosed with pharyngitis. He said that the antibiotic and steroids caused the symptoms to go away He has not seen anybody for follow-up in that incident or during this episode. Related Data Home Medications ?Medication ?Instructions ?Recorded ?Confirmed atorvastatin 10 mg tablet 10 mg PO DAILY 11/28/23 06/06/25 lamotrigine 100 mg tablet 100 mg PO Q12H 11/28/23 06/06/25 cholecalciferol (vitamin D3) 1,250 06/06/25 mcg (50,000 unit) capsule cholecalciferol (vitamin D3) 125 06/06/25 mcg (5,000 unit) tablet citalopram 20 mg tablet mg 06/06/25 Previous Rx's ?Medication ?Instructions ?Recorded clindamycin HCl 150 mg capsule 450 mg (3 x 150 mg) PO TID 7 days 06/06/25 #63 caps prednisone 20 mg tablet 40 mg (2 x 20 mg) PO DAILY 3 days 06/06/25 #6 tabs Allergies Allergy/AdvReac Type Severity Reaction Status Date / Time acetaminophen (From Vicodin) AdvReac constipatio Verified 06/06/25 19:18 n hydrocodone (From Vicodin) AdvReac constipatio Verified 06/06/25 19:18 n Opioid HPI Opioid Management Most Recent Opioid Data: Last Pain Scale 10 04/23/25, 20:47 PFSH PFSH Surgical History (Updated 11/28/23 @ 19:15 by Costa Mcknight) Hx of cholecystectomy ?Z90.49 - Acquired absence of other specified parts of digestive tract (ICD-10) Social History Little interest or pleasure in doing things: not at all Feeling down, depressed, or hopeless: not at all Exam Narrative Exam Narrative: Nurses notes and vital signs reviewed and patient is not hypoxic. afebrile General: Well-appearing and in no apparent distress. Skin: Warm, dry, no pallor noted. No rash. Head: Normocephalic, atraumatic. Neck: Supple, non-tender. No cervical lymphadenopathy noted. No submental or submandibular swelling or evidence of Lamberto's angina. Eye: Pupils are equal, round and EOMI. No scleral icterus. Ears, Nose, Mouth, and Throat: Mild posterior oropharynx erythema with mild amount of tonsillar swelling but no asymmetry - uvula is mid-line. No oral or intraoral lesions. Oral mucosa is moist Cardiovascular: Regular Rate and Rhythm without murmur, gallop or rub. Respiratory: No accessory muscle use or respiratory distress. Lungs are clear to auscultation, no wheezing, rales or rhonchi Neurological: A&O x4. No cranial nerve dysfunction observed. No truncal ataxia. Moves all extremities. Sensation intact. Psychiatric: Cooperative and interactive. Normal mood and affect. Constitutional Vital Signs, click to edit/add: Last Vital Signs Temp 98.3 F 06/06/25 19:13 Pulse 77 06/06/25 19:13 Resp 18 06/06/25 19:13 BP 131/73 06/06/25 19:13 Pulse Ox 97 06/06/25 19:13 O2 Del Method Room Air 06/06/25 19:13 Course Vital Signs Vital signs: Vital Signs Temperature 98.3 F 06/06/25 19:13 Pulse Rate 77 06/06/25 19:13 Respiratory Rate 18 06/06/25 19:13 Blood Pressure 131/73 06/06/25 19:13 Pulse Oximetry 97 06/06/25 19:13 Oxygen Delivery Method Room Air 06/06/25 19:13 Temperature 98.3 F 06/06/25 19:13 Pulse Rate 77 06/06/25 19:13 Respiratory Rate 18 06/06/25 19:13 Blood Pressure 131/73 06/06/25 19:13 Pulse Oximetry 97 06/06/25 19:13 Oxygen Delivery Method Room Air 06/06/25 19:13 Medical Decision Making MDM Narrative Medical decision making narrative: Strep screen is negative. He was given an oral dose of clindamycin 450 mg in the ED as well as 40 mg prednisone orally in the ED before discharge. We discussed his negative strep result. He was prescribed BMX solution -1 to one-to-one mix of Maalox, viscous lidocaine and liquid Benadryl -as well as additional clindamycin and steroid to be taken. I recommended that he follow-up with his primary care provider and that if the symptoms did not improve he could be referred to ENT or undergo additional testing Medical Records Medical records reviewed: Yes I reviewed the patient's medical records Lab Data Lab results reviewed: Yes I reviewed the patient's lab results Labs: Lab Results 06/06/25 Range/Units 19:18 Streptococcus Screen Negative Discharge Plan Discharge Chief Complaint: Upper Respiratory Infection Clinical Impression: Pharyngitis Patient Disposition: Home, Self-Care Time of Disposition Decision: 19:46 Prescriptions / Home Meds: New clindamycin HCl 150 mg capsule 450 mg PO TID 7 Days Qty: 63 0RF prednisone 20 mg tablet 40 mg PO DAILY 3 Days Qty: 6 0RF No Action atorvastatin 10 mg tablet 10 mg PO DAILY lamotrigine 100 mg tablet 100 mg PO Q12H citalopram 20 mg tablet cholecalciferol (vitamin D3) 1,250 mcg (50,000 unit) capsule cholecalciferol (vitamin D3) 125 mcg (5,000 unit) tablet Print Language: Chadian Instructions: Pharyngitis (ED) Referrals: Brooklynn Yeager NP [Primary Care Provider, Family Practice] - 1 week
--- OUTSIDE RECORDS SUMMARY | 2025-06-06 19:44 | XMS_ITS | Clinical Summary ---
Author Organization [facility] Healthcare Address [address] [place] [address] Care Team Providers Care Space Control Supervisor Name Role Phone Brooklynn Yeager NP Unavailable [phone] Eusebio Schneider MD Primary Care Provider Brooklynn Yeager MEDICAL RESEARCH TECH Unavailable [phone] Brooklynn Yeager NP Unavailable [phone] Allergies Active AllergyReactionsCriticalityNoted DateCommentsHydrocodoneGI intolerance 07/17/2023 constipation Medications MedicationSigDispense QuantityRefillsLast FilledStart DateEnd DateStatus atorvastatin (Lipitor) 10 MG tablet Indications:Mixed hyperlipidemiaTake 1 tablet (10 mg) by mouth at bedtime 90 tablet 5Active citalopram (CeleXA) 20 MG tablet Indications:Bipolar affective disorder, remission status unspecified (HCC)Take 1 tablet (20 mg) by mouth Daily 90 tablet 5Active lamoTRIgine (LaMICtal) 100 MG tablet Indications:Bipolar affective disorder, remission status unspecified (HCC)Take 1 tablet (100 mg) by mouth Daily 90 tablet 5Active Active Problems ProblemNoted DateDiagnosed DateNicotine rcdrraxnvv29/24/2025 Assessment & Plan (10/05/2024 8:34 AM EDT): The patient has been advised of the risks of continued smoking: stroke, TN, all forms of cancer, lung disease, and . Options for quitting smoking include: cold turkey, hypnosis, acupuncture, nicotine replacement meds(gum, lozenges, and patches), Buproprion, and Varenicline. At this time pt is encouraged to evaluate their goals for wanting to quit smoking, and reach out toprovider when ready to start this process Vitamin D comkxjsrlh55/04/2025 Overview (10/05/2024): Due next month for lab recheck Assessment & Plan (10/05/2024 8:33 AM EDT): Labs early in 2024, low vit d, started on supplementation, discontinued d/t constipation, changed to a centrum vitamin Check labs Jvsalfwsjink39/31/2025 Assessment & Plan (10/05/2024 6:22 AM EDT): Also had low vit d Recheck labs Zmzvitjkvtksk50/31/1569SZZKK20/19/2024Lump of skin03/30/2024 Assessment & Plan (03/30/2024 8:40 AM EDT): He did ask dermatology about removal of this, they recommended plastics At this point he would like to wait until after first of the year At that point will refer to Plastics No s/s ulceration of any topical abnormalities Gross fqrijzlhl25/19/1679Qdunsaqp72/14/2024bdominal pain09/26/2023ectal pain 09/26/2023Genital warts09/26/2023Male erectile disorder (CODE)09/26/2023Lipoma 09/26/2023History of HPV qxahqwqjo32/14/2024Obesity (BMI 30-39.9)09/26/2023 Assessment & Plan (10/05/2024 6:18 AM EDT): Discussed with patient their BMI (actual, verses recommended). We have also discussed lifestyle modifications: attempts to perform physical activity as chronic conditions allow, also to monitor dietary intake: increasing protein/fruits/veggies and lowering carb intake (unless contraindicated). Limit sodas, juices, and sugary drinks. Assessment & Plan (07/30/2024 6:21 AM EST): Discussed with patient their BMI (actual, verses recommended). We have also discussed lifestyle modifications: attempts to perform physical activity as chronic conditions allow, also to monitor dietary intake: increasing protein/fruits/veggies and lowering carb intake (unless contraindicated). Limit sodas, juices, and sugary drinks. Malignant neoplasm of overlapping sites of iftyeet6909/04/2023 Overview (03/30/2024): ==== 11/13/2023 ==== #### status post cystoscopy [...] Completion hematuria evaluation cytology CT urogram cystoscopy. Last Assessment & Plan: Postop day of have clots and clot retention. This has resolved. He was started on finasteride and Flomax at the time of the ER visit. He was not on these before. He can stop those. Assessment & Plan (10/05/2024 6:19 AM EDT): Continue with Urology for mgmt Assessment & Plan (07/30/2024 6:21 AM EST): Continue with Urology for mgmt Assessment & Plan (03/30/2024 8:37 AM EDT): Continue with Urology for mgmt of this condition Constipation, zsajrbg7308/21/2023DD (degenerative disc disease), xmuyil9708/21/2023 Mixed ffglkfjjkiqdbl21/15/2024 Assessment & Plan (07/30/2024 6:22 AM EST): On statin therapy Check labs yearly and prn dose changes Assessment & Plan (09/26/2023 9:22 AM EDT): Doing well on current dose of statin, tolerated well no dose changes Rising PSA level07/24/2023Screening for prostate wuwntd9807/22/2023ipolar ejelytbo90/08/2024 Assessment & Plan (10/05/2024 6:18 AM EDT): Current meds: lamictal as well as celexa Assessment & Plan (07/30/2024 6:22 AM EST): Current meds: lamictal as well as celexa Assessment & Plan (03/30/2024 8:38 AM EDT): No changes in meds or doses Feels good Will fu in 4 months, sooner if needs something Assessment & Plan (09/26/2023 9:23 AM EDT): No changes in meds or doses Feels good 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, 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 Will fu in 6 months, sooner if needs something Skin tags, multiple /08/2024 Assessment & Plan (07/22/2023 8:55 AM EST): Removed X3 Wfnttyuctjtgwu68/13/2023 Assessment & Plan (07/22/2023 8:55 AM EST): Feeling better No acute symptoms at this time Assessment & Plan (06/26/2023 8:48 AM EST): Will treat with atb, if worsening in pain go to Er Resolved Problems ProblemNoted DateDiagnosed DateResolved DateContusion of scalp03/30/2024 07/30/2024 Assessment & Plan (03/30/2024 8:40 AM EDT): No acute s/s of CHI, no open wound noted Microscopic wywlreoqz69 Assessment & Plan (09/26/2023 9:21 AM EDT): Continue work up with urology Scope next week HLD (hyperlipidemia)/Tobacco user/ Assessment & Plan (10/05/2024 6:18 AM EDT): The patient has been advised of the risks of continued smoking: stroke, TN, all forms of cancer, lung disease, and . Options for quitting smoking include: cold turkey, hypnosis, acupuncture, nicotine replacement meds(gum, lozenges, and patches), Buproprion, and Varenicline. At this time pt is encouraged to evaluate their goals for wanting to quit smoking, and reach out toprovider when ready to start this process Assessment & Plan (07/30/2024 6:22 AM EST): The patient has been advised of the risks of continued smoking: stroke, TN, all forms of cancer, lung disease, and . Options for quitting smoking include: cold turkey, hypnosis, acupuncture, nicotine replacement meds(gum, lozenges, and patches), Buproprion, and Varenicline. At this time pt is encouraged to evaluate their goals for wanting to quit smoking, and reach out toprovider when ready to start this process Immunizations ImmunizationAdministration DatesNext Elif, Zlglqditgwb92/28/2023,05/31/2022 Family History RelationNameStatusCommentsBrotherAlive2 brothersFatherDeceased (Age 81)Mother AliveSisterAlive3 sisters Social History Tobacco UseTypesPacks/DayYears UsedDateSmoking Tobacco: Every DayCigarettes Tobacco Cessation:Ready to Q uit: No; Counseling Given: Yes Alcohol UseStandard Drinks/WeekCommentsNot Currently0 (1 standard drink = 0.6 oz pure alcohol)caffeine 1-2 cups per [id number] Health LiteracyAnswerDate Recorded How often do you need to have someone help you when you read instructions, pamphlets, or other written material from your doctor or pharmacy?Never 03/23/2024Social Connection and Isolation PanelAnswerDate RecordedFrequency of Communication with Friends and FamilyNot on file03/23/2024Frequency of Social Gatherings with Friends and FamilyNot on file03/23/2024ttends Worship ServicesNot on file03/23/2024o you belong to any clubs or organizations such as episcopal groups, unions, fraternal or athletic groups, or school groups?No 03/23/2024How often do you attend meetings of the clubs or organizations you belong to?Never03/23/2024re you , , , , never , or living with a partner?Living with ecuxpcf1803/23/2024UDIT-CAnswerDate RecordedQ1: How often do you have a drink containing alcohol?Never03/23/2024Q2: How many drinks containing alcohol do you have on a typical day when you are drinking?Patient does not drink03/23/2024Q3: How often do you have six or more drinks on one occasion?Never03/23/2024Overall Financial Resource Strain (CARDIA) AnswerDate RecordedHow hard is it for you to pay for the very basics like food, housing, medical care, and heating?Not hard at all03/23/2024[facility] [place] [facility] - Occupational Stress QuestionnaireAnswerDate RecordedDo you feel stress - tense, restless, nervous, or anxious, or unable to sleep at night because yourmind is troubled all the time - these days?Not at all03/23/2024 Exercise Vital SignAnswerDate RecordedDays of Exercise per WeekNot on file 03/23/2024On average, how many minutes do you engage in exercise at this level? 150+ min03/23/2024Hunger Vital SignAnswerDate RecordedWithin the past 12 months, you worried that your food would run out before you got the money to buymore. Sometimes true03/23/2024Within the past 12 months, the food you bought just didn't last and you didn't have money to get more.Sometimes true03/23/2024 PRAPARE - TransportationAnswerDate RecordedIn the past 12 months, has lack of transportation kept you from medical appointments or from getting medications?No 03/23/2024In the past 12 months, has lack of transportation kept you from meetings, work, or from getting things needed for daily living?No03/23/2024 Housing Stability Vital SignAnswerDate RecordedIn the last 12 months, was there a time when you were not able to pay the mortgage or rent on time?Yes03/23/2024 Number of Times Moved in the Last YearNot on file03/23/2024t any time in the past 12 months, were you homeless or living in a intermediate (including now)?No 03/23/2024Sex and Gender InformationValueDate RecordedSex Assigned at BirthNot on fileLegal TipStmm7209/26/2022 11:02 PM EDTGender IdentityNot on fileSexual OrientationNot on file Last Filed Vital Signs Vital SignReadingTime TakenCommentsBlood Pvjiocoj212/72010/05/2024 8:21 AM EDT Dqghg934110/05/2024 8:21 AM PQZTfebeimgotp38.9 ??C (98.5 ??F)10/05/2024 8:21 AM EDTRespiratory Jxow366510/05/2024 8:21 AM EDTOxygen Vewivywrhx68%10/05/2024 8:21 AM EDTInhaled Oxygen Concentration--Xhrsuq624 kg (257 lb)10/05/2024 8:21 AM EDT Fioabe903.5 cm (6' 3 )10/05/2024 8:21 AM EDTBody Mass Index32.12010/05/2024 8:21 AM EDT Plan of Treatment Health MaintenanceDue DateLast DoneCommentsCT Udlxehcgppvw73/14/1970FIT-DNA 1969FIT1969FOBT1969 0076Pillazvnpzoig90/14/1970Pneumococcal Vaccine: Pediatrics (0 to 5 Years) and At-Risk Patients (6 to 64 Years) (1 of 2 - PCV)1988COVID-19 Vaccine (3 - 2024- season)504/, 8052Tfyvbyuykob55/22/203303/3Colorectal Cancer Hxeomocyp73/22/2033 Influenza VaccineDiscontinued Procedures Procedure NamePriorityDate/TimeAssociated DiagnosisCommentsCOLONOSCOPYRoutine 10/03/2022 12:00 PM EDT Personal history of colonic polyps Family history of malignant neoplasm of digestive organs Change in bowel habit from Last 3 Months or Most Recently Relevant to Health Maintenance Results * Colonoscopy (10/03/2022 12:00 PM EDT)Anatomical RegionLateralityModality EndoscopySpecimen (Source)Anatomical Location / LateralityCollection Method / VolumeCollection TimeReceived Time10/03/2022 12:00 PM EDT Narrative 10/03/2022 12:00 PM EDT PERFORMED AT [facility] LOCATION:[id number] Procedure Note CONVERSION, GENERIC - 11/29/2022 PERFORMED AT [facility] LOCATION:[id number] Authorizing ProviderResult TypeResult StatusAlbert Aguila Mike MDENDOSCOPY PROCEDURE ORDERABLESFinal Result from Last 3 Months or Most Recently Relevant to Health Maintenance Insurance Care Teams Team MemberRelationshipSpecialtyStart DateEnd Date Eusebio Schneider MD PCP - [facility]09/26/23 Brooklynn Yeager NP [address] [place] [address] [facility]01/13/24 [facility]23
--- OUTSIDE RECORDS SUMMARY | 2025-06-06 19:44 | XMS_ITS | CCD ---
Author Organization [facility] Care Team Providers Care Chain Splitter Name Role Phone KINJAL CHEW Unavailable Unavailable KINJAL CHEW Unavailable Unavailable Aichholz, Brooklynn J Primary Care Provider MD Hernandez Lares Jr Emergency Provider AICHHOLZ, CONCRETE BUCKET LOADER BROOKLYNN Attending Unavailable AICHHOLZ, CONCRETE BUCKET LOADER BROOKLYNN Consulting Unavailable AICHHOLZ, CONCRETE BUCKET LOADER BROOKLYNN Primary Care Unavailable AICHHOLZ, CONCRETE BUCKET LOADER BROOKLYNN Admitting Unavailable AICHHOLZ, CONCRETE BUCKET LOADER BROOKLYNN Attending Unavailable AICHHOLZ, CONCRETE BUCKET LOADER BROOKLYNN Consulting Unavailable AICHHOLZ, CONCRETE BUCKET LOADER BROOKLYNN Primary Care Unavailable AICHHOLZ, CONCRETE BUCKET LOADER BROOKLYNN Admitting Unavailable AICHHOLZ, CONCRETE BUCKET LOADER BROOKLYNN Primary Care Unavailable MISC, DR QUIGLEY Attending Unavailable MISC, DR QUIGLEY Consulting Unavailable MISC, DR QUIGLEY Admitting Unavailable Aichholz, Brooklynn J Primary Care Provider [phone] MD Hernandez Lares Jr Emergency Provider MD Kevni Sheehan Attending Provider [phone] Aichholz LACE MACHINE OPERATOR, Brooklynn Unavailable Eusebio Schneider MD Primary [...] Unavailable Hernandez Lares Jr Admitting Unavailable Aichholz LACE MACHINE OPERATOR, Brooklynn Unavailable Eusebio Schneider MD Primary Care Provider [phone] Aichholz LACE MACHINE OPERATOR, Brooklynn Unavailable Aichholz LACE MACHINE OPERATOR, Brooklynn Unavailable Aichholz BULB ASSEMBLER-CONCRETE BUCKET LOADER, Brooklynn J Primary Care Provider LIDA SUH Attending Unavailable AICHHOLZ, BROOKLYNN J Referring Unavailable AICHHOLZ, BROOKLYNN J Primary Care Unavailable SUHLIDA MARIA Attending Unavailable AICHHOLZ, BROOKLYNN J Referring Unavailable AICHHOLZ, BROOKLYNN J Primary Care Unavailable LIDA SUH Attending Unavailable AICHHOLZ, BROOKLYNN J Referring Unavailable AICHHOLZ, BROOKLYNN J Primary Care Unavailable LIDA SUH Attending Unavailable AICHHOLZ, BROOKLYNN J Primary Care Unavailable Aichholz BULB ASSEMBLER-CONCRETE BUCKET LOADER, Brooklynn J Primary Care Provider Aichholz BULB ASSEMBLER-CONCRETE BUCKET LOADER, Brooklynn J Primary Care Provider AICHHOLZ, BROOKLYNN Attending Unavailable AICHHOLZ, BROOKLYNN Attending Unavailable AICHHOLZ, BROOKLYNN Attending Unavailable Aichholz BULB ASSEMBLER-CONCRETE BUCKET LOADER, Brooklynn J Primary Care Provider LIDA SUH. Referring Unavailable [...] SUH Admitting Unavailable LIDA SUH Attending Unavailable LIDA SUH Referring Unavailable AICHHOLZ, BROOKLYNN J Primary Care Unavailable Aichholz LACE MACHINE OPERATOR-C, Brooklynn Joshi Primary Care Provider Rad Lopez DO Attending Provider Aichholz LACE MACHINE OPERATOR-C, Brooklynn Joshi Attending Provider Shobha SEYMOUR - Brooklynn LEE Primary Care Provide r BROOKLYNN YEAGER Referring Unavailable BROOKLYNN YEAGER Primary Care Unavailable Allergies Allergy ClassificationReported Allergen(s)Allergy TypeDate of OnsetReaction(s) Facility (5 sources)Acetaminophen; Translations: [acetaminophen]Drug Epdhtmf19-30-8637 [facility]etBl[facility] ([facility] sources)HYDROcodone; Translations: [hydrocodone]Drug Usccnwd05-53-4949VX intolerance, GI DisturbanceBlanchard Valley Health System (1 source)Acetaminophen / HYDROcodoneDrug AllergyThe [facility] (20 sources)Acetaminophen / HYDROcodone; Translations: [HYDROCODONE-ACETAMINOPHEN]Drug Gfnsoas33-85-0950Aho[place]gcc[place] Repository Medications Current Medications MedicationDrug Class(es)DatesSig (Normalized)Sig (Original)acetaminophen 325 mg / oxyCODONE hydrochloride 5 mg oral tablet (6 sources)Opioid AgonistStart: 98-55-8190qqcTWBCZR-acetaminophen (PERCOCET) 5- 325 mg per tablet Indications: Malignant neoplasm of overlapping sites of bladder (CMS-HCC) One tablet prior to urologic procedure. Someone must drive you. 1 tablet 12/14/2024 ActiveStart: 95-59-1551bgzSUGROH-acetaminophen (PERCOCET) 5-325 mg per tablet Indications: Malignant neoplasm of overlapping sites of bladder (CMS-HCC) Take prior to your urologic procedure-- someone must drive you 1 tablet 05/22/2024 ActiveStart: 04-04-2020 End: 47-43-9144zdep 1 tablet by mouth every six hours as needed for pain Oxycodone-Acetaminophen 5-325 mg Tablet Discontinued 1 TAB PO Q6H as needed for Pain 2019October 22, 2022 2:[id number] 200 actuat albuterol 0.09 mg/actuat metered dose inhaler (9 sources)beta2-Adrenergic AgonistStart: 07-02-2024 End: 62-45-5234rouo 2 puff(s) by inhalation every six hours for wheezing albuterol HFA 90 mcg/act inhaler Indications: COVID Inhale 2 puffs every 6 (six) hours if needed for shortness of breath or wheezing 18 g 07/02/2024 Active atorvastatin 10 mg oral tablet (20 sources)HMG-CoA Reductase InhibitorStart: 49-53-4574srju 1 tablet by mouth once dailyAtorvastatin 10 mg tablet Active 10 MG PO Daily April 12, 2025 1:54pm Complies with drug therapyStart: 07-29-2023 End: 13-77-9105pylr 1 tablet by mouth at bedtimeatorvastatin (Lipitor) 10 MG tablet Indications: Mixed hyperlipidemia Take 1 tablet (10 mg) by mouth at bedtime 90 tablet 1 10/05/2024 Activebrompheniramine maleate 0.4 mg/ml / dextromethorphan hydrobromide 2 mg/ml / pseudoephedrine hydrochloride 6 mg/ml oral solution (1 source)alpha-Adrenergic Agonist, Uncompetitive Y-cmpqrq-L-aspartate Receptor Antagonist, Sigma-1 AgonistStart: 07-02-2024 End: 64-39-6213ffza 10 mL by mouth four times daily as needed for cough pxynfzrohkgbkuh-gzfdmmgpbmjqtpe-ML 30-2-10 MG/5ML syrup Indications: COVID Take 10 mL by mouth 4 (four) times a day as needed for cough or congestion for up to 5 days 200 mL 07/02/2024 07/07/2024 Activecholecalciferol 0.125 mg oral tablet (9 sources)Vitamin DStart: 37-01-9691ixsj 1 tablet by mouth once daily Cholecalciferol (Vitamin D3) 125 mcg (5,000 unit) tablet Active 125 MCG PO Daily March 12:00am Complies with drug therapyStart: 03-04-2025 End: 04-48-9858cscy 1 capsule by mouth once dailycholecalciferol (Vitamin D-3) 125 MCG (5000 UT) capsule Indications: Vitamin D deficiency Take 1 capsule (125 mcg) by mouth Daily 30 capsule 2 03/04/2025 04/03/2025 ActiveStart: 12-14-2024 take 1 capsule by mouth in the morningcholecalciferol, vitamin D3, (VITAMIN D3) 5,000 units capsule Take 1 capsule (5,000 Units total) bymouth in the morning. 12/14/2024 SuspendedStart: 10-12-2024 End: 09-37-4665owkt 1 capsule by mouth once dailycholecalciferol (Vitamin D-3) 125 MCG (5000 UT) capsule Indications: Vitamin D deficiency Take 1 capsule (125 mcg) by mouth Daily 30 capsule 2 10/12/2024 11/11/2024 ActiveStart: 08-18-2024 End: 01-70-0147gicn 1 capsule by mouth in the morningcholecalciferol, vitamin D3, (VITAMIN D3) 5,000 units capsule Take 1 capsule (5,000 Units total) bymouth in the morning. 08/18/2024 09/17/2024 ActiveStart: 08-18-2024 End: 25-55-7576bkae 1 capsule by mouth once dailycholecalciferol (Vitamin D-3) 125 MCG (5000 UT) capsule Indications: Vitamin D deficiency Take 1 capsule (125 mcg) by mouth Daily 30 capsule 1 08/18/2024 09/17/2024 Activecitalopram 20 mg oral tablet (20 sources)Serotonin Reuptake InhibitorStart: 46-57-2165fmyj 1 tablet by mouth once dailyCitalopram 20 mg tablet Active 20 MG PO Daily April 24, 2025 12:00am Complies with drug therapyStart: 08-21-2023 End: 03-44-0056csjq 1 tablet by mouth once dailycitalopram (CeleXA) 20 MG tablet Indications: Bipolar affective disorder, remission status unspecified (HCC) Take 1 tablet (20 mg) by mouth Daily 90 tablet 1 10/05/2024 ActiveStart: 10-22-2022 End: 77-25-4593kqnq 2 tablets by mouth once daily in the morningCitalopram (Celexa) 10 mg tablet Discontinued 20 MG PO Every morning 90 April 12, 2025 1:54pmApril 24, 2025 5:20amStart: 70-69-3116xkkv 1 tablet by mouth once daily in the morningCitalopram (Celexa) 10 mg tablet Active 10 MG PO Every morning October 22, 2022 12:00amfinasteride 5 mg oral tablet (18 sources)5-alpha Reductase InhibitorStart: 12-19-2023 End: 47-32-3368hppp 1 tablet by mouth once dailyfinasteride (Proscar) 5 MG tablet Take 5 mg by mouth Daily 12/19/2023 Activehyoscyamine sulfate 0.12 mg / methenamine 118 mg / methylene blue 10 mg / phenyl salicylate 36 mg /sodium phosphate, monobasic 40.8 mg oral capsule (2 sources)Oxidation-Reduction AgentStart: 11-13-2023 End: 39-89-9336dhejzi-m.blue-s.vzsw-dqsbq-agl (URO-MP) 118-10-40.8-36 mg capsule Take 1 capsule by mouth in the morning and 1 capsule at noon and 1 capsule in the evening and 1 capsule before bedtime. Do all this for 7 days. 28 capsule 11/13/2023 11/20/2023 Activeketorolac tromethamine 10 mg oral tablet (8 sources)Nonsteroidal Anti-inflammatory Drug, Cyclooxygenase InhibitorStart: 11-29-2023 End: 55-56-5035uxjz 1 tablet by mouth every six hours as neededketorolac (Toradol) 10 MG tablet Take 10 mg by mouth every 6 (six) hours if needed 11/29/2023 03/30/2024 Discontinued (Therapy completed)lamoTRIgine 100 mg oral tablet (20 sources)Mood Stabilizer, Anti-epileptic AgentStart: 05-21-2023 End: 62-25-2746kwgw 1 tablet by mouth once dailyLamotrigine 100 mg tablet Active 100 MG PO Daily April 12, 2025 1:55pm Complies with drug therapyStart: 10-22-2022 End: 16-67-2874eocn 1 tablet by mouth twice dailyLamotrigine (Lamictal) 25 mg tablet Discontinued 25 MG PO Twice daily October 22, 2022 12:00am December 01, 2023 12:27amphenazopyridine hydrochloride 100 mg oral tablet (1 source)Start: 10-31-2023 End: 05-56-5701voxe 1 tablet by mouth three times dailyphenazopyridine (PYRIDIUM) 100 mg tablet Take 1 tablet (100 mg total) by mouth 3 (three) times a day for 9 doses. 9 tablet 10/31/2023 11/03/2023 Activetamsulosin hydrochloride 0.4 mg oral capsule (18 sources)alpha-Adrenergic BlockerStart: 12-19-2023 End: 67-47-7156vcqf 1 capsule by mouth once dailytamsulosin (Flomax) 0.4 MG 24 hr capsule Take 0.4 mg by mouth Daily 12/19/2023 Activezolpidem tartrate 5 mg oral tablet (2 sources)gamma-Aminobutyric Acid-ergic AgonistStart: 11-35-5821sbuefrrr (Ambien) 5 MG tablet Take 1 tablet by mouth as needed at bedtime 0 07/24/2022 Active Completed/Discontinued Medications MedicationDrug Class(es)DatesSig (Normalized)Sig (Original)polyethylene glycol 3350 52044 mg powder for oral solution (4 sources)Osmotic LaxativeStart: 09-05-2022 End: 20-00-8507Dxgmiyhqbkum Glycol 3350 (Miralax) 17 gram/dose powder Discontinued 17 GM PO Daily 510 September 05, 2022 1:00am October 22, 2022 2:09pm Problems Active Problems Problem ClassificationProblemDateDocumented DateEpisodic/ChronicAbdominal pain (20 sources)Abdominal pain; Translations: [Unspecified abdominal pain]Onset: 532591-75-4077WztoipxdCtbd and rectal conditions (20 sources)Rectal pain; Translations: [Other specified diseases of anus and rectum]Onset: 309933-42-5639RcxkpqkmFiopyqb tract disease (12 sources)Calculus of gallbladder with acute cholecystitis; Translations: [Calculus of gallbladder with acutecholecystitis without obstruction]04-04-2020 EpisodicComment on above:Problem List clean-up per request of Phys. EHR Cmte Cancer of bladder (20 sources)Malignant neoplasm of overlapping sites of bladder; Translations: [Malignant neoplasm, overlapping lesion of bladder]Onset: 014860-76-3293 ChronicDiabetes mellitus without complication (14 sources)Hyperglycemia; Translations: [Hyperglycemia, unspecified]Onset: 233617-05-6783DwdjfxeaXsfgpmrpc of lipid metabolism (20 sources)Hyperlipidemia; Translations: [Hyperlipidemia, unspecified]Onset: 07-22-2023 Resolved: 919875-24-8594JlzziokHjxusqxsaehnhy and diverticulitis (20 sources)Diverticulitis; Translations: [Diverticulitis of intestine, part unspecified, without perforation or abscess without bleeding]Onset: 06-26-2023 87-36-3376QwaokezIrnrpcmepeuex symptoms and ill-defined conditions (2 sources)Unspecified urinary incontinence; Translations: [Urinary incontinence]Onset: 913501-75-7113CqygtosBpiqqlagqddaw symptoms and ill- defined conditions (20 sources)Microscopic hematuria; Translations: [Other microscopic hematuria] Onset: 07-29-2023 Resolved: 809270-76-2449RezivhfbFphhtmstnj obstruction without hernia (4 sources)Intussusception of intestine; Translations: [Intussusception] 62-91-0933LcpstpqlRhtlfga on above:Problem List clean-up per request of Phys. EHR CmteMalaise and fatigue (4 sources)Fatigue; Translations: [Other fatigue]97-38-8758PhnpxojmTgkwilo on above:Problem List clean-up per request of Phys. EHR CmteMiscellaneous mental health disorders (20 sources)Impotence; Translations: [Male erectile disorder]Onset: 09-26-2023 31-14-6958OvhriyfNyfb disorders (20 sources)Bipolar disorder; Translations: [Bipolar disorder, unspecified] Onset: 661688-14-5691AkwgpwyImhkcdxjc; nephrosis; renal sclerosis (1 source)Recurrent gail hematuria; Translations: [Recurrent and persistent hematuria with unspecified morphologic changes]23-68-2127SyiehmfVgtfazjouij deficiencies (13 sources)Vitamin D deficiency; Translations: [Vitamin D deficiency, unspecified]Onset: 451129-62-4390JabaaruWypxa and unspecified benign neoplasm (20 sources)Lipoma (clinical); Translations: [Benign lipomatous neoplasm, unspecified]Onset: 527569-52-1628YdpbmvvlSkxcu gastrointestinal disorders (4 sources)Constipation; Translations: [Constipation, unspecified]09-05-2022 EpisodicComment on above:Problem List clean-up per request of Phys. EHR Cmte Other gastrointestinal disorders (20 sources)Chronic constipation; Translations: [Other constipation]Onset: 632721-26-7050TweuudszRelop infections; including parasitic (20 sources)History of human papilloma virus infection; Translations: [Personal history of other infectious andparasitic diseases]Onset: 931389-49-4290 EpisodicOther lower respiratory disease (4 sources)Snoring; Translations: [Snoring]25-32-9991OgzkcruyIopwfih on above: Problem List clean-up per request of Phys. EHR CmteOther male genital disorders (1 source)Male erectile dysfunction, unspecified; Translations: [Erectile disorder]23-49-5840KthmqxiFbymv nutritional; endocrine; and metabolic disorders (20 sources)Body mass index 30+ - obesity; Translations: [Obesity, unspecified] Onset: 441323-96-3902LqiwupuLnuoh nutritional; endocrine; and metabolic disorders (11 sources)Hypocalcemia; Translations: [Hypocalcemia]Onset: 08-14-2024 58-65-0280JpnjxiyXmfel screening for suspected conditions (not mental disorders or infectious disease) (20 sources)Encounter for screening, unspecified; Translations: [Patient encounter status]Onset: 24-45-8208CjxbjahgGpsol skin disorders (20 sources)Multiple skin tags; Translations: [Other hypertrophic disorders of the skin]Onset: 972540-48-8917DxhjorerQvqxs skin disorders (20 sources)Mass of skin; Translations: [Localized swelling, mass and lump, unspecified]Onset: 894436-68-3562ZbttfofcTystrfre codes; unclassified (3 sources)Daytime somnolence; Translations: [Other hypersomnia]09-05-2022 ChronicResidual codes; unclassified (1 source)Other hypersomnia; Translations: [Excessive daytime sleepiness] 09-30-8457RmmnmzcDlmacbo on above:Problem List clean-up per request of Phys. EHR CmteResidual codes; unclassified (20 sources)Insomnia; Translations: [Insomnia, unspecified]Onset: 09-26-2023 88-27-7038QpastsdyZwlsrend codes; unclassified (1 source)History of transurethral resection of bladder tumor; Translations: [Other specified postprocedural states]95-77-7093ElvdfetfWbuyadtw codes; unclassified (2 sources)Tobacco use and exposure - finding; Translations: [Tobacco use] 10-38-8288XaxnkpapMmrmlndsiin; intervertebral disc disorders; other back problems (20 sources)Degeneration of lumbar intervertebral disc; Translations: [Other intervertebral disc degeneration, lumbar region]Onset: 116920-44-5905 ChronicSubstance-related disorders (6 sources)Nicotine dependence; Translations: [Nicotine dependence, unspecified, uncomplicated]Onset: 830219-99-2412ZtlhdenLvvjuztdqlhc (3 sources)CONTACT W/AND (SUSP) EXPOS COVID-19; Translations: [CONTACT W/AND (SUSP) EXPOS COVID-19]Onset: 79-04-7185Vgtccgiohcil (1 source)52 yrs M (1970) : 53-30-4025Prjfuvzkxllk (1 source)Elevated PSAOnset: 23-28-5931Vzhlegbhwthi (3 sources)Autogenerated ProblemOnset: 989382-54-0492Bngjgyzwgkgu (1 source)Malignant neoplasm of overlapping sites of bladder (CMS-HCC) [C67.8] Onset: 52-19-1106Nhrdu infection (20 sources)Genital warts; Translations: [Anogenital (venereal) warts]Onset: 569118-21-4203Kvkptogt Past or Other Problems Problem ClassificationProblemDateDocumented DateEpisodic/ChronicMood disorders (13 sources)Mood disordersOnset: 582811-19-8302Vnygz nutritional; endocrine; and metabolic disorders (4 sources)Polydipsia; Translations: [POLYDIPSIA]Onset: 55-20-3397Pesozgop Residual codes; unclassified (20 sources)Tobacco user; Translations: [Tobacco use]Onset: 07-22-2023 Resolved: 024399-31-9250JusirqrmKwyjlooewhl injury; contusion (20 sources)Contusion of scalp; Translations: [Contusion of scalp, initial encounter]Onset: 03-30-2024 Resolved: 779955-85-7627VdcjxihnKzstmnonjwjq (1 source)CONTACT W/AND (SUSP) EXPOS COVID-19; Translations: [CONTACT W/AND (SUSP) EXPOS COVID-19]Onset: 11-03-2021 Results Test NameValueInterpretationReference RangeFacilityCBC with Auto Differentialon 89-24-4594Bhznrqkwf (Bld) [#/Vol]0.05 10*3/uLBon [facility] Basophils/100 WBC (Bld)1 %0 - 2 %[facility] HealthEosinophils (Bld) [#/Vol]0.17 10*3/uLBon Secours Mercy HealthEosinophils/100 WBC (Bld)3 %1 - 4 % [facility] HealthErythrocyte distribution width (RBC) [Ratio]12.1 %11.8 - 14.4 %[facility] HealthHematocrit (Bld) [Volume fraction]48.5 %40.7 - 50.3 %[facility] HealthHemoglobin (Bld) [Mass/Vol]16.0 g/dL13.0 - 17.0 g/dLBon Secours Mercy HealthImmature granulocytes (Bld) [#/Vol][facility] HealthImmature granulocytes/100 WBC (Bld)0 %0[facility] Lymphocytes/100 WBC (Bld)27 %24 - 43 %[facility] HealthLymphocytes/100 WBC (Bld)1.72 %[facility] HospitalH (RBC) [Entitic mass]30.5 pg25.2 - 33.5 pgBon Secours Highland District Hospitaly [facility] HospitalHC (RBC) [Mass/Vol]33.0 g/dL28.4 - 34.8 g/dLBon Secours Mercy Wilson Memorial HospitalV (RBC) [Entitic vol]92.6 fL82.6 - 102.9 fLBon Secours Mercy HealthMonocytes/100 WBC (Bld)8 %3 - 12 %[facility] Monocytes/100 WBC (Bld)0.54 %[facility] HealthNeutrophils/100 WBC (Bld)61 %36 - 65 %[facility] HealthNucleated RBC/100 WBC (Bld) [Ratio]0.0 %0.0 per 100 WBCBon [facility] Health [facility] HospitalPlatelet mean volume (Bld) [Entitic vol]9.3 fL8.1 - 13.5 fLBon [facility] Health [facility] HospitalPlatelets (Bld) [#/Vol]211 10*3/uLBon [facility] HospitalRBC (Bld) [#/Vol]5.24 10*6/uL4.21 - 5.77 m/uLBon [facility] HospitalSegmented neutrophils/100 WBC (Bld)4.00 %[facility] HospitalWBC other (Bld) [#/Vol]6.5Bon SecAscension All Saints Hospital SatelliteCBC with Diffon 39-18-9485Ccg. Basophil0.05 k/uLNormal0.00-0.20[facility] Comment on above:Performed By: #### UAMIC, CP, CDP, CK #### [address] [place] [id number] Carcass Splitter: Berny Lares MD #### GLYHGB, PSAS, LIPR #### [place] [id number] Carcass Splitter: Merrill Juarez.Imm.Granulocyte<0.26Agstod9.00-0.30[facility] Medical CenterComment on above:Performed By: #### UAMIC, CP, CDP, CK #### [facility] [address] [place] [address] [place] [id number] Carcass Splitter: Berny Lares MD #### GLYHGB, PSAS, LIPR #### [place] [id number] Carcass Splitter: Merrill Juarez.Neutrophil (Seg)4.00 k/uLNormal1.50-8.10 [facility] CenterComment on above:Performed By: #### UAMIC, CP, CDP, CK #### [facility] [address] [place] [address] [place] [address] Carcass Splitter: Berny Lares MD #### GLYHGB, PSAS, LIPR #### [place] [address] Carcass Splitter: Bharathi Boucher MDBasophils/100 WBC (Bld)1 %Normal0-2Mer[facility] Stamford HospitalComment on above:Performed By: #### UAMIC, CP, CDP, CK #### [address] [place] [id number] ( Carcass Splitter: Berny Lares MD #### GLYHGB, PSAS, LIPR #### [place] [address] Carcass Splitter: Bharathi Boucher MDEosinophils (Bld) [#/Vol]0.17 10*3/uLNormal 0.00-0.44[facility] CenterComment on above:Performed By: #### UAMIC, CP, CDP, CK #### [address] [place] [id number] Carcass Splitter: Berny Lares MD #### GLYHGQuyen, PSAS, LIPR #### [place] [address] Carcass Splitter: Bharathi Boucher MDEosinophils/100 WBC (Bld)3 %Normal1-4[facility] CenterComment on above:Performed By: #### UAMIC, CP, CDP, CK #### [address] [place] [id number] Carcass Splitter: Berny Lares MD #### GLYHGB, PSAS, LIPR #### [place] [address] Carcass Splitter: Bharathi Boucher MDErythrocyte distribution width (RBC) [Ratio]12.1 %Jioouo66.8-14.4[facility] CenterComment on above:Performed By: #### UAMIC, CP, CDP, CK #### [address] [place], [place] [id number] Carcass Splitter: Berny Lares MD #### GLYHGB, PSAS, LIPR #### [address] [address] Carcass Splitter: Bharathi Boucher MDHematocrit (Bld) [Volume fraction]48.5 %Normal 40.7-50.3MSt. Vincent HospitalComment on above:Performed By: #### UAMIC, CP, CDP, CK #### [address] [place], [place] [id number] Carcass Splitter: Berny Lares MD #### GLYHGB, PSAS, LIPR #### [address] [address] Carcass Splitter: Bharathi Boucher MDHemoglobin (Bld) [Mass/Vol]16.0 g/dLNormal 13.0-17.0[facility] CenterComment on above:Performed By: #### UAMIC, CP, CDP, CK #### [address] [place], [place] [address] Carcass Splitter: Berny Lares MD #### GLYHGB, PSAS, LIPR #### [address] [address] Carcass Splitter: Bharathi Boucher MDImmature granulocytes/100 WBC (Bld)0 %Normal0 [facility] CenterCommymichigan medical center on above:Performed By: #### UAMIC, CP, CDP, CK #### [address] [place], [place] [address] Carcass Splitter: Berny Lares MD #### GLYHGB, PSAS, LIPR #### [address] [id number] Carcass Splitter: Bharathi Boucher MDLymphocytes (Bld) [#/Vol]1.72 10*3/uLNormal 1.10-3.70[facility] CenterComment on above:Performed By: #### UAMIC, CP, CDP, CK #### [address] [place], [place] [address] Carcass Splitter: Berny Lares MD #### GLYHGB, PSAS, LIPR #### [address] [address] Carcass Splitter: Bharathi Boucher MDLymphocytes/100 WBC (Bld)27 %Wzlxey90-31DchpdUniversity Hospitals Parma Medical CenterComment on above:Performed By: #### UALYDIA, CP, CDP, CK #### [address] [place] [address] Carcass Splitter: Berny Lares MD #### GLYHGQuyen, PSAS, LIPR #### [place] [address] Carcass Splitter: UZAIR Juarez (RBC) [Entitic mass]30.5 dbQyjctb44.2-33.5 [facility] CenterComment on above:Performed By: #### CUCA, CP, CDP, CK #### [address] [place] [id number] Carcass Splitter: Berny Lares MD #### GLYHGB, PSAS, LIPR #### [address] [address] Carcass Splitter: UZAIR JuarezC (RBC) [Mass/Vol]33.0 g/yBUeqies89.4-34.8 [facility] CenterComment on above:Performed By: #### UAMIC, CP, CDP, CK #### [address] [place] [id number] Carcass Splitter: Berny Lares MD #### GLYHGB, PSAS, LIPR #### [address] [address] Carcass Splitter: Bharathi Boucher MDMCV (RBC) [Entitic vol]92.6 oYMpioio00.6-102.9 [facility] CenterComment on above:Performed By: #### UAMIC, CP, CDP, CK #### [address] [place] [id number] Carcass Splitter: Berny Lares MD #### GLYHGB, PSAS, LIPR #### [place] [address] Carcass Splitter: Bharathi Boucher MDMonocytes (Bld) [#/Vol]0.54 10*3/uLNormal 0.10-1.20[facility] CenterComment on above:Performed By: #### UAMIC, CP, CDP, CK #### [address] [place] [id number] Carcass Splitter: Berny Lares MD #### GLYHGQuyen, PSAS, LIPR #### [place] [address] Carcass Splitter: Bharathi Boucher MDMonocytes/100 WBC (Bld)8 %Normal3-12[facility] CenterComment on above:Performed By: #### UAMIC, CP, CDP, CK #### [address] [place] [id number] Carcass Splitter: Berny Lares MD #### GLYHGB, PSAS, LIPR #### [place] [address] Carcass Splitter: Bharathi Boucher MDNeutrophil (Seg)61 %Youcvc00-84IdxrlUniversity Hospitals Parma Medical CenterComment on above:Performed By: #### UAMIC, CP, CDP, CK #### [address] [place], [place] [id number] Carcass Splitter: Berny Lares MD #### GLYHGB, PSAS, LIPR #### [address] [address] Carcass Splitter: Bharathi Boucher MDNRBC Automated0.0 per 100 WBCNormal0.0[facility]als Parma Medical CenterCommymichigan medical center on above:Performed By: #### UAMIC, CP, CDP, CK #### [address] [place] [id number] Carcass Splitter: Berny Lares MD #### GLYHGB, PSAS, LIPR #### [place] [address] Carcass Splitter: Lui Juarez mean volume (Bld) [Entitic vol]9.3 fL Normal8.1-13.5University Hospitals Parma Medical CenterComment on above:Performed By: #### UAMIC, CP, CDP, CK #### [address] Salazar, [facility] Carcass Splitter: Berny Lares MD #### GLYHGB, PSAS, LIPR #### [place] [address] Carcass Splitter: Dk Juarezteailyn (Bld) [#/Vol]211 10*3/iTDxgxbh406-956 [facility] Par[facility] Medical CenterCommymichigan medical center on above:Performed By: #### UAMIC, CP, CDP, CK #### [address] [place] [id number] Carcass Splitter: Berny Lares MD #### GLYHGB, PSAS, LIPR #### [address] [id number] Carcass Splitter: MATHEUS JuarezBC (Bld) [#/Vol]5.24 10*6/uLNormal4.21-5.77 [facility] Parma Medical CenterComment on above:Performed By: #### UAMIC, CP, CDP, CK #### [address] [place] [id number] Carcass Splitter: Berny Lares MD #### GLYHGB, PSAS, LIPR #### [address] [id number] Carcass Splitter: Bharathi Boucher MDST. PETER'S HEALTH PARTN[facility] (d) [#/Vol]6.5 10*3/uLNormal3.5-11.3MSt. Vincent HospitalComment on above:Performed By: #### CUCA, CP, CDP, CK #### [address] [place] 5362083 Carcass Splitter: Berny Lares MD #### GLYHGB, PSAS, LIPR #### [address] [id number] Carcass Splitter: Bharathi Boucher, MDCKon 13-68-3889NX [Catalytic activity/Vol]52 U/L 39 - 308 U/LBon Secours White Hospital Metabolic Profon 20-27-0025Zkbniow [Mass/Vol]3.9 g/dLNormal3.5-5.2MSt. Vincent HospitalComment on above:Performed By: #### UAMIC, CP, CDP, CK #### [address] [place] 5362083 Carcass Splitter: Berny Lares MD #### GLYHGB, PSAS, LIPR #### [address] [id number] Carcass Splitter: Bharathi Boucher MDAlbumin/Glob Ratio1.9Tpsivx8.0-2.5University Hospitals Parma Medical CenterComment on above:Performed By: #### UAMIC, CP, CDP, CK #### [address] [place] [address] Carcass Splitter: Berny Lares MD #### GLYHGB, PSAS, LIPR #### [address] 1520008 Carcass Splitter: Isa Juarez Phos91 U/YEyevnr65-708LhzmhSCCI Hospital Lima on above:Performed By: #### UAMIC, CP, CDP, CK #### [address] [place], [place] 1628183 Carcass Splitter: Berny Lares MD #### GLYHGB, PSAS, LIPR #### [address] [id number] Carcass Splitter: Bharathi Boucher MDALT [Catalytic activity/Vol]26 U/OTuwbvz13-43 [facility]ma Medical CenterComment on above:Performed By: #### UAMIC, CP, CDP, CK #### [address] [place] 5362083 Carcass Splitter: Berny Lares MD #### GLYHGQuyen, PSAS, LIPR #### [address] [id number] Carcass Splitter: Quintin Juarez gap [Moles/Vol]6 mmol/LLow9-16University [facility] Parma Medical CenterComment on above:Performed By: #### UAMIC, CP, CDP, CK #### [address] [place] 5362083 Carcass Splitter: Berny Lares MD #### GLYHGB, PSAS, LIPR #### [address] [id number] Carcass Splitter: Bharathi Boucher MDAST [Catalytic activity/Vol]21 U/HGilesm06-51 [facility] Medical CenterCommymichigan medical center on above:Performed By: #### UAMIC, CP, CDP, CK #### [facility] [address] [place], [place] 1932683 Carcass Splitter: Berny Lares MD #### GLYHGB, PSAS, LIPR #### [address] [phone] Carcass Splitter: Bharathi Boucher MDBilirubin [Mass/Vol]0.6 mg/dLNormal0.00-1.20 [facility] Parma Medical CenterComment on above:Performed By: #### UAMIC, CP, CDP, CK #### [address] [place], [place] 3126083 Carcass Splitter: Berny Lares MD #### GLYHGB, PSAS, LIPR #### [address] [id number] Carcass Splitter: Bharathi Boucher MDBUN/CRE Smqmc52Tribzj1-30Vbwny [facility] Comment on above:Performed By: #### UAMIC, CP, CDP, CK #### [address] [place], [place] 9041283 Carcass Splitter: Berny Lares MD #### GLYHGB, PSAS, LIPR #### [address] [id number] Carcass Splitter: SANJUANITA Juarezalcium [Mass/Vol]8.7 mg/dLNormal8.6-10.4[facility]als Parma Medical CenterComment on above:Performed By: #### UAMIC, CP, CDP, CK #### [facility] [address] [place] [address] Dr. [place], [place] 1705283 Carcass Splitter: Berny Lares MD #### GLYHGB, PSAS, LIPR #### [address] 1889808 Carcass Splitter: SANJUANITA Juarezhloride [Moles/Vol]104 mmol/KHpxcvv33-946YbabgUniversity Hospitals Parma Medical CenterComment on above:Performed By: #### UAMIC, CP, CDP, CK #### [address] [place], [place] 3594083 Carcass Splitter: Berny Lares MD #### GLYHGB, PSAS, LIPR #### [address] 0233208 Carcass Splitter: SANJUANITA JuarezO2 [Moles/Vol]29 mmol/DHpkeyr69-40FipcoUniversity Hospitals Parma Medical CenterComment on above:Performed By: #### UAMIC, CP, CDP, CK #### [address] [place] 5362083 Carcass Splitter: Berny Lares MD #### GLYHGB, PSAS, LIPR #### [address] [id number] Carcass Splitter: SANJUANITA Juarezreatinine [Mass/Vol]1.1 mg/dLNormal0.70-1.20 [facility] Parma Medical CenterComment on above:Performed By: #### UAMIC, CP, CDP, CK #### [address] [place] [address] Carcass Splitter: Berny Lares MD #### GLYHGB, PSAS, LIPR #### [address] [phone] Carcass Splitter: Bharathi Boucher MDGFR/1.73 sq M.predicted among non-blacks MDRD (S/P/Bld) [Vol rate/Area]84 mL/min/{1.73_m2}Normal>60[facility] Comment on above:Result Comment: These results are not intended for use in patients <18 years of age. eGFR results are calculated without a race factor using the 2020 CKD-EPI equation. Careful clinical correlation is recommended, particularly when comparing to results calculated using previous equations. The CKD-EPI equation is less accurate in patients with extremes of muscle mass, extra-renal metabolism of creatine, excessive creatine ingestion, or following therapy that affects renal tubular secretion.Performed By: #### UAMIC, CP, CDP, CK #### [address] [place] 5362083 Carcass Splitter: Breny Lares MD #### GLYHGB, PSAS, LIPR #### [address] [id number] Carcass Splitter: Bharathi Boucher MDGlucose [Mass/Vol]101 mg/tBDvkz38-03EvtjrSt. Vincent HospitalComment on above:Performed By: #### UAMIC, CP, CDP, CK #### [address] [place] 5362083 Carcass Splitter: Berny Lares MD #### GLYHGB, PSAS, LIPR #### [place] [address] Carcass Splitter: Bharathi Boucher MDPotassium [Moles/Vol]4.3 mmol/LNormal3.7-5.3 [facility] Parma Medical CenterComment on above:Performed By: #### UAMIC, CP, CDP, CK #### [address] [place] 5362083 Carcass Splitter: Berny Lares MD #### GLYHGQuyen, PSAS, LIPR #### [address] [id number] Carcass Splitter: Bharathi Boucher MDProtein [Mass/Vol]6.6 g/dLNormal6.6-8.7[facility] Parma Medical CenterComment on above:Performed By: #### UAMIC, CP, CDP, CK #### [address] [place] [address] Carcass Splitter: Berny Lares MD #### GLYHGB, PSAS, LIPR #### [address] [phone] Carcass Splitter: AME Juarezodium [Moles/Vol]139 mmol/UZhhjge218-500TvqtwUniversity Hospitals Parma Medical CenterComment on above:Performed By: #### UAMIC, CP, CDP, CK #### [address] [place], [place] 3254883 Carcass Splitter: Berny Lares MD #### GLYHGB, PSAS, LIPR #### [facility] [address] [place], [place] [phone] Carcass Splitter: Bharathi Boucher MDUrea nitrogen [Mass/Vol]14 mg/dLNormal6-20[facility] Parma Medical CenterComment on above:Performed By: #### UAMIC, CP, CDP, CK #### [address] [place] [address] Carcass Splitter: Berny Lares MD #### GLYHGB, PSAS, LIPR #### [facility] [address] [place], [place] [id number] Carcass Splitter: SANJUANITA Juarezomprehensive Metabolic Panelon 04-29-2025 Albumin [Mass/Vol]3.9 g/dL3.5 - 5.2 g/dLBon [facility] HealthAlbumin/Globulin [Mass ratio]1.5 {ratio}1.0 - 2.5Bon [facility] Mercy HealthALP [Catalytic activity/Vol]91 U/L40 - 129 U/LBon Secours Mercy HealthALT [Catalytic activity/Vol]26 U/L10 - 50 U/LBon Secours Mercy HealthAnion gap [Moles/Vol]6 mmol/LLow9 - 16 mmol/LBon Secours Mercy HealthAST [Catalytic activity/Vol]21 U/L 10 - 50 U/LBon Secours Mercy HealthBilirubin [Mass/Vol]0.6 mg/dL0.00 - 1.20 mg/dLBon Secours Mercy HealthCalcium [Mass/Vol]8.7 mg/dL8.6 - 10.4 mg/dLBon Secours Mercy HealthChloride [Moles/Vol]104 mmol/L98 - 107 mmol/LBon [facility] HospitalCO2 [Moles/Vol]29 mmol/L20 - 31 mmol/LBon [facility] Creatinine [Mass/Vol]1.1 mg/dL0.70 - 1.20 mg/dLBon [facility] HospitalEst, Lizzette Filt Rate84- PINFBon [facility] HospitalComment on above: These results are not intended for use in patients <18 years of age. eGFR results are calculated without a race factor using the 2020 CKD-EPI equation. Careful clinical correlation is recommended, particularly when comparing to results calculated using previous equations. The CKD-EPI equation is less accurate in patients with extremes of muscle mass, extra-renal metabolism of creatine, excessive creatine ingestion, or following therapy that affects renal tubular secretion. Glucose [Mass/Vol]101 mg/pENvsx50 - 99 mg/dLBon [facility] Interpretation and review of laboratory resultsAbnormalBon [facility] Potassium [Moles/Vol]4.3 mmol/L3.7 - 5.3 mmol/LBon [facility] HospitalProtein [Mass/Vol]6.6 g/dL6.6 - 8.7 g/dLBon [facility] HospitalSodium [Moles/Vol]139 mmol/L136 - 145 mmol/LBon [facility] HospitalUrea nitrogen [Mass/Vol]14 mg/dL6 - 20 mg/dLBon [facility] HospitalUrea nitrogen/Creatinine [Mass ratio]13 mg/mg9 - 20Bon [facility] HospitalCreatine Kinaseon 14-46-8963ZA [Catalytic activity/Vol]52 U/PRxtvne09-851PerplUniversity Hospitals Parma Medical CenterComment on above:Performed By: #### UAMIC, CP, CDP, CK #### [facility] [address] [place] [address] Carcass Splitter: Berny Lares MD #### GLYHGB, PSAS, LIPR #### [facility] [address] [place] [address] Carcass Splitter: Bharathi Boucher MDHemoglobin A1Con 30-59-8972Iadwykc glucose Estimated from glycated hemoglobin (Bld) [Mass/Vol]88 mg/dLBon [facility] HospitalCommymichigan medical center on above:The ADA and AACC recommend providing the estimated average glucose result to permit better patient understanding of their HBA1c result. HbA1c (Bld) [Mass fraction]4.7 %4.0 - 6.0 %Bon [facility] SchoolGlucose [Mass/Vol]88 mg/dLNormalSCCI Hospital Lima on above:Result Comment: The ADA and AACC recommend providing the estimated average glucose result to permit better patient understanding of their HBA1c result.Performed By: #### UAMIC, CP, CDP, CK #### [address] [place] [address] Carcass Splitter: Berny Lares MD #### GLYHGB, PSAS, LIPR #### [facility] [address] [place] [id number] Carcass Splitter: Bharathi Boucher MDHbA1c (Bld) [Mass fraction]4.7 %Normal4.0-6.0 [facility] on above:Performed By: #### UAMIC, CP, CDP, CK #### [address] [place] [address] Carcass Splitter: Berny Lares MD #### GLYHGB, PSAS, LIPR #### [facility] [address] [place] [address] [id number] Carcass Splitter: Bharathi Boucher MDLipid Panelon 35-72-7725Qqdanxkankj [Mass/Vol] 146 mg/dL0 - 199 mg/dLBon [facility] HospitalComment on above: Cholesterol Guidelines: <200 Desirable 200-240 Borderline >240 Undesirable Cholesterol in HDL [Mass/Vol]43 mg/dL40 - PINF mg/dLBon [facility] Comment on above: HDL Guidelines: <40 Undesirable 40-59 Borderline >59 Desirable Cholesterol in LDL [Mass/Vol]89 mg/dL0 - 100 mg/dLBon [facility] Comment on above: LDL Guidelines: <100 Desirable 100-129 Near to/above Desirable 130-159 Borderline >159 Undesirable Direct (measured) LDL and calculated LDL are not interchangeable tests. Cholesterol in VLDL [Mass/Vol]14 mg/dL1 - 30 mg/dLBon [facility] Cholesterol.total/Cholesterol in HDL [Mass ratio]3.4 {ratio}NINF - 5.0Bon [facility] HospitalTriglyceride [Mass/Vol]69 mg/dLNINF - 150 mg/dLBon [facility] HospitalComment on above: Triglyceride Guidelines: <150 Desirable 150-199 Borderline 200-499 High >499 Very high Based on AHA Guidelines for fasting triglyceride, April 2012. Bon [facility] HospitalLipid Profileon 22-48-5950Btotihtvbbz [Mass/Vol]146 mg/dLNormal0-199[facility] on above:Result Comment: Cholesterol Guidelines: <200 Desirable 200-240 Borderline >240 UndesirablePerformed By: #### UAMIC, CP, CDP, CK #### [facility] [address] [place] [address] [place] [address] Carcass Splitter: Berny Lares MD #### GLYHGB, PSAS, LIPR #### [facility] [address] [place] [address] Carcass Splitter: SANJUANITA Juarezholesterol in HDL [Mass/Vol]43 mg/dLNormal>40 [facility] on above:Result Comment: HDL Guidelines: <40 Undesirable 40-59 Borderline >59 DesirablePerformed By: #### UAMIC, CP, CDP, CK #### [facility] [address] [place] [address] [place] [address] Carcass Splitter: Berny Lares MD #### GLYHGB, PSAS, LIPR #### [facility] [place] [address] Carcass Splitter: SANJUANITA Juarezholesterol in LDL [Mass/Vol]89 mg/dLNormal0-100 [facility] on above:Result Comment: LDL Guidelines: <100 Desirable 100-129 Near to/above Desirable 130-159 Borderline >159 Undesirable Direct (measured) LDL and calculated LDL are not interchangeable tests.Performed By: #### UALYDIA, CP, CDP, CK #### [address] [place] [address] Carcass Splitter: Berny Lares MD #### GLYHGB, PSAS, LIPR #### [address] [id number] Carcass Splitter: SANJUANITA Juarezholesterol in VLDL [Mass/Vol]14 mg/dLNormal1-30 [facility] Medical CenterComment on above:Performed By: #### REJI THURMAN, CDP, CK #### [address] [place] [address] Carcass Splitter: Berny Lares MD #### GLYHGQuyen, PSAS, LIPR #### [address] [phone] Carcass Splitter: Omar Juarezstcierra.total/Cholesterol in HDL [Mass ratio]3.4 {ratio}Normal<5.0[facility] Medical CenterComment on above:Performed By: #### REJI THURMAN, CDP, CK #### [address] [place] 536[address]83 Carcass Splitter: Berny Lares MD #### GLYHGQuyen, PSAS, LIPR #### [place] [address] [place], [place] 4490908 Carcass Splitter: Bharathi Boucher MDTriglyceride [Mass/Vol]69 mg/dLNormal<150[facility] Medical CenterComment on above:Result Comment: Triglyceride Guidelines: <150 Desirable 150-199 Borderline 200-499 High >499 Very high Based on AHA Guidelines for fasting triglyceride, April 2012.Performed By: #### UALYDIA, CP, CDP, CK #### [address] [place] [address] Carcass Splitter: Berny Lares MD #### GLYHGB, PSAS, LIPR #### [employer] [facility] [place], [place] [phone] Carcass Splitter: Bharathi Boucher MDNo Panel Informationon 62-74-4976G[facility] Screeningon 16-40-7475Tvnpdgzg specific Ag [Mass/Vol]3.32 ng/mL 0.00 - 4.00 ng/mLBon [facility] HospitalCommymichigan medical center on above:The Chhaya ECLIA assay is used. Results obtained with different assay methods cannot be used interchangeably. Bon [facility], Screeningon 79-21-3122Eeybzksrb Spec. Ag3.32 ng/mL Normal0.00-4.00[facility] on above:Result Comment: The Chhaay ECLIA assay is used. Results obtained with different assay methods cannot be used interchangeably.Performed By: #### UAMIC, CP, CDP, CK #### [address] [place] [id number] Carcass Splitter: Berny Lares MD #### GLYHGB, PSAS, LIPR #### [employer] [address] [place], [place] 1534[address] Carcass Splitter: Bharathi Boucher MDUrinalysis w/ Microon 36-70-1336RksejoxzVBVMC AbnormalNONEMeBridgeport HospitalCommymichigan medical center on above:Performed By: #### UAMIC, CP, CDP, CK #### [address] [place] [id number] Carcass Splitter: Berny Lares MD #### GLYHGB, PSAS, LIPR #### [employer] [address] [place] [address] [id number] Carcass Splitter: Bharathi Boucher MDBilirubin, SemiQt,UrNegativeNormalNEGUniversity Hospitals Parma Medical CenterCommymichigan medical center on above:Performed By: #### UAMIC, CP, CDP, CK #### [address] [place] [phone] ( Carcass Splitter: Berny Lares MD #### GLYHGB, PSAS, LIPR #### [address] [id number] Carcass Splitter: Lupe Juarez, UrineNegativeNormalNEGUniversity Hospitals Parma Medical CenterComment on above:Performed By: #### UAMIC, CP, CDP, CK #### [address] [place] 5362083 Carcass Splitter: Berny Lares MD #### GLYHGB, PSAS, LIPR #### [place] [phone] Carcass Splitter: Agustina Juarezri (ClearNormalCLEARUniversity Hospitals Parma Medical Center Comment on above:Performed By: #### UAMIC, CP, CDP, CK #### [address] [place] [address] Carcass Splitter: Berny Lares MD #### GLYHGB, PSAS, LIPR #### [place] [address] Carcass Splitter: Ronald Juarez (YellowNoalYOhioHealth Dublin Methodist Hospital Comment on above:Performed By: #### UAMIC, CP, CDP, CK #### [address] [place] 5362083 Carcass Splitter: Berny Lares MD #### GLYHGB, PSAS, LIPR #### [address] [address] Carcass Splitter: Bharathi Boucher MDEpithelial cells LM Ql (Urine sed)0 TO 2Normal 0-5[facility] Medical CenterComment on above:Performed By: #### UAMIC, CP, CDP, CK #### [address] [place] 5362083 Carcass Splitter: Berny Lares MD #### GLYHGB, PSAS, LIPR #### [address] [id number] Carcass Splitter: Bharathi Boucher MDGlucose Ql (U)NegativeNormalNEGMercy Stamford HospitalComment on above:Performed By: #### UAMIC, CP, CDP, CK #### [address] [place] 5362083 Carcass Splitter: Berny Lares MD #### GLYHGB, PSAS, LIPR #### [place] [phone] Carcass Splitter: Bharathi Boucher MDKetones Ql (U)NegativeNormalNEGMerVeterans Administration Medical CenterComment on above:Performed By: #### UAMIC, CP, CDP, CK #### [address] [place] [phone] Carcass Splitter: Berny Lares MD #### GLYHGB, PSAS, LIPR #### [place] [address] Carcass Splitter: Bharathi Boucher MDLeukocyte esterase Test strip Ql (U)Negative NormalNEGUniversity Hospitals Parma Medical CenterComment on above:Performed By: #### UAMIC, CP, CDP, CK #### [address] [place] 5362083 Carcass Splitter: Berny Lares MD #### GLYHGB, PSAS, LIPR #### [address] [id number] Carcass Splitter: YOUSIF Juarezuc [place] [address]+AbnormalNONEMeBridgeport Hospital Comment on above:Performed By: #### UAMIC, CP, CDP, CK #### [address] [place] 5362083 Carcass Splitter: Berny Lares MD #### GLYHGB, PSAS, LIPR #### [facility] [place] [address] Carcass Splitter: Bharathi Boucher MDNitrite,UrNegativeAultman Hospital Comment on above:Performed By: #### UAMIC, CP, CDP, CK #### [address] [place] 536[address]88 ( Carcass Splitter: Berny Lares MD #### GLYHGB, PSAS, LIPR #### [address] [phone] Carcass Splitter: TAN Juarez,Ur6.7Azzxpu9.0-9.0[facility] Comment on above:Performed By: #### UAMIC, CP, CDP, CK #### [address] [place] [address] Carcass Splitter: Berny Lares MD #### GLYHGB, PSAS, LIPR #### [place] [address] Carcass Splitter: TAN Juarezmountainside hospital Ql (U)NegativeNormWadsworth-Rittman HospitalComment on above:Performed By: #### UAMIC, CP, CDP, CK #### [address] [place] [address] Carcass Splitter: Berny Lares MD #### GLYHGB, PSAS, LIPR #### [address] [phone] Carcass Splitter: AME Juarezpec. Mahomet,Ur1.410Ogpj7.010-1.020[facility] Medical CenterComment on above:Performed By: #### UAMIC, CP, CDP, CK #### [address] [place] 536[address]92 ( Carcass Splitter: Berny Lares MD #### GLYHGB, PSAS, LIPR #### [facility] [place], [place] [phone] Carcass Splitter: Bharathi Boucher MDUrine RBC's0 TO 2Idrwgk3-1GbouzSt. Vincent Hospital Comment on above:Performed By: #### UAMIC, CP, CDP, CK #### [facility] [address] [place] [address] [place] [phone] Carcass Splitter: Berny Lares MD #### GLYHGB, PSAS, LIPR #### [address] [phone] Carcass Splitter: Billy Juarez WBC's2 TO 1Csjrqp6-5WevpdUniversity Hospitals Parma Medical Center Comment on above:Performed By: #### UAMIC, CP, CDP, CK #### [address] [place] [phone] Carcass Splitter: Berny Lares MD #### GLYHGB, PSAS, LIPR #### [address] [phone] Carcass Splitter: Bharathi Boucher MDUrobilinogen,UrNormalNormal0.0-1.0[facility] Medical CenterComment on above:Performed By: #### UAMIC, CP, CDP, CK #### [address] [place] [phone] Carcass Splitter: Berny Lares MD #### GLYHGB, PSAS, LIPR #### [address] [phone] Carcass Splitter: Bharathi Boucher MDUrinalysis with Microscopicon 40-74-5857Tplrpchx LM Ql (Urine sed)TRACEAbnormalNoneBon [facility]ours [facility] HealthBilirubin Ql (U) NegativeNEGATIVEBon Secours [facility] HealthClarity (U)ClearClearBon Secours Mercy HealthColor (U)YellowYellowBon Secours Mercy HealthEpithelial cells LM.HPF (Urine sed) [#/Area]0 TO 2[facility] HealthGlucose Test strip (U) [Mass/Vol]NegativeNEGATIVE mg/dLBon Secours Mercy HealthHemoglobin Auto test strip Ql (U)NegativeNEGATIVEBon Secours Mercy HealthInterpretation and review of laboratory resultsAbnormalBon Secours Mercy HealthKetones (U) [Mass/Vol] NegativeNEGATIVE mg/dLBon Secours Mercy HealthLeukocyte esterase Test strip Ql (U)NegativeNEGATIVEBon Secours Mercy HealthMucus Ql (Urine sed)1+AbnormalNoneBon [facility]ours Mer[facility] HealthNitrite Ql (U)NegativeNEGATIVEBon Secours Mercy HealthpH (U)6.0 [pH]5.0 - 9.0[facility] HealthProtein (U) [Mass/Vol]Negative NEGATIVE mg/dLBon Secours Mercy HealthRBC LM.HPF (Urine sed) [#/Area]0 TO 2Bon [facility] HealthSpecific gravity (U) [Rel density]1.548Ueoj5.010 - 1.020Bon [facility] HealthUrobilinogen Qn (U)Normal0.0 - 1.0 EU/dLBon Secours Mercy HealthWBC LM.HPF (Urine sed) [#/Area]2 TO 5Bon [facility] Mercy HealthBon Secours Mercy HealthBasophils Auto (Bld) [#/Vol]Ordered By: Rad Lopez on 04-23-2025 Basophils (Bld) [#/Vol]0.0 10 3/uL0.0-0.1FMercy Health St. [facility] Basophils/100 WBC Auto (Bld)Ordered By: Rad Lopez on 36-71-4261Fhhcyvxgu/100 WBC (Bld)0.4 %0.2-2.0[facility] SystemEosinophils/100 WBC Auto (Bld)Ordered By: Rad Lopez on 09-72-6274Cvctahvidvr/100 WBC (Bld)2.7 %0.9-7.0 [facility] SystemErythrocyte distribution width Auto (RBC) [Ratio]Ordered By: Rad Lopez on 47-36-4848Ehomxikbenx distribution width (RBC) [Ratio]12.1 %11.0-15.0[facility] Health SystemGlomerular filtration rate (GFR) estimation in non- AmericanOrdered By: Rad Lopez on 37-66-1769CXY/1.73 sq M.predicted among non-blacks MDRD (S/P/Bld) [Vol rate/Area]mL/min/{1.73_m2}>=60 mL/min/1.73m 2FMercy Health St. [facility] Hematocrit Auto (Bld) [Volume fraction]Ordered By: Rad Lopez on 04-23-2025 Hematocrit (Bld) [Volume fraction]46.1 %42.0-54.0[facility] SystemHemoglobin [Mass/volume] in BloodOrdered By: Rad Lopez on 04-23-2025 Hemoglobin (Bld) [Mass/Vol]15.7 g/dL14.0-18.0[facility] Laboratory - Chemistry and Chemistry - challengeOrdered By: Rad Lopez on 08-51-4063Dokcrrz [Mass/Vol]8.4 mg/dLLow8.5-10.1FMercy Health St. Joseph Warren HospitalChloride [Moles/Vol]104 mmol/H26-884XrapagechBlanchard Valley Health SystemCK [Catalytic activity/Vol]64 U/P74-482IfmnwthbrBlanchard Valley Health SystemCO2 [Moles/Vol]30.8 mmol/L21.0-32.0[facility] SystemCreatinine [Mass/Vol]1.03 mg/dL0.70-1.30[facility] SystemGFR/1.73 sq M.predicted MDRD (S/P/Bld) [Vol rate/Area]mL/min/{1.73_m2}>=60 mL/min/1.73m 2 [facility] SystemGlucose [Mass/Vol]144 mg/bBBjrm89-759CxrhhhdyhBlanchard Valley Health SystemPotassium [Moles/Vol]3.6 mmol/L3.5-5.1FSuburban Community Hospital & Brentwood Hospitalodium [Moles/Vol]141 mmol/F583-407NbpdotfvzBlanchard Valley Health SystemUrea nitrogen [Mass/Vol]14.0 mg/dL7.0-18.0[facility] SystemUrea nitrogen/Creatinine [Mass ratio]13.6 mg/mgBlanchard Valley Health SystemLaboratory - Hematology and Cell countsOrdered By: Rad Lopez on 15-06-2961Rbuttxrl granulocytes/100 WBC (Bld)0.3 %0.0-0.5FMercy Health St. Joseph Warren HospitalLeukocytes [#/volume] corrected for nucleated erythrocytes in Blood by Automated counOrdered By: Rad Lopez on 61-40-2468RYO corrected for nucl RBC Auto (Bld) [#/Vol]6.8 10 3/uL4.0-11.0[facility] Lymphocytes Auto (Bld) [#/Vol]Ordered By: Rad Lopez on 62-98-9266Gtrzwhpqkoc (Bld) [#/Vol]1.7 10 3/uL1.2-3.8[facility] SystemLymphocytes/100 WBC Auto (Bld)Ordered By: Rad Lopez on 05-37-3499Cggqrpxbeuf/100 WBC (Bld)25.2 %20.5-60.0[facility] HospitalH Auto (RBC) [Entitic mass]Ordered By: Rad Lopez on 96-83-7373WGD (RBC) [Entitic mass]31.0 pg25.9-34.0[facility] SystemMCHC Auto (RBC) [Mass/Vol]Ordered By: Rad Lopez on 64-48-1771AIZI (RBC) [Mass/Vol]34.1 g/dL29.9-35.2FMercy Health St. Joseph Warren HospitalMCV Auto (RBC) [Entitic vol]Ordered By: Rad Lopez on 63-17-2821UJS (RBC) [Entitic vol]90.9 fL80.0-94.0[facility] SystemMonocytes Auto (Bld) [#/Vol]Ordered By: Rad Lopez on 17-28-6739Ykhiyuzay (Bld) [#/Vol]0.4 10 3/uL0.3-0.8[facility] SystemMonocytes/100 WBC Auto (Bld)Ordered By: Rad Lopez on 54-14-6616Kkwxvjmsg/100 WBC (Bld)5.9 %1.7-12.0[facility] SystemNeutrophils Auto (Bld) [#/Vol]Ordered By: Rad Lopez on 31-13-0660Qmaaipwdudb (Bld) [#/Vol]4.4 10 3/uL1.4-6.5FMercy Health St. Joseph Warren HospitalNeutrophils/100 WBC Auto (Bld)Ordered By: Rad Lopez on 04-23-2025 Neutrophils/100 WBC (Bld)65.5 %43.0-75.0[facility] SystemNo Panel InformationOrdered By: Rad Lopez on 43-31-9234Ohrwkvpveox # (Auto)0.2 10 3/uL0.0-0.7FMercy Health St. Joseph Warren HospitalImmature Granulocyte # (Auto)0.02 10 3/uL0.00-0.03[facility] SystemPlatelet mean volume Auto (Bld) [Entitic vol]Ordered By: Rad Lopez on 69-24-7423Jrfhuayh mean volume (Bld) [Entitic vol]9.6 fL9.5-13.5FMercy Health St. Joseph Warren HospitalPlatelets Auto (Bld) [#/Vol]Ordered By: Rad Lopez on 62-44-0424Dugelioxf (Bld) [#/Vol]215 10 3/uL 150-450[facility] SystemRBC Auto (Bld) [#/Vol]Ordered By: Rad Lopez on 66-40-0423QND (Bld) [#/Vol]5.07 10 6/uL4.70-6.10[facility] Rita's Medical Centererum or plasma anion gap determinationOrdered By: Rad Lopez on 97-27-8892Jqgwh gap [Moles/Vol]9.8 mmol/LFMercy Health St. Joseph Warren Hospital CYTOLOGYon 22-67-6721GTUIIAKTNCCZW CYTOLOGY CancelledMiami Valley HospitalComment on above:Order Comment: Wrong test ordered, see Cytology non- gynecologic [id number].UROVYSION(TM) FOR BLADDERon 02-14-2628MCTJVCBGT FOR BLADDER CANCERSEE COMMENTSMiami Valley HospitalComment on above: Result Comment: Test Result Flag Unit RefValue UroVysion [...] and a locus specific probe for 9p21 ([employer] [place], [place]). This test has been modified from the in flight crew member's instructions. Its performance characteristics were determined by [facility] in a manner consistent with CLIA requirements. This test has not been cleared or approved by the U.S. Food and Drug Administration. Reason for Referral Evaluate for urothelial carcinoma. Specimen Varies Source Urine, NOS Released By Calixto Gross M.D. Test Performed by: [place] [address] [employer]: Te Moreau Ph.D.; CLIA# [id number] By: #### URVY #### [facility] [employer]) [address] [place] [address] VIRTBH VITAMIN D 25 OHon 59-50-7165BWWBHOL D42 ng/mLNOMS HealthcareComment on above:<20 ng/mL Vit D deficient 20-<30 ng/mL Vit D insufficient 30-100 ng/mL Vit D sufficient >100 ng/mL Potential Toxicity CLINISYNCNOMS HealthcareALL BASIC METABOLIC PANELon 53-36-0902Ihodm gap [Moles/Vol]12 mmol/LNOMS HealthcareCalcium [Mass/Vol]8.7 mg/dL8.5 - 10.1 mg/dL NOMS HealthcareChloride [Moles/Vol]103 mmol/L98 - 107 mmol/LNOMS HealthcareCO2 [Moles/Vol]30.6 mmol/L21.0 - 32.0 mmol/LNOMS HealthcareCreatinine [Mass/Vol]1.09 mg/dL0.70 - 1.30 mg/dLNONC HealthcareGFR/1.73 sq M.predicted CKD-EPI (S/P/Bld) [Vol rate/Area]>60>=60 mL/min/1.73m 2NOMS HealthcareGlucose [Mass/Vol]107 mg/dL High74 - 106 mg/dLNONC HealthcareInterpretation and review of laboratory results AbnormalNOMS HealthcarePotassium [Moles/Vol]3.6 mmol/L3.5 - 5.1 mmol/LNOMS HealthcareSodium [Moles/Vol]142 mmol/L136 - 145 mmol/LNOMS HealthcareTBH EGFR- NON AF CYMRAES>60>=60 mL/min/1.73m 2NOMS HealthcareUrea nitrogen [Mass/Vol]9 mg/dL7.0 - 18.0 mg/dLNONC HealthcareUrea nitrogen/Creatinine [Mass ratio]8.3 mg/mgNONC HealthcareCLINISYNCNSOUTHWESTERN MEDICAL [facility] HealthcareUPPER RESPIRATORY CULTUREon 38-95-8231OSKPZ RESPIRATORY CULTURE Upper Respiratory Culture NOMS HealthcareUPPER RESPIRATORY CULTURERoutine respiratory floraNONC Healthcare UPPER RESPIRATORY CULTUREPerformed at: CB - [facility] UPMCUPPER RESPIRATORY [id number] [place], [place] [id number] HealthcareUPPER RESPIRATORY CULTURELab Director: Juan Francisco Madison PhD, Phone: [phone] HealthcareCLINISYNHOLYOKE MEDICAL CENTER HealthcareMLR HEMOGLOBIN A1Con 96-96-6583Utbisgg [Mass/Vol]97 mg/dLNONC UngxrctnmzImG9r (Bld) [Mass fraction]5 %4.5 - 6.2 %NOMS HealthcareComment on above:ADA RECOMMENDED LIMIT 4.0 - 6.0 ADA THERAPEUTIC TARGET < 7.0 ACTION SUGGESTED > 7.0 CLINISYNCNONC HealthcareALL LIPID PROFILE (FASTING)on 46-96-5516YHHU HDL RATIO 2.9NOMS HealthcareComment on above:3.3 - 4.4 LOW RISK 4.4 - 7.1 AVERAGE RISK 7.1 - 11.0 MODERATE RISK >11.0 HIGH RISK Cholesterol [Mass/Vol]138 mg/dLNINF - 200 mg/dLNOMS HealthcareCholesterol in HDL [Mass/Vol]47 mg/dL40 - 60 mg/dLNOMS HealthcareComment on above:> or =60 mg/dl - LOW CARDIOVASCULAR RISK <40 mg/dl - HIGH CARDIOVASCULAR RISK Magnesium [Mass/Vol]76.4 mg/dLNOMS HealthcareComment on above:<100 mg/dl OPTIMAL 100-129 mg/dl NEAR OR ABOVE OPTIMAL 130-159 mg/dl BORDERLINE HIGH 160-189 mg/dl HIGH >190 mg/dl VERY HIGH Magnesium [Mass/Vol]14.6 mg/dLNOMS HealthcareTriglyceride [Mass/Vol]73 mg/dLNINF - 150 mg/dLNONC HealthcareALL THYROID STIM HORMONEon 16-91-5395QCT Qn2.102 m[IU]/LNOMS HealthcareCCF CMP (CMP) (FOR REMOTE [facility] USE)on 17-40-9217Ukdysum [Mass/Vol]3.3 g/dLLow3.4 - 5.0 g/dLNONC HealthcareALBUMIN GLOBULIN AASAD2ZRGZ HealthcareALP [Catalytic activity/Vol]93 U/L46 - 116 U/LNOMS HealthcareALT [Catalytic activity/Vol]38 U/L16 - 63 U/LNOMS HealthcareAnion gap [Moles/Vol]7.8 mmol/LNOMS HealthcareAST [Catalytic activity/Vol]19 U/L15 - 37 U/LNOMS HealthcareBilirubin [Mass/Vol]0.7 mg/dL0.2 - 1.0 mg/dLNOMS HealthcareCalcium [Mass/Vol]8.3 mg/dLLow8.5 - 10.1 mg/dLNOMS HealthcareChloride [Moles/Vol]106 mmol/L98 - 107 mmol/LNOMS HealthcareCO2 [Moles/Vol]32.1 mmol/LHigh21.0 - 32.0 mmol/LNOMS HealthcareCreatinine [Mass/Vol]1.14 mg/dL0.70 - 1.30 mg/dLNONC HealthcareGFR/1.73 sq M.predicted CKD-EPI (S/P/Bld) [Vol rate/Area]>60>=60 mL/min/1.73m 2NOMS HealthcareGlobulin (S) [Mass/Vol]3.3 g/dLNOMS Healthcare Glucose [Mass/Vol]119 mg/fTYosv95 - 106 mg/dLNONC HealthcareInterpretation and review of laboratory resultsAbnormalNONC HealthcarePotassium [Moles/Vol]3.9 mmol/L3.5 - 5.1 mmol/LNOMS HealthcareProtein [Mass/Vol]6.6 g/dL6.4 - 8.2 g/dL NOMS HealthcareSodium [Moles/Vol]142 mmol/L136 - 145 mmol/LNOMS HealthcareTBH EGFR-NON AF CYMRAES>60>=60 mL/min/1.73m 2NOMS HealthcareUrea nitrogen [Mass/Vol]13 mg/dL7.0 - 18.0 mg/dLNONC HealthcareUrea nitrogen/Creatinine [Mass ratio]11.4 mg/mgNOMS HealthcareNo Panel Informationon 42-04-4119OEWCOPMSJPLCA HealthcareCytologyon 40-65-7875BvqjpmebCnutlaFhuSzptkv [facility] HospitalComment on above:Result Comment: [facility] [address] [place] [address] Cytology Consultation Patient Name:RENO ABREU:1970 (Age: 53)Gender:MTaken:06/17/2024eported:06/18/2024 14:16Physician(s):Lida Suh M.D. ([phone])Copy To: Rec. #:[id number] Acct: #[id number] Final Cytologic Diagnosis Urine: Negative for high-grade urothelial cell carcinoma. 06/18/2024 Interpretation [place] [address], License number: [id number].Electronically Signed Out By Trevin Mallory MD Clinical History Malignant neoplasm of overlapping sites of bladder (CMS-HCC) (C67.8) Gross Description Received was 50 mL of cloudy yellow fluid labeled as [place], urine .Preservative added. 25 mL used for Cytology. See UroVysion report. Source of Specimen Urine Non SET UP [employer] W[employer] ThinPrep Fee Code(s): 1; 24012Xzvwmddnm Lab Test IDon 98-63-2587JMIMFDNNL FOR BLADDER CANCERSEE COMMENTS 06/25/2024 12:33 PMNormalProMedica Scripps Memorial HospitalComment on above: Result Comment: NOTE Test Result Flag Unit RefValue UroVysion (R) [...] specific probe for 9p21 ([employer] [place], [place]). This test has been modified from the in flight crew member's instructions. Its performance characteristics were determined by [facility] in a manner consistent with CLIA requirements. This test has not been cleared or approved by the U.S. Food and Drug Administration. Reason for Referral Evaluate for urothelial carcinoma. Specimen Varies Source Urine, NOS Released By See Note Calixto Gross M.D. Test Performed by: [address] [address] [employer]: Te Moreau Ph.D.; CLIA# [id number] By: #### 20044- 5 #### [facility] ([id number]) [address] [place] [address] FIRST [address]LO[address] [place], [place] [address]Iahsgmpnpr 22-19-3212AeokjricWfnimnXdxLwpkpx [facility] Comment on above:Result Comment: [facility] [address] [place] [address] Cytology Consultation Patient Name:RENO ABREU:1970 (Age: 53)Gender:MTaken:03/18/2024eported:03/19/2024 17:33Physician(s):Lida Suh M.D. ([phone])Copy To: Rec. #:[id number]: #[id number] Final Cytologic Diagnosis Urine clean catch: Negative for high-grade urothelial cell carcinoma. ao/03/19/2024 Interpretation performed at [facility], [address] [place], [place] [address], License number: [id number].Electronically Signed Out By George Smith MD Clinical History Malignant neoplasm of overlapping sites of bladder ([facility]-HCC) C67.8 Gross Description Received was 70mL of cloudy nannette fluid unfixed labeled as [place], Urine clean catch . 35mL used forCytology. See UroVysion report. Source of Specimen Urine clean catch Non SET UP [employer] ThinPrep Fee Code(s): 1; 81793Xsvmvhhvw Lab Test IDon 78-50-5360OJRWPXVXQ FOR BLADDER CANCERSEE COMMENTS 03/26/2024 08:20 AMNormalGenesis HospitalComment on above: Result Comment: NOTE Test Result Flag Unit RefValue UroVysion (R) [...] and a locus specific probe for 9p21 ([employer] [place], [place]). This test has been modified from the in flight crew member's instructions. Its performance characteristics were determined by [facility] in a manner consistent with CLIA requirements. This test has not been cleared or approved by the U.S. Food and Drug Administration. Reason for Referral Evaluate for urothelial carcinoma. Specimen Varies Source Urine, NOS Released By Adrianna Proctor M.D. Test Performed by: [place] [address] [employer]: Te Moreau Ph.D.; CLIA# [id number] By: #### 85289- 5 #### [facility] ([id number]) [address] [place] [address]Sdwffaiw specific Ag [Mass/Vol]on 76-42-2165PVILEEDXV SPEC ANT 2.12 ng/mLNormal0.00-4.00ProHendrick Medical Center BrownwoodComment on above:Result Comment: The method used for this test is Tomas Rodrigo DXI chemiluminescent immunoassay. Values obtained by different assay methods cannot be used interchangeably.Performed By: #### 2857-1 #### [facility] ([id number]) [address] [place], [place] [address]CMKGK CULTUREon 76-42-9179Cnwuumuf identified Cx Nom (U)CULTURE RESULTS <10,000 ORGANISMS/ML NORMAL URO GENITAL FLORANormalProHendrick Medical Center Brownwood Comment on above:Performed By: #### 630-4 #### [facility] ([id number]) [facility] [address] [place], [place] [address]Kyaovwz post void residualon 32-41-4175Etadfb98kcZpvHfgnur Health SystemProOhiohealth Grove City Methodist HospitalBASIC METABOLIC PANLon 53-16-5371Wzrgk gap [Moles/Vol]6 mmol/LNormal5-15ProMartin Memorial HospitalComment on above:Performed By: #### ALEXYS DAVIS, , 2776-07 #### [facility] ([id number]) [address], [address] [place], [place] [address]Uwggtav [Mass/Vol]8.0 mg/dLLow8.5-10.5PProMedica [facility] Hospital Comment on above:Performed By: #### ALEXYS DAVIS, , 2776-07 #### [facility] ([id number]) [address], [address] [place], [place] [address]Tswtrkqg [Moles/Vol]104 mmol/MZtqzyo79-976JibBaesow [facility] HospitalComment on above:Performed By: #### ALEXYS DAVIS, , 2776-07 #### [facility] ([id number]) [address], [address] [place], [place] [address]VG0 [Moles/Vol]28 mmol/KHfxfji64-79EnaMbssygProMedica [facility] Hospital Comment on above:Performed By: #### ALEXYS DAVIS, , 2776-07 #### [facility] ([id number]) [address], [address] [place], [place] [address]Nbchzabmtp [Mass/Vol]0.91 mg/dLNormal0.60-1.30ProMartin Memorial HospitalComment on above:Result Comment: METHOD TRACEABLE TO IDMS STANDARD Performed By: #### ALEXYS DAVIS, , 2776-07 #### [facility] ([id number]) [address], [address] [place], [place] [address]kIIX (CKD-EPI) NON-RACE DEPENDENT>90Normal>59ProGalion Community Hospital HospitalComment on above:Result Comment: Reported eGFR is based on the CKD-EPI 2020 equation that does not use a race coefficient.Performed By: #### ALEXYS DAVIS, , 2776-07 #### [facility] ([id number]) [address], [address] [place], [place] [address]Asvdvwl [Mass/Vol]112 mg/oSFkqn09-35ZjaUilmlh [facility] Comment on above:Performed By: #### ALEXYS DAVIS, , 2776-07 #### [facility] ([id number]) [address], [address] [place], [place] [address]Resrnyvdx [Moles/Vol]3.8 mmol/LNormal3.5-5.0ProGalion Community Hospital HospitalComment on above:Performed By: #### ALEXYS DAVIS, , 2776-07 #### [facility] ([id number]) [address], [address] [place], [place] [address]Hkkury [Moles/Vol]138 mmol/GUcqsne981-659EvoCxxvsk [place] HospitalComment on above:Performed By: #### ALEXYS DAVIS, , 2776-07 #### [facility] ([id number]) [address], [address] [place], [place] [address]Xoei nitrogen [Mass/Vol]15 mg/dLNormal5-23ProGalion Community Hospital HospitalComment on above:Performed By: #### ALEXYS DAVIS, , 2776-07 #### [facility] ([id number]) [address], [address] [place], [place] [address]TPQ AND AUTO DIFFon 83-63-6191JLWZWTGP BASOPHIL0.0 X10E9/LNormal 0.0-0.2ProMedica [facility]inta HospitalComment on above:Performed By: #### ALEXYS DAVIS, , 2776-07 #### [facility] ([id number]) [address], [address] [place], [place] [address]ZEUYEUOW NEUTROPHIL3.7 X10E9/LNormal1.5-6.6ProGalion Community Hospital HospitalComment on above:Performed By: #### CBCA, BMP, , 2776-07 #### [facility] ([id number]) [address], [address] [place], [place] [address]Mzmvfyzzy/100 WBC (Bld)0.4 %NormalWestern Reserve Hospital Comment on above:Performed By: #### CBCA, BMP, , 2776-07 #### [facility] ([id number]) [address], [address] [place], [place] [address]Kzrrhchlnyc (Bld) [#/Vol]0.2 10*3/uLNormal0.0-0.4ProGalion Community Hospital HospitalComment on above:Performed By: #### CBCA, BMP, , 2776-07 #### [facility] ([id number]) [address], [address] [place], [place] [address]Cnfkaauqknz/100 WBC (Bld)3.5 %NormalWestern Reserve Hospital Comment on above:Performed By: #### CBCJune, ALEXYS, , 2776-07 #### [facility] ([id number]) [address], [address] [place], [place] [address]Atfnnfmhoov distribution width (RBC) [Ratio]12.5 %Normal 11.5-15.0ProGalion Community Hospital HospitalComment on above:Performed By: #### CBCA, BMP, , 2776-07 #### [facility] ([id number]) [address], [address] [place], [place] [address]Yirnnekcnq (Bld) [Volume fraction]40.6 %Zplrgc53-52CzkRrmign [place] HospitalComment on above:Performed By: #### CBCA, BMP, , 2776-07 #### [facility] ([id number]) [address], [address] [place], [place] [address]Ypsiutmxru (Bld) [Mass/Vol]13.9 g/bDKtqasf09.0-17.0ProHolzer Hospitalca Malinta HospitalComment on above:Performed By: #### CBCALEXYS Watkins, , 2776-07 #### [facility] ([id number]) [address], [address] [place], [place] [address]Ibojlslqixf (Bld) [#/Vol]1.5 10*3/uLNormal1.0-3.5ProMedica [facility]inta HospitalComment on above:Performed By: #### SUSAN, ALEXYS, , 2776-07 #### [facility] ([id number]) [address], [address] [place], [place] [address]Akyrbnwvgjp/100 WBC (Bld)25.2 %NormalProGalion Community Hospital Hospital Comment on above:Performed By: #### ALEXYS DAVIS, , 2776-07 #### [facility] ([id number]) [address], [address] [place], [place] [address]MEW (RBC) [Entitic mass]30.6 kjTxwzsg05-43ErkMwzkki [facility] HospitalComment on above:Performed By: #### CBCALEXYS Watkins, , 2776-07 #### [facility] ([id number]) [address], [address] [place], [place] [address]GIST (RBC) [Mass/Vol]34.3 g/yWLsllrv39-99BwwRmmmxm [facility] HospitalComment on above:Performed By: #### CBCJune, BMP, , 2776-07 #### [facility] ([id number]) [address], [address] [place], [place] [address]AXB (RBC) [Entitic vol]89 mEZnsgfz54-806XdkSroqsx [facility] HospitalComment on above:Performed By: #### CBCA, BMP, , 2776-07 #### [facility] ([id number]) [address], [address] [place], [place] [address]Ifupstllo (Bld) [#/Vol]0.5 10*3/uLNormal0-0.9ProMedica [facility] HospitalComment on above:Performed By: #### CBCA, BMP, , 2776-07 #### [facility] ([id number]) [address], [address] [place], [place] [address]Dnwbiahug/100 WBC (Bld)7.9 %NormalWestern Reserve Hospital Comment on above:Performed By: #### CBCA, BMP, , 2776-07 #### [facility] ([id number]) [address], [address] [place], [place] [address]Ntgaipnnohr/100 WBC (Bld)63.0 %NormalWestern Reserve Hospital Comment on above:Performed By: #### CBCA, BMP, , 2776-07 #### [facility] ([id number]) [address], [address] [place], [place] [address]Pdchpjxj mean volume (Bld) [Entitic vol]7.8 fLNormal7-12 Pro[facility]ica [facility] HospitalComment on above:Performed By: #### CBCA, BMP, , 2776-07 #### [facility] ([id number]) [address], [address] [place], [place] [address]Kehlencjh (Bld) [#/Vol]193 10*3/wQUpsety117-984QwgPxicfz [facility] HospitalComment on above:Performed By: #### CBCA, BMP, , 2776-07 #### [facility] ([id number]) [address], [address] [place], [place] [address]AAB COUNT4.55 X10E12/LNormal4.10-5.70ProGal[facility] Community Hospital Hospital Comment on above:Performed By: #### ALEXYS DAVIS, , 2776-07 #### [facility] ([id number]) [address], [address] [place], [place] [address]ELJ (Bld) [#/Vol]5.9 10*3/uLNormal4.0-11.0ProHolzer Hospitalca [facility]inta HospitalComment on above:Performed By: #### ALEXYS DAVIS, , 2776-07 #### [facility] ([id number]) [address], [address] [place] [address]AIKXACQMFzy 89-44-5724Kshopemlg [Mass/Vol]1.8 mg/dLNormal1.8-2.6 [facility] HospitalComment on above:Performed By: #### ALEXYS DAVIS, , 2776-07 #### [facility] ([id number]) [address], [address] [place], [place] [address]DZOYLEINVIcv 21-00-5418Bgwogpdqe [Mass/Vol]3.2 mg/dLNormal 2.4-4.9ProGalion Community Hospital HospitalComment on above:Performed By: #### ALEXYS DAVIS, , 2776-07 #### [facility] ([id number]) [address], [address] [place], [place] [address]WQUQT METABOLIC PANLon 03-02-7001Bppde gap [Moles/Vol]6 mmol/L Normal5-15ProGal[facility] Hospital HospitalComment on above:Performed By: #### ALEXYS DAVIS, , 2776-07 #### [facility] ([id number]) [address], [address] [place], [place] [address]Idinryz [Mass/Vol]8.2 mg/dLLow8.5-10.5PProMedica [facility] Hospital Comment on above:Performed By: #### ALEXYS DAVIS, , 2776-07 #### [facility] ([id number]) [address], [address] [place], [place] [address]Rlsglxxu [Moles/Vol]104 mmol/LCndlqp43-453MlvNrgkkf [facility] HospitalComment on above:Performed By: #### ALEXYS DAVIS, , 2776-07 #### [facility] ([id number]) [address], [address] [place], [place] [address]GF4 [Moles/Vol]30 mmol/ELackik27-61VwgCswymwProMedica [facility] Hospital Comment on above:Performed By: #### ALEXYS DAVIS, , 2776-07 #### [facility] ([id number]) [address], [address] [place], [place] [address]Mfhueegakp [Mass/Vol]0.90 mg/dLNormal0.60-1.30ProMartin Memorial HospitalComment on above:Result Comment: METHOD TRACEABLE TO IDMS STANDARD Performed By: #### ALEXYS DAVIS, , 2776-07 #### [facility] ([id number]) [address], [address] [place], [place] [address]jEHO (CKD-EPI) NON-RACE DEPENDENT>90Normal>59ProMartin Memorial HospitalComment on above:Result Comment: Reported eGFR is based on the CKD-EPI 2021 equation that does not use a race coefficient.Performed By: #### ALEXYS DAVIS, , 2776-07 #### [facility] ([id number]) [address], [address] [place], [place] [address]Cpovijw [Mass/Vol]88 mg/fEQkavlu94-40UycAkvkxmWestern [facility] Hospital Comment on above:Performed By: #### ALEXYS DAVIS, , 2776-07 #### [facility] ([id number]) [address], [address] [place], [place] [address]Ydlwmtzml [Moles/Vol]3.6 mmol/LNormal3.5-5.0Pro[facility] Hernandez HospitalComment on above:Performed By: #### ALEXYS DAVIS, , 2776-07 #### [facility] ([id number]) [address], [address] [place], [place] [address]Lfmsum [Moles/Vol]140 mmol/OUsgzpd077-892MdhVqrzrv Hernandez HospitalComment on above:Performed By: #### ALEXYS DAVIS, , 2776-07 #### [facility] ([id number]) [address], [address] [place], [place] [address]Inlo nitrogen [Mass/Vol]10 mg/dLNormal5-23ProMedica Hernandez HospitalComment on above:Performed By: #### ALEXYS DAVIS, , 2776-07 #### [facility] ([id number]) [address], [address] [place], [place] [address]XFF AND AUTO DIFFon [id number] BASOPHIL0.0 X10E9/LNormal 0.0-0.2Pro[facility] Hernandez HospitalComment on above:Performed By: #### ALEXYS DAVIS, , 2776-07 #### [facility] ([id number]) [address], [address] [place], [place] [address]VNFGFKEH NEUTROPHIL4.2 X10E9/LNormal1.5-6.6ProMedica Hernandez HospitalComment on above:Performed By: #### ALEXYS DAVIS, , 2776-07 #### [facility] ([id number]) [address], [address] [place], [place] [address]Essregapc/100 WBC (Bld)0.5 %NormalProMedica Hernandez Hospital Comment on above:Performed By: #### CBCA, BMP, , 2776-07 #### [facility] ([id number]) [address] [place], [place] [address]Sjqcqyuxlxi (Bld) [#/Vol]0.2 10*3/uLNormal0.0-0.4ProGalion Community Hospital HospitalComment on above:Performed By: #### CBCA, BMP, , 2776-07 #### [facility] ([id number]) [address], [facility] [address] [place], [place] [address]Umemqyrureo/100 WBC (Bld)2.8 %NormalWestern Reserve Hospital Comment on above:Performed By: #### CBCA, BMP, , 2776-07 #### [facility] ([id number]) [address], [address] [place], [place] [address]Ofgmbbcolce distribution width (RBC) [Ratio]12.9 %Normal 11.5-15.0ProMartin Memorial HospitalComment on above:Performed By: #### CBCJune, BMP, , 2776-07 #### [facility] ([id number]) [address], [address] [place], [place] [address]Mqdumnracj (Bld) [Volume fraction]43.1 %Cnkiob39-75LrcRqmavzMartin Memorial HospitalComment on above:Performed By: #### CBCA, BMP, , 2776-07 #### [facility] ([id number]) [address], [address] [place], [place] [address]Cuwikmuwhb (Bld) [Mass/Vol]14.9 g/rYXaullb61.0-17.0ProMartin Memorial HospitalComment on above:Performed By: #### CBCA, BMP, , 2776-07 #### [facility] ([id number]) [address], [address] [place], [place] [address]Rjjmnlzdumo (Bld) [#/Vol]1.5 10*3/uLNormal1.0-3.5ProMedica Malinta HospitalComment on above:Performed By: #### CBCJnue, BMP, , 2776-07 #### [facility] ([id number]) [address], [address] [place], [place] [address]Euxsxsfcbtj/100 WBC (Bld)23.7 %NormalProGalion Community Hospital Hospital Comment on above:Performed By: #### CBCJune, BMP, , 2776-07 #### [facility] ([id number]) [address], [address] [place], [place] [address]FJJ (RBC) [Entitic mass]30.8 gkAsbsfi30-99HlyQrmavb [facility] HospitalComment on above:Performed By: #### CBCJune, BMP, , 2776-07 #### [facility] ([id number]) [address], [address] [place], [place] [address]QXYI (RBC) [Mass/Vol]34.5 g/fGOghofl62-53MmyHraozk [place] HospitalComment on above:Performed By: #### CBCJune, ALEXYS, , 2776-07 #### [facility] ([id number]) [address], [facility] [address] [place], [place] [address]YUU (RBC) [Entitic vol]89 wTNnbwao37-108XjcGxknqy [facility] HospitalComment on above:Performed By: #### CBCA, BMP, , 2776-07 #### [facility] ([id number]) [address], [address] [place], [place] [address]Cceptvxve (Bld) [#/Vol]0.5 10*3/uLNormal0-0.9ProHolzer Hospitalca [facility]inta HospitalComment on above:Performed By: #### CBCA, BMP, , 2776-07 #### [facility] ([id number]) [address], [address] [place], [place] [address]Kgpelmpgh/100 WBC (Bld)8.0 %NormalWestern Reserve Hospital Comment on above:Performed By: #### CBCA, BMP, , 2776-07 #### [facility] ([id number]) [address], [address] [place], [place] [address]Hmejomagztp/100 WBC (Bld)65.0 %NormalWestern Reserve Hospital Comment on above:Performed By: #### CBCA, BMP, , 2776-07 #### [facility] ([id number]) [address], [address] [place], [place] [address]Mnrigswx mean volume (Bld) [Entitic vol]7.8 fLNormal7-12 ProMedica [facility]ittman Medical CenterComment on above:Performed By: #### CBCA, BMP, , 2776-07 #### [facility] ([id number]) [address], [address] [place], [place] [address]Pkjlmwzmn (Bld) [#/Vol]193 10*3/gGCalgfr743-533CceThznbv [facility]itt[facility] Medical CenterComment on above:Performed By: #### CBCA, BMP, , 2776-07 #### [facility] ([id number]) [address], [address] [place], [place] [address]BNY COUNT4.83 X10E12/LNormal4.10-5.70ProMartin Memorial Hospital Comment on above:Performed By: #### CBCA, BMP, , 2776-07 #### [facility] ([id number]) [address], [address] [place], [place] [address]LTW (Bld) [#/Vol]6.4 10*3/uLNormal4.0-11.0ProMedica [facility] Rittman Medical CenterComment on above:Performed By: #### CBCA, [facility], [address]-8, 2777-1 #### [facility] ([id number]) [address] [facility] [place], [place] [address]Zrebppcf Blood Count Auto Diffon 25-39-3553Womklstaf (Bld) [#/Vol]0.0 10*3/uLNormal0.0-0.2The [facility] Physician GroupComment on above: Result Comment: PERFORMED BY: [place] [address] PATHOLOGIST ECHOCARDIOGRAPHY RADIOLOGY TECHNOLOGIST HIREN KAPLAN M.D.Performed By: #### CBC, CMP #### [place] [address] USABasophils/100 WBC (Bld)0.6 %Normal.The [facility] Physician GroupComment on above:Performed By: #### CBC, CMP #### [place] [address] USAEosinophils (Bld) [#/Vol]0.2 10*3/uLNormal0.0-0.45The [facility] Physician GroupComment on above:Performed By: #### CBC, CMP #### [place] [address] USAEosinophils/100 WBC (Bld)3.0 %Normal.The [facility] Physician GroupComment on above:Performed By: #### CBC, CMP #### [place] [id number] USAErythrocyte distribution width (RBC) [Ratio]12.9 %Normal 12.0-14.8The [facility] Physician GroupComment on above:Performed By: #### CBC, CMP #### [place] [address] USAHematocrit (Bld) [Volume fraction]43.0 %Nbhnwo48.8-50.0The [facility] Physician GroupComment on above:Performed By: #### CBC, CMP #### [place] [address] USAHemoglobin (Bld) [Mass/Vol]14.8 g/qPFivqpj31.0-17.0The [facility] Physician GroupComment on above:Performed By: #### CBC, CMP #### [place] [address] USALymphocytes (Bld) [#/Vol]1.8 10*3/uLNormal1.00-4.8The [facility] Physician GroupComment on above:Performed By: #### CBC, CMP #### [place] [address] USALymphocytes/100 WBC (Bld)26.4 %Normal.The [facility] Physician GroupComment on above:Performed By: #### CBC, CMP #### [place] [address] USAMCH (RBC) [Entitic mass]30.8 rkZhjzcz84.5-35.2The [facility] Physician GroupComment on above:Performed By: #### CBC, CMP #### [place] [address] USAMCV (RBC) [Entitic vol]89.5 lXWokmkc25.5-101The [facility] Physician GroupComment on above:Performed By: #### CBC, CMP #### [place] [address] USAMean Corpuscular HGB Conc34.4 g/fKEzkbya47.5-35.6The [facility] Physician GroupComment on above:Performed By: #### CBC, CMP #### [place] [address] USAMonocytes (Bld) [#/Vol]0.6 10*3/uLNormal0.0-0.8The [facility] Physician GroupComment on above:Performed By: #### CBC, CMP #### [place] [address] USAMonocytes/100 WBC (Bld)18.12 %Normal0.00-20.00The [facility] Physician GroupComment on above:Performed By: #### CBC, CMP #### [facility] [address] [place] [address] USAMonocytes/100 WBC (Bld)8.8 %Normal.The [facility] Physician GroupComment on above:Performed By: #### CBC, CMP #### [facility] [address] [place] [address] USANeutrophils (Bld) [#/Vol]4.1 10*3/uLNormal1.8-7.7The [facility] Physician GroupComment on above:Performed By: #### CBC, CMP #### [facility] [address] [place] [id number] USANeutrophils/100 WBC (Bld)61.2 %Normal.The [facility] Physician GroupComment on above:Performed By: #### CBC, CMP #### [facility] [address] [place] [address] USANRBC%0.1 /100{WBC}Normal0-0.5The [facility] Comment on above:Performed By: #### CBC, CMP #### [facility] [address] [place] [address] USAPlatelet mean volume (Bld) [Entitic vol]7.8 fLNormal 6.6-10.1The [facility] Physician GroupComment on above:Performed By: #### CBC, CMP #### [facility] [address] [place] [address] USAPlatelets (Bld) [#/Vol]229 10*3/lSEpvyad237-687Jop [facility] Physician GroupComment on above:Performed By: #### CBC, CMP #### [facility] [address] [place] [address] USARBC (Bld) [#/Vol]4.80 10*6/uLNormal3.90-5.60The [facility] Physician GroupComment on above:Performed By: #### CBC, CMP #### [facility] [address] [place] [address] USAWBC (Bld) [#/Vol]6.7 10*3/uLNormal4.1-10.5The [facility] Physician GroupComment on above:Performed By: #### CBC, CMP #### [facility] [address] [place] [address] USAComprehensive Metabolic Panelon 40-19-6083Yxliuuz [Mass/Vol]3.7 g/dLNormal3.5-5.7The [facility] Physician GroupComment on above: Performed By: #### CBC, CMP #### [place] [address] USAAlbumin/Globulin [Mass ratio]1.4 {ratio}NormalThe [facility] Physician GroupComment on above:Performed By: #### CBC, CMP #### [place] [address] USAALP [Catalytic activity/Vol]89 U/HCqzrdy34-515Qpz [facility] Physician GroupComment on above:Performed By: #### CBC, CMP #### [place] [address] USAALT [Catalytic activity/Vol]21 U/LNormal7-52The [facility] Physician GroupComment on above:Performed By: #### CBC, CMP #### [place] [address] USAAnion gap [Moles/Vol]8.7 mmol/LNormal6.0-15.0The [facility] Physician GroupComment on above:Performed By: #### CBC, CMP #### [place] [address] USAAST [Catalytic activity/Vol]20 U/GTbbmrv71-08Xtf [facility] Physician GroupComment on above:Performed By: #### CBC, CMP #### [place] [address] USABilirubin [Mass/Vol]0.5 mg/dLNormal0.3-1.0The [facility] Physician GroupComment on above:Performed By: #### CBC, CMP #### [place] [address] USACalcium [Mass/Vol]8.6 mg/dLNormal8.6-10.3The [facility] Physician GroupComment on above:Performed By: #### CBC, CMP #### [facility] [address] [place] [address] USAChloride [Moles/Vol]105 mmol/MElzvky49-825Vsa [facility] Physician GroupComment on above:Performed By: #### CBC, CMP #### [facility] [address] [place] [address] USACO2 [Moles/Vol]26.9 mmol/WWmepej45.0-31.0The [facility] Physician GroupComment on above:Performed By: #### CBC, CMP #### [facility] [address] [place] [address] USACreatinine [Mass/Vol]0.91 mg/dLNormal0.70-1.30The [facility] Physician GroupComment on above:Performed By: #### CBC, CMP #### [place] [address] USACreatinine Clr Calc Yjvivumo773.55NormTGH Spring Hill Physician GroupComment on above:Result Comment: PERFORMED BY: [place] [address] PATHOLOGIST ECHOCARDIOGRAPHY RADIOLOGY TECHNOLOGIST HIREN KAPLAN M.D.Performed By: #### CBC, CMP #### [facility] [address] [place] [address] USAGFR/1.73 sq M.predicted MDRD (S/P/Bld) [Vol rate/Area] mL/min/{1.73_m2}NormalThe [facility] Physician GroupComment on above:Performed By: #### CBC, CMP #### [facility] [address] [place] [address] USAGlobulin (S) [Mass/Vol]2.6 g/dLHCA Florida Blake Hospital Physician GroupComment on above:Performed By: #### CBC, CMP #### [facility] [address] [place] [address] USAGlucose [Mass/Vol]101 mg/kZSjyo08-534Kyq [facility] Physician GroupComment on above:Result Comment: Random Glucose Reference Range is dependent on time and content of last meal. Glucose of more than 200 mg/dL in a nonstressed, ambulatory subject supports the diagnosis of Diabetes Mellitus. ADA recommended reference rangePerformed By: #### CBC, CMP #### [place] [address] USAPotassium [Moles/Vol]3.6 mmol/LNormal3.5-5.1The [facility] Physician GroupComment on above:Performed By: #### CBC, CMP #### [place] [address] USAProtein [Mass/Vol]6.3 g/dLLow6.4-8.9The [facility] Physician GroupComment on above:Performed By: #### CBC, CMP #### [place] [address] USASodium [Moles/Vol]137 mmol/XDfpcka322-583Jvq [facility] Physician GroupComment on above:Performed By: #### CBC, CMP #### [place] [address] USAUrea nitrogen [Mass/Vol]14 mg/dLNormal7-25The [facility] Physician [facility] Health NatchezComment on above:Performed By: #### CBC, CMP #### [place] [address] USADipstick and Microscopicon 80-86-7852Papboragyg (U)Turbid Critically abnormalClearThe [facility] Physician GroupComment on above:Order Comment: Name Collection Type:: Clean-Voided MidstreamPerformed By: #### ADDONUAPLUS, CUU #### [place] [address] USABacteria,UrineNone SeenNormalNone SeenThe [facility] Physician GroupComment on above:Order Comment: Name Collection Type:: Clean- Voided MidstreamResult Comment: PERFORMED BY: [place] [address] PATHOLOGIST ECHOCARDIOGRAPHY RADIOLOGY TECHNOLOGIST HIREN KAPLAN M.D.Performed By: #### ADDJULIOCESARUAPLUS, CUU #### [place] [address] USABilirubin,UrineNormalNegativeAdventhealth Fish Memorial Physician Group Comment on above:Order Comment: Name Collection Type:: Clean-Voided Midstream Result Comment: Unable to obtain accurate result due to color interference. Performed By: #### ADDONUAPLUS, CUU #### [facility] [address] [place] [address] USAColor (U)RedCritically abnormalYellowThe [facility] Hospital Physician GroupComment on above:Order Comment: Name Collection Type:: Clean- Voided MidstreamPerformed By: #### ADDONUAPLUS, CUU #### [address] [address] USAGlucose Ql (U)NormalNormalThe [facility] Comment on above:Order Comment: Name Collection Type:: Clean-Voided Midstream Result Comment: Unable to obtain accurate result due to color interference. Performed By: #### ADDONUAPLUS, CUU #### [address] [address] USAKetones Ql (U)NormalNegativeAdventhealth Fish Memorial Physician Group Comment on above:Order Comment: Name Collection Type:: Clean-Voided Midstream Result Comment: Unable to obtain accurate result due to color interference. Performed By: #### ADDONUAPLUS, CUU #### [address] [address] USALeukocyte esterase Test strip Ql (U)NormalNegativeAdventhealth Fish Memorial Physician GroupComment on above:Order Comment: Name Collection Type:: Clean-Voided MidstreamResult Comment: Unable to obtain accurate result due to color interference.Performed By: #### ADDONUAPLUS, CUU #### [address] [address] USANitrite,UrineNormalNegLee Memorial Hospital [facility] Comment on above:Order Comment: Name Collection Type:: Clean-Voided Midstream Result Comment: Unable to obtain accurate result due to color interference. Performed By: #### ADDONUAPLUS, CUU #### [address] [address] USAOccult Blood,UrineNormalNegLee Memorial Hospital Physician GroupComment on above:Order Comment: Name Collection Type:: Clean-Voided MidstreamResult Comment: Unable to obtain accurate result due to color interference.Performed By: #### ADDONUAPLUS, CUU #### [place] [address] USApH,UrineNormal5.0-9.0The [facility] Physician GroupComment on above:Order Comment: Name Collection Type:: Clean-Voided MidstreamResult Comment: Unable to obtain accurate result due to color interference.Performed By: #### ADDONUAPLUS, CUU #### [place] [address] USAProtein,UrineNormalNegativeThe [facility] Comment on above:Order Comment: Name Collection Type:: Clean-Voided Midstream Result Comment: Unable to obtain accurate result due to color interference. Performed By: #### ADDONUAPLUS, CUU #### [place] [address] USARBC,UrineInnumerableHigh0-4The [facility] Comment on above:Order Comment: Name Collection Type:: Clean-Voided Midstream Performed By: #### ADDONUAPLUS, CUU #### [place] [address] USASpecificy [place],Urine1.624Qeqkyo4.001-1.030The [facility] Physician GroupComment on above:Order Comment: Name Collection Type:: Clean- Voided MidstreamPerformed By: #### ADDONUAPLUS, CUU #### [place] [address] USASquamous Epithelial Cell,UrineNone SeenNormal0-2The [facility] Physician GroupComment on above:Order Comment: Name Collection Type:: Clean-Voided MidstreamPerformed By: #### ADDONUAPLUS, CUU #### [place] [address] USAUrobilinogen,UrineNormalNormalThe [facility] Physician GroupComment on above:Order Comment: Name Collection Type:: Clean-Voided MidstreamResult Comment: Unable to obtain accurate result due to color interference.Performed By: #### ADDONUAPLUS, CUU #### [facility] [address] [place] [id number] USAWBC,Bvqde0-4Cshmvf8-1Rfa [facility] Physician GroupComment on above:Order Comment: Name Collection Type:: Clean-Voided MidstreamPerformed By: #### ADDONUAPLUS, CUU #### [place] [id number] USAMAGNESIUMon 86-08-5943Gpegemniv [Mass/Vol]1.9 mg/dLNormal 1.8-2.6ProMartin Memorial HospitalComment on above:Performed By: #### CBCA, BMP, [address]147-1, 2777-1 #### [facility] ([id number]) [address] [place], [place] [address]OIELAAGOBDos 49-80-9847Lzycwzjcn [Mass/Vol]3.3 mg/dLNormal 2.4-4.9ProMartin Memorial HospitalComment on above:Performed By: #### CBCA, BMP, 26191-9, 2777-1 #### [facility] ([id number]) [address] [facility] [address] [place], [place] [address]Lsagalu Thromboplastin Timeon 20-54-6737yFRB Coag (Bld) [Time] 31.9 wOegbru38.1-36.5The [facility] Physician GroupComment on above:Order Comment: REDRAW: PRIOR SAMPLE QNSResult Comment: A hematocrit value greater than 55% may lead to inaccurate results in coagulation testing. Patients having hematocrit values >55% require a special collection tube for coagulation studies. Please contact the laboratory at [phone] for redraw instructions. PERFORMED BY: [address] [address] PATHOLOGIST ECHOCARDIOGRAPHY RADIOLOGY TECHNOLOGIST HIREN KAPLAN M.D.Performed By: #### PTT, PT #### [place] [id number] USAProthrombin Time INRon 11-18-7377JMT Coag (PPP) [Relative time]1.0 {INR}NormalThe [facility] Physician GroupComment on above:Order Comment: REDRAW: PRIOR SAMPLE QNSResult Comment: INR Therapeutic Range A) Pre- and [...] patients with mechanical heart valves: 3 - 4.5Performed By: #### PTT, PT #### [place] [address] USAPT Coag (PPP) [Time]11.9 sNormal9.0-12.9The [facility] Physician GroupComment on above:Order Comment: REDRAW: PRIOR SAMPLE QNSResult Comment: A hematocrit value greater than 55% may lead to inaccurate results in coagulation testing. Patients having hematocrit values >55% require a special collection tube for coagulation studies. Please contact the laboratory at [phone] for redraw instructions.Performed By: #### PTT, PT #### [facility] [address] [place], [place] [id number] USAUrine Cultureon 76-68-2827Gsjmpqbj identified Cx Nom (U)No Growth 2 Days PERFORMED BY: [place] [address] PATHOLOGIST ECHOCARDIOGRAPHY RADIOLOGY TECHNOLOGIST HIREN KAPLAN M.D.NormalThe [facility] Physician GroupComment on above:Performed By: #### ADDONUAPLUS, CUU #### [place] [address] USAReference Lab Test IDon [id number] FOR BLADDER CANCERSEE COMMENTS 11/21/2023 08:19 AMNormalProMedica Summa Health [facility]sworth - Rittman Medical CenterComment on above:Result Comment: NOTE Test Result Flag Unit RefValue UroVysion (R) [...] and a locus specific probe for 9p21 ([employer] [place], [place]). This test has been modified from the in flight crew member's instructions. Its performance characteristics were determined by [facility] in a manner consistent with CLIA requirements. This test has not been cleared or approved by the U.S. Food and Drug Administration. Reason for Referral Evaluate for urothelial carcinoma. Specimen Varies Source Urine, NOS Released By Adrianna Proctor M.D. Test Performed by: [facility] [place] [address] Carcass Splitter: Bear Mares M.D. Ph.D.; CLIA# [id number] CULTUREon 63-19-1477Kymirugf identified Cx Nom (U)CULTURE RESULTS NO GROWTH AT <1000 CFU/mLNormalProMedica [facility] on above: Performed By: #### 630-4 #### [facility] ([id number]) [address] [facility], [address] [place], [place] [address]MPO TEST SENT OUTon 15-37-2547XNAI TO REF LAB09/18/2022[facility] on above:Performed By: #### BOX #### [facility] [address] [place], [place] [address] Dr. Pablo BlanchardAspartate aminotransferase [Enzymatic activity/volume] in Serum or PlasmaOrdered By: Hernandez Lares on 39-15-5879IFY [Catalytic activity/Vol]22 U/V38-08ZqozmgsneBlanchard Valley Health SystemAutomated erythrocytes count in urine sediment (number/area)Ordered By: Hernandez Lares on 73-27-6052SCM Auto (Urine sed) [#/Area]3-4 [HPF]0-4FMercy Health St. Joseph Warren HospitalAutomated leukocytes count in urine sediment (number/area)Ordered By: Hernandez Lares on 32-98-0318RMF Auto (Urine sed) [#/Area]3-4 [HPF]0-4FMercy Health St. Joseph Warren HospitalBasophils Auto (Bld) [#/Vol]Ordered By: Hernandez Lares on 61-65-3814Mqrkvblob (Bld) [#/Vol] 0.1 10*3/uL0.0-0.2FMercy Health St. Joseph Warren HospitalBasophils/100 WBC Auto (Bld) Ordered By: Hernandez Lares on 37-31-8392Ticwwpiey/100 WBC (Bld)0.7 %.Bl[facility] Health SystemBilirubin Test strip Ql (U)Ordered By: Hernandez Lares on 89-11-7613Yhjwdqjpl Ql (U)NegativeNegativeBlanchard Valley Health SystemBody fluid albumin measurement (mass/volume)Ordered By: Hernandez Lares on 09-04-2022 Albumin (Body fld) [Mass/Vol]3.6 g/dL3.2-5.5FMercy Health St. Joseph Warren Hospital COVID CepheidOrdered By: Hernandez Lares on 62-69-9688NMIQ-CoV-2 (COVID-19) Ab IA QlNegativeNegWyandot Memorial HospitalComment on above:This is a duplicate CepVirdiaid Xpert Xpress CoV-2/Flu/RSV Plus RNA by RT-PCR result to be used for statistical tracking purpose only.SARS-CoV-2 (COVID-19) RNA NANCIE+probe Ql (Unsp spec)[facility] Medical CenterARS-CoV-2 (COVID-19) RNA NANCIE+probe Ql (Unsp spec)[facility] SystemColor Auto (U)Ordered By: Hernandez Lares on 42-08-0088Uxdat (U)YellowYellowBlanchard Valley Health SystemCreatine kinase [Enzymatic activity/volume] in Serum or PlasmaOrdered By: Hernandez Lares on 28-30-2899JD [Catalytic activity/Vol]72 U/G03-814WtoqkjcztBlanchard Valley Health SystemCreatine kinase.MB [Mass/volume] in Serum or Plasma Ordered By: Hernandez Lares on 95-09-5233BJ.MB [Mass/Vol]0.7 ng/mL0.6-6.3FMercy Health St. Joseph Warren HospitalCreatinine and Glomerular filtration rate.predicted panel (S/P/Bld)Ordered By: Hernandez Lares on 29-85-6266Cpruygadwd [Mass/Vol]1.01 mg/dL0.64-1.27Blanch[facility] Valley Health SystemEosinophils Auto (Bld) [#/Vol] Ordered By: Hernandez Lares on 35-14-4206Qynbmgvtngv (Bld) [#/Vol]0.2 10*3/uL 0.0-0.45Bl[facility] Valley Health SystemEosinophils/100 WBC Auto (Bld)Ordered By: Hernandez Lares on 82-13-8482Xdcmdrrwlnj/100 WBC (Bld)2.5 %.[facility] Health SystemErythrocyte distribution width Auto (RBC) [Ratio]Ordered By: Hernandez Lares on 04-50-8049Reqcifcuena distribution width (RBC) [Ratio]13.1 % 12.0-14.8Bl[facility] Health SystemEstimated glomerular filtration rate (GFR) non- AmericanOrdered By: Hernandez Lares on 13-92-0313NNJ/1.73 sq M.predicted among non-blacks MDRD (S/P/Bld) [Vol rate/Area]> 60 mL/MinBlanchard Valley Health SystemGlobulin Calc (S) [Mass/Vol]Ordered By: Hernandez Lares on 79-03-8705Drtxlfqn (S) [Mass/Vol]2.9 g/dLBlanchard Valley Health System Hematocrit Auto (Bld) [Volume fraction]Ordered By: Hernandez Lares on 09-04-2022 Hematocrit (Bld) [Volume fraction]45.8 %38.8-50.0Bl[facility] Health SystemHemoglobin [Mass/volume] in BloodOrdered By: Hernandez Lares on 09-04-2022 Hemoglobin (Bld) [Mass/Vol]15.6 g/dL13.0-17.0[facility] Ketones Auto test strip (U) [Mass/Vol]Ordered By: Hernandez Lares on 09-04-2022 Ketones (U) [Mass/Vol]TraceNegativeBlanchard Valley Health SystemLaboratory - UrinalysisOrdered By: Hernandez Lares on 37-92-7017Grrrwzz casts LM Ql (Urine sed)None seen [LPF]0-8Bl[facility] Health SystemLeukocytes [#/volume] corrected for nucleated erythrocytes in Blood by Automated counOrdered By: Hernandez Lares on 82-34-8218HJC corrected for nucl RBC Auto (Bld) [#/Vol]8.2 10*3/uL4.1-10.5FMercy Health St. Joseph Warren HospitalLymphocytes Auto (Bld) [#/Vol] Ordered By: Hernandez Lares on 92-30-1872Kccsxtomonw (Bld) [#/Vol]2.2 10*3/uL 1.00-4.8Blanchard Valley Health SystemLymphocytes/100 WBC Auto (Bld)Ordered By: Hernandez Lares on 82-49-7162Gozfmjnnblo/100 WBC (Bld)26.2 %.[facility] HospitalH Auto (RBC) [Entitic mass]Ordered By: Hernandez Lares on 75-32-6097WLL (RBC) [Entitic mass]30.7 pg27.5-35.2FFisher-Titus Medical CenterHC Auto (RBC) [Mass/Vol]Ordered By: Hernandez Lares on 95-90-5803ELQE (RBC) [Mass/Vol]34.1 g/dL32.5-35.6FMercy Health St. Joseph Warren HospitalMCV Auto (RBC) [Entitic vol]Ordered By: Hernandez Lares on 69-36-7258TAF (RBC) [Entitic vol]89.9 fL83.5-101[facility] SystemMonocyte distribution width [Entitic volume] in Blood by AutomatedOrdered By: Hernandez Lares on 09-04-2022 Monocyte distribution width Auto (Bld) [Entitic vol]16.89 %0.00-20.00[facility] SystemMonocytes Auto (Bld) [#/Vol]Ordered By: Hernandez aLres on 10-03-7017Fjerpxdyc (Bld) [#/Vol]0.7 10*3/uL0.0-0.8[facility] SystemMonocytes/100 WBC Auto (Bld)Ordered By: Hernandez Lares on 09-04-2022 Monocytes/100 WBC (Bld)8.1 %.[facility] SystemNeutrophils Auto (Bld) [#/Vol]Ordered By: Hernandez Lares on 34-97-4380Pzuqdjoxfko (Bld) [#/Vol]5.1 10*3/uL1.8-7.7FMercy Health St. Joseph Warren HospitalNeutrophils/100 WBC Auto (Bld) Ordered By: Hernandez Lares on 74-76-1732Mbknhcsrbul/100 WBC (Bld)62.5 %.[facility] SystemNitrite Test strip Ql (U)Ordered By: Hernandez Lares on 83-95-3561Byzjzok Ql (U)NegativeNegativeBlanchard Valley Health SystemNo Panel InformationOrdered By: Hernandez Lares on 46-89-5096Jfaqdlobm GFR ()> 60 mL/MinBlanchard Valley Health SystemComment on above:GFR estimated reference range: According to KDOQI guidelines, <60 ml/min/1.73m2 is sufficient todiagnose a patient with chronic kidney disease.Pharmacy Creatinine Clearance (Eezh321.51[facility] SystemNucleated erythrocytes [Presence] in Blood by Automated countOrdered By: Hernandez Lares on 09-04-2022 Nucleated RBC Auto Ql (Bld)0.1 /100{WBC}0-0.5FMercy Health St. Joseph Warren Hospital Platelet mean volume Auto (Bld) [Entitic vol]Ordered By: Hernandez Lares on 43-59-3782Enkmqvts mean volume (Bld) [Entitic vol]7.8 fL6.6-10.1FMercy Health St. Joseph Warren HospitalPlatelets Auto (Bld) [#/Vol]Ordered By: Hernandez Lares on 87-41-9729Xinzupltg (Bld) [#/Vol]224 10*3/oY268-009ZsqibrutxBlanchard Valley Health SystemProtein Auto test strip (U) [Mass/Vol]Ordered By: Hernandez Lares on 99-96-8536Uqmflxm (U) [Mass/Vol]100 mg/dLNegativeBlanchard Valley Health SystemProtein [Mass/volume] in Serum or PlasmaOrdered By: Hernandez Lares on 89-27-1448Irdrtia [Mass/Vol]6.5 g/dL6.1-7.9[facility] SystemRBC Auto (Bld) [#/Vol]Ordered By: Hernandez Lares on 57-40-7671NNF (Bld) [#/Vol]5.09 10*6/uL3.90-5.60[facility] Medical Centererum or plasma alanine aminotransferase measurement without P-5'-P (enzymatic activiOrdered By: Hernandez Lares on 18-20-2297AQU No additional P-5'-P [Catalytic activity/Vol]26 U/L10-[address] [facility] Medical Centererum or plasma albumin/globulin mass ratio Ordered By: Hernandez Lares on 37-86-3124Hkwokio/Globulin [Mass ratio]1.2 {ratio} [facility] Medical Centererum or plasma alkaline phosphatase measurement (enzymatic activity/volume)Ordered By: Hernandez Lares on 09-04-2022 ALP [Catalytic activity/Vol]85 U/H36-25UqdiyrxijMercy Health St. Rita's Medical Centererum or plasma anion gap determinationOrdered By: Hernandez Lares on 52-67-7977Rvcgv gap [Moles/Vol]15.6 mmol/L6.0-15.0[facility] Medical Centererum or plasma calcium measurement (mass/volume)Ordered By: Hernandez Lares on 39-19-2955Fvoqmts [Mass/Vol]8.8 mg/dL8.2-10.2FSuburban Community Hospital & Brentwood Hospitalerum or plasma chloride measurement (moles/volume)Ordered By: Hernandez Lares on 09-04-2022 Chloride [Moles/Vol]101 mmol/R34-092IbythmivtMercy Health St. Rita's Medical Centererum or plasma creatine kinase MB (CKMB)/total creatine kinase (CK) ratio by calcula Ordered By: Hernandez Lares on 13-53-0331WC.MB Calc [Catalytic fraction]0.9 % 0.00-2.50[facility] Medical Centererum or plasma glucose measurement (mass/volume)Ordered By: Hernandez Lares on 58-89-9456Ctxakso [Mass/Vol]99 mg/dL 70-100[facility] SystemComment on above:ADA recommended reference rangeRandom Glucose Reference Range is dependent on time and content of last meal. Glucose of more than 200 mg/dL in a nonstressed, ambulatory subject supports the diagnosisof Diabetes Mellitus.Serum or plasma potassium measurement (moles/volume)Ordered By: Hernandez Lares on 06-08-0749Rrjqszvus [Moles/Vol]4.0 mmol/L3.5-5.1FSuburban Community Hospital & Brentwood Hospitalerum or plasma sodium measurement (moles/volume)Ordered By: Hernandez Lares on 23-22-1925Sidayl [Moles/Vol]138 mmol/A766-291OxoyvbuflMercy Health St. Rita's Medical Centererum or plasma total bilirubin measurement (mass/volume)Ordered By: Hernandez Lares on 09-04-2022 Bilirubin [Mass/Vol]0.6 mg/dL0.3-1.2FSuburban Community Hospital & Brentwood Hospitalerum or plasma total carbon dioxide measurement (moles/volume)Ordered By: Hernandez Lares on 63-51-1655VM0 [Moles/Vol]25.4 mmol/L22.0-30.0[facility] Medical Centererum or plasma urea nitrogen measurement (mass/volume)Ordered By: Hernandez Lares on 47-24-6265Phdu nitrogen [Mass/Vol]13 mg/dL9[facility] St. [facility]'s Medical Centerpecific gravity Auto test strip (U) [Rel density]Ordered By: Hernandez Lares on 15-15-9354Oiqeumnl gravity (U) [Rel density]1.0271.001-1.[address] [facility] Medical Centerpermatozoa detection in urine sediment by light microscopyOrdered By: Hernandez Lares on 06-32-4294Fgbzqnuskwi LM Ql (Urine sed)3-4 [HPF]0-[facility] & Brentwood Hospitalquamous epithelial cells detection in urine sediment by light microscopyOrdered By: Hernandez Lares on 61-27-9256Jxxsvzfrsv cells.squamous LM Ql (Urine sed)None seen [HPF]0-[facility] HospitalTroponin I.cardiac [Mass/volume] in Serum or Plasma by High sensitivity methodOrdered By: Hernandez Lares on 24-56-3741Okdmzlcz I.cardiac High sensitivity method [Mass/Vol]< 3 pg/mL0[facility] SystemUrine bacteria detection by automated methodOrdered By: Hernandez Lares on 10-31-2043Ycrzgkhl Auto Ql (U)None seenNone SeenBlanchard Valley Health SystemUrine clarity by refractometry automatedOrdered By: Hernandez Lares on 86-60-9003Kocyndv Refractometry automated (U)ClearClearFMercy Health St. Joseph Warren HospitalUrine glucose measurement by automated test strip (mass/volume) Ordered By: Hernandez Lares on 96-73-2514Ajsbclk Auto test strip (U) [Mass/Vol] Normal mg/dLVan Wert County HospitalUrine hemoglobin detection by automated test stripOrdered By: Hernandez Lares on 07-88-7941Gtqxrmdgby Auto test strip Ql (U)NegativeNegWyandot Memorial HospitalUrine leukocyte esterase detection by automated test stripOrdered By: Hernandez Lares on 81-06-8975Jpkmtlyje esterase Auto test strip Ql (U)NegativeNegWyandot Memorial HospitalUrobilinogen Auto test strip (U) [Mass/Vol]Ordered By: Hernandez Lares on 45-06-1541Qrevkwbyduhq (U) [Mass/Vol]Normal mg/dLMercy Health St. Elizabeth Boardman HospitalWBC Auto (Bld) [#/Vol]Ordered By: Hernandez Lares on 13-58-8361BIG (Bld) [#/Vol]8.2 10*3/uL4.1-10.5FMercy Health St. Joseph Warren HospitalpH Auto test strip (U)Ordered By: Hernandez Lares on 50-07-3761pQ (U)6.0 [pH]5.0-9.0[facility] SystemCBC AUTO DIFFon 96-09-8962DJGI #0.0 103/ulNormal0.0-0.1The [facility] GlenbeighComment on above:Performed By: #### CBC #### [facility] [address] [address] [address] Pablo Smallwoodsophils/100 WBC (Bld)0.4 %Normal0.2-2.0The [facility] Comment on above:Performed By: #### CBC #### [facility] [address] [address] [address] Pablo Larry #0.2 103/ulNormal0.0-0.7The [facility] GlenbeighComment on above: Performed By: #### CBC #### [facility] [address] [address] [address] Yilan ChangEosinophils/100 WBC (Bld)2.5 %Normal0.9-7.0The [facility] Comment on above:Performed By: #### CBC #### [facility] [address] [place] [address] Dr. Pablo Washingtonrythrocyte distribution width (RBC) [Ratio]12.2 %Osapub11.0-15.0 The [facility] GlenbeighComment on above:Performed By: #### CBC #### [facility] [address] [place] [address] Dr. Pablo BlanchardHematocrit (Bld) [Volume fraction]49.2 %Zddpzt57.0-54.0The [facility] GlenbeighComment on above:Performed By: #### CBC #### [facility] [address] [place] [address] Dr. Pablo BlancahrdHemoglobin (Bld) [Mass/Vol]16.1 g/pCPxuvis88.0-18.0The [facility] GlenbeighComment on above:Performed By: #### CBC #### [facility] [address] [place] [address] Dr. Pablo BlanchardIG #0.03 10e3/ulNormal0.00-0.03The [facility] GlenbeighComment on above:Performed By: #### CBC #### [facility] [address] [place] [address] Dr. Pablo BlanchardIG %0.4 %Normal0.0-0.5The [facility] GlenbeighComment on above: Performed By: #### CBC #### [facility] [address] [place] [address] Dr. Pablo MachadoMPH #1.5 103/ulNormal1.2-3.8The [facility] GlenbeighComment on above:Performed By: #### CBC #### [facility] [address] [place] [address] Dr. Pablo Machadomphocytes/100 WBC (Bld)20.1 %Critically low20.5-60.0The [facility] GlenbeighComment on above:Performed By: #### CBC #### [facility] [address] [place] [address] Dr. Pablo Sebastian DIFF REQNONormalThe [facility] GlenbeighComment on above: Performed By: #### CBC #### [facility] [address] [place] [address] Dr. Pablo Marcos (RBC) [Entitic mass]30.4 gyYkfsaq74.9-34.0The [facility] GlenbeighComment on above:Performed By: #### CBC #### [facility] [address] [place] [address] Dr. Pablo Marcos (RBC) [Mass/Vol]32.7 g/sYJqeuuu00.9-35.2The [facility] GlenbeighComment on above:Performed By: #### CBC #### [facility] [address] [place] [address] Dr. Pablo Marcos (RBC) [Entitic vol]92.8 uEMzneap68.0-94.0The [facility] GlenbeighComment on above:Performed By: #### CBC #### [facility] [address] [place] [address] Dr. Pablo Chiang #0.6 103/ulNormal0.3-0.8The [facility] GlenbeighComment on above:Performed By: #### CBC #### [facility] [address] [place] [address] Dr. Pablo Burnhamocytes/100 WBC (Bld)8.1 %Normal1.7-12.0The [facility] Comment on above:Performed By: #### CBC #### [facility] [address] [place] [address] Dr. Pablo Plata #5.1 103/ulNormal1.4-6.5The [facility] GlenbeighComment on above:Performed By: #### CBC #### [facility] [address] [place] [address] Dr. Pablo Palacioutrophils/100 WBC (Bld)68.5 %Gnvrng31.0-75.0The [facility] GlenbeighComment on above:Performed By: #### CBC #### [facility] [address] [address] [address] Pablo BlanchardPlatelet mean volume (Bld) [Entitic vol]9.2 fLCritically low 9.5-13.5The [facility] GlenbeighComment on above:Performed By: #### CBC #### [facility] [address] [address] [address] Pablo BlanchradPLT231 103/jrNocbdh191-503Uya [facility] GlenbeighComment on above: Performed By: #### CBC #### [facility] [address] [address] [address] Pablo BlanchardRBC5.30 106/ulNormal4.70-6.10The [facility] GlenbeighComment on above:Performed By: #### CBC #### [facility] [address] [place] [address] Dr. Pablo BlanchardWBC7.5 103/ulNormal4.0-11.0The [facility] GlenbeighComment on above: Performed By: #### CBC #### [facility] [address] [place] [address] Dr. Pablo BlanchardGLYCOHEMOGLOBIN A1Con 16-08-9402EQY RECOMMENDATIONSEE [facility] HospitalCommymichigan medical center on above:Result Comment: ADA RECOMMENDED LIMIT 4.0 - 6.0 ADA THERAPEUTIC TARGET < 7.0 ACTION SUGGESTED > 7.0Performed By: #### A1C #### [facility] [address] [address] [address] Pablo BlanchardGlucose [Mass/Vol]97 mg/dLNoTrumbull Memorial Hospital on above:Performed By: #### A1C #### [facility] [address] [place] [address] Dr. Pablo BlanchardHbA1c (Bld) [Mass fraction]5.0 %Normal4.5-6.2The [facility] on above:Performed By: #### A1C #### [facility] [address] [place] [address] Dr. Pablo BlanchardLIPID PROFILEon [id number]-HDL RATIO NORMSEE [facility] on above:Result Comment: 3.3 - 4.4 LOW RISK 4.4 - 7.1 AVERAGE RISK 7.1 - 11.0 MODERATE RISK >11.0 HIGH RISKPerformed By: #### LIPID, CMP #### [facility] [address] [address] [address] Pablo BlanchardCholesterol [Mass/Vol]205 mg/dLCritically high<=200The [facility] on above:Performed By: #### LIPID, CMP #### [facility] [address] [place] [address] Dr. Pablo BlanchardCholesterol in HDL [Mass/Vol]40 mg/qHKeoqjn75-62Nxh [facility]ighCommymichigan medical center on above:Performed By: #### LIPID, CMP #### [facility] [address] [place] [address] Dr. Pablo BlanchardCholesterol in LDL [Mass/Vol]150.6 mg/dLRiverside Methodist Hospital on above:Performed By: #### LIPID, CMP #### [facility] [address] [place] [address] Dr. Pablo Maiesterroly.total/Cholesterol in HDL [Mass ratio]5.1 {ratio} NormalThe [facility] on above:Performed By: #### LIPID, CMP #### [facility] [address] [place] [address] Dr. Pablo BlanchardHDL NORMAL> or = 60 mg/dl - LOW CARDIOVASCULAR RISK <40 mg/dl - HIGH CARDIOVASCULAR RISKRiverside Methodist Hospital on above:Performed By: #### LIPID, CMP #### [facility] [address] [place] [address] Dr. Pablo BlanchardLDL CALC NORMALSEE BELOWCommunity Regional Medical CenterCommymichigan medical center on above:Result Comment: <100 mg/dl OPTIMAL 100 - 129 mg/dl NEAR OR ABOVE OPTIMAL 130 - 159 mg/dl BORDERLINE HIGH 160 - 189 mg/dl HIGH >190 mg/dl VERY HIGH Performed By: #### LIPID, CMP #### [facility] [address] [place] [address] Dr. Pablo BlanchardTriglyceride [Mass/Vol]72 mg/dLNormal<=150The [facility] Comment on above:Performed By: #### LIPID, CMP #### [facility] [address] [place] [address] Dr. Pablo BlanchardVLDL CALC14.4 mg/dLNormalThe [facility] GlenbeighComment on above: Performed By: #### LIPID, CMP #### [facility] [address] [place] [address] Dr. Pablo BlanchardPROF 14(COMP METB)on 54-22-9075Pdcxjhh [Mass/Vol]3.3 g/dL Critically low3.4-5.0The [facility] GlenbeighComment on above:Performed By: #### LIPID, CMP #### [facility] [address] [place] [address] Dr. Pablo BlanchardAlbumin/Globulin [Mass ratio]1.0 {ratio}NormalThe [facility] GlenbeighComment on above:Performed By: #### LIPID, CMP #### [facility] [address] [place] [address] Dr. Pablo Manzo [Catalytic activity/Vol]98 U/NNiozle06-408Qgl [facility]ighComment on above:Performed By: #### LIPID, CMP #### [facility] [address] [place] [address] Dr. Pablo Tellez [Catalytic activity/Vol]33 U/IRgzbzz12-75Isc [facility]beighComment on above:Performed By: #### LIPID, CMP #### [facility] [address] [place] [address] Dr. Pablo Vee gap [Moles/Vol]9.4 mmol/LNormalThe [facility] GlenbeighComment on above:Performed By: #### LIPID, CMP #### [facility] [address] [place] [address] Dr. Pablo Bah [Catalytic activity/Vol]16 U/XPckarg76-37Dds [facility]beighComment on above:Performed By: #### LIPID, CMP #### [facility] [address] [place] [address] Dr. Yilan ChangBilirubin [Mass/Vol]0.7 mg/dLNormal0.2-1.0The [facility] Comment on above:Performed By: #### LIPID, CMP #### [facility] [address] [address] [address] Pablo BlanchardCalcium [Mass/Vol]8.0 mg/dLCritically low8.5-10.1The [facility] GlenbeighComment on above:Performed By: #### LIPID, CMP #### [facility] [address] [place] [address] Dr. Pablo BlanchardChloride [Moles/Vol]104 mmol/BXmyczu58-638Ihd [facility] Comment on above:Performed By: #### LIPID, CMP #### [facility] [address] [place] [address] Dr. Pablo BlanchardCO2 [Moles/Vol]30.5 mmol/ZSbyyvq43.0-32.0The [facility] Comment on above:Performed By: #### LIPID, CMP #### [facility] [address] [place] [address] Dr. Pablo BlanchardCreatinine [Mass/Vol]1.02 mg/dLNormal0.70-1.30The [facility] GlenbeighComment on above:Performed By: #### LIPID, CMP #### [facility] [address] [place] [address] Dr. Pablo WashingtonGFR-AF CYMRAES>60Normal>=60The [facility] GlenbeighComment on above:Performed By: #### LIPID, CMP #### [facility] [address] [place] [address] Dr. Pablo WashingtonGFR-NON AF CYMRAES>60Normal>=60The [facility] GlenbeighComment on above:Performed By: #### LIPID, CMP #### [facility] [address] [place] [address] Dr. Pablo BlanchardGlobulin (S) [Mass/Vol]3.4 g/dLNormalThe [facility] GlenbeighComment on above:Performed By: #### LIPID, CMP #### [facility] [address] [place], [place] [id number] Dr. Pablo BlanchardGlucose [Mass/Vol]108 mg/dLCritically ufro97-307Ehs [facility]ighComment on above:Performed By: #### LIPID, CMP #### [facility] [address] [address] [address] Pablo BlanchardPotassium [Moles/Vol]3.9 mmol/LNormal3.5-5.1The [facility] Comment on above:Performed By: #### LIPID, CMP #### [facility] [address] [address] [address] Pablo BlanchardProtein [Mass/Vol]6.7 g/dLNormal6.4-8.2The [facility] Comment on above:Performed By: #### LIPID, CMP #### [facility] [address] [address] [address] Pablo BlanchardSodium [Moles/Vol]140 mmol/GQkfxsy075-540OlyMercy Health [facility] Hospital Comment on above:Performed By: #### LIPID, CMP #### [facility] [address] [address] [address] Pablo BlanchardUrea nitrogen [Mass/Vol]11.0 mg/dLNormal7.0-18.0[facility] HospitalComment on above:Performed By: #### LIPID, CMP #### [facility] [address] [place] [address] Dr. Pablo Solis nitrogen/Creatinine [Mass ratio]10.8 mg/mgNormalThe [facility] GlenbeighComment on above:Performed By: #### LIPID, CMP #### [facility] [address] [place] [address] Dr. Pablo BlanchardUA RANDOM W/MICROSCOPICon 88-52-9270LDJDUWDRIJXJ SEENNormalNONE SEENMercy Health Allen HospitalComment on above:Performed By: #### UAMIC #### [facility] [address] [place] [address] Dr. Pablo BlanchardBilirubin Ql (U)NegativeNormalNEGATIVEMercy Health Allen Hospital Comment on above:Performed By: #### UAMIC #### [facility] [address] [address] [address] Pablo ZhaoNONYadiel SEENNormalNONE SEENMercy Health Allen HospitalComment on above:Performed By: #### UAMIC #### [facility] [address] [address] [address] Pablo Lynne (U)CLEARNormalCLEARMercy Health Allen HospitalComment on above: Performed By: #### UAMIC #### [facility] [address] [address] [address] Pablo Lewis (U)YELLOWNormalYELLOWMercy Health Allen HospitalComment on above: Performed By: #### UAMIC #### [facility] [address] [place] [address] Dr. Pablo BlanchardCrystals LM Nom (Urine sed)NONE SEENNormalNONE SEENMercy Health Allen HospitalComment on above:Performed By: #### UAMIC #### [facility] [address] [place] [address] Dr. Pablo Washingtonpithelial cells LM Ql (Urine sed)FEWAbnormalNONE SEEN /RAREMercy Health Allen HospitalComment on above:Performed By: #### UAMIC #### [facility] [address] [place] [address] Dr. Pablo BlanchardGlucose Ql (U)NegativeNormalNEGATIVEMercy Health Allen HospitalComment on above:Performed By: #### UAMIC #### [facility] [address] [place] [address] Dr. Pablo BlanchardHemoglobin Ql (U)NegativeNormalNEGATIVEWestern Reserve Hospital on above:Performed By: #### UAMIC #### [facility] [address] [place] [address] Dr. Pablo BlanchardKetones Ql (U)NegativeNormalNEGATIVEMercy Health Allen HospitalComment on above:Performed By: #### UAMIC #### [facility] [address] [place] [address] Dr. Pablo BlanchardLEUKOCYTESNegativeNormalNEGATIVEMercy Health Allen HospitalComment on above:Performed By: #### UAMIC #### [facility] [address] [place] [address] Dr. Pablo ReidCOUSANSHUL SEENNormalNONE SEENMercy Health Allen HospitalComment on above:Performed By: #### UAMIC #### [facility] [address] [place] [address] Dr. Pablo Schwartztrite Ql (U)NegativeNormalNEGATIVEThe [facility] GlenbeighComment on above:Performed By: #### UAMIC #### [facility] [address] [place] [address] Dr. Pablo BlanchardpH (U)6.0 [pH]Normal5-9The [facility] GlenbeighComment on above: Performed By: #### UAMIC #### [facility] [address] [place] [address] Dr. Pablo BlanchardOupfbXOQ6-7Cqsinb6-7Poy [facility]beighComment on above:Performed By: #### UAMIC #### [facility] [address] [place] [address] Dr. Pablo BlanchardSPEC GRAVITY>=1.442Xxinvwhj9.005-<=1.025The [facility] Comment on above:Performed By: #### UAMIC #### [facility] [address] [place] [address] Dr. Pablo Castillo PROTEINNegativeNormalNEGATIVE/ TRACEThe [facility] Comment on above:Performed By: #### UAMIC #### [facility] [address] [place] [address] Dr. Pablo Hsubilinogen Qn (U)1.0 {Kuldeep'U}/dLNormal0.2 - 1.0The [facility] GlenbeighComment on above:Performed By: #### UAMIC #### [facility] [address] [place] [address] Dr. Pablo BlanchardWBCNONYadiel SEENNormalNONE SEENThe [facility] GlenbeighComment on above: Performed By: #### UAMIC #### [facility] [address] [place] [address] Dr. Pablo Maed-19 PCR (CVDTBH)on 91-11-2529ICOD-CoV-2 (COVID-19) RNA NANCIE+probe Ql (Unsp spec)Not detectedNormalNOT DETECTEDThe [facility] Comment on above:Result Comment: This test is not yet approved or cleared by the [place] FDA. When there are no FDA-approved or cleared tests available, and other criteria are met, FDA can make tests available under an emergency access mechanism called an Emergency Use Authorization (EUA). The EUA for this test is supported by the Director Of [facility] [employer] [facility] of Health and Human Service's (HHS's) declaration that circumstances exist to justify the emergency use of in vitro diagnostics for the detection and/or diagnosis of the virus that causes COVID- 19. This EUA will remain in effect (meaning [...] of clinical signs and symptoms consistent with SARS-CoV-2.Performed By: #### CVDTB #### [facility] [address] [place] [address] Dr. Pablo Ness 57-14-5735Bdpmdhjd kinase (CK)57 Int._Unit/FGdjvfa96-205 [facility] WestComment on above:Performed By: #### [id number], [id number] ####[facility] Ipfk[address] [place], [place] [address]ANVJ on 45-14-7204OENOIUYO KINASE.MB:CCNC:PT:SER/PLAS:QN:EIA0.5 ng/mLNormal0.3-4.9 [facility] WestComment on above:Performed By: #### [id number], [id number] ####[facility] Zqwpcgkted[address] [place] [address] CREATINE KINASE.MB:CCNC:PT:SER/PLAS:QN:EIA0.8 ng/mLNormal0.3-4.9[facility] - WestComment on above:Performed By: #### [id number], [id number], [id number] ####[address] [address] CREATINE KINASE.MB:CCNC:PT:SER/PLAS:QN:EIA0.7 ng/mLNormal0.3-4.9[facility] WestComment on above:Performed By: #### [id number], [id number], [id number] ####[address] [address]BFZmu 25-84-5011Jequoqf7.2 g/dLNormal1.1-2.2FHarrison Community HospitalComment on above:Performed By: #### [id number], [id number] ####[address] [address]Sjeckpm1.6 g/dLNormal3.3-5.0[facility] WestComment on above:Performed By: #### [id number], [id number] ####[address] [address] Alkaline phosphatase (ALP)71 Int._Unit/OYwbmxx06-07UewhehLake County Memorial Hospital [facility] Comment on above:Performed By: #### [id number], [id number] ####[address] [address]VBV Without P-5'-P enzyme act/vol29 Int._Unit/LNormal6-46[facility] WestComment on above: Performed By: #### [id number], [id number] ####[address] [address]Fontjjczh aminotransferase (AST)29 Int._Unit/LNormal5-43[facility] WestComment on above:Performed By: #### [id number], [id number] ####[address] [address]Ujdowyotr (total)0.5 mg/dLNormal0.0-1.1FHarrison Community HospitalComment on above:Performed By: #### [id number], [id number] ####[address] [address]OFC/Creatinine Ratio16 No JvktrWbwwrd56-25HadeydLake County Memorial Hospital - WestComment on above:Performed By: #### [id number], [id number] ####[address] [address]Nejlfrkpsf0.0 mg/dLNormal0.5-1.3FH[facility] Hospital Comment on above:Performed By: #### [id number], [id number] ####[address] [address]Jiweqkak6.9 g/dLNormal1.4-4.0 [facility] WestComment on above:Performed By: #### [id number], [id number] ####[address] [address] Protein6.5 g/dLNormal6.0-7.8[facility] WestComment on above: Performed By: #### [id number], [id number] ####[address] [address]Gesl hjzclsip14 mg/dLNormal5-21[facility] - WestComment on above:Performed By: #### [id number], [id number] ####[address] [address]Giyqj gap14 mmol/LNormal6-16[facility] WestComment on above:Performed By: #### [id number], [id number] ####[address] [address]Xdepeyd6.8 mg/dLLow8.9-11.1FH[facility] Hospital Comment on above:Performed By: #### [id number], [id number] ####[address] [address]Tidaqtfo761 mmol/LNormal 101-111[facility] - WestComment on above:Performed By: #### [id number], [id number] ####[facility] [address] [place] [address]UT076 mmol/FVeqjhc62-51LlmcciLake County Memorial Hospital - WestComment on above: Performed By: #### [id number], [id number] ####[address] [address]Cpjurab mass conc86 mg/vVQombxd82-317 [facility] - WestComment on above:Result Comment: If this glucose result represents a fasting glucose, interpretation should refer tothe following reference range: 55-99 mg/dLPerformed By: #### [id number], [id number] ####[address] [address]Hciwiotbn molar conc3.6 mmol/LNormal3.5-5.3FHarrison Community HospitalComment on above:Performed By: #### [id number], [id number] ####[address] [address]Mshmiz331 mmol/UVokizw163-396OallduLake County Memorial Hospital - WestComment on above:Performed By: #### [id number], [id number] ####[address] [address]Yruiijhbqdr 02-04-2018 Avdmlsxvg90 ng/mLNormal<=69[facility] - WestComment on above:Performed By: #### 5587807, 5525700, [id number], 8686483, [id number], [id number] ####[address] [address]Yhdaqejce32 ng/mLNormal<=69[facility] - WestComment on above:Performed By: #### [id number], [id number], [id number] ####[address] [address]Vtdbupgpi13 ng/mLNormal<=69[facility] - WestComment on above:Performed By: #### [id number], 7323985, [id number] ####[address] [address] [place], [place] [address]S3 Totalon 76-83-6059Icpxtjbjo (T4)9.1 microgram/dLNormal4.6-9.1FHarrison [facility] Hospital Comment on above:Performed By: #### [id number], [id number] ####[address] [place], [place] [address]CUTbm 43-05-2034Tgfvfrr stimulating hormone (TSH)5.61 mcIU/mLHigh0.34-5.60[facility] Comment on above:Performed By: #### [id number], [id number] ####[facility] [address] [place], [place] [address]Hboptvlbcc 85-77-7244Yjshskha I.cardiac mass concng/mLNormal<=0.03[facility] - WestComment on above: Result Comment: New Troponin Assay 11/26/13ROC [place] Cutoff value > or = 0.03 ng/mL in conjunction with clinical conditions of myocardial infarction.(www.escardio.org/guidelines)Performed By: #### [id number], 4744818, [id number], [id number], [id number], [id number] ####[facility] [address] [place], [place] [address]Agvvmvnw I.cardiac mass concng/mL Normal<=0.03[facility] - WestComment on above:Result Comment: New Troponin Assay 11/26/13ROC NV Cutoff value > or = 0.03 ng/mL in conjunction with clinical conditions of myocardial infarction.(www.escardio.org/guidelines) Performed By: #### [id number], 2938513, [id number] ####[facility] [address] [place], [place] [address]Yaaznwob I.cardiac mass concng/mL Normal<=0.03[facility] - WestComment on above:Result Comment: New Troponin Assay 11/26/13ROC [place] Cutoff value > or = 0.03 ng/mL in conjunction with clinical conditions of myocardial infarction.(www.escardio.org/guidelines) Performed By: #### [id number], 4570474, [id number] ####[facility] [address] [place], [place] [address]tKRQcs 19-42-7751mGYA (black) mL/min/{1.73_m2}Normal>=59[facility] - WestComment on above:Order Comment: Order added by Discern Expert.Result Comment: eGFR is race adjusted. AA=.Performed By: #### [id number], [id number] ####[facility] [address] [place], [place] [address]mDVD (non-black) mL/min/{1.73_m2}Normal>=59[facility] - WestComment on above:Order Comment: Order added by Discern Expert.Result Comment: Chronic kidney disease could be indicated at eGFR's of less than 60 mL/min/1.73m2. Kidney failure is indicated at less than 15 mL/min/1.73m2.Performed By: #### [id number], [id number] ####[facility] [address] [place] [address] Vital Signs Date TimeVital SignValuePerforming VzqjultbiDoxglxbk47-77-0606 08:35-0400Body bphhxo993.5 Thereseisa Aichholz LACE MACHINE OPERATOR-C Work Phone: [facility]10-15-2025 08:35-0400 Body mass index (BMI) [Ratio]31.1 kg/m2Lisa Aichholz LACE MACHINE OPERATOR-C Work Phone: [facility]10-15-2025 08:35-0400 Body vrtwxtulkhe06.3 [degF]Brooklynn Aichholz LACE MACHINE OPERATOR-C Work Phone: [facility]10-15-2025 08:35-0400 Body gksqok908.05 kgLisa Aichholz LACE MACHINE OPERATOR-C Work Phone: [facility]10-15-2025 08:35-0400 Diastolic blood jdhzbhov20 mm[Hg]Brooklynn Aichholz LACE MACHINE OPERATOR-C Work Phone: [facility]10-15-2025 08:35-0400 Heart rate95 /minBrooklynn Eagleholz LACE MACHINE OPERATOR-C Work Phone: [facility]10-15-2025 08:35-0400 Respiratory rate18 /minLisa Wandahholz LACE MACHINE OPERATOR-C Work Phone: [facility]10-15-2025 08:35-0400 SaO2% (BldA) [Mass fraction]95 %Brooklynn Muñozeri LACE MACHINE OPERATOR-C Work Phone: [facility]10-15-2025 08:35-0400 Systolic blood rtobmdke349 mm[Hg]Brooklynn Shobha LACE MACHINE OPERATOR-C Work Phone: [facility]02-05-2025 16:21-0500 Body edliiz835.2 cmLida Suh MD Work Phone: [facility]02-05-2025 16:21-0500Body mass index (BMI) [Ratio]31.67 kg/w9EdvwtcoLida Suh MD Work Phone: [facility]02-05-2025 16:21-0500Body .4 kgLida Suh MD Work Phone: [facility]02-05-2025 16:21-0500Diastolic blood hpxdaebo07 mm[Hg]Lida Suh MD Work Phone: [facility]02-05-2025 16:21-0500Heart rate 75 /minLida Suh MD Work Phone: [facility]02-05-2025 16:21-0500Systolic blood yjfcpjav86 mm[Hg]Lida Suh MD Work Phone: [facility]01-16-2025 08:21-0500Body deifvf128.5 Seamus Yeager LACE MACHINE OPERATOR Work Phone: [phone] [place], [place] [address]Qkmofmeuqd73-29-4648 08:21-0500Body mass index (BMI) [Ratio]31.8 kg/m2Lisa Fcoholz LACE MACHINE OPERATOR Work Phone: [facility] CenterKnlyutzsxj28-83-2454 08:21-0500Body temperature 97.81 [degF]Brooklynn Fcoholz LACE MACHINE OPERATOR Work Phone: [facility] CenterMxhzycbzlr21-01-7350 08:21-0500Body hmcmxe080.39 kgLisa Fcoholz LACE MACHINE OPERATOR Work Phone: [facility] CenterEgdzguqnja71-00-4118 08:21-0500Diastolic blood gdfkirmy55 mm[Hg]Brooklynn Fcoholz LACE MACHINE OPERATOR Work Phone: [facility] CenterPpzebwlbep38-41-7294 08:21-0500Heart rate88 /min Brooklynn Fcoholz LACE MACHINE OPERATOR Work Phone: [facility] CenterDvtrgdagid48-34-1554 08:21-0500Respiratory rate20 /minLisa Fcoholz LACE MACHINE OPERATOR Work Phone: [facility] CenterMzlirrzxnu43-87-4239 08:21-0963DfS8% (BldA) [Mass fraction]93 %Brooklynn Fcoholz LACE MACHINE OPERATOR Work Phone: [facility] CenterAbupuunqho85-24-7001 08:21-0500Systolic blood muwvwlpi760 mm[Hg]Brooklynn Fcoholz LACE MACHINE OPERATOR Work Phone: [facility] CenterVysaupfmme93-08-0496 08:08-0400Body yxppqw514.7 cmLisa Fcoholz LACE MACHINE OPERATOR Work Phone: [facility] CenterPvypofxchw30-39-0341 08:08-0400Body mass index (BMI) [Ratio]32.82 kg/m2Lisa Wandahholz LACE MACHINE OPERATOR Work Phone: [facility] CenterAgzofbqxan98-53-3291 08:08-0400Body temperature 98.2 [degF]Brooklynn Fcoholz LACE MACHINE OPERATOR Work Phone: [facility] CenterYrxzqpxhyi06-39-6788 08:08-0400Body izpwku336.4 kgLisa Wandahholz LACE MACHINE OPERATOR Work Phone: [facility] CenterUhfwavjfdh79-15-0380 08:08-0400Diastolic blood mm[Hg]Brooklynn Yeager LACE MACHINE OPERATOR Work Phone: [facility] CenterXgmlttuawl56-38-9874 08:08-0400Heart rate79 /min Brooklynn Yeager LACE MACHINE OPERATOR Work Phone: [facility] CenterXwdriqgrsb28-77-9733 08:08-0400Respiratory rate18 /minBrooklynn Yeager LACE MACHINE OPERATOR Work Phone: [facility] CenterHhssrjjaga93-08-4236 08:08-9813QtH8% (BldA) [Mass fraction]97 %Brooklynn Yeager LACE MACHINE OPERATOR Work Phone: [facility] CenterOxmrvhuecv42-48-0962 08:08-0400Systolic blood xnwjzemr911 mm[Hg]Brooklynn Yeager LACE MACHINE OPERATOR Work Phone: [facility] CenterEqnvtuamzq93-83-9407 10:11-0400Body mpojlu894.[address]09-03-2024 10:11-0400Body mass index (BMI) [Ratio] 31.67 kg/m[address]09-03-2024 10:11-0400Body tnnulu829.[address]07-17-2024 16:33-0400Body hlervb390.4 cmLida Suh MD Work Phone: [facility]07-17-2024 16:33-0400Body mass index (BMI) [Ratio]33.64 kg/x4LtevenwLida Suh MD Work Phone: [facility]07-17-2024 16:33-0400Body wmblus586.67 kgLida Suh MD Work Phone: [facility]07-17-2024 16:33-0400Diastolic blood scsfosxu14 mm[Hg]Lida Suh MD Work Phone: [facility]07-17-2024 16:33-0400Heart rate 73 /minLida Suh MD Work Phone: [facility]07-17-2024 16:33-0400Systolic blood uznlkojc59 mm[Hg]Lida Suh MD Work Phone: [facility]05-01-2024 11:37-0400Body dgcgiv936 cmLida Suh MD Work Phone: [facility]05-01-2024 11:37-0400Body mass index (BMI) [Ratio]31.46 kg/o7ByzuvtiLida Suh MD Work Phone: [facility]05-01-2024 11:37-0400Body .13 kgLida Suh MD Work Phone: [facility]05-01-2024 11:37-0400Diastolic blood zjoxlvka74 mm[Hg]Lida Suh MD Work Phone: [facility]05-01-2024 11:37-0400Heart rate 69 /minLida Suh MD Work Phone: [facility]05-01-2024 11:37-0400Systolic blood mm[Hg]Lida Suh MD Work Phone: [facility]04-04-2024 09:02-0400Body iqekvz[address]04-04-2024 09:02-0400Body mass index (BMI) [Ratio]32.1 kg/m2Pmh [address] [place], [place] [address]204-04-2024 09:02-0400Body qemzrw455.[address] [place], [place] 35[address]202-21-2024 14:11-0500Body zyrdgy158 cm Lida Suh MD Work Phone: [facility]02-21-2024 14:11-0500Body mass index (BMI) [Ratio]31.46 kg/i8SnfzilsLida Suh MD Work Phone: [facility]02-21-2024 14:11-0500Body uobvpf952.13 kgLida Suh MD Work Phone: [facility]02-21-2024 14:11-0500Diastolic blood rvkadfub04 mm[Hg]Lida Suh MD Work Phone: [facility]02-21-2024 14:11-0500Heart rate 76 /minLida Suh MD Work Phone: [facility]02-21-2024 14:11-0500Systolic blood rlbojuzq550 mm[Hg]Lida Suh MD Work Phone: [facility]04-10-2023 15:54-0400Diastolic blood czwfwjuq44 mm[Hg]Brooklynn Aichholz Work Phone: [facility]04-10-2023 15:54-0400 Heart rate69 /minLisa Aichholz Work Phone: [phone]-[facility]04-10-2023 15:54-0400 Respiratory rate16 /minLisa Aichholz Work Phone: [facility]04-10-2023 15:54-0400 SaO2% (BldA) [Mass fraction]99 %Brooklynn Aichholz Work Phone: [facility]04-10-2023 15:54-0400 Systolic blood ifdnzjws42 mm[Hg]Brooklynn Aichholz Work Phone: [facility]04-10-2023 14:07-0400 Body scmmla285.96 cmLisa Aichholz Work Phone: [facility]04-10-2023 14:07-0400 Body wvaqajtowim32.2 [degF]Brooklynn Aichholz Work Phone: [facility]04-10-2023 14:07-0400 Body xozvak547.39 kgLisa Aichholz Work Phone: [facility]02-21-2023 23:07-0500 Heart rate73 /minLisa Aichholz Work Phone: [facility]02-21-2023 23:07-0500 Respiratory rate18 /minLisa Aichholz Work Phone: [facility]02-21-2023 23:07-0500 SaO2% (BldA) [Mass fraction]99 %Brooklynn Aichholz Work Phone: [facility]02-21-2023 22:55-0500 Body nrdyuzafujd54.7 [degF]Brooklynn Aichholz Work Phone: [phone] [place], [place] 278[address]02-21-2023 22:55-0500 Diastolic blood sszuduhh33 mm[Hg]Brooklynn Aichholz Work Phone: [phone])692-[address] [place], [place] [address]02-21-2023 22:55-0500 Systolic blood hfmworob575 mm[Hg]Brooklynn Aichholz Work Phone: 1(330)802-[address] [place], [place] 278[address]02-21-2023 22:11-0500 Body bncfny490.23 cmLisa Aichholz Work Phone: [facility]02-21-2023 22:11-0500 Body kyrkwz979.4 kgLisa Aichholz Work Phone: [phone] [place] [address] Encounters Encounter DateEncounter TypeCare ProviderFacilityStart: 04-29-2025 End: 51-63-7833grszbbnplpYZJGJorge Alberto [facility] HospitalStart: 04-29-2025 End: 98-84-7483Gzumdrwjcq hospital [facility]Inter[facility] Schedule [facility] LABComment on above:ArrivedStart: 04-28-2025 End: 17-27-1828hykxzaziynXbnjJorge Alberto GARY Work Phone: [facility] Work Phone: Start: 04-28-2025 End: 97-95-6133Yylbseg encounter Katt Yeager LACE MACHINE OPERATOR-C-[facility] Work Phone: Start: 24-59-4456Urc-patient / Non-visitRad Lopez Stefano [facility] Work Phone: Start: 03-04-2025 End: 36-67-6352WgmvymZjpu Aichholz LACE MACHINE OPERATOR Work Phone: noms C[facility] FMComment on above:Vitamin D deficiencyStart: 12-30-2024 End: 97-67-1399Yykczegrl encounterLida Suh MD Work Phone: [facility]Urinary SurgeonsStart: 12-30-2024 End: 19-32-8060Uwkhkznano and management of inpatientLIDA SUHProMedica Pioneers Memorial Hospitaltart: 12-14-2024 End: 44-52-9039Ilnzew OnlyLida Suh MD Work Phone: [facility]ito-Urinary SurgeonsComment on above:Malignant neoplasm of overlapping sites of bladder (CMS-HCC) (Primary Dx) Start: 12-11-2024 End: 81-55-9104Dtmoqiddm encounterCheryl Emch CNAProMedica Physicians Genito- Urinary SurgeonsStart: 12-10-2024 End: 75-45-7533Ckppvcslt Result EncounterBrooklynn Yeager LACE MACHINE OPERATOR Work Phone: [facility]oms External Department UnsolicitedStart: 12-10-2024 End: 43-32-3562Hlsztfszi Result EncounterBrooklynn Yeager LACE MACHINE OPERATOR Work Phone: [facility] External Department UnsolicitedStart: 10-13-2024 End: 52-60-1211Ynnfij OnlyBrooklynn Yeager LACE MACHINE OPERATOR Work Phone: [facility] FMComment on above:Vitamin D deficiency (Primary Dx)Start: 10-12-2024 End: 19-99-4777Frgfepctu Result EncounterLisa Aichholz LACE MACHINE OPERATOR Work Phone: [facility] External Department UnsolicitedStart: 10-12-2024 End: 46-21-4099Kzcyixgyw Result EncounterLisa Aichholz LACE MACHINE OPERATOR Work Phone: [facility] External Department UnsolicitedStart: 10-12-2024 End: 95-53-1165KrgtdaXezv Aichholz LACE MACHINE OPERATOR Work Phone: [facility] FMComment on above:Vitamin D deficiency (Primary Dx)Start: 10-05-2024 End: 13-91-9286terssdaeobWYDN AICHHOLZNot AvailableStart: 09-16-2024 End: 89-47-2445Lrqygjlbc encounterLida Suh MD Work Phone: [facility] Genito-Urinary SurgeonsStart: 09-11-2024 End: 94-59-4472Kboamiwsx Result EncounterGeneric External Data ProviderNOMS External Department UnsolicitedStart: 09-11-2024 End: 28-36-8655Oobkvgmey Result EncounterGeneric External Data ProviderNOMS External Department UnsolicitedStart: 08-19-2024 End: 86-02-1055Mtdezl outpatient visit 15 minutesLida Suh MD Work Phone: [facility] Phys[facility] Genito-Urinary SurgeonsComment on above:Elevated PSA (Primary Dx); Malignant neoplasm of overlapping sites of bladder ([facility]-HCC)Start: 08-19-2024 End: 45-87-8747szwsbzlxedVFKPCJK G RASHIDTriHealth [facility] Ambulatory PPGStart: 08-18-2024 End: 10-85-1090Iigydqtde Result EncounterLisa Aichholz LACE MACHINE OPERATOR Work Phone: n[facility] External Department UnsolicitedStart: 08-18-2024 End: 60-43-2531Tngyftvxv Result EncounterLisa Aichholz LACE MACHINE OPERATOR Work Phone: noms External Department UnsolicitedStart: 08-18-2024 End: 74-38-3629EditkeBbph Aichholz LACE MACHINE OPERATOR Work Phone: [facility] FMComment on above:Vitamin D deficiency (Primary Dx)Start: 08-14-2024 End: 32-95-2693Mqycjz OnlyLisa Aichholz LACE MACHINE OPERATOR Work Phone: [facility] FMComment on above:Hypocalcemia (Primary Dx); HyperglycemiaStart: 08-13-2024 End: 05-40-2179Ndavksxxk Result EncounterLisa Aichholz LACE MACHINE OPERATOR Work Phone: noms External Department UnsolicitedStart: 08-13-2024 End: 04-37-7713Cffskzdxv Result EncounterLisa Aichholz LACE MACHINE OPERATOR Work Phone: n[facility] External Department UnsolicitedStart: 07-30-2024 End: 38-37-5901Wrehpj flowsheetLisa Aichholz LACE MACHINE OPERATOR Work Phone: [facility] FMStart: 07-30-2024 End: 83-49-6543Biaaei flowsheetLisa Aichholz LACE MACHINE OPERATOR Work Phone: [facility] FMStart: 07-30-2024 End: 35-51-1480Ugdpvm outpatient visit 25 minutesLisa Fcoholz LACE MACHINE OPERATOR Work Phone: [facility] FMComment on above:Bipolar disorder, current episode mixed, mild (CMS/HCC) (Primary Dx); Malignant neoplasm of overlapping sites of bladder (CMS/HCC); Obesity (BMI 30-39.9); Mixed hyperlipidemia (CMS/HCC); Tobacco user; Bipolar affective disorder, remission status unspecified (CMS/HCC)Start: 07-30-2024 End: 18-66-3368jewsrhpiitAQVC AICHHOLZNot AvailableStart: 07-20-2024 End: 57-98-6078RuytbpVuqj Aichholz LACE MACHINE OPERATOR Work Phone: [facility] FMComment on above:Mixed hyperlipidemia (CMS/HCC); Bipolar affective disorder, remission status unspecified (CMS/HCC)Start: 07-02-2024 End: 90-14-5365PuibpzTkew Aichholz LACE MACHINE OPERATOR Work Phone: [facility] C[facility] FMComment on above:COVID (Primary Dx)Start: 06-17-2024 End: 25-45-9546Errchrupe encounterLida Suh MD Work Phone: [facility] SurgeonsStart: 06-17-2024 End: 22-91-0158Dqltdftoci and management of inpatientLIDA SUHJ.[facility] HospitalStart: 06-16-2024 End: 10-90-2820hgjhaodljfECMC J AICHHOLZTriHealth Good Samaritan Hospitaltart: 05-22-2024 End: 41-47-0101Fdpjhm OnlyLida Suh MD Work Phone: [facility]-Urinary SurgeonsComment on above:Malignant neoplasm of overlapping sites of bladder (CMS-HCC) (Primary Dx) Start: 04-15-2024 End: 81-22-6629CwoqjfFgvm Aichholz LACE MACHINE OPERATOR Work Phone: [facility] C[facility] FMComment on above:Mixed hyperlipidemia (CMS/HCC); Bipolar affective disorder, remission status unspecified (CMS/HCC)Start: 03-30-2024 End: 92-32-5853Ailxmt flowsheetLisa Aichholz LACE MACHINE OPERATOR Work Phone: [facility] C[facility] FMStart: 03-30-2024 End: 44-50-1611Vluaew flowsheetLisa Aichholz LACE MACHINE OPERATOR Work Phone: [facility] C[facility] FMStart: 03-30-2024 End: 75-70-2642Cpgqcz outpatient visit 25 minutesLisa Aichholz LACE MACHINE OPERATOR Work Phone: [facility] C[facility] FMComment on above:Bipolar affective disorder, remission status unspecified (CMS/HCC) (Primary Dx); Malignant neoplasm of overlapping sites of bladder (CMS/HCC); Tobacco user; Lump of skin; Contusion of scalp, initial encounter; Mixed hyperlipidemia (CMS/HCC)Start: 03-30-2024 End: 75-83-7285wyjqzfptzrRNTP AICHHOLZNot AvailableStart: 03-18-2024 End: 16-08-5142Uwuzrtosn encounterLida Suh MD Work Phone: [facility] SurgeonsStart: 03-18-2024 End: 85-45-8485Qzqmikwynx and management of inpatientLIDA Garcia OLINDAAscension [facility] HospitalStart: 03-17-2024 End: 57-13-5219sigszwxpqmVcj Pat Phone Call Provider [address] [place] [address] - Pre AdmitStart: 03-09-2024 End: 68-99-5961dzptppigwzTNPRWCH Christine OLINDAAscension [facility] HospitalStart: 01-29-2024 End: 21-19-6016Wuujtu outpatient visit 15 minutesLida Suh MD Work Phone: [facility]-Urinary SurgeonsComment on above:Urinary incontinence, unspecified type (Primary Dx); Elevated PSA; Malignant neoplasm of overlapping sites of bladder ([facility])Start: 01-29-2024 End: 79-06-5958wtqcccyqtrZPVFRHL G RASHLouis [facility] Ambulatory PPGStart: 01-21-2024 End: 15-19-7376Qguegvskn encounterRakendy Olson [facility] Genito- Urinary SurgeonsStart: 12-19-2023 End: 20-11-8360Qcolvp OnlyLida Suh MD Work Phone: [facility] Genito-Urinary SurgeonsStart: 12-02-2023 End: 14-40-5078obdhiwjolwCKLY J AICKATYASelect Medical [facility]ty [facility] HospitalStart: 12-01-2023 End: 18-66-3717Adlkdmqgty and management of inpatientJOSE GARIBAYSelect Medical [facility]Start: 12-01-2023 End: 97-36-7300Hifdftqcb department patient visitBrooklynn Yeager [facility]: 11-29-2023 End: 31-47-5589Bfxhmonam department patient visitLISA Adi MUÑOZBARIX CLIN[facility] PEN[facility]IAZC[facility]innati VA Medical Centertart: 11-14-2023 End: 10-25-3141acxdmnpsbwTBQGIIH [facility] HospitalStart: 11-13-2023 End: 61-89-1919Eudzhrybj encounterLida Suh MD Work Phone: [facility] SurgeonsStart: 11-13-2023 End: 94-61-9169Jpngfn outpatient visit 25 minutesLida Suh MD Work Phone: [facility]-Urinary SurgeonsComment on above:Malignant neoplasm of overlapping sites of bladder (CMS-HCC) (Primary Dx); Elevated PSAStart: 11-13-2023 End: 01-50-1311frwwpgzlykIZEDKHJ G RASHLouis [facility] Ambulatory PPGStart: 11-07-2023 End: 08-11-6760Bouxrr OnlyLida Suh MD Work Phone: [facility]-Urinary SurgeonsComment on above:Hematuria, microscopic (Primary Dx)Start: 10-31-2023 End: 03-17-4886Swpuazbai encounterGuanako Martines CMAProMedica Physicians Genito-Urinary SurgeonsStart: 10-30-2023 End: 13-51-2663Vuzqzayxs encounterLida Suh MD Work Phone: [facility] SurgeonsStart: 10-17-2023 End: 15-44-2844Tqzfhzh encounter procedureBarney [facility] Pre-Admission Testing [address] [place] [address] - Pre AdmitStart: 12-52-6816Sysclzbec encounterLida Suh MD Work Phone: [facility] SurgeonsStart: 09-04-2023 End: 34-79-7318Nhvpai consultation new/estab patient 60 minLida Suh MD Work Phone: [facility]-Urinary SurgeonsComment on above:Elevated PSA (Primary Dx); Hematuria, microscopicStart: 09-04-2023 End: 43-06-8532tqzcvoepwnNDSZXQF Christine [facility] Ambulatory PPGStart: 71-04-1866FltupaAvkh Aichholz LACE MACHINE OPERATOR Work Phone: noms CWM FMComment on above:Mixed hyperlipidemia (CMS/HCC) (Primary Dx)Start: 71-51-5497Enmmmhgwr encounterBrooklynn Yeager LACE MACHINE OPERATOR Work Phone: [facility] CWM FMStart: 10-22-2022 End: 12-54-1095Zeucsrded to same day surgery centerLisa Yeager Work Phone: [facility] C[facility]-Surgery Center Main CampusStart: 10-22-2022 End: 61-62-8936tnsbutewqiDrrj J Aichholz Work Phone: [facility] Work Phone: Start: 10-03-2022 End: 85-64-4631pympajrgccQmlu J Aichholz Work Phone: [facility] Work Phone: Start: 10-03-2022 End: 06-16-3716Unveiupk ReferredLi Wandajermainekatya Work Phone: [facility] Ctr-Lab Main Lawn Work Phone: Start: 09-18-2022 End: 09-68-3176nkrnhrzudgJUL BROOKLYNN SHOBHAFacility:X9Ldelh: 09-04-2022 End: 72-02-3281Qnaxjkjvq department patient visitLisa Yeager Work Phone: [facility] Ctr-Emergency Room Work Phone: Start: 03-08-2022 End: 82-58-2649jxxtpsdwqiWIH BROOKLYNN AICHHOLZFacility:Y5Trnzy: 11-03-2021 End: 61-66-0135tlukobqlyxQVZ BROOKLYNN AICHHOLZFacility:R3Umuma: 05-22-6561Povlrvb encounterKINJAL CHEWFacility:FTMCStart: 07-81-4107Hocbanq encounterKINJAL CHEW [facility] Procedures DateProcedureProcedure DetailPerforming ClinicianStart: 08-65-0441Xkdkgiieyghqf metabolic panelLisa Danya Yeager BULB ASSEMBLER - LACE MACHINE OPERATOR Work Phone: Start: 17-81-1281Vsgrr panelLisa Adi. Shobha BULB ASSEMBLER - LACE MACHINE OPERATOR Work Phone: Start: 34-32-5288Dnjxr dip stick/tablet reagent auto microscopyLisa Danya Eagleholvelia BULB ASSEMBLER - LACE MACHINE OPERATOR Work Phone: Start: 42-06-2910IWH VITAMIN D 25 OHLisa Aichholz LACE MACHINE OPERATOR Work Phone: Start: 08-79-6148TWK BASIC METABOLIC PANELLisa Aichholz LACE MACHINE OPERATOR Work Phone: Start: 52-25-2784FQZME RESPIRATORY CULTUREGeneric External Data ProviderStart: 30-45-7851EFZ HEMOGLOBIN C3NHmvp Aichholz LACE MACHINE OPERATOR Work Phone: Start: 80-59-3167YTT LIPID PROFILE (FASTING)Brooklynn Eaglekatya LACE MACHINE OPERATOR Work Phone: Start: 34-95-0296LVV THYROID STIM HORMONELisa Aichholz LACE MACHINE OPERATOR Work Phone: Start: 72-45-4286LJW CMP (CMP) (FOR REMOTE [facility] USE) Brooklynn Eaglekatya LACE MACHINE OPERATOR Work Phone: Start: 13-75-0819ILCKSEZ POST VOID RESIDUALMicdemetriusl Christine Suh MD Work Phone: Start: 23-39-2769Ceeop depression screening assessment Lida Suh MD Work Phone: Start: 81-70-7210Qraric-up visitFollow-upLIDA SHEPHERDtart: 49-99-9688Kmwvfltm of cystLisa Aichholz Work Phone: Start: 02-14-9102GzphapgaephItal Wandawilkes-barre general hospitalvelia LACE MACHINE OPERATOR Work Phone: Start: 71-47-8990Jyvcv X-ray abdomenLisa Neidaz Work Phone: Start: 93-67-4562RNBA-CoV-2, Influenza & RSV (PCR)Brooklynn Yeager Work Phone: Start: 04-25-9038IIL screeningCNP BROOKLYNN YEAGERComment on above:Performed By: #### PSASC #### [facility] [address] [place] [address] Dr. Pablo Blanchard Plan of Treatment DateCare ActivityDetailAuthorStart: 43-68-8614Jsgowbffs for malignant neoplasm of colonNOMS HealthcareStart: 08-23-2025 End: 78-67-9506Yjmdwxp encounter hhjqleixs65/09/2026 1:45 PM EST Office Visit [facility] [address] [place] [address] [facility] [place] [address] Lida Suh MD [address] [place] [address] [facility] SurgeonsStart: 28-16-9021Zyefp BMI ScreeningAdult BMI Screening [facility] SystemStart: 08-19-2025 End: 37-20-9495Yjmicapbi specific antigen, diagnosticProstatic specific antigen, diagnostic Lab Routine Elevated PSA Expected: 08/19/2025 (Approximate),Expires: 07/20/2026[facility] Work Phone: Comment on above:Expected: 08/19/2025 (Approximate), Expires: 07/20/2026Start: 05-71-3002Deftktk ScreeningTobacco ScreeningProHolzer Hospitalca [facility] SystemStart: 05-06-9158Ilgqdza ScreeningTobacco ScreeningProHolzer Hospitalca [facility] SystemStart: 04-28-2025 End: 30-16-1259Zzgudkg encounter xfnsmkaax26/15/2025 8:40 AM EDT Office Visit [facility] [address] [place] [address] Brooklynn Yeager, ROSA [address] [place] [address] [facility] CWM FMStart: 14-51-9402Liqglcw ScreeningTobacco Screening [facility] SystemStart: 37-21-0809Uesrx BMI ScreeningAdult BMI Screening [facility] SystemStart: 41-27-3516Nkenlxljk vaccinationInfluenza Vaccine [facility]: 73-15-3630Mmexu BMI ScreeningAdult BMI Screening [facility]: 65-61-6031Gspwnol ScreeningTobacco Screening [facility]art: 12-30-2024 End: 45-18-2517Ejtiwphcx to same day surgery hklklr2612/30/2024 8:00 AM EDT - 12/30/2024 8:30 AM EDT Surgery [facility] Surgery [address] [place] [address] Lida Suh MD [address] [place] [address] CYSTOSCOPY [49887 (CPT )][facility] SystemComment on above:CYSTOSCOPY [33676 (CPT )]Start: 12-30-2024 End: 85-87-1125MvjfgskqbaldcsbsxCBEGSYX SURGERYStart: 38-02-5342Maswnkqwcb hospital visit by bgardwnwl49/18/2025 8:00 AM EDT Hospital Encounter [facility] Surgery [address] [place] [address] Lida Suh MD [address] [place] [address] [facility] SystemStart: 12-29-2024 End: 02-09-3462csuovstmju09/17/2025 4:10 PM EDT Support Visit [facility] Admit [address] [place] [address] [facility] AdmitStart: 12-14-2024 End: 424069-pxrlgtobehbiga D3 [Mass/volume] in Serum or PlasmaVitamin D 25 hydroxy Lab Routine Vitamin D deficiency Expected: 12/14/2024 (Approximate), Expires: 10/13/2025NOFifth [employer] Work Phone: Comment on above:Expected: 12/14/2024 (Approximate), Expires: 10/13/2025Start: 33-64-2460Uahxh BMI ScreeningAdult BMI Screening [facility] SystemStart: 10-57-9131Xvqfnzeyqm ScreeningDepression Screening [facility] SystemStart: 16-74-9255Wufetis ScreeningTobacco Screening [facility] SystemStart: 33-67-2413Tgbea BMI ScreeningAdult BMI Screening [facility] SystemStart: 43-74-4050Dnxwtue ScreeningTobacco Screening [facility] SystemStart: 00-83-0866Gfmhs BMI ScreeningAdult BMI Screening [facility] SystemStart: 37-12-9505Cedhsvd ScreeningTobacco Screening [facility] SystemStart: 10-16-2024 End: 206737-ryinvrmvwpkgnu D3 [Mass/volume] in Serum or PlasmaVitamin D 25 hydroxy Lab Routine Vitamin D deficiency Expected: 10/16/2024 (Approximate), Expires: 08/18/2025NOFif[employer] Work Phone: Comment on above:Expected: 10/16/2024 (Approximate), Expires: 08/18/2025Start: 73-55-6965Ywujm BMI ScreeningAdult BMI Screening [facility] SystemStart: 05-24-7581Lrewkxt ScreeningTobacco Screening [facility] SystemStart: 10-05-2024 End: 95-01-7885Gdomodx encounter zbxagemsm03/24/2025 8:40 AM EDT Office Visit [facility] [address] [place] [address] Brooklynn Yeager, ROSA [address] [place] [address] [facility] C[facility] FMStart: 77-06-1122Oulht BMI ScreeningAdult BMI ScreeningProHolzer Hospitalca Health SystemStart: 86-50-2125Gkedsis ScreeningTobacco ScreeningProHolzer Hospitalca [facility] SystemStart: 08-19-2024 End: 88-00-9325Gnkwtnl encounter lmbxodltm31/05/2025 3:45 PM EST Office Visit [facility] [address] [place] [address] Lida Suh MD [facility] [place], [place] [address] [facility] SurgeonsStart: 08-14-2024 End: 557174-klkixpckvzdksh D3 [Mass/volume] in Serum or PlasmaVitamin D 25 hydroxy Lab Routine Hypocalcemia Expected: 08/14/2024 (Approximate), Expires: 08/14/2025[facility] Work Phone: Comment on above:Expected: 08/14/2024 (Approximate), Expires: 08/14/2025Start: 08-14-2024 End: 56-46-5048Aacmkghnup A1c/Hemoglobin.total in BloodHemoglobin A1c Lab Routine Hyperglycemia Expected: 08/14/2024 (Approximate), Expires: 08/14/2025 N[facility] HealthcareComment on above:Expected: 08/14/2024 (Approximate), Expires: 08/14/2025Start: 07-30-2024 End: 30-14-3242IGW W Auto Differential panel - BloodCBC and differential Lab Routine Tobacco user Expected: 07/30/2024 (Approximate), Expires: 07/30/2025[facility] HealthcareComment on above:Expected: 07/30/2024 (Approximate), Expires: 07/30/2025Start: 07-30-2024 End: 34-12-0572Hkborzksldcfi metabolic 2000 panel - Serum or PlasmaComprehensive metabolic panel Lab Routine Obesity (BMI 30-39.9) Bipolar disorder, current episode mixed, mild (CMS/HCC) Mixed hyperlipidemia (CMS/HCC) Expected: 07/30/2024 (Approximate), Expires: 07/30/2025NONC HealthcareComment on above: Expected: 07/30/2024 (Approximate), Expires: 07/30/2025Start: 07-30-2024 End: 32-98-6531Ieqqd 1996 panel - Serum or PlasmaLipid panel Lab Routine Mixed hyperlipidemia (CMS/HCC) Expected: 07/30/2024 (Approximate), Expires:07/30/2025 [facility] Work Phone: Comment on above:Expected: 07/30/2024 (Approximate), Expires: 07/30/2025Start: 07-30-2024 End: 21-96-4358Vtnciyebmxy [Units/volume] in Serum or PlasmaTSH Lab Routine Bipolar disorder, current episode mixed, mild (CMS/HCC) Expected: 07/30/2024 (Approximate), Expires: 07/30/2025[facility] HealthcareComment on above:Expected: 07/30/2024 (Approximate), Expires: 07/30/2025Start: 07-30-2024 End: 83-42-4235Kfdwdoyad (T4) free [Mass/volume] in Serum or PlasmaT4, free Lab Routine Bipolar disorder, current episode mixed, mild (CMS/HCC) Expected: 07/30/2024 (Approximate), Expires: 07/30/2025NONC HealthcareComment on above: Expected: 07/30/2024 (Approximate), Expires: 07/30/2025Start: 07-30-2024 End: 40-36-5864Nkbdqqt encounter procedureNOMS CWM FMComment on above:Obesity (BMI 30-39.9) (Primary Dx); Malignant neoplasm of overlapping sites of bladder (CMS/HCC); Bipolar disorder, current episode mixed, mild (CMS/HCC); Mixed hyperlipidemia (CMS/HCC); Tobacco userStart: 06-17-2024 End: 24-10-5957Wiqrpsqgf to same day surgery ctayum7006/17/2024 11:30 AM EST - 06/17/2024 12:00 PM EST Surgery [facility] - Surgery [address] [place] [address] Lida Suh MD [address] [place] [address] CYSTOSCOPY [45452 (CPT )][facility] - SurgeryComment on above:CYSTOSCOPY [13426 (CPT )]Start: 06-17-2024 End: 63-33-3026QmgfabxtlrhvbvodxDIMAOHA SURGERYStart: 35-38-3757Ssyemhjtgz hospital visit by abqhmxzhq73/04/2024 11:30 AM EST Hospital Encounter [facility] - Surgery [address] [place] [facility] [place] [address] Lida Suh MD [address] [place] [address] [facility] - SurgeryStart: 06-16-2024 End: 10-54-8265zyhplanvff53/03/2024 3:40 PM EST Support Visit [facility] - Pre Admit [address] [place] [address] [facility] - Pre AdmitStart: 06-08-2024 End: 50-34-0268Hbegkpq encounter uirbchkpt47/25/2024 2:45 PM EST Office Visit [facility] [address] [place] [address] [facility] [address] Lida Suh MD [address] [place] [address] [facility] SurgeonsStart: 05-20-2024 End: 88-36-8686Bnzvokf encounter arknydmtc33/06/2024 2:30 PM EST [facility] [address] [place] [address] [address] [facility] [address] Lida Suh MD [address] [place] [address] [facility] Genito-Urinary SurgeonsStart: 05-11-2024 End: 85-81-7526Vuxweglqt specific antigen, diagnosticProstatic specific antigen, diagnostic Lab Routine Elevated PSA Expected: 05/11/2024 (Approximate),Expires: 11/12/2024ProSam[facility]itan Hospital SystemComment on above:Expected: 05/11/2024 (Approximate), Expires: 11/12/2024Start: 03-30-2024 End: 33-07-2416Goqwyrf encounter vrkbbmymq13/16/2024 9:00 AM EDT Office Visit [facility] [address] [place] [address] Brooklynn Yeager, ROSA [address] [place] [address] ArrivedNOMS CWM FMComment on above:ArrivedStart: 03-18-2024 End: 76-13-8168Gnuofqhzx to same day surgery veevlm3803/18/2024 8:00 AM EDT - 03/18/2024 8:30 AM EDT Surgery [facility] - Surgery [address] [place] [address] Lida Suh MD [address] [place] [address] 6000[address] CYSTOSCOPY [84099 (CPT )][facility] - SurgeryComment on above:CYSTOSCOPY [93318 (CPT )]Start: 03-18-2024 End: 90-09-9040UgqpkewapzjonstppXHMKUMQ SURGERYStart: 23-97-4180Hjeleknxfu hospital visit by bgtfkodwf71/04/2024 8:00 AM EDT Hospital Encounter [facility] - Surgery [address] [place] [address] Lida Suh MD [address] [place] [address] [facility] - SurgeryStart: 03-17-2024 End: 85-30-9887pwsmfuluzx20/03/2024 4:20 PM EDT Support Visit [facility] Admit [address] [place] [address] [facility] AdmitStart: 18-29-9730LGAYU-19 Vaccine ( season)COVID-19 Vaccine ()[facility] Start: 53-73-8123JZVES-19 Vaccine ( season)COVID-19 Vaccine ()[facility]: 83-00-3738Jtyrhpieg vaccination Influenza VaccineNovant Healthtart: 02-13-2024 End: 91-99-8793GolapwsmOmyluwyj Pathology and Cytology Routine Malignant neoplasm of overlapping sites of bladder ([facility]-HCC) Expected: 02/13/2024 (Approximate), Expires: 11/12/2024[facility] CampusComment on above: Expected: 02/13/2024 (Approximate), Expires: 11/12/2024Start: 02-13-2024 End: 11-85-8443Twbcvnjaw for bladderUrovysion for bladder Lab Routine Malignant neoplasm of overlapping sites of bladder ([facility]-HCC) Expected: 02/13/2024 (Approximate), Expires: 11/12/2024[facility] CampusComment on above: Expected: 02/13/2024 (Approximate), Expires: 11/12/2024Start: 01-29-2024 End: 20-65-5161Drlywda encounter boirwixif45/17/2024 4:00 PM EDT Office Visit [facility] [address] [place] [address] [place] [address] Lida Suh MD [address] [place] [address] [facility] SurgeonsStart: 12-18-2023 End: 58-76-5419Msrjycd encounter ncepkyixq11/05/2024 12:15 PM EDT Office Visit [facility] [address] [place] [address] [place] [address] Lida Suh MD [address] [place] [address] [facility] SurgeonsStart: 11-22-2023 End: 46-55-8391Aiunwqm encounter procedureChillicothe Hospital - Nuclear MedIcineStart: 11-13-2023 End: 59-95-8137DG Whole body Bone ViewsNM bone scan whole body Imaging Routine Malignant neoplasm of overlapping sites of bladder (CMS-HCC) Elevated PSA Expected: 11/13/2023, Expires: 11/12/2024[facility] SystemComment on above:Expected: 11/13/2023, Expires: 11/12/2024Start: 11-13-2023 End: 65-82-8471Taspxdj encounter xlnytyzwg30/01/2024 11:45 AM EDT Office Visit [facility] [address] [place] [address] [place] [address] Lida Suh MD [address] [place] [address] [facility]-Ur[facility] SurgeonsStart: 11-04-2023 End: 59-31-5623Qedbrcw encounter procedureProHolzer Hospitalca [facility]icians Genito-Urinary SurgeonsStart: 10-30-2023 End: 39-46-3197Krglmnlsj to same day surgery mhsvrt1010/30/2023 9:30 AM EDT - 10/30/2023 10:30 AM EDT Surgery [facility] Surgery [address] [facility] [address] Lida Suh MD [address] [place] [address] CYSTOSCOPY [72956 (CPT )][facility] SystemComment on above:CYSTOSCOPY [66718 (CPT )]Start: 10-30-2023 End: 59-01-0338Oqvgc bladder w/ureteral catheterizationCYSTOSCOPY RETROGRADE PYELOGRAM Hematuria, microscopic 10/30/2023 9:30 AM EDTFREMONT SURGERYStart: 10-30-2023 End: 72-86-6853DODXGRIYUW TRANSURETHRAL RESECTION BLADDER TUMORCYSTOSCOPY TRANSURETHRAL RESECTION BLADDER TUMOR Hematuria, microscopic 10/30/2023 9:30 AM [facility]: 10-30-2023 End: 59-08-4213YnpuohipfpheofzcoANTCZUHZPJ Hematuria, microscopic 10/30/2023 9:30 AM EDTFREMONT SURGERYStart: 10-30-2023 End: 62-07-1008Gjbjjyojvlecptrsx with biopsyCYSTOSCOPY BIOPSY BLADDER Hematuria, microscopic 10/30/2023 9:30 AM EDTFREMONT SURGERYStart: 85-24-6773Rcaytxhgaa hospital visit by upczqhmtg32/17/2024 9:30 AM EDT Hospital Encounter [facility] Surgery [address] [place] [address] Ldia Suh MD [address] [place] [address] [facility] SystemStart: 10-22-2023 End: 97-63-6272Cukzzkyfq specific antigen, diagnosticProstatic specific antigen, diagnostic Lab Routine Elevated PSA Expected: 10/22/2023, Expires: 09/03/2024 [facility] CampusComment on above:Expected: 10/22/2023, Expires: 09/03/2024Start: 09-26-2023 End: 80-23-2245Ydalpoy encounter udxkvcqoo84/14/2024 9:00 AM EDT [facility] [address] [place] [address] Brooklynn Yeager, ROSA [address] [place] [address] [facility] FMStart: 09-04-2023 End: 43-00-4302GJ Kidney and Ureter and Urinary bladder 3D post processing WO and W contrast IVCT urogram Imaging Routine Hematuria, microscopic Expected: 09/04/2023, Expires: 09/04/2024[facility] Work Phone: Comment on above:Expected: 09/04/2023, Expires: 09/04/2024Start: 46-58-5809HSYAM-19 Vaccine ( season)COVID-19 Vaccine ( season)[facility]: 84-85-9740Xarexenqx vaccinationNONC HealthcareStart: 43-65-8520ThsaompkvBlanchard Valley Health System Start: 72-41-6337Hhhfk X-ray abdomenXR abdomen min 2VMercy Health St. Rita's Medical Centertart: 70-10-1002EY Abdomen ViewsMercy Health St. Rita's Medical Centertart: 63-85-6837PGkB,Tdap and Td Vaccines (1 - Tdap)DTaP,Tdap and Td Vaccines (1 - Tdap)[facility] [employer] SystemStart: 96-77-6697Xxfvd BMI Follow Up PlanAdult BMI Follow Up PlanProSamaritan Hospital SystemStart: 01-54-7153Vdsxjwwgkl Screening Depression ScreeningProMemorial Health Systemtart: 65-34-1906Rdvkmbdvs for malignant neoplasm of colonNONC HealthcareStart: 50-52-7531Yycvndy Counseling Tobacco CounselingProOhiohealth [facility] End: 16-58-0524Crftbmqh identified in Urine by CultureUrine Culture Microbiology Routine Hematuria, microscopic 1 Occurrences starting 11/07/2023 until [facility] Work Phone: Comment on above:1 Occurrences starting 11/07/2023 until 11/06/2024 End: 56-82-3050Izogmanw identified in Urine by CultureUrine Culture Microbiology Routine Malignant neoplasm of overlapping sites of bladder ([facility]) 1 Oc currences starting 11/13/2023 until 11/12/2024[facility] Work Phone: Comment on above:1 Occurrences starting 11/13/2023 until 5Bacteria identified in Urine by CultureUrine Culture Microbiology Routine Malignant neoplasm of overlapping sites of bladder ([facility]- [facility]) 11/13/2023 10:20 PM [facility] MemorialComprehensive metabolic 2000 panel - Serum or PlasmaBlanchard Valley Health System End: 21-36-2388KbqydcoqXofulqqa Pathology and Cytology Routine Hematuria, microscopic 1 Occurrences starting 09/04/2023 until 09/03/2024[facility] SystemComment on above:1 Occurrences starting 09/04/2023 until 09/03/2024Patient EducationUniversity [facility] Work Phone: Patient referralUniversity Hospitals [facility] Work Phone: [facility] Immunizations Immunization DateImmunizationNotesCare DhfnlmjdLbgmjkod70-61-8132ddoidi vaccine Yajaira Suh MD Work Phone: [facility] CenterHejcvxnepv95-39-7951bqxkxr vaccine recombinant Lida Suh MD Work Phone: [facility] Payers DatePayer CategoryPayerPolicy [id number] HMOUNITEDOHIOHEALTH [facility] MEDICAID Member Subscriber Plan / Payer (Effective 2023-Present) Name: [place] Relation to Subscriber: Self Name: [place] Abreu Payer ID: [id number] (NAIC) Group ID: [id number] Type: Not on file Address: [address] [id number] 2023Medicaid [id number] Health Insurance [id number] [id number] 2.0.1.967484.3.57[id number] 2.0.1.048003.3.57[id number] 2.0.1.382767.3.57[id number] 2.0.1.365844.3.57[id number] 2.0.1.970899.3.57[id number] 2.0.1.183428.3.57[id number] 2.0.1.950213.3.57[id number] 2.0.1.135401.3.579.2.268017-32-1822Yzvabhq80740315 2.0.1.380634.3.579.2.911732-21-1922Brianqo18719993 2.16.840.1.473356.3.579.2.550834-66-0204Hrbbhgb0308513 2..840.1.626197.3.579.2.423273-82-2554Jbzgizl8486010 2..840.1.109040.3.579.2.453765-50-9301Hmlujgj1794928 2..840.1.449351.3.579.2.084377-01-0157Pozsnqz000042726 2..840.1.603402.3.579.2.295176-24-2954Trdikls05215648 2..840.1.026181.3.579.2.666229-75-2818Pvbfcwo71248791 2..0.1.670733.3.579.2.641602-39-6398Scotrux15270184 2..0.1.292377.3.579.2.975228-13-5036Mhnylkq23976716 2..0.1.852906.3.579.2.763836-07-1854Uowzray56496914 2.0.1.336393.3.579.2.604704-17-7201Bcsqbcg85821474 2.0.1.225160.3.579.2.83966-08-0835Bkol-dkv me486030-1744-1s1o-v6v1-476gg224v7qn26-80-0804Qgxgziu167542152Khleemh9969449 2.840.1.045700.3.579.2.840Pdelmnq32648926 2.840.1.446627.3.579.2.531 Social History DateTypeDetailFacilityStart: 09-04-2022 End: 82-97-9094Odllfdy smoking status NHISSmoker (finding)[id number] Ass[facility] BirthAden[facility] Centertart: 07-17-2023 End: 67-68-1123Nzyzhgd smoking status NHISSmokes tobacco dailyNOMS Healthcare Start: 09-73-2801Tbymjgi of tobacco useCigarette SmokerNONC HealthcareStart: 07-17-2023 End: 43-32-8980Izvtiygmya smoked current (pack per day) - Ihkozkat5YHHU HealthcareStart: 08-21-2023 End: [id number] intakeEx-drinker (finding)[facility]OMS HealthcareStart: 07-22-2023 End: 19-03-0836Afelyay use panelNONC HealthcareStart: [id number] Comment caffeine 1-2 cups per dayNOMS HealthcareStart: 40-30-5991Fbp Assigned At Not on fileNOMS HealthcareHow often do you need to have someone help you when you read instructions, pamphlets, or other written material from your doctor or pharmacy [SILS]NeverNOMS HealthcareDo you belong to any clubs or organizations such as yazdanism groups, unions, fraternal or athletic groups, or school groups?No NOMS HealthcareAre you now , , , , never or living with a partner?Living with partnerNOMS HealthcareHow often to you have a drink containing alcohol?NeverNOMS HealthcareDo you feel stress - tense, restless, nervous, or anxious, or unable to sleep at night because yourmind is troubled all the time - these days [OSQ]Not at allNOMS Healthcare(I/We) worried whether (my/our) food would run out before (I/we) got money to buy more. Sometimes trueNOMS HealthcareIn the past 12 months, was there a time when you were not able to pay the mortgage or rent on time?YesNOMS HealthcareStart: 09-04-2023 End: [id number] use and exposureSmokeless tobacco non-userProPrinceton Baptist Medical Center Health SystemStart: 08-19-2024 End: 66-22-0404Cbynuncan beverage intakeLifetime non-drinker (finding)[facility] CampusHow often to you have a drink containing alcohol?Monthly or less [facility] CampusHow many standard drinks containing alcohol do you have on a typical day?1 or 2PAtrium Health SouthParktart: 08-06-2023 End: 12-65-2989TxdWhus (finding)[facility] CampusTobacco smoking status NHISTobacco smoking consumption unknownBon Secours [facility] Health Goals DatePatient GoalDesired Activity/StatePersonal health goal Clinical Notes 08-21-2023 to 12-30-2024 Note Date & [id number] Miscellaneous Notes* Telephone Encounter - Lida Suh MD - 12/30/2024 8:30 AM EDT Cysto local [place] 6 months diagnosis history urothelial carcinoma documented in this encounterSt. [facility]06-18-2025 Telephone encounter Note* Telephone Encounter - Lida Suh MD - 12/30/2024 8:30 AM EDT Cysto local [place] 6 months diagnosis history urothelial carcinoma [facility]05-30-2025 Miscellaneous Notes* Telephone Encounter - Carol Robert CNA - 12/11/2024 3:50 PM EDT Pt calls stating he is scheduled for a Cysto 12/30/24, pt states that last time he had cysto you prescribed pain meds before procedure. Pt is asking for pain meds ahead of time again. Please advice * Telephone Encounter - Lida Suh MD - 12/11/2024 3:50 PM EDT Actually we will give him a Percocet when he arrives and after we get his consent. Someone must drive him home. * Telephone Encounter - Carol Robert CNA - 12/11/2024 3:50 PM EDT Pt informed documented in this encounterSt. [facility]05-30-2025 Telephone encounter Note* Telephone Encounter - Carol Robert CNA - 12/11/2024 3:50 PM EDT Pt calls stating he is scheduled for a Cysto 12/30/24, pt states that last time he had cysto you prescribed pain meds before procedure. Pt is asking for pain meds ahead of time again. Please advice [facility]05-30-2025 Telephone encounter Note* Telephone Encounter - Lida Suh MD - 12/11/2024 3:50 PM EDT Actually we will give him a Percocet when he arrives and after we get his consent. Someone must drive him home. [facility]05-30-2025 Telephone encounter Note* Telephone Encounter - Carol Robert CNA - 12/11/2024 3:50 PM EDT Pt informed [facility]03-05-2025 Miscellaneous Notes* Telephone Encounter - Heather Mcdaniels - 09/16/2024 10:36 AM EST Patient called to inquire if his cystoscopy will be every 6 months. I advised pt per Dr. Suh note: Cysto local [place] setup 6 months diagnosis history bladder carcinoma. Advised pt that Yoselyn Dr. Suh rug designer will call him when it is time to schedule his cysto. Pt advised understanding of this. documented in this encounterProOhiohealth [facility]03-05-2025 Telephone encounter Note* Telephone Encounter - Heather Mcdaniels - 09/16/2024 10:36 AM EST Patient called to inquire if his cystoscopy will be every 6 months. I advised pt per Dr. Suh note: Cysto local [place] setup 6 months diagnosis history bladder carcinoma. Advised pt that Yoselyn Dr. Suh rug designer will call him when it is time to schedule his cysto. Pt advised understanding of this. [facility]02-05-2025 Evaluation + Plan note* Assessment & Plan Note - Lida Suh MD - 08/19/2024 4:27 PM ESTAssociated Problem(s): Elevated PSA He does have some difficulty urinating in the morning. I did ask if it is bad enough for him to take it daily medication it was not. It is only isolated. He voids well otherwise. He is happy with thecurrent state. [facility]02-05-2025 Miscellaneous Notes* Assessment & Plan Note - Lida Suh MD - 08/19/2024 4:27 PM ESTAssociated Problem(s): Elevated PSA He does have some difficulty urinating in the morning. I did ask if it is bad enough for him to take it daily medication it was not. It is only isolated. He voids well otherwise. He is happy with thecurrent state. documented in this encounterSt. Mary's [facility]02-05-2025 History of Present illness Narrative* Lida Suh MD - 08/19/2024 3:45 PM EST Images from the original note were not included. [address] [place] [address] A [facility] [id number] Patient: [place] Abreu Date of : 1970 [...] , EXTPOCUBAC , EXTPOCUTREP , EXTPOCUPH , EXTPOCUL EE in the last 72 hours. Last BUN [...] past medical history, past social history, past surgicalhistory and problem list. Past Medical History: Diagnosis Date Bipolar disorder ([facility]) Bladder cancer ([facility]) Chronic constipation Depression Hyperlipidemia Visual impairment Past Surgical History: Procedure Laterality Date CHOLECYSTECTOMY 2020 COLONOSCOPY CYSTOSCOPY N/A 06/17/2024 Performed by Lida Suh MD at [facility] CYSTOSCOPY N/A 03/18/2024 Performed by Lida Suh MD at [facility] CYSTOSCOPY N/A 10/30/2023 Performed by Lida Suh MD at [facility] CYSTOSCOPY TRANSURETHRAL RESECTION BLADDER TUMOR N/A 10/30/2023 Performed by Lida Suh MD at [facility] LIPOMA RESECTION several History reviewed. No pertinent family history. Current Outpatient Medications Medication Sig Dispense Refill atorvastatin (LIPITOR) 10 mg tablet Take 1 tablet (10 mg total) by mouth in the morning. cholecalciferol, vitamin D3, (VITAMIN D3) 5,000 units capsule Take 1 capsule (5,000 Units total) bymouth in the morning. citalopram (CeleXA) 20 mg [...] voids well otherwise. He is happy with thecurrent state. Relevant Orders Prostatic specific antigen, diagnostic [...] you for your understanding. documented in this [facility]01-16-2025 Instructions* Patient Instructions* Brooklynn Yeager NP - 07/30/2024 8:40 AM EST Get fasting labs Continue with urology documented in this [facility]12-04-2024 Miscellaneous Notes* Telephone Encounter - Lida Suh MD - 06/17/2024 11:59 AM EST Cysto local [place] setup 6 months diagnosis history bladder carcinoma. documented in this [facility]12-04-2024 Telephone encounter Note* Telephone Encounter - Lida Suh MD - 06/17/2024 11:59 AM EST Cysto local [place] setup 6 months diagnosis history bladder carcinoma. [facility] [employer] [id number] History of Present illness Narrative* BARBARA PETERS - 03/30/2024 9:00 AM EDT A week or two ago pt had hit his head while working on a wall, would like his head check. * Brooklynn Yeager NP - 03/30/2024 9:00 AM EDT Images from the original note were not [...] Abdominal pain 09/26/2023 Abnormal TSH Bipolar disorder ([facility]) 07/22/2023 Chicken pox Cholelithiasis Constipation, chronic COVID-19 virus infection DDD (degenerative disc disease), lumbar Diverticulitis 06/26/2023 Genital warts 09/26/2023 History of HPV infection 09/26/2023 HLD (hyperlipidemia) ([facility]) 07/22/2023 Insomnia 09/26/2023 Lipoma 09/26/2023 [...] Bridge of nose with palpable lump: approx 4mgk8eg, non tender no induration noted no fluctuance [...] s/s of CHI, no open wound noted * Brooklynn Yeager NP - 03/30/2024 8:40 AM EDTAssociated Problem(s): Contusion of scalp No acute s/s of CHI, no open wound noted * Brooklynn Yeager NP - 03/30/2024 8:40 AM EDTAssociated Problem(s): Lump of skin He did ask dermatology about removal of this, they recommended plastics At this point he would like to wait until after first of the year At that point will refer to Plastics No s/s ulceration of any topical abnormalities * Brooklynn Yeager NP - 03/30/2024 8:38 AM EDTAssociated Problem(s): Bipolar disorder ([facility]CC) No changes in meds or doses Feels good Will fu in 4 months, sooner if needs something * Brooklynn Yeager NP - 03/30/2024 8:37 AM EDTAssociated Problem(s): Malignant neoplasm of overlapping sites of bladder (CMS/HCC) Continue with Urology for mgmt of this condition documented in this encounterParkland Health [id number] Miscellaneous Notes* Telephone Encounter - Lida Suh MD - 03/18/2024 8:35 AM EDT Cysto local [place] 3 months diagnosis history bladder carcinoma. documented in this encounterSt. [facility]09-04-2024 Telephone encounter Note* Telephone Encounter - Lida Suh MD - 03/18/2024 8:35 AM EDT Cysto local [place] 3 months diagnosis history bladder carcinoma. [facility]09-03-2024 Nurse Note* Perioperative Nursing Note - Tiffanie Altamirano RN - 03/17/2024 10:13 AM EDT Preoperative Education Checklist- General Surgery date: 03/18/24 Surgery time: 8a Arrival time: 7a 1. Bring a photo ID and your insurance card with you the day of surgery. You will check in at the main lobby of the [facility]- registration desk is straight ahead as soon as you walk in. Tell them you are here for surgery. 2. If you have a Living Will/Durable Power of [place] Worker for Health Care that is not on [...] after you have bathed. 5. NO nail jordanian/acrylic on at least one finger. If you are having a hand, wrist or foot surgery then all nail jordanian and artificial/acrylic nails must be removed from [...] WITH YOU ANY DEVICES YOU MAY NEED: ROBE hose, ice machine, sling/swath, brace or special [...] least 8 hours and marijuana for 24 hoursprior to arrival for your surgery. 16. If [...] please call the Preadmission Testing office at [phone], Mon.-Fri. 7 a.m.-3 p.m. Leave a voicemail if needed. Pre-Surgery Instructions: Medication Instructions atorvastatin (LIPITOR) 10 mg tablet Stop taking 0 days prior to procedure lamoTRIgine (LaMICtal) 100 mg tablet Take morning of procedure citalopram (CeleXA) 20 mg tablet Stop taking 0 days prior to procedure [facility] [employer] [id number] Miscellaneous Notes* Perioperative Nursing Note - Tiffanie Altamirano RN - 03/17/2024 10:13 AM EDT Preoperative Education Checklist- General Surgery date: 03/18/24 Surgery time: 8a Arrival time: 7a 1. Bring a photo ID and your insurance card with you the day of surgery. You will check in at the main lobby of the [facility]- registration desk is straight ahead as soon as you walk in. Tell them you are here for surgery. 2. If you have a Living Will/Durable Power of [place] Worker for Health Care that is not on [...] after you have bathed. 5. NO nail jordanian/acrylic on at least one finger. If you are having a hand, wrist or foot surgery then all nail jordanian and artificial/acrylic nails must be removed from [...] WITH YOU ANY DEVICES YOU MAY NEED: ROBE hose, ice machine, sling/swath, brace or special [...] least 8 hours and marijuana for 24 hoursprior to arrival for your surgery. 16. If [...] please call the Preadmission Testing office at [phone], Mon.-Fri. 7 a.m.-3 p.m. Leave a voicemail if needed. Pre-Surgery Instructions: Medication Instructions atorvastatin (LIPITOR) 10 mg tablet Stop taking 0 days prior to procedure lamoTRIgine (LaMICtal) 100 mg tablet Take morning of procedure citalopram (CeleXA) 20 mg tablet Stop taking 0 days prior to procedure documented in this encounterSt. [facility]07-[facility]-2024 Evaluation + Plan note* Assessment & Plan Note - Lida Suh MD - 01/29/2024 4:47 PM EDT Associated Problem(s): Malignant neoplasm of overlapping sites of bladder (CMS-HCC) Postop day of have clots and clot retention. This has resolved. He was started on finasteride and Flomax at the time of the ER visit. He was not on these before. He can stop those. [facility]07-17-2024 Miscellaneous Notes* Assessment & Plan Note - Lida Suh MD - 01/29/2024 4:47 PM EDTAssociated Problem(s): Malignant neoplasm of overlapping sites of bladder (CMS-HCC) Postop day of have clots and clot retention. This has resolved. He was started on finasteride and Flomax at the time of the ER visit. He was not on these before. He can stop those. * Assessment & Plan Note - Lida Suh MD - 01/29/2024 4:46 PM EDT Associated Problem(s): Elevated PSA He can stop his Flomax as well as finasteride documented in this encounterSt. [facility]07-[facility]-2024 Evaluation + Plan note* Assessment & Plan Note - Lida Suh MD - 01/29/2024 4:46 PM EDT Associated Problem(s): Elevated PSA He can stop his Flomax as well as finasteride [facility]07-17-2024 History of Present illness Narrative* Lida Suh MD - 01/29/2024 3:45 PM EDT Images from the original note were not included. [address] [place] [address] A [facility] [id number] Patient: [place] Abreu Date of : 1970 [...] , EXTPOCUBAC , EXTPOCUTREP , EXTPOCUPH , EXTPOCUL EE in the last 72 hours. Last BUN [...] past medical history, past social history, past surgicalhistory and problem list. Past Medical History: Diagnosis Date Bipolar disorder ([facility]) Chronic constipation Depression Hyperlipidemia Visual impairment Past Surgical History: Procedure Laterality Date CHOLECYSTECTOMY 2020 COLONOSCOPY CYSTOSCOPY N/A 10/30/2023 Performed by Lida Suh MD at [facility] CYSTOSCOPY TRANSURETHRAL RESECTION BLADDER TUMOR N/A 10/30/2023 Performed by Lida Suh MD at [facility] History reviewed. No pertinent family history. Current Outpatient Medications Medication Sig Dispense Refill citalopram (CeleXA) 20 mg tablet Take 1 tablet (20 mg total) by mouth in the morning. ketorolac (TORADOL) 10 mg tablet Take 1 tablet (10 mg total) by mouth every 6 (six) hours as neededfor pain. 20 tablet 0 lamoTRIgine (LaMICtal) 100 [...] you for your understanding. documented in this encounterSt. [facility]07-[facility]-2024 Miscellaneous Notes* Telephone Encounter - RADHA Ca - 01/21/2024 9:49 AM EDT Patient calls in he is out of his Tamsulosin and Finasteride which he states he was prescribed in the ER. He is asking if you can refill it until he sees him in the office on Saturday01/29/24 - He was in the [place] ER - He was urinating blood clots causing him to go into Urinary retention. [facility] in [place] * Telephone Encounter - Lida Suh MD - 01/21/2024 9:49 AM EDT These were both refilled by me on December 18 to the appropriate pharmacy * Telephone Encounter - RADHA Ca - 01/21/2024 9:49 AM EDT Patient informed to call [facility] to have them fill, as they may be on file. documented in this encounterSt. [facility]07-09-2024 Telephone encounter Note* Telephone Encounter - RADHA Ca - 01/21/2024 9:49 AM EDT Patient calls in he is out of his Tamsulosin and Finasteride which he states he was prescribed in the ER. He is asking if you can refill it until he sees him in the office on Saturday01/29/24 - He was in the [place] ER - He was urinating blood clots causing him to go into Urinary retention. [facility] [place] [facility]07-09-2024 Telephone encounter Note* Telephone Encounter - Lida Suh MD - 01/21/2024 9:49 AM EDT These were both refilled by me on December 18 to the appropriate pharmacy [facility]07-09-2024 Telephone encounter Note* Telephone Encounter - RADHA Ca - 01/21/2024 9:49 AM EDT Patient informed to call [facility] to have them fill, as they may be on file. [facility] [employer] [id number] Miscellaneous Notes* Telephone Encounter - RADHA Connolly - 12/19/2023 3:12 PM EDT Richard from [facility] at [facility]. Olsen's office in [place] is asking if pt is to continue on the Flomax and the Proscar for more than a month? He was prescribed these at the ER and was only given 30 days worth of each. Pt was to see you yesterday, but is now scheduled for 01/29/2024. * Telephone Encounter - Lida Suh MD - 12/19/2023 3:12 PM EDT I refilled those prescriptions when we see him in January we can determine what to do * Telephone Encounter - RADHA Connolly - 12/19/2023 3:12 PM EDT Richard was notified and will let pt know. documented in this encounterSt. [facility]06-[facility]-2024 Telephone encounter Note* Telephone Encounter - RADHA Connolly - 12/19/2023 3:12 PM EDT Richard from [facility] at Dr. Olsen's office in [place] is asking if pt is to continue on the Flomax and the Proscar for more than a month? He was prescribed these at the ER and was only given 30 days worth of each. Pt was to see you yesterday, but is now scheduled for 01/29/2024. [facility]06-06-2024 Telephone encounter Note* Telephone Encounter - Lida Suh MD - 12/19/2023 3:12 PM EDT I refilled those prescriptions when we see him in January we can determine what to do [facility]06-06-2024 Telephone encounter Note* Telephone Encounter - RADHA Connolly - 12/19/2023 3:12 PM EDT Richard was notified and will let pt know. [facility]05-01-2024 Evaluation + Plan note* Assessment & Plan Note - Lida Suh MD - 11/13/2023 11:53 AM EDTAssociated Problem(s): Malignant neoplasm of overlapping sites of bladder (CMS-HCC) Patient with incidental finding CT urogram some bony changes. PSA is really not the elevated actually PSA is better now. Talked about potential metastasis. Certainly need a bone scan to evaluate. Return clinic. [facility]05-01-2024 Miscellaneous Notes* Assessment & Plan Note - Lida Suh MD - 11/13/2023 11:53 AM EDTAssociated Problem(s): Malignant neoplasm of overlapping sites of bladder (CMS-HCC) Patient with incidental finding CT urogram some bony changes. PSA is really not the elevated actually PSA is better now. Talked about potential metastasis. Certainly need a bone scan to evaluate. Return clinic. documented in this encounterSt. [facility]05-[facility]-2024 Miscellaneous Notes* Telephone Encounter - Lida Suh MD - 11/13/2023 11:53 AM EDT 3-4 months cysto local [place] diagnosis history urothelial carcinoma. Urine for fish and cytology 2 weeks prior. documented in this encounterSt. [facility]05-01-2024 Telephone encounter Note* Telephone Encounter - Lida Suh MD - 11/13/2023 11:53 AM EDT 3-4 months cysto local [place] diagnosis history urothelial carcinoma. Urine for fish and cytology [address] [facility]05-[facility]-2024 History of Present illness Narrative* Lida Suh MD - 11/13/2023 11:45 AM EDT Images from the original note were not included. [address] [place] [address] [facility] [id number] Patient: [place] Abreu Date of : 1970 [...] past medical history, past social history, past surgicalhistory and problem list. Past Medical History: Diagnosis Date Bipolar disorder ([facility]) Chronic constipation Depression Hyperlipidemia Visual impairment Past Surgical History: Procedure Laterality Date CHOLECYSTECTOMY 2020 COLONOSCOPY CYSTOSCOPY N/A 10/30/2023 Performed by Lida Suh MD at [facility] CYSTOSCOPY TRANSURETHRAL RESECTION BLADDER TUMOR N/A 10/30/2023 Performed by Lida Suh MD at [facility] History reviewed. No pertinent family history. Current Outpatient Medications Medication Sig Dispense Refill atorvastatin (LIPITOR) 10 mg tablet Take 1 tablet (10 mg total) by mouth in the morning. citalopram (CeleXA) 20 mg tablet Take 1 tablet (20 mg total) by mouth in the morning. lamoTRIgine (LaMICtal) 100 mg tablet Take 1 tablet (100 mg total) by mouth in the morning. marek-phsal-hyo (URO-MP) 118-10-40.8-36 mg capsule Take 1 capsule [...] scan whole body; Future Other orders - libanlhhf-jawkj-cvb (URO-MP) 118-10-40.8-36 mg capsule; Take 1 capsule by mouth in themorning and 1 capsule at noon and 1 [...] you for your understanding. documented in this encounterSt. [facility]04-[facility]-2024 Miscellaneous Notes* Telephone Encounter - RADHA Ca - 11/07/2023 2:54 PM EDT Patient is having intermittent blood with urination. Patient also states he is urinating frequently and sometimes its a very good stream but he oconnell atthe end of the stream, then he tries to push a little more and it drips blood. Patient just wants to be sure things are going as it should. Pt states he lives in [place] Pt's f/u appt is scheduled for 11/13/2023 He is also asking about his path results. * Telephone Encounter - Lida Suh MD - 11/07/2023 2:54 PM EDT Findings are very typical postprocedure. Will review pathology at office appointment. Should he wish I did place an order for urine culture he can always have that obtained. * Telephone Encounter - RADHA Ca - 11/07/2023 2:54 PM EDT Patient was informed documented in this encounterSt. [facility]04-[facility]-2024 Telephone encounter Note* Telephone Encounter - RADHA Ca - 11/07/2023 2:54 PM EDT Patient is having intermittent blood with urination. Patient also states he is urinating frequently and sometimes its a very good stream but he oconnell atthe end of the stream, then he tries to push a little more and it drips blood. Patient just wants to be sure things are going as it should. Pt states he lives in [facility]'s f/u appt is scheduled for 11/13/2023 He is also asking about his path results. [facility]04-25-2024 Telephone encounter Note* Telephone Encounter - Lida Suh MD - 11/07/2023 2:54 PM EDT Findings are very typical postprocedure. Will review pathology at office appointment. Should he wish I did place an order for urine culture he can always have that obtained. [facility]04-25-2024 Telephone encounter Note* Telephone Encounter - RADHA Ca - 11/07/2023 2:54 PM EDT Patient was informed [facility]04-18-2024 Miscellaneous Notes* Telephone Encounter - Guanako Martines CMA - 10/31/2023 2:29 PM EDT Patient called in stating he is in a lot of pain every time he goes to urinate. [place] would like something sent over to the pharmacy on file. Please advise * Telephone Encounter - Lida Suh MD - 10/31/2023 2:29 PM EDT Pyridium sent to his pharmacy documented in this encounterSt. [facility]04-[facility]-2024 Telephone encounter Note* Telephone Encounter - Guanako Martines CMA - 10/31/2023 2:29 PM EDT Patient called in stating he is in a lot of pain every time he goes to urinate. [place] would like something sent over to the pharmacy on file. Please advise [facility]04-18-2024 Telephone encounter Note* Telephone Encounter - Lida Suh MD - 10/31/2023 2:29 PM EDT Pyridium sent to his pharmacy [facility]04-17-2024 Miscellaneous Notes* Telephone Encounter - Lida Suh MD - 10/30/2023 10:55 AM EDT Patient needs to follow up in the office in [place] 2-3 weeks or so. Follow up on the TURBT. documented in [facility] Telephone encounter Note* Telephone Encounter - Lida Suh MD - 10/30/2023 10:55 AM EDT Patient needs to follow up in the office in [place] 2-3 weeks or so. [facility] [employer] [id number] Instructions* Patient Instructions* Tiffanie Altamirano RN - 10/17/2023 9:00 AM EDT Preoperative Education Checklist- General Surgery date: 10/30/23 Surgery time: 930a Arrival time: 730a 1. Bring a photo ID and your insurance card with you the day of surgery. You will check in at the main lobby of the [facility]- registration desk is straight ahead as soon as you walk in. Tell them you are here for surgery. 2. If you have a Living Will/Durable Power of [place] Worker for Health Care that is not on [...] after you have bathed. 5. NO nail jordanian/acrylic on at least one finger. If you are having a hand, wrist or foot surgery then all nail jordanian and artificial/acrylic nails must be removed from [...] WITH YOU ANY DEVICES YOU MAY NEED: ROBE hose, ice machine, sling/swath, brace or special [...] least 8 hours and marijuana for 24 hoursprior to arrival for your surgery. 16. If [...] please call the Preadmission Testing office at [phone], Mon.-Fri. 7 a.m.-3 p.m. Leave a voicemail [...] after surgery- do not stop unless directed refugio your physician. You may also be given [...] appointment with your doctor. documented in [facility] Miscellaneous Notes* Telephone Encounter - Lida Suh MD - 09/04/2023 2:40 PM EST Cysto potential retrograde pyelogram. [facility] anesthesia [place]. Possible biopsy. Diagnosis is hematuria. documented in this [facility]02-21-2024 Telephone encounter Note* Telephone Encounter - Lida Suh MD - 09/04/2023 2:40 PM EST Cysto potential retrograde pyelogram. [facility] anesthesia [place]. Possible biopsy. Diagnosis is hematuria. [facility]02-21-2024 Evaluation + Plan note* Assessment & Plan Note - Lida Suh MD - 09/04/2023 2:38 PM ESTAssociated Problem(s): Hematuria, microscopic We reviewed today than [...] system. The patient acknowledges this and agrees. [facility]02-21-2024 Miscellaneous Notes* Assessment & Plan Note - Lida Suh MD - 09/04/2023 2:38 PM ESTAssociated Problem(s): Hematuria, microscopic We reviewed today than [...] acknowledges this and agrees. documented in this encounterSt. [facility] History of Present illness Narrative* Lida Suh MD - 09/04/2023 1:30 PM EST Images from the original note were not included. [address] [place] [address] [facility] [id number] Patient: [place] Abreu Date of : 1970 Encounter Date: 09/04/2023 History of Present Illness: The patient is a 52 y.o. male, a new patient consultation, and is here for history of age elevationof PSA. He is 52. PSA 3.5. No [...] , EXTPOCUBAC , EXTPOCUTREP , EXTPOCUPH , EXTPOCUL EE in the last 72 hours. Last BUN [...] past medical history, past social history, past surgicalhistory and problem list. History reviewed. No pertinent [...] denies change in appetite, weight loss or gain,malaise (depression), chills, fever, or diaphoresis (sweating). Eyes: [...] weakness, dizziness, loss of consciousness, transient ischemic symptoms,and seizures. Integument: Patient denies rashes and non-healing [...] you for your understanding. documented in this encounterSt. [facility] Telephone encounter Note* Telephone Encounter - BARBARA PETERS - 08/21/2023 11:23 AM EST pt called needing a refill on his lamoTRIgine (LaMICtal) 100 MG tablet and citalopram (CeleXA) 20 MG tablet NOMS [id number] Miscellaneous Notes* Telephone Encounter - BARBARA PETERS - 08/21/2023 11:23 AM EST pt called needing a refill on his lamoTRIgine (LaMICtal) 100 MG tablet and citalopram (CeleXA) 20 MG tablet documented in this encounterNONC HealthcareEvaluation noteNo assessment information availableOhiohealth Grant Medical Center Work Phone: Evaluation note* Diagnosis Bipolar affective disorder, remission status [...] microscopic Microscopic hematuria [facility] Diagnosis Malignant neoplasm of overlapping sites of bladder (CMS-HCC)- Primary Urinary incontinence, unspecified type- Primary Elevated PSA Elevated prostate specific antigen (PSA) Malignant neoplasm of overlapping sites of bladder (CMS-HCC) Malignant neoplasm of overlapping sites of bladder (CMS-HCC) [facility]* Diagnosis Elevated PSA- Primary Elevated [...] of bladder (CMS-HCC) [facility]* Diagnosis Diverticulitis- Primary Diverticulitis of [...] [facility] Diagnosis Diverticulitis- Primary Diverticulitis of [...] Vitamin D deficiency documented in this encounter [facility] HealthcareEvaluation note* Diagnosis Onset Date Resolution Status Admit Date Bipolar disorder acuteOctober 2024 7:54amMalignant neoplasm of overlapping sites of bladder acuteOctober 2024 7:54amMixed hyperlipidemiaacuteOctober 2024 7:54am Obesity (BMI 30-39.9)acuteOctober 2024 7:54amScreening for prostate cancer acuteOctober 2024 7:54amTobacco useacuteOctober 2024 7:54am [facility] Work Phone: History of Present illness Narrative* Brooklynn Yeager NP [...] Abdominal pain 09/26/2023 Abnormal TSH Bipolar disorder ([facility]) 07/22/2023 Chicken pox Cholelithiasis Constipation, chronic COVID-19 virus infection DDD (degenerative disc disease), lumbar Diverticulitis 06/26/2023 Genital warts 09/26/2023 History of HPV infection 09/26/2023 HLD (hyperlipidemia) ([facility]) 07/22/2023 Insomnia 09/26/2023 Lipoma 09/26/2023 [...] of the risks of continued smoking: stroke, NV, all forms of cancer, lung disease, and [...] of the risks of continued smoking: stroke, NV, all forms of cancer, lung disease, and [...] twice daily until constipation is resolved.[facility] Work Phone: InstructionsNot on filedocumented in [...] on filedocumented in this encounter [facility] SystemReason for referral (narrative)No reason for referral information availableGerman Hospital Work Phone: Summary Purpose Family History No Family History Records Found Relationship Condition Age at Onset Recorded Date/T clay Not Specified Mass of neck Unknown Heart valve diseaseUnknownfatherDeceasedUnknownbrotherHistory of partial surgical removal of colonUnknown Relationship Condition Age at Onset Recorded Date/T clay mother Mass of neck Unknown Heart valve diseaseUnknownfatherDeceasedUnknownbrotherHistory of partial surgical removal of colonUnknown Advance Directives No Advanced Directives Records Found Advance Directive Response Recorded Date/ Time Advance Directives No March 9:36pm Advance Directive Response Recorded Date/ Time Advance Directives No March 10:36pm Date ActivatedDate InactivatedComments12/01/2023 12:29 PM12/02/2023 5:55 PMDate ActivatedDate InactivatedComments12/01/2023 12:29 PM12/02/2023 5:55 PM Chief Complaint and Reason for Visit Chief Complaint Dizzy, Fatigue, Weak ness Chief Complaint Dizzy, Fatigue, Weak ness family HX of colon cancer Multiple Masses Chief Complaint Admit Date 6M April 28, 2025 7 :54am Reason for Visit Admit Date Bipolar disorder April 28, 2025 7 :54am Malignant neoplasm of overlapping sites of bladder April 28, 2025 7:54am Mixed hyperlipidemia April 28, 2025 7:54am Obesity (BMI 30-39.9) April 28, 2025 7:54am Screening for prostate cancer April 282024 7:54am Tobacco use April 28, 2025 7 :54am Reason for Referral SpecialtyDiagnoses / ProceduresReferred By ContactReferred To ContactRadiology Diagnoses Malignant neoplasm of overlapping sites of bladder (CMS-HCC) Elevated PSA Procedures NM bone scan whole body Lida Suh MD [address] [place] [id number] [facility] [address] [place] [address] Phone: [phone] Referral IDStatusReasonStart DateExpiration DateVisits RequestedVisits [id number] Nurse Review/[id number] / ProceduresReferred By ContactReferred To ContactRadiology Diagnoses Hematuria, microscopic Procedures CT urogram Lida Suh MD [address] [place] [address] Referral IDStatusReasonStart DateExpiration DateVisits RequestedVisits [id number] Review/[id number] / ProceduresReferred By ContactReferred To Contact Diagnoses Urinary incontinence, unspecified type Procedures Measure post void residual Lida Suh MD [address] [place] [address] Referral IDStatusReasonStart DateExpiration DateVisits RequestedVisits [id number] Review/ Additional Source Comments (unrecognized sect ion and content) No Status Records FoundNo Status Records FoundNo Status Records FoundNo Status Records FoundNo Status Records FoundNo Status Records FoundNo Status Records FoundNo Status Records Found INFORMATION SOURCE (unrecogn ized section and content) DATE CREATED AUTHOR 02/04/2018 [facility] DATE CREATED AUTHOR AUTHOR'S ORGANIZ ATION 10/02/2022 [facility] DATE CREATED AUTHOR AUTHOR'S ORGANIZ ATION 12/03/2023 [facility] DATE CREATED AUTHOR AUTHOR'S ORGANIZ ATION 12/11/2023 [facility] DATE CREATED AUTHOR AUTHOR'S ORGANIZ ATION 08/22/2024 [facility] DATE CREATED AUTHOR AUTHOR'S ORGANIZ ATION 10/05/2024 [facility] DATE CREATED AUTHOR AUTHOR'S ORGANIZ ATION 01/09/2025 [facility] DATE CREATED AUTHOR AUTHOR'S ORGANIZ ATION 05/01/2025 [facility] Care Teams (unrecognized sec tion and content) Team Status: Inactive Member Role Status Dates Brooklynn Yeager Primary Care Provider Active Hernandez Lares Jr, MDEmergency ProviderActive Team Status: Active Member Role Status Dates Brooklynn Yeager Primary Care Provider Active Team Status: Inactive Member Role Status Dates Kevin Sheehan MD Attending Provider Active Team Status: Inactive Member Role Status Dates Kevin Sheehan MD Attending Provider Active [facility] Care ProviderActiveTeam MemberRelationshipSpecialtyStart DateEnd Date Eusebio Schneider MD [address] [place] [address] PCP - [facility] Medicine07/16/23 Brooklynn Yeager NP [address] [place] [address] Nurse PractitionerP[facility]05/15/23Team MemberRelationshipSpecialtyStart DateEnd Date Eusebio Schneider MD [address] [place] [address] PCP - GeneralFamily Medicine07/16/23 Brooklynn Yeager NP [address] [place] [address] Nurse PractitionerGaebler Children'S Center Gkxmxnye82/1/23Team MemberRelationshipSpecialtyStart DateEnd Date Eusebio Schneiedr MD [address] [place] [address] PCP - [facility]09/26/23 Brooklynn Yeager NP [address] [place] [address] PCP - [facility]01/13/24 Brooklynn Yeager NP [address] [place] [address] Nurse PractitionerP[facility]05/15/23 Brooklynn Yeager NP [address] [place] [address] Nurse PractitionerPiedmont [facility]09/26/23Team MemberRelationshipSpecialtyStart DateEnd Date Eusebio Schneider MD [address] [place] [address] PCP - [facility]09/26/23 Brooklynn Yeager NP [address] [place] [address] PCP - [facility]01/13/24 Brooklynn Yeager NP [address] [place] [address] Nurse PractitionerP[facility]05/15/23 Brooklynn Yeager NP [address] [place] [address] Nurse PractitionerP[facility]09/26/23Team MemberRelationshipSpecialtyStart DateEnd Date Eusebio Schneider MD [address] [place] [address] PCP - [facility]09/26/23 Brooklynn Yeager NP [address] [place] [address] PCP - [facility]01/13/24 Brooklynn Yeager NP [address] [place] [address] Nurse PractitionerP[facility]05/15/23 Brooklynn Yeager NP [address] [place] [address] Nurse PractitionerP[facility]09/26/23Team MemberRelationshipSpecialtyStart DateEnd Date Eusebio Schneider MD [address] [place] [address] PCP - [facility]09/26/23 Brooklynn Yeager NP [address] [place] [address] PCP - [facility]01/13/24 Brooklynn Yeager NP [address] [place] [address] Nurse PractitionerP[facility]05/15/23 Brooklynn Yeager NP [address] [place] [address] Nurse PractitionerP[facility]09/26/23Team MemberRelationshipSpecialtyStart DateEnd Date Eusebio Schneider MD [address] [place] [address] PCP - [facility]09/26/23 Brooklynn Yeager NP [address] [place] [address] PCP - [facility]01/13/24 Brooklynn Yeager NP [address] [place] [address] Nurse PractitionerP[facility]05/15/23 Brooklynn Yeager NP [address] [place] [address] Nurse PractitionerP[facility]09/26/23Team MemberRelationshipSpecialtyStart DateEnd Date Eusebio Schneider MD [address] [place] [address] PCP - GeneralP[facility]09/26/23 Brooklynn Yeager NP [address] [place] [address] PCP - [facility]01/13/24 Brooklynn Yeager NP [address] [place] [address] Nurse PractitionerFamily Ixthukbb20/1/23 Brooklynn Yeager NP [address] [place] [address] Nurse PractitionerP[facility]09/26/23Team MemberRelationshipSpecialtyStart DateEnd Date Eusebio Schneider MD [address] [place] [address] PCP - [facility]09/26/23 Brooklynn Yeager NP [address] [place] [address] PCP - [facility]01/13/24 Brooklynn Yeager NP [address] [place] [address] Nurse PractitionerP[facility]05/15/23 Brooklynn Yeager NP [address] [place] [address] Nurse PractitionerP[facility]09/26/23Team MemberRelationshipSpecialtyStart DateEnd Date Eusebio Schneider MD [address] [place] [address] PCP - GeneralP[facility] Hospital09/26/23 Brooklynn Yeager NP [address] [place] [address] PCP - [address]1/24 Brooklynn Yeager NP [address] [place] [address] Nurse PractitionerP[facility]05/15/23 Brooklynn Yeager NP [address] [place] [address] Nurse PractitionerP[facility]mont [facility]09/26/23Team MemberRelationshipSpecialtyStart DateEnd Date Eusebio Schneider MD [address] [place] [address] PCP - [facility]09/26/23 Brooklynn Yeager NP [address] [place] [address] PCP - [facility]01/13/24 Brooklynn Yeager NP [address] [place] [address] Nurse PractitionerP[facility]05/15/23 Brooklynn Yeager NP [address] [place] [address] Nurse PractitionerP[facility]09/26/23Team MemberRelationshipSpecialtyStart DateEnd Date Eusebio Schneider MD [address] [place] [address] PCP - [facility]09/26/23 Brooklynn Yeager NP [address] [place] [address] PCP - [facility]01/13/24 Brooklynn Yeager NP [address] [place] [address] Nurse PractitionerFaWellstar [facility]05/15/23 Brooklynn Yeager NP [address] [place] [address] Nurse PractitionerPiedmont [facility] Hospital09/26/23Team MemberRelationshipSpecialtyStart DateEnd Date Brooklynn Yeager [facility] PCP - GeneralNurse Practitioner09/04/23Team MemberRelationshipSpecialtyStart Date End Date Brooklynn Yeager, [facility] [address] [place] [address] PCP - GeneralNurse Practitioner09/04/23Team MemberRelationshipSpecialtyStart Date End Date Brooklynn Yeager, [facility] [address] [place] [address] PCP - GeneralNurse Practitioner09/04/23Team MemberRelationshipSpecialtyStart Date End Date Brooklynn Yeager, [facility] [address] [place] [address] PCP - GeneralNurse Practitioner09/04/23Team MemberRelationshipSpecialtyStart Date End Date Brooklynn Yeager, [facility] [address] [place] [address] PCP - GeneralNurse Practitioner09/04/23Team MemberRelationshipSpecialtyStart Date End Date Brooklynn Yeager, [facility] [address] [place] [address] PCP - GeneralNurse Practitioner09/04/23Team MemberRelationshipSpecialtyStart Date End Date Brooklynn Yeager, [facility] [address] [place] [address] PCP - GeneralNurse Practitioner09/04/23Team MemberRelationshipSpecialtyStart Date End Date Brooklynn Yeager, [facility] [address] [place] [address] PCP - GeneralNurse Practitioner09/04/23Team MemberRelationshipSpecialtyStart Date End Date Brooklynn Yeager, [facility] [address] [place] [address] PCP - GeneralNurse Practitioner09/04/23Team MemberRelationshipSpecialtyStart Date End Date Boroklynn Yeager, [facility] [address] [place] [address] PCP - GeneralNurse Practitioner09/04/23Team MemberRelationshipSpecialtyStart Date End Date Brooklynn Yeager [facility] [address] [place] [address] PCP - GeneralNurse Practitioner09/04/23Team MemberRelationshipSpecialtyStart Date End Date Brooklynn Yeager [facility] [address] [place] [address] PCP - GeneralNurse Practitioner09/04/23Team MemberRelationshipSpecialtyStart Date End Date Brooklynn Yeager [facility] PCP - GeneralNurse Practitioner09/04/23Team MemberRelationshipSpecialtyStart Date End Date Brooklynn Yeager [facility] PCP - GeneralNurse Practitioner09/04/23Team MemberRelationshipSpecialtyStart Date End Date Brooklynn Yeager [facility] PCP - GeneralNurse Practitioner09/04/23Team MemberRelationshipSpecialtyStart Date End Date Brooklynn Yeager [facility] PCP - GeneralNurse Practitioner09/04/23Team MemberRelationshipSpecialtyStart Date End Date Eusebio Schneider MD [address] [place] [address] PCP - [facility]09/26/23 Brooklynn Yeager, ROS[place] [address] [place] [address] PCP - [facility]01/13/24 Brooklynn Yeager NP [address] [place] [address] Nurse PractitionerFaWellstar [facility]05/15/23 Brooklynn Yeager NP [address] [place] [address] Nurse PractitionerP[facility]09/26/23Team MemberRelationshipSpecialtyStart DateEnd Date Brooklynn Yeager [facility] PCP - [facility] [place] Practitioner09/04/23Team MemberRelationshipSpecialtyStart Date End Date Eusebio Schneider MD [address] [place] [address] PCP - [facility]09/26/23 Brooklynn Yeager NP [address] [place] [address] PCP - [facility]01/13/24 Brooklynn Yeager NP [address] [place] [address] Nurse PractitionerFaWellstar [facility]05/15/23 Brooklynn Yeager NP [address] [place] [address] Nurse PractitionerP[facility]mont [facility] Hospital09/26/23Team MemberRelationshipSpecialtyStart DateEnd Date Eusebio Schneider MD [address] [place] [address] PCP - [facility]09/26/23 Brooklynn Yeager NP [address] [place] [address] PCP - [facility]01/13/24 Brooklynn Yeager NP [address] [place] [address] Nurse PractitionerP[facility]mont [facility]05/15/23 Brooklynn Yeager NP [address] [place] [address] Nurse PractitionerPiedmont [facility] Hospital09/26/23Team MemberRelationshipSpecialtyStart DateEnd Date Eusebio Schneider MD [address] [place] [address] PCP - [facility]09/26/23 Brooklynn Yeager NP [address] [place] [address] PCP - [facility]01/13/24 Brooklynn Yeager NP [address] [place] [address] Nurse PractitionerPiedmont [facility]05/15/23 Brooklynn Yeager NP [address] [place] [address] Nurse PractitionerPiedmont [facility] Hospital09/26/23Team MemberRelationshipSpecialtyStart DateEnd Date Brooklynn Yeager BULB ASSEMBLER-[employer] PCP - [facility]09/04/23Team MemberRelationshipSpecialtyStart Date End Date Eusebio Schneider MD [address] [place] [address] PCP - [facility]09/26/23 Brooklynn Yeager NP [address] [place] [address] PCP - [facility]01/13/24 Brooklynn Yeager NP [address] [place] [address] Nurse PractitionerPiedmont [facility]05/15/23 Brooklynn Yaeger NP [address] [place] [address] Nurse PractitionerPiedmont Mountainside Hospital09/26/23 Team Status: Active Member Role Status Dates Brooklynn Yeager NP-[place] Primary Care Provider Active Team Status: Active Member Role Status Dates Brooklynn Yeager NP-[place] Primary Care Provider Active Start: April 23, 2025 Julio Morales ProviderActiveStart: April 23, 2025 Team Status: Inactive Member Role Status Dates Brooklynn Yeager NP-[place] Primary Care Provider Active Start: April 28, 2025 End: April 28, 2025Brooklynn Yeager NP-CAttending ProviderActiveStart: April 28, 2025 End: April 28, 2025Team MemberRelationshipSpecialtyStart DateEnd Date Brooklynn Yeager APRN - [facility] [address] [place] [address] PCP - GeneralNurse Mnpmxtyhwqau05/16/25 Goals (unrecognized section and content) Goals may [...] encounterGoals may be documented in an alternate section Reason for Visit (unrecogniz ed section and content) BgepvwYgeevoauKbobog-gfOqphywKovtomnnXltexl-daBueihgAatkynyfXboafdot PSAReason CommentsFollow-upReview NM Bone ScanReasonCommentsMed Refill FOR RECORDS PERTAINING TO PATIENTS WHO [...] BE BASED ON THE PRIMARY CLINICAL RECORDS. [facility] [employer] [facility]. provides no warranty or guarantee of the accuracy or completeness of information in this document.
--- OUTSIDE RECORDS SUMMARY | 2025-06-06 19:45 | XMS_ITS | Clinical Summary ---
Author Organization [facility] Address [address] [place] [address] Care Team Providers Care Comb Fixer Name Role Phone Unavailable Primary Care Provider Unavailabl e Social History Tobacco UseTypesPacks/DayYears UsedDateSmoking Tobacco: Never AssessedSex and Gender InformationValueDate RecordedSex Assigned at BirthNot on fileLegal Sex Male01/11/2022 12:12 AM EDTGender IdentityNot on fileSexual OrientationNot on file Last Filed Vital Signs Vital SignReadingTime TakenCommentsBlood Psxoysvo274/6802 11:08 AM EST Vlsvp836509/08/2018 11:08 AM ESTTemperature--Respiratory Rate--Oxygen Saturation 97%09/08/2018 11:08 AM ESTInhaled Oxygen Concentration--Bkaheh280 kg (243 lb) 09/08/2018 11:02 AM VFGNlxypq019 cm (6' 2 )09/08/2018 11:02 AM ESTBody Mass Index31. 11:02 AM EST Plan of Treatment Not on file
--- OUTSIDE RECORDS SUMMARY | 2025-06-06 19:45 | XMS_ITS | Clinical Summary ---
Author Organization [employer] tem Address [id number] [address] [place] [address] Care Team Providers Care Drapery Counselor Name Role Phone Brooklynn Yeager APRN-HEDIS COORDINATOR Primary Care Provider Allergies Active AllergyReactionsCriticalityNoted DateCommentsHydrocodoneGI Disturbance 07/17/2023 constipation Hydrocodone-Zzmnynuapwlff56/21/2024 Severe constipation Medications MedicationSigDispense QuantityRefillsLast FilledStart DateEnd DateStatus citalopram (CeleXA) 20 mg tablet Take 1 tablet (20 mg total) by mouth in the morning.Active lamoTRIgine (LaMICtal) 100 mg tablet Take 1 tablet (100 mg total) by mouth in the morning.4Active atorvastatin (LIPITOR) 10 mg tablet Take 1 tablet (10 mg total) by mouth in the morning.4Active cholecalciferol, vitamin D3, (VITAMIN D3) 5,000 units capsule Take 1 capsule (5,000 Units total) by mouth in the morning.5Active Active Problems ProblemNoted DateDiagnosed DateGross xyeoxuujm90/19/2024Elevated PSA09/04/2023 Overview (08/19/2024): ==== 08/19/2024 ==== last PSA [...] otherwise. He is happy with thecurrent state. Assessment & Plan (01/29/2024 4:46 PM EDT): He can stop his Flomax as well as finasteride Malignant neoplasm of overlapping sites of ximnlyu2209/04/2023 Overview (11/13/2023): ==== 11/13/2023 ==== #### status [...] system. The patient acknowledges this and agrees. Immunizations ImmunizationAdministration DatesNext DueZoster Vaccine Paslpfvyczf10/28/2023, 05/31/2022 Social History Tobacco UseTypesPacks/DayYears UsedDateSmoking Tobacco: Every DayCigarettes Smokeless Tobacco: Never Tobacco Cessation:Ready to Q uit: Not Asked; Counseling Given: Not Answered Alcohol UseStandard Drinks/WeekCommentsNever0 (1 standard drink = 0.6 oz pure alcohol)[facility] UtilitiesAnswerDate RecordedIn the past 12 months has the [employer], [employer], or water [employer] threatened to shut off services in your home?No 12/01/2023UDIT-CAnswerDate RecordedQ1: How often do you have a drink containing alcohol?Monthly or less12/01/2023Q2: How many drinks containing alcohol do you have on a typical day when you are drinking?1 or Q3: How often do you have six or more drinks on one occasion?Never12/01/2023HQ-2AnswerDate Recorded Total Kwifr285RAPARE - TransportationAnswerDate RecordedIn the past 12 months, has lack of transportation kept you from medical appointments or from getting medications?No12/01/2023In the past 12 months, has lack of transportation kept you from meetings, work, or from getting things needed for daily living?No12/01/2023Housing InstabilityAnswerDate RecordedAre you worried or concerned that in the next two months you may not have stable housing that you own, rent or stay in as a part of a household?No12/01/2023Hunger Screening AnswerDate RecordedWithin the past 12 months we worried whether our food would run out before we got money to buy more.Never True01/29/2024Within the past 12 months the food we bought just didn't last and we didn't have money to get more. Never True01/29/2024Sex and Gender InformationValueDate RecordedSex Assigned at BirthNot on fileLegal HtjLwue9508/06/2023 12:07 PM ESTGender IdentityNot on file Sexual OrientationNot on file Last Filed Vital Signs Vital SignReadingTime TakenCommentsBlood Gkzjbprn93/7502 4:21 PM EST Joiht969808/19/2024 4:21 PM EJOAghtsufrzpj98.5 ??C (97.7 ??F)12/02/2023 1:18 PM EDTRespiratory Wkss840412/02/2023 1:18 PM EDTOxygen Szonpxbbak42%12/02/2023 1:18 PM EDTInhaled Oxygen Concentration--Iwsucv954.4 kg (250 lb)08/19/2024 4:21 PM BPTVtrtot761.2 cm (6' 2.5 )08/19/2024 4:21 PM ESTBody Mass Index31.67008/19/2024 4:21 PM EST Plan of Treatment DateTypeDepartmentCare Team (Latest Contact Info)Uwbiptewcaw94/01/2025 9:00 AM ESTHospital Encounter [address] [address] Godwin Reed MD [address] [place] [address] 06/14/2025 9:00 AM EST - 06/14/2025 9:30 [address] [address] Godwin Reed MD [address] [place] [address] CYSTOSCOPY [19200 (CPT??)]08/23/2025 1:45 PM ESTOffice Visit [facility] [address] [place] [address] [place] [address] Godwin Reed MD [facility] [place] [address] NamePriorityAssociated DiagnosesDate/TimeCYSTOSCOPY Malignant neoplasm of overlapping sites of bladder (CMS-HCC) 06/14/2025 9:00 AM ESTHealth MaintenanceDue DateLast DoneCommentsTobacco Leavtoxlka06/14/1970Adult BMI Follow Up Plan12/27/1987DTaP,Tdap and Td Vaccines (1 - Tdap)1988Depression Yyhtzywkl20/OVID-19 Vaccine ( - 2024- season)/08/2021, 11/10/2020, 10/19/2020Influenza Vaccine 03/15/2025dult BMI Vrvdiraic46/11/2024Tobacco Jjscbxxgq15/18/2026 12/30/2024Zoster (Shingles) UjylgksAaxidkewh35/28/2023, 05/31/2022 Goals GoalPatient Goal TypeAssociated ProblemsRecent ProgressPatient-Stated?Author Autogenerated Goal Care PlanAutogenerated ProblemNoPotts, Natasha Medical Devices Not on file Additional Health Concerns Active ProblemsNoted DateDiagnosed DateAutogenerated Enincvh5104/28/2025 Insurance Advance Directives * Full Code (Latest Code Status on File) Date ActivatedDate InactivatedComments5/ 12:29 PM12/02/2023 5:55 PM Care Teams Team MemberRelationshipSpecialtyStart DateEnd Date Brooklynn Yeager, CATALOG LIBRARY ASSISTANT-HEDIS COORDINATOR PCP - GeneralNurse Practitioner09/04/23
--- OUTSIDE RECORDS SUMMARY | 2025-06-06 19:45 | XMS_ITS | Patient Health Record ---
Author Organization [facility] Address [address] [place] [address] Care Team Providers Care Supply Controller Name Role Phone Raquel Chu Primary Care Provider Sheppard Cynthia Unavailable [phone] Rima Mederos Unavailable [phone] Reason For Referral No Information Encounters Encounter Location Date Provider Diagnosis [facility] [address] [place] [address] 04/15/2025 Cynthia Sheppard Dental caries on pit and fissure surface penetrating into dentin K02.52 and Acute gingivitis, plaque induced K05.00 [facility] [address] [place] [address] 07/17/2024 Cynthia Sheppard Acute gingivitis, plaque induced K05.00 ; Other dental procedure status Z98.818 and Encounter for dental examination and cleaning with abnormal findings Z01.21 Assessments Encounter Date Diagnosis (ICD Code) Assessment Notes Treatment Notes Treatment Clinical Notes Section Notes 07/17/2024 Acute gingivitis, plaque induced (ICD-10 - K05.00) 04/15/2025Dental caries on pit and fissure surface penetrating into dentin (ICD- 10 - K02.52)04/15/2025ute gingivitis, plaque induced (ICD-10 - K05.00) 07/17/2024Other dental procedure status (ICD-10 - Z98.818)07/17/2024Encounter for dental examination and cleaning with abnormal findings (ICD-10 - Z01.21) Plan Of Treatment Next Appt Details Provider Name:Cynthia Sheppard , 10/29/2025 10:00:00 AM, [address], [place], [address], Insurance Providers Payer Name Payer Address Payer Phone Subscriber Number Group Number Insured Name Patient Relationship to Insured Coverage Start Date Coverage End Date zDental UHC [place] Medicaid [address] [place] [address] [id number] LUKE ABREU Self - patient is the insured 3 4 Dental UHC [employer] [place] Medicaid [address] [place] [address] [id number] RUBEN ABREUelf - patient is the [id number] 2023ental Wrap [facility] [address] [place] [id number], CARLOSSelf - patient is the [id number] Wrap [facility] [address] [place] [id number], CARLOSSelf - patient is the [id number] 2023
--- OUTSIDE RECORDS SUMMARY | 2025-06-06 19:45 | XMS_ITS | Encounter Summary ---
Author Organization [facility] [id number] [facility] tem Address [facility] [place] [facility] [id number] [address] [place] [address] Care Team Providers Care Senior Web Services Developer Name Role Phone Brooklynn Yeager APRN-PEDIATRIC NURSE Primary Care Provider Encounter Details DateTypeDepartmentCare Team (Latest Contact Info)Bxlrwgkoacp10/18/2025Telephone [facility] [address] [place] [phone] Godwin Reed MD [address] [place] [address] Social History Tobacco UseTypesPacks/DayYears UsedDateSmoking Tobacco: Every DayCigarettes Smokeless Tobacco: NeverAlcohol UseStandard Drinks/WeekCommentsNever0 (1 standard drink = 0.6 oz pure alcohol)[facility] UtilitiesAnswerDate RecordedIn the past 12 months has the [employer], gas, oil, or water [employer] threatened to shut off services in your home?No4AUDIT-CAnswerDate RecordedQ1: How often do you have a drink containing alcohol?Monthly or less12/01/2023Q2: How many drinks containing alcohol do you have on a typical day when you are drinking?1 or 2 12/01/2023Q3: How often do you have six or more drinks on one occasion?Never 12/01/2023HQ-2AnswerDate RecordedTotal Ydsgx013RAPARE - Transportation AnswerDate RecordedIn the past 12 months, has lack [...] stay in as a part of a household?No 12/01/2023Hunger ScreeningAnswerDate RecordedWithin the past 12 months we worried whether our food would run out before we got money to buy more.Never True01/29/2024Within the past 12 months the food we bought just didn't last and we didn't have money to get more.Never True01/29/2024Sex and Gender Information ValueDate RecordedSex Assigned at BirthNot on fileLegal OxtDsyx9008/06/2023 12:07 PM ESTGender IdentityNot on fileSexual OrientationNot on filedocumented as of this encounter Miscellaneous Notes * Telephone Encounter - Godwin Reed MD - 12/30/2024 8:30 AM EDT Cysto local [facility] 6 months diagnosis history urothelial carcinoma * Telephone Encounter - Yoselyn Newton - 12/30/2024 8:30 AM EDT Spoke to pt [facility] 06/30/2025 @ 915am arrive 2 815am Pt aware info sent to [facility] and mailed 04/28/2025 * Telephone Encounter - Yoselyn Newton - 12/30/2024 8:30 AM EDT PT LMOM 05/28/2025 SPOKE TO PT PT WANTED TO MOVE CYSTO UP PT AWARE [facility] LOCATION [facility] 06/14/2025 @ 9AM ARRIV E@ 8AM PT AWARE VERBAL 05/31/2025 documented in this encounter Plan of Treatment DateTypeDepartmentCare Team (Latest Contact Info)Gcpyqwbuwzp25/01/2025 9:00 AM ESTHospital Encounter [address] [address] Godwin Reed MD [address] [place] [phone] 06/14/2025 9:00 AM EST - 06/14/2025 9:30 AM [address]Sur[address] [address] Godwin Reed MD [address] [place] [address] CYSTOSCOPY [83000 (CPT??)]08/23/2025 1:45 PM ESTOffice Visit [facility] [address] [place] [address] [place] [address] Godwin Reed MD [address] [place] [address] NamePriorityAssociated DiagnosesDate/TimeCYSTOSCOPY Malignant neoplasm of overlapping sites of bladder ([facility]) 06/14/2025 9:00 AM ESTdocumented as of this encounter Goals GoalPatient Goal TypeAssociated ProblemsRecent ProgressPatient-Stated?Author Autogenerated Goal Care PlanAutogenerated ProblemNoPotts, Elizabethdocumented as of this encounter Visit Diagnoses Not on filedocumented in this encounter Additional Health Concerns Active ProblemsNoted DateDiagnosed DateAutogenerated Viehtgm7504/28/2025ssessment Noted TimePHQ-9 Depression Total Score: 6:35 PM EDTdocumented as of this encounter Care Teams Team MemberRelationshipSpecialtyStart DateEnd Date Brooklynn Yeager, COMMUNITY HEALTH REPRESENTATIVE-PEDIATRIC NURSE PCP - GeneralNurse Practitioner09/04/23documented as of this encounter
--- OUTSIDE RECORDS SUMMARY | 2025-06-06 19:45 | XMS_ITS | Clinical Summary ---
Author Organization [facility] Address [address] [facility] [facility], [address] [place] [address] Care Team Providers Care Art Psychotherapist Name Role Phone Brooklynn Yeager APRN - ROSA Primary Care Provide r Encounters DateTypeDepartmentCare SgogCcfwdvutrbe72/16/2025 8:06 AM EDT - 04/29/2025 11:59 PM EDTHospital Encounter [place] [phone] Discharge Disposition: Home or Self Carefrom Last 3 Months Social History Tobacco UseTypesPacks/DayYears UsedDateSmoking Tobacco: Never AssessedSex and Gender InformationValueDate RecordedSex Assigned at BirthNot on fileLegal Sex Male04/29/2025 7:52 AM EDTGender IdentityNot on fileSexual OrientationNot on file Plan of Treatment Health MaintenanceDue DateLast DoneCommentsDepression Sqhtbp9012/26/1981HIV screen 1984Hepatitis C mgiqvq4412/27/1987DTaP/Tdap/Td vaccine (1 - Tdap)1988 Hepatitis B vaccine (1 of 3 - 19+ 3-dose series)12/26/19880555Atmbiziadea33/14/2015 Colorectal Cancer Bhvzod6912/26/2014FIT/FOBT: Average risk2014Fecal-DNA (Cologuard): Average risk2014Sigmoidoscopy/CT gvfhsexgpxva47/14/2015 Pneumococcal 50+ years Vaccine (1 of 1 - PCV)12/27/2019Flu vaccine (#1) 5COVID-19 Vaccine ( season)03/15/20258010Tvakii56/16/2030 04/29/2025Shingles abgodnnUvgljajfb98/28/2023, 05/31/2022Hepatitis A vaccineAged OutNo longer eligible based on patient's age to complete this topicHib vaccine Aged OutNo longer eligible based on patient's age to complete this topic Meningococcal (ACWY) vaccineAged OutNo longer eligible based on patient's age to complete this topicMeningococcal B vaccineAged OutNo longer eligible based on patient's age to complete this topicPolio vaccineAged OutNo longer eligible based on patient's age to complete this topic Procedures Procedure NamePriorityDate/TimeAssociated DiagnosisCommentsURINALYSIS WITH NPXLCJPPLXRTwgtdjf11/16/2025 8:07 AM EDT PSA FMZDFAGTXGibvvtj44/16/2025 8:07 AM EDT LIPID QRVKOXwpifne00/16/2025 8:07 AM EDT HEMOGLOBIN M9IVoflemu10/16/2025 8:07 AM EDT COMPREHENSIVE METABOLIC UEWWAYzdzdpv11/16/2025 8:07 AM EDT UQZunqolk31/16/2025 8:07 AM EDT CBC WITH AUTO CEOXIMYZWVTNNnqiqwf06/16/2025 8:07 AM EDT from Last 3 Months Results * PSA Screening (04/29/2025 8:07 AM EDT)ComponentValueRef RangeTest Method Analysis TimePerformed AtPathologist SignaturePSA3.320.00 - 4.00 ng/mL 04/29/2025 8:07 AM EDTMERCY LABORATORIESComment: The Chhaya ECLIA assay is used. ??Results obtained with different assay methods cannot be used interchangeably. Specimen (Source)Anatomical Location / LateralityCollection Method / Volume Collection TimeReceived Time04/29/2025 8:07 AM EDT1 8:08 AM EDT Narrative Authorizing ProviderResult TypeResult StatusBrooklynn Hagan Aichholz FINANCING ANALYST - NPCHEMISTRY ORDERABLESFinal ResultPerforming OrganizationAddressCity/State/ZIP CodePhone Number [facility] [address] [place] [address], [facility] [phone] [place] [id number], [facility] [phone] * CBC with Auto Differential (04/29/2025 8:07 AM EDT)ComponentValueRef RangeTest MethodAnalysis TimePerformed AtPathologist SignatureWBC6.53.5 - 11.3 k/uL 04/29/2025 8:07 AM [facility] LABRBC5.244.21 - 5.77 m/uL 04/29/2025 8:07 AM [facility] ZVARayjwwuflj97.013.0 - 17.0 g/dL04/29/2025 8:07 AM [facility] UARGsacenqpcm65.5 40.7 - 50.3 %04/29/2025 8:07 AM [facility] LQJTOT32.682.6 - 102.9 fL04/29/2025 8:07 AM [facility] IPXSKV71.525.2 - 33.5 pg04/29/2025 8:07 AM [facility] MFOWJZK28.028.4 - 34.8 g/dL04/29/2025 8:07 AM [facility] XMVRPB42.111.8 - 14.4 %04/29/2025 8:07 AM [facility] QWQVsnnmhdob902307 - 453 k/uL04/29/2025 8:07 AM [facility] LABMPV9.38.1 - 13.5 fL04/29/2025 8:07 AM [facility] LABNRBC Automated0.00.0 per 100 WBC04/29/2025 8:07 AM [facility] LABNeutrophils % 6136 - 65 %04/29/2025 8:07 AM [facility] LABLymphocytes % 2724 - 43 %04/29/2025 8:07 AM [facility] LABMonocytes %83 - 12 %04/29/2025 8:07 AM [facility] LABEosinophils %31 - 4 %04/29/2025 8:07 AM [facility] LABBasophils %10 - 2 % 04/29/2025 8:07 AM [facility] LABImmature Granulocytes %0 0 %04/29/2025 8:07 AM [facility] LABNeutrophils Absolute 4.001.50 - 8.10 k/uL04/29/2025 8:07 AM [facility] Lymphocytes Absolute1.721.10 - 3.70 k/uL04/29/2025 8:07 AM [facility] LABMonocytes Absolute0.540.10 - 1.20 k/uL04/29/2025 8:07 AM [facility] LABEosinophils Absolute0.170.00 - 0.44 k/uL 04/29/2025 8:07 AM [facility] LABBasophils Absolute0.05 0.00 - 0.20 k/uL04/29/2025 8:07 AM [facility] LABImmature Granulocytes Absolute<0.030.00 - 0.30 k/uL04/29/2025 8:07 AM [facility] LABSpecimen (Source)Anatomical Location / LateralityCollection Method / VolumeCollection TimeReceived Time04/29/2025 8:07 AM EDT1 8:08 AM EDT Narrative Authorizing ProviderResult TypeResult StatusBrooklynn Yeager FINANCING ANALYST - NPHEMATOLOGY ORDERABLESFinal ResultPerforming OrganizationAddressCity/State/ZIP CodePhone Number [facility] [address] [place] [address], [facility] [phone] * (ABNORMAL) Urinalysis with Microscopic (04/29/2025 8:07 AM EDT)ComponentValue Ref RangeTest MethodAnalysis TimePerformed AtPathologist SignatureColor, UA YkuaihDvhbhz70/16/2025 8:07 AM [facility] LABTurbidity UA WixekQjzfv15/16/2025 8:07 AM [facility] LABGlucose, Ur NEGATIVENEGATIVE mg/dL04/29/2025 8:07 AM [facility] Bilirubin, UleioENITLWDHQOWXVKDY09/16/2025 8:07 AM [facility] LABKetones, UrineNEGATIVENEGATIVE mg/dL04/29/2025 8:07 AM [facility] LABSpecific Hamer, UA1.025(H)1.010 - 1.9650804/29/2025 8:07 AM [facility] LABUrine DjoSRKUWHBAGFOGWDFT67/16/2025 8:07 AM [facility] LABpH, Urine6.05.0 - 9. 8:07 AM [facility] LABProtein, UANEGATIVENEGATIVE mg/dL 04/29/2025 8:07 AM [facility] LABUrobilinogen, Urine Normal0.0 - 1.0 EU/dL04/29/2025 8:07 AM [facility] Nitrite, DikupJVFTKZDOFJLQGRDC92/16/2025 8:07 AM [facility] LABLeukocyte Esterase, QcqeuTLEITMDDMGMXLUXD46/16/2025 8:07 AM [facility] LABWBC, UA2 TO 50 - 5 /HPF04/29/2025 8:07 AM [facility] LABRBC, UA0 TO 20 - 2 /HPF04/29/2025 8:07 AM [facility] LABEpithelial Cells, UA0 TO 20 - 5 /HPF04/29/2025 8:07 AM [facility] LABBacteria, UATRACE(A)None04/29/2025 8:07 AM [facility] LABMucus, UA1+(A)None04/29/2025 8:07 AM [facility] LABSpecimen (Source)Anatomical Location / LateralityCollection Method / VolumeCollection TimeReceived Time04/29/2025 8:07 AM EDT1 8:08 AM EDT Narrative Authorizing ProviderResult TypeResult Saranya Hagan Wandajermainegavin FINANCING ANALYST - NPURINE ORDERABLESFinal ResultPerforming OrganizationAddressCity/State/ZIP CodePhone Number [facility] [address] [place] [address] * Hemoglobin A1C (04/29/2025 8:07 AM EDT)ComponentValueRef RangeTest Method Analysis TimePerformed AtPathologist SignatureHemoglobin A1C4.74.0 - 6.0 % 04/29/2025 8:07 AM EDTMERCY LABORATORIESEstimated Avg Excqzey51vc/dL04/29/2025 8:07 AM EDTMERCY LABORATORIESComment: The ADA and AACC recommend providing the estimated average glucose result to permit better patient understanding of their HBA1c result. Specimen (Source)Anatomical Location / LateralityCollection Method / Volume Collection TimeReceived Time04/29/2025 8:07 AM EDT1 8:08 AM EDT Narrative Authorizing ProviderResult TypeResult StatusBrooklynn Hagan Wandajermainegavin FINANCING ANALYST - NPCHEMISTRY ORDERABLESFinal ResultPerforming OrganizationAddressCity/State/ZIP CodePhone Number [facility] [address] [place] [address] [phone] * CK (04/29/2025 8:07 AM EDT)ComponentValueRef RangeTest MethodAnalysis Time Performed AtPathologist SignatureTotal AN2161 - 308 U/L1 8:07 AM EDT [facility] LABSpecimen (Source)Anatomical Location / LateralityCollection Method / VolumeCollection TimeReceived Time04/29/2025 8:07 AM EDT1 8:08 AM EDT Narrative Authorizing ProviderResult TypeResult StatusLisa J. Wandajermainegvain FINANCING ANALYST - NPCHEMISTRY ORDERABLESFinal ResultPerforming OrganizationAddressCity/State/ZIP CodePhone Number [facility] [address] [place] [address], [facility] [phone] * Lipid Panel (04/29/2025 8:07 AM EDT)ComponentValueRef RangeTest MethodAnalysis TimePerformed AtPathologist SignatureCholesterol, Uymsv7763 - 199 mg/dL 04/29/2025 8:07 AM EDTMERCY LABORATORIESComment: Cholesterol Guidelines: <200 Desirable 200-240 ??Borderline >240 Undesirable HDL43>40 mg/dL04/29/2025 8:07 AM EDTMERCY LABORATORIESComment: HDL Guidelines: <40 Undesirable 40-59 ?Borderline >59 Desirable LDL Ldbysklvcbw777 - 100 mg/dL04/29/2025 8:07 AM EDTMERCY LABORATORIESComment: LDL Guidelines: <100 Desirable 100-129 ?? Near to/above Desirable 130-159 ?? Borderline >159 Undesirable Direct (measured) LDL and calculated LDL are not interchangeable tests. Chol/HDL Ratio3.4<5.010/ 8:07 AM EDTMERCY CDLOVTLLHJUVHoqwpvvelxmlo77<150 mg/dL04/29/2025 8:07 AM EDTMERCY LABORATORIESComment: Triglyceride Guidelines: <150 Desirable 150-199 ??Borderline 200-499 ??High >499 Very high Based on AHA Guidelines for fasting triglyceride, April 2012. BYLN122 - 30 mg/dL04/29/2025 8:07 AM EDTMERCY LABORATORIESSpecimen (Source) Anatomical Location / LateralityCollection Method / VolumeCollection Time Received Time04/29/2025 8:07 AM EDT1 8:08 AM EDT Narrative Authorizing ProviderResult TypeResult Saranya Hagan Wandajermainegavin FINANCING ANALYST - NPCHEMISTRY ORDERABLESFinal ResultPerforming OrganizationAddressCity/State/ZIP CodePhone Number [facility] [address] [place] [address], [facility] [phone] [employer] [address] [place] [address], [facility] [phone] * (ABNORMAL) Comprehensive Metabolic Panel (04/29/2025 8:07 AM EDT)Component ValueRef RangeTest MethodAnalysis TimePerformed AtPathologist SignatureSodium 902767 - 145 mmol/L1 8:07 AM [facility] Potassium4.33.7 - 5.3 mmol/L1 8:07 AM [facility] PHFXckdqlee05575 - 107 mmol/L1 8:07 AM [facility] LEXWL28471 - 31 mmol/L1 8:07 AM [facility] LABAnion Gap6(L)9 - 16 mmol/L1 8:07 AM [facility] DFOGmwgjjw447(H)74 - 99 mg/dL04/29/2025 8:07 AM [facility] YYJXHC378 - 20 mg/dL04/29/2025 8:07 AM [facility] LABCreatinine1.10.70 - 1.20 mg/dL04/29/2025 8:07 AM [facility] LABEst, Glom Filt Rate84>60 mL/min/1.92w21404/29/2025 8:07 AM [facility] LABComment: ? These results are not intended for use in patients <18 years of age. ? eGFR results are calculated without a race factor using the 2020 CKD-EPI equation. Careful clinical correlation is recommended, particularly when comparing to results calculated using previous equations. The CKD-EPI equation is less accurate in patients with extremes of muscle mass, extra-renal metabolism of creatine, excessive creatine ingestion, or following therapy that affects renal tubular secretion. BUN/Creatinine Ytlev927 - 8:07 AM [facility] LABCalcium8.78.6 - 10.4 mg/dL04/29/2025 8:07 AM [facility] LABTotal Protein6.66.6 - 8.7 g/dL04/29/2025 8:07 AM [facility] LABAlbumin3.93.5 - 5.2 g/dL04/29/2025 8:07 AM [facility] LABAlbumin/Globulin Ratio1.51.0 - 2.510 8:07 AM [facility] LABTotal Bilirubin0.60.00 - 1.20 mg/dL04/29/2025 8:07 AM EDT [facility] LABAlkaline Alwdcqswxqd1391 - 129 U/L1 8:07 AM [facility] POYFHR5671 - 50 U/L1 8:07 AM [facility] TKHVNP3823 - 50 U/L1 8:07 AM [facility] LABSpecimen (Source)Anatomical Location / Laterality Collection Method / VolumeCollection TimeReceived Time04/29/2025 8:07 AM EDT 04/29/2025 8:08 AM EDT Narrative Authorizing ProviderResult TypeResult Saranya Yeager FINANCING ANALYST - NPCHEMISTRY ORDERABLESFinal ResultPerforming OrganizationAddressCity/State/ZIP CodePhone Number [facility] [address] [phone] from Last 3 Months Insurance Care Teams Team MemberRelationshipSpecialtyStart DateEnd Date Brooklynn Yeager APRN - RAPID TRANSIT OPERATOR [address] [place] [address] PCP - GeneralNurse Hrkkxgllkxie69/16/25
[2025-06-06] MEDS: PREDNISONE 20 MG TABLET 40 MG PO (19:55)
[2025-06-06] MEDS: CLINDAMYCIN HCL 150 MG CAPSULE 450 MG PO (19:55)
== END 2025-06-06 20:11 | disposition home or self-care (01) ==
PROVIDERS: Emergency Provider Emergency Medicine; PCP Nurse Practitioner
DX: J02.9 Acute pharyngitis, unspecified (principal); F17.210 Nicotine dependence, cigarettes, uncomplicated
CPT/HCPCS: 87070; 87880; 99283; J7512